=== PATIENT | female | born 1990 | race American Indian/Alaskan Native ===

== ENCOUNTER 2021-09-24 12:05 | Inpatient (IN) | payer SELFPAY ==
--- NOTE | 2021-09-24 14:33 | Emergency Department Report ---
ED Back Pain/Injury HPI - General Chief Complaint: Abdominal Pain Stated Complaint: ABD PAIN,KIDNEY STONE Time Seen by Provider: 09/24/21 14:24 Source: patient Limitations: No Limitations - History of Present Illness Initial Comments: 31-year-old -Beninese female presents to the emergency room reporting she has a kidney stone. Patient complains of allover body aches, headache, chills, lower back pain the worst nausea vomiting x1 day. Patient has not recently checked for Covid last Covid negative test was 3 weeks ago. Patient is not vaccinated. She denies any hematuria. She has a past medical history of hypertension is currently on hydrochlorothiazide 25 mg. She has no known drug allergies. MD Complaint: back pain Onset/Timin -: days(s) Similar Symptoms Previously: Yes (when she has a kidney stone. ) Severity scale (0 -10): 9 Quality: sharp, stabbing Consistency: constant Improves With: none Worsens With: movement Associated Symptoms: headaches, abdominal pain, nausea/vomiting, other (Myalgia) - Related Data Allergies Allergy/AdvReac Type Severity Reaction Status Date / Time No Known Allergies Allergy Verified 09/24/21 12:21 ED Review of Systems ROS: Stated complaint: ABD PAIN,KIDNEY STONE Other details as noted in HPI Comment: All other systems reviewed and negative Gastrointestinal: abdominal pain, nausea, vomiting ED Physical Exam - General Limitations: No Limitations General appearance: alert, in distress - Head Head exam: Present: atraumatic, normocephalic - Eye Eye exam: Present: normal appearance - ENT ENT exam: Present: mucous membranes moist - Neck Neck exam: Present: normal inspection - Respiratory Respiratory exam: Absent: respiratory distress, accessory muscle use - Cardiovascular Cardiovascular Exam: Present: tachycardia - GI/Abdominal GI/Abdominal exam: Present: soft, tenderness (Right lower quadrant), guarding, normal bowel sounds - Extremities Exam Extremities exam: Present: normal inspection, full ROM - Back Exam Back exam: Present: normal inspection - Neurological Exam Neurological exam: Present: alert, oriented X3, normal gait - Psychiatric Psychiatric exam: Present: normal affect, normal mood - Skin Skin exam: Present: warm, dry, intact, normal color. Absent: rash ED Course Vital Signs 09/24/21 12:20 Temperature 98.0 F Pulse Rate 118 H Respiratory 18 Rate Blood Pressure 109/71 O2 Sat by Pulse 99 Oximetry - Consultations Consultation #1: 02/18/22 18:[address] Huddleston regarding patient's condition of having diverticulitis with abscess. She states place patient n.p.o. recheck vitals start her on Zosyn admit her to the hospital consult her in the system. Consultation #2: 09/24/21 18:[address] Howell hospitalist regarding patient needing to be admitted. ED Medical Decision Making - Lab Data Result diagrams: 09/24/21 14:58 09/24/21 14:58 - Radiology Data Radiology results: report reviewed [facility] [address] [place] [address] Cat Scan Report Signed Patient: TYREE DE LA TORRE MR#: [id number] : 1990 Acct:[id number] Age/Sex: 31 / F ADM Date: 09/24/21 Loc: ED Attending Dr: Ordering Physician: RICH MARION Date of Service: 09/24/21 Procedure(s): CT abdomen pelvis w con Accession Number(s): [id number] cc: RICH MARION CT ABDOMEN AND PELVIS WITH CONTRAST INDICATION / CLINICAL INFORMATION: abd pain. TECHNIQUE: Axial CT images were obtained through the abdomen and pelvis after 95 mL Omnipaque [address] scans at this location are performed using CT dose reduc tion for ALARA by means of automated exposure control. COMPARISON: None available. FINDINGS: LOWER CHEST: No significant abnormality. LIVER: Mildly enlarged and hypodense GALLBLADDER: No significant abnormality. BILE DUCTS: No significant abnormality. PANCREAS: No significant abnormality. SPLEEN: No significant abnormality. ADRENALS: Right adrenal mass measuring 3.6 x 3.2 x 2.9 cm and 36 Hounsfield units. Left adrenal appears normal. RIGHT KIDNEY / URETER: 2 mm nonobstructing intrarenal stone. No ureteral stone or hydronephrosis. LEFT KIDNEY / URETER: No significant abnormality. STOMACH / SMALL BOWEL: No significant abnormality. COLON: Colonic diverticulosis. There is moderate thickening and pericolonic inflammation involving the descending colon characteristic of diverticulitis. There is a peridiverticular abscess along the posterior lateral portion of the distal descending colon adjacent to the pelvic sidewall. This collection measures 3.5 x 2.3 x 4.7 cm best seen on axial series 2 image 112 and coronal series 601 image 62. There is moderate strandy inflammation along the left retroperitoneum along the lateroconal fascia. APPENDIX: Not visualized. PERITONEUM: No free fluid. No free air. No fluid collection. LYMPH NODES: No significant adenopathy. AORTA / ARTERIES: No significant abnormality. IVC / VEINS: No significant abnormality. URINARY BLADDER: No significant abnormality. REPRODUCTIVE ORGANS: Enlarged uterus containing several exophytic fibroids. Small physiologic cyst of the left ovary. ADDITIONAL FINDINGS: None. SKELETAL SYSTEM: No significant abnormality. IMPRESSION: 1. Distal descending colon diverticulitis with peridiverticular abscess. No free air. 2. Right adrenal mass which does not meet imaging criteria for adrenal adenoma. Follow-up CT or MRI without and with contrast using adrenal protocol is recommended. 3. Mild hepatic steatosis. 4. Right nephrolithiasis. Signer Name: Yaneli Echavarria MD Signed: 09/24/2021 5:28 PM Workstation Name: [id number] Transcribed By: DT Dictated By: Ryne Echavarria MD Electronically Authenticated By: Ryne Echavarria MD Signed Date/Time: 09/24/211727 DD/ 20 TD/TT: - Medical Decision Making 31-year-old -Ben[place] female presents to the emergency room reporting she has a kidney stone. Patient complains of allover body aches, headache, chills, lower back pain the worst nausea vomiting x1 day. Patient has not recently checked for Covid last Covid negative test was 3 weeks ago. Patient is not vaccinated. She denies any hematuria. She has a past medical history of hypertension is currently on hydrochlorothiazide 25 mg. She has no known drug allergies. CT abdomen with contrast, chest x-ray, CBC CMP urinalysis. Chest x-ray is negative, CT shows diverticulitis with abscess no free air, right nephrolithiasis, right adrenal mass, fibroids multiple. Spoke to Dr. Huddleston she agreeing to place patient on Zosyn n.p.o. repeated vitals which was 98/59 heart rate 108 temp 98.3 respirations 18 and oxygen 99% on room air. My attending Dr. Goodson came to evaluate patient as well. Critical care attestation.: If time is entered above; I have spent that time in minutes in the direct care of this critically ill patient, excluding procedure time. ED Disposition Clinical Impression: Diverticulitis, Right adrenal mass, Right nephrolithiasis, Colonic diverticular abscess Disposition: 02 [facility]ORT TERM HOSPITAL Is pt being admited?: Yes Does the pt Need Aspirin: No Condition: Stable Instructions: Abdominal Pain (ED) Referrals: PRIMARY CARE, [Primary Care Provider] - 3-5 Days Time of Disposition: 18:15
[2021-09-24] MEDS ORDERED: KETOROLAC 30 MG/1 ML INJ IV ONE (14:42)
[2021-09-24] MEDS ORDERED: ONDANSETRON 4 MG/2 ML INJ IV ONE ×2 (14:42→17:09)
[2021-09-24] MEDS ORDERED: SODIUM CHLORIDE 0.9% 1000 ML 1,000 ML IV ONE (14:42)
[2021-09-24 15:07] LABS: Hemoglobin 11.1 gm/dl (10.1-14.3); Mean Corpuscular HGB Conc 33 % (30-34); Mean Corpuscular Volume 86 fl (79-97); Platelet Count 535 K/mm3 (140-440); Red Blood Count 3.97 M/mm3 (3.65-5.03); Red Cell Distribution Width 15.1 % (13.2-15.2)
[2021-09-24 15:11] LABS: HCG Qualitative,Urine Negative (Negative)
[2021-09-24 15:32] LABS: Alanine Aminotransferase 17 units/L (7-56); Albumin 3.3 g/dL (3.9-5); BUN/Creatinine Ratio 14; Blood Urea Nitrogen 10 mg/dL (7-17); Calcium 9.1 mg/dL (8.4-10.2); Hemolysis Index 3
[2021-09-24 15:59] LABS: Bilirubin,Urine NEG (Negative); Blood,Urine NEG (Negative); Color,Urine Yellow (Yellow); Urobilinogen,Urine < 2.0 mg/dL (<2.0)
[2021-09-24] MEDS ORDERED: LACTATED RINGERS 1,000 ML IV ONE (16:29)
--- NOTE | 2021-09-24 16:55 | XRay Report ---
CHEST 2 VIEWS INDICATION / CLINICAL INFORMATION: sob, cough and rales. COMPARISON: None available. FINDINGS: SUPPORT DEVICES: None. HEART / MEDIASTINUM: No significant abnormality. LUNGS / PLEURA: No significant pulmonary or pleural abnormality. No pneumothorax. ADDITIONAL FINDINGS: No significant additional findings. IMPRESSION: 1. No acute findings. Signer Name: Yaneli Echavarria MD Signed: 09/24/2021 4:50 PM Workstation Name: [id number]
[2021-09-24] MEDS ORDERED: MORPHINE 4 MG/1 ML INJ IV ONE (17:09)
--- NOTE | 2021-09-24 17:32 | Cat Scan Report ---
CT ABDOMEN AND PELVIS WITH CONTRAST INDICATION / CLINICAL INFORMATION: abd pain. TECHNIQUE: Axial CT images were obtained through the abdomen and pelvis after 95 mL Omnipaque [address] scans at this location are performed using CT dose reduction for ALARA by means of automated exposure control. COMPARISON: None available. FINDINGS: LOWER CHEST: No significant abnormality. LIVER: Mildly enlarged and hypodense GALLBLADDER: No significant abnormality. BILE DUCTS: No significant abnormality. PANCREAS: No significant abnormality. SPLEEN: No significant abnormality. ADRENALS: Right adrenal mass measuring 3.6 x 3.2 x 2.9 cm and 36 Hounsfield units. Left adrenal appea rs normal. RIGHT KIDNEY / URETER: 2 mm nonobstructing intrarenal stone. No ureteral stone or hydronephrosis. LEFT KIDNEY / URETER: No significant abnormality. STOMACH / SMALL BOWEL: No significant abnormality. COLON: Colonic diverticulosis. There is moderate thickening and pericolonic inflammation involving th e descending colon characteristic of diverticulitis. There is a peridiverticular abscess along the po sterior lateral portion of the distal descending colon adjacent to the pelvic sidewall. This collecti on measures 3.5 x 2.3 x 4.7 cm best seen on axial series 2 image 112 and coronal series 601 image 62. There is moderate strandy inflammation along the left retroperitoneum along the lateroconal fascia. APPENDIX: Not visualized. PERITONEUM: No free fluid. No free air. No fluid collection. LYMPH NODES: No significant adenopathy. AORTA / ARTERIES: No significant abnormality. IVC / VEINS: No significant abnormality. URINARY BLADDER: No significant abnormality. REPRODUCTIVE ORGANS: Enlarged uterus containing several exophytic fibroids. Small physiologic cyst of the left ovary. ADDITIONAL FINDINGS: None. SKELETAL SYSTEM: No significant abnormality. IMPRESSION: 1. Distal descending colon diverticulitis with peridiverticular abscess. No free air. 2. Right adrenal mass which does not meet imaging criteria for adrenal adenoma. Follow-up CT or MRI w ithout and with contrast using adrenal protocol is recommended. 3. Mild hepatic steatosis. 4. Right nephrolithiasis. Signer Name: Yaneli Echavarria MD Signed: 09/24/2021 5:28 PM Workstation Name: [id number]
[2021-09-24 17:42] LABS: Mucus,Urine FEW /HPF
[2021-09-24] MEDS ORDERED: PIPERACILLIN/TAZOBACTAM 3.375 3.375 GM/50 ML BAG IV ONE (18:03)
[2021-09-24] MEDS ORDERED: ACETAMINOPHEN 325 MG TAB PO PRN (18:07)
[2021-09-24] MEDS ORDERED: HYDROmorphone 1 MG/1 ML INJ IV PRN (18:07)
[2021-09-24] MEDS ORDERED: ALBUTEROL 2.5 MG/3 ML NEBU IH PRN (18:07)
[2021-09-24] MEDS ORDERED: oxyCODONE /ACETAMINOPHEN 5-325MG TAB PO PRN (18:07)
[2021-09-24] MEDS ORDERED: SODIUM CHLORIDE 0.9% 1000 ML IV SOLN IV ONE (18:07)
--- NOTE | 2021-09-24 18:12 | History and Physical Report ---
History of Present Illness Chief complaint: I am hurting History of present illness: 31 YO Female with Obesity, Nephrolithiasis presents ED for evaluation. Patient reports "I'm hurting". Patient states that she has experienced abdominal pain, lower back pain, nausea, and multiple episodes of vomiting over the past 1 day. Patient transported to [facility] via private vehicle for further care and evaluation of the aforementioned symptoms. The patient was seen and evaluated in the emergency department. All lab and imaging studies reviewed. Patient underwent CT scan of the abdomen and pelvis and was found to have acute diverticulitis complicated by sepsis. Patient admitted to medical floor and initiated on sepsis protocol. Surgery team consulted in ED. Patient denies fever, chills, chest pain, palpitation, productive cough, skin rash, recent ill contacts, ingestion of food/water from new or different sources, or known exposure to COVID-19. No prior admission for review. No medication listed at time of admission for reconciliation. Advanced care planning conducted in ED. Past History Past Medical History: other (See HPI) Past Surgical History: No surgical history, Other (Reviewed) Social history: single. denies: smoking, alcohol abuse, prescription drug abuse Family history: hypertension Medications and Allergies Allergies Allergy/AdvReac Type Severity Reaction Status Date / Time No Known Allergies Allergy Verified 09/24/21 12:21 Active Meds: Active Medications Acetaminophen (Acetaminophen 325 Mg Tab) 650 mg PO Q4H PRN PRN Reason: Pain MILD(1-3)/Fever >100.5/BERG Acetaminophen (Acetaminophen 325 Mg Tab) 650 mg PO Q6H PRN PRN Reason: Pain, Mild (1-3) Albuterol (Albuterol 2.5 Mg/3 Ml Nebu) 2.5 mg IH Q4HRT PRN PRN Reason: Shortness Of Breath Hydromorphone HCl (Hydromorphone 1 Mg/1 Ml Inj) 0.25 mg IV Q4H PRN PRN Reason: Pain, Moderate (4-6) Hydromorphone HCl (Hydromorphone 1 Mg/1 Ml Inj) 0.5 mg IV Q8H PRN PRN Reason: Pain , Severe (7-10) Piperacillin Sod/Tazobactam Sod (Zosyn/Ns 3.375gm/50ml) 3.375 gm in 50 mls @ 100 mls/hr IV ONCE ONE; Protocol Stop: 09/24/21 18:32 Cefepime HCl (Cefepime/Ns 2 Gm/100 Ml) 2 gm in 100 mls @ 200 mls/hr IV Q8H JAZ; Protocol Metronidazole (Flagyl 500 Mg/100 Ml) 500 mg in 100 mls @ 100 mls/hr IV Q8H JAZ; Protocol Sodium Chloride (Nacl 0.9% 1000 Ml) 3,000 mls @ 135 mls/hr IV DIRECT JAZ Ondansetron HCl (Ondansetron 4 Mg/2 Ml Inj) 4 mg IV Q8H PRN PRN Reason: Nausea And Vomiting Oxycodone/Acetaminophen (Oxycodone /Acetaminophen 5-325mg Tab) 1 tab PO Q6H PRN PRN Reason: Pain, Moderate (4-6) Sodium Chloride (Sodium Chloride 0.9% 10 Ml Flush Syringe) 10 ml IV BID JAZ Sodium Chloride (Sodium Chloride 0.9% 10 Ml Flush Syringe) 10 ml IV PRN PRN PRN Reason: LINE FLUSH Sodium Chloride (Sodium Chloride 0.9% 1000 Ml Iv Soln) 2,720 ml 30 ml/kg (2720 ml) IV ONCE ONE Stop: 09/24/21 18:08 Review of Systems Constitutional: no weight loss, no weight gain, no fever, no chills Ears, nose, mouth and throat: no ear pain, no ear discharge, no decreased hearing, no nose pain, no nasal discharge Breasts: no change in shape, no swelling, no mass Cardiovascular: no chest pain, no orthopnea, no palpitations, no edema Respiratory: no cough, no cough with sputum, no excessive sputum, no hemoptysis Gastrointestinal: abdominal pain, nausea, vomiting, no BRBPR, no hematochezia, no early satiety Genitourinary Female: no pelvic pain, no flank pain, no dysuria, no urinary frequency, no urgency Rectal: no pain, no incontinence, no bleeding Musculoskeletal: low back pain, no neck stiffness, no shooting arm pain, no arm numbness/tingling Integumentary: no rash, no pruritis, no sores Neurological: no head injury, no paralysis, no weakness, no numbness, no seizures, no syncope Psychiatric: no anxiety, no memory loss, no sleep disturbances, no hypersomnia, no change in appetite, no change in libido Endocrine: no cold intolerance, no heat intolerance, no polydipsia, no nocturia Hematologic/Lymphatic: no easy bruising, no easy bleeding Allergic/Immunologic: no wheezing Exam - Constitutional Vitals: Temp Pulse Resp BP Pulse Ox 98.3 F 108 H 18 98/59 99 09/24/21 18:00 09/24/21 18:00 09/24/21 18:00 09/24/21 18:00 09/24/21 18:00 General appearance: Present: mild distress, obese - EENT Eyes: Present: PERRL ENT: hearing intact, clear oral mucosa - Neck Neck: Present: supple, normal ROM - Respiratory Respiratory effort: normal Respiratory: bilateral: CTA - Cardiovascular Rhythm: other (Tachycardia) Heart Sounds: Present: S1 & S2. Absent: rub, click - Extremities Extremities: pulses symmetrical, No edema Peripheral Pulses: abnormal (Capillary refill greater than 3.5 seconds) - Abdominal General gastrointestinal: Present: soft, non-tender, non-distended, normal bowel sounds Female genitourinary: Present: normal - Integumentary Integumentary: Present: clear, warm, dry - Musculoskeletal Musculoskeletal: gait normal, strength equal bilaterally - Psychiatric Psychiatric: appropriate mood/affect, intact judgment & insight - Neurologic Neurologic: CNII-XII intact, moves all extremities Results - Labs CBC & Chem 7: 09/24/21 14:58 09/24/21 14:58 Labs: Abnormal lab results 09/24/21 09/24/21 09/24/21 Range/Units 14:49 14:58 14:58 WBC 32.4 H (4.5-11.0) K/mm3 Plt Count 535 H (140-440) K/mm3 Sodium 134 L (137-145) mmol/L Potassium 3.5 L (3.6-5.0) mmol/L Chloride 97.6 L (98-107) mmol/L Glucose 119 H (65-100) mg/dL Total Protein 6.1 L (6.3-8.2) g/dL Albumin 3.3 L (3.9-5) g/dL U Epithel Cells (Auto) 18.0 H (0-13.0) /HPF Assessment and Plan - Patient Problems (1) Sepsis Current Visit: Yes Status: Acute Plan to address problem: Sepsis protocol: IV fluid resuscitation therapy, IV antibiotic therapy, CT scan abdomen pelvis, serial lactic acid level, blood culture, maintain mean arterial pressure greater than 65, monitor fluid balance. (2) Obesity hypoventilation syndrome Current Visit: Yes Status: Acute Plan to address problem: Balanced diet, increase physical activity discharge, incentive spirometry, pulmonary toilet. (3) Colonic diverticular abscess Current Visit: Yes Status: Acute Plan to address problem: Surgery team consulted, IV antibiotic therapy, further care and evaluation as per surgical team. (4) DVT prophylaxis Current Visit: Yes Status: Acute Plan to address problem: SCDs bilateral lower extremities while in bed (5) Advance care planning Current Visit: Yes Status: Acute Plan to address problem: Disease education conducted, care plan discussed, diagnoses discussed, prognosis discussed, patient is full code. Patient knowledges understanding and agreement with care plan, +30 minutes.
[2021-09-24 18:36] LABS: Band Neutrophils # (Manual) 3.6 K/mm3; Basophils % (Manual) 0 % (0.0-1.8); Eosinophils % (Manual) 0 % (0.0-4.3); Platelet Estimate Consistent w Auto; RBC Morphology Normal; Total Cells Counted 100
[2021-09-24] MEDS: metroNIDAZOLE/NS 500 MG/100 ML 500 MG/100 ML BAG IV SCH (18:39)
[2021-09-24] MEDS: CEFEPIME/NS 2 GM/100 ML 2 GM/100 ML BAG IV SCH (18:39)
[2021-09-24] MEDS: HYDROmorphone 1 MG/1 ML INJ IV PRN (19:54)
[2021-09-24] MEDS: ONDANSETRON 4 MG/2 ML INJ IV PRN (20:14)
[2021-09-25] MEDS: SODIUM CHLORIDE 0.9% 1000 ML 3,000 ML IV SCH (01:14)
[2021-09-25] MEDS ORDERED: METOCLOPRAMIDE 10 MG/2 ML INJ IV ONE (01:38)
[2021-09-25] MEDS: CEFEPIME/NS 2 GM/100 ML 2 GM/100 ML BAG IV SCH ×3 (02:26→20:14)
[2021-09-25] MEDS: metroNIDAZOLE/NS 500 MG/100 ML 500 MG/100 ML BAG IV SCH ×3 (03:01→19:59)
[2021-09-25] MEDS: HYDROmorphone 1 MG/1 ML INJ IV PRN ×5 (03:52→20:17)
[2021-09-25 06:13] LABS: Hematocrit 30.4 % (30.3-42.9); Hemoglobin 10.1 gm/dl (10.1-14.3); Mean Corpuscular HGB Conc 33 % (30-34); Mean Corpuscular Volume 86 fl (79-97); Platelet Count 466 K/mm3 (140-440); Red Blood Count 3.54 M/mm3 (3.65-5.03); Red Cell Distribution Width 15.1 % (13.2-15.2)
[2021-09-25 06:29] LABS: Blood Urea Nitrogen 9 mg/dL (7-17); Calcium 7.8 mg/dL (8.4-10.2); Hemolysis Index 0
[2021-09-25 06:40] LABS: BUN/Creatinine Ratio 13
--- NOTE | 2021-09-25 08:24 | Progress Note ---
Assessment and Plan Assessment and plan: #Sepsis #Diverticulitis with abscess #Peritonitis -CT abd/pelvis showed diverticulitis with abscess -continue cefepime and flagyl -Surgery consulted, assistance appreciated -NPO, IVFs, PRN pain medications -plan for medical management for now with IV abx with plan for surgical vs IR intervention on Monday, if patient acutely worsens, will plan for surgical intervention sooner as discussed with Dr. Huddleston #Volume depletion -likely 2/2 to poor PO intake due to abdominal pain and vomiting -continue IVFs #Hypokalemia -likely 2/2 to vomiting -will monitor and replete #Advance care planning -Disease education conducted, care plan discussed, diagnoses discussed, prognosis discussed, patient is full code. Patient knowledges understanding and agreement with care plan, +30 minutes. History Interval history: No acute vents overnight. Patient continues to have abdominal pain that is relieved with as needed pain meds. Also endorses vomiting earlier this morning. Has no other complaints at this time. Hospitalist Physical - Physical exam Narrative exam: GENERAL: Well-developed well-nourished. In no acute distress. HEENT: Normocephalic. Atraumatic. CHEST/LUNGS: CTAB on room air HEART/CARDIOVASCULAR: RRR. No murmur, rubs or gallops appreciated. ABDOMEN: +BS. ND. Mildly tender to palpation at bilateral lower quadrants. SKIN: No rashes noted. NEURO: No focal motor deficit. Follows all commands. MUSCULOSKELETAL: No joint effusion EXTREMITIES: No cyanosis, clubbing or edema. PSYCH: Cooperative. - Constitutional Vitals: Temp Pulse Resp BP Pulse Ox 97.3 F L 73 13 107/68 97 09/24/21 19:40 09/24/21 19:40 09/24/21 19:40 09/24/21 19:40 09/25/21 01:22 General appearance: Present: mild distress, obese Results - Labs CBC & Chem 7: 09/25/21 05:47 09/25/21 05:47 Labs: Laboratory Last Values WBC 25.4 K/mm3 (4.5-11.0) H 09/25/21 05:47 RBC 3.54 M/mm3 (3.65-5.03) L 09/25/21 05:47 Hgb 10.1 gm/dl (10.1-14.3) 09/25/21 05:47 Hct 30.4 % (30.3-42.9) 09/25/21 05:47 MCV 86 fl (79-97) 09/25/21 05:47 MCH 29 pg (28-32) 09/25/21 05:47 MCHC 33 % (30-34) 09/25/21 05:47 RDW 15.1 % (13.2-15.2) 09/25/21 05:47 Plt Count 466 K/mm3 (140-440) H 09/25/21 05:47 Add Manual Diff Complete 09/24/21 14:58 Total Counted 100 09/24/21 14:58 Seg Neutrophils % [employer] 09/25/21 05:47 Seg Neuts % (Manual) 82.0 % (40.0-70.0) H 09/24/21 14:58 Band Neutrophils % 11.0 % 09/24/21 14:58 Lymphocytes % (Manual) 2.0 % (13.4-35.0) L 09/24/21 14:58 Reactive Lymphs % (Man) 0 % 09/24/21 14:58 Monocytes % (Manual) 5.0 % (0.0-7.3) 09/24/21 14:58 Eosinophils % (Manual) 0 % (0.0-4.3) 09/24/21 14:58 Basophils % (Manual) 0 % (0.0-1.8) 09/24/21 14:58 Metamyelocytes % 0 % 09/24/21 14:58 Myelocytes % 0 % 09/24/21 14:58 Promyelocytes % 0 % 09/24/21 14:58 Blast Cells % 0 % 09/24/21 14:58 Nucleated RBC % Not Reportable 09/24/21 14:58 Seg Neutrophils # Man 26.6 K/mm3 (1.8-7.7) H 09/24/21 14:58 Band Neutrophils # 3.6 K/mm3 09/24/21 14:58 Lymphocytes # (Manual) 0.6 K/mm3 (1.2-5.4) L 09/24/21 14:58 Abs React Lymphs (Man) 0.0 K/mm3 09/24/21 14:58 Monocytes # (Manual) 1.6 K/mm3 (0.0-0.8) H 09/24/21 14:58 Eosinophils # (Manual) 0.0 K/mm3 (0.0-0.4) 09/24/21 14:58 Basophils # (Manual) 0.0 K/mm3 (0.0-0.1) 09/24/21 14:58 Metamyelocytes # 0.0 K/mm3 09/24/21 14:58 Myelocytes # 0.0 K/mm3 09/24/21 14:58 Promyelocytes # 0.0 K/mm3 09/24/21 14:58 Blast Cells # 0.0 K/mm3 09/24/21 14:58 Hypersegmented Neuts Not Reportable 09/24/21 14:58 Hyposegmented Neuts Not Reportable 09/24/21 14:58 Hypogranular Neuts Not Reportable 09/24/21 14:58 Smudge Cells Not Reportable 09/24/21 14:58 Toxic Granulation Not Reportable 09/24/21 14:58 Toxic Vacuolation Not Reportable 09/24/21 14:58 Dohle Bodies Not Reportable 09/24/21 14:58 Pelger-Huet Anomaly Not Reportable 09/24/21 14:58 Marlene Rods Not Reportable 09/24/21 14:58 Platelet Estimate Consistent w auto 09/24/21 14:58 Clumped Platelets Not Reportable 09/24/21 14:58 Plt Clumps, EDTA Not Reportable 09/24/21 14:58 Large Platelets Not Reportable 09/24/21 14:58 Giant Platelets Not Reportable 09/24/21 14:58 Platelet Satelliting Not Reportable 09/24/21 14:58 Plt Morphology Comment Not Reportable 09/24/21 14:58 RBC Morphology Normal 09/24/21 14:58 Dimorphic RBCs Not Reportable 09/24/21 14:58 Polychromasia Not Reportable 09/24/21 14:58 Hypochromasia Not Reportable 09/24/21 14:58 Poikilocytosis Not Reportable 09/24/21 14:58 Anisocytosis Not Reportable 09/24/21 14:58 Microcytosis Not Reportable 09/24/21 14:58 Macrocytosis Not Reportable 09/24/21 14:58 Spherocytes Not Reportable 09/24/21 14:58 Pappenheimer Bodies Not Reportable 09/24/21 14:58 Sickle Cells Not Reportable 09/24/21 14:58 Target Cells Not Reportable 09/24/21 14:58 Tear Drop Cells Not Reportable 09/24/21 14:58 Ovalocytes Not Reportable 09/24/21 14:58 Helmet Cells Not Reportable 09/24/21 14:58 [place] Bodies Not Reportable 09/24/21 14:58 [place] Rings Not Reportable 09/24/21 14:58 [place] Cells Not Reportable 09/24/21 14:58 Bite Cells Not Reportable 09/24/21 14:58 Crenated Cell Not Reportable 09/24/21 14:58 Elliptocytes Not Reportable 09/24/21 14:58 Acanthocytes (Spur) Not Reportable 09/24/21 14:58 Rouleaux Not Reportable 09/24/21 14:58 Hemoglobin C Crystals Not Reportable 09/24/21 14:58 Schistocytes Not Reportable 09/24/21 14:58 Malaria parasites Not Reportable 09/24/21 14:58 Flaco Bodies Not Reportable 09/24/21 14:58 Hem Pathologist Commnt Sent to pathology 09/24/21 14:58 Sodium 136 mmol/L (137-145) L 09/25/21 05:47 Potassium 3.0 mmol/L (3.6-5.0) L 09/25/21 05:47 Chloride 104.9 mmol/L (98-107) 09/25/21 05:47 Carbon Dioxide 21 mmol/L (22-30) L 09/25/21 05:47 Anion Gap 13 mmol/L 09/25/21 05:47 BUN 9 mg/dL (7-17) 09/25/21 05:47 Creatinine 0.7 mg/dL (0.6-1.2) 09/25/21 05:47 Estimated GFR > 60 ml/min 09/25/21 05:47 BUN/Creatinine Ratio 13 % 09/25/21 05:47 Glucose 96 mg/dL (65-100) 09/25/21 05:47 Lactic Acid 1.00 mmol/L (0.7-2.0) 09/24/21 21:54 Calcium 7.8 mg/dL (8.4-10.2) L 09/25/21 05:47 Total Bilirubin 0.60 mg/dL (0.1-1.2) 09/24/21 14:58 AST 16 units/L (5-40) 09/24/21 14:58 ALT 17 units/L (7-56) 09/24/21 14:58 Alkaline Phosphatase 83 units/L (35-129) 09/24/21 14:58 Total Protein 6.1 g/dL (6.3-8.2) L 09/24/21 14:58 Albumin 3.3 g/dL (3.9-5) L 09/24/21 14:58 Albumin/Globulin Ratio 1.2 % 09/24/21 14:58 Urine Color Yellow (Yellow) 09/24/21 14:49 Urine Turbidity Slightly-cloudy (Clear) 09/24/21 14:49 Urine pH 6.0 (5.0-7.0) 09/24/21 14:49 Ur Specific [place] 1.017 (1.003-1.030) 09/24/21 14:49 Urine Protein 30 mg/dl mg/dL (Negative) 09/24/21 14:49 Urine Glucose (UA) Neg mg/dL (Negative) 09/24/21 14:49 Urine Ketones Neg mg/dL (Negative) 09/24/21 14:49 Urine Blood Neg (Negative) 09/24/21 14:49 Urine Nitrite Neg (Negative) 09/24/21 14:49 Ur Reducing Substances Not Reportable 09/24/21 14:49 Urine Bilirubin Neg (Negative) 09/24/21 14:49 Urine Ictotest Not Reportable 09/24/21 14:49 Urine Urobilinogen < 2.0 mg/dL (<2.0) 09/24/21 14:49 Ur Leukocyte Esterase Neg (Negative) 09/24/21 14:49 Urine WBC (Auto) 4.0 /HPF (0.0-6.0) 09/24/21 14:49 Urine RBC (Auto) 2.0 /HPF (0.0-6.0) 09/24/21 14:49 U Epithel Cells (Auto) 18.0 /HPF (0-13.0) H 09/24/21 14:49 Urine Mucus Few /HPF 09/24/21 14:49 Urine HCG, Qual Negative (Negative) 09/24/21 14:49 Microbiology: Microbiology 09/24/21 19:03 Peripheral/Venous Blood Culture - Preliminary Culture in Progress 09/24/21 19:03 Peripheral/Venous Blood Culture - Preliminary Culture in Progress Doss/IV: Voiding Method Toilet Active Medications - Current Medications Current Medications: Generic Name Dose Route Start Last Admin Trade Name Freq PRN Reason Stop Dose Admin Acetaminophen 650 mg 09/24/21 18:07 Acetaminophen 325 Mg Tab PO Q4H PRN Pain MILD(1-3)/Fever >100.5/BERG Acetaminophen 650 mg 09/24/21 18:07 09/25/21 01:14 Acetaminophen 325 Mg Tab PO 650 mg Q6H PRN Administration Pain, Mild (1-3) Albuterol 2.5 mg 09/24/21 18:07 Albuterol 2.5 Mg/3 Ml Nebu IH Q4HRT PRN Shortness Of Breath Hydromorphone HCl 0.25 mg 09/24/21 18:07 Hydromorphone 1 Mg/1 Ml Inj IV Q4H PRN Pain, Moderate (4-6) Hydromorphone HCl 0.5 mg 09/24/21 18:07 09/25/21 03:52 Hydromorphone 1 Mg/1 Ml Inj IV 0.5 mg Q8H PRN Administration Pain , Severe (7-10) Cefepime HCl 2 gm in 100 mls @ 200 mls/hr 09/24/21 19:00 09/25/21 02:26 Cefepime/Ns 2 Gm/100 Ml IV 200 mls/hr Q8H JAZ Administration Protocol Metronidazole 500 mg in 100 mls @ 100 mls/hr 09/24/21 19:00 09/25/21 03:01 Flagyl 500 Mg/100 Ml IV 100 mls/hr Q8H JAZ Administration Protocol Sodium Chloride 3,000 mls @ 135 mls/hr 09/24/21 18:15 09/25/21 01:14 Nacl 0.9% 1000 Ml IV 135 mls/hr DIRECT JAZ Administration Ondansetron HCl 4 mg 09/24/21 18:07 09/24/21 20:14 Ondansetron 4 Mg/2 Ml Inj IV 4 mg Q8H PRN Administration Nausea And Vomiting Sodium Chloride 10 ml 09/24/21 22:00 09/24/21 23:33 Sodium Chloride 0.9% 10 Ml Flush Syringe IV 10 ml BID JAZ Administration Sodium Chloride 10 ml 09/24/21 18:07 Sodium Chloride 0.9% 10 Ml Flush Syringe IV PRN PRN LINE FLUSH
[2021-09-25] MEDS: ONDANSETRON 4 MG/2 ML INJ IV PRN ×4 (08:33→20:18)
[2021-09-25 08:35] LABS: Band Neutrophils # (Manual) 0.8 K/mm3; Basophils % (Manual) 0 % (0.0-1.8); Eosinophils % (Manual) 0 % (0.0-4.3); Monocytes % (Manual) 0 % (0.0-7.3); Total Cells Counted 100
[2021-09-25 08:36] LABS: Dohle Bodies Rare; Platelet Estimate Consistent w Auto; RBC Morphology Normal; Toxic Granulation 1+
--- NOTE | 2021-09-25 11:11 | Consultation ---
History of Present Illness Consult date: 09/25/21 Reason for consult: abdominal pain - History of present illness History of present illness: 31-year-old female presented to the emergency room yesterday with a 1 to 2-day history of severe abdominal pain but she says over the last 2 weeks she has noticed having some abdominal pain left side that she attributed to exercise and possibly kidney stone. She had some nausea and vomiting, she had a CAT scan in the emergency department that showed a pericolonic abscess lateral to the sigmoid colon with diverticular disease suggestive of perforated diverticulitis that is presently contained. There was no free air or fluid. Patient says her pain is 8-9 out of 10 and is about the same as yesterday. Pain is exacerbated by movement, and relieved with rest. Patient says she had a colonoscopy about 3 months ago for the work-up of abdominal bloating, which per what she can remember is there were no abnormalities. Past History Past Medical History: other (See HPI) Past Surgical History: No surgical history, Other (Reviewed) Social history: single. denies: smoking, alcohol abuse, prescription drug abuse Family history: hypertension Medications and Allergies Allergies Allergy/AdvReac Type Severity Reaction Status Date / Time No Known Allergies Allergy Verified 09/24/21 12:21 Active Meds: Active Medications Acetaminophen (Acetaminophen 325 Mg Tab) 650 mg PO Q4H PRN PRN Reason: Pain MILD(1-3)/Fever >100.5/BERG Albuterol (Albuterol 2.5 Mg/3 Ml Nebu) 2.5 mg IH Q4HRT PRN PRN Reason: Shortness Of Breath Hydromorphone HCl (Hydromorphone 1 Mg/1 Ml Inj) 1 mg IV Q6H PRN PRN Reason: Pain , Severe (7-10) Hydromorphone HCl (Hydromorphone 1 Mg/1 Ml Inj) 0.5 mg IV Q4H PRN PRN Reason: Pain, Moderate (4-6) Last Admin: 09/25/21 10:05 Dose: 0.5 mg Cefepime HCl (Cefepime/Ns 2 Gm/100 Ml) 2 gm in 100 mls @ 200 mls/hr IV Q8H JAZ; Protocol Last Admin: 09/25/21 02:26 Dose: 200 mls/hr Metronidazole (Flagyl 500 Mg/100 Ml) 500 mg in 100 mls @ 100 mls/hr IV Q8H JAZ; Protocol Last Admin: 09/25/21 03:01 Dose: 100 mls/hr Sodium Chloride (Nacl 0.9% 1000 Ml) 3,000 mls @ 135 mls/hr IV DIRECT JAZ Last Admin: 09/25/21 01:14 Dose: 135 mls/hr Ondansetron HCl (Ondansetron 4 Mg/2 Ml Inj) 4 mg IV Q8H PRN PRN Reason: Nausea And Vomiting Last Admin: 09/25/21 08:33 Dose: 4 mg Sodium Chloride (Sodium Chloride 0.9% 10 Ml Flush Syringe) 10 ml IV BID JAZ Last Admin: 09/24/21 23:33 Dose: 10 ml Sodium Chloride (Sodium Chloride 0.9% 10 Ml Flush Syringe) 10 ml IV PRN PRN PRN Reason: LINE FLUSH Last Admin: 09/25/21 08:34 Dose: 10 ml Review of Systems All systems: negative - Constitutional no fever, no chills - Cardiovascular no chest pain - Respiratory no shortness of breath - Gastrointestinal abdominal pain, nausea, no vomiting, no melena - Genitourinary Genitourinary: flank pain Exam Vital Signs Temp Pulse Resp BP Pulse Ox 98.0 F 118 H 18 109/71 99 09/24/21 12:20 09/24/21 12:20 09/24/21 12:20 09/24/21 12:20 09/24/21 12:20 - General physical appearance Positive: well developed, no distress, severe pain - Eyes Positive: PERRL, normal occular movement - ENT Positive: no hearing loss - Respiratory Positive: normal expansion, normal respiratory effort - Cardiovascular Heart Sounds: Present: S1 & S2 - Extremities Extremities: no ischemia - Abdomen Abdomen: Present: other (Soft, guarding on her left abdomen, very tender to palpation) Results - Labs 09/25/21 05:47 09/25/21 05:47 Abnormal lab results 09/24/21 09/24/21 09/24/21 Range/Units 14:49 14:58 14:58 WBC 32.4 H (4.5-11.0) K/mm3 RBC (3.65-5.03) M/mm3 Plt Count 535 H (140-440) K/mm3 Seg Neuts % (Manual) 82.0 H (40.0-70.0) % Lymphocytes % (Manual) 2.0 L (13.4-35.0) % Seg Neutrophils # Man 26.6 H (1.8-7.7) K/mm3 Lymphocytes # (Manual) 0.6 L (1.2-5.4) K/mm3 Monocytes # (Manual) 1.6 H (0.0-0.8) K/mm3 Sodium 134 L (137-145) mmol/L Potassium 3.5 L (3.6-5.0) mmol/L Chloride 97.6 L (98-107) mmol/L Carbon Dioxide (22-30) mmol/L Glucose 119 H (65-100) mg/dL Calcium (8.4-10.2) mg/dL Total Protein 6.1 L (6.3-8.2) g/dL Albumin 3.3 L (3.9-5) g/dL U Epithel Cells (Auto) 18.0 H (0-13.0) /HPF 09/25/21 09/25/21 Range/Units 05:47 05:47 WBC 25.4 H (4.5-11.0) K/mm3 RBC 3.54 L (3.65-5.03) M/mm3 Plt Count 466 H (140-440) K/mm3 Seg Neuts % (Manual) 93.0 H (40.0-70.0) % Lymphocytes % (Manual) 4.0 L (13.4-35.0) % Seg Neutrophils # Man 23.6 H (1.8-7.7) K/mm3 Lymphocytes # (Manual) 1.0 L (1.2-5.4) K/mm3 Monocytes # (Manual) (0.0-0.8) K/mm3 Sodium 136 L (137-145) mmol/L Potassium 3.0 L (3.6-5.0) mmol/L Chloride (98-107) mmol/L Carbon Dioxide 21 L (22-30) mmol/L Glucose (65-100) mg/dL Calcium 7.8 L (8.4-10.2) mg/dL Total Protein (6.3-8.2) g/dL Albumin (3.9-5) g/dL U Epithel Cells (Auto) (0-13.0) /HPF Diabetes panel 09/24/21 09/25/21 Range/Units 14:58 05:47 Sodium 134 L 136 L (137-145) mmol/L Potassium 3.5 L 3.0 L (3.6-5.0) mmol/L Chloride 97.6 L 104.9 (98-107) mmol/L Carbon Dioxide 24 21 L (22-30) mmol/L BUN 10 9 (7-17) mg/dL Creatinine 0.7 0.7 (0.6-1.2) mg/dL Glucose 119 H 96 (65-100) mg/dL Calcium 9.1 7.8 L (8.4-10.2) mg/dL AST 16 (5-40) units/L ALT 17 (7-56) units/L Alkaline Phosphatase 83 (35-129) units/L Total Protein 6.1 L (6.3-8.2) g/dL Albumin 3.3 L (3.9-5) g/dL Calcium panel 09/24/21 09/25/21 Range/Units 14:58 05:47 Calcium 9.1 7.8 L (8.4-10.2) mg/dL Albumin 3.3 L (3.9-5) g/dL Pituitary panel 09/24/21 09/25/21 Range/Units 14:58 05:47 Sodium 134 L 136 L (137-145) mmol/L Potassium 3.5 L 3.0 L (3.6-5.0) mmol/L Chloride 97.6 L 104.9 (98-107) mmol/L Carbon Dioxide 24 21 L (22-30) mmol/L BUN 10 9 (7-17) mg/dL Creatinine 0.7 0.7 (0.6-1.2) mg/dL Glucose 119 H 96 (65-100) mg/dL Calcium 9.1 7.8 L (8.4-10.2) mg/dL Adrenal panel 09/24/21 09/25/21 Range/Units 14:58 05:47 Sodium 134 L 136 L (137-145) mmol/L Potassium 3.5 L 3.0 L (3.6-5.0) mmol/L Chloride 97.6 L 104.9 (98-107) mmol/L Carbon Dioxide 24 21 L (22-30) mmol/L BUN 10 9 (7-17) mg/dL Creatinine 0.7 0.7 (0.6-1.2) mg/dL Glucose 119 H 96 (65-100) mg/dL Calcium 9.1 7.8 L (8.4-10.2) mg/dL Total Bilirubin 0.60 (0.1-1.2) mg/dL AST 16 (5-40) units/L ALT 17 (7-56) units/L Alkaline Phosphatase 83 (35-129) units/L Total Protein 6.1 L (6.3-8.2) g/dL Albumin 3.3 L (3.9-5) g/dL - Imaging CT scan - abdomen: report reviewed, image reviewed CT scan - pelvis: report reviewed, image reviewed Assessment and Plan 31-year-old female with pericolonic abscess likely due to contained perforated diverticulitis. Localized peritonitis. Afebrile with low-grade tachycardia but stable. Patient has showed improvement in her white blood cell count and heart rate since initiation of fluids and antibiotics. Discussed pathology treatment options and prognosis with patient, from CT-guided drainage, to surgery which could potentially entail sigmoid resection with colostomy. Patient says that ideally she would like the least invasive therapy and if possible would like to wait until Monday or interventional radiology can be consulted. She expressed understanding of the fact that should she decompensate or do worse over the weekend, or upon evaluation tomorrow may need to schedule for diagnostic laparoscopy with possible partial colectomy. Patient can have ice chips will continue n.p.o., antibiotics and fluids.
[2021-09-25] MEDS: ACETAMINOPHEN 325 MG TAB PO PRN (12:19)
[2021-09-25] MEDS: KETOROLAC 30 MG/1 ML INJ IV SCH ×2 (14:37→23:20)
[2021-09-25] MEDS: POTASSIUM CHLORIDE 10 MEQ 10 MEQ/100 ML BAG IV SCH ×4 (20:00→23:16)
[2021-09-26] MEDS: HYDROmorphone 1 MG/1 ML INJ IV PRN ×5 (00:27→20:21)
[2021-09-26] MEDS: POTASSIUM CHLORIDE 10 MEQ 10 MEQ/100 ML BAG IV SCH (01:15)
[2021-09-26] MEDS: CEFEPIME/NS 2 GM/100 ML 2 GM/100 ML BAG IV SCH ×3 (03:55→18:00)
[2021-09-26] MEDS: metroNIDAZOLE/NS 500 MG/100 ML 500 MG/100 ML BAG IV SCH ×4 (03:55→18:00)
[2021-09-26 05:29] LABS: BUN/Creatinine Ratio 16; Blood Urea Nitrogen 11 mg/dL (7-17); Calcium 8.3 mg/dL (8.4-10.2); Hemolysis Index 0
[2021-09-26 05:42] LABS: Hematocrit 37.1 % (30.3-42.9); Hemoglobin 11.8 gm/dl (10.1-14.3); Mean Corpuscular HGB Conc 32 % (30-34); Mean Corpuscular Volume 87 fl (79-97); Platelet Count 486 K/mm3 (140-440); Red Blood Count 4.26 M/mm3 (3.65-5.03); Red Cell Distribution Width 15.1 % (13.2-15.2)
[2021-09-26] MEDS: ONDANSETRON 4 MG/2 ML INJ IV PRN ×2 (06:04→09:40)
[2021-09-26] MEDS: KETOROLAC 30 MG/1 ML INJ IV SCH ×3 (06:05→18:00)
[2021-09-26 07:14] LABS: Band Neutrophils # (Manual) 1.7 K/mm3; Basophils % (Manual) 0 % (0.0-1.8); Eosinophils % (Manual) 0 % (0.0-4.3); Total Cells Counted 100
[2021-09-26 07:15] LABS: Platelet Estimate Consistent w Auto; RBC Morphology Normal
--- NOTE | 2021-09-26 08:16 | Progress Note ---
Assessment and Plan Assessment and plan: #Sepsis #Diverticulitis with abscess #Peritonitis -CT abd/pelvis showed diverticulitis with abscess -continue cefepime and flagyl -Surgery consulted, assistance appreciated -NPO, IVFs, PRN pain medications -plan to go to the OR today #Volume depletion -likely 2/2 to poor PO intake due to abdominal pain and vomiting -continue IVFs #Hypokalemia -likely 2/2 to vomiting -will monitor and replete #Advance care planning -Disease education conducted, care plan discussed, diagnoses discussed, prognosis discussed, patient is full code. Patient knowledges understanding and agreement with care plan, +30 minutes. Disposition Plan: Continue medical management History Interval history: No acute events overnight. Patient continues to have abdominal pain that is relieved with as needed pain meds but quickly returns. Plan to go to the OR for laparotomy today. Hospitalist Physical - Physical exam Narrative exam: GENERAL: Well-developed well-nourished. In no acute distress. HEENT: Normocephalic. Atraumatic. CHEST/LUNGS: CTAB on room air HEART/CARDIOVASCULAR: Tachycardic. No murmur, rubs or gallops appreciated. ABDOMEN: +BS. ND. Mildly tender to palpation at bilateral lower quadrants. NEURO: No focal motor deficit. Follows all commands. MUSCULOSKELETAL: No joint effusion EXTREMITIES: No cyanosis, clubbing or edema. PSYCH: Cooperative. - Constitutional Vitals: Temp Pulse Resp BP Pulse Ox 98.5 F 114 H 18 124/78 96 09/26/21 05:55 09/26/21 05:55 09/26/21 05:55 09/26/21 05:55 09/26/21 05:55 General appearance: Present: mild distress, obese Results - Labs CBC & Chem 7: 09/26/21 04:20 09/26/21 04:20 Labs: Laboratory Last Values WBC 23.6 K/mm3 (4.5-11.0) H 09/26/21 04:20 RBC 4.26 M/mm3 (3.65-5.03) 09/26/21 04:20 Hgb 11.8 gm/dl (10.1-14.3) 09/26/21 04:20 Hct 37.1 % (30.3-42.9) D 09/26/21 04:20 MCV 87 fl (79-97) 09/26/21 04:20 MCH 28 pg (28-32) 09/26/21 04:20 MCHC 32 % (30-34) 09/26/21 04:20 RDW 15.1 % (13.2-15.2) 09/26/21 04:20 Plt Count 486 K/mm3 (140-440) H 09/26/21 04:20 Add Manual Diff Complete 09/26/21 04:20 Total Counted 100 09/26/21 04:20 Seg Neutrophils % Representative 09/26/21 04:20 Seg Neuts % (Manual) 86.0 % (40.0-70.0) H 09/26/21 04:20 Band Neutrophils % 7.0 % 09/26/21 04:20 Lymphocytes % (Manual) 3.0 % (13.4-35.0) L 09/26/21 04:20 Reactive Lymphs % (Man) 0 % 09/26/21 04:20 Monocytes % (Manual) 4.0 % (0.0-7.3) 09/26/21 04:20 Eosinophils % (Manual) 0 % (0.0-4.3) 09/26/21 04:20 Basophils % (Manual) 0 % (0.0-1.8) 09/26/21 04:20 Metamyelocytes % 0 % 09/26/21 04:20 Myelocytes % 0 % 09/26/21 04:20 Promyelocytes % 0 % 09/26/21 04:20 Blast Cells % 0 % 09/26/21 04:20 Nucleated RBC % Not Reportable 09/26/21 04:20 Seg Neutrophils # Man 20.3 K/mm3 (1.8-7.7) H 09/26/21 04:20 Band Neutrophils # 1.7 K/mm3 09/26/21 04:20 Lymphocytes # (Manual) 0.7 K/mm3 (1.2-5.4) L 09/26/21 04:20 Abs React Lymphs (Man) 0.0 K/mm3 09/26/21 04:20 Monocytes # (Manual) 0.9 K/mm3 (0.0-0.8) H 09/26/21 04:20 Eosinophils # (Manual) 0.0 K/mm3 (0.0-0.4) 09/26/21 04:20 Basophils # (Manual) 0.0 K/mm3 (0.0-0.1) 09/26/21 04:20 Metamyelocytes # 0.0 K/mm3 09/26/21 04:20 Myelocytes # 0.0 K/mm3 09/26/21 04:20 Promyelocytes # 0.0 K/mm3 09/26/21 04:20 Blast Cells # 0.0 K/mm3 09/26/21 04:20 WBC Morphology Not Reportable 09/26/21 04:20 Hypersegmented Neuts Not Reportable 09/26/21 04:20 Hyposegmented Neuts Not Reportable 09/26/21 04:20 Hypogranular Neuts Not Reportable 09/26/21 04:20 Smudge Cells Not Reportable 09/26/21 04:20 Toxic Granulation Not Reportable 09/26/21 04:20 Toxic Vacuolation Not Reportable 09/26/21 04:20 Dohle Bodies Not Reportable 09/26/21 04:20 Pelger-Huet Anomaly Not Reportable 09/26/21 04:20 Marlene Rods Not Reportable 09/26/21 04:20 Platelet Estimate Consistent w auto 09/26/21 04:20 Clumped Platelets Not Reportable 09/26/21 04:20 Plt Clumps, EDTA Not Reportable 09/26/21 04:20 Large Platelets Not Reportable 09/26/21 04:20 Giant Platelets Not Reportable 09/26/21 04:20 Platelet Satelliting Not Reportable 09/26/21 04:20 Plt Morphology Comment Not Reportable 09/26/21 04:20 RBC Morphology Normal 09/26/21 04:20 Dimorphic RBCs Not Reportable 09/26/21 04:20 Polychromasia Not Reportable 09/26/21 04:20 Hypochromasia Not Reportable 09/26/21 04:20 Poikilocytosis Not Reportable 09/26/21 04:20 Anisocytosis Not Reportable 09/26/21 04:20 Microcytosis Not Reportable 09/26/21 04:20 Macrocytosis Not Reportable 09/26/21 04:20 Spherocytes Not Reportable 09/26/21 04:20 Pappenheimer Bodies Not Reportable 09/26/21 04:20 Sickle Cells Not Reportable 09/26/21 04:20 Target Cells Not Reportable 09/26/21 04:20 Tear Drop Cells Not Reportable 09/26/21 04:20 Ovalocytes Not Reportable 09/26/21 04:20 Helmet Cells Not Reportable 09/26/21 04:20 [place] Bodies Not Reportable 09/26/21 04:20 [place] Rings Not Reportable 09/26/21 04:20 [place] Cells Not Reportable 09/26/21 04:20 Bite Cells Not Reportable 09/26/21 04:20 Crenated Cell Not Reportable 09/26/21 04:20 Elliptocytes Not Reportable 09/26/21 04:20 Acanthocytes (Spur) Not Reportable 09/26/21 04:20 Rouleaux Not Reportable 09/26/21 04:20 Hemoglobin C Crystals Not Reportable 09/26/21 04:20 Schistocytes Not Reportable 09/26/21 04:20 Malaria parasites Not Reportable 09/26/21 04:20 Flaco Bodies Not Reportable 09/26/21 04:20 Hem Pathologist Commnt No 09/26/21 04:20 Sodium 138 mmol/L (137-145) 09/26/21 04:20 Potassium 3.2 mmol/L (3.6-5.0) L 09/26/21 04:20 Chloride 102.8 mmol/L (98-107) 09/26/21 04:20 Carbon Dioxide 20 mmol/L (22-30) L 09/26/21 04:20 Anion Gap 18 mmol/L 09/26/21 04:20 BUN 11 mg/dL (7-17) 09/26/21 04:20 Creatinine 0.7 mg/dL (0.6-1.2) 09/26/21 04:20 Estimated GFR > 60 ml/min 09/26/21 04:20 BUN/Creatinine Ratio 16 % 09/26/21 04:20 Glucose 77 mg/dL (65-100) 09/26/21 04:20 Lactic Acid 1.00 mmol/L (0.7-2.0) 09/24/21 21:54 Calcium 8.3 mg/dL (8.4-10.2) L 09/26/21 04:20 Total Bilirubin 0.60 mg/dL (0.1-1.2) 09/24/21 14:58 AST 16 units/L (5-40) 09/24/21 14:58 ALT 17 units/L (7-56) 09/24/21 14:58 Alkaline Phosphatase 83 units/L (35-129) 09/24/21 14:58 Total Protein 6.1 g/dL (6.3-8.2) L 09/24/21 14:58 Albumin 3.3 g/dL (3.9-5) L 09/24/21 14:58 Albumin/Globulin Ratio 1.2 % 09/24/21 14:58 Urine Color Yellow (Yellow) 09/24/21 14:49 Urine Turbidity Slightly-cloudy (Clear) 09/24/21 14:49 Urine pH 6.0 (5.0-7.0) 09/24/21 14:49 Ur Specific [place] 1.017 (1.003-1.030) 09/24/21 14:49 Urine Protein 30 mg/dl mg/dL (Negative) 09/24/21 14:49 Urine Glucose (UA) Neg mg/dL (Negative) 09/24/21 14:49 Urine Ketones Neg mg/dL (Negative) 09/24/21 14:49 Urine Blood Neg (Negative) 09/24/21 14:49 Urine Nitrite Neg (Negative) 09/24/21 14:49 Ur Reducing Substances Not Reportable 09/24/21 14:49 Urine Bilirubin Neg (Negative) 09/24/21 14:49 Urine Ictotest Not Reportable 09/24/21 14:49 Urine Urobilinogen < 2.0 mg/dL (<2.0) 09/24/21 14:49 Ur Leukocyte Esterase Neg (Negative) 09/24/21 14:49 Urine WBC (Auto) 4.0 /HPF (0.0-6.0) 09/24/21 14:49 Urine RBC (Auto) 2.0 /HPF (0.0-6.0) 09/24/21 14:49 U Epithel Cells (Auto) 18.0 /HPF (0-13.0) H 09/24/21 14:49 Urine Mucus Few /HPF 09/24/21 14:49 Urine HCG, Qual Negative (Negative) 09/24/21 14:49 Microbiology: Microbiology 09/24/21 19:03 Peripheral/Venous Blood Culture - Preliminary NO GROWTH AFTER 24 HOURS 09/24/21 19:03 Peripheral/Venous Blood Culture - Preliminary NO GROWTH AFTER 24 HOURS Doss/IV: Voiding Method Toilet Active Medications - Current Medications Current Medications: Generic Name Dose Route Start Last Admin Trade Name Freq PRN Reason Stop Dose Admin Acetaminophen 650 mg 09/24/21 18:07 09/25/21 12:19 Acetaminophen 325 Mg Tab PO 650 mg Q4H PRN Administration Pain MILD(1-3)/Fever >100.5/BERG Albuterol 2.5 mg 09/24/21 18:07 Albuterol 2.5 Mg/3 Ml Nebu IH Q4HRT PRN Shortness Of Breath Hydromorphone HCl 1 mg 09/25/21 10:00 09/26/21 05:56 Hydromorphone 1 Mg/1 Ml Inj IV 1 mg Q6H PRN Administration Pain , Severe (7-10) Hydromorphone HCl 0.5 mg 09/25/21 10:00 09/25/21 20:17 Hydromorphone 1 Mg/1 Ml Inj IV 0.5 mg Q4H PRN Administration Pain, Moderate (4-6) Cefepime HCl 2 gm in 100 mls @ 200 mls/hr 09/24/21 19:00 09/26/21 06:21 Cefepime/Ns 2 Gm/100 Ml IV Infused Q8H JAZ Infusion Protocol Metronidazole 500 mg in 100 mls @ 100 mls/hr 09/24/21 19:00 09/26/21 06:01 Flagyl 500 Mg/100 Ml IV Infused Q8H JAZ Infusion Protocol Sodium Chloride 3,000 mls @ 135 mls/hr 09/24/21 18:15 09/25/21 01:14 Nacl 0.9% 1000 Ml IV 135 mls/hr DIRECT JAZ Administration Ketorolac Tromethamine 30 mg 09/25/21 13:00 09/26/21 06:05 Ketorolac 30 Mg/1 Ml Inj IV 09/30/21 12:59 30 mg Q6HR JAZ Administration Ondansetron HCl 4 mg 09/24/21 18:07 09/26/21 06:04 Ondansetron 4 Mg/2 Ml Inj IV 4 mg Q8H PRN Administration Nausea And Vomiting Sodium Chloride 10 ml 09/24/21 22:00 09/25/21 21:52 Sodium Chloride 0.9% 10 Ml Flush Syringe IV 10 ml BID JAZ Administration Sodium Chloride 10 ml 09/24/21 18:07 09/25/21 08:34 Sodium Chloride 0.9% 10 Ml Flush Syringe IV 10 ml PRN PRN Administration LINE FLUSH Nutrition/Malnutrition Assess - Dietary Evaluation Nutrition/Malnutrition Findings: Nutrition Notes Start: 09/25/21 15:31 Freq: Status: Active Protocol: Document 09/25/21 15:31 BIN (Rec: 09/25/21 15:56 BIN [email or web address]) Nutrition Notes Need for Assessment generated from: assistance specialist Initial or Follow up Assessment Current Diagnosis Sepsis Other Pertinent Diagnosis Diverticulitis/Peritonitis, N/ V, Volume Depletion, Hypokalemia, ... Current Diet NPO (since 09/25 00:01). Labs/Tests 09/25: Na 136, K 3.0, CO2 21, Ca 7.8. Pertinent Medications 09/25: KCl 40 mEq in 400 ml @ 100 ml/hr, others nutritionally unremarkable. Height 5 ft 7 in Weight 90.718 kg [place] Body Weight (kg) 61.36 BMI 31.3 Intake Prior to Admission Good Weight change and time frame Pt states not having loss body weight recently. Weight Status Obese Subjective/Other Information RD consult for skin risk assessment. Pt shows no signs of concern for skin risk at the time, according to Physical Assessment History notes. Pt to remain NPO w/ ice chips. Reassessment on 09/26 by Gastroenterology. Percent of energy/protein needs met: Pt currently on NPO. Burn Absent Trauma Absent GI Symptoms Nausea,Vomiting,Other Food Allergy No Skin Integrity/Comment Assessment WNL. Current % PO Other Minimum of two criteria No #1 Nutrition Diagnosis Altered GI function Comments: Gastroenterology reassessment on Tuesday 09/26. Etiology Diverticulitis/Peritonitis As Evidenced by Signs and Symptoms Pt currently on NPO. Is patient on ventilator? No Is Patient Ambulatory and/or Out of Bed Yes REE-([place]. or-ambulatory/OOB) [ 2144.753 NUTR.[id number]] Kcal/Kg value to use for calculation 19 Approximate Energy Requirements Using 1724 kcal/Kg Calculation Used for Recommendations Kcal/kg Additional Notes Protein: >2 g/Kg IBW; > 122 g/ day. Fluids: 1 ml/Kcal, or as per MD. Nutrition Intervention Nutrition Support: When pertinent start TF or PPN . Goal #1 Provide at least 75% of energy /protein needs through Enteral or Parenteral Feeding during LOS. Goal #2 Maintain body weight within +/ -3% of admission body weight during LOS. Follow-Up By: 09/27/21 Additional Comments When pertinent, monitor TF or PPN tolerance and BM.
[2021-09-26] MEDS ORDERED: LIDOCAINE (1%) 10 MG/1 ML VIAL 20 ML MDV ONE (10:48)
[2021-09-26] MEDS ORDERED: BUPIVACAINE/PF (0.5%) 5 MG/1 ML 30 ML VIAL INFILTRATI ONE ×2 (10:49→12:30)
[2021-09-26] MEDS ORDERED: fentaNYL 100 MCG/2 ML INJ ONE ×2 (10:51→12:07)
[2021-09-26] MEDS ORDERED: LIDOCAINE MPF (2%) 20 MG/1 ML VIAL 5 ML ONE (10:51)
[2021-09-26] MEDS ORDERED: MIDAZOLAM 2 MG/2 ML INJ ONE (10:51)
[2021-09-26] MEDS ORDERED: propofoL 200 MG/20 ML VIAL IV ONE (10:52)
--- NOTE | 2021-09-26 11:08 | Progress Note ---
Assessment and Plan 31-year-old female with pericolonic abscess likely due to contained perforated diverticulitis. Localized peritonitis. Afebrile with low-grade tachycardia but stable. Patient has showed improvement in her white blood cell count and heart rate since initiation of fluids and antibiotics. Due to no significant improvement in patient's condition, and pain that is not improving patient agreeable to diagnose laparoscopy today. Discussed treatment options such as abdominal washout and drain placement to possible sigmoid resection and co lostomy. She expressed understanding of the risk and benefits. Subjective Date of service: 09/26/21 Narrative: No acute events overnight. Patient says that her pain is unchanged compared to yesterday. She says nausea has increased. Objective Vital Signs - 12hr 09/26/21 09/26/21 09/26/21 00:28 02:00 05:55 Temperature 98.5 F Pulse Rate 114 H Respiratory 20 18 Rate Blood Pressure 124/78 O2 Sat by Pulse 98 96 96 Oximetry 09/26/21 08:59 Temperature Pulse Rate Respiratory Rate Blood Pressure O2 Sat by Pulse 100 Oximetry - General physical appearance well developed, moderate distress, severe pain - Eyes PERRL - ENT no hearing loss - Respiratory normal expansion, normal respiratory effort - Abdomen soft, not guarding, other (very tender to palpation more left side than right) - Labs 09/26/21 04:20 09/26/21 04:20 Diabetes panel 09/26/21 Range/Units 04:20 Sodium 138 (137-145) mmol/L Potassium 3.2 L (3.6-5.0) mmol/L Chloride 102.8 (98-107) mmol/L Carbon Dioxide 20 L (22-30) mmol/L BUN 11 (7-17) mg/dL Creatinine 0.7 (0.6-1.2) mg/dL Glucose 77 (65-100) mg/dL Calcium 8.3 L (8.4-10.2) mg/dL Calcium panel 09/26/21 Range/Units 04:20 Calcium 8.3 L (8.4-10.2) mg/dL Pituitary panel 09/26/21 Range/Units 04:20 Sodium 138 (137-145) mmol/L Potassium 3.2 L (3.6-5.0) mmol/L Chloride 102.8 (98-107) mmol/L Carbon Dioxide 20 L (22-30) mmol/L BUN 11 (7-17) mg/dL Creatinine 0.7 (0.6-1.2) mg/dL Glucose 77 (65-100) mg/dL Calcium 8.3 L (8.4-10.2) mg/dL Adrenal panel 09/26/21 Range/Units 04:20 Sodium 138 (137-145) mmol/L Potassium 3.2 L (3.6-5.0) mmol/L Chloride 102.8 (98-107) mmol/L Carbon Dioxide 20 L (22-30) mmol/L BUN 11 (7-17) mg/dL Creatinine 0.7 (0.6-1.2) mg/dL Glucose 77 (65-100) mg/dL Calcium 8.3 L (8.4-10.2) mg/dL
[2021-09-26] MEDS ORDERED: SUGAMMADEX SODIUM 200 MG/2 ML VIAL IV ONE (11:14)
--- NOTE | 2021-09-26 11:23 | Anesthesia Consultation ---
Anesthesia Consult and Med Hx Date of service: 09/26/21 - Airway Anesthetic Teeth Evaluation: Good ROM Head & Neck: Adequate Mental/Hyoid Distance: Adequate Mallampati Class: Class II - Pulmonary Exam CTA: Yes - Cardiac Exam Cardiac Exam: RRR - Pre-Operative Health Status ASA Pre-Surgery Classification: ASA2, Emergency Proposed Anesthetic Plan: General - Cardiovascular System Hx Hypertension: Yes - Additional Comments Anesthesia Medical History Comments: diverticulitis
--- NOTE | 2021-09-26 11:38 | Anesthesia Day of Surgery ---
Anesthesia Day of Surgery - Day of Surgery Patient Examined: Yes Patient H&P Reviewed: Yes Patient is NPO: Yes
[2021-09-26] MEDS ORDERED: SODIUM CHLORIDE 0.9% IRRIG SOLN 2000 ML IR ONE (12:31)
[2021-09-26] MEDS ORDERED: LIDOCAINE (1%) 10 MG/1 ML VIAL 20 ML MDV INFILTRATI ONE (12:31)
[2021-09-26] MEDS ORDERED: SODIUM CHLORIDE 0.9% IRR 1,500 ML BOTTLE IR ONE (12:31)
[2021-09-26] MEDS ORDERED: LACTATED RINGERS 2,000 ML ONE (13:02)
[2021-09-26] MEDS ORDERED: ROCURONIUM 50 MG/5 ML INJ IV ONE (13:04)
[2021-09-26] MEDS ORDERED: dexAMETHasone 20 MG/5 ML VIAL ONE (13:04)
[2021-09-26] MEDS ORDERED: ONDANSETRON 4 MG/2 ML INJ ONE (13:04)
[2021-09-26] MEDS ORDERED: HYDROmorphone 1 MG/1 ML INJ ONE (13:21)
--- NOTE | 2021-09-26 13:48 | Operative Report ---
Operative Report Operative Report: Date September 26, 2021 Surgeon: Gosia Huddleston MD [employer] surgeon: Edith Elmore DO Procedure:1. Diagnostic laparoscopy, 2. Evacuation of pericolonic abscess with drain placement Preop diagnosis: Pericolonic abscess, perforated diverticulitis Postop diagnosis: Same as preop Anesthesia:GETA Indication: Patient a 31-year-old female presents to the emergency room about 36 hours ago with a 2-day history of worsening left-sided abdominal pain. Patient was found to have a pericolonic abscess with largest measurement almost 5 cm. There was no free air or free fluid. After 24 hours of antibiotics and supportive care patient's pain did not improve and she continued to have intermittent tachycardia although her leukocytosis was improving. Patient was consented for diagnostic lap. Details of procedure: Patient brought the OR suite and laid in supine position. Bilateral lower extremity SCDs were placed. General anesthesia was induced via successful endotracheal tube intubation. A Doss catheter was inserted under sterile technique. Patient's arms were tucked at her side gently. Patient's abdomen was prepped and draped in sterile fashion. Patient had received antibiotics on the floor therefore did not require a preoperative dose in the OR. After a timeout was performed stab incision was placed in the left upper quadrant with a Veress needle and the abdomen was insufflated to a pressure of 15 mmHg. After which using Optiview technique a 5 mm trocar was placed just superior and left of the umbilicus. There was noted to be no injury to any intra abdominal structures. 3 working trochars were placed under direct visualization all 5 mm. The included right upper quadrant right lower quadrant and suprapubic area. The patient was placed in Trendelenburg position and rotated to her right side. There was no gross purulence or stool appreciated. A LigaSure device was used to take down the white line of [place] along the sigmoid and descending colon. The colon was medialized. Eventually, there was a pocket of purulent fluid that was entered that was tracking into the abdominal wall. There was no gross stool or hole in the colon appreciated. This cavity was irrigated and aspirated. Hemostasis was achieved with the LigaSure device and 2 small pieces of Surgicel. A 19 [place] round drain was placed into the cavity tracks to the pelvis and exited out of the suprapubic trocar. The drain was secured with a 2-0 nylon at the level of the skin. The abdomen was then desufflated, all trochars were removed. Skin incisions were closed with 4 Monocryl followed by Dermabond. Patient was awoken, extubated and taken to recovery stable condition. All counts were correct. Complications: None immediate EBL: Approximately 20 mL Specimen: None Findings: Pericolonic abscess the lateral sidewall of the descending colon
[2021-09-26] MEDS: SODIUM CHLORIDE 0.9% 1000 ML 3,000 ML IV SCH (20:18)
[2021-09-27] MEDS: KETOROLAC 30 MG/1 ML INJ IV SCH ×5 (02:16→18:41)
[2021-09-27] MEDS: HYDROmorphone 1 MG/1 ML INJ IV PRN ×4 (02:17→22:07)
[2021-09-27] MEDS: CEFEPIME/NS 2 GM/100 ML 2 GM/100 ML BAG IV SCH ×3 (02:25→20:47)
[2021-09-27] MEDS: metroNIDAZOLE/NS 500 MG/100 ML 500 MG/100 ML BAG IV SCH ×3 (02:26→22:10)
--- NOTE | 2021-09-27 08:17 | Progress Note ---
Assessment and Plan Assessment and plan: #Sepsis-improving #Diverticulitis with abscess #Peritonitis -CT abd/pelvis showed diverticulitis with abscess -s/p diagnositic laparatomy and drain placement 09/26 -continue cefepime and flagyl, IVF -CLD today, will advanced as tolerated tomorrow -Surgery consulted, assistance appreciated #Volume depletion -likely 2/2 to poor PO intake due to abdominal pain and vomiting -continue IVFs, can discontinue after patient resumes PO intake #Hypokalemia -likely 2/2 to vomiting -will monitor and replete #Advance care planning -Disease education conducted, care plan discussed, diagnoses discussed, prognosis discussed, patient is full code. Patient knowledges understanding and agreement with care plan, +30 minutes. History Interval history: No acute events overnight. Patient reports improvement in abdominal pain. No longer having nausea. No complaints at this time. Hospitalist Physical - Physical exam Narrative exam: GENERAL: Well-developed well-nourished. In no acute distress. HEENT: Normocephalic. Atraumatic. CHEST/LUNGS: CTAB on room air HEART/CARDIOVASCULAR: RRR. No murmur, rubs or gallops appreciated. ABDOMEN: YURIDIA drain with serosanginous fluid. +BS. ND. Mildly tender to palpation at site of drain NEURO: No focal motor deficit. Follows all commands. MUSCULOSKELETAL: No joint effusion EXTREMITIES: No cyanosis, clubbing or edema. PSYCH: Cooperative. - Constitutional Vitals: Temp Pulse Resp BP Pulse Ox 98.4 F 85 20 147/96 100 09/27/21 06:27 09/27/21 06:27 09/27/21 06:27 09/27/21 06:27 09/27/21 06:27 General appearance: Present: mild distress, obese Results - Labs CBC & Chem 7: 09/27/21 08:28 09/27/21 08:28 Labs: Laboratory Last Values WBC 23.6 K/mm3 (4.5-11.0) H 09/26/21 04:20 RBC 4.26 M/mm3 (3.65-5.03) 09/26/21 04:20 Hgb 11.8 gm/dl (10.1-14.3) 09/26/21 04:20 Hct 37.1 % (30.3-42.9) D 09/26/21 04:20 MCV 87 fl (79-97) 09/26/21 04:20 MCH 28 pg (28-32) 09/26/21 04:20 MCHC 32 % (30-34) 09/26/21 04:20 RDW 15.1 % (13.2-15.2) 09/26/21 04:20 Plt Count 486 K/mm3 (140-440) H 09/26/21 04:20 Add Manual Diff Complete 09/26/21 04:20 Total Counted 100 09/26/21 04:20 Seg Neutrophils % Hardware Engineer 09/26/21 04:20 Seg Neuts % (Manual) 86.0 % (40.0-70.0) H 09/26/21 04:20 Band Neutrophils % 7.0 % 09/26/21 04:20 Lymphocytes % (Manual) 3.0 % (13.4-35.0) L 09/26/21 04:20 Reactive Lymphs % (Man) 0 % 09/26/21 04:20 Monocytes % (Manual) 4.0 % (0.0-7.3) 09/26/21 04:20 Eosinophils % (Manual) 0 % (0.0-4.3) 09/26/21 04:20 Basophils % (Manual) 0 % (0.0-1.8) 09/26/21 04:20 Metamyelocytes % 0 % 09/26/21 04:20 Myelocytes % 0 % 09/26/21 04:20 Promyelocytes % 0 % 09/26/21 04:20 Blast Cells % 0 % 09/26/21 04:20 Nucleated RBC % Not Reportable 09/26/21 04:20 Seg Neutrophils # Man 20.3 K/mm3 (1.8-7.7) H 09/26/21 04:20 Band Neutrophils # 1.7 K/mm3 09/26/21 04:20 Lymphocytes # (Manual) 0.7 K/mm3 (1.2-5.4) L 09/26/21 04:20 Abs React Lymphs (Man) 0.0 K/mm3 09/26/21 04:20 Monocytes # (Manual) 0.9 K/mm3 (0.0-0.8) H 09/26/21 04:20 Eosinophils # (Manual) 0.0 K/mm3 (0.0-0.4) 09/26/21 04:20 Basophils # (Manual) 0.0 K/mm3 (0.0-0.1) 09/26/21 04:20 Metamyelocytes # 0.0 K/mm3 09/26/21 04:20 Myelocytes # 0.0 K/mm3 09/26/21 04:20 Promyelocytes # 0.0 K/mm3 09/26/21 04:20 Blast Cells # 0.0 K/mm3 09/26/21 04:20 WBC Morphology Not Reportable 09/26/21 04:20 Hypersegmented Neuts Not Reportable 09/26/21 04:20 Hyposegmented Neuts Not Reportable 09/26/21 04:20 Hypogranular Neuts Not Reportable 09/26/21 04:20 Smudge Cells Not Reportable 09/26/21 04:20 Toxic Granulation Not Reportable 09/26/21 04:20 Toxic Vacuolation Not Reportable 09/26/21 04:20 Dohle Bodies Not Reportable 09/26/21 04:20 Pelger-Huet Anomaly Not Reportable 09/26/21 04:20 Marlene Rods Not Reportable 09/26/21 04:20 Platelet Estimate Consistent w auto 09/26/21 04:20 Clumped Platelets Not Reportable 09/26/21 04:20 Plt Clumps, EDTA Not Reportable 09/26/21 04:20 Large Platelets Not Reportable 09/26/21 04:20 Giant Platelets Not Reportable 09/26/21 04:20 Platelet Satelliting Not Reportable 09/26/21 04:20 Plt Morphology Comment Not Reportable 09/26/21 04:20 RBC Morphology Normal 09/26/21 04:20 Dimorphic RBCs Not Reportable 09/26/21 04:20 Polychromasia Not Reportable 09/26/21 04:20 Hypochromasia Not Reportable 09/26/21 04:20 Poikilocytosis Not Reportable 09/26/21 04:20 Anisocytosis Not Reportable 09/26/21 04:20 Microcytosis Not Reportable 09/26/21 04:20 Macrocytosis Not Reportable 09/26/21 04:20 Spherocytes Not Reportable 09/26/21 04:20 Pappenheimer Bodies Not Reportable 09/26/21 04:20 Sickle Cells Not Reportable 09/26/21 04:20 Target Cells Not Reportable 09/26/21 04:20 Tear Drop Cells Not Reportable 09/26/21 04:20 Ovalocytes Not Reportable 09/26/21 04:20 Helmet Cells Not Reportable 09/26/21 04:20 [place] Bodies Not Reportable 09/26/21 04:20 [place] Rings Not Reportable 09/26/21 04:20 [place] Cells Not Reportable 09/26/21 04:20 Bite Cells Not Reportable 09/26/21 04:20 Crenated Cell Not Reportable 09/26/21 04:20 Elliptocytes Not Reportable 09/26/21 04:20 Acanthocytes (Spur) Not Reportable 09/26/21 04:20 Rouleaux Not Reportable 09/26/21 04:20 Hemoglobin C Crystals Not Reportable 09/26/21 04:20 Schistocytes Not Reportable 09/26/21 04:20 Malaria parasites Not Reportable 09/26/21 04:20 Flaco Bodies Not Reportable 09/26/21 04:20 Hem Pathologist Commnt No 09/26/21 04:20 Sodium 138 mmol/L (137-145) 09/26/21 04:20 Potassium 3.2 mmol/L (3.6-5.0) L 09/26/21 04:20 Chloride 102.8 mmol/L (98-107) 09/26/21 04:20 Carbon Dioxide 20 mmol/L (22-30) L 09/26/21 04:20 Anion Gap 18 mmol/L 09/26/21 04:20 BUN 11 mg/dL (7-17) 09/26/21 04:20 Creatinine 0.7 mg/dL (0.6-1.2) 09/26/21 04:20 Estimated GFR > 60 ml/min 09/26/21 04:20 BUN/Creatinine Ratio 16 % 09/26/21 04:20 Glucose 77 mg/dL (65-100) 09/26/21 04:20 Lactic Acid 1.00 mmol/L (0.7-2.0) 09/24/21 21:54 Calcium 8.3 mg/dL (8.4-10.2) L 09/26/21 04:20 Total Bilirubin 0.60 mg/dL (0.1-1.2) 09/24/21 14:58 AST 16 units/L (5-40) 09/24/21 14:58 ALT 17 units/L (7-56) 09/24/21 14:58 Alkaline Phosphatase 83 units/L (35-129) 09/24/21 14:58 Total Protein 6.1 g/dL (6.3-8.2) L 09/24/21 14:58 Albumin 3.3 g/dL (3.9-5) L 09/24/21 14:58 Albumin/Globulin Ratio 1.2 % 09/24/21 14:58 Urine Color Yellow (Yellow) 09/24/21 14:49 Urine Turbidity Slightly-cloudy (Clear) 09/24/21 14:49 Urine pH 6.0 (5.0-7.0) 09/24/21 14:49 Ur Specific [place] 1.017 (1.003-1.030) 09/24/21 14:49 Urine Protein 30 mg/dl mg/dL (Negative) 09/24/21 14:49 Urine Glucose (UA) Neg mg/dL (Negative) 09/24/21 14:49 Urine Ketones Neg mg/dL (Negative) 09/24/21 14:49 Urine Blood Neg (Negative) 09/24/21 14:49 Urine Nitrite Neg (Negative) 09/24/21 14:49 Ur Reducing Substances Not Reportable 09/24/21 14:49 Urine Bilirubin Neg (Negative) 09/24/21 14:49 Urine Ictotest Not Reportable 09/24/21 14:49 Urine Urobilinogen < 2.0 mg/dL (<2.0) 09/24/21 14:49 Ur Leukocyte Esterase Neg (Negative) 09/24/21 14:49 Urine WBC (Auto) 4.0 /HPF (0.0-6.0) 09/24/21 14:49 Urine RBC (Auto) 2.0 /HPF (0.0-6.0) 09/24/21 14:49 U Epithel Cells (Auto) 18.0 /HPF (0-13.0) H 09/24/21 14:49 Urine Mucus Few /HPF 09/24/21 14:49 Urine HCG, Qual Negative (Negative) 09/24/21 14:49 Blood Type A POSITIVE 09/26/21 10:06 Antibody Screen Negative 09/26/21 10:06 Microbiology: Microbiology 09/24/21 19:03 Peripheral/Venous Blood Culture - Preliminary NO GROWTH AFTER 48 HOURS 09/24/21 19:03 Peripheral/Venous Blood Culture - Preliminary NO GROWTH AFTER 48 HOURS Doss/IV: Voiding Method Toilet Active Medications - Current Medications Current Medications: Generic Name Dose Route Start Last Admin Trade Name Freq PRN Reason Stop Dose Admin Acetaminophen 650 mg 09/24/21 18:07 09/25/21 12:19 Acetaminophen 325 Mg Tab PO 650 mg Q4H PRN Administration Pain MILD(1-3)/Fever >100.5/BERG Albuterol 2.5 mg 09/24/21 18:07 Albuterol 2.5 Mg/3 Ml Nebu IH Q4HRT PRN Shortness Of Breath Hydromorphone HCl 1 mg 09/25/21 10:00 09/27/21 02:17 Hydromorphone 1 Mg/1 Ml Inj IV 1 mg Q6H PRN Administration Pain , Severe (7-10) Hydromorphone HCl 0.5 mg 09/25/21 10:00 09/26/21 09:40 Hydromorphone 1 Mg/1 Ml Inj IV 0.5 mg Q4H PRN Administration Pain, Moderate (4-6) Cefepime HCl 2 gm in 100 mls @ 200 mls/hr 09/24/21 19:00 09/27/21 07:31 Cefepime/Ns 2 Gm/100 Ml IV Infused Q8H JAZ Infusion Protocol Metronidazole 500 mg in 100 mls @ 100 mls/hr 09/24/21 19:00 09/27/21 06:34 Flagyl 500 Mg/100 Ml IV Infused Q8H JAZ Infusion Protocol Sodium Chloride 3,000 mls @ 135 mls/hr 09/24/21 18:15 09/26/21 20:18 Nacl 0.9% 1000 Ml IV 135 mls/hr DIRECT JAZ Administration Ketorolac Tromethamine 30 mg 09/25/21 13:00 09/27/21 06:33 Ketorolac 30 Mg/1 Ml Inj IV 09/30/21 12:59 30 mg Q6HR JAZ Administration Ondansetron HCl 4 mg 09/24/21 18:07 09/26/21 09:40 Ondansetron 4 Mg/2 Ml Inj IV 4 mg Q8H PRN Administration Nausea And Vomiting Sodium Chloride 10 ml 09/24/21 22:00 09/26/21 22:16 Sodium Chloride 0.9% 10 Ml Flush Syringe IV 10 ml BID JAZ Administration Sodium Chloride 10 ml 09/24/21 18:07 09/25/21 08:34 Sodium Chloride 0.9% 10 Ml Flush Syringe IV 10 ml PRN PRN Administration LINE FLUSH Nutrition/Malnutrition Assess - Dietary Evaluation Nutrition/Malnutrition Findings: Nutrition Notes Start: 09/25/21 15:31 Freq: Status: Active Protocol: Document 09/25/21 15:31 BIN (Rec: 09/25/21 15:56 BIN [id number]) Nutrition Notes 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 Current Diet NPO (since 09/25 00:01). Labs/Tests 09/25: Na 136, K 3.0, CO2 21, Ca 7.8. Pertinent Medications 09/25: KCl 40 mEq in 400 ml @ 100 ml/hr, others nutritionally unremarkable. Height 5 ft 7 in Weight 90.718 kg [place] Body Weight (kg) 61.36 BMI 31.3 Intake Prior to Admission Good Weight change and time frame Pt states not having loss body weight recently. Weight Status Obese Subjective/Other Information RD consult for skin risk assessment. Pt shows no signs of concern for skin risk at the time, according to Physical Assessment History notes. Pt to remain NPO w/ ice chips. Reassessment on 09/26 by Gastroenterology. Percent of energy/protein needs met: Pt currently on NPO. Burn Absent Trauma Absent GI Symptoms Nausea,Vomiting,Other Food Allergy No Skin Integrity/Comment Assessment WNL. Current % PO Other Minimum of two criteria No #1 Nutrition Diagnosis Altered GI function Comments: Gastroenterology reassessment on Tuesday 09/26. Etiology Diverticulitis/Peritonitis As Evidenced by Signs and Symptoms Pt currently on NPO. Is patient on ventilator? No Is Patient Ambulatory and/or Out of Bed Yes REE-(Turner-St. Jeor-ambulatory/OOB) [ 4204.753 NUTR.[id number]] Kcal/Kg value to use for calculation 19 Approximate Energy Requirements Using 1724 kcal/Kg Calculation Used for Recommendations Kcal/kg Additional Notes Protein: >2 g/Kg IBW; > 122 g/ day. Fluids: 1 ml/Kcal, or as per MD. Nutrition Intervention Nutrition Support: When pertinent start TF or PPN . Goal #1 Provide at least 75% of energy /protein needs through Enteral or Parenteral Feeding during LOS. Goal #2 Maintain body weight within +/ -3% of admission body weight during LOS. Follow-Up By: 09/27/21 Additional Comments When pertinent, monitor TF or PPN tolerance and BM.
[2021-09-27 09:10] LABS: Hematocrit 29.5 % (30.3-42.9); Hemoglobin 9.9 gm/dl (10.1-14.3); Mean Corpuscular HGB Conc 34 % (30-34); Mean Corpuscular Volume 86 fl (79-97); Platelet Count 433 K/mm3 (140-440); Red Blood Count 3.42 M/mm3 (3.65-5.03); Red Cell Distribution Width 15.1 % (13.2-15.2)
[2021-09-27 09:29] LABS: Blood Urea Nitrogen 15 mg/dL (7-17); Calcium 8.2 mg/dL (8.4-10.2); Hemolysis Index 3
[2021-09-27 09:30] LABS: BUN/Creatinine Ratio 25
[2021-09-27] MEDS: ONDANSETRON 4 MG/2 ML INJ IV PRN ×2 (09:31→16:29)
[2021-09-27 10:42] LABS: Band Neutrophils # (Manual) 0.4 K/mm3; Basophils % (Manual) 0 % (0.0-1.8); Eosinophils % (Manual) 0 % (0.0-4.3)
[2021-09-27 10:43] LABS: Anisocytosis 1+; Platelet Estimate Consistent w Auto; Total Cells Counted 101
--- NOTE | 2021-09-27 15:27 | Progress Note ---
Assessment and Plan Postoperative day #1 status post l diagnostic laparoscopy with drainage of pericolonic abscess and drain placement. Afebrile with resolution of tachycardia. Leukocytosis has improved but still in the 20s. Will advance to full liquids and continue to monitor. Subjective Date of service: 09/27/21 Narrative: No acute events overnight. Patient says that she feels significantly better compared to prior to surgery. Objective Vital Signs - 12hr 09/27/21 09/27/21 06:27 10:00 Temperature 98.4 F Pulse Rate 85 Respiratory 20 Rate Blood Pressure 147/96 O2 Sat by Pulse 100 99 Oximetry - General physical appearance well nourished, no distress, no pain - Eyes PERRL - Respiratory normal expansion, normal respiratory effort - Abdomen soft, other (Appropriately tender to palpation. Incisions clean dry and intact, YURIDIA drain serosanguineous) - Labs 09/27/21 08:28 09/27/21 08:28 Diabetes panel 09/27/21 Range/Units 08:28 Sodium 139 (137-145) mmol/L Potassium 3.7 (3.6-5.0) mmol/L Chloride 106.2 (98-107) mmol/L Carbon Dioxide 22 (22-30) mmol/L BUN 15 (7-17) mg/dL Creatinine 0.6 (0.6-1.2) mg/dL Glucose 137 H (65-100) mg/dL Calcium 8.2 L (8.4-10.2) mg/dL Calcium panel 09/27/21 Range/Units 08:28 Calcium 8.2 L (8.4-10.2) mg/dL Pituitary panel 09/27/21 Range/Units 08:28 Sodium 139 (137-145) mmol/L Potassium 3.7 (3.6-5.0) mmol/L Chloride 106.2 (98-107) mmol/L Carbon Dioxide 22 (22-30) mmol/L BUN 15 (7-17) mg/dL Creatinine 0.6 (0.6-1.2) mg/dL Glucose 137 H (65-100) mg/dL Calcium 8.2 L (8.4-10.2) mg/dL Adrenal panel 09/27/21 Range/Units 08:28 Sodium 139 (137-145) mmol/L Potassium 3.7 (3.6-5.0) mmol/L Chloride 106.2 (98-107) mmol/L Carbon Dioxide 22 (22-30) mmol/L BUN 15 (7-17) mg/dL Creatinine 0.6 (0.6-1.2) mg/dL Glucose 137 H (65-100) mg/dL Calcium 8.2 L (8.4-10.2) mg/dL
[2021-09-27] MEDS: SODIUM CHLORIDE 0.9% 1000 ML 3,000 ML IV SCH (18:44)
[2021-09-28] MEDS: KETOROLAC 30 MG/1 ML INJ IV SCH ×4 (00:41→18:43)
[2021-09-28] MEDS: HYDROmorphone 1 MG/1 ML INJ IV PRN ×4 (01:45→20:47)
[2021-09-28] MEDS: ONDANSETRON 4 MG/2 ML INJ IV PRN ×2 (01:45→08:25)
[2021-09-28] MEDS: CEFEPIME/NS 2 GM/100 ML 2 GM/100 ML BAG IV SCH ×3 (03:27→19:24)
[2021-09-28] MEDS: metroNIDAZOLE/NS 500 MG/100 ML 500 MG/100 ML BAG IV SCH ×3 (04:10→21:13)
[2021-09-28 06:03] LABS: Hematocrit 28.7 % (30.3-42.9); Hemoglobin 9.3 gm/dl (10.1-14.3); Mean Corpuscular HGB Conc 32 % (30-34); Mean Corpuscular Volume 86 fl (79-97); Platelet Count 444 K/mm3 (140-440); Red Blood Count 3.34 M/mm3 (3.65-5.03); Red Cell Distribution Width 15.1 % (13.2-15.2)
[2021-09-28 06:48] LABS: Anisocytosis 1+; Basophils % (Manual) 0 % (0.0-1.8); Total Cells Counted 100
[2021-09-28 06:49] LABS: Platelet Estimate Consistent w Auto
[2021-09-28 07:20] LABS: Eosinophils # (Auto) 0.1 K/mm3 (0.0-0.4); Eosinophils % (Auto) 0.4 % (0.0-4.3); Monocytes # (Auto) 0.9 K/mm3 (0.0-0.8); Monocytes % (Auto) 5.9 % (0.0-7.3)
[2021-09-28] MEDS: POLYETHYLENE GLYCOL 3350 17 GM POWDER PO SCH ×2 (12:22→21:10)
--- NOTE | 2021-09-28 13:00 | Progress Note ---
Assessment and Plan Assessment and plan: #Sepsis-improving #Diverticulitis with abscess #Peritonitis #Constipation -CT abd/pelvis showed diverticulitis with abscess -s/p diagnositic laparatomy and drain placement 09/26/2021 per general surgery. General surgery consulted; appreciate recs. -Continue cefepime 2 g q. 20 -Advancing diet to full liquid diet -Scheduling MiraLAX twice daily for possible anesthesia versus surgical versus opioid-related constipation. Continue to monitor. #Volume depletion -likely 2/2 to poor PO intake due to abdominal pain and vomiting -continue IVFs, can discontinue after patient resumes PO intake #Hypokalemia -likely 2/2 to vomiting -will monitor and replete #Advance care planning -Disease education conducted, care plan discussed, diagnoses discussed, prognosis discussed, patient is full code. Patient knowledges understanding and agreement with care plan Time: +30 minutes. Disposition Plan: Continue medical management Total Time Spent with Patient (Minutes): 45 minutes History Interval history: No acute events overnight. Hospitalist Physical - Constitutional Vitals: Temp Pulse Resp BP Pulse Ox 98.0 F 105 H 16 137/79 99 09/28/21 04:50 09/28/21 05:58 09/28/21 04:50 09/28/21 05:58 09/28/21 01:39 General appearance: Present: mild distress, obese - EENT Eyes: Present: PERRL, EOM intact ENT: hearing intact, clear oral mucosa, dentition normal - Neck Neck: Present: supple, normal ROM - Respiratory Respiratory effort: normal Respiratory: bilateral: CTA - Cardiovascular Rhythm: regular Heart Sounds: Present: S1 & S2 - Extremities Extremities: no ischemia, pulses intact, pulses symmetrical, normal temperature, normal color, Full ROM Extremity abnormal: edema (Trace edema of bilateral lower extremities to mid thigh) Peripheral Pulses: within normal limits - Abdominal General gastrointestinal: soft, tender (Appropriate tenderness at incision site), non-distended, normal bowel sounds, other (YURIDIA drain with serosanguineous fluid + intra-abdominal debris) - Integumentary Integumentary: Present: clear, warm, dry - Psychiatric Psychiatric: appropriate mood/affect, intact judgment & insight, memory intact, cooperative - Neurologic Neurologic: CNII-XII intact, moves all extremities - Allied Health Allied health notes reviewed: nursing Results - Labs CBC & Chem 7: 09/28/21 04:55 09/27/21 08:28 Labs: Laboratory Last Values WBC 15.1 K/mm3 (4.5-11.0) H 09/28/21 04:55 RBC 3.34 M/mm3 (3.65-5.03) L 09/28/21 04:55 Hgb 9.3 gm/dl (10.1-14.3) L 09/28/21 04:55 Hct 28.7 % (30.3-42.9) L 09/28/21 04:55 MCV 86 fl (79-97) 09/28/21 04:55 MCH 28 pg (28-32) 09/28/21 04:55 MCHC 32 % (30-34) 09/28/21 04:55 RDW 15.1 % (13.2-15.2) 09/28/21 04:55 Plt Count 444 K/mm3 (140-440) H 09/28/21 04:55 Esmeralda % (Auto) 5.9 % (0.0-7.3) 09/28/21 04:55 Eos % (Auto) 0.4 % (0.0-4.3) 09/28/21 04:55 Esmeralda # (Auto) 0.9 K/mm3 (0.0-0.8) H 09/28/21 04:55 Eos # (Auto) 0.1 K/mm3 (0.0-0.4) 09/28/21 04:55 Baso # (Auto) 0.0 K/mm3 (0.0-0.1) 09/28/21 04:55 Add Manual Diff Complete 09/28/21 04:55 Total Counted 100 09/28/21 04:55 Seg Neutrophils % 89.3 % (40.0-70.0) H 09/28/21 04:55 Seg Neuts % (Manual) 88.0 % (40.0-70.0) H 09/28/21 04:55 Band Neutrophils % 0 % 09/28/21 04:55 Lymphocytes % (Manual) 9.0 % (13.4-35.0) L 09/28/21 04:55 Reactive Lymphs % (Man) 0 % 09/28/21 04:55 Monocytes % (Manual) 1.0 % (0.0-7.3) 09/28/21 04:55 Eosinophils % (Manual) 2.0 % (0.0-4.3) 09/28/21 04:55 Basophils % (Manual) 0 % (0.0-1.8) 09/28/21 04:55 Metamyelocytes % 0 % 09/28/21 04:55 Myelocytes % 0 % 09/28/21 04:55 Promyelocytes % 0 % 09/28/21 04:55 Blast Cells % 0 % 09/28/21 04:55 Nucleated RBC % Not Reportable 09/28/21 04:55 Seg Neutrophils # 14.0 K/mm3 (1.8-7.7) H 09/28/21 04:55 Seg Neutrophils # Man 13.3 K/mm3 (1.8-7.7) H 09/28/21 04:55 Band Neutrophils # 0.0 K/mm3 09/28/21 04:55 Lymphocytes # (Manual) 1.4 K/mm3 (1.2-5.4) 09/28/21 04:55 Abs React Lymphs (Man) 0.0 K/mm3 09/28/21 04:55 Monocytes # (Manual) 0.2 K/mm3 (0.0-0.8) 09/28/21 04:55 Eosinophils # (Manual) 0.3 K/mm3 (0.0-0.4) 09/28/21 04:55 Basophils # (Manual) 0.0 K/mm3 (0.0-0.1) 09/28/21 04:55 Metamyelocytes # 0.0 K/mm3 09/28/21 04:55 Myelocytes # 0.0 K/mm3 09/28/21 04:55 Promyelocytes # 0.0 K/mm3 09/28/21 04:55 Blast Cells # 0.0 K/mm3 09/28/21 04:55 Pathologist Review 09/24/21 14:58 WBC Morphology Not Reportable 09/28/21 04:55 Hypersegmented Neuts Not Reportable 09/28/21 04:55 Hyposegmented Neuts Not Reportable 09/28/21 04:55 Hypogranular Neuts Not Reportable 09/28/21 04:55 Smudge Cells Not Reportable 09/28/21 04:55 Toxic Granulation Not Reportable 09/28/21 04:55 Toxic Vacuolation Not Reportable 09/28/21 04:55 Dohle Bodies Not Reportable 09/28/21 04:55 Pelger-Huet Anomaly Not Reportable 09/28/21 04:55 Marlene Rods Not Reportable 09/28/21 04:55 Platelet Estimate Consistent w auto 09/28/21 04:55 Clumped Platelets Not Reportable 09/28/21 04:55 Plt Clumps, EDTA Not Reportable 09/28/21 04:55 Large Platelets Not Reportable 09/28/21 04:55 Giant Platelets Not Reportable 09/28/21 04:55 Platelet Satelliting Not Reportable 09/28/21 04:55 Plt Morphology Comment Not Reportable 09/28/21 04:55 RBC Morphology Not Reportable 09/28/21 04:55 Dimorphic RBCs Not Reportable 09/28/21 04:55 Polychromasia Not Reportable 09/28/21 04:55 Hypochromasia Not Reportable 09/28/21 04:55 Poikilocytosis Not Reportable 09/28/21 04:55 Anisocytosis 1+ 09/28/21 04:55 Microcytosis Not Reportable 09/28/21 04:55 Macrocytosis Not Reportable 09/28/21 04:55 Spherocytes Not Reportable 09/28/21 04:55 Pappenheimer Bodies Not Reportable 09/28/21 04:55 Sickle Cells Not Reportable 09/28/21 04:55 Target Cells Not Reportable 09/28/21 04:55 Tear Drop Cells Not Reportable 09/28/21 04:55 Ovalocytes Not Reportable 09/28/21 04:55 Helmet Cells Not Reportable 09/28/21 04:55 [place] Bodies Not Reportable 09/28/21 04:55 [place] Rings Not Reportable 09/28/21 04:55 [place] Cells Not Reportable 09/28/21 04:55 Bite Cells Not Reportable 09/28/21 04:55 Crenated Cell Not Reportable 09/28/21 04:55 Elliptocytes Not Reportable 09/28/21 04:55 Acanthocytes (Spur) Not Reportable 09/28/21 04:55 Rouleaux Not Reportable 09/28/21 04:55 Hemoglobin C Crystals Not Reportable 09/28/21 04:55 Schistocytes Not Reportable 09/28/21 04:55 Malaria parasites Not Reportable 09/28/21 04:55 Flaco Bodies Not Reportable 09/28/21 04:55 Hem Pathologist Commnt No 09/28/21 04:55 Sodium 139 mmol/L (137-145) 09/27/21 08:28 Potassium 3.7 mmol/L (3.6-5.0) 09/27/21 08:28 Chloride 106.2 mmol/L (98-107) 09/27/21 08:28 Carbon Dioxide 22 mmol/L (22-30) 09/27/21 08:28 Anion Gap 15 mmol/L 09/27/21 08:28 BUN 15 mg/dL (7-17) 09/27/21 08:28 Creatinine 0.6 mg/dL (0.6-1.2) 09/27/21 08:28 Estimated GFR > 60 ml/min 09/27/21 08:28 BUN/Creatinine Ratio 25 % 09/27/21 08:28 Glucose 137 mg/dL (65-100) H 09/27/21 08:28 Lactic Acid 1.00 mmol/L (0.7-2.0) 09/24/21 21:54 Calcium 8.2 mg/dL (8.4-10.2) L 09/27/21 08:28 Total Bilirubin 0.60 mg/dL (0.1-1.2) 09/24/21 14:58 AST 16 units/L (5-40) 09/24/21 14:58 ALT 17 units/L (7-56) 09/24/21 14:58 Alkaline Phosphatase 83 units/L (35-129) 09/24/21 14:58 Total Protein 6.1 g/dL (6.3-8.2) L 09/24/21 14:58 Albumin 3.3 g/dL (3.9-5) L 09/24/21 14:58 Albumin/Globulin Ratio 1.2 % 09/24/21 14:58 Urine Color Yellow (Yellow) 09/24/21 14:49 Urine Turbidity Slightly-cloudy (Clear) 09/24/21 14:49 Urine pH 6.0 (5.0-7.0) 09/24/21 14:49 Ur Specific [place] 1.017 (1.003-1.030) 09/24/21 14:49 Urine Protein 30 mg/dl mg/dL (Negative) 09/24/21 14:49 Urine Glucose (UA) Neg mg/dL (Negative) 09/24/21 14:49 Urine Ketones Neg mg/dL (Negative) 09/24/21 14:49 Urine Blood Neg (Negative) 09/24/21 14:49 Urine Nitrite Neg (Negative) 09/24/21 14:49 Ur Reducing Substances Not Reportable 09/24/21 14:49 Urine Bilirubin Neg (Negative) 09/24/21 14:49 Urine Ictotest Not Reportable 09/24/21 14:49 Urine Urobilinogen < 2.0 mg/dL (<2.0) 09/24/21 14:49 Ur Leukocyte Esterase Neg (Negative) 09/24/21 14:49 Urine WBC (Auto) 4.0 /HPF (0.0-6.0) 09/24/21 14:49 Urine RBC (Auto) 2.0 /HPF (0.0-6.0) 09/24/21 14:49 U Epithel Cells (Auto) 18.0 /HPF (0-13.0) H 09/24/21 14:49 Urine Mucus Few /HPF 09/24/21 14:49 Urine HCG, Qual Negative (Negative) 09/24/21 14:49 Blood Type A POSITIVE 09/26/21 10:06 Antibody Screen Negative 09/26/21 10:06 Microbiology: Microbiology 09/24/21 19:03 Peripheral/Venous Blood Culture - Preliminary NO GROWTH AFTER 72 HOURS 09/24/21 19:03 Peripheral/Venous Blood Culture - Preliminary NO GROWTH AFTER 72 HOURS Doss/IV: Voiding Method Toilet Active Medications - Current Medications Current Medications: Generic Name Dose Route Start Last Admin Trade Name Freq PRN Reason Stop Dose Admin Acetaminophen 650 mg 09/24/21 18:07 09/25/21 12:19 Acetaminophen 325 Mg Tab PO 650 mg Q4H PRN Administration Pain MILD(1-3)/Fever >100.5/BERG Albuterol 2.5 mg 09/24/21 18:07 Albuterol 2.5 Mg/3 Ml Nebu IH Q4HRT PRN Shortness Of Breath Hydromorphone HCl 1 mg 09/25/21 10:00 09/28/21 08:25 Hydromorphone 1 Mg/1 Ml Inj IV 1 mg Q6H PRN Administration Pain , Severe (7-10) Hydromorphone HCl 0.5 mg 09/25/21 10:00 09/27/21 22:07 Hydromorphone 1 Mg/1 Ml Inj IV 0.5 mg Q4H PRN Administration Pain, Moderate (4-6) Cefepime HCl 2 gm in 100 mls @ 200 mls/hr 09/24/21 19:00 09/28/21 11:00 Cefepime/Ns 2 Gm/100 Ml IV 200 mls/hr Q8H JAZ Administration Protocol Metronidazole 500 mg in 100 mls @ 100 mls/hr 09/24/21 19:00 09/28/21 12:21 Flagyl 500 Mg/100 Ml IV 100 mls/hr Q8H JAZ Administration Protocol Ketorolac Tromethamine 30 mg 09/25/21 13:00 09/28/21 12:21 Ketorolac 30 Mg/1 Ml Inj IV 09/30/21 12:59 30 mg Q6HR JAZ Administration Ondansetron HCl 4 mg 09/24/21 18:07 09/28/21 08:25 Ondansetron 4 Mg/2 Ml Inj IV 4 mg Q8H PRN Administration Nausea And Vomiting Polyethylene Glycol 17 gm 09/28/21 12:00 09/28/21 12:22 Polyethylene Glycol 3350 17 Gm Powder PO 17 gm BID JAZ Administration Sodium Chloride 10 ml 09/24/21 22:00 09/27/21 22:54 Sodium Chloride 0.9% 10 Ml Flush Syringe IV 10 ml BID JAZ Administration Sodium Chloride 10 ml 09/24/21 18:07 09/25/21 08:34 Sodium Chloride 0.9% 10 Ml Flush Syringe IV 10 ml PRN PRN Administration LINE FLUSH Nutrition/Malnutrition Assess - Dietary Evaluation Nutrition/Malnutrition Findings: Nutrition Notes Start: 09/25/21 15:31 Freq: Status: Active Protocol: Document 09/27/21 11:51 BRYAN (Rec: 09/27/21 11:59 BRYAN [id number]) Nutrition Notes Initial or Follow up Reassessment Other Pertinent Diagnosis Pericolonic abscess s/p drainage, perforated diverticulitis, peritonitis Current Diet Cl liq Labs/Tests reviewed Pertinent Medications reviewed Height 5 ft 7 in Weight 90.718 kg [place] Body Weight (kg) 61.36 BMI 31.3 Weight Status Obese Subjective/Other Information Diet advanced last pm. Burn Absent Trauma Absent Minimum of two criteria No #1 Nutrition Diagnosis Altered GI function As Evidenced by Signs and Symptoms diet just advanced last pm Diagnosis Progress(for reassessment Continues documentation) Is patient on ventilator? No Is Patient Ambulatory and/or Out of Bed Yes REE-([facility]-ambulatory/OOB) [ 2144.753 NUTR.[id number]] Kcal/Kg value to use for calculation 19 Approximate Energy Requirements Using 1724 kcal/Kg Calculation Used for Recommendations Kcal/kg Additional Notes Pro needs 0.8-1g/kg adjBW: 61- 76g/day Fluid needs 1ml/kcal Nutrition Intervention Change Diet Order: Continue current doet order; advance as tolerated Goal #1 PO tolerance Goal #2 Continued diet advancement to meet nutrient needs Follow-Up By: 09/29/21 Additional Comments F/U: diet advancement, PO tolerance
--- NOTE | 2021-09-28 13:38 | Progress Note ---
Assessment and Plan Postoperative day #2 status post diagnostic laparoscopy with drainage of pericolonic abscess and drain placement. Afebrile with low-grade tachycardia. Leukocytosis is trending down but pain control is being moderately controlled. We will continue to closely follow. Since YURIDIA drain character has changed will resume n.p.o., may decide to repeat CT scan tomorrow. Discussed with patient at length that if clinically she is showing signs that colonic perforation is not controlled may require surgery with partial colonic resection possible colostomy. Subjective Date of service: 09/28/21 Narrative: No acute events overnight. Patient says that she feels like her left side is starting to hurt more like before. She was tolerating liquids well. Objective Vital Signs - 12hr 09/28/21 09/28/21 09/28/21 01:39 04:50 05:58 Temperature 99.0 F 98.0 F Pulse Rate 104 H 105 H Respiratory 18 16 Rate Blood Pressure 132/83 138/86 Blood Pressure 137/79 [Left] O2 Sat by Pulse 99 Oximetry 09/28/21 09/28/21 10:00 11:56 Temperature 97.8 F Pulse Rate Respiratory 18 Rate Blood Pressure 134/77 Blood Pressure [Left] O2 Sat by Pulse 96 Oximetry - General physical appearance no distress, moderate pain - Respiratory normal expansion, normal respiratory effort - Abdomen soft, not guarding, not rigid, other (Incisions clean dry and intact, YURIDIA drain serous with turbid debris and no foul odor. Left side tender to palpation.) - Labs 09/28/21 04:55 09/27/21 08:28
[2021-09-28 16:23] LABS: Blood Urea Nitrogen 11 mg/dL (7-17); Calcium 7.9 mg/dL (8.4-10.2); Hemolysis Index 0
[2021-09-28 16:25] LABS: BUN/Creatinine Ratio 22
[2021-09-28] MEDS: ACETAMINOPHEN 325 MG TAB PO PRN (18:14)
[2021-09-29] MEDS: KETOROLAC 30 MG/1 ML INJ IV SCH ×4 (00:16→14:23)
[2021-09-29] MEDS: ONDANSETRON 4 MG/2 ML INJ IV PRN ×3 (00:18→21:06)
[2021-09-29] MEDS: CEFEPIME/NS 2 GM/100 ML 2 GM/100 ML BAG IV SCH ×3 (02:36→21:23)
[2021-09-29] MEDS: metroNIDAZOLE/NS 500 MG/100 ML 500 MG/100 ML BAG IV SCH ×3 (03:25→21:24)
[2021-09-29] MEDS: HYDROmorphone 1 MG/1 ML INJ IV PRN ×4 (04:38→20:54)
[2021-09-29 08:09] LABS: Hematocrit 27.3 % (30.3-42.9); Hemoglobin 9.1 gm/dl (10.1-14.3); Mean Corpuscular HGB Conc 33 % (30-34); Mean Corpuscular Volume 85 fl (79-97); Platelet Count 469 K/mm3 (140-440); Red Cell Distribution Width 15.3 % (13.2-15.2)
[2021-09-29 09:34] LABS: Band Neutrophils # (Manual) 0.5 K/mm3; Basophils % (Manual) 0 % (0.0-1.8); Myelocytes # (Manual) 0.2 K/mm3; Promyelocytes # (Manual) 0.3 K/mm3; Total Cells Counted 100
[2021-09-29 09:35] LABS: Anisocytosis 1+; Large Platelets Few; Platelet Estimate Consistent w Auto
[2021-09-29] MEDS ORDERED: POTASSIUM CHLORIDE ER 20 MEQ TAB PO SCH (10:00)
--- NOTE | 2021-09-29 11:48 | Cat Scan Report ---
CT ABDOMEN AND PELVIS WITH CONTRAST INDICATION / CLINICAL INFORMATION: aleisha-colonic abscess s/p drainage. persistent wbc 100 ml omni 300 . TECHNIQUE: Axial CT images were obtained through the abdomen and pelvis after 100 cc of Omnipaque 300 IV contras t. Sagittal and coronal reformatted images. All CT scans at this location are performed using CT dose reduction for ALARA by means of automated exposure control. COMPARISON: 09/24/2021 FINDINGS: LOWER CHEST: Small to medium layering bilateral pleural effusions and bibasilar atelectatic changes h ave developed. LIVER: Stable mild hepatic steatosis. GALLBLADDER: No significant abnormality. BILE DUCTS: No significant abnormality. PANCREAS: No significant abnormality. SPLEEN: No significant abnormality. ADRENALS: Stable 3.6 cm right adrenal lesion. The left adrenal gland remains normal. RIGHT KIDNEY and URETER: No significant abnormality. LEFT KIDNEY and URETER: No significant abnormality. STOMACH and SMALL BOWEL: No significant abnormality. COLON: Mild diverticular changes with surrounding inflammation in the left lower quadrant is again se en consistent with acute diverticulitis. Previously described diverticular abscess has significantly decreased in size from 3.2 x 2.1 cm to 1.7 x 1.1 cm. No new pelvic abscess is appreciated. A surgical drain has been placed in the pelvis APPENDIX: Not clearly identified. PERITONEUM: No free fluid. No free air. LYMPH NODES: No significant adenopathy. AORTA and ARTERIES: No significant abnormality. IVC and VEINS: No significant abnormality. URINARY BLADDER: No significant abnormality. REPRODUCTIVE ORGANS: Stable moderate uterine fibroid disease. ADDITIONAL FINDINGS: None. SKELETAL SYSTEM: No significant abnormality. IMPRESSION: Near complete evacuation of the peridiverticular abscess in left lower quadrant as described. No new pelvic abscess is appreciated. There are persistent inflammatory changes consistent with diverticuli tis. Surgical drain has been placed in the pelvis since the previous exam. Small to medium bilateral pleural effusions have developed. Mild hepatic steatosis. Stable right adrenal lesion which may represent a myelolipoma. Uterine fibroid disease. Signer Name: Jon Ferguson Jr, MD Signed: 09/29/2021 11:03 AM Workstation Name: [id number]
--- NOTE | 2021-09-29 13:20 | Progress Note ---
Assessment and Plan Postoperative day #3 status post diagnostic laparoscopy with drainage of pericolonic abscess and drain placement. Low-grade fever with improvement tachycardia. Leukocytosis is stable but pain control is being moderately controlled. We will continue to closely follow. Unclear etiology of purulent drainage. Concerned about persistent perforation of the colon. After discussing with Dr. Ferguson in radiology will order barium enema study tomorrow. Pending clinical progress patient may need to return to surgery for treatment to include abdominal washout with drain reposition to possible sigmoid colectomy with colostomy. Patient expressed understanding of pathology and treatment options. We will continue to follow closely. Subjective Date of service: 09/29/21 Narrative: No acute events overnight. Patient says that she continues to have significant left-sided and left back pain. Patient had a CT scan today that was read with the radiologist that showed decrease in the size of the pericolonic abscess. Drain is present. There were no additional fluid collections, or free air. Objective Vital Signs - 12hr 09/29/21 09/29/21 09/29/21 04:34 08:56 10:00 Temperature 99.8 F H Pulse Rate 88 Respiratory 20 18 Rate Respiratory 18 Rate [Lower Abdomen] Blood Pressure 129/78 [Left] O2 Sat by Pulse 100 97 Oximetry 09/29/21 09/29/21 10:49 12:00 Temperature 99.1 F Pulse Rate 93 H Respiratory 18 18 Rate Respiratory Rate [Lower Abdomen] Blood Pressure 139/85 [Left] O2 Sat by Pulse 100 Oximetry - General physical appearance well developed, no distress, moderate pain - Eyes PERRL - ENT no hearing loss - Respiratory normal expansion, normal respiratory effort - Abdomen soft, other (Very tender palpation left lower quadrant left mid abdomen. YURIDIA drain with purulent drainage. No significant odor.) - Labs 09/29/21 07:02 09/28/21 15:35 Diabetes panel 09/28/21 Range/Units 15:35 Sodium 142 (137-145) mmol/L Potassium 3.3 L (3.6-5.0) mmol/L Chloride 109.4 H (98-107) mmol/L Carbon Dioxide 20 L (22-30) mmol/L BUN 11 (7-17) mg/dL Creatinine 0.5 L (0.6-1.2) mg/dL Glucose 94 (65-100) mg/dL Calcium 7.9 L (8.4-10.2) mg/dL Calcium panel 09/28/21 Range/Units 15:35 Calcium 7.9 L (8.4-10.2) mg/dL Pituitary panel 09/28/21 Range/Units 15:35 Sodium 142 (137-145) mmol/L Potassium 3.3 L (3.6-5.0) mmol/L Chloride 109.4 H (98-107) mmol/L Carbon Dioxide 20 L (22-30) mmol/L BUN 11 (7-17) mg/dL Creatinine 0.5 L (0.6-1.2) mg/dL Glucose 94 (65-100) mg/dL Calcium 7.9 L (8.4-10.2) mg/dL Adrenal panel 09/28/21 Range/Units 15:35 Sodium 142 (137-145) mmol/L Potassium 3.3 L (3.6-5.0) mmol/L Chloride 109.4 H (98-107) mmol/L Carbon Dioxide 20 L (22-30) mmol/L BUN 11 (7-17) mg/dL Creatinine 0.5 L (0.6-1.2) mg/dL Glucose 94 (65-100) mg/dL Calcium 7.9 L (8.4-10.2) mg/dL
[2021-09-29] MEDS: POLYETHYLENE GLYCOL 3350 17 GM POWDER PO SCH ×2 (14:14→23:35)
--- NOTE | 2021-09-29 14:32 | Progress Note ---
Assessment and Plan Assessment and plan: #Sepsis-improving #Diverticulitis with abscess #Peritonitis #Constipation -CT abd/pelvis showed diverticulitis with abscess -s/p diagnositic laparatomy and drain placement 09/26/2021 per general surgery. General surgery consulted; appreciate recs. -Continue cefepime 2 g every 24 hours -Continue n.p.o. per general surgery. Pending CT abdomen/pelvis with contrast for evaluation of residual abscess versus remaining purulence from original procedure -Possible need for revisit 2 OR for washout versus sigmoidectomy and colostomy Continue to monitor #Volume depletion -likely 2/2 to poor PO intake due to abdominal pain and vomiting -continue IVFs, can discontinue after patient resumes PO intake #Hypokalemia -Potassium 3.3 -Repleted. We will monitor with BMP in the morning. #Advance care planning -Disease education conducted, care plan discussed, diagnoses discussed, prognosis discussed, patient is full code. Patient knowledges understanding and agreement with care plan Time: +30 minutes. Disposition Plan: Continue medical management Total Time Spent with Patient (Minutes): 45 minutes History Interval history: No acute events overnight. Hospitalist Physical - Constitutional Vitals: Temp Pulse Resp BP Pulse Ox 99.1 F 93 H 18 139/85 100 09/29/21 12:00 09/29/21 12:00 09/29/21 12:00 09/29/21 12:00 09/29/21 12:00 General appearance: Present: mild distress, obese - EENT Eyes: Present: PERRL, EOM intact ENT: hearing intact, clear oral mucosa, dentition normal - Neck Neck: Present: supple, normal ROM - Respiratory Respiratory effort: normal Respiratory: left: diminished, rales - Cardiovascular Rhythm: regular Heart Sounds: Present: S1 & S2 - Extremities Extremities: no ischemia, pulses intact, pulses symmetrical, normal temperature, normal color, Full ROM Extremity abnormal: edema (Trace edema bilateral lower extremities to lower thighs) Peripheral Pulses: within normal limits - Abdominal General gastrointestinal: soft, tender (Appropriate tenderness at incision site), non-distended, hypoactive bowel sounds, other (YURIDIA drain in place with purulent fluid collection) - Integumentary Integumentary: Present: clear, warm, dry - Psychiatric Psychiatric: appropriate mood/affect, intact judgment & insight, memory intact, cooperative - Neurologic Neurologic: CNII-XII intact, moves all extremities - Allied Health Allied health notes reviewed: nursing Results - Labs CBC & Chem 7: 09/29/21 07:02 09/28/21 15:35 Labs: Laboratory Last Values WBC 16.5 K/mm3 (4.5-11.0) H 09/29/21 07:02 RBC 3.20 M/mm3 (3.65-5.03) L 09/29/21 07:02 Hgb 9.1 gm/dl (10.1-14.3) L 09/29/21 07:02 Hct 27.3 % (30.3-42.9) L 09/29/21 07:02 MCV 85 fl (79-97) 09/29/21 07:02 MCH 28 pg (28-32) 09/29/21 07:02 MCHC 33 % (30-34) 09/29/21 07:02 RDW 15.3 % (13.2-15.2) H 09/29/21 07:02 Plt Count 469 K/mm3 (140-440) H 09/29/21 07:02 Kaufman % (Auto) 5.9 % (0.0-7.3) 09/28/21 04:55 Eos % (Auto) 0.4 % (0.0-4.3) 09/28/21 04:55 Kaufman # (Auto) 0.9 K/mm3 (0.0-0.8) H 09/28/21 04:55 Eos # (Auto) 0.1 K/mm3 (0.0-0.4) 09/28/21 04:55 Baso # (Auto) 0.0 K/mm3 (0.0-0.1) 09/28/21 04:55 Add Manual Diff Complete 09/29/21 07:02 Total Counted 100 09/29/21 07:02 Seg Neutrophils % 89.3 % (40.0-70.0) H 09/28/21 04:55 Seg Neuts % (Manual) 80.0 % (40.0-70.0) H 09/29/21 07:02 Band Neutrophils % 3.0 % 09/29/21 07:02 Lymphocytes % (Manual) 8.0 % (13.4-35.0) L 09/29/21 07:02 Reactive Lymphs % (Man) 0 % 02/23/22 07:02 Monocytes % (Manual) 5.0 % (0.0-7.3) 09/29/21 07:02 Eosinophils % (Manual) 1.0 % (0.0-4.3) 09/29/21 07:02 Basophils % (Manual) 0 % (0.0-1.8) 09/29/21 07:02 Metamyelocytes % 0 % 09/29/21 07:02 Myelocytes % 1.0 % 09/29/21 07:02 Promyelocytes % 2.0 % 09/29/21 07:02 Blast Cells % 0 % 09/29/21 07:02 Nucleated RBC % Not Reportable 09/29/21 07:02 Seg Neutrophils # 14.0 K/mm3 (1.8-7.7) H 09/28/21 04:55 Seg Neutrophils # Man 13.2 K/mm3 (1.8-7.7) H 09/29/21 07:02 Band Neutrophils # 0.5 K/mm3 09/29/21 07:02 Lymphocytes # (Manual) 1.3 K/mm3 (1.2-5.4) 09/29/21 07:02 Abs React Lymphs (Man) 0.0 K/mm3 09/29/21 07:02 Monocytes # (Manual) 0.8 K/mm3 (0.0-0.8) 09/29/21 07:02 Eosinophils # (Manual) 0.2 K/mm3 (0.0-0.4) 09/29/21 07:02 Basophils # (Manual) 0.0 K/mm3 (0.0-0.1) 09/29/21 07:02 Metamyelocytes # 0.0 K/mm3 09/29/21 07:02 Myelocytes # 0.2 K/mm3 09/29/21 07:02 Promyelocytes # 0.3 K/mm3 09/29/21 07:02 Blast Cells # 0.0 K/mm3 09/29/21 07:02 Pathologist Review 09/24/21 14:58 WBC Morphology Not Reportable 09/29/21 07:02 Hypersegmented Neuts Not Reportable 09/29/21 07:02 Hyposegmented Neuts Not Reportable 09/29/21 07:02 Hypogranular Neuts Not Reportable 09/29/21 07:02 Smudge Cells Not Reportable 09/29/21 07:02 Toxic Granulation Not Reportable 09/29/21 07:02 Toxic Vacuolation Not Reportable 09/29/21 07:02 Dohle Bodies Not Reportable 09/29/21 07:02 Pelger-Huet Anomaly Not Reportable 09/29/21 07:02 Marlene Rods Not Reportable 09/29/21 07:02 Platelet Estimate Consistent w auto 09/29/21 07:02 Clumped Platelets Not Reportable 09/29/21 07:02 Plt Clumps, EDTA Not Reportable 09/29/21 07:02 Large Platelets Few 09/29/21 07:02 Giant Platelets Not Reportable 09/29/21 07:02 Platelet Satelliting Not Reportable 09/29/21 07:02 Plt Morphology Comment Not Reportable 09/29/21 07:02 RBC Morphology Not Reportable 09/29/21 07:02 Dimorphic RBCs Not Reportable 09/29/21 07:02 Polychromasia Not Reportable 09/29/21 07:02 Hypochromasia Not Reportable 09/29/21 07:02 Poikilocytosis Not Reportable 09/29/21 07:02 Anisocytosis 1+ 09/29/21 07:02 Microcytosis Not Reportable 09/29/21 07:02 Macrocytosis Not Reportable 09/29/21 07:02 Spherocytes Not Reportable 09/29/21 07:02 Pappenheimer Bodies Not Reportable 09/29/21 07:02 Sickle Cells Not Reportable 09/29/21 07:02 Target Cells Not Reportable 09/29/21 07:02 Tear Drop Cells Not Reportable 09/29/21 07:02 Ovalocytes Not Reportable 09/29/21 07:02 Helmet Cells Not Reportable 09/29/21 07:02 [place] Bodies Not Reportable 09/29/21 07:02 [place] Rings Not Reportable 09/29/21 07:02 [place] Cells Not Reportable 09/29/21 07:02 Bite Cells Not Reportable 09/29/21 07:02 Crenated Cell Not Reportable 09/29/21 07:02 Elliptocytes Not Reportable 09/29/21 07:02 Acanthocytes (Spur) Not Reportable 09/29/21 07:02 Rouleaux Not Reportable 09/29/21 07:02 Hemoglobin C Crystals Not Reportable 09/29/21 07:02 Schistocytes Not Reportable 09/29/21 07:02 Malaria parasites Not Reportable 09/29/21 07:02 Flaco Bodies Not Reportable 09/29/21 07:02 Hem Pathologist Commnt No 09/29/21 07:02 Sodium 142 mmol/L (137-145) 09/28/21 15:35 Potassium 3.3 mmol/L (3.6-5.0) L 09/28/21 15:35 Chloride 109.4 mmol/L (98-107) H 09/28/21 15:35 Carbon Dioxide 20 mmol/L (22-30) L 09/28/21 15:35 Anion Gap 16 mmol/L 09/28/21 15:35 BUN 11 mg/dL (7-17) 09/28/21 15:35 Creatinine 0.5 mg/dL (0.6-1.2) L 09/28/21 15:35 Estimated GFR > 60 ml/min 09/28/21 15:35 BUN/Creatinine Ratio 22 % 09/28/21 15:35 Glucose 94 mg/dL (65-100) 09/28/21 15:35 Lactic Acid 1.00 mmol/L (0.7-2.0) 09/24/21 21:54 Calcium 7.9 mg/dL (8.4-10.2) L 09/28/21 15:35 Total Bilirubin 0.60 mg/dL (0.1-1.2) 09/24/21 14:58 AST 16 units/L (5-40) 09/24/21 14:58 ALT 17 units/L (7-56) 09/24/21 14:58 Alkaline Phosphatase 83 units/L (35-129) 09/24/21 14:58 Total Protein 6.1 g/dL (6.3-8.2) L 09/24/21 14:58 Albumin 3.3 g/dL (3.9-5) L 09/24/21 14:58 Albumin/Globulin Ratio 1.2 % 09/24/21 14:58 Urine Color Yellow (Yellow) 09/24/21 14:49 Urine Turbidity Slightly-cloudy (Clear) 09/24/21 14:49 Urine pH 6.0 (5.0-7.0) 09/24/21 14:49 Ur Specific [place] 1.017 (1.003-1.030) 09/24/21 14:49 Urine Protein 30 mg/dl mg/dL (Negative) 09/24/21 14:49 Urine Glucose (UA) Neg mg/dL (Negative) 09/24/21 14:49 Urine Ketones Neg mg/dL (Negative) 09/24/21 14:49 Urine Blood Neg (Negative) 09/24/21 14:49 Urine Nitrite Neg (Negative) 09/24/21 14:49 Ur Reducing Substances Not Reportable 09/24/21 14:49 Urine Bilirubin Neg (Negative) 09/24/21 14:49 Urine Ictotest Not Reportable 09/24/21 14:49 Urine Urobilinogen < 2.0 mg/dL (<2.0) 09/24/21 14:49 Ur Leukocyte Esterase Neg (Negative) 09/24/21 14:49 Urine WBC (Auto) 4.0 /HPF (0.0-6.0) 09/24/21 14:49 Urine RBC (Auto) 2.0 /HPF (0.0-6.0) 09/24/21 14:49 U Epithel Cells (Auto) 18.0 /HPF (0-13.0) H 09/24/21 14:49 Urine Mucus Few /HPF 09/24/21 14:49 Urine HCG, Qual Negative (Negative) 09/24/21 14:49 Blood Type A POSITIVE 09/26/21 10:06 Antibody Screen Negative 09/26/21 10:06 Microbiology: Microbiology 09/24/21 19:03 Peripheral/Venous Blood Culture - Preliminary NO GROWTH AFTER 4 DAYS 09/24/21 19:03 Peripheral/Venous Blood Culture - Preliminary NO GROWTH AFTER 4 DAYS Doss/IV: Voiding Method Toilet Active Medications - Current Medications Current Medications: Generic Name Dose Route Start Last Admin Trade Name Freq PRN Reason Stop Dose Admin Acetaminophen 650 mg 09/24/21 18:07 09/28/21 18:14 Acetaminophen 325 Mg Tab PO 650 mg Q4H PRN Administration Pain MILD(1-3)/Fever >100.5/BERG Albuterol 2.5 mg 09/24/21 18:07 Albuterol 2.5 Mg/3 Ml Nebu IH Q4HRT PRN Shortness Of Breath Hydromorphone HCl 1 mg 09/25/21 10:00 09/29/21 04:38 Hydromorphone 1 Mg/1 Ml Inj IV 1 mg Q6H PRN Administration Pain , Severe (7-10) Hydromorphone HCl 0.5 mg 09/25/21 10:00 09/29/21 10:49 Hydromorphone 1 Mg/1 Ml Inj IV 0.5 mg Q4H PRN Administration Pain, Moderate (4-6) Cefepime HCl 2 gm in 100 mls @ 200 mls/hr 09/24/21 19:00 09/29/21 10:37 Cefepime/Ns 2 Gm/100 Ml IV 200 mls/hr Q8H JAZ Administration Protocol Metronidazole 500 mg in 100 mls @ 100 mls/hr 09/24/21 19:00 09/29/21 10:38 Flagyl 500 Mg/100 Ml IV 100 mls/hr Q8H JAZ Administration Protocol Ketorolac Tromethamine 30 mg 09/25/21 13:00 09/29/21 08:26 Ketorolac 30 Mg/1 Ml Inj IV 09/30/21 12:59 30 mg Q6HR JAZ Administration Ondansetron HCl 4 mg 09/24/21 18:07 09/29/21 08:34 Ondansetron 4 Mg/2 Ml Inj IV 4 mg Q8H PRN Administration Nausea And Vomiting Polyethylene Glycol 17 gm 09/28/21 12:00 09/29/21 14:14 Polyethylene Glycol 3350 17 Gm Powder PO Not Given BID JAZ Potassium Chloride 40 meq 09/29/21 10:00 09/29/21 10:37 Potassium Chloride Er 20 Meq Tab PO 09/29/21 22:01 40 meq BID JAZ Administration Sodium Chloride 10 ml 09/24/21 22:00 09/29/21 10:38 Sodium Chloride 0.9% 10 Ml Flush Syringe IV 10 ml BID JAZ Administration Sodium Chloride 10 ml 09/24/21 18:07 09/25/21 08:34 Sodium Chloride 0.9% 10 Ml Flush Syringe IV 10 ml PRN PRN Administration LINE FLUSH Nutrition/Malnutrition Assess - Dietary Evaluation Nutrition/Malnutrition Findings: Nutrition Notes Start: 09/25/21 15:31 Freq: Status: Active Protocol: Document 09/27/21 11:51 BRYAN (Rec: 09/27/21 11:59 BRYAN [id number]) Nutrition Notes Initial or Follow up Reassessment Other Pertinent Diagnosis Pericolonic abscess s/p drainage, perforated diverticulitis, peritonitis Current Diet Cl liq Labs/Tests reviewed Pertinent Medications reviewed Height 5 ft 7 in Weight 90.718 kg [place] Body Weight (kg) 61.36 BMI 31.3 Weight Status Obese Subjective/Other Information Diet advanced last pm. Burn Absent Trauma Absent Minimum of two criteria No #1 Nutrition Diagnosis Altered GI function As Evidenced by Signs and Symptoms diet just advanced last pm Diagnosis Progress(for reassessment Continues documentation) Is patient on ventilator? No Is Patient Ambulatory and/or Out of Bed Yes REE-(Clay-St. Jeor-ambulatory/OOB) [ 2144.753 [id number]] Kcal/Kg value to use for calculation 19 Approximate Energy Requirements Using 1724 kcal/Kg Calculation Used for Recommendations Kcal/kg Additional Notes Pro needs 0.8-1g/kg adjBW: 61- 76g/day Fluid needs 1ml/kcal Nutrition Intervention Change Diet Order: Continue current doet order; advance as tolerated Goal #1 PO tolerance Goal #2 Continued diet advancement to meet nutrient needs Follow-Up By: 09/29/21 Additional Comments F/U: diet advancement, PO tolerance
[2021-09-29] MEDS ORDERED: FUROSEMIDE 40 MG/4 ML INJ IV NR (15:00)
[2021-09-29] MEDS: POTASSIUM CHLORIDE 10 MEQ 10 MEQ/100 ML BAG IV SCH ×2 (17:27→21:24)
[2021-09-30] MEDS: KETOROLAC 30 MG/1 ML INJ IV SCH ×4 (02:17→15:06)
[2021-09-30] MEDS: CEFEPIME/NS 2 GM/100 ML 2 GM/100 ML BAG IV SCH ×3 (02:19→21:03)
[2021-09-30] MEDS: metroNIDAZOLE/NS 500 MG/100 ML 500 MG/100 ML BAG IV SCH ×3 (02:19→21:17)
[2021-09-30] MEDS: POTASSIUM CHLORIDE 10 MEQ 10 MEQ/100 ML BAG IV SCH ×2 (02:24→03:43)
[2021-09-30 06:03] LABS: Hematocrit 28.4 % (30.3-42.9); Hemoglobin 9.2 gm/dl (10.1-14.3); Mean Corpuscular HGB Conc 33 % (30-34); Mean Corpuscular Volume 84 fl (79-97); Platelet Count 530 K/mm3 (140-440); Red Blood Count 3.37 M/mm3 (3.65-5.03); Red Cell Distribution Width 15.4 % (13.2-15.2)
[2021-09-30 06:28] LABS: BUN/Creatinine Ratio 22; Blood Urea Nitrogen 11 mg/dL (7-17); Hemolysis Index 9
[2021-09-30 06:49] LABS: Basophils % (Manual) 0 % (0.0-1.8); Eosinophils % (Manual) 0 % (0.0-4.3); Monocytes % (Manual) 0 % (0.0-7.3); Total Cells Counted 100
[2021-09-30 06:51] LABS: Anisocytosis 1+; Large Platelets Few; Platelet Estimate Cons
[2021-09-30] MEDS: POLYETHYLENE GLYCOL 3350 17 GM POWDER PO SCH ×2 (09:43→21:02)
[2021-09-30] MEDS: HYDROmorphone 1 MG/1 ML INJ IV PRN ×3 (11:25→22:56)
--- NOTE | 2021-09-30 12:04 | Cat Scan Report ---
CT ABDOMEN AND PELVIS WITH CONTRAST INDICATION / CLINICAL INFORMATION: abdominal pain, aleisha-colic abscess OMNI 300 100 ML GASTROGRAFFIN 1 20 (4) RECTALLY. TECHNIQUE: Axial CT images were obtained through the abdomen and pelvis after 100 cc of Omnipaque 300 IV contrast. Rectal contrast was administered. All CT scans at this location are performed using CT dose reduction for ALARA by means of automated exposure control. COMPARISON: 09/29/2021 and 09/24/2021 FINDINGS: LOWER CHEST: Bilateral pleural effusions with adjacent compressive atelectasis. AORTA / ARTERIES: No significant abnormality. IVC / VEINS: No significant abnormality. LYMPH NODES: No significant adenopathy. COLON/APPENDIX: There is extraluminal contrast noted extending from the appendix into the left hemiab domen which then branches outs and extends to the sigmoid colon. Multiple foci of gas are noted scatt ered throughout this contrast collection (please see series 2 images 98 through 117). This is concern ing for appendiceal rupture with fistulization to the sigmoid colon. STOMACH / SMALL BOWEL: No significant abnormality. PERITONEUM: A surgical drain is noted within the pelvis. The previously seen fluid collection within the left hemiabdomen is decreased in prominence compared to prior CTs. LIVER: No significant abnormality. GALLBLADDER: No significant abnormality. BILE DUCTS: No significant abnormality. PANCREAS: No significant abnormality. SPLEEN: No significant abnormality. ADRENALS: Redemonstrated right adrenal lesion necessitating further evaluation. RIGHT KIDNEY / URETER: No significant abnormality. LEFT KIDNEY / URETER: No significant abnormality. URINARY BLADDER: No significant abnormality. REPRODUCTIVE ORGANS: No significant abnormality. SKELETAL SYSTEM: No significant abnormality. ADDITIONAL FINDINGS: Scattered subcutaneous emphysema, likely postsurgical. There is subcutaneous lori ma throughout the visualized soft tissues. IMPRESSION: 1. Extraluminal contrast is noted extending from appendix to the sigmoid colon. This is concerning fo r a contained appendiceal rupture with fistulization to the sigmoid colon. This was discussed with Dr El Huddleston at 10:45 AM. 2. Other findings as above. Signer Name: Jose Eduardo Best DO Signed: 09/30/2021 11:58 AM Workstation Name: [id number]
--- NOTE | 2021-09-30 14:40 | Progress Note ---
Assessment and Plan Postoperative day #4 status post diagnostic laparoscopy with drainage of pericolonic abscess and drain placement. Afebrile and stable. Leukocytosis is persistent but pain control is being moderately controlled. CT barium enema done today shows findings being interpreted as possible appendiceal perforation with possible fistula to sigmoid. This is confusing as 5 days ago during diagnostic laparoscopy there were non gross abnormalities seen in the sigmoid colon or cecum although the appendix was not visualized. There were no signs of free fluid, inflammation or exudate c/w gross inflammatory process outside of the well contained lateral wall pericolic abscess. Regardless, due to the persistent leukocytosis and poor pain control with purulent YURIDIA drainage concerned about poor source control. Will take to surgery tomorrow for possible diagnositic laparposcopy, possible appendectomy, possible vincent's ect. Pt expressed understanding of the risks and benefits. Subjective Date of service: 09/30/21 Narrative: No acute clinical events overnight. Patient says that she does not feel any better compared to yesterday. There were no fevers of the last [address] hours. Patient had a [address] barium enema today that was read as showing extravasation of contrast that is contained that may be possibly coming from perforated appendix, possible fistula to sigmoid colon. Objective Vital Signs - 12hr 09/30/21 09/30/21 05:35 11:12 Temperature 99.6 F 98.3 F Pulse Rate 75 73 Respiratory 20 22 Rate Blood Pressure 144/59 143/83 O2 Sat by Pulse 96 100 Oximetry - General physical appearance well developed, no distress, moderate pain - Eyes PERRL - Abdomen soft, not guarding, other (tender to palpation left side, YURIDIA drain with purulent fluid, no foul odor.) - Labs 09/30/21 05:40 09/30/21 05:40 Diabetes panel 09/30/21 Range/Units 05:40 Sodium 140 (137-145) mmol/L Potassium 3.5 L (3.6-5.0) mmol/L Chloride 104.9 (98-107) mmol/L Carbon Dioxide 21 L (22-30) mmol/L BUN 11 (7-17) mg/dL Creatinine 0.5 L (0.6-1.2) mg/dL Glucose 88 (65-100) mg/dL Calcium 8.0 L (8.4-10.2) mg/dL Calcium panel 09/30/21 Range/Units 05:40 Calcium 8.0 L (8.4-10.2) mg/dL Pituitary panel 09/30/21 Range/Units 05:40 Sodium 140 (137-145) mmol/L Potassium 3.5 L (3.6-5.0) mmol/L Chloride 104.9 (98-107) mmol/L Carbon Dioxide 21 L (22-30) mmol/L BUN 11 (7-17) mg/dL Creatinine 0.5 L (0.6-1.2) mg/dL Glucose 88 (65-100) mg/dL Calcium 8.0 L (8.4-10.2) mg/dL Adrenal panel 09/30/21 Range/Units 05:40 Sodium 140 (137-145) mmol/L Potassium 3.5 L (3.6-5.0) mmol/L Chloride 104.9 (98-107) mmol/L Carbon Dioxide 21 L (22-30) mmol/L BUN 11 (7-17) mg/dL Creatinine 0.5 L (0.6-1.2) mg/dL Glucose 88 (65-100) mg/dL Calcium 8.0 L (8.4-10.2) mg/dL
[2021-09-30] MEDS ORDERED: MAGNESIUM CITRATE 300 ML ORAL LIQD PO ONE (15:00)
--- NOTE | 2021-09-30 17:13 | Progress Note ---
Assessment and Plan Assessment and plan: #Sepsis-improving #Diverticulitis with abscess #Peritonitis #Constipation -CT abd/pelvis showed diverticulitis with abscess -s/p diagnositic laparatomy and drain placement 09/26/2021 per general surgery. General surgery consulted; appreciate recs. -Continue cefepime 2 g every 24 hours -Continue n.p.o. per general surgery. CT barium enema (09/30/2021) revealing possible appendiceal perforation with possible fistula to sigmoid. Appendix was not visualized on prior imaging, and there was no sign of appendiceal involvement during the patient's previous operation with general surgery earlier this week. Plans are to have patient return to the OR tomorrow for possible diagnostic laparoscopy, possible appendectomy, possible Powell's, etc. Continue to monitor #Volume depletion -likely 2/2 to poor PO intake due to abdominal pain and vomiting -continue IVFs, can discontinue after patient resumes PO intake #Hypokalemiaimproving -Potassium 3.3 -Repleted. We will monitor with BMP in the morning. #Advance care planning -Disease education conducted, care plan discussed, diagnoses discussed, prognosis discussed, patient is full code. Patient knowledges understanding and agreement with care plan Time: +30 minutes. Disposition Plan: Continue medical management Total Time Spent with Patient (Minutes): 30 minutes History Interval history: No acute events overnight. Hospitalist Physical - Constitutional Vitals: Temp Pulse Resp BP Pulse Ox 98.3 F 73 22 143/83 100 09/30/21 11:12 09/30/21 11:12 09/30/21 11:12 09/30/21 11:12 09/30/21 11:12 General appearance: Present: mild distress, well-nourished, obese - EENT Eyes: Present: PERRL, EOM intact ENT: hearing intact, clear oral mucosa, dentition normal - Neck Neck: Present: supple, normal ROM - Respiratory Respiratory effort: normal Respiratory: bilateral: CTA - Cardiovascular Rhythm: regular Heart Sounds: Present: S1 & S2 - Extremities Extremities: no ischemia, pulses intact, pulses symmetrical, normal temperature, normal color, Full ROM Extremity abnormal: edema (Trace edema bilateral lower extremities to knees) Peripheral Pulses: within normal limits - Abdominal General gastrointestinal: soft, tender (Moderate tenderness of right upper quadrant and diffusely), non-distended, normal bowel sounds, other (YURIDIA drain with purulent output) Localized gastrointestinal: tender: diffuse, RUQ - Integumentary Integumentary: Present: clear, warm, dry - Psychiatric Psychiatric: appropriate mood/affect, intact judgment & insight, memory intact, cooperative - Neurologic Neurologic: CNII-XII intact, moves all extremities - Allied Health Allied health notes reviewed: nursing Results - Labs CBC & Chem 7: 09/30/21 05:40 09/30/21 05:40 Labs: Laboratory Last Values WBC 17.4 K/mm3 (4.5-11.0) H 09/30/21 05:40 RBC 3.37 M/mm3 (3.65-5.03) L 09/30/21 05:40 Hgb 9.2 gm/dl (10.1-14.3) L 09/30/21 05:40 Hct 28.4 % (30.3-42.9) L 09/30/21 05:40 MCV 84 fl (79-97) 09/30/21 05:40 MCH 27 pg (28-32) L 09/30/21 05:40 MCHC 33 % (30-34) 09/30/21 05:40 RDW 15.4 % (13.2-15.2) H 09/30/21 05:40 Plt Count 530 K/mm3 (140-440) H 09/30/21 05:40 Dunn % (Auto) 5.9 % (0.0-7.3) 09/28/21 04:55 Eos % (Auto) 0.4 % (0.0-4.3) 09/28/21 04:55 Dunn # (Auto) 0.9 K/mm3 (0.0-0.8) H 09/28/21 04:55 Eos # (Auto) 0.1 K/mm3 (0.0-0.4) 09/28/21 04:55 Baso # (Auto) 0.0 K/mm3 (0.0-0.1) 09/28/21 04:55 Add Manual Diff Complete 09/30/21 05:40 Total Counted 100 09/30/21 05:40 Seg Neutrophils % 89.3 % (40.0-70.0) H 09/28/21 04:55 Seg Neuts % (Manual) 91.0 % (40.0-70.0) H 09/30/21 05:40 Band Neutrophils % 0 % 09/30/21 05:40 Lymphocytes % (Manual) 9.0 % (13.4-35.0) L 09/30/21 05:40 Reactive Lymphs % (Man) 0 % 09/30/21 05:40 Monocytes % (Manual) 0 % (0.0-7.3) 09/30/21 05:40 Eosinophils % (Manual) 0 % (0.0-4.3) 09/30/21 05:40 Basophils % (Manual) 0 % (0.0-1.8) 09/30/21 05:40 Metamyelocytes % 0 % 09/30/21 05:40 Myelocytes % 0 % 09/30/21 05:40 Promyelocytes % 0 % 09/30/21 05:40 Blast Cells % 0 % 09/30/21 05:40 Nucleated RBC % 1.0 % (0.0-0.9) H 09/30/21 05:40 Seg Neutrophils # 14.0 K/mm3 (1.8-7.7) H 09/28/21 04:55 Seg Neutrophils # Man 15.8 K/mm3 (1.8-7.7) H 09/30/21 05:40 Band Neutrophils # 0.0 K/mm3 09/30/21 05:40 Lymphocytes # (Manual) 1.6 K/mm3 (1.2-5.4) 09/30/21 05:40 Abs React Lymphs (Man) 0.0 K/mm3 09/30/21 05:40 Monocytes # (Manual) 0.0 K/mm3 (0.0-0.8) 09/30/21 05:40 Eosinophils # (Manual) 0.0 K/mm3 (0.0-0.4) 09/30/21 05:40 Basophils # (Manual) 0.0 K/mm3 (0.0-0.1) 09/30/21 05:40 Metamyelocytes # 0.0 K/mm3 09/30/21 05:40 Myelocytes # 0.0 K/mm3 09/30/21 05:40 Promyelocytes # 0.0 K/mm3 09/30/21 05:40 Blast Cells # 0.0 K/mm3 09/30/21 05:40 Pathologist Review 09/24/21 14:58 WBC Morphology Not Reportable 09/30/21 05:40 Hypersegmented Neuts Not Reportable 09/30/21 05:40 Hyposegmented Neuts Not Reportable 09/30/21 05:40 Hypogranular Neuts Not Reportable 09/30/21 05:40 Smudge Cells Not Reportable 09/30/21 05:40 Toxic Granulation Not Reportable 09/30/21 05:40 Toxic Vacuolation Not Reportable 09/30/21 05:40 Dohle Bodies Not Reportable 09/30/21 05:40 Pelger-Huet Anomaly Not Reportable 09/30/21 05:40 Marlene Rods Not Reportable 09/30/21 05:40 Platelet Estimate Cons 09/30/21 05:40 Clumped Platelets Not Reportable 09/30/21 05:40 Plt Clumps, EDTA Not Reportable 09/30/21 05:40 Large Platelets Few 09/30/21 05:40 Giant Platelets Not Reportable 09/30/21 05:40 Platelet Satelliting Not Reportable 09/30/21 05:40 Plt Morphology Comment Not Reportable 09/30/21 05:40 RBC Morphology Not Reportable 09/30/21 05:40 Dimorphic RBCs Not Reportable 09/30/21 05:40 Polychromasia Not Reportable 09/30/21 05:40 Hypochromasia Not Reportable 09/30/21 05:40 Poikilocytosis Not Reportable 09/30/21 05:40 Anisocytosis 1+ 09/30/21 05:40 Microcytosis Not Reportable 09/30/21 05:40 Macrocytosis Not Reportable 09/30/21 05:40 Spherocytes Not Reportable 09/30/21 05:40 Pappenheimer Bodies Not Reportable 09/30/21 05:40 Sickle Cells Not Reportable 09/30/21 05:40 Target Cells Not Reportable 09/30/21 05:40 Tear Drop Cells Not Reportable 09/30/21 05:40 Ovalocytes Not Reportable 09/30/21 05:40 Helmet Cells Not Reportable 09/30/21 05:40 [place] Bodies Not Reportable 09/30/21 05:40 [place] Rings Not Reportable 09/30/21 05:40 [place] Cells Not Reportable 09/30/21 05:40 Bite Cells Not Reportable 09/30/21 05:40 Crenated Cell Not Reportable 09/30/21 05:40 Elliptocytes Not Reportable 09/30/21 05:40 Acanthocytes (Spur) Not Reportable 09/30/21 05:40 Rouleaux Not Reportable 09/30/21 05:40 Hemoglobin C Crystals Not Reportable 09/30/21 05:40 Schistocytes Not Reportable 09/30/21 05:40 Malaria parasites Not Reportable 09/30/21 05:40 Flaco Bodies Not Reportable 09/30/21 05:40 Hem Pathologist Commnt No 09/30/21 05:40 Sodium 140 mmol/L (137-145) 09/30/21 05:40 Potassium 3.5 mmol/L (3.6-5.0) L 09/30/21 05:40 Chloride 104.9 mmol/L (98-107) 09/30/21 05:40 Carbon Dioxide 21 mmol/L (22-30) L 09/30/21 05:40 Anion Gap 18 mmol/L 09/30/21 05:40 BUN 11 mg/dL (7-17) 09/30/21 05:40 Creatinine 0.5 mg/dL (0.6-1.2) L 09/30/21 05:40 Estimated GFR > 60 ml/min 09/30/21 05:40 BUN/Creatinine Ratio 22 % 09/30/21 05:40 Glucose 88 mg/dL (65-100) 09/30/21 05:40 Lactic Acid 1.00 mmol/L (0.7-2.0) 09/24/21 21:54 Calcium 8.0 mg/dL (8.4-10.2) L 09/30/21 05:40 Total Bilirubin 0.60 mg/dL (0.1-1.2) 09/24/21 14:58 AST 16 units/L (5-40) 09/24/21 14:58 ALT 17 units/L (7-56) 09/24/21 14:58 Alkaline Phosphatase 83 units/L (35-129) 09/24/21 14:58 Total Protein 6.1 g/dL (6.3-8.2) L 09/24/21 14:58 Albumin 3.3 g/dL (3.9-5) L 09/24/21 14:58 Albumin/Globulin Ratio 1.2 % 09/24/21 14:58 Urine Color Yellow (Yellow) 09/24/21 14:49 Urine Turbidity Slightly-cloudy (Clear) 09/24/21 14:49 Urine pH 6.0 (5.0-7.0) 09/24/21 14:49 Ur Specific [place] 1.017 (1.003-1.030) 09/24/21 14:49 Urine Protein 30 mg/dl mg/dL (Negative) 09/24/21 14:49 Urine Glucose (UA) Neg mg/dL (Negative) 09/24/21 14:49 Urine Ketones Neg mg/dL (Negative) 09/24/21 14:49 Urine Blood Neg (Negative) 09/24/21 14:49 Urine Nitrite Neg (Negative) 09/24/21 14:49 Ur Reducing Substances Not Reportable 09/24/21 14:49 Urine Bilirubin Neg (Negative) 09/24/21 14:49 Urine Ictotest Not Reportable 09/24/21 14:49 Urine Urobilinogen < 2.0 mg/dL (<2.0) 09/24/21 14:49 Ur Leukocyte Esterase Neg (Negative) 09/24/21 14:49 Urine WBC (Auto) 4.0 /HPF (0.0-6.0) 09/24/21 14:49 Urine RBC (Auto) 2.0 /HPF (0.0-6.0) 09/24/21 14:49 U Epithel Cells (Auto) 18.0 /HPF (0-13.0) H 09/24/21 14:49 Urine Mucus Few /HPF 09/24/21 14:49 Urine HCG, Qual Negative (Negative) 09/24/21 14:49 Blood Type A POSITIVE 09/26/21 10:06 Antibody Screen Negative 09/26/21 10:06 Microbiology: Microbiology 09/24/21 19:03 Peripheral/Venous Blood Culture - Final NO GROWTH AFTER 5 DAYS 09/24/21 19:03 Peripheral/Venous Blood Culture - Final NO GROWTH AFTER 5 DAYS Doss/IV: Voiding Method Toilet Active Medications - Current Medications Current Medications: Generic Name Dose Route Start Last Admin Trade Name Freq PRN Reason Stop Dose Admin Acetaminophen 650 mg 09/24/21 18:07 09/28/21 18:14 Acetaminophen 325 Mg Tab PO 650 mg Q4H PRN Administration Pain MILD(1-3)/Fever >100.5/BERG Albuterol 2.5 mg 09/24/21 18:07 Albuterol 2.5 Mg/3 Ml Nebu IH Q4HRT PRN Shortness Of Breath Hydromorphone HCl 1 mg 09/25/21 10:00 09/30/21 11:25 Hydromorphone 1 Mg/1 Ml Inj IV 1 mg Q6H PRN Administration Pain , Severe (7-10) Hydromorphone HCl 0.5 mg 09/25/21 10:00 09/30/21 15:07 Hydromorphone 1 Mg/1 Ml Inj IV 0.5 mg Q4H PRN Administration Pain, Moderate (4-6) Cefepime HCl 2 gm in 100 mls @ 200 mls/hr 09/24/21 19:00 09/30/21 11:24 Cefepime/Ns 2 Gm/100 Ml IV 200 mls/hr Q8H JAZ Administration Protocol Metronidazole 500 mg in 100 mls @ 100 mls/hr 09/24/21 19:00 09/30/21 11:25 Flagyl 500 Mg/100 Ml IV 100 mls/hr Q8H JAZ Administration Protocol Ketorolac Tromethamine 15 mg 09/29/21 18:00 09/30/21 15:06 Ketorolac 30 Mg/1 Ml Inj IV 09/30/21 17:59 15 mg Q6HR JAZ Administration Ondansetron HCl 4 mg 09/24/21 18:07 09/29/21 21:06 Ondansetron 4 Mg/2 Ml Inj IV 4 mg Q8H PRN Administration Nausea And Vomiting Polyethylene Glycol 17 gm 09/28/21 12:00 09/30/21 09:43 Polyethylene Glycol 3350 17 Gm Powder PO Not Given BID JAZ Sodium Chloride 10 ml 09/24/21 22:00 09/30/21 11:24 Sodium Chloride 0.9% 10 Ml Flush Syringe IV 10 ml BID JAZ Administration Sodium Chloride 10 ml 09/24/21 18:07 09/25/21 08:34 Sodium Chloride 0.9% 10 Ml Flush Syringe IV 10 ml PRN PRN Administration LINE FLUSH Nutrition/Malnutrition Assess - Dietary Evaluation Nutrition/Malnutrition Findings: Nutrition Notes Start: 09/25/21 15:31 Freq: Status: Active Protocol: Document 09/30/21 11:47 BIN (Rec: 09/30/21 12:06 BIN [id number]) Nutrition Notes Current Diagnosis Sepsis Other Pertinent Diagnosis Diverticulitis/Peritonitis, s/ p drain placemen, Vol Depletion, Hypokalemia. Current Diet NPO (since 09/28 11:49). Labs/Tests 09/30: K 3.5, CO2 21, Crea 0.5 , Ca 8.0. Pertinent Medications 09/30: nutritionally unremarkable. Height 5 ft 7 in Weight 90 kg Outlook Body Weight (kg) 61.36 BMI 31.1 Weight change and time frame 0.718 Kg body weight loss in 3 days reported. Weight Status Obese Subjective/Other Information RD consult for routine F/U on dietary assessment and tolerance. Pt is NPO for monitoring of drainage placed on 09/26. Percent of energy/protein needs met: Pt currently on NPO. Burn Absent Trauma Absent GI Symptoms Constipation,Other Food Allergy No Skin Integrity/Comment Assessment WNL. Current % PO Other Minimum of two criteria No #1 Nutrition Diagnosis Altered GI function Comments: Pt is NPO for monitoring of drainage placed on 09/26. Diagnosis Progress(for reassessment Continues documentation) Is patient on ventilator? No Is Patient Ambulatory and/or Out of Bed Yes REE-([facility]-ambulatory/OOB) [ 2135.419 [id number]] Kcal/Kg value to use for calculation 19 Approximate Energy Requirements Using 1710 kcal/Kg Calculation Used for Recommendations Kcal/kg Additional Notes Protein: 0.8-1 g/Kg AdjBW; 61- 76 g/day. Fluids: 1 ml/Kcal, or as per MD. Nutrition Intervention Change Diet Order: Continue NPO as per MD. Goal #1 Continue monitoring readiness for dietary advancement. Follow-Up By: 10/01/21 Additional Comments F/U: diet advancement, PO tolerance
[2021-09-30] MEDS: ONDANSETRON 4 MG/2 ML INJ IV PRN (20:00)
[2021-10-01] MEDS: metroNIDAZOLE/NS 500 MG/100 ML 500 MG/100 ML BAG IV SCH ×2 (03:05→11:10)
[2021-10-01] MEDS: CEFEPIME/NS 2 GM/100 ML 2 GM/100 ML BAG IV SCH (03:05)
[2021-10-01] MEDS: HYDROmorphone 1 MG/1 ML INJ IV PRN ×8 (03:13→22:00)
[2021-10-01] MEDS: ONDANSETRON 4 MG/2 ML INJ IV PRN (03:13)
[2021-10-01] MEDS ORDERED: hydrALAZINE 20 MG/1 ML INJ IV NR (07:40)
[2021-10-01 08:47] LABS: Blood Urea Nitrogen 11 mg/dL (7-17); Calcium 7.6 mg/dL (8.4-10.2); Hemolysis Index 3
[2021-10-01 08:58] LABS: BUN/Creatinine Ratio 22
--- NOTE | 2021-10-01 09:05 | Anesthesia Day of Surgery ---
Anesthesia Day of Surgery - Day of Surgery Patient Examined: Yes Patient H&P Reviewed: Yes (No changes to anesthesia eval on 09/26/21. ASA 2) Patient is NPO: Yes
[2021-10-01 09:10] LABS: Hematocrit 28.3 % (30.3-42.9); Hemoglobin 9.3 gm/dl (10.1-14.3); Mean Corpuscular HGB Conc 33 % (30-34); Mean Corpuscular Volume 85 fl (79-97); Platelet Count 604 K/mm3 (140-440); Red Blood Count 3.32 M/mm3 (3.65-5.03); Red Cell Distribution Width 15.5 % (13.2-15.2)
--- NOTE | 2021-10-01 09:48 | Progress Note ---
Assessment and Plan Postoperative day #5 status post diagnostic laparoscopy with drainage of pericolonic abscess and drain placement. Afebrile and stable. Leukocytosis is persistent but pain control is being moderately controlled. CT barium enema done today shows findings being interpreted as possible appendiceal perforation with possible fistula to sigmoid. This is confusing as 6 days ago during diagnostic laparoscopy there were non gross abnormalities seen in the sigmoid colon or cecum although the appendix was not visualized. There were no signs of free fluid, inflammation or exudate c/w gross inflammatory process outside of the well contained lateral wall pericolic abscess. Regardless, due to the persistent leukocytosis and poor pain control with purulent YURIDIA drainage concerned about poor source control. Pt going to surgery today. Pt is consented. Subjective Date of service: 10/01/21 Narrative: No acute events overnight. Pt says she feels ok but continues to have abdominal pain. Objective Vital Signs - 12hr 09/30/21 10/01/21 10/01/21 22:00 06:56 07:55 Temperature 98.2 F Pulse Rate 79 Respiratory 18 20 20 Rate Blood Pressure 172/83 O2 Sat by Pulse 100 100 Oximetry - General physical appearance no distress, moderate pain - Eyes PERRL - ENT no hearing loss - Respiratory normal expansion, normal respiratory effort - Abdomen soft, tender, other (YURIDIA drain purulent fluid) - Psychiatric oriented to time, oriented to person - Labs 10/01/21 07:49 10/01/21 07:49 Diabetes panel 10/01/21 Range/Units 07:49 Sodium 137 (137-145) mmol/L Potassium 3.6 (3.6-5.0) mmol/L Chloride 102.5 (98-107) mmol/L Carbon Dioxide 20 L (22-30) mmol/L BUN 11 (7-17) mg/dL Creatinine 0.5 L (0.6-1.2) mg/dL Glucose 74 (65-100) mg/dL Calcium 7.6 L (8.4-10.2) mg/dL Calcium panel 10/01/21 Range/Units 07:49 Calcium 7.6 L (8.4-10.2) mg/dL Pituitary panel 10/01/21 Range/Units 07:49 Sodium 137 (137-145) mmol/L Potassium 3.6 (3.6-5.0) mmol/L Chloride 102.5 (98-107) mmol/L Carbon Dioxide 20 L (22-30) mmol/L BUN 11 (7-17) mg/dL Creatinine 0.5 L (0.6-1.2) mg/dL Glucose 74 (65-100) mg/dL Calcium 7.6 L (8.4-10.2) mg/dL Adrenal panel 10/01/21 Range/Units 07:49 Sodium 137 (137-145) mmol/L Potassium 3.6 (3.6-5.0) mmol/L Chloride 102.5 (98-107) mmol/L Carbon Dioxide 20 L (22-30) mmol/L BUN 11 (7-17) mg/dL Creatinine 0.5 L (0.6-1.2) mg/dL Glucose 74 (65-100) mg/dL Calcium 7.6 L (8.4-10.2) mg/dL
[2021-10-01] MEDS ORDERED: METOPROLOL TARTRATE 5 MG/5 ML INJ IV SCH (10:00)
[2021-10-01] MEDS: POLYETHYLENE GLYCOL 3350 17 GM POWDER PO SCH (10:04)
[2021-10-01] MEDS ORDERED: LACTATED RINGERS 1,000 ML ONE ×4 (10:36→19:59)
[2021-10-01] MEDS ORDERED: LACTATED RINGERS 1,000 ML IV SCH (10:45)
[2021-10-01] MEDS ORDERED: fentaNYL 100 MCG/2 ML INJ ONE ×2 (11:19→15:27)
[2021-10-01] MEDS ORDERED: SCOPOLAMINE TRANSDERMAL PATCH 72 HR TD ONE ×2 (11:24→13:00)
[2021-10-01] MEDS ORDERED: LIDOCAINE MPF (2%) 20 MG/1 ML VIAL 5 ML ONE (11:27)
[2021-10-01] MEDS ORDERED: propofoL 200 MG/20 ML VIAL IV ONE (11:27)
[2021-10-01] MEDS ORDERED: ROCURONIUM 50 MG/5 ML INJ IV ONE ×3 (11:27→17:35)
[2021-10-01] MEDS ORDERED: SODIUM CHLORIDE 0.9% IRRIG SOLN 2000 ML IR ONE ×2 (11:30)
[2021-10-01] MEDS ORDERED: LIDOCAINE (1%) 10 MG/1 ML VIAL 20 ML MDV INFILTRATI ONE (11:30)
[2021-10-01] MEDS ORDERED: BUPIVACAINE/PF (0.25%) 2.5 MG/ML 30 ML VIAL INFILTRATI ONE ×2 (11:30→12:18)
[2021-10-01] MEDS ORDERED: WATER FOR IRRIG STERILE 1,500 ML BOTTLE IR ONE (11:30)
[2021-10-01] MEDS ORDERED: SODIUM CHLORIDE 0.9% IRR 1,500 ML BOTTLE IR ONE ×2 (11:30)
[2021-10-01 11:43] LABS: Band Neutrophils # (Manual) 2.5 K/mm3; Basophils % (Manual) 0 % (0.0-1.8); Eosinophils % (Manual) 0 % (0.0-4.3); Myelocytes # (Manual) 0.7 K/mm3; Total Cells Counted 100
[2021-10-01 11:44] LABS: Anisocytosis 1+; Large Platelets Few; Platelet Estimate Consistent w Auto
[2021-10-01] MEDS ORDERED: dexAMETHasone 20 MG/5 ML VIAL ONE ×2 (11:47→16:51)
[2021-10-01] MEDS ORDERED: ONDANSETRON 4 MG/2 ML INJ ONE (11:47)
[2021-10-01] MEDS ORDERED: HYDROmorphone 1 MG/1 ML INJ ONE ×2 (12:15→20:48)
[2021-10-01] MEDS ORDERED: LIDOCAINE (1%) 10 MG/1 ML VIAL 20 ML MDV ONE (12:18)
[2021-10-01] MEDS ORDERED: ONDANSETRON 4 MG/2 ML INJ IV PRN (12:44)
[2021-10-01] MEDS ORDERED: HYDROmorphone 1 MG/1 ML INJ IV PRN (12:44)
--- NOTE | 2021-10-01 15:26 | Progress Note ---
Assessment and Plan Assessment and plan: #Sepsis #Diverticulitis with abscess #Peritonitis #Constipation -CT abd/pelvis showed diverticulitis with abscess -s/p diagnositic laparatomy and drain placement 09/26/2021 per general surgery. General surgery consulted; appreciate recs. -Continue cefepime 2 g every 24 hours -Continue n.p.o. per general surgery. CT barium enema (09/30/2021) revealing possible appendiceal perforation with possible fistula to sigmoid. Appendix was not visualized on prior imaging, and there was no sign of appendiceal involvement during the patient's previous operation with general surgery earlier this week. Plans are to have patient return to the OR today for possible diagnostic laparoscopy, possible appendectomy, possible Powell's, etc. Continue to monitor #Volume depletion -likely 2/2 to poor PO intake due to abdominal pain and vomiting -continue IVFs, can discontinue after patient resumes PO intake #Hypokalemiaresolved -Potassium 3.3-->3.6 -Repleted. We will monitor with BMP in the morning. #Obesity #Weight loss counseling #Exercise counseling - BMI 31.1 - Counseled patient on the importance of weight loss, incorporating exercise, and dietary changes (lean meats, fresh fruits and vegetables, and water intake). Patient expresses understanding. - Time: +15 min #Advance care planning -Disease education conducted, care plan discussed, diagnoses discussed, prognosi s discussed, patient is full code. Patient knowledges understanding and agreement with care plan Time: +30 minutes. Disposition Plan: Continue medical management Total Time Spent with Patient (Minutes): 30 minutes History Interval history: No acute events overnight. Hospitalist Physical - Constitutional Vitals: Temp Pulse Resp BP Pulse Ox 99 F 82 18 147/90 100 10/01/21 10:50 10/01/21 10:50 10/01/21 10:50 10/01/21 10:50 10/01/21 10:50 General appearance: Present: mild distress, well-nourished, obese - EENT Eyes: Present: PERRL, EOM intact ENT: hearing intact, clear oral mucosa, dentition normal - Neck Neck: Present: supple, normal ROM - Respiratory Respiratory effort: normal Respiratory: bilateral: CTA - Cardiovascular Rhythm: regular Heart Sounds: Present: S1 & S2 - Extremities Extremities: no ischemia, pulses intact, pulses symmetrical, No edema, normal temperature, normal color, Full ROM Peripheral Pulses: within normal limits - Abdominal General gastrointestinal: soft, tender, non-distended, normal bowel sounds, other (ALEX drain with purulent fluid) Localized gastrointestinal: tender: diffuse - Integumentary Integumentary: Present: clear, warm, dry - Psychiatric Psychiatric: appropriate mood/affect, intact judgment & insight, memory intact, cooperative - Neurologic Neurologic: CNII-XII intact, moves all extremities - Allied Health Allied health notes reviewed: nursing Results - Labs CBC & Chem 7: 10/01/21 07:49 10/01/21 07:49 Labs: Laboratory Last Values WBC 17.9 K/mm3 (4.5-11.0) H 10/01/21 07:49 RBC 3.32 M/mm3 (3.65-5.03) L 10/01/21 07:49 Hgb 9.3 gm/dl (10.1-14.3) L 10/01/21 07:49 Hct 28.3 % (30.3-42.9) L 10/01/21 07:49 MCV 85 fl (79-97) 10/01/21 07:49 MCH 28 pg (28-32) 10/01/21 07:49 MCHC 33 % (30-34) 10/01/21 07:49 RDW 15.5 % (13.2-15.2) H 10/01/21 07:49 Plt Count 604 K/mm3 (140-440) H 10/01/21 07:49 [place] % (Auto) 5.9 % (0.0-7.3) 09/28/21 04:55 Eos % (Auto) 0.4 % (0.0-4.3) 09/28/21 04:55 [place] # (Auto) 0.9 K/mm3 (0.0-0.8) H 09/28/21 04:55 Eos # (Auto) 0.1 K/mm3 (0.0-0.4) 09/28/21 04:55 Baso # (Auto) 0.0 K/mm3 (0.0-0.1) 09/28/21 04:55 Add Manual Diff Complete 10/01/21 07:49 Total Counted 100 10/01/21 07:49 Seg Neutrophils % 89.3 % (40.0-70.0) H 09/28/21 04:55 Seg Neuts % (Manual) 72.0 % (40.0-70.0) H 10/01/21 07:49 Band Neutrophils % 14.0 % 10/01/21 07:49 Lymphocytes % (Manual) 1.0 % (13.4-35.0) L 10/01/21 07:49 Reactive Lymphs % (Man) 1.0 % 10/01/21 07:49 Monocytes % (Manual) 8.0 % (0.0-7.3) H 10/01/21 07:49 Eosinophils % (Manual) 0 % (0.0-4.3) 10/01/21 07:49 Basophils % (Manual) 0 % (0.0-1.8) 10/01/21 07:49 Metamyelocytes % 0 % 10/01/21 07:49 Myelocytes % 4.0 % 10/01/21 07:49 Promyelocytes % 0 % 10/01/21 07:49 Blast Cells % 0 % 10/01/21 07:49 Nucleated RBC % Not Reportable 10/01/21 07:49 Seg Neutrophils # 14.0 K/mm3 (1.8-7.7) H 09/28/21 04:55 Seg Neutrophils # Man 12.9 K/mm3 (1.8-7.7) H 10/01/21 07:49 Band Neutrophils # 2.5 K/mm3 10/01/21 07:49 Lymphocytes # (Manual) 0.2 K/mm3 (1.2-5.4) L 10/01/21 07:49 Abs React Lymphs (Man) 0.2 K/mm3 10/01/21 07:49 Monocytes # (Manual) 1.4 K/mm3 (0.0-0.8) H 10/01/21 07:49 Eosinophils # (Manual) 0.0 K/mm3 (0.0-0.4) 10/01/21 07:49 Basophils # (Manual) 0.0 K/mm3 (0.0-0.1) 10/01/21 07:49 Metamyelocytes # 0.0 K/mm3 10/01/21 07:49 Myelocytes # 0.7 K/mm3 10/01/21 07:49 Promyelocytes # 0.0 K/mm3 10/01/21 07:49 Blast Cells # 0.0 K/mm3 10/01/21 07:49 Pathologist Review 09/24/21 14:58 WBC Morphology Not Reportable 10/01/21 07:49 Hypersegmented Neuts Not Reportable 10/01/21 07:49 Hyposegmented Neuts Not Reportable 10/01/21 07:49 Hypogranular Neuts Not Reportable 10/01/21 07:49 Smudge Cells Not Reportable 10/01/21 07:49 Toxic Granulation Not Reportable 10/01/21 07:49 Toxic Vacuolation Not Reportable 10/01/21 07:49 Dohle Bodies Not Reportable 10/01/21 07:49 [place] Anomaly Not Reportable 10/01/21 07:49 Marlene Rods Not Reportable 10/01/21 07:49 Platelet Estimate Consistent w auto 10/01/21 07:49 Clumped Platelets Not Reportable 10/01/21 07:49 Plt Clumps, EDTA Not Reportable 10/01/21 07:49 Large Platelets Few 10/01/21 07:49 Giant Platelets Not Reportable 10/01/21 07:49 Platelet Satelliting Not Reportable 10/01/21 07:49 Plt Morphology Comment Not Reportable 10/01/21 07:49 RBC Morphology Not Reportable 10/01/21 07:49 Dimorphic RBCs Not Reportable 10/01/21 07:49 Polychromasia Not Reportable 10/01/21 07:49 Hypochromasia Not Reportable 10/01/21 07:49 Poikilocytosis Not Reportable 10/01/21 07:49 Anisocytosis 1+ 10/01/21 07:49 Microcytosis Not Reportable 10/01/21 07:49 Macrocytosis Not Reportable 10/01/21 07:49 Spherocytes Not Reportable 10/01/21 07:49 Pappenheimer Bodies Not Reportable 10/01/21 07:49 Sickle Cells Not Reportable 10/01/21 07:49 Target Cells Not Reportable 10/01/21 07:49 Tear Drop Cells Not Reportable 10/01/21 07:49 Ovalocytes Not Reportable 10/01/21 07:49 Helmet Cells Not Reportable 10/01/21 07:49 [place] Bodies Not Reportable 10/01/21 07:49 [place] Rings Not Reportable 10/01/21 07:49 [place] Cells Not Reportable 10/01/21 07:49 Bite Cells Not Reportable 10/01/21 07:49 Crenated Cell Not Reportable 10/01/21 07:49 Elliptocytes Not Reportable 10/01/21 07:49 Acanthocytes (Spur) Not Reportable 10/01/21 07:49 Rouleaux Not Reportable 10/01/21 07:49 Hemoglobin C Crystals Not Reportable 10/01/21 07:49 Schistocytes Not Reportable 10/01/21 07:49 Malaria parasites Not Reportable 10/01/21 07:49 Flaco Bodies Not Reportable 10/01/21 07:49 Hem Pathologist Commnt No 10/01/21 07:49 Sodium 137 mmol/L (137-145) 10/01/21 07:49 Potassium 3.6 mmol/L (3.6-5.0) 10/01/21 07:49 Chloride 102.5 mmol/L (98-107) 10/01/21 07:49 Carbon Dioxide 20 mmol/L (22-30) L 10/01/21 07:49 Anion Gap 18 mmol/L 10/01/21 07:49 BUN 11 mg/dL (7-17) 10/01/21 07:49 Creatinine 0.5 mg/dL (0.6-1.2) L 10/01/21 07:49 Estimated GFR > 60 ml/min 10/01/21 07:49 BUN/Creatinine Ratio 22 % 10/01/21 07:49 Glucose 74 mg/dL (65-100) 10/01/21 07:49 Lactic Acid 1.00 mmol/L (0.7-2.0) 09/24/21 21:54 Calcium 7.6 mg/dL (8.4-10.2) L 10/01/21 07:49 Total Bilirubin 0.60 mg/dL (0.1-1.2) 09/24/21 14:58 AST 16 units/L (5-40) 09/24/21 14:58 ALT 17 units/L (7-56) 09/24/21 14:58 Alkaline Phosphatase 83 units/L (35-129) 09/24/21 14:58 Total Protein 6.1 g/dL (6.3-8.2) L 09/24/21 14:58 Albumin 3.3 g/dL (3.9-5) L 09/24/21 14:58 Albumin/Globulin Ratio 1.2 % 09/24/21 14:58 Urine Color Yellow (Yellow) 09/24/21 14:49 Urine Turbidity Slightly-cloudy (Clear) 09/24/21 14:49 Urine pH 6.0 (5.0-7.0) 09/24/21 14:49 Ur Specific [place] 1.017 (1.003-1.030) 09/24/21 14:49 Urine Protein 30 mg/dl mg/dL (Negative) 09/24/21 14:49 Urine Glucose (UA) Neg mg/dL (Negative) 09/24/21 14:49 Urine Ketones Neg mg/dL (Negative) 09/24/21 14:49 Urine Blood Neg (Negative) 09/24/21 14:49 Urine Nitrite Neg (Negative) 09/24/21 14:49 Ur Reducing Substances Not Reportable 09/24/21 14:49 Urine Bilirubin Neg (Negative) 09/24/21 14:49 Urine Ictotest Not Reportable 09/24/21 14:49 Urine Urobilinogen < 2.0 mg/dL (<2.0) 09/24/21 14:49 Ur Leukocyte Esterase Neg (Negative) 09/24/21 14:49 Urine WBC (Auto) 4.0 /HPF (0.0-6.0) 09/24/21 14:49 Urine RBC (Auto) 2.0 /HPF (0.0-6.0) 09/24/21 14:49 U Epithel Cells (Auto) 18.0 /HPF (0-13.0) H 09/24/21 14:49 Urine Mucus Few /HPF 09/24/21 14:49 Urine HCG, Qual Negative (Negative) 09/24/21 14:49 Blood Type A POSITIVE 10/01/21 10:45 Antibody Screen Negative 10/01/21 10:45 Microbiology: Microbiology 09/30/21 Unknown Alex Drain Wound Culture - Preliminary Doss/IV: Voiding Method Toilet Active Medications - Current Medications Current Medications: Generic Name Dose Route Start Last Admin Trade Name Freq PRN Reason Stop Dose Admin Acetaminophen 650 mg 09/24/21 18:07 09/28/21 18:14 Acetaminophen 325 Mg Tab PO 650 mg Q4H PRN Administration Pain MILD(1-3)/Fever >100.5/BERG Albuterol 2.5 mg 09/24/21 18:07 Albuterol 2.5 Mg/3 Ml Nebu IH Q4HRT PRN Shortness Of Breath Hydromorphone HCl 0.25 mg 10/01/21 12:44 Hydromorphone 1 Mg/1 Ml Inj IV Q10MIN PRN Pain, Moderate (4-6) Hydromorphone HCl 0.5 mg 10/01/21 12:44 Hydromorphone 1 Mg/1 Ml Inj IV Q10MIN PRN Pain , Severe (7-10) Cefepime HCl 2 gm in 100 mls @ 200 mls/hr 09/24/21 19:00 10/01/21 03:05 Cefepime/Ns 2 Gm/100 Ml IV 200 mls/hr Q8H JAZ Administration Protocol Metronidazole 500 mg in 100 mls @ 100 mls/hr 09/24/21 19:00 10/01/21 11:10 Flagyl 500 Mg/100 Ml IV 100 mls/hr Q8H JAZ Administration Protocol Lactated Ringer's 1,000 mls @ 125 mls/hr 10/01/21 10:45 10/01/21 10:45 Lactated Ringers IV 125 mls/hr PREOP JAZ Administration Labetalol HCl 10 mg 10/01/21 08:31 10/01/21 10:02 Labetalol 20 Mg/4 Ml Inj IV 10 mg Q6H PRN Administration Hypertension Ondansetron HCl 4 mg 09/24/21 18:07 10/01/21 03:13 Ondansetron 4 Mg/2 Ml Inj IV 4 mg Q8H PRN Administration Nausea And Vomiting Ondansetron HCl 4 mg 10/01/21 12:44 Ondansetron 4 Mg/2 Ml Inj IV ONCE PRN Nausea And Vomiting Polyethylene Glycol 17 gm 09/28/21 12:00 10/01/21 10:04 Polyethylene Glycol 3350 17 Gm Powder PO Not Given BID JAZ Scopolamine 1 each 10/04/21 10:00 Scopolamine Transdermal Patch 72 Hr TD Q3D JAZ Sodium Chloride 10 ml 09/24/21 22:00 10/01/21 10:03 Sodium Chloride 0.9% 10 Ml Flush Syringe IV 10 ml BID JAZ Administration Sodium Chloride 10 ml 09/24/21 18:07 09/25/21 08:34 Sodium Chloride 0.9% 10 Ml Flush Syringe IV 10 ml PRN PRN Administration LINE FLUSH Nutrition/Malnutrition Assess - Dietary Evaluation Nutrition/Malnutrition Findings: Nutrition Notes Start: 09/25/21 15:31 Freq: Status: Active Protocol: Document 09/30/21 11:47 BIN (Rec: 09/30/21 12:06 BIN [id number]) Nutrition Notes Current Diagnosis Sepsis Other Pertinent Diagnosis Diverticulitis/Peritonitis, s/ p drain placemen, Vol Depletion, Hypokalemia. Current Diet NPO (since 09/28 11:49). Labs/Tests 09/30: K 3.5, CO2 21, Crea 0.5 , Ca 8.0. Pertinent Medications 09/30: nutritionally unremarkable. Height 5 ft 7 in Weight 90 kg [place] Body Weight (kg) 61.36 BMI 31.1 Weight change and time frame 0.718 Kg body weight loss in 3 days reported. Weight Status Obese Subjective/Other Information RD consult for routine F/U on dietary assessment and tolerance. Pt is NPO for monitoring of drainage placed on 09/26. Percent of energy/protein needs met: Pt currently on NPO. Burn Absent Trauma Absent GI Symptoms Constipation,Other Food Allergy No Skin Integrity/Comment Assessment WNL. Current % PO Other Minimum of two criteria No #1 Nutrition Diagnosis Altered GI function Comments: Pt is NPO for monitoring of drainage placed on 09/26. Diagnosis Progress(for reassessment Continues documentation) Is patient on ventilator? No Is Patient Ambulatory and/or Out of Bed Yes REE-([facility]-ambulatory/OOB) [ 2135.419 NUTR.[id number]] Kcal/Kg value to use for calculation 19 Approximate Energy Requirements Using 1710 kcal/Kg Calculation Used for Recommendations Kcal/kg Additional Notes Protein: 0.8-1 g/Kg AdjBW; 61- 76 g/day. Fluids: 1 ml/Kcal, or as per MD. Nutrition Intervention Change Diet Order: Continue NPO as per MD. Goal #1 Continue monitoring readiness for dietary advancement. Follow-Up By: 10/01/21 Additional Comments F/U: diet advancement, PO tolerance
[2021-10-01] MEDS ORDERED: METHYLENE BLUE 50 MG/10 ML AMP ONE (15:58)
[2021-10-01] MEDS ORDERED: METHYLENE BLUE 50 MG/10 ML AMP IV ONE (16:15)
[2021-10-01] MEDS ORDERED: MANNITOL 20% 500 ML ONE (16:22)
[2021-10-01] MEDS ORDERED: MANNITOL/SORBITOL SOLUTION 3,000 ML IRRIG.SOLN IR ONE (16:23)
[2021-10-01] MEDS ORDERED: ALBUMIN HUMAN 5% (12.5 GM/250 ML) INJ IV ONE (18:47)
[2021-10-01] MEDS ORDERED: NEOSTIGMINE 10MG/10 ML INJ MDV ONE (20:44)
[2021-10-01] MEDS ORDERED: GLYCOPYRROLATE 0.4 MG/2 ML INJ ONE (20:44)
[2021-10-01] MEDS ORDERED: diphenhydrAMINE 50 MG/ML VIAL ONE (21:30)
[2021-10-01] MEDS ORDERED: MEPERIDINE 25 MG/1 ML INJ IV PRN (21:30)
[2021-10-01] MEDS ORDERED: MEPERIDINE 25 MG/1 ML INJ ONE (21:30)
[2021-10-01] MEDS ORDERED: diphenhydrAMINE 50 MG/ML VIAL IV ONE (21:30)
--- NOTE | 2021-10-01 21:42 | Operative Report ---
Operative Report Operative Report: DATE: 10/01/2021 SURGEON: CICI QUEZADA MD CO-SURGEON: KAYLEIGH LAURA MD PROCEDURE: 1. LAPAROSCOPIC CONVERTED TO OPEN LEFT HEMICOLECTOMY, 2. APPENDECTOMY, 3. PARTIAL OMENTECTOMY PRE-OP DX: PERICOLONIC ABSCESS, APPENDICEAL-SIGMOID COLON FISTULA POST-OP DX: SAME PRE-OP ANESTHESIA: GETA INDICATION: 31 YEAR OLD FEMALE PRESENTED TO THE ER WITH LEFT SIDED ABDOMINAL AND BACK PAIN. CT SCAN SHOWED JOE-COLONIC ABSCESS ON THE LEFT SIDE WITH SIGMOID DIVERTICULITIS. PT HAD DX LAPAROSCOPY 5 DAYS AGO WITH DRAINAGE OF JOE-COLIC ABSCESS. PT'S PAIN AND LEUKOCYTOSIS DID NOT IMPROVE. SHE HAD REPEAT CT SCAN AND BARIUM ENEMA CT THAT SHOWED FINDINGS C/W PERFORATED APPENDIX INTO THE SIGMOID COLON AND SIGMOID FISTULAS TO JOE-COLONIC ABSCESS. PT WAS CONSENTED FOR SURGERY. DETAILS OF PROCEDURE: PT WAS BROUGHT INTO OR SUITE AND LAID IN SUPINE POSITION. BILATERAL SCD WERE PLACED, GENERAL ANESTHESIA WAS INDUCED WITH SUCCESSFUL ENDOTRACHEAL INTUBATION. A DOSS CATHETER WAS INSERTED UNDER STERILE CONDITIONS. Patient was placed in lithotomy position with her arms tucked at her side. Patient's abdomen was prepped and draped in sterile fashion. After timeout a Veress needle was used to a stab incision in left upper quadrant to insufflate the abdomen to a pressure of 15 mmHg. Using a 5 mm Optiview trocar through a previous right-sided incision access was gained to the peritoneal cavity. There was noted to be no gross injury to any intra-abdominal structures. For working trochars were placed under direct visualization, 5 mm in the epigastric area, 12 mm in the right lower quadrant, and a 12 mm in the periumbilical area. There was noted to be purulent fluid in the left abdomen. The cecum was mobilized from the omentum. After dissecting down to the base of the mesentery, the appendix was noted to be perforating and buried into the mesocolon on the medial side of the sigmoid colon. There was extensive inflammation in this area that required over an hour to dissect. After the base of the appendix was dissected circumferentially, and endostapler was used to transect the appendix at the base of the cecum. The mesoappendix was taken with an Enseal device. After this care was taken to further medialize the sigmoid and left colon. The abscess cavity that was already formed created a tract the left peritoneal reflection from the retroperitoneal space. Around this time anesthesia noticed a light red tinge in the Doss catheter. The patient's thickened colon Distorted her anatomy and we could not definitively locate the ureter on the left side. At this time we decided to inject the patient with methylene blue. We cleaned out the area, waited 20 minutes and placed lap pads in the pelvis and left paracolic gutter. The lap pads remain clean with no signs of extravasation of methylene blue. No ureteral injury was appreciated. Of note a urology consult was called intraoperatively, and there was no urologist available. There was also no ability to do ureteral stent at this time at the facility. The attachments of the left colon past the splenic flexure and the gastrocolic ligament was performed. The sigmoid and left colon was noted to be thickened and inflamed from the rectosigmoid junction all the way to just distal to the splenic flexure. The proximal transection of the colon was performed with an endoscopic stapler. There was an attempt to take the mesentery with the Enseal device however there here to be a desmoplastic reaction with hard woody tissue and enlarged lymph nodes. Due to difficulty manipulating tissue and excessive bleeding of decided to convert to an open laparotomy to help facilitate the procedure. With a combination of the Enseal device and suture ligation, the colonic mesentery was transected all the way to the distal margin. The rectosigmoid junction was then transected with a TA 60 stapler. The specimen was then sent off the table. When trying to mobilize the proximal colon down to the rectosigmoid junction there was noted to be tension. The patient had a floppy transverse colon, there was concern for the splenic watershed area to be compromised, and additional 6 to 7 cm of colon were transected. After this happened, the transverse colon easily reached the rectosigmoid junction without tension. Both ends appeared well perfused and viable. A partial omentectomy was performed, as it was redundant and needed to be transected from the colon to allow for appropriate reach down to the pelvis. A circular EEA size 29 was used to make the anastomosis. The anvil was dropped into the proximal and via the staple line, the defect in the colon was then stapled shut. After the stapling was complete, the staple was checked and there were 2 complete donuts indicating an intact anastomosis. An air test in pericolonic saline was performed showing no bubbles, indicating an airtight anastomosis. The abdominal cavity was irrigated out with warm saline. A 19 [place] YURIDIA drain was placed along the left paracolic gutter down to the pelvis and exited out of the right side. The fascia was closed with a looped #1 PDS, followed by Vicryl in the subcutaneous tissue. The midline skin incision was closed with julia. The laparoscopic incisions were closed with 4-0 Monocryl, and Dermabond. Patient was extubated, awoken and taken to recovery in stable condition. All counts were correct. Findings: A chronically inflamed and thickened sigmoid and descending colon, with appendix that had perforated into the mesocolon of the sigmoid. Left-sided pericolic abscess. EBL: Approximately 700 cc Complications: None immediate Specimens: Sigmoid and left colon, partial omentectomy, anastomotic donuts
[2021-10-01] MEDS ORDERED: MORPHINE 4 MG/1 ML INJ IV PRN (23:24)
[2021-10-02] MEDS: KETOROLAC 30 MG/1 ML INJ IV SCH ×5 (01:09→19:21)
[2021-10-02] MEDS: HYDROmorphone 1 MG/1 ML INJ IV PRN ×3 (04:47→23:00)
[2021-10-02] MEDS: CEFEPIME/NS 2 GM/100 ML 2 GM/100 ML BAG IV SCH ×3 (07:32→23:12)
[2021-10-02] MEDS: metroNIDAZOLE/NS 500 MG/100 ML 500 MG/100 ML BAG IV SCH ×2 (07:32→17:12)
[2021-10-02 07:34] LABS: Hematocrit 24.8 % (30.3-42.9); Hemoglobin 7.9 gm/dl (10.1-14.3); Mean Corpuscular HGB Conc 32 % (30-34); Mean Corpuscular Volume 86 fl (79-97); Platelet Count 621 K/mm3 (140-440); Red Cell Distribution Width 15.3 % (13.2-15.2)
[2021-10-02 07:53] LABS: BUN/Creatinine Ratio 16; Blood Urea Nitrogen 14 mg/dL (7-17); Calcium 6.9 mg/dL (8.4-10.2); Hemolysis Index 3
--- NOTE | 2021-10-02 07:56 | Progress Note ---
Assessment and Plan Assessment and plan: #Sepsis #Diverticulitis with abscess #Peritonitis #Constipation -CT abd/pelvis showed diverticulitis with abscess -s/p diagnositic laparatomy and drain placement 09/26/2021 per general surgery. General surgery consulted; appreciate recs. -Continue cefepime 2 g every 24 hours -Continue n.p.o. per general surgery. CT barium enema (09/30/2021) revealing possible appendiceal perforation with possible fistula to sigmoid. Appendix was not visualized on prior imaging, and there was no sign of appendiceal involvement during the patient's previous operation with general surgery earlier this week. Returned to the OR on 09/30/2021 for laparoscopic examination of abdomen in the setting of recent diverticular abscess status post drainage with ALEX drain. During the procedure yesterday, laparoscopic approach was converted to open left hemicolectomy, appendectomy, and partial omentectomy. Patient tolerated the procedure well without any immediate complications Continue to monitor #Volume depletion -likely 2/2 to poor PO intake due to abdominal pain and vomiting -continue IVFs, can discontinue after patient resumes PO intake #Hypokalemiaresolved -Potassium 3.3-->3.6 -Repleted. We will monitor with BMP in the morning. #Obesity #Weight loss counseling #Exercise counseling - BMI 31.1 - Counseled patient on the importance of weight loss, incorporating exercise, and dietary changes (lean meats, fresh fruits and vegetables, and water intake). Patient expresses understanding. - Time: +15 min #Advance care planning -Disease education conducted, care plan discussed, diagnoses discussed, prognosis discussed, patient is full code. Patient knowledges understanding and agreement with care plan Time: +30 minutes. Disposition Plan: Continue medical management Total Time Spent with Patient (Minutes): 45 minutes History Interval history: Patient was returned back to the OR by general surgery where the laparoscopic approach was converted to open left hemicolectomy, appendectomy, and partial omentectomy. Patient tolerated the procedure well without any immediate complications Hospitalist Physical - Constitutional Vitals: Temp Pulse Resp BP Pulse Ox 98.3 F 86 18 101/61 100 10/02/21 04:37 10/02/21 04:37 10/02/21 04:37 10/02/21 04:37 10/02/21 04:37 General appearance: Present: well-nourished, obese, other (Asleep at bedside) - EENT Eyes: Present: PERRL, EOM intact ENT: hearing intact, clear oral mucosa, dentition normal, other (NG tube in place with low intermittent wall suction) - Neck Neck: Present: supple, normal ROM - Respiratory Respiratory effort: normal Respiratory: bilateral: CTA (On 1.5 l nasal cannula) - Cardiovascular Rhythm: regular Heart Sounds: Present: S1 & S2 - Extremities Extremities: no ischemia, pulses intact, pulses symmetrical, No edema, normal temperature, normal color, Full ROM Peripheral Pulses: within normal limits - Abdominal General gastrointestinal: soft, tender, non-distended, normal bowel sounds, other (ALEX drain with serosanguineous fluid) Localized gastrointestinal: tender: diffuse - Integumentary Integumentary: Present: clear, warm, dry - Psychiatric Psychiatric: appropriate mood/affect, intact judgment & insight, memory intact, cooperative - Neurologic Neurologic: CNII-XII intact, moves all extremities - Allied Health Allied health notes reviewed: nursing Results - Labs CBC & Chem 7: 10/02/21 05:41 10/02/21 05:41 Labs: Laboratory Last Values WBC 23.2 K/mm3 (4.5-11.0) H 10/02/21 05:41 RBC 2.90 M/mm3 (3.65-5.03) L 10/02/21 05:41 Hgb 7.9 gm/dl (10.1-14.3) L 10/02/21 05:41 Hct 24.8 % (30.3-42.9) L 10/02/21 05:41 MCV 86 fl (79-97) 10/02/21 05:41 MCH 27 pg (28-32) L 10/02/21 05:41 MCHC 32 % (30-34) 10/02/21 05:41 RDW 15.3 % (13.2-15.2) H 10/02/21 05:41 Plt Count 621 K/mm3 (140-440) H 10/02/21 05:41 [place] % (Auto) 5.9 % (0.0-7.3) 09/28/21 04:55 Eos % (Auto) 0.4 % (0.0-4.3) 09/28/21 04:55 [place] # (Auto) 0.9 K/mm3 (0.0-0.8) H 09/28/21 04:55 Eos # (Auto) 0.1 K/mm3 (0.0-0.4) 09/28/21 04:55 Baso # (Auto) 0.0 K/mm3 (0.0-0.1) 09/28/21 04:55 Add Manual Diff Complete 10/01/21 07:49 Total Counted 100 10/01/21 07:49 Seg Neutrophils % 89.3 % (40.0-70.0) H 09/28/21 04:55 Seg Neuts % (Manual) 72.0 % (40.0-70.0) H 10/01/21 07:49 Band Neutrophils % 14.0 % 10/01/21 07:49 Lymphocytes % (Manual) 1.0 % (13.4-35.0) L 10/01/21 07:49 Reactive Lymphs % (Man) 1.0 % 10/01/21 07:49 Monocytes % (Manual) 8.0 % (0.0-7.3) H 10/01/21 07:49 Eosinophils % (Manual) 0 % (0.0-4.3) 10/01/21 07:49 Basophils % (Manual) 0 % (0.0-1.8) 10/01/21 07:49 Metamyelocytes % 0 % 10/01/21 07:49 Myelocytes % 4.0 % 10/01/21 07:49 Promyelocytes % 0 % 10/01/21 07:49 Blast Cells % 0 % 10/01/21 07:49 Nucleated RBC % Not Reportable 10/01/21 07:49 Seg Neutrophils # 14.0 K/mm3 (1.8-7.7) H 09/28/21 04:55 Seg Neutrophils # Man 12.9 K/mm3 (1.8-7.7) H 10/01/21 07:49 Band Neutrophils # 2.5 K/mm3 10/01/21 07:49 Lymphocytes # (Manual) 0.2 K/mm3 (1.2-5.4) L 10/01/21 07:49 Abs React Lymphs (Man) 0.2 K/mm3 10/01/21 07:49 Monocytes # (Manual) 1.4 K/mm3 (0.0-0.8) H 10/01/21 07:49 Eosinophils # (Manual) 0.0 K/mm3 (0.0-0.4) 10/01/21 07:49 Basophils # (Manual) 0.0 K/mm3 (0.0-0.1) 10/01/21 07:49 Metamyelocytes # 0.0 K/mm3 10/01/21 07:49 Myelocytes # 0.7 K/mm3 10/01/21 07:49 Promyelocytes # 0.0 K/mm3 10/01/21 07:49 Blast Cells # 0.0 K/mm3 10/01/21 07:49 Pathologist Review 09/24/21 14:58 WBC Morphology Not Reportable 10/01/21 07:49 Hypersegmented Neuts Not Reportable 10/01/21 07:49 Hyposegmented Neuts Not Reportable 10/01/21 07:49 Hypogranular Neuts Not Reportable 10/01/21 07:49 Smudge Cells Not Reportable 10/01/21 07:49 Toxic Granulation Not Reportable 10/01/21 07:49 Toxic Vacuolation Not Reportable 10/01/21 07:49 Dohle Bodies Not Reportable 10/01/21 07:49 Pelger-Huet Anomaly Not Reportable 10/01/21 07:49 Marlene Rods Not Reportable 10/01/21 07:49 Platelet Estimate Consistent w auto 10/01/21 07:49 Clumped Platelets Not Reportable 10/01/21 07:49 Plt Clumps, EDTA Not Reportable 10/01/21 07:49 Large Platelets Few 10/01/21 07:49 Giant Platelets Not Reportable 10/01/21 07:49 Platelet Satelliting Not Reportable 10/01/21 07:49 Plt Morphology Comment Not Reportable 10/01/21 07:49 RBC Morphology Not Reportable 10/01/21 07:49 Dimorphic RBCs Not Reportable 10/01/21 07:49 Polychromasia Not Reportable 10/01/21 07:49 Hypochromasia Not Reportable 10/01/21 07:49 Poikilocytosis Not Reportable 10/01/21 07:49 Anisocytosis 1+ 10/01/21 07:49 Microcytosis Not Reportable 10/01/21 07:49 Macrocytosis Not Reportable 10/01/21 07:49 Spherocytes Not Reportable 10/01/21 07:49 Pappenheimer Bodies Not Reportable 10/01/21 07:49 Sickle Cells Not Reportable 10/01/21 07:49 Target Cells Not Reportable 10/01/21 07:49 Tear Drop Cells Not Reportable 10/01/21 07:49 Ovalocytes Not Reportable 10/01/21 07:49 Helmet Cells Not Reportable 10/01/21 07:49 [place] Bodies Not Reportable 10/01/21 07:49 [place] Rings Not Reportable 10/01/21 07:49 [place] Cells Not Reportable 10/01/21 07:49 Bite Cells Not Reportable 10/01/21 07:49 Crenated Cell Not Reportable 10/01/21 07:49 Elliptocytes Not Reportable 10/01/21 07:49 Acanthocytes (Spur) Not Reportable 10/01/21 07:49 Rouleaux Not Reportable 10/01/21 07:49 Hemoglobin C Crystals Not Reportable 10/01/21 07:49 Schistocytes Not Reportable 10/01/21 07:49 Malaria parasites Not Reportable 10/01/21 07:49 Flaco Bodies Not Reportable 10/01/21 07:49 Hem Pathologist Commnt No 10/01/21 07:49 Sodium 138 mmol/L (137-145) 10/02/21 05:41 Potassium 3.6 mmol/L (3.6-5.0) 10/01/21 07:49 Chloride 101.6 mmol/L (98-107) 10/02/21 05:41 Carbon Dioxide 22 mmol/L (22-30) 10/02/21 05:41 Anion Gap 19 mmol/L 10/02/21 05:41 BUN 14 mg/dL (7-17) 10/02/21 05:41 Creatinine 0.5 mg/dL (0.6-1.2) L 10/01/21 07:49 Estimated GFR > 60 ml/min 10/02/21 05:41 BUN/Creatinine Ratio 16 % 10/02/21 05:41 Glucose 130 mg/dL (65-100) H 10/02/21 05:41 POC Glucose 145 mg/dL (70-105) H 10/02/21 07:47 Lactic Acid 1.00 mmol/L (0.7-2.0) 09/24/21 21:54 Calcium 6.9 mg/dL (8.4-10.2) L 10/02/21 05:41 Total Bilirubin 0.60 mg/dL (0.1-1.2) 09/24/21 14:58 AST 16 units/L (5-40) 09/24/21 14:58 ALT 17 units/L (7-56) 09/24/21 14:58 Alkaline Phosphatase 83 units/L (35-129) 09/24/21 14:58 Total Protein 6.1 g/dL (6.3-8.2) L 09/24/21 14:58 Albumin 3.3 g/dL (3.9-5) L 09/24/21 14:58 Albumin/Globulin Ratio 1.2 % 09/24/21 14:58 Urine Color Yellow (Yellow) 09/24/21 14:49 Urine Turbidity Slightly-cloudy (Clear) 09/24/21 14:49 Urine pH 6.0 (5.0-7.0) 09/24/21 14:49 Ur Specific [place] 1.017 (1.003-1.030) 09/24/21 14:49 Urine Protein 30 mg/dl mg/dL (Negative) 09/24/21 14:49 Urine Glucose (UA) Neg mg/dL (Negative) 09/24/21 14:49 Urine Ketones Neg mg/dL (Negative) 09/24/21 14:49 Urine Blood Neg (Negative) 09/24/21 14:49 Urine Nitrite Neg (Negative) 09/24/21 14:49 Ur Reducing Substances Not Reportable 09/24/21 14:49 Urine Bilirubin Neg (Negative) 09/24/21 14:49 Urine Ictotest Not Reportable 09/24/21 14:49 Urine Urobilinogen < 2.0 mg/dL (<2.0) 09/24/21 14:49 Ur Leukocyte Esterase Neg (Negative) 09/24/21 14:49 Urine WBC (Auto) 4.0 /HPF (0.0-6.0) 09/24/21 14:49 Urine RBC (Auto) 2.0 /HPF (0.0-6.0) 09/24/21 14:49 U Epithel Cells (Auto) 18.0 /HPF (0-13.0) H 09/24/21 14:49 Urine Mucus Few /HPF 09/24/21 14:49 Urine HCG, Qual Negative (Negative) 09/24/21 14:49 Blood Type A POSITIVE 10/01/21 10:45 Antibody Screen Negative 10/01/21 10:45 Microbiology: Microbiology 09/30/21 Unknown Alex Drain Wound Culture - Preliminary Doss/IV: Voiding Method Indwelling Catheter Active Medications - Current Medications Current Medications: Generic Name Dose Route Start Last Admin Trade Name Freq PRN Reason Stop Dose Admin Albuterol 2.5 mg 09/24/21 18:07 Albuterol 2.5 Mg/3 Ml Nebu IH Q4HRT PRN Shortness Of Breath Hydromorphone HCl 0.5 mg 10/01/21 23:24 10/02/21 04:47 Hydromorphone 1 Mg/1 Ml Inj IV 0.5 mg Q3H PRN Administration Pain , Severe (7-10) Cefepime HCl 2 gm in 100 mls @ 200 mls/hr 10/02/21 15:30 Cefepime/Ns 2 Gm/100 Ml IV Q8H [facility] Protocol Metronidazole 500 mg in 100 mls @ 100 mls/hr 10/02/21 16:00 Flagyl 500 Mg/100 Ml IV Q8H [facility] Protocol Ketorolac Tromethamine 15 mg 10/02/21 00:00 10/02/21 07:29 Ketorolac 30 Mg/1 Ml Inj IV 10/07/21 00:00 15 mg Q6HR JAZ Administration Labetalol HCl 10 mg 10/01/21 08:31 10/01/21 10:02 Labetalol 20 Mg/4 Ml Inj IV 10 mg Q6H PRN Administration Hypertension Morphine Sulfate 4 mg 10/01/21 23:24 Morphine 4 Mg/1 Ml Inj IV Q4H PRN Pain, Moderate (4-6) Ondansetron HCl 4 mg 09/24/21 18:07 10/01/21 03:13 Ondansetron 4 Mg/2 Ml Inj IV 4 mg Q8H PRN Administration Nausea And Vomiting Scopolamine 1 each 10/04/21 10:00 Scopolamine Transdermal Patch 72 Hr TD Q3D JAZ Sodium Chloride 10 ml 09/24/21 22:00 10/02/21 01:10 Sodium Chloride 0.9% 10 Ml Flush Syringe IV 10 ml BID JAZ Administration Sodium Chloride 10 ml 09/24/21 18:07 09/25/21 08:34 Sodium Chloride 0.9% 10 Ml Flush Syringe IV 10 ml PRN PRN Administration LINE FLUSH Nutrition/Malnutrition Assess - Dietary Evaluation Nutrition/Malnutrition Findings: Nutrition Notes Start: 09/25/21 15:31 Freq: Status: Active Protocol: Document 10/01/21 16:50 BIN (Rec: 10/01/21 16:59 BIN [id number]) Nutrition Notes Initial or Follow up Brief Note Current Diet NPO (since 10/01 00:01). Height 5 ft 7 in Weight 90 kg [place] Body Weight (kg) 61.36 BMI 31.1 Weight change and time frame No body weight changed reported. Weight Status Obese Subjective/Other Information RD consult for routine F/U on dietary advancement. Procedure 09/30: CT barium Enema; revealed possible appendiceal perforation w/ possible fistula to sigmoid. Pt will return to OR on 10/01 for Laparoscopic diagnosis. Percent of energy/protein needs met: Pt currently on NPO. Nutrition Intervention Follow-Up By: 10/04/21 Additional Comments F/U: diet advancement, PO tolerance
[2021-10-02 09:48] LABS: Band Neutrophils # (Manual) 0.5 K/mm3; Basophils % (Manual) 0 % (0.0-1.8); Eosinophils % (Manual) 0 % (0.0-4.3); Total Cells Counted 100
[2021-10-02 09:49] LABS: Giant Platelets Few; Platelet Estimate Consistent w Auto; Target Cells Few
--- NOTE | 2021-10-02 12:12 | Progress Note ---
Assessment and Plan Postop day #1 status post laparoscopic converted to open left hemicolectomy with appendectomy for perforated appendicitis with fistulization to sigmoid colon. Patient is afebrile and stable however blood pressure is a little soft. Expect some degree of postoperative ileus will await for return of bowel function 1. We will bolus with normal saline and resume maintenance fluids, start PPN since she has been in the hospital for about a week with minimal nutritional support. 2. Continue antibiotics 3. We will leave Doss catheter in place to continue to monitor urine output. As urine remains clear and resumes yellow color with normal BUN and creatinine will remove Doss. 4. Encourage patient ambulation Subjective Date of service: 10/02/21 Narrative: No acute events overnight. Patient says she is in a lot of abdominal pain received expected given her complicated 9-hour surgery. She complains of some nausea but does not have a lot of output in her NG tube. Objective Vital Signs - 12hr 10/02/21 04:37 Temperature 98.3 F Pulse Rate 86 Respiratory 18 Rate Blood Pressure 101/61 O2 Sat by Pulse 100 Oximetry - General physical appearance well developed, no distress, moderate pain - Eyes PERRL - Respiratory normal expansion, normal respiratory effort - Abdomen soft, other (Midline bandage clean dry and intact. YURIDIA drain serosanguineous. NG tube with minimal gastric output) - Genitourinary other (Urine in Doss catheter is clear but green consistent with methylene blue injected during surgery) - Labs 10/02/21 05:41 10/02/21 05:41 Diabetes panel 10/02/21 Range/Units 05:41 Sodium 138 (137-145) mmol/L Potassium 4.4 D (3.6-5.0) mmol/L Chloride 101.6 (98-107) mmol/L Carbon Dioxide 22 (22-30) mmol/L BUN 14 (7-17) mg/dL Creatinine 0.9 D (0.6-1.2) mg/dL Glucose 130 H (65-100) mg/dL Calcium 6.9 L (8.4-10.2) mg/dL Calcium panel 10/02/21 Range/Units 05:41 Calcium 6.9 L (8.4-10.2) mg/dL Pituitary panel 10/02/21 Range/Units 05:41 Sodium 138 (137-145) mmol/L Potassium 4.4 D (3.6-5.0) mmol/L Chloride 101.6 (98-107) mmol/L Carbon Dioxide 22 (22-30) mmol/L BUN 14 (7-17) mg/dL Creatinine 0.9 D (0.6-1.2) mg/dL Glucose 130 H (65-100) mg/dL Calcium 6.9 L (8.4-10.2) mg/dL Adrenal panel 10/02/21 Range/Units 05:41 Sodium 138 (137-145) mmol/L Potassium 4.4 D (3.6-5.0) mmol/L Chloride 101.6 (98-107) mmol/L Carbon Dioxide 22 (22-30) mmol/L BUN 14 (7-17) mg/dL Creatinine 0.9 D (0.6-1.2) mg/dL Glucose 130 H (65-100) mg/dL Calcium 6.9 L (8.4-10.2) mg/dL
[2021-10-02] MEDS ORDERED: SODIUM CHLORIDE 0.9% 500 ML IVPB IV ONE (12:30)
[2021-10-02] MEDS: ONDANSETRON 4 MG/2 ML INJ IV PRN ×2 (12:38→23:00)
[2021-10-02] MEDS ORDERED: PHENOL 1.4% 177 ML BOTTLE MM PRN (13:00)
[2021-10-02] MEDS: LACTATED RINGERS 1,000 ML IV SCH ×2 (13:35→23:04)
[2021-10-02] MEDS ORDERED: DEXTROSE 10% IV SCH (20:00)
[2021-10-02] MEDS ORDERED: AMINO ACIDS IV SCH (20:00)
[2021-10-03] MEDS: metroNIDAZOLE/NS 500 MG/100 ML 500 MG/100 ML BAG IV SCH ×3 (02:17→17:30)
[2021-10-03] MEDS: KETOROLAC 30 MG/1 ML INJ IV SCH ×3 (02:18→14:29)
[2021-10-03] MEDS: HYDROmorphone 1 MG/1 ML INJ IV PRN ×4 (04:59→23:29)
--- NOTE | 2021-10-03 06:12 | Progress Note ---
Assessment and Plan Postop day #2 status post laparoscopic converted to open left hemicolectomy with appendectomy for perforated appendicitis with fistulization to sigmoid colon. Patient is afebrile and stable however blood pressure is a little soft. Expect some degree of postoperative ileus will await for return of bowel function 1. Saline decreased to 50cc/hour. Total iv with ppn is 130cc/hour. fu labs later today. 2. Continue antibiotics 3. We will leave Brantley catheter in place to continue to monitor urine output. As urine remains clear and resumes yellow color with normal BUN and creatinine will remove Brantley. 4. Encourage patient ambulation. Up out of bed and ambulation encouraged for today, discussed with nursing. Subjective Date of service: 10/03/21 Patient Reports: Positive: no new complaints Narrative: Covering for Dr. Huddleston. Patient is currently postop day #2 status post sigmoid colectomy, appendectomy and primary anastomosis.pt with co incisonal pain. No flatus no bm. Objective Vital Signs - 12hr 10/02/21 10/03/21 22:00 01:46 Respiratory 17 Rate Respiratory 18 Rate [Lower Abdomen] O2 Sat by Pulse 98 Oximetry - Abdomen tender Hernia: other (Alex with serosang output, brantley with green blue urine 800cc for shift.) - Labs 10/02/21 05:41 10/02/21 05:41 Diabetes panel 10/02/21 Range/Units 05:41 Sodium 138 (137-145) mmol/L Potassium 4.4 D (3.6-5.0) mmol/L Chloride 101.6 (98-107) mmol/L Carbon Dioxide 22 (22-30) mmol/L BUN 14 (7-17) mg/dL Creatinine 0.9 D (0.6-1.2) mg/dL Glucose 130 H (65-100) mg/dL Calcium 6.9 L (8.4-10.2) mg/dL Calcium panel 10/02/21 Range/Units 05:41 Calcium 6.9 L (8.4-10.2) mg/dL Pituitary panel 10/02/21 Range/Units 05:41 Sodium 138 (137-145) mmol/L Potassium 4.4 D (3.6-5.0) mmol/L Chloride 101.6 (98-107) mmol/L Carbon Dioxide 22 (22-30) mmol/L BUN 14 (7-17) mg/dL Creatinine 0.9 D (0.6-1.2) mg/dL Glucose 130 H (65-100) mg/dL Calcium 6.9 L (8.4-10.2) mg/dL Adrenal panel 10/02/21 Range/Units 05:41 Sodium 138 (137-145) mmol/L Potassium 4.4 D (3.6-5.0) mmol/L Chloride 101.6 (98-107) mmol/L Carbon Dioxide 22 (22-30) mmol/L BUN 14 (7-17) mg/dL Creatinine 0.9 D (0.6-1.2) mg/dL Glucose 130 H (65-100) mg/dL Calcium 6.9 L (8.4-10.2) mg/dL
[2021-10-03 06:37] LABS: Hemoglobin 6.3 gm/dl (10.1-14.3); Mean Corpuscular HGB Conc 32 % (30-34); Mean Corpuscular Volume 86 fl (79-97); Platelet Count 598 K/mm3 (140-440); Red Blood Count 2.31 M/mm3 (3.65-5.03); Red Cell Distribution Width 15.9 % (13.2-15.2)
[2021-10-03 06:55] LABS: Alanine Aminotransferase 9 units/L (7-56); Albumin 1.6 g/dL (3.9-5); BUN/Creatinine Ratio 13; Blood Urea Nitrogen 22 mg/dL (7-17); Calcium 6.4 mg/dL (8.4-10.2); Hemolysis Index 0
[2021-10-03 07:12] LABS: Hematocrit 19.8 % (30.3-42.9)
[2021-10-03] MEDS: CEFEPIME/NS 2 GM/100 ML 2 GM/100 ML BAG IV SCH ×3 (07:40→23:41)
[2021-10-03] MEDS ORDERED: SODIUM CHLORIDE 0.9% 500 ML 500 ML IV SCH (08:30)
--- NOTE | 2021-10-03 08:59 | Progress Note ---
Assessment and Plan Assessment and plan: #Sepsisimproving #Diverticulitis with abscessresolved #Peritonitis #Constipation -CT abd/pelvis showed diverticulitis with abscess -s/p diagnositic laparatomy and drain placement 09/26/2021 per general surgery. General surgery consulted; appreciate recs. -Continue cefepime 2 g every 24 hours -Continue TPN/PPN per general surgery CT barium enema (09/30/2021) revealing possible appendiceal perforation with possible fistula to sigmoid. Appendix was not visualized on prior imaging, and there was no sign of appendiceal involvement during the patient's previous operation with general surgery earlier this week. Returned to the OR on 09/30/2021 for laparoscopic examination of abdomen in the setting of recent diverticular abscess status post drainage with ALEX drain. During the procedure yesterday, laparoscopic approach was converted to open left hemicolectomy, appendectomy, and partial omentectomy. Patient tolerated the procedure well without any immediate complications Continue to monitor #BRYANNA secondary to vasomotor nephropathy Creatinine 1.9 (previously 0.9) Continue IV fluid resuscitation. Continue to monitor with daily BMP. #Acute blood loss anemia Hemoglobin 6.3. Likely secondary to recent surgical procedure. Transfusing 1 unit packed RBC Monitor with daily H&H. Transfuse if hemoglobin less than 7 or patient becomes symptomatic. #Moderate protein caloric malnutrition Albumin 1.6 Consulting nutrition; appreciate recs #Volume depletion -likely 2/2 to poor PO intake due to abdominal pain and vomiting -continue IVFs, can discontinue after patient resumes PO intake #Hypokalemiaresolved -Potassium 3.3-->3.6 -Repleted. We will monitor with BMP in the morning. #Obesity #Weight loss counseling #Exercise counseling - BMI 31.1 - Counseled patient on the importance of weight loss, incorporating exercise, and dietary changes (lean meats, fresh fruits and vegetables, and water intake). Patient expresses understanding. - Time: +15 min #Advance care planning -Disease education conducted, care plan discussed, diagnoses discussed, prognosis discussed, patient is full code. Patient knowledges understanding and agreement with care plan Time: +30 minutes. Disposition Plan: Continue medical management Total Time Spent with Patient (Minutes): 30 minutes History Interval history: No acute events overnight. Hospitalist Physical - Constitutional Vitals: Temp Pulse Resp BP Pulse Ox 98.7 F 95 H 18 92/52 98 02/26/22 21:25 10/02/21 21:25 10/03/21 01:46 10/02/21 21:25 10/02/21 22:00 General appearance: Present: severe distress, well-nourished, obese, other (Asleep at bedside) - EENT Eyes: Present: PERRL, EOM intact ENT: hearing intact, clear oral mucosa, dentition normal, other (NGT in place) - Neck Neck: Present: supple, normal ROM - Respiratory Respiratory effort: normal Respiratory: bilateral: CTA - Cardiovascular Rhythm: regular Heart Sounds: Present: S1 & S2 - Extremities Extremities: no ischemia, pulses intact, pulses symmetrical, normal temperature, normal color Extremity abnormal: edema (Diffuse edema) Peripheral Pulses: within normal limits - Abdominal General gastrointestinal: soft, tender (Significant tenderness of abdomen at surgical site; surgical site covered with light bandage; ALEX drain with serosanguineous fluid), non-distended, hypoactive bowel sounds - Integumentary Integumentary: Present: clear, warm, dry - Psychiatric Psychiatric: appropriate mood/affect, memory intact, cooperative - Neurologic Neurologic: CNII-XII intact, moves all extremities - Allied Health Allied health notes reviewed: nursing Results - Labs CBC & Chem 7: 10/03/21 04:55 10/03/21 04:55 Labs: Laboratory Last Values WBC 26.1 K/mm3 (4.5-11.0) H 10/03/21 04:55 RBC 2.31 M/mm3 (3.65-5.03) L 10/03/21 04:55 Hgb 6.3 gm/dl (10.1-14.3) L 10/03/21 04:55 Hct 19.8 % (30.3-42.9) L* 10/03/21 04:55 MCV 86 fl (79-97) 10/03/21 04:55 MCH 28 pg (28-32) 10/03/21 04:55 MCHC 32 % (30-34) 10/03/21 04:55 RDW 15.9 % (13.2-15.2) H 10/03/21 04:55 Plt Count 598 K/mm3 (140-440) H 10/03/21 04:55 [place] % (Auto) 5.9 % (0.0-7.3) 09/28/21 04:55 Eos % (Auto) 0.4 % (0.0-4.3) 09/28/21 04:55 [place] # (Auto) 0.9 K/mm3 (0.0-0.8) H 09/28/21 04:55 Eos # (Auto) 0.1 K/mm3 (0.0-0.4) 09/28/21 04:55 Baso # (Auto) 0.0 K/mm3 (0.0-0.1) 09/28/21 04:55 Add Manual Diff Complete 10/02/21 05:41 Total Counted 100 10/02/21 05:41 Seg Neutrophils % Ceramics Technician 10/03/21 04:55 Seg Neuts % (Manual) 88.0 % (40.0-70.0) H 10/02/21 05:41 Band Neutrophils % 2.0 % 10/02/21 05:41 Lymphocytes % (Manual) 2.0 % (13.4-35.0) L 10/02/21 05:41 Reactive Lymphs % (Man) 1.0 % 10/02/21 05:41 Monocytes % (Manual) 6.0 % (0.0-7.3) 10/02/21 05:41 Eosinophils % (Manual) 0 % (0.0-4.3) 10/02/21 05:41 Basophils % (Manual) 0 % (0.0-1.8) 10/02/21 05:41 Metamyelocytes % 1.0 % 10/02/21 05:41 Myelocytes % 0 % 10/02/21 05:41 Promyelocytes % 0 % 10/02/21 05:41 Blast Cells % 0 % 10/02/21 05:41 Nucleated RBC % Not Reportable 10/02/21 05:41 Seg Neutrophils # 14.0 K/mm3 (1.8-7.7) H 09/28/21 04:55 Seg Neutrophils # Man 20.4 K/mm3 (1.8-7.7) H 10/02/21 05:41 Band Neutrophils # 0.5 K/mm3 10/02/21 05:41 Lymphocytes # (Manual) 0.5 K/mm3 (1.2-5.4) L 10/02/21 05:41 Abs React Lymphs (Man) 0.2 K/mm3 10/02/21 05:41 Monocytes # (Manual) 1.4 K/mm3 (0.0-0.8) H 10/02/21 05:41 Eosinophils # (Manual) 0.0 K/mm3 (0.0-0.4) 10/02/21 05:41 Basophils # (Manual) 0.0 K/mm3 (0.0-0.1) 10/02/21 05:41 Metamyelocytes # 0.2 K/mm3 10/02/21 05:41 Myelocytes # 0.0 K/mm3 10/02/21 05:41 Promyelocytes # 0.0 K/mm3 10/02/21 05:41 Blast Cells # 0.0 K/mm3 10/02/21 05:41 Pathologist Review 09/24/21 14:58 WBC Morphology Not Reportable 10/02/21 05:41 Hypersegmented Neuts Not Reportable 10/02/21 05:41 Hyposegmented Neuts Not Reportable 10/02/21 05:41 Hypogranular Neuts Not Reportable 10/02/21 05:41 Smudge Cells Not Reportable 10/02/21 05:41 Toxic Granulation Not Reportable 10/02/21 05:41 Toxic Vacuolation Not Reportable 10/02/21 05:41 Dohle Bodies Not Reportable 10/02/21 05:41 Pelger-Huet Anomaly Not Reportable 10/02/21 05:41 Marlene Rods Not Reportable 10/02/21 05:41 Platelet Estimate Consistent w auto 10/02/21 05:41 Clumped Platelets Not Reportable 10/02/21 05:41 Plt Clumps, EDTA Not Reportable 10/02/21 05:41 Large Platelets Not Reportable 10/02/21 05:41 Giant Platelets Few 10/02/21 05:41 Platelet Satelliting Not Reportable 10/02/21 05:41 Plt Morphology Comment Not Reportable 10/02/21 05:41 RBC Morphology Not Reportable 10/02/21 05:41 Dimorphic RBCs Not Reportable 10/02/21 05:41 Polychromasia Few 10/02/21 05:41 Hypochromasia Not Reportable 10/02/21 05:41 Poikilocytosis Not Reportable 10/02/21 05:41 Anisocytosis Not Reportable 10/02/21 05:41 Microcytosis Not Reportable 10/02/21 05:41 Macrocytosis Not Reportable 10/02/21 05:41 Spherocytes Not Reportable 10/02/21 05:41 Pappenheimer Bodies Not Reportable 10/02/21 05:41 Sickle Cells Not Reportable 10/02/21 05:41 Target Cells Few 10/02/21 05:41 Tear Drop Cells Not Reportable 10/02/21 05:41 Ovalocytes Not Reportable 10/02/21 05:41 Helmet Cells Not Reportable 10/02/21 05:41 [place] Bodies Not Reportable 10/02/21 05:41 [place] Rings Not Reportable 10/02/21 05:41 [place] Cells Not Reportable 10/02/21 05:41 Bite Cells Not Reportable 10/02/21 05:41 Crenated Cell Not Reportable 10/02/21 05:41 Elliptocytes Not Reportable 10/02/21 05:41 Acanthocytes (Spur) Not Reportable 10/02/21 05:41 Rouleaux Not Reportable 10/02/21 05:41 Hemoglobin C Crystals Not Reportable 10/02/21 05:41 Schistocytes Not Reportable 10/02/21 05:41 Malaria parasites Not Reportable 10/02/21 05:41 Flaco Bodies Not Reportable 10/02/21 05:41 Hem Pathologist Commnt No 10/02/21 05:41 Sodium 138 mmol/L (137-145) 10/03/21 04:55 Potassium 3.9 mmol/L (3.6-5.0) 10/03/21 04:55 Chloride 105.1 mmol/L (98-107) 10/03/21 04:55 Carbon Dioxide 22 mmol/L (22-30) 10/03/21 04:55 Anion Gap 15 mmol/L 10/03/21 04:55 BUN 22 mg/dL (7-17) H 10/03/21 04:55 Creatinine 1.7 mg/dL (0.6-1.2) H D 10/03/21 04:55 Estimated GFR 42 ml/min 10/03/21 04:55 BUN/Creatinine Ratio 13 % 10/03/21 04:55 Glucose 145 mg/dL (65-100) H 10/03/21 04:55 POC Glucose 162 mg/dL (70-105) H 10/03/21 07:15 Lactic Acid 1.00 mmol/L (0.7-2.0) 09/24/21 21:54 Calcium 6.4 mg/dL (8.4-10.2) L 10/03/21 04:55 Phosphorus 2.50 mg/dL (2.5-4.5) 10/03/21 04:55 Magnesium 2.40 mg/dL (1.7-2.3) H 10/03/21 04:55 Total Bilirubin < 0.20 mg/dL (0.1-1.2) 10/03/21 04:55 AST 31 units/L (5-40) 10/03/21 04:55 ALT 9 units/L (7-56) 10/03/21 04:55 Alkaline Phosphatase 44 units/L (35-129) 10/03/21 04:55 Total Protein 4.2 g/dL (6.3-8.2) L 10/03/21 04:55 Albumin 1.6 g/dL (3.9-5) L 10/03/21 04:55 Albumin/Globulin Ratio 0.6 % 10/03/21 04:55 Urine Color Yellow (Yellow) 09/24/21 14:49 Urine Turbidity Slightly-cloudy (Clear) 09/24/21 14:49 Urine pH 6.0 (5.0-7.0) 09/24/21 14:49 Ur Specific [place] 1.017 (1.003-1.030) 09/24/21 14:49 Urine Protein 30 mg/dl mg/dL (Negative) 09/24/21 14:49 Urine Glucose (UA) Neg mg/dL (Negative) 09/24/21 14:49 Urine Ketones Neg mg/dL (Negative) 09/24/21 14:49 Urine Blood Neg (Negative) 09/24/21 14:49 Urine Nitrite Neg (Negative) 09/24/21 14:49 Ur Reducing Substances Not Reportable 09/24/21 14:49 Urine Bilirubin Neg (Negative) 09/24/21 14:49 Urine Ictotest Not Reportable 09/24/21 14:49 Urine Urobilinogen < 2.0 mg/dL (<2.0) 09/24/21 14:49 Ur Leukocyte Esterase Neg (Negative) 09/24/21 14:49 Urine WBC (Auto) 4.0 /HPF (0.0-6.0) 09/24/21 14:49 Urine RBC (Auto) 2.0 /HPF (0.0-6.0) 09/24/21 14:49 U Epithel Cells (Auto) 18.0 /HPF (0-13.0) H 09/24/21 14:49 Urine Mucus Few /HPF 09/24/21 14:49 Urine HCG, Qual Negative (Negative) 09/24/21 14:49 Blood Type A POSITIVE 10/01/21 10:45 Antibody Screen Negative 10/01/21 10:45 Crossmatch See Detail 10/01/21 10:45 Microbiology: Microbiology 09/30/21 Unknown Alex Drain Wound Culture - Preliminary Enterococcus Species Doss/IV: Voiding Method Indwelling Catheter Active Medications - Current Medications Current Medications: Generic Name Dose Route Start Last Admin Trade Name Freq PRN Reason Stop Dose Admin Albuterol 2.5 mg 09/24/21 18:07 Albuterol 2.5 Mg/3 Ml Nebu IH Q4HRT PRN Shortness Of Breath Hydromorphone HCl 0.5 mg 10/01/21 23:24 10/03/21 04:59 Hydromorphone 1 Mg/1 Ml Inj IV 0.5 mg Q3H PRN Administration Pain , Severe (7-10) Cefepime HCl 2 gm in 100 mls @ 200 mls/hr 10/02/21 15:30 10/03/21 07:40 Cefepime/Ns 2 Gm/100 Ml IV 200 mls/hr Q8H JAZ Administration Protocol Metronidazole 500 mg in 100 mls @ 100 mls/hr 10/02/21 16:00 10/03/21 02:17 Flagyl 500 Mg/100 Ml IV 100 mls/hr Q8H JAZ Administration Protocol Lactated Ringer's 1,000 mls @ 125 mls/hr 10/02/21 13:00 10/02/21 23:04 Lactated Ringers IV 125 mls/hr DIRECT JAZ Administration Amino Acids 1,920 mls @ 80 mls/hr 10/02/21 20:00 10/02/21 23:25 Clinimix 4.25%-10% Solution IV 10/03/21 19:59 80 mls/hr ONCE JAZ Administration Sodium Chloride 500 mls @ 0 mls/hr 10/03/21 08:30 Nacl 0.9% 500 Ml IV 10/03/21 19:00 ONCE@0830 JAZ As Directed Ketorolac Tromethamine 15 mg 10/02/21 00:00 10/03/21 07:40 Ketorolac 30 Mg/1 Ml Inj IV 10/07/21 00:00 15 mg Q6HR JAZ Administration Labetalol HCl 10 mg 10/01/21 08:31 10/01/21 10:02 Labetalol 20 Mg/4 Ml Inj IV 10 mg Q6H PRN Administration Hypertension Morphine Sulfate 4 mg 10/01/21 23:24 Morphine 4 Mg/1 Ml Inj IV Q4H PRN Pain, Moderate (4-6) Ondansetron HCl 4 mg 09/24/21 18:07 10/02/21 23:00 Ondansetron 4 Mg/2 Ml Inj IV 4 mg Q8H PRN Administration Nausea And Vomiting Phenol 1 spray 10/02/21 13:00 Phenol 1.4% 177 Ml Bottle MM PRN PRN Sore Throat Scopolamine 1 each 10/04/21 10:00 Scopolamine Transdermal Patch 72 Hr TD Q3D JAZ Sodium Chloride 10 ml 09/24/21 22:00 10/02/21 23:01 Sodium Chloride 0.9% 10 Ml Flush Syringe IV 10 ml BID JAZ Administration Sodium Chloride 10 ml 09/24/21 18:07 09/25/21 08:34 Sodium Chloride 0.9% 10 Ml Flush Syringe IV 10 ml PRN PRN Administration LINE FLUSH Nutrition/Malnutrition Assess - Dietary Evaluation Nutrition/Malnutrition Findings: Nutrition Notes Start: 09/25/21 15:31 Freq: Status: Active Protocol: Document 10/02/21 13:57 RS (Rec: 10/02/21 14:29 RS [email or web address]) Nutrition Notes Need for Assessment generated from: MD Order Initial or Follow up Reassessment Current Diagnosis Sepsis Other Pertinent Diagnosis Diverticulitis w/ abscess, s/p L hemicolectomy, perforated appendicitis Current Diet NPO Labs/Tests GLU: 130 Ca: 6.9 Pertinent Medications reviewed Height 5 ft 7 in Weight 90 kg [place] Body Weight (kg) 61.36 BMI 31.1 Weight change and time frame RICHARD at this time Weight Status Obese Subjective/Other Information MD consult for PPN. Pt has had negliable nutritional intake for 1 week now. No CMP, Mg, and Phos ordered. Will initiate Clinimix today and start PPN tomorrowing pending CMP, Mg, and Phos in AM. Pt reports high levels of abdominal pain and nausea.Last Albumin value was drawn on was below range at (3.3). cCa may be currently trending below range ~7.8mg/dL. Percent of energy/protein needs met: 0%/0% Burn Absent Trauma Absent GI Symptoms Nausea Food Allergy No Skin Integrity/Comment Cecilio Score 20 Current % PO Negligible Minimum of two criteria No physical signs of malnutrition Energy Intake (severe) < or equal to 50% Estimated Energy Requirement > or equal to 5 days #1 Nutrition Diagnosis Altered GI function Diagnosis Progress(for reassessment Continues documentation) Is patient on ventilator? No Is Patient Ambulatory and/or Out of Bed Yes REE-([place]-St. Jeor-ambulatory/OOB) [ 2135.419 [id number]] Kcal/Kg value to use for calculation 20 Approximate Energy Requirements Using 1800 kcal/Kg Calculation Used for Recommendations Kcal/kg Additional Notes Protein: 108-135g/day (Surgery 1.2-1.5g/kg BW/day) Fluid needs: 1mL per kcal or per MD Nutrition Intervention Nutrition Support: Start Clinimix at 80ml/hr with : 4.25% AA 10% Dextrose Osmolarity: 911 Kcal 966 Protein (gm) 80 Carbohydrates (gm) 190 Fat (gm) 0 Fluid (mL) 1,920 Fiber (gm) 0 Goal #1 Advance Clinimix to PPN once CMP, Mg, and Phos labs are available in AM Goal #2 Clinimix will help meet pt's nturitional needs as best as possible Goal #3 Wt loss/ wt maintenance Follow-Up By: 10/03/21 Additional Comments F/U for Mg & Phos in AM.
[2021-10-03 10:58] LABS: Band Neutrophils # (Manual) 1.8 K/mm3; Basophils % (Manual) 0 % (0.0-1.8); Eosinophils % (Manual) 0 % (0.0-4.3); Hypochromasia 1+; Platelet Clumps Rare; Platelet Estimate Consistent w Auto; Total Cells Counted 100
[2021-10-03] MEDS ORDERED: DEXTROSE 50% IN WATER (25GM) 50 ML SYRINGE IV PRN (12:19)
[2021-10-03] MEDS ORDERED: DEXTROSE 10% *Hypoglycemia IV PRN (12:37)
[2021-10-03] MEDS ORDERED: NALOXONE 0.4 MG/1 ML INJ IV PRN (14:00)
[2021-10-03] MEDS: INSULIN REGULAR, HUMAN 100 UNITS/1 ML SUB-Q SCH ×2 (14:14→19:12)
[2021-10-03] MEDS: MORPHINE 4 MG/1 ML INJ IV SCH ×2 (15:03→23:36)
[2021-10-03] MEDS: LACTATED RINGERS 1,000 ML IV SCH (15:13)
[2021-10-03] MEDS ORDERED: TOTAL PARENTERAL NUTRITION 2,400 ML IV SCH (20:00)
[2021-10-03] MEDS: ONDANSETRON 4 MG/2 ML INJ IV PRN (23:28)
[2021-10-04] MEDS: INSULIN REGULAR, HUMAN 100 UNITS/1 ML SUB-Q SCH ×3 (00:15→12:17)
[2021-10-04] MEDS: metroNIDAZOLE/NS 500 MG/100 ML 500 MG/100 ML BAG IV SCH ×2 (00:17→07:13)
[2021-10-04] MEDS: MORPHINE 4 MG/1 ML INJ IV SCH ×4 (02:41→21:09)
[2021-10-04 06:28] LABS: Hemoglobin 6.6 gm/dl (10.1-14.3); Mean Corpuscular HGB Conc 34 % (30-34); Mean Corpuscular Volume 83 fl (79-97); Platelet Count 602 K/mm3 (140-440); Red Blood Count 2.33 M/mm3 (3.65-5.03); Red Cell Distribution Width 16.1 % (13.2-15.2)
[2021-10-04 06:35] LABS: Hematocrit 19.4 % (30.3-42.9)
[2021-10-04 06:38] LABS: Calcium 6.7 mg/dL (8.4-10.2)
[2021-10-04] MEDS: CEFEPIME/NS 2 GM/100 ML 2 GM/100 ML BAG IV SCH (06:41)
[2021-10-04] MEDS ORDERED: SODIUM CHLORIDE 0.9% 500 ML 500 ML IV NR ×2 (07:20→08:09)
[2021-10-04] MEDS ORDERED: CALCIUM GLUCONATE 2,000 MG in SODIUM CHLORIDE 0.9% 100 ML IV ONE (07:22)
[2021-10-04] MEDS: HYDROmorphone 1 MG/1 ML INJ IV PRN ×3 (08:46→15:05)
[2021-10-04 08:48] LABS: Band Neutrophils # (Manual) 1.3 K/mm3; Basophils % (Manual) 0 % (0.0-1.8); Eosinophils % (Manual) 0 % (0.0-4.3); Hypochromasia 1+; Large Platelets Few; Myelocytes # (Manual) 0.5 K/mm3; Platelet Estimate Consistent w Auto; Promyelocytes # (Manual) 0.3 K/mm3; Total Cells Counted 100
[2021-10-04] MEDS ORDERED: POTASSIUM PHOSPHATE 15 MMOL in SODIUM CHLORIDE 0.9% 250ML 250 ML IV ONE (09:00)
--- NOTE | 2021-10-04 10:34 | Consultation ---
History of Present Illness - Reason for Consult Consult date: 10/04/21 - History of Present Illness 31-year-old female past medical history obesity, nephrolithiasis presented to hospital complaining of generalized abdominal pain. This is associated with nausea, vomiting. She was found to have diverticulitis complicated by sepsis, and was admitted. She was taken to the OR 09/26/2021 for washout of pericolonic abscesses, and return to the OR 10/01/2021 for left hemicolectomy with appendecto my, and partial omentectomy. We are consulted for intra-abdominal infection. Afebrile with T-max 100.3 and a white count of 26.4. Decreased renal function with EGFR 35. YURIDIA drain cultures with Enterococcus PCM status vancomycin resistance. Blood cultures no growth so far. Currently on Levaquin and metronidazole. Imaging personally reviewed: CT abdomen pelvis: Appendiceal rupture with fistulization to the sigmoid colon. Review of Systems: Bold if positive, otherwise negative General: fevers, chills, rigors HEENT: visual disturbance, diplopia, eye pain Respiratory: cough, sputum, hemoptysis, shortness of breath Cardiovascular: chest pain, syncope Gastrointestinal: nausea, vomiting, diarrhea, abdominal pain Genitourinary: dysuria, hematuria, flank pain Musculoskeletal: neck pain, back pain, joint pain, edema Neurologic: headaches, seizures Hematologic: easy bruising or bleeding Endocrine: night sweats, acute weight loss Skin: rash, jaundice, redness Psychiatric: suicidal, homicidal ideation Past History Past Medical History: other (See HPI) Past Surgical History: No surgical history, Other (Reviewed) Social history: single. denies: smoking, alcohol abuse, prescription drug abuse Family history: hypertension Medications and Allergies Allergies Allergy/AdvReac Type Severity Reaction Status Date / Time No Known Allergies Allergy Verified 09/24/21 12:21 Home Medications Medication Instructions Recorded Confirmed Last Taken Type No Known Home Medications [No 09/27/21 09/27/21 Unknown History Reported Home Medications] Active Meds: Active Medications Albuterol (Albuterol 2.5 Mg/3 Ml Nebu) 2.5 mg IH Q4HRT PRN PRN Reason: Shortness Of Breath Dextrose (Dextrose 10% *Hypoglycemia) 0 ml IV PRN PRN PRN Reason: Hypoglycemia Hydromorphone HCl (Hydromorphone 1 Mg/1 Ml Inj) 1 mg IV Q3H PRN PRN Reason: Pain , Severe (7-10) Last Admin: 10/04/21 08:46 Dose: 1 mg Metronidazole (Flagyl 500 Mg/100 Ml) 500 mg in 100 mls @ 100 mls/hr IV Q8H [facility]; Protocol Last Admin: 10/04/21 07:13 Dose: 100 mls/hr Lactated Ringer's (Lactated Ringers) 1,000 mls @ 175 mls/hr IV DIRECT JAZ Last Admin: 10/03/21 15:13 Dose: 125 mls/hr Amino Acids/Electrolytes/Dextrose (Tpn Adult) 2,400 mls @ 100 mls/hr IV DAILY@1999 JAZ; Protocol Stop: 10/04/21 19:59 Last Admin: 10/03/21 21:37 Dose: 100 mls/hr Potassium Phosphate 15 mmol/ (Sodium Chloride) 255 mls @ 63 mls/hr IV ONCE ONE Stop: 10/04/21 13:02 Levofloxacin/Dextrose (Levaquin 750mg/150ml) 750 mg in 150 mls @ 100 mls/hr IV Q48HR [facility]; Protocol Sodium Chloride (Nacl 0.9% 500 Ml) 500 mls @ 0 mls/hr IV ONCE NR Stop: 10/05/21 08:08 Insulin Human Regular (Insulin Regular, Human 100 Units/1 Ml) 0 units SUB-Q Q6H [facility]; Protocol Last Admin: 10/04/21 06:43 Dose: 2 units Labetalol HCl (Labetalol 20 Mg/4 Ml Inj) 10 mg IV Q6H PRN PRN Reason: Hypertension Last Admin: 10/01/21 10:02 Dose: 10 mg Morphine Sulfate (Morphine 4 Mg/1 Ml Inj) 3 mg IV Q6H JAZ Last Admin: 10/04/21 07:13 Dose: 3 mg Naloxone HCl (Naloxone 0.4 Mg/1 Ml Inj) 0.1 mg IV Q2MIN PRN PRN Reason: Res Rate </= 8 or 02 SAT < 92% Ondansetron HCl (Ondansetron 4 Mg/2 Ml Inj) 4 mg IV Q8H PRN PRN Reason: Nausea And Vomiting Last Admin: 10/03/21 23:28 Dose: 4 mg Phenol (Phenol 1.4% 177 Ml Bottle) 1 spray MM PRN PRN PRN Reason: Sore Throat Last Admin: 10/03/21 10:23 Dose: 1 spray Scopolamine (Scopolamine Transdermal Patch 72 Hr) 1 each TD Q3D JAZ Sodium Chloride (Sodium Chloride 0.9% 10 Ml Flush Syringe) 10 ml IV BID JAZ Last Admin: 10/03/21 23:35 Dose: 10 ml Sodium Chloride (Sodium Chloride 0.9% 10 Ml Flush Syringe) 10 ml IV PRN PRN PRN Reason: LINE FLUSH Last Admin: 09/25/21 08:34 Dose: 10 ml Physical Examination - Physical Exam Narrative exam: Physical Exam: Constitutional: Alert, cooperative. No acute distress Head, Ears, Nose: Normocephalic, atraumatic. External ears, nose normal Eyes: Conjunctivae/corneas clear. No icterus. No ptosis. Neck: Supple, no meningeal signs Oral: dentition fair, no thrush Cardiovascular: S1, S2 normal. Respiratory: Good air entry, clear to auscultation bilaterally GI: Appropriately tender postoperatively, YURIDIA drain in place Musculoskeletal: No pedal edema, no cyanosis. Skin: No rash or abscess Hem/Lymphatic: No palpable cervical or supraclavicular nodes. No lymphangitis Psych: Mood ok. Affect normal Neurological: Awake, alert, oriented. No gross abnormality - Constitutional Vitals: Vital Signs Temp Pulse Resp BP Pulse Ox 98.5 F 100 H 16 130/75 100 10/04/21 10:13 10/04/21 10:13 10/04/21 10:13 10/04/21 10:13 10/04/21 10:13 Temperature -Last 24 Hours Temperature 98.5 F Temperature 98.5 F Temperature 99.0 F Temperature 99.1 F Temperature 100.3 F Temperature 100.3 F Temperature 99.4 F Temperature 99.4 F Temperature 99.4 F Temperature 99.2 F Temperature 99.2 F Temperature 98.9 F Temperature 98.9 F Temperature 99.0 F Results - Labs CBC & Chem 7: 10/04/21 04:44 10/04/21 04:44 Labs: Abnormal lab results 10/01/21 10/03/21 10/03/21 Range/Units 10:45 04:55 11:49 WBC (4.5-11.0) K/mm3 RBC (3.65-5.03) M/mm3 Hgb (10.1-14.3) gm/dl Hct (30.3-42.9) % RDW (13.2-15.2) % Plt Count (140-440) K/mm3 Seg Neuts % (Manual) 82.0 H (40.0-70.0) % Lymphocytes % (Manual) 1.0 L (13.4-35.0) % Monocytes % (Manual) 10.0 H (0.0-7.3) % Seg Neutrophils # Man 21.4 H (1.8-7.7) K/mm3 Lymphocytes # (Manual) 0.3 L (1.2-5.4) K/mm3 Monocytes # (Manual) 2.6 H (0.0-0.8) K/mm3 Sodium (137-145) mmol/L Potassium (3.6-5.0) mmol/L Carbon Dioxide (22-30) mmol/L BUN (7-17) mg/dL Creatinine (0.6-1.2) mg/dL Glucose (65-100) mg/dL POC Glucose 171 H (70-105) mg/dL Calcium (8.4-10.2) mg/dL Phosphorus (2.5-4.5) mg/dL Magnesium (1.7-2.3) mg/dL Crossmatch See Detail 10/03/21 10/03/21 10/04/21 Range/Units 17:06 23:31 04:44 WBC 26.4 H (4.5-11.0) K/mm3 RBC 2.33 L (3.65-5.03) M/mm3 Hgb 6.6 L (10.1-14.3) gm/dl Hct 19.4 L* (30.3-42.9) % RDW 16.1 H (13.2-15.2) % Plt Count 602 H (140-440) K/mm3 Seg Neuts % (Manual) 80.0 H (40.0-70.0) % Lymphocytes % (Manual) 5.0 L (13.4-35.0) % Monocytes % (Manual) (0.0-7.3) % Seg Neutrophils # Man 21.1 H (1.8-7.7) K/mm3 Lymphocytes # (Manual) (1.2-5.4) K/mm3 Monocytes # (Manual) 1.8 H (0.0-0.8) K/mm3 Sodium (137-145) mmol/L Potassium (3.6-5.0) mmol/L Carbon Dioxide (22-30) mmol/L BUN (7-17) mg/dL Creatinine (0.6-1.2) mg/dL Glucose (65-100) mg/dL POC Glucose 174 H 179 H (70-105) mg/dL Calcium (8.4-10.2) mg/dL Phosphorus (2.5-4.5) mg/dL Magnesium (1.7-2.3) mg/dL Crossmatch 10/04/21 10/04/21 Range/Units 04:44 05:25 WBC (4.5-11.0) K/mm3 RBC (3.65-5.03) M/mm3 Hgb (10.1-14.3) gm/dl Hct (30.3-42.9) % RDW (13.2-15.2) % Plt Count (140-440) K/mm3 Seg Neuts % (Manual) (40.0-70.0) % Lymphocytes % (Manual) (13.4-35.0) % Monocytes % (Manual) (0.0-7.3) % Seg Neutrophils # Man (1.8-7.7) K/mm3 Lymphocytes # (Manual) (1.2-5.4) K/mm3 Monocytes # (Manual) (0.0-0.8) K/mm3 Sodium 135 L (137-145) mmol/L Potassium 3.4 L (3.6-5.0) mmol/L Carbon Dioxide 21 L (22-30) mmol/L BUN 28 H (7-17) mg/dL Creatinine 2.0 H (0.6-1.2) mg/dL Glucose 171 H (65-100) mg/dL POC Glucose 174 H (70-105) mg/dL Calcium 6.7 L (8.4-10.2) mg/dL Phosphorus 1.30 L D (2.5-4.5) mg/dL Magnesium 2.40 H (1.7-2.3) mg/dL Crossmatch Assessment and Plan Cultures: Blood culture no growth so far Wound culture VRE A/P: 31-year-old female past medical history obesity, nephrolithiasis now with: #Acute sepsis: Present with leukocytosis and tachycardia. Secondary to intra- abdominal infection #Pericolonic abscesses with appendiceal rupture and fistulization: Status post washout of abscesses, cultures now with VRE. #BRYANNA: Renally dose medications #Obesity Recs: -Stop Levaquin -Started daptomycin 8mg/kg q24h, higher dosing for VRE -Continue metronidazole. -Monitor white count with change in antibiotics. If no improvement may need further scans to assess for repeat abscess formation Thank you for the consult, we will continue to follow. Josefina Perry MD [facility] ([facility] ([facility] O: [phone] F: [phone]
--- NOTE | 2021-10-04 10:51 | Progress Note ---
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 General surgery consulted; appreciate recs. -Continue cefepime 2 g every 24 hours -Continue TPN/PPN per general surgery CT barium enema (09/30/2021) revealing possible appendiceal perforation with possible fistula to sigmoid. Appendix was not visualized on prior imaging, and there was no sign of appendiceal involvement during the patient's previous operation with general surgery earlier this week. Returned to the OR on 09/30/2021 for laparoscopic examination of abdomen in the setting of recent diverticular abscess status post drainage with ALEX drain. During the procedure yesterday, laparoscopic approach was converted to open left hemicolectomy, appendectomy, and partial omentectomy. Patient tolerated the procedure well without any immediate complications Continue to monitor #Acute hypoxic respiratory failure - etiology: Likely secondary to recent surgical procedures versus volume overload - baseline oxygen requirements: None - supplemental oxygen: 2 L nasal cannula - Continue protocol: continue pulse oximetry, wean oxygen as tolerated, ordered incentive spirometry and educated patient on how to use it and its importance. - continue to monitor #BRYANNA secondary to vasomotor nephropathy Creatinine 1.9 (previously 0.9)-->2.0 Continue IV fluid resuscitation. Continue to monitor with daily BMP. #Acute blood loss anemia Hemoglobin 6.6. Likely secondary to recent surgical procedure. Did not respond appropriately to transfusion of 1 unit packed RBC on 10/03/2021. Transfusing another 2 units today. Monitor with daily H&H. Transfuse if hemoglobin less than 7 or patient becomes symptomatic. #Moderate protein caloric malnutrition Albumin 1.6 Consulting nutrition; appreciate recs #Volume depletion -likely 2/2 to poor PO intake due to abdominal pain and vomiting -continue IVFs, can discontinue after patient resumes PO intake #Hypokalemia -Potassium 3.3-->3.6--> 3.4 -Repleted. We will monitor with BMP in the morning. #Advance care planning -Disease education conducted, care plan discussed, diagnoses discussed, prognosis discussed, patient is full code. Patient knowledges understanding and agreement with care plan Time: +30 minutes. Disposition Plan: Continue medical management Total Time Spent with Patient (Minutes): 45 minutes History Interval history: No acute events overnight. Hospitalist Physical - Constitutional Vitals: Temp Pulse Resp BP Pulse Ox 98.5 F 100 H 16 130/75 100 10/04/21 10:13 10/04/21 10:13 10/04/21 10:13 10/04/21 10:13 10/04/21 10:13 General appearance: Present: severe distress, well-nourished, obese, other (Asleep at bedside) - EENT Eyes: Present: PERRL, EOM intact ENT: hearing intact, clear oral mucosa, dentition normal, other (NG tube in place with dark brownish output) - Neck Neck: Present: supple, normal ROM - Respiratory Respiratory effort: normal Respiratory: bilateral: CTA (On 2 L nasal cannula) - Cardiovascular Rhythm: regular Heart Sounds: Present: S1 & S2 - Extremities Extremities: no ischemia, pulses intact, pulses symmetrical, normal temperature, Full ROM Extremity abnormal: erythema Peripheral Pulses: within normal limits - Abdominal General gastrointestinal: soft, tender, non-distended, hypoactive bowel sounds, other (ALEX drain with serosanguineous fluid) Localized gastrointestinal: tender: diffuse (Diffuse significant tenderness on palpation; appropriate given her recent surgical procedures) - Integumentary Integumentary: Present: clear, warm, dry - Psychiatric Psychiatric: appropriate mood/affect, intact judgment & insight, memory intact, cooperative - Neurologic Neurologic: CNII-XII intact, moves all extremities - Allied Health Allied health notes reviewed: nursing Results - Labs CBC & Chem 7: 10/04/21 04:44 10/04/21 04:44 Labs: Laboratory Last Values WBC 26.4 K/mm3 (4.5-11.0) H 10/04/21 04:44 RBC 2.33 M/mm3 (3.65-5.03) L 10/04/21 04:44 Hgb 6.6 gm/dl (10.1-14.3) L 10/04/21 04:44 Hct 19.4 % (30.3-42.9) L* 10/04/21 04:44 MCV 83 fl (79-97) 10/04/21 04:44 MCH 28 pg (28-32) 10/04/21 04:44 MCHC 34 % (30-34) 10/04/21 04:44 RDW 16.1 % (13.2-15.2) H 10/04/21 04:44 Plt Count 602 K/mm3 (140-440) H 10/04/21 04:44 Delta % (Auto) 5.9 % (0.0-7.3) 09/28/21 04:55 Eos % (Auto) 0.4 % (0.0-4.3) 09/28/21 04:55 Delta # (Auto) 0.9 K/mm3 (0.0-0.8) H 09/28/21 04:55 Eos # (Auto) 0.1 K/mm3 (0.0-0.4) 09/28/21 04:55 Baso # (Auto) 0.0 K/mm3 (0.0-0.1) 09/28/21 04:55 Add Manual Diff Complete 10/04/21 04:44 Total Counted 100 10/04/21 04:44 Seg Neutrophils % [employer]ger [employer] Supervisor 10/03/21 04:55 Seg Neuts % (Manual) 80.0 % (40.0-70.0) H 10/04/21 04:44 Band Neutrophils % 5.0 % 10/04/21 04:44 Lymphocytes % (Manual) 5.0 % (13.4-35.0) L 10/04/21 04:44 Reactive Lymphs % (Man) 0 % 10/04/21 04:44 Monocytes % (Manual) 7.0 % (0.0-7.3) 10/04/21 04:44 Eosinophils % (Manual) 0 % (0.0-4.3) 10/04/21 04:44 Basophils % (Manual) 0 % (0.0-1.8) 10/04/21 04:44 Metamyelocytes % 0 % 10/04/21 04:44 Myelocytes % 2.0 % 10/04/21 04:44 Promyelocytes % 1.0 % 10/04/21 04:44 Blast Cells % 0 % 10/04/21 04:44 Nucleated RBC % Not Reportable 10/04/21 04:44 Seg Neutrophils # 14.0 K/mm3 (1.8-7.7) H 09/28/21 04:55 Seg Neutrophils # Man 21.1 K/mm3 (1.8-7.7) H 10/04/21 04:44 Band Neutrophils # 1.3 K/mm3 10/04/21 04:44 Lymphocytes # (Manual) 1.3 K/mm3 (1.2-5.4) 10/04/21 04:44 Abs React Lymphs (Man) 0.0 K/mm3 10/04/21 04:44 Monocytes # (Manual) 1.8 K/mm3 (0.0-0.8) H 10/04/21 04:44 Eosinophils # (Manual) 0.0 K/mm3 (0.0-0.4) 10/04/21 04:44 Basophils # (Manual) 0.0 K/mm3 (0.0-0.1) 10/04/21 04:44 Metamyelocytes # 0.0 K/mm3 10/04/21 04:44 Myelocytes # 0.5 K/mm3 10/04/21 04:44 Promyelocytes # 0.3 K/mm3 10/04/21 04:44 Blast Cells # 0.0 K/mm3 10/04/21 04:44 Pathologist Review 09/24/21 14:58 WBC Morphology Not Reportable 10/04/21 04:44 Hypersegmented Neuts Not Reportable 10/04/21 04:44 Hyposegmented Neuts Not Reportable 10/04/21 04:44 Hypogranular Neuts Not Reportable 10/04/21 04:44 Smudge Cells Not Reportable 10/04/21 04:44 Toxic Granulation Not Reportable 10/04/21 04:44 Toxic Vacuolation Not Reportable 10/04/21 04:44 Dohle Bodies Not Reportable 10/04/21 04:44 Pelger-Huet Anomaly Not Reportable 10/04/21 04:44 Marlene Rods Not Reportable 10/04/21 04:44 Platelet Estimate Consistent w auto 10/04/21 04:44 Clumped Platelets Not Reportable 10/04/21 04:44 Plt Clumps, EDTA Not Reportable 10/04/21 04:44 Large Platelets Few 10/04/21 04:44 Giant Platelets Not Reportable 10/04/21 04:44 Platelet Satelliting Not Reportable 10/04/21 04:44 Plt Morphology Comment Not Reportable 10/04/21 04:44 RBC Morphology Not Reportable 10/04/21 04:44 Dimorphic RBCs Not Reportable 10/04/21 04:44 Polychromasia Not Reportable 10/04/21 04:44 Hypochromasia 1+ 10/04/21 04:44 Poikilocytosis Not Reportable 10/04/21 04:44 Anisocytosis Not Reportable 10/04/21 04:44 Microcytosis Not Reportable 10/04/21 04:44 Macrocytosis Not Reportable 10/04/21 04:44 Spherocytes Not Reportable 10/04/21 04:44 Pappenheimer Bodies Not Reportable 10/04/21 04:44 Sickle Cells Not Reportable 10/04/21 04:44 Target Cells Not Reportable 10/04/21 04:44 Tear Drop Cells Not Reportable 10/04/21 04:44 Ovalocytes Not Reportable 10/04/21 04:44 Helmet Cells Not Reportable 10/04/21 04:44 Navas-Dunellen Bodies Not Reportable 10/04/21 04:44 Austin Rings Not Reportable 10/04/21 04:44 Herman Cells Not Reportable 10/04/21 04:44 Bite Cells Not Reportable 10/04/21 04:44 Crenated Cell Not Reportable 10/04/21 04:44 Elliptocytes Not Reportable 10/04/21 04:44 Acanthocytes (Spur) Not Reportable 10/04/21 04:44 Rouleaux Not Reportable 10/04/21 04:44 Hemoglobin C Crystals Not Reportable 10/04/21 04:44 Schistocytes Not Reportable 10/04/21 04:44 Malaria parasites Not Reportable 10/04/21 04:44 Flaco Bodies Not Reportable 10/04/21 04:44 Hem Pathologist Commnt No 10/04/21 04:44 Sodium 135 mmol/L (137-145) L 10/04/21 04:44 Potassium 3.4 mmol/L (3.6-5.0) L 10/04/21 04:44 Chloride 103.1 mmol/L (98-107) 10/04/21 04:44 Carbon Dioxide 21 mmol/L (22-30) L 10/04/21 04:44 Anion Gap 14 mmol/L 10/04/21 04:44 BUN 28 mg/dL (7-17) H 10/04/21 04:44 Creatinine 2.0 mg/dL (0.6-1.2) H 10/04/21 04:44 Estimated GFR 35 ml/min 10/04/21 04:44 BUN/Creatinine Ratio 14 % 10/04/21 04:44 Glucose 171 mg/dL (65-100) H 10/04/21 04:44 POC Glucose 174 mg/dL (70-105) H 10/04/21 05:25 Lactic Acid 1.00 mmol/L (0.7-2.0) 09/24/21 21:54 Calcium 6.7 mg/dL (8.4-10.2) L 10/04/21 04:44 Phosphorus 1.30 mg/dL (2.5-4.5) L D 10/04/21 04:44 Magnesium 2.40 mg/dL (1.7-2.3) H 10/04/21 04:44 Total Bilirubin < 0.20 mg/dL (0.1-1.2) 10/03/21 04:55 AST 31 units/L (5-40) 10/03/21 04:55 ALT 9 units/L (7-56) 10/03/21 04:55 Alkaline Phosphatase 44 units/L (35-129) 10/03/21 04:55 Total Protein 4.2 g/dL (6.3-8.2) L 10/03/21 04:55 Albumin 1.6 g/dL (3.9-5) L 10/03/21 04:55 Albumin/Globulin Ratio 0.6 % 10/03/21 04:55 Urine Color Yellow (Yellow) 09/24/21 14:49 Urine Turbidity Slightly-cloudy (Clear) 09/24/21 14:49 Urine pH 6.0 (5.0-7.0) 09/24/21 14:49 Ur Specific Bradford 1.017 (1.003-1.030) 09/24/21 14:49 Urine Protein 30 mg/dl mg/dL (Negative) 09/24/21 14:49 Urine Glucose (UA) Neg mg/dL (Negative) 09/24/21 14:49 Urine Ketones Neg mg/dL (Negative) 09/24/21 14:49 Urine Blood Neg (Negative) 09/24/21 14:49 Urine Nitrite Neg (Negative) 09/24/21 14:49 Ur Reducing Substances Not Reportable 09/24/21 14:49 Urine Bilirubin Neg (Negative) 09/24/21 14:49 Urine Ictotest Not Reportable 09/24/21 14:49 Urine Urobilinogen < 2.0 mg/dL (<2.0) 09/24/21 14:49 Ur Leukocyte Esterase Neg (Negative) 09/24/21 14:49 Urine WBC (Auto) 4.0 /HPF (0.0-6.0) 09/24/21 14:49 Urine RBC (Auto) 2.0 /HPF (0.0-6.0) 09/24/21 14:49 U Epithel Cells (Auto) 18.0 /HPF (0-13.0) H 09/24/21 14:49 Urine Mucus Few /HPF 09/24/21 14:49 Urine HCG, Qual Negative (Negative) 09/24/21 14:49 Blood Type A POSITIVE 10/01/21 10:45 Antibody Screen Negative 10/01/21 10:45 Crossmatch See Detail 10/01/21 10:45 Microbiology: Microbiology 09/30/21 Unknown Alex Drain Wound Culture - Preliminary Enterococcus Faecium Doss/IV: Voiding Method Indwelling Catheter Active Medications - Current Medications Current Medications: Generic Name Dose Route Start Last Admin Trade Name Freq PRN Reason Stop Dose Admin Albuterol 2.5 mg 09/24/21 18:07 Albuterol 2.5 Mg/3 Ml Nebu IH Q4HRT PRN Shortness Of Breath Dextrose 0 ml 10/03/21 12:37 Dextrose 10% *Hypoglycemia IV PRN PRN Hypoglycemia Hydromorphone HCl 1 mg 10/03/21 14:00 10/04/21 08:46 Hydromorphone 1 Mg/1 Ml Inj IV 1 mg Q3H PRN Administration Pain , Severe (7-10) Metronidazole 500 mg in 100 mls @ 100 mls/hr 10/02/21 16:00 10/04/21 07:13 Flagyl 500 Mg/100 Ml IV 100 mls/hr Q8H JAZ Administration Protocol Lactated Ringer's 1,000 mls @ 175 mls/hr 10/02/21 13:00 10/03/21 15:13 Lactated Ringers IV 125 mls/hr DIRECT JAZ Administration Amino Acids/Electrolytes/Dextrose 2,400 mls @ 100 mls/hr 10/03/21 20:00 10/03/21 21:37 Tpn Adult IV 10/04/21 19:59 100 mls/hr DAILY@1999 JAZ Administration Protocol Potassium Phosphate 15 mmol/ 255 mls @ 63 mls/hr 10/04/21 09:00 Sodium Chloride IV 10/04/21 13:02 ONCE ONE Sodium Chloride 500 mls @ 0 mls/hr 10/04/21 08:09 Nacl 0.9% 500 Ml IV 10/05/21 08:08 ONCE NR As Directed Daptomycin 700 mg/ Sodium 100 mls @ 200 mls/hr 10/04/21 12:00 Chloride IV Q24HR [facility] Protocol Insulin Human Regular 0 units 10/03/21 13:00 10/04/21 06:43 Insulin Regular, Human 100 Units/1 Ml SUB-Q 2 units Q6H JAZ Administration Protocol Labetalol HCl 10 mg 10/01/21 08:31 10/01/21 10:02 Labetalol 20 Mg/4 Ml Inj IV 10 mg Q6H PRN Administration Hypertension Morphine Sulfate 3 mg 10/03/21 14:00 10/04/21 07:13 Morphine 4 Mg/1 Ml Inj IV 3 mg Q6H JAZ Administration Naloxone HCl 0.1 mg 10/03/21 14:00 Naloxone 0.4 Mg/1 Ml Inj IV Q2MIN PRN Res Rate </= 8 or 02 SAT < 92% Ondansetron HCl 4 mg 09/24/21 18:07 10/03/21 23:28 Ondansetron 4 Mg/2 Ml Inj IV 4 mg Q8H PRN Administration Nausea And Vomiting Phenol 1 spray 10/02/21 13:00 10/03/21 10:23 Phenol 1.4% 177 Ml Bottle MM 1 spray PRN PRN Administration Sore Throat Scopolamine 1 each 10/04/21 10:00 Scopolamine Transdermal Patch 72 Hr TD Q3D JAZ Sodium Chloride 10 ml 09/24/21 22:00 10/03/21 23:35 Sodium Chloride 0.9% 10 Ml Flush Syringe IV 10 ml BID JAZ Administration Sodium Chloride 10 ml 09/24/21 18:07 09/25/21 08:34 Sodium Chloride 0.9% 10 Ml Flush Syringe IV 10 ml PRN PRN Administration LINE FLUSH Nutrition/Malnutrition Assess - Dietary Evaluation Nutrition/Malnutrition Findings: Nutrition Notes Start: 09/25/21 15:31 Freq: Status: Active Protocol: Document 10/03/21 13:07 RS (Rec: 10/03/21 13:32 RS [id number]) Nutrition Notes Initial or Follow up Reassessment Current Diagnosis Sepsis Other Pertinent Diagnosis Diverticulitis w/ abscess, s/p L hemicolectomy, perforated appendicitis Current Diet Clinimix at 80mL/hr Labs/Tests BUN: 22 Cr: 1.7 GLU: 145 Ca: 6.4 Albumin: 1.6 cCa: 8.3 M.4 Phos: 2.5 H/H: 6.3/19.8 Na/K+/C02/Cl: WNL Pertinent Medications reviewed Height 5 ft 7 in Weight 90 kg Gilbert Body Weight (kg) 61.36 BMI 31.1 Weight change and time frame RICHARD UBW lynda AdBW: 75.7kg Weight Status Obese Subjective/Other Information Day 1 PPN. Pt recieved Clinimix 80mL/hr yesterday. Saline was decreased to 50ml/ hr. Pt tolerated total IV of 130mL/hr. Will increase rate to 100cc/hr for PPN. MD consulted for Malnutrition d/t Albumin of 1.6. Low trending Albumin most likely related to bowel inflammation/perforaion /recent surgery. Pt does not have central line placed, so increasing total protein composition of PN formula innappropriate at this time. Percent of energy/protein needs met: 54%/74% Burn Absent Trauma Absent GI Symptoms Nausea Current % PO Negligible Minimum of two criteria No physical signs of malnutrition Energy Intake (severe) < or equal to 50% Estimated Energy Requirement > or equal to 5 days #1 Nutrition Diagnosis Altered GI function Diagnosis Progress(for reassessment Continues documentation) Is patient on ventilator? No Is Patient Ambulatory and/or Out of Bed Yes [facility] [ [id number] [id number]] Kcal/Kg value to use for calculation 20 Approximate Energy Requirements Using 1800 kcal/Kg Calculation Used for Recommendations Kcal/kg Additional Notes Protein: 91-114g/day (Surgery 1.2-1.5g/kg AdBW/day) Fluid needs: 1mL per kcal or per MD Nutrition Intervention Nutrition Support: Start PPN at 100mL/hr with: 3.3% AA 8% Dextrose Osmolarity: 845 Na: 60 meq K+: 79 meq Ca:0 meq M meq Phos: 19 mmol Cl/Co2: 25%/75% MVI Thiamine Kcal 966 Protein (gm) 100 Carbohydrates (gm) 190 Fat (gm) 0 Fluid (mL) 2,400 Fiber (gm) 0 Goal #1 PPN will help meet pt's nutritional needs as best as possible Goal #2 Wt loss/Wt maintenance Follow-Up By: 10/04/21 Additional Comments F/U for Mg & Phos in AM.
--- NOTE | 2021-10-04 11:29 | Consultation ---
History of Present Illness - Reason for Consult Consult date: 10/04/21 - History of Present Illness new to our service hematuria 31 YO Female with Obesity presented to ED---Patient reports "I'm hurting". Patient states that she has experienced abdominal pain, lower back pain, nausea, and multiple episodes of vomiting over the past 1 day. Patient transported to [facility] via private vehicle for further care and evaluation of the aforementioned symptoms. The patient was seen and evaluated in the emergency department. All lab and imaging studies reviewed. Patient underwent CT scan of the abdomen and pelvis and was found to have acute diverticulitis complicated by sepsis. Patient admitted to medical floor and initiated on sepsis protocol. Surgery team consulted in ED. Patient denies fever, chills, chest pain, palpitation, productive cough, skin rash, recent ill contacts, ingestion of food/water from new or different sources, or known exposure to COVID-19. No prior admission for review. No medication listed at time of admission for reconciliation. status post laparoscopic converted to open left hemicolectomy with appendectomy for perforated appendicitis with fistulization to sigmoid colon this admission (Dr. Huddleston) pt with Hematuria ---concern for ureteral injury per Dr. Huddleston CTAP )09-30-21)--normal gu tract abd - clean dressing urine appears concentrated A/P gross hematuria - improved ivp cystogram Past History Past Medical History: other (See HPI) Past Surgical History: No surgical history, Other (Reviewed) Social history: single. denies: smoking, alcohol abuse, prescription drug abuse Family history: hypertension Medications and Allergies Allergies Allergy/AdvReac Type Severity Reaction Status Date / Time No Known Allergies Allergy Verified 09/24/21 12:21 Home Medications Medication Instructions Recorded Confirmed Last Taken Type No Known Home Medications [No 09/27/21 09/27/21 Unknown History Reported Home Medications] Active Meds: Active Medications Albuterol (Albuterol 2.5 Mg/3 Ml Nebu) 2.5 mg IH Q4HRT PRN PRN Reason: Shortness Of Breath Dextrose (Dextrose 10% *Hypoglycemia) 0 ml IV PRN PRN PRN Reason: Hypoglycemia Hydromorphone HCl (Hydromorphone 1 Mg/1 Ml Inj) 1 mg IV Q3H PRN PRN Reason: Pain , Severe (7-10) Last Admin: 10/04/21 08:46 Dose: 1 mg Metronidazole (Flagyl 500 Mg/100 Ml) 500 mg in 100 mls @ 100 mls/hr IV Q8H JAZ; Protocol Last Admin: 10/04/21 07:13 Dose: 100 mls/hr Lactated Ringer's (Lactated Ringers) 1,000 mls @ 175 mls/hr IV DIRECT JAZ Last Admin: 10/03/21 15:13 Dose: 125 mls/hr Amino Acids/Electrolytes/Dextrose (Tpn Adult) 2,400 mls @ 100 mls/hr IV DAILY@2000 JAZ; Protocol Stop: 10/04/21 19:59 Last Admin: 10/03/21 21:37 Dose: 100 mls/hr Potassium Phosphate 15 mmol/ (Sodium Chloride) 255 mls @ 63 mls/hr IV ONCE ONE Stop: 10/04/21 13:02 Sodium Chloride (Nacl 0.9% 500 Ml) 500 mls @ 0 mls/hr IV ONCE NR Stop: 10/05/21 08:08 Daptomycin 700 mg/ Sodium (Chloride) 100 mls @ 200 mls/hr IV Q24HR [facility]; Protocol Insulin Human Regular (Insulin Regular, Human 100 Units/1 Ml) 0 units SUB-Q Q6H [facility]; Protocol Last Admin: 10/04/21 06:43 Dose: 2 units Labetalol HCl (Labetalol 20 Mg/4 Ml Inj) 10 mg IV Q6H PRN PRN Reason: Hypertension Last Admin: 10/01/21 10:02 Dose: 10 mg Morphine Sulfate (Morphine 4 Mg/1 Ml Inj) 3 mg IV Q6H JAZ Last Admin: 10/04/21 07:13 Dose: 3 mg Naloxone HCl (Naloxone 0.4 Mg/1 Ml Inj) 0.1 mg IV Q2MIN PRN PRN Reason: Res Rate </= 8 or 02 SAT < 92% Ondansetron HCl (Ondansetron 4 Mg/2 Ml Inj) 4 mg IV Q8H PRN PRN Reason: Nausea And Vomiting Last Admin: 10/03/21 23:28 Dose: 4 mg Phenol (Phenol 1.4% 177 Ml Bottle) 1 spray MM PRN PRN PRN Reason: Sore Throat Last Admin: 10/03/21 10:23 Dose: 1 spray Scopolamine (Scopolamine Transdermal Patch 72 Hr) 1 each TD Q3D JAZ Sodium Chloride (Sodium Chloride 0.9% 10 Ml Flush Syringe) 10 ml IV BID JAZ Last Admin: 10/03/21 23:35 Dose: 10 ml Sodium Chloride (Sodium Chloride 0.9% 10 Ml Flush Syringe) 10 ml IV PRN PRN PRN Reason: LINE FLUSH Last Admin: 09/25/21 08:34 Dose: 10 ml Exam - Constitutional Vitals: Temp Pulse Resp BP Pulse Ox 98.5 F 100 H 16 130/75 100 10/04/21 10:13 10/04/21 10:13 10/04/21 10:13 10/04/21 10:13 10/04/21 10:13 Results - Labs CBC & Chem 7: 10/06/21 05:27 10/06/21 05:27 Labs: Abnormal lab results 10/01/21 10/03/21 10/03/21 Range/Units 10:45 11:49 17:06 WBC (4.5-11.0) K/mm3 RBC (3.65-5.03) M/mm3 Hgb (10.1-14.3) gm/dl Hct (30.3-42.9) % RDW (13.2-15.2) % Plt Count (140-440) K/mm3 Seg Neuts % (Manual) (40.0-70.0) % Lymphocytes % (Manual) (13.4-35.0) % Seg Neutrophils # Man (1.8-7.7) K/mm3 Monocytes # (Manual) (0.0-0.8) K/mm3 Sodium (137-145) mmol/L Potassium (3.6-5.0) mmol/L Carbon Dioxide (22-30) mmol/L BUN (7-17) mg/dL Creatinine (0.6-1.2) mg/dL Glucose (65-100) mg/dL POC Glucose 171 H 174 H (70-105) mg/dL Calcium (8.4-10.2) mg/dL Phosphorus (2.5-4.5) mg/dL Magnesium (1.7-2.3) mg/dL Crossmatch See Detail 10/03/21 10/04/21 10/04/21 Range/Units 23:31 04:44 04:44 WBC 26.4 H (4.5-11.0) K/mm3 RBC 2.33 L (3.65-5.03) M/mm3 Hgb 6.6 L (10.1-14.3) gm/dl Hct 19.4 L* (30.3-42.9) % RDW 16.1 H (13.2-15.2) % Plt Count 602 H (140-440) K/mm3 Seg Neuts % (Manual) 80.0 H (40.0-70.0) % Lymphocytes % (Manual) 5.0 L (13.4-35.0) % Seg Neutrophils # Man 21.1 H (1.8-7.7) K/mm3 Monocytes # (Manual) 1.8 H (0.0-0.8) K/mm3 Sodium 135 L (137-145) mmol/L Potassium 3.4 L (3.6-5.0) mmol/L Carbon Dioxide 21 L (22-30) mmol/L BUN 28 H (7-17) mg/dL Creatinine 2.0 H (0.6-1.2) mg/dL Glucose 171 H (65-100) mg/dL POC Glucose 179 H (70-105) mg/dL Calcium 6.7 L (8.4-10.2) mg/dL Phosphorus 1.30 L D (2.5-4.5) mg/dL Magnesium 2.40 H (1.7-2.3) mg/dL Crossmatch 10/04/21 Range/Units 05:25 WBC (4.5-11.0) K/mm3 RBC (3.65-5.03) M/mm3 Hgb (10.1-14.3) gm/dl Hct (30.3-42.9) % RDW (13.2-15.2) % Plt Count (140-440) K/mm3 Seg Neuts % (Manual) (40.0-70.0) % Lymphocytes % (Manual) (13.4-35.0) % Seg Neutrophils # Man (1.8-7.7) K/mm3 Monocytes # (Manual) (0.0-0.8) K/mm3 Sodium (137-145) mmol/L Potassium (3.6-5.0) mmol/L Carbon Dioxide (22-30) mmol/L BUN (7-17) mg/dL Creatinine (0.6-1.2) mg/dL Glucose (65-100) mg/dL POC Glucose 174 H (70-105) mg/dL Calcium (8.4-10.2) mg/dL Phosphorus (2.5-4.5) mg/dL Magnesium (1.7-2.3) mg/dL Crossmatch
[2021-10-04] MEDS: ONDANSETRON 4 MG/2 ML INJ IV PRN (12:17)
[2021-10-04] MEDS: SCOPOLAMINE TRANSDERMAL PATCH 72 HR TD SCH (12:18)
[2021-10-04] MEDS: CALC GLUCONATE 1GM/NS 100 ML 1 GM/100 ML BAG IV SCH (13:19)
--- NOTE | 2021-10-04 14:21 | Cat Scan Report ---
CT ABDOMEN AND PELVIS WITH AND WITHOUT CONTRAST: HISTORY: Elevated creatinine, evaluate ureters for injury/extravasation/obstruction COMPARISON: 09/30/2021 TECHNIQUE: CT images of the abdomen was obtained before and following administration of intravenous c ontrast. Further, excretory phase abdominal and pelvic CT imaging obtained per CT Urogram protocol. All CT scans at this location are performed using CT dose reduction for ALARA by means of automated exposure control CONTRAST: 60 ml of Omnipaque 350 FINDINGS: CT ABDOMEN: Lung Bases: Small bilateral pleural effusions have increased slightly. Liver: No significant abnormality. Biliary: No significant abnormality. Vicarious excretion of contrast agent into the gallbladder is no jarrett. Spleen: No significant abnormality. Unenlarged. Pancreas: No significant abnormality. Adrenals: Stable right adrenal lesion. Normal left adrenal gland. Right kidney: There are 1 or 2 punctate calyceal stones in the mid right kidney. There is otherwise n ormal enhancement and excretion of contrast in the right kidney and collecting system. The right uret er is normal course and caliber on the delayed CT urogram images. Left kidney: There are 2 punctate calyceal stones in the inferior left kidney. Mild left hydronephros is has developed. The left ureter is dilated down to the pelvic brim where it is no longer seen secon moni to recent surgical changes in the left lower quadrant. No convincing left ureteral stone is dete cted. There is no IV contrast within the left collecting system and left ureter on the delayed CT uro gram images. Evaluation of the distal left ureter is limited although no obvious obstructing lesion o r extravasation is demonstrated. Lymphatics: No lymphadenopathy. Vasculature: No significant abnormality. Bowel/Peritoneum: Recent surgical changes are noted in the left lower quadrant. There is no evidence for bowel obstruction. A nasogastric tube and a pelvic drain are in position. There is small pelvic a scites but no encapsulated fluid collection is detected. CT PELVIS: : The bladder is decompressed with a Doss catheter and grossly unremarkable. Stable uterine fibroi d disease. Osseous Structures: No significant abnormality. Additional Findings: None IMPRESSION: Mild left hydronephrosis has developed since the previous examination. No obvious obstructing lesion in the left ureter is appreciated. The delayed CT urogram images demonstrate no IV contrast within th e left collecting system. This limits evaluation of the distal left ureter. The obstruction appears t o be near the level of recent surgical changes in the left lower quadrant. There is no obvious left u reteral injury but the left collecting system is incompletely evaluated on this exam. There are a few scattered tiny bilateral renal stones. The bladder is decompressed and unremarkable. The right renal collecting system is normal. Signer Name: Jon Ferguson Jr, MD Signed: 10/04/2021 2:17 PM Workstation Name: [id number]
[2021-10-04] MEDS: diphenhydrAMINE 50 MG/ML VIAL IV PRN ×2 (15:54→21:16)
--- NOTE | 2021-10-04 16:40 | Consultation ---
History of Present Illness - Reason for Consult Consult date: 10/04/21 acute renal failure Requesting physician: ANYI PARDO - History of Present Illness This is a 31 yo F with past medical history of nephrolithiasis, obesity, who initially presented to ER with abdominal pain, associated with nausea, vomiting. CT A/P with IV contrast showed evidence of acute diverticulitis, course was complicated by sepsis. patient underwent washout of pericolonic abscesses on 09/26 and laparoscopic converted to open left hemicolectomy with appendectomy for perforated appendicitis with fistulization to sigmoid colon. Patient was initially treated with levaquin/metronidazol, after wound culture from 09/30 returned positive for VRE levaquin was switched to daptomycin. patient also developed significant anemia requiring multiple PRBC transfusions and required TPN for nutritional support. Labs showed rising BUN/Cr at 28/2.0mg/dl from admission Cr around 0.5-0.7mg/dl for which renal consult is requested. Pt received CT A/P with IV contrast on 09/24, 09/29 and on 09/30. Past History Past Medical History: other (See HPI) Past Surgical History: No surgical history, Other (Reviewed) Social history: single. denies: smoking, alcohol abuse, prescription drug abuse Family history: hypertension Medications and Allergies Allergies Allergy/AdvReac Type Severity Reaction Status Date / Time No Known Allergies Allergy Verified 09/24/21 12:21 Home Medications Medication Instructions Recorded Confirmed Last Taken Type No Known Home Medications [No 09/27/21 09/27/21 Unknown History Reported Home Medications] Active Meds: Active Medications Albuterol (Albuterol 2.5 Mg/3 Ml Nebu) 2.5 mg IH Q4HRT PRN PRN Reason: Shortness Of Breath Dextrose (Dextrose 10% *Hypoglycemia) 0 ml IV PRN PRN PRN Reason: Hypoglycemia Diphenhydramine HCl (Diphenhydramine 50 Mg/Ml Vial) 25 mg IV Q6H PRN PRN Reason: Itching Last Admin: 10/04/21 15:54 Dose: 25 mg Hydromorphone HCl (Hydromorphone 1 Mg/1 Ml Inj) 1 mg IV Q3H PRN PRN Reason: Pain , Severe (7-10) Last Admin: 10/04/21 15:05 Dose: 1 mg Metronidazole (Flagyl 500 Mg/100 Ml) 500 mg in 100 mls @ 100 mls/hr IV Q8H JAZ; Protocol Last Admin: 10/04/21 07:13 Dose: 100 mls/hr Lactated Ringer's (Lactated Ringers) 1,000 mls @ 175 mls/hr IV DIRECT JAZ Last Admin: 10/03/21 15:13 Dose: 125 mls/hr Amino Acids/Electrolytes/Dextrose (Tpn Adult) 2,400 mls @ 100 mls/hr IV RAFITA Y@1999 [facility]; Protocol Stop: 10/04/21 19:59 Last Admin: 10/03/21 21:37 Dose: 100 mls/hr Sodium Chloride (Nacl 0.9% 500 Ml) 500 mls @ 0 mls/hr IV ONCE NR Stop: 10/05/21 08:08 Daptomycin 700 mg/ Sodium (Chloride) 100 mls @ 200 mls/hr IV Q24HR [facility]; Protocol Last Admin: 10/04/21 14:07 Dose: 200 mls/hr Amino Acids/Electrolytes/Dextrose (Tpn Adult) 2,400 mls @ 100 mls/hr IV DAILY@1999 [facility]; Protocol Stop: 10/05/21 19:59 Insulin Human Regular (Insulin Regular, Human 100 Units/1 Ml) 0 units SUB-Q Q6H [facility]; Protocol Last Admin: 10/04/21 12:17 Dose: 2 units Labetalol HCl (Labetalol 20 Mg/4 Ml Inj) 10 mg IV Q6H PRN PRN Reason: Hypertension Last Admin: 10/01/21 10:02 Dose: 10 mg Morphine Sulfate (Morphine 4 Mg/1 Ml Inj) 3 mg IV Q6H JAZ Last Admin: 10/04/21 07:13 Dose: 3 mg Naloxone HCl (Naloxone 0.4 Mg/1 Ml Inj) 0.1 mg IV Q2MIN PRN PRN Reason: Res Rate </= 8 or 02 SAT < 92% Ondansetron HCl (Ondansetron 4 Mg/2 Ml Inj) 4 mg IV Q8H PRN PRN Reason: Nausea And Vomiting Last Admin: 10/04/21 12:17 Dose: 4 mg Phenol (Phenol 1.4% 177 Ml Bottle) 1 spray MM PRN PRN PRN Reason: Sore Throat Last Admin: 02/27/22 10:23 Dose: 1 spray Scopolamine (Scopolamine Transdermal Patch 72 Hr) 1 each TD Q3D [facility] Last Admin: 10/04/21 12:18 Dose: 1 each Sodium Chloride (Sodium Chloride 0.9% 10 Ml Flush Syringe) 10 ml IV BID [facility] Last Admin: 10/04/21 12:03 Dose: Not Given Sodium Chloride (Sodium Chloride 0.9% 10 Ml Flush Syringe) 10 ml IV PRN PRN PRN Reason: LINE FLUSH Last Admin: 09/25/21 08:34 Dose: 10 ml Review of Systems All systems: negative Constitutional: fatigue, weakness, malaise, lethargy Cardiovascular: edema Exam - Vital Signs Vital signs: Vital Signs Temp Pulse Resp BP Pulse Ox 98.0 F 118 H 18 109/71 99 09/24/21 12:20 09/24/21 12:20 09/24/21 12:20 09/24/21 12:20 09/24/21 12:20 - General Appearance General appearance: well-developed, well-nourished, appears stated age EENT: ATNC, PERRL, mucous membranes moist Neck: Present: neck supple Respiratory: Clear to Ascultation Heart: regular, S1S2 Gastrointestinal: Present: normoactive bowel sounds Integumentary: no rash, other (dependent edema throughout ) Neurologic: no focal deficit, alert and oriented x3, strength 5/5, CN 3-12 intact Psychiatric: mood/affect appropriate, cooperative Results - Lab Results 10/04/21 04:44 10/04/21 04:44 Most recent lab results Calcium 6.7 mg/dL (8.4-10.2) L 10/04/21 04:44 Phosphorus 1.30 mg/dL (2.5-4.5) L D 10/04/21 04:44 Magnesium 2.40 mg/dL (1.7-2.3) H 10/04/21 04:44 Assessment and Plan - Patient Problems (1) Acute renal failure Current Visit: Yes Status: Acute Plan to address problem: Acute kidney injury likely 2/2 pre-renal azotemia with superimposed contrast induced nephropathy/ATN after repeated IV contrast exposure. Suspect intravascular volume depletion/third spacing in the setting of hypoalbuminemia, will obtain UA, urine lytes, urine protein/cr ratio. cont transfusion with 2PRBC, along with TPN/gentle IV fluids. Will add albumin support if hypoalbuminemia persists and renal function continues to decline. patient remains non-oliguric currently, no urgent indication for renal replacement therapy at present. Cont supportive care for BRYANNA/ATN, avoid further IV contrast, nephrotoxins, NSAIDs, maintain MAP > 65mmhg. CT A/P from today reviewed, which showed mild L hydronephrosis without obvious obstructing lesion/injury in the left ureter (2) Sepsis Current Visit: Yes Status: Acute Plan to address problem: wound culture showed VRE, pt was initiated on daptomycin today, also continued on metronidazole. please ensure that the ABXs are dosed for current eGFR ~35mls/min. (3) Appendicitis with perforation Current Visit: Yes Status: Acute Plan to address problem: laparoscopic converted to open left hemicolectomy with appendectomy (4) Hypoalbuminemia due to protein-calorie malnutrition Current Visit: Yes Status: Acute Plan to address problem: cont TPN. If worsening third spacing noted with worsening hypoalbuminemia, will add albumin support (5) Anemia Current Visit: Yes Status: Acute Plan to address problem: Transfuse prn to target Hb > 7 (6) Hypokalemia Current Visit: Yes Status: Acute Plan to address problem: K supplementation ongoing via TPN
--- NOTE | 2021-10-04 18:21 | Progress Note ---
Assessment and Plan Postop day #3 status post laparoscopic converted to open left hemicolectomy with appendectomy for perforated appendicitis with fistulization to sigmoid colon. Patient had one febrile episode and stable with decreasing tachycardia. Expect some degree of postoperative ileus will await for return of bowel function. Concerned for possible ureter injury given complicated anatomy and pathology with increase in creatinine. Urology consulted and ordered additional studies. Post operative anemia will check post transfusion h/h. ID consulted changed abx due to sensitivities of abdominal fluid specimen. Will continue to follow closely. Answered all questions of the patient and her sister who was present at bedside earlier today. Subjective Date of service: 10/04/21 Narrative: Pt continues to complain of generalized pain. She is being transfused 2 units of packed red blood cells. Patient had a CT cystogram which showed nonvisualization of her left urinary collecting system. Patient continues to make urine. Objective Vital Signs - 12hr 10/04/21 10/04/21 10/04/21 07:25 09:46 09:57 Temperature 99.0 F 98.5 F Pulse Rate 101 H 100 H Respiratory 16 16 Rate Blood Pressure 130/69 130/75 Blood Pressure [Left] O2 Sat by Pulse 97 100 100 Oximetry 10/04/21 10/04/21 10/04/21 10:12 10:13 10:42 Temperature 97.5 F L 98.5 F 98.6 F Pulse Rate 96 H 100 H 99 H Respiratory 16 16 16 Rate Blood Pressure 131/74 137/75 Blood Pressure 130/75 [Left] O2 Sat by Pulse 100 100 100 Oximetry 10/04/21 10/04/21 16:44 16:59 Temperature 99.0 F 98.2 F Pulse Rate 97 H 91 H Respiratory 16 16 Rate Blood Pressure 139/78 Blood Pressure [Left] O2 Sat by Pulse 100 100 Oximetry - General physical appearance well developed, moderate distress, moderate pain - ENT no hearing loss - Respiratory normal expansion, normal respiratory effort - Abdomen soft, other (generalized tenderness to palpation. Incision c/d/i. YURIDIA drain serous with purulent debris. NGT with dark gastric drainage.) - Genitourinary other (dark urine in brantley bag) - Labs 10/04/21 04:44 10/04/21 04:44 Diabetes panel 10/04/21 Range/Units 04:44 Sodium 135 L (137-145) mmol/L Potassium 3.4 L (3.6-5.0) mmol/L Chloride 103.1 (98-107) mmol/L Carbon Dioxide 21 L (22-30) mmol/L BUN 28 H (7-17) mg/dL Creatinine 2.0 H (0.6-1.2) mg/dL Glucose 171 H (65-100) mg/dL Calcium 6.7 L (8.4-10.2) mg/dL Calcium panel 10/04/21 Range/Units 04:44 Calcium 6.7 L (8.4-10.2) mg/dL Phosphorus 1.30 L D (2.5-4.5) mg/dL Pituitary panel 10/04/21 Range/Units 04:44 Sodium 135 L (137-145) mmol/L Potassium 3.4 L (3.6-5.0) mmol/L Chloride 103.1 (98-107) mmol/L Carbon Dioxide 21 L (22-30) mmol/L BUN 28 H (7-17) mg/dL Creatinine 2.0 H (0.6-1.2) mg/dL Glucose 171 H (65-100) mg/dL Calcium 6.7 L (8.4-10.2) mg/dL Adrenal panel 10/04/21 Range/Units 04:44 Sodium 135 L (137-145) mmol/L Potassium 3.4 L (3.6-5.0) mmol/L Chloride 103.1 (98-107) mmol/L Carbon Dioxide 21 L (22-30) mmol/L BUN 28 H (7-17) mg/dL Creatinine 2.0 H (0.6-1.2) mg/dL Glucose 171 H (65-100) mg/dL Calcium 6.7 L (8.4-10.2) mg/dL
[2021-10-04] MEDS: PANTOPRAZOLE 40 MG INJ IV SCH (18:35)
[2021-10-04] MEDS ORDERED: TOTAL PARENTERAL NUTRITION 2,400 ML IV SCH (20:00)
[2021-10-04 21:04] LABS: Hematocrit 25.1 % (30.3-42.9); Hemoglobin 8.5 gm/dl (10.1-14.3)
[2021-10-05] MEDS: HYDROmorphone 1 MG/1 ML INJ IV PRN ×5 (01:16→23:31)
[2021-10-05] MEDS: metroNIDAZOLE/NS 500 MG/100 ML 500 MG/100 ML BAG IV SCH ×3 (01:20→16:25)
[2021-10-05] MEDS: INSULIN REGULAR, HUMAN 100 UNITS/1 ML SUB-Q SCH ×5 (01:30→18:18)
[2021-10-05] MEDS: MORPHINE 4 MG/1 ML INJ IV SCH ×4 (04:57→20:39)
[2021-10-05 05:24] LABS: Hematocrit 25.5 % (30.3-42.9); Hemoglobin 8.4 gm/dl (10.1-14.3); Mean Corpuscular HGB Conc 33 % (30-34); Mean Corpuscular Volume 85 fl (79-97); Platelet Count 644 K/mm3 (140-440); Red Blood Count 3.02 M/mm3 (3.65-5.03); Red Cell Distribution Width 16.2 % (13.2-15.2)
[2021-10-05 05:47] LABS: Albumin 1.8 g/dL (3.9-5); Calcium 7.6 mg/dL (8.4-10.2); INR 1.31 (0.87-1.13)
[2021-10-05 06:32] LABS: Total Cells Counted 100
[2021-10-05 06:33] LABS: Basophils % (Manual) 0 % (0.0-1.8); Eosinophils % (Manual) 0 % (0.0-4.3); Large Platelets Few; Platelet Clumps Few
[2021-10-05 06:35] LABS: Anisocytosis 1+; Hypochromasia Few; Platelet Estimate Consistent w Auto
[2021-10-05] MEDS ORDERED: POTASSIUM PHOSPHATE 30 MMOL in SODIUM CHLORIDE 0.9% 500 ML 500 ML IV ONE (09:00)
--- NOTE | 2021-10-05 10:28 | Progress Note ---
Assessment and Plan - Patient Problems (1) Acute renal failure Current Visit: Yes Status: Acute Plan to address problem: Acute kidney injury likely 2/2 pre-renal azotemia with superimposed contrast induced nephropathy/ATN after repeated IV contrast exposure. Suspect intravascular volume depletion/third spacing in the setting of hypoalbuminemia, will obtain UA, urine lytes, urine protein/cr ratio. Patient with significant edema/third spacing, added albumin support 12.5g q8hr x 2 days. Renal parameters reviewed, not significantly changed from yesterday, patient remains non- oliguric currently with UOP > 2-3L/day, likely in recovery phase of ATN. Cont supportive care for BRYANNA/ATN, avoid further IV contrast, nephrotoxins, NSAIDs, maintain MAP > 65mmhg. Discussed with patient and family at bedside regarding renal care plan (2) Sepsis Current Visit: Yes Status: Acute Plan to address problem: wound culture showed VRE, pt was initiated on daptomycin, also continued on metronidazole. please ensure that the ABXs are dosed for current eGFR ~35mls/min. (3) Appendicitis with perforation Current Visit: Yes Status: Acute Plan to address problem: laparoscopic converted to open left hemicolectomy with appendectomy (4) Hypoalbuminemia due to protein-calorie malnutrition Current Visit: Yes Status: Acute Plan to address problem: cont TPN. add albumin support 12.5g q8hrs x 2 days (5) Anemia Current Visit: Yes Status: Acute Plan to address problem: Transfuse with PRBCs prn to target Hb > 7 (6) Hypokalemia Current Visit: Yes Status: Acute Plan to address problem: K supplementation ongoing via TPN (7) Hypophosphatemia Current Visit: Yes Status: Acute Plan to address problem: PO4 supplementation with Kphos ongoing Subjective Date of service: 10/05/21 Principal diagnosis: BRYANNA Interval history: Patient is awake, alert, oriented x 3, denies fever, chills, n/v/d. Received 2 PRBC transfusion with improved Hb, remains on NGT with intermittent suction, currently on TPN. Urine output is excellent >2.5L/day Objective - Vital Signs Vital signs: Vital Signs - 12hr 10/04/21 10/05/21 10/05/21 22:25 05:06 07:10 Temperature 99.4 F 98.9 F Pulse Rate 95 H 91 H Respiratory 18 20 Rate Blood Pressure 131/76 Blood Pressure 135/79 [Left] O2 Sat by Pulse 100 99 94 Oximetry - General Appearance General appearance: well-developed, appears stated age, obese EENT: ATNC, PERRL, mucous membranes moist Neck: no JVD Respiratory: Present: Decreased Breath Sounds Cardiology: regular, S1S2 Gastrointestinal: normoactive bowel sounds Integumentary: no rash, other (++ edema b/l LE ) Neurologic: no focal deficit, alert and oriented x3, strength 5/5, CN 3-12 intact Psychiatric: mood/affect appropriate, cooperative - Lab 10/05/21 04:40 10/05/21 04:40 Most recent lab results Calcium 7.6 mg/dL (8.4-10.2) L 10/05/21 04:40 Phosphorus 1.90 mg/dL (2.5-4.5) L D 10/05/21 04:40 Magnesium 2.20 mg/dL (1.7-2.3) 10/05/21 04:40 Medications & Allergies - Medications Allergies/Adverse Reactions: Allergies No Known Allergies Allergy (Verified 09/24/21 12:21) Home Medications: Home Medications Medication Instructions Recorded Confirmed Last Taken Type No Known Home Medications [No 09/27/21 09/27/21 Unknown History Reported Home Medications] Active Medications: Generic Name Dose Route Start Last Admin Trade Name Freq PRN Reason Stop Dose Admin Albumin Human 12.5 gm 10/05/21 14:00 Albumin Human 25% (12.5 Gm/50 Ml) Inj IV 10/07/21 13:59 Q8HR JAZ Albuterol 2.5 mg 09/24/21 18:07 Albuterol 2.5 Mg/3 Ml Nebu IH Q4HRT PRN Shortness Of Breath Dextrose 0 ml 10/03/21 12:37 Dextrose 10% *Hypoglycemia IV PRN PRN Hypoglycemia Diphenhydramine HCl 25 mg 10/04/21 15:14 10/04/21 21:16 Diphenhydramine 50 Mg/Ml Vial IV 25 mg Q6H PRN Administration Itching Hydromorphone HCl 1 mg 10/03/21 14:00 10/05/21 08:24 Hydromorphone 1 Mg/1 Ml Inj IV 1 mg Q3H PRN Administration Pain , Severe (7-10) Metronidazole 500 mg in 100 mls @ 100 mls/hr 10/02/21 16:00 10/05/21 08:26 Flagyl 500 Mg/100 Ml IV 100 mls/hr Q8H [facility] Administration Protocol Lactated Ringer's 1,000 mls @ 75 mls/hr 10/02/21 13:00 10/03/21 15:13 Lactated Ringers IV 125 mls/hr DIRECT JAZ Administration Daptomycin 700 mg/ Sodium 100 mls @ 200 mls/hr 10/04/21 12:00 10/04/21 14:07 Chloride IV 200 mls/hr Q24HR [facility] Administration Protocol Amino Acids/Electrolytes/Dextrose 2,400 mls @ 100 mls/hr 10/04/21 20:00 10/04/21 21:24 Tpn Adult IV 10/05/21 19:59 100 mls/hr DAILY@2000 [facility] Administration Protocol Potassium Phosphate 30 mmol/ 510 mls @ 85 mls/hr 10/05/21 09:00 10/05/21 09:24 Sodium Chloride IV 10/05/21 14:59 85 mls/hr ONCE ONE Administration Insulin Human Regular 0 units 10/03/21 13:00 10/05/21 09:56 Insulin Regular, Human 100 Units/1 Ml SUB-Q Not Given Q6H [facility] Protocol Labetalol HCl 10 mg 10/01/21 08:31 10/01/21 10:02 Labetalol 20 Mg/4 Ml Inj IV 10 mg Q6H PRN Administration Hypertension Morphine Sulfate 3 mg 10/03/21 14:00 10/05/21 09:54 Morphine 4 Mg/1 Ml Inj IV Not Given Q6H [facility] Naloxone HCl 0.1 mg 10/03/21 14:00 Naloxone 0.4 Mg/1 Ml Inj IV Q2MIN PRN Res Rate </= 8 or 02 SAT < 92% Ondansetron HCl 4 mg 09/24/21 18:07 10/04/21 12:17 Ondansetron 4 Mg/2 Ml Inj IV 4 mg Q8H PRN Administration Nausea And Vomiting Pantoprazole Sodium 40 mg 10/04/21 19:00 10/04/21 18:35 Pantoprazole 40 Mg Inj IV 40 mg QDAY JAZ Administration Phenol 1 spray 10/02/21 13:00 10/03/21 10:23 Phenol 1.4% 177 Ml Bottle MM 1 spray PRN PRN Administration Sore Throat Scopolamine 1 each 10/04/21 10:00 10/04/21 12:18 Scopolamine Transdermal Patch 72 Hr TD 1 each Q3D JAZ Administration Sodium Chloride 10 ml 09/24/21 22:00 10/04/21 21:15 Sodium Chloride 0.9% 10 Ml Flush Syringe IV 10 ml BID JAZ Administration Sodium Chloride 10 ml 09/24/21 18:07 09/25/21 08:34 Sodium Chloride 0.9% 10 Ml Flush Syringe IV 10 ml PRN PRN Administration LINE FLUSH
--- NOTE | 2021-10-05 10:53 | Progress Note ---
Assessment and Plan Cultures: Blood culture no growth so far Wound culture VRE A/P: 31-year-old female past medical history obesity, nephrolithiasis now with: #Acute sepsis: Present with leukocytosis and tachycardia. Secondary to intra- abdominal infection #Pericolonic abscesses with appendiceal rupture and fistulization: Status post washout of abscesses, cultures now with VRE. #BRYANNA: Renally dose medications #Obesity Recs: -Continue daptomycin 8mg/kg q24h, higher dosing for VRE -Continue metronidazole. -Monitor white count with change in antibiotics. If no improvement may need further scans to assess for repeat abscess formation Thank you for the consult, we will continue to follow. Josefina Perry MD [facility] ([facility] O: [phone] F: [phone] Subjective Date of service: 10/05/21 Principal diagnosis: BRYANNA Interval history: Afebrile, white count still elevated but mildly improved today. Imaging personally reviewed: CTAP: left hydronephrosis Objective - Exam Narrative Exam: Physical Exam: Constitutional: Alert, cooperative. No acute distress Head, Ears, Nose: Normocephalic, atraumatic. External ears, nose normal Eyes: Conjunctivae/corneas clear. No icterus. No ptosis. Neck: Supple, no meningeal signs Oral: dentition fair, no thrush Cardiovascular: S1, S2 normal. Respiratory: Good air entry, clear to auscultation bilaterally GI: Appropriately tender postoperatively, YURIDIA drain in place Musculoskeletal: No pedal edema, no cyanosis. Skin: No rash or abscess Hem/Lymphatic: No palpable cervical or supraclavicular nodes. No lymphangitis Psych: Mood ok. Affect normal Neurological: Awake, alert, oriented. No gross abnormality - Constitutional Vitals: Vital Signs Temp Pulse Resp BP Pulse Ox 98.9 F 91 H 20 135/79 94 10/05/21 05:06 10/05/21 05:06 10/05/21 05:06 10/05/21 05:06 10/05/21 07:10 Temperature -Last 24 Hours Temperature 98.9 F Temperature 99.4 F Temperature 98.7 F Temperature 98.5 F Temperature 98.2 F Temperature 99.0 F - Labs CBC & Chem 7: 10/05/21 04:40 10/05/21 04:40 Labs: Abnormal lab results 10/01/21 10/04/21 10/04/21 Range/Units 10:45 12:01 13:30 WBC (4.5-11.0) K/mm3 RBC (3.65-5.03) M/mm3 Hgb (10.1-14.3) gm/dl Hct (30.3-42.9) % RDW (13.2-15.2) % Plt Count (140-440) K/mm3 Seg Neuts % (Manual) (40.0-70.0) % Lymphocytes % (Manual) (13.4-35.0) % Seg Neutrophils # Man (1.8-7.7) K/mm3 PT (12.2-14.9) Sec. INR (0.87-1.13) Sodium (137-145) mmol/L BUN (7-17) mg/dL Creatinine (0.6-1.2) mg/dL Glucose (65-100) mg/dL POC Glucose 172 H (70-105) mg/dL Calcium (8.4-10.2) mg/dL Phosphorus (2.5-4.5) mg/dL Total Protein (6.3-8.2) g/dL Albumin (3.9-5) g/dL Crossmatch See Detail See Detail 10/04/21 10/04/21 10/04/21 Range/Units 16:47 20:28 22:23 WBC (4.5-11.0) K/mm3 RBC (3.65-5.03) M/mm3 Hgb 8.5 L (10.1-14.3) gm/dl Hct 25.1 L (30.3-42.9) % RDW (13.2-15.2) % Plt Count (140-440) K/mm3 Seg Neuts % (Manual) (40.0-70.0) % Lymphocytes % (Manual) (13.4-35.0) % Seg Neutrophils # Man (1.8-7.7) K/mm3 PT (12.2-14.9) Sec. INR (0.87-1.13) Sodium (137-145) mmol/L BUN (7-17) mg/dL Creatinine (0.6-1.2) mg/dL Glucose (65-100) mg/dL POC Glucose 135 H 152 H (70-105) mg/dL Calcium (8.4-10.2) mg/dL Phosphorus (2.5-4.5) mg/dL Total Protein (6.3-8.2) g/dL Albumin (3.9-5) g/dL Crossmatch 10/05/21 10/05/21 10/05/21 Range/Units 04:40 04:40 04:40 WBC 24.7 H (4.5-11.0) K/mm3 RBC 3.02 L (3.65-5.03) M/mm3 Hgb 8.4 L (10.1-14.3) gm/dl Hct 25.5 L (30.3-42.9) % RDW 16.2 H (13.2-15.2) % Plt Count 644 H (140-440) K/mm3 Seg Neuts % (Manual) 91.0 H (40.0-70.0) % Lymphocytes % (Manual) 7.0 L (13.4-35.0) % Seg Neutrophils # Man 22.5 H (1.8-7.7) K/mm3 PT 17.8 H (12.2-14.9) Sec. INR 1.31 H (0.87-1.13) Sodium 135 L (137-145) mmol/L BUN 29 H (7-17) mg/dL Creatinine 2.1 H (0.6-1.2) mg/dL Glucose 156 H (65-100) mg/dL POC Glucose (70-105) mg/dL Calcium 7.6 L (8.4-10.2) mg/dL Phosphorus 1.90 L D (2.5-4.5) mg/dL Total Protein 5.2 L D (6.3-8.2) g/dL Albumin 1.8 L (3.9-5) g/dL Crossmatch 10/05/21 Range/Units 05:08 WBC (4.5-11.0) K/mm3 RBC (3.65-5.03) M/mm3 Hgb (10.1-14.3) gm/dl Hct (30.3-42.9) % RDW (13.2-15.2) % Plt Count (140-440) K/mm3 Seg Neuts % (Manual) (40.0-70.0) % Lymphocytes % (Manual) (13.4-35.0) % Seg Neutrophils # Man (1.8-7.7) K/mm3 PT (12.2-14.9) Sec. INR (0.87-1.13) Sodium (137-145) mmol/L BUN (7-17) mg/dL Creatinine (0.6-1.2) mg/dL Glucose (65-100) mg/dL POC Glucose 156 H (70-105) mg/dL Calcium (8.4-10.2) mg/dL Phosphorus (2.5-4.5) mg/dL Total Protein (6.3-8.2) g/dL Albumin (3.9-5) g/dL Crossmatch
[2021-10-05] MEDS: ONDANSETRON 4 MG/2 ML INJ IV PRN (11:39)
[2021-10-05] MEDS: diphenhydrAMINE 50 MG/ML VIAL IV PRN ×2 (12:39→23:33)
[2021-10-05] MEDS: ALBUMIN HUMAN 25% (12.5 GM/50 ML) INJ IV SCH ×2 (14:04→23:34)
[2021-10-05] MEDS: LACTATED RINGERS 1,000 ML IV SCH (14:48)
--- NOTE | 2021-10-05 15:35 | Progress Note ---
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 General surgery consulted; appreciate recs. -Continue daptomycin and flagyl per ID recommendations -Continue TPN/PPN per general surgery; NGT in place and clamped CT barium enema (09/30/2021) revealing possible appendiceal perforation with possible fistula to sigmoid. Appendix was not visualized on prior imaging, and there was no sign of appendiceal involvement during the patient's previous operation with general surgery earlier this week. Returned to the OR on 09/30/2021 for laparoscopic examination of abdomen in the setting of recent diverticular abscess status post drainage with ALEX drain. During the procedure yesterday, laparoscopic approach was converted to open left hemicolectomy, appendectomy, and partial omentectomy. Continue to monitor - General surgery following, assistance appreciated #Acute hypoxic respiratory failure- resolved - etiology: Likely secondary to recent surgical procedures versus volume overload - baseline oxygen requirements: None - currently on RA - Continue protocol: continue pulse oximetry, wean oxygen as tolerated, ordered incentive spirometry and educated patient on how to use it and its importance. - continue to monitor #Acute Kidney Injury -secondary to vasomotor nephropathy vs contrast induced Creatinine 2.1 -Nephrology consulted, assistance appreciated Continue IV fluid resuscitation. Continue to monitor with daily BMP. #Acute blood loss anemia s/p 3 units of pRBCs since admission, Hgb stable at 8.4 - likely 2/2 to surgical procedures Monitor with daily H&H. Transfuse if hemoglobin less than 7 or patient becomes symptomatic. #Moderate protein caloric malnutrition Albumin 1.6 Consulting nutrition; appreciate recs #Volume depletion -likely 2/2 to poor PO intake due to abdominal pain and vomiting -continue IVFs, can discontinue after patient resumes PO intake #Hypokalemia #Hypophosphatemia -will continue to replete and monitor #Advance care planning -Disease education conducted, care plan discussed, diagnoses discussed, prognosis discussed, patient is full code. Patient and family at bedside knowledges understanding and agreement with care plan Time: +30 minutes. Disposition Plan: continue medical management History Interval history: No acute events overnight. Patient continues to have abdominal pain that is relieved with PRN medications. Has nausea as well. No other complaints at this time. Hospitalist Physical - Physical exam Narrative exam: GENERAL: Well-developed well-nourished. In no acute distress. HEENT: NGT in place. CHEST/LUNGS: CTAB on room air HEART/CARDIOVASCULAR: RRR. No murmur, rubs or gallops appreciated. ABDOMEN: ALEX drain in place. Surgical julia intact, no drainage noted. +BS. ND. NEURO: No focal motor deficit. Follows all commands. MUSCULOSKELETAL: No joint effusion EXTREMITIES: No cyanosis, clubbing or edema. PSYCH: Cooperative. - Constitutional Vitals: Temp Pulse Resp BP Pulse Ox 98.1 F 95 H 16 150/86 100 10/05/21 12:22 10/05/21 12:22 10/05/21 12:22 10/05/21 12:22 10/05/21 12:22 General appearance: Present: severe distress, well-nourished, obese, other (Asleep at bedside) Results - Labs CBC & Chem 7: 10/05/21 04:40 10/05/21 04:40 Labs: Laboratory Last Values WBC 24.7 K/mm3 (4.5-11.0) H 10/05/21 04:40 RBC 3.02 M/mm3 (3.65-5.03) L 10/05/21 04:40 Hgb 8.4 gm/dl (10.1-14.3) L 10/05/21 04:40 Hct 25.5 % (30.3-42.9) L 10/05/21 04:40 MCV 85 fl (79-97) 10/05/21 04:40 MCH 28 pg (28-32) 10/05/21 04:40 MCHC 33 % (30-34) 10/05/21 04:40 RDW 16.2 % (13.2-15.2) H 10/05/21 04:40 Plt Count 644 K/mm3 (140-440) H 10/05/21 04:40 Nelson % (Auto) 5.9 % (0.0-7.3) 09/28/21 04:55 Eos % (Auto) 0.4 % (0.0-4.3) 09/28/21 04:55 Nelson # (Auto) 0.9 K/mm3 (0.0-0.8) H 09/28/21 04:55 Eos # (Auto) 0.1 K/mm3 (0.0-0.4) 09/28/21 04:55 Baso # (Auto) 0.0 K/mm3 (0.0-0.1) 09/28/21 04:55 Add Manual Diff Complete 10/05/21 04:40 Total Counted 100 10/05/21 04:40 Seg Neutrophils % Teletype Or [place] Keyboard Operator 10/03/21 04:55 Seg Neuts % (Manual) 91.0 % (40.0-70.0) H 10/05/21 04:40 Band Neutrophils % 0 % 10/05/21 04:40 Lymphocytes % (Manual) 7.0 % (13.4-35.0) L 10/05/21 04:40 Reactive Lymphs % (Man) 0 % 10/05/21 04:40 Monocytes % (Manual) 2.0 % (0.0-7.3) 10/05/21 04:40 Eosinophils % (Manual) 0 % (0.0-4.3) 10/05/21 04:40 Basophils % (Manual) 0 % (0.0-1.8) 10/05/21 04:40 Metamyelocytes % 0 % 10/05/21 04:40 Myelocytes % 0 % 10/05/21 04:40 Promyelocytes % 0 % 10/05/21 04:40 Blast Cells % 0 % 10/05/21 04:40 Nucleated RBC % Not Reportable 10/05/21 04:40 Seg Neutrophils # 14.0 K/mm3 (1.8-7.7) H 09/28/21 04:55 Seg Neutrophils # Man 22.5 K/mm3 (1.8-7.7) H 10/05/21 04:40 Band Neutrophils # 0.0 K/mm3 10/05/21 04:40 Lymphocytes # (Manual) 1.7 K/mm3 (1.2-5.4) 10/05/21 04:40 Abs React Lymphs (Man) 0.0 K/mm3 10/05/21 04:40 Monocytes # (Manual) 0.5 K/mm3 (0.0-0.8) 10/05/21 04:40 Eosinophils # (Manual) 0.0 K/mm3 (0.0-0.4) 10/05/21 04:40 Basophils # (Manual) 0.0 K/mm3 (0.0-0.1) 10/05/21 04:40 Metamyelocytes # 0.0 K/mm3 10/05/21 04:40 Myelocytes # 0.0 K/mm3 10/05/21 04:40 Promyelocytes # 0.0 K/mm3 10/05/21 04:40 Blast Cells # 0.0 K/mm3 10/05/21 04:40 Pathologist Review 09/24/21 14:58 WBC Morphology Not Reportable 10/05/21 04:40 Hypersegmented Neuts Not Reportable 10/05/21 04:40 Hyposegmented Neuts Not Reportable 10/05/21 04:40 Hypogranular Neuts Not Reportable 10/05/21 04:40 Smudge Cells Not Reportable 10/05/21 04:40 Toxic Granulation Not Reportable 10/05/21 04:40 Toxic Vacuolation Not Reportable 10/05/21 04:40 Dohle Bodies Not Reportable 10/05/21 04:40 Pelger-Huet Anomaly Not Reportable 10/05/21 04:40 Marlene Rods Not Reportable 10/05/21 04:40 Platelet Estimate Consistent w auto 10/05/21 04:40 Clumped Platelets Few 10/05/21 04:40 Plt Clumps, EDTA Not Reportable 10/05/21 04:40 Large Platelets Few 10/05/21 04:40 Giant Platelets Not Reportable 10/05/21 04:40 Platelet Satelliting Not Reportable 10/05/21 04:40 Plt Morphology Comment Not Reportable 10/05/21 04:40 RBC Morphology Not Reportable 10/05/21 04:40 Dimorphic RBCs Not Reportable 10/05/21 04:40 Polychromasia Not Reportable 10/05/21 04:40 Hypochromasia Few 10/05/21 04:40 Poikilocytosis Not Reportable 10/05/21 04:40 Anisocytosis 1+ 10/05/21 04:40 Microcytosis Not Reportable 10/05/21 04:40 Macrocytosis Not Reportable 10/05/21 04:40 Spherocytes Not Reportable 10/05/21 04:40 Pappenheimer Bodies Not Reportable 10/05/21 04:40 Sickle Cells Not Reportable 10/05/21 04:40 Target Cells Not Reportable 10/05/21 04:40 Tear Drop Cells Not Reportable 10/05/21 04:40 Ovalocytes Not Reportable 10/05/21 04:40 Helmet Cells Not Reportable 10/05/21 04:40 Navas-Delway Bodies Not Reportable 10/05/21 04:40 Hamilton Rings Not Reportable 10/05/21 04:40 Anusha Cells Not Reportable 10/05/21 04:40 Bite Cells Not Reportable 10/05/21 04:40 Crenated Cell Not Reportable 10/05/21 04:40 Elliptocytes Not Reportable 10/05/21 04:40 Acanthocytes (Spur) Not Reportable 10/05/21 04:40 Rouleaux Not Reportable 10/05/21 04:40 Hemoglobin C Crystals Not Reportable 10/05/21 04:40 Schistocytes Not Reportable 10/05/21 04:40 Malaria parasites Not Reportable 10/05/21 04:40 Flaco Bodies Not Reportable 10/05/21 04:40 Hem Pathologist Commnt No 10/05/21 04:40 PT 17.8 Sec. (12.2-14.9) H 10/05/21 04:40 INR 1.31 (0.87-1.13) H 10/05/21 04:40 Sodium 135 mmol/L (137-145) L 10/05/21 04:40 Potassium 3.6 mmol/L (3.6-5.0) 10/05/21 04:40 Chloride 102.8 mmol/L (98-107) 10/05/21 04:40 Carbon Dioxide 23 mmol/L (22-30) 10/05/21 04:40 Anion Gap 13 mmol/L 10/05/21 04:40 BUN 29 mg/dL (7-17) H 10/05/21 04:40 Creatinine 2.1 mg/dL (0.6-1.2) H 10/05/21 04:40 Estimated GFR 33 ml/min 10/05/21 04:40 BUN/Creatinine Ratio 14 % 10/05/21 04:40 Glucose 156 mg/dL (65-100) H 10/05/21 04:40 POC Glucose 105 mg/dL (70-105) 10/05/21 12:21 Lactic Acid 1.00 mmol/L (0.7-2.0) 09/24/21 21:54 Calcium 7.6 mg/dL (8.4-10.2) L 10/05/21 04:40 Phosphorus 1.90 mg/dL (2.5-4.5) L D 10/05/21 04:40 Magnesium 2.20 mg/dL (1.7-2.3) 10/05/21 04:40 Total Bilirubin 0.50 mg/dL (0.1-1.2) 10/05/21 04:40 AST 31 units/L (5-40) 10/05/21 04:40 ALT 11 units/L (7-56) 10/05/21 04:40 Alkaline Phosphatase 78 units/L (35-129) 10/05/21 04:40 Total Protein 5.2 g/dL (6.3-8.2) L D 10/05/21 04:40 Albumin 1.8 g/dL (3.9-5) L 10/05/21 04:40 Albumin/Globulin Ratio 0.5 % 10/05/21 04:40 Urine Color Yellow (Yellow) 09/24/21 14:49 Urine Turbidity Slightly-cloudy (Clear) 09/24/21 14:49 Urine pH 6.0 (5.0-7.0) 09/24/21 14:49 Ur Specific [place] 1.017 (1.003-1.030) 09/24/21 14:49 Urine Protein 30 mg/dl mg/dL (Negative) 09/24/21 14:49 Urine Glucose (UA) Neg mg/dL (Negative) 09/24/21 14:49 Urine Ketones Neg mg/dL (Negative) 09/24/21 14:49 Urine Blood Neg (Negative) 09/24/21 14:49 Urine Nitrite Neg (Negative) 09/24/21 14:49 Ur Reducing Substances Not Reportable 09/24/21 14:49 Urine Bilirubin Neg (Negative) 09/24/21 14:49 Urine Ictotest Not Reportable 09/24/21 14:49 Urine Urobilinogen < 2.0 mg/dL (<2.0) 09/24/21 14:49 Ur Leukocyte Esterase Neg (Negative) 09/24/21 14:49 Urine WBC (Auto) 4.0 /HPF (0.0-6.0) 09/24/21 14:49 Urine RBC (Auto) 2.0 /HPF (0.0-6.0) 09/24/21 14:49 U Epithel Cells (Auto) 18.0 /HPF (0-13.0) H 09/24/21 14:49 Urine Mucus Few /HPF 09/24/21 14:49 Urine HCG, Qual Negative (Negative) 09/24/21 14:49 Blood Type A POSITIVE 10/04/21 13:30 Antibody Screen Negative 10/04/21 13:30 Crossmatch See Detail 10/04/21 13:30 Microbiology: Microbiology 09/30/21 Unknown Alex Drain Wound Culture - Preliminary Enterococcus Faecium Doss/IV: Voiding Method Indwelling Catheter Active Medications - Current Medications Current Medications: Generic Name Dose Route Start Last Admin Trade Name Freq PRN Reason Stop Dose Admin Albumin Human 12.5 gm 10/05/21 14:00 10/05/21 14:04 Albumin Human 25% (12.5 Gm/50 Ml) Inj IV 10/07/21 13:59 12.5 gm Q8HR JAZ Administration Albuterol 2.5 mg 09/24/21 18:07 Albuterol 2.5 Mg/3 Ml Nebu IH Q4HRT PRN Shortness Of Breath Dextrose 0 ml 10/03/21 12:37 Dextrose 10% *Hypoglycemia IV PRN PRN Hypoglycemia Diphenhydramine HCl 25 mg 10/04/21 15:14 10/05/21 12:39 Diphenhydramine 50 Mg/Ml Vial IV 25 mg Q6H PRN Administration Itching Hydromorphone HCl 1 mg 10/03/21 14:00 10/05/21 14:47 Hydromorphone 1 Mg/1 Ml Inj IV 1 mg Q3H PRN Administration Pain , Severe (7-10) Metronidazole 500 mg in 100 mls @ 100 mls/hr 10/02/21 16:00 10/05/21 08:26 Flagyl 500 Mg/100 Ml IV 100 mls/hr Q8H JAZ Administration Protocol Lactated Ringer's 1,000 mls @ 75 mls/hr 10/02/21 13:00 10/05/21 14:48 Lactated Ringers IV 125 mls/hr DIRECT JAZ Administration Daptomycin 700 mg/ Sodium 100 mls @ 200 mls/hr 10/04/21 12:00 10/05/21 12:05 Chloride IV 200 mls/hr Q24HR [facility] Administration Protocol Amino Acids/Electrolytes/Dextrose 2,400 mls @ 100 mls/hr 10/04/21 20:00 10/04/21 21:24 Tpn Adult IV 10/05/21 19:59 100 mls/hr DAILY@1999 [facility] Administration Protocol Amino Acids/Electrolytes/Dextrose 2,400 mls @ 100 mls/hr 10/05/21 20:00 Tpn Adult IV 10/06/21 19:59 DAILY@1999 [facility] Protocol Insulin Human Regular 0 units 10/03/21 13:00 10/05/21 14:05 Insulin Regular, Human 100 Units/1 Ml SUB-Q Not Given Q6H [facility] Protocol Labetalol HCl 10 mg 10/01/21 08:31 10/01/21 10:02 Labetalol 20 Mg/4 Ml Inj IV 10 mg Q6H PRN Administration Hypertension Morphine Sulfate 3 mg 10/03/21 14:00 10/05/21 09:54 Morphine 4 Mg/1 Ml Inj IV Not Given Q6H [facility] Naloxone HCl 0.1 mg 10/03/21 14:00 Naloxone 0.4 Mg/1 Ml Inj IV Q2MIN PRN Res Rate </= 8 or 02 SAT < 92% Ondansetron HCl 4 mg 09/24/21 18:07 10/05/21 11:39 Ondansetron 4 Mg/2 Ml Inj IV 4 mg Q8H PRN Administration Nausea And Vomiting Pantoprazole Sodium 40 mg 10/04/21 19:00 10/04/21 18:35 Pantoprazole 40 Mg Inj IV 40 mg QDAY [facility] Administration Phenol 1 spray 10/02/21 13:00 10/03/21 10:23 Phenol 1.4% 177 Ml Bottle MM 1 spray PRN PRN Administration Sore Throat Scopolamine 1 each 10/04/21 10:00 10/04/21 12:18 Scopolamine Transdermal Patch 72 Hr TD 1 each Q3D [facility] Administration Sodium Chloride 10 ml 09/24/21 22:00 10/05/21 13:20 Sodium Chloride 0.9% 10 Ml Flush Syringe IV Not Given BID JAZ Sodium Chloride 10 ml 09/24/21 18:07 09/25/21 08:34 Sodium Chloride 0.9% 10 Ml Flush Syringe IV 10 ml PRN PRN Administration LINE FLUSH Nutrition/Malnutrition Assess - Dietary Evaluation Nutrition/Malnutrition Findings: Nutrition Notes Start: 09/25/21 15:31 Freq: Status: Active Protocol: Document 10/05/21 10:16 BIN (Rec: 10/05/21 10:28 BIN [id number]) Nutrition Notes Initial or Follow up Reassessment Current Diagnosis Acute Kidney Injury,Sepsis, Malnutrition Other Pertinent Diagnosis s/p Diverticulitis, s/p Hemicolectomy/Appendectomy/ Partial Omentectomy. Current Diet PPN @ 100mL/hr Labs/Tests 10/05: Na 135, BUN 29, Crea 2. 1, Glu 156, Ca 7.6. Pertinent Medications 10/05: KPO4 30 mmol, others nutritionally unremarkable. Height 5 ft 7 in Weight 89.8 kg [place] Body Weight (kg) 61.36 BMI 31.0 Weight change and time frame No body weight changed reported. Weight Status Obese Subjective/Other Information RD consult for routine F/U on PPN. PPN continues as prescribed, well tolerated, according to RN notes. Some degfree of post-operative ileus is expected, according to Progress notes. RN notes 10/04: She is NPO but can have Ice chips PRN... IV Nutrition, PPN infusing at 100 cc/hr. Percent of energy/protein needs met: 55% Kcal; 93% AA. Burn Absent Trauma Absent GI Symptoms Nausea Food Allergy No Skin Integrity/Comment Surgical wound. Current % PO Other Minimum of two criteria No #1 Nutrition Diagnosis Altered GI function Diagnosis Progress(for reassessment Continues documentation) Is patient on ventilator? No Is Patient Ambulatory and/or Out of Bed Yes REE-([facility]-ambulatory/OOB) [ 0893.228 [id number]] Kcal/Kg value to use for calculation 20 Approximate Energy Requirements Using 1796 kcal/Kg Calculation Used for Recommendations Kcal/kg Additional Notes Protein: 1.2-1.5 g/Kg 91-114g/ day AdjBW. Fluids: 1 mL/Kcal, or as per MD. Nutrition Intervention Nutrition Support: Continue PPN @ 100mL/hr with: 3.5% AA 7.9% Dextrose Osmolarity: 883 Na: 60 mEq K: 100 mEq Ca:0 mEq M mEq Phos: 60 mmol Cl/Co2: 25%/75% MVI Thiamine Kcal 986 Protein (gm) 85 Carbohydrates (gm) 190 Fat (gm) 0 Fluid (mL) 2,400 Fiber (gm) 0 % RDI: 55% Kcal; 93% AA. Goal #1 Provide at least 75% of energy /protein needs through Parenteral Feeding during LOS. Goal #2 Maintain body weight within +/ -3% of admission body weight during LOS. Follow-Up By: 10/06/21 Additional Comments Continue monitoring PPN tolerance and BM. BMP, Phos, Mg labs ordered.
[2021-10-05] MEDS: PANTOPRAZOLE 40 MG INJ IV SCH (16:21)
--- NOTE | 2021-10-05 16:34 | Progress Note ---
Assessment and Plan Postop day #4 status post laparoscopic converted to open left hemicolectomy with appendectomy for perforated appendicitis with fistulization to sigmoid colon. Patient had one febrile episode and stable with decreasing tachycardia. Expect some degree of postoperative ileus will await for return of bowel function. Concerned for possible ureter injury given complicated anatomy and pathology with increase in creatinine. Urology consulted and ordered additional studies. Awaiting further recommendations. No active bleeding as H&H has been stable with appropriate equilibration after 2 units of blood yesterday. ID consulted changed abx -slight decrease in leukocytosis. Remains afebrile. Patient received midline today, will continue PPN and antibiotics. Will continue to follow closely. Subjective Date of service: 10/05/21 Narrative: No acute events overnight. No fever over the last 24 hours. Patient says that she is feeling somewhat better today compared to yesterday. Her mother stepfather in the room with her. She is not not passed any flatus as yet moore rubina she thinks that she feels some gas moving around. Objective Vital Signs - 12hr 10/05/21 10/05/21 10/05/21 05:06 07:10 12:22 Temperature 98.9 F 98.1 F Pulse Rate 91 H 95 H Respiratory 20 16 Rate Blood Pressure 150/86 Blood Pressure 135/79 [Left] O2 Sat by Pulse 99 94 100 Oximetry - General physical appearance well developed, no distress, moderate pain - Eyes PERRL - ENT no hearing loss - Respiratory normal expansion, normal respiratory effort - Abdomen soft, other (Incision clean dry and intact with no erythema. Appropriately tender to palpation. YURIDIA drain less purulent and more serous compared to yesterday. NG tube with minimal drainage) - Genitourinary other (Doss in place with dark urine) - Labs 10/05/21 04:40 10/05/21 04:40 Diabetes panel 10/05/21 Range/Units 04:40 Sodium 135 L (137-145) mmol/L Potassium 3.6 (3.6-5.0) mmol/L Chloride 102.8 (98-107) mmol/L Carbon Dioxide 23 (22-30) mmol/L BUN 29 H (7-17) mg/dL Creatinine 2.1 H (0.6-1.2) mg/dL Glucose 156 H (65-100) mg/dL Calcium 7.6 L (8.4-10.2) mg/dL AST 31 (5-40) units/L ALT 11 (7-56) units/L Alkaline Phosphatase 78 (35-129) units/L Total Protein 5.2 L D (6.3-8.2) g/dL Albumin 1.8 L (3.9-5) g/dL Calcium panel 10/05/21 Range/Units 04:40 Calcium 7.6 L (8.4-10.2) mg/dL Phosphorus 1.90 L D (2.5-4.5) mg/dL Albumin 1.8 L (3.9-5) g/dL Pituitary panel 10/05/21 Range/Units 04:40 Sodium 135 L (137-145) mmol/L Potassium 3.6 (3.6-5.0) mmol/L Chloride 102.8 (98-107) mmol/L Carbon Dioxide 23 (22-30) mmol/L BUN 29 H (7-17) mg/dL Creatinine 2.1 H (0.6-1.2) mg/dL Glucose 156 H (65-100) mg/dL Calcium 7.6 L (8.4-10.2) mg/dL Adrenal panel 10/05/21 Range/Units 04:40 Sodium 135 L (137-145) mmol/L Potassium 3.6 (3.6-5.0) mmol/L Chloride 102.8 (98-107) mmol/L Carbon Dioxide 23 (22-30) mmol/L BUN 29 H (7-17) mg/dL Creatinine 2.1 H (0.6-1.2) mg/dL Glucose 156 H (65-100) mg/dL Calcium 7.6 L (8.4-10.2) mg/dL Total Bilirubin 0.50 (0.1-1.2) mg/dL AST 31 (5-40) units/L ALT 11 (7-56) units/L Alkaline Phosphatase 78 (35-129) units/L Total Protein 5.2 L D (6.3-8.2) g/dL Albumin 1.8 L (3.9-5) g/dL
[2021-10-05] MEDS ORDERED: TOTAL PARENTERAL NUTRITION 2,400 ML IV SCH (20:00)
[2021-10-06] MEDS: LACTATED RINGERS 1,000 ML IV SCH ×2 (01:38→14:59)
[2021-10-06] MEDS: INSULIN REGULAR, HUMAN 100 UNITS/1 ML SUB-Q SCH ×4 (01:40→20:59)
[2021-10-06] MEDS: metroNIDAZOLE/NS 500 MG/100 ML 500 MG/100 ML BAG IV SCH ×3 (01:44→17:19)
[2021-10-06] MEDS: MORPHINE 4 MG/1 ML INJ IV SCH ×4 (05:09→23:00)
[2021-10-06 05:50] LABS: Hematocrit 23.9 % (30.3-42.9); Hemoglobin 7.8 gm/dl (10.1-14.3); Mean Corpuscular HGB Conc 33 % (30-34); Mean Corpuscular Volume 84 fl (79-97); Platelet Count 712 K/mm3 (140-440); Red Blood Count 2.84 M/mm3 (3.65-5.03); Red Cell Distribution Width 16.2 % (13.2-15.2)
[2021-10-06 06:08] LABS: Calcium 7.8 mg/dL (8.4-10.2)
[2021-10-06] MEDS: HYDROmorphone 1 MG/1 ML INJ IV PRN ×3 (07:47→19:51)
--- NOTE | 2021-10-06 08:06 | Progress Note ---
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 General surgery consulted; appreciate recs. -Continue daptomycin and flagyl per ID recommendations -Continue TPN/PPN per general surgery; NGT in place and clamped CT barium enema (09/30/2021) revealing possible appendiceal perforation with possible fistula to sigmoid. Appendix was not visualized on prior imaging, and there was no sign of appendiceal involvement during the patient's previous operation with general surgery earlier this week. Returned to the OR on 09/30/2021 for laparoscopic examination of abdomen in the setting of recent diverticular abscess status post drainage with YURIDIA drain. During the procedure yesterday, laparoscopic approach was converted to open left hemicolectomy, appendectomy, and partial omentectomy. Continue to monitor - General surgery following, assistance appreciated #Acute hypoxic respiratory failure- resolved - etiology: Likely secondary to recent surgical procedures versus volume overload - baseline oxygen requirements: None - currently on RA - Continue protocol: continue pulse oximetry, wean oxygen as tolerated, ordered incentive spirometry and educated patient on how to use it and its importance. - continue to monitor #Acute Kidney Injury-improving -secondary to vasomotor nephropathy vs contrast induced Creatinine 1.9 -Nephrology consulted, assistance appreciated Continue IV fluid resuscitation. Continue to monitor with daily BMP. #Acute blood loss anemia s/p 3 units of pRBCs since admission, Hgb stable - likely 2/2 to surgical procedures Monitor with daily H&H. Transfuse if hemoglobin less than 7 or patient becomes symptomatic. #Moderate protein caloric malnutrition Albumin 1.6 Consulting nutrition; appreciate recs #Volume depletion -likely 2/2 to poor PO intake due to abdominal pain and vomiting -continue IVFs, can discontinue after patient resumes PO intake #Hypokalemia #Hypophosphatemia -will continue to replete and monitor #Advance care planning -Disease education conducted, care plan discussed, diagnoses discussed, prognosis discussed, patient is full code. Patient and family at bedside knowledges understanding and agreement with care plan Time: +30 minutes. History Interval history: No acute events overnight. Patient continues to have abdominal pain that is relieved with PRN medications. Has nausea as well. No other complaints at this time. Hospitalist Physical - Physical exam Narrative exam: GENERAL: Well-developed well-nourished. In no acute distress. HEENT: NGT in place. CHEST/LUNGS: CTAB on room air HEART/CARDIOVASCULAR: RRR. No murmur, rubs or gallops appreciated. ABDOMEN: YURIDIA drain in place. Surgical julia intact, no drainage noted. +BS. ND. NEURO: No focal motor deficit. Follows all commands. MUSCULOSKELETAL: No joint effusion EXTREMITIES: No cyanosis, clubbing or edema. PSYCH: Cooperative. - Constitutional Vitals: Temp Pulse Resp BP Pulse Ox 99.4 F 97 H 20 154/88 97 10/05/21 16:08 10/05/21 16:08 10/05/21 22:00 10/05/21 16:08 10/06/21 07:42 General appearance: Present: severe distress, well-nourished, obese, other (Asleep at bedside) Results - Labs CBC & Chem 7: 10/06/21 05:27 10/06/21 05:27 Labs: Laboratory Last Values WBC 23.4 K/mm3 (4.5-11.0) H 10/06/21 05:27 RBC 2.84 M/mm3 (3.65-5.03) L 10/06/21 05:27 Hgb 7.8 gm/dl (10.1-14.3) L 10/06/21 05:27 Hct 23.9 % (30.3-42.9) L 10/06/21 05:27 MCV 84 fl (79-97) 10/06/21 05:27 MCH 28 pg (28-32) 10/06/21 05:27 MCHC 33 % (30-34) 10/06/21 05:27 RDW 16.2 % (13.2-15.2) H 10/06/21 05:27 Plt Count 712 K/mm3 (140-440) H 10/06/21 05:27 [place] % (Auto) 5.9 % (0.0-7.3) 09/28/21 04:55 Eos % (Auto) 0.4 % (0.0-4.3) 09/28/21 04:55 [place] # (Auto) 0.9 K/mm3 (0.0-0.8) H 09/28/21 04:55 Eos # (Auto) 0.1 K/mm3 (0.0-0.4) 09/28/21 04:55 Baso # (Auto) 0.0 K/mm3 (0.0-0.1) 09/28/21 04:55 Add Manual Diff Complete 10/05/21 04:40 Total Counted 100 10/05/21 04:40 Seg Neutrophils % Deputy Sheriff K9 Handler 10/03/21 04:55 Seg Neuts % (Manual) 91.0 % (40.0-70.0) H 10/05/21 04:40 Band Neutrophils % 0 % 10/05/21 04:40 Lymphocytes % (Manual) 7.0 % (13.4-35.0) L 10/05/21 04:40 Reactive Lymphs % (Man) 0 % 10/05/21 04:40 Monocytes % (Manual) 2.0 % (0.0-7.3) 10/05/21 04:40 Eosinophils % (Manual) 0 % (0.0-4.3) 10/05/21 04:40 Basophils % (Manual) 0 % (0.0-1.8) 10/05/21 04:40 Metamyelocytes % 0 % 10/05/21 04:40 Myelocytes % 0 % 10/05/21 04:40 Promyelocytes % 0 % 10/05/21 04:40 Blast Cells % 0 % 10/05/21 04:40 Nucleated RBC % Not Reportable 10/05/21 04:40 Seg Neutrophils # 14.0 K/mm3 (1.8-7.7) H 09/28/21 04:55 Seg Neutrophils # Man 22.5 K/mm3 (1.8-7.7) H 10/05/21 04:40 Band Neutrophils # 0.0 K/mm3 10/05/21 04:40 Lymphocytes # (Manual) 1.7 K/mm3 (1.2-5.4) 10/05/21 04:40 Abs React Lymphs (Man) 0.0 K/mm3 10/05/21 04:40 Monocytes # (Manual) 0.5 K/mm3 (0.0-0.8) 10/05/21 04:40 Eosinophils # (Manual) 0.0 K/mm3 (0.0-0.4) 10/05/21 04:40 Basophils # (Manual) 0.0 K/mm3 (0.0-0.1) 10/05/21 04:40 Metamyelocytes # 0.0 K/mm3 10/05/21 04:40 Myelocytes # 0.0 K/mm3 10/05/21 04:40 Promyelocytes # 0.0 K/mm3 10/05/21 04:40 Blast Cells # 0.0 K/mm3 10/05/21 04:40 Pathologist Review 09/24/21 14:58 WBC Morphology Not Reportable 10/05/21 04:40 Hypersegmented Neuts Not Reportable 10/05/21 04:40 Hyposegmented Neuts Not Reportable 10/05/21 04:40 Hypogranular Neuts Not Reportable 10/05/21 04:40 Smudge Cells Not Reportable 10/05/21 04:40 Toxic Granulation Not Reportable 10/05/21 04:40 Toxic Vacuolation Not Reportable 10/05/21 04:40 Dohle Bodies Not Reportable 10/05/21 04:40 Pelger-Huet Anomaly Not Reportable 10/05/21 04:40 Marlene Rods Not Reportable 10/05/21 04:40 Platelet Estimate Consistent w auto 10/05/21 04:40 Clumped Platelets Few 10/05/21 04:40 Plt Clumps, EDTA Not Reportable 10/05/21 04:40 Large Platelets Few 10/05/21 04:40 Giant Platelets Not Reportable 10/05/21 04:40 Platelet Satelliting Not Reportable 10/05/21 04:40 Plt Morphology Comment Not Reportable 10/05/21 04:40 RBC Morphology Not Reportable 10/05/21 04:40 Dimorphic RBCs Not Reportable 10/05/21 04:40 Polychromasia Not Reportable 10/05/21 04:40 Hypochromasia Few 10/05/21 04:40 Poikilocytosis Not Reportable 10/05/21 04:40 Anisocytosis 1+ 10/05/21 04:40 Microcytosis Not Reportable 10/05/21 04:40 Macrocytosis Not Reportable 10/05/21 04:40 Spherocytes Not Reportable 10/05/21 04:40 Pappenheimer Bodies Not Reportable 10/05/21 04:40 Sickle Cells Not Reportable 10/05/21 04:40 Target Cells Not Reportable 10/05/21 04:40 Tear Drop Cells Not Reportable 10/05/21 04:40 Ovalocytes Not Reportable 10/05/21 04:40 Helmet Cells Not Reportable 10/05/21 04:40 Navas-Patterson Bodies Not Reportable 10/05/21 04:40 [place] Rings Not Reportable 10/05/21 04:40 Anusha Cells Not Reportable 10/05/21 04:40 Bite Cells Not Reportable 10/05/21 04:40 Crenated Cell Not Reportable 10/05/21 04:40 Elliptocytes Not Reportable 10/05/21 04:40 Acanthocytes (Spur) Not Reportable 10/05/21 04:40 Rouleaux Not Reportable 10/05/21 04:40 Hemoglobin C Crystals Not Reportable 10/05/21 04:40 Schistocytes Not Reportable 10/05/21 04:40 Malaria parasites Not Reportable 10/05/21 04:40 Flaco Bodies Not Reportable 10/05/21 04:40 Hem Pathologist Commnt No 10/05/21 04:40 PT 17.8 Sec. (12.2-14.9) H 10/05/21 04:40 INR 1.31 (0.87-1.13) H 10/05/21 04:40 Sodium 134 mmol/L (137-145) L 10/06/21 05:27 Potassium 4.2 mmol/L (3.6-5.0) 10/06/21 05:27 Chloride 101.5 mmol/L (98-107) 10/06/21 05:27 Carbon Dioxide 20 mmol/L (22-30) L 10/06/21 05:27 Anion Gap 17 mmol/L 10/06/21 05:27 BUN 28 mg/dL (7-17) H 10/06/21 05:27 Creatinine 1.9 mg/dL (0.6-1.2) H 10/06/21 05:27 Estimated GFR 37 ml/min 10/06/21 05:27 BUN/Creatinine Ratio 15 % 10/06/21 05:27 Glucose 132 mg/dL (65-100) H 10/06/21 05:27 POC Glucose 132 mg/dL (70-105) H 10/06/21 04:27 Lactic Acid 1.00 mmol/L (0.7-2.0) 09/24/21 21:54 Calcium 7.8 mg/dL (8.4-10.2) L 10/06/21 05:27 Phosphorus 2.80 mg/dL (2.5-4.5) D 10/06/21 05:27 Magnesium 2.10 mg/dL (1.7-2.3) 10/06/21 05:27 Total Bilirubin 0.50 mg/dL (0.1-1.2) 10/05/21 04:40 AST 31 units/L (5-40) 10/05/21 04:40 ALT 11 units/L (7-56) 10/05/21 04:40 Alkaline Phosphatase 78 units/L (35-129) 10/05/21 04:40 Total Creatine Kinase 242 units/L (30-135) H 10/06/21 05:27 Total Protein 5.2 g/dL (6.3-8.2) L D 10/05/21 04:40 Albumin 1.8 g/dL (3.9-5) L 10/05/21 04:40 Albumin/Globulin Ratio 0.5 % 10/05/21 04:40 Urine Color Yellow (Yellow) 09/24/21 14:49 Urine Turbidity Slightly-cloudy (Clear) 09/24/21 14:49 Urine pH 6.0 (5.0-7.0) 09/24/21 14:49 Ur Specific [place] 1.017 (1.003-1.030) 09/24/21 14:49 Urine Protein 30 mg/dl mg/dL (Negative) 09/24/21 14:49 Urine Glucose (UA) Neg mg/dL (Negative) 09/24/21 14:49 Urine Ketones Neg mg/dL (Negative) 09/24/21 14:49 Urine Blood Neg (Negative) 09/24/21 14:49 Urine Nitrite Neg (Negative) 09/24/21 14:49 Ur Reducing Substances Not Reportable 09/24/21 14:49 Urine Bilirubin Neg (Negative) 09/24/21 14:49 Urine Ictotest Not Reportable 09/24/21 14:49 Urine Urobilinogen < 2.0 mg/dL (<2.0) 09/24/21 14:49 Ur Leukocyte Esterase Neg (Negative) 09/24/21 14:49 Urine WBC (Auto) 4.0 /HPF (0.0-6.0) 09/24/21 14:49 Urine RBC (Auto) 2.0 /HPF (0.0-6.0) 09/24/21 14:49 U Epithel Cells (Auto) 18.0 /HPF (0-13.0) H 09/24/21 14:49 Urine Mucus Few /HPF 09/24/21 14:49 Urine HCG, Qual Negative (Negative) 09/24/21 14:49 Blood Type A POSITIVE 10/04/21 13:30 Antibody Screen Negative 10/04/21 13:30 Crossmatch See Detail 10/04/21 13:30 Doss/IV: Voiding Method Indwelling Catheter Active Medications - Current Medications Current Medications: Generic Name Dose Route Start Last Admin Trade Name Freq PRN Reason Stop Dose Admin Albumin Human 12.5 gm 10/05/21 14:00 10/05/21 23:34 Albumin Human 25% (12.5 Gm/50 Ml) Inj IV 10/07/21 13:59 12.5 gm Q8HR JAZ Administration Albuterol 2.5 mg 09/24/21 18:07 Albuterol 2.5 Mg/3 Ml Nebu IH Q4HRT PRN Shortness Of Breath Dextrose 0 ml 10/03/21 12:37 Dextrose 10% *Hypoglycemia IV PRN PRN Hypoglycemia Diphenhydramine HCl 25 mg 10/04/21 15:14 10/05/21 23:33 Diphenhydramine 50 Mg/Ml Vial IV 25 mg Q6H PRN Administration Itching Hydromorphone HCl 1 mg 10/03/21 14:00 10/06/21 07:47 Hydromorphone 1 Mg/1 Ml Inj IV 1 mg Q3H PRN Administration Pain , Severe (7-10) Metronidazole 500 mg in 100 mls @ 100 mls/hr 10/02/21 16:00 10/06/21 04:47 Flagyl 500 Mg/100 Ml IV Infused Q8H JAZ Infusion Protocol Lactated Ringer's 1,000 mls @ 75 mls/hr 10/02/21 13:00 10/06/21 01:38 Lactated Ringers IV 125 mls/hr DIRECT JAZ Administration Daptomycin 700 mg/ Sodium 100 mls @ 200 mls/hr 10/04/21 12:00 10/05/21 12:05 Chloride IV 200 mls/hr Q24HR JAZ Administration Protocol Amino Acids/Electrolytes/Dextrose 2,400 mls @ 100 mls/hr 10/05/21 20:00 10/05/21 20:34 Tpn Adult IV 10/06/21 19:59 100 mls/hr DAILY@1999 [facility] Administration Protocol Insulin Human Regular 0 units 10/03/21 13:00 10/06/21 01:40 Insulin Regular, Human 100 Units/1 Ml SUB-Q Not Given Q6H [facility] Protocol Labetalol HCl 10 mg 10/01/21 08:31 10/01/21 10:02 Labetalol 20 Mg/4 Ml Inj IV 10 mg Q6H PRN Administration Hypertension Morphine Sulfate 3 mg 10/03/21 14:00 10/06/21 05:09 Morphine 4 Mg/1 Ml Inj IV 3 mg Q6H JAZ Administration Naloxone HCl 0.1 mg 10/03/21 14:00 Naloxone 0.4 Mg/1 Ml Inj IV Q2MIN PRN Res Rate </= 8 or 02 SAT < 92% Ondansetron HCl 4 mg 09/24/21 18:07 10/05/21 11:39 Ondansetron 4 Mg/2 Ml Inj IV 4 mg Q8H PRN Administration Nausea And Vomiting Pantoprazole Sodium 40 mg 10/04/21 19:00 10/05/21 16:21 Pantoprazole 40 Mg Inj IV Not Given QDAY JAZ Phenol 1 spray 10/02/21 13:00 10/03/21 10:23 Phenol 1.4% 177 Ml Bottle MM 1 spray PRN PRN Administration Sore Throat Scopolamine 1 each 10/04/21 10:00 10/04/21 12:18 Scopolamine Transdermal Patch 72 Hr TD 1 each Q3D JAZ Administration Sodium Chloride 10 ml 09/24/21 22:00 10/06/21 01:40 Sodium Chloride 0.9% 10 Ml Flush Syringe IV 10 ml BID JAZ Administration Sodium Chloride 10 ml 09/24/21 18:07 09/25/21 08:34 Sodium Chloride 0.9% 10 Ml Flush Syringe IV 10 ml PRN PRN Administration LINE FLUSH Nutrition/Malnutrition Assess - Dietary Evaluation Nutrition/Malnutrition Findings: Nutrition Notes Start: 09/25/21 15:31 Freq: Status: Active Protocol: Document 10/05/21 10:16 BIN (Rec: 10/05/21 10:28 BIN [id number]) Nutrition Notes Initial or Follow up Reassessment Current Diagnosis Acute Kidney Injury,Sepsis, Malnutrition Other Pertinent Diagnosis s/p Diverticulitis, s/p Hemicolectomy/Appendectomy/ Partial Omentectomy. Current Diet PPN @ 100mL/hr Labs/Tests 10/05: Na 135, BUN 29, Crea 2. 1, Glu 156, Ca 7.6. Pertinent Medications 10/05: KPO4 30 mmol, others nutritionally unremarkable. Height 5 ft 7 in Weight 89.8 kg [place] Body Weight (kg) 61.36 BMI 31.0 Weight change and time frame No body weight changed reported. Weight Status Obese Subjective/Other Information RD consult for routine F/U on PPN. PPN continues as prescribed, well tolerated, according to RN notes. Some degfree of post-operative ileus is expected, according to Progress notes. RN notes 10/04: She is NPO but can have Ice chips PRN... IV Nutrition, PPN infusing at 100 cc/hr. Percent of energy/protein needs met: 55% Kcal; 93% AA. Burn Absent Trauma Absent GI Symptoms Nausea Food Allergy No Skin Integrity/Comment Surgical wound. Current % PO Other Minimum of two criteria No #1 Nutrition Diagnosis Altered GI function Diagnosis Progress(for reassessment Continues documentation) Is patient on ventilator? No Is Patient Ambulatory and/or Out of Bed Yes REE-([facility]-ambulatory/OOB) [ 2132.819 [id number]] Kcal/Kg value to use for calculation 20 Approximate Energy Requirements Using 1796 kcal/Kg Calculation Used for Recommendations Kcal/kg Additional Notes Protein: 1.2-1.5 g/Kg 91-114g/ day AdjBW. Fluids: 1 mL/Kcal, or as per MD. Nutrition Intervention Nutrition Support: Continue PPN @ 100mL/hr with: 3.5% AA 7.9% Dextrose Osmolarity: 883 Na: 60 mEq K: 100 mEq Ca:0 mEq M mEq Phos: 60 mmol Cl/Co2: 25%/75% MVI Thiamine Kcal 986 Protein (gm) 85 Carbohydrates (gm) 190 Fat (gm) 0 Fluid (mL) 2,400 Fiber (gm) 0 % RDI: 55% Kcal; 93% AA. Goal #1 Provide at least 75% of energy /protein needs through Parenteral Feeding during LOS. Goal #2 Maintain body weight within +/ -3% of admission body weight during LOS. Follow-Up By: 10/06/21 Additional Comments Continue monitoring PPN tolerance and BM. BMP, Phos, Mg labs ordered.
[2021-10-06] MEDS: PANTOPRAZOLE 40 MG INJ IV SCH (09:35)
--- NOTE | 2021-10-06 10:30 | Progress Note ---
Assessment and Plan - Patient Problems (1) Acute renal failure Current Visit: Yes Status: Acute Plan to address problem: Acute kidney injury likely 2/2 pre-renal azotemia with superimposed contrast induced nephropathy/ATN after repeated IV contrast exposure. Suspect intravascular volume depletion/third spacing in the setting of hypoalbuminemia, urine lytes, urine protein/cr ratio pending. Patient with significant edema/third spacing, cont albumin support 12.5g q8hr x 2 days. Renal function remains stable and pt remains non-oliguric currently with UOP > 2L/day, likely in recovery phase of ATN. Cont supportive care for BRYANNA/ATN, avoid further IV c ontrast, nephrotoxins, NSAIDs, maintain MAP > 65mmhg. (2) Sepsis Current Visit: Yes Status: Acute Plan to address problem: wound culture showed VRE, pt was initiated on daptomycin, also continued on metronidazole. please ensure that the ABXs are dosed for current eGFR ~35mls/min. (3) Appendicitis with perforation Current Visit: Yes Status: Acute Plan to address problem: laparoscopic converted to open left hemicolectomy with appendectomy (4) Hypoalbuminemia due to protein-calorie malnutrition Current Visit: Yes Status: Acute Plan to address problem: cont TPN. add albumin support 12.5g q8hrs x 2 days (5) Anemia Current Visit: Yes Status: Acute Plan to address problem: Transfuse with PRBCs prn to target Hb > 7 (6) Hypokalemia Current Visit: Yes Status: Acute Plan to address problem: K supplementation ongoing via PPN (7) Hypophosphatemia Current Visit: Yes Status: Acute Plan to address problem: PO4 improved s/p supplementation with Kphos Subjective Date of service: 10/06/21 Principal diagnosis: BRYANNA Interval history: Patient is awake, alert, oriented x 3, denies fever, chills, SOB, CP, remains on NGT with intermittent suction, currently on PPN. Urine output is excellent >2L/day Objective - Vital Signs Vital signs: Vital Signs - 12hr 10/06/21 10/06/21 04:30 07:42 Temperature 98.2 F Pulse Rate 116 H Respiratory 18 Rate Blood Pressure 156/94 O2 Sat by Pulse 97 97 Oximetry - General Appearance General appearance: well-developed, well-nourished, appears stated age EENT: ATNC, PERRL, mucous membranes moist Neck: no JVD Respiratory: Present: Clear to Ascultation Cardiology: regular, S1S2 Gastrointestinal: normoactive bowel sounds Integumentary: no rash, other (+ b/l LE edema ) Neurologic: no focal deficit, alert and oriented x3, strength 5/5, CN 3-12 intact Psychiatric: mood/affect appropriate, cooperative - Lab 10/06/21 05:27 10/06/21 05:27 Most recent lab results Calcium 7.8 mg/dL (8.4-10.2) L 10/06/21 05:27 Phosphorus 2.80 mg/dL (2.5-4.5) D 10/06/21 05:27 Magnesium 2.10 mg/dL (1.7-2.3) 10/06/21 05:27 Medications & Allergies - Medications Allergies/Adverse Reactions: Allergies No Known Allergies Allergy (Verified 09/24/21 12:21) Home Medications: Home Medications Medication Instructions Recorded Confirmed Last Taken Type No Known Home Medications [No 09/27/21 09/27/21 Unknown History Reported Home Medications] Active Medications: Generic Name Dose Route Start Last Admin Trade Name Freq PRN Reason Stop Dose Admin Albumin Human 12.5 gm 10/05/21 14:00 10/05/21 23:34 Albumin Human 25% (12.5 Gm/50 Ml) Inj IV 10/07/21 13:59 12.5 gm Q8HR JAZ Administration Albuterol 2.5 mg 09/24/21 18:07 Albuterol 2.5 Mg/3 Ml Nebu IH Q4HRT PRN Shortness Of Breath Dextrose 0 ml 10/03/21 12:37 Dextrose 10% *Hypoglycemia IV PRN PRN Hypoglycemia Diphenhydramine HCl 25 mg 10/04/21 15:14 10/05/21 23:33 Diphenhydramine 50 Mg/Ml Vial IV 25 mg Q6H PRN Administration Itching Hydromorphone HCl 1 mg 10/03/21 14:00 10/06/21 07:47 Hydromorphone 1 Mg/1 Ml Inj IV 1 mg Q3H PRN Administration Pain , Severe (7-10) Metronidazole 500 mg in 100 mls @ 100 mls/hr 10/02/21 16:00 10/06/21 08:05 Flagyl 500 Mg/100 Ml IV 100 mls/hr Q8H JAZ Administration Protocol Lactated Ringer's 1,000 mls @ 75 mls/hr 10/02/21 13:00 10/06/21 01:38 Lactated Ringers IV 125 mls/hr DIRECT JAZ Administration Daptomycin 700 mg/ Sodium 100 mls @ 200 mls/hr 10/04/21 12:00 10/06/21 09:36 Chloride IV 200 mls/hr Q24HR JAZ Administration Protocol Amino Acids/Electrolytes/Dextrose 2,400 mls @ 100 mls/hr 10/05/21 20:00 10/05/21 20:34 Tpn Adult IV 10/06/21 19:59 100 mls/hr DAILY@1999 [facility] Administration Protocol Insulin Human Regular 0 units 10/03/21 13:00 10/06/21 01:40 Insulin Regular, Human 100 Units/1 Ml SUB-Q Not Given Q6H [facility] Protocol Labetalol HCl 10 mg 10/01/21 08:31 10/01/21 10:02 Labetalol 20 Mg/4 Ml Inj IV 10 mg Q6H PRN Administration Hypertension Morphine Sulfate 3 mg 10/03/21 14:00 10/06/21 09:38 Morphine 4 Mg/1 Ml Inj IV 3 mg Q6H JAZ Administration Naloxone HCl 0.1 mg 10/03/21 14:00 Naloxone 0.4 Mg/1 Ml Inj IV Q2MIN PRN Res Rate </= 8 or 02 SAT < 92% Ondansetron HCl 4 mg 09/24/21 18:07 10/05/21 11:39 Ondansetron 4 Mg/2 Ml Inj IV 4 mg Q8H PRN Administration Nausea And Vomiting Pantoprazole Sodium 40 mg 10/04/21 19:00 10/06/21 09:35 Pantoprazole 40 Mg Inj IV 40 mg QDAY JAZ Administration Phenol 1 spray 10/02/21 13:00 10/03/21 10:23 Phenol 1.4% 177 Ml Bottle MM 1 spray PRN PRN Administration Sore Throat Scopolamine 1 each 10/04/21 10:00 10/04/21 12:18 Scopolamine Transdermal Patch 72 Hr TD 1 each Q3D JAZ Administration Sodium Chloride 10 ml 09/24/21 22:00 10/06/21 01:40 Sodium Chloride 0.9% 10 Ml Flush Syringe IV 10 ml BID JAZ Administration Sodium Chloride 10 ml 09/24/21 18:07 09/25/21 08:34 Sodium Chloride 0.9% 10 Ml Flush Syringe IV 10 ml PRN PRN Administration LINE FLUSH
--- NOTE | 2021-10-06 13:14 | Progress Note ---
Assessment and Plan Postop day #5 status post laparoscopic converted to open left hemicolectomy with appendectomy for perforated appendicitis with fistulization to sigmoid colon. Patient had one febrile episode and stable with decreasing tachycardia. Expect some degree of postoperative ileus will await for return of bowel function. Concerned for possible ureter injury given complicated anatomy and pathology with increase in creatinine. Communicated with urology, Dr. Kan prefers who in an ideal situation would like to get IVP to further evaluate anatomy but since the contrast may be nephrotoxic would like to avoid. A cysto may be a possibility but he says that he would like continue to monitor since creatinine is improving and she is still making good urine output. Leukocytosis is stable with slight dip in H/H. No overt active bleeding. Cont inue abx per ID. Will continue to follow closely. Subjective Date of service: 10/06/21 Narrative: No acute events over night. Pt says she did not sleep well last night and overall is frustrated and does not feel well. Pt was repositioned in the bed and her mother and sister arrived during this encounter and she said that was help ful. There was no fever over the last 24 hours. Pt says that she feels mucous in her throat and it makes her nauseous. She says she has not passed flatus yet. Objective Vital Signs - 12hr 10/06/21 10/06/21 04:30 07:42 Temperature 98.2 F Pulse Rate 116 H Respiratory 18 Rate Blood Pressure 156/94 O2 Sat by Pulse 97 97 Oximetry - General physical appearance well developed, moderate distress, moderate pain - Eyes PERRL - ENT no hearing loss - Respiratory normal expansion, normal respiratory effort - Abdomen soft, other (incicion c/d/i, YURIDIA serous with less than volume than yesterday. minimal output from NGT.) - Genitourinary other (urine jeannie but clear) - Labs 10/06/21 05:27 10/06/21 05:27 Diabetes panel 10/06/21 Range/Units 05:27 Sodium 134 L (137-145) mmol/L Potassium 4.2 (3.6-5.0) mmol/L Chloride 101.5 (98-107) mmol/L Carbon Dioxide 20 L (22-30) mmol/L BUN 28 H (7-17) mg/dL Creatinine 1.9 H (0.6-1.2) mg/dL Glucose 132 H (65-100) mg/dL Calcium 7.8 L (8.4-10.2) mg/dL Calcium panel 10/06/21 Range/Units 05:27 Calcium 7.8 L (8.4-10.2) mg/dL Phosphorus 2.80 D (2.5-4.5) mg/dL Pituitary panel 10/06/21 Range/Units 05:27 Sodium 134 L (137-145) mmol/L Potassium 4.2 (3.6-5.0) mmol/L Chloride 101.5 (98-107) mmol/L Carbon Dioxide 20 L (22-30) mmol/L BUN 28 H (7-17) mg/dL Creatinine 1.9 H (0.6-1.2) mg/dL Glucose 132 H (65-100) mg/dL Calcium 7.8 L (8.4-10.2) mg/dL Adrenal panel 10/06/21 Range/Units 05:27 Sodium 134 L (137-145) mmol/L Potassium 4.2 (3.6-5.0) mmol/L Chloride 101.5 (98-107) mmol/L Carbon Dioxide 20 L (22-30) mmol/L BUN 28 H (7-17) mg/dL Creatinine 1.9 H (0.6-1.2) mg/dL Glucose 132 H (65-100) mg/dL Calcium 7.8 L (8.4-10.2) mg/dL
[2021-10-06] MEDS: ALBUMIN HUMAN 25% (12.5 GM/50 ML) INJ IV SCH ×2 (13:20→14:08)
--- NOTE | 2021-10-06 13:23 | Progress Note ---
Assessment and Plan Cultures: Blood culture no growth so far Wound culture VRE A/P: 31-year-old female past medical history obesity, nephrolithiasis now with: #Acute sepsis: Present with leukocytosis and tachycardia. Secondary to intra- abdominal infection #Pericolonic abscesses with appendiceal rupture and fistulization: Status post washout of abscesses, cultures now with VRE. #BRYANNA: Renally dose medications #Obesity Recs: -Continue daptomycin 8mg/kg q24h, higher dosing for VRE -Continue metronidazole. -Monitor white count with change in antibiotics. If no improvement may need further scans to assess for repeat abscess formation Thank you for the consult, we will continue to follow. Josefina Perry MD [facility] O: [phone] F: [phone] Subjective Date of service: 10/06/21 Principal diagnosis: BRYANNA Interval history: Aferile, small improvement in white count though still elevated. no new issue today. Objective - Exam Narrative Exam: Physical Exam: Constitutional: Alert, cooperative. No acute distress Head, Ears, Nose: Normocephalic, atraumatic. External ears, nose normal Eyes: Conjunctivae/corneas clear. No icterus. No ptosis. Neck: Supple, no meningeal signs Oral: dentition fair, no thrush Cardiovascular: S1, S2 normal. Respiratory: Good air entry, clear to auscultation bilaterally GI: Appropriately tender postoperatively, YURIDIA drain in place Musculoskeletal: No pedal edema, no cyanosis. Skin: No rash or abscess Hem/Lymphatic: No palpable cervical or supraclavicular nodes. No lymphangitis Psych: Mood ok. Affect normal Neurological: Awake, alert, oriented. No gross abnormality - Constitutional Vitals: Vital Signs Temp Pulse Resp BP Pulse Ox 98.2 F 116 H 18 156/94 97 10/06/21 04:30 10/06/21 04:30 10/06/21 04:30 10/06/21 04:30 10/06/21 07:42 Temperature -Last 24 Hours Temperature 98.2 F Temperature 98.9 F Temperature 99.4 F - Labs CBC & Chem 7: 10/06/21 05:27 10/06/21 05:27 Labs: Abnormal lab results 03/01/22 03/01/22 03/02/22 Range/Units 18:17 23:37 04:27 WBC (4.5-11.0) K/mm3 RBC (3.65-5.03) M/mm3 Hgb (10.1-14.3) gm/dl Hct (30.3-42.9) % RDW (13.2-15.2) % Plt Count (140-440) K/mm3 Sodium (137-145) mmol/L Carbon Dioxide (22-30) mmol/L BUN (7-17) mg/dL Creatinine (0.6-1.2) mg/dL Glucose (65-100) mg/dL POC Glucose 119 H 130 H 132 H (70-105) mg/dL Calcium (8.4-10.2) mg/dL Total Creatine Kinase (30-135) units/L 10/06/21 10/06/21 Range/Units 05:27 05:27 WBC 23.4 H (4.5-11.0) K/mm3 RBC 2.84 L (3.65-5.03) M/mm3 Hgb 7.8 L (10.1-14.3) gm/dl Hct 23.9 L (30.3-42.9) % RDW 16.2 H (13.2-15.2) % Plt Count 712 H (140-440) K/mm3 Sodium 134 L (137-145) mmol/L Carbon Dioxide 20 L (22-30) mmol/L BUN 28 H (7-17) mg/dL Creatinine 1.9 H (0.6-1.2) mg/dL Glucose 132 H (65-100) mg/dL POC Glucose (70-105) mg/dL Calcium 7.8 L (8.4-10.2) mg/dL Total Creatine Kinase 242 H (30-135) units/L
[2021-10-06] MEDS: diphenhydrAMINE 50 MG/ML VIAL IV PRN (16:12)
--- NOTE | 2021-10-06 16:32 | XRay Report ---
CHEST 1 VIEW 10/06/2021 3:36 PM INDICATION / CLINICAL INFORMATION: shortness of breath. COMPARISON: 09/24/2019 FINDINGS: SUPPORT DEVICES: Stable, satisfactory device positioning. HEART / MEDIASTINUM: Cardiomegaly LUNGS / PLEURA: Increased pulmonary vascularity with opacities overlying the lower lungs No pneumotho rax. Signer Name: Elmer Fritz MD Signed: 10/06/2021 4:28 PM Workstation Name: [employer]
--- NOTE | 2021-10-06 17:28 | XRay Report ---
ABDOMEN 1 VIEW INDICATION / CLINICAL INFORMATION: follow up ileus. COMPARISON: None available. FINDINGS: TUBES / LINES: Surgical clips overlie the midabdomen. BOWEL GAS PATTERN: No significant abnormality. FREE AIR / EXTRALUMINAL GAS: None seen. ADDITIONAL FINDINGS: No significant additional findings. IMPRESSION: 1. No significant abnormality. No definite evidence for small bowel ileus. Signer Name: Shahram Ortega MD Signed: 10/06/2021 5:24 PM Workstation Name: [employer]
[2021-10-06] MEDS ORDERED: TOTAL PARENTERAL NUTRITION 2,400 ML IV SCH (20:00)
[2021-10-07] MEDS: ALBUMIN HUMAN 25% (12.5 GM/50 ML) INJ IV SCH ×2 (00:12→05:50)
[2021-10-07] MEDS: metroNIDAZOLE/NS 500 MG/100 ML 500 MG/100 ML BAG IV SCH ×7 (00:33→18:24)
[2021-10-07] MEDS: diphenhydrAMINE 50 MG/ML VIAL IV PRN (00:34)
[2021-10-07] MEDS: INSULIN REGULAR, HUMAN 100 UNITS/1 ML SUB-Q SCH ×4 (01:57→18:15)
[2021-10-07] MEDS: LACTATED RINGERS 1,000 ML IV SCH (05:50)
[2021-10-07] MEDS: MORPHINE 4 MG/1 ML INJ IV SCH ×4 (05:52→21:58)
[2021-10-07] MEDS: HEPARIN 5,000 UNIT/1 ML VIAL SUB-Q SCH ×3 (05:55→22:58)
[2021-10-07 06:25] LABS: Calcium 7.6 mg/dL (8.4-10.2)
--- NOTE | 2021-10-07 08:00 | Progress Note ---
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 #Open left hemicolectomy and partial omentectomy #Peritonitis #Leukocytosis WBC 22.3, due to lack improvement may need a CT of chest and abdomen to evaluat e further -CT abd/pelvis showed diverticulitis with abscess -s/p diagnositic laparatomy and drain placement 09/26/2021 -Continue daptomycin and flagyl per ID recommendations -Continue TPN/PPN per general surgery; NGT in place and clamped Returned to the OR on 09/30/2021 for left hemicolectomy, appendectomy, and partial omentectomy Continue to monitor - General surgery following, assistance appreciated #Acute hypoxic respiratory failure- resolved - etiology: Likely secondary to recent surgical procedures versus volume overload - baseline oxygen requirements: None - currently requiring supplemental O2; continuous pulse oxygenation - CXR showing pulmonary vascular congestion - Continue protocol: wean oxygen as tolerated, patient encouraged to continue incentive spirometry - continue to monitor #Acute Kidney Injury-stable -secondary to vasomotor nephropathy vs contrast induced Creatinine 1.9 -Nephrology consulted, assistance appreciated -continue IVF #Acute blood loss anemia s/p 3 units of pRBCs since admission, Hgb stable - likely 2/2 to surgical procedures - transfuse if hemoglobin less than 7 or patient becomes symptomatic. #Moderate protein caloric malnutrition Albumin 1.6 Consulting nutrition; appreciate recs #Volume depletion -likely 2/2 to poor PO intake due to abdominal pain and vomiting -continue IVFs, can discontinue after patient resumes PO intake #Hypokalemia #Hypophosphatemia -will continue to replete and monitor #Advance care planning -Disease education conducted, care plan discussed, diagnoses discussed, prognosis discussed, patient is full code. Patient and family at bedside knowledges understanding and agreement with care plan Time: +30 minutes. Disposition Plan: Continue medical management History Interval history: No acute events overnight. Patient reports pain all over and pain with breathing. Has nonproductive cough. Hospitalist Physical - Physical exam Narrative exam: GENERAL: Well-developed well-nourished. In no acute distress. HEENT: NGT in place. CHEST/LUNGS: Coarse breath sounds bilaterally on simple facemask HEART/CARDIOVASCULAR: RRR. No murmur, rubs or gallops appreciated. ABDOMEN: ALEX drain in place. Surgical julia intact, no drainage noted. +BS. ND. NEURO: No focal motor deficit. Follows all commands. MUSCULOSKELETAL: No joint effusion EXTREMITIES: No cyanosis, clubbing or edema. PSYCH: Cooperative. - Constitutional Vitals: Temp Pulse Resp BP Pulse Ox 100.2 F H 104 H 18 147/95 90 10/06/21 22:00 10/07/21 05:06 10/06/21 22:00 10/07/21 05:06 10/07/21 05:06 General appearance: Present: severe distress, well-nourished, obese, other (Asleep at bedside) Results - Labs CBC & Chem 7: 10/07/21 09:43 10/07/21 05:13 Labs: Laboratory Last Values WBC 23.4 K/mm3 (4.5-11.0) H 10/06/21 05:27 RBC 2.84 M/mm3 (3.65-5.03) L 10/06/21 05:27 Hgb 7.8 gm/dl (10.1-14.3) L 10/06/21 05:27 Hct 23.9 % (30.3-42.9) L 10/06/21 05:27 MCV 84 fl (79-97) 10/06/21 05:27 MCH 28 pg (28-32) 10/06/21 05:27 MCHC 33 % (30-34) 10/06/21 05:27 RDW 16.2 % (13.2-15.2) H 10/06/21 05:27 Plt Count 712 K/mm3 (140-440) H 10/06/21 05:27 [place] % (Auto) 5.9 % (0.0-7.3) 09/28/21 04:55 Eos % (Auto) 0.4 % (0.0-4.3) 09/28/21 04:55 [place] # (Auto) 0.9 K/mm3 (0.0-0.8) H 09/28/21 04:55 Eos # (Auto) 0.1 K/mm3 (0.0-0.4) 09/28/21 04:55 Baso # (Auto) 0.0 K/mm3 (0.0-0.1) 09/28/21 04:55 Add Manual Diff Complete 10/05/21 04:40 Total Counted 100 10/05/21 04:40 Seg Neutrophils % Roll Cleaner 10/03/21 04:55 Seg Neuts % (Manual) 91.0 % (40.0-70.0) H 10/05/21 04:40 Band Neutrophils % 0 % 10/05/21 04:40 Lymphocytes % (Manual) 7.0 % (13.4-35.0) L 10/05/21 04:40 Reactive Lymphs % (Man) 0 % 10/05/21 04:40 Monocytes % (Manual) 2.0 % (0.0-7.3) 10/05/21 04:40 Eosinophils % (Manual) 0 % (0.0-4.3) 10/05/21 04:40 Basophils % (Manual) 0 % (0.0-1.8) 10/05/21 04:40 Metamyelocytes % 0 % 10/05/21 04:40 Myelocytes % 0 % 10/05/21 04:40 Promyelocytes % 0 % 10/05/21 04:40 Blast Cells % 0 % 10/05/21 04:40 Nucleated RBC % Not Reportable 10/05/21 04:40 Seg Neutrophils # 14.0 K/mm3 (1.8-7.7) H 09/28/21 04:55 Seg Neutrophils # Man 22.5 K/mm3 (1.8-7.7) H 10/05/21 04:40 Band Neutrophils # 0.0 K/mm3 10/05/21 04:40 Lymphocytes # (Manual) 1.7 K/mm3 (1.2-5.4) 10/05/21 04:40 Abs React Lymphs (Man) 0.0 K/mm3 10/05/21 04:40 Monocytes # (Manual) 0.5 K/mm3 (0.0-0.8) 10/05/21 04:40 Eosinophils # (Manual) 0.0 K/mm3 (0.0-0.4) 10/05/21 04:40 Basophils # (Manual) 0.0 K/mm3 (0.0-0.1) 10/05/21 04:40 Metamyelocytes # 0.0 K/mm3 10/05/21 04:40 Myelocytes # 0.0 K/mm3 10/05/21 04:40 Promyelocytes # 0.0 K/mm3 10/05/21 04:40 Blast Cells # 0.0 K/mm3 10/05/21 04:40 Pathologist Review 09/24/21 14:58 WBC Morphology Not Reportable 10/05/21 04:40 Hypersegmented Neuts Not Reportable 10/05/21 04:40 Hyposegmented Neuts Not Reportable 10/05/21 04:40 Hypogranular Neuts Not Reportable 10/05/21 04:40 Smudge Cells Not Reportable 10/05/21 04:40 Toxic Granulation Not Reportable 10/05/21 04:40 Toxic Vacuolation Not Reportable 10/05/21 04:40 Dohle Bodies Not Reportable 10/05/21 04:40 Pelger-Huet Anomaly Not Reportable 10/05/21 04:40 Marlene Rods Not Reportable 10/05/21 04:40 Platelet Estimate Consistent w auto 10/05/21 04:40 Clumped Platelets Few 10/05/21 04:40 Plt Clumps, EDTA Not Reportable 10/05/21 04:40 Large Platelets Few 10/05/21 04:40 Giant Platelets Not Reportable 10/05/21 04:40 Platelet Satelliting Not Reportable 10/05/21 04:40 Plt Morphology Comment Not Reportable 10/05/21 04:40 RBC Morphology Not Reportable 10/05/21 04:40 Dimorphic RBCs Not Reportable 10/05/21 04:40 Polychromasia Not Reportable 10/05/21 04:40 Hypochromasia Few 10/05/21 04:40 Poikilocytosis Not Reportable 10/05/21 04:40 Anisocytosis 1+ 10/05/21 04:40 Microcytosis Not Reportable 10/05/21 04:40 Macrocytosis Not Reportable 10/05/21 04:40 Spherocytes Not Reportable 10/05/21 04:40 Pappenheimer Bodies Not Reportable 10/05/21 04:40 Sickle Cells Not Reportable 10/05/21 04:40 Target Cells Not Reportable 10/05/21 04:40 Tear Drop Cells Not Reportable 10/05/21 04:40 Ovalocytes Not Reportable 10/05/21 04:40 Helmet Cells Not Reportable 10/05/21 04:40 [place] Bodies Not Reportable 10/05/21 04:40 [place] Rings Not Reportable 10/05/21 04:40 Anusha Cells Not Reportable 10/05/21 04:40 Bite Cells Not Reportable 10/05/21 04:40 Crenated Cell Not Reportable 10/05/21 04:40 Elliptocytes Not Reportable 10/05/21 04:40 Acanthocytes (Spur) Not Reportable 10/05/21 04:40 Rouleaux Not Reportable 10/05/21 04:40 Hemoglobin C Crystals Not Reportable 10/05/21 04:40 Schistocytes Not Reportable 10/05/21 04:40 Malaria parasites Not Reportable 10/05/21 04:40 Flaco Bodies Not Reportable 10/05/21 04:40 Hem Pathologist Commnt No 10/05/21 04:40 PT 17.8 Sec. (12.2-14.9) H 10/05/21 04:40 INR 1.31 (0.87-1.13) H 10/05/21 04:40 Sodium 136 mmol/L (137-145) L 10/07/21 05:13 Potassium 4.3 mmol/L (3.6-5.0) 10/07/21 05:13 Chloride 101.3 mmol/L (98-107) 10/07/21 05:13 Carbon Dioxide 20 mmol/L (22-30) L 10/07/21 05:13 Anion Gap 19 mmol/L 10/07/21 05:13 BUN 29 mg/dL (7-17) H 10/07/21 05:13 Creatinine 1.9 mg/dL (0.6-1.2) H 10/07/21 05:13 Estimated GFR 37 ml/min 10/07/21 05:13 BUN/Creatinine Ratio 15 % 10/07/21 05:13 Glucose 140 mg/dL (65-100) H 10/07/21 05:13 POC Glucose 139 mg/dL (70-105) H 10/07/21 05:09 Lactic Acid 1.00 mmol/L (0.7-2.0) 09/24/21 21:54 Calcium 7.6 mg/dL (8.4-10.2) L 10/07/21 05:13 Phosphorus 3.70 mg/dL (2.5-4.5) D 10/07/21 05:13 Magnesium 2.20 mg/dL (1.7-2.3) 10/07/21 05:13 Total Bilirubin 0.50 mg/dL (0.1-1.2) 10/05/21 04:40 AST 31 units/L (5-40) 10/05/21 04:40 ALT 11 units/L (7-56) 10/05/21 04:40 Alkaline Phosphatase 78 units/L (35-129) 10/05/21 04:40 Total Creatine Kinase 242 units/L (30-135) H 10/06/21 05:27 Total Protein 5.2 g/dL (6.3-8.2) L D 10/05/21 04:40 Albumin 1.8 g/dL (3.9-5) L 10/05/21 04:40 Albumin/Globulin Ratio 0.5 % 10/05/21 04:40 Urine Color Yellow (Yellow) 09/24/21 14:49 Urine Turbidity Slightly-cloudy (Clear) 09/24/21 14:49 Urine pH 6.0 (5.0-7.0) 09/24/21 14:49 Ur Specific [place] 1.017 (1.003-1.030) 09/24/21 14:49 Urine Protein 30 mg/dl mg/dL (Negative) 09/24/21 14:49 Urine Glucose (UA) Neg mg/dL (Negative) 09/24/21 14:49 Urine Ketones Neg mg/dL (Negative) 09/24/21 14:49 Urine Blood Neg (Negative) 09/24/21 14:49 Urine Nitrite Neg (Negative) 09/24/21 14:49 Ur Reducing Substances Not Reportable 09/24/21 14:49 Urine Bilirubin Neg (Negative) 09/24/21 14:49 Urine Ictotest Not Reportable 09/24/21 14:49 Urine Urobilinogen < 2.0 mg/dL (<2.0) 09/24/21 14:49 Ur Leukocyte Esterase Neg (Negative) 09/24/21 14:49 Urine WBC (Auto) 4.0 /HPF (0.0-6.0) 09/24/21 14:49 Urine RBC (Auto) 2.0 /HPF (0.0-6.0) 09/24/21 14:49 U Epithel Cells (Auto) 18.0 /HPF (0-13.0) H 09/24/21 14:49 Urine Mucus Few /HPF 09/24/21 14:49 Urine HCG, Qual Negative (Negative) 09/24/21 14:49 Blood Type A POSITIVE 10/04/21 13:30 Antibody Screen Negative 10/04/21 13:30 Crossmatch See Detail 10/04/21 13:30 Microbiology: Microbiology 09/30/21 Unknown Alex Drain Wound Culture - Preliminary Enterococcus Faecium Doss/IV: Voiding Method Indwelling Catheter Active Medications - Current Medications Current Medications: Generic Name Dose Route Start Last Admin Trade Name Freq PRN Reason Stop Dose Admin Albumin Human 12.5 gm 10/05/21 14:00 10/07/21 05:50 Albumin Human 25% (12.5 Gm/50 Ml) Inj IV 10/07/21 13:59 12.5 gm Q8HR JAZ Administration Albuterol 2.5 mg 09/24/21 18:07 Albuterol 2.5 Mg/3 Ml Nebu IH Q4HRT PRN Shortness Of Breath Dextrose 0 ml 10/03/21 12:37 Dextrose 10% *Hypoglycemia IV PRN PRN Hypoglycemia Diphenhydramine HCl 25 mg 10/04/21 15:14 10/07/21 00:34 Diphenhydramine 50 Mg/Ml Vial IV 25 mg Q6H PRN Administration Itching Heparin Sodium (Porcine) 5,000 unit 10/07/21 06:00 10/07/21 05:55 Heparin 5,000 Unit/1 Ml Vial SUB-Q 5,000 unit Q8HR JAZ Administration Hydromorphone HCl 1 mg 10/03/21 14:00 10/06/21 19:51 Hydromorphone 1 Mg/1 Ml Inj IV 1 mg Q3H PRN Administration Pain , Severe (7-10) Metronidazole 500 mg in 100 mls @ 100 mls/hr 10/02/21 16:00 10/07/21 00:33 Flagyl 500 Mg/100 Ml IV 100 mls/hr Q8H JAZ Administration Protocol Lactated Ringer's 1,000 mls @ 75 mls/hr 10/02/21 13:00 10/07/21 05:50 Lactated Ringers IV 125 mls/hr DIRECT JAZ Administration Daptomycin 700 mg/ Sodium 100 mls @ 200 mls/hr 10/04/21 12:00 10/06/21 09:36 Chloride IV 200 mls/hr Q24HR [facility] Administration Protocol Amino Acids/Electrolytes/Dextrose 2,400 mls @ 100 mls/hr 10/06/21 20:00 09/28 20:37 Tpn Adult IV 10/07/21 19:59 100 mls/hr DAILY@2000 [facility] Administration Protocol Insulin Human Regular 0 units 10/03/21 13:00 10/07/21 01:57 Insulin Regular, Human 100 Units/1 Ml SUB-Q Not Given Q6H [facility] Protocol Labetalol HCl 10 mg 10/01/21 08:31 10/01/21 10:02 Labetalol 20 Mg/4 Ml Inj IV 10 mg Q6H PRN Administration Hypertension Morphine Sulfate 3 mg 10/03/21 14:00 10/07/21 05:52 Morphine 4 Mg/1 Ml Inj IV Not Given Q6H [facility] Naloxone HCl 0.1 mg 10/03/21 14:00 Naloxone 0.4 Mg/1 Ml Inj IV Q2MIN PRN Res Rate </= 8 or 02 SAT < 92% Ondansetron HCl 4 mg 09/24/21 18:07 10/05/21 11:39 Ondansetron 4 Mg/2 Ml Inj IV 4 mg Q8H PRN Administration Nausea And Vomiting Pantoprazole Sodium 40 mg 10/04/21 19:00 10/06/21 09:35 Pantoprazole 40 Mg Inj IV 40 mg QDAY JAZ Administration Phenol 1 spray 10/02/21 13:00 10/03/21 10:23 Phenol 1.4% 177 Ml Bottle MM 1 spray PRN PRN Administration Sore Throat Scopolamine 1 each 10/04/21 10:00 10/04/21 12:18 Scopolamine Transdermal Patch 72 Hr TD 1 each Q3D JAZ Administration Sodium Chloride 10 ml 09/24/21 22:00 10/06/21 22:53 Sodium Chloride 0.9% 10 Ml Flush Syringe IV 10 ml BID JAZ Administration Sodium Chloride 10 ml 09/24/21 18:07 09/25/21 08:34 Sodium Chloride 0.9% 10 Ml Flush Syringe IV 10 ml PRN PRN Administration LINE FLUSH Nutrition/Malnutrition Assess - Dietary Evaluation Nutrition/Malnutrition Findings: Nutrition Notes Start: 09/25/21 15:31 Freq: Status: Active Protocol: Document 10/06/21 10:10 BIN (Rec: 10/06/21 10:31 BIN [id number]) Nutrition Notes Initial or Follow up Reassessment Current Diagnosis Acute Kidney Injury,Sepsis, Malnutrition Other Pertinent Diagnosis s/p Diverticulitis, s/p Hemicolectomy/Appendectomy/ Partial Omentectomy. Current Diet PPN @ 100mL/hr Labs/Tests 10/06: Na 134, CO2 20, BUN 28, Crea 1.9, Glu 132, Ca 7.8. Pertinent Medications 10/06: Albumin, others nutritionally unremarkable. Height 5 ft 7 in Weight 89.8 kg [place] Body Weight (kg) 61.36 BMI 31.0 Weight change and time frame No body weight changed reported. Weight Status Obese Subjective/Other Information RD consult for routine F/U on PPN. PPN continues as prescribed, well tolerated, according to RN notes. Pt is NPO but can have Ice chips PRN. Pt still reports nausea. Percent of energy/protein needs met: 55% Kcal; 93% AA. Burn Absent Trauma Absent GI Symptoms Nausea Food Allergy No Skin Integrity/Comment Surgical wound. Current % PO Other Minimum of two criteria No #1 Nutrition Diagnosis Altered GI function Diagnosis Progress(for reassessment Continues documentation) Is patient on ventilator? No Is Patient Ambulatory and/or Out of Bed Yes REE-([facility]-ambulatory/OOB) [ 2132.819 [id number]] Kcal/Kg value to use for calculation 20 Approximate Energy Requirements Using 1796 kcal/Kg Calculation Used for Recommendations Kcal/kg Additional Notes Protein: 1.2-1.5 g/Kg 91-114g/ day AdjBW. Fluids: 1 mL/Kcal, or as per MD. Nutrition Intervention Nutrition Support: Continue PPN @ 100mL/hr with: 3.5% AA 7.9% Dextrose Osmolarity: 883 Na: 60 mEq K: 100 mEq Ca:0 mEq M mEq Phos: 60 mmol Cl/Co2: 25%/75% MVI Kcal 986 Protein (gm) 85 Carbohydrates (gm) 190 Fat (gm) 0 Fluid (mL) 2,400 Fiber (gm) 0 % RDI: 55% Kcal; 93% AA. Goal #1 Provide at least 75% of energy /protein needs through Parenteral Feeding during LOS. Goal #2 Maintain body weight within +/ -3% of admission body weight during LOS. Follow-Up By: 10/07/21 Additional Comments Continue monitoring PPN tolerance and BM. BMP, Phos, Mg labs ordered.
[2021-10-07] MEDS: PANTOPRAZOLE 40 MG INJ IV SCH (09:07)
[2021-10-07 10:16] LABS: Hemoglobin 7.8 gm/dl (10.1-14.3); Mean Corpuscular HGB Conc 33 % (30-34); Mean Corpuscular Volume 85 fl (79-97); Platelet Count 733 K/mm3 (140-440); Red Blood Count 2.81 M/mm3 (3.65-5.03); Red Cell Distribution Width 16.5 % (13.2-15.2)
[2021-10-07 11:17] LABS: Basophils % (Manual) 0 % (0.0-1.8); Total Cells Counted 100
[2021-10-07 11:18] LABS: Anisocytosis 1+; Platelet Estimate Consistent w Auto; Toxic Granulation 2+; Toxic Vacuolation 1+
--- NOTE | 2021-10-07 11:38 | Progress Note ---
Assessment and Plan Cultures: Blood culture no growth so far Wound culture VRE A/P: 31-year-old female past medical history obesity, nephrolithiasis now with: #Acute sepsis: Present with leukocytosis and tachycardia. Secondary to intra- abdominal infection #Pericolonic abscesses with appendiceal rupture and fistulization: Status post washout of abscesses, cultures now with VRE. #BRYANNA: Renally dose medications #Obesity Recs: -Continue daptomycin 8mg/kg q24h, higher dosing for VRE -Continue metronidazole. -Given lack of improvement in white count so far would recommend repeat CT with contrast if ok with nephrology. Thank you for the consult, we will continue to follow. Josefina Perry MD [facility] ([facility] O: [phone] F: [phone] Subjective Date of service: 10/07/21 Principal diagnosis: BRYANNA Interval history: Low-grade temperatures to 100.2, white count 22.3 Imaging personally reviewed: Chest x-ray: Increased pulmonary vascularity with opacities Objective - Exam Narrative Exam: Physical Exam: Constitutional: Alert, cooperative. No acute distress Head, Ears, Nose: Normocephalic, atraumatic. External ears, nose normal Eyes: Conjunctivae/corneas clear. No icterus. No ptosis. Neck: Supple, no meningeal signs Oral: dentition fair, no thrush Cardiovascular: S1, S2 normal. Respiratory: Good air entry, clear to auscultation bilaterally GI: Appropriately tender postoperatively, YURIDIA drain in place Musculoskeletal: No pedal edema, no cyanosis. Skin: No rash or abscess Hem/Lymphatic: No palpable cervical or supraclavicular nodes. No lymphangitis Psych: Mood ok. Affect normal Neurological: Awake, alert, oriented. No gross abnormality - Constitutional Vitals: Vital Signs Temp Pulse Resp BP Pulse Ox 100.2 F H 104 H 18 147/95 100 10/06/21 22:00 10/07/21 05:06 10/06/21 22:00 10/07/21 05:06 10/07/21 10:00 Temperature -Last 24 Hours Temperature 100.2 F Temperature 100.2 F Temperature 98.2 F - Labs CBC & Chem 7: 10/07/21 09:43 10/07/21 05:13 Labs: Abnormal lab results 10/06/21 10/06/21 10/06/21 Range/Units 16:40 20:50 23:39 WBC (4.5-11.0) K/mm3 RBC (3.65-5.03) M/mm3 Hgb (10.1-14.3) gm/dl Hct (30.3-42.9) % RDW (13.2-15.2) % Plt Count (140-440) K/mm3 Seg Neuts % (Manual) (40.0-70.0) % Lymphocytes % (Manual) (13.4-35.0) % Seg Neutrophils # Man (1.8-7.7) K/mm3 Lymphocytes # (Manual) (1.2-5.4) K/mm3 Monocytes # (Manual) (0.0-0.8) K/mm3 Sodium (137-145) mmol/L Carbon Dioxide (22-30) mmol/L BUN (7-17) mg/dL Creatinine (0.6-1.2) mg/dL Glucose (65-100) mg/dL POC Glucose 133 H 116 H 132 H (70-105) mg/dL Calcium (8.4-10.2) mg/dL 10/07/21 10/07/21 10/07/21 Range/Units 05:09 05:13 09:43 WBC 22.3 H (4.5-11.0) K/mm3 RBC 2.81 L (3.65-5.03) M/mm3 Hgb 7.8 L (10.1-14.3) gm/dl Hct 24.0 L (30.3-42.9) % RDW 16.5 H (13.2-15.2) % Plt Count 733 H (140-440) K/mm3 Seg Neuts % (Manual) 85.0 H (40.0-70.0) % Lymphocytes % (Manual) 1.0 L (13.4-35.0) % Seg Neutrophils # Man 19.0 H (1.8-7.7) K/mm3 Lymphocytes # (Manual) 0.2 L (1.2-5.4) K/mm3 Monocytes # (Manual) 1.6 H (0.0-0.8) K/mm3 Sodium 136 L (137-145) mmol/L Carbon Dioxide 20 L (22-30) mmol/L BUN 29 H (7-17) mg/dL Creatinine 1.9 H (0.6-1.2) mg/dL Glucose 140 H (65-100) mg/dL POC Glucose 139 H (70-105) mg/dL Calcium 7.6 L (8.4-10.2) mg/dL
[2021-10-07] MEDS: HYDROmorphone 1 MG/1 ML INJ IV PRN ×2 (12:20→17:43)
--- NOTE | 2021-10-07 13:04 | Progress Note ---
Assessment and Plan Postop day #6 status post laparoscopic converted to open left hemicolectomy with appendectomy for perforated appendicitis with fistulization to sigmoid colon. Patient had one febrile episode and stable with decreasing tachycardia. Expect some degree of postoperative ileus will await for return of bowel function. Concerned for possible ureter injury given complicated anatomy and pathology with increase in creatinine which is elevated but stable at 1.9. Communicated with urology, Dr. Kan prefers who in an ideal situation would like to get IVP to further evaluate anatomy but since the contrast may be nephrotoxic would like to avoid. He ordered a renal ultrasound. Will await results Leukocytosis is stable with slight slight decrease compared to yesterday We will get physical therapy involved to promote mobilization, and start scheduled IV acetaminophen for the next 24 hours to see if that improves her overall pain control and decrease narcotics. Will continue to follow closely. Subjective Date of service: 10/07/21 Narrative: No acute events overnight. T-max once overnight of 100.2 patient says overall she is feeling better compared to the first 2 days after this last surgery, but is still generally feeling uncomfortable and as if she is having difficulty breathing. She denies passing flatus, or nausea and vomiting. She is tolerating sips of water with minimal NG tube output. Patient had chest x-ray and abdominal x-ray yesterday that were unremarkable. Objective Vital Signs - 12hr 10/07/21 10/07/21 10/07/21 03:43 05:06 10:00 Temperature Pulse Rate 104 H Respiratory Rate Blood Pressure 147/95 O2 Sat by Pulse 100 90 100 Oximetry 10/07/21 11:36 Temperature 99.1 F Pulse Rate 103 H Respiratory 24 Rate Blood Pressure 158/94 O2 Sat by Pulse 96 Oximetry - General physical appearance well developed, no distress, moderate pain - ENT no hearing loss - Respiratory normal respiratory effort, other (Decreased respiratory expansion) - Abdomen soft, other (Midline incision intact with mild serous drainage. YURIDIA drain serous small amount. Appropriately tender to palpation) - Genitourinary other (Doss catheter with clear urine that is manager health in color compared to yesterday) - Labs 10/07/21 09:43 10/07/21 05:13 Diabetes panel 10/07/21 Range/Units 05:13 Sodium 136 L (137-145) mmol/L Potassium 4.3 (3.6-5.0) mmol/L Chloride 101.3 (98-107) mmol/L Carbon Dioxide 20 L (22-30) mmol/L BUN 29 H (7-17) mg/dL Creatinine 1.9 H (0.6-1.2) mg/dL Glucose 140 H (65-100) mg/dL Calcium 7.6 L (8.4-10.2) mg/dL Calcium panel 10/07/21 Range/Units 05:13 Calcium 7.6 L (8.4-10.2) mg/dL Phosphorus 3.70 D (2.5-4.5) mg/dL Pituitary panel 10/07/21 Range/Units 05:13 Sodium 136 L (137-145) mmol/L Potassium 4.3 (3.6-5.0) mmol/L Chloride 101.3 (98-107) mmol/L Carbon Dioxide 20 L (22-30) mmol/L BUN 29 H (7-17) mg/dL Creatinine 1.9 H (0.6-1.2) mg/dL Glucose 140 H (65-100) mg/dL Calcium 7.6 L (8.4-10.2) mg/dL Adrenal panel 10/07/21 Range/Units 05:13 Sodium 136 L (137-145) mmol/L Potassium 4.3 (3.6-5.0) mmol/L Chloride 101.3 (98-107) mmol/L Carbon Dioxide 20 L (22-30) mmol/L BUN 29 H (7-17) mg/dL Creatinine 1.9 H (0.6-1.2) mg/dL Glucose 140 H (65-100) mg/dL Calcium 7.6 L (8.4-10.2) mg/dL
--- NOTE | 2021-10-07 13:15 | Progress Note ---
Assessment and Plan - Patient Problems (1) Acute renal failure Current Visit: Yes Status: Acute Plan to address problem: Acute kidney injury likely 2/2 pre-renal azotemia with superimposed contrast induced nephropathy/ATN after repeated IV contrast exposure. urine lytes, urine protein/cr ratio pending. Patient with excellent urine output > 2L/day, however renal function remains unchanged with Cr around 1.9mg/dl, repeat renal US pending to rule out other structural abnormalities/hydro. Cont supportive care for BRYANNA/ATN, avoid further IV contrast if possible, nephrotoxins, NSAIDs, maintain MAP > 65mmhg. (2) Sepsis Current Visit: Yes Status: Acute Plan to address problem: wound culture showed VRE, pt was initiated on daptomycin, also continued on me tronidazole. please ensure that the ABXs are dosed for current eGFR ~35mls/min. (3) Appendicitis with perforation Current Visit: Yes Status: Acute Plan to address problem: laparoscopic converted to open left hemicolectomy with appendectomy (4) Hypoalbuminemia due to protein-calorie malnutrition Current Visit: Yes Status: Acute Plan to address problem: cont PPN. s/p albumin support 12.5g q8hrs x 2 days (5) Anemia Current Visit: Yes Status: Acute Plan to address problem: Transfuse with PRBCs prn to target Hb > 7 (6) Hypokalemia Current Visit: Yes Status: Acute Plan to address problem: K supplementation ongoing via PPN (7) Hypophosphatemia Current Visit: Yes Status: Acute Plan to address problem: PO4 improved s/p supplementation with Kphos Subjective Date of service: 10/07/21 Principal diagnosis: BRYANNA Interval history: Patient is awake, alert, oriented x 3, denies fever, chills, SOB, CP, currently on PPN. Urine output is excellent >2L/day Objective - Vital Signs Vital signs: Vital Signs - 12hr 10/07/21 10/07/21 10/07/21 03:43 05:06 10:00 Temperature Pulse Rate 104 H Respiratory Rate Blood Pressure 147/95 O2 Sat by Pulse 100 90 100 Oximetry 10/07/21 11:36 Temperature 99.1 F Pulse Rate 103 H Respiratory 24 Rate Blood Pressure 158/94 O2 Sat by Pulse 96 Oximetry - General Appearance General appearance: well-developed, appears stated age EENT: ATNC, PERRL, mucous membranes moist Neck: no JVD Respiratory: Present: Clear to Ascultation Cardiology: regular, S1S2 Integumentary: no rash, other (++ b/l LE edema ) Neurologic: no focal deficit, alert and oriented x3, strength 5/5, CN 3-12 in tact Psychiatric: mood/affect appropriate, cooperative - Lab 10/07/21 09:43 10/07/21 05:13 Most recent lab results Calcium 7.6 mg/dL (8.4-10.2) L 10/07/21 05:13 Phosphorus 3.70 mg/dL (2.5-4.5) D 10/07/21 05:13 Magnesium 2.20 mg/dL (1.7-2.3) 10/07/21 05:13 Medications & Allergies - Medications Allergies/Adverse Reactions: Allergies No Known Allergies Allergy (Verified 09/24/21 12:21) Home Medications: Home Medications Medication Instructions Recorded Confirmed Last Taken Type No Known Home Medications [No 09/27/21 09/27/21 Unknown History Reported Home Medications] Active Medications: Generic Name Dose Route Start Last Admin Trade Name Freq PRN Reason Stop Dose Admin Albumin Human 12.5 gm 10/05/21 14:00 10/07/21 05:50 Albumin Human 25% (12.5 Gm/50 Ml) Inj IV 10/07/21 13:59 12.5 gm Q8HR JAZ Administration Albuterol 2.5 mg 09/24/21 18:07 Albuterol 2.5 Mg/3 Ml Nebu IH Q4HRT PRN Shortness Of Breath Dextrose 0 ml 10/03/21 12:37 Dextrose 10% *Hypoglycemia IV PRN PRN Hypoglycemia Diphenhydramine HCl 25 mg 10/04/21 15:14 10/07/21 00:34 Diphenhydramine 50 Mg/Ml Vial IV 25 mg Q6H PRN Administration Itching Heparin Sodium (Porcine) 5,000 unit 10/07/21 06:00 10/07/21 05:55 Heparin 5,000 Unit/1 Ml Vial SUB-Q 5,000 unit Q8HR JAZ Administration Hydromorphone HCl 1 mg 10/03/21 14:00 10/07/21 12:20 Hydromorphone 1 Mg/1 Ml Inj IV 1 mg Q3H PRN Administration Pain , Severe (7-10) Metronidazole 500 mg in 100 mls @ 100 mls/hr 10/02/21 16:00 10/07/21 09:06 Flagyl 500 Mg/100 Ml IV 100 mls/hr Q8H [facility] Administration Protocol Lactated Ringer's 1,000 mls @ 75 mls/hr 10/02/21 13:00 10/07/21 05:50 Lactated Ringers IV 125 mls/hr DIRECT JAZ Administration Daptomycin 700 mg/ Sodium 100 mls @ 200 mls/hr 10/04/21 12:00 10/07/21 09:16 Chloride IV 200 mls/hr Q24HR [facility] Administration Protocol Amino Acids/Electrolytes/Dextrose 2,400 mls @ 100 mls/hr 10/06/21 20:00 10/06/21 20:37 Tpn Adult IV 10/07/21 19:59 100 mls/hr [email or web address] [facility] Administration Protocol Amino Acids/Electrolytes/Dextrose 2,400 mls @ 100 mls/hr 10/07/21 20:00 Tpn Adult IV 10/08/21 19:59 DAILY@[email or web address] [facility] Protocol Acetaminophen 1,000 mg in 100 mls @ 200 mls/hr 10/07/21 13:00 Acetaminophen Iv IV 10/08/21 23:59 Q6H [facility] Insulin Human Regular 0 units 10/03/21 13:00 10/07/21 09:12 Insulin Regular, Human 100 Units/1 Ml SUB-Q Not Given Q6H [facility] Protocol Labetalol HCl 10 mg 10/01/21 08:31 10/01/21 10:02 Labetalol 20 Mg/4 Ml Inj IV 10 mg Q6H PRN Administration Hypertension Morphine Sulfate 3 mg 10/03/21 14:00 10/07/21 08:37 Morphine 4 Mg/1 Ml Inj IV 3 mg Q6H JAZ Administration Naloxone HCl 0.1 mg 10/03/21 14:00 Naloxone 0.4 Mg/1 Ml Inj IV Q2MIN PRN Res Rate </= 8 or 02 SAT < 92% Ondansetron HCl 4 mg 09/24/21 18:07 10/05/21 11:39 Ondansetron 4 Mg/2 Ml Inj IV 4 mg Q8H PRN Administration Nausea And Vomiting Pantoprazole Sodium 40 mg 10/04/21 19:00 10/07/21 09:07 Pantoprazole 40 Mg Inj IV 40 mg QDAY JAZ Administration Phenol 1 spray 10/02/21 13:00 10/03/21 10:23 Phenol 1.4% 177 Ml Bottle MM 1 spray PRN PRN Administration Sore Throat Scopolamine 1 each 10/04/21 10:00 10/04/21 12:18 Scopolamine Transdermal Patch 72 Hr TD 1 each Q3D JAZ Administration Sodium Chloride 10 ml 09/24/21 22:00 10/07/21 12:21 Sodium Chloride 0.9% 10 Ml Flush Syringe IV 10 ml BID JAZ Administration Sodium Chloride 10 ml 09/24/21 18:07 09/25/21 08:34 Sodium Chloride 0.9% 10 Ml Flush Syringe IV 10 ml PRN PRN Administration LINE FLUSH
--- NOTE | 2021-10-07 13:51 | Ultrasound Report ---
ULTRASOUND RENAL INDICATION / CLINICAL INFORMATION: hydronephrosis. COMPARISON: None available. FINDINGS: RIGHT KIDNEY: Length = 11.4 cm. - Echogenicity: Normal. - Cortical Thickness: Normal. - Hydronephrosis: None. - Cyst / Mass: None. - Stones: None seen. LEFT KIDNEY: Length = 12.8 cm. - Echogenicity: Normal. - Cortical Thickness: Normal. - Hydronephrosis: None. - Cyst / Mass: None. - Stones: None seen. URINARY BLADDER: Doss within the urinary bladder FREE FLUID: There is right pleural effusion. ADDITIONAL FINDINGS: None. IMPRESSION: 1. No significant sonographic abnormality of the bilateral kidneys. 2. Incidentally noted right pleural effusion. Signer Name: Jose Eduardo Best DO Signed: 10/07/2021 1:47 PM Workstation Name: [email or web address]!
[2021-10-07] MEDS: ACETAMINOPHEN IV 1,000 MG/100 ML BOTTLE IV SCH ×2 (13:56→20:23)
[2021-10-07] MEDS: SCOPOLAMINE TRANSDERMAL PATCH 72 HR TD SCH (14:14)
[2021-10-07] MEDS ORDERED: TOTAL PARENTERAL NUTRITION 2,400 ML IV SCH (20:00)
[2021-10-08] MEDS: metroNIDAZOLE/NS 500 MG/100 ML 500 MG/100 ML BAG IV SCH ×3 (00:58→16:19)
[2021-10-08] MEDS: INSULIN REGULAR, HUMAN 100 UNITS/1 ML SUB-Q SCH ×4 (01:00→19:40)
[2021-10-08] MEDS: ACETAMINOPHEN IV 1,000 MG/100 ML BOTTLE IV SCH ×3 (01:12→14:29)
[2021-10-08] MEDS: MORPHINE 4 MG/1 ML INJ IV SCH ×2 (02:00→09:09)
[2021-10-08] MEDS: HYDROmorphone 1 MG/1 ML INJ IV PRN ×2 (05:36→17:31)
[2021-10-08 05:49] LABS: Hematocrit 24.1 % (30.3-42.9); Hemoglobin 7.8 gm/dl (10.1-14.3); Mean Corpuscular HGB Conc 32 % (30-34); Mean Corpuscular Volume 85 fl (79-97); Platelet Count 789 K/mm3 (140-440); Red Blood Count 2.84 M/mm3 (3.65-5.03); Red Cell Distribution Width 16.5 % (13.2-15.2)
[2021-10-08 06:00] LABS: Calcium 7.9 mg/dL (8.4-10.2)
[2021-10-08] MEDS: HEPARIN 5,000 UNIT/1 ML VIAL SUB-Q SCH ×2 (06:00→13:23)
--- NOTE | 2021-10-08 08:19 | Progress Note ---
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 #Open left hemicolectomy and partial omentectomy #Peritonitis #Leukocytosis WBC 21.2, due to lack improvement may need a CT of chest and abdomen to evaluat e further -CT abd/pelvis showed diverticulitis with abscess -s/p diagnositic laparatomy and drain placement 09/26/2021 -Continue daptomycin and flagyl per ID recommendations -Continue TPN/PPN per general surgery; NGT in place and clamped Returned to the OR on 09/30/2021 for left hemicolectomy, appendectomy, and partial omentectomy Continue to monitor - General surgery following, assistance appreciated #Acute hypoxic respiratory failure- resolved - etiology: Likely secondary to recent surgical procedures versus volume overload - baseline oxygen requirements: None - currently requiring supplemental O2; continuous pulse oxygenation - CXR showing pulmonary vascular congestion - Continue protocol: wean oxygen as tolerated, patient encouraged to continue incentive spirometry - continue to monitor #Acute Kidney Injury-improving -secondary to vasomotor nephropathy vs contrast induced Creatinine 1.7 -Nephrology consulted, assistance appreciated -continue IVF -cystoscopy recommended by Urology #Acute blood loss anemia s/p 3 units of pRBCs since admission, Hgb stable - likely 2/2 to surgical procedures - transfuse if hemoglobin less than 7 or patient becomes symptomatic. #Moderate protein caloric malnutrition Albumin 1.6 Consulting nutrition; appreciate recs #Volume depletion -likely 2/2 to poor PO intake due to abdominal pain and vomiting -continue IVFs, can discontinue after patient resumes PO intake #Hypokalemia #Hypophosphatemia -will continue to replete and monitor #Advance care planning -Disease education conducted, care plan discussed, diagnoses discussed, prognosis discussed, patient is full code. Patient and family at bedside knowledges understanding and agreement with care plan Time: +30 minutes. History Interval history: No acute events overnight. Reports having sharp pains in her lower abdomen. Continues to have shortness of breath. No other complaints at this time. Hospitalist Physical - Physical exam Narrative exam: GENERAL: Well-developed well-nourished. In no acute distress. HEENT: NGT in place. CHEST/LUNGS: Coarse breath sounds bilaterally on simple facemask HEART/CARDIOVASCULAR: RRR. No murmur, rubs or gallops appreciated. ABDOMEN: YURIDIA drain in place. Surgical julia intact, no drainage noted. +BS. ND. NEURO: No focal motor deficit. Follows all commands. MUSCULOSKELETAL: No joint effusion EXTREMITIES: No cyanosis, clubbing or edema. PSYCH: Cooperative. - Constitutional Vitals: Temp Pulse Resp BP Pulse Ox 97.3 F L 89 16 166/105 100 10/08/21 04:12 10/08/21 04:12 10/08/21 04:12 10/08/21 04:12 10/08/21 04:12 General appearance: Present: severe distress, well-nourished, obese, other (Asleep at bedside) Results - Labs CBC & Chem 7: 10/08/21 05:26 10/08/21 05:26 Labs: Laboratory Last Values WBC 21.8 K/mm3 (4.5-11.0) H 10/08/21 05:26 RBC 2.84 M/mm3 (3.65-5.03) L 10/08/21 05:26 Hgb 7.8 gm/dl (10.1-14.3) L 10/08/21 05:26 Hct 24.1 % (30.3-42.9) L 10/08/21 05:26 MCV 85 fl (79-97) 10/08/21 05:26 MCH 27 pg (28-32) L 10/08/21 05:26 MCHC 32 % (30-34) 10/08/21 05:26 RDW 16.5 % (13.2-15.2) H 10/08/21 05:26 Plt Count 789 K/mm3 (140-440) H 10/08/21 05:26 [place] % (Auto) 5.9 % (0.0-7.3) 09/28/21 04:55 Eos % (Auto) 0.4 % (0.0-4.3) 09/28/21 04:55 [place] # (Auto) 0.9 K/mm3 (0.0-0.8) H 09/28/21 04:55 Eos # (Auto) 0.1 K/mm3 (0.0-0.4) 09/28/21 04:55 Baso # (Auto) 0.0 K/mm3 (0.0-0.1) 09/28/21 04:55 Add Manual Diff Complete 10/07/21 09:43 Total Counted 100 10/07/21 09:43 Seg Neutrophils % Criminal Researcher 10/03/21 04:55 Seg Neuts % (Manual) 85.0 % (40.0-70.0) H 10/07/21 09:43 Band Neutrophils % 0 % 10/07/21 09:43 Lymphocytes % (Manual) 1.0 % (13.4-35.0) L 10/07/21 09:43 Reactive Lymphs % (Man) 0 % 10/07/21 09:43 Monocytes % (Manual) 7.0 % (0.0-7.3) 10/07/21 09:43 Eosinophils % (Manual) 1.0 % (0.0-4.3) 10/07/21 09:43 Basophils % (Manual) 0 % (0.0-1.8) 10/07/21 09:43 Metamyelocytes % 6.0 % 10/07/21 09:43 Myelocytes % 0 % 10/07/21 09:43 Promyelocytes % 0 % 10/07/21 09:43 Blast Cells % 0 % 10/07/21 09:43 Nucleated RBC % Not Reportable 10/07/21 09:43 Seg Neutrophils # 14.0 K/mm3 (1.8-7.7) H 09/28/21 04:55 Seg Neutrophils # Man 19.0 K/mm3 (1.8-7.7) H 10/07/21 09:43 Band Neutrophils # 0.0 K/mm3 10/07/21 09:43 Lymphocytes # (Manual) 0.2 K/mm3 (1.2-5.4) L 10/07/21 09:43 Abs React Lymphs (Man) 0.0 K/mm3 10/07/21 09:43 Monocytes # (Manual) 1.6 K/mm3 (0.0-0.8) H 10/07/21 09:43 Eosinophils # (Manual) 0.2 K/mm3 (0.0-0.4) 10/07/21 09:43 Basophils # (Manual) 0.0 K/mm3 (0.0-0.1) 10/07/21 09:43 Metamyelocytes # 1.3 K/mm3 10/07/21 09:43 Myelocytes # 0.0 K/mm3 10/07/21 09:43 Promyelocytes # 0.0 K/mm3 10/07/21 09:43 Blast Cells # 0.0 K/mm3 10/07/21 09:43 Pathologist Review 09/24/21 14:58 WBC Morphology Not Reportable 10/07/21 09:43 Hypersegmented Neuts Not Reportable 10/07/21 09:43 Hyposegmented Neuts Not Reportable 10/07/21 09:43 Hypogranular Neuts Not Reportable 10/07/21 09:43 Smudge Cells Not Reportable 10/07/21 09:43 Toxic Granulation 2+ 10/07/21 09:43 Toxic Vacuolation 1+ 10/07/21 09:43 Dohle Bodies Not Reportable 10/07/21 09:43 [place]uet Anomaly Not Reportable 10/07/21 09:43 Marlene Rods Not Reportable 10/07/21 09:43 Platelet Estimate Consistent w auto 10/07/21 09:43 Clumped Platelets Not Reportable 10/07/21 09:43 Plt Clumps, EDTA Not Reportable 10/07/21 09:43 Large Platelets Not Reportable 10/07/21 09:43 Giant Platelets Not Reportable 10/07/21 09:43 Platelet Satelliting Not Reportable 10/07/21 09:43 Plt Morphology Comment Not Reportable 10/07/21 09:43 RBC Morphology Not Reportable 10/07/21 09:43 Dimorphic RBCs Not Reportable 10/07/21 09:43 Polychromasia Not Reportable 10/07/21 09:43 Hypochromasia Not Reportable 10/07/21 09:43 Poikilocytosis Not Reportable 10/07/21 09:43 Anisocytosis 1+ 10/07/21 09:43 Microcytosis Not Reportable 10/07/21 09:43 Macrocytosis Not Reportable 10/07/21 09:43 Spherocytes Not Reportable 10/07/21 09:43 Pappenheimer Bodies Not Reportable 10/07/21 09:43 Sickle Cells Not Reportable 10/07/21 09:43 Target Cells Not Reportable 10/07/21 09:43 Tear Drop Cells Not Reportable 10/07/21 09:43 Ovalocytes Not Reportable 10/07/21 09:43 Helmet Cells Not Reportable 10/07/21 09:43 [place] Bodies Not Reportable 10/07/21 09:43 [place] Rings Not Reportable 10/07/21 09:43 [place] Cells Not Reportable 10/07/21 09:43 Bite Cells Not Reportable 10/07/21 09:43 Crenated Cell Not Reportable 10/07/21 09:43 Elliptocytes Not Reportable 10/07/21 09:43 Acanthocytes (Spur) Not Reportable 10/07/21 09:43 Rouleaux Not Reportable 10/07/21 09:43 Hemoglobin C Crystals Not Reportable 10/07/21 09:43 Schistocytes Not Reportable 10/07/21 09:43 Malaria parasites Not Reportable 10/07/21 09:43 Flaco Bodies Not Reportable 10/07/21 09:43 Hem Pathologist Commnt No 10/07/21 09:43 PT 17.8 Sec. (12.2-14.9) H 10/05/21 04:40 INR 1.31 (0.87-1.13) H 10/05/21 04:40 Sodium 136 mmol/L (137-145) L 10/08/21 05:26 Potassium 4.2 mmol/L (3.6-5.0) 10/08/21 05:26 Chloride 102.4 mmol/L (98-107) 10/08/21 05:26 Carbon Dioxide 20 mmol/L (22-30) L 10/08/21 05:26 Anion Gap 18 mmol/L 10/08/21 05:26 BUN 31 mg/dL (7-17) H 10/08/21 05:26 Creatinine 1.7 mg/dL (0.6-1.2) H 10/08/21 05:26 Estimated GFR 42 ml/min 10/08/21 05:26 BUN/Creatinine Ratio 18 % 10/08/21 05:26 Glucose 134 mg/dL (65-100) H 10/08/21 05:26 POC Glucose 123 mg/dL (70-105) H 10/08/21 05:29 Lactic Acid 1.00 mmol/L (0.7-2.0) 09/24/21 21:54 Calcium 7.9 mg/dL (8.4-10.2) L 10/08/21 05:26 Phosphorus 4.60 mg/dL (2.5-4.5) H D 10/08/21 05:26 Magnesium 2.10 mg/dL (1.7-2.3) 10/08/21 05:26 Total Bilirubin 0.50 mg/dL (0.1-1.2) 10/05/21 04:40 AST 31 units/L (5-40) 10/05/21 04:40 ALT 11 units/L (7-56) 10/05/21 04:40 Alkaline Phosphatase 78 units/L (35-129) 10/05/21 04:40 Total Creatine Kinase 242 units/L (30-135) H 10/06/21 05:27 Total Protein 5.2 g/dL (6.3-8.2) L D 10/05/21 04:40 Albumin 1.8 g/dL (3.9-5) L 10/05/21 04:40 Albumin/Globulin Ratio 0.5 % 10/05/21 04:40 Urine Color Yellow (Yellow) 09/24/21 14:49 Urine Turbidity Slightly-cloudy (Clear) 09/24/21 14:49 Urine pH 6.0 (5.0-7.0) 09/24/21 14:49 Ur Specific [place] 1.017 (1.003-1.030) 09/24/21 14:49 Urine Protein 30 mg/dl mg/dL (Negative) 09/24/21 14:49 Urine Glucose (UA) Neg mg/dL (Negative) 09/24/21 14:49 Urine Ketones Neg mg/dL (Negative) 09/24/21 14:49 Urine Blood Neg (Negative) 09/24/21 14:49 Urine Nitrite Neg (Negative) 09/24/21 14:49 Ur Reducing Substances Not Reportable 09/24/21 14:49 Urine Bilirubin Neg (Negative) 09/24/21 14:49 Urine Ictotest Not Reportable 09/24/21 14:49 Urine Urobilinogen < 2.0 mg/dL (<2.0) 09/24/21 14:49 Ur Leukocyte Esterase Neg (Negative) 09/24/21 14:49 Urine WBC (Auto) 4.0 /HPF (0.0-6.0) 09/24/21 14:49 Urine RBC (Auto) 2.0 /HPF (0.0-6.0) 09/24/21 14:49 U Epithel Cells (Auto) 18.0 /HPF (0-13.0) H 09/24/21 14:49 Urine Mucus Few /HPF 09/24/21 14:49 Urine HCG, Qual Negative (Negative) 09/24/21 14:49 Blood Type A POSITIVE 10/04/21 13:30 Antibody Screen Negative 10/04/21 13:30 Crossmatch See Detail 10/04/21 13:30 Doss/IV: Voiding Method Indwelling Catheter Active Medications - Current Medications Current Medications: Generic Name Dose Route Start Last Admin Trade Name Freq PRN Reason Stop Dose Admin Albuterol 2.5 mg 09/24/21 18:07 Albuterol 2.5 Mg/3 Ml Nebu IH Q4HRT PRN Shortness Of Breath Dextrose 0 ml 10/03/21 12:37 Dextrose 10% *Hypoglycemia IV PRN PRN Hypoglycemia Diphenhydramine HCl 25 mg 10/04/21 15:14 10/07/21 00:34 Diphenhydramine 50 Mg/Ml Vial IV 25 mg Q6H PRN Administration Itching Heparin Sodium (Porcine) 5,000 unit 10/07/21 06:00 10/08/21 06:00 Heparin 5,000 Unit/1 Ml Vial SUB-Q 5,000 unit Q8HR JAZ Administration Hydromorphone HCl 1 mg 10/03/21 14:00 10/08/21 05:36 Hydromorphone 1 Mg/1 Ml Inj IV 1 mg Q3H PRN Administration Pain , Severe (7-10) Metronidazole 500 mg in 100 mls @ 100 mls/hr 10/02/21 16:00 10/08/21 08:17 Flagyl 500 Mg/100 Ml IV 100 mls/hr Q8H JAZ Administration Protocol Lactated Ringer's 1,000 mls @ 75 mls/hr 10/02/21 13:00 10/07/21 05:50 Lactated Ringers IV 125 mls/hr DIRECT JAZ Administration Daptomycin 700 mg/ Sodium 100 mls @ 200 mls/hr 10/04/21 12:00 10/07/21 09:16 Chloride IV 200 mls/hr Q24HR JAZ Administration Protocol Amino Acids/Electrolytes/Dextrose 2,400 mls @ 100 mls/hr 10/07/21 20:00 10/07/21 20:00 Tpn Adult IV 10/08/21 19:59 100 mls/hr DAILY@1999 JAZ Administration Protocol Acetaminophen 1,000 mg in 100 mls @ 200 mls/hr 10/07/21 13:00 10/08/21 08:14 Acetaminophen Iv IV 10/08/21 23:59 200 mls/hr Q6H JAZ Administration Insulin Human Regular 0 units 10/03/21 13:00 10/08/21 08:17 Insulin Regular, Human 100 Units/1 Ml SUB-Q Not Given Q6H [facility] Protocol Labetalol HCl 10 mg 10/01/21 08:31 10/01/21 10:02 Labetalol 20 Mg/4 Ml Inj IV 10 mg Q6H PRN Administration Hypertension Morphine Sulfate 3 mg 10/03/21 14:00 10/08/21 02:00 Morphine 4 Mg/1 Ml Inj IV 3 mg Q6H JAZ Administration Naloxone HCl 0.1 mg 10/03/21 14:00 Naloxone 0.4 Mg/1 Ml Inj IV Q2MIN PRN Res Rate </= 8 or 02 SAT < 92% Ondansetron HCl 4 mg 09/24/21 18:07 10/05/21 11:39 Ondansetron 4 Mg/2 Ml Inj IV 4 mg Q8H PRN Administration Nausea And Vomiting Pantoprazole Sodium 40 mg 10/04/21 19:00 10/07/21 09:07 Pantoprazole 40 Mg Inj IV 40 mg QDAY JAZ Administration Phenol 1 spray 10/02/21 13:00 10/03/21 10:23 Phenol 1.4% 177 Ml Bottle MM 1 spray PRN PRN Administration Sore Throat Scopolamine 1 each 10/04/21 10:00 10/07/21 14:14 Scopolamine Transdermal Patch 72 Hr TD 1 each Q3D JAZ Administration Sodium Chloride 10 ml 09/24/21 22:00 10/07/21 22:03 Sodium Chloride 0.9% 10 Ml Flush Syringe IV 10 ml BID JAZ Administration Sodium Chloride 10 ml 09/24/21 18:07 09/25/21 08:34 Sodium Chloride 0.9% 10 Ml Flush Syringe IV 10 ml PRN PRN Administration LINE FLUSH Nutrition/Malnutrition Assess - Dietary Evaluation Nutrition/Malnutrition Findings: Nutrition Notes Start: 09/25/21 15:31 Freq: Status: Active Protocol: Document 10/07/21 10:32 BIN (Rec: 10/07/21 10:39 IBN [id number]) Nutrition Notes Initial or Follow up Reassessment Current Diagnosis Acute Kidney Injury,Sepsis, Malnutrition Other Pertinent Diagnosis s/p Diverticulitis, s/p Hemicolectomy/Appendectomy/ Partial Omentectomy. Current Diet PPN @ 100mL/hr Labs/Tests 10/07:Na 136, CO2 20, BUN 29, Crea 1.9, Glu 140, Ca 7.6. Pertinent Medications 10/07: Albumin, others nutritionally unremarkable. Height 5 ft 7 in Weight 89.8 kg [place] Body Weight (kg) 61.36 BMI 31.0 Weight change and time frame No body weight changed reported. Weight Status Obese Subjective/Other Information RD consult for routine F/U on PPN. PPN continues as prescribed, well tolerated, according to RN notes. Pt still present ileus. Pt is NPO, but can have Ice chips PRN. Pt still reports nausea. Percent of energy/protein needs met: 55% Kcal; 93% AA. Burn Absent Trauma Absent GI Symptoms Nausea Food Allergy No Skin Integrity/Comment Surgical wound. Current % PO Other Minimum of two criteria No #1 Nutrition Diagnosis Altered GI function Diagnosis Progress(for reassessment Continues documentation) Is patient on ventilator? No Is Patient Ambulatory and/or Out of Bed Yes REE-([facility]-ambulatory/OOB) [ 2132.819 [id number]] Kcal/Kg value to use for calculation 20 Approximate Energy Requirements Using 1796 kcal/Kg Calculation Used for Recommendations Kcal/kg Additional Notes Protein: 1.2-1.5 g/Kg 91-114g/ day AdjBW. Fluids: 1 mL/Kcal, or as per MD. Nutrition Intervention Nutrition Support: Continue PPN @ 100mL/hr with: 3.5% AA 7.9% Dextrose Osmolarity: 883 Na: 60 mEq K: 100 mEq Ca:0 mEq M mEq Phos: 60 mmol Cl/Co2: 25%/75% MVI Kcal 986 Protein (gm) 85 Carbohydrates (gm) 190 Fat (gm) 0 Fluid (mL) 2,400 Fiber (gm) 0 % RDI: 55% Kcal; 93% AA. Goal #1 Provide at least 75% of energy /protein needs through Parenteral Feeding during LOS. Goal #2 Maintain body weight within +/ -3% of admission body weight during LOS. Follow-Up By: 10/08/21 Additional Comments Continue monitoring PPN tolerance and BM. BMP, Phos, Mg labs ordered.
--- NOTE | 2021-10-08 08:42 | Progress Note ---
Subjective Date of service: 10/08/21 Principal diagnosis: BRYANNA Interval history: new to our service hematuria 31 YO Female with Obesity presented to ED---Patient reports "I'm hurting". Patient states that she has experienced abdominal pain, lower back pain, nausea, and multiple episodes of vomiting over the past 1 day. Patient transported to [facility] via private vehicle for further care and evaluation of the aforementioned symptoms. The patient was seen and evaluated in the emergency department. All lab and imaging studies reviewed. Patient underwent CT scan of the abdomen and pelvis and was found to have acute diverticulitis complicated by sepsis. Patient admitted to medical floor and initiated on sepsis protocol. Surgery team consulted in ED. Patient denies fever, chills, chest pain, palpitation, productive cough, skin rash, recent ill contacts, ingestion of food/water from new or different sources, or known exposure to COVID-19. No prior admission for review. No medication listed at time of admission for reconciliation. status post laparoscopic converted to open left hemicolectomy with appendectomy for perforated appendicitis with fistulization to sigmoid colon this admission (Dr. Huddleston) CTAP )09-30-21)--normal gu tract RENAL US---NORMAL (10-07-21) abd - clean dressing urine appears concentrated A/P gross hematuria - improved appears more like ureteral contusion --- hold IVP, would still get cystogram Objective - Constitutional Vitals: Vital Signs - 12hr 10/07/21 10/07/21 10/08/21 21:43 22:00 02:35 Temperature 98.0 F Pulse Rate 93 H Respiratory 24 Rate Blood Pressure 145/86 O2 Sat by Pulse 100 99 100 Oximetry 10/08/21 04:12 Temperature 97.3 F L Pulse Rate 89 Respiratory 16 Rate Blood Pressure 166/105 O2 Sat by Pulse 100 Oximetry - Labs CBC & Chem 7: 10/08/21 05:26 10/08/21 05:26 Labs: Abnormal lab results 10/04/21 10/07/21 10/07/21 Range/Units 13:30 09:43 11:38 WBC 22.3 H (4.5-11.0) K/mm3 RBC 2.81 L (3.65-5.03) M/mm3 Hgb 7.8 L (10.1-14.3) gm/dl Hct 24.0 L (30.3-42.9) % MCH (28-32) pg RDW 16.5 H (13.2-15.2) % Plt Count 733 H (140-440) K/mm3 Seg Neuts % (Manual) 85.0 H (40.0-70.0) % Lymphocytes % (Manual) 1.0 L (13.4-35.0) % Seg Neutrophils # Man 19.0 H (1.8-7.7) K/mm3 Lymphocytes # (Manual) 0.2 L (1.2-5.4) K/mm3 Monocytes # (Manual) 1.6 H (0.0-0.8) K/mm3 Sodium (137-145) mmol/L Carbon Dioxide (22-30) mmol/L BUN (7-17) mg/dL Creatinine (0.6-1.2) mg/dL Glucose (65-100) mg/dL POC Glucose 126 H (70-105) mg/dL Calcium (8.4-10.2) mg/dL Phosphorus (2.5-4.5) mg/dL Crossmatch See Detail 10/07/21 10/08/21 10/08/21 Range/Units 17:44 00:20 05:26 WBC 21.8 H (4.5-11.0) K/mm3 RBC 2.84 L (3.65-5.03) M/mm3 Hgb 7.8 L (10.1-14.3) gm/dl Hct 24.1 L (30.3-42.9) % MCH 27 L (28-32) pg RDW 16.5 H (13.2-15.2) % Plt Count 789 H (140-440) K/mm3 Seg Neuts % (Manual) (40.0-70.0) % Lymphocytes % (Manual) (13.4-35.0) % Seg Neutrophils # Man (1.8-7.7) K/mm3 Lymphocytes # (Manual) (1.2-5.4) K/mm3 Monocytes # (Manual) (0.0-0.8) K/mm3 Sodium (137-145) mmol/L Carbon Dioxide (22-30) mmol/L BUN (7-17) mg/dL Creatinine (0.6-1.2) mg/dL Glucose (65-100) mg/dL POC Glucose 113 H 129 H (70-105) mg/dL Calcium (8.4-10.2) mg/dL Phosphorus (2.5-4.5) mg/dL Crossmatch 10/08/21 10/08/21 Range/Units 05:26 05:29 WBC (4.5-11.0) K/mm3 RBC (3.65-5.03) M/mm3 Hgb (10.1-14.3) gm/dl Hct (30.3-42.9) % MCH (28-32) pg RDW (13.2-15.2) % Plt Count (140-440) K/mm3 Seg Neuts % (Manual) (40.0-70.0) % Lymphocytes % (Manual) (13.4-35.0) % Seg Neutrophils # Man (1.8-7.7) K/mm3 Lymphocytes # (Manual) (1.2-5.4) K/mm3 Monocytes # (Manual) (0.0-0.8) K/mm3 Sodium 136 L (137-145) mmol/L Carbon Dioxide 20 L (22-30) mmol/L BUN 31 H (7-17) mg/dL Creatinine 1.7 H (0.6-1.2) mg/dL Glucose 134 H (65-100) mg/dL POC Glucose 123 H (70-105) mg/dL Calcium 7.9 L (8.4-10.2) mg/dL Phosphorus 4.60 H D (2.5-4.5) mg/dL Crossmatch Medications & Allergies - Medications Allergies/Adverse Reactions: Allergies No Known Allergies Allergy (Verified 09/24/21 12:21) Home Medications: Home Medications Medication Instructions Recorded Confirmed Last Taken Type No Known Home Medications [No 09/27/21 09/27/21 Unknown History Reported Home Medications] Active Medications: Generic Name Dose Route Start Last Admin Trade Name Freq PRN Reason Stop Dose Admin Albuterol 2.5 mg 09/24/21 18:07 Albuterol 2.5 Mg/3 Ml Nebu IH Q4HRT PRN Shortness Of Breath Dextrose 0 ml 10/03/21 12:37 Dextrose 10% *Hypoglycemia IV PRN PRN Hypoglycemia Diphenhydramine HCl 25 mg 10/04/21 15:14 10/07/21 00:34 Diphenhydramine 50 Mg/Ml Vial IV 25 mg Q6H PRN Administration Itching Heparin Sodium (Porcine) 5,000 unit 10/07/21 06:00 10/08/21 06:00 Heparin 5,000 Unit/1 Ml Vial SUB-Q 5,000 unit Q8HR JAZ Administration Hydromorphone HCl 1 mg 10/03/21 14:00 10/08/21 05:36 Hydromorphone 1 Mg/1 Ml Inj IV 1 mg Q3H PRN Administration Pain , Severe (7-10) Metronidazole 500 mg in 100 mls @ 100 mls/hr 10/02/21 16:00 10/08/21 08:17 Flagyl 500 Mg/100 Ml IV 100 mls/hr Q8H JAZ Administration Protocol Lactated Ringer's 1,000 mls @ 75 mls/hr 10/02/21 13:00 10/07/21 05:50 Lactated Ringers IV 125 mls/hr DIRECT JAZ Administration Daptomycin 700 mg/ Sodium 100 mls @ 200 mls/hr 10/04/21 12:00 10/07/21 09:16 Chloride IV 200 mls/hr Q24HR JAZ Administration Protocol Amino Acids/Electrolytes/Dextrose 2,400 mls @ 100 mls/hr 10/07/21 20:00 10/07/21 20:00 Tpn Adult IV 10/08/21 19:59 100 mls/hr DAILY@2000 JAZ Administration Protocol Acetaminophen 1,000 mg in 100 mls @ 200 mls/hr 10/07/21 13:00 10/08/21 08:14 Acetaminophen Iv IV 10/08/21 23:59 200 mls/hr Q6H JAZ Administration Insulin Human Regular 0 units 10/03/21 13:00 10/08/21 08:17 Insulin Regular, Human 100 Units/1 Ml SUB-Q Not Given Q6H JAZ Protocol Labetalol HCl 10 mg 10/01/21 08:31 10/01/21 10:02 Labetalol 20 Mg/4 Ml Inj IV 10 mg Q6H PRN Administration Hypertension Morphine Sulfate 3 mg 10/03/21 14:00 10/08/21 02:00 Morphine 4 Mg/1 Ml Inj IV 3 mg Q6H JAZ Administration Naloxone HCl 0.1 mg 10/03/21 14:00 Naloxone 0.4 Mg/1 Ml Inj IV Q2MIN PRN Res Rate </= 8 or 02 SAT < 92% Ondansetron HCl 4 mg 09/24/21 18:07 10/05/21 11:39 Ondansetron 4 Mg/2 Ml Inj IV 4 mg Q8H PRN Administration Nausea And Vomiting Pantoprazole Sodium 40 mg 10/04/21 19:00 10/07/21 09:07 Pantoprazole 40 Mg Inj IV 40 mg QDAY JAZ Administration Phenol 1 spray 10/02/21 13:00 10/03/21 10:23 Phenol 1.4% 177 Ml Bottle MM 1 spray PRN PRN Administration Sore Throat Scopolamine 1 each 10/04/21 10:00 10/07/21 14:14 Scopolamine Transdermal Patch 72 Hr TD 1 each Q3D JAZ Administration Sodium Chloride 10 ml 09/24/21 22:00 10/07/21 22:03 Sodium Chloride 0.9% 10 Ml Flush Syringe IV 10 ml BID JAZ Administration Sodium Chloride 10 ml 09/24/21 18:07 09/25/21 08:34 Sodium Chloride 0.9% 10 Ml Flush Syringe IV 10 ml PRN PRN Administration LINE FLUSH
[2021-10-08] MEDS: PANTOPRAZOLE 40 MG INJ IV SCH (09:08)
[2021-10-08] MEDS ORDERED: fentaNYL 25 MCG/HR PATCH 72HR TD SCH (14:00)
--- NOTE | 2021-10-08 14:05 | Progress Note ---
Assessment and Plan Cultures: Blood culture no growth so far Wound culture VRE A/P: 31-year-old female past medical history obesity, nephrolithiasis now with: #Acute sepsis: Present with leukocytosis and tachycardia. Secondary to intra- abdominal infection #Pericolonic abscesses with appendiceal rupture and fistulization: Status post washout of abscesses, cultures now with VRE. #BRYANNA: Renally dose medications #Obesity Recs: -Changed to linezolid due to poor response/possible pneumonia. -Continue metronidazole. -Given lack of improvement in white count so far would recommend repeat CT with contrast if ok with nephrology. Thank you for the consult, we will continue to follow. Josefina Perry MD [facility] O: [phone] F: [phone] Subjective Date of service: 10/08/21 Principal diagnosis: BRYANNA Interval history: Afebrile, white count remains elevated at 21.8. Objective - Exam Narrative Exam: Physical Exam: Constitutional: Alert, cooperative. No acute distress Head, Ears, Nose: Normocephalic, atraumatic. External ears, nose normal Eyes: Conjunctivae/corneas clear. No icterus. No ptosis. Neck: Supple, no meningeal signs Oral: dentition fair, no thrush Cardiovascular: S1, S2 normal. Respiratory: Good air entry, clear to auscultation bilaterally GI: Appropriately tender postoperatively, YURIDIA drain in place Musculoskeletal: No pedal edema, no cyanosis. Skin: No rash or abscess Hem/Lymphatic: No palpable cervical or supraclavicular nodes. No lymphangitis Psych: Mood ok. Affect normal Neurological: Awake, alert, oriented. No gross abnormality - Constitutional Vitals: Vital Signs Temp Pulse Resp BP Pulse Ox 97.6 F 89 22 157/103 100 10/08/21 13:13 10/08/21 13:22 10/08/21 13:13 10/08/21 13:22 10/08/21 13:13 Temperature -Last 24 Hours Temperature 97.6 F Temperature 97.3 F Temperature 98.0 F Temperature 98.5 F - Labs CBC & Chem 7: 10/08/21 05:26 10/08/21 05:26 Labs: Abnormal lab results 10/04/21 10/07/21 10/08/21 Range/Units 13:30 17:44 00:20 WBC (4.5-11.0) K/mm3 RBC (3.65-5.03) M/mm3 Hgb (10.1-14.3) gm/dl Hct (30.3-42.9) % MCH (28-32) pg RDW (13.2-15.2) % Plt Count (140-440) K/mm3 Sodium (137-145) mmol/L Carbon Dioxide (22-30) mmol/L BUN (7-17) mg/dL Creatinine (0.6-1.2) mg/dL Glucose (65-100) mg/dL POC Glucose 113 H 129 H (70-105) mg/dL Calcium (8.4-10.2) mg/dL Phosphorus (2.5-4.5) mg/dL Crossmatch See Detail 10/08/21 10/08/21 10/08/21 Range/Units 05:26 05:26 05:29 WBC 21.8 H (4.5-11.0) K/mm3 RBC 2.84 L (3.65-5.03) M/mm3 Hgb 7.8 L (10.1-14.3) gm/dl Hct 24.1 L (30.3-42.9) % MCH 27 L (28-32) pg RDW 16.5 H (13.2-15.2) % Plt Count 789 H (140-440) K/mm3 Sodium 136 L (137-145) mmol/L Carbon Dioxide 20 L (22-30) mmol/L BUN 31 H (7-17) mg/dL Creatinine 1.7 H (0.6-1.2) mg/dL Glucose 134 H (65-100) mg/dL POC Glucose 123 H (70-105) mg/dL Calcium 7.9 L (8.4-10.2) mg/dL Phosphorus 4.60 H D (2.5-4.5) mg/dL Crossmatch 10/08/21 Range/Units 11:53 WBC (4.5-11.0) K/mm3 RBC (3.65-5.03) M/mm3 Hgb (10.1-14.3) gm/dl Hct (30.3-42.9) % MCH (28-32) pg RDW (13.2-15.2) % Plt Count (140-440) K/mm3 Sodium (137-145) mmol/L Carbon Dioxide (22-30) mmol/L BUN (7-17) mg/dL Creatinine (0.6-1.2) mg/dL Glucose (65-100) mg/dL POC Glucose 128 H (70-105) mg/dL Calcium (8.4-10.2) mg/dL Phosphorus (2.5-4.5) mg/dL Crossmatch
--- NOTE | 2021-10-08 14:13 | Progress Note ---
Assessment and Plan Postop day #7 status post laparoscopic converted to open left hemicolectomy with appendectomy for perforated appendicitis with fistulization to sigmoid colon. Patient had one febrile episode and stable with decreasing tachycardia. Prolong ed postoperative ileus will await for return of bowel function. When passing flatus will transition to oral. Renal function improving slowly, continues to have good urine out put. Appreciate urology input, may plan for cysto to verify left urinary anatomy. Leukocytosis is stable with slight decrease compared to yesterday. Afebrile with resolution of tachycardia. Physical therapy saw patient. encourage more out of bed to chair. Subjective Date of service: 10/08/21 Narrative: No acute events overnight. Patient not had a fever in the last 24 hours. Patient says that her pain has improved compared to yesterday and this is the best she has felt in days. She denies any nausea vomiting. But also denies passing any flatus. Patient had a renal ultrasound that was unremarkable for any acute pathology. Objective Vital Signs - 12hr 10/08/21 10/08/21 10/08/21 02:35 04:12 10:25 Temperature 97.3 F L Pulse Rate 89 Respiratory 16 Rate Blood Pressure 166/105 O2 Sat by Pulse 100 100 100 Oximetry 10/08/21 10/08/21 13:13 13:22 Temperature 97.6 F Pulse Rate 89 89 Respiratory 22 Rate Blood Pressure 157/103 157/103 O2 Sat by Pulse 100 Oximetry - General physical appearance well developed, no distress, moderate pain - Eyes PERRL - ENT no hearing loss - Respiratory normal expansion, normal respiratory effort, other (getting O2 therapy treatment) - Abdomen soft, distended, not guarding, not rigid, other (midline incision intact with small amount serous drainage, appropriately tender to palpation. YURIDIA drain serous minimal output) - Genitourinary other (urine clear jeannie) - Musculoskeletal other (significant b/l LE anasarca) - Labs 10/08/21 05:26 10/08/21 05:26 Diabetes panel 10/08/21 Range/Units 05:26 Sodium 136 L (137-145) mmol/L Potassium 4.2 (3.6-5.0) mmol/L Chloride 102.4 (98-107) mmol/L Carbon Dioxide 20 L (22-30) mmol/L BUN 31 H (7-17) mg/dL Creatinine 1.7 H (0.6-1.2) mg/dL Glucose 134 H (65-100) mg/dL Calcium 7.9 L (8.4-10.2) mg/dL Calcium panel 10/08/21 Range/Units 05:26 Calcium 7.9 L (8.4-10.2) mg/dL Phosphorus 4.60 H D (2.5-4.5) mg/dL Pituitary panel 10/08/21 Range/Units 05:26 Sodium 136 L (137-145) mmol/L Potassium 4.2 (3.6-5.0) mmol/L Chloride 102.4 (98-107) mmol/L Carbon Dioxide 20 L (22-30) mmol/L BUN 31 H (7-17) mg/dL Creatinine 1.7 H (0.6-1.2) mg/dL Glucose 134 H (65-100) mg/dL Calcium 7.9 L (8.4-10.2) mg/dL Adrenal panel 10/08/21 Range/Units 05:26 Sodium 136 L (137-145) mmol/L Potassium 4.2 (3.6-5.0) mmol/L Chloride 102.4 (98-107) mmol/L Carbon Dioxide 20 L (22-30) mmol/L BUN 31 H (7-17) mg/dL Creatinine 1.7 H (0.6-1.2) mg/dL Glucose 134 H (65-100) mg/dL Calcium 7.9 L (8.4-10.2) mg/dL
--- NOTE | 2021-10-08 15:17 | Progress Note ---
Assessment and Plan - Patient Problems (1) Acute renal failure Current Visit: Yes Status: Acute Plan to address problem: Acute kidney injury likely 2/2 pre-renal azotemia with superimposed contrast induced nephropathy/ATN after repeated IV contrast exposure. urine lytes, urine protein/cr ratio pending. Patient with excellent urine output > 2L/day, renal function improving with Cr at 1.7 mg/dl. Cont supportive care for BRYANNA/ATN, avoid nephrotoxins, NSAIDs, maintain MAP > 65mmhg. As to the repeat CT with contrast, given worsening leukocytosis despite being on broadspectrum ABXs, benefits of CT A/P with IV contrast would outweigh the risks of worsening renal failure, especially in the setting of improving renal parameters/increased UOP. Will telly ar for CT w/ IV contrast with IV NS prior and post IV contrast exposure. D/w Dr Perry. (2) Sepsis Current Visit: Yes Status: Acute Plan to address problem: Daptomycin was changed to linezolid today due to poor response/possible pneumonia. pt continued on metronidazole. please ensure that the ABXs are dosed for current renal function (3) Appendicitis with perforation Current Visit: Yes Status: Acute Plan to address problem: laparoscopic converted to open left hemicolectomy with appendectomy (4) Hypoalbuminemia due to protein-calorie malnutrition Current Visit: Yes Status: Acute Plan to address problem: cont PPN. s/p albumin support 12.5g q8hrs x 2 days (5) Anemia Current Visit: Yes Status: Acute Plan to address problem: Transfuse with PRBCs prn to target Hb > 7 (6) Hypokalemia Current Visit: Yes Status: Acute Plan to address problem: K supplementation ongoing via PPN (7) Hypophosphatemia Current Visit: Yes Status: Acute Plan to address problem: PO4 improved s/p supplementation with Kphos Subjective Date of service: 10/08/21 Principal diagnosis: BRYANNA Interval history: Patient is awake, alert, oriented x 3, denies fever, chills, SOB, CP, currently on PPN. Urine output is excellent >2L/day Objective - Vital Signs Vital signs: Vital Signs - 12hr 10/08/21 10/08/21 10/08/21 04:12 10:00 10:25 Temperature 97.3 F L Pulse Rate 89 Respiratory 16 Rate Blood Pressure 166/105 O2 Sat by Pulse 100 97 100 Oximetry 10/08/21 10/08/21 10/08/21 13:13 13:22 14:58 Temperature 97.6 F Pulse Rate 89 89 Respiratory 22 Rate Blood Pressure 157/103 157/103 O2 Sat by Pulse 100 96 Oximetry - General Appearance General appearance: well-developed, appears stated age EENT: ATNC, PERRL, mucous membranes moist Neck: no JVD Respiratory: Present: Clear to Ascultation Cardiology: regular, S1S2 Gastrointestinal: normoactive bowel sounds Integumentary: no rash, other (+ edema b/l LE ) Neurologic: no focal deficit, alert and oriented x3, strength 5/5, CN 3-12 intact Psychiatric: mood/affect appropriate, cooperative - Lab 10/08/21 05:26 10/08/21 05:26 Most recent lab results Calcium 7.9 mg/dL (8.4-10.2) L 10/08/21 05:26 Phosphorus 4.60 mg/dL (2.5-4.5) H D 10/08/21 05:26 Magnesium 2.10 mg/dL (1.7-2.3) 10/08/21 05:26 Medications & Allergies - Medications Allergies/Adverse Reactions: Allergies No Known Allergies Allergy (Verified 09/24/21 12:21) Home Medications: Home Medications Medication Instructions Recorded Confirmed Last Taken Type No Known Home Medications [No 09/27/21 09/27/21 Unknown History Reported Home Medications] Active Medications: Generic Name Dose Route Start Last Admin Trade Name Freq PRN Reason Stop Dose Admin Albuterol 2.5 mg 09/24/21 18:07 Albuterol 2.5 Mg/3 Ml Nebu IH Q4HRT PRN Shortness Of Breath Dextrose 0 ml 10/03/21 12:37 Dextrose 10% *Hypoglycemia IV PRN PRN Hypoglycemia Diphenhydramine HCl 25 mg 10/04/21 15:14 10/07/21 00:34 Diphenhydramine 50 Mg/Ml Vial IV 25 mg Q6H PRN Administration Itching Fentanyl 1 applic 10/08/21 14:00 10/08/21 14:31 Fentanyl 25 Mcg/Hr Patch 72hr TD 1 applic Q3D JAZ Administration Heparin Sodium (Porcine) 5,000 unit 10/07/21 06:00 10/08/21 13:23 Heparin 5,000 Unit/1 Ml Vial SUB-Q 5,000 unit Q8HR JAZ Administration Hydromorphone HCl 1 mg 10/03/21 14:00 10/08/21 05:36 Hydromorphone 1 Mg/1 Ml Inj IV 1 mg Q3H PRN Administration Pain , Severe (7-10) Metronidazole 500 mg in 100 mls @ 100 mls/hr 10/02/21 16:00 10/08/21 08:17 Flagyl 500 Mg/100 Ml IV 100 mls/hr Q8H JAZ Administration Protocol Lactated Ringer's 1,000 mls @ 75 mls/hr 10/02/21 13:00 10/07/21 05:50 Lactated Ringers IV 125 mls/hr DIRECT JAZ Administration Amino Acids/Electrolytes/Dextrose 2,400 mls @ 100 mls/hr 10/07/21 20:00 10/07/21 20:00 Tpn Adult IV 10/08/21 19:59 100 mls/hr DAILY@1999 [facility] Administration Protocol Acetaminophen 1,000 mg in 100 mls @ 200 mls/hr 10/07/21 13:00 10/08/21 14:29 Acetaminophen Iv IV 10/08/21 23:59 200 mls/hr Q6H JAZ Administration Amino Acids/Electrolytes/Dextrose 2,400 mls @ 100 mls/hr 10/08/21 20:00 Tpn Adult IV 10/09/21 19:59 DAILY@1999 [facility] Protocol Linezolid 600 mg in 300 mls @ 300 mls/hr 10/08/21 15:00 Zyvox 600mg/300ml IV Q12H [facility] Protocol Insulin Human Regular 0 units 10/03/21 13:00 10/08/21 13:23 Insulin Regular, Human 100 Units/1 Ml SUB-Q Not Given Q6H [facility] Protocol Labetalol HCl 10 mg 10/01/21 08:31 10/08/21 13:22 Labetalol 20 Mg/4 Ml Inj IV 10 mg Q6H PRN Administration Hypertension Naloxone HCl 0.1 mg 10/03/21 14:00 Naloxone 0.4 Mg/1 Ml Inj IV Q2MIN PRN Res Rate </= 8 or 02 SAT < 92% Ondansetron HCl 4 mg 09/24/21 18:07 10/05/21 11:39 Ondansetron 4 Mg/2 Ml Inj IV 4 mg Q8H PRN Administration Nausea And Vomiting Pantoprazole Sodium 40 mg 10/04/21 19:00 10/08/21 09:08 Pantoprazole 40 Mg Inj IV 40 mg QDAY JAZ Administration Phenol 1 spray 10/02/21 13:00 10/03/21 10:23 Phenol 1.4% 177 Ml Bottle MM 1 spray PRN PRN Administration Sore Throat Scopolamine 1 each 10/04/21 10:00 10/07/21 14:14 Scopolamine Transdermal Patch 72 Hr TD 1 each Q3D JAZ Administration Sodium Chloride 10 ml 09/24/21 22:00 10/08/21 13:24 Sodium Chloride 0.9% 10 Ml Flush Syringe IV 10 ml BID JAZ Administration Sodium Chloride 10 ml 09/24/21 18:07 09/25/21 08:34 Sodium Chloride 0.9% 10 Ml Flush Syringe IV 10 ml PRN PRN Administration LINE FLUSH
[2021-10-08] MEDS: LINEZOLID 600 MG/300 ML BAG IV SCH (16:19)
--- NOTE | 2021-10-08 16:51 | XRay Report ---
ABDOMEN 1 VIEW(S) INDICATION / CLINICAL INFORMATION: f/u ileus. COMPARISON: 10/06/2021 FINDINGS: TUBES / LINES: NG tube in satisfactory position. BOWEL GAS PATTERN: Scattered gas remains with mildly distended loops of small bowel at the left midab domen. ADDITIONAL FINDINGS: No significant additional findings. Signer Name: Alfred Colin MD Signed: 10/08/2021 4:46 PM Workstation Name: [id number]
[2021-10-08] MEDS ORDERED: TOTAL PARENTERAL NUTRITION 2,400 ML IV SCH (20:00)
[2021-10-08] MEDS ORDERED: ETOMIDATE 20 MG/10 ML INJ IV ONE (20:30)
[2021-10-08] MEDS ORDERED: MIDAZOLAM 5 MG/5 ML INJ MDV IV ONE (20:30)
[2021-10-08] MEDS ORDERED: SUCCINYLCHOLINE CHLORIDE 200 MG/10 ML INJ MDV ONE (20:30)
[2021-10-08] MEDS ORDERED: LORazepam 2 MG/ML VIAL IV ONE (20:40)
[2021-10-08] MEDS ORDERED: NORepinephrine/NS 8 MG-250 ML 8 MG/250 ML INFUS..BTL IV ONE (20:50)
[2021-10-08] MEDS ORDERED: LORazepam 2 MG/ML VIAL ONE (20:57)
[2021-10-08] MEDS ORDERED: MINERAL OIL/PETROLATUM, WHITE OPHTH OINT 3.5 GM OU PRN ×2 (21:00→21:37)
--- NOTE | 2021-10-08 21:16 | Procedure Note ---
Date of procedure: 10/08/21 Pre-op diagnosis: Acute hypoxemic respiratory failure Post-op diagnosis: same Procedure: Right internal jugular vein triple-lumen catheter under ultrasound guidance Right internal jugular vein triple-lumen catheter placement under ultrasound guidance The patient was prepped and draped in the usual sterile fashion. A timeout was taken with the patient's assigned nurse to verify correct patient, correct procedure, and correct operative site. Local anesthesia was obtained with 1% lidocaine. Ultrasound was utilized to localize the right internal jugular vein without difficulty. The Seldinger technique was utilized to access the right internal jugular vein while using ultrasound guidance. A seeker needle was inserted into the right internal jugular vein under ultrasound guidance without difficulty. A guidewire was then advanced through the seeker needle into the right internal jugular vein and the seeker needle subsequently removed over the guidewire. A scalpel was used to incise the skin at the insertion site. A dilator was then passed over the guidewire into the right internal jugular vein and subsequently removed. A preflush triple-lumen catheter was then advanced into the right internal jugular vein without difficulty and the guidewire subsequently removed. A Biopatch was placed at the insertion site. 3-O silk suture was utilized to suture the triple-lumen catheter in place. All 3 ports flush and draw with ease. Postoperative x-ray conducted and reveals right internal jugular vein catheter in the SVC in good position. No pneumothorax. Complications none. Estimated blood loss minimal. Specimens none.
--- NOTE | 2021-10-08 21:16 | Procedure Note ---
Date of procedure: 10/08/21 Pre-op diagnosis: Acute hypoxemic respiratory failure Post-op diagnosis: same Procedure: Endotracheal intubation A timeout was taken with patient and son nurse present to justify correct patient, correct procedure, and correct operative site. Sedation achieved with 4 mg etomidate, 50 mg succinylcholine. And 2 mg of Versed. The glide scope was used and a 7.5 cm endotracheal tube was placed into the patient's airway without difficulty. Surgeon: LYNNETTE GOODRICH Pathology: none Condition: critical Disposition: ICU
--- NOTE | 2021-10-08 21:17 | Event Note ---
Date: 10/08/21 I was notified by nursing staff that the patient was found to be in acute respiratory distress. I presented to the bedside. The patient was found to have evidence of aspiration pneumonia with vomitus in the oropharynx. Patient initiated on sepsis protocol. 95 minutes critical care time dedicated to bedside patient care. All lab and imaging studies reviewed. Medical records reviewed.
--- NOTE | 2021-10-08 21:26 | XRay Report ---
CHEST 1 VIEW 10/08/2021 9:07 PM INDICATION / CLINICAL INFORMATION: ETT placement. COMPARISON: 10/06/2021 FINDINGS: SUPPORT DEVICES: ET tube has been placed with tip about 4 cm above the pablo. Right IJ CVL tip proje cts over the mid SVC. NG tube is seen extending below the diaphragm. HEART / MEDIASTINUM: No significant abnormality. LUNGS / PLEURA: Worsening bilateral perihilar opacities. No pneumothorax. ADDITIONAL FINDINGS: No significant additional findings. IMPRESSION: 1. Endotracheal tube in expected position. 2. Worsening bilateral perihilar opacities. Signer Name: Be Rankin MD Signed: 10/08/2021 9:22 PM Workstation Name: [id number]
[2021-10-08 21:37] LABS: ABG Base Excess -5.3 mmol/L (-2.0-3.0); ABG HCO3 19.5 mmol/L (20.0-26.0); ABG Methemoglobin 0.7 % (0.0-1.5); ABG Oxygen Saturation 70.7 % (95.0-99.0); ABG PCO2 34.6 mm Hg; ABG PH 7.368 pH Units (7.350-7.450); ABG PO2 43.8 mm Hg (80.0-90.0)
[2021-10-08] MEDS ORDERED: LIP THERAPY VASELINE TP PRN (21:37)
[2021-10-08 21:38] LABS: ABG Base Excess -9.6 mmol/L (-2.0-3.0); ABG HCO3 15.7 mmol/L (20.0-26.0); ABG Methemoglobin 0.3 % (0.0-1.5); ABG Oxygen Saturation 68 % (95.0-99.0); ABG PH 7.308 pH Units (7.350-7.450); ABG PO2 40.2 mm Hg (80.0-90.0)
[2021-10-08] MEDS ORDERED: ACETAMINOPHEN 325 MG TAB PO PRN (21:38)
[2021-10-08] MEDS ORDERED: SODIUM CHLORIDE 0.9% 1000 ML IV SOLN IV ONE (21:38)
[2021-10-08] MEDS ORDERED: HYDROmorphone 1 MG/1 ML INJ IV PRN (21:38)
[2021-10-08] MEDS ORDERED: metroNIDAZOLE/NS 500 MG/100 ML 500 MG/100 ML BAG IV SCH (22:00)
[2021-10-08] MEDS ORDERED: FAMOTIDINE 20 MG/2 ML INJ IV SCH (22:00)
[2021-10-08] MEDS ORDERED: SENNOSIDES/DOCUSATE SODIUM 8.6/50 MG TAB FEEDTUBE SCH (22:00)
[2021-10-08] MEDS ORDERED: VANCOMYCIN PHARMACY TO DOSE IV SCH (22:00)
[2021-10-08] MEDS: fentaNYL DRIP Premix 2,000 MCG/100 ML BAG IV SCH (22:26)
[2021-10-08] MEDS: VASOPRESSIN 20 UNIT in SODIUM CHLORIDE 0.9% 100 ML IV SCH (22:43)
[2021-10-08] MEDS: CEFEPIME/NS 2 GM/100 ML 2 GM/100 ML BAG IV SCH (23:15)
[2021-10-08] MEDS ORDERED: VANCOMYCIN 1,750 MG in SODIUM CHLORIDE 0.9% 500 ML 500 ML IV ONE (23:45)
[2021-10-08] MEDS ORDERED: NORepinephrine/NS 8 MG-250 ML 8 MG/250 ML INFUS..BTL IV SCH ×2 (23:45)
[2021-10-09] MEDS: metroNIDAZOLE/NS 500 MG/100 ML 500 MG/100 ML BAG IV SCH ×3 (01:15→18:49)
[2021-10-09] MEDS: INSULIN REGULAR, HUMAN 100 UNITS/1 ML SUB-Q SCH ×4 (01:59→18:37)
[2021-10-09] MEDS: FAMOTIDINE 20 MG/2 ML INJ IV SCH ×3 (02:11→21:18)
[2021-10-09] MEDS: fentaNYL DRIP Premix 2,000 MCG/100 ML BAG IV SCH ×4 (02:43→20:20)
[2021-10-09] MEDS: SENNOSIDES/DOCUSATE SODIUM 8.6/50 MG TAB FEEDTUBE SCH ×3 (03:03→21:18)
[2021-10-09 05:41] LABS: Hematocrit 23.1 % (30.3-42.9); Hemoglobin 7.4 gm/dl (10.1-14.3); Mean Corpuscular HGB Conc 32 % (30-34); Mean Corpuscular Volume 86 fl (79-97); Platelet Count 786 K/mm3 (140-440); Red Cell Distribution Width 16.6 % (13.2-15.2)
[2021-10-09] MEDS: HEPARIN 5,000 UNIT/1 ML VIAL SUB-Q SCH ×4 (05:56→21:18)
[2021-10-09 06:05] LABS: Albumin 2.3 g/dL (3.9-5); Calcium 7.5 mg/dL (8.4-10.2)
[2021-10-09] MEDS: LINEZOLID 600 MG/300 ML BAG IV SCH ×2 (06:30→15:55)
[2021-10-09] MEDS: ACETAMINOPHEN IV 1,000 MG/100 ML BOTTLE IV SCH (06:31)
--- NOTE | 2021-10-09 06:54 | Consultation ---
History of Present Illness Consult date: 10/09/21 Requesting physician: PAULIE HAY Reason for consult: other (Septic shock, acute hypoxemc resp failure) History of present illness: This is a 31-year-old female with past medical history of obesity and nephrolithiasis initially admitted to the floor for acute diverticulititis which was complicated by sepsis and acute kidney injury. 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 On 10/08/21 patient developed acute hypoxic respiratory failure requiring intubation and ventilatory support. Critical care consult was placed fro acute hypoxemic resp failure; Septic shock; acute renal failure Seen and examined. Discussed with respiratory and nursing staff. Per Rn she acutely desaturates when her head is up. No fevers overnight. Vitals, labs, medications, chart and imaging reviewed. Intubated and sedated, RASS -1 to -2. Recent CXR noted with worsen bilateral opacities with persistent leukocytosis, elevated lactic. On Vasopressin Acute hypoxemic resp failure PEEP +16/FIO2 80%, RR 30, Tv 500 On Fentanyl and Propofol TPN and NGT to LIS. Past History Past Medical History: other (See HPI) Past Surgical History: No surgical history, Other (Reviewed) Social history: single. denies: smoking, alcohol abuse, prescription drug abuse Family history: hypertension Medications and Allergies Allergies Allergy/AdvReac Type Severity Reaction Status Date / Time No Known Allergies Allergy Verified 09/24/21 12:21 Home Medications Medication Instructions Recorded Confirmed Last Taken Type No Known Home Medications [No 09/27/21 09/27/21 Unknown History Reported Home Medications] Active Meds: Active Medications Acetaminophen (Acetaminophen 325 Mg Tab) 650 mg PO Q6H PRN PRN Reason: Pain, Mild (1-3) Albuterol (Albuterol 2.5 Mg/3 Ml Nebu) 2.5 mg IH Q4HRT PRN PRN Reason: Shortness Of Breath Dextrose (Dextrose 10% *Hypoglycemia) 0 ml IV PRN PRN PRN Reason: Hypoglycemia Diphenhydramine HCl (Diphenhydramine 50 Mg/Ml Vial) 25 mg IV Q6H PRN PRN Reason: Itching Last Admin: 10/07/21 00:34 Dose: 25 mg Famotidine (Famotidine 20 Mg/2 Ml Inj) 20 mg IV BID [facility] Last Admin: 10/09/21 02:11 Dose: 20 mg Fentanyl (Fentanyl 100 Mcg/2 Ml Inj) 50 mcg IV Q10MIN PRN PRN Reason: ANALGESIA Heparin Sodium (Porcine) (Heparin 5,000 Unit/1 Ml Vial) 5,000 unit SUB-Q Q8HR JAZ Last Admin: 10/09/21 05:56 Dose: 5,000 unit Hydromorphone HCl (Hydromorphone 1 Mg/1 Ml Inj) 1 mg IV Q3H PRN PRN Reason: Pain , Severe (7-10) Last Admin: 10/08/21 17:31 Dose: 1 mg Hydromorphone HCl (Hydromorphone 1 Mg/1 Ml Inj) 0.25 mg IV Q4H PRN PRN Reason: Pain, Moderate (4-6) Hydrophilic Ointment (Lip Therapy Vaseline) 1 applic TP Q2HR PRN PRN Reason: Dry Lips Metronidazole (Flagyl 500 Mg/100 Ml) 500 mg in 100 mls @ 100 mls/hr IV Q8H JAZ; Protocol Last Admin: 10/09/21 01:15 Dose: 100 mls/hr Lactated Ringer's (Lactated Ringers) 1,000 mls @ 75 mls/hr IV DIRECT JAZ Last Admin: 10/07/21 05:50 Dose: 125 mls/hr Amino Acids/Electrolytes/Dextrose (Tpn Adult) 2,400 mls @ 100 mls/hr IV DAILY@2000 JAZ; Protocol Stop: 10/09/21 19:59 Last Admin: 10/08/21 23:48 Dose: 100 mls/hr Linezolid (Zyvox 600mg/300ml) 600 mg in 300 mls @ 300 mls/hr IV Q12H [facility]; Protocol Last Admin: 10/09/21 06:30 Dose: 300 mls/hr Propofol (Diprivan 10 Mg/Ml) 1,000 mg in 100 mls @ 2.694 mls/hr IV TITR [facility]; Protocol Last Admin: 10/09/21 06:08 Dose: 20 mcg/kg/min, 10.776 mls/hr Cefepime HCl (Cefepime/Ns 2 Gm/100 Ml) 2 gm in 100 mls @ 200 mls/hr IV Q12H [facility]; Protocol Last Admin: 10/08/21 23:15 Dose: 200 mls/hr Fentanyl Citrate (Fentanyl Drip Premix) 2,000 mcg in 100 mls @ 4.49 mls/hr IV TITR JAZ; Protocol Last Admin: 10/09/21 02:43 Dose: 1 mcg/kg/hr, 4.49 mls/hr Vasopressin 20 unit/ Sodium (Chloride) 101 mls @ 9.09 mls/hr IV TITR JAZ; Kiera col Last Admin: 10/08/21 22:43 Dose: 0.03 units/min, 9.09 mls/hr NORepinephrine/NS 8 MG-250 ML (Norepinephrine/Ns 8 Mg-250 Ml (Double Conc)) 8 mg in 250 mls @ 3.75 mls/hr IV TITRATE JAZ; Protocol Insulin Human Regular (Insulin Regular, Human 100 Units/1 Ml) 0 units SUB-Q Q6H JAZ; Protocol Last Admin: 10/09/21 01:59 Dose: 2 units Labetalol HCl (Labetalol 20 Mg/4 Ml Inj) 10 mg IV Q6H PRN PRN Reason: Hypertension Last Admin: 10/08/21 13:22 Dose: 10 mg Multi-Ingred Cream/Lotion/Oil/Oint (Mineral Oil/Petrolatum, White Ophth Oint 3.5 Gm) 1 applic OU Q4HR PRN PRN Reason: Dry Eye(s) Naloxone HCl (Naloxone 0.4 Mg/1 Ml Inj) 0.1 mg IV Q2MIN PRN PRN Reason: Res Rate </= 8 or 02 SAT < 92% Ondansetron HCl (Ondansetron 4 Mg/2 Ml Inj) 4 mg IV Q8H PRN PRN Reason: Nausea And Vomiting Last Admin: 10/05/21 11:39 Dose: 4 mg Phenol (Phenol 1.4% 177 Ml Bottle) 1 spray MM PRN PRN PRN Reason: Sore Throat Last Admin: 10/03/21 10:23 Dose: 1 spray Scopolamine (Scopolamine Transdermal Patch 72 Hr) 1 each TD Q3D JAZ Last Admin: 10/07/21 14:14 Dose: 1 each Senna/Docusate Sodium (Sennosides/Docusate Sodium 8.6/50 Mg Tab) 1 tab FEEDTUBE BID [facility] Last Admin: 10/09/21 03:03 Dose: Not Given Sodium Chloride (Sodium Chloride 0.9% 10 Ml Flush Syringe) 10 ml IV BID [facility] Last Admin: 10/09/21 02:12 Dose: 10 ml Sodium Chloride (Sodium Chloride 0.9% 10 Ml Flush Syringe) 10 ml IV PRN PRN PRN Reason: LINE FLUSH Last Admin: 09/25/21 08:34 Dose: 10 ml Review of Systems ROS unobtainable: due to endotracheal tube, due to mental status Physical Examination Vital signs: Vital Signs Temp Pulse Resp BP Pulse Ox 98.0 F 118 H 18 109/71 99 09/24/21 12:20 09/24/21 12:20 09/24/21 12:20 09/24/21 12:20 09/24/21 12:20 General appearance: other (Orally intuabted, ) Eyes: non-icteric ENT: oropharynx dry, other (orally intubated ETT 7.5cm @24 at the lip) Neck: supple, other (RIJCVL) Effort: mildly labored Ascultation: Bilateral: diminished breath sounds, rhonchi Cardiovascular: regular rate and rhythm, other (S1,S2) Gastrointestinal: hypoactive bowel sounds, other (YURIDIA drains, anterior abdominal dressings, Doss catheter) Integumentary: other (tatooed) Extremities: cool, edema other (sedated) other (Unable to assess psych) Results - Laboratory Findings CBC and BMP: 10/09/21 05:31 10/09/21 05:31 ABG ABG pH 7.368 pH Units (7.350-7.450) 10/08/21 21:30 ABG pCO2 34.6 mm Hg 10/08/21 21:30 ABG pO2 43.8 mm Hg (80.0-90.0) L 10/08/21 21:30 ABG O2 Saturation 70.7 % (95.0-99.0) L 10/08/21 21:30 PT/INR, D-dimer PT 17.8 Sec. (12.2-14.9) H 10/05/21 04:40 INR 1.31 (0.87-1.13) H 10/05/21 04:40 Abnormal lab findings: Abnormal Labs 09/24/21 09/24/21 09/24/21 14:49 14:58 14:58 WBC 32.4 H RBC Hgb Hct MCH RDW Plt Count 535 H [place] # (Auto) Seg Neutrophils % Seg Neuts % (Manual) 82.0 H Lymphocytes % (Manual) 2.0 L Monocytes % (Manual) Nucleated RBC % Seg Neutrophils # Seg Neutrophils # Man 26.6 H Lymphocytes # (Manual) 0.6 L Monocytes # (Manual) 1.6 H PT INR ABG pH ABG pO2 ABG HCO3 ABG O2 Saturation ABG Base Excess ABG Hemoglobin Oxyhemoglobin Sodium 134 L Potassium 3.5 L Chloride 97.6 L Carbon Dioxide BUN Creatinine Glucose 119 H POC Glucose Lactic Acid Calcium Phosphorus Magnesium Total Creatine Kinase Total Protein 6.1 L Albumin 3.3 L U Epithel Cells (Auto) 18.0 H Crossmatch 09/25/21 09/25/21 09/26/21 05:47 05:47 04:20 WBC 25.4 H 23.6 H RBC 3.54 L Hgb Hct MCH RDW Plt Count 466 H 486 H [place] # (Auto) Seg Neutrophils % Seg Neuts % (Manual) 93.0 H 86.0 H Lymphocytes % (Manual) 4.0 L 3.0 L Monocytes % (Manual) Nucleated RBC % Seg Neutrophils # Seg Neutrophils # Man 23.6 H 20.3 H Lymphocytes # (Manual) 1.0 L 0.7 L Monocytes # (Manual) 0.9 H PT INR ABG pH ABG pO2 ABG HCO3 ABG O2 Saturation ABG Base Excess ABG Hemoglobin Oxyhemoglobin Sodium 136 L Potassium 3.0 L Chloride Carbon Dioxide 21 L BUN Creatinine Glucose POC Glucose Lactic Acid Calcium 7.8 L Phosphorus Magnesium Total Creatine Kinase Total Protein Albumin U Epithel Cells (Auto) Crossmatch 09/26/21 09/27/21 09/27/21 04:20 08:28 08:28 WBC 20.6 H RBC 3.42 L Hgb 9.9 L Hct 29.5 L D MCH RDW Plt Count [place] # (Auto) Seg Neutrophils % Seg Neuts % (Manual) 94.1 H Lymphocytes % (Manual) 1.0 L Monocytes % (Manual) Nucleated RBC % Seg Neutrophils # Seg Neutrophils # Man 19.4 H Lymphocytes # (Manual) 0.2 L Monocytes # (Manual) PT INR ABG pH ABG pO2 ABG HCO3 ABG O2 Saturation ABG Base Excess ABG Hemoglobin Oxyhemoglobin Sodium Potassium 3.2 L Chloride Carbon Dioxide 20 L BUN Creatinine Glucose 137 H POC Glucose Lactic Acid Calcium 8.3 L 8.2 L Phosphorus Magnesium Total Creatine Kinase Total Protein Albumin U Epithel Cells (Auto) Crossmatch 09/28/21 09/28/21 09/29/21 04:55 15:35 07:02 WBC 15.1 H 16.5 H RBC 3.34 L 3.20 L Hgb 9.3 L 9.1 L Hct 28.7 L 27.3 L MCH RDW 15.3 H Plt Count 444 H 469 H [place] # (Auto) 0.9 H Seg Neutrophils % 89.3 H Seg Neuts % (Manual) 88.0 H 80.0 H Lymphocytes % (Manual) 9.0 L 8.0 L Monocytes % (Manual) Nucleated RBC % Seg Neutrophils # 14.0 H Seg Neutrophils # Man 13.3 H 13.2 H Lymphocytes # (Manual) Monocytes # (Manual) PT INR ABG pH ABG pO2 ABG HCO3 ABG O2 Saturation ABG Base Excess ABG Hemoglobin Oxyhemoglobin Sodium Potassium 3.3 L Chloride 109.4 H Carbon Dioxide 20 L BUN Creatinine 0.5 L Glucose POC Glucose Lactic Acid Calcium 7.9 L Phosphorus Magnesium Total Creatine Kinase Total Protein Albumin U Epithel Cells (Auto) Crossmatch 09/30/21 09/30/21 10/01/21 05:40 05:40 07:49 WBC 17.4 H 17.9 H RBC 3.37 L 3.32 L Hgb 9.2 L 9.3 L Hct 28.4 L 28.3 L MCH 27 L RDW 15.4 H 15.5 H Plt Count 530 H 604 H [place] # (Auto) Seg Neutrophils % Seg Neuts % (Manual) 91.0 H 72.0 H Lymphocytes % (Manual) 9.0 L 1.0 L Monocytes % (Manual) 8.0 H Nucleated RBC % 1.0 H Seg Neutrophils # Seg Neutrophils # Man 15.8 H 12.9 H Lymphocytes # (Manual) 0.2 L Monocytes # (Manual) 1.4 H PT INR ABG pH ABG pO2 ABG HCO3 ABG O2 Saturation ABG Base Excess ABG Hemoglobin Oxyhemoglobin Sodium Potassium 3.5 L Chloride Carbon Dioxide 21 L BUN Creatinine 0.5 L Glucose POC Glucose Lactic Acid Calcium 8.0 L Phosphorus Magnesium Total Creatine Kinase Total Protein Albumin U Epithel Cells (Auto) Crossmatch 10/01/21 10/01/21 10/02/21 07:49 10:45 05:41 WBC 23.2 H RBC 2.90 L Hgb 7.9 L Hct 24.8 L MCH 27 L RDW 15.3 H Plt Count 621 H [place] # (Auto) Seg Neutrophils % Seg Neuts % (Manual) 88.0 H Lymphocytes % (Manual) 2.0 L Monocytes % (Manual) Nucleated RBC % Seg Neutrophils # Seg Neutrophils # Man 20.4 H Lymphocytes # (Manual) 0.5 L Monocytes # (Manual) 1.4 H PT INR ABG pH ABG pO2 ABG HCO3 ABG O2 Saturation ABG Base Excess ABG Hemoglobin Oxyhemoglobin Sodium Potassium Chloride Carbon Dioxide 20 L BUN Creatinine 0.5 L Glucose POC Glucose Lactic Acid Calcium 7.6 L Phosphorus Magnesium Total Creatine Kinase Total Protein Albumin U Epithel Cells (Auto) Crossmatch See Detail 10/02/21 10/02/21 10/02/21 05:41 07:47 11:10 WBC RBC Hgb Hct MCH RDW Plt Count [place] # (Auto) Seg Neutrophils % Seg Neuts % (Manual) Lymphocytes % (Manual) Monocytes % (Manual) Nucleated RBC % Seg Neutrophils # Seg Neutrophils # Man Lymphocytes # (Manual) Monocytes # (Manual) PT INR ABG pH ABG pO2 ABG HCO3 ABG O2 Saturation ABG Base Excess ABG Hemoglobin Oxyhemoglobin Sodium Potassium Chloride Carbon Dioxide BUN Creatinine Glucose 130 H POC Glucose 145 H 120 H Lactic Acid Calcium 6.9 L Phosphorus Magnesium Total Creatine Kinase Total Protein Albumin U Epithel Cells (Auto) Crossmatch 10/02/21 10/03/21 10/03/21 16:14 04:55 04:55 WBC 26.1 H RBC 2.31 L Hgb 6.3 L Hct 19.8 L* MCH RDW 15.9 H Plt Count 598 H [place] # (Auto) Seg Neutrophils % Seg Neuts % (Manual) 82.0 H Lymphocytes % (Manual) 1.0 L Monocytes % (Manual) 10.0 H Nucleated RBC % Seg Neutrophils # Seg Neutrophils # Man 21.4 H Lymphocytes # (Manual) 0.3 L Monocytes # (Manual) 2.6 H PT INR ABG pH ABG pO2 ABG HCO3 ABG O2 Saturation ABG Base Excess ABG Hemoglobin Oxyhemoglobin Sodium Potassium Chloride Carbon Dioxide BUN 22 H Creatinine 1.7 H D Glucose 145 H POC Glucose 109 H Lactic Acid Calcium 6.4 L Phosphorus Magnesium 2.40 H Total Creatine Kinase Total Protein 4.2 L Albumin 1.6 L U Epithel Cells (Auto) Crossmatch 10/03/21 10/03/21 10/03/21 07:15 11:49 17:06 WBC RBC Hgb Hct MCH RDW Plt Count [place] # (Auto) Seg Neutrophils % Seg Neuts % (Manual) Lymphocytes % (Manual) Monocytes % (Manual) Nucleated RBC % Seg Neutrophils # Seg Neutrophils # Man Lymphocytes # (Manual) Monocytes # (Manual) PT INR ABG pH ABG pO2 ABG HCO3 ABG O2 Saturation ABG Base Excess ABG Hemoglobin Oxyhemoglobin Sodium Potassium Chloride Carbon Dioxide BUN Creatinine Glucose POC Glucose 162 H 171 H 174 H Lactic Acid Calcium Phosphorus Magnesium Total Creatine Kinase Total Protein Albumin U Epithel Cells (Auto) Crossmatch 10/03/21 10/04/21 10/04/21 23:31 04:44 04:44 WBC 26.4 H RBC 2.33 L Hgb 6.6 L Hct 19.4 L* MCH RDW 16.1 H Plt Count 602 H [place] # (Auto) Seg Neutrophils % Seg Neuts % (Manual) 80.0 H Lymphocytes % (Manual) 5.0 L Monocytes % (Manual) Nucleated RBC % Seg Neutrophils # Seg Neutrophils # Man 21.1 H Lymphocytes # (Manual) Monocytes # (Manual) 1.8 H PT INR ABG pH ABG pO2 ABG HCO3 ABG O2 Saturation ABG Base Excess ABG Hemoglobin Oxyhemoglobin Sodium 135 L Potassium 3.4 L Chloride Carbon Dioxide 21 L BUN 28 H Creatinine 2.0 H Glucose 171 H POC Glucose 179 H Lactic Acid Calcium 6.7 L Phosphorus 1.30 L D Magnesium 2.40 H Total Creatine Kinase Total Protein Albumin U Epithel Cells (Auto) Crossmatch 10/04/21 10/04/21 10/04/21 05:25 12:01 13:30 WBC RBC Hgb Hct MCH RDW Plt Count [place] # (Auto) Seg Neutrophils % Seg Neuts % (Manual) Lymphocytes % (Manual) Monocytes % (Manual) Nucleated RBC % Seg Neutrophils # Seg Neutrophils # Man Lymphocytes # (Manual) Monocytes # (Manual) PT INR ABG pH ABG pO2 ABG HCO3 ABG O2 Saturation ABG Base Excess ABG Hemoglobin Oxyhemoglobin Sodium Potassium Chloride Carbon Dioxide BUN Creatinine Glucose POC Glucose 174 H 172 H Lactic Acid Calcium Phosphorus Magnesium Total Creatine Kinase Total Protein Albumin U Epithel Cells (Auto) Crossmatch See Detail 10/04/21 10/04/21 10/04/21 16:47 20:28 22:23 WBC RBC Hgb 8.5 L Hct 25.1 L MCH RDW Plt Count [place] # (Auto) Seg Neutrophils % Seg Neuts % (Manual) Lymphocytes % (Manual) Monocytes % (Manual) Nucleated RBC % Seg Neutrophils # Seg Neutrophils # Man Lymphocytes # (Manual) Monocytes # (Manual) PT INR ABG pH ABG pO2 ABG HCO3 ABG O2 Saturation ABG Base Excess ABG Hemoglobin Oxyhemoglobin Sodium Potassium Chloride Carbon Dioxide BUN Creatinine Glucose POC Glucose 135 H 152 H Lactic Acid Calcium Phosphorus Magnesium Total Creatine Kinase Total Protein Albumin U Epithel Cells (Auto) Crossmatch 10/05/21 10/05/21 10/05/21 04:40 04:40 04:40 WBC 24.7 H RBC 3.02 L Hgb 8.4 L Hct 25.5 L MCH RDW 16.2 H Plt Count 644 H [place] # (Auto) Seg Neutrophils % Seg Neuts % (Manual) 91.0 H Lymphocytes % (Manual) 7.0 L Monocytes % (Manual) Nucleated RBC % Seg Neutrophils # Seg Neutrophils # Man 22.5 H Lymphocytes # (Manual) Monocytes # (Manual) PT 17.8 H INR 1.31 H ABG pH ABG pO2 ABG HCO3 ABG O2 Saturation ABG Base Excess ABG Hemoglobin Oxyhemoglobin Sodium 135 L Potassium Chloride Carbon Dioxide BUN 29 H Creatinine 2.1 H Glucose 156 H POC Glucose Lactic Acid Calcium 7.6 L Phosphorus 1.90 L D Magnesium Total Creatine Kinase Total Protein 5.2 L D Albumin 1.8 L U Epithel Cells (Auto) Crossmatch 10/05/21 10/05/21 10/05/21 05:08 18:17 23:37 WBC RBC Hgb Hct MCH RDW Plt Count [place] # (Auto) Seg Neutrophils % Seg Neuts % (Manual) Lymphocytes % (Manual) Monocytes % (Manual) Nucleated RBC % Seg Neutrophils # Seg Neutrophils # Man Lymphocytes # (Manual) Monocytes # (Manual) PT INR ABG pH ABG pO2 ABG HCO3 ABG O2 Saturation ABG Base Excess ABG Hemoglobin Oxyhemoglobin Sodium Potassium Chloride Carbon Dioxide BUN Creatinine Glucose POC Glucose 156 H 119 H 130 H Lactic Acid Calcium Phosphorus Magnesium Total Creatine Kinase Total Protein Albumin U Epithel Cells (Auto) Crossmatch 10/06/21 10/06/21 10/06/21 04:27 05:27 05:27 WBC 23.4 H RBC 2.84 L Hgb 7.8 L Hct 23.9 L MCH RDW 16.2 H Plt Count 712 H [place] # (Auto) Seg Neutrophils % Seg Neuts % (Manual) Lymphocytes % (Manual) Monocytes % (Manual) Nucleated RBC % Seg Neutrophils # Seg Neutrophils # Man Lymphocytes # (Manual) Monocytes # (Manual) PT INR ABG pH ABG pO2 ABG HCO3 ABG O2 Saturation ABG Base Excess ABG Hemoglobin Oxyhemoglobin Sodium 134 L Potassium Chloride Carbon Dioxide 20 L BUN 28 H Creatinine 1.9 H Glucose 132 H POC Glucose 132 H Lactic Acid Calcium 7.8 L Phosphorus Magnesium Total Creatine Kinase 242 H Total Protein Albumin U Epithel Cells (Auto) Crossmatch 10/06/21 10/06/21 10/06/21 16:40 20:50 23:39 WBC RBC Hgb Hct MCH RDW Plt Count [place] # (Auto) Seg Neutrophils % Seg Neuts % (Manual) Lymphocytes % (Manual) Monocytes % (Manual) Nucleated RBC % Seg Neutrophils # Seg Neutrophils # Man Lymphocytes # (Manual) Monocytes # (Manual) PT INR ABG pH ABG pO2 ABG HCO3 ABG O2 Saturation ABG Base Excess ABG Hemoglobin Oxyhemoglobin Sodium Potassium Chloride Carbon Dioxide BUN Creatinine Glucose POC Glucose 133 H 116 H 132 H Lactic Acid Calcium Phosphorus Magnesium Total Creatine Kinase Total Protein Albumin U Epithel Cells (Auto) Crossmatch 10/07/21 10/07/21 10/07/21 05:09 05:13 09:43 WBC 22.3 H RBC 2.81 L Hgb 7.8 L Hct 24.0 L MCH RDW 16.5 H Plt Count 733 H [place] # (Auto) Seg Neutrophils % Seg Neuts % (Manual) 85.0 H Lymphocytes % (Manual) 1.0 L Monocytes % (Manual) Nucleated RBC % Seg Neutrophils # Seg Neutrophils # Man 19.0 H Lymphocytes # (Manual) 0.2 L Monocytes # (Manual) 1.6 H PT INR ABG pH ABG pO2 ABG HCO3 ABG O2 Saturation ABG Base Excess ABG Hemoglobin Oxyhemoglobin Sodium 136 L Potassium Chloride Carbon Dioxide 20 L BUN 29 H Creatinine 1.9 H Glucose 140 H POC Glucose 139 H Lactic Acid Calcium 7.6 L Phosphorus Magnesium Total Creatine Kinase Total Protein Albumin U Epithel Cells (Auto) Crossmatch 10/07/21 10/07/21 10/08/21 11:38 17:44 00:20 WBC RBC Hgb Hct MCH RDW Plt Count [place] # (Auto) Seg Neutrophils % Seg Neuts % (Manual) Lymphocytes % (Manual) Monocytes % (Manual) Nucleated RBC % Seg Neutrophils # Seg Neutrophils # Man Lymphocytes # (Manual) Monocytes # (Manual) PT INR ABG pH ABG pO2 ABG HCO3 ABG O2 Saturation ABG Base Excess ABG Hemoglobin Oxyhemoglobin Sodium Potassium Chloride Carbon Dioxide BUN Creatinine Glucose POC Glucose 126 H 113 H 129 H Lactic Acid Calcium Phosphorus Magnesium Total Creatine Kinase Total Protein Albumin U Epithel Cells (Auto) Crossmatch 10/08/21 10/08/21 10/08/21 05:26 05:26 05:29 WBC 21.8 H RBC 2.84 L Hgb 7.8 L Hct 24.1 L MCH 27 L RDW 16.5 H Plt Count 789 H [place] # (Auto) Seg Neutrophils % Seg Neuts % (Manual) Lymphocytes % (Manual) Monocytes % (Manual) Nucleated RBC % Seg Neutrophils # Seg Neutrophils # Man Lymphocytes # (Manual) Monocytes # (Manual) PT INR ABG pH ABG pO2 ABG HCO3 ABG O2 Saturation ABG Base Excess ABG Hemoglobin Oxyhemoglobin Sodium 136 L Potassium Chloride Carbon Dioxide 20 L BUN 31 H Creatinine 1.7 H Glucose 134 H POC Glucose 123 H Lactic Acid Calcium 7.9 L Phosphorus 4.60 H D Magnesium Total Creatine Kinase Total Protein Albumin U Epithel Cells (Auto) Crossmatch 10/08/21 10/08/21 10/08/21 11:53 17:07 20:08 WBC RBC Hgb Hct MCH RDW Plt Count [place] # (Auto) Seg Neutrophils % Seg Neuts % (Manual) Lymphocytes % (Manual) Monocytes % (Manual) Nucleated RBC % Seg Neutrophils # Seg Neutrophils # Man Lymphocytes # (Manual) Monocytes # (Manual) PT INR ABG pH 7.308 L ABG pO2 40.2 L ABG HCO3 15.7 L ABG O2 Saturation 68 L ABG Base Excess -9.6 L ABG Hemoglobin 9.7 L Oxyhemoglobin 67.8 L Sodium Potassium Chloride Carbon Dioxide BUN Creatinine Glucose POC Glucose 128 H 139 H Lactic Acid Calcium Phosphorus Magnesium Total Creatine Kinase Total Protein Albumin U Epithel Cells (Auto) Crossmatch 10/08/21 10/08/21 10/09/21 21:30 22:55 03:12 WBC RBC Hgb Hct MCH RDW Plt Count [place] # (Auto) Seg Neutrophils % Seg Neuts % (Manual) Lymphocytes % (Manual) Monocytes % (Manual) Nucleated RBC % Seg Neutrophils # Seg Neutrophils # Man Lymphocytes # (Manual) Monocytes # (Manual) PT INR ABG pH ABG pO2 43.8 L ABG HCO3 19.5 L ABG O2 Saturation 70.7 L ABG Base Excess -5.3 L ABG Hemoglobin 8.6 L Oxyhemoglobin 69.4 L Sodium Potassium Chloride Carbon Dioxide BUN Creatinine Glucose POC Glucose 190 H Lactic Acid 2.50 H* Calcium Phosphorus Magnesium Total Creatine Kinase Total Protein Albumin U Epithel Cells (Auto) Crossmatch 10/09/21 10/09/21 05:31 05:31 WBC 20.3 H RBC 2.70 L Hgb 7.4 L Hct 23.1 L MCH 27 L RDW 16.6 H Plt Count 786 H [place] # (Auto) Seg Neutrophils % Seg Neuts % (Manual) Lymphocytes % (Manual) Monocytes % (Manual) Nucleated RBC % Seg Neutrophils # Seg Neutrophils # Man Lymphocytes # (Manual) Monocytes # (Manual) PT INR ABG pH ABG pO2 ABG HCO3 ABG O2 Saturation ABG Base Excess ABG Hemoglobin Oxyhemoglobin Sodium 136 L Potassium Chloride Carbon Dioxide 20 L BUN 32 H Creatinine 1.5 H Glucose 214 H POC Glucose Lactic Acid Calcium 7.5 L Phosphorus Magnesium Total Creatine Kinase Total Protein 5.8 L Albumin 2.3 L U Epithel Cells (Auto) Crossmatch - Diagnostic Findings Chest x-ray: image reviewed (Bilateral alverola infiltrates, pleural effusion( small), ETT and RIJ CVL) 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 Open left hemicolectomy and partial omentectomy Peritonitis Leukocytosis Diverticulitis with absces -CT abd/pelvis showed diverticulitis with abscess -General surgery following, assistance appreciated -s/p diagnositic laparatomy and drain placement 09/26/2021 Returned to the OR on 09/30/2021 for left hemicolectomy, appendectomy, and partial omentectomy -Wound culture +VRE Acute renal failure 2/ ATN/Vasomotor nephropathy Acute blood loss anemia Gross Hematuria-resolved -2 to surgical procedures-- c/f ureteral injury -s/p 3 units of pRBCs since admission - continue to titrate supplemental oxygen to keep SPO2 88-90% - VAP bundle addressed, aspiration precautions, HOB >40 -Monitor airway pressures, wean down PEEP to 14, decrease tidal volume to 6ml/kg -ABG in 2 hours post vent cahnges -CXR in am -Volume resuscitation while on vasopressor -Titrate vasopressor support to MAP>65 -trend temperature curve, trend WCC -Antibiotics per ID. -NPO, TPN for nutritional support - continue bronchodilators with pulmonary hygiene per RT - Accuchecks with glycemic control per SSI (While critically ill target blood glucose of 140-180 mg/dL; avoid hypoglycemia) - sedation prn for target RASS 0 to -1, decrease Propofol -Titrate analgesia to CPOT >3 - continue to avoid benzodiazepines, reduce the possibility of delirium - prn analgesia per CPOT score - Maintenance of sleep-wake cycle, avoid delirium - Stress prophylaxis -VTE prophylaxis- SCDs, the patient has had acute blood loss anemia, required supportive transfusions -Get transthoracic echocardiogram to evaluate EF -Supportive transfusions, to keep HgB >7g/dL -Avoid nephrotoxins and dose all medications for GFR and CrCL - mobility, off loading and frequent turning to prevent pressure ulcer - Monitor hemodynamics closely - continue other care per attending / other consultants CONDITION: CRITICAL PROGNOSIS: GUARDED CODE STATUS: FULL CODE The high probability of a clinically significant, sudden or life-threatening deterioration of the [respiratory, cardiovascular and hematologic] system(s) re quired my full and direct attention, intervention and personal management. The aggregate critical care time was [75] minutes without overlap. Time includes spent on; [x] Data Review and interpretation [x] Patient assessment and monitoring of vital signs [x] Documentation [x] Medication orders and management
[2021-10-09 07:09] LABS: Anisocytosis 1+; Basophils % (Manual) 0 % (0.0-1.8); Platelet Estimate Consistent w Auto; Total Cells Counted 100
[2021-10-09] MEDS ORDERED: SODIUM CHLORIDE 0.9% 500 ML 500 ML IV ONE (08:29)
[2021-10-09] MEDS ORDERED: SODIUM CHLORIDE 0.9% 1000 ML 1,000 ML IV SCH (08:30)
[2021-10-09] MEDS: VASOPRESSIN 20 UNIT in SODIUM CHLORIDE 0.9% 100 ML IV SCH (09:35)
--- NOTE | 2021-10-09 10:26 | Progress Note ---
<CHAD EDEN - Last Filed: 10/09/21 17:23> Assessment and Plan Assessment and plan: This is a 31-year-old female with past medical history of obesity and nephrolithiasis initially admitted to the floor for acute diverticulititis which was complicated by sepsis and acute kidney injury. 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 On 10/08/21 patient developed acute hypoxic respiratory failure requiring intubation and ventilatory support. ICU Course to Date: 10/09: Intubated and sedated, RASS -1 to -2. Recent CXR noted with worsen bilateral opacities with persistent leukocytosis, elevated lactic, and now on 2 pressors. Patient remains afebrile, and already on IV Abx per ID. Will swab patient for COVID. Given recent surgery orders placed for CTA chest, CT Abd/pl gavi. And also BLE dopplers due to elevated D-Dimer. Renal function is improving, additional IVF to flush out kidney post contrast, Nephrology is also following. Continue TPN and NGT to LIS. 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 post appendectomy #VRE infection #Open left hemicolectomy and partial omentectomy #Peritonitis #Leukocytosis #Diverticulitis with abscessresolved -CT abd/pelvis showed diverticulitis with abscess -General surgery following, assistance appreciated -s/p diagnositic laparatomy and drain placement 09/26/2021 Returned to the OR on 09/30/2021 for left hemicolectomy, appendectomy, and partial omentectomy -Wound culture +VRE -Remains afebrile but now on pressors with lactic Acidosis -Repeat Blood culture pending -Continue IV Abx per ID recommendations -Continue IVF rehydration -Continue blood pressure monitor per protocol -Titrate pressors for MAP goal above 65 -Continue TPN/PPN per general surgery -NGT to LIS -Trend CBC and lactic #Acute Kidney Injury-improving #Hypokalemia #Hypophosphatemia -secondary to vasomotor nephropathy vs contrast induced -Nephrology consulted, assistance appreciated -Strict intake and output -Avoid nephrotoxic medications; Renally dose medications -Continue IVF for now -Monitor and replace electrolytes as needed #Acute blood loss anemia #Gross Hematuria-resolved -2/2 to surgical procedures-- c/f ureteral injury -s/p 3 units of pRBCs since admission -Hematuria resolved, H&H stable -Urology consulted, appreciated recommendation -cystoscopy recommended by Urology -Continue to monitor for s/s of any active bleeding, trend CBC -transfuse if hemoglobin less than 7 or patient becomes symptomatic #Moderate protein caloric malnutrition -Albumin 1.6 -Continue TPN/PPN per general surgery -Consulting nutrition; appreciate recs #Elevated D-Dimer -BLE doppler pending -Continue AC- Heparin subQ #Hyperglycemia -most likely due to TPN/PPN -Continue SSI Q6hrs -Avoid hypoglycemia #GI/DVT Prophylaxis -Continue PPI- Pepcid -Continue AC- Heparin subQ The high probability of a clinically significant, sudden or life threatening deterioration of the [multiple] system(s) required my full and direct attention, intervention and personal management. The aggregate critical care time was [60] minutes. This time is in addition to time spent performing reported procedures but includes the following: [x] Data Review and interpretation [x] Patient assessment and monitoring of vital signs [x] Documentation [x] Medication orders and management Disposition Plan: ICU Total Time Spent with Patient (Minutes): 60 History Interval history: Patient seen and examined at the bedside. Intubated and Sedated, RASS -1 to -2. Code met overnight due to respiratory distress s/p intubation, now on pressors. Remains on TPN, NGT to LIS. Per RN, SAT/SBT trials attempted this am but was aborted due to increased anxiety and agitation. Hospitalist Physical - Constitutional Vitals: Temp Pulse Resp BP Pulse Ox 99.8 F H 88 24 102/68 95 03/05/22 04:00 10/09/21 09:00 10/09/21 09:00 10/09/21 09:00 10/09/21 09:00 General appearance: Present: no acute distress, well-nourished, obese, other (Intubated and Sedated) - EENT Eyes: Present: PERRL ENT: hearing intact - Respiratory Respiratory effort: normal Respiratory: bilateral: rhonchi - Cardiovascular Rhythm: regular Heart Sounds: Present: S1 & S2 - Extremities Extremities: no ischemia, pulses intact, pulses symmetrical Extremity abnormal: edema - Peripheral Assessment Generalized Edema Type: Pitting Edema Degree: 2+ Capillary Refill: < 3 seconds Skin Temperature: Warm Peripheral Pulses: within normal limits - Abdominal General gastrointestinal: soft, non-distended, hypoactive bowel sounds - Integumentary Integumentary: Present: clear, warm, dry - Psychiatric Psychiatric: other (Intubated and Sedated) - Neurologic Neurologic: other (Intubated and Sedated) - Allied Health Allied health notes reviewed: nursing Results - Labs CBC & Chem 7: 10/09/21 05:31 10/09/21 05:31 Labs: Laboratory Last Values WBC 20.3 K/mm3 (4.5-11.0) H 10/09/21 05:31 RBC 2.70 M/mm3 (3.65-5.03) L 10/09/21 05:31 Hgb 7.4 gm/dl (10.1-14.3) L 10/09/21 05:31 Hct 23.1 % (30.3-42.9) L 10/09/21 05:31 MCV 86 fl (79-97) 10/09/21 05:31 MCH 27 pg (28-32) L 10/09/21 05:31 MCHC 32 % (30-34) 10/09/21 05:31 RDW 16.6 % (13.2-15.2) H 10/09/21 05:31 Plt Count 786 K/mm3 (140-440) H 10/09/21 05:31 Prowers % (Auto) 5.9 % (0.0-7.3) 09/28/21 04:55 Eos % (Auto) 0.4 % (0.0-4.3) 09/28/21 04:55 [place] # (Auto) 0.9 K/mm3 (0.0-0.8) H 09/28/21 04:55 Eos # (Auto) 0.1 K/mm3 (0.0-0.4) 09/28/21 04:55 Baso # (Auto) 0.0 K/mm3 (0.0-0.1) 09/28/21 04:55 Add Manual Diff Complete 10/09/21 05:31 Total Counted 100 10/09/21 05:31 Seg Neutrophils % Black Studies Professor 10/03/21 04:55 Seg Neuts % (Manual) 88.0 % (40.0-70.0) H 10/09/21 05:31 Band Neutrophils % 0 % 10/09/21 05:31 Lymphocytes % (Manual) 3.0 % (13.4-35.0) L 10/09/21 05:31 Reactive Lymphs % (Man) 1.0 % 10/09/21 05:31 Monocytes % (Manual) 6.0 % (0.0-7.3) 10/09/21 05:31 Eosinophils % (Manual) 2.0 % (0.0-4.3) 10/09/21 05:31 Basophils % (Manual) 0 % (0.0-1.8) 10/09/21 05:31 Metamyelocytes % 0 % 10/09/21 05:31 Myelocytes % 0 % 10/09/21 05:31 Promyelocytes % 0 % 10/09/21 05:31 Blast Cells % 0 % 10/09/21 05:31 Nucleated RBC % Not Reportable 10/09/21 05:31 Seg Neutrophils # 14.0 K/mm3 (1.8-7.7) H 09/28/21 04:55 Seg Neutrophils # Man 17.9 K/mm3 (1.8-7.7) H 10/09/21 05:31 Band Neutrophils # 0.0 K/mm3 10/09/21 05:31 Lymphocytes # (Manual) 0.6 K/mm3 (1.2-5.4) L 10/09/21 05:31 Abs React Lymphs (Man) 0.2 K/mm3 10/09/21 05:31 Monocytes # (Manual) 1.2 K/mm3 (0.0-0.8) H 10/09/21 05:31 Eosinophils # (Manual) 0.4 K/mm3 (0.0-0.4) 10/09/21 05:31 Basophils # (Manual) 0.0 K/mm3 (0.0-0.1) 10/09/21 05:31 Metamyelocytes # 0.0 K/mm3 10/09/21 05:31 Myelocytes # 0.0 K/mm3 10/09/21 05:31 Promyelocytes # 0.0 K/mm3 10/09/21 05:31 Blast Cells # 0.0 K/mm3 10/09/21 05:31 Pathologist Review 09/24/21 14:58 WBC Morphology Not Reportable 10/09/21 05:31 Hypersegmented Neuts Not Reportable 10/09/21 05:31 Hyposegmented Neuts Not Reportable 10/09/21 05:31 Hypogranular Neuts Not Reportable 10/09/21 05:31 Smudge Cells Not Reportable 10/09/21 05:31 Toxic Granulation Not Reportable 10/09/21 05:31 Toxic Vacuolation Not Reportable 10/09/21 05:31 Dohle Bodies Not Reportable 10/09/21 05:31 Pelger-Huet Anomaly Not Reportable 10/09/21 05:31 Marlene Rods Not Reportable 10/09/21 05:31 Platelet Estimate Consistent w auto 10/09/21 05:31 Clumped Platelets Not Reportable 10/09/21 05:31 Plt Clumps, EDTA Not Reportable 10/09/21 05:31 Large Platelets Not Reportable 10/09/21 05:31 Giant Platelets Not Reportable 10/09/21 05:31 Platelet Satelliting Not Reportable 10/09/21 05:31 Plt Morphology Comment Not Reportable 10/09/21 05:31 RBC Morphology Not Reportable 10/09/21 05:31 Dimorphic RBCs Not Reportable 10/09/21 05:31 Polychromasia Not Reportable 10/09/21 05:31 Hypochromasia Not Reportable 10/09/21 05:31 Poikilocytosis Not Reportable 10/09/21 05:31 Anisocytosis 1+ 10/09/21 05:31 Microcytosis Not Reportable 10/09/21 05:31 Macrocytosis Not Reportable 10/09/21 05:31 Spherocytes Not Reportable 10/09/21 05:31 Pappenheimer Bodies Not Reportable 10/09/21 05:31 Sickle Cells Not Reportable 10/09/21 05:31 Target Cells Not Reportable 10/09/21 05:31 Tear Drop Cells Not Reportable 10/09/21 05:31 Ovalocytes Not Reportable 10/09/21 05:31 Helmet Cells Not Reportable 10/09/21 05:31 Navas-Kaser Bodies Not Reportable 10/09/21 05:31 Oscar Rings Not Reportable 10/09/21 05:31 Anusha Cells Not Reportable 10/09/21 05:31 Bite Cells Not Reportable 10/09/21 05:31 Crenated Cell Not Reportable 10/09/21 05:31 Elliptocytes Not Reportable 10/09/21 05:31 Acanthocytes (Spur) Not Reportable 10/09/21 05:31 Rouleaux Not Reportable 10/09/21 05:31 Hemoglobin C Crystals Not Reportable 10/09/21 05:31 Schistocytes Not Reportable 10/09/21 05:31 Malaria parasites Not Reportable 10/09/21 05:31 Flaco Bodies Not Reportable 10/09/21 05:31 Hem Pathologist Commnt No 10/09/21 05:31 PT 17.8 Sec. (12.2-14.9) H 10/05/21 04:40 INR 1.31 (0.87-1.13) H 10/05/21 04:40 ABG pH 7.368 pH Units (7.350-7.450) 10/08/21 21:30 ABG pCO2 34.6 mm Hg 10/08/21 21:30 ABG pO2 43.8 mm Hg (80.0-90.0) L 10/08/21 21:30 ABG HCO3 19.5 mmol/L (20.0-26.0) L 10/08/21 21:30 ABG O2 Saturation 70.7 % (95.0-99.0) L 10/08/21 21:30 ABG O2 Content 8.5 (0.0-44) 10/08/21 21:30 ABG Base Excess -5.3 mmol/L (-2.0-3.0) L 10/08/21 21:30 ABG Hemoglobin 8.6 gm/dl (12.0-16.0) L 10/08/21 21:30 ABG Carboxyhemoglobin 1.2 % (0.0-5.0) 10/08/21 21:30 ABG Methemoglobin 0.7 % (0.0-1.5) 10/08/21 21:30 Oxyhemoglobin 69.4 % (95.0-99.0) L 10/08/21 21:30 FiO2 100 % 10/08/21 21:30 Sodium 136 mmol/L (137-145) L 10/09/21 05:31 Potassium 4.8 mmol/L (3.6-5.0) 10/09/21 05:31 Chloride 102.3 mmol/L (98-107) 10/09/21 05:31 Carbon Dioxide 20 mmol/L (22-30) L 10/09/21 05:31 Anion Gap 19 mmol/L 10/09/21 05:31 BUN 32 mg/dL (7-17) H 10/09/21 05:31 Creatinine 1.5 mg/dL (0.6-1.2) H 10/09/21 05:31 Estimated GFR 49 ml/min 10/09/21 05:31 BUN/Creatinine Ratio 21 % 10/09/21 05:31 Glucose 214 mg/dL (65-100) H 10/09/21 05:31 POC Glucose 190 mg/dL (70-105) H 10/09/21 03:12 Lactic Acid 2.20 mmol/L (0.7-2.0) H* 10/09/21 05:31 Calcium 7.5 mg/dL (8.4-10.2) L 10/09/21 05:31 Phosphorus 4.00 mg/dL (2.5-4.5) 10/09/21 05:31 Magnesium 1.90 mg/dL (1.7-2.3) 10/09/21 05:31 Total Bilirubin 0.30 mg/dL (0.1-1.2) 10/09/21 05:31 AST 26 units/L (5-40) 10/09/21 05:31 ALT 11 units/L (7-56) 10/09/21 05:31 Alkaline Phosphatase 63 units/L (35-129) 10/09/21 05:31 Total Creatine Kinase 242 units/L (30-135) H 10/06/21 05:27 Total Protein 5.8 g/dL (6.3-8.2) L 10/09/21 05:31 Albumin 2.3 g/dL (3.9-5) L 10/09/21 05:31 Albumin/Globulin Ratio 0.7 % 10/09/21 05:31 Urine Color Yellow (Yellow) 09/24/21 14:49 Urine Turbidity Slightly-cloudy (Clear) 09/24/21 14:49 Urine pH 6.0 (5.0-7.0) 09/24/21 14:49 Ur Specific [place] 1.017 (1.003-1.030) 09/24/21 14:49 Urine Protein 30 mg/dl mg/dL (Negative) 09/24/21 14:49 Urine Glucose (UA) Neg mg/dL (Negative) 09/24/21 14:49 Urine Ketones Neg mg/dL (Negative) 09/24/21 14:49 Urine Blood Neg (Negative) 09/24/21 14:49 Urine Nitrite Neg (Negative) 09/24/21 14:49 Ur Reducing Substances Not Reportable 09/24/21 14:49 Urine Bilirubin Neg (Negative) 09/24/21 14:49 Urine Ictotest Not Reportable 09/24/21 14:49 Urine Urobilinogen < 2.0 mg/dL (<2.0) 09/24/21 14:49 Ur Leukocyte Esterase Neg (Negative) 09/24/21 14:49 Urine WBC (Auto) 4.0 /HPF (0.0-6.0) 09/24/21 14:49 Urine RBC (Auto) 2.0 /HPF (0.0-6.0) 09/24/21 14:49 U Epithel Cells (Auto) 18.0 /HPF (0-13.0) H 09/24/21 14:49 Urine Mucus Few /HPF 09/24/21 14:49 Urine HCG, Qual Negative (Negative) 09/24/21 14:49 Blood Type A POSITIVE 10/08/21 22:55 Antibody Screen Negative 10/08/21 22:55 Crossmatch See Detail 10/04/21 13:30 Microbiology: Microbiology 10/08/21 23:30 Peripheral/Venous Blood Culture - Preliminary Culture in Progress 10/08/21 22:55 Peripheral/Venous Blood Culture - Preliminary Culture in Progress Doss/IV: Voiding Method Indwelling Catheter Active Medications - Current Medications Current Medications: Generic Name Dose Route Start Last Admin Trade Name Freq PRN Reason Stop Dose Admin Acetaminophen 650 mg 10/08/21 21:38 Acetaminophen 325 Mg Tab PO Q6H PRN Pain, Mild (1-3) Albuterol 2.5 mg 09/24/21 18:07 Albuterol 2.5 Mg/3 Ml Nebu IH Q4HRT PRN Shortness Of Breath Dextrose 0 ml 10/03/21 12:37 Dextrose 10% *Hypoglycemia IV PRN PRN Hypoglycemia Diphenhydramine HCl 25 mg 10/04/21 15:14 10/07/21 00:34 Diphenhydramine 50 Mg/Ml Vial IV 25 mg Q6H PRN Administration Itching Famotidine 20 mg 10/08/21 22:00 10/09/21 09:22 Famotidine 20 Mg/2 Ml Inj IV 20 mg BID JAZ Administration Fentanyl 50 mcg 10/08/21 22:10 Fentanyl 100 Mcg/2 Ml Inj IV Q10MIN PRN ANALGESIA Heparin Sodium (Porcine) 5,000 unit 10/07/21 06:00 10/09/21 09:21 Heparin 5,000 Unit/1 Ml Vial SUB-Q 5,000 unit Q8HR JAZ Administration Hydromorphone HCl 1 mg 10/03/21 14:00 10/08/21 17:31 Hydromorphone 1 Mg/1 Ml Inj IV 1 mg Q3H PRN Administration Pain , Severe (7-10) Hydromorphone HCl 0.25 mg 10/08/21 21:38 Hydromorphone 1 Mg/1 Ml Inj IV Q4H PRN Pain, Moderate (4-6) Hydrophilic Ointment 1 applic 10/08/21 21:00 Lip Therapy Vaseline TP Q2HR PRN Dry Lips Metronidazole 500 mg in 100 mls @ 100 mls/hr 10/02/21 16:00 10/09/21 01:15 Flagyl 500 Mg/100 Ml IV 100 mls/hr Q8H JAZ Administration Protocol Lactated Ringer's 1,000 mls @ 75 mls/hr 10/02/21 13:00 10/07/21 05:50 Lactated Ringers IV 125 mls/hr DIRECT JAZ Administration Amino Acids/Electrolytes/Dextrose 2,400 mls @ 100 mls/hr 10/08/21 20:00 10/08/21 23:48 Tpn Adult IV 10/09/21 19:59 100 mls/hr DAILY@1999 JAZ Administration Protocol Linezolid 600 mg in 300 mls @ 300 mls/hr 10/08/21 15:00 10/09/21 07:35 Zyvox 600mg/300ml IV Infused Q12H JAZ Infusion Protocol Propofol 1,000 mg in 100 mls @ 2.694 mls/hr 10/08/21 21:00 10/09/21 09:00 Diprivan 10 Mg/Ml IV 46.4 mcg/kg/min TITR JAZ 25 mls/hr Titration Protocol 5 MCG/KG/MIN Cefepime HCl 2 gm in 100 mls @ 200 mls/hr 10/08/21 22:00 10/08/21 23:15 Cefepime/Ns 2 Gm/100 Ml IV 200 mls/hr Q12H JAZ Administration Protocol Fentanyl Citrate 2,000 mcg in 100 mls @ 4.49 mls/hr 10/08/21 23:00 10/09/21 08:45 Fentanyl Drip Premix IV 4 mcg/kg/hr TITR JAZ 17.96 mls/hr Titration Protocol 1 MCG/KG/HR Vasopressin 20 unit/ Sodium 101 mls @ 9.09 mls/hr 10/08/21 23:00 10/09/21 09:35 Chloride IV 0.03 units/min TITR JAZ 9.09 mls/hr Administration Protocol 0.03 UNITS/MIN NORepinephrine/NS 8 MG-250 ML 8 mg in 250 mls @ 3.75 mls/hr 10/08/21 23:45 Norepinephrine/Ns 8 Mg-250 Ml (Double Conc) IV TITRATE JAZ Protocol 2 MCG/MIN Sodium Chloride 1,000 mls @ 75 mls/hr 10/09/21 08:30 Nacl 0.9% 1000 Ml IV DIRECT JAZ Insulin Human Regular 0 units 10/03/21 13:00 10/09/21 09:22 Insulin Regular, Human 100 Units/1 Ml SUB-Q 3 units Q6H [facility] Administration Protocol Labetalol HCl 10 mg 10/01/21 08:31 10/08/21 13:22 Labetalol 20 Mg/4 Ml Inj IV 10 mg Q6H PRN Administration Hypertension Multi-Ingred Cream/Lotion/Oil/Oint 1 applic 10/08/21 21:00 Mineral Oil/Petrolatum, White Ophth Oint 3.5 Gm OU Q4HR PRN Dry Eye(s) Naloxone HCl 0.1 mg 10/03/21 14:00 Naloxone 0.4 Mg/1 Ml Inj IV Q2MIN PRN Res Rate </= 8 or 02 SAT < 92% Ondansetron HCl 4 mg 09/24/21 18:07 10/05/21 11:39 Ondansetron 4 Mg/2 Ml Inj IV 4 mg Q8H PRN Administration Nausea And Vomiting Phenol 1 spray 10/02/21 13:00 10/03/21 10:23 Phenol 1.4% 177 Ml Bottle MM 1 spray PRN PRN Administration Sore Throat Scopolamine 1 each 10/04/21 10:00 10/07/21 14:14 Scopolamine Transdermal Patch 72 Hr TD 1 each Q3D JAZ Administration Senna/Docusate Sodium 1 tab 10/08/21 22:00 10/09/21 09:25 Sennosides/Docusate Sodium 8.6/50 Mg Tab FEEDTUBE Not Given BID JAZ Sodium Chloride 10 ml 09/24/21 22:00 10/09/21 09:24 Sodium Chloride 0.9% 10 Ml Flush Syringe IV 10 ml BID JAZ Administration Sodium Chloride 10 ml 09/24/21 18:07 09/25/21 08:34 Sodium Chloride 0.9% 10 Ml Flush Syringe IV 10 ml PRN PRN Administration LINE FLUSH Nutrition/Malnutrition Assess - Dietary Evaluation Nutrition/Malnutrition Findings: Nutrition Notes Start: 09/25/21 15:31 Freq: Status: Active Protocol: Document 10/08/21 10:14 BIN (Rec: 10/08/21 10:20 BIN [id number]) Nutrition Notes Initial or Follow up Reassessment Current Diagnosis Acute Kidney Injury,Sepsis, Malnutrition Other Pertinent Diagnosis s/p Diverticulitis, s/p Hemicolectomy/Appendectomy/ Partial Omentectomy. Current Diet PPN @ 100mL/hr Labs/Tests 10/08: Na 136, CO2 20, BUN 31, Crea 1.7, Glu 134, Ca 7.9, Phos 4.6. Pertinent Medications 10/08: Nutritionally unremarkable. Height 5 ft 7 in Weight 89.8 kg [place] Body Weight (kg) 61.36 BMI 31.0 Weight change and time frame No body weight changed reported. Weight Status Obese Subjective/Other Information RD consult for routine F/U on PPN. PPN continues as prescribed, well tolerated, according to RN notes. Pt still present ileus. Pt is NPO, but can have Ice chips PRN. Percent of energy/protein needs met: 55% Kcal; 93% AA. Burn Absent Trauma Absent Food Allergy No Skin Integrity/Comment Surgical wound. Current % PO Other Minimum of two criteria No #1 Nutrition Diagnosis Altered GI function Diagnosis Progress(for reassessment Continues documentation) Is patient on ventilator? No Is Patient Ambulatory and/or Out of Bed Yes REE-([facility]-ambulatory/OOB) [ 2132.819 [id number]] Kcal/Kg value to use for calculation 20 Approximate Energy Requirements Using 1796 kcal/Kg Calculation Used for Recommendations Kcal/kg Additional Notes Protein: 1.2-1.5 g/Kg 91-114g/ day AdjBW. Fluids: 1 mL/Kcal, or as per MD. Nutrition Intervention Nutrition Support: Continue PPN @ 100mL/hr with: 3.5% AA 7.9% Dextrose Osmolarity: 883 Na: 60 mEq K: 100 mEq Ca:0 mEq M mEq Phos: 20 mmol Cl/Co2: 10%/90% MVI Kcal 986 Protein (gm) 85 Carbohydrates (gm) 190 Fat (gm) 0 Fluid (mL) 2,400 Fiber (gm) 0 % RDI: 55% Kcal; 93% AA. Goal #1 Provide at least 75% of energy /protein needs through Parenteral Feeding during LOS. Goal #2 Maintain body weight within +/ -3% of admission body weight during LOS. Follow-Up By: 10/09/21 Additional Comments Continue monitoring PPN tolerance and BM. BMP, Phos, Mg labs ordered. <PAULIE HAY - Last Filed: 10/10/21 07:21> Assessment and Plan Assessment and plan: I saw and evaluated the patient. I agree with the findings and the plan of care as documented in the Nurse Practitioner's~note, with the following corrections and additions. Hospitalist Physical - Constitutional Vitals: Temp Pulse Resp BP Pulse Ox 97.9 F 82 26 H 94/54 100 10/10/21 04:00 10/10/21 06:00 10/10/21 06:00 10/10/21 06:00 10/10/21 06:00 Results - Labs CBC & Chem 7: 10/10/21 04:10 10/10/21 04:10 Labs: Laboratory Last Values WBC 20.8 K/mm3 (4.5-11.0) H 10/10/21 04:10 RBC 2.54 M/mm3 (3.65-5.03) L 10/10/21 04:10 Hgb 7.1 gm/dl (10.1-14.3) L 10/10/21 04:10 Hct 21.8 % (30.3-42.9) L 10/10/21 04:10 MCV 86 fl (79-97) 10/10/21 04:10 MCH 28 pg (28-32) 10/10/21 04:10 MCHC 33 % (30-34) 10/10/21 04:10 RDW 16.6 % (13.2-15.2) H 10/10/21 04:10 Plt Count 740 K/mm3 (140-440) H 10/10/21 04:10 [place] % (Auto) 5.9 % (0.0-7.3) 09/28/21 04:55 Eos % (Auto) 0.4 % (0.0-4.3) 09/28/21 04:55 [place] # (Auto) 0.9 K/mm3 (0.0-0.8) H 09/28/21 04:55 Eos # (Auto) 0.1 K/mm3 (0.0-0.4) 09/28/21 04:55 Baso # (Auto) 0.0 K/mm3 (0.0-0.1) 09/28/21 04:55 Add Manual Diff Complete 10/09/21 05:31 Total Counted 100 10/09/21 05:31 Seg Neutrophils % Black Studies Professor 10/03/21 04:55 Seg Neuts % (Manual) 88.0 % (40.0-70.0) H 10/09/21 05:31 Band Neutrophils % 0 % 10/09/21 05:31 Lymphocytes % (Manual) 3.0 % (13.4-35.0) L 10/09/21 05:31 Reactive Lymphs % (Man) 1.0 % 10/09/21 05:31 Monocytes % (Manual) 6.0 % (0.0-7.3) 10/09/21 05:31 Eosinophils % (Manual) 2.0 % (0.0-4.3) 10/09/21 05:31 Basophils % (Manual) 0 % (0.0-1.8) 10/09/21 05:31 Metamyelocytes % 0 % 10/09/21 05:31 Myelocytes % 0 % 10/09/21 05:31 Promyelocytes % 0 % 10/09/21 05:31 Blast Cells % 0 % 10/09/21 05:31 Nucleated RBC % Not Reportable 10/09/21 05:31 Seg Neutrophils # 14.0 K/mm3 (1.8-7.7) H 09/28/21 04:55 Seg Neutrophils # Man 17.9 K/mm3 (1.8-7.7) H 10/09/21 05:31 Band Neutrophils # 0.0 K/mm3 10/09/21 05:31 Lymphocytes # (Manual) 0.6 K/mm3 (1.2-5.4) L 10/09/21 05:31 Abs React Lymphs (Man) 0.2 K/mm3 10/09/21 05:31 Monocytes # (Manual) 1.2 K/mm3 (0.0-0.8) H 10/09/21 05:31 Eosinophils # (Manual) 0.4 K/mm3 (0.0-0.4) 10/09/21 05:31 Basophils # (Manual) 0.0 K/mm3 (0.0-0.1) 10/09/21 05:31 Metamyelocytes # 0.0 K/mm3 10/09/21 05:31 Myelocytes # 0.0 K/mm3 10/09/21 05:31 Promyelocytes # 0.0 K/mm3 10/09/21 05:31 Blast Cells # 0.0 K/mm3 10/09/21 05:31 Pathologist Review 09/24/21 14:58 WBC Morphology Not Reportable 10/09/21 05:31 Hypersegmented Neuts Not Reportable 10/09/21 05:31 Hyposegmented Neuts Not Reportable 10/09/21 05:31 Hypogranular Neuts Not Reportable 10/09/21 05:31 Smudge Cells Not Reportable 10/09/21 05:31 Toxic Granulation Not Reportable 10/09/21 05:31 Toxic Vacuolation Not Reportable 10/09/21 05:31 Dohle Bodies Not Reportable 10/09/21 05:31 Pelger-Huet Anomaly Not Reportable 10/09/21 05:31 Marlene Rods Not Reportable 10/09/21 05:31 Platelet Estimate Consistent w auto 10/09/21 05:31 Clumped Platelets Not Reportable 10/09/21 05:31 Plt Clumps, EDTA Not Reportable 10/09/21 05:31 Large Platelets Not Reportable 10/09/21 05:31 Giant Platelets Not Reportable 10/09/21 05:31 Platelet Satelliting Not Reportable 10/09/21 05:31 Plt Morphology Comment Not Reportable 10/09/21 05:31 RBC Morphology Not Reportable 10/09/21 05:31 Dimorphic RBCs Not Reportable 10/09/21 05:31 Polychromasia Not Reportable 10/09/21 05:31 Hypochromasia Not Reportable 10/09/21 05:31 Poikilocytosis Not Reportable 10/09/21 05:31 Anisocytosis 1+ 10/09/21 05:31 Microcytosis Not Reportable 10/09/21 05:31 Macrocytosis Not Reportable 10/09/21 05:31 Spherocytes Not Reportable 10/09/21 05:31 Pappenheimer Bodies Not Reportable 10/09/21 05:31 Sickle Cells Not Reportable 10/09/21 05:31 Target Cells Not Reportable 10/09/21 05:31 Tear Drop Cells Not Reportable 10/09/21 05:31 Ovalocytes Not Reportable 10/09/21 05:31 Helmet Cells Not Reportable 10/09/21 05:31 Navas-Kaser Bodies Not Reportable 10/09/21 05:31 Oscar Rings Not Reportable 10/09/21 05:31 [place] Cells Not Reportable 10/09/21 05:31 Bite Cells Not Reportable 10/09/21 05:31 Crenated Cell Not Reportable 10/09/21 05:31 Elliptocytes Not Reportable 10/09/21 05:31 Acanthocytes (Spur) Not Reportable 10/09/21 05:31 Rouleaux Not Reportable 10/09/21 05:31 Hemoglobin C Crystals Not Reportable 10/09/21 05:31 Schistocytes Not Reportable 10/09/21 05:31 Malaria parasites Not Reportable 10/09/21 05:31 Flaco Bodies Not Reportable 10/09/21 05:31 Hem Pathologist Commnt No 10/09/21 05:31 PT 17.8 Sec. (12.2-14.9) H 10/05/21 04:40 INR 1.31 (0.87-1.13) H 10/05/21 04:40 D-Dimer > 24047 ng/mlDDU (0-234) H 10/09/21 08:45 ABG pH 7.505 pH Units (7.350-7.450) H 10/10/21 Unknown ABG pCO2 27.6 mm Hg 10/10/21 Unknown ABG pO2 246.1 mm Hg (80.0-90.0) H 10/10/21 Unknown ABG HCO3 21.3 mmol/L (20.0-26.0) 10/10/21 Unknown ABG O2 Saturation 99.4 % (95.0-99.0) H 10/10/21 Unknown ABG O2 Content 8.9 (0.0-44) 10/10/21 Unknown ABG Base Excess -1.7 mmol/L (-2.0-3.0) 10/10/21 Unknown ABG Hemoglobin 6.0 gm/dl (12.0-16.0) L 10/10/21 Unknown ABG Carboxyhemoglobin 1.1 % (0.0-5.0) 10/10/21 Unknown ABG Methemoglobin 0.5 % (0.0-1.5) 10/10/21 Unknown Oxyhemoglobin 97.9 % (95.0-99.0) 10/10/21 Unknown FiO2 60 % 10/10/21 Unknown Sodium 130 mmol/L (137-145) L 10/10/21 04:10 Potassium 4.4 mmol/L (3.6-5.0) 10/10/21 04:10 Chloride 97.9 mmol/L (98-107) L 10/10/21 04:10 Carbon Dioxide 19 mmol/L (22-30) L 10/10/21 04:10 Anion Gap 18 mmol/L 10/10/21 04:10 BUN 37 mg/dL (7-17) H 10/10/21 04:10 Creatinine 1.4 mg/dL (0.6-1.2) H 10/10/21 04:10 Estimated GFR 53 ml/min 10/10/21 04:10 BUN/Creatinine Ratio 26 % 10/10/21 04:10 Glucose 181 mg/dL (65-100) H 10/10/21 04:10 POC Glucose 150 mg/dL (70-105) H 10/10/21 05:41 Lactic Acid 1.80 mmol/L (0.7-2.0) 10/10/21 04:10 Calcium 7.8 mg/dL (8.4-10.2) L 10/10/21 04:10 Phosphorus 2.80 mg/dL (2.5-4.5) D 10/10/21 04:10 Magnesium 1.70 mg/dL (1.7-2.3) 10/10/21 04:10 Ferritin 751.9 ng/mL (10.0-200.0) H 10/09/21 05:31 Total Bilirubin 0.30 mg/dL (0.1-1.2) 10/09/21 05:31 AST 26 units/L (5-40) 10/09/21 05:31 ALT 11 units/L (7-56) 10/09/21 05:31 Alkaline Phosphatase 63 units/L (35-129) 10/09/21 05:31 Lactate Dehydrogenase 472 units/L (91-180) H 10/09/21 05:31 Total Creatine Kinase 242 units/L (30-135) H 10/06/21 05:27 C-Reactive Protein 15.90 mg/dL (0.00-1.30) H 10/09/21 05:31 Total Protein 5.8 g/dL (6.3-8.2) L 10/09/21 05:31 Albumin 2.3 g/dL (3.9-5) L 10/09/21 05:31 Albumin/Globulin Ratio 0.7 % 10/09/21 05:31 Urine Color Yellow (Yellow) 09/24/21 14:49 Urine Turbidity Slightly-cloudy (Clear) 09/24/21 14:49 Urine pH 6.0 (5.0-7.0) 09/24/21 14:49 Ur Specific [place] 1.017 (1.003-1.030) 09/24/21 14:49 Urine Protein 30 mg/dl mg/dL (Negative) 09/24/21 14:49 Urine Glucose (UA) Neg mg/dL (Negative) 09/24/21 14:49 Urine Ketones Neg mg/dL (Negative) 09/24/21 14:49 Urine Blood Neg (Negative) 09/24/21 14:49 Urine Nitrite Neg (Negative) 09/24/21 14:49 Ur Reducing Substances Not Reportable 09/24/21 14:49 Urine Bilirubin Neg (Negative) 09/24/21 14:49 Urine Ictotest Not Reportable 09/24/21 14:49 Urine Urobilinogen < 2.0 mg/dL (<2.0) 09/24/21 14:49 Ur Leukocyte Esterase Neg (Negative) 09/24/21 14:49 Urine WBC (Auto) 4.0 /HPF (0.0-6.0) 09/24/21 14:49 Urine RBC (Auto) 2.0 /HPF (0.0-6.0) 09/24/21 14:49 U Epithel Cells (Auto) 18.0 /HPF (0-13.0) H 09/24/21 14:49 Urine Mucus Few /HPF 09/24/21 14:49 Urine HCG, Qual Negative (Negative) 09/24/21 14:49 Coronavirus (PCR) Negative (Negative) 10/09/21 10:15 Blood Type A POSITIVE 10/08/21 22:55 Antibody Screen Negative 10/08/21 22:55 Crossmatch See Detail 10/04/21 13:30 Microbiology: Microbiology 10/08/21 22:55 Peripheral/Venous Blood Culture - Preliminary NO GROWTH AFTER 24 HOURS 10/08/21 23:30 Peripheral/Venous Blood Culture - Preliminary NO GROWTH AFTER 24 HOURS Doss/IV: Voiding Method Indwelling Catheter Active Medications - Current Medications Current Medications: Generic Name Dose Route Start Last Admin Trade Name Freq PRN Reason Stop Dose Admin Acetaminophen 650 mg 10/08/21 21:38 Acetaminophen 325 Mg Tab PO Q6H PRN Pain, Mild (1-3) Albuterol 2.5 mg 09/24/21 18:07 Albuterol 2.5 Mg/3 Ml Nebu IH Q4HRT PRN Shortness Of Breath Dextrose 0 ml 10/03/21 12:37 Dextrose 10% *Hypoglycemia IV PRN PRN Hypoglycemia Diphenhydramine HCl 25 mg 10/04/21 15:14 10/07/21 00:34 Diphenhydramine 50 Mg/Ml Vial IV 25 mg Q6H PRN Administration Itching Famotidine 20 mg 10/08/21 22:00 10/09/21 21:18 Famotidine 20 Mg/2 Ml Inj IV 20 mg BID JAZ Administration Fentanyl 50 mcg 10/08/21 22:10 Fentanyl 100 Mcg/2 Ml Inj IV Q10MIN PRN ANALGESIA Heparin Sodium (Porcine) 5,000 unit 10/07/21 06:00 10/10/21 05:59 Heparin 5,000 Unit/1 Ml Vial SUB-Q 5,000 unit Q8HR JAZ Administration Hydromorphone HCl 1 mg 10/03/21 14:00 10/08/21 17:31 Hydromorphone 1 Mg/1 Ml Inj IV 1 mg Q3H PRN Administration Pain , Severe (7-10) Hydromorphone HCl 0.25 mg 10/08/21 21:38 Hydromorphone 1 Mg/1 Ml Inj IV Q4H PRN Pain, Moderate (4-6) Hydrophilic Ointment 1 applic 10/08/21 21:00 Lip Therapy Vaseline TP Q2HR PRN Dry Lips Metronidazole 500 mg in 100 mls @ 100 mls/hr 10/02/21 16:00 10/10/21 00:32 Flagyl 500 Mg/100 Ml IV 100 mls/hr Q8H JAZ Administration Protocol Linezolid 600 mg in 300 mls @ 300 mls/hr 10/08/21 15:00 10/10/21 02:53 Zyvox 600mg/300ml IV 300 mls/hr Q12H JAZ Administration Protocol Propofol 1,000 mg in 100 mls @ 2.694 mls/hr 10/08/21 21:00 10/10/21 04:42 Diprivan 10 Mg/Ml IV 20 mcg/kg/min TITR JAZ 10.776 mls/hr Administration Protocol 5 MCG/KG/MIN Cefepime HCl 2 gm in 100 mls @ 200 mls/hr 10/08/21 22:00 10/09/21 21:17 Cefepime/Ns 2 Gm/100 Ml IV 200 mls/hr Q12H [facility] Administration Protocol Fentanyl Citrate 2,000 mcg in 100 mls @ 4.49 mls/hr 10/08/21 23:00 10/10/21 07:10 Fentanyl Drip Premix IV 4 mcg/kg/hr TITR JAZ 17.96 mls/hr Administration Protocol 1 MCG/KG/HR Vasopressin 20 unit/ Sodium 101 mls @ 9.09 mls/hr 10/08/21 23:00 10/09/21 14:30 Chloride IV 0 units/min TITR JAZ 0 mls/hr Titration Protocol 0.03 UNITS/MIN NORepinephrine/NS 8 MG-250 ML 8 mg in 250 mls @ 3.75 mls/hr 10/08/21 23:45 Norepinephrine/Ns 8 Mg-250 Ml (Double Conc) IV TITRATE [facility] Protocol 2 MCG/MIN Amino Acids/Electrolytes/Dextrose 2,000 mls @ 83.3 mls/hr 10/09/21 20:00 10/09/21 21:01 Tpn Adult IV 10/10/21 19:59 83.3 mls/hr DAILY@1999 [facility] Administration Protocol Insulin Human Regular 0 units 10/10/21 00:00 10/10/21 05:46 Insulin Regular, Human 100 Units/1 Ml SUB-Q 2 units Q6HR [facility] Administration Protocol Labetalol HCl 10 mg 10/01/21 08:31 10/08/21 13:22 Labetalol 20 Mg/4 Ml Inj IV 10 mg Q6H PRN Administration Hypertension Multi-Ingred Cream/Lotion/Oil/Oint 1 applic 10/08/21 21:00 Mineral Oil/Petrolatum, White Ophth Oint 3.5 Gm OU Q4HR PRN Dry Eye(s) Naloxone HCl 0.1 mg 10/03/21 14:00 Naloxone 0.4 Mg/1 Ml Inj IV Q2MIN PRN Res Rate </= 8 or 02 SAT < 92% Ondansetron HCl 4 mg 09/24/21 18:07 10/05/21 11:39 Ondansetron 4 Mg/2 Ml Inj IV 4 mg Q8H PRN Administration Nausea And Vomiting Phenol 1 spray 10/02/21 13:00 10/03/21 10:23 Phenol 1.4% 177 Ml Bottle MM 1 spray PRN PRN Administration Sore Throat Scopolamine 1 each 10/04/21 10:00 10/07/21 14:14 Scopolamine Transdermal Patch 72 Hr TD 1 each Q3D JAZ Administration Senna/Docusate Sodium 1 tab 10/08/21 22:00 10/09/21 21:18 Sennosides/Docusate Sodium 8.6/50 Mg Tab FEEDTUBE 1 tab BID JAZ Administration Sodium Chloride 10 ml 09/24/21 22:00 10/09/21 21:18 Sodium Chloride 0.9% 10 Ml Flush Syringe IV 10 ml BID JAZ Administration Sodium Chloride 10 ml 09/24/21 18:07 09/25/21 08:34 Sodium Chloride 0.9% 10 Ml Flush Syringe IV 10 ml PRN PRN Administration LINE FLUSH Nutrition/Malnutrition Assess - Dietary Evaluation Nutrition/Malnutrition Findings: Nutrition Notes Start: 09/25/21 15:31 Freq: Status: Active Protocol: Document 10/09/21 11:19 [facility] (Rec: 10/09/21 11:45 [facility] [id number]) Nutrition Notes Initial or Follow up Reassessment Current Diagnosis Acute Kidney Injury,Sepsis Other Pertinent Diagnosis Perforated appendicitis s/p appendectomy with (R) hemicolectomy Current Diet PPN @ 100mL/hr Labs/Tests Na 136 BG 214 BUN 32 Cr 1.5 CO2 - 20 Ca 7.5 (adjusted 8.86) Pertinent Medications LR at 125ml/hr, NS at 75ml/hr, Levophed gtt, Propofol at 25ml/hr (provides 660 kcal), Scopolamine, Senna, Vasopressin gtt Height 5 ft 7 in Weight 104.4 kg [place] Body Weight (kg) 61.36 BMI 36.0 Weight change and time frame Wt change noted - fluid?? Weight Status Obese Subjective/Other Information Pt transferred to ICU sec to resp distress; pt currently intubated and with central iv access. Percent of energy/protein needs met: 59% energy 69% pro (meeting 99% of energy needs if propofol included) Burn Absent Trauma Absent #1 Nutrition Diagnosis Altered GI function Diagnosis Progress(for reassessment Continues documentation) Is patient on ventilator? Yes Is Patient Ambulatory and/or Out of Bed No REE[facility] 2145.768 Kcal/Kg value to use for calculation 16 Approximate Energy Requirements Using 1670 kcal/Kg Calculation Used for Recommendations Kcal/kg Additional Notes Pro needs 2g/kg IBW: 123g/day Fluid needs 1ml/kcal Nutrition Intervention Nutrition Support: Change PN to CPN and decrease rate to 83.33ml/hr: MVI, 4.8% amino acids, 10% dextrose, 50mEq K, 2mEq Mg. Osmolality: 1062. Kcal 1,026 Protein (gm) 95 Carbohydrates (gm) 190 Fat (gm) 0 Fluid (mL) 2,000 Fiber (gm) 0 Goal #1 PN to meet at least 75% energy and pro needs Follow-Up By: 10/10/21 Additional Comments Labs in am: BMP, Mg, Phos Check pressors, vent status and propofol
--- NOTE | 2021-10-09 10:59 | Cat Scan Report ---
CTA CHEST WITH IV CONTRAST, 10/09/2021 INDICATION: Shortness of breath TECHNIQUE: Axial CT images were obtained through the chest after injection of IV contrast. Coronal oblique 2-D reconstruction images were produced. 3 plane MIP reconstruction images were produced at an [employer] workstation. All CTs at this facility utilize dose reduction techniques including automated expos ure control, iterative reconstruction and weight based dosing when appropriate to reduce patient radi ation dose to as low as reasonable achievable. COMPARISON: Chest radiograph, 10/08/2021. No previous cross-sectional imaging is available for comparis on. FINDINGS: There is suboptimal timing of contrast bolus on today's evaluation. However, no filling defects are v isualized within the central or segmental pulmonary arteries to suggest pulmonary edema. Heart is nor mal in size. The thoracic aorta is normal in caliber. LUNGS: Evaluation of the lung parenchyma demonstrates diffuse patchy bilateral pulmonary opacities an d moderate dependent atelectasis. UPPER ABDOMEN: Limited imaging of the upper abdomen demonstrates no evidence of acute abnormality. BONES AND SOFT TISSUES: Evaluation of bony structures demonstrates a few nonspecific sclerotic foci w ithin the right ribs. No destructive bony lesion is identified. Evaluation of soft tissue structures demonstrates moderate anasarca. IMPRESSION: 1. No evidence of pulmonary embolism. 2. Diffuse bilateral pulmonary opacities and dependent atelectasis. Findings may suggest multifocal p neumonia or pulmonary edema. 3. Anasarca suggesting a volume overloaded state. Signer Name: Tonie Winter MD Signed: 10/09/2021 10:55 AM Workstation Name: [id number]
[2021-10-09] MEDS: CEFEPIME/NS 2 GM/100 ML 2 GM/100 ML BAG IV SCH ×2 (11:23→21:17)
--- NOTE | 2021-10-09 11:24 | Cat Scan Report ---
CT ABDOMEN AND PELVIS WITHOUT CONTRAST, 10/09/2021 INDICATION: Sepsis TECHNICAL: Multiple axial CT images of the abdomen and pelvis were acquired without intravenous contr ast. Sagittal and coronal reformats were obtained. All CTs at this facility utilize dose reduction techniques including automated exposure control, iterative reconstruction and weight based dosing whe n appropriate to reduce patient radiation dose to as low as reasonable achievable. COMPARISON: CT of the abdomen and pelvis, 10/04/2021, 09/30/2021, 09/29/2021 and 09/24/2021 FINDINGS: LUNG BASES: Limited imaging of the bilateral lung bases demonstrates bibasilar pulmonary opacities an d moderate dependent atelectasis. ABDOMEN: Evaluation of the abdomen is somewhat limited due to the lack of intravenous contrast. The l iver, stomach, spleen, gallbladder, pancreas and left adrenal glands show no evidence of acute abnorm ality. The 3.1 cm right adrenal mass is again noted. There is mild stable dilatation of the left uret er. There is moderate inflammatory stranding within the left mid and lower abdomen at the site of previou s bowel repair. There is an oval elongated collection of air within the left mid abdomen measuring 14 cm in greatest craniocaudal dimension. It is difficult to determine if this is intraluminal or extra luminal on today's noncontrast study. PELVIS: Pelvic drain remains in place with distal tip along the left side wall. The previously noted. Colonic abscess remains decreased in size. The urinary bladder is decompressed around a Doss cathet er. BONES AND SOFT TISSUES: Evaluation of bony structures demonstrates no acute bony abnormality. Evaluat ion of soft tissue structures demonstrates generalized anasarca. IMPRESSION: 1. Moderate inflammatory changes within the left mid and lower abdomen slightly increased from the re cent previous study. 2. Collection of air within the left mid abdomen. It is difficult to determine if this is intralumina l or extraluminal without the use of intravenous and oral contrast on today's study. 3. Stable mild left-sided hydronephrosis likely related to postsurgical and inflammatory changes with in the left pelvis. Signer Name: Tonie Winter MD Signed: 10/09/2021 11:20 AM Workstation Name: [id number]
[2021-10-09 12:26] LABS: ABG Base Excess -2.6 mmol/L (-2.0-3.0); ABG HCO3 22.8 mmol/L (20.0-26.0); ABG Methemoglobin 0.4 % (0.0-1.5); ABG Oxygen Saturation 86.6 % (95.0-99.0); ABG PH 7.352 pH Units (7.350-7.450); ABG PO2 54.3 mm Hg (80.0-90.0)
--- NOTE | 2021-10-09 13:44 | Progress Note ---
Assessment and Plan - Patient Problems (1) Acute respiratory failure with hypoxia Current Visit: Yes Status: Acute Plan to address problem: Patient intubated at this time. Ventilator management per ICU team. CT chest reviewed and concerning for worsening bilateral opacities secondary to pneumonia versus fluid overload and pulmonary edema. Given worsening and persistent leukocytosis I am concerned for an infectious process at this time. Will however give one-time dose of Lasix 20 mg IV at this time with careful monitoring of urine output and response. (2) Acute renal failure Current Visit: Yes Status: Acute Plan to address problem: Overall renal function has stabilized over the last couple of days. Will monitor closely. Avoid all nephrotoxins and maintain mean arterial pressures above 65 mmHg. (3) Appendicitis with perforation Current Visit: Yes Status: Acute Plan to address problem: Status post left hemicolectomy with appendectomy (4) Hypoalbuminemia due to protein-calorie malnutrition Current Visit: Yes Status: Acute Plan to address problem: Continuing on TPN at this time. (5) Hypokalemia Current Visit: Yes Status: Acute Plan to address problem: Replete per protocol. Subjective Principal diagnosis: BRYANNA Interval history: Patient seen this morning in the intensive care unit. She was transferred secondary to worsening respiratory distress and respiratory failure with need fo r intubation. Currently on pressor support at this time. Renal functions this morning remained stable with Doss catheter in place. Approximately 200 cc of urine output noted in Doss at this time. CTA did not show evidence of acute pulmonary embolus but did show worsening bilateral opacities concerning for pneumonia versus possible volume overload and pulmonary edema. Patient was tested for COVID-19 which is negative at this time. Objective - Vital Signs Vital signs: Vital Signs - 12hr 10/09/21 10/09/21 10/09/21 01:50 02:00 02:10 Temperature Pulse Rate 84 84 84 Pulse Rate [ From Monitor] Respiratory 30 H 30 H 30 H Rate Blood Pressure 133/81 137/83 134/82 O2 Sat by Pulse 99 99 99 Oximetry 10/09/21 10/09/21 10/09/21 02:20 02:30 02:40 Temperature Pulse Rate 91 H 89 88 Pulse Rate [ From Monitor] Respiratory 30 H 30 H 30 H Rate Blood Pressure 122/89 134/81 132/85 O2 Sat by Pulse 95 97 97 Oximetry 10/09/21 10/09/21 10/09/21 02:50 03:00 03:10 Temperature Pulse Rate 86 87 84 Pulse Rate [ From Monitor] Respiratory 30 H 30 H 30 H Rate Blood Pressure 127/85 125/84 127/83 O2 Sat by Pulse 99 99 100 Oximetry 10/09/21 10/09/21 10/09/21 03:20 03:30 03:40 Temperature Pulse Rate 87 85 85 Pulse Rate [ From Monitor] Respiratory 30 H 30 H 30 H Rate Blood Pressure 127/84 124/80 124/80 O2 Sat by Pulse 98 100 100 Oximetry 10/09/21 10/09/21 10/09/21 03:50 04:00 04:10 Temperature 99.8 F H Pulse Rate 83 94 H 83 Pulse Rate [ From Monitor] Respiratory 30 H 30 H 30 H Rate Blood Pressure 126/80 135/93 124/82 O2 Sat by Pulse 100 99 100 Oximetry 10/09/21 10/09/21 10/09/21 04:15 04:20 04:30 Temperature Pulse Rate 83 82 83 Pulse Rate [ From Monitor] Respiratory 30 H 30 H Rate Blood Pressure 124/83 128/84 126/83 O2 Sat by Pulse 100 100 100 Oximetry 10/09/21 10/09/21 10/09/21 04:40 04:50 05:00 Temperature Pulse Rate 86 83 80 Pulse Rate [ From Monitor] Respiratory 26 H 30 H 30 H Rate Blood Pressure 108/71 123/85 125/83 O2 Sat by Pulse 100 100 100 Oximetry 10/09/21 10/09/21 10/09/21 05:10 05:20 05:30 Temperature Pulse Rate 78 80 78 Pulse Rate [ From Monitor] Respiratory 30 H 30 H 30 H Rate Blood Pressure 125/85 125/84 121/80 O2 Sat by Pulse 100 100 100 Oximetry 10/09/21 10/09/21 10/09/21 05:40 05:50 06:00 Temperature Pulse Rate 77 75 74 Pulse Rate [ From Monitor] Respiratory 30 H 30 H 30 H Rate Blood Pressure 124/84 124/82 127/83 O2 Sat by Pulse 100 100 100 Oximetry 10/09/21 10/09/21 10/09/21 06:10 06:20 06:30 Temperature Pulse Rate 74 75 74 Pulse Rate [ From Monitor] Respiratory 30 H 30 H 30 H Rate Blood Pressure 128/79 127/82 127/81 O2 Sat by Pulse 100 100 100 Oximetry 10/09/21 10/09/21 10/09/21 06:40 06:50 07:00 Temperature Pulse Rate 73 76 72 Pulse Rate [ From Monitor] Respiratory 30 H 30 H 30 H Rate Blood Pressure 131/81 128/83 132/83 O2 Sat by Pulse 100 100 100 Oximetry 10/09/21 10/09/21 10/09/21 07:10 07:15 07:20 Temperature Pulse Rate 81 82 82 Pulse Rate [ From Monitor] Respiratory 24 26 H Rate Blood Pressure 125/80 125/80 124/80 O2 Sat by Pulse 99 99 97 Oximetry 10/09/21 10/09/21 10/09/21 07:30 07:40 07:50 Temperature Pulse Rate 85 88 90 Pulse Rate [ From Monitor] Respiratory 28 H 28 H 28 H Rate Blood Pressure 116/77 114/76 101/65 O2 Sat by Pulse 95 98 98 Oximetry 10/09/21 10/09/21 10/09/21 08:00 08:07 08:10 Temperature 98.1 F Pulse Rate 91 H 91 H 92 H Pulse Rate [ 91 H From Monitor] Respiratory 28 H 28 H Rate Blood Pressure 98/60 97/60 O2 Sat by Pulse 99 99 99 Oximetry 10/09/21 10/09/21 10/09/21 08:20 08:31 08:40 Temperature Pulse Rate 93 H 115 H 91 H Pulse Rate [ From Monitor] Respiratory 28 H 19 20 Rate Blood Pressure 97/56 119/87 103/67 O2 Sat by Pulse 99 100 95 Oximetry 10/09/21 10/09/21 10/09/21 08:50 09:00 09:10 Temperature Pulse Rate 90 88 88 Pulse Rate [ From Monitor] Respiratory 20 24 19 Rate Blood Pressure 104/74 102/68 100/67 O2 Sat by Pulse 91 95 92 Oximetry 10/09/21 10/09/21 10/09/21 09:20 09:30 09:40 Temperature Pulse Rate 86 85 84 Pulse Rate [ From Monitor] Respiratory 15 24 Rate Blood Pressure 102/68 99/65 98/67 O2 Sat by Pulse 92 93 91 Oximetry 10/09/21 10/09/21 10/09/21 09:50 10:00 10:45 Temperature Pulse Rate 78 104 H 140 H Pulse Rate [ From Monitor] Respiratory 21 Rate Blood Pressure 99/64 100/63 102/68 O2 Sat by Pulse 93 92 96 Oximetry 10/09/21 10/09/21 10/09/21 10:46 10:51 11:01 Temperature Pulse Rate 76 95 H Pulse Rate [ From Monitor] Respiratory 18 20 Rate Blood Pressure 100/63 100/63 100/63 O2 Sat by Pulse 90 79 L 95 Oximetry 10/09/21 10/09/21 10/09/21 11:10 11:21 11:30 Temperature Pulse Rate 82 82 79 Pulse Rate [ From Monitor] Respiratory 29 H 12 24 Rate Blood Pressure 115/76 116/82 120/81 O2 Sat by Pulse 79 L 94 98 Oximetry 10/09/21 10/09/21 10/09/21 11:41 11:51 12:00 Temperature 97.6 F Pulse Rate 79 84 81 Pulse Rate [ 81 From Monitor] Respiratory 23 25 H 23 Rate Blood Pressure 120/81 113/77 112/75 O2 Sat by Pulse 96 97 97 Oximetry 10/09/21 10/09/21 10/09/21 12:11 12:21 12:30 Temperature Pulse Rate 84 81 83 Pulse Rate [ From Monitor] Respiratory 24 24 20 Rate Blood Pressure 112/75 110/69 107/71 O2 Sat by Pulse 98 98 98 Oximetry 10/09/21 10/09/21 10/09/21 12:41 12:51 13:00 Temperature Pulse Rate 82 82 82 Pulse Rate [ From Monitor] Respiratory 24 24 24 Rate Blood Pressure 107/71 109/73 110/73 O2 Sat by Pulse 99 99 98 Oximetry 10/09/21 10/09/21 13:11 13:21 Temperature Pulse Rate 80 79 Pulse Rate [ From Monitor] Respiratory 24 24 Rate Blood Pressure 110/73 112/72 O2 Sat by Pulse 99 99 Oximetry - General Appearance General appearance: sedated on ventilator, intubated EENT: ATNC Neck: no JVD Respiratory: Present: Decreased Breath Sounds Cardiology: regular Gastrointestinal: normal Integumentary: no rash Musculoskeletal: deferred - Lab 10/09/21 05:31 10/09/21 05:31 Most recent lab results ABG pH 7.352 pH Units (7.350-7.450) 10/09/21 12:08 ABG pCO2 42.0 mm Hg 10/09/21 12:08 ABG pO2 54.3 mm Hg (80.0-90.0) L 10/09/21 12:08 ABG HCO3 22.8 mmol/L (20.0-26.0) 10/09/21 12:08 ABG O2 Saturation 86.6 % (95.0-99.0) L 10/09/21 12:08 Calcium 7.5 mg/dL (8.4-10.2) L 10/09/21 05:31 Phosphorus 4.00 mg/dL (2.5-4.5) 10/09/21 05:31 Magnesium 1.90 mg/dL (1.7-2.3) 10/09/21 05:31 - Allied health notes Allied health notes reviewed: nursing Medications & Allergies - Medications Allergies/Adverse Reactions: Allergies No Known Allergies Allergy (Verified 09/24/21 12:21) Home Medications: Home Medications Medication Instructions Recorded Confirmed Last Taken Type No Known Home Medications [No 09/27/21 09/27/21 Unknown History Reported Home Medications] Active Medications: Generic Name Dose Route Start Last Admin Trade Name Freq PRN Reason Stop Dose Admin Acetaminophen 650 mg 10/08/21 21:38 Acetaminophen 325 Mg Tab PO Q6H PRN Pain, Mild (1-3) Albuterol 2.5 mg 09/24/21 18:07 Albuterol 2.5 Mg/3 Ml Nebu IH Q4HRT PRN Shortness Of Breath Dextrose 0 ml 10/03/21 12:37 Dextrose 10% *Hypoglycemia IV PRN PRN Hypoglycemia Diphenhydramine HCl 25 mg 10/04/21 15:14 10/07/21 00:34 Diphenhydramine 50 Mg/Ml Vial IV 25 mg Q6H PRN Administration Itching Famotidine 20 mg 10/08/21 22:00 10/09/21 09:22 Famotidine 20 Mg/2 Ml Inj IV 20 mg BID JAZ Administration Fentanyl 50 mcg 10/08/21 22:10 Fentanyl 100 Mcg/2 Ml Inj IV Q10MIN PRN ANALGESIA Heparin Sodium (Porcine) 5,000 unit 10/07/21 06:00 10/09/21 13:02 Heparin 5,000 Unit/1 Ml Vial SUB-Q 5,000 unit Q8HR JAZ Administration Hydromorphone HCl 1 mg 10/03/21 14:00 10/08/21 17:31 Hydromorphone 1 Mg/1 Ml Inj IV 1 mg Q3H PRN Administration Pain , Severe (7-10) Hydromorphone HCl 0.25 mg 10/08/21 21:38 Hydromorphone 1 Mg/1 Ml Inj IV Q4H PRN Pain, Moderate (4-6) Hydrophilic Ointment 1 applic 10/08/21 21:00 Lip Therapy Vaseline TP Q2HR PRN Dry Lips Metronidazole 500 mg in 100 mls @ 100 mls/hr 10/02/21 16:00 10/09/21 12:25 Flagyl 500 Mg/100 Ml IV Infused Q8H [facility] Infusion Protocol Amino Acids/Electrolytes/Dextrose 2,400 mls @ 100 mls/hr 10/08/21 20:00 10/08/21 23:48 Tpn Adult IV 10/09/21 19:59 100 mls/hr DAILY@2000 JAZ Administration Protocol Linezolid 600 mg in 300 mls @ 300 mls/hr 10/08/21 15:00 10/09/21 07:35 Zyvox 600mg/300ml IV Infused Q12H [facility] Infusion Protocol Propofol 1,000 mg in 100 mls @ 2.694 mls/hr 10/08/21 21:00 10/09/21 12:35 Diprivan 10 Mg/Ml IV 37.12 mcg/kg/min TITR JAZ 20 mls/hr Administration Protocol 5 MCG/KG/MIN Cefepime HCl 2 gm in 100 mls @ 200 mls/hr 10/08/21 22:00 10/09/21 11:55 Cefepime/Ns 2 Gm/100 Ml IV Infused Q12H [facility] Infusion Protocol Fentanyl Citrate 2,000 mcg in 100 mls @ 4.49 mls/hr 10/08/21 23:00 10/09/21 10:10 Fentanyl Drip Premix IV 4 mcg/kg/hr TITR JAZ 17.96 mls/hr Administration Protocol 1 MCG/KG/HR Vasopressin 20 unit/ Sodium 101 mls @ 9.09 mls/hr 10/08/21 23:00 10/09/21 09:35 Chloride IV 0.03 units/min TITR JAZ 9.09 mls/hr Administration Protocol 0.03 UNITS/MIN NORepinephrine/NS 8 MG-250 ML 8 mg in 250 mls @ 3.75 mls/hr 10/08/21 23:45 Norepinephrine/Ns 8 Mg-250 Ml (Double Conc) IV TITRATE [facility] Protocol 2 MCG/MIN Sodium Chloride 1,000 mls @ 75 mls/hr 10/09/21 08:30 Nacl 0.9% 1000 Ml IV 10/09/21 20:00 DIRECT JAZ Amino Acids/Electrolytes/Dextrose 2,000 mls @ 83.3 mls/hr 10/09/21 20:00 Tpn Adult IV 10/10/21 19:59 DAILY@1999 [facility] Protocol Insulin Human Regular 0 units 10/03/21 13:00 10/09/21 12:35 Insulin Regular, Human 100 Units/1 Ml SUB-Q 2 units Q6H [facility] Administration Protocol Labetalol HCl 10 mg 10/01/21 08:31 10/08/21 13:22 Labetalol 20 Mg/4 Ml Inj IV 10 mg Q6H PRN Administration Hypertension Multi-Ingred Cream/Lotion/Oil/Oint 1 applic 10/08/21 21:00 Mineral Oil/Petrolatum, White Ophth Oint 3.5 Gm OU Q4HR PRN Dry Eye(s) Naloxone HCl 0.1 mg 10/03/21 14:00 Naloxone 0.4 Mg/1 Ml Inj IV Q2MIN PRN Res Rate </= 8 or 02 SAT < 92% Ondansetron HCl 4 mg 09/24/21 18:07 10/05/21 11:39 Ondansetron 4 Mg/2 Ml Inj IV 4 mg Q8H PRN Administration Nausea And Vomiting Phenol 1 spray 10/02/21 13:00 10/03/21 10:23 Phenol 1.4% 177 Ml Bottle MM 1 spray PRN PRN Administration Sore Throat Scopolamine 1 each 10/04/21 10:00 10/07/21 14:14 Scopolamine Transdermal Patch 72 Hr TD 1 each Q3D JAZ Administration Senna/Docusate Sodium 1 tab 10/08/21 22:00 10/09/21 09:25 Sennosides/Docusate Sodium 8.6/50 Mg Tab FEEDTUBE Not Given BID JAZ Sodium Chloride 10 ml 09/24/21 22:00 10/09/21 09:24 Sodium Chloride 0.9% 10 Ml Flush Syringe IV 10 ml BID JAZ Administration Sodium Chloride 10 ml 09/24/21 18:07 09/25/21 08:34 Sodium Chloride 0.9% 10 Ml Flush Syringe IV 10 ml PRN PRN Administration LINE FLUSH
[2021-10-09] MEDS ORDERED: FUROSEMIDE 40 MG/4 ML INJ IV ONE (13:45)
--- NOTE | 2021-10-09 14:32 | Progress Note ---
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 Afebrile and stable at this time however requiring vent support after acute res piratory failure. I spoke with Sudha Champagne and Massiel (radiology) who believe the free air is extraluminal however likely contained since there is no large free fluid associated with it and it is well circumscribed. Microperforation a possibility. If she remains stable plan to take to IR Monday for image guided drain placement into the air pocket. Will contine to follow closely. Mother was updated on current condition and treatment plan. Appreciate nephrology input with renal function improving slowly, continues to have good urine out put. Appreciate urology input, may plan for cysto to verify left urinary anatomy. Leukocytosis is stable with slight decrease compared to yesterday. Afebrile with resolution of tachycardia. Continue abx per ID. Subjective Date of service: 10/09/21 Narrative: Overnight patient went into respiratory distress and was transferred to ICU where she was intubated and placed on vent. It was documented she had large bowel movement. She had a CT chest, abd pelvis that showed no pulmonary embolism , but contained free air in the abdomen with no free fluid. Parents were at bedside. Objective Vital Signs - 12hr 10/09/21 10/09/21 10/09/21 02:30 02:40 02:50 Temperature Pulse Rate 89 88 86 Pulse Rate [ From Monitor] Respiratory 30 H 30 H 30 H Rate Blood Pressure 134/81 132/85 127/85 O2 Sat by Pulse 97 97 99 Oximetry 10/09/21 10/09/21 10/09/21 03:00 03:10 03:20 Temperature Pulse Rate 87 84 87 Pulse Rate [ From Monitor] Respiratory 30 H 30 H 30 H Rate Blood Pressure 125/84 127/83 127/84 O2 Sat by Pulse 99 100 98 Oximetry 10/09/21 10/09/21 10/09/21 03:30 03:40 03:50 Temperature Pulse Rate 85 85 83 Pulse Rate [ From Monitor] Respiratory 30 H 30 H 30 H Rate Blood Pressure 124/80 124/80 126/80 O2 Sat by Pulse 100 100 100 Oximetry 10/09/21 10/09/21 10/09/21 04:00 04:10 04:15 Temperature 99.8 F H Pulse Rate 94 H 83 83 Pulse Rate [ From Monitor] Respiratory 30 H 30 H Rate Blood Pressure 135/93 124/82 124/83 O2 Sat by Pulse 99 100 100 Oximetry 10/09/21 10/09/21 10/09/21 04:20 04:30 04:40 Temperature Pulse Rate 82 83 86 Pulse Rate [ From Monitor] Respiratory 30 H 30 H 26 H Rate Blood Pressure 128/84 126/83 108/71 O2 Sat by Pulse 100 100 100 Oximetry 10/09/21 10/09/21 10/09/21 04:50 05:00 05:10 Temperature Pulse Rate 83 80 78 Pulse Rate [ From Monitor] Respiratory 30 H 30 H 30 H Rate Blood Pressure 123/85 125/83 125/85 O2 Sat by Pulse 100 100 100 Oximetry 10/09/21 10/09/21 10/09/21 05:20 05:30 05:40 Temperature Pulse Rate 80 78 77 Pulse Rate [ From Monitor] Respiratory 30 H 30 H 30 H Rate Blood Pressure 125/84 121/80 124/84 O2 Sat by Pulse 100 100 100 Oximetry 10/09/21 10/09/21 10/09/21 05:50 06:00 06:10 Temperature Pulse Rate 75 74 74 Pulse Rate [ From Monitor] Respiratory 30 H 30 H 30 H Rate Blood Pressure 124/82 127/83 128/79 O2 Sat by Pulse 100 100 100 Oximetry 10/09/21 10/09/21 10/09/21 06:20 06:30 06:40 Temperature Pulse Rate 75 74 73 Pulse Rate [ From Monitor] Respiratory 30 H 30 H 30 H Rate Blood Pressure 127/82 127/81 131/81 O2 Sat by Pulse 100 100 100 Oximetry 10/09/21 10/09/21 10/09/21 06:50 07:00 07:10 Temperature Pulse Rate 76 72 81 Pulse Rate [ From Monitor] Respiratory 30 H 30 H 24 Rate Blood Pressure 128/83 132/83 125/80 O2 Sat by Pulse 100 100 99 Oximetry 10/09/21 10/09/21 10/09/21 07:15 07:20 07:30 Temperature Pulse Rate 82 82 85 Pulse Rate [ From Monitor] Respiratory 26 H 28 H Rate Blood Pressure 125/80 124/80 116/77 O2 Sat by Pulse 99 97 95 Oximetry 10/09/21 10/09/21 10/09/21 07:40 07:50 08:00 Temperature 98.1 F Pulse Rate 88 90 91 H Pulse Rate [ From Monitor] Respiratory 28 H 28 H 28 H Rate Blood Pressure 114/76 101/65 98/60 O2 Sat by Pulse 98 98 99 Oximetry 10/09/21 10/09/21 10/09/21 08:07 08:10 08:20 Temperature Pulse Rate 91 H 92 H 93 H Pulse Rate [ 91 H From Monitor] Respiratory 28 H 28 H Rate Blood Pressure 97/60 97/56 O2 Sat by Pulse 99 99 99 Oximetry 10/09/21 10/09/21 10/09/21 08:31 08:40 08:50 Temperature Pulse Rate 115 H 91 H 90 Pulse Rate [ From Monitor] Respiratory 19 20 20 Rate Blood Pressure 119/87 103/67 104/74 O2 Sat by Pulse 100 95 91 Oximetry 10/09/21 10/09/21 10/09/21 09:00 09:10 09:20 Temperature Pulse Rate 88 88 86 Pulse Rate [ From Monitor] Respiratory 24 19 15 Rate Blood Pressure 102/68 100/67 102/68 O2 Sat by Pulse 95 92 92 Oximetry 10/09/21 10/09/21 10/09/21 09:30 09:40 09:50 Temperature Pulse Rate 85 84 78 Pulse Rate [ From Monitor] Respiratory 24 Rate Blood Pressure 99/65 98/67 99/64 O2 Sat by Pulse 93 91 93 Oximetry 10/09/21 10/09/21 10/09/21 10:00 10:45 10:46 Temperature Pulse Rate 104 H 140 H Pulse Rate [ From Monitor] Respiratory 21 Rate Blood Pressure 100/63 102/68 100/63 O2 Sat by Pulse 92 96 90 Oximetry 10/09/21 10/09/21 10/09/21 10:51 11:01 11:10 Temperature Pulse Rate 76 95 H 82 Pulse Rate [ From Monitor] Respiratory 18 20 29 H Rate Blood Pressure 100/63 100/63 115/76 O2 Sat by Pulse 79 L 95 79 L Oximetry 10/09/21 10/09/21 10/09/21 11:21 11:30 11:41 Temperature Pulse Rate 82 79 79 Pulse Rate [ From Monitor] Respiratory 12 24 23 Rate Blood Pressure 116/82 120/81 120/81 O2 Sat by Pulse 94 98 96 Oximetry 10/09/21 10/09/21 10/09/21 11:51 12:00 12:11 Temperature 97.6 F Pulse Rate 84 81 84 Pulse Rate [ 81 From Monitor] Respiratory 25 H 23 24 Rate Blood Pressure 113/77 112/75 112/75 O2 Sat by Pulse 97 97 98 Oximetry 10/09/21 10/09/21 10/09/21 12:21 12:30 12:41 Temperature Pulse Rate 81 83 82 Pulse Rate [ From Monitor] Respiratory 24 20 24 Rate Blood Pressure 110/69 107/71 107/71 O2 Sat by Pulse 98 98 99 Oximetry 10/09/21 10/09/21 10/09/21 12:51 13:00 13:11 Temperature Pulse Rate 82 82 80 Pulse Rate [ From Monitor] Respiratory 24 24 24 Rate Blood Pressure 109/73 110/73 110/73 O2 Sat by Pulse 99 98 99 Oximetry 10/09/21 13:21 Temperature Pulse Rate 79 Pulse Rate [ From Monitor] Respiratory 24 Rate Blood Pressure 112/72 O2 Sat by Pulse 99 Oximetry - General physical appearance no distress - Respiratory normal expansion, normal respiratory effort, other (on ventilator) - Abdomen soft, distended, other (midline wound with serous stained gauze, julia intact. YURIDIA drain with scant amount serous drainage.) - Genitourinary other (brantley with clear jeannie urine) - Labs 10/09/21 05:31 10/09/21 05:31 Diabetes panel 10/09/21 Range/Units 05:31 Sodium 136 L (137-145) mmol/L Potassium 4.8 (3.6-5.0) mmol/L Chloride 102.3 (98-107) mmol/L Carbon Dioxide 20 L (22-30) mmol/L BUN 32 H (7-17) mg/dL Creatinine 1.5 H (0.6-1.2) mg/dL Glucose 214 H (65-100) mg/dL Calcium 7.5 L (8.4-10.2) mg/dL AST 26 (5-40) units/L ALT 11 (7-56) units/L Alkaline Phosphatase 63 (35-129) units/L Total Protein 5.8 L (6.3-8.2) g/dL Albumin 2.3 L (3.9-5) g/dL Calcium panel 10/09/21 Range/Units 05:31 Calcium 7.5 L (8.4-10.2) mg/dL Phosphorus 4.00 (2.5-4.5) mg/dL Albumin 2.3 L (3.9-5) g/dL Pituitary panel 10/09/21 Range/Units 05:31 Sodium 136 L (137-145) mmol/L Potassium 4.8 (3.6-5.0) mmol/L Chloride 102.3 (98-107) mmol/L Carbon Dioxide 20 L (22-30) mmol/L BUN 32 H (7-17) mg/dL Creatinine 1.5 H (0.6-1.2) mg/dL Glucose 214 H (65-100) mg/dL Calcium 7.5 L (8.4-10.2) mg/dL Adrenal panel 10/09/21 Range/Units 05:31 Sodium 136 L (137-145) mmol/L Potassium 4.8 (3.6-5.0) mmol/L Chloride 102.3 (98-107) mmol/L Carbon Dioxide 20 L (22-30) mmol/L BUN 32 H (7-17) mg/dL Creatinine 1.5 H (0.6-1.2) mg/dL Glucose 214 H (65-100) mg/dL Calcium 7.5 L (8.4-10.2) mg/dL Total Bilirubin 0.30 (0.1-1.2) mg/dL AST 26 (5-40) units/L ALT 11 (7-56) units/L Alkaline Phosphatase 63 (35-129) units/L Total Protein 5.8 L (6.3-8.2) g/dL Albumin 2.3 L (3.9-5) g/dL
--- NOTE | 2021-10-09 15:20 | Event Note ---
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 CT obtained demonstrating extraluminal gas in a contained collection. Plan for drainage of collection and allow for bowel rest. CT staff unavailable to perform procedures on weekends due to staffing issues. Plan for CT drainage on Monday.
[2021-10-09] MEDS ORDERED: FUROSEMIDE 20 MG/2 ML INJ ONE (15:50)
[2021-10-09] MEDS ORDERED: TOTAL PARENTERAL NUTRITION 2,000 ML IV SCH (20:00)
[2021-10-10] MEDS: metroNIDAZOLE/NS 500 MG/100 ML 500 MG/100 ML BAG IV SCH ×3 (00:32→15:56)
[2021-10-10] MEDS: INSULIN REGULAR, HUMAN 100 UNITS/1 ML SUB-Q SCH ×4 (00:42→18:35)
[2021-10-10] MEDS: fentaNYL DRIP Premix 2,000 MCG/100 ML BAG IV SCH ×4 (01:11→18:34)
[2021-10-10] MEDS: LINEZOLID 600 MG/300 ML BAG IV SCH ×2 (02:53→14:08)
--- NOTE | 2021-10-10 03:43 | XRay Report ---
CHEST 1 VIEW INDICATION / CLINICAL INFORMATION: follow up respiratory failure. COMPARISON: Chest x-ray 10/08/2021 FINDINGS: SUPPORT DEVICES: Stable, satisfactory device positioning. HEART / MEDIASTINUM: Stable borderline to mild cardiomegaly. LUNGS / PLEURA: Interval partial clearing of bilateral airspace opacities. No pneumothorax. ADDITIONAL FINDINGS: No significant additional findings. IMPRESSION: 1. Interval improvement in pulmonary edema. Stable tubes and lines. Signer Name: Lukas Elizabeth II, MD Signed: 10/10/2021 3:38 AM Workstation Name: [id number]
[2021-10-10 05:30] LABS: Hematocrit 21.8 % (30.3-42.9); Hemoglobin 7.1 gm/dl (10.1-14.3); Mean Corpuscular HGB Conc 33 % (30-34); Mean Corpuscular Volume 86 fl (79-97); Platelet Count 740 K/mm3 (140-440); Red Blood Count 2.54 M/mm3 (3.65-5.03); Red Cell Distribution Width 16.6 % (13.2-15.2)
[2021-10-10 05:46] LABS: Calcium 7.8 mg/dL (8.4-10.2)
[2021-10-10] MEDS: HEPARIN 5,000 UNIT/1 ML VIAL SUB-Q SCH ×3 (05:59→21:41)
[2021-10-10 06:24] LABS: ABG Base Excess -1.7 mmol/L (-2.0-3.0); ABG HCO3 21.3 mmol/L (20.0-26.0); ABG Methemoglobin 0.5 % (0.0-1.5); ABG Oxygen Saturation 99.4 % (95.0-99.0); ABG PCO2 27.6 mm Hg; ABG PH 7.505 pH Units (7.350-7.450); ABG PO2 246.1 mm Hg (80.0-90.0)
--- NOTE | 2021-10-10 06:47 | Progress Note ---
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 Open left hemicolectomy and partial omentectomy Peritonitis Leukocytosis Diverticulitis with absces -CT abd/pelvis showed diverticulitis with abscess -General surgery following, assistance appreciated -s/p diagnositic laparatomy and drain placement 09/26/2021 Returned to the OR on 09/30/2021 for left hemicolectomy, appendectomy, and partial omentectomy -Wound culture +VRE Acute renal failure 09/08 ATN/Vasomotor nephropathy Acute blood loss anemia Gross Hematuria-resolved -09/08 to surgical procedures-- c/f ureteral injury -s/p 3 units of pRBCs since admission - continue to titrate supplemental oxygen to keep SPO2 88-90% - VAP bundle addressed, aspiration precautions, HOB >40 -Monitor airway pressures, wean down PEEP to 14, decrease tidal volume to 6ml/kg -CXR , ABG as indicated -Volume resuscitation while on vasopressor -Titrate vasopressor support to MAP>65 -trend temperature curve, trend WCC -Antibiotics per ID. -NPO, TPN for nutritional support - continue bronchodilators with pulmonary hygiene per RT - Accuchecks with glycemic control per SSI (While critically ill target blood glucose of 140-180 mg/dL; avoid hypoglycemia) - sedation prn for target RASS 0 to -1, decrease Propofol -Titrate analgesia to CPOT >3 - continue to avoid benzodiazepines, reduce the possibility of delirium - prn analgesia per CPOT score - Maintenance of sleep-wake cycle, avoid delirium - Stress prophylaxis -VTE prophylaxis- SCDs, the patient has had acute blood loss anemia, required supportive transfusions -Get transthoracic echocardiogram to evaluate EF -Supportive transfusions, to keep HgB >7g/dL -Avoid nephrotoxins and dose all medications for GFR and CrCL - mobility, off loading and frequent turning to prevent pressure ulcer - Monitor hemodynamics closely - continue other care per attending / other consultants CONDITION: CRITICAL PROGNOSIS: GUARDED CODE STATUS: FULL CODE The high probability of a clinically significant, sudden or life-threatening deterioration of the [respiratory, cardiovascular and hematologic] system(s) required my full and direct attention, intervention and personal management. The aggregate critical care time was [35] minutes without overlap. 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 s/p appendectomy; VRE infection; Open left hemicolectomy and partial omentectomy; Peritonitis; Diverticulitis with abscess;BRYANNA; ABLA; Gross Hematuria Seen and examined at bedside; 24hour events reviewed; nursing and respiratory care staff consulted; no adverse overnight events reported to me; resting in bed; remains on MVS; denies acute chest pain; denies N/V/F/C; good pain control per patient Objective Vital Signs - 12hr 10/09/21 10/09/21 10/09/21 18:51 19:00 19:11 Temperature Pulse Rate 100 H 98 H 97 H Pulse Rate [ From Monitor] Respiratory 26 H 26 H 26 H Rate Blood Pressure 135/87 116/81 116/81 O2 Sat by Pulse 100 100 100 Oximetry 10/09/21 10/09/21 10/09/21 19:21 19:30 19:41 Temperature Pulse Rate 93 H 102 H 96 H Pulse Rate [ From Monitor] Respiratory 26 H 16 26 H Rate Blood Pressure 118/76 112/76 112/76 O2 Sat by Pulse 100 100 100 Oximetry 10/09/21 10/09/21 10/09/21 19:51 20:00 20:11 Temperature 97.6 F Pulse Rate 93 H 101 H 92 H Pulse Rate [ 95 H From Monitor] Respiratory 26 H 26 H 26 H Rate Blood Pressure 116/79 117/77 113/74 O2 Sat by Pulse 100 100 100 Oximetry 10/09/21 10/09/21 10/09/21 20:30 21:00 21:30 Temperature Pulse Rate 94 H 95 H 95 H Pulse Rate [ From Monitor] Respiratory 26 H 26 H 22 Rate Blood Pressure 110/72 117/77 113/76 O2 Sat by Pulse 100 100 100 Oximetry 10/09/21 10/09/21 10/09/21 22:00 22:30 22:33 Temperature Pulse Rate 92 H 92 H 89 Pulse Rate [ From Monitor] Respiratory 26 H 26 H 26 H Rate Blood Pressure 116/71 103/70 103/70 O2 Sat by Pulse 100 100 100 Oximetry 10/09/21 10/09/21 10/09/21 23:00 23:12 23:30 Temperature Pulse Rate 91 H 89 91 H Pulse Rate [ From Monitor] Respiratory 18 20 Rate Blood Pressure 107/71 107/71 101/67 O2 Sat by Pulse 100 100 100 Oximetry 10/10/21 10/10/21 10/10/21 00:00 00:30 01:00 Temperature 97.8 F Pulse Rate 89 95 H 87 Pulse Rate [ 95 H From Monitor] Respiratory 26 H 23 26 H Rate Blood Pressure 104/65 114/73 102/67 O2 Sat by Pulse 100 100 100 Oximetry 10/10/21 10/10/21 10/10/21 01:30 02:00 02:30 Temperature Pulse Rate 84 86 82 Pulse Rate [ From Monitor] Respiratory 27 H 26 H 16 Rate Blood Pressure 102/63 102/59 107/66 O2 Sat by Pulse 100 100 100 Oximetry 10/10/21 10/10/21 10/10/21 03:00 03:30 04:00 Temperature 97.9 F Pulse Rate 81 78 77 Pulse Rate [ 95 H From Monitor] Respiratory 25 H 26 H 26 H Rate Blood Pressure 108/59 104/58 107/65 O2 Sat by Pulse 100 100 100 Oximetry 10/10/21 10/10/21 10/10/21 04:30 05:00 05:30 Temperature Pulse Rate 80 84 76 Pulse Rate [ From Monitor] Respiratory 19 16 26 H Rate Blood Pressure 104/62 105/64 105/60 O2 Sat by Pulse 100 100 100 Oximetry 10/10/21 06:00 Temperature Pulse Rate 82 Pulse Rate [ From Monitor] Respiratory 26 H Rate Blood Pressure 94/54 O2 Sat by Pulse 100 Oximetry Constitutional: no acute distress, alert, other (Orally intuabted, ) Eyes: non-icteric ENT: oropharynx dry, other (orally intubated ETT 7.5cm @24 at the lip) Neck: supple, other (RIJCVL) Effort: mildly labored Ascultation: Bilateral: diminished breath sounds, rhonchi Cardiovascular: regular rate and rhythm, other (S1,S2) Gastrointestinal: hypoactive bowel sounds, other (YURIDIA drains, anterior abdominal dressings, Doss catheter) Integumentary: other (tatooed) Extremities: cool, edema Neurologic: normal mental status, non-focal exam, pupils equal and round, motor strength normal and Psychiatric: mood appropriate, affect normal CBC and BMP: 10/18/21 04:28 10/18/21 04:28 ABG, PT/INR, D-dimer: ABG ABG pH 7.505 pH Units (7.350-7.450) H 10/10/21 Unknown ABG pCO2 27.6 mm Hg 10/10/21 Unknown ABG pO2 246.1 mm Hg (80.0-90.0) H 10/10/21 Unknown ABG O2 Saturation 99.4 % (95.0-99.0) H 10/10/21 Unknown PT/INR, D-dimer PT 17.8 Sec. (12.2-14.9) H 10/05/21 04:40 INR 1.31 (0.87-1.13) H 10/05/21 04:40 D-Dimer > 01361 ng/mlDDU (0-234) H 10/09/21 08:45 Abnormal lab findings: Abnormal Labs 09/24/21 09/24/21 09/24/21 14:49 14:58 14:58 WBC 32.4 H RBC Hgb Hct MCH RDW Plt Count 535 H [place] # (Auto) Seg Neutrophils % Seg Neuts % (Manual) 82.0 H Lymphocytes % (Manual) 2.0 L Monocytes % (Manual) Nucleated RBC % Seg Neutrophils # Seg Neutrophils # Man 26.6 H Lymphocytes # (Manual) 0.6 L Monocytes # (Manual) 1.6 H PT INR D-Dimer ABG pH ABG pO2 ABG HCO3 ABG O2 Saturation ABG Base Excess ABG Hemoglobin Oxyhemoglobin Sodium 134 L Potassium 3.5 L Chloride 97.6 L Carbon Dioxide BUN Creatinine Glucose 119 H POC Glucose Lactic Acid Calcium Phosphorus Magnesium Ferritin Lactate Dehydrogenase Total Creatine Kinase C-Reactive Protein Total Protein 6.1 L Albumin 3.3 L U Epithel Cells (Auto) 18.0 H Crossmatch 09/25/21 09/25/21 09/26/21 05:47 05:47 04:20 WBC 25.4 H 23.6 H RBC 3.54 L Hgb Hct MCH RDW Plt Count 466 H 486 H [place] # (Auto) Seg Neutrophils % Seg Neuts % (Manual) 93.0 H 86.0 H Lymphocytes % (Manual) 4.0 L 3.0 L Monocytes % (Manual) Nucleated RBC % Seg Neutrophils # Seg Neutrophils # Man 23.6 H 20.3 H Lymphocytes # (Manual) 1.0 L 0.7 L Monocytes # (Manual) 0.9 H PT INR D-Dimer ABG pH ABG pO2 ABG HCO3 ABG O2 Saturation ABG Base Excess ABG Hemoglobin Oxyhemoglobin Sodium 136 L Potassium 3.0 L Chloride Carbon Dioxide 21 L BUN Creatinine Glucose POC Glucose Lactic Acid Calcium 7.8 L Phosphorus Magnesium Ferritin Lactate Dehydrogenase Total Creatine Kinase C-Reactive Protein Total Protein Albumin U Epithel Cells (Auto) Crossmatch 09/26/21 09/27/21 09/27/21 04:20 08:28 08:28 WBC 20.6 H RBC 3.42 L Hgb 9.9 L Hct 29.5 L D MCH RDW Plt Count [place] # (Auto) Seg Neutrophils % Seg Neuts % (Manual) 94.1 H Lymphocytes % (Manual) 1.0 L Monocytes % (Manual) Nucleated RBC % Seg Neutrophils # Seg Neutrophils # Man 19.4 H Lymphocytes # (Manual) 0.2 L Monocytes # (Manual) PT INR D-Dimer ABG pH ABG pO2 ABG HCO3 ABG O2 Saturation ABG Base Excess ABG Hemoglobin Oxyhemoglobin Sodium Potassium 3.2 L Chloride Carbon Dioxide 20 L BUN Creatinine Glucose 137 H POC Glucose Lactic Acid Calcium 8.3 L 8.2 L Phosphorus Magnesium Ferritin Lactate Dehydrogenase Total Creatine Kinase C-Reactive Protein Total Protein Albumin U Epithel Cells (Auto) Crossmatch 09/28/21 09/28/21 09/29/21 04:55 15:35 07:02 WBC 15.1 H 16.5 H RBC 3.34 L 3.20 L Hgb 9.3 L 9.1 L Hct 28.7 L 27.3 L MCH RDW 15.3 H Plt Count 444 H 469 H [place] # (Auto) 0.9 H Seg Neutrophils % 89.3 H Seg Neuts % (Manual) 88.0 H 80.0 H Lymphocytes % (Manual) 9.0 L 8.0 L Monocytes % (Manual) Nucleated RBC % Seg Neutrophils # 14.0 H Seg Neutrophils # Man 13.3 H 13.2 H Lymphocytes # (Manual) Monocytes # (Manual) PT INR D-Dimer ABG pH ABG pO2 ABG HCO3 ABG O2 Saturation ABG Base Excess ABG Hemoglobin Oxyhemoglobin Sodium Potassium 3.3 L Chloride 109.4 H Carbon Dioxide 20 L BUN Creatinine 0.5 L Glucose POC Glucose Lactic Acid Calcium 7.9 L Phosphorus Magnesium Ferritin Lactate Dehydrogenase Total Creatine Kinase C-Reactive Protein Total Protein Albumin U Epithel Cells (Auto) Crossmatch 09/30/21 09/30/21 10/01/21 05:40 05:40 07:49 WBC 17.4 H 17.9 H RBC 3.37 L 3.32 L Hgb 9.2 L 9.3 L Hct 28.4 L 28.3 L MCH 27 L RDW 15.4 H 15.5 H Plt Count 530 H 604 H [place] # (Auto) Seg Neutrophils % Seg Neuts % (Manual) 91.0 H 72.0 H Lymphocytes % (Manual) 9.0 L 1.0 L Monocytes % (Manual) 8.0 H Nucleated RBC % 1.0 H Seg Neutrophils # Seg Neutrophils # Man 15.8 H 12.9 H Lymphocytes # (Manual) 0.2 L Monocytes # (Manual) 1.4 H PT INR D-Dimer ABG pH ABG pO2 ABG HCO3 ABG O2 Saturation ABG Base Excess ABG Hemoglobin Oxyhemoglobin Sodium Potassium 3.5 L Chloride Carbon Dioxide 21 L BUN Creatinine 0.5 L Glucose POC Glucose Lactic Acid Calcium 8.0 L Phosphorus Magnesium Ferritin Lactate Dehydrogenase Total Creatine Kinase C-Reactive Protein Total Protein Albumin U Epithel Cells (Auto) Crossmatch 10/01/21 10/01/21 10/02/21 07:49 10:45 05:41 WBC 23.2 H RBC 2.90 L Hgb 7.9 L Hct 24.8 L MCH 27 L RDW 15.3 H Plt Count 621 H [place] # (Auto) Seg Neutrophils % Seg Neuts % (Manual) 88.0 H Lymphocytes % (Manual) 2.0 L Monocytes % (Manual) Nucleated RBC % Seg Neutrophils # Seg Neutrophils # Man 20.4 H Lymphocytes # (Manual) 0.5 L Monocytes # (Manual) 1.4 H PT INR D-Dimer ABG pH ABG pO2 ABG HCO3 ABG O2 Saturation ABG Base Excess ABG Hemoglobin Oxyhemoglobin Sodium Potassium Chloride Carbon Dioxide 20 L BUN Creatinine 0.5 L Glucose POC Glucose Lactic Acid Calcium 7.6 L Phosphorus Magnesium Ferritin Lactate Dehydrogenase Total Creatine Kinase C-Reactive Protein Total Protein Albumin U Epithel Cells (Auto) Crossmatch See Detail 10/02/21 10/02/21 10/02/21 05:41 07:47 11:10 WBC RBC Hgb Hct MCH RDW Plt Count [place] # (Auto) Seg Neutrophils % Seg Neuts % (Manual) Lymphocytes % (Manual) Monocytes % (Manual) Nucleated RBC % Seg Neutrophils # Seg Neutrophils # Man Lymphocytes # (Manual) Monocytes # (Manual) PT INR D-Dimer ABG pH ABG pO2 ABG HCO3 ABG O2 Saturation ABG Base Excess ABG Hemoglobin Oxyhemoglobin Sodium Potassium Chloride Carbon Dioxide BUN Creatinine Glucose 130 H POC Glucose 145 H 120 H Lactic Acid Calcium 6.9 L Phosphorus Magnesium Ferritin Lactate Dehydrogenase Total Creatine Kinase C-Reactive Protein Total Protein Albumin U Epithel Cells (Auto) Crossmatch 10/02/21 10/03/21 10/03/21 16:14 04:55 04:55 WBC 26.1 H RBC 2.31 L Hgb 6.3 L Hct 19.8 L* MCH RDW 15.9 H Plt Count 598 H [place] # (Auto) Seg Neutrophils % Seg Neuts % (Manual) 82.0 H Lymphocytes % (Manual) 1.0 L Monocytes % (Manual) 10.0 H Nucleated RBC % Seg Neutrophils # Seg Neutrophils # Man 21.4 H Lymphocytes # (Manual) 0.3 L Monocytes # (Manual) 2.6 H PT INR D-Dimer ABG pH ABG pO2 ABG HCO3 ABG O2 Saturation ABG Base Excess ABG Hemoglobin Oxyhemoglobin Sodium Potassium Chloride Carbon Dioxide BUN 22 H Creatinine 1.7 H D Glucose 145 H POC Glucose 109 H Lactic Acid Calcium 6.4 L Phosphorus Magnesium 2.40 H Ferritin Lactate Dehydrogenase Total Creatine Kinase C-Reactive Protein Total Protein 4.2 L Albumin 1.6 L U Epithel Cells (Auto) Crossmatch 10/03/21 10/03/21 10/03/21 07:15 11:49 17:06 WBC RBC Hgb Hct MCH RDW Plt Count [place] # (Auto) Seg Neutrophils % Seg Neuts % (Manual) Lymphocytes % (Manual) Monocytes % (Manual) Nucleated RBC % Seg Neutrophils # Seg Neutrophils # Man Lymphocytes # (Manual) Monocytes # (Manual) PT INR D-Dimer ABG pH ABG pO2 ABG HCO3 ABG O2 Saturation ABG Base Excess ABG Hemoglobin Oxyhemoglobin Sodium Potassium Chloride Carbon Dioxide BUN Creatinine Glucose POC Glucose 162 H 171 H 174 H Lactic Acid Calcium Phosphorus Magnesium Ferritin Lactate Dehydrogenase Total Creatine Kinase C-Reactive Protein Total Protein Albumin U Epithel Cells (Auto) Crossmatch 10/03/21 10/04/21 10/04/21 23:31 04:44 04:44 WBC 26.4 H RBC 2.33 L Hgb 6.6 L Hct 19.4 L* MCH RDW 16.1 H Plt Count 602 H [place] # (Auto) Seg Neutrophils % Seg Neuts % (Manual) 80.0 H Lymphocytes % (Manual) 5.0 L Monocytes % (Manual) Nucleated RBC % Seg Neutrophils # Seg Neutrophils # Man 21.1 H Lymphocytes # (Manual) Monocytes # (Manual) 1.8 H PT INR D-Dimer ABG pH ABG pO2 ABG HCO3 ABG O2 Saturation ABG Base Excess ABG Hemoglobin Oxyhemoglobin Sodium 135 L Potassium 3.4 L Chloride Carbon Dioxide 21 L BUN 28 H Creatinine 2.0 H Glucose 171 H POC Glucose 179 H Lactic Acid Calcium 6.7 L Phosphorus 1.30 L D Magnesium 2.40 H Ferritin Lactate Dehydrogenase Total Creatine Kinase C-Reactive Protein Total Protein Albumin U Epithel Cells (Auto) Crossmatch 10/04/21 10/04/21 10/04/21 05:25 12:01 13:30 WBC RBC Hgb Hct MCH RDW Plt Count [place] # (Auto) Seg Neutrophils % Seg Neuts % (Manual) Lymphocytes % (Manual) Monocytes % (Manual) Nucleated RBC % Seg Neutrophils # Seg Neutrophils # Man Lymphocytes # (Manual) Monocytes # (Manual) PT INR D-Dimer ABG pH ABG pO2 ABG HCO3 ABG O2 Saturation ABG Base Excess ABG Hemoglobin Oxyhemoglobin Sodium Potassium Chloride Carbon Dioxide BUN Creatinine Glucose POC Glucose 174 H 172 H Lactic Acid Calcium Phosphorus Magnesium Ferritin Lactate Dehydrogenase Total Creatine Kinase C-Reactive Protein Total Protein Albumin U Epithel Cells (Auto) Crossmatch See Detail 10/04/21 10/04/21 10/04/21 16:47 20:28 22:23 WBC RBC Hgb 8.5 L Hct 25.1 L MCH RDW Plt Count [place] # (Auto) Seg Neutrophils % Seg Neuts % (Manual) Lymphocytes % (Manual) Monocytes % (Manual) Nucleated RBC % Seg Neutrophils # Seg Neutrophils # Man Lymphocytes # (Manual) Monocytes # (Manual) PT INR D-Dimer ABG pH ABG pO2 ABG HCO3 ABG O2 Saturation ABG Base Excess ABG Hemoglobin Oxyhemoglobin Sodium Potassium Chloride Carbon Dioxide BUN Creatinine Glucose POC Glucose 135 H 152 H Lactic Acid Calcium Phosphorus Magnesium Ferritin Lactate Dehydrogenase Total Creatine Kinase C-Reactive Protein Total Protein Albumin U Epithel Cells (Auto) Crossmatch 10/05/21 10/05/21 10/05/21 04:40 04:40 04:40 WBC 24.7 H RBC 3.02 L Hgb 8.4 L Hct 25.5 L MCH RDW 16.2 H Plt Count 644 H [place] # (Auto) Seg Neutrophils % Seg Neuts % (Manual) 91.0 H Lymphocytes % (Manual) 7.0 L Monocytes % (Manual) Nucleated RBC % Seg Neutrophils # Seg Neutrophils # Man 22.5 H Lymphocytes # (Manual) Monocytes # (Manual) PT 17.8 H INR 1.31 H D-Dimer ABG pH ABG pO2 ABG HCO3 ABG O2 Saturation ABG Base Excess ABG Hemoglobin Oxyhemoglobin Sodium 135 L Potassium Chloride Carbon Dioxide BUN 29 H Creatinine 2.1 H Glucose 156 H POC Glucose Lactic Acid Calcium 7.6 L Phosphorus 1.90 L D Magnesium Ferritin Lactate Dehydrogenase Total Creatine Kinase C-Reactive Protein Total Protein 5.2 L D Albumin 1.8 L U Epithel Cells (Auto) Crossmatch 10/05/21 10/05/21 10/05/21 05:08 18:17 23:37 WBC RBC Hgb Hct MCH RDW Plt Count [place] # (Auto) Seg Neutrophils % Seg Neuts % (Manual) Lymphocytes % (Manual) Monocytes % (Manual) Nucleated RBC % Seg Neutrophils # Seg Neutrophils # Man Lymphocytes # (Manual) Monocytes # (Manual) PT INR D-Dimer ABG pH ABG pO2 ABG HCO3 ABG O2 Saturation ABG Base Excess ABG Hemoglobin Oxyhemoglobin Sodium Potassium Chloride Carbon Dioxide BUN Creatinine Glucose POC Glucose 156 H 119 H 130 H Lactic Acid Calcium Phosphorus Magnesium Ferritin Lactate Dehydrogenase Total Creatine Kinase C-Reactive Protein Total Protein Albumin U Epithel Cells (Auto) Crossmatch 10/06/21 10/06/21 10/06/21 04:27 05:27 05:27 WBC 23.4 H RBC 2.84 L Hgb 7.8 L Hct 23.9 L MCH RDW 16.2 H Plt Count 712 H [place] # (Auto) Seg Neutrophils % Seg Neuts % (Manual) Lymphocytes % (Manual) Monocytes % (Manual) Nucleated RBC % Seg Neutrophils # Seg Neutrophils # Man Lymphocytes # (Manual) Monocytes # (Manual) PT INR D-Dimer ABG pH ABG pO2 ABG HCO3 ABG O2 Saturation ABG Base Excess ABG Hemoglobin Oxyhemoglobin Sodium 134 L Potassium Chloride Carbon Dioxide 20 L BUN 28 H Creatinine 1.9 H Glucose 132 H POC Glucose 132 H Lactic Acid Calcium 7.8 L Phosphorus Magnesium Ferritin Lactate Dehydrogenase Total Creatine Kinase 242 H C-Reactive Protein Total Protein Albumin U Epithel Cells (Auto) Crossmatch 10/06/21 10/06/21 10/06/21 16:40 20:50 23:39 WBC RBC Hgb Hct MCH RDW Plt Count [place] # (Auto) Seg Neutrophils % Seg Neuts % (Manual) Lymphocytes % (Manual) Monocytes % (Manual) Nucleated RBC % Seg Neutrophils # Seg Neutrophils # Man Lymphocytes # (Manual) Monocytes # (Manual) PT INR D-Dimer ABG pH ABG pO2 ABG HCO3 ABG O2 Saturation ABG Base Excess ABG Hemoglobin Oxyhemoglobin Sodium Potassium Chloride Carbon Dioxide BUN Creatinine Glucose POC Glucose 133 H 116 H 132 H Lactic Acid Calcium Phosphorus Magnesium Ferritin Lactate Dehydrogenase Total Creatine Kinase C-Reactive Protein Total Protein Albumin U Epithel Cells (Auto) Crossmatch 10/07/21 10/07/21 10/07/21 05:09 05:13 09:43 WBC 22.3 H RBC 2.81 L Hgb 7.8 L Hct 24.0 L MCH RDW 16.5 H Plt Count 733 H [place] # (Auto) Seg Neutrophils % Seg Neuts % (Manual) 85.0 H Lymphocytes % (Manual) 1.0 L Monocytes % (Manual) Nucleated RBC % Seg Neutrophils # Seg Neutrophils # Man 19.0 H Lymphocytes # (Manual) 0.2 L Monocytes # (Manual) 1.6 H PT INR D-Dimer ABG pH ABG pO2 ABG HCO3 ABG O2 Saturation ABG Base Excess ABG Hemoglobin Oxyhemoglobin Sodium 136 L Potassium Chloride Carbon Dioxide 20 L BUN 29 H Creatinine 1.9 H Glucose 140 H POC Glucose 139 H Lactic Acid Calcium 7.6 L Phosphorus Magnesium Ferritin Lactate Dehydrogenase Total Creatine Kinase C-Reactive Protein Total Protein Albumin U [place]ithel Cells (Auto) Crossmatch 10/07/21 10/07/21 10/08/21 11:38 17:44 00:20 WBC RBC Hgb Hct MCH RDW Plt Count [place] # (Auto) Seg Neutrophils % Seg Neuts % (Manual) Lymphocytes % (Manual) Monocytes % (Manual) Nucleated RBC % Seg Neutrophils # Seg Neutrophils # Man Lymphocytes # (Manual) Monocytes # (Manual) PT INR D-Dimer ABG pH ABG pO2 ABG HCO3 ABG O2 Saturation ABG Base Excess ABG Hemoglobin Oxyhemoglobin Sodium Potassium Chloride Carbon Dioxide BUN Creatinine Glucose POC Glucose 126 H 113 H 129 H Lactic Acid Calcium Phosphorus Magnesium Ferritin Lactate Dehydrogenase Total Creatine Kinase C-Reactive Protein Total Protein Albumin U [place]it[place] Cells (Auto) Crossmatch 10/08/21 10/08/21 10/08/21 05:26 05:26 05:29 WBC 21.8 H RBC 2.84 L Hgb 7.8 L Hct 24.1 L MCH 27 L RDW 16.5 H Plt Count 789 H [place] # (Auto) Seg Neutrophils % Seg Neuts % (Manual) Lymphocytes % (Manual) Monocytes % (Manual) Nucleated RBC % Seg Neutrophils # Seg Neutrophils # Man Lymphocytes # (Manual) Monocytes # (Manual) PT INR D-Dimer ABG pH ABG pO2 ABG HCO3 ABG O2 Saturation ABG Base Excess ABG Hemoglobin Oxyhemoglobin Sodium 136 L Potassium Chloride Carbon Dioxide 20 L BUN 31 H Creatinine 1.7 H Glucose 134 H POC Glucose 123 H Lactic Acid Calcium 7.9 L Phosphorus 4.60 H D Magnesium Ferritin Lactate Dehydrogenase Total Creatine Kinase C-Reactive Protein Total Protein Albumin U Epithel Cells (Auto) Crossmatch 10/08/21 10/08/21 10/08/21 11:53 17:07 20:08 WBC RBC Hgb Hct MCH RDW Plt Count [place] # (Auto) Seg Neutrophils % Seg Neuts % (Manual) Lymphocytes % (Manual) Monocytes % (Manual) Nucleated RBC % Seg Neutrophils # Seg Neutrophils # Man Lymphocytes # (Manual) Monocytes # (Manual) PT INR D-Dimer ABG pH 7.308 L ABG pO2 40.2 L ABG HCO3 15.7 L ABG O2 Saturation 68 L ABG Base Excess -9.6 L ABG Hemoglobin 9.7 L Oxyhemoglobin 67.8 L Sodium Potassium Chloride Carbon Dioxide BUN Creatinine Glucose POC Glucose 128 H 139 H Lactic Acid Calcium Phosphorus Magnesium Ferritin Lactate Dehydrogenase Total Creatine Kinase C-Reactive Protein Total Protein Albumin U Epithel Cells (Auto) Crossmatch 10/08/21 10/08/21 10/09/21 21:30 22:55 03:12 WBC RBC Hgb Hct MCH RDW Plt Count [place] # (Auto) Seg Neutrophils % Seg Neuts % (Manual) Lymphocytes % (Manual) Monocytes % (Manual) Nucleated RBC % Seg Neutrophils # Seg Neutrophils # Man Lymphocytes # (Manual) Monocytes # (Manual) PT INR D-Dimer ABG pH ABG pO2 43.8 L ABG HCO3 19.5 L ABG O2 Saturation 70.7 L ABG Base Excess -5.3 L ABG Hemoglobin 8.6 L Oxyhemoglobin 69.4 L Sodium Potassium Chloride Carbon Dioxide BUN Creatinine Glucose POC Glucose 190 H Lactic Acid 2.50 H* Calcium Phosphorus Magnesium Ferritin Lactate Dehydrogenase Total Creatine Kinase C-Reactive Protein Total Protein Albumin U [place]ithel Cells (Auto) Crossmatch 10/09/21 10/09/21 10/09/21 05:31 05:31 05:31 WBC 20.3 H RBC 2.70 L Hgb 7.4 L Hct 23.1 L MCH 27 L RDW 16.6 H Plt Count 786 H [place] # (Auto) Seg Neutrophils % Seg Neuts % (Manual) 88.0 H Lymphocytes % (Manual) 3.0 L Monocytes % (Manual) Nucleated RBC % Seg Neutrophils # Seg Neutrophils # Man 17.9 H Lymphocytes # (Manual) 0.6 L Monocytes # (Manual) 1.2 H PT INR D-Dimer ABG pH ABG pO2 ABG HCO3 ABG O2 Saturation ABG Base Excess ABG Hemoglobin Oxyhemoglobin Sodium 136 L Potassium Chloride Carbon Dioxide 20 L BUN 32 H Creatinine 1.5 H Glucose 214 H POC Glucose Lactic Acid 2.20 H* Calcium 7.5 L Phosphorus Magnesium Ferritin Lactate Dehydrogenase Total Creatine Kinase C-Reactive Protein Total Protein 5.8 L Albumin 2.3 L U Epithel Cells (Auto) Crossmatch 10/09/21 10/09/21 10/09/21 05:31 05:31 05:31 WBC RBC Hgb Hct MCH RDW Plt Count [place] # (Auto) Seg Neutrophils % Seg Neuts % (Manual) Lymphocytes % (Manual) Monocytes % (Manual) Nucleated RBC % Seg Neutrophils # Seg Neutrophils # Man Lymphocytes # (Manual) Monocytes # (Manual) PT INR D-Dimer ABG pH ABG pO2 ABG HCO3 ABG O2 Saturation ABG Base Excess ABG Hemoglobin Oxyhemoglobin Sodium Potassium Chloride Carbon Dioxide BUN Creatinine Glucose POC Glucose Lactic Acid Calcium Phosphorus Magnesium Ferritin 751.9 H Lactate Dehydrogenase 472 H Total Creatine Kinase C-Reactive Protein 15.90 H Total Protein Albumin U [place]ithel Cells (Auto) Crossmatch 10/09/21 10/09/21 10/09/21 08:45 12:08 12:19 WBC RBC Hgb Hct MCH RDW Plt Count [place] # (Auto) Seg Neutrophils % Seg Neuts % (Manual) Lymphocytes % (Manual) Monocytes % (Manual) Nucleated RBC % Seg Neutrophils # Seg Neutrophils # Man Lymphocytes # (Manual) Monocytes # (Manual) PT INR D-Dimer > 05169 H ABG pH ABG pO2 54.3 L ABG HCO3 ABG O2 Saturation 86.6 L ABG Base Excess -2.6 L ABG Hemoglobin 7.2 L Oxyhemoglobin 85.3 L Sodium Potassium Chloride Carbon Dioxide BUN Creatinine Glucose POC Glucose 151 H Lactic Acid Calcium Phosphorus Magnesium Ferritin Lactate Dehydrogenase Total Creatine Kinase C-Reactive Protein Total Protein Albumin U [place]ithel Cells (Auto) Crossmatch 10/09/21 10/10/21 10/10/21 17:43 00:30 04:10 WBC 20.8 H RBC 2.54 L Hgb 7.1 L Hct 21.8 L MCH RDW 16.6 H Plt Count 740 H [place] # (Auto) Seg Neutrophils % Seg Neuts % (Manual) Lymphocytes % (Manual) Monocytes % (Manual) Nucleated RBC % Seg Neutrophils # Seg Neutrophils # Man Lymphocytes # (Manual) Monocytes # (Manual) PT INR D-Dimer ABG pH ABG pO2 ABG HCO3 ABG O2 Saturation ABG Base Excess ABG Hemoglobin Oxyhemoglobin Sodium Potassium Chloride Carbon Dioxide BUN Creatinine Glucose POC Glucose 136 H 132 H Lactic Acid Calcium Phosphorus Magnesium Ferritin Lactate Dehydrogenase Total Creatine Kinase C-Reactive Protein Total Protein Albumin U Epithel Cells (Auto) Crossmatch 10/10/21 10/10/21 10/10/21 04:10 05:41 Unknown WBC RBC Hgb Hct MCH RDW Plt Count [place] # (Auto) Seg Neutrophils % Seg Neuts % (Manual) Lymphocytes % (Manual) Monocytes % (Manual) Nucleated RBC % Seg Neutrophils # Seg Neutrophils # Man Lymphocytes # (Manual) Monocytes # (Manual) PT INR D-Dimer ABG pH 7.505 H ABG pO2 246.1 H ABG HCO3 ABG O2 Saturation 99.4 H ABG Base Excess ABG Hemoglobin 6.0 L Oxyhemoglobin Sodium 130 L Potassium Chloride 97.9 L Carbon Dioxide 19 L BUN 37 H Creatinine 1.4 H Glucose 181 H POC Glucose 150 H Lactic Acid Calcium 7.8 L Phosphorus Magnesium Ferritin Lactate Dehydrogenase Total Creatine Kinase C-Reactive Protein Total Protein Albumin U Epithel Cells (Auto) Crossmatch Chest x-ray: image reviewed Allied health notes reviewed: nursing
--- NOTE | 2021-10-10 09:26 | Progress Note ---
Assessment and Plan Postop day #9 status post laparoscopic converted to open left hemicolectomy with appendectomy for perforated appendicitis with fistulization to sigmoid colon. Afebrile and stable at this time however requiring vent support after acute re spiratory failure. Pt awake between sedation for vent and agitation. I spoke with Sudha Champagne and Massiel (radiology) who believe the free air is extraluminal however likely contained since there is no large free fluid associated with it and it is well circumscribed. Microperforation a possibility. Pt remains stable plan to take to IR Monday for image guided drain placement into the air pocket. Will contine to follow closely. Subjective Date of service: 10/10/21 Narrative: Pt ransferred to icu and intubated for respiratory failure. She is sedated. CTA neg for Pe. CT abdo with extraluminal area loculated near anastomosis. Dr. Champagne with note advising that perc drainage will be attempted Monday. Objective Vital Signs - 12hr 10/09/21 10/09/21 10/09/21 21:30 22:00 22:30 Temperature Pulse Rate 95 H 92 H 92 H Pulse Rate [ Anterior Bilateral Throughout] Pulse Rate [ From Monitor] Respiratory 22 26 H 26 H Rate Respiratory Rate [Anterior Bilateral Throughout] Blood Pressure 113/76 116/71 103/70 O2 Sat by Pulse 100 100 100 Oximetry 10/09/21 10/09/21 10/09/21 22:33 23:00 23:12 Temperature Pulse Rate 89 91 H 89 Pulse Rate [ Anterior Bilateral Throughout] Pulse Rate [ From Monitor] Respiratory 26 H 18 Rate Respiratory Rate [Anterior Bilateral Throughout] Blood Pressure 103/70 107/71 107/71 O2 Sat by Pulse 100 100 100 Oximetry 10/09/21 10/10/21 10/10/21 23:30 00:00 00:30 Temperature 97.8 F Pulse Rate 91 H 89 95 H Pulse Rate [ Anterior Bilateral Throughout] Pulse Rate [ 95 H From Monitor] Respiratory 20 26 H 23 Rate Respiratory Rate [Anterior Bilateral Throughout] Blood Pressure 101/67 104/65 114/73 O2 Sat by Pulse 100 100 100 Oximetry 10/10/21 10/10/21 10/10/21 01:00 01:30 02:00 Temperature Pulse Rate 87 84 86 Pulse Rate [ Anterior Bilateral Throughout] Pulse Rate [ From Monitor] Respiratory 26 H 27 H 26 H Rate Respiratory Rate [Anterior Bilateral Throughout] Blood Pressure 102/67 102/63 102/59 O2 Sat by Pulse 100 100 100 Oximetry 10/10/21 10/10/21 10/10/21 02:30 03:00 03:30 Temperature Pulse Rate 82 81 78 Pulse Rate [ Anterior Bilateral Throughout] Pulse Rate [ From Monitor] Respiratory 16 25 H 26 H Rate Respiratory Rate [Anterior Bilateral Throughout] Blood Pressure 107/66 108/59 104/58 O2 Sat by Pulse 100 100 100 Oximetry 10/10/21 10/10/21 10/10/21 04:00 04:30 05:00 Temperature 97.9 F Pulse Rate 77 80 84 Pulse Rate [ Anterior Bilateral Throughout] Pulse Rate [ 95 H From Monitor] Respiratory 26 H 19 16 Rate Respiratory Rate [Anterior Bilateral Throughout] Blood Pressure 107/65 104/62 105/64 O2 Sat by Pulse 100 100 100 Oximetry 10/10/21 10/10/21 10/10/21 05:30 06:00 07:48 Temperature 98.6 F Pulse Rate 76 82 Pulse Rate [ Anterior Bilateral Throughout] Pulse Rate [ From Monitor] Respiratory 26 H 26 H Rate Respiratory Rate [Anterior Bilateral Throughout] Blood Pressure 105/60 94/54 O2 Sat by Pulse 100 100 Oximetry 10/10/21 10/10/21 08:00 08:05 Temperature Pulse Rate 74 Pulse Rate [ 74 Anterior Bilateral Throughout] Pulse Rate [ From Monitor] Respiratory 0 L Rate Respiratory 22 Rate [Anterior Bilateral Throughout] Blood Pressure 98/50 O2 Sat by Pulse 100 Oximetry - Labs 10/10/21 04:10 10/10/21 04:10 Diabetes panel 10/10/21 Range/Units 04:10 Sodium 130 L (137-145) mmol/L Potassium 4.4 (3.6-5.0) mmol/L Chloride 97.9 L (98-107) mmol/L Carbon Dioxide 19 L (22-30) mmol/L BUN 37 H (7-17) mg/dL Creatinine 1.4 H (0.6-1.2) mg/dL Glucose 181 H (65-100) mg/dL Calcium 7.8 L (8.4-10.2) mg/dL Calcium panel 10/10/21 Range/Units 04:10 Calcium 7.8 L (8.4-10.2) mg/dL Phosphorus 2.80 D (2.5-4.5) mg/dL Pituitary panel 10/10/21 Range/Units 04:10 Sodium 130 L (137-145) mmol/L Potassium 4.4 (3.6-5.0) mmol/L Chloride 97.9 L (98-107) mmol/L Carbon Dioxide 19 L (22-30) mmol/L BUN 37 H (7-17) mg/dL Creatinine 1.4 H (0.6-1.2) mg/dL Glucose 181 H (65-100) mg/dL Calcium 7.8 L (8.4-10.2) mg/dL Adrenal panel 10/10/21 Range/Units 04:10 Sodium 130 L (137-145) mmol/L Potassium 4.4 (3.6-5.0) mmol/L Chloride 97.9 L (98-107) mmol/L Carbon Dioxide 19 L (22-30) mmol/L BUN 37 H (7-17) mg/dL Creatinine 1.4 H (0.6-1.2) mg/dL Glucose 181 H (65-100) mg/dL Calcium 7.8 L (8.4-10.2) mg/dL
[2021-10-10] MEDS: SCOPOLAMINE TRANSDERMAL PATCH 72 HR TD SCH (09:53)
[2021-10-10] MEDS: CEFEPIME/NS 2 GM/100 ML 2 GM/100 ML BAG IV SCH ×2 (09:53→21:41)
[2021-10-10] MEDS: SENNOSIDES/DOCUSATE SODIUM 8.6/50 MG TAB FEEDTUBE SCH (09:53)
[2021-10-10] MEDS: FAMOTIDINE 20 MG/2 ML INJ IV SCH ×2 (09:53→21:41)
--- NOTE | 2021-10-10 10:37 | Progress Note ---
<CHAD EDEN - Last Filed: 10/10/21 16:05> Assessment and Plan Assessment and plan: This is a 31-year-old female with past medical history of obesity and nephrolithiasis initially admitted to the floor for acute diverticulititis which was complicated by sepsis and acute kidney injury. 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 On 10/08/21 patient developed acute hypoxic respiratory failure requiring intubation and ventilatory support. ICU Course to Date: 10/09: Intubated and sedated, RASS -1 to -2. Recent CXR noted with worsen bilateral opacities with persistent leukocytosis, elevated lactic, and now on 2 pressors. Patient remains afebrile, and already on IV Abx per ID. Will swab patient for COVID. Given recent surgery orders placed for CTA chest, CT Abd/pl gavi. And also BLE dopplers due to elevated D-Dimer. Renal function is improving, additional IVF to flush out kidney post contrast, Nephrology is also following. Continue TPN and NGT to LIS. 10/10: COVID PCR negative. CTA chest and Abd/plevis noted. No evidence of PE. Patient received X1 dose of 20mg IV lasix per Nephro for pulmonary edema, this am CXR with some improvement, renal function is also improving. Wean vent setting as tolerated per CCM. Plan for possible CT guided drainage placement in IR tomorrow. Continue TPN and NGT to LIS. Assessment and Plan #Acute Hypoxic Respiratory Failure #Bilateral Pneumonia Vs Pulmonary Edema -Code met and intubated on 10/08 -Vent setting:PRVC-60%,10,22,425 -AM ABG noted -COVID PCR negative -10/09 CTA chest with no evidence of PE. 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 post appendectomy #VRE infection #Open left hemicolectomy and partial omentectomy #Peritonitis #Leukocytosis #Diverticulitis with abscessresolved -CT abd/pelvis showed diverticulitis with abscess -General surgery following, assistance appreciated -s/p diagnositic laparatomy and drain placement 09/26/2021 Returned to the OR on 09/30/2021 for left hemicolectomy, appendectomy, and partial omentectomy -Wound culture +VRE -Remains afebrile, off pressors, lactic Acid less than 2 this -Repeat Blood culture with NGTD -Continue IV Abx per ID recommendations -Continue blood pressure monitor per protocol -Pressors on standby, maintain MAP goal above 65 -3/ CTabd/pelvis with new collection of air within the left mid Abdomen -Plan for possible CT guided drainage placement in IR tomorrow -Continue TPN/PPN per general surgery -NGT to LIS -Trend CBC and lactic #Acute Kidney Injury 2/2 Vasomotor Nephropathy vs contrast induced #Hyponatremia #Hypokalemia #Hypophosphatemia -Nephrology consulted, assistance appreciated -Renal function continue to improve -S/p X1 dose of IV lasix per Nephro -Strict intake and output -Avoid nephrotoxic medications; Renally dose medications -Monitor and replace electrolytes as needed #Acute blood loss anemia #Gross Hematuria-resolved -2/2 to surgical procedures-- c/f ureteral injury -s/p 3 units of pRBCs since admission -Hematuria resolved, H&H stable -Urology consulted, appreciated recommendation -cystoscopy recommended by Urology -Continue to monitor for s/s of any active bleeding, trend CBC -transfuse if hemoglobin less than 7 or patient becomes symptomatic #Moderate protein caloric malnutrition -Albumin 1.6 -Continue TPN/PPN per general surgery -Consulting nutrition; appreciate recs #Elevated D-Dimer -BLE doppler pending -Continue AC- Heparin subQ #Hyperglycemia -most likely due to TPN/PPN -Continue SSI Q6hrs -Avoid hypoglycemia #GI/DVT Prophylaxis -Continue PPI- Pepcid -Continue AC- Heparin subQ The high probability of a clinically significant, sudden or life threatening deterioration of the [multiple] system(s) required my full and direct attention, intervention and personal management. The aggregate critical care time was [60] minutes. This time is in addition to time spent performing reported procedures but includes the following: [x] Data Review and interpretation [x] Patient assessment and monitoring of vital signs [x] Documentation [x] Medication orders and management Disposition Plan: ICU Total Time Spent with Patient (Minutes): 60 History Interval history: Patient seen and examined at the bedside. Remains intubated and Sedated, on propofol and fentanyl, RASS -1 and following simple commands. Off pressors this am. CARMEN overnight Hospitalist Physical - Constitutional Vitals: Temp Pulse Resp BP Pulse Ox 98.6 F 80 19 99/54 100 10/10/21 08:00 10/10/21 10:30 10/10/21 10:30 10/10/21 10:30 10/10/21 10:30 General appearance: Present: no acute distress, well-nourished, obese, other (Intubated and Sedated) - EENT Eyes: Present: PERRL, EOM intact ENT: hearing intact - Neck Neck: Present: normal ROM - Respiratory Respiratory effort: normal Respiratory: bilateral: rhonchi - Cardiovascular Rhythm: regular Heart Sounds: Present: S1 & S2 - Extremities Extremities: no ischemia, pulses intact, pulses symmetrical Extremity abnormal: edema - Peripheral Assessment Bilateral Lower Extremity Edema Type: Pitting Edema Degree: 2+ Capillary Refill: < 3 seconds Skin Temperature: Warm Generalized Edema Type: Non-pitting Edema Degree: 2+ Capillary Refill: < 3 seconds Skin Temperature: Warm Peripheral Pulses: within normal limits - Abdominal General gastrointestinal: soft, tender, hypoactive bowel sounds, other (Mid Abdo li insicion- Dressing CDI. X1 YURIDIA drain noted) - Integumentary Integumentary: Present: warm, dry - Psychiatric Psychiatric: cooperative, other (Intubated and Sedated) - Neurologic Neurologic: moves all extremities, other (RASS -1, following commands) - Allied Health Allied health notes reviewed: nursing Results - Labs CBC & Chem 7: 10/10/21 04:10 10/10/21 04:10 Labs: Laboratory Last Values WBC 20.8 K/mm3 (4.5-11.0) H 10/10/21 04:10 RBC 2.54 M/mm3 (3.65-5.03) L 10/10/21 04:10 Hgb 7.1 gm/dl (10.1-14.3) L 10/10/21 04:10 Hct 21.8 % (30.3-42.9) L 10/10/21 04:10 MCV 86 fl (79-97) 10/10/21 04:10 MCH 28 pg (28-32) 10/10/21 04:10 MCHC 33 % (30-34) 10/10/21 04:10 RDW 16.6 % (13.2-15.2) H 10/10/21 04:10 Plt Count 740 K/mm3 (140-440) H 10/10/21 04:10 Kerr % (Auto) 5.9 % (0.0-7.3) 09/28/21 04:55 Eos % (Auto) 0.4 % (0.0-4.3) 09/28/21 04:55 Kerr # (Auto) 0.9 K/mm3 (0.0-0.8) H 09/28/21 04:55 Eos # (Auto) 0.1 K/mm3 (0.0-0.4) 09/28/21 04:55 Baso # (Auto) 0.0 K/mm3 (0.0-0.1) 09/28/21 04:55 Add Manual Diff Complete 10/09/21 05:31 Total Counted 100 10/09/21 05:31 Seg Neutrophils % Biomedical Engineering Technologist 10/03/21 04:55 Seg Neuts % (Manual) 88.0 % (40.0-70.0) H 10/09/21 05:31 Band Neutrophils % 0 % 10/09/21 05:31 Lymphocytes % (Manual) 3.0 % (13.4-35.0) L 10/09/21 05:31 Reactive Lymphs % (Man) 1.0 % 10/09/21 05:31 Monocytes % (Manual) 6.0 % (0.0-7.3) 10/09/21 05:31 Eosinophils % (Manual) 2.0 % (0.0-4.3) 10/09/21 05:31 Basophils % (Manual) 0 % (0.0-1.8) 10/09/21 05:31 Metamyelocytes % 0 % 10/09/21 05:31 Myelocytes % 0 % 10/09/21 05:31 Promyelocytes % 0 % 10/09/21 05:31 Blast Cells % 0 % 10/09/21 05:31 Nucleated RBC % Not Reportable 10/09/21 05:31 Seg Neutrophils # 14.0 K/mm3 (1.8-7.7) H 09/28/21 04:55 Seg Neutrophils # Man 17.9 K/mm3 (1.8-7.7) H 10/09/21 05:31 Band Neutrophils # 0.0 K/mm3 10/09/21 05:31 Lymphocytes # (Manual) 0.6 K/mm3 (1.2-5.4) L 10/09/21 05:31 Abs React Lymphs (Man) 0.2 K/mm3 10/09/21 05:31 Monocytes # (Manual) 1.2 K/mm3 (0.0-0.8) H 10/09/21 05:31 Eosinophils # (Manual) 0.4 K/mm3 (0.0-0.4) 10/09/21 05:31 Basophils # (Manual) 0.0 K/mm3 (0.0-0.1) 10/09/21 05:31 Metamyelocytes # 0.0 K/mm3 10/09/21 05:31 Myelocytes # 0.0 K/mm3 10/09/21 05:31 Promyelocytes # 0.0 K/mm3 10/09/21 05:31 Blast Cells # 0.0 K/mm3 10/09/21 05:31 Pathologist Review 09/24/21 14:58 WBC Morphology Not Reportable 10/09/21 05:31 Hypersegmented Neuts Not Reportable 10/09/21 05:31 Hyposegmented Neuts Not Reportable 10/09/21 05:31 Hypogranular Neuts Not Reportable 10/09/21 05:31 Smudge Cells Not Reportable 10/09/21 05:31 Toxic Granulation Not Reportable 10/09/21 05:31 Toxic Vacuolation Not Reportable 10/09/21 05:31 Dohle Bodies Not Reportable 10/09/21 05:31 Pelger-Huet Anomaly Not Reportable 10/09/21 05:31 Marlene Rods Not Reportable 10/09/21 05:31 Platelet Estimate Consistent w auto 10/09/21 05:31 Clumped Platelets Not Reportable 10/09/21 05:31 Plt Clumps, EDTA Not Reportable 10/09/21 05:31 Large Platelets Not Reportable 10/09/21 05:31 Giant Platelets Not Reportable 10/09/21 05:31 Platelet Satelliting Not Reportable 10/09/21 05:31 Plt Morphology Comment Not Reportable 10/09/21 05:31 RBC Morphology Not Reportable 10/09/21 05:31 Dimorphic RBCs Not Reportable 10/09/21 05:31 Polychromasia Not Reportable 10/09/21 05:31 Hypochromasia Not Reportable 10/09/21 05:31 Poikilocytosis Not Reportable 10/09/21 05:31 Anisocytosis 1+ 10/09/21 05:31 Microcytosis Not Reportable 10/09/21 05:31 Macrocytosis Not Reportable 10/09/21 05:31 Spherocytes Not Reportable 10/09/21 05:31 Pappenheimer Bodies Not Reportable 10/09/21 05:31 Sickle Cells Not Reportable 10/09/21 05:31 Target Cells Not Reportable 10/09/21 05:31 Tear Drop Cells Not Reportable 10/09/21 05:31 Ovalocytes Not Reportable 10/09/21 05:31 Helmet Cells Not Reportable 10/09/21 05:31 Navas-Lovejoy Bodies Not Reportable 10/09/21 05:31 [place] Rings Not Reportable 10/09/21 05:31 Basom Cells Not Reportable 10/09/21 05:31 Bite Cells Not Reportable 10/09/21 05:31 Crenated Cell Not Reportable 10/09/21 05:31 Elliptocytes Not Reportable 10/09/21 05:31 Acanthocytes (Spur) Not Reportable 10/09/21 05:31 Rouleaux Not Reportable 10/09/21 05:31 Hemoglobin C Crystals Not Reportable 10/09/21 05:31 Schistocytes Not Reportable 10/09/21 05:31 Malaria parasites Not Reportable 10/09/21 05:31 Flaco Bodies Not Reportable 10/09/21 05:31 Hem Pathologist Commnt No 10/09/21 05:31 PT 17.8 Sec. (12.2-14.9) H 10/05/21 04:40 INR 1.31 (0.87-1.13) H 10/05/21 04:40 D-Dimer > 75398 ng/mlDDU (0-234) H 10/09/21 08:45 ABG pH 7.505 pH Units (7.350-7.450) H 10/10/21 Unknown ABG pCO2 27.6 mm Hg 10/10/21 Unknown ABG pO2 246.1 mm Hg (80.0-90.0) H 10/10/21 Unknown ABG HCO3 21.3 mmol/L (20.0-26.0) 10/10/21 Unknown ABG O2 Saturation 99.4 % (95.0-99.0) H 10/10/21 Unknown ABG O2 Content 8.9 (0.0-44) 10/10/21 Unknown ABG Base Excess -1.7 mmol/L (-2.0-3.0) 10/10/21 Unknown ABG Hemoglobin 6.0 gm/dl (12.0-16.0) L 10/10/21 Unknown ABG Carboxyhemoglobin 1.1 % (0.0-5.0) 10/10/21 Unknown ABG Methemoglobin 0.5 % (0.0-1.5) 10/10/21 Unknown Oxyhemoglobin 97.9 % (95.0-99.0) 10/10/21 Unknown FiO2 60 % 10/10/21 Unknown Sodium 130 mmol/L (137-145) L 10/10/21 04:10 Potassium 4.4 mmol/L (3.6-5.0) 10/10/21 04:10 Chloride 97.9 mmol/L (98-107) L 10/10/21 04:10 Carbon Dioxide 19 mmol/L (22-30) L 10/10/21 04:10 Anion Gap 18 mmol/L 10/10/21 04:10 BUN 37 mg/dL (7-17) H 10/10/21 04:10 Creatinine 1.4 mg/dL (0.6-1.2) H 10/10/21 04:10 Estimated GFR 53 ml/min 10/10/21 04:10 BUN/Creatinine Ratio 26 % 10/10/21 04:10 Glucose 181 mg/dL (65-100) H 10/10/21 04:10 POC Glucose 150 mg/dL (70-105) H 10/10/21 05:41 Lactic Acid 1.80 mmol/L (0.7-2.0) 10/10/21 04:10 Calcium 7.8 mg/dL (8.4-10.2) L 10/10/21 04:10 Phosphorus 2.80 mg/dL (2.5-4.5) D 10/10/21 04:10 Magnesium 1.70 mg/dL (1.7-2.3) 10/10/21 04:10 Ferritin 751.9 ng/mL (10.0-200.0) H 10/09/21 05:31 Total Bilirubin 0.30 mg/dL (0.1-1.2) 10/09/21 05:31 AST 26 units/L (5-40) 10/09/21 05:31 ALT 11 units/L (7-56) 10/09/21 05:31 Alkaline Phosphatase 63 units/L (35-129) 10/09/21 05:31 Lactate Dehydrogenase 472 units/L (91-180) H 10/09/21 05:31 Total Creatine Kinase 242 units/L (30-135) H 10/06/21 05:27 C-Reactive Protein 15.90 mg/dL (0.00-1.30) H 10/09/21 05:31 Total Protein 5.8 g/dL (6.3-8.2) L 10/09/21 05:31 Albumin 2.3 g/dL (3.9-5) L 10/09/21 05:31 Albumin/Globulin Ratio 0.7 % 10/09/21 05:31 Procalcitonin 12.98 ng/mL (<0.15) 10/09/21 05:31 Urine Color Yellow (Yellow) 09/24/21 14:49 Urine Turbidity Slightly-cloudy (Clear) 09/24/21 14:49 Urine pH 6.0 (5.0-7.0) 09/24/21 14:49 Ur Specific [place] 1.017 (1.003-1.030) 09/24/21 14:49 Urine Protein 30 mg/dl mg/dL (Negative) 09/24/21 14:49 Urine Glucose (UA) Neg mg/dL (Negative) 09/24/21 14:49 Urine Ketones Neg mg/dL (Negative) 09/24/21 14:49 Urine Blood Neg (Negative) 09/24/21 14:49 Urine Nitrite Neg (Negative) 09/24/21 14:49 Ur Reducing Substances Not Reportable 09/24/21 14:49 Urine Bilirubin Neg (Negative) 09/24/21 14:49 Urine Ictotest Not Reportable 09/24/21 14:49 Urine Urobilinogen < 2.0 mg/dL (<2.0) 09/24/21 14:49 Ur Leukocyte Esterase Neg (Negative) 09/24/21 14:49 Urine WBC (Auto) 4.0 /HPF (0.0-6.0) 09/24/21 14:49 Urine RBC (Auto) 2.0 /HPF (0.0-6.0) 09/24/21 14:49 U Epithel Cells (Auto) 18.0 /HPF (0-13.0) H 09/24/21 14:49 Urine Mucus Few /HPF 09/24/21 14:49 Urine HCG, Qual Negative (Negative) 09/24/21 14:49 Coronavirus (PCR) Negative (Negative) 10/09/21 10:15 Blood Type A POSITIVE 10/08/21 22:55 Antibody Screen Negative 10/08/21 22:55 Crossmatch See Detail 10/04/21 13:30 Microbiology: Microbiology 10/08/21 22:55 Peripheral/Venous Blood Culture - Preliminary NO GROWTH AFTER 24 HOURS 10/08/21 23:30 Peripheral/Venous Blood Culture - Preliminary NO GROWTH AFTER 24 HOURS Doss/IV: Voiding Method Indwelling Catheter Active Medications - Current Medications Current Medications: Generic Name Dose Route Start Last Admin Trade Name Freq PRN Reason Stop Dose Admin Acetaminophen 650 mg 10/08/21 21:38 Acetaminophen 325 Mg Tab PO Q6H PRN Pain, Mild (1-3) Albuterol 2.5 mg 09/24/21 18:07 Albuterol 2.5 Mg/3 Ml Nebu IH Q4HRT PRN Shortness Of Breath Dextrose 0 ml 10/03/21 12:37 Dextrose 10% *Hypoglycemia IV PRN PRN Hypoglycemia Diphenhydramine HCl 25 mg 10/04/21 15:14 10/07/21 00:34 Diphenhydramine 50 Mg/Ml Vial IV 25 mg Q6H PRN Administration Itching Famotidine 20 mg 10/08/21 22:00 10/10/21 09:53 Famotidine 20 Mg/2 Ml Inj IV 20 mg BID JAZ Administration Fentanyl 50 mcg 10/08/21 22:10 Fentanyl 100 Mcg/2 Ml Inj IV Q10MIN PRN ANALGESIA Heparin Sodium (Porcine) 5,000 unit 10/07/21 06:00 10/10/21 05:59 Heparin 5,000 Unit/1 Ml Vial SUB-Q 5,000 unit Q8HR JAZ Administration Hydromorphone HCl 1 mg 10/03/21 14:00 10/08/21 17:31 Hydromorphone 1 Mg/1 Ml Inj IV 1 mg Q3H PRN Administration Pain , Severe (7-10) Hydromorphone HCl 0.25 mg 10/08/21 21:38 Hydromorphone 1 Mg/1 Ml Inj IV Q4H PRN Pain, Moderate (4-6) Hydrophilic Ointment 1 applic 10/08/21 21:00 Lip Therapy Vaseline TP Q2HR PRN Dry Lips Metronidazole 500 mg in 100 mls @ 100 mls/hr 10/02/21 16:00 10/10/21 08:18 Flagyl 500 Mg/100 Ml IV 100 mls/hr Q8H [facility] Administration Protocol Linezolid 600 mg in 300 mls @ 300 mls/hr 10/08/21 15:00 10/10/21 02:53 Zyvox 600mg/300ml IV 300 mls/hr Q12H JAZ Administration Protocol Propofol 1,000 mg in 100 mls @ 2.694 mls/hr 10/08/21 21:00 10/10/21 04:42 Diprivan 10 Mg/Ml IV 20 mcg/kg/min TITR JAZ 10.776 mls/hr Administration Protocol 5 MCG/KG/MIN Cefepime HCl 2 gm in 100 mls @ 200 mls/hr 10/08/21 22:00 10/10/21 09:53 Cefepime/Ns 2 Gm/100 Ml IV 200 mls/hr Q12H JAZ Administration Protocol Fentanyl Citrate 2,000 mcg in 100 mls @ 4.49 mls/hr 10/08/21 23:00 10/10/21 07:10 Fentanyl Drip Premix IV 4 mcg/kg/hr TITR JAZ 17.96 mls/hr Administration Protocol 1 MCG/KG/HR Vasopressin 20 unit/ Sodium 101 mls @ 9.09 mls/hr 10/08/21 23:00 10/09/21 14:30 Chloride IV 0 units/min TITR JAZ 0 mls/hr Titration Protocol 0.03 UNITS/MIN NORepinephrine/NS 8 MG-250 ML 8 mg in 250 mls @ 3.75 mls/hr 10/08/21 23:45 Norepinephrine/Ns 8 Mg-250 Ml (Double Conc) IV TITRATE JAZ Protocol 2 MCG/MIN Amino Acids/Electrolytes/Dextrose 2,000 mls @ 83.3 mls/hr 10/09/21 20:00 10/09/21 21:01 Tpn Adult IV 10/10/21 19:59 83.3 mls/hr DAILY@1999 [facility] Administration Protocol Insulin Human Regular 0 units 10/10/21 00:00 10/10/21 05:46 Insulin Regular, Human 100 Units/1 Ml SUB-Q 2 units Q6HR [facility] Administration Protocol Labetalol HCl 10 mg 10/01/21 08:31 10/08/21 13:22 Labetalol 20 Mg/4 Ml Inj IV 10 mg Q6H PRN Administration Hypertension Multi-Ingred Cream/Lotion/Oil/Oint 1 applic 10/08/21 21:00 Mineral Oil/Petrolatum, White Ophth Oint 3.5 Gm OU Q4HR PRN Dry Eye(s) Naloxone HCl 0.1 mg 10/03/21 14:00 Naloxone 0.4 Mg/1 Ml Inj IV Q2MIN PRN Res Rate </= 8 or 02 SAT < 92% Ondansetron HCl 4 mg 09/24/21 18:07 10/05/21 11:39 Ondansetron 4 Mg/2 Ml Inj IV 4 mg Q8H PRN Administration Nausea And Vomiting Phenol 1 spray 10/02/21 13:00 10/03/21 10:23 Phenol 1.4% 177 Ml Bottle MM 1 spray PRN PRN Administration Sore Throat Scopolamine 1 each 10/04/21 10:00 10/10/21 09:53 Scopolamine Transdermal Patch 72 Hr TD 1 each Q3D JAZ Administration Senna/Docusate Sodium 1 tab 10/08/21 22:00 10/10/21 09:53 Sennosides/Docusate Sodium 8.6/50 Mg Tab FEEDTUBE Not Given BID [facility] Sodium Chloride 10 ml 09/24/21 22:00 10/10/21 09:53 Sodium Chloride 0.9% 10 Ml Flush Syringe IV 10 ml BID JAZ Administration Sodium Chloride 10 ml 09/24/21 18:07 09/25/21 08:34 Sodium Chloride 0.9% 10 Ml Flush Syringe IV 10 ml PRN PRN Administration LINE FLUSH Nutrition/Malnutrition Assess - Dietary Evaluation Nutrition/Malnutrition Findings: Nutrition Notes Start: 09/25/21 15:31 Freq: Status: Active Protocol: Document 10/09/21 11:19 BRYAN (Rec: 10/09/21 11:45 [facility] [id number]) Nutrition Notes Initial or Follow up Reassessment Current Diagnosis Acute Kidney Injury,Sepsis Other Pertinent Diagnosis Perforated appendicitis s/p appendectomy with (R) hemicolectomy Current Diet PPN @ 100mL/hr Labs/Tests Na 136 BG 214 BUN 32 Cr 1.5 CO2 - 20 Ca 7.5 (adjusted 8.86) Pertinent Medications LR at 125ml/hr, NS at 75ml/hr, Levophed gtt, Propofol at 25ml/hr (provides 660 kcal), Scopolamine, Senna, Vasopressin gtt Height 5 ft 7 in Weight 104.4 kg [place] Body Weight (kg) 61.36 BMI 36.0 Weight change and time frame Wt change noted - fluid?? Weight Status Obese Subjective/Other Information Pt transferred to ICU sec to resp distress; pt currently intubated and with central iv access. Percent of energy/protein needs met: 59% energy 69% pro (meeting 99% of energy needs if propofol included) Burn Absent Trauma Absent #1 Nutrition Diagnosis Altered GI function Diagnosis Progress(for reassessment Continues documentation) Is patient on ventilator? Yes Is Patient Ambulatory and/or Out of Bed No REE-([facility]-confined to bed) 2145.768 Kcal/Kg value to use for calculation 16 Approximate Energy Requirements Using 1670 kcal/Kg Calculation Used for Recommendations Kcal/kg Additional Notes Pro needs 2g/kg IBW: 123g/day Fluid needs 1ml/kcal Nutrition Intervention Nutrition Support: Change PN to CPN and decrease rate to 83.33ml/hr: MVI, 4.8% amino acids, 10% dextrose, 50mEq K, 2mEq Mg. Osmolality: 1062. Kcal 1,026 Protein (gm) 95 Carbohydrates (gm) 190 Fat (gm) 0 Fluid (mL) 2,000 Fiber (gm) 0 Goal #1 PN to meet at least 75% energy and pro needs Follow-Up By: 10/10/21 Additional Comments Labs in am: BMP, Mg, Phos Check pressors, vent status and propofol <PAULIE HAY - Last Filed: 10/11/21 07:58> Assessment and Plan Assessment and plan: I saw and evaluated the patient. I agree with the findings and the plan of care as documented in the Nurse Practitioner's~note, with the following corrections and additions. Hospitalist Physical - Constitutional Vitals: Temp Pulse Resp BP Pulse Ox 97.8 F 82 22 121/65 100 10/11/21 00:00 10/11/21 07:22 10/11/21 06:00 10/11/21 07:22 10/11/21 07:22 Results - Labs CBC & Chem 7: 10/11/21 03:30 10/11/21 03:30 Labs: Laboratory Last Values WBC 23.2 K/mm3 (4.5-11.0) H 10/11/21 03:30 RBC 2.39 M/mm3 (3.65-5.03) L 10/11/21 03:30 Hgb 6.7 gm/dl (10.1-14.3) L 10/11/21 03:30 Hct 20.3 % (30.3-42.9) L 10/11/21 03:30 MCV 85 fl (79-97) 10/11/21 03:30 MCH 28 pg (28-32) 10/11/21 03:30 MCHC 33 % (30-34) 10/11/21 03:30 RDW 16.7 % (13.2-15.2) H 10/11/21 03:30 Plt Count 701 K/mm3 (140-440) H 10/11/21 03:30 Kerr % (Auto) 5.9 % (0.0-7.3) 09/28/21 04:55 Eos % (Auto) 0.4 % (0.0-4.3) 09/28/21 04:55 Kerr # (Auto) 0.9 K/mm3 (0.0-0.8) H 09/28/21 04:55 Eos # (Auto) 0.1 K/mm3 (0.0-0.4) 09/28/21 04:55 Baso # (Auto) 0.0 K/mm3 (0.0-0.1) 09/28/21 04:55 Add Manual Diff Complete 10/09/21 05:31 Total Counted 100 10/09/21 05:31 Seg Neutrophils % Biomedical Engineering Technologist 10/03/21 04:55 Seg Neuts % (Manual) 88.0 % (40.0-70.0) H 10/09/21 05:31 Band Neutrophils % 0 % 10/09/21 05:31 Lymphocytes % (Manual) 3.0 % (13.4-35.0) L 10/09/21 05:31 Reactive Lymphs % (Man) 1.0 % 10/09/21 05:31 Monocytes % (Manual) 6.0 % (0.0-7.3) 10/09/21 05:31 Eosinophils % (Manual) 2.0 % (0.0-4.3) 10/09/21 05:31 Basophils % (Manual) 0 % (0.0-1.8) 10/09/21 05:31 Metamyelocytes % 0 % 10/09/21 05:31 Myelocytes % 0 % 10/09/21 05:31 Promyelocytes % 0 % 10/09/21 05:31 Blast Cells % 0 % 10/09/21 05:31 Nucleated RBC % Not Reportable 10/09/21 05:31 Seg Neutrophils # 14.0 K/mm3 (1.8-7.7) H 09/28/21 04:55 Seg Neutrophils # Man 17.9 K/mm3 (1.8-7.7) H 10/09/21 05:31 Band Neutrophils # 0.0 K/mm3 10/09/21 05:31 Lymphocytes # (Manual) 0.6 K/mm3 (1.2-5.4) L 10/09/21 05:31 Abs React Lymphs (Man) 0.2 K/mm3 10/09/21 05:31 Monocytes # (Manual) 1.2 K/mm3 (0.0-0.8) H 10/09/21 05:31 Eosinophils # (Manual) 0.4 K/mm3 (0.0-0.4) 10/09/21 05:31 Basophils # (Manual) 0.0 K/mm3 (0.0-0.1) 10/09/21 05:31 Metamyelocytes # 0.0 K/mm3 10/09/21 05:31 Myelocytes # 0.0 K/mm3 10/09/21 05:31 Promyelocytes # 0.0 K/mm3 10/09/21 05:31 Blast Cells # 0.0 K/mm3 10/09/21 05:31 Pathologist Review 09/24/21 14:58 WBC Morphology Not Reportable 10/09/21 05:31 Hypersegmented Neuts Not Reportable 10/09/21 05:31 Hyposegmented Neuts Not Reportable 10/09/21 05:31 Hypogranular Neuts Not Reportable 10/09/21 05:31 Smudge Cells Not Reportable 10/09/21 05:31 Toxic Granulation Not Reportable 10/09/21 05:31 Toxic Vacuolation Not Reportable 10/09/21 05:31 Dohle Bodies Not Reportable 10/09/21 05:31 Pelger-Huet Anomaly Not Reportable 10/09/21 05:31 Marlene Rods Not Reportable 10/09/21 05:31 Platelet Estimate Consistent w auto 10/09/21 05:31 Clumped Platelets Not Reportable 10/09/21 05:31 Plt Clumps, EDTA Not Reportable 10/09/21 05:31 Large Platelets Not Reportable 10/09/21 05:31 Giant Platelets Not Reportable 10/09/21 05:31 Platelet Satelliting Not Reportable 10/09/21 05:31 Plt Morphology Comment Not Reportable 10/09/21 05:31 RBC Morphology Not Reportable 10/09/21 05:31 Dimorphic RBCs Not Reportable 10/09/21 05:31 Polychromasia Not Reportable 10/09/21 05:31 Hypochromasia Not Reportable 10/09/21 05:31 Poikilocytosis Not Reportable 10/09/21 05:31 Anisocytosis 1+ 10/09/21 05:31 Microcytosis Not Reportable 10/09/21 05:31 Macrocytosis Not Reportable 10/09/21 05:31 Spherocytes Not Reportable 10/09/21 05:31 Pappenheimer Bodies Not Reportable 10/09/21 05:31 Sickle Cells Not Reportable 10/09/21 05:31 Target Cells Not Reportable 10/09/21 05:31 Tear Drop Cells Not Reportable 10/09/21 05:31 Ovalocytes Not Reportable 10/09/21 05:31 Helmet Cells Not Reportable 10/09/21 05:31 Navas-Lovejoy Bodies Not Reportable 10/09/21 05:31 [place] Rings Not Reportable 10/09/21 05:31 Anusha Cells Not Reportable 10/09/21 05:31 Bite Cells Not Reportable 10/09/21 05:31 Crenated Cell Not Reportable 10/09/21 05:31 Elliptocytes Not Reportable 10/09/21 05:31 Acanthocytes (Spur) Not Reportable 10/09/21 05:31 Rouleaux Not Reportable 10/09/21 05:31 Hemoglobin C Crystals Not Reportable 10/09/21 05:31 Schistocytes Not Reportable 10/09/21 05:31 Malaria parasites Not Reportable 10/09/21 05:31 Flaco Bodies Not Reportable 10/09/21 05:31 Hem Pathologist Commnt No 10/09/21 05:31 PT 17.8 Sec. (12.2-14.9) H 10/05/21 04:40 INR 1.31 (0.87-1.13) H 10/05/21 04:40 D-Dimer > 33051 ng/mlDDU (0-234) H 10/09/21 08:45 ABG pH 7.505 pH Units (7.350-7.450) H 10/10/21 Unknown ABG pCO2 27.6 mm Hg 10/10/21 Unknown ABG pO2 246.1 mm Hg (80.0-90.0) H 10/10/21 Unknown ABG HCO3 21.3 mmol/L (20.0-26.0) 10/10/21 Unknown ABG O2 Saturation 99.4 % (95.0-99.0) H 10/10/21 Unknown ABG O2 Content 8.9 (0.0-44) 10/10/21 Unknown ABG Base Excess -1.7 mmol/L (-2.0-3.0) 10/10/21 Unknown ABG Hemoglobin 6.0 gm/dl (12.0-16.0) L 10/10/21 Unknown ABG Carboxyhemoglobin 1.1 % (0.0-5.0) 10/10/21 Unknown ABG Methemoglobin 0.5 % (0.0-1.5) 10/10/21 Unknown Oxyhemoglobin 97.9 % (95.0-99.0) 10/10/21 Unknown FiO2 60 % 10/10/21 Unknown Sodium 135 mmol/L (137-145) L 10/11/21 03:30 Potassium 4.3 mmol/L (3.6-5.0) 10/11/21 03:30 Chloride 100.3 mmol/L (98-107) 10/11/21 03:30 Carbon Dioxide 20 mmol/L (22-30) L 10/11/21 03:30 Anion Gap 19 mmol/L 10/11/21 03:30 BUN 38 mg/dL (7-17) H 10/11/21 03:30 Creatinine 1.6 mg/dL (0.6-1.2) H 10/11/21 03:30 Estimated GFR 45 ml/min 10/11/21 03:30 BUN/Creatinine Ratio 24 % 10/11/21 03:30 Glucose 118 mg/dL (65-100) H 10/11/21 03:30 POC Glucose 129 mg/dL (70-105) H 10/10/21 23:50 Lactic Acid 1.80 mmol/L (0.7-2.0) 10/10/21 04:10 Calcium 7.9 mg/dL (8.4-10.2) L 10/11/21 03:30 Phosphorus 3.50 mg/dL (2.5-4.5) D 10/11/21 03:30 Magnesium 1.90 mg/dL (1.7-2.3) 10/11/21 03:30 Ferritin 751.9 ng/mL (10.0-200.0) H 10/09/21 05:31 Total Bilirubin 0.30 mg/dL (0.1-1.2) 10/09/21 05:31 AST 26 units/L (5-40) 10/09/21 05:31 ALT 11 units/L (7-56) 10/09/21 05:31 Alkaline Phosphatase 63 units/L (35-129) 10/09/21 05:31 Lactate Dehydrogenase 472 units/L (91-180) H 10/09/21 05:31 Total Creatine Kinase 242 units/L (30-135) H 10/06/21 05:27 C-Reactive Protein 15.90 mg/dL (0.00-1.30) H 10/09/21 05:31 Total Protein 5.8 g/dL (6.3-8.2) L 10/09/21 05:31 Albumin 2.3 g/dL (3.9-5) L 10/09/21 05:31 Albumin/Globulin Ratio 0.7 % 10/09/21 05:31 Procalcitonin 12.98 ng/mL (<0.15) 10/09/21 05:31 Urine Color Yellow (Yellow) 09/24/21 14:49 Urine Turbidity Slightly-cloudy (Clear) 09/24/21 14:49 Urine pH 6.0 (5.0-7.0) 09/24/21 14:49 Ur Specific [place] 1.017 (1.003-1.030) 09/24/21 14:49 Urine Protein 30 mg/dl mg/dL (Negative) 09/24/21 14:49 Urine Glucose (UA) Neg mg/dL (Negative) 09/24/21 14:49 Urine Ketones Neg mg/dL (Negative) 09/24/21 14:49 Urine Blood Neg (Negative) 09/24/21 14:49 Urine Nitrite Neg (Negative) 09/24/21 14:49 Ur Reducing Substances Not Reportable 09/24/21 14:49 Urine Bilirubin Neg (Negative) 09/24/21 14:49 Urine Ictotest Not Reportable 09/24/21 14:49 Urine Urobilinogen < 2.0 mg/dL (<2.0) 09/24/21 14:49 Ur Leukocyte Esterase Neg (Negative) 09/24/21 14:49 Urine WBC (Auto) 4.0 /HPF (0.0-6.0) 09/24/21 14:49 Urine RBC (Auto) 2.0 /HPF (0.0-6.0) 09/24/21 14:49 U Epithel Cells (Auto) 18.0 /HPF (0-13.0) H 09/24/21 14:49 Urine Mucus Few /HPF 09/24/21 14:49 Urine HCG, Qual Negative (Negative) 09/24/21 14:49 Coronavirus (PCR) Negative (Negative) 10/09/21 10:15 Blood Type A POSITIVE 10/08/21 22:55 Antibody Screen Negative 10/08/21 22:55 Crossmatch See Detail 10/08/21 22:55 Microbiology: Microbiology 10/08/21 22:55 Peripheral/Venous Blood Culture - Preliminary NO GROWTH AFTER 48 HOURS 10/08/21 23:30 Peripheral/Venous Blood Culture - Preliminary NO GROWTH AFTER 48 HOURS Doss/IV: Voiding Method Indwelling Catheter Active Medications - Current Medications Current Medications: Generic Name Dose Route Start Last Admin Trade Name Freq PRN Reason Stop Dose Admin Acetaminophen 650 mg 10/08/21 21:38 Acetaminophen 325 Mg Tab PO Q6H PRN Pain, Mild (1-3) Albuterol 2.5 mg 09/24/21 18:07 Albuterol 2.5 Mg/3 Ml Nebu IH Q4HRT PRN Shortness Of Breath Dextrose 0 ml 10/03/21 12:37 Dextrose 10% *Hypoglycemia IV PRN PRN Hypoglycemia Diphenhydramine HCl 25 mg 10/04/21 15:14 10/07/21 00:34 Diphenhydramine 50 Mg/Ml Vial IV 25 mg Q6H PRN Administration Itching Famotidine 20 mg 10/08/21 22:00 10/10/21 21:41 Famotidine 20 Mg/2 Ml Inj IV 20 mg BID JAZ Administration Fentanyl 50 mcg 10/08/21 22:10 Fentanyl 100 Mcg/2 Ml Inj IV Q10MIN PRN ANALGESIA Furosemide 20 mg 10/10/21 14:00 10/10/21 14:09 Furosemide 20 Mg/2 Ml Inj IV 20 mg QDAY JAZ Administration Heparin Sodium (Porcine) 5,000 unit 10/07/21 06:00 10/11/21 05:28 Heparin 5,000 Unit/1 Ml Vial SUB-Q 5,000 unit Q8HR JAZ Administration Hydromorphone HCl 0.25 mg 10/08/21 21:38 Hydromorphone 1 Mg/1 Ml Inj IV Q4H PRN Pain, Moderate (4-6) Hydrophilic Ointment 1 applic 10/08/21 21:00 Lip Therapy Vaseline TP Q2HR PRN Dry Lips Metronidazole 500 mg in 100 mls @ 100 mls/hr 10/02/21 16:00 10/11/21 01:53 Flagyl 500 Mg/100 Ml IV 100 mls/hr Q8H JAZ Administration Protocol Linezolid 600 mg in 300 mls @ 300 mls/hr 10/08/21 15:00 10/11/21 03:35 Zyvox 600mg/300ml IV 300 mls/hr Q12H JAZ Administration Protocol Propofol 1,000 mg in 100 mls @ 2.694 mls/hr 10/08/21 21:00 10/11/21 01:07 Diprivan 10 Mg/Ml IV 25 mcg/kg/min TITR JAZ 13.47 mls/hr Administration Protocol 5 MCG/KG/MIN Cefepime HCl 2 gm in 100 mls @ 200 mls/hr 10/08/21 22:00 10/10/21 21:41 Cefepime/Ns 2 Gm/100 Ml IV 200 mls/hr Q12H JAZ Administration Protocol Fentanyl Citrate 2,000 mcg in 100 mls @ 4.49 mls/hr 10/08/21 23:00 10/11/21 06:16 Fentanyl Drip Premix IV 4 mcg/kg/hr TITR JAZ 17.96 mls/hr Administration Protocol 1 MCG/KG/HR Vasopressin 20 unit/ Sodium 101 mls @ 9.09 mls/hr 10/08/21 23:00 10/09/21 14:30 Chloride IV 0 units/min TITR JAZ 0 mls/hr Titration Protocol 0.03 UNITS/MIN NORepinephrine/NS 8 MG-250 ML 8 mg in 250 mls @ 3.75 mls/hr 10/08/21 23:45 Norepinephrine/Ns 8 Mg-250 Ml (Double Conc) IV TITRATE JAZ Protocol 2 MCG/MIN Amino Acids/Electrolytes/Dextrose 1,999.92 mls @ 83.3 mls/hr 10/10/21 20:00 10/10/21 20:15 Tpn Adult IV 10/11/21 19:59 83.3 mls/hr DAILY@2000 [facility] Administration Protocol Insulin Human Regular 0 units 10/10/21 00:00 10/11/21 06:13 Insulin Regular, Human 100 Units/1 Ml SUB-Q Not Given Q6HR [facility] Protocol Labetalol HCl 10 mg 10/01/21 08:31 10/08/21 13:22 Labetalol 20 Mg/4 Ml Inj IV 10 mg Q6H PRN Administration Hypertension Multi-Ingred Cream/Lotion/Oil/Oint 1 applic 10/08/21 21:00 Mineral Oil/Petrolatum, White Ophth Oint 3.5 Gm OU Q4HR PRN Dry Eye(s) Naloxone HCl 0.1 mg 10/03/21 14:00 Naloxone 0.4 Mg/1 Ml Inj IV Q2MIN PRN Res Rate </= 8 or 02 SAT < 92% Ondansetron HCl 4 mg 09/24/21 18:07 10/05/21 11:39 Ondansetron 4 Mg/2 Ml Inj IV 4 mg Q8H PRN Administration Nausea And Vomiting Phenol 1 spray 10/02/21 13:00 10/03/21 10:23 Phenol 1.4% 177 Ml Bottle MM 1 spray PRN PRN Administration Sore Throat Scopolamine 1 each 10/04/21 10:00 10/10/21 09:53 Scopolamine Transdermal Patch 72 Hr TD 1 each Q3D JAZ Administration Sodium Chloride 10 ml 09/24/21 22:00 10/10/21 21:41 Sodium Chloride 0.9% 10 Ml Flush Syringe IV 10 ml BID JAZ Administration Sodium Chloride 10 ml 09/24/21 18:07 09/25/21 08:34 Sodium Chloride 0.9% 10 Ml Flush Syringe IV 10 ml PRN PRN Administration LINE FLUSH Nutrition/Malnutrition Assess - Dietary Evaluation Nutrition/Malnutrition Findings: Nutrition Notes Start: 09/25/21 15:31 Freq: Status: Active Protocol: Document 10/10/21 11:16 [facility] (Rec: 10/10/21 11:21 [facility] [id number]) Nutrition Notes Initial or Follow up Reassessment Current Diagnosis Acute Kidney Injury,Sepsis Other Pertinent Diagnosis Perforated appendicitis s/p appendectomy with (R) hemicolectomy Current Diet CPN at 83.33ml/hr Labs/Tests Na 130 BG 181 Cl 97.9 CO2 - 19 BUN 37 Cr 1.4 Pertinent Medications 2 units Humulin R, Levophed gtt, Propofol at 10.776ml/hr ( provides 284 kcal) Height 5 ft 7 in Weight 104.4 kg [place] Body Weight (kg) 61.36 BMI 36.0 Weight Status Obese Subjective/Other Information Day 8 PN. Pt remains on vent support. Scheduled for IR- guided drain placement into air pocket near anastomosis on 10/11. Percent of energy/protein needs met: 61% energy 77% pro (meeting 77% of energy needs if propofol included) Burn Absent Trauma Absent #1 Nutrition Diagnosis Altered GI function Diagnosis Progress(for reassessment Continues documentation) Is patient on ventilator? Yes Is Patient Ambulatory and/or Out of Bed No REE-([place]-confined to bed) 2145.768 Kcal/Kg value to use for calculation 16 Approximate Energy Requirements Using 1670 kcal/Kg Calculation Used for Recommendations Kcal/kg Additional Notes Pro needs 2g/kg IBW: 123g/day Fluid needs 1ml/kcal Nutrition Intervention Nutrition Support: Continue CPN at 83.33ml/hr: MVI, 5% amino acids, 10% dextrose, 5mEq Mg, 150mEq Na, 30mmol Phos, 50%/50% chloride/ acetate. Osmolality: 1205. Kcal 1,080 Protein (gm) 100 Carbohydrates (gm) 200 Fat (gm) 0 Fluid (mL) 2,000 Fiber (gm) 0 Goal #1 CPN to meet at least 75% energy and pro needs Follow-Up By: 10/11/21 Additional Comments Labs in am: BMP, Mg, Phos F/U: vent status, pressor support, propofol
--- NOTE | 2021-10-10 12:08 | Progress Note ---
Assessment and Plan - Patient Problems (1) Acute respiratory failure with hypoxia Current Visit: Yes Status: Acute Plan to address problem: Patient intubated at this time. Ventilator management per ICU team. CT chest reviewed and concerning for worsening bilateral opacities secondary to pneumonia versus fluid overload and pulmonary edema. Responded well to done dose of lasix 20 mg IV x 1. FIO2 down to 60% on vent this am with improvement in chest xray noted. Will give another dose of lasix 20 mg IV today. (2) Acute renal failure Current Visit: Yes Status: Acute Plan to address problem: Overall renal function has stabilized over the last couple of days. Will monitor closely. Avoid all nephrotoxins and maintain mean arterial pressures above 65 mmHg. (3) Appendicitis with perforation Current Visit: Yes Status: Acute Plan to address problem: Status post left hemicolectomy with appendectomy Complicated by CT evidence of extraluminal gas in a contained collection, pending CT guided drainage tomorrow. (4) Hypoalbuminemia due to protein-calorie malnutrition Current Visit: Yes Status: Acute Plan to address problem: Continuing on TPN at this time. (5) Hypokalemia Current Visit: Yes Status: Acute Plan to address problem: Replete per protocol. Subjective Date of service: 10/10/21 Principal diagnosis: BRYANNA Interval history: No acute changes, remains intubated, responded well with lasix 20 mg IV x 1 yesterday. Remains non oliguric and has ~ 400 cc UOP noted in [place] this morning. Labs indicate stable renal function. Chest xray showing improvement in pulmonary edema. Objective - Vital Signs Vital signs: Vital Signs - 12hr 10/10/21 10/10/21 10/10/21 00:30 01:00 01:30 Temperature Pulse Rate 95 H 87 84 Pulse Rate [ Anterior Bilateral Throughout] Pulse Rate [ From Monitor] Respiratory 23 26 H 27 H Rate Respiratory Rate [Anterior Bilateral Throughout] Blood Pressure 114/73 102/67 102/63 O2 Sat by Pulse 100 100 100 Oximetry 10/10/21 10/10/21 10/10/21 02:00 02:30 03:00 Temperature Pulse Rate 86 82 81 Pulse Rate [ Anterior Bilateral Throughout] Pulse Rate [ From Monitor] Respiratory 26 H 16 25 H Rate Respiratory Rate [Anterior Bilateral Throughout] Blood Pressure 102/59 107/66 108/59 O2 Sat by Pulse 100 100 100 Oximetry 03/01/2610/10/21 10/10/21 03:30 04:00 04:30 Temperature 97.9 F Pulse Rate 78 77 80 Pulse Rate [ Anterior Bilateral Throughout] Pulse Rate [ 95 H From Monitor] Respiratory 26 H 26 H 19 Rate Respiratory Rate [Anterior Bilateral Throughout] Blood Pressure 104/58 107/65 104/62 O2 Sat by Pulse 100 100 100 Oximetry 10/10/21 10/10/21 10/10/21 05:00 05:30 06:00 Temperature Pulse Rate 84 76 82 Pulse Rate [ Anterior Bilateral Throughout] Pulse Rate [ From Monitor] Respiratory 16 26 H 26 H Rate Respiratory Rate [Anterior Bilateral Throughout] Blood Pressure 105/64 105/60 94/54 O2 Sat by Pulse 100 100 100 Oximetry 10/10/21 10/10/21 10/10/21 06:30 07:01 07:30 Temperature Pulse Rate 76 85 79 Pulse Rate [ Anterior Bilateral Throughout] Pulse Rate [ From Monitor] Respiratory 26 H 21 26 H Rate Respiratory Rate [Anterior Bilateral Throughout] Blood Pressure 93/52 118/70 98/61 O2 Sat by Pulse 100 100 100 Oximetry 10/10/21 10/10/21 10/10/21 07:48 08:00 08:05 Temperature 98.6 F 98.6 F Pulse Rate 75 Pulse Rate [ 74 Anterior Bilateral Throughout] Pulse Rate [ 75 From Monitor] Respiratory 22 Rate Respiratory 22 Rate [Anterior Bilateral Throughout] Blood Pressure 98/50 O2 Sat by Pulse 100 Oximetry 10/10/21 10/10/21 10/10/21 08:30 09:00 09:30 Temperature Pulse Rate 84 79 74 Pulse Rate [ Anterior Bilateral Throughout] Pulse Rate [ From Monitor] Respiratory 21 22 22 Rate Respiratory Rate [Anterior Bilateral Throughout] Blood Pressure 99/56 95/51 94/47 O2 Sat by Pulse 100 100 100 Oximetry 10/10/21 10/10/21 10/10/21 10:01 10:30 11:54 Temperature 98.4 F Pulse Rate 90 80 Pulse Rate [ Anterior Bilateral Throughout] Pulse Rate [ From Monitor] Respiratory 22 19 Rate Respiratory Rate [Anterior Bilateral Throughout] Blood Pressure 125/70 99/54 O2 Sat by Pulse 100 100 Oximetry - General Appearance General appearance: intubated EENT: ATNC Neck: no JVD Respiratory: Present: Decreased Breath Sounds Cardiology: regular Gastrointestinal: normal Integumentary: no rash Musculoskeletal: deferred - Lab 10/10/21 04:10 10/10/21 04:10 Most recent lab results ABG pH 7.505 pH Units (7.350-7.450) H 10/10/21 Unknown ABG pCO2 27.6 mm Hg 10/10/21 Unknown ABG pO2 246.1 mm Hg (80.0-90.0) H 10/10/21 Unknown ABG HCO3 21.3 mmol/L (20.0-26.0) 10/10/21 Unknown ABG O2 Saturation 99.4 % (95.0-99.0) H 10/10/21 Unknown Calcium 7.8 mg/dL (8.4-10.2) L 10/10/21 04:10 Phosphorus 2.80 mg/dL (2.5-4.5) D 10/10/21 04:10 Magnesium 1.70 mg/dL (1.7-2.3) 10/10/21 04:10 - Imaging Chest x-ray: report reviewed CT scan - abdomen: report reviewed - Allied health notes Allied health notes reviewed: nursing Medications & Allergies - Medications Allergies/Adverse Reactions: Allergies No Known Allergies Allergy (Verified 09/24/21 12:21) Home Medications: Home Medications Medication Instructions Recorded Confirmed Last Taken Type No Known Home Medications [No 09/27/21 09/27/21 Unknown History Reported Home Medications] Active Medications: Generic Name Dose Route Start Last Admin Trade Name Freq PRN Reason Stop Dose Admin Acetaminophen 650 mg 10/08/21 21:38 Acetaminophen 325 Mg Tab PO Q6H PRN Pain, Mild (1-3) Albuterol 2.5 mg 09/24/21 18:07 Albuterol 2.5 Mg/3 Ml Nebu IH Q4HRT PRN Shortness Of Breath Dextrose 0 ml 10/03/21 12:37 Dextrose 10% *Hypoglycemia IV PRN PRN Hypoglycemia Diphenhydramine HCl 25 mg 10/04/21 15:14 10/07/21 00:34 Diphenhydramine 50 Mg/Ml Vial IV 25 mg Q6H PRN Administration Itching Famotidine 20 mg 10/08/21 22:00 10/10/21 09:53 Famotidine 20 Mg/2 Ml Inj IV 20 mg BID JAZ Administration Fentanyl 50 mcg 10/08/21 22:10 Fentanyl 100 Mcg/2 Ml Inj IV Q10MIN PRN ANALGESIA Heparin Sodium (Porcine) 5,000 unit 10/07/21 06:00 10/10/21 05:59 Heparin 5,000 Unit/1 Ml Vial SUB-Q 5,000 unit Q8HR JAZ Administration Hydromorphone HCl 0.25 mg 10/08/21 21:38 Hydromorphone 1 Mg/1 Ml Inj IV Q4H PRN Pain, Moderate (4-6) Hydrophilic Ointment 1 applic 10/08/21 21:00 Lip Therapy Vaseline TP Q2HR PRN Dry Lips Metronidazole 500 mg in 100 mls @ 100 mls/hr 10/02/21 16:00 10/10/21 08:18 Flagyl 500 Mg/100 Ml IV 100 mls/hr Q8H JAZ Administration Protocol Linezolid 600 mg in 300 mls @ 300 mls/hr 10/08/21 15:00 10/10/21 02:53 Zyvox 600mg/300ml IV 300 mls/hr Q12H JAZ Administration Protocol Propofol 1,000 mg in 100 mls @ 2.694 mls/hr 10/08/21 21:00 10/10/21 04:42 Diprivan 10 Mg/Ml IV 20 mcg/kg/min TITR JAZ 10.776 mls/hr Administration Protocol 5 MCG/KG/MIN Cefepime HCl 2 gm in 100 mls @ 200 mls/hr 10/08/21 22:00 10/10/21 09:53 Cefepime/Ns 2 Gm/100 Ml IV 200 mls/hr Q12H JAZ Administration Protocol Fentanyl Citrate 2,000 mcg in 100 mls @ 4.49 mls/hr 10/08/21 23:00 10/10/21 07:10 Fentanyl Drip Premix IV 4 mcg/kg/hr TITR JAZ 17.96 mls/hr Administration Protocol 1 MCG/KG/HR Vasopressin 20 unit/ Sodium 101 mls @ 9.09 mls/hr 10/08/21 23:00 10/09/21 14:30 Chloride IV 0 units/min TITR JAZ 0 mls/hr Titration Protocol 0.03 UNITS/MIN NORepinephrine/NS 8 MG-250 ML 8 mg in 250 mls @ 3.75 mls/hr 10/08/21 23:45 Norepinephrine/Ns 8 Mg-250 Ml (Double Conc) IV TITRATE JAZ Protocol 2 MCG/MIN Amino Acids/Electrolytes/Dextrose 2,000 mls @ 83.3 mls/hr 10/09/21 20:00 10/09/21 21:01 Tpn Adult IV 10/10/21 19:59 83.3 mls/hr DAILY@1999 [facility] Administration Protocol Amino Acids/Electrolytes/Dextrose 1,999.92 mls @ 83.3 mls/hr 10/10/21 20:00 Tpn Adult IV 10/11/21 19:59 DAILY@1999 [facility] Protocol Insulin Human Regular 0 units 10/10/21 00:00 10/10/21 05:46 Insulin Regular, Human 100 Units/1 Ml SUB-Q 2 units Q6HR [facility] Administration Protocol Labetalol HCl 10 mg 10/01/21 08:31 10/08/21 13:22 Labetalol 20 Mg/4 Ml Inj IV 10 mg Q6H PRN Administration Hypertension Multi-Ingred Cream/Lotion/Oil/Oint 1 applic 10/08/21 21:00 Mineral Oil/Petrolatum, White Ophth Oint 3.5 Gm OU Q4HR PRN Dry Eye(s) Naloxone HCl 0.1 mg 10/03/21 14:00 Naloxone 0.4 Mg/1 Ml Inj IV Q2MIN PRN Res Rate </= 8 or 02 SAT < 92% Ondansetron HCl 4 mg 09/24/21 18:07 10/05/21 11:39 Ondansetron 4 Mg/2 Ml Inj IV 4 mg Q8H PRN Administration Nausea And Vomiting Phenol 1 spray 10/02/21 13:00 10/03/21 10:23 Phenol 1.4% 177 Ml Bottle MM 1 spray PRN PRN Administration Sore Throat Scopolamine 1 each 10/04/21 10:00 10/10/21 09:53 Scopolamine Transdermal Patch 72 Hr TD 1 each Q3D JAZ Administration Sodium Chloride 10 ml 09/24/21 22:00 10/10/21 09:53 Sodium Chloride 0.9% 10 Ml Flush Syringe IV 10 ml BID JAZ Administration Sodium Chloride 10 ml 09/24/21 18:07 09/25/21 08:34 Sodium Chloride 0.9% 10 Ml Flush Syringe IV 10 ml PRN PRN Administration LINE FLUSH
[2021-10-10] MEDS: FUROSEMIDE 20 MG/2 ML INJ IV SCH (14:09)
[2021-10-10] MEDS ORDERED: TOTAL PARENTERAL NUTRITION 1,999.92 ML IV SCH (20:00)
[2021-10-11] MEDS: fentaNYL DRIP Premix 2,000 MCG/100 ML BAG IV SCH ×5 (01:07→22:34)
[2021-10-11] MEDS: INSULIN REGULAR, HUMAN 100 UNITS/1 ML SUB-Q SCH ×4 (01:53→18:39)
[2021-10-11] MEDS: metroNIDAZOLE/NS 500 MG/100 ML 500 MG/100 ML BAG IV SCH ×3 (01:53→15:27)
[2021-10-11] MEDS: LINEZOLID 600 MG/300 ML BAG IV SCH ×2 (03:35→15:27)
[2021-10-11] MEDS: HEPARIN 5,000 UNIT/1 ML VIAL SUB-Q SCH ×4 (05:28→21:27)
[2021-10-11 05:39] LABS: Hematocrit 20.3 % (30.3-42.9); Hemoglobin 6.7 gm/dl (10.1-14.3); Mean Corpuscular HGB Conc 33 % (30-34); Mean Corpuscular Volume 85 fl (79-97); Platelet Count 701 K/mm3 (140-440); Red Blood Count 2.39 M/mm3 (3.65-5.03); Red Cell Distribution Width 16.7 % (13.2-15.2)
[2021-10-11 05:56] LABS: Calcium 7.9 mg/dL (8.4-10.2)
[2021-10-11] MEDS ORDERED: SODIUM CHLORIDE 0.9% 500 ML 500 ML IV ONE ×2 (06:48→10:00)
--- NOTE | 2021-10-11 07:17 | XRay Report ---
CHEST 1 VIEW INDICATION / CLINICAL INFORMATION: follow up respiratory failure. COMPARISON: Chest x-ray 10/10/2021 FINDINGS: SUPPORT DEVICES: Stable, satisfactory device positioning. HEART / MEDIASTINUM: Stable mild cardiomegaly. LUNGS / PLEURA: Lungs are now essentially clear. No pneumothorax. ADDITIONAL FINDINGS: No significant additional findings. IMPRESSION: 1. Lungs are essentially clear. 2. Stable cardiomegaly. 3. Satisfactory positioning of tubes and lines. Signer Name: Lukas Elizabeth II, MD Signed: 10/11/2021 7:12 AM Workstation Name: [id number]
--- NOTE | 2021-10-11 08:52 | Progress Note ---
Assessment and Plan - Patient Problems (1) Acute respiratory failure with hypoxia Current Visit: Yes Status: Acute Plan to address problem: Patient intubated at this time. Ventilator management per ICU team. CT chest reviewed and concerning for worsening bilateral opacities secondary to pneumonia versus fluid overload and pulmonary edema. Responded well to done dose of lasix 20 mg IV x 1. FIO2 down to 35% on vent this am with improvement in chest xray noted. Maintained on lasix 20 mg daily. (2) Acute renal failure Current Visit: Yes Status: Acute Plan to address problem: Overall renal function has stabilized over the last couple of days. Will mo nitor closely. Avoid all nephrotoxins and maintain mean arterial pressures above 65 mmHg. (3) Appendicitis with perforation Current Visit: Yes Status: Acute Plan to address problem: Status post left hemicolectomy with appendectomy Complicated by CT evidence of extraluminal gas in a contained collection, pending CT guided drainage today. (4) Hypoalbuminemia due to protein-calorie malnutrition Current Visit: Yes Status: Acute Plan to address problem: Continuing on TPN at this time. (5) Hypokalemia Current Visit: Yes Status: Acute Plan to address problem: Replete per protocol. Subjective Date of service: 10/11/21 Principal diagnosis: BRYANNA Interval history: No acute issues overnight. Fio2 down to 35% this am. Remains non-oliguric and responding well to daily lasix 20 mg IV. Objective - Vital Signs Vital signs: Vital Signs - 12hr 10/10/21 10/10/21 10/10/21 21:00 21:30 22:00 Temperature Pulse Rate 67 73 64 Pulse Rate [ From Monitor] Respiratory 22 19 22 Rate Blood Pressure 126/63 129/80 123/64 O2 Sat by Pulse 100 100 100 Oximetry 10/10/21 10/10/21 10/10/21 22:30 23:00 23:10 Temperature Pulse Rate 66 63 64 Pulse Rate [ From Monitor] Respiratory 22 22 22 Rate Blood Pressure 118/61 114/58 114/58 O2 Sat by Pulse 100 100 100 Oximetry 10/10/21 10/11/21 10/11/21 23:30 00:00 00:30 Temperature 97.8 F Pulse Rate 64 64 64 Pulse Rate [ 70 From Monitor] Respiratory 22 22 22 Rate Blood Pressure 116/65 126/64 120/65 O2 Sat by Pulse 100 100 100 Oximetry 10/11/21 10/11/21 10/11/21 01:00 01:30 02:00 Temperature Pulse Rate 61 74 64 Pulse Rate [ From Monitor] Respiratory 22 22 22 Rate Blood Pressure 121/66 131/74 120/66 O2 Sat by Pulse 100 99 100 Oximetry 10/11/21 10/11/21 10/11/21 02:30 03:00 03:30 Temperature Pulse Rate 63 64 83 Pulse Rate [ From Monitor] Respiratory 22 22 21 Rate Blood Pressure 118/64 122/64 141/87 O2 Sat by Pulse 100 100 100 Oximetry 10/11/21 10/11/21 10/11/21 04:00 04:30 05:00 Temperature Pulse Rate 64 63 67 Pulse Rate [ 70 From Monitor] Respiratory 22 22 18 Rate Blood Pressure 121/62 123/66 126/74 O2 Sat by Pulse 100 100 Oximetry 10/11/21 10/11/21 10/11/21 05:30 06:00 06:30 Temperature Pulse Rate 61 61 105 H Pulse Rate [ From Monitor] Respiratory 22 22 18 Rate Blood Pressure 119/65 119/70 128/77 O2 Sat by Pulse 100 100 100 Oximetry 10/11/21 10/11/21 10/11/21 07:00 07:22 07:30 Temperature Pulse Rate 96 H 82 96 H Pulse Rate [ From Monitor] Respiratory 18 9 L Rate Blood Pressure 148/86 121/65 157/92 O2 Sat by Pulse 100 100 100 Oximetry 10/11/21 10/11/21 08:00 08:30 Temperature 99.1 F Pulse Rate 75 85 Pulse Rate [ 75 From Monitor] Respiratory 22 14 Rate Blood Pressure 133/70 131/78 O2 Sat by Pulse 100 100 Oximetry - General Appearance General appearance: appears stated age, chronically ill, intubated EENT: ATNC Neck: no JVD Respiratory: Present: Clear to Ascultation Cardiology: regular Gastrointestinal: normal Integumentary: no rash Musculoskeletal: deferred - Lab 10/11/21 03:30 10/11/21 03:30 Most recent lab results ABG pH 7.505 pH Units (7.350-7.450) H 10/10/21 Unknown ABG pCO2 27.6 mm Hg 10/10/21 Unknown ABG pO2 246.1 mm Hg (80.0-90.0) H 10/10/21 Unknown ABG HCO3 21.3 mmol/L (20.0-26.0) 10/10/21 Unknown ABG O2 Saturation 99.4 % (95.0-99.0) H 10/10/21 Unknown Calcium 7.9 mg/dL (8.4-10.2) L 10/11/21 03:30 Phosphorus 3.50 mg/dL (2.5-4.5) D 10/11/21 03:30 Magnesium 1.90 mg/dL (1.7-2.3) 10/11/21 03:30 - Imaging Chest x-ray: report reviewed - Allied health notes Allied health notes reviewed: nursing Medications & Allergies - Medications Allergies/Adverse Reactions: Allergies No Known Allergies Allergy (Verified 09/24/21 12:21) Home Medications: Home Medications Medication Instructions Recorded Confirmed Last Taken Type No Known Home Medications [No 09/27/21 09/27/21 Unknown History Reported Home Medications] Active Medications: Generic Name Dose Route Start Last Admin Trade Name Freq PRN Reason Stop Dose Admin Acetaminophen 650 mg 10/08/21 21:38 Acetaminophen 325 Mg Tab PO Q6H PRN Pain, Mild (1-3) Albuterol 2.5 mg 09/24/21 18:07 Albuterol 2.5 Mg/3 Ml Nebu IH Q4HRT PRN Shortness Of Breath Dextrose 0 ml 10/03/21 12:37 Dextrose 10% *Hypoglycemia IV PRN PRN Hypoglycemia Diphenhydramine HCl 25 mg 10/04/21 15:14 10/07/21 00:34 Diphenhydramine 50 Mg/Ml Vial IV 25 mg Q6H PRN Administration Itching Famotidine 20 mg 10/08/21 22:00 10/10/21 21:41 Famotidine 20 Mg/2 Ml Inj IV 20 mg BID JAZ Administration Fentanyl 50 mcg 10/08/21 22:10 Fentanyl 100 Mcg/2 Ml Inj IV Q10MIN PRN ANALGESIA Furosemide 20 mg 10/10/21 14:00 10/10/21 14:09 Furosemide 20 Mg/2 Ml Inj IV 20 mg QDAY JAZ Administration Heparin Sodium (Porcine) 5,000 unit 10/07/21 06:00 10/11/21 05:28 Heparin 5,000 Unit/1 Ml Vial SUB-Q 5,000 unit Q8HR JAZ Administration Hydromorphone HCl 0.25 mg 10/08/21 21:38 Hydromorphone 1 Mg/1 Ml Inj IV Q4H PRN Pain, Moderate (4-6) Hydrophilic Ointment 1 applic 10/08/21 21:00 Lip Therapy Vaseline TP Q2HR PRN Dry Lips Metronidazole 500 mg in 100 mls @ 100 mls/hr 10/02/21 16:00 10/11/21 08:21 Flagyl 500 Mg/100 Ml IV 100 mls/hr Q8H JAZ Administration Protocol Linezolid 600 mg in 300 mls @ 300 mls/hr 10/08/21 15:00 10/11/21 03:35 Zyvox 600mg/300ml IV 300 mls/hr Q12H JAZ Administration Protocol Propofol 1,000 mg in 100 mls @ 2.694 mls/hr 10/08/21 21:00 10/11/21 08:20 Diprivan 10 Mg/Ml IV 25 mcg/kg/min TITR JAZ 13.47 mls/hr Administration Protocol 5 MCG/KG/MIN Cefepime HCl 2 gm in 100 mls @ 200 mls/hr 10/08/21 22:00 10/10/21 21:41 Cefepime/Ns 2 Gm/100 Ml IV 200 mls/hr Q12H JAZ Administration Protocol Fentanyl Citrate 2,000 mcg in 100 mls @ 4.49 mls/hr 10/08/21 23:00 10/11/21 06:16 Fentanyl Drip Premix IV 4 mcg/kg/hr TITR JAZ 17.96 mls/hr Administration Protocol 1 MCG/KG/HR Vasopressin 20 unit/ Sodium 101 mls @ 9.09 mls/hr 10/08/21 23:00 10/09/21 14:30 Chloride IV 0 units/min TITR JAZ 0 mls/hr Titration Protocol 0.03 UNITS/MIN NORepinephrine/NS 8 MG-250 ML 8 mg in 250 mls @ 3.75 mls/hr 10/08/21 23:45 Norepinephrine/Ns 8 Mg-250 Ml (Double Conc) IV TITRATE JAZ Protocol 2 MCG/MIN Amino Acids/Electrolytes/Dextrose 1,999.92 mls @ 83.3 mls/hr 10/10/21 20:00 10/10/21 20:15 Tpn Adult IV 10/11/21 19:59 83.3 mls/hr DAILY@[email or web address] [facility] Administration Protocol Insulin Human Regular 0 units 10/10/21 00:00 10/11/21 06:13 Insulin Regular, Human 100 Units/1 Ml SUB-Q Not Given Q6HR [facility] Protocol Labetalol HCl 10 mg 10/01/21 08:31 10/08/21 13:22 Labetalol 20 Mg/4 Ml Inj IV 10 mg Q6H PRN Administration Hypertension Multi-Ingred Cream/Lotion/Oil/Oint 1 applic 10/08/21 21:00 Mineral Oil/Petrolatum, White Ophth Oint 3.5 Gm OU Q4HR PRN Dry Eye(s) Naloxone HCl 0.1 mg 10/03/21 14:00 Naloxone 0.4 Mg/1 Ml Inj IV Q2MIN PRN Res Rate </= 8 or 02 SAT < 92% Ondansetron HCl 4 mg 09/24/21 18:07 10/05/21 11:39 Ondansetron 4 Mg/2 Ml Inj IV 4 mg Q8H PRN Administration Nausea And Vomiting Phenol 1 spray 10/02/21 13:00 10/03/21 10:23 Phenol 1.4% 177 Ml Bottle MM 1 spray PRN PRN Administration Sore Throat Scopolamine 1 each 10/04/21 10:00 10/10/21 09:53 Scopolamine Transdermal Patch 72 Hr TD 1 each Q3D JAZ Administration Sodium Chloride 10 ml 09/24/21 22:00 10/10/21 21:41 Sodium Chloride 0.9% 10 Ml Flush Syringe IV 10 ml BID JAZ Administration Sodium Chloride 10 ml 09/24/21 18:07 09/25/21 08:34 Sodium Chloride 0.9% 10 Ml Flush Syringe IV 10 ml PRN PRN Administration LINE FLUSH
[2021-10-11] MEDS: CEFEPIME/NS 2 GM/100 ML 2 GM/100 ML BAG IV SCH ×2 (09:05→21:27)
[2021-10-11] MEDS: FAMOTIDINE 20 MG/2 ML INJ IV SCH ×2 (09:05→21:27)
[2021-10-11] MEDS: FUROSEMIDE 20 MG/2 ML INJ IV SCH (09:05)
--- NOTE | 2021-10-11 10:18 | Event Note ---
Date: 10/11/21 I was able to get in touch with the patient's father and consent was obtained. Risk, benefits, and alternatives discussed. Patient's father agreed with procedure.
--- NOTE | 2021-10-11 12:15 | Progress Note ---
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 Open left hemicolectomy and partial omentectomy Peritonitis Leukocytosis Diverticulitis with absces Acute renal failure Acute blood loss anemia Gross Hematuria - s/p YURIDIA drains X 2 today - tentatively back to OR tomorrow - get 2D ECHO re: cardiomegaly and pulmonary edema - 1 unit PRBC transfusion - daily SAT and SBT assessment as tolerated - continue to wean supplemental oxygen for target O2 sat's > 90% acutely - VAP bundle addressed - continue lung protective strategies - continue bronchodilators with pulmonary hygiene per RT - wean per pulmonary driven protocols otherwise - avoid nephrotoxins, renally dose all medications - continue accuchecks with glycemic control per SSI (While critically ill target blood glucose of 140-180 mg/dL; avoid hypoglycemia) - sedation prn for target RASS 0 to -1 - continue to avoid benzodiazepine's, reduce the possibility of delirium - AB's per ID rec's - prn analgesia per CPOT score - Maintenance of sleep-wake cycle, avoid delirium - continue enteral nutritional support at goal rate as tolerated - G.I. & VTE prophylaxis - PT/OT/ROM exercises - continue mobility protocols for pressure ulcer prophylaxis - Monitor hemodynamics closely - continue other care per attending / other consultants - discharge planning ongoing concurrently COVID SPECIFIC INTERVENTIONS - COVID-19 PGR negative .... Re-evaluate in am & prn CONDITION: CRITICAL PROGNOSIS: GUARDED CODE STATUS: FULL CODE The high probability of a clinically significant, sudden or life-threatening deterioration of the [respiratory, cardiovascular & neurologic] system(s) required my full and direct attention, intervention and personal management. The aggregate critical care time was [34] minutes without overlap. 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 s/p appendectomy; VRE infection; Open left hemicolectomy and partial omentectomy; Peritonitis; Diverticulitis with abscess;' BRYANNA; ABLA; Gross Hematuria Seen and examined at bedside; 24hour events reviewed; nursing and respiratory care staff consulted; no adverse overnight events reported to me; resting in bed; remains on MVS; denies acute chest pain; denies N/V/F/C; good pain control per patient Objective Vital Signs - 12hr 10/11/21 10/11/21 10/11/21 00:30 01:00 01:30 Temperature Pulse Rate 64 61 74 Pulse Rate [ From Monitor] Respiratory 22 Rate Blood Pressure 120/65 121/66 131/74 O2 Sat by Pulse 100 100 99 Oximetry 10/11/21 10/11/21 10/11/21 02:00 02:30 03:00 Temperature Pulse Rate 64 63 64 Pulse Rate [ From Monitor] Respiratory 22 Rate Blood Pressure 120/66 118/64 122/64 O2 Sat by Pulse 100 100 100 Oximetry 10/11/21 10/11/21 10/11/21 03:30 04:00 04:30 Temperature Pulse Rate 83 64 63 Pulse Rate [ 70 From Monitor] Respiratory 21 22 22 Rate Blood Pressure 141/87 121/62 123/66 O2 Sat by Pulse 100 100 Oximetry 10/11/21 10/11/21 10/11/21 05:00 05:30 06:00 Temperature Pulse Rate 67 61 61 Pulse Rate [ From Monitor] Respiratory 18 22 22 Rate Blood Pressure 126/74 119/65 119/70 O2 Sat by Pulse 100 100 100 Oximetry 10/11/21 10/11/21 10/11/21 06:30 07:00 07:22 Temperature Pulse Rate 105 H 96 H 82 Pulse Rate [ From Monitor] Respiratory 18 18 Rate Blood Pressure 128/77 148/86 121/65 O2 Sat by Pulse 100 100 100 Oximetry 10/11/21 10/11/21 10/11/21 07:30 08:00 08:30 Temperature 99.1 F Pulse Rate 96 H 75 85 Pulse Rate [ 75 From Monitor] Respiratory 9 L 22 14 Rate Blood Pressure 157/92 133/70 131/78 O2 Sat by Pulse 100 100 100 Oximetry 10/11/21 10/11/21 10/11/21 09:00 09:30 09:38 Temperature 98.8 F Pulse Rate 66 69 100 H Pulse Rate [ From Monitor] Respiratory 22 22 18 Rate Blood Pressure 126/69 128/70 162/102 O2 Sat by Pulse 100 100 100 Oximetry 10/11/21 10/11/21 10/11/21 09:53 10:00 10:23 Temperature 99 F 98.8 F Pulse Rate 77 82 75 Pulse Rate [ From Monitor] Respiratory Rate Blood Pressure 141/93 147/84 147/84 O2 Sat by Pulse 100 100 100 Oximetry 10/11/21 10/11/21 10/11/21 10:30 10:53 11:00 Temperature 97.8 F Pulse Rate 72 67 69 Pulse Rate [ From Monitor] Respiratory Rate Blood Pressure 125/74 131/81 135/76 O2 Sat by Pulse 100 100 100 Oximetry 10/11/21 10/11/21 10/11/21 11:23 11:30 11:37 Temperature 98.7 F Pulse Rate 69 66 74 Pulse Rate [ From Monitor] Respiratory Rate Blood Pressure 130/82 137/80 130/82 O2 Sat by Pulse 100 99 99 Oximetry 10/11/21 10/11/21 10/11/21 11:53 11:58 11:59 Temperature 98.7 F 98.7 F 98.7 F Pulse Rate 70 67 Pulse Rate [ From Monitor] Respiratory Rate Blood Pressure 137/81 137/81 O2 Sat by Pulse 98 98 Oximetry Constitutional: appears uncomfortable, other (young obese female with mildly increased respiratory effort at rest on MVS) Eyes: non-icteric ENT: oropharynx dry, other (orally intubated ETT 7.5cm @24 at the lip) Neck: supple, other (RIJCVL) Effort: mildly labored Ascultation: Bilateral: diminished breath sounds, rhonchi Percussion: Bilateral: not dull Cardiovascular: regular rate and rhythm, other (S1,S2) Gastrointestinal: hypoactive bowel sounds, soft, tender (mild), other (YURIDIA drains, anterior abdominal dressings, Doss catheter) Integumentary: normal, other (post-op changes) Extremities: no cyanosis, pulses normal, no ischemia or petechiae, edema Neurologic: non-focal exam, pupils equal and round, CN II-XII normal, motor strength normal and Psychiatric: mood appropriate, affect normal CBC and BMP: 10/11/21 03:30 10/11/21 03:30 ABG, PT/INR, D-dimer: ABG ABG pH 7.505 pH Units (7.350-7.450) H 10/10/21 Unknown ABG pCO2 27.6 mm Hg 10/10/21 Unknown ABG pO2 246.1 mm Hg (80.0-90.0) H 10/10/21 Unknown ABG O2 Saturation 99.4 % (95.0-99.0) H 10/10/21 Unknown PT/INR, D-dimer PT 17.8 Sec. (12.2-14.9) H 10/05/21 04:40 INR 1.31 (0.87-1.13) H 10/05/21 04:40 D-Dimer > 28805 ng/mlDDU (0-234) H 10/09/21 08:45 Abnormal lab findings: Abnormal Labs 09/24/21 09/24/21 09/24/21 14:49 14:58 14:58 WBC 32.4 H RBC Hgb Hct MCH RDW Plt Count 535 H Ashley # (Auto) Seg Neutrophils % Seg Neuts % (Manual) 82.0 H Lymphocytes % (Manual) 2.0 L Monocytes % (Manual) Nucleated RBC % Seg Neutrophils # Seg Neutrophils # Man 26.6 H Lymphocytes # (Manual) 0.6 L Monocytes # (Manual) 1.6 H PT INR D-Dimer ABG pH ABG pO2 ABG HCO3 ABG O2 Saturation ABG Base Excess ABG Hemoglobin Oxyhemoglobin Sodium 134 L Potassium 3.5 L Chloride 97.6 L Carbon Dioxide BUN Creatinine Glucose 119 H POC Glucose Lactic Acid Calcium Phosphorus Magnesium Ferritin Lactate Dehydrogenase Total Creatine Kinase C-Reactive Protein Total Protein 6.1 L Albumin 3.3 L U Epithel Cells (Auto) 18.0 H Crossmatch 09/25/21 09/25/21 09/26/21 05:47 05:47 04:20 WBC 25.4 H 23.6 H RBC 3.54 L Hgb Hct MCH RDW Plt Count 466 H 486 H Ashley # (Auto) Seg Neutrophils % Seg Neuts % (Manual) 93.0 H 86.0 H Lymphocytes % (Manual) 4.0 L 3.0 L Monocytes % (Manual) Nucleated RBC % Seg Neutrophils # Seg Neutrophils # Man 23.6 H 20.3 H Lymphocytes # (Manual) 1.0 L 0.7 L Monocytes # (Manual) 0.9 H PT INR D-Dimer ABG pH ABG pO2 ABG HCO3 ABG O2 Saturation ABG Base Excess ABG Hemoglobin Oxyhemoglobin Sodium 136 L Potassium 3.0 L Chloride Carbon Dioxide 21 L BUN Creatinine Glucose POC Glucose Lactic Acid Calcium 7.8 L Phosphorus Magnesium Ferritin Lactate Dehydrogenase Total Creatine Kinase C-Reactive Protein Total Protein Albumin U Epithel Cells (Auto) Crossmatch 09/26/21 09/27/21 09/27/21 04:20 08:28 08:28 WBC 20.6 H RBC 3.42 L Hgb 9.9 L Hct 29.5 L D MCH RDW Plt Count Ashley # (Auto) Seg Neutrophils % Seg Neuts % (Manual) 94.1 H Lymphocytes % (Manual) 1.0 L Monocytes % (Manual) Nucleated RBC % Seg Neutrophils # Seg Neutrophils # Man 19.4 H Lymphocytes # (Manual) 0.2 L Monocytes # (Manual) PT INR D-Dimer ABG pH ABG pO2 ABG HCO3 ABG O2 Saturation ABG Base Excess ABG Hemoglobin Oxyhemoglobin Sodium Potassium 3.2 L Chloride Carbon Dioxide 20 L BUN Creatinine Glucose 137 H POC Glucose Lactic Acid Calcium 8.3 L 8.2 L Phosphorus Magnesium Ferritin Lactate Dehydrogenase Total Creatine Kinase C-Reactive Protein Total Protein Albumin U Epithel Cells (Auto) Crossmatch 09/28/21 09/28/21 09/29/21 04:55 15:35 07:02 WBC 15.1 H 16.5 H RBC 3.34 L 3.20 L Hgb 9.3 L 9.1 L Hct 28.7 L 27.3 L MCH RDW 15.3 H Plt Count 444 H 469 H Ashley # (Auto) 0.9 H Seg Neutrophils % 89.3 H Seg Neuts % (Manual) 88.0 H 80.0 H Lymphocytes % (Manual) 9.0 L 8.0 L Monocytes % (Manual) Nucleated RBC % Seg Neutrophils # 14.0 H Seg Neutrophils # Man 13.3 H 13.2 H Lymphocytes # (Manual) Monocytes # (Manual) PT INR D-Dimer ABG pH ABG pO2 ABG HCO3 ABG O2 Saturation ABG Base Excess ABG Hemoglobin Oxyhemoglobin Sodium Potassium 3.3 L Chloride 109.4 H Carbon Dioxide 20 L BUN Creatinine 0.5 L Glucose POC Glucose Lactic Acid Calcium 7.9 L Phosphorus Magnesium Ferritin Lactate Dehydrogenase Total Creatine Kinase C-Reactive Protein Total Protein Albumin U Epithel Cells (Auto) Crossmatch 09/30/21 09/30/21 10/01/21 05:40 05:40 07:49 WBC 17.4 H 17.9 H RBC 3.37 L 3.32 L Hgb 9.2 L 9.3 L Hct 28.4 L 28.3 L MCH 27 L RDW 15.4 H 15.5 H Plt Count 530 H 604 H Ashley # (Auto) Seg Neutrophils % Seg Neuts % (Manual) 91.0 H 72.0 H Lymphocytes % (Manual) 9.0 L 1.0 L Monocytes % (Manual) 8.0 H Nucleated RBC % 1.0 H Seg Neutrophils # Seg Neutrophils # Man 15.8 H 12.9 H Lymphocytes # (Manual) 0.2 L Monocytes # (Manual) 1.4 H PT INR D-Dimer ABG pH ABG pO2 ABG HCO3 ABG O2 Saturation ABG Base Excess ABG Hemoglobin Oxyhemoglobin Sodium Potassium 3.5 L Chloride Carbon Dioxide 21 L BUN Creatinine 0.5 L Glucose POC Glucose Lactic Acid Calcium 8.0 L Phosphorus Magnesium Ferritin Lactate Dehydrogenase Total Creatine Kinase C-Reactive Protein Total Protein Albumin U Epithel Cells (Auto) Crossmatch 10/01/21 10/01/21 10/02/21 07:49 10:45 05:41 WBC 23.2 H RBC 2.90 L Hgb 7.9 L Hct 24.8 L MCH 27 L RDW 15.3 H Plt Count 621 H Ashley # (Auto) Seg Neutrophils % Seg Neuts % (Manual) 88.0 H Lymphocytes % (Manual) 2.0 L Monocytes % (Manual) Nucleated RBC % Seg Neutrophils # Seg Neutrophils # Man 20.4 H Lymphocytes # (Manual) 0.5 L Monocytes # (Manual) 1.4 H PT INR D-Dimer ABG pH ABG pO2 ABG HCO3 ABG O2 Saturation ABG Base Excess ABG Hemoglobin Oxyhemoglobin Sodium Potassium Chloride Carbon Dioxide 20 L BUN Creatinine 0.5 L Glucose POC Glucose Lactic Acid Calcium 7.6 L Phosphorus Magnesium Ferritin Lactate Dehydrogenase Total Creatine Kinase C-Reactive Protein Total Protein Albumin U Epithel Cells (Auto) Crossmatch See Detail 10/02/21 10/02/21 10/02/21 05:41 07:47 11:10 WBC RBC Hgb Hct MCH RDW Plt Count Ashley # (Auto) Seg Neutrophils % Seg Neuts % (Manual) Lymphocytes % (Manual) Monocytes % (Manual) Nucleated RBC % Seg Neutrophils # Seg Neutrophils # Man Lymphocytes # (Manual) Monocytes # (Manual) PT INR D-Dimer ABG pH ABG pO2 ABG HCO3 ABG O2 Saturation ABG Base Excess ABG Hemoglobin Oxyhemoglobin Sodium Potassium Chloride Carbon Dioxide BUN Creatinine Glucose 130 H POC Glucose 145 H 120 H Lactic Acid Calcium 6.9 L Phosphorus Magnesium Ferritin Lactate Dehydrogenase Total Creatine Kinase C-Reactive Protein Total Protein Albumin U Epithel Cells (Auto) Crossmatch 10/02/21 10/03/21 10/03/21 16:14 04:55 04:55 WBC 26.1 H RBC 2.31 L Hgb 6.3 L Hct 19.8 L* MCH RDW 15.9 H Plt Count 598 H Ashley # (Auto) Seg Neutrophils % Seg Neuts % (Manual) 82.0 H Lymphocytes % (Manual) 1.0 L Monocytes % (Manual) 10.0 H Nucleated RBC % Seg Neutrophils # Seg Neutrophils # Man 21.4 H Lymphocytes # (Manual) 0.3 L Monocytes # (Manual) 2.6 H PT INR D-Dimer ABG pH ABG pO2 ABG HCO3 ABG O2 Saturation ABG Base Excess ABG Hemoglobin Oxyhemoglobin Sodium Potassium Chloride Carbon Dioxide BUN 22 H Creatinine 1.7 H D Glucose 145 H POC Glucose 109 H Lactic Acid Calcium 6.4 L Phosphorus Magnesium 2.40 H Ferritin Lactate Dehydrogenase Total Creatine Kinase C-Reactive Protein Total Protein 4.2 L Albumin 1.6 L U Epithel Cells (Auto) Crossmatch 10/03/21 10/03/21 10/03/21 07:15 11:49 17:06 WBC RBC Hgb Hct MCH RDW Plt Count Ashley # (Auto) Seg Neutrophils % Seg Neuts % (Manual) Lymphocytes % (Manual) Monocytes % (Manual) Nucleated RBC % Seg Neutrophils # Seg Neutrophils # Man Lymphocytes # (Manual) Monocytes # (Manual) PT INR D-Dimer ABG pH ABG pO2 ABG HCO3 ABG O2 Saturation ABG Base Excess ABG Hemoglobin Oxyhemoglobin Sodium Potassium Chloride Carbon Dioxide BUN Creatinine Glucose POC Glucose 162 H 171 H 174 H Lactic Acid Calcium Phosphorus Magnesium Ferritin Lactate Dehydrogenase Total Creatine Kinase C-Reactive Protein Total Protein Albumin U Epithel Cells (Auto) Crossmatch 02/27/22 02/28/22 02/28/22 23:31 04:44 04:44 WBC 26.4 H RBC 2.33 L Hgb 6.6 L Hct 19.4 L* MCH RDW 16.1 H Plt Count 602 H Ashley # (Auto) Seg Neutrophils % Seg Neuts % (Manual) 80.0 H Lymphocytes % (Manual) 5.0 L Monocytes % (Manual) Nucleated RBC % Seg Neutrophils # Seg Neutrophils # Man 21.1 H Lymphocytes # (Manual) Monocytes # (Manual) 1.8 H PT INR D-Dimer ABG pH ABG pO2 ABG HCO3 ABG O2 Saturation ABG Base Excess ABG Hemoglobin Oxyhemoglobin Sodium 135 L Potassium 3.4 L Chloride Carbon Dioxide 21 L BUN 28 H Creatinine 2.0 H Glucose 171 H POC Glucose 179 H Lactic Acid Calcium 6.7 L Phosphorus 1.30 L D Magnesium 2.40 H Ferritin Lactate Dehydrogenase Total Creatine Kinase C-Reactive Protein Total Protein Albumin U Epithel Cells (Auto) Crossmatch 10/04/21 10/04/21 10/04/21 05:25 12:01 13:30 WBC RBC Hgb Hct MCH RDW Plt Count Ashley # (Auto) Seg Neutrophils % Seg Neuts % (Manual) Lymphocytes % (Manual) Monocytes % (Manual) Nucleated RBC % Seg Neutrophils # Seg Neutrophils # Man Lymphocytes # (Manual) Monocytes # (Manual) PT INR D-Dimer ABG pH ABG pO2 ABG HCO3 ABG O2 Saturation ABG Base Excess ABG Hemoglobin Oxyhemoglobin Sodium Potassium Chloride Carbon Dioxide BUN Creatinine Glucose POC Glucose 174 H 172 H Lactic Acid Calcium Phosphorus Magnesium Ferritin Lactate Dehydrogenase Total Creatine Kinase C-Reactive Protein Total Protein Albumin U Epithel Cells (Auto) Crossmatch See Detail 10/04/21 10/04/21 10/04/21 16:47 20:28 22:23 WBC RBC Hgb 8.5 L Hct 25.1 L MCH RDW Plt Count Ashley # (Auto) Seg Neutrophils % Seg Neuts % (Manual) Lymphocytes % (Manual) Monocytes % (Manual) Nucleated RBC % Seg Neutrophils # Seg Neutrophils # Man Lymphocytes # (Manual) Monocytes # (Manual) PT INR D-Dimer ABG pH ABG pO2 ABG HCO3 ABG O2 Saturation ABG Base Excess ABG Hemoglobin Oxyhemoglobin Sodium Potassium Chloride Carbon Dioxide BUN Creatinine Glucose POC Glucose 135 H 152 H Lactic Acid Calcium Phosphorus Magnesium Ferritin Lactate Dehydrogenase Total Creatine Kinase C-Reactive Protein Total Protein Albumin U Epithel Cells (Auto) Crossmatch 10/05/21 10/05/21 10/05/21 04:40 04:40 04:40 WBC 24.7 H RBC 3.02 L Hgb 8.4 L Hct 25.5 L MCH RDW 16.2 H Plt Count 644 H Ashley # (Auto) Seg Neutrophils % Seg Neuts % (Manual) 91.0 H Lymphocytes % (Manual) 7.0 L Monocytes % (Manual) Nucleated RBC % Seg Neutrophils # Seg Neutrophils # Man 22.5 H Lymphocytes # (Manual) Monocytes # (Manual) PT 17.8 H INR 1.31 H D-Dimer ABG pH ABG pO2 ABG HCO3 ABG O2 Saturation ABG Base Excess ABG Hemoglobin Oxyhemoglobin Sodium 135 L Potassium Chloride Carbon Dioxide BUN 29 H Creatinine 2.1 H Glucose 156 H POC Glucose Lactic Acid Calcium 7.6 L Phosphorus 1.90 L D Magnesium Ferritin Lactate Dehydrogenase Total Creatine Kinase C-Reactive Protein Total Protein 5.2 L D Albumin 1.8 L U Epithel Cells (Auto) Crossmatch 10/05/21 10/05/21 10/05/21 05:08 18:17 23:37 WBC RBC Hgb Hct MCH RDW Plt Count Ashley # (Auto) Seg Neutrophils % Seg Neuts % (Manual) Lymphocytes % (Manual) Monocytes % (Manual) Nucleated RBC % Seg Neutrophils # Seg Neutrophils # Man Lymphocytes # (Manual) Monocytes # (Manual) PT INR D-Dimer ABG pH ABG pO2 ABG HCO3 ABG O2 Saturation ABG Base Excess ABG Hemoglobin Oxyhemoglobin Sodium Potassium Chloride Carbon Dioxide BUN Creatinine Glucose POC Glucose 156 H 119 H 130 H Lactic Acid Calcium Phosphorus Magnesium Ferritin Lactate Dehydrogenase Total Creatine Kinase C-Reactive Protein Total Protein Albumin U Epithel Cells (Auto) Crossmatch 10/06/21 10/06/21 10/06/21 04:27 05:27 05:27 WBC 23.4 H RBC 2.84 L Hgb 7.8 L Hct 23.9 L MCH RDW 16.2 H Plt Count 712 H Ashley # (Auto) Seg Neutrophils % Seg Neuts % (Manual) Lymphocytes % (Manual) Monocytes % (Manual) Nucleated RBC % Seg Neutrophils # Seg Neutrophils # Man Lymphocytes # (Manual) Monocytes # (Manual) PT INR D-Dimer ABG pH ABG pO2 ABG HCO3 ABG O2 Saturation ABG Base Excess ABG Hemoglobin Oxyhemoglobin Sodium 134 L Potassium Chloride Carbon Dioxide 20 L BUN 28 H Creatinine 1.9 H Glucose 132 H POC Glucose 132 H Lactic Acid Calcium 7.8 L Phosphorus Magnesium Ferritin Lactate Dehydrogenase Total Creatine Kinase 242 H C-Reactive Protein Total Protein Albumin U Epithel Cells (Auto) Crossmatch 10/06/21 10/06/21 10/06/21 16:40 20:50 23:39 WBC RBC Hgb Hct MCH RDW Plt Count Ashley # (Auto) Seg Neutrophils % Seg Neuts % (Manual) Lymphocytes % (Manual) Monocytes % (Manual) Nucleated RBC % Seg Neutrophils # Seg Neutrophils # Man Lymphocytes # (Manual) Monocytes # (Manual) PT INR D-Dimer ABG pH ABG pO2 ABG HCO3 ABG O2 Saturation ABG Base Excess ABG Hemoglobin Oxyhemoglobin Sodium Potassium Chloride Carbon Dioxide BUN Creatinine Glucose POC Glucose 133 H 116 H 132 H Lactic Acid Calcium Phosphorus Magnesium Ferritin Lactate Dehydrogenase Total Creatine Kinase C-Reactive Protein Total Protein Albumin U Epithel Cells (Auto) Crossmatch 10/07/21 10/07/21 10/07/21 05:09 05:13 09:43 WBC 22.3 H RBC 2.81 L Hgb 7.8 L Hct 24.0 L MCH RDW 16.5 H Plt Count 733 H Ashley # (Auto) Seg Neutrophils % Seg Neuts % (Manual) 85.0 H Lymphocytes % (Manual) 1.0 L Monocytes % (Manual) Nucleated RBC % Seg Neutrophils # Seg Neutrophils # Man 19.0 H Lymphocytes # (Manual) 0.2 L Monocytes # (Manual) 1.6 H PT INR D-Dimer ABG pH ABG pO2 ABG HCO3 ABG O2 Saturation ABG Base Excess ABG Hemoglobin Oxyhemoglobin Sodium 136 L Potassium Chloride Carbon Dioxide 20 L BUN 29 H Creatinine 1.9 H Glucose 140 H POC Glucose 139 H Lactic Acid Calcium 7.6 L Phosphorus Magnesium Ferritin Lactate Dehydrogenase Total Creatine Kinase C-Reactive Protein Total Protein Albumin U Epithel Cells (Auto) Crossmatch 10/07/21 10/07/21 10/08/21 11:38 17:44 00:20 WBC RBC Hgb Hct MCH RDW Plt Count Ashley # (Auto) Seg Neutrophils % Seg Neuts % (Manual) Lymphocytes % (Manual) Monocytes % (Manual) Nucleated RBC % Seg Neutrophils # Seg Neutrophils # Man Lymphocytes # (Manual) Monocytes # (Manual) PT INR D-Dimer ABG pH ABG pO2 ABG HCO3 ABG O2 Saturation ABG Base Excess ABG Hemoglobin Oxyhemoglobin Sodium Potassium Chloride Carbon Dioxide BUN Creatinine Glucose POC Glucose 126 H 113 H 129 H Lactic Acid Calcium Phosphorus Magnesium Ferritin Lactate Dehydrogenase Total Creatine Kinase C-Reactive Protein Total Protein Albumin U Epithel Cells (Auto) Crossmatch 10/08/21 10/08/21 10/08/21 05:26 05:26 05:29 WBC 21.8 H RBC 2.84 L Hgb 7.8 L Hct 24.1 L MCH 27 L RDW 16.5 H Plt Count 789 H Ashley # (Auto) Seg Neutrophils % Seg Neuts % (Manual) Lymphocytes % (Manual) Monocytes % (Manual) Nucleated RBC % Seg Neutrophils # Seg Neutrophils # Man Lymphocytes # (Manual) Monocytes # (Manual) PT INR D-Dimer ABG pH ABG pO2 ABG HCO3 ABG O2 Saturation ABG Base Excess ABG Hemoglobin Oxyhemoglobin Sodium 136 L Potassium Chloride Carbon Dioxide 20 L BUN 31 H Creatinine 1.7 H Glucose 134 H POC Glucose 123 H Lactic Acid Calcium 7.9 L Phosphorus 4.60 H D Magnesium Ferritin Lactate Dehydrogenase Total Creatine Kinase C-Reactive Protein Total Protein Albumin U Epithel Cells (Auto) Crossmatch 10/08/21 10/08/21 10/08/21 11:53 17:07 20:08 WBC RBC Hgb Hct MCH RDW Plt Count Ashley # (Auto) Seg Neutrophils % Seg Neuts % (Manual) Lymphocytes % (Manual) Monocytes % (Manual) Nucleated RBC % Seg Neutrophils # Seg Neutrophils # Man Lymphocytes # (Manual) Monocytes # (Manual) PT INR D-Dimer ABG pH 7.308 L ABG pO2 40.2 L ABG HCO3 15.7 L ABG O2 Saturation 68 L ABG Base Excess -9.6 L ABG Hemoglobin 9.7 L Oxyhemoglobin 67.8 L Sodium Potassium Chloride Carbon Dioxide BUN Creatinine Glucose POC Glucose 128 H 139 H Lactic Acid Calcium Phosphorus Magnesium Ferritin Lactate Dehydrogenase Total Creatine Kinase C-Reactive Protein Total Protein Albumin U Epithel Cells (Auto) Crossmatch 10/08/21 10/08/21 10/08/21 21:30 22:55 22:55 WBC RBC Hgb Hct MCH RDW Plt Count Ashley # (Auto) Seg Neutrophils % Seg Neuts % (Manual) Lymphocytes % (Manual) Monocytes % (Manual) Nucleated RBC % Seg Neutrophils # Seg Neutrophils # Man Lymphocytes # (Manual) Monocytes # (Manual) PT INR D-Dimer ABG pH ABG pO2 43.8 L ABG HCO3 19.5 L ABG O2 Saturation 70.7 L ABG Base Excess -5.3 L ABG Hemoglobin 8.6 L Oxyhemoglobin 69.4 L Sodium Potassium Chloride Carbon Dioxide BUN Creatinine Glucose POC Glucose Lactic Acid 2.50 H* Calcium Phosphorus Magnesium Ferritin Lactate Dehydrogenase Total Creatine Kinase C-Reactive Protein Total Protein Albumin U Epithel Cells (Auto) Crossmatch See Detail 10/09/21 10/09/21 10/09/21 03:12 05:31 05:31 WBC 20.3 H RBC 2.70 L Hgb 7.4 L Hct 23.1 L MCH 27 L RDW 16.6 H Plt Count 786 H Ashley # (Auto) Seg Neutrophils % Seg Neuts % (Manual) 88.0 H Lymphocytes % (Manual) 3.0 L Monocytes % (Manual) Nucleated RBC % Seg Neutrophils # Seg Neutrophils # Man 17.9 H Lymphocytes # (Manual) 0.6 L Monocytes # (Manual) 1.2 H PT INR D-Dimer ABG pH ABG pO2 ABG HCO3 ABG O2 Saturation ABG Base Excess ABG Hemoglobin Oxyhemoglobin Sodium 136 L Potassium Chloride Carbon Dioxide 20 L BUN 32 H Creatinine 1.5 H Glucose 214 H POC Glucose 190 H Lactic Acid Calcium 7.5 L Phosphorus Magnesium Ferritin Lactate Dehydrogenase Total Creatine Kinase C-Reactive Protein Total Protein 5.8 L Albumin 2.3 L U Epithel Cells (Auto) Crossmatch 10/09/21 10/09/21 10/09/21 05:31 05:31 05:31 WBC RBC Hgb Hct MCH RDW Plt Count Ashley # (Auto) Seg Neutrophils % Seg Neuts % (Manual) Lymphocytes % (Manual) Monocytes % (Manual) Nucleated RBC % Seg Neutrophils # Seg Neutrophils # Man Lymphocytes # (Manual) Monocytes # (Manual) PT INR D-Dimer ABG pH ABG pO2 ABG HCO3 ABG O2 Saturation ABG Base Excess ABG Hemoglobin Oxyhemoglobin Sodium Potassium Chloride Carbon Dioxide BUN Creatinine Glucose POC Glucose Lactic Acid 2.20 H* Calcium Phosphorus Magnesium Ferritin 751.9 H Lactate Dehydrogenase Total Creatine Kinase C-Reactive Protein 15.90 H Total Protein Albumin U Epithel Cells (Auto) Crossmatch 10/09/21 10/09/21 10/09/21 05:31 08:45 12:08 WBC RBC Hgb Hct MCH RDW Plt Count Ashley # (Auto) Seg Neutrophils % Seg Neuts % (Manual) Lymphocytes % (Manual) Monocytes % (Manual) Nucleated RBC % Seg Neutrophils # Seg Neutrophils # Man Lymphocytes # (Manual) Monocytes # (Manual) PT INR D-Dimer > 18331 H ABG pH ABG pO2 54.3 L ABG HCO3 ABG O2 Saturation 86.6 L ABG Base Excess -2.6 L ABG Hemoglobin 7.2 L Oxyhemoglobin 85.3 L Sodium Potassium Chloride Carbon Dioxide BUN Creatinine Glucose POC Glucose Lactic Acid Calcium Phosphorus Magnesium Ferritin Lactate Dehydrogenase 472 H Total Creatine Kinase C-Reactive Protein Total Protein Albumin U Epithel Cells (Auto) Crossmatch 10/09/21 10/09/21 10/10/21 12:19 17:43 00:30 WBC RBC Hgb Hct MCH RDW Plt Count Ashley # (Auto) Seg Neutrophils % Seg Neuts % (Manual) Lymphocytes % (Manual) Monocytes % (Manual) Nucleated RBC % Seg Neutrophils # Seg Neutrophils # Man Lymphocytes # (Manual) Monocytes # (Manual) PT INR D-Dimer ABG pH ABG pO2 ABG HCO3 ABG O2 Saturation ABG Base Excess ABG Hemoglobin Oxyhemoglobin Sodium Potassium Chloride Carbon Dioxide BUN Creatinine Glucose POC Glucose 151 H 136 H 132 H Lactic Acid Calcium Phosphorus Magnesium Ferritin Lactate Dehydrogenase Total Creatine Kinase C-Reactive Protein Total Protein Albumin U Epithel Cells (Auto) Crossmatch 10/10/21 10/10/21 10/10/21 04:10 04:10 05:41 WBC 20.8 H RBC 2.54 L Hgb 7.1 L Hct 21.8 L MCH RDW 16.6 H Plt Count 740 H Ashley # (Auto) Seg Neutrophils % Seg Neuts % (Manual) Lymphocytes % (Manual) Monocytes % (Manual) Nucleated RBC % Seg Neutrophils # Seg Neutrophils # Man Lymphocytes # (Manual) Monocytes # (Manual) PT INR D-Dimer ABG pH ABG pO2 ABG HCO3 ABG O2 Saturation ABG Base Excess ABG Hemoglobin Oxyhemoglobin Sodium 130 L Potassium Chloride 97.9 L Carbon Dioxide 19 L BUN 37 H Creatinine 1.4 H Glucose 181 H POC Glucose 150 H Lactic Acid Calcium 7.8 L Phosphorus Magnesium Ferritin Lactate Dehydrogenase Total Creatine Kinase C-Reactive Protein Total Protein Albumin U Epithel Cells (Auto) Crossmatch 10/10/21 10/10/21 10/10/21 11:10 16:00 23:50 WBC RBC Hgb Hct MCH RDW Plt Count Ashley # (Auto) Seg Neutrophils % Seg Neuts % (Manual) Lymphocytes % (Manual) Monocytes % (Manual) Nucleated RBC % Seg Neutrophils # Seg Neutrophils # Man Lymphocytes # (Manual) Monocytes # (Manual) PT INR D-Dimer ABG pH ABG pO2 ABG HCO3 ABG O2 Saturation ABG Base Excess ABG Hemoglobin Oxyhemoglobin Sodium Potassium Chloride Carbon Dioxide BUN Creatinine Glucose POC Glucose 136 H 151 H 129 H Lactic Acid Calcium Phosphorus Magnesium Ferritin Lactate Dehydrogenase Total Creatine Kinase C-Reactive Protein Total Protein Albumin U Epithel Cells (Auto) Crossmatch 10/10/21 10/11/21 10/11/21 Unknown 03:30 03:30 WBC 23.2 H RBC 2.39 L Hgb 6.7 L Hct 20.3 L MCH RDW 16.7 H Plt Count 701 H Ashley # (Auto) Seg Neutrophils % Seg Neuts % (Manual) Lymphocytes % (Manual) Monocytes % (Manual) Nucleated RBC % Seg Neutrophils # Seg Neutrophils # Man Lymphocytes # (Manual) Monocytes # (Manual) PT INR D-Dimer ABG pH 7.505 H ABG pO2 246.1 H ABG HCO3 ABG O2 Saturation 99.4 H ABG Base Excess ABG Hemoglobin 6.0 L Oxyhemoglobin Sodium 135 L Potassium Chloride Carbon Dioxide 20 L BUN 38 H Creatinine 1.6 H Glucose 118 H POC Glucose Lactic Acid Calcium 7.9 L Phosphorus Magnesium Ferritin Lactate Dehydrogenase Total Creatine Kinase C-Reactive Protein Total Protein Albumin U Epithel Cells (Auto) Crossmatch 10/11/21 11:41 WBC RBC Hgb Hct MCH RDW Plt Count Ashley # (Auto) Seg Neutrophils % Seg Neuts % (Manual) Lymphocytes % (Manual) Monocytes % (Manual) Nucleated RBC % Seg Neutrophils # Seg Neutrophils # Man Lymphocytes # (Manual) Monocytes # (Manual) PT INR D-Dimer ABG pH ABG pO2 ABG HCO3 ABG O2 Saturation ABG Base Excess ABG Hemoglobin Oxyhemoglobin Sodium Potassium Chloride Carbon Dioxide BUN Creatinine Glucose POC Glucose 128 H Lactic Acid Calcium Phosphorus Magnesium Ferritin Lactate Dehydrogenase Total Creatine Kinase C-Reactive Protein Total Protein Albumin U Epithel Cells (Auto) Crossmatch Chest x-ray: pending (none today) Allied health notes reviewed: nursing
--- NOTE | 2021-10-11 12:44 | Vascular Lab Report ---
DUPLEX DOPPLER LOWER EXTREMITY VEINS, BILATERAL INDICATION / CLINICAL INFORMATION: R/o DVT. TECHNIQUE: Duplex doppler imaging was performed through the veins of both lower extremities using max ous compression and other maneuvers. COMPARISON: None available. FINDINGS: RIGHT COMMON FEMORAL VEIN: Negative. RIGHT FEMORAL VEIN: Negative. RIGHT POPLITEAL VEIN: Negative. RIGHT CALF VEINS: Negative. LEFT COMMON FEMORAL VEIN: Negative. LEFT FEMORAL VEIN: Negative. LEFT POPLITEAL VEIN: Negative. LEFT CALF VEINS: Negative. ADDITIONAL FINDINGS: Bilateral subcutaneous edema in the lower extremities is nonspecific. IMPRESSION: 1. No sonographic evidence for DVT in either lower extremity. 2. Bilateral subcutaneous edema in the lower extremities is nonspecific. Signer Name: Mac Maharaj MD Signed: 10/11/2021 12:40 PM Workstation Name: [email or web address]
[2021-10-11] MEDS ORDERED: SODIUM CHLORIDE 0.9% 500 ML 500 ML ONE (13:06)
--- NOTE | 2021-10-11 13:30 | Progress Note ---
Assessment and Plan Cultures: Blood culture no growth so far Wound culture VRE A/P: 31-year-old female past medical history obesity, nephrolithiasis now with: #Acute sepsis: Present with leukocytosis and tachycardia. Secondary to intra- abdominal infection #Acute hypoxic resp failure: fluid overload more likely, but possible pneumonia. #Pericolonic abscesses with appendiceal rupture and fistulization: Status post washout of abscesses, cultures now with VRE. #BRYANNA: Renally dose medications #Obesity Recs: -Changed to linezolid due to poor response/possible pneumonia. -Continue metronidazole. -Pending CT drainage of air pocket. If any pus seen would send for culture. -Agree with addition of cefepime given hypoxic respiratory failure, though that may be secondary to volume overload. Thank you for the consult, we will continue to follow. Josefina Perry MD [facility] ([facility]) O: [phone] F: [phone] Subjective Date of service: 10/11/21 Principal diagnosis: BRYANNA Interval history: Afebrile, white count remains elevated at 23.2. She is now in the ICU. She is now intubated and sedated. Imaging personally reviewed: Chest CTA: Diffuse pulmonary opacities, anasarca CT of the pelvis inflammatory changes in the left mid and lower abdomen collection of air in the left mid abdomen. Chest x-ray: Lungs clear Objective - Exam Narrative Exam: Physical Exam: Constitutional: Alert, cooperative. No acute distress Head, Ears, Nose: Normocephalic, atraumatic. External ears, nose normal Eyes: Conjunctivae/corneas clear. No icterus. No ptosis. Neck: Supple, no meningeal signs Oral: dentition fair, no thrush Cardiovascular: S1, S2 normal. Respiratory: Good air entry, clear to auscultation bilaterally GI: Appropriately tender postoperatively, YURIDIA drain in place Musculoskeletal: No pedal edema, no cyanosis. Skin: No rash or abscess Hem/Lymphatic: No palpable cervical or supraclavicular nodes. No lymphangitis Psych: Mood ok. Affect normal Neurological: Awake, alert, oriented. No gross abnormality - Constitutional Vitals: Vital Signs Temp Pulse Resp BP Pulse Ox 98.7 F 67 22 137/81 98 10/11/21 11:59 10/11/21 11:58 10/11/21 11:58 10/11/21 11:58 10/11/21 11:58 Temperature -Last 24 Hours Temperature 98.7 F Temperature 98.7 F Temperature 98.7 F Temperature 98.7 F Temperature 97.8 F Temperature 98.8 F Temperature 99 F Temperature 98.8 F Temperature 99.1 F Temperature 97.8 F Temperature 98.5 F Temperature 98.3 F - Labs CBC & Chem 7: 10/11/21 03:30 10/11/21 03:30 Labs: Abnormal lab results 10/08/21 10/10/21 10/10/21 Range/Units 22:55 16:00 23:50 WBC (4.5-11.0) K/mm3 RBC (3.65-5.03) M/mm3 Hgb (10.1-14.3) gm/dl Hct (30.3-42.9) % RDW (13.2-15.2) % Plt Count (140-440) K/mm3 Sodium (137-145) mmol/L Carbon Dioxide (22-30) mmol/L BUN (7-17) mg/dL Creatinine (0.6-1.2) mg/dL Glucose (65-100) mg/dL POC Glucose 151 H 129 H (70-105) mg/dL Calcium (8.4-10.2) mg/dL Crossmatch See Detail 10/11/21 10/11/21 10/11/21 Range/Units 03:30 03:30 11:41 WBC 23.2 H (4.5-11.0) K/mm3 RBC 2.39 L (3.65-5.03) M/mm3 Hgb 6.7 L (10.1-14.3) gm/dl Hct 20.3 L (30.3-42.9) % RDW 16.7 H (13.2-15.2) % Plt Count 701 H (140-440) K/mm3 Sodium 135 L (137-145) mmol/L Carbon Dioxide 20 L (22-30) mmol/L BUN 38 H (7-17) mg/dL Creatinine 1.6 H (0.6-1.2) mg/dL Glucose 118 H (65-100) mg/dL POC Glucose 128 H (70-105) mg/dL Calcium 7.9 L (8.4-10.2) mg/dL Crossmatch
--- NOTE | 2021-10-11 13:41 | Cat Scan Report ---
CT ABDOMEN AND PELVIS WITHOUT CONTRAST HISTORY: reassess air/fluid collection. COMPARISON: 10/09/2021 TECHNIQUE: Helical CT images of the abdomen and pelvis were obtained without administration of intrav enous contrast. Sagittal and coronal reformatted images were reviewed. All CT scans at this location are performed using CT dose reduction for ALARA by means of automated exposure control. FINDINGS: Abdomen/pelvis: Oral contrast is present in the colon. There is a large amount of oral contrast extr avasation into a left lower quadrant collection measuring up to 8.6 x 7.0 cm. Contrast also tracks po steriorly and laterally to the left flank region. There appears to be dehiscence of the suture line i n the sigmoid colon. The remaining bowel loops are grossly unremarkable. Surgical drain terminating i n the left lower quadrant is unchanged. The liver, biliary system, pancreas, kidneys and left adrenal gland are unremarkable. Low density 3.6 cm right adrenal lesion is unchanged. The bladder is decompressed with a Doss catheter. The vascula r structures are unremarkable. Lungs/bones: Bibasilar infiltrates and small pleural effusions have decreased significantly. Heart s ize is normal. The bony structures are intact. IMPRESSION: There is a large amount of contrast extravasation from the colon into the left lower quadrant and lef t flank soft tissues. This appears to be secondary to dehiscence of surgical suture lines in the sigm oid colon region. Improvement in the bibasilar consolidations and pleural effusions. Signer Name: Jon Ferguson Jr, MD Signed: 10/11/2021 1:37 PM Workstation Name: [id number]
[2021-10-11] MEDS ORDERED: MIDAZOLAM 5 MG/5 ML INJ MDV IV ONE (14:00)
[2021-10-11] MEDS ORDERED: fentaNYL 100 MCG/2 ML INJ IV ONE (14:00)
--- NOTE | 2021-10-11 14:27 | Progress Note ---
<FRANCISCO BOURGEOIS - Last Filed: 10/11/21 16:06> Assessment and Plan Assessment and plan: This is a 31-year-old female with obesity and nephrolithiasis admitted with pericolonic abscess secondary to contained perforated diverticulitis, peritonitis complicated by acute blood loss anemia, acute kidney injury and acute hypoxic respiratory failure. Neuro: Sedated -Sedated with propofol and fentanyl -RASS goal 0 to -1 -Avoid delirium -Reorientation as needed -Maintain sleep-wake cycle -Daily SAT as appropriate -Bilateral soft restraints in place for patient safety Cardiac: NAD -Cardiology consulted, appreciate recommendations -Blood pressure monitoring per protocol -s/p pressor support with Levophed and vasopressin -MAP goal greater than 65 -Echocardiogram shows normal right ventricular function, LVEF 55 to 60% Respiratory: Acute hypoxic respiratory failure -[facility] consulted, appreciate recommendations -Intubated s/p code met on 10/08 with 7.50 ETT at 24 the lips -A.m. vent settings: Assist-control rate 22, tidal line 425, PEEP 8, FiO2 35% -See RT notes for titration -A.m. 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, diverticulitis with abscess, moderate protein calorie malnutrition, h/o obesity -Surgery consulted, appreciate recommendations -S/p washout of pericolonic abscess on 09/26/2021 -S/p open left hemicolectomy, appendectomy and partial omentectomy on 10/01 -10/09 CT abdomen/pelvis showed a new collection of air within the left midabdomen -Scheduled for CT guided drain placement with IR -IR findings: Fluid collections abutting the colonic anastamosis and drain passed into the colon originally requiring retraction into the fluid collection, left mild to moderate hydronephrosis, 700 ml brown serous fluid from the mid abdominal drain (drain #1), 200 mL brown thick fluid from the left lateral drain (drain #2) -Per surgery: Patient's drain will be high output, will like to transfuse patient 2 units PRBC and create an ileostomy to divert anastomotic leak as early as tomorrow -24 hours: -708 mL -PPI -TPN -NGT to LIS : Acute kidney injury secondary to vasomotor nephropathy versus contrast induced, hyponatremia, metabolic acidosis -Nephrology consulted, appreciate recommendations -Strict intake and output -Renally dose medications -Avoid nephrotoxic medications -Daily weights -Currently on IV Lasix nephrology -Trend BMP ID: Acute sepsis secondary to pericolonic abscess with appendiceal rupture fistulization, peritonitis, VRE in wound culture -Infectious disease consulted, appreciate recommendations -COVID 19 PCR negative -S/p drain placement and diagnostic laparotomy on 09/26 -Antibiotic therapy with linezolid, Flagyl and cefepime -f/u blood culture -Monitor WBC and temperature curve Endo: NAD -Avoid hypoglycemia -SSI -Accu-Cheks q6 -Long-acting insulin, titrate as needed Heme: Acute blood loss anemia, elevated D-dimer, gross hematuria (resolved), leukocytosis, thrombocytosis -Patient had hematuria after ureteral injury sustained from surgical procedures -Urology consulted, appreciate recommendation -10/09 CTA chest with no evidence of PE. Findings suggesting multifocal pneumonia vs pulmonary edema -Bilateral lower extremity Doppler ultrasound shows no sonographic evidence of DVT however shows subcutaneous edema in lower extremities -Trend CBC -Transfuse hemoglobin less than 7 -S/p 3 units PRBC -H/H 6.7/20.3 today -We will transfuse 1 unit PRBC -Monitor for signs of bleeding -SCDs to BLE while in bed -Heparin subq The high probability of a clinically significant, sudden or life threatening deterioration of the [multi] system(s) required my full and direct attention, intervention and personal management. The aggregate critical care time was [60] minutes. This time is in addition to time spent performing reported procedures but includes the following: [x] Data Review and interpretation [x] Patient assessment and monitoring of vital signs [x] Documentation [x] Medication orders and management Disposition Plan: icu Total Time Spent with Patient (Minutes): 60 History Interval history: This is a 31-year-old female with obesity and nephrolithiasis admitted with complaints of abdominal pain, lower back pain, nausea no with episodes of vomiting over the past dayon 09/24. Patient underwent a CT scan of the abdomen and pelvis and was found to have acute diverticulitis complicated by sepsis and was admitted to the medical floor initiated sepsis protocol. Surgery team was consulted in the emergency department. ICU Course to Date: 10/09: Intubated and sedated, RASS -1 to -2. Recent CXR noted with worsen bilateral opacities with persistent leukocytosis, elevated lactic, and now on 2 pressors. Patient remains afebrile, and already on IV Abx per ID. Will swab patient for COVID. Given recent surgery orders placed for CTA chest, CT Abd/plevis. And also BLE dopplers due to elevated D-Dimer. Renal function is improving, additional IVF to flush out kidney post contrast, Nephrology is also following. Continue TPN and NGT to LIS. 10/10: COVID PCR negative. CTA chest and Abd/plevis noted. No evidence of PE. Patient received X1 dose of 20mg IV lasix per Nephro for pulmonary edema, this am CXR with some improvement, renal function is also improving. Wean vent setting as tolerated per CCM. Plan for possible CT guided drainage placement in IR tomorrow. Continue TPN and NGT to LIS. 10/11: Patient with anemia, 1 unit PRBC, scheduled for CT-guided drain image of air pocket. Will place on CPAP on return. Slightly worsening renal function but nephrology is on the case. Hospitalist Physical - Constitutional Vitals: Temp Pulse Resp BP Pulse Ox 98.7 F 67 22 137/81 98 10/11/21 11:59 10/11/21 11:58 10/11/21 11:58 10/11/21 11:58 10/11/21 11:58 General appearance: Present: no acute distress, well-nourished, obese, other (Intubated and Sedated) - EENT Eyes: Present: PERRL, EOM intact ENT: clear oral mucosa - Neck Neck: Present: normal ROM - Respiratory Respiratory effort: normal Respiratory: bilateral: CTA - Cardiovascular Rhythm: regular Heart Sounds: Present: S1 & S2. Absent: systolic murmur, diastolic murmur - Extremities Extremities: no ischemia, pulses intact, pulses symmetrical, No edema, normal temperature, normal color Peripheral Pulses: within normal limits - Abdominal General gastrointestinal: soft, non-tender, non-distended, normal bowel sounds - Integumentary Integumentary: Present: warm, dry - Psychiatric Psychiatric: cooperative - Neurologic Neurologic: CNII-XII intact, no focal deficits, moves all extremities - Allied Health Allied health notes reviewed: nursing, RT, social work Results - Labs CBC & Chem 7: 10/11/21 03:30 10/11/21 03:30 Labs: Laboratory Last Values WBC 23.2 K/mm3 (4.5-11.0) H 10/11/21 03:30 RBC 2.39 M/mm3 (3.65-5.03) L 10/11/21 03:30 Hgb 6.7 gm/dl (10.1-14.3) L 10/11/21 03:30 Hct 20.3 % (30.3-42.9) L 10/11/21 03:30 MCV 85 fl (79-97) 10/11/21 03:30 MCH 28 pg (28-32) 10/11/21 03:30 MCHC 33 % (30-34) 10/11/21 03:30 RDW 16.7 % (13.2-15.2) H 10/11/21 03:30 Plt Count 701 K/mm3 (140-440) H 10/11/21 03:30 [place] % (Auto) 5.9 % (0.0-7.3) 09/28/21 04:55 Eos % (Auto) 0.4 % (0.0-4.3) 09/28/21 04:55 [place] # (Auto) 0.9 K/mm3 (0.0-0.8) H 09/28/21 04:55 Eos # (Auto) 0.1 K/mm3 (0.0-0.4) 09/28/21 04:55 Baso # (Auto) 0.0 K/mm3 (0.0-0.1) 09/28/21 04:55 Add Manual Diff Complete 10/09/21 05:31 Total Counted 100 10/09/21 05:31 Seg Neutrophils % Appliance Technician 10/03/21 04:55 Seg Neuts % (Manual) 88.0 % (40.0-70.0) H 10/09/21 05:31 Band Neutrophils % 0 % 10/09/21 05:31 Lymphocytes % (Manual) 3.0 % (13.4-35.0) L 10/09/21 05:31 Reactive Lymphs % (Man) 1.0 % 10/09/21 05:31 Monocytes % (Manual) 6.0 % (0.0-7.3) 10/09/21 05:31 Eosinophils % (Manual) 2.0 % (0.0-4.3) 10/09/21 05:31 Basophils % (Manual) 0 % (0.0-1.8) 10/09/21 05:31 Metamyelocytes % 0 % 10/09/21 05:31 Myelocytes % 0 % 10/09/21 05:31 Promyelocytes % 0 % 10/09/21 05:31 Blast Cells % 0 % 10/09/21 05:31 Nucleated RBC % Not Reportable 10/09/21 05:31 Seg Neutrophils # 14.0 K/mm3 (1.8-7.7) H 09/28/21 04:55 Seg Neutrophils # Man 17.9 K/mm3 (1.8-7.7) H 10/09/21 05:31 Band Neutrophils # 0.0 K/mm3 10/09/21 05:31 Lymphocytes # (Manual) 0.6 K/mm3 (1.2-5.4) L 10/09/21 05:31 Abs React Lymphs (Man) 0.2 K/mm3 10/09/21 05:31 Monocytes # (Manual) 1.2 K/mm3 (0.0-0.8) H 10/09/21 05:31 Eosinophils # (Manual) 0.4 K/mm3 (0.0-0.4) 10/09/21 05:31 Basophils # (Manual) 0.0 K/mm3 (0.0-0.1) 10/09/21 05:31 Metamyelocytes # 0.0 K/mm3 10/09/21 05:31 Myelocytes # 0.0 K/mm3 10/09/21 05:31 Promyelocytes # 0.0 K/mm3 10/09/21 05:31 Blast Cells # 0.0 K/mm3 10/09/21 05:31 Pathologist Review 09/24/21 14:58 WBC Morphology Not Reportable 10/09/21 05:31 Hypersegmented Neuts Not Reportable 10/09/21 05:31 Hyposegmented Neuts Not Reportable 10/09/21 05:31 Hypogranular Neuts Not Reportable 10/09/21 05:31 Smudge Cells Not Reportable 10/09/21 05:31 Toxic Granulation Not Reportable 10/09/21 05:31 Toxic Vacuolation Not Reportable 10/09/21 05:31 Dohle Bodies Not Reportable 10/09/21 05:31 Pelger-Huet Anomaly Not Reportable 10/09/21 05:31 Marlene Rods Not Reportable 10/09/21 05:31 Platelet Estimate Consistent w auto 10/09/21 05:31 Clumped Platelets Not Reportable 10/09/21 05:31 Plt Clumps, EDTA Not Reportable 10/09/21 05:31 Large Platelets Not Reportable 10/09/21 05:31 Giant Platelets Not Reportable 10/09/21 05:31 Platelet Satelliting Not Reportable 10/09/21 05:31 Plt Morphology Comment Not Reportable 10/09/21 05:31 RBC Morphology Not Reportable 10/09/21 05:31 Dimorphic RBCs Not Reportable 10/09/21 05:31 Polychromasia Not Reportable 10/09/21 05:31 Hypochromasia Not Reportable 10/09/21 05:31 Poikilocytosis Not Reportable 10/09/21 05:31 Anisocytosis 1+ 10/09/21 05:31 Microcytosis Not Reportable 10/09/21 05:31 Macrocytosis Not Reportable 10/09/21 05:31 Spherocytes Not Reportable 10/09/21 05:31 Pappenheimer Bodies Not Reportable 10/09/21 05:31 Sickle Cells Not Reportable 10/09/21 05:31 Target Cells Not Reportable 10/09/21 05:31 Tear Drop Cells Not Reportable 10/09/21 05:31 Ovalocytes Not Reportable 10/09/21 05:31 Helmet Cells Not Reportable 10/09/21 05:31 [place] Bodies Not Reportable 10/09/21 05:31 [place] Rings Not Reportable 10/09/21 05:31 [place] Cells Not Reportable 10/09/21 05:31 Bite Cells Not Reportable 10/09/21 05:31 Crenated Cell Not Reportable 10/09/21 05:31 Elliptocytes Not Reportable 10/09/21 05:31 Acanthocytes (Spur) Not Reportable 10/09/21 05:31 Rouleaux Not Reportable 10/09/21 05:31 Hemoglobin C Crystals Not Reportable 10/09/21 05:31 Schistocytes Not Reportable 10/09/21 05:31 Malaria parasites Not Reportable 10/09/21 05:31 Flaco Bodies Not Reportable 10/09/21 05:31 Hem Pathologist Commnt No 10/09/21 05:31 PT 17.8 Sec. (12.2-14.9) H 10/05/21 04:40 INR 1.31 (0.87-1.13) H 10/05/21 04:40 D-Dimer > 09804 ng/mlDDU (0-234) H 10/09/21 08:45 ABG pH 7.505 pH Units (7.350-7.450) H 10/10/21 Unknown ABG pCO2 27.6 mm Hg 10/10/21 Unknown ABG pO2 246.1 mm Hg (80.0-90.0) H 10/10/21 Unknown ABG HCO3 21.3 mmol/L (20.0-26.0) 10/10/21 Unknown ABG O2 Saturation 99.4 % (95.0-99.0) H 10/10/21 Unknown ABG O2 Content 8.9 (0.0-44) 10/10/21 Unknown ABG Base Excess -1.7 mmol/L (-2.0-3.0) 10/10/21 Unknown ABG Hemoglobin 6.0 gm/dl (12.0-16.0) L 10/10/21 Unknown ABG Carboxyhemoglobin 1.1 % (0.0-5.0) 10/10/21 Unknown ABG Methemoglobin 0.5 % (0.0-1.5) 10/10/21 Unknown Oxyhemoglobin 97.9 % (95.0-99.0) 10/10/21 Unknown FiO2 60 % 10/10/21 Unknown Sodium 135 mmol/L (137-145) L 10/11/21 03:30 Potassium 4.3 mmol/L (3.6-5.0) 10/11/21 03:30 Chloride 100.3 mmol/L (98-107) 10/11/21 03:30 Carbon Dioxide 20 mmol/L (22-30) L 10/11/21 03:30 Anion Gap 19 mmol/L 10/11/21 03:30 BUN 38 mg/dL (7-17) H 10/11/21 03:30 Creatinine 1.6 mg/dL (0.6-1.2) H 10/11/21 03:30 Estimated GFR 45 ml/min 10/11/21 03:30 BUN/Creatinine Ratio 24 % 10/11/21 03:30 Glucose 118 mg/dL (65-100) H 10/11/21 03:30 POC Glucose 128 mg/dL (70-105) H 10/11/21 11:41 Lactic Acid 1.80 mmol/L (0.7-2.0) 10/10/21 04:10 Calcium 7.9 mg/dL (8.4-10.2) L 10/11/21 03:30 Phosphorus 3.50 mg/dL (2.5-4.5) D 10/11/21 03:30 Magnesium 1.90 mg/dL (1.7-2.3) 10/11/21 03:30 Ferritin 751.9 ng/mL (10.0-200.0) H 10/09/21 05:31 Total Bilirubin 0.30 mg/dL (0.1-1.2) 10/09/21 05:31 AST 26 units/L (5-40) 10/09/21 05:31 ALT 11 units/L (7-56) 10/09/21 05:31 Alkaline Phosphatase 63 units/L (35-129) 10/09/21 05:31 Lactate Dehydrogenase 472 units/L (91-180) H 10/09/21 05:31 Total Creatine Kinase 242 units/L (30-135) H 10/06/21 05:27 C-Reactive Protein 15.90 mg/dL (0.00-1.30) H 10/09/21 05:31 Total Protein 5.8 g/dL (6.3-8.2) L 10/09/21 05:31 Albumin 2.3 g/dL (3.9-5) L 10/09/21 05:31 Albumin/Globulin Ratio 0.7 % 10/09/21 05:31 Triglycerides 124 mg/dL (2-149) 10/11/21 03:30 Procalcitonin 12.98 ng/mL (<0.15) 10/09/21 05:31 Urine Color Yellow (Yellow) 09/24/21 14:49 Urine Turbidity Slightly-cloudy (Clear) 09/24/21 14:49 Urine pH 6.0 (5.0-7.0) 09/24/21 14:49 Ur Specific Gary 1.017 (1.003-1.030) 09/24/21 14:49 Urine Protein 30 mg/dl mg/dL (Negative) 09/24/21 14:49 Urine Glucose (UA) Neg mg/dL (Negative) 09/24/21 14:49 Urine Ketones Neg mg/dL (Negative) 09/24/21 14:49 Urine Blood Neg (Negative) 09/24/21 14:49 Urine Nitrite Neg (Negative) 09/24/21 14:49 Ur Reducing Substances Not Reportable 09/24/21 14:49 Urine Bilirubin Neg (Negative) 09/24/21 14:49 Urine Ictotest Not Reportable 09/24/21 14:49 Urine Urobilinogen < 2.0 mg/dL (<2.0) 09/24/21 14:49 Ur Leukocyte Esterase Neg (Negative) 09/24/21 14:49 Urine WBC (Auto) 4.0 /HPF (0.0-6.0) 09/24/21 14:49 Urine RBC (Auto) 2.0 /HPF (0.0-6.0) 09/24/21 14:49 U Epithel Cells (Auto) 18.0 /HPF (0-13.0) H 09/24/21 14:49 Urine Mucus Few /HPF 09/24/21 14:49 Urine HCG, Qual Negative (Negative) 09/24/21 14:49 Coronavirus (PCR) Negative (Negative) 10/09/21 10:15 Blood Type A POSITIVE 10/08/21 22:55 Antibody Screen Negative 10/08/21 22:55 Crossmatch See Detail 10/08/21 22:55 Microbiology: Microbiology 10/08/21 22:55 Peripheral/Venous Blood Culture - Preliminary NO GROWTH AFTER 48 HOURS 10/08/21 23:30 Peripheral/Venous Blood Culture - Preliminary NO GROWTH AFTER 48 HOURS Doss/IV: Voiding Method Indwelling Catheter Active Medications - Current Medications Current Medications: Generic Name Dose Route Start Last Admin Trade Name Freq PRN Reason Stop Dose Admin Acetaminophen 650 mg 10/08/21 21:38 Acetaminophen 325 Mg Tab PO Q6H PRN Pain, Mild (1-3) Albuterol 2.5 mg 09/24/21 18:07 Albuterol 2.5 Mg/3 Ml Nebu IH Q4HRT PRN Shortness Of Breath Dextrose 0 ml 10/03/21 12:37 Dextrose 10% *Hypoglycemia IV PRN PRN Hypoglycemia Diphenhydramine HCl 25 mg 10/04/21 15:14 10/07/21 00:34 Diphenhydramine 50 Mg/Ml Vial IV 25 mg Q6H PRN Administration Itching Famotidine 20 mg 10/08/21 22:00 10/11/21 09:05 Famotidine 20 Mg/2 Ml Inj IV 20 mg BID JAZ Administration Fentanyl 50 mcg 10/08/21 22:10 Fentanyl 100 Mcg/2 Ml Inj IV Q10MIN PRN ANALGESIA Heparin Sodium (Porcine) 5,000 unit 10/07/21 06:00 10/11/21 05:28 Heparin 5,000 Unit/1 Ml Vial SUB-Q 5,000 unit Q8HR JAZ Administration Hydromorphone HCl 0.25 mg 10/08/21 21:38 Hydromorphone 1 Mg/1 Ml Inj IV Q4H PRN Pain, Moderate (4-6) Hydrophilic Ointment 1 applic 10/08/21 21:00 Lip Therapy Vaseline TP Q2HR PRN Dry Lips Metronidazole 500 mg in 100 mls @ 100 mls/hr 10/02/21 16:00 10/11/21 08:21 Flagyl 500 Mg/100 Ml IV 100 mls/hr Q8H JAZ Administration Protocol Linezolid 600 mg in 300 mls @ 300 mls/hr 10/08/21 15:00 10/11/21 03:35 Zyvox 600mg/300ml IV 300 mls/hr Q12H JAZ Administration Protocol Propofol 1,000 mg in 100 mls @ 2.694 mls/hr 10/08/21 21:00 10/11/21 13:45 Diprivan 10 Mg/Ml IV 40 mcg/kg/min TITR JAZ 21.552 mls/hr Titration Protocol 5 MCG/KG/MIN Cefepime HCl 2 gm in 100 mls @ 200 mls/hr 10/08/21 22:00 10/11/21 09:05 Cefepime/Ns 2 Gm/100 Ml IV 200 mls/hr Q12H JAZ Administration Protocol Fentanyl Citrate 2,000 mcg in 100 mls @ 4.49 mls/hr 10/08/21 23:00 10/11/21 10:53 Fentanyl Drip Premix IV 4 mcg/kg/hr TITR JAZ 17.96 mls/hr Administration Protocol 1 MCG/KG/HR Vasopressin 20 unit/ Sodium 101 mls @ 9.09 mls/hr 10/08/21 23:00 10/09/21 14:30 Chloride IV 0 units/min TITR JAZ 0 mls/hr Titration Protocol 0.03 UNITS/MIN NORepinephrine/NS 8 MG-250 ML 8 mg in 250 mls @ 3.75 mls/hr 10/08/21 23:45 Norepinephrine/Ns 8 Mg-250 Ml (Double Conc) IV TITRATE [facility] Protocol 2 MCG/MIN Amino Acids/Electrolytes/Dextrose 1,999.92 mls @ 83.3 mls/hr 10/10/21 20:00 10/10/21 20:15 Tpn Adult IV 10/11/21 19:59 83.3 mls/hr DAILY@1999 [facility] Administration Protocol Amino Acids/Electrolytes/Dextrose 1,999.92 mls @ 83.3 mls/hr 10/11/21 20:00 Tpn Adult IV 10/12/21 19:59 DAILY@1999 [facility] Protocol Insulin Human Regular 0 units 10/10/21 00:00 10/11/21 11:49 Insulin Regular, Human 100 Units/1 Ml SUB-Q Not Given Q6HR [facility] Protocol Labetalol HCl 10 mg 10/01/21 08:31 10/08/21 13:22 Labetalol 20 Mg/4 Ml Inj IV 10 mg Q6H PRN Administration Hypertension Multi-Ingred Cream/Lotion/Oil/Oint 1 applic 10/08/21 21:00 Mineral Oil/Petrolatum, White Ophth Oint 3.5 Gm OU Q4HR PRN Dry Eye(s) Naloxone HCl 0.1 mg 10/03/21 14:00 Naloxone 0.4 Mg/1 Ml Inj IV Q2MIN PRN Res Rate </= 8 or 02 SAT < 92% Ondansetron HCl 4 mg 09/24/21 18:07 10/05/21 11:39 Ondansetron 4 Mg/2 Ml Inj IV 4 mg Q8H PRN Administration Nausea And Vomiting Phenol 1 spray 10/02/21 13:00 10/03/21 10:23 Phenol 1.4% 177 Ml Bottle MM 1 spray PRN PRN Administration Sore Throat Scopolamine 1 each 10/04/21 10:00 10/10/21 09:53 Scopolamine Transdermal Patch 72 Hr TD 1 each Q3D JAZ Administration Sodium Chloride 10 ml 09/24/21 22:00 10/11/21 09:05 Sodium Chloride 0.9% 10 Ml Flush Syringe IV 10 ml BID JAZ Administration Sodium Chloride 10 ml 09/24/21 18:07 09/25/21 08:34 Sodium Chloride 0.9% 10 Ml Flush Syringe IV 10 ml PRN PRN Administration LINE FLUSH Nutrition/Malnutrition Assess - Dietary Evaluation Nutrition/Malnutrition Findings: Nutrition Notes Start: 09/25/21 15:31 Freq: Status: Active Protocol: Document 10/11/21 10:07 [facility] (Rec: 10/11/21 10:12 [facility] [id number]) Nutrition Notes Pertinent Medications Lasix, Propofol at 13.47ml/hr (provides 356 kcal) Height 5 ft 7 in Weight 89.8 kg [place] Body Weight (kg) 61.36 BMI 31.0 Weight change and time frame Wt change likely sec to Lasix administration Weight Status Obese Is patient on ventilator? Yes Is Patient Ambulatory and/or Out of Bed No REE-([facility]-confined to bed) 1970.748 Kcal/Kg value to use for calculation 17 Approximate Energy Requirements Using 1527 kcal/Kg Calculation Used for Recommendations Kcal/kg <PAULIE HAY - Last Filed: 10/12/21 07:28> Assessment and Plan Assessment and plan: I saw and evaluated the patient. I agree with the findings and the plan of care as documented in the Nurse Practitioner's~note, with the following corrections and additions. Hospitalist Physical - Constitutional Vitals: Temp Pulse Resp BP Pulse Ox 98 F 71 14 136/87 100 10/12/21 04:00 10/12/21 06:00 10/12/21 06:00 10/12/21 06:00 10/12/21 06:00 Results - Labs CBC & Chem 7: 10/12/21 06:02 10/12/21 06:02 Labs: Laboratory Last Values WBC 19.1 K/mm3 (4.5-11.0) H 10/12/21 06:02 RBC 3.56 M/mm3 (3.65-5.03) L 10/12/21 06:02 Hgb 10.0 gm/dl (10.1-14.3) L D 10/12/21 06:02 Hct 31.0 % (30.3-42.9) D 10/12/21 06:02 MCV 87 fl (79-97) 10/12/21 06:02 MCH 28 pg (28-32) 10/12/21 06:02 MCHC 32 % (30-34) 10/12/21 06:02 RDW 17.0 % (13.2-15.2) H 10/12/21 06:02 Plt Count 712 K/mm3 (140-440) H 10/12/21 06:02 [place] % (Auto) 5.9 % (0.0-7.3) 09/28/21 04:55 Eos % (Auto) 0.4 % (0.0-4.3) 09/28/21 04:55 [place] # (Auto) 0.9 K/mm3 (0.0-0.8) H 09/28/21 04:55 Eos # (Auto) 0.1 K/mm3 (0.0-0.4) 09/28/21 04:55 Baso # (Auto) 0.0 K/mm3 (0.0-0.1) 09/28/21 04:55 Add Manual Diff Complete 10/09/21 05:31 Total Counted 100 10/09/21 05:31 Seg Neutrophils % Appliance Technician 10/03/21 04:55 Seg Neuts % (Manual) 88.0 % (40.0-70.0) H 10/09/21 05:31 Band Neutrophils % 0 % 10/09/21 05:31 Lymphocytes % (Manual) 3.0 % (13.4-35.0) L 10/09/21 05:31 Reactive Lymphs % (Man) 1.0 % 10/09/21 05:31 Monocytes % (Manual) 6.0 % (0.0-7.3) 10/09/21 05:31 Eosinophils % (Manual) 2.0 % (0.0-4.3) 10/09/21 05:31 Basophils % (Manual) 0 % (0.0-1.8) 10/09/21 05:31 Metamyelocytes % 0 % 10/09/21 05:31 Myelocytes % 0 % 10/09/21 05:31 Promyelocytes % 0 % 10/09/21 05:31 Blast Cells % 0 % 10/09/21 05:31 Nucleated RBC % Not Reportable 10/09/21 05:31 Seg Neutrophils # 14.0 K/mm3 (1.8-7.7) H 09/28/21 04:55 Seg Neutrophils # Man 17.9 K/mm3 (1.8-7.7) H 10/09/21 05:31 Band Neutrophils # 0.0 K/mm3 10/09/21 05:31 Lymphocytes # (Manual) 0.6 K/mm3 (1.2-5.4) L 10/09/21 05:31 Abs React Lymphs (Man) 0.2 K/mm3 10/09/21 05:31 Monocytes # (Manual) 1.2 K/mm3 (0.0-0.8) H 10/09/21 05:31 Eosinophils # (Manual) 0.4 K/mm3 (0.0-0.4) 10/09/21 05:31 Basophils # (Manual) 0.0 K/mm3 (0.0-0.1) 10/09/21 05:31 Metamyelocytes # 0.0 K/mm3 10/09/21 05:31 Myelocytes # 0.0 K/mm3 10/09/21 05:31 Promyelocytes # 0.0 K/mm3 10/09/21 05:31 Blast Cells # 0.0 K/mm3 10/09/21 05:31 Pathologist Review 09/24/21 14:58 WBC Morphology Not Reportable 10/09/21 05:31 Hypersegmented Neuts Not Reportable 10/09/21 05:31 Hyposegmented Neuts Not Reportable 10/09/21 05:31 Hypogranular Neuts Not Reportable 10/09/21 05:31 Smudge Cells Not Reportable 10/09/21 05:31 Toxic Granulation Not Reportable 10/09/21 05:31 Toxic Vacuolation Not Reportable 10/09/21 05:31 Dohle Bodies Not Reportable 10/09/21 05:31 Pelger-Huet Anomaly Not Reportable 10/09/21 05:31 Marlene Rods Not Reportable 10/09/21 05:31 Platelet Estimate Consistent w auto 10/09/21 05:31 Clumped Platelets Not Reportable 10/09/21 05:31 Plt Clumps, EDTA Not Reportable 10/09/21 05:31 Large Platelets Not Reportable 10/09/21 05:31 Giant Platelets Not Reportable 10/09/21 05:31 Platelet Satelliting Not Reportable 10/09/21 05:31 Plt Morphology Comment Not Reportable 10/09/21 05:31 RBC Morphology Not Reportable 10/09/21 05:31 Dimorphic RBCs Not Reportable 10/09/21 05:31 Polychromasia Not Reportable 10/09/21 05:31 Hypochromasia Not Reportable 10/09/21 05:31 Poikilocytosis Not Reportable 10/09/21 05:31 Anisocytosis 1+ 10/09/21 05:31 Microcytosis Not Reportable 10/09/21 05:31 Macrocytosis Not Reportable 10/09/21 05:31 Spherocytes Not Reportable 10/09/21 05:31 Pappenheimer Bodies Not Reportable 10/09/21 05:31 Sickle Cells Not Reportable 10/09/21 05:31 Target Cells Not Reportable 10/09/21 05:31 Tear Drop Cells Not Reportable 10/09/21 05:31 Ovalocytes Not Reportable 10/09/21 05:31 Helmet Cells Not Reportable 10/09/21 05:31 Navas-[place]al[place] Bodies Not Reportable 10/09/21 05:31 [place] Rings Not Reportable 10/09/21 05:31 [place] Cells Not Reportable 10/09/21 05:31 Bite Cells Not Reportable 10/09/21 05:31 Crenated Cell Not Reportable 10/09/21 05:31 Elliptocytes Not Reportable 10/09/21 05:31 Acanthocytes (Spur) Not Reportable 10/09/21 05:31 Rouleaux Not Reportable 10/09/21 05:31 Hemoglobin C Crystals Not Reportable 10/09/21 05:31 Schistocytes Not Reportable 10/09/21 05:31 Malaria parasites Not Reportable 10/09/21 05:31 Flaco Bodies Not Reportable 10/09/21 05:31 Hem Pathologist Commnt No 10/09/21 05:31 PT 17.1 Sec. (12.2-14.9) H 10/12/21 06:02 INR 1.24 (0.87-1.13) H 10/12/21 06:02 APTT 35.8 Sec. (24.2-36.6) 10/12/21 06:02 D-Dimer > 22746 ng/mlDDU (0-234) H 10/09/21 08:45 ABG pH 7.505 pH Units (7.350-7.450) H 10/10/21 Unknown ABG pCO2 27.6 mm Hg 10/10/21 Unknown ABG pO2 246.1 mm Hg (80.0-90.0) H 10/10/21 Unknown ABG HCO3 21.3 mmol/L (20.0-26.0) 10/10/21 Unknown ABG O2 Saturation 99.4 % (95.0-99.0) H 10/10/21 Unknown ABG O2 Content 8.9 (0.0-44) 10/10/21 Unknown ABG Base Excess -1.7 mmol/L (-2.0-3.0) 10/10/21 Unknown ABG Hemoglobin 6.0 gm/dl (12.0-16.0) L 10/10/21 Unknown ABG Carboxyhemoglobin 1.1 % (0.0-5.0) 10/10/21 Unknown ABG Methemoglobin 0.5 % (0.0-1.5) 10/10/21 Unknown Oxyhemoglobin 97.9 % (95.0-99.0) 10/10/21 Unknown FiO2 60 % 10/10/21 Unknown Sodium 138 mmol/L (137-145) 10/12/21 06:02 Potassium 3.9 mmol/L (3.6-5.0) 10/12/21 06:02 Chloride 104.1 mmol/L (98-107) 10/12/21 06:02 Carbon Dioxide 23 mmol/L (22-30) 10/12/21 06:02 Anion Gap 15 mmol/L 10/12/21 06:02 BUN 37 mg/dL (7-17) H 10/12/21 06:02 Creatinine 1.5 mg/dL (0.6-1.2) H 10/12/21 06:02 Estimated GFR 49 ml/min 10/12/21 06:02 BUN/Creatinine Ratio 25 % 10/12/21 06:02 Glucose 172 mg/dL (65-100) H 10/12/21 06:02 POC Glucose 158 mg/dL (70-105) H 10/12/21 05:39 Lactic Acid 1.80 mmol/L (0.7-2.0) 10/10/21 04:10 Calcium 8.1 mg/dL (8.4-10.2) L 10/12/21 06:02 Phosphorus 4.00 mg/dL (2.5-4.5) 10/12/21 06:02 Magnesium 2.00 mg/dL (1.7-2.3) 10/12/21 06:02 Ferritin 751.9 ng/mL (10.0-200.0) H 10/09/21 05:31 Total Bilirubin 0.30 mg/dL (0.1-1.2) 10/09/21 05:31 AST 26 units/L (5-40) 10/09/21 05:31 ALT 11 units/L (7-56) 10/09/21 05:31 Alkaline Phosphatase 63 units/L (35-129) 10/09/21 05:31 Lactate Dehydrogenase 472 units/L (91-180) H 10/09/21 05:31 Total Creatine Kinase 242 units/L (30-135) H 10/06/21 05:27 C-Reactive Protein 15.90 mg/dL (0.00-1.30) H 10/09/21 05:31 Total Protein 5.8 g/dL (6.3-8.2) L 10/09/21 05:31 Albumin 2.3 g/dL (3.9-5) L 10/09/21 05:31 Albumin/Globulin Ratio 0.7 % 10/09/21 05:31 Triglycerides 124 mg/dL (2-149) 10/11/21 03:30 Procalcitonin 12.98 ng/mL (<0.15) 10/09/21 05:31 Urine Color Yellow (Yellow) 09/24/21 14:49 Urine Turbidity Slightly-cloudy (Clear) 09/24/21 14:49 Urine pH 6.0 (5.0-7.0) 09/24/21 14:49 Ur Specific Gary 1.017 (1.003-1.030) 09/24/21 14:49 Urine Protein 30 mg/dl mg/dL (Negative) 09/24/21 14:49 Urine Glucose (UA) Neg mg/dL (Negative) 09/24/21 14:49 Urine Ketones Neg mg/dL (Negative) 09/24/21 14:49 Urine Blood Neg (Negative) 09/24/21 14:49 Urine Nitrite Neg (Negative) 09/24/21 14:49 Ur Reducing Substances Not Reportable 09/24/21 14:49 Urine Bilirubin Neg (Negative) 09/24/21 14:49 Urine Ictotest Not Reportable 09/24/21 14:49 Urine Urobilinogen < 2.0 mg/dL (<2.0) 09/24/21 14:49 Ur Leukocyte Esterase Neg (Negative) 09/24/21 14:49 Urine WBC (Auto) 4.0 /HPF (0.0-6.0) 09/24/21 14:49 Urine RBC (Auto) 2.0 /HPF (0.0-6.0) 09/24/21 14:49 U Epithel Cells (Auto) 18.0 /HPF (0-13.0) H 09/24/21 14:49 Urine Mucus Few /HPF 09/24/21 14:49 Urine HCG, Qual Negative (Negative) 09/24/21 14:49 Coronavirus (PCR) Negative (Negative) 10/09/21 10:15 Blood Type A POSITIVE 10/08/21 22:55 Antibody Screen Negative 10/08/21 22:55 Crossmatch See Detail 10/08/21 22:55 Microbiology: Microbiology 10/08/21 22:55 Peripheral/Venous Blood Culture - Preliminary NO GROWTH AFTER 72 HOURS 10/08/21 23:30 Peripheral/Venous Blood Culture - Preliminary NO GROWTH AFTER 72 HOURS 10/11/21 14:52 Abdomen Surgical Culture - Preliminary 10/11/21 Unknown Abdomen Surgical Culture - Preliminary Doss/IV: Voiding Method Indwelling Catheter Active Medications - Current Medications Current Medications: Generic Name Dose Route Start Last Admin Trade Name Freq PRN Reason Stop Dose Admin Acetaminophen 650 mg 10/08/21 21:38 Acetaminophen 325 Mg Tab PO Q6H PRN Pain, Mild (1-3) Albuterol 2.5 mg 09/24/21 18:07 Albuterol 2.5 Mg/3 Ml Nebu IH Q4HRT PRN Shortness Of Breath Dextrose 0 ml 10/03/21 12:37 Dextrose 10% *Hypoglycemia IV PRN PRN Hypoglycemia Diphenhydramine HCl 25 mg 10/04/21 15:14 10/07/21 00:34 Diphenhydramine 50 Mg/Ml Vial IV 25 mg Q6H PRN Administration Itching Famotidine 20 mg 10/08/21 22:00 10/11/21 21:27 Famotidine 20 Mg/2 Ml Inj IV 20 mg BID JAZ Administration Fentanyl 50 mcg 10/08/21 22:10 Fentanyl 100 Mcg/2 Ml Inj IV Q10MIN PRN ANALGESIA Heparin Sodium (Porcine) 5,000 unit 10/07/21 06:00 10/12/21 05:51 Heparin 5,000 Unit/1 Ml Vial SUB-Q 5,000 unit Q8HR JAZ Administration Hydromorphone HCl 0.25 mg 10/08/21 21:38 Hydromorphone 1 Mg/1 Ml Inj IV Q4H PRN Pain, Moderate (4-6) Hydrophilic Ointment 1 applic 10/08/21 21:00 Lip Therapy Vaseline TP Q2HR PRN Dry Lips Metronidazole 500 mg in 100 mls @ 100 mls/hr 10/02/21 16:00 10/12/21 00:22 Flagyl 500 Mg/100 Ml IV 100 mls/hr Q8H JAZ Administration Protocol Linezolid 600 mg in 300 mls @ 300 mls/hr 10/08/21 15:00 10/12/21 02:56 Zyvox 600mg/300ml IV 300 mls/hr Q12H JAZ Administration Protocol Propofol 1,000 mg in 100 mls @ 2.694 mls/hr 10/08/21 21:00 10/12/21 05:50 Diprivan 10 Mg/Ml IV 30 mcg/kg/min TITR JAZ 16.164 mls/hr Administration Protocol 5 MCG/KG/MIN Cefepime HCl 2 gm in 100 mls @ 200 mls/hr 10/08/21 22:00 10/11/21 21:27 Cefepime/Ns 2 Gm/100 Ml IV 200 mls/hr Q12H JAZ Administration Protocol Fentanyl Citrate 2,000 mcg in 100 mls @ 4.49 mls/hr 10/08/21 23:00 10/12/21 04:08 Fentanyl Drip Premix IV 4 mcg/kg/hr TITR JAZ 17.96 mls/hr Administration Protocol 1 MCG/KG/HR Vasopressin 20 unit/ Sodium 101 mls @ 9.09 mls/hr 10/08/21 23:00 10/09/21 14:30 Chloride IV 0 units/min TITR JAZ 0 mls/hr Titration Protocol 0.03 UNITS/MIN NORepinephrine/NS 8 MG-250 ML 8 mg in 250 mls @ 3.75 mls/hr 10/08/21 23:45 Norepinephrine/Ns 8 Mg-250 Ml (Double Conc) IV TITRATE JAZ Protocol 2 MCG/MIN Amino Acids/Electrolytes/Dextrose 1,999.92 mls @ 83.3 mls/hr 10/11/21 20:00 10/11/21 20:42 Tpn Adult IV 10/12/21 19:59 83.3 mls/hr DAILY@1999 [facility] Administration Protocol Insulin Human Regular 0 units 10/10/21 00:00 10/12/21 05:51 Insulin Regular, Human 100 Units/1 Ml SUB-Q 2 units Q6HR [facility] Administration Protocol Labetalol HCl 10 mg 10/01/21 08:31 10/08/21 13:22 Labetalol 20 Mg/4 Ml Inj IV 10 mg Q6H PRN Administration Hypertension Multi-Ingred Cream/Lotion/Oil/Oint 1 applic 10/08/21 21:00 Mineral Oil/Petrolatum, White Ophth Oint 3.5 Gm OU Q4HR PRN Dry Eye(s) Naloxone HCl 0.1 mg 10/03/21 14:00 Naloxone 0.4 Mg/1 Ml Inj IV Q2MIN PRN Res Rate </= 8 or 02 SAT < 92% Ondansetron HCl 4 mg 09/24/21 18:07 10/05/21 11:39 Ondansetron 4 Mg/2 Ml Inj IV 4 mg Q8H PRN Administration Nausea And Vomiting Phenol 1 spray 10/02/21 13:00 10/03/21 10:23 Phenol 1.4% 177 Ml Bottle MM 1 spray PRN PRN Administration Sore Throat Scopolamine 1 each 10/04/21 10:00 10/10/21 09:53 Scopolamine Transdermal Patch 72 Hr TD 1 each Q3D JZA Administration Sodium Chloride 10 ml 09/24/21 22:00 10/11/21 21:27 Sodium Chloride 0.9% 10 Ml Flush Syringe IV 10 ml BID JAZ Administration Sodium Chloride 10 ml 09/24/21 18:07 09/25/21 08:34 Sodium Chloride 0.9% 10 Ml Flush Syringe IV 10 ml PRN PRN Administration LINE FLUSH Nutrition/Malnutrition Assess - Dietary Evaluation Nutrition/Malnutrition Findings: Nutrition Notes Start: 09/25/21 15:31 Freq: Status: Active Protocol: Document 10/11/21 10:07 BRYAN (Rec: 10/11/21 10:12 BRYAN [id number]) Nutrition Notes Initial or Follow up Reassessment Current Diagnosis Acute Kidney Injury,Sepsis Other Pertinent Diagnosis Perforated appendicitis s/p appendectomy with (R) hemicolectomy Current Diet CPN at 83.33ml/hr Labs/Tests Na 135 CO2 - 20 BUN 38 Cr 1.6 Pertinent Medications Lasix, Propofol at 13.47ml/hr (provides 356 kcal) Height 5 ft 7 in Weight 105 kg [place] Body Weight (kg) 61.36 BMI 36.2 Weight change and time frame Current wt obtained from bed scale - lasix given yesterday Weight Status Obese Subjective/Other Information Day 9 PN. Pt remains on vent support. Chest Xray revealed worsening bilat opacities sec to pneu vs fluid overload and pulmonary edema. Percent of energy/protein needs met: 65% energy 81% pro (meeting 86% energy needs if propofol included) Burn Absent Trauma Absent #1 Nutrition Diagnosis Altered GI function Diagnosis Progress(for reassessment Continues documentation) Is patient on ventilator? Yes Is Patient Ambulatory and/or Out of Bed No REE-([facility]-confined to bed) 2152.968 Kcal/Kg value to use for calculation 16 Approximate Energy Requirements Using 1680 kcal/Kg Calculation Used for Recommendations Kcal/kg Additional Notes Pro needs 2g/kg IBW: 123g/day Fluid needs 1ml/kcal Nutrition Intervention Nutrition Support: Continue CPN at 83.33ml/hr: MVI, 12.5% dextrose. Osmolality: 1330. Kcal 1,250 Protein (gm) 100 Carbohydrates (gm) 250 Fat (gm) 0 Fluid (mL) 2,000 Fiber (gm) 0 Goal #1 CPN to meet at least 75% energy and pro needs Follow-Up By: 10/12/21 Additional Comments Labs in am: BMP, Mg, Phos F/U: vent status, propofol
--- NOTE | 2021-10-11 14:51 | Post Operative Note ---
Date of procedure: 10/11/21 Pre-op diagnosis: Fluid collections Post-op diagnosis: same Findings: Fluid collections abutting the colonic anastamosis and drain passed into the colon originally requiring retraction into the fluid collection. Left mild to moderate hydronephrosis. 700 ml brown serous fluid from the mid abdominal drain (drain #1) 200 mL brown thick fluid from the left lateral drain (drain #2) Anesthesia: local Surgeon: TOM POTTS Estimated blood loss: minimal Condition: stable Disposition: floor
--- NOTE | 2021-10-11 14:52 | Operative Report ---
Operative Report Operative Report: EXAM: 1) CT guided slightly left of midline abdominal fluid collection 12 Beninese drain placement 2) CT guided left lateral abdominal retroperitoneal fluid collection 8 Fr drain placement CLINICAL INDICATION: 31-year-old female with complicated appendicitis involving the sigmoid colon requiring left colectomy and appendectomy with respiratory distress and recent CT demonstrating extraluminal air. CT immediately prior to procedure demonstrates large fluid collections adjacent to the anastomosis with left hydronephrosis. Risks, benefits, and alternatives discussed. DATE: 10/11/2021 COOK SHORT ORDER: TOM POTTS MD MEDICATIONS: Conscious sedation using Versed and fentanyl was performed under guidance of radiologic nursing. Continuous cardiopulmonary monitoring was utilized. PROCEDURE: Following an explanation of the risks, benefits and alternatives; written informed consent was obtained from the patient's father. The patient was brought to the CT suite and placed in the supine position on the CT table. Grades were applied machine brush maker CT was performed of the abdomen and pelvis. The areas were then marked with plans for a left midline and left lateral drain. After determining the appropriate site for the first drain, the skin was infiltrated with lidocaine and a finder needle was placed. Intermittent CT was performed until the desired position was identified. The 18 gauge trocar needle was inserted into the mid abdomen into the fluid collection that extended into the mid abdomen. J wire was then advanced through the needle and into the collection. The needle was exchanged for multiple dilators that were used to serially dilate over the wire. A 12 Fr APD drain was advanced over the wire and metal stiffener. The metal stiffener and wire were removed. CT scanning was performed. The pigtail was secured. 2, 2-0 Silk sutures were used to suture the drain in place. After determining the appropriate site for the second drain, the skin was infiltrated with lidocaine and a finder needle was placed. Intermittent CT was performed until the desired position was identified. The 18 gauge trocar needle was inserted into the left lateral abdominal retroperitoneal fluid collection that extended along the left flank. J wire was then advanced through the needle and into the collection. The needle was exchanged for multiple dilators that were used to serially dilate over the wire. A 8 Fr APD drain was advanced over the wire and metal stiffener. The metal stiffener and wire were removed. CT scanning was performed. The pigtail was secured. 2, 2-0 Silk sutures were used to suture the drain in place. Sterile bandage was applied. The patient tolerated the procedure well. There were no immediate postprocedural complications. FINDINGS: 1. Initial CT demonstrates multiple fluid collection in the pelvis extending into the left retroperitoneal space and into the peritoneal space. There is hydronephrosis of the left kidney. There is a satisfactory window for CT drainage. This CT was performed for localization purposes only. 2. Wire is coiled in the left mid abdominal fluid collection. 3. CT documents placement of a 12 Fr drain in the left mid abdominal fluid collection. 4. A total of approximately 700 mL of dark brown predominantly serous material was aspirated through the drain and initial needle. 5. Wire is coiled in the left lateral abdominal retroperitoneal fluid collection. 6. CT documents placement of a 8 Fr drain in the left lateral abdominal retroperitoneal fluid collection. 7. A total of approximately 200 mL of dark brown predominantly feculent material was aspirated through the drain and second needle. IMPRESSION: 1. Successful CT guided 12 Beninese drain placement in a left of midline abdominal fluid collection. 2. Successful CT guided 8 Beninese drain placement in a left lateral abdominal retroperitoneal fluid collection.
--- NOTE | 2021-10-11 15:44 | Progress Note ---
Assessment and Plan Postop day #10 status post laparoscopic converted to open left hemicolectomy with appendectomy for perforated appendicitis with fistulization to sigmoid colon. Now with break down of anastamosis with leak s/p IR drainage for temporary control. Afebrile and stable at this time however requiring vent support after acute respiratory failure. Plan to take to OR tomorrow for ex lap and diverting ileostomy. Commuicated with Dr. Kan and will keep him posted about timing of procedure so he can help verify anatomy of left urinary collecting system since there is still question if it is intact. Appreciate nephrology input with renal function improving slowly, continues to have good urine out put. Spoke with patient's mother and step father at length about pathology, treatment plan and prognosis. They expressed understanding. continue abx and supportive care. Subjective Date of service: 10/11/21 Narrative: Past 24 hours patient had two drains placed by IR which drained feculent fluid and ct showed anastamosis staple line dehiscence. Pt has been afebrile and sta ble and receiving several units of prbc for drop in Hb of 6.7. She has tolerated decreased setting on her ventilator and showed improved chest x-ray after diuresis. Objective Vital Signs - 12hr 10/11/21 10/11/21 10/11/21 04:00 04:30 05:00 Temperature Pulse Rate 64 63 67 Pulse Rate [ 70 From Monitor] Pulse Rate [ Intra-Procedure ] Pulse Rate [Pre -Procedure] Respiratory 22 22 18 Rate Respiratory Rate [Intra- Procedure] Respiratory Rate [Pre- Procedure] Blood Pressure 121/62 123/66 126/74 Blood Pressure [Intra- Procedure] Blood Pressure [Pre-Procedure] O2 Sat by Pulse 100 100 Oximetry O2 Sat by Pulse Oximetry [ Intra-Procedure ] O2 Sat by Pulse Oximetry [Pre- Procedure] 10/11/21 10/11/21 10/11/21 05:30 06:00 06:30 Temperature Pulse Rate 61 61 105 H Pulse Rate [ From Monitor] Pulse Rate [ Intra-Procedure ] Pulse Rate [Pre -Procedure] Respiratory 22 22 18 Rate Respiratory Rate [Intra- Procedure] Respiratory Rate [Pre- Procedure] Blood Pressure 119/65 119/70 128/77 Blood Pressure [Intra- Procedure] Blood Pressure [Pre-Procedure] O2 Sat by Pulse 100 100 100 Oximetry O2 Sat by Pulse Oximetry [ Intra-Procedure ] O2 Sat by Pulse Oximetry [Pre- Procedure] 10/11/21 10/11/21 10/11/21 07:00 07:22 07:30 Temperature Pulse Rate 96 H 82 96 H Pulse Rate [ From Monitor] Pulse Rate [ Intra-Procedure ] Pulse Rate [Pre -Procedure] Respiratory 18 9 L Rate Respiratory Rate [Intra- Procedure] Respiratory Rate [Pre- Procedure] Blood Pressure 148/86 121/65 157/92 Blood Pressure [Intra- Procedure] Blood Pressure [Pre-Procedure] O2 Sat by Pulse 100 100 100 Oximetry O2 Sat by Pulse Oximetry [ Intra-Procedure ] O2 Sat by Pulse Oximetry [Pre- Procedure] 10/11/21 10/11/21 10/11/21 08:00 08:30 09:00 Temperature 99.1 F Pulse Rate 75 85 66 Pulse Rate [ 75 From Monitor] Pulse Rate [ Intra-Procedure ] Pulse Rate [Pre -Procedure] Respiratory 22 14 22 Rate Respiratory Rate [Intra- Procedure] Respiratory Rate [Pre- Procedure] Blood Pressure 133/70 131/78 126/69 Blood Pressure [Intra- Procedure] Blood Pressure [Pre-Procedure] O2 Sat by Pulse 100 100 100 Oximetry O2 Sat by Pulse Oximetry [ Intra-Procedure ] O2 Sat by Pulse Oximetry [Pre- Procedure] 10/11/21 10/11/21 10/11/21 09:30 09:38 09:53 Temperature 98.8 F 99 F Pulse Rate 69 100 H 77 Pulse Rate [ From Monitor] Pulse Rate [ Intra-Procedure ] Pulse Rate [Pre -Procedure] Respiratory 22 18 22 Rate Respiratory Rate [Intra- Procedure] Respiratory Rate [Pre- Procedure] Blood Pressure 128/70 162/102 141/93 Blood Pressure [Intra- Procedure] Blood Pressure [Pre-Procedure] O2 Sat by Pulse 100 100 100 Oximetry O2 Sat by Pulse Oximetry [ Intra-Procedure ] O2 Sat by Pulse Oximetry [Pre- Procedure] 10/11/21 10/11/21 10/11/21 10:00 10:23 10:30 Temperature 98.8 F Pulse Rate 82 75 72 Pulse Rate [ From Monitor] Pulse Rate [ Intra-Procedure ] Pulse Rate [Pre -Procedure] Respiratory 19 22 22 Rate Respiratory Rate [Intra- Procedure] Respiratory Rate [Pre- Procedure] Blood Pressure 147/84 147/84 125/74 Blood Pressure [Intra- Procedure] Blood Pressure [Pre-Procedure] O2 Sat by Pulse 100 100 100 Oximetry O2 Sat by Pulse Oximetry [ Intra-Procedure ] O2 Sat by Pulse Oximetry [Pre- Procedure] 10/11/21 10/11/21 10/11/21 10:53 11:00 11:23 Temperature 97.8 F 98.7 F Pulse Rate 67 69 69 Pulse Rate [ From Monitor] Pulse Rate [ Intra-Procedure ] Pulse Rate [Pre -Procedure] Respiratory 22 22 22 Rate Respiratory Rate [Intra- Procedure] Respiratory Rate [Pre- Procedure] Blood Pressure 131/81 135/76 130/82 Blood Pressure [Intra- Procedure] Blood Pressure [Pre-Procedure] O2 Sat by Pulse 100 100 100 Oximetry O2 Sat by Pulse Oximetry [ Intra-Procedure ] O2 Sat by Pulse Oximetry [Pre- Procedure] 10/11/21 10/11/21 10/11/21 11:30 11:37 11:53 Temperature 98.7 F Pulse Rate 66 74 70 Pulse Rate [ From Monitor] Pulse Rate [ Intra-Procedure ] Pulse Rate [Pre -Procedure] Respiratory 22 22 Rate Respiratory Rate [Intra- Procedure] Respiratory Rate [Pre- Procedure] Blood Pressure 137/80 130/82 137/81 Blood Pressure [Intra- Procedure] Blood Pressure [Pre-Procedure] O2 Sat by Pulse 99 99 98 Oximetry O2 Sat by Pulse Oximetry [ Intra-Procedure ] O2 Sat by Pulse Oximetry [Pre- Procedure] 10/11/21 10/11/21 10/11/21 11:58 11:59 12:00 Temperature 98.7 F 98.7 F Pulse Rate 67 67 Pulse Rate [ From Monitor] Pulse Rate [ Intra-Procedure ] Pulse Rate [Pre -Procedure] Respiratory 22 22 Rate Respiratory Rate [Intra- Procedure] Respiratory Rate [Pre- Procedure] Blood Pressure 137/81 139/83 Blood Pressure [Intra- Procedure] Blood Pressure [Pre-Procedure] O2 Sat by Pulse 98 98 Oximetry O2 Sat by Pulse Oximetry [ Intra-Procedure ] O2 Sat by Pulse Oximetry [Pre- Procedure] 10/11/21 10/11/21 10/11/21 12:30 13:27 13:53 Temperature Pulse Rate 67 Pulse Rate [ From Monitor] Pulse Rate [ 85 Intra-Procedure ] Pulse Rate [Pre 86 -Procedure] Respiratory 22 Rate Respiratory 22 Rate [Intra- Procedure] Respiratory 22 Rate [Pre- Procedure] Blood Pressure 142/81 Blood Pressure 138/86 [Intra- Procedure] Blood Pressure 137/83 [Pre-Procedure] O2 Sat by Pulse 98 Oximetry O2 Sat by Pulse 95 Oximetry [ Intra-Procedure ] O2 Sat by Pulse 96 Oximetry [Pre- Procedure] 10/11/21 10/11/21 10/11/21 13:58 14:05 14:15 Temperature Pulse Rate Pulse Rate [ From Monitor] Pulse Rate [ 84 88 90 Intra-Procedure ] Pulse Rate [Pre -Procedure] Respiratory Rate Respiratory 22 22 22 Rate [Intra- Procedure] Respiratory Rate [Pre- Procedure] Blood Pressure Blood Pressure 135/82 147/82 142/73 [Intra- Procedure] Blood Pressure [Pre-Procedure] O2 Sat by Pulse Oximetry O2 Sat by Pulse 95 95 95 Oximetry [ Intra-Procedure ] O2 Sat by Pulse Oximetry [Pre- Procedure] 10/11/21 10/11/21 15:04 15:05 Temperature Pulse Rate 112 H Pulse Rate [ From Monitor] Pulse Rate [ Intra-Procedure ] Pulse Rate [Pre -Procedure] Respiratory 24 Rate Respiratory Rate [Intra- Procedure] Respiratory Rate [Pre- Procedure] Blood Pressure 130/89 153/88 Blood Pressure [Intra- Procedure] Blood Pressure [Pre-Procedure] O2 Sat by Pulse 100 97 Oximetry O2 Sat by Pulse Oximetry [ Intra-Procedure ] O2 Sat by Pulse Oximetry [Pre- Procedure] - General physical appearance no distress, no pain, obese - Respiratory normal expansion, normal respiratory effort, other (stable intubated on vent) - Abdomen soft, other (midline and left side drain with dark drainage, YURIDIA drain with scan drainage as well.) - Genitourinary other (urine clear yellow) - Labs 10/11/21 03:30 10/11/21 03:30 Diabetes panel 10/11/21 10/11/21 Range/Units 03:30 03:30 Sodium 135 L (137-145) mmol/L Potassium 4.3 (3.6-5.0) mmol/L Chloride 100.3 (98-107) mmol/L Carbon Dioxide 20 L (22-30) mmol/L BUN 38 H (7-17) mg/dL Creatinine 1.6 H (0.6-1.2) mg/dL Glucose 118 H (65-100) mg/dL Calcium 7.9 L (8.4-10.2) mg/dL Triglycerides 124 (2-149) mg/dL Calcium panel 10/11/21 Range/Units 03:30 Calcium 7.9 L (8.4-10.2) mg/dL Phosphorus 3.50 D (2.5-4.5) mg/dL Pituitary panel 10/11/21 Range/Units 03:30 Sodium 135 L (137-145) mmol/L Potassium 4.3 (3.6-5.0) mmol/L Chloride 100.3 (98-107) mmol/L Carbon Dioxide 20 L (22-30) mmol/L BUN 38 H (7-17) mg/dL Creatinine 1.6 H (0.6-1.2) mg/dL Glucose 118 H (65-100) mg/dL Calcium 7.9 L (8.4-10.2) mg/dL Adrenal panel 10/11/21 Range/Units 03:30 Sodium 135 L (137-145) mmol/L Potassium 4.3 (3.6-5.0) mmol/L Chloride 100.3 (98-107) mmol/L Carbon Dioxide 20 L (22-30) mmol/L BUN 38 H (7-17) mg/dL Creatinine 1.6 H (0.6-1.2) mg/dL Glucose 118 H (65-100) mg/dL Calcium 7.9 L (8.4-10.2) mg/dL
[2021-10-11] MEDS ORDERED: SODIUM CHLORIDE 0.9% 500 ML 500 ML IV SCH (16:00)
[2021-10-11] MEDS ORDERED: TOTAL PARENTERAL NUTRITION 1,999.92 ML IV SCH (20:00)
[2021-10-12] MEDS: INSULIN REGULAR, HUMAN 100 UNITS/1 ML SUB-Q SCH ×5 (00:22→23:52)
[2021-10-12] MEDS: metroNIDAZOLE/NS 500 MG/100 ML 500 MG/100 ML BAG IV SCH ×3 (00:22→17:00)
[2021-10-12] MEDS: LINEZOLID 600 MG/300 ML BAG IV SCH ×2 (02:56→16:59)
[2021-10-12] MEDS: fentaNYL DRIP Premix 2,000 MCG/100 ML BAG IV SCH ×4 (04:08→23:51)
[2021-10-12] MEDS: HEPARIN 5,000 UNIT/1 ML VIAL SUB-Q SCH ×2 (05:51→21:25)
--- NOTE | 2021-10-12 06:02 | XRay Report ---
CHEST 1 VIEW INDICATION / CLINICAL INFORMATION: follow up respiratory failure. COMPARISON: Chest x-ray 10/11/2021 FINDINGS: SUPPORT DEVICES: Stable, satisfactory device positioning. HEART / MEDIASTINUM: Upper limits of normal in size. LUNGS / PLEURA: No significant pulmonary or pleural abnormality. No pneumothorax. ADDITIONAL FINDINGS: No significant additional findings. IMPRESSION: 1. No active cardiopulmonary disease. 2. Satisfactory positioning of tubes and lines. Signer Name: Lukas Elizabeth II, MD Signed: 10/12/2021 5:57 AM Workstation Name: [id number]
[2021-10-12 06:33] LABS: Mean Corpuscular HGB Conc 32 % (30-34); Mean Corpuscular Volume 87 fl (79-97); Platelet Count 712 K/mm3 (140-440); Red Blood Count 3.56 M/mm3 (3.65-5.03)
[2021-10-12 06:45] LABS: INR 1.24 (0.87-1.13); Partial Thromboplastin Time 35.8 Sec. (24.2-36.6)
[2021-10-12 06:55] LABS: Calcium 8.1 mg/dL (8.4-10.2)
--- NOTE | 2021-10-12 08:51 | Progress Note ---
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 Open left hemicolectomy and partial omentectomy Peritonitis Leukocytosis Diverticulitis with absces Acute renal failure Acute blood loss anemia Gross Hematuria - hold on SBT's till abdominal closure - 2D ECHO shows normal EF but mild to moderate Pulm HTN (outpatient w/up but suspect HANNA / OHS contributory) - continue care as below otherwise; - daily SAT and SBT assessment as tolerated - continue to wean supplemental oxygen for target O2 sat's > 90% acutely - VAP bundle addressed - continue lung protective strategies - continue bronchodilators with pulmonary hygiene per RT - wean per pulmonary driven protocols otherwise - avoid nephrotoxins, renally dose all medications - continue accuchecks with glycemic control per SSI (While critically ill target blood glucose of 140-180 mg/dL; avoid hypoglycemia) - sedation prn for target RASS 0 to -1 - continue to avoid benzodiazepine's, reduce the possibility of delirium - AB's per ID rec's - prn analgesia per CPOT score - Maintenance of sleep-wake cycle, avoid delirium - continue enteral nutritional support at goal rate as tolerated - G.I. & VTE prophylaxis - PT/OT/ROM exercises - continue mobility protocols for pressure ulcer prophylaxis - Monitor hemodynamics closely - continue other care per attending / other consultants - discharge planning ongoing concurrently COVID SPECIFIC INTERVENTIONS - COVID-19 PGR negative .... Re-evaluate in am & prn CONDITION: CRITICAL PROGNOSIS: GUARDED CODE STATUS: FULL CODE The high probability of a clinically significant, sudden or life-threatening deterioration of the [respiratory, cardiovascular & neurologic] system(s) required my full and direct attention, intervention and personal management. The aggregate critical care time was [35] minutes without overlap. 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 s/p appendectomy; VRE infection; Open left hemicolectomy and partial omentectomy; Peritonitis; Diverticulitis with abscess;' BRYANNA; ABLA; Gross Hematuria Seen and examined at bedside; 24hour events reviewed; nursing and respiratory care staff consulted; no adverse overnight events reported to me; resting in bed; remains on MVS; denies uncontrolled pain; to OR today tentatively for Exploratory laparotomy, Lysis of adhesions, takedown of colorectal anastomosis and temporary closure of abdomen with ABThera wound VAC Objective Vital Signs - 12hr 10/11/21 10/11/21 10/11/21 20:51 21:00 21:01 Temperature 98 F 98 F Pulse Rate 76 76 75 Pulse Rate [ From Monitor] Respiratory 17 15 17 Rate Blood Pressure 138/91 138/91 138/91 O2 Sat by Pulse 98 98 98 Oximetry 10/11/21 10/11/21 10/11/21 21:16 21:30 22:00 Temperature 98.1 F Pulse Rate 76 77 75 Pulse Rate [ From Monitor] Respiratory 15 14 14 Rate Blood Pressure 134/87 136/90 137/89 O2 Sat by Pulse 99 99 99 Oximetry 10/11/21 10/11/21 10/11/21 22:17 22:21 22:30 Temperature 98.0 F Pulse Rate 78 72 73 Pulse Rate [ From Monitor] Respiratory 17 14 13 Rate Blood Pressure 134/89 143/94 132/89 O2 Sat by Pulse 99 98 99 Oximetry 10/11/21 10/11/21 10/12/21 23:00 23:30 00:00 Temperature 98.2 F Pulse Rate 71 66 68 Pulse Rate [ 86 From Monitor] Respiratory 13 13 14 Rate Blood Pressure 122/83 119/80 124/79 O2 Sat by Pulse 99 99 99 Oximetry 10/12/21 10/12/21 10/12/21 00:30 01:00 01:30 Temperature Pulse Rate 65 67 66 Pulse Rate [ From Monitor] Respiratory 14 13 13 Rate Blood Pressure 119/78 123/83 129/86 O2 Sat by Pulse 100 99 99 Oximetry 10/12/21 10/12/21 10/12/21 02:00 02:30 03:00 Temperature Pulse Rate 63 65 63 Pulse Rate [ From Monitor] Respiratory 13 12 13 Rate Blood Pressure 120/83 121/83 130/84 O2 Sat by Pulse 100 99 100 Oximetry 10/12/21 10/12/21 10/12/21 03:30 03:48 04:00 Temperature 98 F Pulse Rate 58 L 64 80 Pulse Rate [ 86 From Monitor] Respiratory 12 20 Rate Blood Pressure 124/81 120/80 150/94 O2 Sat by Pulse 100 100 100 Oximetry 10/12/21 10/12/21 10/12/21 04:30 05:00 05:31 Temperature Pulse Rate 59 L 87 96 H Pulse Rate [ From Monitor] Respiratory 13 14 11 L Rate Blood Pressure 135/81 152/105 154/98 O2 Sat by Pulse 99 100 100 Oximetry 10/12/21 10/12/21 10/12/21 06:00 06:30 07:00 Temperature Pulse Rate 71 67 70 Pulse Rate [ From Monitor] Respiratory 14 17 14 Rate Blood Pressure 136/87 129/83 125/83 O2 Sat by Pulse 100 99 99 Oximetry 10/12/21 10/12/21 10/12/21 07:30 07:37 08:00 Temperature Pulse Rate 65 63 61 Pulse Rate [ From Monitor] Respiratory 13 13 Rate Blood Pressure 131/83 131/83 127/84 O2 Sat by Pulse 99 99 99 Oximetry 10/12/21 08:30 Temperature Pulse Rate 60 Pulse Rate [ From Monitor] Respiratory 15 Rate Blood Pressure 124/83 O2 Sat by Pulse 99 Oximetry Constitutional: no acute distress, other (young obese female with mildly increased respiratory effort at rest on MVS) Eyes: non-icteric ENT: oropharynx dry, other (orally intubated ETT 7.5cm @24 at the lip) Neck: supple, other (RIJCVL) Effort: mildly labored Ascultation: Bilateral: diminished breath sounds, rhonchi Percussion: Bilateral: not dull Cardiovascular: regular rate and rhythm, other (S1,S2) Gastrointestinal: hypoactive bowel sounds, soft, tender (mild), other (YURIDIA drains, anterior abdominal dressings, Doss catheter) Integumentary: normal, other (post-op changes) Extremities: no cyanosis, pulses normal, no ischemia or petechiae, edema Neurologic: non-focal exam, pupils equal and round, CN II-XII normal, motor strength normal and Psychiatric: mood appropriate, affect normal CBC and BMP: 10/12/21 Unknown 10/13/21 04:05 ABG, PT/INR, D-dimer: ABG ABG pH 7.505 pH Units (7.350-7.450) H 10/10/21 Unknown ABG pCO2 27.6 mm Hg 10/10/21 Unknown ABG pO2 246.1 mm Hg (80.0-90.0) H 10/10/21 Unknown ABG O2 Saturation 99.4 % (95.0-99.0) H 10/10/21 Unknown PT/INR, D-dimer PT 17.1 Sec. (12.2-14.9) H 10/12/21 06:02 INR 1.24 (0.87-1.13) H 10/12/21 06:02 D-Dimer > 14350 ng/mlDDU (0-234) H 10/09/21 08:45 Abnormal lab findings: Abnormal Labs 09/24/21 09/24/21 09/24/21 14:49 14:58 14:58 WBC 32.4 H RBC Hgb Hct MCH RDW Plt Count 535 H Gaines # (Auto) Seg Neutrophils % Seg Neuts % (Manual) 82.0 H Lymphocytes % (Manual) 2.0 L Monocytes % (Manual) Nucleated RBC % Seg Neutrophils # Seg Neutrophils # Man 26.6 H Lymphocytes # (Manual) 0.6 L Monocytes # (Manual) 1.6 H PT INR D-Dimer ABG pH ABG pO2 ABG HCO3 ABG O2 Saturation ABG Base Excess ABG Hemoglobin Oxyhemoglobin Sodium 134 L Potassium 3.5 L Chloride 97.6 L Carbon Dioxide BUN Creatinine Glucose 119 H POC Glucose Lactic Acid Calcium Phosphorus Magnesium Ferritin Lactate Dehydrogenase Total Creatine Kinase C-Reactive Protein Total Protein 6.1 L Albumin 3.3 L U Epithel Cells (Auto) 18.0 H Crossmatch 09/25/21 09/25/21 09/26/21 05:47 05:47 04:20 WBC 25.4 H 23.6 H RBC 3.54 L Hgb Hct MCH RDW Plt Count 466 H 486 H Gaines # (Auto) Seg Neutrophils % Seg Neuts % (Manual) 93.0 H 86.0 H Lymphocytes % (Manual) 4.0 L 3.0 L Monocytes % (Manual) Nucleated RBC % Seg Neutrophils # Seg Neutrophils # Man 23.6 H 20.3 H Lymphocytes # (Manual) 1.0 L 0.7 L Monocytes # (Manual) 0.9 H PT INR D-Dimer ABG pH ABG pO2 ABG HCO3 ABG O2 Saturation ABG Base Excess ABG Hemoglobin Oxyhemoglobin Sodium 136 L Potassium 3.0 L Chloride Carbon Dioxide 21 L BUN Creatinine Glucose POC Glucose Lactic Acid Calcium 7.8 L Phosphorus Magnesium Ferritin Lactate Dehydrogenase Total Creatine Kinase C-Reactive Protein Total Protein Albumin U Epithel Cells (Auto) Crossmatch 09/26/21 09/27/21 09/27/21 04:20 08:28 08:28 WBC 20.6 H RBC 3.42 L Hgb 9.9 L Hct 29.5 L D MCH RDW Plt Count Gaines # (Auto) Seg Neutrophils % Seg Neuts % (Manual) 94.1 H Lymphocytes % (Manual) 1.0 L Monocytes % (Manual) Nucleated RBC % Seg Neutrophils # Seg Neutrophils # Man 19.4 H Lymphocytes # (Manual) 0.2 L Monocytes # (Manual) PT INR D-Dimer ABG pH ABG pO2 ABG HCO3 ABG O2 Saturation ABG Base Excess ABG Hemoglobin Oxyhemoglobin Sodium Potassium 3.2 L Chloride Carbon Dioxide 20 L BUN Creatinine Glucose 137 H POC Glucose Lactic Acid Calcium 8.3 L 8.2 L Phosphorus Magnesium Ferritin Lactate Dehydrogenase Total Creatine Kinase C-Reactive Protein Total Protein Albumin U Epithel Cells (Auto) Crossmatch 09/28/21 09/28/21 09/29/21 04:55 15:35 07:02 WBC 15.1 H 16.5 H RBC 3.34 L 3.20 L Hgb 9.3 L 9.1 L Hct 28.7 L 27.3 L MCH RDW 15.3 H Plt Count 444 H 469 H Gaines # (Auto) 0.9 H Seg Neutrophils % 89.3 H Seg Neuts % (Manual) 88.0 H 80.0 H Lymphocytes % (Manual) 9.0 L 8.0 L Monocytes % (Manual) Nucleated RBC % Seg Neutrophils # 14.0 H Seg Neutrophils # Man 13.3 H 13.2 H Lymphocytes # (Manual) Monocytes # (Manual) PT INR D-Dimer ABG pH ABG pO2 ABG HCO3 ABG O2 Saturation ABG Base Excess ABG Hemoglobin Oxyhemoglobin Sodium Potassium 3.3 L Chloride 109.4 H Carbon Dioxide 20 L BUN Creatinine 0.5 L Glucose POC Glucose Lactic Acid Calcium 7.9 L Phosphorus Magnesium Ferritin Lactate Dehydrogenase Total Creatine Kinase C-Reactive Protein Total Protein Albumin U Epithel Cells (Auto) Crossmatch 09/30/21 09/30/21 10/01/21 05:40 05:40 07:49 WBC 17.4 H 17.9 H RBC 3.37 L 3.32 L Hgb 9.2 L 9.3 L Hct 28.4 L 28.3 L MCH 27 L RDW 15.4 H 15.5 H Plt Count 530 H 604 H Gaines # (Auto) Seg Neutrophils % Seg Neuts % (Manual) 91.0 H 72.0 H Lymphocytes % (Manual) 9.0 L 1.0 L Monocytes % (Manual) 8.0 H Nucleated RBC % 1.0 H Seg Neutrophils # Seg Neutrophils # Man 15.8 H 12.9 H Lymphocytes # (Manual) 0.2 L Monocytes # (Manual) 1.4 H PT INR D-Dimer ABG pH ABG pO2 ABG HCO3 ABG O2 Saturation ABG Base Excess ABG Hemoglobin Oxyhemoglobin Sodium Potassium 3.5 L Chloride Carbon Dioxide 21 L BUN Creatinine 0.5 L Glucose POC Glucose Lactic Acid Calcium 8.0 L Phosphorus Magnesium Ferritin Lactate Dehydrogenase Total Creatine Kinase C-Reactive Protein Total Protein Albumin U Epithel Cells (Auto) Crossmatch 10/01/21 10/01/21 10/02/21 07:49 10:45 05:41 WBC 23.2 H RBC 2.90 L Hgb 7.9 L Hct 24.8 L MCH 27 L RDW 15.3 H Plt Count 621 H Gaines # (Auto) Seg Neutrophils % Seg Neuts % (Manual) 88.0 H Lymphocytes % (Manual) 2.0 L Monocytes % (Manual) Nucleated RBC % Seg Neutrophils # Seg Neutrophils # Man 20.4 H Lymphocytes # (Manual) 0.5 L Monocytes # (Manual) 1.4 H PT INR D-Dimer ABG pH ABG pO2 ABG HCO3 ABG O2 Saturation ABG Base Excess ABG Hemoglobin Oxyhemoglobin Sodium Potassium Chloride Carbon Dioxide 20 L BUN Creatinine 0.5 L Glucose POC Glucose Lactic Acid Calcium 7.6 L Phosphorus Magnesium Ferritin Lactate Dehydrogenase Total Creatine Kinase C-Reactive Protein Total Protein Albumin U Epithel Cells (Auto) Crossmatch See Detail 10/02/21 10/02/21 10/02/21 05:41 07:47 11:10 WBC RBC Hgb Hct MCH RDW Plt Count Gaines # (Auto) Seg Neutrophils % Seg Neuts % (Manual) Lymphocytes % (Manual) Monocytes % (Manual) Nucleated RBC % Seg Neutrophils # Seg Neutrophils # Man Lymphocytes # (Manual) Monocytes # (Manual) PT INR D-Dimer ABG pH ABG pO2 ABG HCO3 ABG O2 Saturation ABG Base Excess ABG Hemoglobin Oxyhemoglobin Sodium Potassium Chloride Carbon Dioxide BUN Creatinine Glucose 130 H POC Glucose 145 H 120 H Lactic Acid Calcium 6.9 L Phosphorus Magnesium Ferritin Lactate Dehydrogenase Total Creatine Kinase C-Reactive Protein Total Protein Albumin U Epithel Cells (Auto) Crossmatch 10/02/21 10/03/21 10/03/21 16:14 04:55 04:55 WBC 26.1 H RBC 2.31 L Hgb 6.3 L Hct 19.8 L* MCH RDW 15.9 H Plt Count 598 H Gaines # (Auto) Seg Neutrophils % Seg Neuts % (Manual) 82.0 H Lymphocytes % (Manual) 1.0 L Monocytes % (Manual) 10.0 H Nucleated RBC % Seg Neutrophils # Seg Neutrophils # Man 21.4 H Lymphocytes # (Manual) 0.3 L Monocytes # (Manual) 2.6 H PT INR D-Dimer ABG pH ABG pO2 ABG HCO3 ABG O2 Saturation ABG Base Excess ABG Hemoglobin Oxyhemoglobin Sodium Potassium Chloride Carbon Dioxide BUN 22 H Creatinine 1.7 H D Glucose 145 H POC Glucose 109 H Lactic Acid Calcium 6.4 L Phosphorus Magnesium 2.40 H Ferritin Lactate Dehydrogenase Total Creatine Kinase C-Reactive Protein Total Protein 4.2 L Albumin 1.6 L U Epithel Cells (Auto) Crossmatch 10/03/21 10/03/21 10/03/21 07:15 11:49 17:06 WBC RBC Hgb Hct MCH RDW Plt Count Gaines # (Auto) Seg Neutrophils % Seg Neuts % (Manual) Lymphocytes % (Manual) Monocytes % (Manual) Nucleated RBC % Seg Neutrophils # Seg Neutrophils # Man Lymphocytes # (Manual) Monocytes # (Manual) PT INR D-Dimer ABG pH ABG pO2 ABG HCO3 ABG O2 Saturation ABG Base Excess ABG Hemoglobin Oxyhemoglobin Sodium Potassium Chloride Carbon Dioxide BUN Creatinine Glucose POC Glucose 162 H 171 H 174 H Lactic Acid Calcium Phosphorus Magnesium Ferritin Lactate Dehydrogenase Total Creatine Kinase C-Reactive Protein Total Protein Albumin U Epithel Cells (Auto) Crossmatch 10/03/21 10/04/21 10/04/21 23:31 04:44 04:44 WBC 26.4 H RBC 2.33 L Hgb 6.6 L Hct 19.4 L* MCH RDW 16.1 H Plt Count 602 H Gaines # (Auto) Seg Neutrophils % Seg Neuts % (Manual) 80.0 H Lymphocytes % (Manual) 5.0 L Monocytes % (Manual) Nucleated RBC % Seg Neutrophils # Seg Neutrophils # Man 21.1 H Lymphocytes # (Manual) Monocytes # (Manual) 1.8 H PT INR D-Dimer ABG pH ABG pO2 ABG HCO3 ABG O2 Saturation ABG Base Excess ABG Hemoglobin Oxyhemoglobin Sodium 135 L Potassium 3.4 L Chloride Carbon Dioxide 21 L BUN 28 H Creatinine 2.0 H Glucose 171 H POC Glucose 179 H Lactic Acid Calcium 6.7 L Phosphorus 1.30 L D Magnesium 2.40 H Ferritin Lactate Dehydrogenase Total Creatine Kinase C-Reactive Protein Total Protein Albumin U Epithel Cells (Auto) Crossmatch 10/04/21 10/04/21 10/04/21 05:25 12:01 13:30 WBC RBC Hgb Hct MCH RDW Plt Count Gaines # (Auto) Seg Neutrophils % Seg Neuts % (Manual) Lymphocytes % (Manual) Monocytes % (Manual) Nucleated RBC % Seg Neutrophils # Seg Neutrophils # Man Lymphocytes # (Manual) Monocytes # (Manual) PT INR D-Dimer ABG pH ABG pO2 ABG HCO3 ABG O2 Saturation ABG Base Excess ABG Hemoglobin Oxyhemoglobin Sodium Potassium Chloride Carbon Dioxide BUN Creatinine Glucose POC Glucose 174 H 172 H Lactic Acid Calcium Phosphorus Magnesium Ferritin Lactate Dehydrogenase Total Creatine Kinase C-Reactive Protein Total Protein Albumin U Epithel Cells (Auto) Crossmatch See Detail 10/04/21 10/04/21 10/04/21 16:47 20:28 22:23 WBC RBC Hgb 8.5 L Hct 25.1 L MCH RDW Plt Count Gaines # (Auto) Seg Neutrophils % Seg Neuts % (Manual) Lymphocytes % (Manual) Monocytes % (Manual) Nucleated RBC % Seg Neutrophils # Seg Neutrophils # Man Lymphocytes # (Manual) Monocytes # (Manual) PT INR D-Dimer ABG pH ABG pO2 ABG HCO3 ABG O2 Saturation ABG Base Excess ABG Hemoglobin Oxyhemoglobin Sodium Potassium Chloride Carbon Dioxide BUN Creatinine Glucose POC Glucose 135 H 152 H Lactic Acid Calcium Phosphorus Magnesium Ferritin Lactate Dehydrogenase Total Creatine Kinase C-Reactive Protein Total Protein Albumin U Epithel Cells (Auto) Crossmatch 10/05/21 10/05/21 10/05/21 04:40 04:40 04:40 WBC 24.7 H RBC 3.02 L Hgb 8.4 L Hct 25.5 L MCH RDW 16.2 H Plt Count 644 H Gaines # (Auto) Seg Neutrophils % Seg Neuts % (Manual) 91.0 H Lymphocytes % (Manual) 7.0 L Monocytes % (Manual) Nucleated RBC % Seg Neutrophils # Seg Neutrophils # Man 22.5 H Lymphocytes # (Manual) Monocytes # (Manual) PT 17.8 H INR 1.31 H D-Dimer ABG pH ABG pO2 ABG HCO3 ABG O2 Saturation ABG Base Excess ABG Hemoglobin Oxyhemoglobin Sodium 135 L Potassium Chloride Carbon Dioxide BUN 29 H Creatinine 2.1 H Glucose 156 H POC Glucose Lactic Acid Calcium 7.6 L Phosphorus 1.90 L D Magnesium Ferritin Lactate Dehydrogenase Total Creatine Kinase C-Reactive Protein Total Protein 5.2 L D Albumin 1.8 L U Epithel Cells (Auto) Crossmatch 10/05/21 10/05/21 10/05/21 05:08 18:17 23:37 WBC RBC Hgb Hct MCH RDW Plt Count Gaines # (Auto) Seg Neutrophils % Seg Neuts % (Manual) Lymphocytes % (Manual) Monocytes % (Manual) Nucleated RBC % Seg Neutrophils # Seg Neutrophils # Man Lymphocytes # (Manual) Monocytes # (Manual) PT INR D-Dimer ABG pH ABG pO2 ABG HCO3 ABG O2 Saturation ABG Base Excess ABG Hemoglobin Oxyhemoglobin Sodium Potassium Chloride Carbon Dioxide BUN Creatinine Glucose POC Glucose 156 H 119 H 130 H Lactic Acid Calcium Phosphorus Magnesium Ferritin Lactate Dehydrogenase Total Creatine Kinase C-Reactive Protein Total Protein Albumin U Epithel Cells (Auto) Crossmatch 10/06/21 10/06/21 10/06/21 04:27 05:27 05:27 WBC 23.4 H RBC 2.84 L Hgb 7.8 L Hct 23.9 L MCH RDW 16.2 H Plt Count 712 H Gaines # (Auto) Seg Neutrophils % Seg Neuts % (Manual) Lymphocytes % (Manual) Monocytes % (Manual) Nucleated RBC % Seg Neutrophils # Seg Neutrophils # Man Lymphocytes # (Manual) Monocytes # (Manual) PT INR D-Dimer ABG pH ABG pO2 ABG HCO3 ABG O2 Saturation ABG Base Excess ABG Hemoglobin Oxyhemoglobin Sodium 134 L Potassium Chloride Carbon Dioxide 20 L BUN 28 H Creatinine 1.9 H Glucose 132 H POC Glucose 132 H Lactic Acid Calcium 7.8 L Phosphorus Magnesium Ferritin Lactate Dehydrogenase Total Creatine Kinase 242 H C-Reactive Protein Total Protein Albumin U Epithel Cells (Auto) Crossmatch 10/06/21 10/06/21 10/06/21 16:40 20:50 23:39 WBC RBC Hgb Hct MCH RDW Plt Count Gaines # (Auto) Seg Neutrophils % Seg Neuts % (Manual) Lymphocytes % (Manual) Monocytes % (Manual) Nucleated RBC % Seg Neutrophils # Seg Neutrophils # Man Lymphocytes # (Manual) Monocytes # (Manual) PT INR D-Dimer ABG pH ABG pO2 ABG HCO3 ABG O2 Saturation ABG Base Excess ABG Hemoglobin Oxyhemoglobin Sodium Potassium Chloride Carbon Dioxide BUN Creatinine Glucose POC Glucose 133 H 116 H 132 H Lactic Acid Calcium Phosphorus Magnesium Ferritin Lactate Dehydrogenase Total Creatine Kinase C-Reactive Protein Total Protein Albumin U Epithel Cells (Auto) Crossmatch 10/07/21 10/07/21 10/07/21 05:09 05:13 09:43 WBC 22.3 H RBC 2.81 L Hgb 7.8 L Hct 24.0 L MCH RDW 16.5 H Plt Count 733 H Gaines # (Auto) Seg Neutrophils % Seg Neuts % (Manual) 85.0 H Lymphocytes % (Manual) 1.0 L Monocytes % (Manual) Nucleated RBC % Seg Neutrophils # Seg Neutrophils # Man 19.0 H Lymphocytes # (Manual) 0.2 L Monocytes # (Manual) 1.6 H PT INR D-Dimer ABG pH ABG pO2 ABG HCO3 ABG O2 Saturation ABG Base Excess ABG Hemoglobin Oxyhemoglobin Sodium 136 L Potassium Chloride Carbon Dioxide 20 L BUN 29 H Creatinine 1.9 H Glucose 140 H POC Glucose 139 H Lactic Acid Calcium 7.6 L Phosphorus Magnesium Ferritin Lactate Dehydrogenase Total Creatine Kinase C-Reactive Protein Total Protein Albumin U Epithel Cells (Auto) Crossmatch 10/07/21 10/07/21 10/08/21 11:38 17:44 00:20 WBC RBC Hgb Hct MCH RDW Plt Count Gaines # (Auto) Seg Neutrophils % Seg Neuts % (Manual) Lymphocytes % (Manual) Monocytes % (Manual) Nucleated RBC % Seg Neutrophils # Seg Neutrophils # Man Lymphocytes # (Manual) Monocytes # (Manual) PT INR D-Dimer ABG pH ABG pO2 ABG HCO3 ABG O2 Saturation ABG Base Excess ABG Hemoglobin Oxyhemoglobin Sodium Potassium Chloride Carbon Dioxide BUN Creatinine Glucose POC Glucose 126 H 113 H 129 H Lactic Acid Calcium Phosphorus Magnesium Ferritin Lactate Dehydrogenase Total Creatine Kinase C-Reactive Protein Total Protein Albumin U Epithel Cells (Auto) Crossmatch 10/08/21 10/08/21 10/08/21 05:26 05:26 05:29 WBC 21.8 H RBC 2.84 L Hgb 7.8 L Hct 24.1 L MCH 27 L RDW 16.5 H Plt Count 789 H Gaines # (Auto) Seg Neutrophils % Seg Neuts % (Manual) Lymphocytes % (Manual) Monocytes % (Manual) Nucleated RBC % Seg Neutrophils # Seg Neutrophils # Man Lymphocytes # (Manual) Monocytes # (Manual) PT INR D-Dimer ABG pH ABG pO2 ABG HCO3 ABG O2 Saturation ABG Base Excess ABG Hemoglobin Oxyhemoglobin Sodium 136 L Potassium Chloride Carbon Dioxide 20 L BUN 31 H Creatinine 1.7 H Glucose 134 H POC Glucose 123 H Lactic Acid Calcium 7.9 L Phosphorus 4.60 H D Magnesium Ferritin Lactate Dehydrogenase Total Creatine Kinase C-Reactive Protein Total Protein Albumin U Epithel Cells (Auto) Crossmatch 10/08/21 10/08/21 10/08/21 11:53 17:07 20:08 WBC RBC Hgb Hct MCH RDW Plt Count Gaines # (Auto) Seg Neutrophils % Seg Neuts % (Manual) Lymphocytes % (Manual) Monocytes % (Manual) Nucleated RBC % Seg Neutrophils # Seg Neutrophils # Man Lymphocytes # (Manual) Monocytes # (Manual) PT INR D-Dimer ABG pH 7.308 L ABG pO2 40.2 L ABG HCO3 15.7 L ABG O2 Saturation 68 L ABG Base Excess -9.6 L ABG Hemoglobin 9.7 L Oxyhemoglobin 67.8 L Sodium Potassium Chloride Carbon Dioxide BUN Creatinine Glucose POC Glucose 128 H 139 H Lactic Acid Calcium Phosphorus Magnesium Ferritin Lactate Dehydrogenase Total Creatine Kinase C-Reactive Protein Total Protein Albumin U Epithel Cells (Auto) Crossmatch 10/08/21 10/08/21 10/08/21 21:30 22:55 22:55 WBC RBC Hgb Hct MCH RDW Plt Count Gaines # (Auto) Seg Neutrophils % Seg Neuts % (Manual) Lymphocytes % (Manual) Monocytes % (Manual) Nucleated RBC % Seg Neutrophils # Seg Neutrophils # Man Lymphocytes # (Manual) Monocytes # (Manual) PT INR D-Dimer ABG pH ABG pO2 43.8 L ABG HCO3 19.5 L ABG O2 Saturation 70.7 L ABG Base Excess -5.3 L ABG Hemoglobin 8.6 L Oxyhemoglobin 69.4 L Sodium Potassium Chloride Carbon Dioxide BUN Creatinine Glucose POC Glucose Lactic Acid 2.50 H* Calcium Phosphorus Magnesium Ferritin Lactate Dehydrogenase Total Creatine Kinase C-Reactive Protein Total Protein Albumin U Epithel Cells (Auto) Crossmatch See Detail 10/09/21 10/09/21 10/09/21 03:12 05:31 05:31 WBC 20.3 H RBC 2.70 L Hgb 7.4 L Hct 23.1 L MCH 27 L RDW 16.6 H Plt Count 786 H Gaines # (Auto) Seg Neutrophils % Seg Neuts % (Manual) 88.0 H Lymphocytes % (Manual) 3.0 L Monocytes % (Manual) Nucleated RBC % Seg Neutrophils # Seg Neutrophils # Man 17.9 H Lymphocytes # (Manual) 0.6 L Monocytes # (Manual) 1.2 H PT INR D-Dimer ABG pH ABG pO2 ABG HCO3 ABG O2 Saturation ABG Base Excess ABG Hemoglobin Oxyhemoglobin Sodium 136 L Potassium Chloride Carbon Dioxide 20 L BUN 32 H Creatinine 1.5 H Glucose 214 H POC Glucose 190 H Lactic Acid Calcium 7.5 L Phosphorus Magnesium Ferritin Lactate Dehydrogenase Total Creatine Kinase C-Reactive Protein Total Protein 5.8 L Albumin 2.3 L U Epithel Cells (Auto) Crossmatch 10/09/21 10/09/21 10/09/21 05:31 05:31 05:31 WBC RBC Hgb Hct MCH RDW Plt Count Gaines # (Auto) Seg Neutrophils % Seg Neuts % (Manual) Lymphocytes % (Manual) Monocytes % (Manual) Nucleated RBC % Seg Neutrophils # Seg Neutrophils # Man Lymphocytes # (Manual) Monocytes # (Manual) PT INR D-Dimer ABG pH ABG pO2 ABG HCO3 ABG O2 Saturation ABG Base Excess ABG Hemoglobin Oxyhemoglobin Sodium Potassium Chloride Carbon Dioxide BUN Creatinine Glucose POC Glucose Lactic Acid 2.20 H* Calcium Phosphorus Magnesium Ferritin 751.9 H Lactate Dehydrogenase Total Creatine Kinase C-Reactive Protein 15.90 H Total Protein Albumin U Epithel Cells (Auto) Crossmatch 10/09/21 10/09/21 10/09/21 05:31 08:45 12:08 WBC RBC Hgb Hct MCH RDW Plt Count Gaines # (Auto) Seg Neutrophils % Seg Neuts % (Manual) Lymphocytes % (Manual) Monocytes % (Manual) Nucleated RBC % Seg Neutrophils # Seg Neutrophils # Man Lymphocytes # (Manual) Monocytes # (Manual) PT INR D-Dimer > 77175 H ABG pH ABG pO2 54.3 L ABG HCO3 ABG O2 Saturation 86.6 L ABG Base Excess -2.6 L ABG Hemoglobin 7.2 L Oxyhemoglobin 85.3 L Sodium Potassium Chloride Carbon Dioxide BUN Creatinine Glucose POC Glucose Lactic Acid Calcium Phosphorus Magnesium Ferritin Lactate Dehydrogenase 472 H Total Creatine Kinase C-Reactive Protein Total Protein Albumin U Epithel Cells (Auto) Crossmatch 10/09/21 10/09/21 10/10/21 12:19 17:43 00:30 WBC RBC Hgb Hct MCH RDW Plt Count Gaines # (Auto) Seg Neutrophils % Seg Neuts % (Manual) Lymphocytes % (Manual) Monocytes % (Manual) Nucleated RBC % Seg Neutrophils # Seg Neutrophils # Man Lymphocytes # (Manual) Monocytes # (Manual) PT INR D-Dimer ABG pH ABG pO2 ABG HCO3 ABG O2 Saturation ABG Base Excess ABG Hemoglobin Oxyhemoglobin Sodium Potassium Chloride Carbon Dioxide BUN Creatinine Glucose POC Glucose 151 H 136 H 132 H Lactic Acid Calcium Phosphorus Magnesium Ferritin Lactate Dehydrogenase Total Creatine Kinase C-Reactive Protein Total Protein Albumin U Epithel Cells (Auto) Crossmatch 10/10/21 10/10/21 10/10/21 04:10 04:10 05:41 WBC 20.8 H RBC 2.54 L Hgb 7.1 L Hct 21.8 L MCH RDW 16.6 H Plt Count 740 H Gaines # (Auto) Seg Neutrophils % Seg Neuts % (Manual) Lymphocytes % (Manual) Monocytes % (Manual) Nucleated RBC % Seg Neutrophils # Seg Neutrophils # Man Lymphocytes # (Manual) Monocytes # (Manual) PT INR D-Dimer ABG pH ABG pO2 ABG HCO3 ABG O2 Saturation ABG Base Excess ABG Hemoglobin Oxyhemoglobin Sodium 130 L Potassium Chloride 97.9 L Carbon Dioxide 19 L BUN 37 H Creatinine 1.4 H Glucose 181 H POC Glucose 150 H Lactic Acid Calcium 7.8 L Phosphorus Magnesium Ferritin Lactate Dehydrogenase Total Creatine Kinase C-Reactive Protein Total Protein Albumin U Epithel Cells (Auto) Crossmatch 10/10/21 10/10/21 10/10/21 11:10 16:00 23:50 WBC RBC Hgb Hct MCH RDW Plt Count Gaines # (Auto) Seg Neutrophils % Seg Neuts % (Manual) Lymphocytes % (Manual) Monocytes % (Manual) Nucleated RBC % Seg Neutrophils # Seg Neutrophils # Man Lymphocytes # (Manual) Monocytes # (Manual) PT INR D-Dimer ABG pH ABG pO2 ABG HCO3 ABG O2 Saturation ABG Base Excess ABG Hemoglobin Oxyhemoglobin Sodium Potassium Chloride Carbon Dioxide BUN Creatinine Glucose POC Glucose 136 H 151 H 129 H Lactic Acid Calcium Phosphorus Magnesium Ferritin Lactate Dehydrogenase Total Creatine Kinase C-Reactive Protein Total Protein Albumin U Epithel Cells (Auto) Crossmatch 10/10/21 10/11/21 10/11/21 Unknown 03:30 03:30 WBC 23.2 H RBC 2.39 L Hgb 6.7 L Hct 20.3 L MCH RDW 16.7 H Plt Count 701 H Gaines # (Auto) Seg Neutrophils % Seg Neuts % (Manual) Lymphocytes % (Manual) Monocytes % (Manual) Nucleated RBC % Seg Neutrophils # Seg Neutrophils # Man Lymphocytes # (Manual) Monocytes # (Manual) PT INR D-Dimer ABG pH 7.505 H ABG pO2 246.1 H ABG HCO3 ABG O2 Saturation 99.4 H ABG Base Excess ABG Hemoglobin 6.0 L Oxyhemoglobin Sodium 135 L Potassium Chloride Carbon Dioxide 20 L BUN 38 H Creatinine 1.6 H Glucose 118 H POC Glucose Lactic Acid Calcium 7.9 L Phosphorus Magnesium Ferritin Lactate Dehydrogenase Total Creatine Kinase C-Reactive Protein Total Protein Albumin U Epithel Cells (Auto) Crossmatch 10/11/21 10/11/21 10/12/21 11:41 17:51 00:18 WBC RBC Hgb Hct MCH RDW Plt Count Gaines # (Auto) Seg Neutrophils % Seg Neuts % (Manual) Lymphocytes % (Manual) Monocytes % (Manual) Nucleated RBC % Seg Neutrophils # Seg Neutrophils # Man Lymphocytes # (Manual) Monocytes # (Manual) PT INR D-Dimer ABG pH ABG pO2 ABG HCO3 ABG O2 Saturation ABG Base Excess ABG Hemoglobin Oxyhemoglobin Sodium Potassium Chloride Carbon Dioxide BUN Creatinine Glucose POC Glucose 128 H 138 H 174 H Lactic Acid Calcium Phosphorus Magnesium Ferritin Lactate Dehydrogenase Total Creatine Kinase C-Reactive Protein Total Protein Albumin U Epithel Cells (Auto) Crossmatch 10/12/21 10/12/21 10/12/21 05:39 06:02 06:02 WBC 19.1 H RBC 3.56 L Hgb 10.0 L D Hct MCH RDW 17.0 H Plt Count 712 H Gaines # (Auto) Seg Neutrophils % Seg Neuts % (Manual) Lymphocytes % (Manual) Monocytes % (Manual) Nucleated RBC % Seg Neutrophils # Seg Neutrophils # Man Lymphocytes # (Manual) Monocytes # (Manual) PT INR D-Dimer ABG pH ABG pO2 ABG HCO3 ABG O2 Saturation ABG Base Excess ABG Hemoglobin Oxyhemoglobin Sodium Potassium Chloride Carbon Dioxide BUN 37 H Creatinine 1.5 H Glucose 172 H POC Glucose 158 H Lactic Acid Calcium 8.1 L Phosphorus Magnesium Ferritin Lactate Dehydrogenase Total Creatine Kinase C-Reactive Protein Total Protein Albumin U Epithel Cells (Auto) Crossmatch 10/12/21 06:02 WBC RBC Hgb Hct MCH RDW Plt Count Gaines # (Auto) Seg Neutrophils % Seg Neuts % (Manual) Lymphocytes % (Manual) Monocytes % (Manual) Nucleated RBC % Seg Neutrophils # Seg Neutrophils # Man Lymphocytes # (Manual) Monocytes # (Manual) PT 17.1 H INR 1.24 H D-Dimer ABG pH ABG pO2 ABG HCO3 ABG O2 Saturation ABG Base Excess ABG Hemoglobin Oxyhemoglobin Sodium Potassium Chloride Carbon Dioxide BUN Creatinine Glucose POC Glucose Lactic Acid Calcium Phosphorus Magnesium Ferritin Lactate Dehydrogenase Total Creatine Kinase C-Reactive Protein Total Protein Albumin U Epithel Cells (Auto) Crossmatch Chest x-ray: image reviewed (tubes & lines in good posaition otherwise no acute process) Allied health notes reviewed: nursing
--- NOTE | 2021-10-12 09:14 | Progress Note ---
Assessment and Plan - Patient Problems (1) Acute respiratory failure with hypoxia Current Visit: Yes Status: Acute Plan to address problem: Patient intubated at this time. Ventilator management per ICU team. CT chest reviewed and concerning for worsening bilateral opacities secondary to pneumonia versus fluid overload and pulmonary edema. Responded well with lasix therapy and now down to Fio2 30 %. Agree with holding further lasix at this time as she remains non-oliguric with increased urine output. (2) Acute renal failure Current Visit: Yes Status: Acute Plan to address problem: Overall renal function has stabilized over the last couple of days. Will monitor closely. Avoid all nephrotoxins and maintain mean arterial pressures above 65 mmHg. (3) Appendicitis with perforation Current Visit: Yes Status: Acute Plan to address problem: Status post left hemicolectomy with appendectomy Complicated by CT evidence of extraluminal gas in a contained collection,s/p CT guided drainage today. Now with concerns of dehiscence of surgical suture lines in colon, pending ex- lap and diverting ileostomy. (4) Hypoalbuminemia due to protein-calorie malnutrition Current Visit: Yes Status: Acute Plan to address problem: Continuing on TPN at this time. (5) Hypokalemia Current Visit: Yes Status: Acute Plan to address problem: Replete per protocol. Subjective Date of service: 10/12/21 Principal diagnosis: Septic shock; AHRF; PNA; BRYANNA; s/p appendectomy; VRE infection; Peritonitis Interval history: Patient seen in the ICU, remains intubated, FIO2 30%. Excellent urine output. After abdominal drain placement, feculent matter was noted and patient underwent CT abdomen indicating extravasation of contrast from colon into LLQ secondary to dehiscence of surgical sutures and leak. Pending ex-lap today with diverting ileostomy. Objective - Vital Signs Vital signs: Vital Signs - 12hr 10/11/21 10/11/21 10/11/21 21:16 21:30 22:00 Temperature 98.1 F Pulse Rate 76 77 75 Pulse Rate [ From Monitor] Respiratory 15 14 14 Rate Blood Pressure 134/87 136/90 137/89 O2 Sat by Pulse 99 99 99 Oximetry 10/11/21 10/11/21 10/11/21 22:17 22:21 22:30 Temperature 98.0 F Pulse Rate 78 72 73 Pulse Rate [ From Monitor] Respiratory 17 14 13 Rate Blood Pressure 134/89 143/94 132/89 O2 Sat by Pulse 99 98 99 Oximetry 10/11/21 10/11/21 10/12/21 23:00 23:30 00:00 Temperature 98.2 F Pulse Rate 71 66 68 Pulse Rate [ 86 From Monitor] Respiratory 13 13 14 Rate Blood Pressure 122/83 119/80 124/79 O2 Sat by Pulse 99 99 99 Oximetry 10/12/21 10/12/21 10/12/21 00:30 01:00 01:30 Temperature Pulse Rate 65 67 66 Pulse Rate [ From Monitor] Respiratory 14 13 13 Rate Blood Pressure 119/78 123/83 129/86 O2 Sat by Pulse 100 99 99 Oximetry 10/12/21 10/12/21 10/12/21 02:00 02:30 03:00 Temperature Pulse Rate 63 65 63 Pulse Rate [ From Monitor] Respiratory 13 12 13 Rate Blood Pressure 120/83 121/83 130/84 O2 Sat by Pulse 100 99 100 Oximetry 10/12/21 10/12/21 10/12/21 03:30 03:48 04:00 Temperature 98 F Pulse Rate 58 L 64 80 Pulse Rate [ 86 From Monitor] Respiratory 12 20 Rate Blood Pressure 124/81 120/80 150/94 O2 Sat by Pulse 100 100 100 Oximetry 10/12/21 10/12/21 10/12/21 04:30 05:00 05:31 Temperature Pulse Rate 59 L 87 96 H Pulse Rate [ From Monitor] Respiratory 13 14 11 L Rate Blood Pressure 135/81 152/105 154/98 O2 Sat by Pulse 99 100 100 Oximetry 10/12/21 10/12/21 10/12/21 06:00 06:30 07:00 Temperature Pulse Rate 71 67 70 Pulse Rate [ From Monitor] Respiratory 14 17 14 Rate Blood Pressure 136/87 129/83 125/83 O2 Sat by Pulse 100 99 99 Oximetry 10/12/21 10/12/21 10/12/21 07:30 07:37 08:00 Temperature Pulse Rate 65 63 61 Pulse Rate [ From Monitor] Respiratory 13 13 Rate Blood Pressure 131/83 131/83 127/84 O2 Sat by Pulse 99 99 99 Oximetry 10/12/21 08:30 Temperature Pulse Rate 60 Pulse Rate [ From Monitor] Respiratory 15 Rate Blood Pressure 124/83 O2 Sat by Pulse 99 Oximetry - General Appearance General appearance: appears stated age, sedated on ventilator, intubated EENT: ATNC Neck: no JVD Respiratory: Present: Clear to Ascultation Cardiology: regular Gastrointestinal: normal Integumentary: no rash Neurologic: no focal deficit Musculoskeletal: deferred - Lab 10/12/21 06:02 10/12/21 06:02 Most recent lab results ABG pH 7.505 pH Units (7.350-7.450) H 10/10/21 Unknown ABG pCO2 27.6 mm Hg 10/10/21 Unknown ABG pO2 246.1 mm Hg (80.0-90.0) H 10/10/21 Unknown ABG HCO3 21.3 mmol/L (20.0-26.0) 10/10/21 Unknown ABG O2 Saturation 99.4 % (95.0-99.0) H 10/10/21 Unknown Calcium 8.1 mg/dL (8.4-10.2) L 10/12/21 06:02 Phosphorus 4.00 mg/dL (2.5-4.5) 10/12/21 06:02 Magnesium 2.00 mg/dL (1.7-2.3) 10/12/21 06:02 - Allied health notes Allied health notes reviewed: nursing Medications & Allergies - Medications Allergies/Adverse Reactions: Allergies No Known Allergies Allergy (Verified 09/24/21 12:21) Home Medications: Home Medications Medication Instructions Recorded Confirmed Last Taken Type No Known Home Medications [No 09/27/21 09/27/21 Unknown History Reported Home Medications] Active Medications: Generic Name Dose Route Start Last Admin Trade Name Freq PRN Reason Stop Dose Admin Acetaminophen 650 mg 10/08/21 21:38 Acetaminophen 325 Mg Tab PO Q6H PRN Pain, Mild (1-3) Albuterol 2.5 mg 09/24/21 18:07 Albuterol 2.5 Mg/3 Ml Nebu IH Q4HRT PRN Shortness Of Breath Dextrose 0 ml 10/03/21 12:37 Dextrose 10% *Hypoglycemia IV PRN PRN Hypoglycemia Diphenhydramine HCl 25 mg 10/04/21 15:14 10/07/21 00:34 Diphenhydramine 50 Mg/Ml Vial IV 25 mg Q6H PRN Administration Itching Famotidine 20 mg 10/08/21 22:00 10/11/21 21:27 Famotidine 20 Mg/2 Ml Inj IV 20 mg BID JAZ Administration Fentanyl 50 mcg 10/08/21 22:10 Fentanyl 100 Mcg/2 Ml Inj IV Q10MIN PRN ANALGESIA Heparin Sodium (Porcine) 5,000 unit 10/07/21 06:00 10/12/21 05:51 Heparin 5,000 Unit/1 Ml Vial SUB-Q 5,000 unit Q8HR JAZ Administration Hydromorphone HCl 0.25 mg 10/08/21 21:38 Hydromorphone 1 Mg/1 Ml Inj IV Q4H PRN Pain, Moderate (4-6) Hydrophilic Ointment 1 applic 10/08/21 21:00 Lip Therapy Vaseline TP Q2HR PRN Dry Lips Metronidazole 500 mg in 100 mls @ 100 mls/hr 10/02/21 16:00 10/12/21 00:22 Flagyl 500 Mg/100 Ml IV 100 mls/hr Q8H JAZ Administration Protocol Linezolid 600 mg in 300 mls @ 300 mls/hr 10/08/21 15:00 10/12/21 02:56 Zyvox 600mg/300ml IV 300 mls/hr Q12H JAZ Administration Protocol Propofol 1,000 mg in 100 mls @ 2.694 mls/hr 10/08/21 21:00 10/12/21 05:50 Diprivan 10 Mg/Ml IV 30 mcg/kg/min TITR JAZ 16.164 mls/hr Administration Protocol 5 MCG/KG/MIN Cefepime HCl 2 gm in 100 mls @ 200 mls/hr 10/08/21 22:00 10/11/21 21:27 Cefepime/Ns 2 Gm/100 Ml IV 200 mls/hr Q12H JAZ Administration Protocol Fentanyl Citrate 2,000 mcg in 100 mls @ 4.49 mls/hr 10/08/21 23:00 10/12/21 04:08 Fentanyl Drip Premix IV 4 mcg/kg/hr TITR JAZ 17.96 mls/hr Administration Protocol 1 MCG/KG/HR Vasopressin 20 unit/ Sodium 101 mls @ 9.09 mls/hr 10/08/21 23:00 10/09/21 14:30 Chloride IV 0 units/min TITR JAZ 0 mls/hr Titration Protocol 0.03 UNITS/MIN NORepinephrine/NS 8 MG-250 ML 8 mg in 250 mls @ 3.75 mls/hr 10/08/21 23:45 Norepinephrine/Ns 8 Mg-250 Ml (Double Conc) IV TITRATE JZA Protocol 2 MCG/MIN Amino Acids/Electrolytes/Dextrose 1,999.92 mls @ 83.3 mls/hr 10/11/21 20:00 10/11/21 20:42 Tpn Adult IV 10/12/21 19:59 83.3 mls/hr DAILY@2000 JAZ Administration Protocol Insulin Human Regular 0 units 10/10/21 00:00 10/12/21 05:51 Insulin Regular, Human 100 Units/1 Ml SUB-Q 2 units Q6HR JAZ Administration Protocol Labetalol HCl 10 mg 10/01/21 08:31 10/08/21 13:22 Labetalol 20 Mg/4 Ml Inj IV 10 mg Q6H PRN Administration Hypertension Multi-Ingred Cream/Lotion/Oil/Oint 1 applic 10/08/21 21:00 Mineral Oil/Petrolatum, White Ophth Oint 3.5 Gm OU Q4HR PRN Dry Eye(s) Naloxone HCl 0.1 mg 10/03/21 14:00 Naloxone 0.4 Mg/1 Ml Inj IV Q2MIN PRN Res Rate </= 8 or 02 SAT < 92% Ondansetron HCl 4 mg 09/24/21 18:07 10/05/21 11:39 Ondansetron 4 Mg/2 Ml Inj IV 4 mg Q8H PRN Administration Nausea And Vomiting Phenol 1 spray 10/02/21 13:00 10/03/21 10:23 Phenol 1.4% 177 Ml Bottle MM 1 spray PRN PRN Administration Sore Throat Scopolamine 1 each 10/04/21 10:00 10/10/21 09:53 Scopolamine Transdermal Patch 72 Hr TD 1 each Q3D JAZ Administration Sodium Chloride 10 ml 09/24/21 22:00 10/11/21 21:27 Sodium Chloride 0.9% 10 Ml Flush Syringe IV 10 ml BID JAZ Administration Sodium Chloride 10 ml 09/24/21 18:07 09/25/21 08:34 Sodium Chloride 0.9% 10 Ml Flush Syringe IV 10 ml PRN PRN Administration LINE FLUSH
--- NOTE | 2021-10-12 09:27 | Event Note ---
Date: 10/12/21 Plan ex lap and diverting ileostomy (GEN SURG) . Spoke with DRS. Huddleston & Catarina - -will try to do cysto at time of surgery called sister ---Madina Preston---no answer
[2021-10-12] MEDS: FAMOTIDINE 20 MG/2 ML INJ IV SCH ×2 (09:37→21:25)
[2021-10-12] MEDS: CEFEPIME/NS 2 GM/100 ML 2 GM/100 ML BAG IV SCH ×2 (09:37→21:25)
[2021-10-12] MEDS ORDERED: propofoL 200 MG/20 ML VIAL IV ONE (10:22)
[2021-10-12] MEDS ORDERED: LIDOCAINE (1%) 10 MG/1 ML VIAL 20 ML MDV ONE (10:43)
[2021-10-12] MEDS ORDERED: BUPIVACAINE/PF (0.5%) 5 MG/1 ML 30 ML VIAL INFILTRATI ONE (10:44)
--- NOTE | 2021-10-12 11:46 | Progress Note ---
Assessment and Plan Assessment and plan: This is a 31-year-old female with obesity and nephrolithiasis admitted with pericolonic abscess secondary to contained perforated diverticulitis, peritonitis complicated by acute blood loss anemia, acute kidney injury and acute hypoxic respiratory failure. Neuro: Sedated -Sedated with propofol and fentanyl -RASS goal 0 to -1 -Avoid delirium -Reorientation as needed -Maintain sleep-wake cycle -Daily SAT as appropriate -Bilateral soft restraints in place for patient safety Cardiac: NAD -Cardiology consulted, appreciate recommendations -Blood pressure monitoring per protocol -s/p pressor support with Levophed and vasopressin -MAP goal greater than 65 -Echocardiogram shows normal right ventricular function, LVEF 55 to 60% Respiratory: Acute hypoxic respiratory failure -CCM consulted, appreciate recommendations -Intubated s/p code met on 10/08 with 7.50 ETT at 24 the lips -A.m. vent settings: Assist-control rate 22, tidal line 425, PEEP 6, FiO2 30% -See RT notes for titration -A.m. 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, diverticulitis with abscess, moderate protein calorie malnutrition, h/o obesity -Surgery consulted, appreciate recommendations -S/p washout of pericolonic abscess on 09/26/2021 -S/p open left hemicolectomy, appendectomy and partial omentectomy on 10/01 -10/09 CT abdomen/pelvis showed a new collection of air within the left midabdomen -Scheduled for CT guided drain placement with IR -IR findings: Fluid collections abutting the colonic anastamosis and drain passed into the colon originally requiring retraction into the fluid collection, left mild to moderate hydronephrosis, 700 ml brown serous fluid from the mid abdominal drain (drain #1), 200 mL brown thick fluid from the left lateral drain (drain #2) -Per surgery: Patient's drain will be high output, will like to transfuse patient 2 units PRBC and create an ileostomy to divert anastomotic leak as early as tomorrow -24 hours: -2438 ml -Left lateral abdominal drain 130 -Left anterior abdominal drain 700 -PPI -TPN -NGT to LIS : Acute kidney injury secondary to vasomotor nephropathy versus contrast induced -Nephrology consulted, appreciate recommendations -Strict intake and output -Renally dose medications -Avoid nephrotoxic medications -Daily weights -s/p IV Lasix nephrology -Trend BMP ID: Acute sepsis secondary to pericolonic abscess with appendiceal rupture fistulization, peritonitis, VRE and jean marie albicans in wound culture -Infectious disease consulted, appreciate recommendations -COVID 19 PCR negative -S/p drain placement and diagnostic laparotomy on 09/26 -Antibiotic therapy with linezolid, Flagyl and cefepime -added fluconazole -f/u blood culture -Monitor WBC and temperature curve Endo: NAD -Avoid hypoglycemia -SSI -Accu-Cheks q6 -Long-acting insulin, titrate as needed Heme: Acute blood loss anemia, elevated D-dimer, gross hematuria (resolved), leukocytosis, thrombocytosis -Patient had hematuria after ureteral injury sustained from surgical procedures -Urology consulted, appreciate recommendation -10/09 CTA chest with no evidence of PE. Findings suggesting multifocal pneumonia vs pulmonary edema -Bilateral lower extremity Doppler ultrasound shows no sonographic evidence of DVT however shows subcutaneous edema in lower extremities -Trend CBC -Transfuse hemoglobin less than 7 -S/p 6 units PRBC -Monitor for signs of bleeding -SCDs to BLE while in bed -Heparin subq The high probability of a clinically significant, sudden or life threatening deterioration of the [multi] system(s) required my full and direct attention, intervention and personal management. The aggregate critical care time was [60] minutes. This time is in addition to time spent performing reported procedures but includes the following: [x] Data Review and interpretation [x] Patient assessment and monitoring of vital signs [x] Documentation [x] Medication orders and management Disposition Plan: icu Total Time Spent with Patient (Minutes): 60 History Interval history: This is a 31-year-old female with obesity and nephrolithiasis admitted with complaints of abdominal pain, lower back pain, nausea no with episodes of vomiting over the past dayon 09/24. Patient underwent a CT scan of the abdomen and pelvis and was found to have acute diverticulitis complicated by sepsis and was admitted to the medical floor initiated sepsis protocol. Surgery team was consulted in the emergency department. ICU Course to Date: 10/09: Intubated and sedated, RASS -1 to -2. Recent CXR noted with worsen bilateral opacities with persistent leukocytosis, elevated lactic, and now on 2 pressors. Patient remains afebrile, and already on IV Abx per ID. Will swab patient for COVID. Given recent surgery orders placed for CTA chest, CT Abd/plevis. And also BLE dopplers due to elevated D-Dimer. Renal function is improving, additional IVF to flush out kidney post contrast, Nephrology is also following. Continue TPN and NGT to LIS. 10/10: COVID PCR negative. CTA chest and Abd/plevis noted. No evidence of PE. Patient received X1 dose of 20mg IV lasix per Nephro for pulmonary edema, this am CXR with some improvement, renal function is also improving. Wean vent setting as tolerated per CCM. Plan for possible CT guided drainage placement in IR tomorrow. Continue TPN and NGT to LIS. 10/11: Patient with anemia, 1 unit PRBC, scheduled for CT-guided drain image of air pocket. Will place on CPAP on return. Slightly worsening renal function but nephrology is on the case. 10/12: Taken to OR today for diverting ileostomy, given 3 units PRBC yesterday and appropriate response. Surgical culture grew yeast and ID added added fluconazole. Hospitalist Physical - Physical exam Narrative exam: Unable to obtain as patient was off the floor to the OR - Constitutional Vitals: Temp Pulse Resp BP Pulse Ox 98 F 60 15 124/83 99 10/12/21 04:00 10/12/21 08:30 10/12/21 08:30 10/12/21 08:30 10/12/21 08:30 General appearance: Present: no acute distress, well-nourished, obese, other (Intubated and Sedated) Results - Labs CBC & Chem 7: 10/12/21 06:02 10/12/21 06:02 Labs: Laboratory Last Values WBC 19.1 K/mm3 (4.5-11.0) H 10/12/21 06:02 RBC 3.56 M/mm3 (3.65-5.03) L 10/12/21 06:02 Hgb 10.0 gm/dl (10.1-14.3) L D 10/12/21 06:02 Hct 31.0 % (30.3-42.9) D 10/12/21 06:02 MCV 87 fl (79-97) 10/12/21 06:02 MCH 28 pg (28-32) 10/12/21 06:02 MCHC 32 % (30-34) 10/12/21 06:02 RDW 17.0 % (13.2-15.2) H 10/12/21 06:02 Plt Count 712 K/mm3 (140-440) H 10/12/21 06:02 Esmeralda % (Auto) 5.9 % (0.0-7.3) 09/28/21 04:55 Eos % (Auto) 0.4 % (0.0-4.3) 09/28/21 04:55 Esmeralda # (Auto) 0.9 K/mm3 (0.0-0.8) H 09/28/21 04:55 Eos # (Auto) 0.1 K/mm3 (0.0-0.4) 09/28/21 04:55 Baso # (Auto) 0.0 K/mm3 (0.0-0.1) 09/28/21 04:55 Add Manual Diff Complete 10/09/21 05:31 Total Counted 100 10/09/21 05:31 Seg Neutrophils % Equipment Planner 10/03/21 04:55 Seg Neuts % (Manual) 88.0 % (40.0-70.0) H 10/09/21 05:31 Band Neutrophils % 0 % 10/09/21 05:31 Lymphocytes % (Manual) 3.0 % (13.4-35.0) L 10/09/21 05:31 Reactive Lymphs % (Man) 1.0 % 10/09/21 05:31 Monocytes % (Manual) 6.0 % (0.0-7.3) 10/09/21 05:31 Eosinophils % (Manual) 2.0 % (0.0-4.3) 10/09/21 05:31 Basophils % (Manual) 0 % (0.0-1.8) 10/09/21 05:31 Metamyelocytes % 0 % 10/09/21 05:31 Myelocytes % 0 % 10/09/21 05:31 Promyelocytes % 0 % 10/09/21 05:31 Blast Cells % 0 % 10/09/21 05:31 Nucleated RBC % Not Reportable 10/09/21 05:31 Seg Neutrophils # 14.0 K/mm3 (1.8-7.7) H 09/28/21 04:55 Seg Neutrophils # Man 17.9 K/mm3 (1.8-7.7) H 10/09/21 05:31 Band Neutrophils # 0.0 K/mm3 10/09/21 05:31 Lymphocytes # (Manual) 0.6 K/mm3 (1.2-5.4) L 10/09/21 05:31 Abs React Lymphs (Man) 0.2 K/mm3 10/09/21 05:31 Monocytes # (Manual) 1.2 K/mm3 (0.0-0.8) H 10/09/21 05:31 Eosinophils # (Manual) 0.4 K/mm3 (0.0-0.4) 10/09/21 05:31 Basophils # (Manual) 0.0 K/mm3 (0.0-0.1) 10/09/21 05:31 Metamyelocytes # 0.0 K/mm3 10/09/21 05:31 Myelocytes # 0.0 K/mm3 10/09/21 05:31 Promyelocytes # 0.0 K/mm3 10/09/21 05:31 Blast Cells # 0.0 K/mm3 10/09/21 05:31 Pathologist Review 09/24/21 14:58 WBC Morphology Not Reportable 10/09/21 05:31 Hypersegmented Neuts Not Reportable 10/09/21 05:31 Hyposegmented Neuts Not Reportable 10/09/21 05:31 Hypogranular Neuts Not Reportable 10/09/21 05:31 Smudge Cells Not Reportable 10/09/21 05:31 Toxic Granulation Not Reportable 10/09/21 05:31 Toxic Vacuolation Not Reportable 10/09/21 05:31 Dohle Bodies Not Reportable 10/09/21 05:31 Pelger-Huet Anomaly Not Reportable 10/09/21 05:31 Marlene Rods Not Reportable 10/09/21 05:31 Platelet Estimate Consistent w auto 10/09/21 05:31 Clumped Platelets Not Reportable 10/09/21 05:31 Plt Clumps, EDTA Not Reportable 10/09/21 05:31 Large Platelets Not Reportable 10/09/21 05:31 Giant Platelets Not Reportable 10/09/21 05:31 Platelet Satelliting Not Reportable 10/09/21 05:31 Plt Morphology Comment Not Reportable 10/09/21 05:31 RBC Morphology Not Reportable 10/09/21 05:31 Dimorphic RBCs Not Reportable 10/09/21 05:31 Polychromasia Not Reportable 10/09/21 05:31 Hypochromasia Not Reportable 10/09/21 05:31 Poikilocytosis Not Reportable 10/09/21 05:31 Anisocytosis 1+ 10/09/21 05:31 Microcytosis Not Reportable 10/09/21 05:31 Macrocytosis Not Reportable 10/09/21 05:31 Spherocytes Not Reportable 10/09/21 05:31 Pappenheimer Bodies Not Reportable 10/09/21 05:31 Sickle Cells Not Reportable 10/09/21 05:31 Target Cells Not Reportable 10/09/21 05:31 Tear Drop Cells Not Reportable 10/09/21 05:31 Ovalocytes Not Reportable 10/09/21 05:31 Helmet Cells Not Reportable 10/09/21 05:31 Navas-Wiley Bodies Not Reportable 10/09/21 05:31 George Rings Not Reportable 10/09/21 05:31 Anusha Cells Not Reportable 10/09/21 05:31 Bite Cells Not Reportable 10/09/21 05:31 Crenated Cell Not Reportable 10/09/21 05:31 Elliptocytes Not Reportable 10/09/21 05:31 Acanthocytes (Spur) Not Reportable 10/09/21 05:31 Rouleaux Not Reportable 10/09/21 05:31 Hemoglobin C Crystals Not Reportable 10/09/21 05:31 Schistocytes Not Reportable 10/09/21 05:31 Malaria parasites Not Reportable 10/09/21 05:31 Flaco Bodies Not Reportable 10/09/21 05:31 Hem Pathologist Commnt No 10/09/21 05:31 PT 17.1 Sec. (12.2-14.9) H 10/12/21 06:02 INR 1.24 (0.87-1.13) H 10/12/21 06:02 APTT 35.8 Sec. (24.2-36.6) 10/12/21 06:02 D-Dimer > 53808 ng/mlDDU (0-234) H 10/09/21 08:45 ABG pH 7.505 pH Units (7.350-7.450) H 10/10/21 Unknown ABG pCO2 27.6 mm Hg 10/10/21 Unknown ABG pO2 246.1 mm Hg (80.0-90.0) H 10/10/21 Unknown ABG HCO3 21.3 mmol/L (20.0-26.0) 10/10/21 Unknown ABG O2 Saturation 99.4 % (95.0-99.0) H 10/10/21 Unknown ABG O2 Content 8.9 (0.0-44) 10/10/21 Unknown ABG Base Excess -1.7 mmol/L (-2.0-3.0) 10/10/21 Unknown ABG Hemoglobin 6.0 gm/dl (12.0-16.0) L 10/10/21 Unknown ABG Carboxyhemoglobin 1.1 % (0.0-5.0) 10/10/21 Unknown ABG Methemoglobin 0.5 % (0.0-1.5) 10/10/21 Unknown Oxyhemoglobin 97.9 % (95.0-99.0) 10/10/21 Unknown FiO2 60 % 10/10/21 Unknown Sodium 138 mmol/L (137-145) 10/12/21 06:02 Potassium 3.9 mmol/L (3.6-5.0) 10/12/21 06:02 Chloride 104.1 mmol/L (98-107) 10/12/21 06:02 Carbon Dioxide 23 mmol/L (22-30) 10/12/21 06:02 Anion Gap 15 mmol/L 10/12/21 06:02 BUN 37 mg/dL (7-17) H 10/12/21 06:02 Creatinine 1.5 mg/dL (0.6-1.2) H 10/12/21 06:02 Estimated GFR 49 ml/min 10/12/21 06:02 BUN/Creatinine Ratio 25 % 10/12/21 06:02 Glucose 172 mg/dL (65-100) H 10/12/21 06:02 POC Glucose 158 mg/dL (70-105) H 10/12/21 05:39 Lactic Acid 1.80 mmol/L (0.7-2.0) 10/10/21 04:10 Calcium 8.1 mg/dL (8.4-10.2) L 10/12/21 06:02 Phosphorus 4.00 mg/dL (2.5-4.5) 10/12/21 06:02 Magnesium 2.00 mg/dL (1.7-2.3) 10/12/21 06:02 Ferritin 751.9 ng/mL (10.0-200.0) H 10/09/21 05:31 Total Bilirubin 0.30 mg/dL (0.1-1.2) 10/09/21 05:31 AST 26 units/L (5-40) 10/09/21 05:31 ALT 11 units/L (7-56) 10/09/21 05:31 Alkaline Phosphatase 63 units/L (35-129) 10/09/21 05:31 Lactate Dehydrogenase 472 units/L (91-180) H 10/09/21 05:31 Total Creatine Kinase 242 units/L (30-135) H 10/06/21 05:27 C-Reactive Protein 15.90 mg/dL (0.00-1.30) H 10/09/21 05:31 Total Protein 5.8 g/dL (6.3-8.2) L 10/09/21 05:31 Albumin 2.3 g/dL (3.9-5) L 10/09/21 05:31 Albumin/Globulin Ratio 0.7 % 10/09/21 05:31 Triglycerides 124 mg/dL (2-149) 10/11/21 03:30 Procalcitonin 12.98 ng/mL (<0.15) 10/09/21 05:31 Urine Color Yellow (Yellow) 09/24/21 14:49 Urine Turbidity Slightly-cloudy (Clear) 09/24/21 14:49 Urine pH 6.0 (5.0-7.0) 09/24/21 14:49 Ur Specific Rawson 1.017 (1.003-1.030) 09/24/21 14:49 Urine Protein 30 mg/dl mg/dL (Negative) 09/24/21 14:49 Urine Glucose (UA) Neg mg/dL (Negative) 09/24/21 14:49 Urine Ketones Neg mg/dL (Negative) 09/24/21 14:49 Urine Blood Neg (Negative) 09/24/21 14:49 Urine Nitrite Neg (Negative) 09/24/21 14:49 Ur Reducing Substances Not Reportable 09/24/21 14:49 Urine Bilirubin Neg (Negative) 09/24/21 14:49 Urine Ictotest Not Reportable 09/24/21 14:49 Urine Urobilinogen < 2.0 mg/dL (<2.0) 09/24/21 14:49 Ur Leukocyte Esterase Neg (Negative) 09/24/21 14:49 Urine WBC (Auto) 4.0 /HPF (0.0-6.0) 09/24/21 14:49 Urine RBC (Auto) 2.0 /HPF (0.0-6.0) 09/24/21 14:49 U Epithel Cells (Auto) 18.0 /HPF (0-13.0) H 09/24/21 14:49 Urine Mucus Few /HPF 09/24/21 14:49 Urine HCG, Qual Negative (Negative) 09/24/21 14:49 Coronavirus (PCR) Negative (Negative) 10/09/21 10:15 Blood Type A POSITIVE 10/12/21 06:05 Antibody Screen Negative 10/12/21 06:05 Crossmatch See Detail 10/08/21 22:55 Microbiology: Microbiology 10/11/21 Unknown Abdomen Surgical Culture - Preliminary 10/11/21 14:52 Abdomen Surgical Culture - Preliminary 10/08/21 22:55 Peripheral/Venous Blood Culture - Preliminary NO GROWTH AFTER 72 HOURS 10/08/21 23:30 Peripheral/Venous Blood Culture - Preliminary NO GROWTH AFTER 72 HOURS Doss/IV: Voiding Method Indwelling Catheter Active Medications - Current Medications Current Medications: Generic Name Dose Route Start Last Admin Trade Name Freq PRN Reason Stop Dose Admin Acetaminophen 650 mg 10/08/21 21:38 Acetaminophen 325 Mg Tab PO Q6H PRN Pain, Mild (1-3) Albuterol 2.5 mg 09/24/21 18:07 Albuterol 2.5 Mg/3 Ml Nebu IH Q4HRT PRN Shortness Of Breath Dextrose 0 ml 10/03/21 12:37 Dextrose 10% *Hypoglycemia IV PRN PRN Hypoglycemia Diphenhydramine HCl 25 mg 10/04/21 15:14 10/07/21 00:34 Diphenhydramine 50 Mg/Ml Vial IV 25 mg Q6H PRN Administration Itching Famotidine 20 mg 10/08/21 22:00 10/12/21 09:37 Famotidine 20 Mg/2 Ml Inj IV 20 mg BID JAZ Administration Fentanyl 50 mcg 10/08/21 22:10 Fentanyl 100 Mcg/2 Ml Inj IV Q10MIN PRN ANALGESIA Heparin Sodium (Porcine) 5,000 unit 10/07/21 06:00 10/12/21 05:51 Heparin 5,000 Unit/1 Ml Vial SUB-Q 5,000 unit Q8HR JAZ Administration Hydromorphone HCl 0.25 mg 10/08/21 21:38 Hydromorphone 1 Mg/1 Ml Inj IV Q4H PRN Pain, Moderate (4-6) Hydrophilic Ointment 1 applic 10/08/21 21:00 Lip Therapy Vaseline TP Q2HR PRN Dry Lips Metronidazole 500 mg in 100 mls @ 100 mls/hr 10/02/21 16:00 10/12/21 09:00 Flagyl 500 Mg/100 Ml IV 100 mls/hr Q8H JAZ Administration Protocol Linezolid 600 mg in 300 mls @ 300 mls/hr 10/08/21 15:00 10/12/21 02:56 Zyvox 600mg/300ml IV 300 mls/hr Q12H JAZ Administration Protocol Propofol 1,000 mg in 100 mls @ 2.694 mls/hr 10/08/21 21:00 10/12/21 05:50 Diprivan 10 Mg/Ml IV 30 mcg/kg/min TITR JAZ 16.164 mls/hr Administration Protocol 5 MCG/KG/MIN Cefepime HCl 2 gm in 100 mls @ 200 mls/hr 10/08/21 22:00 10/12/21 09:37 Cefepime/Ns 2 Gm/100 Ml IV 200 mls/hr Q12H JAZ Administration Protocol Fentanyl Citrate 2,000 mcg in 100 mls @ 4.49 mls/hr 10/08/21 23:00 10/12/21 09:35 Fentanyl Drip Premix IV 4 mcg/kg/hr TITR JAZ 17.96 mls/hr Administration Protocol 1 MCG/KG/HR Vasopressin 20 unit/ Sodium 101 mls @ 9.09 mls/hr 10/08/21 23:00 10/09/21 14:30 Chloride IV 0 units/min TITR JAZ 0 mls/hr Titration Protocol 0.03 UNITS/MIN NORepinephrine/NS 8 MG-250 ML 8 mg in 250 mls @ 3.75 mls/hr 10/08/21 23:45 Norepinephrine/Ns 8 Mg-250 Ml (Double Conc) IV TITRATE JAZ Protocol 2 MCG/MIN Amino Acids/Electrolytes/Dextrose 1,999.92 mls @ 83.3 mls/hr 10/11/21 20:00 10/11/21 20:42 Tpn Adult IV 10/12/21 19:59 83.3 mls/hr DAILY@2000 [facility] Administration Protocol Insulin Human Regular 0 units 10/10/21 00:00 10/12/21 05:51 Insulin Regular, Human 100 Units/1 Ml SUB-Q 2 units Q6HR JAZ Administration Protocol Labetalol HCl 10 mg 10/01/21 08:31 10/08/21 13:22 Labetalol 20 Mg/4 Ml Inj IV 10 mg Q6H PRN Administration Hypertension Multi-Ingred Cream/Lotion/Oil/Oint 1 applic 10/08/21 21:00 Mineral Oil/Petrolatum, White Ophth Oint 3.5 Gm OU Q4HR PRN Dry Eye(s) Naloxone HCl 0.1 mg 10/03/21 14:00 Naloxone 0.4 Mg/1 Ml Inj IV Q2MIN PRN Res Rate </= 8 or 02 SAT < 92% Ondansetron HCl 4 mg 09/24/21 18:07 10/05/21 11:39 Ondansetron 4 Mg/2 Ml Inj IV 4 mg Q8H PRN Administration Nausea And Vomiting Phenol 1 spray 10/02/21 13:00 10/03/21 10:23 Phenol 1.4% 177 Ml Bottle MM 1 spray PRN PRN Administration Sore Throat Scopolamine 1 each 10/04/21 10:00 10/10/21 09:53 Scopolamine Transdermal Patch 72 Hr TD 1 each Q3D JAZ Administration Sodium Chloride 10 ml 09/24/21 22:00 10/12/21 09:37 Sodium Chloride 0.9% 10 Ml Flush Syringe IV 10 ml BID JAZ Administration Sodium Chloride 10 ml 09/24/21 18:07 09/25/21 08:34 Sodium Chloride 0.9% 10 Ml Flush Syringe IV 10 ml PRN PRN Administration LINE FLUSH Nutrition/Malnutrition Assess - Dietary Evaluation Nutrition/Malnutrition Findings: Nutrition Notes Start: 09/25/21 15:31 Freq: Status: Active Protocol: Document 10/12/21 10:11 BIN (Rec: 10/12/21 10:49 BIN [email or web address]) Nutrition Notes Initial or Follow up Reassessment Current Diagnosis Acute Kidney Injury,Sepsis, Respiratory Failure, Malnutrition Other Pertinent Diagnosis s/p appendectomy w/R- hemicolectomy, PNA Labs/Tests 10/12: BUN 37, Crea 1.5, Glu 172, Ca 8.1. Pertinent Medications 10/12: Propofol @ 16.164 ml/hr (427 Kcal), others nutritionally unremarkable. Height 5 ft 7 in Weight 89.8 kg [place] Body Weight (kg) 61.36 BMI 31.0 Weight change and time frame 15.2 Kg Body Weight loss reported. RN will Wt Pt after procedure. Weight Status Obese Subjective/Other Information Day 10 PN. Pt still on Mechanical Ventilation. Pt underwent procedure on two drains placement which showed anastomosis staple line dehiscence. Pt will go procedure on 10/12: Ex-lap w/diverting ileostomy. Burn Absent Trauma Absent GI Symptoms Other Food Allergy No Skin Integrity/Comment Surgical wound Current % PO Other Minimum of two criteria No #1 Nutrition Diagnosis Altered GI function Diagnosis Progress(for reassessment Continues documentation) Is patient on ventilator? Yes Is Patient Ambulatory and/or Out of Bed No REE-([facility]-confined to bed) 1970.748 Kcal/Kg value to use for calculation 19 Approximate Energy Requirements Using 1706 kcal/Kg Calculation Used for Recommendations Kcal/kg Additional Notes Protein: 2 g/Kg; 123 g/day IBW . Fluids: 1 mL/Kcal, or as per MD. Nutrition Intervention Goal #1 Provide at least 75% of energy /protein needs through Enteral Feeding during LOS. Goal #2 Maintain body weight within +/ -3% of admission body weight during LOS. Follow-Up By: 10/13/21 Additional Comments Continue monitoring PPN tolerance and BM. BMP, Phos, Mg labs ordered.
--- NOTE | 2021-10-12 11:52 | Anesthesia Day of Surgery ---
Anesthesia Day of Surgery - Day of Surgery Patient Examined: Yes Patient H&P Reviewed: Yes Patient is NPO: Yes
--- NOTE | 2021-10-12 12:48 | Progress Note ---
Assessment and Plan Cultures: Blood culture no growth so far Wound culture VRE A/P: 31-year-old female past medical history obesity, nephrolithiasis now with: #Acute sepsis: Present with leukocytosis and tachycardia. Secondary to intra- abdominal infection #Acute hypoxic resp failure: fluid overload more likely, but possible pneumonia. #Pericolonic abscesses with appendiceal rupture and fistulization: Status post washout of abscesses, cultures now with VRE. #BRYANNA: Renally dose medications #Obesity Recs: -Changed to linezolid due to poor response/possible pneumonia. -Continue metronidazole. -Added fluconazole -Agree with addition of cefepime given hypoxic respiratory failure, though that may be secondary to volume overload. Thank you for the consult, we will continue to follow. Josefina Perry MD [facility] ([facility]) O: [phone] F: [phone] Subjective Date of service: 10/12/21 Principal diagnosis: Septic shock; AHRF; PNA; BRYANNA; s/p appendectomy; VRE infection; Peritonitis Interval history: Afebrile, white count slightly improved today now 19.1. Had repeat IR drainage yesterday, cultures now with Jo Ann Objective - Exam Narrative Exam: Physical Exam: Constitutional: Alert, cooperative. No acute distress Head, Ears, Nose: Normocephalic, atraumatic. External ears, nose normal Eyes: Conjunctivae/corneas clear. No icterus. No ptosis. Neck: Supple, no meningeal signs Oral: dentition fair, no thrush Cardiovascular: S1, S2 normal. Respiratory: Good air entry, clear to auscultation bilaterally GI: Appropriately tender postoperatively, YURIDIA drain in place Musculoskeletal: No pedal edema, no cyanosis. Skin: No rash or abscess Hem/Lymphatic: No palpable cervical or supraclavicular nodes. No lymphangitis Psych: Mood ok. Affect normal Neurological: Awake, alert, oriented. No gross abnormality - Constitutional Vitals: Vital Signs Temp Pulse Resp BP Pulse Ox 98 F 60 15 124/83 99 10/12/21 04:00 10/12/21 08:30 10/12/21 08:30 10/12/21 08:30 10/12/21 08:30 Temperature -Last 24 Hours Temperature 98 F Temperature 98.2 F Temperature 98.0 F Temperature 98.1 F Temperature 98 F Temperature 98 F Temperature 98.6 F Temperature 98 F Temperature 98 F Temperature 98.2 F Temperature 98 F - Labs CBC & Chem 7: 10/12/21 06:02 10/12/21 06:02 Labs: Abnormal lab results 10/08/21 10/11/21 10/12/21 Range/Units 22:55 17:51 00:18 WBC (4.5-11.0) K/mm3 RBC (3.65-5.03) M/mm3 Hgb (10.1-14.3) gm/dl RDW (13.2-15.2) % Plt Count (140-440) K/mm3 PT (12.2-14.9) Sec. INR (0.87-1.13) BUN (7-17) mg/dL Creatinine (0.6-1.2) mg/dL Glucose (65-100) mg/dL POC Glucose 138 H 174 H (70-105) mg/dL Calcium (8.4-10.2) mg/dL Crossmatch See Detail 10/12/21 10/12/21 10/12/21 Range/Units 05:39 06:02 06:02 WBC 19.1 H (4.5-11.0) K/mm3 RBC 3.56 L (3.65-5.03) M/mm3 Hgb 10.0 L D (10.1-14.3) gm/dl RDW 17.0 H (13.2-15.2) % Plt Count 712 H (140-440) K/mm3 PT (12.2-14.9) Sec. INR (0.87-1.13) BUN 37 H (7-17) mg/dL Creatinine 1.5 H (0.6-1.2) mg/dL Glucose 172 H (65-100) mg/dL POC Glucose 158 H (70-105) mg/dL Calcium 8.1 L (8.4-10.2) mg/dL Crossmatch 10/12/21 Range/Units 06:02 WBC (4.5-11.0) K/mm3 RBC (3.65-5.03) M/mm3 Hgb (10.1-14.3) gm/dl RDW (13.2-15.2) % Plt Count (140-440) K/mm3 PT 17.1 H (12.2-14.9) Sec. INR 1.24 H (0.87-1.13) BUN (7-17) mg/dL Creatinine (0.6-1.2) mg/dL Glucose (65-100) mg/dL POC Glucose (70-105) mg/dL Calcium (8.4-10.2) mg/dL Crossmatch
[2021-10-12] MEDS ORDERED: fentaNYL 250 MCG/5 ML INJ ONE (12:49)
[2021-10-12] MEDS ORDERED: FLUCONAZOLE 400 MG 200 ML IV SCH (13:00)
[2021-10-12] MEDS ORDERED: ROCURONIUM 50 MG/5 ML INJ IV ONE ×2 (13:07→13:09)
[2021-10-12] MEDS ORDERED: ONDANSETRON 4 MG/2 ML INJ ONE (13:13)
[2021-10-12] MEDS ORDERED: ALBUMIN HUMAN 5% (12.5 GM/250 ML) INJ IV ONE (13:33)
[2021-10-12] MEDS ORDERED: SODIUM CHLORIDE 0.9% IRR 1,500 ML BOTTLE IR ONE (13:56)
[2021-10-12] MEDS ORDERED: SODIUM CHLORIDE 0.9% 1000 ML 1,000 ML ONE ×2 (14:12→14:28)
[2021-10-12] MEDS ORDERED: HYDROmorphone 1 MG/1 ML INJ ONE (14:30)
[2021-10-12 14:44] LABS: Hematocrit 31.5 % (30.3-42.9)
--- NOTE | 2021-10-12 16:21 | Operative Report ---
Operative Report Operative Report: Date: October 12, 2021 Surgeon: Gosia Huddleston MD Co-surgeon: Edith Elmore DO Procedure:1. Exploratory laparotomy, 2. Lysis of adhesions, 3. Takedown of colorectal anastomosis, 4. Temporary closure of abdomen with ABThera wound VAC Anesthesia: General with endotracheal tube intubation Pre-Op diagnosis: Dehiscence of colorectal anastomosis Postop diagnosis: Same as preop Indication: Patient is 31-year-old female who initially presented to the hospital the emergency room little over 2 weeks ago with a pericolonic abscess from microperforation of diverticulitis. Patient had drainage of her contained abscess followed by a secondary procedure of left hemicolectomy with primary anastomosis when she did not clinically improve. After this procedure patient was slowly progressing when suddenly she declined. Abdominal CT showed findings consistent with dehiscence of her anastomosis with 2 intra-abdominal fluid collections that were drained by interventional radiology. Patient was consented via her mother for respiratory laparotomy, takedown of anastomosis today with colostomy. Details of procedure: Patient brought into the OR suite. Patient was already vented from the ICU. She was placed on the OR table and lithotomy position. Patient's abdomen was prepped and draped in sterile fashion. Urologist Dr. Kan performed a cystoscopy and nephrogram under fluoroscopic guidance. Details of his procedure in his note. After the cystogram with stent placement was complete patient's previous midline incision was opened up. There was noted to be extensive interloop adhesions with fibrinous rind and free enteric contents in the pelvis and left lower quadrant. The drain placed by interventional radiology and a previous YURIDIA drain were identified. The free fluid was suctioned. Over an hour was used to carefully lyse these adhesions to be able to mobilize the colon. There are a few serosal tears on the small bowel that were closed with 3-0 silk. Attention was then directed towards the colorectal anastomosis which was at least 50% dehisced. It was fully disconnected and the proximal end was brought up into the field. The cut end was sutured closed with 2-0 silk. A partial omentectomy from the transverse colon was performed as it was not viable. The rectal stump was then closed with a 2-0 silk as well. There was a segment of proximal small bowel with a pretty lengthy serosal tear, however it was difficult to mobilize into the field due to adhesions. The area that appeared thinnest was repaired with a 3-0 silk. It was decided this time to wash out her abdomen, and temporarily closed with an ABThera VAC to bring her back in 48 hours to do a second look. At that time of everything looks good we will bring up a colostomy and close her abdomen. Urology returned and looking the left retroperitoneum and believes that the area of concern for the left ureter is likely due to scar tissue that is compressing the ureter which is why was not visible on the cystogram. An ABThera VAC was then placed in standard fashion. Patient remained intubated was taken to ICU in stable condition. Specimen: Omentum EBL: Approximately 500 mL Findings: On cystogram left ureter was not continuously visible distal to proximal. Colorectal anastomosis was dehisced. Complications: None immediate
--- NOTE | 2021-10-12 16:22 | Post Anesthesia Evaluation ---
- Post Anesthesia Evaluation Patient Participated: No (sedated) Airway Patent: Yes Stable Respiratory Function: Yes Nausea/Vomiting: No (unable assess) Temp > 96.8F: Yes Pain Manageable: Yes (unable to assess; analgesic infusing) Adequeate Hydration: Yes Anesthesia Complications: No Patient on Ventilator: Yes (returned to preprocedure vent settings) Other Comments: Transported to ICU with monitors and O2 via Ambu/oETT. Handoff given to HOOKER OPERATOR at bedside w/ patient in stable condition.
--- NOTE | 2021-10-12 16:24 | Post Operative Note ---
Date of procedure: 10/12/21 Pre-op diagnosis: left hydro, gross hematuria Post-op diagnosis: same Findings: normal rt collecting system left with obstruction at midlevel ----close to drain open evaluation --- 2-3 cm woody inflammatory process with ureter embedded (midlevel) pt has rt external urteral catheter / left external catheter to level of obstruction Procedure: cysto, bilat rpg, bilat external ureteral catheter placement exploration left ureter Anesthesia: GETA Surgeon: JULIO CÉSAR RAMOS Estimated blood loss: none Pathology: none Condition: critical
--- NOTE | 2021-10-12 16:28 | Event Note ---
Date: 10/12/21 post op ---- informed mom (Marilyn Patel) of my findings
--- NOTE | 2021-10-12 17:28 | Operative Report ---
DATE OF SURGERY: 10/12/2021 PREOPERATIVE DIAGNOSES: 1. Gross hematuria. 2. Left hydronephrosis. POSTOPERATIVE DIAGNOSES: 1. Gross hematuria. 2. Left hydronephrosis. PROCEDURE PERFORMED: Cystoscopy, bilateral retrograde pyelograms, bilateral external ureteral catheter placement, open exploration of the left ureter. SURGEON: Sven Kan MD ANESTHESIA: General. Guarded position. INDICATIONS: This patient is a 31-year-old female found to have an abdominal abscess 2 weeks ago. Underwent surgical exploration by Dr. Huddleston. On her original CT with the abscess, she had left hydro. She was also noted to have some gross hematuria, which got Urology involved. We followed her conservatively; however, she developed signs of sepsis and General Surgery took her back and therefore, we presented for endoscopic evaluation. Consent was obtained by mother, Marilyn Patel. DESCRIPTION OF PROCEDURE: The patient was taken to the operative suite, placed in a supine position. After adequate general anesthesia, placed in the modified dorsal lithotomy position. Pancystourethroscopy was performed with a 22-Swazi Storz cystoscope, no urethral abnormalities. Bladder, no injury. Right retrograde pyelogram was obtained with an 8-Swazi Franklin catheter and 8 mL of contrast. No filling defects or obstruction. On the left side, there was a blockage at the mid ureter, multiple attempts to pass a wire on the left side were unsuccessful. A 5-Swazi open-ended catheter was placed all the way up to the kidney on the right. On the left side, it was cut and open-ended catheter was placed to the level of the blockage. A Doss catheter was placed. The catheters were then tied to a silk and connected to the Doss catheter. The rest of the procedure will be dictated by Dr. Huddleston under separate cover. I came back, I wanted to explore the upper ureter. There was an area of 2-3 cm of woody inflammation with the ureter was embedded in. At this point, I did not think it was prudent to try to dissect out such a large area, not be able to bridge the gap tension free. I therefore stopped at that point, we will reevaluate afterwards. The patient was taken to the recovery room. TID: [id number] RECEIPT: [id number] [facility]/JENN
[2021-10-12] MEDS ORDERED: TOTAL PARENTERAL NUTRITION 1,999.92 ML IV SCH (20:00)
[2021-10-13] MEDS: metroNIDAZOLE/NS 500 MG/100 ML 500 MG/100 ML BAG IV SCH ×4 (02:20→23:49)
[2021-10-13] MEDS: LINEZOLID 600 MG/300 ML BAG IV SCH ×2 (03:48→18:05)
--- NOTE | 2021-10-13 04:13 | XRay Report ---
CHEST 1 VIEW INDICATION / CLINICAL INFORMATION: follow up respiratory failure. COMPARISON: Chest x-ray 10/12/2021 FINDINGS: SUPPORT DEVICES: Endotracheal tube terminates immediately above the pablo. Right IJ central venous c atheter terminates superior vena cava, stable. Esophagogastric tube within the proximal to mid fundus . HEART / MEDIASTINUM: No significant interval change. LUNGS / PLEURA: Nonconsolidating opacities left suprahilar lung slightly increased from comparison. L ungs otherwise clear. No pneumothorax. ADDITIONAL FINDINGS: No significant additional findings. IMPRESSION: 1. Tubes and lines as detailed. Retraction of endotracheal tube about 2 cm could be considered for op timal positioning. 2. Minimal increase in left suprahilar opacities. Signer Name: Lukas Elizabeth II, MD Signed: 10/13/2021 4:09 AM Workstation Name: [id number]
[2021-10-13] MEDS: fentaNYL DRIP Premix 2,000 MCG/100 ML BAG IV SCH ×4 (05:13→19:12)
[2021-10-13] MEDS: HEPARIN 5,000 UNIT/1 ML VIAL SUB-Q SCH ×3 (05:35→13:30)
[2021-10-13] MEDS: INSULIN REGULAR, HUMAN 100 UNITS/1 ML SUB-Q SCH ×3 (05:35→18:07)
[2021-10-13 05:41] LABS: BUN/Creatinine Ratio 31; Blood Urea Nitrogen 34 mg/dL (7-17); Calcium 7.5 mg/dL (8.4-10.2); Hemolysis Index 9
--- NOTE | 2021-10-13 06:53 | Fluoroscopy Report ---
INTRAOPERATIVE FLUOROSCOPY: INDICATION / CLINICAL INFORMATION: GROSS HEMATURIA/LT HYDRONEPHROSIS. TECHNIQUE: Intraoperative spot images were obtained during the procedure. FINDINGS: Images acquired intraoperatively were interpreted by the operative physician at the time of acquisiti on. Fluoroscopy Time: 1.1 minutes. Total dose: mGy. Fluoroscopy Images: 9. Signer Name: Lukas Elizabeth II, MD Signed: 10/13/2021 6:49 AM Workstation Name: [id number]
[2021-10-13] MEDS ORDERED: MAGNESIUM SULFATE 4 GM/100 ML BAG IV SCH (08:00)
[2021-10-13] MEDS: FAMOTIDINE 20 MG/2 ML INJ IV SCH ×2 (09:14→21:39)
[2021-10-13] MEDS: CEFEPIME/NS 2 GM/100 ML 2 GM/100 ML BAG IV SCH ×2 (09:19→21:39)
[2021-10-13] MEDS: FLUCONAZOLE 400 MG 200 ML IV SCH (09:19)
[2021-10-13] MEDS: SCOPOLAMINE TRANSDERMAL PATCH 72 HR TD SCH (09:20)
[2021-10-13] MEDS: INSULIN GLARGINE 100 UNITS/ML SUB-Q SCH (09:25)
--- NOTE | 2021-10-13 10:05 | Progress Note ---
Assessment and Plan - Patient Problems (1) Acute respiratory failure with hypoxia Current Visit: Yes Status: Acute Plan to address problem: Patient intubated at this time. Ventilator management per ICU team. CT chest reviewed and concerning for worsening bilateral opacities secondary to pneumonia versus fluid overload and pulmonary edema. Responded well with lasix therapy and now down to Fio2 30 %. Agree with holding further lasix at this time as she remains non-oliguric with increased urine output. (2) Acute renal failure Current Visit: Yes Status: Acute Plan to address problem: Overall renal function has stabilized over the last couple of days. Will monitor closely. Avoid all nephrotoxins and maintain mean arterial pressures above 65 mmHg. She did undergo cystoscopy with bilateral retropyelogram along with bilateral external ureteral stent placement with adequate urine output noted in Doss postoperatively. We will continue to follow closely. (3) Appendicitis with perforation Current Visit: Yes Status: Acute Plan to address problem: Status post left hemicolectomy with appendectomy Complicated by CT evidence of extraluminal gas in a contained collection,s/p CT guided drainage. Now with concerns of dehiscence of surgical suture lines in colon,s/p ex-lap and diverting ileostomy. (4) Hypoalbuminemia due to protein-calorie malnutrition Current Visit: Yes Status: Acute Plan to address problem: Continuing on TPN at this time. (5) Hypokalemia Current Visit: Yes Status: Acute Plan to address problem: Replete per protocol. Subjective Date of service: 10/13/21 Principal diagnosis: Septic shock; AHRF; PNA; BRYANNA; s/p appendectomy; VRE infection; Peritonitis Interval history: Patient underwent exploratory laparotomy with lysis of adhesions and takedown of anastomosis with general surgery yesterday. She also underwent cystogram with retrograde pyelogram and bilateral external ureteral stent placement with urology. Doss catheter noted with blood-tinged urine this morning. Does show signs of clearing up. Renal function overall has been stable with no acute issues documented at this time. She remains nonoliguric at this time. Objective - Vital Signs Vital signs: Vital Signs - 12hr 10/12/21 10/12/21 10/12/21 22:30 23:00 23:05 Temperature Pulse Rate 94 H 95 H 97 H Pulse Rate [ From Monitor] Respiratory 16 16 17 Rate Respiratory Rate [Lower Abdomen] Blood Pressure 120/75 117/72 117/72 O2 Sat by Pulse 100 100 100 Oximetry 10/12/21 10/12/21 10/13/21 23:30 23:34 00:00 Temperature 97.5 F L Pulse Rate 106 H 101 H 100 H Pulse Rate [ 105 H From Monitor] Respiratory 19 15 Rate Respiratory Rate [Lower Abdomen] Blood Pressure 122/82 122/82 117/63 O2 Sat by Pulse 100 97 100 Oximetry 10/13/21 10/13/21 10/13/21 00:24 00:30 01:00 Temperature Pulse Rate 95 H 97 H Pulse Rate [ From Monitor] Respiratory 14 13 15 Rate Respiratory Rate [Lower Abdomen] Blood Pressure 108/68 105/63 O2 Sat by Pulse 100 100 Oximetry 10/13/21 10/13/21 10/13/21 01:30 02:00 02:30 Temperature Pulse Rate 99 H 99 H 101 H Pulse Rate [ From Monitor] Respiratory 14 15 14 Rate Respiratory Rate [Lower Abdomen] Blood Pressure 112/65 99/61 94/58 O2 Sat by Pulse 99 100 99 Oximetry 10/13/21 10/13/21 10/13/21 03:00 03:30 04:00 Temperature 98.6 F Pulse Rate 99 H 102 H 102 H Pulse Rate [ 105 H From Monitor] Respiratory 14 10 L 17 Rate Respiratory 16 Rate [Lower Abdomen] Blood Pressure 92/55 115/83 106/66 O2 Sat by Pulse 100 100 100 Oximetry 10/13/21 10/13/21 10/13/21 04:30 05:00 05:30 Temperature Pulse Rate 98 H 99 H 96 H Pulse Rate [ From Monitor] Respiratory 16 14 13 Rate Respiratory Rate [Lower Abdomen] Blood Pressure 107/61 109/64 116/69 O2 Sat by Pulse 100 100 100 Oximetry 10/13/21 10/13/21 10/13/21 06:00 07:18 08:10 Temperature 99.3 F Pulse Rate 100 H 97 H Pulse Rate [ From Monitor] Respiratory 15 Rate Respiratory Rate [Lower Abdomen] Blood Pressure 109/63 92/50 O2 Sat by Pulse 99 100 Oximetry - General Appearance General appearance: intubated EENT: ATNC Neck: no JVD Respiratory: Present: Clear to Ascultation Cardiology: regular Gastrointestinal: normal Integumentary: warm and dry Neurologic: no focal deficit Musculoskeletal: deferred - Lab 10/12/21 Unknown 10/13/21 04:05 Most recent lab results ABG pH 7.505 pH Units (7.350-7.450) H 10/10/21 Unknown ABG pCO2 27.6 mm Hg 10/10/21 Unknown ABG pO2 246.1 mm Hg (80.0-90.0) H 10/10/21 Unknown ABG HCO3 21.3 mmol/L (20.0-26.0) 10/10/21 Unknown ABG O2 Saturation 99.4 % (95.0-99.0) H 10/10/21 Unknown Calcium 7.5 mg/dL (8.4-10.2) L 10/13/21 04:05 Phosphorus 3.80 mg/dL (2.5-4.5) 10/13/21 04:05 Magnesium 1.60 mg/dL (1.7-2.3) L 10/13/21 04:05 - Imaging Chest x-ray: report reviewed - Allied health notes Allied health notes reviewed: nursing Medications & Allergies - Medications Allergies/Adverse Reactions: Allergies No Known Allergies Allergy (Verified 09/24/21 12:21) Home Medications: Home Medications Medication Instructions Recorded Confirmed Last Taken Type No Known Home Medications [No 09/27/21 09/27/21 Unknown History Reported Home Medications] Active Medications: Generic Name Dose Route Start Last Admin Trade Name Freq PRN Reason Stop Dose Admin Acetaminophen 650 mg 10/08/21 21:38 Acetaminophen 325 Mg Tab PO Q6H PRN Pain, Mild (1-3) Albuterol 2.5 mg 09/24/21 18:07 Albuterol 2.5 Mg/3 Ml Nebu IH Q4HRT PRN Shortness Of Breath Dextrose 0 ml 10/03/21 12:37 Dextrose 10% *Hypoglycemia IV PRN PRN Hypoglycemia Diphenhydramine HCl 25 mg 10/04/21 15:14 10/07/21 00:34 Diphenhydramine 50 Mg/Ml Vial IV 25 mg Q6H PRN Administration Itching Famotidine 20 mg 10/08/21 22:00 10/13/21 09:14 Famotidine 20 Mg/2 Ml Inj IV 20 mg BID JAZ Administration Fentanyl 50 mcg 10/08/21 22:10 Fentanyl 100 Mcg/2 Ml Inj IV Q10MIN PRN ANALGESIA Heparin Sodium (Porcine) 5,000 unit 10/07/21 06:00 10/13/21 05:35 Heparin 5,000 Unit/1 Ml Vial SUB-Q 5,000 unit Q8HR JAZ Administration Hydromorphone HCl 0.25 mg 10/08/21 21:38 Hydromorphone 1 Mg/1 Ml Inj IV Q4H PRN Pain, Moderate (4-6) Hydrophilic Ointment 1 applic 10/08/21 21:00 Lip Therapy Vaseline TP Q2HR PRN Dry Lips Metronidazole 500 mg in 100 mls @ 100 mls/hr 10/02/21 16:00 10/13/21 08:34 Flagyl 500 Mg/100 Ml IV 100 mls/hr Q8H JAZ Administration Protocol Linezolid 600 mg in 300 mls @ 300 mls/hr 10/08/21 15:00 10/13/21 03:48 Zyvox 600mg/300ml IV 300 mls/hr Q12H JAZ Administration Protocol Propofol 1,000 mg in 100 mls @ 2.694 mls/hr 10/08/21 21:00 10/13/21 06:52 Diprivan 10 Mg/Ml IV 25 mcg/kg/min TITR JAZ 13.47 mls/hr Titration Protocol 5 MCG/KG/MIN Cefepime HCl 2 gm in 100 mls @ 200 mls/hr 10/08/21 22:00 10/13/21 09:19 Cefepime/Ns 2 Gm/100 Ml IV 200 mls/hr Q12H JAZ Administration Protocol Fentanyl Citrate 2,000 mcg in 100 mls @ 4.49 mls/hr 10/08/21 23:00 10/13/21 09:55 Fentanyl Drip Premix IV 4 mcg/kg/hr TITR JAZ 17.96 mls/hr Administration Protocol 1 MCG/KG/HR Vasopressin 20 unit/ Sodium 101 mls @ 9.09 mls/hr 10/08/21 23:00 10/09/21 14:30 Chloride IV 0 units/min TITR JAZ 0 mls/hr Titration Protocol 0.03 UNITS/MIN NORepinephrine/NS 8 MG-250 ML 8 mg in 250 mls @ 3.75 mls/hr 10/08/21 23:45 Norepinephrine/Ns 8 Mg-250 Ml (Double Conc) IV TITRATE JAZ Protocol 2 MCG/MIN Amino Acids/Electrolytes/Dextrose 1,999.92 mls @ 83.33 mls/hr 10/12/21 20:00 10/12/21 20:47 Tpn Adult IV 10/13/21 19:59 83.33 mls/hr DAILY@2000 [facility] Administration Protocol Magnesium Sulfate 4 gm in 100 mls @ 25 mls/hr 10/13/21 08:00 10/13/21 08:40 Magnesium Sulfate 4gm/100ml IV 10/13/21 12:00 25 mls/hr ONCE@0800 JAZ Administration Fluconazole 200 mls @ 100 mls/hr 10/13/21 10:00 10/13/21 09:19 Diflucan IV 100 mls/hr Q24HR [facility] Administration Protocol Insulin Glargine 5 units 10/13/21 10:00 10/13/21 09:25 Insulin Glargine 100 Units/Ml SUB-Q 5 units QDAY [facility] Administration Insulin Human Regular 0 units 10/10/21 00:00 10/13/21 05:35 Insulin Regular, Human 100 Units/1 Ml SUB-Q 3 units Q6HR [facility] Administration Protocol Labetalol HCl 10 mg 10/01/21 08:31 10/12/21 16:58 Labetalol 20 Mg/4 Ml Inj IV 10 mg Q6H PRN Administration Hypertension Multi-Ingred Cream/Lotion/Oil/Oint 1 applic 10/08/21 21:00 Mineral Oil/Petrolatum, White Ophth Oint 3.5 Gm OU Q4HR PRN Dry Eye(s) Naloxone HCl 0.1 mg 10/03/21 14:00 Naloxone 0.4 Mg/1 Ml Inj IV Q2MIN PRN Res Rate </= 8 or 02 SAT < 92% Ondansetron HCl 4 mg 09/24/21 18:07 10/05/21 11:39 Ondansetron 4 Mg/2 Ml Inj IV 4 mg Q8H PRN Administration Nausea And Vomiting Phenol 1 spray 10/02/21 13:00 10/03/21 10:23 Phenol 1.4% 177 Ml Bottle MM 1 spray PRN PRN Administration Sore Throat Scopolamine 1 each 10/04/21 10:00 10/13/21 09:20 Scopolamine Transdermal Patch 72 Hr TD 1 each Q3D JAZ Administration Sodium Chloride 10 ml 09/24/21 22:00 10/13/21 09:20 Sodium Chloride 0.9% 10 Ml Flush Syringe IV 10 ml BID JAZ Administration Sodium Chloride 10 ml 09/24/21 18:07 09/25/21 08:34 Sodium Chloride 0.9% 10 Ml Flush Syringe IV 10 ml PRN PRN Administration LINE FLUSH
--- NOTE | 2021-10-13 10:49 | Progress Note ---
Subjective Date of service: 10/13/21 Principal diagnosis: Septic shock; AHRF; PNA; BRYANNA; s/p appendectomy; VRE infection; Peritonitis Interval history: new to our service hematuria ICU 31 YO Female with Obesity presented to ED---Patient reports "I'm hurting". Patient states that she has experienced abdominal pain, lower back pain, nausea, and multiple episodes of vomiting over the past 1 day. Patient transported to [facility] via private vehicle for further care and evaluation of the aforementioned symptoms. The patient was seen and evaluated in the emergency department. All lab and imaging studies reviewed. Patient underwent CT scan of the abdomen and pelvis and was found to have acute diverticulitis complicated by sepsis. Patient admitted to medical floor and initiated on sepsis protocol. Surgery team consulted in ED. Patient denies fever, chills, chest pain, palpitation, productive cough, skin rash, recent ill contacts, ingestion of food/water from new or different sources, or known exposure to COVID-19. No prior admission for review. No medication listed at time of admission for reconciliation. status post laparoscopic converted to open left hemicolectomy with appendectomy for perforated appendicitis with fistulization to sigmoid colon this admission (Dr. Huddleston) 10-12-21 -Exploratory laparotomy, 2. Lysis of adhesions, 3. Takedown of colorectal anastomosis, 4. Temporary closure of abdomen with ABThera wound VAC - Dr. Huddleston - cysto, bilat rpg, bilat external ureteral catheter placement - Dr. Kan father at bedside today (pt has a step father also)-- informed of urologic findings - may need left nephrostomy tube--trend for now CTAP )09-30-21)--normal gu tract RENAL US---NORMAL (10-07-21) abd - clean dressing urine appears concentrated -- removed ureteral catheters- --brantley draining concentrated urine A/P left ureteral obstruction - trend, may need perc Objective - Constitutional Vitals: Vital Signs - 12hr 10/12/21 10/12/21 10/12/21 23:00 23:05 23:30 Temperature Pulse Rate 95 H 97 H 106 H Pulse Rate [ From Monitor] Respiratory 16 17 19 Rate Respiratory Rate [Lower Abdomen] Blood Pressure 117/72 117/72 122/82 O2 Sat by Pulse 100 100 100 Oximetry 10/12/21 10/13/21 10/13/21 23:34 00:00 00:24 Temperature 97.5 F L Pulse Rate 101 H 100 H Pulse Rate [ 105 H From Monitor] Respiratory 15 14 Rate Respiratory Rate [Lower Abdomen] Blood Pressure 122/82 117/63 O2 Sat by Pulse 97 100 Oximetry 10/13/21 10/13/21 10/13/21 00:30 01:00 01:30 Temperature Pulse Rate 95 H 97 H 99 H Pulse Rate [ From Monitor] Respiratory 13 15 14 Rate Respiratory Rate [Lower Abdomen] Blood Pressure 108/68 105/63 112/65 O2 Sat by Pulse 100 100 99 Oximetry 10/13/21 10/13/21 10/13/21 02:00 02:30 03:00 Temperature Pulse Rate 99 H 101 H 99 H Pulse Rate [ From Monitor] Respiratory 15 14 14 Rate Respiratory Rate [Lower Abdomen] Blood Pressure 99/61 94/58 92/55 O2 Sat by Pulse 100 99 100 Oximetry 10/13/21 10/13/21 10/13/21 03:30 04:00 04:30 Temperature 98.6 F Pulse Rate 102 H 102 H 98 H Pulse Rate [ 105 H From Monitor] Respiratory 10 L 17 16 Rate Respiratory 16 Rate [Lower Abdomen] Blood Pressure 115/83 106/66 107/61 O2 Sat by Pulse 100 100 100 Oximetry 10/13/21 10/13/21 10/13/21 05:00 05:30 06:00 Temperature Pulse Rate 99 H 96 H 100 H Pulse Rate [ From Monitor] Respiratory 14 13 15 Rate Respiratory Rate [Lower Abdomen] Blood Pressure 109/64 116/69 109/63 O2 Sat by Pulse 100 100 99 Oximetry 10/13/21 10/13/21 07:18 08:10 Temperature 99.3 F Pulse Rate 97 H Pulse Rate [ From Monitor] Respiratory Rate Respiratory Rate [Lower Abdomen] Blood Pressure 92/50 O2 Sat by Pulse 100 Oximetry - Labs CBC & Chem 7: 10/12/21 Unknown 10/13/21 04:05 Labs: Abnormal lab results 10/12/21 10/12/21 10/12/21 Range/Units 17:43 23:28 Unknown Hgb 10.0 L (10.1-14.3) gm/dl BUN (7-17) mg/dL Glucose (65-100) mg/dL POC Glucose 173 H 178 H (70-105) mg/dL Calcium (8.4-10.2) mg/dL Magnesium (1.7-2.3) mg/dL 10/13/21 10/13/21 Range/Units 04:05 05:09 Hgb (10.1-14.3) gm/dl BUN 34 H (7-17) mg/dL Glucose 200 H (65-100) mg/dL POC Glucose 210 H (70-105) mg/dL Calcium 7.5 L (8.4-10.2) mg/dL Magnesium 1.60 L (1.7-2.3) mg/dL Medications & Allergies - Medications Allergies/Adverse Reactions: Allergies No Known Allergies Allergy (Verified 09/24/21 12:21) Home Medications: Home Medications Medication Instructions Recorded Confirmed Last Taken Type No Known Home Medications [No 09/27/21 09/27/21 Unknown History Reported Home Medications] Active Medications: Generic Name Dose Route Start Last Admin Trade Name Freq PRN Reason Stop Dose Admin Acetaminophen 650 mg 10/08/21 21:38 Acetaminophen 325 Mg Tab PO Q6H PRN Pain, Mild (1-3) Albuterol 2.5 mg 09/24/21 18:07 Albuterol 2.5 Mg/3 Ml Nebu IH Q4HRT PRN Shortness Of Breath Dextrose 0 ml 10/03/21 12:37 Dextrose 10% *Hypoglycemia IV PRN PRN Hypoglycemia Diphenhydramine HCl 25 mg 10/04/21 15:14 10/07/21 00:34 Diphenhydramine 50 Mg/Ml Vial IV 25 mg Q6H PRN Administration Itching Famotidine 20 mg 10/08/21 22:00 10/13/21 09:14 Famotidine 20 Mg/2 Ml Inj IV 20 mg BID JAZ Administration Fentanyl 50 mcg 10/08/21 22:10 Fentanyl 100 Mcg/2 Ml Inj IV Q10MIN PRN ANALGESIA Heparin Sodium (Porcine) 5,000 unit 10/07/21 06:00 10/13/21 05:35 Heparin 5,000 Unit/1 Ml Vial SUB-Q 5,000 unit Q8HR JAZ Administration Hydromorphone HCl 0.25 mg 10/08/21 21:38 Hydromorphone 1 Mg/1 Ml Inj IV Q4H PRN Pain, Moderate (4-6) Hydrophilic Ointment 1 applic 10/08/21 21:00 Lip Therapy Vaseline TP Q2HR PRN Dry Lips Metronidazole 500 mg in 100 mls @ 100 mls/hr 10/02/21 16:00 10/13/21 08:34 Flagyl 500 Mg/100 Ml IV 100 mls/hr Q8H JAZ Administration Protocol Linezolid 600 mg in 300 mls @ 300 mls/hr 10/08/21 15:00 10/13/21 03:48 Zyvox 600mg/300ml IV 300 mls/hr Q12H JAZ Administration Protocol Propofol 1,000 mg in 100 mls @ 2.694 mls/hr 10/08/21 21:00 10/13/21 06:52 Diprivan 10 Mg/Ml IV 25 mcg/kg/min TITR JAZ 13.47 mls/hr Titration Protocol 5 MCG/KG/MIN Cefepime HCl 2 gm in 100 mls @ 200 mls/hr 10/08/21 22:00 10/13/21 09:19 Cefepime/Ns 2 Gm/100 Ml IV 200 mls/hr Q12H JAZ Administration Protocol Fentanyl Citrate 2,000 mcg in 100 mls @ 4.49 mls/hr 10/08/21 23:00 10/13/21 09:55 Fentanyl Drip Premix IV 4 mcg/kg/hr TITR JAZ 17.96 mls/hr Administration Protocol 1 MCG/KG/HR Vasopressin 20 unit/ Sodium 101 mls @ 9.09 mls/hr 10/08/21 23:00 10/09/21 14:30 Chloride IV 0 units/min TITR JAZ 0 mls/hr Titration Protocol 0.03 UNITS/MIN NORepinephrine/NS 8 MG-250 ML 8 mg in 250 mls @ 3.75 mls/hr 10/08/21 23:45 Norepinephrine/Ns 8 Mg-250 Ml (Double Conc) IV TITRATE JAZ Protocol 2 MCG/MIN Amino Acids/Electrolytes/Dextrose 1,999.92 mls @ 83.33 mls/hr 10/12/21 20:00 10/12/21 20:47 Tpn Adult IV 10/13/21 19:59 83.33 mls/hr DAILY@2000 JAZ Administration Protocol Magnesium Sulfate 4 gm in 100 mls @ 25 mls/hr 10/13/21 08:00 10/13/21 08:40 Magnesium Sulfate 4gm/100ml IV 10/13/21 12:00 25 mls/hr ONCE@0800 JAZ Administration Fluconazole 200 mls @ 100 mls/hr 10/13/21 10:00 10/13/21 09:19 Diflucan IV 100 mls/hr Q24HR JAZ Administration Protocol Insulin Glargine 5 units 10/13/21 10:00 10/13/21 09:25 Insulin Glargine 100 Units/Ml SUB-Q 5 units QDAY JAZ Administration Insulin Human Regular 0 units 10/10/21 00:00 10/13/21 05:35 Insulin Regular, Human 100 Units/1 Ml SUB-Q 3 units Q6HR JAZ Administration Protocol Labetalol HCl 10 mg 10/01/21 08:31 10/12/21 16:58 Labetalol 20 Mg/4 Ml Inj IV 10 mg Q6H PRN Administration Hypertension Multi-Ingred Cream/Lotion/Oil/Oint 1 applic 10/08/21 21:00 Mineral Oil/Petrolatum, White Ophth Oint 3.5 Gm OU Q4HR PRN Dry Eye(s) Naloxone HCl 0.1 mg 10/03/21 14:00 Naloxone 0.4 Mg/1 Ml Inj IV Q2MIN PRN Res Rate </= 8 or 02 SAT < 92% Ondansetron HCl 4 mg 09/24/21 18:07 10/05/21 11:39 Ondansetron 4 Mg/2 Ml Inj IV 4 mg Q8H PRN Administration Nausea And Vomiting Phenol 1 spray 10/02/21 13:00 10/03/21 10:23 Phenol 1.4% 177 Ml Bottle MM 1 spray PRN PRN Administration Sore Throat Scopolamine 1 each 10/04/21 10:00 10/13/21 09:20 Scopolamine Transdermal Patch 72 Hr TD 1 each Q3D JAZ Administration Sodium Chloride 10 ml 09/24/21 22:00 10/13/21 09:20 Sodium Chloride 0.9% 10 Ml Flush Syringe IV 10 ml BID JAZ Administration Sodium Chloride 10 ml 09/24/21 18:07 09/25/21 08:34 Sodium Chloride 0.9% 10 Ml Flush Syringe IV 10 ml PRN PRN Administration LINE FLUSH
--- NOTE | 2021-10-13 11:15 | Progress Note ---
Assessment and Plan Assessment and plan: This is a 31-year-old female with obesity and nephrolithiasis admitted with pericolonic abscess secondary to contained perforated diverticulitis, peritonitis complicated by acute blood loss anemia, acute kidney injury and acute hypoxic respiratory failure. Neuro: Sedated -Sedated with propofol and fentanyl -RASS goal 0 to -1 -Avoid delirium -Reorientation as needed -Maintain sleep-wake cycle -Daily SAT as appropriate -Bilateral soft restraints in place for patient safety Cardiac: NAD -Blood pressure monitoring per protocol -s/p vasopressor support with Levophed and vasopressin -MAP goal greater than 65 -Echocardiogram shows normal right ventricular function, LVEF 55 to 60% Respiratory: Acute hypoxic respiratory failure -CCM consulted, appreciate recommendations -Intubated s/p code met on 10/08 with 7.50 ETT at 24 the lips -A.m. vent settings: Assist-control rate 12, tidal volume 425, PEEP 6, FiO2 30% -See RT notes for titration -A.m. 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, diverticulitis with abscess, moderate protein calorie malnutrition, h/o obesity -Surgery consulted, appreciate recommendations -S/p washout of pericolonic abscess on 09/26/2021 -S/p open left hemicolectomy, appendectomy and partial omentectomy on 10/01 -10/09 CT abdomen/pelvis showed a new collection of air within the left midabdomen -Scheduled for CT guided drain placement with IR -IR findings: Fluid collections abutting the colonic anastamosis and drain passed into the colon originally requiring retraction into the fluid collection, left mild to moderate hydronephrosis, 700 ml brown serous fluid from the mid abdominal drain (drain #1), 200 mL brown thick fluid from the left lateral drain (drain #2) -Per surgery: Patient's drain will be high output, will like to transfuse patient 2 units PRBC and create an ileostomy to divert anastomotic leak as early as tomorrow -24 hours: -1172 ml -Left lateral abdominal drain 0 -Left anterior abdominal drain 515 -MLA wound vac -PPI -TPN -NGT to LIS : Acute kidney injury secondary to vasomotor nephropathy versus contrast induced, hypomagnesemia, ? Bladder injury -Nephrology and urology consulted, appreciate recommendations -Strict intake and output -Renally dose medications -Avoid nephrotoxic medications -Daily weights -s/p IV Lasix nephrology -Trend BMP -Repeat magnesium -S/p bilateral ureteral stents -10/12 Intra-Op cystoscopy completed and bilateral ureteral stents placed ID: Acute sepsis secondary to pericolonic abscess with appendiceal rupture fistulization, peritonitis, VRE and jean marie albicans in wound culture -Infectious disease consulted, appreciate recommendations -COVID 19 PCR negative -S/p drain placement and diagnostic laparotomy on 09/26 -Antibiotic therapy with linezolid, Flagyl, cefepime and fluconazole -f/u blood culture -Monitor WBC and temperature curve Endo: NAD -Avoid hypoglycemia -SSI -Accu-Cheks q6 -Long-acting insulin, titrate as needed Heme: Acute blood loss anemia, elevated D-dimer, gross hematuria, leukocytosis, thrombocytosis -Patient had hematuria after ureteral injury sustained from surgical procedures -Urology consulted, appreciate recommendation -10/09 CTA chest with no evidence of PE. Findings suggesting multifocal pneumonia vs pulmonary edema -Bilateral lower extremity Doppler ultrasound shows no sonographic evidence of DVT however shows subcutaneous edema in lower extremities -Trend CBC -Transfuse hemoglobin less than 7 -S/p 6 units PRBC -Monitor for signs of bleeding -SCDs to BLE while in bed -Heparin subq The high probability of a clinically significant, sudden or life threatening deterioration of the [multi] system(s) required my full and direct attention, intervention and personal management. The aggregate critical care time was [90] minutes. This time is in addition to time spent performing reported procedures but includes the following: [x] Data Review and interpretation [x] Patient assessment and monitoring of vital signs [x] Documentation [x] Medication orders and management Disposition Plan: icu Total Time Spent with Patient (Minutes): 90 History Interval history: This is a 31-year-old female with obesity and nephrolithiasis admitted with complaints of abdominal pain, lower back pain, nausea no with episodes of vomiting over the past dayon 09/24. Patient underwent a CT scan of the abdomen and pelvis and was found to have acute diverticulitis complicated by sepsis and was admitted to the medical floor initiated sepsis protocol. Surgery team was c onsulted in the emergency department. ICU Course to Date: 10/09: Intubated and sedated, RASS -1 to -2. Recent CXR noted with worsen bilateral opacities with persistent leukocytosis, elevated lactic, and now on 2 pressors. Patient remains afebrile, and already on IV Abx per ID. Will swab patient for COVID. Given recent surgery orders placed for CTA chest, CT Abd/plevis. And also BLE dopplers due to elevated D-Dimer. Renal function is improving, additional IVF to flush out kidney post contrast, Nephrology is also following. Continue TPN and NGT to LIS. 10/10: COVID PCR negative. CTA chest and Abd/plevis noted. No evidence of PE. Patient received X1 dose of 20mg IV lasix per Nephro for pulmonary edema, this am CXR with some improvement, renal function is also improving. Wean vent setting as tolerated per [facility]. Plan for possible CT guided drainage placement in IR tomorrow. Continue TPN and NGT to LIS. 10/11: Patient with anemia, 1 unit PRBC, scheduled for CT-guided drain image of air pocket. Will place on CPAP on return. Slightly worsening renal function but nephrology is on the case. 10/12: Taken to OR today for diverting ileostomy, given 3 units PRBC yesterday and appropriate response. Surgical culture grew yeast and ID added added fluconazole. 10/13: Hypomagnesemia repleted, renal function improving. Patient remains sedated with fentanyl and propofol. Updated sister and father at bedside. Ureteral stents removed at bedside. Plan to to take patient to the OR tomorrow for second look, abdominal washout, colostomy creation on hold for abdominal closure by surgery. We will hold p.m. dose of heparin. Hospitalist Physical - Constitutional Vitals: Temp Pulse Resp BP Pulse Ox 99.3 F 97 H 15 92/50 100 10/13/21 07:18 10/13/21 08:10 10/13/21 06:00 10/13/21 08:10 10/13/21 08:10 General appearance: Present: no acute distress, well-nourished, obese, other (Intubated and Sedated) - EENT Eyes: Present: PERRL, EOM intact - Neck Neck: Present: normal ROM - Respiratory Respiratory: bilateral: CTA, diminished - Cardiovascular Rhythm: regular Heart Sounds: Present: S1 & S2. Absent: systolic murmur, diastolic murmur - Extremities Extremities: no ischemia, pulses intact, pulses symmetrical, normal temperature, normal color Peripheral Pulses: within normal limits - Abdominal General gastrointestinal: soft, non-tender, non-distended, normal bowel sounds - Integumentary Integumentary: Present: warm (MLA to wound vac, YURIDIA drain), dry - Psychiatric Psychiatric: cooperative - Neurologic Neurologic: CNII-XII intact, no focal deficits, moves all extremities - Allied Health Allied health notes reviewed: nursing, RT, social work Results - Labs CBC & Chem 7: 10/13/21 13:34 10/13/21 04:05 Labs: Laboratory Last Values WBC 19.1 K/mm3 (4.5-11.0) H 10/12/21 06:02 RBC 3.56 M/mm3 (3.65-5.03) L 10/12/21 06:02 Hgb 10.0 gm/dl (10.1-14.3) L 10/12/21 Unknown Hct 31.5 % (30.3-42.9) 10/12/21 Unknown MCV 87 fl (79-97) 10/12/21 06:02 MCH 28 pg (28-32) 10/12/21 06:02 MCHC 32 % (30-34) 10/12/21 06:02 RDW 17.0 % (13.2-15.2) H 10/12/21 06:02 Plt Count 712 K/mm3 (140-440) H 10/12/21 06:02 [place] % (Auto) 5.9 % (0.0-7.3) 09/28/21 04:55 Eos % (Auto) 0.4 % (0.0-4.3) 09/28/21 04:55 [place] # (Auto) 0.9 K/mm3 (0.0-0.8) H 09/28/21 04:55 Eos # (Auto) 0.1 K/mm3 (0.0-0.4) 09/28/21 04:55 Baso # (Auto) 0.0 K/mm3 (0.0-0.1) 09/28/21 04:55 Add Manual Diff Complete 10/09/21 05:31 Total Counted 100 10/09/21 05:31 Seg Neutrophils % Irrigation Laborer 10/03/21 04:55 Seg Neuts % (Manual) 88.0 % (40.0-70.0) H 10/09/21 05:31 Band Neutrophils % 0 % 10/09/21 05:31 Lymphocytes % (Manual) 3.0 % (13.4-35.0) L 10/09/21 05:31 Reactive Lymphs % (Man) 1.0 % 10/09/21 05:31 Monocytes % (Manual) 6.0 % (0.0-7.3) 10/09/21 05:31 Eosinophils % (Manual) 2.0 % (0.0-4.3) 10/09/21 05:31 Basophils % (Manual) 0 % (0.0-1.8) 10/09/21 05:31 Metamyelocytes % 0 % 10/09/21 05:31 Myelocytes % 0 % 10/09/21 05:31 Promyelocytes % 0 % 10/09/21 05:31 Blast Cells % 0 % 10/09/21 05:31 Nucleated RBC % Not Reportable 10/09/21 05:31 Seg Neutrophils # 14.0 K/mm3 (1.8-7.7) H 09/28/21 04:55 Seg Neutrophils # Man 17.9 K/mm3 (1.8-7.7) H 10/09/21 05:31 Band Neutrophils # 0.0 K/mm3 10/09/21 05:31 Lymphocytes # (Manual) 0.6 K/mm3 (1.2-5.4) L 10/09/21 05:31 Abs React Lymphs (Man) 0.2 K/mm3 10/09/21 05:31 Monocytes # (Manual) 1.2 K/mm3 (0.0-0.8) H 10/09/21 05:31 Eosinophils # (Manual) 0.4 K/mm3 (0.0-0.4) 10/09/21 05:31 Basophils # (Manual) 0.0 K/mm3 (0.0-0.1) 10/09/21 05:31 Metamyelocytes # 0.0 K/mm3 10/09/21 05:31 Myelocytes # 0.0 K/mm3 10/09/21 05:31 Promyelocytes # 0.0 K/mm3 10/09/21 05:31 Blast Cells # 0.0 K/mm3 10/09/21 05:31 Pathologist Review 09/24/21 14:58 WBC Morphology Not Reportable 10/09/21 05:31 Hypersegmented Neuts Not Reportable 10/09/21 05:31 Hyposegmented Neuts Not Reportable 10/09/21 05:31 Hypogranular Neuts Not Reportable 10/09/21 05:31 Smudge Cells Not Reportable 10/09/21 05:31 Toxic Granulation Not Reportable 10/09/21 05:31 Toxic Vacuolation Not Reportable 10/09/21 05:31 Dohle Bodies Not Reportable 10/09/21 05:31 Pelger-Huet Anomaly Not Reportable 10/09/21 05:31 Marlene Rods Not Reportable 10/09/21 05:31 Platelet Estimate Consistent w auto 10/09/21 05:31 Clumped Platelets Not Reportable 10/09/21 05:31 Plt Clumps, EDTA Not Reportable 10/09/21 05:31 Large Platelets Not Reportable 10/09/21 05:31 Giant Platelets Not Reportable 10/09/21 05:31 Platelet Satelliting Not Reportable 10/09/21 05:31 Plt Morphology Comment Not Reportable 10/09/21 05:31 RBC Morphology Not Reportable 10/09/21 05:31 Dimorphic RBCs Not Reportable 10/09/21 05:31 Polychromasia Not Reportable 10/09/21 05:31 Hypochromasia Not Reportable 10/09/21 05:31 Poikilocytosis Not Reportable 10/09/21 05:31 Anisocytosis 1+ 10/09/21 05:31 Microcytosis Not Reportable 10/09/21 05:31 Macrocytosis Not Reportable 10/09/21 05:31 Spherocytes Not Reportable 10/09/21 05:31 Pappenheimer Bodies Not Reportable 10/09/21 05:31 Sickle Cells Not Reportable 10/09/21 05:31 Target Cells Not Reportable 10/09/21 05:31 Tear Drop Cells Not Reportable 10/09/21 05:31 Ovalocytes Not Reportable 10/09/21 05:31 Helmet Cells Not Reportable 10/09/21 05:31 Navas-Chama Bodies Not Reportable 10/09/21 05:31 Ohlman Rings Not Reportable 10/09/21 05:31 Bronte Cells Not Reportable 10/09/21 05:31 Bite Cells Not Reportable 10/09/21 05:31 Crenated Cell Not Reportable 10/09/21 05:31 Elliptocytes Not Reportable 10/09/21 05:31 Acanthocytes (Spur) Not Reportable 10/09/21 05:31 Rouleaux Not Reportable 10/09/21 05:31 Hemoglobin C Crystals Not Reportable 10/09/21 05:31 Schistocytes Not Reportable 10/09/21 05:31 Malaria parasites Not Reportable 10/09/21 05:31 Flaco Bodies Not Reportable 10/09/21 05:31 Hem Pathologist Commnt No 10/09/21 05:31 PT 17.1 Sec. (12.2-14.9) H 10/12/21 06:02 INR 1.24 (0.87-1.13) H 10/12/21 06:02 APTT 35.8 Sec. (24.2-36.6) 10/12/21 06:02 D-Dimer > 34268 ng/mlDDU (0-234) H 10/09/21 08:45 ABG pH 7.505 pH Units (7.350-7.450) H 10/10/21 Unknown ABG pCO2 27.6 mm Hg 10/10/21 Unknown ABG pO2 246.1 mm Hg (80.0-90.0) H 10/10/21 Unknown ABG HCO3 21.3 mmol/L (20.0-26.0) 10/10/21 Unknown ABG O2 Saturation 99.4 % (95.0-99.0) H 10/10/21 Unknown ABG O2 Content 8.9 (0.0-44) 10/10/21 Unknown ABG Base Excess -1.7 mmol/L (-2.0-3.0) 10/10/21 Unknown ABG Hemoglobin 6.0 gm/dl (12.0-16.0) L 10/10/21 Unknown ABG Carboxyhemoglobin 1.1 % (0.0-5.0) 10/10/21 Unknown ABG Methemoglobin 0.5 % (0.0-1.5) 10/10/21 Unknown Oxyhemoglobin 97.9 % (95.0-99.0) 10/10/21 Unknown FiO2 60 % 10/10/21 Unknown Sodium 138 mmol/L (137-145) 10/13/21 04:05 Potassium 3.9 mmol/L (3.6-5.0) 10/13/21 04:05 Chloride 106.0 mmol/L (98-107) 10/13/21 04:05 Carbon Dioxide 22 mmol/L (22-30) 10/13/21 04:05 Anion Gap 14 mmol/L 10/13/21 04:05 BUN 34 mg/dL (7-17) H 10/13/21 04:05 Creatinine 1.1 mg/dL (0.6-1.2) 10/13/21 04:05 Estimated GFR > 60 ml/min 10/13/21 04:05 BUN/Creatinine Ratio 31 % 10/13/21 04:05 Glucose 200 mg/dL (65-100) H 10/13/21 04:05 POC Glucose 168 mg/dL (70-105) H 10/13/21 10:55 Lactic Acid 1.80 mmol/L (0.7-2.0) 10/10/21 04:10 Calcium 7.5 mg/dL (8.4-10.2) L 10/13/21 04:05 Phosphorus 3.80 mg/dL (2.5-4.5) 10/13/21 04:05 Magnesium 1.60 mg/dL (1.7-2.3) L 10/13/21 04:05 Ferritin 751.9 ng/mL (10.0-200.0) H 10/09/21 05:31 Total Bilirubin 0.30 mg/dL (0.1-1.2) 10/09/21 05:31 AST 26 units/L (5-40) 10/09/21 05:31 ALT 11 units/L (7-56) 10/09/21 05:31 Alkaline Phosphatase 63 units/L (35-129) 10/09/21 05:31 Lactate Dehydrogenase 472 units/L (91-180) H 10/09/21 05:31 Total Creatine Kinase 45 units/L (30-135) 10/13/21 04:05 C-Reactive Protein 15.90 mg/dL (0.00-1.30) H 10/09/21 05:31 Total Protein 5.8 g/dL (6.3-8.2) L 10/09/21 05:31 Albumin 2.3 g/dL (3.9-5) L 10/09/21 05:31 Albumin/Globulin Ratio 0.7 % 10/09/21 05:31 Triglycerides 124 mg/dL (2-149) 10/11/21 03:30 Procalcitonin 12.98 ng/mL (<0.15) 10/09/21 05:31 Urine Color Yellow (Yellow) 09/24/21 14:49 Urine Turbidity Slightly-cloudy (Clear) 09/24/21 14:49 Urine pH 6.0 (5.0-7.0) 09/24/21 14:49 Ur Specific [place] 1.017 (1.003-1.030) 09/24/21 14:49 Urine Protein 30 mg/dl mg/dL (Negative) 09/24/21 14:49 Urine Glucose (UA) Neg mg/dL (Negative) 09/24/21 14:49 Urine Ketones Neg mg/dL (Negative) 09/24/21 14:49 Urine Blood Neg (Negative) 09/24/21 14:49 Urine Nitrite Neg (Negative) 09/24/21 14:49 Ur Reducing Substances Not Reportable 09/24/21 14:49 Urine Bilirubin Neg (Negative) 09/24/21 14:49 Urine Ictotest Not Reportable 09/24/21 14:49 Urine Urobilinogen < 2.0 mg/dL (<2.0) 09/24/21 14:49 Ur Leukocyte Esterase Neg (Negative) 09/24/21 14:49 Urine WBC (Auto) 4.0 /HPF (0.0-6.0) 09/24/21 14:49 Urine RBC (Auto) 2.0 /HPF (0.0-6.0) 09/24/21 14:49 U Epithel Cells (Auto) 18.0 /HPF (0-13.0) H 09/24/21 14:49 Urine Mucus Few /HPF 09/24/21 14:49 Urine HCG, Qual Negative (Negative) 09/24/21 14:49 Coronavirus (PCR) Negative (Negative) 10/09/21 10:15 Blood Type A POSITIVE 10/12/21 06:05 Antibody Screen Negative 10/12/21 06:05 Crossmatch See Detail 10/08/21 22:55 Microbiology: Microbiology 10/11/21 Unknown Abdomen Surgical Culture - Preliminary Jean Marie Albicans 10/11/21 14:52 Abdomen Surgical Culture - Preliminary Jean Marie Albicans 10/12/21 07:40 Tracheal Aspirate Sputum Culture - Preliminary 10/08/21 23:30 Peripheral/Venous Blood Culture - Preliminary NO GROWTH AFTER 4 DAYS 10/08/21 22:55 Peripheral/Venous Blood Culture - Preliminary NO GROWTH AFTER 4 DAYS Doss/IV: Voiding Method Indwelling Catheter Active Medications - Current Medications Current Medications: Generic Name Dose Route Start Last Admin Trade Name Freq PRN Reason Stop Dose Admin Acetaminophen 650 mg 10/08/21 21:38 Acetaminophen 325 Mg Tab PO Q6H PRN Pain, Mild (1-3) Albuterol 2.5 mg 09/24/21 18:07 Albuterol 2.5 Mg/3 Ml Nebu IH Q4HRT PRN Shortness Of Breath Dextrose 0 ml 10/03/21 12:37 Dextrose 10% *Hypoglycemia IV PRN PRN Hypoglycemia Diphenhydramine HCl 25 mg 10/04/21 15:14 10/07/21 00:34 Diphenhydramine 50 Mg/Ml Vial IV 25 mg Q6H PRN Administration Itching Famotidine 20 mg 10/08/21 22:00 10/13/21 09:14 Famotidine 20 Mg/2 Ml Inj IV 20 mg BID JAZ Administration Fentanyl 50 mcg 10/08/21 22:10 Fentanyl 100 Mcg/2 Ml Inj IV Q10MIN PRN ANALGESIA Heparin Sodium (Porcine) 5,000 unit 10/07/21 06:00 10/13/21 05:35 Heparin 5,000 Unit/1 Ml Vial SUB-Q 5,000 unit Q8HR JAZ Administration Hydromorphone HCl 0.25 mg 10/08/21 21:38 Hydromorphone 1 Mg/1 Ml Inj IV Q4H PRN Pain, Moderate (4-6) Hydrophilic Ointment 1 applic 10/08/21 21:00 Lip Therapy Vaseline TP Q2HR PRN Dry Lips Metronidazole 500 mg in 100 mls @ 100 mls/hr 10/02/21 16:00 10/13/21 08:34 Flagyl 500 Mg/100 Ml IV 100 mls/hr Q8H JAZ Administration Protocol Linezolid 600 mg in 300 mls @ 300 mls/hr 10/08/21 15:00 10/13/21 03:48 Zyvox 600mg/300ml IV 300 mls/hr Q12H JAZ Administration Protocol Propofol 1,000 mg in 100 mls @ 2.694 mls/hr 10/08/21 21:00 10/13/21 06:52 Diprivan 10 Mg/Ml IV 25 mcg/kg/min TITR JAZ 13.47 mls/hr Titration Protocol 5 MCG/KG/MIN Cefepime HCl 2 gm in 100 mls @ 200 mls/hr 10/08/21 22:00 10/13/21 09:19 Cefepime/Ns 2 Gm/100 Ml IV 200 mls/hr Q12H [facility] Administration Protocol Fentanyl Citrate 2,000 mcg in 100 mls @ 4.49 mls/hr 10/08/21 23:00 10/13/21 09:55 Fentanyl Drip Premix IV 4 mcg/kg/hr TITR JAZ 17.96 mls/hr Administration Protocol 1 MCG/KG/HR Vasopressin 20 unit/ Sodium 101 mls @ 9.09 mls/hr 10/08/21 23:00 10/09/21 14:30 Chloride IV 0 units/min TITR JAZ 0 mls/hr Titration Protocol 0.03 UNITS/MIN NORepinephrine/NS 8 MG-250 ML 8 mg in 250 mls @ 3.75 mls/hr 10/08/21 23:45 Norepinephrine/Ns 8 Mg-250 Ml (Double Conc) IV TITRATE JAZ Protocol 2 MCG/MIN Amino Acids/Electrolytes/Dextrose 1,999.92 mls @ 83.33 mls/hr 10/12/21 20:00 10/12/21 20:47 Tpn Adult IV 10/13/21 19:59 83.33 mls/hr DAILY@2000 [facility] Administration Protocol Magnesium Sulfate 4 gm in 100 mls @ 25 mls/hr 10/13/21 08:00 10/13/21 08:40 Magnesium Sulfate 4gm/100ml IV 10/13/21 12:00 25 mls/hr ONCE@0800 [facility] Administration Fluconazole 200 mls @ 100 mls/hr 10/13/21 10:00 10/13/21 09:19 Diflucan IV 100 mls/hr Q24HR [facility] Administration Protocol Insulin Glargine 5 units 10/13/21 10:00 10/13/21 09:25 Insulin Glargine 100 Units/Ml SUB-Q 5 units QDAY JAZ Administration Insulin Human Regular 0 units 10/10/21 00:00 10/13/21 05:35 Insulin Regular, Human 100 Units/1 Ml SUB-Q 3 units Q6HR JAZ Administration Protocol Labetalol HCl 10 mg 10/01/21 08:31 10/12/21 16:58 Labetalol 20 Mg/4 Ml Inj IV 10 mg Q6H PRN Administration Hypertension Multi-Ingred Cream/Lotion/Oil/Oint 1 applic 10/08/21 21:00 Mineral Oil/Petrolatum, White Ophth Oint 3.5 Gm OU Q4HR PRN Dry Eye(s) Naloxone HCl 0.1 mg 10/03/21 14:00 Naloxone 0.4 Mg/1 Ml Inj IV Q2MIN PRN Res Rate </= 8 or 02 SAT < 92% Ondansetron HCl 4 mg 09/24/21 18:07 10/05/21 11:39 Ondansetron 4 Mg/2 Ml Inj IV 4 mg Q8H PRN Administration Nausea And Vomiting Phenol 1 spray 10/02/21 13:00 10/03/21 10:23 Phenol 1.4% 177 Ml Bottle MM 1 spray PRN PRN Administration Sore Throat Scopolamine 1 each 10/04/21 10:00 10/13/21 09:20 Scopolamine Transdermal Patch 72 Hr TD 1 each Q3D JAZ Administration Sodium Chloride 10 ml 09/24/21 22:00 10/13/21 09:20 Sodium Chloride 0.9% 10 Ml Flush Syringe IV 10 ml BID JAZ Administration Sodium Chloride 10 ml 09/24/21 18:07 09/25/21 08:34 Sodium Chloride 0.9% 10 Ml Flush Syringe IV 10 ml PRN PRN Administration LINE FLUSH Nutrition/Malnutrition Assess - Dietary Evaluation Nutrition/Malnutrition Findings: Nutrition Notes Start: 09/25/21 15:31 Freq: Status: Active Protocol: Document 10/12/21 10:11 BIN (Rec: 10/12/21 10:49 BIN [id number]) Nutrition Notes Initial or Follow up Reassessment Current Diagnosis Acute Kidney Injury,Sepsis, Respiratory Failure, Malnutrition Other Pertinent Diagnosis s/p appendectomy w/R- hemicolectomy, PNA Current Diet CPN @ 83.33 ml/hr Labs/Tests 10/12: BUN 37, Crea 1.5, Glu 172, Ca 8.1. Pertinent Medications 10/12: Propofol @ 16.164 ml/hr (427 Kcal), others nutritionally unremarkable. Height 5 ft 7 in Weight 105 kg [place] Body Weight (kg) 61.36 BMI 36.2 Weight change and time frame 15.2 Kg Body Weight loss reported. RN will Wt Pt after procedure. Weight Status Obese Subjective/Other Information Day 10 PN. Pt still on Mechanical Ventilation. Pt underwent procedure on two drains placement which showed anastomosis staple line dehiscence. Pt will go procedure on 10/12: Ex-lap w/diverting ileostomy. Percent of energy/protein needs met: 74% Kcal; 81% AA. (meeting 100% energy needs if propofol included). Burn Absent Trauma Absent GI Symptoms Other Food Allergy No Skin Integrity/Comment Surgical wound Current % PO Other Minimum of two criteria No #1 Nutrition Diagnosis Altered GI function Diagnosis Progress(for reassessment Continues documentation) Is patient on ventilator? Yes Is Patient Ambulatory and/or Out of Bed No REE-([facility]-confined to bed) 2152.968 Kcal/Kg value to use for calculation 16 Approximate Energy Requirements Using 1680 kcal/Kg Calculation Used for Recommendations Kcal/kg Additional Notes Protein: 2 g/Kg; 123 g/day IBW . Fluids: 1 mL/Kcal, or as per MD. Nutrition Intervention Nutrition Support: Continue CPN at 83.33ml/hr: MVI, 5% amino acids, 10% Dextrose, 3 mEq Mg, 150 mEq Na , 25 mmol Phos, 50%/50% chloride/acetate. Osmolality: 1338. Kcal 1,250 Protein (gm) 100 Carbohydrates (gm) 250 Fat (gm) 0 Fluid (mL) 2,000 Fiber (gm) 0 % RDI: 74% Kcal; 81% AA. Goal #1 Provide at least 75% of energy /protein needs through Parenteral Feeding during LOS. Goal #2 Maintain body weight within +/ -3% of admission body weight during LOS. Follow-Up By: 10/13/21 Additional Comments Continue monitoring PPN tolerance and BM. BMP, Phos, Mg labs ordered.
--- NOTE | 2021-10-13 13:00 | Progress Note ---
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 Open left hemicolectomy and partial omentectomy Peritonitis Leukocytosis Diverticulitis with absces Acute renal failure Acute blood loss anemia Gross Hematuria - to OR in am - continue to hold on SBT's till abdominal closure - continue care as below otherwise; - daily SAT and SBT assessment as tolerated - continue to wean supplemental oxygen for target O2 sat's > 90% acutely - VAP bundle addressed - continue lung protective strategies - continue bronchodilators with pulmonary hygiene per RT - wean per pulmonary driven protocols otherwise - avoid nephrotoxins, renally dose all medications - continue accuchecks with glycemic control per SSI (While critically ill target blood glucose of 140-180 mg/dL; avoid hypoglycemia) - sedation prn for target RASS 0 to -1 - continue to avoid benzodiazepine's, reduce the possibility of delirium - AB's per ID rec's - prn analgesia per CPOT score - Maintenance of sleep-wake cycle, avoid delirium - continue enteral nutritional support at goal rate as tolerated - G.I. & VTE prophylaxis - PT/OT/ROM exercises - continue mobility protocols for pressure ulcer prophylaxis - Monitor hemodynamics closely - continue other care per attending / other consultants - discharge planning ongoing concurrently COVID SPECIFIC INTERVENTIONS - COVID-19 PGR negative .... Re-evaluate in am & prn CONDITION: CRITICAL PROGNOSIS: GUARDED CODE STATUS: FULL CODE The high probability of a clinically significant, sudden or life-threatening deterioration of the [respiratory, cardiovascular & neurologic] system(s) required my full and direct attention, intervention and personal management. The aggregate critical care time was [33] minutes without overlap. 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 s/p appendectomy; VRE infection; Open left hemicolectomy and partial omentectomy; Peritonitis; Diverticulitis with abscess;' BRYANNA; ABLA; Gross Hematuria Seen and examined at bedside; 24hour events reviewed; nursing and respiratory care staff consulted; no adverse overnight events reported to me; resting in bed; remains on MVS; s/p Ex-lap, Lysis of adhesions, takedown of colorectal anastomosis and temporary closure of abdomen with ABThera wound VAC; weaning on hold re: wound dehiscence risks Objective Vital Signs - 12hr 10/13/21 10/13/21 10/13/21 01:00 01:30 02:00 Temperature Pulse Rate 97 H 99 H 99 H Pulse Rate [ From Monitor] Respiratory 15 14 15 Rate Respiratory Rate [Lower Abdomen] Blood Pressure 105/63 112/65 99/61 O2 Sat by Pulse 100 99 100 Oximetry 10/13/21 10/13/21 10/13/21 02:30 03:00 03:30 Temperature Pulse Rate 101 H 99 H 102 H Pulse Rate [ From Monitor] Respiratory 14 14 10 L Rate Respiratory Rate [Lower Abdomen] Blood Pressure 94/58 92/55 115/83 O2 Sat by Pulse 99 100 100 Oximetry 10/13/21 10/13/21 10/13/21 04:00 04:30 05:00 Temperature 98.6 F Pulse Rate 102 H 98 H 99 H Pulse Rate [ 105 H From Monitor] Respiratory 17 16 14 Rate Respiratory 16 Rate [Lower Abdomen] Blood Pressure 106/66 107/61 109/64 O2 Sat by Pulse 100 100 100 Oximetry 10/13/21 10/13/21 10/13/21 05:30 06:00 06:30 Temperature Pulse Rate 96 H 100 H 100 H Pulse Rate [ From Monitor] Respiratory 13 15 13 Rate Respiratory Rate [Lower Abdomen] Blood Pressure 116/69 109/63 104/59 O2 Sat by Pulse 100 99 100 Oximetry 10/13/21 10/13/21 10/13/21 07:00 07:18 07:30 Temperature 99.3 F Pulse Rate 98 H 100 H Pulse Rate [ From Monitor] Respiratory 14 15 Rate Respiratory Rate [Lower Abdomen] Blood Pressure 94/52 99/56 O2 Sat by Pulse 100 100 Oximetry 10/13/21 10/13/21 10/13/21 08:00 08:10 08:30 Temperature Pulse Rate 97 H 97 H 98 H Pulse Rate [ From Monitor] Respiratory 15 16 Rate Respiratory Rate [Lower Abdomen] Blood Pressure 90/53 92/50 95/54 O2 Sat by Pulse 100 100 100 Oximetry 10/13/21 10/13/21 10/13/21 09:00 09:30 10:00 Temperature Pulse Rate 97 H 99 H 96 H Pulse Rate [ From Monitor] Respiratory 14 14 14 Rate Respiratory Rate [Lower Abdomen] Blood Pressure 91/52 101/57 93/52 O2 Sat by Pulse 100 100 100 Oximetry 10/13/21 10/13/21 10/13/21 10:30 11:00 11:30 Temperature Pulse Rate 110 H 105 H 94 H Pulse Rate [ From Monitor] Respiratory 17 22 9 L Rate Respiratory Rate [Lower Abdomen] Blood Pressure 115/67 106/59 102/54 O2 Sat by Pulse 100 100 100 Oximetry 10/13/21 10/13/21 12:30 12:56 Temperature 99.5 F Pulse Rate 94 H Pulse Rate [ From Monitor] Respiratory Rate Respiratory Rate [Lower Abdomen] Blood Pressure 106/59 O2 Sat by Pulse 99 Oximetry Constitutional: no acute distress, other (young obese female with mildly increased respiratory effort at rest on MVS) Eyes: non-icteric ENT: oropharynx dry, other (orally intubated ETT 7.5cm @24 at the lip) Neck: supple, other (RIJ CVL) Effort: mildly labored Ascultation: Bilateral: diminished breath sounds, rhonchi Percussion: Bilateral: not dull Cardiovascular: regular rate and rhythm, other (S1,S2) Gastrointestinal: hypoactive bowel sounds, soft, tender (mild), other (YURIDIA drains, anterior abdominal dressings, Doss catheter) Integumentary: normal, other (post-op changes) Extremities: no cyanosis, pulses normal, no ischemia or petechiae, edema Neurologic: non-focal exam, pupils equal and round, CN II-XII normal, motor strength normal and Psychiatric: mood appropriate, affect normal CBC and BMP: 10/14/21 04:05 10/14/21 04:05 ABG, PT/INR, D-dimer: ABG ABG pH 7.505 pH Units (7.350-7.450) H 10/10/21 Unknown ABG pCO2 27.6 mm Hg 10/10/21 Unknown ABG pO2 246.1 mm Hg (80.0-90.0) H 10/10/21 Unknown ABG O2 Saturation 99.4 % (95.0-99.0) H 10/10/21 Unknown PT/INR, D-dimer PT 17.1 Sec. (12.2-14.9) H 10/12/21 06:02 INR 1.24 (0.87-1.13) H 10/12/21 06:02 D-Dimer > 92943 ng/mlDDU (0-234) H 10/09/21 08:45 Abnormal lab findings: Abnormal Labs 09/24/21 09/24/21 09/24/21 14:49 14:58 14:58 WBC 32.4 H RBC Hgb Hct MCH RDW Plt Count 535 H Wirt # (Auto) Seg Neutrophils % Seg Neuts % (Manual) 82.0 H Lymphocytes % (Manual) 2.0 L Monocytes % (Manual) Nucleated RBC % Seg Neutrophils # Seg Neutrophils # Man 26.6 H Lymphocytes # (Manual) 0.6 L Monocytes # (Manual) 1.6 H PT INR D-Dimer ABG pH ABG pO2 ABG HCO3 ABG O2 Saturation ABG Base Excess ABG Hemoglobin Oxyhemoglobin Sodium 134 L Potassium 3.5 L Chloride 97.6 L Carbon Dioxide BUN Creatinine Glucose 119 H POC Glucose Lactic Acid Calcium Phosphorus Magnesium Ferritin Lactate Dehydrogenase Total Creatine Kinase C-Reactive Protein Total Protein 6.1 L Albumin 3.3 L U Epithel Cells (Auto) 18.0 H Crossmatch 09/25/21 09/25/21 09/26/21 05:47 05:47 04:20 WBC 25.4 H 23.6 H RBC 3.54 L Hgb Hct MCH RDW Plt Count 466 H 486 H Wirt # (Auto) Seg Neutrophils % Seg Neuts % (Manual) 93.0 H 86.0 H Lymphocytes % (Manual) 4.0 L 3.0 L Monocytes % (Manual) Nucleated RBC % Seg Neutrophils # Seg Neutrophils # Man 23.6 H 20.3 H Lymphocytes # (Manual) 1.0 L 0.7 L Monocytes # (Manual) 0.9 H PT INR D-Dimer ABG pH ABG pO2 ABG HCO3 ABG O2 Saturation ABG Base Excess ABG Hemoglobin Oxyhemoglobin Sodium 136 L Potassium 3.0 L Chloride Carbon Dioxide 21 L BUN Creatinine Glucose POC Glucose Lactic Acid Calcium 7.8 L Phosphorus Magnesium Ferritin Lactate Dehydrogenase Total Creatine Kinase C-Reactive Protein Total Protein Albumin U Epithel Cells (Auto) Crossmatch 09/26/21 09/27/21 09/27/21 04:20 08:28 08:28 WBC 20.6 H RBC 3.42 L Hgb 9.9 L Hct 29.5 L D MCH RDW Plt Count Wirt # (Auto) Seg Neutrophils % Seg Neuts % (Manual) 94.1 H Lymphocytes % (Manual) 1.0 L Monocytes % (Manual) Nucleated RBC % Seg Neutrophils # Seg Neutrophils # Man 19.4 H Lymphocytes # (Manual) 0.2 L Monocytes # (Manual) PT INR D-Dimer ABG pH ABG pO2 ABG HCO3 ABG O2 Saturation ABG Base Excess ABG Hemoglobin Oxyhemoglobin Sodium Potassium 3.2 L Chloride Carbon Dioxide 20 L BUN Creatinine Glucose 137 H POC Glucose Lactic Acid Calcium 8.3 L 8.2 L Phosphorus Magnesium Ferritin Lactate Dehydrogenase Total Creatine Kinase C-Reactive Protein Total Protein Albumin U Epithel Cells (Auto) Crossmatch 09/28/21 09/28/21 09/29/21 04:55 15:35 07:02 WBC 15.1 H 16.5 H RBC 3.34 L 3.20 L Hgb 9.3 L 9.1 L Hct 28.7 L 27.3 L MCH RDW 15.3 H Plt Count 444 H 469 H Wirt # (Auto) 0.9 H Seg Neutrophils % 89.3 H Seg Neuts % (Manual) 88.0 H 80.0 H Lymphocytes % (Manual) 9.0 L 8.0 L Monocytes % (Manual) Nucleated RBC % Seg Neutrophils # 14.0 H Seg Neutrophils # Man 13.3 H 13.2 H Lymphocytes # (Manual) Monocytes # (Manual) PT INR D-Dimer ABG pH ABG pO2 ABG HCO3 ABG O2 Saturation ABG Base Excess ABG Hemoglobin Oxyhemoglobin Sodium Potassium 3.3 L Chloride 109.4 H Carbon Dioxide 20 L BUN Creatinine 0.5 L Glucose POC Glucose Lactic Acid Calcium 7.9 L Phosphorus Magnesium Ferritin Lactate Dehydrogenase Total Creatine Kinase C-Reactive Protein Total Protein Albumin U Epithel Cells (Auto) Crossmatch 09/30/21 09/30/21 10/01/21 05:40 05:40 07:49 WBC 17.4 H 17.9 H RBC 3.37 L 3.32 L Hgb 9.2 L 9.3 L Hct 28.4 L 28.3 L MCH 27 L RDW 15.4 H 15.5 H Plt Count 530 H 604 H Wirt # (Auto) Seg Neutrophils % Seg Neuts % (Manual) 91.0 H 72.0 H Lymphocytes % (Manual) 9.0 L 1.0 L Monocytes % (Manual) 8.0 H Nucleated RBC % 1.0 H Seg Neutrophils # Seg Neutrophils # Man 15.8 H 12.9 H Lymphocytes # (Manual) 0.2 L Monocytes # (Manual) 1.4 H PT INR D-Dimer ABG pH ABG pO2 ABG HCO3 ABG O2 Saturation ABG Base Excess ABG Hemoglobin Oxyhemoglobin Sodium Potassium 3.5 L Chloride Carbon Dioxide 21 L BUN Creatinine 0.5 L Glucose POC Glucose Lactic Acid Calcium 8.0 L Phosphorus Magnesium Ferritin Lactate Dehydrogenase Total Creatine Kinase C-Reactive Protein Total Protein Albumin U Epithel Cells (Auto) Crossmatch 10/01/21 10/01/21 10/02/21 07:49 10:45 05:41 WBC 23.2 H RBC 2.90 L Hgb 7.9 L Hct 24.8 L MCH 27 L RDW 15.3 H Plt Count 621 H Wirt # (Auto) Seg Neutrophils % Seg Neuts % (Manual) 88.0 H Lymphocytes % (Manual) 2.0 L Monocytes % (Manual) Nucleated RBC % Seg Neutrophils # Seg Neutrophils # Man 20.4 H Lymphocytes # (Manual) 0.5 L Monocytes # (Manual) 1.4 H PT INR D-Dimer ABG pH ABG pO2 ABG HCO3 ABG O2 Saturation ABG Base Excess ABG Hemoglobin Oxyhemoglobin Sodium Potassium Chloride Carbon Dioxide 20 L BUN Creatinine 0.5 L Glucose POC Glucose Lactic Acid Calcium 7.6 L Phosphorus Magnesium Ferritin Lactate Dehydrogenase Total Creatine Kinase C-Reactive Protein Total Protein Albumin U Epithel Cells (Auto) Crossmatch See Detail 10/02/21 10/02/21 10/02/21 05:41 07:47 11:10 WBC RBC Hgb Hct MCH RDW Plt Count Wirt # (Auto) Seg Neutrophils % Seg Neuts % (Manual) Lymphocytes % (Manual) Monocytes % (Manual) Nucleated RBC % Seg Neutrophils # Seg Neutrophils # Man Lymphocytes # (Manual) Monocytes # (Manual) PT INR D-Dimer ABG pH ABG pO2 ABG HCO3 ABG O2 Saturation ABG Base Excess ABG Hemoglobin Oxyhemoglobin Sodium Potassium Chloride Carbon Dioxide BUN Creatinine Glucose 130 H POC Glucose 145 H 120 H Lactic Acid Calcium 6.9 L Phosphorus Magnesium Ferritin Lactate Dehydrogenase Total Creatine Kinase C-Reactive Protein Total Protein Albumin U Epithel Cells (Auto) Crossmatch 10/02/21 10/03/21 10/03/21 16:14 04:55 04:55 WBC 26.1 H RBC 2.31 L Hgb 6.3 L Hct 19.8 L* MCH RDW 15.9 H Plt Count 598 H Wirt # (Auto) Seg Neutrophils % Seg Neuts % (Manual) 82.0 H Lymphocytes % (Manual) 1.0 L Monocytes % (Manual) 10.0 H Nucleated RBC % Seg Neutrophils # Seg Neutrophils # Man 21.4 H Lymphocytes # (Manual) 0.3 L Monocytes # (Manual) 2.6 H PT INR D-Dimer ABG pH ABG pO2 ABG HCO3 ABG O2 Saturation ABG Base Excess ABG Hemoglobin Oxyhemoglobin Sodium Potassium Chloride Carbon Dioxide BUN 22 H Creatinine 1.7 H D Glucose 145 H POC Glucose 109 H Lactic Acid Calcium 6.4 L Phosphorus Magnesium 2.40 H Ferritin Lactate Dehydrogenase Total Creatine Kinase C-Reactive Protein Total Protein 4.2 L Albumin 1.6 L U Epithel Cells (Auto) Crossmatch 10/03/21 10/03/21 10/03/21 07:15 11:49 17:06 WBC RBC Hgb Hct MCH RDW Plt Count Wirt # (Auto) Seg Neutrophils % Seg Neuts % (Manual) Lymphocytes % (Manual) Monocytes % (Manual) Nucleated RBC % Seg Neutrophils # Seg Neutrophils # Man Lymphocytes # (Manual) Monocytes # (Manual) PT INR D-Dimer ABG pH ABG pO2 ABG HCO3 ABG O2 Saturation ABG Base Excess ABG Hemoglobin Oxyhemoglobin Sodium Potassium Chloride Carbon Dioxide BUN Creatinine Glucose POC Glucose 162 H 171 H 174 H Lactic Acid Calcium Phosphorus Magnesium Ferritin Lactate Dehydrogenase Total Creatine Kinase C-Reactive Protein Total Protein Albumin U Epithel Cells (Auto) Crossmatch 10/03/21 10/04/21 10/04/21 23:31 04:44 04:44 WBC 26.4 H RBC 2.33 L Hgb 6.6 L Hct 19.4 L* MCH RDW 16.1 H Plt Count 602 H Wirt # (Auto) Seg Neutrophils % Seg Neuts % (Manual) 80.0 H Lymphocytes % (Manual) 5.0 L Monocytes % (Manual) Nucleated RBC % Seg Neutrophils # Seg Neutrophils # Man 21.1 H Lymphocytes # (Manual) Monocytes # (Manual) 1.8 H PT INR D-Dimer ABG pH ABG pO2 ABG HCO3 ABG O2 Saturation ABG Base Excess ABG Hemoglobin Oxyhemoglobin Sodium 135 L Potassium 3.4 L Chloride Carbon Dioxide 21 L BUN 28 H Creatinine 2.0 H Glucose 171 H POC Glucose 179 H Lactic Acid Calcium 6.7 L Phosphorus 1.30 L D Magnesium 2.40 H Ferritin Lactate Dehydrogenase Total Creatine Kinase C-Reactive Protein Total Protein Albumin U Epithel Cells (Auto) Crossmatch 10/04/21 10/04/21 10/04/21 05:25 12:01 13:30 WBC RBC Hgb Hct MCH RDW Plt Count Wirt # (Auto) Seg Neutrophils % Seg Neuts % (Manual) Lymphocytes % (Manual) Monocytes % (Manual) Nucleated RBC % Seg Neutrophils # Seg Neutrophils # Man Lymphocytes # (Manual) Monocytes # (Manual) PT INR D-Dimer ABG pH ABG pO2 ABG HCO3 ABG O2 Saturation ABG Base Excess ABG Hemoglobin Oxyhemoglobin Sodium Potassium Chloride Carbon Dioxide BUN Creatinine Glucose POC Glucose 174 H 172 H Lactic Acid Calcium Phosphorus Magnesium Ferritin Lactate Dehydrogenase Total Creatine Kinase C-Reactive Protein Total Protein Albumin U Epithel Cells (Auto) Crossmatch See Detail 10/04/21 10/04/21 10/04/21 16:47 20:28 22:23 WBC RBC Hgb 8.5 L Hct 25.1 L MCH RDW Plt Count Wirt # (Auto) Seg Neutrophils % Seg Neuts % (Manual) Lymphocytes % (Manual) Monocytes % (Manual) Nucleated RBC % Seg Neutrophils # Seg Neutrophils # Man Lymphocytes # (Manual) Monocytes # (Manual) PT INR D-Dimer ABG pH ABG pO2 ABG HCO3 ABG O2 Saturation ABG Base Excess ABG Hemoglobin Oxyhemoglobin Sodium Potassium Chloride Carbon Dioxide BUN Creatinine Glucose POC Glucose 135 H 152 H Lactic Acid Calcium Phosphorus Magnesium Ferritin Lactate Dehydrogenase Total Creatine Kinase C-Reactive Protein Total Protein Albumin U Epithel Cells (Auto) Crossmatch 10/05/21 10/05/21 10/05/21 04:40 04:40 04:40 WBC 24.7 H RBC 3.02 L Hgb 8.4 L Hct 25.5 L MCH RDW 16.2 H Plt Count 644 H Wirt # (Auto) Seg Neutrophils % Seg Neuts % (Manual) 91.0 H Lymphocytes % (Manual) 7.0 L Monocytes % (Manual) Nucleated RBC % Seg Neutrophils # Seg Neutrophils # Man 22.5 H Lymphocytes # (Manual) Monocytes # (Manual) PT 17.8 H INR 1.31 H D-Dimer ABG pH ABG pO2 ABG HCO3 ABG O2 Saturation ABG Base Excess ABG Hemoglobin Oxyhemoglobin Sodium 135 L Potassium Chloride Carbon Dioxide BUN 29 H Creatinine 2.1 H Glucose 156 H POC Glucose Lactic Acid Calcium 7.6 L Phosphorus 1.90 L D Magnesium Ferritin Lactate Dehydrogenase Total Creatine Kinase C-Reactive Protein Total Protein 5.2 L D Albumin 1.8 L U Epithel Cells (Auto) Crossmatch 10/05/21 10/05/21 10/05/21 05:08 18:17 23:37 WBC RBC Hgb Hct MCH RDW Plt Count Wirt # (Auto) Seg Neutrophils % Seg Neuts % (Manual) Lymphocytes % (Manual) Monocytes % (Manual) Nucleated RBC % Seg Neutrophils # Seg Neutrophils # Man Lymphocytes # (Manual) Monocytes # (Manual) PT INR D-Dimer ABG pH ABG pO2 ABG HCO3 ABG O2 Saturation ABG Base Excess ABG Hemoglobin Oxyhemoglobin Sodium Potassium Chloride Carbon Dioxide BUN Creatinine Glucose POC Glucose 156 H 119 H 130 H Lactic Acid Calcium Phosphorus Magnesium Ferritin Lactate Dehydrogenase Total Creatine Kinase C-Reactive Protein Total Protein Albumin U Epithel Cells (Auto) Crossmatch 10/06/21 10/06/21 10/06/21 04:27 05:27 05:27 WBC 23.4 H RBC 2.84 L Hgb 7.8 L Hct 23.9 L MCH RDW 16.2 H Plt Count 712 H Wirt # (Auto) Seg Neutrophils % Seg Neuts % (Manual) Lymphocytes % (Manual) Monocytes % (Manual) Nucleated RBC % Seg Neutrophils # Seg Neutrophils # Man Lymphocytes # (Manual) Monocytes # (Manual) PT INR D-Dimer ABG pH ABG pO2 ABG HCO3 ABG O2 Saturation ABG Base Excess ABG Hemoglobin Oxyhemoglobin Sodium 134 L Potassium Chloride Carbon Dioxide 20 L BUN 28 H Creatinine 1.9 H Glucose 132 H POC Glucose 132 H Lactic Acid Calcium 7.8 L Phosphorus Magnesium Ferritin Lactate Dehydrogenase Total Creatine Kinase 242 H C-Reactive Protein Total Protein Albumin U Epithel Cells (Auto) Crossmatch 10/06/21 10/06/21 10/06/21 16:40 20:50 23:39 WBC RBC Hgb Hct MCH RDW Plt Count Wirt # (Auto) Seg Neutrophils % Seg Neuts % (Manual) Lymphocytes % (Manual) Monocytes % (Manual) Nucleated RBC % Seg Neutrophils # Seg Neutrophils # Man Lymphocytes # (Manual) Monocytes # (Manual) PT INR D-Dimer ABG pH ABG pO2 ABG HCO3 ABG O2 Saturation ABG Base Excess ABG Hemoglobin Oxyhemoglobin Sodium Potassium Chloride Carbon Dioxide BUN Creatinine Glucose POC Glucose 133 H 116 H 132 H Lactic Acid Calcium Phosphorus Magnesium Ferritin Lactate Dehydrogenase Total Creatine Kinase C-Reactive Protein Total Protein Albumin U Epithel Cells (Auto) Crossmatch 10/07/21 10/07/21 10/07/21 05:09 05:13 09:43 WBC 22.3 H RBC 2.81 L Hgb 7.8 L Hct 24.0 L MCH RDW 16.5 H Plt Count 733 H Wirt # (Auto) Seg Neutrophils % Seg Neuts % (Manual) 85.0 H Lymphocytes % (Manual) 1.0 L Monocytes % (Manual) Nucleated RBC % Seg Neutrophils # Seg Neutrophils # Man 19.0 H Lymphocytes # (Manual) 0.2 L Monocytes # (Manual) 1.6 H PT INR D-Dimer ABG pH ABG pO2 ABG HCO3 ABG O2 Saturation ABG Base Excess ABG Hemoglobin Oxyhemoglobin Sodium 136 L Potassium Chloride Carbon Dioxide 20 L BUN 29 H Creatinine 1.9 H Glucose 140 H POC Glucose 139 H Lactic Acid Calcium 7.6 L Phosphorus Magnesium Ferritin Lactate Dehydrogenase Total Creatine Kinase C-Reactive Protein Total Protein Albumin U Epithel Cells (Auto) Crossmatch 10/07/21 10/07/21 10/08/21 11:38 17:44 00:20 WBC RBC Hgb Hct MCH RDW Plt Count Wirt # (Auto) Seg Neutrophils % Seg Neuts % (Manual) Lymphocytes % (Manual) Monocytes % (Manual) Nucleated RBC % Seg Neutrophils # Seg Neutrophils # Man Lymphocytes # (Manual) Monocytes # (Manual) PT INR D-Dimer ABG pH ABG pO2 ABG HCO3 ABG O2 Saturation ABG Base Excess ABG Hemoglobin Oxyhemoglobin Sodium Potassium Chloride Carbon Dioxide BUN Creatinine Glucose POC Glucose 126 H 113 H 129 H Lactic Acid Calcium Phosphorus Magnesium Ferritin Lactate Dehydrogenase Total Creatine Kinase C-Reactive Protein Total Protein Albumin U Epithel Cells (Auto) Crossmatch 10/08/21 10/08/21 10/08/21 05:26 05:26 05:29 WBC 21.8 H RBC 2.84 L Hgb 7.8 L Hct 24.1 L MCH 27 L RDW 16.5 H Plt Count 789 H Wirt # (Auto) Seg Neutrophils % Seg Neuts % (Manual) Lymphocytes % (Manual) Monocytes % (Manual) Nucleated RBC % Seg Neutrophils # Seg Neutrophils # Man Lymphocytes # (Manual) Monocytes # (Manual) PT INR D-Dimer ABG pH ABG pO2 ABG HCO3 ABG O2 Saturation ABG Base Excess ABG Hemoglobin Oxyhemoglobin Sodium 136 L Potassium Chloride Carbon Dioxide 20 L BUN 31 H Creatinine 1.7 H Glucose 134 H POC Glucose 123 H Lactic Acid Calcium 7.9 L Phosphorus 4.60 H D Magnesium Ferritin Lactate Dehydrogenase Total Creatine Kinase C-Reactive Protein Total Protein Albumin U Epithel Cells (Auto) Crossmatch 10/08/21 10/08/21 10/08/21 11:53 17:07 20:08 WBC RBC Hgb Hct MCH RDW Plt Count Wirt # (Auto) Seg Neutrophils % Seg Neuts % (Manual) Lymphocytes % (Manual) Monocytes % (Manual) Nucleated RBC % Seg Neutrophils # Seg Neutrophils # Man Lymphocytes # (Manual) Monocytes # (Manual) PT INR D-Dimer ABG pH 7.308 L ABG pO2 40.2 L ABG HCO3 15.7 L ABG O2 Saturation 68 L ABG Base Excess -9.6 L ABG Hemoglobin 9.7 L Oxyhemoglobin 67.8 L Sodium Potassium Chloride Carbon Dioxide BUN Creatinine Glucose POC Glucose 128 H 139 H Lactic Acid Calcium Phosphorus Magnesium Ferritin Lactate Dehydrogenase Total Creatine Kinase C-Reactive Protein Total Protein Albumin U Epithel Cells (Auto) Crossmatch 10/08/21 10/08/21 10/08/21 21:30 22:55 22:55 WBC RBC Hgb Hct MCH RDW Plt Count Wirt # (Auto) Seg Neutrophils % Seg Neuts % (Manual) Lymphocytes % (Manual) Monocytes % (Manual) Nucleated RBC % Seg Neutrophils # Seg Neutrophils # Man Lymphocytes # (Manual) Monocytes # (Manual) PT INR D-Dimer ABG pH ABG pO2 43.8 L ABG HCO3 19.5 L ABG O2 Saturation 70.7 L ABG Base Excess -5.3 L ABG Hemoglobin 8.6 L Oxyhemoglobin 69.4 L Sodium Potassium Chloride Carbon Dioxide BUN Creatinine Glucose POC Glucose Lactic Acid 2.50 H* Calcium Phosphorus Magnesium Ferritin Lactate Dehydrogenase Total Creatine Kinase C-Reactive Protein Total Protein Albumin U Epithel Cells (Auto) Crossmatch See Detail 10/09/21 10/09/21 10/09/21 03:12 05:31 05:31 WBC 20.3 H RBC 2.70 L Hgb 7.4 L Hct 23.1 L MCH 27 L RDW 16.6 H Plt Count 786 H Wirt # (Auto) Seg Neutrophils % Seg Neuts % (Manual) 88.0 H Lymphocytes % (Manual) 3.0 L Monocytes % (Manual) Nucleated RBC % Seg Neutrophils # Seg Neutrophils # Man 17.9 H Lymphocytes # (Manual) 0.6 L Monocytes # (Manual) 1.2 H PT INR D-Dimer ABG pH ABG pO2 ABG HCO3 ABG O2 Saturation ABG Base Excess ABG Hemoglobin Oxyhemoglobin Sodium 136 L Potassium Chloride Carbon Dioxide 20 L BUN 32 H Creatinine 1.5 H Glucose 214 H POC Glucose 190 H Lactic Acid Calcium 7.5 L Phosphorus Magnesium Ferritin Lactate Dehydrogenase Total Creatine Kinase C-Reactive Protein Total Protein 5.8 L Albumin 2.3 L U Epithel Cells (Auto) Crossmatch 10/09/21 10/09/21 10/09/21 05:31 05:31 05:31 WBC RBC Hgb Hct MCH RDW Plt Count Wirt # (Auto) Seg Neutrophils % Seg Neuts % (Manual) Lymphocytes % (Manual) Monocytes % (Manual) Nucleated RBC % Seg Neutrophils # Seg Neutrophils # Man Lymphocytes # (Manual) Monocytes # (Manual) PT INR D-Dimer ABG pH ABG pO2 ABG HCO3 ABG O2 Saturation ABG Base Excess ABG Hemoglobin Oxyhemoglobin Sodium Potassium Chloride Carbon Dioxide BUN Creatinine Glucose POC Glucose Lactic Acid 2.20 H* Calcium Phosphorus Magnesium Ferritin 751.9 H Lactate Dehydrogenase Total Creatine Kinase C-Reactive Protein 15.90 H Total Protein Albumin U Epithel Cells (Auto) Crossmatch 10/09/21 10/09/21 10/09/21 05:31 08:45 12:08 WBC RBC Hgb Hct MCH RDW Plt Count Wirt # (Auto) Seg Neutrophils % Seg Neuts % (Manual) Lymphocytes % (Manual) Monocytes % (Manual) Nucleated RBC % Seg Neutrophils # Seg Neutrophils # Man Lymphocytes # (Manual) Monocytes # (Manual) PT INR D-Dimer > 86128 H ABG pH ABG pO2 54.3 L ABG HCO3 ABG O2 Saturation 86.6 L ABG Base Excess -2.6 L ABG Hemoglobin 7.2 L Oxyhemoglobin 85.3 L Sodium Potassium Chloride Carbon Dioxide BUN Creatinine Glucose POC Glucose Lactic Acid Calcium Phosphorus Magnesium Ferritin Lactate Dehydrogenase 472 H Total Creatine Kinase C-Reactive Protein Total Protein Albumin U Epithel Cells (Auto) Crossmatch 10/09/21 10/09/21 10/10/21 12:19 17:43 00:30 WBC RBC Hgb Hct MCH RDW Plt Count Wirt # (Auto) Seg Neutrophils % Seg Neuts % (Manual) Lymphocytes % (Manual) Monocytes % (Manual) Nucleated RBC % Seg Neutrophils # Seg Neutrophils # Man Lymphocytes # (Manual) Monocytes # (Manual) PT INR D-Dimer ABG pH ABG pO2 ABG HCO3 ABG O2 Saturation ABG Base Excess ABG Hemoglobin Oxyhemoglobin Sodium Potassium Chloride Carbon Dioxide BUN Creatinine Glucose POC Glucose 151 H 136 H 132 H Lactic Acid Calcium Phosphorus Magnesium Ferritin Lactate Dehydrogenase Total Creatine Kinase C-Reactive Protein Total Protein Albumin U Epithel Cells (Auto) Crossmatch 10/10/21 10/10/21 10/10/21 04:10 04:10 05:41 WBC 20.8 H RBC 2.54 L Hgb 7.1 L Hct 21.8 L MCH RDW 16.6 H Plt Count 740 H Wirt # (Auto) Seg Neutrophils % Seg Neuts % (Manual) Lymphocytes % (Manual) Monocytes % (Manual) Nucleated RBC % Seg Neutrophils # Seg Neutrophils # Man Lymphocytes # (Manual) Monocytes # (Manual) PT INR D-Dimer ABG pH ABG pO2 ABG HCO3 ABG O2 Saturation ABG Base Excess ABG Hemoglobin Oxyhemoglobin Sodium 130 L Potassium Chloride 97.9 L Carbon Dioxide 19 L BUN 37 H Creatinine 1.4 H Glucose 181 H POC Glucose 150 H Lactic Acid Calcium 7.8 L Phosphorus Magnesium Ferritin Lactate Dehydrogenase Total Creatine Kinase C-Reactive Protein Total Protein Albumin U Epithel Cells (Auto) Crossmatch 10/10/21 10/10/21 10/10/21 11:10 16:00 23:50 WBC RBC Hgb Hct MCH RDW Plt Count Wirt # (Auto) Seg Neutrophils % Seg Neuts % (Manual) Lymphocytes % (Manual) Monocytes % (Manual) Nucleated RBC % Seg Neutrophils # Seg Neutrophils # Man Lymphocytes # (Manual) Monocytes # (Manual) PT INR D-Dimer ABG pH ABG pO2 ABG HCO3 ABG O2 Saturation ABG Base Excess ABG Hemoglobin Oxyhemoglobin Sodium Potassium Chloride Carbon Dioxide BUN Creatinine Glucose POC Glucose 136 H 151 H 129 H Lactic Acid Calcium Phosphorus Magnesium Ferritin Lactate Dehydrogenase Total Creatine Kinase C-Reactive Protein Total Protein Albumin U Epithel Cells (Auto) Crossmatch 10/10/21 10/11/21 10/11/21 Unknown 03:30 03:30 WBC 23.2 H RBC 2.39 L Hgb 6.7 L Hct 20.3 L MCH RDW 16.7 H Plt Count 701 H Wirt # (Auto) Seg Neutrophils % Seg Neuts % (Manual) Lymphocytes % (Manual) Monocytes % (Manual) Nucleated RBC % Seg Neutrophils # Seg Neutrophils # Man Lymphocytes # (Manual) Monocytes # (Manual) PT INR D-Dimer ABG pH 7.505 H ABG pO2 246.1 H ABG HCO3 ABG O2 Saturation 99.4 H ABG Base Excess ABG Hemoglobin 6.0 L Oxyhemoglobin Sodium 135 L Potassium Chloride Carbon Dioxide 20 L BUN 38 H Creatinine 1.6 H Glucose 118 H POC Glucose Lactic Acid Calcium 7.9 L Phosphorus Magnesium Ferritin Lactate Dehydrogenase Total Creatine Kinase C-Reactive Protein Total Protein Albumin U Epithel Cells (Auto) Crossmatch 10/11/21 10/11/21 10/12/21 11:41 17:51 00:18 WBC RBC Hgb Hct MCH RDW Plt Count Wirt # (Auto) Seg Neutrophils % Seg Neuts % (Manual) Lymphocytes % (Manual) Monocytes % (Manual) Nucleated RBC % Seg Neutrophils # Seg Neutrophils # Man Lymphocytes # (Manual) Monocytes # (Manual) PT INR D-Dimer ABG pH ABG pO2 ABG HCO3 ABG O2 Saturation ABG Base Excess ABG Hemoglobin Oxyhemoglobin Sodium Potassium Chloride Carbon Dioxide BUN Creatinine Glucose POC Glucose 128 H 138 H 174 H Lactic Acid Calcium Phosphorus Magnesium Ferritin Lactate Dehydrogenase Total Creatine Kinase C-Reactive Protein Total Protein Albumin U Epithel Cells (Auto) Crossmatch 10/12/21 10/12/21 10/12/21 05:39 06:02 06:02 WBC 19.1 H RBC 3.56 L Hgb 10.0 L D Hct MCH RDW 17.0 H Plt Count 712 H Wirt # (Auto) Seg Neutrophils % Seg Neuts % (Manual) Lymphocytes % (Manual) Monocytes % (Manual) Nucleated RBC % Seg Neutrophils # Seg Neutrophils # Man Lymphocytes # (Manual) Monocytes # (Manual) PT INR D-Dimer ABG pH ABG pO2 ABG HCO3 ABG O2 Saturation ABG Base Excess ABG Hemoglobin Oxyhemoglobin Sodium Potassium Chloride Carbon Dioxide BUN 37 H Creatinine 1.5 H Glucose 172 H POC Glucose 158 H Lactic Acid Calcium 8.1 L Phosphorus Magnesium Ferritin Lactate Dehydrogenase Total Creatine Kinase C-Reactive Protein Total Protein Albumin U Epithel Cells (Auto) Crossmatch 10/12/21 10/12/21 10/12/21 06:02 17:43 23:28 WBC RBC Hgb Hct MCH RDW Plt Count Wirt # (Auto) Seg Neutrophils % Seg Neuts % (Manual) Lymphocytes % (Manual) Monocytes % (Manual) Nucleated RBC % Seg Neutrophils # Seg Neutrophils # Man Lymphocytes # (Manual) Monocytes # (Manual) PT 17.1 H INR 1.24 H D-Dimer ABG pH ABG pO2 ABG HCO3 ABG O2 Saturation ABG Base Excess ABG Hemoglobin Oxyhemoglobin Sodium Potassium Chloride Carbon Dioxide BUN Creatinine Glucose POC Glucose 173 H 178 H Lactic Acid Calcium Phosphorus Magnesium Ferritin Lactate Dehydrogenase Total Creatine Kinase C-Reactive Protein Total Protein Albumin U Epithel Cells (Auto) Crossmatch 10/12/21 10/13/21 10/13/21 Unknown 04:05 05:09 WBC RBC Hgb 10.0 L Hct MCH RDW Plt Count Wirt # (Auto) Seg Neutrophils % Seg Neuts % (Manual) Lymphocytes % (Manual) Monocytes % (Manual) Nucleated RBC % Seg Neutrophils # Seg Neutrophils # Man Lymphocytes # (Manual) Monocytes # (Manual) PT INR D-Dimer ABG pH ABG pO2 ABG HCO3 ABG O2 Saturation ABG Base Excess ABG Hemoglobin Oxyhemoglobin Sodium Potassium Chloride Carbon Dioxide BUN 34 H Creatinine Glucose 200 H POC Glucose 210 H Lactic Acid Calcium 7.5 L Phosphorus Magnesium 1.60 L Ferritin Lactate Dehydrogenase Total Creatine Kinase C-Reactive Protein Total Protein Albumin U Epithel Cells (Auto) Crossmatch 10/13/21 10:55 WBC RBC Hgb Hct MCH RDW Plt Count Wirt # (Auto) Seg Neutrophils % Seg Neuts % (Manual) Lymphocytes % (Manual) Monocytes % (Manual) Nucleated RBC % Seg Neutrophils # Seg Neutrophils # Man Lymphocytes # (Manual) Monocytes # (Manual) PT INR D-Dimer ABG pH ABG pO2 ABG HCO3 ABG O2 Saturation ABG Base Excess ABG Hemoglobin Oxyhemoglobin Sodium Potassium Chloride Carbon Dioxide BUN Creatinine Glucose POC Glucose 168 H Lactic Acid Calcium Phosphorus Magnesium Ferritin Lactate Dehydrogenase Total Creatine Kinase C-Reactive Protein Total Protein Albumin U Epithel Cells (Auto) Crossmatch Allied health notes reviewed: nursing
[2021-10-13 13:53] LABS: Hematocrit 27.7 % (30.3-42.9); Hemoglobin 9.2 gm/dl (10.1-14.3); Mean Corpuscular HGB Conc 33 % (30-34); Mean Corpuscular Volume 88 fl (79-97); Platelet Count 572 K/mm3 (140-440); Red Blood Count 3.14 M/mm3 (3.65-5.03); Red Cell Distribution Width 17.5 % (13.2-15.2)
--- NOTE | 2021-10-13 14:04 | Post Anesthesia Evaluation ---
- Post Anesthesia Evaluation Patient Participated: No (Patient intubated. Information obtained from RN. ) Airway Patent: Yes Stable Respiratory Function: Yes Nausea/Vomiting: No Temp > 96.8F: Yes Pain Manageable: Yes Adequeate Hydration: Yes Anesthesia Complications: No Block Receding Appropriately: Not Applicable Patient on Ventilator: Yes
--- NOTE | 2021-10-13 14:14 | Progress Note ---
Assessment and Plan Postop day #1 status post colorectal anastomosis takedown, with abdominal washout and ABThera wound VAC. Patient is afebrile and stable requiring minimal ventilator support. Abdominal sepsis is improving now that source is controlled. The plan is to take the patient to the OR tomorrow for a second look, abdominal washout, colostomy creation and hopefully abdominal closure. Creatinine is normalized, lack of full visualization of the left renal collecting system likely due to inflammation. Continue supportive care. Telephone consent received from mother for procedure tomorrow. Postop day #12 status post laparoscopic converted to open left hemicolectomy with appendectomy for perforated appendicitis with fistulization to sigmoid colon. Subjective Date of service: 10/13/21 Narrative: No acute event overnight. Objective Vital Signs - 12hr 10/13/21 10/13/21 10/13/21 02:30 03:00 03:30 Temperature Pulse Rate 101 H 99 H 102 H Pulse Rate [ From Monitor] Respiratory 14 14 10 L Rate Respiratory Rate [Lower Abdomen] Blood Pressure 94/58 92/55 115/83 O2 Sat by Pulse 99 100 100 Oximetry 10/13/21 10/13/21 10/13/21 04:00 04:30 05:00 Temperature 98.6 F Pulse Rate 102 H 98 H 99 H Pulse Rate [ 105 H From Monitor] Respiratory 17 16 14 Rate Respiratory 16 Rate [Lower Abdomen] Blood Pressure 106/66 107/61 109/64 O2 Sat by Pulse 100 100 100 Oximetry 10/13/21 10/13/21 10/13/21 05:30 06:00 06:30 Temperature Pulse Rate 96 H 100 H 100 H Pulse Rate [ From Monitor] Respiratory 13 15 13 Rate Respiratory Rate [Lower Abdomen] Blood Pressure 116/69 109/63 104/59 O2 Sat by Pulse 100 99 100 Oximetry 10/13/21 10/13/21 10/13/21 07:00 07:18 07:30 Temperature 99.3 F Pulse Rate 98 H 100 H Pulse Rate [ From Monitor] Respiratory 14 15 Rate Respiratory Rate [Lower Abdomen] Blood Pressure 94/52 99/56 O2 Sat by Pulse 100 100 Oximetry 10/13/21 10/13/21 10/13/21 08:00 08:10 08:30 Temperature Pulse Rate 97 H 97 H 98 H Pulse Rate [ From Monitor] Respiratory 15 16 Rate Respiratory Rate [Lower Abdomen] Blood Pressure 90/53 92/50 95/54 O2 Sat by Pulse 100 100 100 Oximetry 10/13/21 10/13/21 10/13/21 09:00 09:30 10:00 Temperature Pulse Rate 97 H 99 H 96 H Pulse Rate [ From Monitor] Respiratory 14 14 14 Rate Respiratory Rate [Lower Abdomen] Blood Pressure 91/52 101/57 93/52 O2 Sat by Pulse 100 100 100 Oximetry 10/13/21 10/13/21 10/13/21 10:30 11:00 11:30 Temperature Pulse Rate 110 H 105 H 94 H Pulse Rate [ From Monitor] Respiratory 17 22 9 L Rate Respiratory Rate [Lower Abdomen] Blood Pressure 115/67 106/59 102/54 O2 Sat by Pulse 100 100 100 Oximetry 10/13/21 10/13/21 12:30 12:56 Temperature 99.5 F Pulse Rate 94 H Pulse Rate [ From Monitor] Respiratory Rate Respiratory Rate [Lower Abdomen] Blood Pressure 106/59 O2 Sat by Pulse 99 Oximetry - General physical appearance well developed, well nourished, no distress, no pain - Respiratory normal expansion, normal respiratory effort, other (Patient intubated on ventilator with minimal support) - Abdomen soft, other (Abdominal wound VAC in place with serosanguineous drainage, left flank drain with old purulent drainage minimal output.) - Genitourinary other (Doss in place with mild hematuria) - Labs 10/12/21 Unknown 10/13/21 04:05 Diabetes panel 10/13/21 Range/Units 04:05 Sodium 138 (137-145) mmol/L Potassium 3.9 (3.6-5.0) mmol/L Chloride 106.0 (98-107) mmol/L Carbon Dioxide 22 (22-30) mmol/L BUN 34 H (7-17) mg/dL Creatinine 1.1 (0.6-1.2) mg/dL Glucose 200 H (65-100) mg/dL Calcium 7.5 L (8.4-10.2) mg/dL Calcium panel 10/13/21 Range/Units 04:05 Calcium 7.5 L (8.4-10.2) mg/dL Phosphorus 3.80 (2.5-4.5) mg/dL Pituitary panel 10/13/21 Range/Units 04:05 Sodium 138 (137-145) mmol/L Potassium 3.9 (3.6-5.0) mmol/L Chloride 106.0 (98-107) mmol/L Carbon Dioxide 22 (22-30) mmol/L BUN 34 H (7-17) mg/dL Creatinine 1.1 (0.6-1.2) mg/dL Glucose 200 H (65-100) mg/dL Calcium 7.5 L (8.4-10.2) mg/dL Adrenal panel 10/13/21 Range/Units 04:05 Sodium 138 (137-145) mmol/L Potassium 3.9 (3.6-5.0) mmol/L Chloride 106.0 (98-107) mmol/L Carbon Dioxide 22 (22-30) mmol/L BUN 34 H (7-17) mg/dL Creatinine 1.1 (0.6-1.2) mg/dL Glucose 200 H (65-100) mg/dL Calcium 7.5 L (8.4-10.2) mg/dL
--- NOTE | 2021-10-13 16:22 | Progress Note ---
Assessment and Plan Cultures: Blood culture no growth so far Wound culture VRE A/P: 31-year-old female past medical history obesity, nephrolithiasis now with: #Acute sepsis: Present with leukocytosis and tachycardia. Secondary to intra- abdominal infection #Acute hypoxic resp failure: fluid overload more likely, but possible pneumonia. #Pericolonic abscesses with appendiceal rupture and fistulization: Status post washout of abscesses, cultures now with VRE. #BRYANNA: Renally dose medications #Obesity Recs: -Changed to linezolid due to poor response/possible pneumonia. -Continue metronidazole. -Added fluconazole 400mg qday -Agree with addition of cefepime given hypoxic respiratory failure, though that may be secondary to volume overload. Thank you for the consult, we will continue to follow. Josefina Perry MD [facility] O: [phone] F: [phone] Subjective Date of service: 10/13/21 Principal diagnosis: Septic shock; AHRF; PNA; BRYANNA; s/p appendectomy; VRE infection; Peritonitis Interval history: Afebrile, white count persistently elevated 23.8. Imaging personally reviewed: Chest x-ray: Left suprahilar opacities. Objective - Exam Narrative Exam: Physical Exam: Constitutional: Alert, cooperative. No acute distress Head, Ears, Nose: Normocephalic, atraumatic. External ears, nose normal Eyes: Conjunctivae/corneas clear. No icterus. No ptosis. Neck: Supple, no meningeal signs Oral: dentition fair, no thrush Cardiovascular: S1, S2 normal. Respiratory: Good air entry, clear to auscultation bilaterally GI: Appropriately tender postoperatively, YURIDIA drain in place Musculoskeletal: No pedal edema, no cyanosis. Skin: No rash or abscess Hem/Lymphatic: No palpable cervical or supraclavicular nodes. No lymphangitis Psych: Mood ok. Affect normal Neurological: Awake, alert, oriented. No gross abnormality - Constitutional Vitals: Vital Signs Temp Pulse Resp BP Pulse Ox 99.5 F 94 H 9 L 106/59 99 10/13/21 12:56 10/13/21 12:30 10/13/21 11:30 10/13/21 12:30 10/13/21 12:30 Temperature -Last 24 Hours Temperature 99.5 F Temperature 99.3 F Temperature 98.6 F Temperature 97.5 F Temperature 98.1 F - Labs CBC & Chem 7: 10/13/21 13:34 10/13/21 04:05 Labs: Abnormal lab results 10/12/21 10/12/21 10/13/21 Range/Units 17:43 23:28 04:05 WBC (4.5-11.0) K/mm3 RBC (3.65-5.03) M/mm3 Hgb (10.1-14.3) gm/dl Hct (30.3-42.9) % RDW (13.2-15.2) % Plt Count (140-440) K/mm3 BUN 34 H (7-17) mg/dL Glucose 200 H (65-100) mg/dL POC Glucose 173 H 178 H (70-105) mg/dL Calcium 7.5 L (8.4-10.2) mg/dL Magnesium 1.60 L (1.7-2.3) mg/dL 10/13/21 10/13/21 10/13/21 Range/Units 05:09 10:55 13:34 WBC 23.8 H (4.5-11.0) K/mm3 RBC 3.14 L (3.65-5.03) M/mm3 Hgb 9.2 L (10.1-14.3) gm/dl Hct 27.7 L (30.3-42.9) % RDW 17.5 H (13.2-15.2) % Plt Count 572 H (140-440) K/mm3 BUN (7-17) mg/dL Glucose (65-100) mg/dL POC Glucose 210 H 168 H (70-105) mg/dL Calcium (8.4-10.2) mg/dL Magnesium (1.7-2.3) mg/dL 10/13/21 Range/Units 15:35 WBC (4.5-11.0) K/mm3 RBC (3.65-5.03) M/mm3 Hgb (10.1-14.3) gm/dl Hct (30.3-42.9) % RDW (13.2-15.2) % Plt Count (140-440) K/mm3 BUN (7-17) mg/dL Glucose (65-100) mg/dL POC Glucose 154 H (70-105) mg/dL Calcium (8.4-10.2) mg/dL Magnesium (1.7-2.3) mg/dL
[2021-10-13] MEDS ORDERED: TOTAL PARENTERAL NUTRITION 1,999.92 ML IV SCH (20:00)
[2021-10-14] MEDS: fentaNYL DRIP Premix 2,000 MCG/100 ML BAG IV SCH ×6 (00:15→22:35)
[2021-10-14] MEDS: INSULIN REGULAR, HUMAN 100 UNITS/1 ML SUB-Q SCH ×3 (00:24→18:57)
[2021-10-14] MEDS: LINEZOLID 600 MG/300 ML BAG IV SCH (03:59)
[2021-10-14 04:47] LABS: Hematocrit 26.3 % (30.3-42.9); Hemoglobin 8.4 gm/dl (10.1-14.3); Mean Corpuscular HGB Conc 32 % (30-34); Mean Corpuscular Volume 88 fl (79-97); Platelet Count 561 K/mm3 (140-440); Red Blood Count 2.98 M/mm3 (3.65-5.03); Red Cell Distribution Width 17.1 % (13.2-15.2)
[2021-10-14 04:54] LABS: INR 1.41 (0.87-1.13)
[2021-10-14 04:55] LABS: Partial Thromboplastin Time 33.9 Sec. (24.2-36.6)
[2021-10-14 05:05] LABS: BUN/Creatinine Ratio 33; Blood Urea Nitrogen 33 mg/dL (7-17); Calcium 7.4 mg/dL (8.4-10.2); Hemolysis Index 16
--- NOTE | 2021-10-14 05:40 | XRay Report ---
CHEST 1 VIEW INDICATION / CLINICAL INFORMATION: follow up respiratory failure. COMPARISON: Chest x-ray 10/13/2021 FINDINGS: SUPPORT DEVICES: Stable, satisfactory device positioning. HEART / MEDIASTINUM: No significant interval change. LUNGS / PLEURA: Prominent central vasculature likely accentuated by low lung volumes. Mild venous hyp ertension not excluded. Lungs are clear. No pneumothorax. ADDITIONAL FINDINGS: No significant additional findings. IMPRESSION: 1. Prominent central vasculature could reflect evidence of crowding, pulmonary venous hypertension an d/or mild volume overload are not excluded. Signer Name: Lukas Elizabeth II, MD Signed: 10/14/2021 5:35 AM Workstation Name: [id number]
[2021-10-14] MEDS ORDERED: SODIUM CHLORIDE 0.9% 500 ML 500 ML IV ONE (05:54)
[2021-10-14] MEDS: metroNIDAZOLE/NS 500 MG/100 ML 500 MG/100 ML BAG IV SCH (08:46)
[2021-10-14] MEDS: CEFEPIME/NS 2 GM/100 ML 2 GM/100 ML BAG IV SCH (09:22)
[2021-10-14] MEDS: FLUCONAZOLE 400 MG 200 ML IV SCH (09:23)
[2021-10-14] MEDS: INSULIN GLARGINE 100 UNITS/ML SUB-Q SCH (09:30)
--- NOTE | 2021-10-14 09:40 | Progress Note ---
Assessment and Plan - Patient Problems (1) Acute respiratory failure with hypoxia Current Visit: Yes Status: Acute Plan to address problem: Patient intubated at this time. Ventilator management per ICU team. CT chest reviewed and concerning for worsening bilateral opacities secondary to pneumonia versus fluid overload and pulmonary edema. Responded well with lasix therapy and now down to Fio2 30 %. Agree with holding further lasix at this time as she remains non-oliguric with increased urine output. (2) Acute renal failure Current Visit: Yes Status: Acute Plan to address problem: Overall renal function has stabilized over the last couple of days. Will monitor closely. Avoid all nephrotoxins and maintain mean arterial pressures above 65 mmHg. She did undergo cystoscopy with bilateral retropyelogram along with bilateral external ureteral stent placement with adequate urine output noted in [place] postoperatively. We will continue to follow closely. (3) Appendicitis with perforation Current Visit: Yes Status: Acute Plan to address problem: Status post left hemicolectomy with appendectomy Complicated by CT evidence of extraluminal gas in a contained collection,s/p CT guided drainage. Now with concerns of dehiscence of surgical suture lines in colon,s/p ex-lap and diverting ileostomy. (4) Hypoalbuminemia due to protein-calorie malnutrition Current Visit: Yes Status: Acute Plan to address problem: Continuing on TPN at this time. (5) Hypokalemia Current Visit: Yes Status: Acute Plan to address problem: Replete per protocol. Subjective Date of service: 10/14/21 Principal diagnosis: Septic shock; AHRF; PNA; BRYANNA; s/p appendectomy; VRE infection; Peritonitis Interval history: Patient seen this morning. No acute changes overnight. Remains intubated. Cultures are growing vancomycin-resistant Enterococcus at this time. Antibiotics changed to linezolid per infectious disease recommendations. Renal function remained stable. Remains nonoliguric at this time. Objective - Vital Signs Vital signs: Vital Signs - 12hr 10/13/21 10/13/21 10/13/21 22:00 22:14 22:30 Temperature Pulse Rate 84 87 83 Pulse Rate [ From Monitor] Respiratory 11 L 16 15 Rate Blood Pressure 124/69 124/69 114/62 O2 Sat by Pulse 100 100 100 Oximetry 10/13/21 10/13/21 10/13/21 23:00 23:25 23:30 Temperature Pulse Rate 85 81 81 Pulse Rate [ From Monitor] Respiratory 14 12 Rate Blood Pressure 115/65 113/66 113/66 O2 Sat by Pulse 100 100 100 Oximetry 10/14/21 10/14/21 10/14/21 00:00 00:30 01:00 Temperature 98.2 F Pulse Rate 81 81 79 Pulse Rate [ 81 From Monitor] Respiratory 18 13 16 Rate Blood Pressure 115/60 108/57 110/57 O2 Sat by Pulse 100 100 100 Oximetry 10/14/21 10/14/21 10/14/21 01:30 02:00 02:30 Temperature Pulse Rate 79 79 78 Pulse Rate [ From Monitor] Respiratory 13 13 13 Rate Blood Pressure 116/61 114/61 118/66 O2 Sat by Pulse 100 100 100 Oximetry 10/14/21 10/14/21 10/14/21 03:00 03:30 03:36 Temperature 98.6 F Pulse Rate 76 82 Pulse Rate [ From Monitor] Respiratory 14 12 Rate Blood Pressure 117/65 118/63 O2 Sat by Pulse 99 100 Oximetry 10/14/21 10/14/21 10/14/21 03:55 04:00 04:30 Temperature Pulse Rate 81 92 H 109 H Pulse Rate [ 81 From Monitor] Respiratory 14 19 Rate Blood Pressure 116/64 123/78 114/63 O2 Sat by Pulse 100 99 100 Oximetry 10/14/21 10/14/21 10/14/21 05:00 05:30 06:00 Temperature Pulse Rate 105 H 81 84 Pulse Rate [ From Monitor] Respiratory 12 13 15 Rate Blood Pressure 139/85 117/62 114/61 O2 Sat by Pulse 100 100 100 Oximetry 10/14/21 10/14/21 07:10 08:32 Temperature 98.9 F Pulse Rate 79 Pulse Rate [ From Monitor] Respiratory Rate Blood Pressure 114/65 O2 Sat by Pulse 100 Oximetry - General Appearance General appearance: intubated EENT: ATNC Neck: no JVD Respiratory: Present: Clear to Ascultation Cardiology: regular Gastrointestinal: normal Integumentary: warm and dry Musculoskeletal: deferred - Lab 10/14/21 04:05 10/14/21 04:05 Most recent lab results ABG pH 7.505 pH Units (7.350-7.450) H 10/10/21 Unknown ABG pCO2 27.6 mm Hg 10/10/21 Unknown ABG pO2 246.1 mm Hg (80.0-90.0) H 10/10/21 Unknown ABG HCO3 21.3 mmol/L (20.0-26.0) 10/10/21 Unknown ABG O2 Saturation 99.4 % (95.0-99.0) H 10/10/21 Unknown Calcium 7.4 mg/dL (8.4-10.2) L 10/14/21 04:05 Phosphorus 3.80 mg/dL (2.5-4.5) 10/14/21 04:05 Magnesium 2.10 mg/dL (1.7-2.3) 10/14/21 04:05 - Allied health notes Allied health notes reviewed: nursing Medications & Allergies - Medications Allergies/Adverse Reactions: Allergies No Known Allergies Allergy (Verified 09/24/21 12:21) Home Medications: Home Medications Medication Instructions Recorded Confirmed Last Taken Type No Known Home Medications [No 09/27/21 09/27/21 Unknown History Reported Home Medications] Active Medications: Generic Name Dose Route Start Last Admin Trade Name Freq PRN Reason Stop Dose Admin Acetaminophen 650 mg 10/08/21 21:38 Acetaminophen 325 Mg Tab PO Q6H PRN Pain, Mild (1-3) Albuterol 2.5 mg 09/24/21 18:07 Albuterol 2.5 Mg/3 Ml Nebu IH Q4HRT PRN Shortness Of Breath Dextrose 0 ml 10/03/21 12:37 Dextrose 10% *Hypoglycemia IV PRN PRN Hypoglycemia Diphenhydramine HCl 25 mg 10/04/21 15:14 10/07/21 00:34 Diphenhydramine 50 Mg/Ml Vial IV 25 mg Q6H PRN Administration Itching Famotidine 20 mg 10/08/21 22:00 10/13/21 21:39 Famotidine 20 Mg/2 Ml Inj IV 20 mg BID JAZ Administration Fentanyl 50 mcg 10/08/21 22:10 Fentanyl 100 Mcg/2 Ml Inj IV Q10MIN PRN ANALGESIA Hydromorphone HCl 0.25 mg 10/08/21 21:38 Hydromorphone 1 Mg/1 Ml Inj IV Q4H PRN Pain, Moderate (4-6) Hydrophilic Ointment 1 applic 10/08/21 21:00 Lip Therapy Vaseline TP Q2HR PRN Dry Lips Metronidazole 500 mg in 100 mls @ 100 mls/hr 10/02/21 16:00 10/14/21 08:46 Flagyl 500 Mg/100 Ml IV 100 mls/hr Q8H JAZ Administration Protocol Linezolid 600 mg in 300 mls @ 300 mls/hr 10/08/21 15:00 10/14/21 03:59 Zyvox 600mg/300ml IV 300 mls/hr Q12H JAZ Administration Protocol Propofol 1,000 mg in 100 mls @ 2.694 mls/hr 10/08/21 21:00 10/14/21 07:30 Diprivan 10 Mg/Ml IV 35 mcg/kg/min TITR JAZ 18.858 mls/hr Administration Protocol 5 MCG/KG/MIN Cefepime HCl 2 gm in 100 mls @ 200 mls/hr 10/08/21 22:00 10/14/21 09:22 Cefepime/Ns 2 Gm/100 Ml IV 200 mls/hr Q12H JAZ Administration Protocol Fentanyl Citrate 2,000 mcg in 100 mls @ 4.49 mls/hr 10/08/21 23:00 10/14/21 08:47 Fentanyl Drip Premix IV 4 mcg/kg/hr TITR JAZ 17.96 mls/hr Administration Protocol 1 MCG/KG/HR Vasopressin 20 unit/ Sodium 101 mls @ 9.09 mls/hr 10/08/21 23:00 10/09/21 14:30 Chloride IV 0 units/min TITR JAZ 0 mls/hr Titration Protocol 0.03 UNITS/MIN NORepinephrine/NS 8 MG-250 ML 8 mg in 250 mls @ 3.75 mls/hr 10/08/21 23:45 Norepinephrine/Ns 8 Mg-250 Ml (Double Conc) IV TITRATE JAZ Protocol 2 MCG/MIN Fluconazole 200 mls @ 100 mls/hr 10/13/21 10:00 10/14/21 09:23 Diflucan IV 100 mls/hr Q24HR JAZ Administration Protocol Amino Acids/Electrolytes/Dextrose 1,999.92 mls @ 83.33 mls/hr 10/13/21 20:00 10/13/21 20:35 Tpn Adult IV 10/14/21 19:59 83.33 mls/hr DAILY@2000 JAZ Administration Protocol Insulin Glargine 5 units 10/13/21 10:00 10/14/21 09:30 Insulin Glargine 100 Units/Ml SUB-Q 5 units QDAY JAZ Administration Insulin Human Regular 0 units 10/10/21 00:00 10/14/21 00:24 Insulin Regular, Human 100 Units/1 Ml SUB-Q Not Given Q6HR [facility] Protocol Labetalol HCl 10 mg 10/01/21 08:31 10/12/21 16:58 Labetalol 20 Mg/4 Ml Inj IV 10 mg Q6H PRN Administration Hypertension Multi-Ingred Cream/Lotion/Oil/Oint 1 applic 10/08/21 21:00 Mineral Oil/Petrolatum, White Ophth Oint 3.5 Gm OU Q4HR PRN Dry Eye(s) Naloxone HCl 0.1 mg 10/03/21 14:00 Naloxone 0.4 Mg/1 Ml Inj IV Q2MIN PRN Res Rate </= 8 or 02 SAT < 92% Ondansetron HCl 4 mg 09/24/21 18:07 10/05/21 11:39 Ondansetron 4 Mg/2 Ml Inj IV 4 mg Q8H PRN Administration Nausea And Vomiting Phenol 1 spray 10/02/21 13:00 10/03/21 10:23 Phenol 1.4% 177 Ml Bottle MM 1 spray PRN PRN Administration Sore Throat Scopolamine 1 each 10/04/21 10:00 10/13/21 09:20 Scopolamine Transdermal Patch 72 Hr TD 1 each Q3D JAZ Administration Sodium Chloride 10 ml 09/24/21 22:00 10/14/21 09:24 Sodium Chloride 0.9% 10 Ml Flush Syringe IV 10 ml BID JAZ Administration Sodium Chloride 10 ml 09/24/21 18:07 09/25/21 08:34 Sodium Chloride 0.9% 10 Ml Flush Syringe IV 10 ml PRN PRN Administration LINE FLUSH
--- NOTE | 2021-10-14 09:57 | Progress Note ---
Assessment and Plan Assessment and plan: This is a 31-year-old female with obesity and nephrolithiasis admitted with pericolonic abscess secondary to contained perforated diverticulitis, peritonitis complicated by acute blood loss anemia, acute kidney injury and acute hypoxic respiratory failure. Neuro: Sedated -Sedated with propofol and fentanyl -RASS goal 0 to -1 -keep comfortable until abd closure -Avoid delirium -Reorientation as needed -Maintain sleep-wake cycle -Daily SAT as appropriate -Bilateral soft restraints in place for patient safety Cardiac: NAD -Blood pressure monitoring per protocol -s/p vasopressor support with Levophed and vasopressin -MAP goal greater than 65 -Echocardiogram shows normal right ventricular function, LVEF 55 to 60% Respiratory: Acute hypoxic respiratory failure -[facility] consulted, appreciate recommendations -Intubated s/p code met on 10/08 with 7.50 ETT at 24 the lips -A.m. vent settings: Assist-control rate 12, tidal volume 425, PEEP 6, FiO2 30% -hold off weaning vent till abd closure -A.m. 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, diverticulitis with abscess, moderate protein calorie malnutrition, h/o obesity -Surgery consulted, appreciate recommendations -S/p washout of pericolonic abscess on 09/26/2021 -S/p open left hemicolectomy, appendectomy and partial omentectomy on 10/01 -10/09 CT abdomen/pelvis showed a new collection of air within the left midabdomen -Scheduled for CT guided drain placement with IR -IR findings: Fluid collections abutting the colonic anastamosis and drain passed into the colon originally requiring retraction into the fluid collection, left mild to moderate hydronephrosis, 700 ml brown serous fluid from the mid abdominal drain (drain #1), 200 mL brown thick fluid from the left lateral drain (drain #2) -24 hours: -1596 ml -Left lateral abdominal drain 170 ml-serosanginous -MLA wound vac 1000 ml-serosanginous -PPI -TPN -NGT to LIS -10/13 NGT 100 mL bilious drainage : Acute kidney injury secondary to vasomotor nephropathy versus contrast induced, Possible Bladder injury -Nephrology and urology consulted, appreciate recommendations -Strict intake and output -Renally dose medications -Avoid nephrotoxic medications -Daily weights -s/p IV Lasix nephrology -Trend BMP -Repeat magnesium -S/p bilateral ureteral stents -10/12 Intra-Op cystoscopy completed and bilateral ureteral stents placed (removed 10/13) ID: Acute sepsis secondary to pericolonic abscess with appendiceal rupture fistulization, peritonitis, VRE and jean marie albicans in wound culture -Infectious disease consulted, appreciate recommendations -COVID 19 PCR negative -S/p drain placement and diagnostic laparotomy on 09/26 -Antibiotic therapy with linezolid, Flagyl, and fluconazole -stop cefepime -f/u blood culture -Monitor WBC and temperature curve Endo: NAD -Avoid hypoglycemia -SSI -Accu-Cheks q6 -Long-acting insulin, titrate as needed Heme: Acute blood loss anemia, elevated D-dimer, hematuria, leukocytosis, thrombocytosis -Patient had hematuria after ureteral injury sustained from surgical procedures -Urology consulted, appreciate recommendation -10/09 CTA chest with no evidence of PE. Findings suggesting multifocal pneumonia vs pulmonary edema -Bilateral lower extremity Doppler ultrasound shows no sonographic evidence of DVT however shows subcutaneous edema in lower extremities -Trend CBC -Transfuse hemoglobin less than 7 -S/p 6 units PRBC -Monitor for signs of bleeding -SCDs to BLE while in bed -Heparin subq The high probability of a clinically significant, sudden or life threatening deterioration of the [multi] system(s) required my full and direct attention, intervention and personal management. The aggregate critical care time was [60] minutes. This time is in addition to time spent performing reported procedures but includes the following: [x] Data Review and interpretation [x] Patient assessment and monitoring of vital signs [x] Documentation [x] Medication orders and management Disposition Plan: icu Total Time Spent with Patient (Minutes): 60 History Interval history: This is a 31-year-old female with obesity and nephrolithiasis admitted with complaints of abdominal pain, lower back pain, nausea no with episodes of vomiting over the past dayon 09/24. Patient underwent a CT scan of the abdomen and pelvis and was found to have acute diverticulitis complicated by sepsis and was admitted to the medical floor initiated sepsis protocol. Surgery team was consulted in the emergency department. ICU Course to Date: 10/09: Intubated and sedated, RASS -1 to -2. Recent CXR noted with worsen bilateral opacities with persistent leukocytosis, elevated lactic, and now on 2 pressors. Patient remains afebrile, and already on IV Abx per ID. Will swab patient for COVID. Given recent surgery orders placed for CTA chest, CT Abd/plevis. And also BLE dopplers due to elevated D-Dimer. Renal function is improving, additional IVF to flush out kidney post contrast, Nephrology is also following. Continue TPN and NGT to LIS. 10/10: COVID PCR negative. CTA chest and Abd/plevis noted. No evidence of PE. Patient received X1 dose of 20mg IV lasix per Nephro for pulmonary edema, this am CXR with some improvement, renal function is also improving. Wean vent setting as tolerated per CCM. Plan for possible CT guided drainage placement in IR tomorrow. Continue TPN and NGT to LIS. 10/11: Patient with anemia, 1 unit PRBC, scheduled for CT-guided drain image of air pocket. Will place on CPAP on return. Slightly worsening renal function but nephrology is on the case. 10/12: Taken to OR today for diverting ileostomy, given 3 units PRBC yesterday and appropriate response. Surgical culture grew yeast and ID added added fluconazole. 10/13: Hypomagnesemia repleted, renal function improving. Patient remains sedated with fentanyl and propofol. Updated sister and father at bedside. Ureteral stents removed at bedside. Plan to to take patient to the OR tomorrow for second look, abdominal washout, colostomy creation on hold for abdominal closure by surgery. We will hold p.m. dose of heparin. 10/14: Plan to take patient back to OR today, prophylactic anticougulation on hold. 2 units prbc on hold for surgery. Plan to close abd and colostomy creation. Vent weaning on hold till abd closure Hospitalist Physical - Constitutional Vitals: Temp Pulse Resp BP Pulse Ox 98.9 F 79 15 114/65 100 10/14/21 07:10 10/14/21 08:32 10/14/21 06:00 10/14/21 08:32 10/14/21 08:32 General appearance: Present: no acute distress, well-nourished, other (Intubated and Sedated) - EENT Eyes: Present: PERRL, EOM intact ENT: dentition normal - Neck Neck: Present: normal ROM - Respiratory Respiratory effort: normal Respiratory: bilateral: CTA, diminished - Cardiovascular Rhythm: regular Heart Sounds: Present: S1 & S2. Absent: systolic murmur, diastolic murmur - Extremities Extremities: no ischemia, pulses intact, pulses symmetrical, normal temperature, normal color Extremity abnormal: edema - Peripheral Assessment Bilateral Generalized Edema Type: Pitting Edema Degree: 1+ Capillary Refill: < 3 seconds Skin Temperature: Warm Peripheral Pulses: within normal limits - Abdominal General gastrointestinal: soft, non-tender, hypoactive bowel sounds - Integumentary Integumentary: Present: warm, dry - Psychiatric Psychiatric: other (sedated) - Neurologic Neurologic: other (sedated) - Allied Health Allied health notes reviewed: nursing, RT, social work Results - Labs CBC & Chem 7: 10/14/21 04:05 10/14/21 04:05 Labs: Laboratory Last Values WBC 19.4 K/mm3 (4.5-11.0) H 10/14/21 04:05 RBC 2.98 M/mm3 (3.65-5.03) L 10/14/21 04:05 Hgb 8.4 gm/dl (10.1-14.3) L 10/14/21 04:05 Hct 26.3 % (30.3-42.9) L 10/14/21 04:05 MCV 88 fl (79-97) 10/14/21 04:05 MCH 28 pg (28-32) 10/14/21 04:05 MCHC 32 % (30-34) 10/14/21 04:05 RDW 17.1 % (13.2-15.2) H 10/14/21 04:05 Plt Count 561 K/mm3 (140-440) H 10/14/21 04:05 Graves % (Auto) 5.9 % (0.0-7.3) 09/28/21 04:55 Eos % (Auto) 0.4 % (0.0-4.3) 09/28/21 04:55 Graves # (Auto) 0.9 K/mm3 (0.0-0.8) H 09/28/21 04:55 Eos # (Auto) 0.1 K/mm3 (0.0-0.4) 09/28/21 04:55 Baso # (Auto) 0.0 K/mm3 (0.0-0.1) 09/28/21 04:55 Add Manual Diff Complete 10/09/21 05:31 Total Counted 100 10/09/21 05:31 Seg Neutrophils % [employer] Operator 10/03/21 04:55 Seg Neuts % (Manual) 88.0 % (40.0-70.0) H 10/09/21 05:31 Band Neutrophils % 0 % 10/09/21 05:31 Lymphocytes % (Manual) 3.0 % (13.4-35.0) L 10/09/21 05:31 Reactive Lymphs % (Man) 1.0 % 10/09/21 05:31 Monocytes % (Manual) 6.0 % (0.0-7.3) 10/09/21 05:31 Eosinophils % (Manual) 2.0 % (0.0-4.3) 10/09/21 05:31 Basophils % (Manual) 0 % (0.0-1.8) 10/09/21 05:31 Metamyelocytes % 0 % 10/09/21 05:31 Myelocytes % 0 % 10/09/21 05:31 Promyelocytes % 0 % 10/09/21 05:31 Blast Cells % 0 % 10/09/21 05:31 Nucleated RBC % Not Reportable 10/09/21 05:31 Seg Neutrophils # 14.0 K/mm3 (1.8-7.7) H 09/28/21 04:55 Seg Neutrophils # Man 17.9 K/mm3 (1.8-7.7) H 10/09/21 05:31 Band Neutrophils # 0.0 K/mm3 10/09/21 05:31 Lymphocytes # (Manual) 0.6 K/mm3 (1.2-5.4) L 10/09/21 05:31 Abs React Lymphs (Man) 0.2 K/mm3 10/09/21 05:31 Monocytes # (Manual) 1.2 K/mm3 (0.0-0.8) H 10/09/21 05:31 Eosinophils # (Manual) 0.4 K/mm3 (0.0-0.4) 10/09/21 05:31 Basophils # (Manual) 0.0 K/mm3 (0.0-0.1) 10/09/21 05:31 Metamyelocytes # 0.0 K/mm3 10/09/21 05:31 Myelocytes # 0.0 K/mm3 10/09/21 05:31 Promyelocytes # 0.0 K/mm3 10/09/21 05:31 Blast Cells # 0.0 K/mm3 10/09/21 05:31 Pathologist Review 09/24/21 14:58 WBC Morphology Not Reportable 10/09/21 05:31 Hypersegmented Neuts Not Reportable 10/09/21 05:31 Hyposegmented Neuts Not Reportable 10/09/21 05:31 Hypogranular Neuts Not Reportable 10/09/21 05:31 Smudge Cells Not Reportable 10/09/21 05:31 Toxic Granulation Not Reportable 10/09/21 05:31 Toxic Vacuolation Not Reportable 10/09/21 05:31 Dohle Bodies Not Reportable 10/09/21 05:31 Pelger-Huet Anomaly Not Reportable 10/09/21 05:31 Marlene Rods Not Reportable 10/09/21 05:31 Platelet Estimate Consistent w auto 10/09/21 05:31 Clumped Platelets Not Reportable 10/09/21 05:31 Plt Clumps, EDTA Not Reportable 10/09/21 05:31 Large Platelets Not Reportable 10/09/21 05:31 Giant Platelets Not Reportable 10/09/21 05:31 Platelet Satelliting Not Reportable 10/09/21 05:31 Plt Morphology Comment Not Reportable 10/09/21 05:31 RBC Morphology Not Reportable 10/09/21 05:31 Dimorphic RBCs Not Reportable 10/09/21 05:31 Polychromasia Not Reportable 10/09/21 05:31 Hypochromasia Not Reportable 10/09/21 05:31 Poikilocytosis Not Reportable 10/09/21 05:31 Anisocytosis 1+ 10/09/21 05:31 Microcytosis Not Reportable 10/09/21 05:31 Macrocytosis Not Reportable 10/09/21 05:31 Spherocytes Not Reportable 10/09/21 05:31 Pappenheimer Bodies Not Reportable 10/09/21 05:31 Sickle Cells Not Reportable 10/09/21 05:31 Target Cells Not Reportable 10/09/21 05:31 Tear Drop Cells Not Reportable 10/09/21 05:31 Ovalocytes Not Reportable 10/09/21 05:31 Helmet Cells Not Reportable 10/09/21 05:31 [place] Bodies Not Reportable 10/09/21 05:[address] Rings Not Reportable 10/09/21 05:31 Anusha Cells Not Reportable 10/09/21 05:31 Bite Cells Not Reportable 10/09/21 05:31 Crenated Cell Not Reportable 10/09/21 05:31 Elliptocytes Not Reportable 10/09/21 05:31 Acanthocytes (Spur) Not Reportable 10/09/21 05:31 Rouleaux Not Reportable 10/09/21 05:31 Hemoglobin C Crystals Not Reportable 10/09/21 05:31 Schistocytes Not Reportable 10/09/21 05:31 Malaria parasites Not Reportable 10/09/21 05:31 Flaco Bodies Not Reportable 10/09/21 05:31 Hem Pathologist Commnt No 10/09/21 05:31 PT 19.0 Sec. (12.2-14.9) H 10/14/21 04:05 INR 1.41 (0.87-1.13) H 10/14/21 04:05 APTT 33.9 Sec. (24.2-36.6) 10/14/21 04:05 D-Dimer > 11258 ng/mlDDU (0-234) H 10/09/21 08:45 ABG pH 7.505 pH Units (7.350-7.450) H 10/10/21 Unknown ABG pCO2 27.6 mm Hg 10/10/21 Unknown ABG pO2 246.1 mm Hg (80.0-90.0) H 10/10/21 Unknown ABG HCO3 21.3 mmol/L (20.0-26.0) 10/10/21 Unknown ABG O2 Saturation 99.4 % (95.0-99.0) H 10/10/21 Unknown ABG O2 Content 8.9 (0.0-44) 10/10/21 Unknown ABG Base Excess -1.7 mmol/L (-2.0-3.0) 10/10/21 Unknown ABG Hemoglobin 6.0 gm/dl (12.0-16.0) L 10/10/21 Unknown ABG Carboxyhemoglobin 1.1 % (0.0-5.0) 10/10/21 Unknown ABG Methemoglobin 0.5 % (0.0-1.5) 10/10/21 Unknown Oxyhemoglobin 97.9 % (95.0-99.0) 10/10/21 Unknown FiO2 60 % 10/10/21 Unknown Sodium 139 mmol/L (137-145) 10/14/21 04:05 Potassium 4.7 mmol/L (3.6-5.0) D 10/14/21 04:05 Chloride 106.6 mmol/L (98-107) 10/14/21 04:05 Carbon Dioxide 23 mmol/L (22-30) 10/14/21 04:05 Anion Gap 14 mmol/L 10/14/21 04:05 BUN 33 mg/dL (7-17) H 10/14/21 04:05 Creatinine 1.0 mg/dL (0.6-1.2) 10/14/21 04:05 Estimated GFR > 60 ml/min 10/14/21 04:05 BUN/Creatinine Ratio 33 % 10/14/21 04:05 Glucose 310 mg/dL (65-100) H 10/14/21 04:05 POC Glucose 155 mg/dL (70-105) H 10/14/21 09:29 Lactic Acid 1.80 mmol/L (0.7-2.0) 10/10/21 04:10 Calcium 7.4 mg/dL (8.4-10.2) L 10/14/21 04:05 Phosphorus 3.80 mg/dL (2.5-4.5) 10/14/21 04:05 Magnesium 2.10 mg/dL (1.7-2.3) 10/14/21 04:05 Ferritin 751.9 ng/mL (10.0-200.0) H 10/09/21 05:31 Total Bilirubin 0.30 mg/dL (0.1-1.2) 10/09/21 05:31 AST 26 units/L (5-40) 10/09/21 05:31 ALT 11 units/L (7-56) 10/09/21 05:31 Alkaline Phosphatase 63 units/L (35-129) 10/09/21 05:31 Lactate Dehydrogenase 472 units/L (91-180) H 10/09/21 05:31 Total Creatine Kinase 45 units/L (30-135) 10/13/21 04:05 C-Reactive Protein 15.90 mg/dL (0.00-1.30) H 10/09/21 05:31 Total Protein 5.8 g/dL (6.3-8.2) L 10/09/21 05:31 Albumin 2.3 g/dL (3.9-5) L 10/09/21 05:31 Albumin/Globulin Ratio 0.7 % 10/09/21 05:31 Triglycerides 80 mg/dL (2-149) 10/14/21 04:05 Procalcitonin 12.98 ng/mL (<0.15) 10/09/21 05:31 Urine Color Yellow (Yellow) 09/24/21 14:49 Urine Turbidity Slightly-cloudy (Clear) 09/24/21 14:49 Urine pH 6.0 (5.0-7.0) 09/24/21 14:49 Ur Specific [place] 1.017 (1.003-1.030) 09/24/21 14:49 Urine Protein 30 mg/dl mg/dL (Negative) 09/24/21 14:49 Urine Glucose (UA) Neg mg/dL (Negative) 09/24/21 14:49 Urine Ketones Neg mg/dL (Negative) 09/24/21 14:49 Urine Blood Neg (Negative) 09/24/21 14:49 Urine Nitrite Neg (Negative) 09/24/21 14:49 Ur Reducing Substances Not Reportable 09/24/21 14:49 Urine Bilirubin Neg (Negative) 09/24/21 14:49 Urine Ictotest Not Reportable 09/24/21 14:49 Urine Urobilinogen < 2.0 mg/dL (<2.0) 09/24/21 14:49 Ur Leukocyte Esterase Neg (Negative) 09/24/21 14:49 Urine WBC (Auto) 4.0 /HPF (0.0-6.0) 09/24/21 14:49 Urine RBC (Auto) 2.0 /HPF (0.0-6.0) 09/24/21 14:49 U Epithel Cells (Auto) 18.0 /HPF (0-13.0) H 09/24/21 14:49 Urine Mucus Few /HPF 09/24/21 14:49 Urine HCG, Qual Negative (Negative) 09/24/21 14:49 Coronavirus (PCR) Negative (Negative) 10/09/21 10:15 Blood Type A POSITIVE 10/12/21 06:05 Antibody Screen Negative 10/12/21 06:05 Crossmatch See Detail 10/12/21 06:05 Microbiology: Microbiology 10/12/21 07:40 Tracheal Aspirate Sputum Culture - Final 10/08/21 23:30 Peripheral/Venous Blood Culture - Final NO GROWTH AFTER 5 DAYS 10/08/21 22:55 Peripheral/Venous Blood Culture - Final NO GROWTH AFTER 5 DAYS 10/11/21 Unknown Abdomen Surgical Culture - Preliminary Jean Marie Albicans 10/11/21 14:52 Abdomen Surgical Culture - Preliminary Jean Marie Albicans Doss/IV: Voiding Method Indwelling Catheter Active Medications - Current Medications Current Medications: Generic Name Dose Route Start Last Admin Trade Name Freq PRN Reason Stop Dose Admin Acetaminophen 650 mg 10/08/21 21:38 Acetaminophen 325 Mg Tab PO Q6H PRN Pain, Mild (1-3) Albuterol 2.5 mg 09/24/21 18:07 Albuterol 2.5 Mg/3 Ml Nebu IH Q4HRT PRN Shortness Of Breath Dextrose 0 ml 10/03/21 12:37 Dextrose 10% *Hypoglycemia IV PRN PRN Hypoglycemia Diphenhydramine HCl 25 mg 10/04/21 15:14 10/07/21 00:34 Diphenhydramine 50 Mg/Ml Vial IV 25 mg Q6H PRN Administration Itching Famotidine 20 mg 10/08/21 22:00 10/13/21 21:39 Famotidine 20 Mg/2 Ml Inj IV 20 mg BID JAZ Administration Fentanyl 50 mcg 10/08/21 22:10 Fentanyl 100 Mcg/2 Ml Inj IV Q10MIN PRN ANALGESIA Hydromorphone HCl 0.25 mg 10/08/21 21:38 Hydromorphone 1 Mg/1 Ml Inj IV Q4H PRN Pain, Moderate (4-6) Hydrophilic Ointment 1 applic 10/08/21 21:00 Lip Therapy Vaseline TP Q2HR PRN Dry Lips Metronidazole 500 mg in 100 mls @ 100 mls/hr 10/02/21 16:00 10/14/21 08:46 Flagyl 500 Mg/100 Ml IV 100 mls/hr Q8H JAZ Administration Protocol Linezolid 600 mg in 300 mls @ 300 mls/hr 10/08/21 15:00 10/14/21 03:59 Zyvox 600mg/300ml IV 300 mls/hr Q12H JAZ Administration Protocol Propofol 1,000 mg in 100 mls @ 2.694 mls/hr 10/08/21 21:00 10/14/21 07:30 Diprivan 10 Mg/Ml IV 35 mcg/kg/min TITR JAZ 18.858 mls/hr Administration Protocol 5 MCG/KG/MIN Cefepime HCl 2 gm in 100 mls @ 200 mls/hr 10/08/21 22:00 10/14/21 09:22 Cefepime/Ns 2 Gm/100 Ml IV 200 mls/hr Q12H [facility] Administration Protocol Fentanyl Citrate 2,000 mcg in 100 mls @ 4.49 mls/hr 10/08/21 23:00 10/14/21 08:47 Fentanyl Drip Premix IV 4 mcg/kg/hr TITR JAZ 17.96 mls/hr Administration Protocol 1 MCG/KG/HR Vasopressin 20 unit/ Sodium 101 mls @ 9.09 mls/hr 10/08/21 23:00 10/09/21 14:30 Chloride IV 0 units/min TITR JAZ 0 mls/hr Titration Protocol 0.03 UNITS/MIN NORepinephrine/NS 8 MG-250 ML 8 mg in 250 mls @ 3.75 mls/hr 10/08/21 23:45 Norepinephrine/Ns 8 Mg-250 Ml (Double Conc) IV TITRATE JAZ Protocol 2 MCG/MIN Fluconazole 200 mls @ 100 mls/hr 10/13/21 10:00 10/14/21 09:23 Diflucan IV 100 mls/hr Q24HR [facility] Administration Protocol Amino Acids/Electrolytes/Dextrose 1,999.92 mls @ 83.33 mls/hr 10/13/21 20:00 10/13/21 20:35 Tpn Adult IV 10/14/21 19:59 83.33 mls/hr DAILY@2000 [facility] Administration Protocol Insulin Glargine 5 units 10/13/21 10:00 10/14/21 09:30 Insulin Glargine 100 Units/Ml SUB-Q 5 units QDAY [facility] Administration Insulin Human Regular 0 units 10/10/21 00:00 10/14/21 00:24 Insulin Regular, Human 100 Units/1 Ml SUB-Q Not Given Q6HR [facility] Protocol Labetalol HCl 10 mg 10/01/21 08:31 10/12/21 16:58 Labetalol 20 Mg/4 Ml Inj IV 10 mg Q6H PRN Administration Hypertension Multi-Ingred Cream/Lotion/Oil/Oint 1 applic 10/08/21 21:00 Mineral Oil/Petrolatum, White Ophth Oint 3.5 Gm OU Q4HR PRN Dry Eye(s) Naloxone HCl 0.1 mg 10/03/21 14:00 Naloxone 0.4 Mg/1 Ml Inj IV Q2MIN PRN Res Rate </= 8 or 02 SAT < 92% Ondansetron HCl 4 mg 09/24/21 18:07 10/05/21 11:39 Ondansetron 4 Mg/2 Ml Inj IV 4 mg Q8H PRN Administration Nausea And Vomiting Phenol 1 spray 10/02/21 13:00 10/03/21 10:23 Phenol 1.4% 177 Ml Bottle MM 1 spray PRN PRN Administration Sore Throat Scopolamine 1 each 10/04/21 10:00 10/13/21 09:20 Scopolamine Transdermal Patch 72 Hr TD 1 each Q3D JAZ Administration Sodium Chloride 10 ml 09/24/21 22:00 10/14/21 09:24 Sodium Chloride 0.9% 10 Ml Flush Syringe IV 10 ml BID JAZ Administration Sodium Chloride 10 ml 09/24/21 18:07 09/25/21 08:34 Sodium Chloride 0.9% 10 Ml Flush Syringe IV 10 ml PRN PRN Administration LINE FLUSH Nutrition/Malnutrition Assess - Dietary Evaluation Nutrition/Malnutrition Findings: Nutrition Notes Start: 09/25/21 15:31 Freq: Status: Active Protocol: Document 10/13/21 10:49 BIN (Rec: 10/13/21 11:20 BIN [id number]) Nutrition Notes Initial or Follow up Reassessment Current Diagnosis Acute Kidney Injury,Sepsis, Respiratory Failure, Malnutrition Other Pertinent Diagnosis s/p appendectomy w/R- hemicolectomy, PNA Current Diet CPN @ 83.33 ml/hr Labs/Tests 10/13: BUN 34, Glu 200, Ca 7.5 , Mg 1.6. Pertinent Medications 10/13: Insulin, Propofol @ 13. 47 ml/hr (356 Kcal), others nutritionally unremarkable. Height 5 ft 7 in Weight 105 kg [place] Body Weight (kg) 61.36 BMI 36.2 Weight change and time frame New Body Weight reported (160. 4 Kg), will verify with RN; still using 105 Kg as reference. Weight Status Obese Subjective/Other Information Day 11 PN. Pt still on Mechanical Ventilation. Pt underwent two procedures : Cystoscopy, bilateral retropyelogram, bilateral external catheter placement; and, Exploratory Laparotomy w/ lysis of adhesions and takedown of anastomosis. Percent of energy/protein needs met: 74% Kcal; 81% AA. (meeting 100% energy needs with propofol included). Burn Absent Trauma Absent GI Symptoms Other Food Allergy No Skin Integrity/Comment Surgical wound Current % PO Other Minimum of two criteria No #1 Nutrition Diagnosis Altered GI function Diagnosis Progress(for reassessment Continues documentation) Is patient on ventilator? Yes Is Patient Ambulatory and/or Out of Bed No REE-([place]-confined to bed) 2152.968 Kcal/Kg value to use for calculation 16 Approximate Energy Requirements Using 1680 kcal/Kg Calculation Used for Recommendations Kcal/kg Additional Notes Protein: 2 g/Kg; 123 g/day IBW . Fluids: 1 mL/Kcal, or as per MD. Nutrition Intervention Nutrition Support: Continue CPN at 83.33ml/hr: MVI, 5% amino acids, 10% Dextrose, 5 mEq Mg, 150 mEq Na , 25 mmol Phos, 25%/75% chloride/acetate. Osmolality: 1340. Kcal 1,250 Protein (gm) 100 Carbohydrates (gm) 250 Fat (gm) 0 Fluid (mL) 2,000 Fiber (gm) 0 % RDI: 74% Kcal; 81% AA. Goal #1 Provide at least 75% of energy /protein needs through Parenteral Feeding during LOS. Goal #2 Maintain body weight within +/ -3% of admission body weight during LOS. Follow-Up By: 10/14/21 Additional Comments Continue monitoring PPN tolerance and BM. BMP, Phos, Mg labs ordered.
[2021-10-14] MEDS: FAMOTIDINE 20 MG/2 ML INJ IV SCH ×2 (10:46→21:39)
--- NOTE | 2021-10-14 11:04 | Cat Scan Report ---
PLEASE SEE OPERATIVE REPORT ON 10/11/21 @1449 MTDD
[2021-10-14 11:26] LABS: ABG Base Excess 0.4 mmol/L (-2.0-3.0); ABG HCO3 26.2 mmol/L (20.0-26.0); ABG Methemoglobin 0.5 % (0.0-1.5); ABG Oxygen Saturation 97.2 % (95.0-99.0); ABG PCO2 49.5 mm Hg; ABG PH 7.342 pH Units (7.350-7.450)
--- NOTE | 2021-10-14 12:09 | Progress Note ---
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 Open left hemicolectomy and partial omentectomy Peritonitis Leukocytosis Diverticulitis with absces Acute renal failure Acute blood loss anemia Gross Hematuria - to OR today - continue to hold on SBT's till abdominal closure - continue care as below otherwise; - daily SAT and SBT assessment as tolerated - continue to wean supplemental oxygen for target O2 sat's > 90% acutely - VAP bundle addressed - continue lung protective strategies - continue bronchodilators with pulmonary hygiene per RT - wean per pulmonary driven protocols otherwise - avoid nephrotoxins, renally dose all medications - continue accuchecks with glycemic control per SSI (While critically ill target blood glucose of 140-180 mg/dL; avoid hypoglycemia) - sedation prn for target RASS 0 to -1 - continue to avoid benzodiazepine's, reduce the possibility of delirium - AB's per ID rec's - prn analgesia per CPOT score - Maintenance of sleep-wake cycle, avoid delirium - continue enteral nutritional support at goal rate as tolerated - G.I. & VTE prophylaxis - PT/OT/ROM exercises - continue mobility protocols for pressure ulcer prophylaxis - Monitor hemodynamics closely - continue other care per attending / other consultants - discharge planning ongoing concurrently COVID SPECIFIC INTERVENTIONS - COVID-19 PCR negative .... Re-evaluate in am & prn CONDITION: CRITICAL PROGNOSIS: GUARDED CODE STATUS: FULL CODE The high probability of a clinically significant, sudden or life-threatening deterioration of the [respiratory, cardiovascular & neurologic] system(s) required my full and direct attention, intervention and personal management. The aggregate critical care time was [35] minutes without overlap. 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 s/p appendectomy; VRE infection; Open left hemicolectomy and partial omentectomy; Peritonitis; Diverticulitis with abscess;' BRYANNA; ABLA; Gross Hematuria Seen and examined at bedside; 24hour events reviewed; nursing and respiratory care staff consulted; no adverse overnight events reported to me; resting in bed; remains on MVS and tolerating well; weaning on hold till after OR trip and abdominal closure; no N/V/F/C Objective Vital Signs - 12hr 10/14/21 10/14/21 10/14/21 00:30 01:00 01:30 Temperature Pulse Rate 81 79 79 Pulse Rate [ From Monitor] Respiratory 13 16 13 Rate Blood Pressure 108/57 110/57 116/61 O2 Sat by Pulse 100 100 100 Oximetry 10/14/21 10/14/21 10/14/21 02:00 02:30 03:00 Temperature Pulse Rate 79 78 76 Pulse Rate [ From Monitor] Respiratory 13 13 14 Rate Blood Pressure 114/61 118/66 117/65 O2 Sat by Pulse 100 100 99 Oximetry 10/14/21 10/14/21 10/14/21 03:30 03:36 03:55 Temperature 98.6 F Pulse Rate 82 81 Pulse Rate [ From Monitor] Respiratory 12 Rate Blood Pressure 118/63 116/64 O2 Sat by Pulse 100 100 Oximetry 10/14/21 10/14/21 10/14/21 04:00 04:30 05:00 Temperature Pulse Rate 92 H 109 H 105 H Pulse Rate [ 81 From Monitor] Respiratory 14 19 12 Rate Blood Pressure 123/78 114/63 139/85 O2 Sat by Pulse 99 100 100 Oximetry 10/14/21 10/14/21 10/14/21 05:30 06:00 06:30 Temperature Pulse Rate 81 84 76 Pulse Rate [ From Monitor] Respiratory 13 15 13 Rate Blood Pressure 117/62 114/61 114/56 O2 Sat by Pulse 100 100 99 Oximetry 10/14/21 10/14/21 10/14/21 07:00 07:10 07:30 Temperature 98.9 F Pulse Rate 77 89 Pulse Rate [ From Monitor] Respiratory 12 16 Rate Blood Pressure 113/63 128/81 O2 Sat by Pulse 100 100 Oximetry 10/14/21 10/14/21 10/14/21 08:00 08:30 08:32 Temperature Pulse Rate 82 78 79 Pulse Rate [ 81 From Monitor] Respiratory 11 L 11 L Rate Blood Pressure 116/67 114/65 114/65 O2 Sat by Pulse 100 100 100 Oximetry 10/14/21 10/14/21 10/14/21 09:00 09:30 10:00 Temperature Pulse Rate 75 77 78 Pulse Rate [ From Monitor] Respiratory 13 12 13 Rate Blood Pressure 111/59 112/60 113/62 O2 Sat by Pulse 100 100 100 Oximetry 10/14/21 12:00 Temperature 98.6 F Pulse Rate Pulse Rate [ From Monitor] Respiratory Rate Blood Pressure O2 Sat by Pulse Oximetry Constitutional: no acute distress, other (young obese female with mildly increased respiratory effort at rest on MVS) Eyes: non-icteric ENT: oropharynx dry, other (orally intubated ETT 7.5cm @24 at the lip) Neck: supple, other (RIJ CVL) Effort: mildly labored Ascultation: Bilateral: diminished breath sounds, rhonchi Percussion: Bilateral: not dull Cardiovascular: regular rate and rhythm, other (S1,S2) Gastrointestinal: hypoactive bowel sounds, soft, tender (mild), other (YURIDIA drains, anterior abdominal dressings, Doss catheter) Integumentary: normal, other (post-op changes) Extremities: no cyanosis, pulses normal, no ischemia or petechiae, edema Neurologic: non-focal exam, pupils equal and round, CN II-XII normal, motor strength normal and Psychiatric: mood appropriate, affect normal CBC and BMP: 10/15/21 05:40 10/15/21 05:40 ABG, PT/INR, D-dimer: ABG ABG pH 7.342 pH Units (7.350-7.450) L 10/14/21 10:45 ABG pCO2 49.5 mm Hg 10/14/21 10:45 ABG pO2 96.0 mm Hg (80.0-90.0) H 10/14/21 10:45 ABG O2 Saturation 97.2 % (95.0-99.0) 10/14/21 10:45 PT/INR, D-dimer PT 19.0 Sec. (12.2-14.9) H 10/14/21 04:05 INR 1.41 (0.87-1.13) H 10/14/21 04:05 D-Dimer > 87942 ng/mlDDU (0-234) H 10/09/21 08:45 Abnormal lab findings: Abnormal Labs 09/24/21 09/24/21 09/24/21 14:49 14:58 14:58 WBC 32.4 H RBC Hgb Hct MCH RDW Plt Count 535 H [place] # (Auto) Seg Neutrophils % Seg Neuts % (Manual) 82.0 H Lymphocytes % (Manual) 2.0 L Monocytes % (Manual) Nucleated RBC % Seg Neutrophils # Seg Neutrophils # Man 26.6 H Lymphocytes # (Manual) 0.6 L Monocytes # (Manual) 1.6 H PT INR D-Dimer ABG pH ABG pO2 ABG HCO3 ABG O2 Saturation ABG Base Excess ABG Hemoglobin Oxyhemoglobin Sodium 134 L Potassium 3.5 L Chloride 97.6 L Carbon Dioxide BUN Creatinine Glucose 119 H POC Glucose Lactic Acid Calcium Phosphorus Magnesium Ferritin Lactate Dehydrogenase Total Creatine Kinase C-Reactive Protein Total Protein 6.1 L Albumin 3.3 L U Epithel Cells (Auto) 18.0 H Crossmatch 09/25/21 09/25/21 09/26/21 05:47 05:47 04:20 WBC 25.4 H 23.6 H RBC 3.54 L Hgb Hct MCH RDW Plt Count 466 H 486 H [place] # (Auto) Seg Neutrophils % Seg Neuts % (Manual) 93.0 H 86.0 H Lymphocytes % (Manual) 4.0 L 3.0 L Monocytes % (Manual) Nucleated RBC % Seg Neutrophils # Seg Neutrophils # Man 23.6 H 20.3 H Lymphocytes # (Manual) 1.0 L 0.7 L Monocytes # (Manual) 0.9 H PT INR D-Dimer ABG pH ABG pO2 ABG HCO3 ABG O2 Saturation ABG Base Excess ABG Hemoglobin Oxyhemoglobin Sodium 136 L Potassium 3.0 L Chloride Carbon Dioxide 21 L BUN Creatinine Glucose POC Glucose Lactic Acid Calcium 7.8 L Phosphorus Magnesium Ferritin Lactate Dehydrogenase Total Creatine Kinase C-Reactive Protein Total Protein Albumin U Epithel Cells (Auto) Crossmatch 09/26/21 09/27/21 09/27/21 04:20 08:28 08:28 WBC 20.6 H RBC 3.42 L Hgb 9.9 L Hct 29.5 L D MCH RDW Plt Count [place] # (Auto) Seg Neutrophils % Seg Neuts % (Manual) 94.1 H Lymphocytes % (Manual) 1.0 L Monocytes % (Manual) Nucleated RBC % Seg Neutrophils # Seg Neutrophils # Man 19.4 H Lymphocytes # (Manual) 0.2 L Monocytes # (Manual) PT INR D-Dimer ABG pH ABG pO2 ABG HCO3 ABG O2 Saturation ABG Base Excess ABG Hemoglobin Oxyhemoglobin Sodium Potassium 3.2 L Chloride Carbon Dioxide 20 L BUN Creatinine Glucose 137 H POC Glucose Lactic Acid Calcium 8.3 L 8.2 L Phosphorus Magnesium Ferritin Lactate Dehydrogenase Total Creatine Kinase C-Reactive Protein Total Protein Albumin U Epithel Cells (Auto) Crossmatch 09/28/21 09/28/21 09/29/21 04:55 15:35 07:02 WBC 15.1 H 16.5 H RBC 3.34 L 3.20 L Hgb 9.3 L 9.1 L Hct 28.7 L 27.3 L MCH RDW 15.3 H Plt Count 444 H 469 H [place] # (Auto) 0.9 H Seg Neutrophils % 89.3 H Seg Neuts % (Manual) 88.0 H 80.0 H Lymphocytes % (Manual) 9.0 L 8.0 L Monocytes % (Manual) Nucleated RBC % Seg Neutrophils # 14.0 H Seg Neutrophils # Man 13.3 H 13.2 H Lymphocytes # (Manual) Monocytes # (Manual) PT INR D-Dimer ABG pH ABG pO2 ABG HCO3 ABG O2 Saturation ABG Base Excess ABG Hemoglobin Oxyhemoglobin Sodium Potassium 3.3 L Chloride 109.4 H Carbon Dioxide 20 L BUN Creatinine 0.5 L Glucose POC Glucose Lactic Acid Calcium 7.9 L Phosphorus Magnesium Ferritin Lactate Dehydrogenase Total Creatine Kinase C-Reactive Protein Total Protein Albumin U Epithel Cells (Auto) Crossmatch 09/30/21 09/30/21 10/01/21 05:40 05:40 07:49 WBC 17.4 H 17.9 H RBC 3.37 L 3.32 L Hgb 9.2 L 9.3 L Hct 28.4 L 28.3 L MCH 27 L RDW 15.4 H 15.5 H Plt Count 530 H 604 H [place] # (Auto) Seg Neutrophils % Seg Neuts % (Manual) 91.0 H 72.0 H Lymphocytes % (Manual) 9.0 L 1.0 L Monocytes % (Manual) 8.0 H Nucleated RBC % 1.0 H Seg Neutrophils # Seg Neutrophils # Man 15.8 H 12.9 H Lymphocytes # (Manual) 0.2 L Monocytes # (Manual) 1.4 H PT INR D-Dimer ABG pH ABG pO2 ABG HCO3 ABG O2 Saturation ABG Base Excess ABG Hemoglobin Oxyhemoglobin Sodium Potassium 3.5 L Chloride Carbon Dioxide 21 L BUN Creatinine 0.5 L Glucose POC Glucose Lactic Acid Calcium 8.0 L Phosphorus Magnesium Ferritin Lactate Dehydrogenase Total Creatine Kinase C-Reactive Protein Total Protein Albumin U Epithel Cells (Auto) Crossmatch 10/01/21 10/01/21 10/02/21 07:49 10:45 05:41 WBC 23.2 H RBC 2.90 L Hgb 7.9 L Hct 24.8 L MCH 27 L RDW 15.3 H Plt Count 621 H [place] # (Auto) Seg Neutrophils % Seg Neuts % (Manual) 88.0 H Lymphocytes % (Manual) 2.0 L Monocytes % (Manual) Nucleated RBC % Seg Neutrophils # Seg Neutrophils # Man 20.4 H Lymphocytes # (Manual) 0.5 L Monocytes # (Manual) 1.4 H PT INR D-Dimer ABG pH ABG pO2 ABG HCO3 ABG O2 Saturation ABG Base Excess ABG Hemoglobin Oxyhemoglobin Sodium Potassium Chloride Carbon Dioxide 20 L BUN Creatinine 0.5 L Glucose POC Glucose Lactic Acid Calcium 7.6 L Phosphorus Magnesium Ferritin Lactate Dehydrogenase Total Creatine Kinase C-Reactive Protein Total Protein Albumin U Epithel Cells (Auto) Crossmatch See Detail 10/02/21 10/02/21 10/02/21 05:41 07:47 11:10 WBC RBC Hgb Hct MCH RDW Plt Count [place] # (Auto) Seg Neutrophils % Seg Neuts % (Manual) Lymphocytes % (Manual) Monocytes % (Manual) Nucleated RBC % Seg Neutrophils # Seg Neutrophils # Man Lymphocytes # (Manual) Monocytes # (Manual) PT INR D-Dimer ABG pH ABG pO2 ABG HCO3 ABG O2 Saturation ABG Base Excess ABG Hemoglobin Oxyhemoglobin Sodium Potassium Chloride Carbon Dioxide BUN Creatinine Glucose 130 H POC Glucose 145 H 120 H Lactic Acid Calcium 6.9 L Phosphorus Magnesium Ferritin Lactate Dehydrogenase Total Creatine Kinase C-Reactive Protein Total Protein Albumin U Epithel Cells (Auto) Crossmatch 10/02/21 10/03/21 10/03/21 16:14 04:55 04:55 WBC 26.1 H RBC 2.31 L Hgb 6.3 L Hct 19.8 L* MCH RDW 15.9 H Plt Count 598 H [place] # (Auto) Seg Neutrophils % Seg Neuts % (Manual) 82.0 H Lymphocytes % (Manual) 1.0 L Monocytes % (Manual) 10.0 H Nucleated RBC % Seg Neutrophils # Seg Neutrophils # Man 21.4 H Lymphocytes # (Manual) 0.3 L Monocytes # (Manual) 2.6 H PT INR D-Dimer ABG pH ABG pO2 ABG HCO3 ABG O2 Saturation ABG Base Excess ABG Hemoglobin Oxyhemoglobin Sodium Potassium Chloride Carbon Dioxide BUN 22 H Creatinine 1.7 H D Glucose 145 H POC Glucose 109 H Lactic Acid Calcium 6.4 L Phosphorus Magnesium 2.40 H Ferritin Lactate Dehydrogenase Total Creatine Kinase C-Reactive Protein Total Protein 4.2 L Albumin 1.6 L U Epithel Cells (Auto) Crossmatch 10/03/21 10/03/21 10/03/21 07:15 11:49 17:06 WBC RBC Hgb Hct MCH RDW Plt Count [place] # (Auto) Seg Neutrophils % Seg Neuts % (Manual) Lymphocytes % (Manual) Monocytes % (Manual) Nucleated RBC % Seg Neutrophils # Seg Neutrophils # Man Lymphocytes # (Manual) Monocytes # (Manual) PT INR D-Dimer ABG pH ABG pO2 ABG HCO3 ABG O2 Saturation ABG Base Excess ABG Hemoglobin Oxyhemoglobin Sodium Potassium Chloride Carbon Dioxide BUN Creatinine Glucose POC Glucose 162 H 171 H 174 H Lactic Acid Calcium Phosphorus Magnesium Ferritin Lactate Dehydrogenase Total Creatine Kinase C-Reactive Protein Total Protein Albumin U Epithel Cells (Auto) Crossmatch 10/03/21 10/04/21 10/04/21 23:31 04:44 04:44 WBC 26.4 H RBC 2.33 L Hgb 6.6 L Hct 19.4 L* MCH RDW 16.1 H Plt Count 602 H [place] # (Auto) Seg Neutrophils % Seg Neuts % (Manual) 80.0 H Lymphocytes % (Manual) 5.0 L Monocytes % (Manual) Nucleated RBC % Seg Neutrophils # Seg Neutrophils # Man 21.1 H Lymphocytes # (Manual) Monocytes # (Manual) 1.8 H PT INR D-Dimer ABG pH ABG pO2 ABG HCO3 ABG O2 Saturation ABG Base Excess ABG Hemoglobin Oxyhemoglobin Sodium 135 L Potassium 3.4 L Chloride Carbon Dioxide 21 L BUN 28 H Creatinine 2.0 H Glucose 171 H POC Glucose 179 H Lactic Acid Calcium 6.7 L Phosphorus 1.30 L D Magnesium 2.40 H Ferritin Lactate Dehydrogenase Total Creatine Kinase C-Reactive Protein Total Protein Albumin U Epithel Cells (Auto) Crossmatch 10/04/21 10/04/21 10/04/21 05:25 12:01 13:30 WBC RBC Hgb Hct MCH RDW Plt Count [place] # (Auto) Seg Neutrophils % Seg Neuts % (Manual) Lymphocytes % (Manual) Monocytes % (Manual) Nucleated RBC % Seg Neutrophils # Seg Neutrophils # Man Lymphocytes # (Manual) Monocytes # (Manual) PT INR D-Dimer ABG pH ABG pO2 ABG HCO3 ABG O2 Saturation ABG Base Excess ABG Hemoglobin Oxyhemoglobin Sodium Potassium Chloride Carbon Dioxide BUN Creatinine Glucose POC Glucose 174 H 172 H Lactic Acid Calcium Phosphorus Magnesium Ferritin Lactate Dehydrogenase Total Creatine Kinase C-Reactive Protein Total Protein Albumin U Epithel Cells (Auto) Crossmatch See Detail 10/04/21 10/04/21 10/04/21 16:47 20:28 22:23 WBC RBC Hgb 8.5 L Hct 25.1 L MCH RDW Plt Count [place] # (Auto) Seg Neutrophils % Seg Neuts % (Manual) Lymphocytes % (Manual) Monocytes % (Manual) Nucleated RBC % Seg Neutrophils # Seg Neutrophils # Man Lymphocytes # (Manual) Monocytes # (Manual) PT INR D-Dimer ABG pH ABG pO2 ABG HCO3 ABG O2 Saturation ABG Base Excess ABG Hemoglobin Oxyhemoglobin Sodium Potassium Chloride Carbon Dioxide BUN Creatinine Glucose POC Glucose 135 H 152 H Lactic Acid Calcium Phosphorus Magnesium Ferritin Lactate Dehydrogenase Total Creatine Kinase C-Reactive Protein Total Protein Albumin U Epithel Cells (Auto) Crossmatch 10/05/21 10/05/21 10/05/21 04:40 04:40 04:40 WBC 24.7 H RBC 3.02 L Hgb 8.4 L Hct 25.5 L MCH RDW 16.2 H Plt Count 644 H [place] # (Auto) Seg Neutrophils % Seg Neuts % (Manual) 91.0 H Lymphocytes % (Manual) 7.0 L Monocytes % (Manual) Nucleated RBC % Seg Neutrophils # Seg Neutrophils # Man 22.5 H Lymphocytes # (Manual) Monocytes # (Manual) PT 17.8 H INR 1.31 H D-Dimer ABG pH ABG pO2 ABG HCO3 ABG O2 Saturation ABG Base Excess ABG Hemoglobin Oxyhemoglobin Sodium 135 L Potassium Chloride Carbon Dioxide BUN 29 H Creatinine 2.1 H Glucose 156 H POC Glucose Lactic Acid Calcium 7.6 L Phosphorus 1.90 L D Magnesium Ferritin Lactate Dehydrogenase Total Creatine Kinase C-Reactive Protein Total Protein 5.2 L D Albumin 1.8 L U Epithel Cells (Auto) Crossmatch 10/05/21 10/05/21 10/05/21 05:08 18:17 23:37 WBC RBC Hgb Hct MCH RDW Plt Count [place] # (Auto) Seg Neutrophils % Seg Neuts % (Manual) Lymphocytes % (Manual) Monocytes % (Manual) Nucleated RBC % Seg Neutrophils # Seg Neutrophils # Man Lymphocytes # (Manual) Monocytes # (Manual) PT INR D-Dimer ABG pH ABG pO2 ABG HCO3 ABG O2 Saturation ABG Base Excess ABG Hemoglobin Oxyhemoglobin Sodium Potassium Chloride Carbon Dioxide BUN Creatinine Glucose POC Glucose 156 H 119 H 130 H Lactic Acid Calcium Phosphorus Magnesium Ferritin Lactate Dehydrogenase Total Creatine Kinase C-Reactive Protein Total Protein Albumin U Epithel Cells (Auto) Crossmatch 10/06/21 10/06/21 10/06/21 04:27 05:27 05:27 WBC 23.4 H RBC 2.84 L Hgb 7.8 L Hct 23.9 L MCH RDW 16.2 H Plt Count 712 H [place] # (Auto) Seg Neutrophils % Seg Neuts % (Manual) Lymphocytes % (Manual) Monocytes % (Manual) Nucleated RBC % Seg Neutrophils # Seg Neutrophils # Man Lymphocytes # (Manual) Monocytes # (Manual) PT INR D-Dimer ABG pH ABG pO2 ABG HCO3 ABG O2 Saturation ABG Base Excess ABG Hemoglobin Oxyhemoglobin Sodium 134 L Potassium Chloride Carbon Dioxide 20 L BUN 28 H Creatinine 1.9 H Glucose 132 H POC Glucose 132 H Lactic Acid Calcium 7.8 L Phosphorus Magnesium Ferritin Lactate Dehydrogenase Total Creatine Kinase 242 H C-Reactive Protein Total Protein Albumin U Epithel Cells (Auto) Crossmatch 10/06/21 10/06/21 10/06/21 16:40 20:50 23:39 WBC RBC Hgb Hct MCH RDW Plt Count [place] # (Auto) Seg Neutrophils % Seg Neuts % (Manual) Lymphocytes % (Manual) Monocytes % (Manual) Nucleated RBC % Seg Neutrophils # Seg Neutrophils # Man Lymphocytes # (Manual) Monocytes # (Manual) PT INR D-Dimer ABG pH ABG pO2 ABG HCO3 ABG O2 Saturation ABG Base Excess ABG Hemoglobin Oxyhemoglobin Sodium Potassium Chloride Carbon Dioxide BUN Creatinine Glucose POC Glucose 133 H 116 H 132 H Lactic Acid Calcium Phosphorus Magnesium Ferritin Lactate Dehydrogenase Total Creatine Kinase C-Reactive Protein Total Protein Albumin U Epithel Cells (Auto) Crossmatch 10/07/21 10/07/21 10/07/21 05:09 05:13 09:43 WBC 22.3 H RBC 2.81 L Hgb 7.8 L Hct 24.0 L MCH RDW 16.5 H Plt Count 733 H [place] # (Auto) Seg Neutrophils % Seg Neuts % (Manual) 85.0 H Lymphocytes % (Manual) 1.0 L Monocytes % (Manual) Nucleated RBC % Seg Neutrophils # Seg Neutrophils # Man 19.0 H Lymphocytes # (Manual) 0.2 L Monocytes # (Manual) 1.6 H PT INR D-Dimer ABG pH ABG pO2 ABG HCO3 ABG O2 Saturation ABG Base Excess ABG Hemoglobin Oxyhemoglobin Sodium 136 L Potassium Chloride Carbon Dioxide 20 L BUN 29 H Creatinine 1.9 H Glucose 140 H POC Glucose 139 H Lactic Acid Calcium 7.6 L Phosphorus Magnesium Ferritin Lactate Dehydrogenase Total Creatine Kinase C-Reactive Protein Total Protein Albumin U Epithel Cells (Auto) Crossmatch 10/07/21 10/07/21 10/08/21 11:38 17:44 00:20 WBC RBC Hgb Hct MCH RDW Plt Count [place] # (Auto) Seg Neutrophils % Seg Neuts % (Manual) Lymphocytes % (Manual) Monocytes % (Manual) Nucleated RBC % Seg Neutrophils # Seg Neutrophils # Man Lymphocytes # (Manual) Monocytes # (Manual) PT INR D-Dimer ABG pH ABG pO2 ABG HCO3 ABG O2 Saturation ABG Base Excess ABG Hemoglobin Oxyhemoglobin Sodium Potassium Chloride Carbon Dioxide BUN Creatinine Glucose POC Glucose 126 H 113 H 129 H Lactic Acid Calcium Phosphorus Magnesium Ferritin Lactate Dehydrogenase Total Creatine Kinase C-Reactive Protein Total Protein Albumin U Epithel Cells (Auto) Crossmatch 10/08/21 10/08/21 10/08/21 05:26 05:26 05:29 WBC 21.8 H RBC 2.84 L Hgb 7.8 L Hct 24.1 L MCH 27 L RDW 16.5 H Plt Count 789 H [place] # (Auto) Seg Neutrophils % Seg Neuts % (Manual) Lymphocytes % (Manual) Monocytes % (Manual) Nucleated RBC % Seg Neutrophils # Seg Neutrophils # Man Lymphocytes # (Manual) Monocytes # (Manual) PT INR D-Dimer ABG pH ABG pO2 ABG HCO3 ABG O2 Saturation ABG Base Excess ABG Hemoglobin Oxyhemoglobin Sodium 136 L Potassium Chloride Carbon Dioxide 20 L BUN 31 H Creatinine 1.7 H Glucose 134 H POC Glucose 123 H Lactic Acid Calcium 7.9 L Phosphorus 4.60 H D Magnesium Ferritin Lactate Dehydrogenase Total Creatine Kinase C-Reactive Protein Total Protein Albumin U Epithel Cells (Auto) Crossmatch 10/08/21 10/08/21 10/08/21 11:53 17:07 20:08 WBC RBC Hgb Hct MCH RDW Plt Count [place] # (Auto) Seg Neutrophils % Seg Neuts % (Manual) Lymphocytes % (Manual) Monocytes % (Manual) Nucleated RBC % Seg Neutrophils # Seg Neutrophils # Man Lymphocytes # (Manual) Monocytes # (Manual) PT INR D-Dimer ABG pH 7.308 L ABG pO2 40.2 L ABG HCO3 15.7 L ABG O2 Saturation 68 L ABG Base Excess -9.6 L ABG Hemoglobin 9.7 L Oxyhemoglobin 67.8 L Sodium Potassium Chloride Carbon Dioxide BUN Creatinine Glucose POC Glucose 128 H 139 H Lactic Acid Calcium Phosphorus Magnesium Ferritin Lactate Dehydrogenase Total Creatine Kinase C-Reactive Protein Total Protein Albumin U Epithel Cells (Auto) Crossmatch 10/08/21 10/08/21 10/08/21 21:30 22:55 22:55 WBC RBC Hgb Hct MCH RDW Plt Count [place] # (Auto) Seg Neutrophils % Seg Neuts % (Manual) Lymphocytes % (Manual) Monocytes % (Manual) Nucleated RBC % Seg Neutrophils # Seg Neutrophils # Man Lymphocytes # (Manual) Monocytes # (Manual) PT INR D-Dimer ABG pH ABG pO2 43.8 L ABG HCO3 19.5 L ABG O2 Saturation 70.7 L ABG Base Excess -5.3 L ABG Hemoglobin 8.6 L Oxyhemoglobin 69.4 L Sodium Potassium Chloride Carbon Dioxide BUN Creatinine Glucose POC Glucose Lactic Acid 2.50 H* Calcium Phosphorus Magnesium Ferritin Lactate Dehydrogenase Total Creatine Kinase C-Reactive Protein Total Protein Albumin U Epithel Cells (Auto) Crossmatch See Detail 10/09/21 10/09/21 10/09/21 03:12 05:31 05:31 WBC 20.3 H RBC 2.70 L Hgb 7.4 L Hct 23.1 L MCH 27 L RDW 16.6 H Plt Count 786 H [place] # (Auto) Seg Neutrophils % Seg Neuts % (Manual) 88.0 H Lymphocytes % (Manual) 3.0 L Monocytes % (Manual) Nucleated RBC % Seg Neutrophils # Seg Neutrophils # Man 17.9 H Lymphocytes # (Manual) 0.6 L Monocytes # (Manual) 1.2 H PT INR D-Dimer ABG pH ABG pO2 ABG HCO3 ABG O2 Saturation ABG Base Excess ABG Hemoglobin Oxyhemoglobin Sodium 136 L Potassium Chloride Carbon Dioxide 20 L BUN 32 H Creatinine 1.5 H Glucose 214 H POC Glucose 190 H Lactic Acid Calcium 7.5 L Phosphorus Magnesium Ferritin Lactate Dehydrogenase Total Creatine Kinase C-Reactive Protein Total Protein 5.8 L Albumin 2.3 L U Epithel Cells (Auto) Crossmatch 10/09/21 10/09/21 10/09/21 05:31 05:31 05:31 WBC RBC Hgb Hct MCH RDW Plt Count [place] # (Auto) Seg Neutrophils % Seg Neuts % (Manual) Lymphocytes % (Manual) Monocytes % (Manual) Nucleated RBC % Seg Neutrophils # Seg Neutrophils # Man Lymphocytes # (Manual) Monocytes # (Manual) PT INR D-Dimer ABG pH ABG pO2 ABG HCO3 ABG O2 Saturation ABG Base Excess ABG Hemoglobin Oxyhemoglobin Sodium Potassium Chloride Carbon Dioxide BUN Creatinine Glucose POC Glucose Lactic Acid 2.20 H* Calcium Phosphorus Magnesium Ferritin 751.9 H Lactate Dehydrogenase Total Creatine Kinase C-Reactive Protein 15.90 H Total Protein Albumin U Epithel Cells (Auto) Crossmatch 10/09/21 10/09/21 10/09/21 05:31 08:45 12:08 WBC RBC Hgb Hct MCH RDW Plt Count [place] # (Auto) Seg Neutrophils % Seg Neuts % (Manual) Lymphocytes % (Manual) Monocytes % (Manual) Nucleated RBC % Seg Neutrophils # Seg Neutrophils # Man Lymphocytes # (Manual) Monocytes # (Manual) PT INR D-Dimer > 49779 H ABG pH ABG pO2 54.3 L ABG HCO3 ABG O2 Saturation 86.6 L ABG Base Excess -2.6 L ABG Hemoglobin 7.2 L Oxyhemoglobin 85.3 L Sodium Potassium Chloride Carbon Dioxide BUN Creatinine Glucose POC Glucose Lactic Acid Calcium Phosphorus Magnesium Ferritin Lactate Dehydrogenase 472 H Total Creatine Kinase C-Reactive Protein Total Protein Albumin U Epithel Cells (Auto) Crossmatch 10/09/21 10/09/21 10/10/21 12:19 17:43 00:30 WBC RBC Hgb Hct MCH RDW Plt Count [place] # (Auto) Seg Neutrophils % Seg Neuts % (Manual) Lymphocytes % (Manual) Monocytes % (Manual) Nucleated RBC % Seg Neutrophils # Seg Neutrophils # Man Lymphocytes # (Manual) Monocytes # (Manual) PT INR D-Dimer ABG pH ABG pO2 ABG HCO3 ABG O2 Saturation ABG Base Excess ABG Hemoglobin Oxyhemoglobin Sodium Potassium Chloride Carbon Dioxide BUN Creatinine Glucose POC Glucose 151 H 136 H 132 H Lactic Acid Calcium Phosphorus Magnesium Ferritin Lactate Dehydrogenase Total Creatine Kinase C-Reactive Protein Total Protein Albumin U Epithel Cells (Auto) Crossmatch 10/10/21 10/10/21 10/10/21 04:10 04:10 05:41 WBC 20.8 H RBC 2.54 L Hgb 7.1 L Hct 21.8 L MCH RDW 16.6 H Plt Count 740 H [place] # (Auto) Seg Neutrophils % Seg Neuts % (Manual) Lymphocytes % (Manual) Monocytes % (Manual) Nucleated RBC % Seg Neutrophils # Seg Neutrophils # Man Lymphocytes # (Manual) Monocytes # (Manual) PT INR D-Dimer ABG pH ABG pO2 ABG HCO3 ABG O2 Saturation ABG Base Excess ABG Hemoglobin Oxyhemoglobin Sodium 130 L Potassium Chloride 97.9 L Carbon Dioxide 19 L BUN 37 H Creatinine 1.4 H Glucose 181 H POC Glucose 150 H Lactic Acid Calcium 7.8 L Phosphorus Magnesium Ferritin Lactate Dehydrogenase Total Creatine Kinase C-Reactive Protein Total Protein Albumin U Epithel Cells (Auto) Crossmatch 10/10/21 10/10/21 10/10/21 11:10 16:00 23:50 WBC RBC Hgb Hct MCH RDW Plt Count [place] # (Auto) Seg Neutrophils % Seg Neuts % (Manual) Lymphocytes % (Manual) Monocytes % (Manual) Nucleated RBC % Seg Neutrophils # Seg Neutrophils # Man Lymphocytes # (Manual) Monocytes # (Manual) PT INR D-Dimer ABG pH ABG pO2 ABG HCO3 ABG O2 Saturation ABG Base Excess ABG Hemoglobin Oxyhemoglobin Sodium Potassium Chloride Carbon Dioxide BUN Creatinine Glucose POC Glucose 136 H 151 H 129 H Lactic Acid Calcium Phosphorus Magnesium Ferritin Lactate Dehydrogenase Total Creatine Kinase C-Reactive Protein Total Protein Albumin U Epithel Cells (Auto) Crossmatch 10/10/21 10/11/21 10/11/21 Unknown 03:30 03:30 WBC 23.2 H RBC 2.39 L Hgb 6.7 L Hct 20.3 L MCH RDW 16.7 H Plt Count 701 H [place] # (Auto) Seg Neutrophils % Seg Neuts % (Manual) Lymphocytes % (Manual) Monocytes % (Manual) Nucleated RBC % Seg Neutrophils # Seg Neutrophils # Man Lymphocytes # (Manual) Monocytes # (Manual) PT INR D-Dimer ABG pH 7.505 H ABG pO2 246.1 H ABG HCO3 ABG O2 Saturation 99.4 H ABG Base Excess ABG Hemoglobin 6.0 L Oxyhemoglobin Sodium 135 L Potassium Chloride Carbon Dioxide 20 L BUN 38 H Creatinine 1.6 H Glucose 118 H POC Glucose Lactic Acid Calcium 7.9 L Phosphorus Magnesium Ferritin Lactate Dehydrogenase Total Creatine Kinase C-Reactive Protein Total Protein Albumin U Epithel Cells (Auto) Crossmatch 10/11/21 10/11/21 10/12/21 11:41 17:51 00:18 WBC RBC Hgb Hct MCH RDW Plt Count [place] # (Auto) Seg Neutrophils % Seg Neuts % (Manual) Lymphocytes % (Manual) Monocytes % (Manual) Nucleated RBC % Seg Neutrophils # Seg Neutrophils # Man Lymphocytes # (Manual) Monocytes # (Manual) PT INR D-Dimer ABG pH ABG pO2 ABG HCO3 ABG O2 Saturation ABG Base Excess ABG Hemoglobin Oxyhemoglobin Sodium Potassium Chloride Carbon Dioxide BUN Creatinine Glucose POC Glucose 128 H 138 H 174 H Lactic Acid Calcium Phosphorus Magnesium Ferritin Lactate Dehydrogenase Total Creatine Kinase C-Reactive Protein Total Protein Albumin U Epithel Cells (Auto) Crossmatch 10/12/21 10/12/21 10/12/21 05:39 06:02 06:02 WBC 19.1 H RBC 3.56 L Hgb 10.0 L D Hct MCH RDW 17.0 H Plt Count 712 H [place] # (Auto) Seg Neutrophils % Seg Neuts % (Manual) Lymphocytes % (Manual) Monocytes % (Manual) Nucleated RBC % Seg Neutrophils # Seg Neutrophils # Man Lymphocytes # (Manual) Monocytes # (Manual) PT INR D-Dimer ABG pH ABG pO2 ABG HCO3 ABG O2 Saturation ABG Base Excess ABG Hemoglobin Oxyhemoglobin Sodium Potassium Chloride Carbon Dioxide BUN 37 H Creatinine 1.5 H Glucose 172 H POC Glucose 158 H Lactic Acid Calcium 8.1 L Phosphorus Magnesium Ferritin Lactate Dehydrogenase Total Creatine Kinase C-Reactive Protein Total Protein Albumin U Epithel Cells (Auto) Crossmatch 10/12/21 10/12/21 10/12/21 06:02 06:05 17:43 WBC RBC Hgb Hct MCH RDW Plt Count [place] # (Auto) Seg Neutrophils % Seg Neuts % (Manual) Lymphocytes % (Manual) Monocytes % (Manual) Nucleated RBC % Seg Neutrophils # Seg Neutrophils # Man Lymphocytes # (Manual) Monocytes # (Manual) PT 17.1 H INR 1.24 H D-Dimer ABG pH ABG pO2 ABG HCO3 ABG O2 Saturation ABG Base Excess ABG Hemoglobin Oxyhemoglobin Sodium Potassium Chloride Carbon Dioxide BUN Creatinine Glucose POC Glucose 173 H Lactic Acid Calcium Phosphorus Magnesium Ferritin Lactate Dehydrogenase Total Creatine Kinase C-Reactive Protein Total Protein Albumin U Epithel Cells (Auto) Crossmatch See Detail 10/12/21 10/12/21 10/13/21 23:28 Unknown 04:05 WBC RBC Hgb 10.0 L Hct MCH RDW Plt Count [place] # (Auto) Seg Neutrophils % Seg Neuts % (Manual) Lymphocytes % (Manual) Monocytes % (Manual) Nucleated RBC % Seg Neutrophils # Seg Neutrophils # Man Lymphocytes # (Manual) Monocytes # (Manual) PT INR D-Dimer ABG pH ABG pO2 ABG HCO3 ABG O2 Saturation ABG Base Excess ABG Hemoglobin Oxyhemoglobin Sodium Potassium Chloride Carbon Dioxide BUN 34 H Creatinine Glucose 200 H POC Glucose 178 H Lactic Acid Calcium 7.5 L Phosphorus Magnesium 1.60 L Ferritin Lactate Dehydrogenase Total Creatine Kinase C-Reactive Protein Total Protein Albumin U Epithel Cells (Auto) Crossmatch 10/13/21 10/13/21 10/13/21 05:09 10:55 13:34 WBC 23.8 H RBC 3.14 L Hgb 9.2 L Hct 27.7 L MCH RDW 17.5 H Plt Count 572 H [place] # (Auto) Seg Neutrophils % Seg Neuts % (Manual) Lymphocytes % (Manual) Monocytes % (Manual) Nucleated RBC % Seg Neutrophils # Seg Neutrophils # Man Lymphocytes # (Manual) Monocytes # (Manual) PT INR D-Dimer ABG pH ABG pO2 ABG HCO3 ABG O2 Saturation ABG Base Excess ABG Hemoglobin Oxyhemoglobin Sodium Potassium Chloride Carbon Dioxide BUN Creatinine Glucose POC Glucose 210 H 168 H Lactic Acid Calcium Phosphorus Magnesium Ferritin Lactate Dehydrogenase Total Creatine Kinase C-Reactive Protein Total Protein Albumin U Epithel Cells (Auto) Crossmatch 10/13/21 10/13/21 10/14/21 15:35 23:10 04:05 WBC 19.4 H RBC 2.98 L Hgb 8.4 L Hct 26.3 L MCH RDW 17.1 H Plt Count 561 H [place] # (Auto) Seg Neutrophils % Seg Neuts % (Manual) Lymphocytes % (Manual) Monocytes % (Manual) Nucleated RBC % Seg Neutrophils # Seg Neutrophils # Man Lymphocytes # (Manual) Monocytes # (Manual) PT INR D-Dimer ABG pH ABG pO2 ABG HCO3 ABG O2 Saturation ABG Base Excess ABG Hemoglobin Oxyhemoglobin Sodium Potassium Chloride Carbon Dioxide BUN Creatinine Glucose POC Glucose 154 H 135 H Lactic Acid Calcium Phosphorus Magnesium Ferritin Lactate Dehydrogenase Total Creatine Kinase C-Reactive Protein Total Protein Albumin U Epithel Cells (Auto) Crossmatch 10/14/21 10/14/21 10/14/21 04:05 04:05 05:08 WBC RBC Hgb Hct MCH RDW Plt Count [place] # (Auto) Seg Neutrophils % Seg Neuts % (Manual) Lymphocytes % (Manual) Monocytes % (Manual) Nucleated RBC % Seg Neutrophils # Seg Neutrophils # Man Lymphocytes # (Manual) Monocytes # (Manual) PT 19.0 H INR 1.41 H D-Dimer ABG pH ABG pO2 ABG HCO3 ABG O2 Saturation ABG Base Excess ABG Hemoglobin Oxyhemoglobin Sodium Potassium Chloride Carbon Dioxide BUN 33 H Creatinine Glucose 310 H POC Glucose 178 H Lactic Acid Calcium 7.4 L Phosphorus Magnesium Ferritin Lactate Dehydrogenase Total Creatine Kinase C-Reactive Protein Total Protein Albumin U Epithel Cells (Auto) Crossmatch 10/14/21 10/14/21 10/14/21 09:29 10:45 11:40 WBC RBC Hgb Hct MCH RDW Plt Count [place] # (Auto) Seg Neutrophils % Seg Neuts % (Manual) Lymphocytes % (Manual) Monocytes % (Manual) Nucleated RBC % Seg Neutrophils # Seg Neutrophils # Man Lymphocytes # (Manual) Monocytes # (Manual) PT INR D-Dimer ABG pH 7.342 L ABG pO2 96.0 H ABG HCO3 26.2 H ABG O2 Saturation ABG Base Excess ABG Hemoglobin 6.1 L Oxyhemoglobin 94.9 L Sodium Potassium Chloride Carbon Dioxide BUN Creatinine Glucose POC Glucose 155 H 137 H Lactic Acid Calcium Phosphorus Magnesium Ferritin Lactate Dehydrogenase Total Creatine Kinase C-Reactive Protein Total Protein Albumin U Epithel Cells (Auto) Crossmatch Chest x-ray: image reviewed (no new infiltrate) Allied health notes reviewed: nursing
--- NOTE | 2021-10-14 12:32 | Progress Note ---
Assessment and Plan Cultures: Blood culture no growth so far Wound culture VRE A/P: 31-year-old female past medical history obesity, nephrolithiasis now with: #Acute sepsis: Present with leukocytosis and tachycardia. Secondary to intra- abdominal infection #Acute hypoxic resp failure: fluid overload more likely, but possible pneumonia. #Pericolonic abscesses with appendiceal rupture and fistulization: Status post washout of abscesses, cultures now with VRE. #BRYANNA: Renally dose medications #Obesity Recs: -Changed to linezolid due to poor response/possible pneumonia. -Continue metronidazole. -Continuefluconazole 400mg qday -Stop cefepime today, no evidence of GNR on cultures thus far. Thank you for the consult, we will continue to follow. Josefina Perry MD [facility] ([facility] O: [phone] F: [phone] Subjective Date of service: 10/14/21 Principal diagnosis: Septic shock; AHRF; PNA; BRYANNA; s/p appendectomy; VRE infection; Peritonitis Interval history: Afebrile, white count slightly improved today Imaging personally reviewed: CXR: possible fluid overload. Objective - Exam Narrative Exam: Physical Exam: Constitutional: Alert, cooperative. No acute distress Head, Ears, Nose: Normocephalic, atraumatic. External ears, nose normal Eyes: Conjunctivae/corneas clear. No icterus. No ptosis. Neck: Supple, no meningeal signs Oral: dentition fair, no thrush Cardiovascular: S1, S2 normal. Respiratory: Good air entry, clear to auscultation bilaterally GI: Appropriately tender postoperatively, YURIDIA drain in place Musculoskeletal: No pedal edema, no cyanosis. Skin: No rash or abscess Hem/Lymphatic: No palpable cervical or supraclavicular nodes. No lymphangitis Psych: Mood ok. Affect normal Neurological: Awake, alert, oriented. No gross abnormality - Constitutional Vitals: Vital Signs Temp Pulse Resp BP Pulse Ox 98.6 F 94 H 13 152/102 100 10/14/21 12:00 10/14/21 12:25 10/14/21 10:00 10/14/21 12:25 10/14/21 12:25 Temperature -Last 24 Hours Temperature 98.6 F Temperature 98.9 F Temperature 98.6 F Temperature 98.2 F Temperature 98.0 F Temperature 98.3 F Temperature 99.5 F - Labs CBC & Chem 7: 10/14/21 04:05 10/14/21 04:05 Labs: Abnormal lab results 10/12/21 10/13/21 10/13/21 Range/Units 06:05 13:34 15:35 WBC 23.8 H (4.5-11.0) K/mm3 RBC 3.14 L (3.65-5.03) M/mm3 Hgb 9.2 L (10.1-14.3) gm/dl Hct 27.7 L (30.3-42.9) % RDW 17.5 H (13.2-15.2) % Plt Count 572 H (140-440) K/mm3 PT (12.2-14.9) Sec. INR (0.87-1.13) ABG pH (7.350-7.450) pH Units ABG pO2 (80.0-90.0) mm Hg ABG HCO3 (20.0-26.0) mmol/L ABG Hemoglobin (12.0-16.0) gm/dl Oxyhemoglobin (95.0-99.0) % BUN (7-17) mg/dL Glucose (65-100) mg/dL POC Glucose 154 H (70-105) mg/dL Calcium (8.4-10.2) mg/dL Crossmatch See Detail 10/13/21 10/14/21 10/14/21 Range/Units 23:10 04:05 04:05 WBC 19.4 H (4.5-11.0) K/mm3 RBC 2.98 L (3.65-5.03) M/mm3 Hgb 8.4 L (10.1-14.3) gm/dl Hct 26.3 L (30.3-42.9) % RDW 17.1 H (13.2-15.2) % Plt Count 561 H (140-440) K/mm3 PT (12.2-14.9) Sec. INR (0.87-1.13) ABG pH (7.350-7.450) pH Units ABG pO2 (80.0-90.0) mm Hg ABG HCO3 (20.0-26.0) mmol/L ABG Hemoglobin (12.0-16.0) gm/dl Oxyhemoglobin (95.0-99.0) % BUN 33 H (7-17) mg/dL Glucose 310 H (65-100) mg/dL POC Glucose 135 H (70-105) mg/dL Calcium 7.4 L (8.4-10.2) mg/dL Crossmatch 10/14/21 10/14/21 10/14/21 Range/Units 04:05 05:08 09:29 WBC (4.5-11.0) K/mm3 RBC (3.65-5.03) M/mm3 Hgb (10.1-14.3) gm/dl Hct (30.3-42.9) % RDW (13.2-15.2) % Plt Count (140-440) K/mm3 PT 19.0 H (12.2-14.9) Sec. INR 1.41 H (0.87-1.13) ABG pH (7.350-7.450) pH Units ABG pO2 (80.0-90.0) mm Hg ABG HCO3 (20.0-26.0) mmol/L ABG Hemoglobin (12.0-16.0) gm/dl Oxyhemoglobin (95.0-99.0) % BUN (7-17) mg/dL Glucose (65-100) mg/dL POC Glucose 178 H 155 H (70-105) mg/dL Calcium (8.4-10.2) mg/dL Crossmatch 10/14/21 10/14/21 Range/Units 10:45 11:40 WBC (4.5-11.0) K/mm3 RBC (3.65-5.03) M/mm3 Hgb (10.1-14.3) gm/dl Hct (30.3-42.9) % RDW (13.2-15.2) % Plt Count (140-440) K/mm3 PT (12.2-14.9) Sec. INR (0.87-1.13) ABG pH 7.342 L (7.350-7.450) pH Units ABG pO2 96.0 H (80.0-90.0) mm Hg ABG HCO3 26.2 H (20.0-26.0) mmol/L ABG Hemoglobin 6.1 L (12.0-16.0) gm/dl Oxyhemoglobin 94.9 L (95.0-99.0) % BUN (7-17) mg/dL Glucose (65-100) mg/dL POC Glucose 137 H (70-105) mg/dL Calcium (8.4-10.2) mg/dL Crossmatch
--- NOTE | 2021-10-14 15:41 | Anesthesia Day of Surgery ---
Anesthesia Day of Surgery - Day of Surgery Patient Examined: Yes Patient H&P Reviewed: Yes Patient is NPO: Yes
[2021-10-14] MEDS ORDERED: SODIUM CHLORIDE 0.9% IRR 1,500 ML BOTTLE IR ONE (18:37)
[2021-10-14] MEDS ORDERED: LACTATED RINGERS 1,000 ML ONE ×2 (18:40→20:35)
[2021-10-14] MEDS ORDERED: ONDANSETRON 4 MG/2 ML INJ ONE (18:40)
[2021-10-14] MEDS ORDERED: ROCURONIUM 50 MG/5 ML INJ IV ONE (18:40)
[2021-10-14] MEDS ORDERED: dexAMETHasone 20 MG/5 ML VIAL ONE (18:40)
[2021-10-14] MEDS ORDERED: HYDROmorphone 1 MG/1 ML INJ ONE (18:42)
[2021-10-14] MEDS ORDERED: KETAMINE/STERILE WATER 50 MG/ML SYRINGE ONE (18:59)
[2021-10-14] MEDS ORDERED: TOTAL PARENTERAL NUTRITION 1,999.92 ML IV SCH (20:00)
--- NOTE | 2021-10-14 21:24 | Post Anesthesia Evaluation ---
- Post Anesthesia Evaluation Patient Participated: No (sedated) Airway Patent: Yes Stable Respiratory Function: Yes Nausea/Vomiting: No (unable to assess. Antiemetic given intraop.) Temp > 96.8F: Yes Pain Manageable: Yes (unable to assess. Analgesic given and fentanyl gtt ongoing.) Adequeate Hydration: Yes Anesthesia Complications: No Patient on Ventilator: Yes (returned to preop vent settings per RT) Other Comments: Transported to ICU w/ monitors and O2 via AMBU with sedation infusing, VSS throughout. Handoff given to CUSTOMER PROFESSIONAL at bedside. Left in stable condition.
--- NOTE | 2021-10-14 21:35 | Operative Report ---
Operative Report Operative Report: date: 10/14/2021 surgeon: Gosia Huddleston MD co-surgeon: Edith Elmore DO procedure: 1. exploratory laparotomy, 2.. colostomy creation pre-op dx: open abdomen post-op dx: same as pre-op anesthesia: GETA EBL: 50ml Complication: none immediate specimen: end of colostomy and aleisha-colic fat indication: 31-year-old female presents to the operating room today for closure of her abdomen colostomy after 48 hours prior having exploratory laparotomy and colorectal anastomosis takedown for dehiscence of anastomosis. Details of procedure: Patient brought to the OR suite laid in supine position. Bilateral lower extremity SCDs were in place and turned on. Patient's arms were tucked at her side. Patient's abdomen was prepped and draped in sterile fashion. After timeout was performed patient is ABThera back was removed and discarded. Patient's abdominal contents were examined, looking for abscess pockets and enterotomies. The loops of bowel were , there were no enterotomies appreciated needing repair. Her abdominal cavity was irrigated with warm saline. A drain was placed exiting out the right lower quadrant and ending in the pelvis. A piece of Seprafilm was placed over the rectal stump as well as a 2-0 Prolene stitch to help with later identifying the stump when surgery is performed to reverse her colostomy. The end colostomy was noted to be viable but edematous. It was brought up through a left upper quadrant abdominal wall defect that was made after coring out a 4 cm diameter jackson of skin down through the subcutaneous tissue to the fascia. The fascia and muscle were split. To close the abdomen we had to undermine the fascia more so on the right than the left to help bring her abdominal wall to midline and decrease tension. Her fascia was then closed with a 0 double-stranded running PDS including interrupted 0 Vicryl sutures to act as internal retention sutures. The colostomy was then matured and secured to the skin using 2-0 Vicryl. A vertical skin incision had been previously closed prior to maturing the ostomy with skin julia. A sterile dressing was placed over the vertical midline incision and an ostomy appliance was placed over the ostomy bag. The colostomy mucosa appeared to be pink and viable, and with digital inspection of the stoma it did not feel too tight. The drain was secured with a 2-0 nylon. The patient was stable throughout the entire case and return to intensive care unit on the vent. All counts were correct.
[2021-10-15] MEDS: INSULIN REGULAR, HUMAN 100 UNITS/1 ML SUB-Q SCH ×4 (00:01→19:36)
[2021-10-15] MEDS: metroNIDAZOLE/NS 500 MG/100 ML 500 MG/100 ML BAG IV SCH ×3 (00:03→16:20)
--- NOTE | 2021-10-15 01:22 | XRay Report ---
CHEST 1 VIEW INDICATION / CLINICAL INFORMATION: follow up respiratory failure. COMPARISON: Chest x-ray 10/14/2021 FINDINGS: SUPPORT DEVICES: Stable, satisfactory device positioning. HEART / MEDIASTINUM: Stable borderline to mild cardiomegaly. LUNGS / PLEURA: Low lung volumes with no focal consolidation. No pneumothorax. ADDITIONAL FINDINGS: No significant additional findings. IMPRESSION: 1. No adverse interval change with exception of low lung volumes. Signer Name: Lukas Elizabeth II, MD Signed: 10/15/2021 1:17 AM Workstation Name: [id number]
[2021-10-15 05:58] LABS: Hematocrit 25.8 % (30.3-42.9); Hemoglobin 8.7 gm/dl (10.1-14.3); Mean Corpuscular HGB Conc 34 % (30-34); Mean Corpuscular Volume 88 fl (79-97); Platelet Count 620 K/mm3 (140-440); Red Blood Count 2.94 M/mm3 (3.65-5.03); Red Cell Distribution Width 17.2 % (13.2-15.2)
[2021-10-15 06:25] LABS: BUN/Creatinine Ratio 30; Blood Urea Nitrogen 30 mg/dL (7-17); Calcium 7.4 mg/dL (8.4-10.2); Hemolysis Index 11
--- NOTE | 2021-10-15 08:50 | Progress Note ---
Assessment and Plan - Patient Problems (1) Acute respiratory failure with hypoxia Current Visit: Yes Status: Acute Plan to address problem: Patient intubated at this time. Ventilator management per ICU team. CT chest reviewed and concerning for worsening bilateral opacities secondary to pneumonia versus fluid overload and pulmonary edema. Responded well with lasix therapy and now down to Fio2 30 %. Agree with holding further lasix at this time as she remains non-oliguric with increased urine output. (2) Acute renal failure Current Visit: Yes Status: Acute Plan to address problem: Overall renal function has stabilized over the last couple of days. Will monitor closely. Avoid all nephrotoxins and maintain mean arterial pressures above 65 mmHg. She did undergo cystoscopy with bilateral retropyelogram along with bilateral external ureteral stent placement with adequate urine output noted in [place] postoperatively. We will continue to follow closely. (3) Appendicitis with perforation Current Visit: Yes Status: Acute Plan to address problem: Status post left hemicolectomy with appendectomy Complicated by CT evidence of extraluminal gas in a contained collection,s/p CT guided drainage. Now with concerns of dehiscence of surgical suture lines in colon,s/p ex-lap and diverting ileostomy. (4) Hypoalbuminemia due to protein-calorie malnutrition Current Visit: Yes Status: Acute Plan to address problem: Continuing on TPN at this time. (5) Hypokalemia Current Visit: Yes Status: Acute Subjective Date of service: 10/15/21 Principal diagnosis: Septic shock; AHRF; PNA; BRYANNA; s/p appendectomy; VRE infection; Peritonitis Interval history: Patient underwent exploratory laparotomy with colostomy creation yesterday. Renal function remained stable. Remains nonoliguric at this time. Objective - Vital Signs Vital signs: Vital Signs - 12hr 10/14/21 10/14/21 10/14/21 21:00 21:10 21:20 Temperature 98.4 F Pulse Rate 87 91 H Pulse Rate [ From Monitor] Respiratory Rate Blood Pressure 107/70 107/70 O2 Sat by Pulse 98 96 Oximetry 10/14/21 10/14/21 10/14/21 21:30 21:31 22:00 Temperature Pulse Rate 102 H 104 H Pulse Rate [ 102 H From Monitor] Respiratory 13 12 13 Rate Blood Pressure 154/91 165/99 O2 Sat by Pulse 99 98 99 Oximetry 10/14/21 10/14/21 10/14/21 22:07 22:30 22:32 Temperature Pulse Rate 104 H 98 H 95 H Pulse Rate [ From Monitor] Respiratory 17 Rate Blood Pressure 196/97 196/97 O2 Sat by Pulse 98 Oximetry 10/14/21 10/14/21 10/14/21 23:00 23:08 23:30 Temperature Pulse Rate 91 H 91 H 90 Pulse Rate [ From Monitor] Respiratory 10 L 13 12 Rate Blood Pressure 147/90 147/84 O2 Sat by Pulse 100 100 100 Oximetry 10/14/21 10/14/21 10/15/21 23:37 23:48 00:00 Temperature 99.2 F 99.7 F H Pulse Rate 92 H 90 Pulse Rate [ 89 From Monitor] Respiratory 12 11 L Rate Blood Pressure 147/84 141/81 O2 Sat by Pulse 100 100 Oximetry 10/15/21 10/15/21 10/15/21 00:21 00:30 01:00 Temperature Pulse Rate 90 90 91 H Pulse Rate [ From Monitor] Respiratory 10 L 15 Rate Blood Pressure 141/81 132/79 152/90 O2 Sat by Pulse 100 100 100 Oximetry 10/15/21 10/15/21 10/15/21 01:30 02:00 02:30 Temperature Pulse Rate 100 H 94 H 94 H Pulse Rate [ From Monitor] Respiratory 13 15 17 Rate Blood Pressure 162/101 150/91 152/89 O2 Sat by Pulse 100 100 100 Oximetry 10/15/21 10/15/21 10/15/21 03:08 03:30 04:00 Temperature Pulse Rate 93 H 94 H 96 H Pulse Rate [ 96 H From Monitor] Respiratory 13 12 14 Rate Blood Pressure 141/81 128/82 136/85 O2 Sat by Pulse 100 100 100 Oximetry 10/15/21 10/15/21 10/15/21 04:30 04:53 05:00 Temperature Pulse Rate 105 H 101 H 99 H Pulse Rate [ From Monitor] Respiratory 14 11 L Rate Blood Pressure 154/91 154/91 140/82 O2 Sat by Pulse 100 100 100 Oximetry 10/15/21 10/15/21 10/15/21 05:30 06:00 08:00 Temperature 98.7 F Pulse Rate 99 H 94 H Pulse Rate [ From Monitor] Respiratory 9 L 11 L Rate Blood Pressure 124/71 125/70 O2 Sat by Pulse 100 100 Oximetry - General Appearance General appearance: intubated EENT: ATNC Neck: no JVD Respiratory: Present: Clear to Ascultation Cardiology: regular Gastrointestinal: normal Integumentary: warm and dry Musculoskeletal: deferred - Lab 10/15/21 05:40 10/15/21 05:40 Most recent lab results ABG pH 7.342 pH Units (7.350-7.450) L 10/14/21 10:45 ABG pCO2 49.5 mm Hg 10/14/21 10:45 ABG pO2 96.0 mm Hg (80.0-90.0) H 10/14/21 10:45 ABG HCO3 26.2 mmol/L (20.0-26.0) H 10/14/21 10:45 ABG O2 Saturation 97.2 % (95.0-99.0) 10/14/21 10:45 Calcium 7.4 mg/dL (8.4-10.2) L 10/15/21 05:40 Phosphorus 3.50 mg/dL (2.5-4.5) 10/15/21 05:40 Magnesium 1.90 mg/dL (1.7-2.3) 10/15/21 05:40 - Allied health notes Allied health notes reviewed: nursing Medications & Allergies - Medications Allergies/Adverse Reactions: Allergies No Known Allergies Allergy (Verified 09/24/21 12:21) Home Medications: Home Medications Medication Instructions Recorded Confirmed Last Taken Type No Known Home Medications [No 09/27/21 09/27/21 Unknown History Reported Home Medications] Active Medications: Generic Name Dose Route Start Last Admin Trade Name Freq PRN Reason Stop Dose Admin Acetaminophen 650 mg 10/08/21 21:38 Acetaminophen 325 Mg Tab PO Q6H PRN Pain, Mild (1-3) Albuterol 2.5 mg 09/24/21 18:07 Albuterol 2.5 Mg/3 Ml Nebu IH Q4HRT PRN Shortness Of Breath Dextrose 0 ml 10/03/21 12:37 Dextrose 10% *Hypoglycemia IV PRN PRN Hypoglycemia Diphenhydramine HCl 25 mg 10/04/21 15:14 10/07/21 00:34 Diphenhydramine 50 Mg/Ml Vial IV 25 mg Q6H PRN Administration Itching Famotidine 20 mg 10/08/21 22:00 10/14/21 21:39 Famotidine 20 Mg/2 Ml Inj IV 20 mg BID JAZ Administration Fentanyl 50 mcg 10/08/21 22:10 Fentanyl 100 Mcg/2 Ml Inj IV Q10MIN PRN ANALGESIA Hydromorphone HCl 0.25 mg 10/08/21 21:38 Hydromorphone 1 Mg/1 Ml Inj IV Q4H PRN Pain, Moderate (4-6) Hydrophilic Ointment 1 applic 10/08/21 21:00 Lip Therapy Vaseline TP Q2HR PRN Dry Lips Metronidazole 500 mg in 100 mls @ 100 mls/hr 10/02/21 16:00 10/15/21 08:30 Flagyl 500 Mg/100 Ml IV 100 mls/hr Q8H JAZ Administration Protocol Propofol 1,000 mg in 100 mls @ 2.694 mls/hr 10/08/21 21:00 10/15/21 08:29 Diprivan 10 Mg/Ml IV 25 mcg/kg/min TITR JAZ 13.47 mls/hr Administration Protocol 5 MCG/KG/MIN Fentanyl Citrate 2,000 mcg in 100 mls @ 4.49 mls/hr 10/08/21 23:00 10/15/21 05:50 Fentanyl Drip Premix IV Infused TITR JAZ Titration Protocol 1 MCG/KG/HR Vasopressin 20 unit/ Sodium 101 mls @ 9.09 mls/hr 10/08/21 23:00 10/09/21 14:30 Chloride IV 0 units/min TITR JAZ 0 mls/hr Titration Protocol 0.03 UNITS/MIN NORepinephrine/NS 8 MG-250 ML 8 mg in 250 mls @ 3.75 mls/hr 10/08/21 23:45 Norepinephrine/Ns 8 Mg-250 Ml (Double Conc) IV TITRATE JAZ Protocol 2 MCG/MIN Fluconazole 200 mls @ 100 mls/hr 10/13/21 10:00 10/14/21 09:23 Diflucan IV 100 mls/hr Q24HR [facility] Administration Protocol Amino Acids/Electrolytes/Dextrose 1,999.92 mls @ 83.33 mls/hr 10/14/21 20:00 10/14/21 21:38 Tpn Adult IV 10/15/21 19:59 83.33 mls/hr DAILY@2000 [facility] Administration Protocol Insulin Glargine 5 units 10/13/21 10:00 10/14/21 09:30 Insulin Glargine 100 Units/Ml SUB-Q 5 units QDAY JAZ Administration Insulin Human Regular 0 units 10/10/21 00:00 10/15/21 05:46 Insulin Regular, Human 100 Units/1 Ml SUB-Q 3 units Q6HR JAZ Administration Protocol Labetalol HCl 10 mg 10/01/21 08:31 10/14/21 22:32 Labetalol 20 Mg/4 Ml Inj IV 10 mg Q6H PRN Administration Hypertension Multi-Ingred Cream/Lotion/Oil/Oint 1 applic 10/08/21 21:00 Mineral Oil/Petrolatum, White Ophth Oint 3.5 Gm OU Q4HR PRN Dry Eye(s) Naloxone HCl 0.1 mg 10/03/21 14:00 Naloxone 0.4 Mg/1 Ml Inj IV Q2MIN PRN Res Rate </= 8 or 02 SAT < 92% Ondansetron HCl 4 mg 09/24/21 18:07 10/05/21 11:39 Ondansetron 4 Mg/2 Ml Inj IV 4 mg Q8H PRN Administration Nausea And Vomiting Phenol 1 spray 10/02/21 13:00 10/03/21 10:23 Phenol 1.4% 177 Ml Bottle MM 1 spray PRN PRN Administration Sore Throat Scopolamine 1 each 10/04/21 10:00 10/13/21 09:20 Scopolamine Transdermal Patch 72 Hr TD 1 each Q3D JAZ Administration Sodium Chloride 10 ml 09/24/21 22:00 10/14/21 21:39 Sodium Chloride 0.9% 10 Ml Flush Syringe IV 10 ml BID JAZ Administration Sodium Chloride 10 ml 09/24/21 18:07 09/25/21 08:34 Sodium Chloride 0.9% 10 Ml Flush Syringe IV 10 ml PRN PRN Administration LINE FLUSH
--- NOTE | 2021-10-15 09:02 | Post Anesthesia Evaluation ---
- Post Anesthesia Evaluation Patient Participated: No Airway Patent: Yes Stable Respiratory Function: Yes Nausea/Vomiting: No Temp > 96.8F: No Pain Manageable: Yes (on fentanyl gtt) Adequeate Hydration: Yes Anesthesia Complications: No Block Receding Appropriately: Not Applicable Patient on Ventilator: Yes Other Comments: VSS. OETT. HR 110, BP 140/81, o2 100%, R 14
[2021-10-15] MEDS: FLUCONAZOLE 400 MG 200 ML IV SCH (09:32)
[2021-10-15] MEDS: INSULIN GLARGINE 100 UNITS/ML SUB-Q SCH (09:32)
[2021-10-15] MEDS: FAMOTIDINE 20 MG/2 ML INJ IV SCH ×2 (09:32→22:04)
[2021-10-15] MEDS: fentaNYL 100 MCG/2 ML INJ IV PRN (09:34)
--- NOTE | 2021-10-15 10:21 | Progress Note ---
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 Open left hemicolectomy and partial omentectomy Peritonitis Leukocytosis Diverticulitis with absces Acute renal failure Acute blood loss anemia Gross Hematuria - will keep sedated RASS -2 to -3 over weekend re: abdominal wound dehiscence issues - keep on fentanyl drip also for good analgesia - wound care per RN / WCN under surgeons direction - continue care as below otherwise; - daily SAT and SBT assessment as tolerated - continue to wean supplemental oxygen for target O2 sat's > 90% acutely - VAP bundle addressed - continue lung protective strategies - continue bronchodilators with pulmonary hygiene per RT - wean per pulmonary driven protocols otherwise - avoid nephrotoxins, renally dose all medications - continue accuchecks with glycemic control per SSI (While critically ill target blood glucose of 140-180 mg/dL; avoid hypoglycemia) - sedation prn for target RASS -2 to -3 - continue to avoid benzodiazepine's, reduce the possibility of delirium - AB's per ID rec's (Diflucan & Flagyl now) - Maintenance of sleep-wake cycle, avoid delirium - continue enteral nutritional support at goal rate as tolerated - G.I. & VTE prophylaxis - PT/OT/ROM exercises - continue mobility protocols for pressure ulcer prophylaxis - Monitor hemodynamics closely - continue other care per attending / other consultants - discharge planning ongoing concurrently COVID SPECIFIC INTERVENTIONS - COVID-19 PCR negative .... Re-evaluate in am & prn CONDITION: CRITICAL PROGNOSIS: GUARDED CODE STATUS: FULL CODE The high probability of a clinically significant, sudden or life-threatening deterioration of the [respiratory, cardiovascular & neurologic] system(s) required my full and direct attention, intervention and personal management. The aggregate critical care time was [32] minutes without overlap. 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 s/p appendectomy; VRE infection; Open left hemicolectomy and partial omentectomy; Peritonitis; Diverticulitis with abscess;' BRYANNA; ABLA; Gross Hematuria Seen and examined at bedside; 24hour events reviewed; nursing and respiratory care staff consulted; no adverse overnight events reported to me; resting in bed; remains on MVS and tolerating well; s/p ex-lap, colostomy creation and abd wound closure; no gross bladder damage; no emesis or overt aspiration Objective Vital Signs - 12hr 10/14/21 10/14/21 10/14/21 22:30 22:32 23:00 Temperature Pulse Rate 98 H 95 H 91 H Pulse Rate [ From Monitor] Respiratory 17 10 L Rate Blood Pressure 196/97 196/97 147/90 O2 Sat by Pulse 98 100 Oximetry 10/14/21 10/14/21 10/14/21 23:08 23:30 23:37 Temperature Pulse Rate 91 H 90 92 H Pulse Rate [ From Monitor] Respiratory 13 12 12 Rate Blood Pressure 147/84 147/84 O2 Sat by Pulse 100 100 100 Oximetry 10/14/21 10/15/21 10/15/21 23:48 00:00 00:21 Temperature 99.2 F 99.7 F H Pulse Rate 90 90 Pulse Rate [ 89 From Monitor] Respiratory 11 L Rate Blood Pressure 141/81 141/81 O2 Sat by Pulse 100 100 Oximetry 10/15/21 10/15/21 10/15/21 00:30 01:00 01:30 Temperature Pulse Rate 90 91 H 100 H Pulse Rate [ From Monitor] Respiratory 10 L 15 13 Rate Blood Pressure 132/79 152/90 162/101 O2 Sat by Pulse 100 100 100 Oximetry 10/15/21 10/15/21 10/15/21 02:00 02:30 03:08 Temperature Pulse Rate 94 H 94 H 93 H Pulse Rate [ From Monitor] Respiratory 15 17 13 Rate Blood Pressure 150/91 152/89 141/81 O2 Sat by Pulse 100 100 100 Oximetry 10/15/21 10/15/21 10/15/21 03:30 04:00 04:30 Temperature Pulse Rate 94 H 96 H 105 H Pulse Rate [ 96 H From Monitor] Respiratory 12 14 14 Rate Blood Pressure 128/82 136/85 154/91 O2 Sat by Pulse 100 100 100 Oximetry 10/15/21 10/15/21 10/15/21 04:53 05:00 05:30 Temperature Pulse Rate 101 H 99 H 99 H Pulse Rate [ From Monitor] Respiratory 11 L 9 L Rate Blood Pressure 154/91 140/82 124/71 O2 Sat by Pulse 100 100 100 Oximetry 10/15/21 10/15/21 10/15/21 06:00 06:30 07:00 Temperature Pulse Rate 94 H 96 H 109 H Pulse Rate [ From Monitor] Respiratory 11 L 9 L 13 Rate Blood Pressure 125/70 130/75 142/89 O2 Sat by Pulse 100 100 100 Oximetry 10/15/21 10/15/21 10/15/21 07:30 08:00 08:25 Temperature 98.7 F Pulse Rate 109 H 113 H 109 H Pulse Rate [ From Monitor] Respiratory 13 13 Rate Blood Pressure 140/85 151/87 140/81 O2 Sat by Pulse 100 100 100 Oximetry 10/15/21 10/15/21 10/15/21 08:30 09:00 09:30 Temperature Pulse Rate 111 H 111 H 120 H Pulse Rate [ From Monitor] Respiratory 13 11 L 13 Rate Blood Pressure 140/81 131/83 121/77 O2 Sat by Pulse 100 100 100 Oximetry 10/15/21 10:00 Temperature Pulse Rate 103 H Pulse Rate [ From Monitor] Respiratory 15 Rate Blood Pressure 126/70 O2 Sat by Pulse 100 Oximetry Constitutional: no acute distress, other (young obese female without increased respiratory effort at rest on MVS) Eyes: non-icteric ENT: oropharynx moist, other (orally intubated ETT 7.5cm @24 at the lip) Neck: supple, other (RIJ CVL) Effort: mildly labored Ascultation: Bilateral: diminished breath sounds, rhonchi Percussion: Bilateral: not dull Cardiovascular: regular rate and rhythm, other (S1,S2) Gastrointestinal: hypoactive bowel sounds, soft, tender (mild), other (YURIDIA drains, anterior abdominal dressings, colostomy) Integumentary: normal, other (post-op changes) Extremities: no cyanosis, pulses normal, no ischemia or petechiae, edema Neurologic: non-focal exam, pupils equal and round, CN II-XII normal, motor strength normal and Psychiatric: other (sedated) CBC and BMP: 10/16/21 04:00 10/16/21 04:00 ABG, PT/INR, D-dimer: ABG ABG pH 7.342 pH Units (7.350-7.450) L 10/14/21 10:45 ABG pCO2 49.5 mm Hg 10/14/21 10:45 ABG pO2 96.0 mm Hg (80.0-90.0) H 10/14/21 10:45 ABG O2 Saturation 97.2 % (95.0-99.0) 10/14/21 10:45 PT/INR, D-dimer PT 19.0 Sec. (12.2-14.9) H 10/14/21 04:05 INR 1.41 (0.87-1.13) H 10/14/21 04:05 D-Dimer > 12048 ng/mlDDU (0-234) H 10/09/21 08:45 Abnormal lab findings: Abnormal Labs 09/24/21 09/24/21 09/24/21 14:49 14:58 14:58 WBC 32.4 H RBC Hgb Hct MCH RDW Plt Count 535 H [place] # (Auto) Seg Neutrophils % Seg Neuts % (Manual) 82.0 H Lymphocytes % (Manual) 2.0 L Monocytes % (Manual) Nucleated RBC % Seg Neutrophils # Seg Neutrophils # Man 26.6 H Lymphocytes # (Manual) 0.6 L Monocytes # (Manual) 1.6 H PT INR D-Dimer ABG pH ABG pO2 ABG HCO3 ABG O2 Saturation ABG Base Excess ABG Hemoglobin Oxyhemoglobin Sodium 134 L Potassium 3.5 L Chloride 97.6 L Carbon Dioxide BUN Creatinine Glucose 119 H POC Glucose Lactic Acid Calcium Phosphorus Magnesium Ferritin Lactate Dehydrogenase Total Creatine Kinase C-Reactive Protein Total Protein 6.1 L Albumin 3.3 L U Epithel Cells (Auto) 18.0 H Crossmatch 09/25/21 09/25/21 09/26/21 05:47 05:47 04:20 WBC 25.4 H 23.6 H RBC 3.54 L Hgb Hct MCH RDW Plt Count 466 H 486 H [place] # (Auto) Seg Neutrophils % Seg Neuts % (Manual) 93.0 H 86.0 H Lymphocytes % (Manual) 4.0 L 3.0 L Monocytes % (Manual) Nucleated RBC % Seg Neutrophils # Seg Neutrophils # Man 23.6 H 20.3 H Lymphocytes # (Manual) 1.0 L 0.7 L Monocytes # (Manual) 0.9 H PT INR D-Dimer ABG pH ABG pO2 ABG HCO3 ABG O2 Saturation ABG Base Excess ABG Hemoglobin Oxyhemoglobin Sodium 136 L Potassium 3.0 L Chloride Carbon Dioxide 21 L BUN Creatinine Glucose POC Glucose Lactic Acid Calcium 7.8 L Phosphorus Magnesium Ferritin Lactate Dehydrogenase Total Creatine Kinase C-Reactive Protein Total Protein Albumin U Epithel Cells (Auto) Crossmatch 09/26/21 09/27/21 09/27/21 04:20 08:28 08:28 WBC 20.6 H RBC 3.42 L Hgb 9.9 L Hct 29.5 L D MCH RDW Plt Count [place] # (Auto) Seg Neutrophils % Seg Neuts % (Manual) 94.1 H Lymphocytes % (Manual) 1.0 L Monocytes % (Manual) Nucleated RBC % Seg Neutrophils # Seg Neutrophils # Man 19.4 H Lymphocytes # (Manual) 0.2 L Monocytes # (Manual) PT INR D-Dimer ABG pH ABG pO2 ABG HCO3 ABG O2 Saturation ABG Base Excess ABG Hemoglobin Oxyhemoglobin Sodium Potassium 3.2 L Chloride Carbon Dioxide 20 L BUN Creatinine Glucose 137 H POC Glucose Lactic Acid Calcium 8.3 L 8.2 L Phosphorus Magnesium Ferritin Lactate Dehydrogenase Total Creatine Kinase C-Reactive Protein Total Protein Albumin U Epithel Cells (Auto) Crossmatch 09/28/21 09/28/21 09/29/21 04:55 15:35 07:02 WBC 15.1 H 16.5 H RBC 3.34 L 3.20 L Hgb 9.3 L 9.1 L Hct 28.7 L 27.3 L MCH RDW 15.3 H Plt Count 444 H 469 H [place] # (Auto) 0.9 H Seg Neutrophils % 89.3 H Seg Neuts % (Manual) 88.0 H 80.0 H Lymphocytes % (Manual) 9.0 L 8.0 L Monocytes % (Manual) Nucleated RBC % Seg Neutrophils # 14.0 H Seg Neutrophils # Man 13.3 H 13.2 H Lymphocytes # (Manual) Monocytes # (Manual) PT INR D-Dimer ABG pH ABG pO2 ABG HCO3 ABG O2 Saturation ABG Base Excess ABG Hemoglobin Oxyhemoglobin Sodium Potassium 3.3 L Chloride 109.4 H Carbon Dioxide 20 L BUN Creatinine 0.5 L Glucose POC Glucose Lactic Acid Calcium 7.9 L Phosphorus Magnesium Ferritin Lactate Dehydrogenase Total Creatine Kinase C-Reactive Protein Total Protein Albumin U Epithel Cells (Auto) Crossmatch 09/30/21 09/30/21 10/01/21 05:40 05:40 07:49 WBC 17.4 H 17.9 H RBC 3.37 L 3.32 L Hgb 9.2 L 9.3 L Hct 28.4 L 28.3 L MCH 27 L RDW 15.4 H 15.5 H Plt Count 530 H 604 H [place] # (Auto) Seg Neutrophils % Seg Neuts % (Manual) 91.0 H 72.0 H Lymphocytes % (Manual) 9.0 L 1.0 L Monocytes % (Manual) 8.0 H Nucleated RBC % 1.0 H Seg Neutrophils # Seg Neutrophils # Man 15.8 H 12.9 H Lymphocytes # (Manual) 0.2 L Monocytes # (Manual) 1.4 H PT INR D-Dimer ABG pH ABG pO2 ABG HCO3 ABG O2 Saturation ABG Base Excess ABG Hemoglobin Oxyhemoglobin Sodium Potassium 3.5 L Chloride Carbon Dioxide 21 L BUN Creatinine 0.5 L Glucose POC Glucose Lactic Acid Calcium 8.0 L Phosphorus Magnesium Ferritin Lactate Dehydrogenase Total Creatine Kinase C-Reactive Protein Total Protein Albumin U Epithel Cells (Auto) Crossmatch 10/01/21 10/01/21 10/02/21 07:49 10:45 05:41 WBC 23.2 H RBC 2.90 L Hgb 7.9 L Hct 24.8 L MCH 27 L RDW 15.3 H Plt Count 621 H [place] # (Auto) Seg Neutrophils % Seg Neuts % (Manual) 88.0 H Lymphocytes % (Manual) 2.0 L Monocytes % (Manual) Nucleated RBC % Seg Neutrophils # Seg Neutrophils # Man 20.4 H Lymphocytes # (Manual) 0.5 L Monocytes # (Manual) 1.4 H PT INR D-Dimer ABG pH ABG pO2 ABG HCO3 ABG O2 Saturation ABG Base Excess ABG Hemoglobin Oxyhemoglobin Sodium Potassium Chloride Carbon Dioxide 20 L BUN Creatinine 0.5 L Glucose POC Glucose Lactic Acid Calcium 7.6 L Phosphorus Magnesium Ferritin Lactate Dehydrogenase Total Creatine Kinase C-Reactive Protein Total Protein Albumin U Epithel Cells (Auto) Crossmatch See Detail 10/02/21 10/02/21 10/02/21 05:41 07:47 11:10 WBC RBC Hgb Hct MCH RDW Plt Count [place] # (Auto) Seg Neutrophils % Seg Neuts % (Manual) Lymphocytes % (Manual) Monocytes % (Manual) Nucleated RBC % Seg Neutrophils # Seg Neutrophils # Man Lymphocytes # (Manual) Monocytes # (Manual) PT INR D-Dimer ABG pH ABG pO2 ABG HCO3 ABG O2 Saturation ABG Base Excess ABG Hemoglobin Oxyhemoglobin Sodium Potassium Chloride Carbon Dioxide BUN Creatinine Glucose 130 H POC Glucose 145 H 120 H Lactic Acid Calcium 6.9 L Phosphorus Magnesium Ferritin Lactate Dehydrogenase Total Creatine Kinase C-Reactive Protein Total Protein Albumin U Epithel Cells (Auto) Crossmatch 10/02/21 10/03/21 10/03/21 16:14 04:55 04:55 WBC 26.1 H RBC 2.31 L Hgb 6.3 L Hct 19.8 L* MCH RDW 15.9 H Plt Count 598 H [place] # (Auto) Seg Neutrophils % Seg Neuts % (Manual) 82.0 H Lymphocytes % (Manual) 1.0 L Monocytes % (Manual) 10.0 H Nucleated RBC % Seg Neutrophils # Seg Neutrophils # Man 21.4 H Lymphocytes # (Manual) 0.3 L Monocytes # (Manual) 2.6 H PT INR D-Dimer ABG pH ABG pO2 ABG HCO3 ABG O2 Saturation ABG Base Excess ABG Hemoglobin Oxyhemoglobin Sodium Potassium Chloride Carbon Dioxide BUN 22 H Creatinine 1.7 H D Glucose 145 H POC Glucose 109 H Lactic Acid Calcium 6.4 L Phosphorus Magnesium 2.40 H Ferritin Lactate Dehydrogenase Total Creatine Kinase C-Reactive Protein Total Protein 4.2 L Albumin 1.6 L U Epithel Cells (Auto) Crossmatch 10/03/21 10/03/21 10/03/21 07:15 11:49 17:06 WBC RBC Hgb Hct MCH RDW Plt Count [place] # (Auto) Seg Neutrophils % Seg Neuts % (Manual) Lymphocytes % (Manual) Monocytes % (Manual) Nucleated RBC % Seg Neutrophils # Seg Neutrophils # Man Lymphocytes # (Manual) Monocytes # (Manual) PT INR D-Dimer ABG pH ABG pO2 ABG HCO3 ABG O2 Saturation ABG Base Excess ABG Hemoglobin Oxyhemoglobin Sodium Potassium Chloride Carbon Dioxide BUN Creatinine Glucose POC Glucose 162 H 171 H 174 H Lactic Acid Calcium Phosphorus Magnesium Ferritin Lactate Dehydrogenase Total Creatine Kinase C-Reactive Protein Total Protein Albumin U Epithel Cells (Auto) Crossmatch 10/03/21 10/04/21 10/04/21 23:31 04:44 04:44 WBC 26.4 H RBC 2.33 L Hgb 6.6 L Hct 19.4 L* MCH RDW 16.1 H Plt Count 602 H [place] # (Auto) Seg Neutrophils % Seg Neuts % (Manual) 80.0 H Lymphocytes % (Manual) 5.0 L Monocytes % (Manual) Nucleated RBC % Seg Neutrophils # Seg Neutrophils # Man 21.1 H Lymphocytes # (Manual) Monocytes # (Manual) 1.8 H PT INR D-Dimer ABG pH ABG pO2 ABG HCO3 ABG O2 Saturation ABG Base Excess ABG Hemoglobin Oxyhemoglobin Sodium 135 L Potassium 3.4 L Chloride Carbon Dioxide 21 L BUN 28 H Creatinine 2.0 H Glucose 171 H POC Glucose 179 H Lactic Acid Calcium 6.7 L Phosphorus 1.30 L D Magnesium 2.40 H Ferritin Lactate Dehydrogenase Total Creatine Kinase C-Reactive Protein Total Protein Albumin U Epithel Cells (Auto) Crossmatch 10/04/21 10/04/21 10/04/21 05:25 12:01 13:30 WBC RBC Hgb Hct MCH RDW Plt Count [place] # (Auto) Seg Neutrophils % Seg Neuts % (Manual) Lymphocytes % (Manual) Monocytes % (Manual) Nucleated RBC % Seg Neutrophils # Seg Neutrophils # Man Lymphocytes # (Manual) Monocytes # (Manual) PT INR D-Dimer ABG pH ABG pO2 ABG HCO3 ABG O2 Saturation ABG Base Excess ABG Hemoglobin Oxyhemoglobin Sodium Potassium Chloride Carbon Dioxide BUN Creatinine Glucose POC Glucose 174 H 172 H Lactic Acid Calcium Phosphorus Magnesium Ferritin Lactate Dehydrogenase Total Creatine Kinase C-Reactive Protein Total Protein Albumin U Epithel Cells (Auto) Crossmatch See Detail 10/04/21 10/04/21 10/04/21 16:47 20:28 22:23 WBC RBC Hgb 8.5 L Hct 25.1 L MCH RDW Plt Count [place] # (Auto) Seg Neutrophils % Seg Neuts % (Manual) Lymphocytes % (Manual) Monocytes % (Manual) Nucleated RBC % Seg Neutrophils # Seg Neutrophils # Man Lymphocytes # (Manual) Monocytes # (Manual) PT INR D-Dimer ABG pH ABG pO2 ABG HCO3 ABG O2 Saturation ABG Base Excess ABG Hemoglobin Oxyhemoglobin Sodium Potassium Chloride Carbon Dioxide BUN Creatinine Glucose POC Glucose 135 H 152 H Lactic Acid Calcium Phosphorus Magnesium Ferritin Lactate Dehydrogenase Total Creatine Kinase C-Reactive Protein Total Protein Albumin U Epithel Cells (Auto) Crossmatch 10/05/21 10/05/21 10/05/21 04:40 04:40 04:40 WBC 24.7 H RBC 3.02 L Hgb 8.4 L Hct 25.5 L MCH RDW 16.2 H Plt Count 644 H [place] # (Auto) Seg Neutrophils % Seg Neuts % (Manual) 91.0 H Lymphocytes % (Manual) 7.0 L Monocytes % (Manual) Nucleated RBC % Seg Neutrophils # Seg Neutrophils # Man 22.5 H Lymphocytes # (Manual) Monocytes # (Manual) PT 17.8 H INR 1.31 H D-Dimer ABG pH ABG pO2 ABG HCO3 ABG O2 Saturation ABG Base Excess ABG Hemoglobin Oxyhemoglobin Sodium 135 L Potassium Chloride Carbon Dioxide BUN 29 H Creatinine 2.1 H Glucose 156 H POC Glucose Lactic Acid Calcium 7.6 L Phosphorus 1.90 L D Magnesium Ferritin Lactate Dehydrogenase Total Creatine Kinase C-Reactive Protein Total Protein 5.2 L D Albumin 1.8 L U Epithel Cells (Auto) Crossmatch 10/05/21 10/05/21 10/05/21 05:08 18:17 23:37 WBC RBC Hgb Hct MCH RDW Plt Count [place] # (Auto) Seg Neutrophils % Seg Neuts % (Manual) Lymphocytes % (Manual) Monocytes % (Manual) Nucleated RBC % Seg Neutrophils # Seg Neutrophils # Man Lymphocytes # (Manual) Monocytes # (Manual) PT INR D-Dimer ABG pH ABG pO2 ABG HCO3 ABG O2 Saturation ABG Base Excess ABG Hemoglobin Oxyhemoglobin Sodium Potassium Chloride Carbon Dioxide BUN Creatinine Glucose POC Glucose 156 H 119 H 130 H Lactic Acid Calcium Phosphorus Magnesium Ferritin Lactate Dehydrogenase Total Creatine Kinase C-Reactive Protein Total Protein Albumin U Epithel Cells (Auto) Crossmatch 10/06/21 10/06/21 10/06/21 04:27 05:27 05:27 WBC 23.4 H RBC 2.84 L Hgb 7.8 L Hct 23.9 L MCH RDW 16.2 H Plt Count 712 H [place] # (Auto) Seg Neutrophils % Seg Neuts % (Manual) Lymphocytes % (Manual) Monocytes % (Manual) Nucleated RBC % Seg Neutrophils # Seg Neutrophils # Man Lymphocytes # (Manual) Monocytes # (Manual) PT INR D-Dimer ABG pH ABG pO2 ABG HCO3 ABG O2 Saturation ABG Base Excess ABG Hemoglobin Oxyhemoglobin Sodium 134 L Potassium Chloride Carbon Dioxide 20 L BUN 28 H Creatinine 1.9 H Glucose 132 H POC Glucose 132 H Lactic Acid Calcium 7.8 L Phosphorus Magnesium Ferritin Lactate Dehydrogenase Total Creatine Kinase 242 H C-Reactive Protein Total Protein Albumin U Epithel Cells (Auto) Crossmatch 10/06/21 10/06/21 10/06/21 16:40 20:50 23:39 WBC RBC Hgb Hct MCH RDW Plt Count [place] # (Auto) Seg Neutrophils % Seg Neuts % (Manual) Lymphocytes % (Manual) Monocytes % (Manual) Nucleated RBC % Seg Neutrophils # Seg Neutrophils # Man Lymphocytes # (Manual) Monocytes # (Manual) PT INR D-Dimer ABG pH ABG pO2 ABG HCO3 ABG O2 Saturation ABG Base Excess ABG Hemoglobin Oxyhemoglobin Sodium Potassium Chloride Carbon Dioxide BUN Creatinine Glucose POC Glucose 133 H 116 H 132 H Lactic Acid Calcium Phosphorus Magnesium Ferritin Lactate Dehydrogenase Total Creatine Kinase C-Reactive Protein Total Protein Albumin U Epithel Cells (Auto) Crossmatch 10/07/21 10/07/21 10/07/21 05:09 05:13 09:43 WBC 22.3 H RBC 2.81 L Hgb 7.8 L Hct 24.0 L MCH RDW 16.5 H Plt Count 733 H [place] # (Auto) Seg Neutrophils % Seg Neuts % (Manual) 85.0 H Lymphocytes % (Manual) 1.0 L Monocytes % (Manual) Nucleated RBC % Seg Neutrophils # Seg Neutrophils # Man 19.0 H Lymphocytes # (Manual) 0.2 L Monocytes # (Manual) 1.6 H PT INR D-Dimer ABG pH ABG pO2 ABG HCO3 ABG O2 Saturation ABG Base Excess ABG Hemoglobin Oxyhemoglobin Sodium 136 L Potassium Chloride Carbon Dioxide 20 L BUN 29 H Creatinine 1.9 H Glucose 140 H POC Glucose 139 H Lactic Acid Calcium 7.6 L Phosphorus Magnesium Ferritin Lactate Dehydrogenase Total Creatine Kinase C-Reactive Protein Total Protein Albumin U Epithel Cells (Auto) Crossmatch 10/07/21 10/07/21 10/08/21 11:38 17:44 00:20 WBC RBC Hgb Hct MCH RDW Plt Count [place] # (Auto) Seg Neutrophils % Seg Neuts % (Manual) Lymphocytes % (Manual) Monocytes % (Manual) Nucleated RBC % Seg Neutrophils # Seg Neutrophils # Man Lymphocytes # (Manual) Monocytes # (Manual) PT INR D-Dimer ABG pH ABG pO2 ABG HCO3 ABG O2 Saturation ABG Base Excess ABG Hemoglobin Oxyhemoglobin Sodium Potassium Chloride Carbon Dioxide BUN Creatinine Glucose POC Glucose 126 H 113 H 129 H Lactic Acid Calcium Phosphorus Magnesium Ferritin Lactate Dehydrogenase Total Creatine Kinase C-Reactive Protein Total Protein Albumin U Epithel Cells (Auto) Crossmatch 10/08/21 10/08/21 10/08/21 05:26 05:26 05:29 WBC 21.8 H RBC 2.84 L Hgb 7.8 L Hct 24.1 L MCH 27 L RDW 16.5 H Plt Count 789 H [place] # (Auto) Seg Neutrophils % Seg Neuts % (Manual) Lymphocytes % (Manual) Monocytes % (Manual) Nucleated RBC % Seg Neutrophils # Seg Neutrophils # Man Lymphocytes # (Manual) Monocytes # (Manual) PT INR D-Dimer ABG pH ABG pO2 ABG HCO3 ABG O2 Saturation ABG Base Excess ABG Hemoglobin Oxyhemoglobin Sodium 136 L Potassium Chloride Carbon Dioxide 20 L BUN 31 H Creatinine 1.7 H Glucose 134 H POC Glucose 123 H Lactic Acid Calcium 7.9 L Phosphorus 4.60 H D Magnesium Ferritin Lactate Dehydrogenase Total Creatine Kinase C-Reactive Protein Total Protein Albumin U Epithel Cells (Auto) Crossmatch 10/08/21 10/08/21 10/08/21 11:53 17:07 20:08 WBC RBC Hgb Hct MCH RDW Plt Count [place] # (Auto) Seg Neutrophils % Seg Neuts % (Manual) Lymphocytes % (Manual) Monocytes % (Manual) Nucleated RBC % Seg Neutrophils # Seg Neutrophils # Man Lymphocytes # (Manual) Monocytes # (Manual) PT INR D-Dimer ABG pH 7.308 L ABG pO2 40.2 L ABG HCO3 15.7 L ABG O2 Saturation 68 L ABG Base Excess -9.6 L ABG Hemoglobin 9.7 L Oxyhemoglobin 67.8 L Sodium Potassium Chloride Carbon Dioxide BUN Creatinine Glucose POC Glucose 128 H 139 H Lactic Acid Calcium Phosphorus Magnesium Ferritin Lactate Dehydrogenase Total Creatine Kinase C-Reactive Protein Total Protein Albumin U Epithel Cells (Auto) Crossmatch 10/08/21 10/08/21 10/08/21 21:30 22:55 22:55 WBC RBC Hgb Hct MCH RDW Plt Count [place] # (Auto) Seg Neutrophils % Seg Neuts % (Manual) Lymphocytes % (Manual) Monocytes % (Manual) Nucleated RBC % Seg Neutrophils # Seg Neutrophils # Man Lymphocytes # (Manual) Monocytes # (Manual) PT INR D-Dimer ABG pH ABG pO2 43.8 L ABG HCO3 19.5 L ABG O2 Saturation 70.7 L ABG Base Excess -5.3 L ABG Hemoglobin 8.6 L Oxyhemoglobin 69.4 L Sodium Potassium Chloride Carbon Dioxide BUN Creatinine Glucose POC Glucose Lactic Acid 2.50 H* Calcium Phosphorus Magnesium Ferritin Lactate Dehydrogenase Total Creatine Kinase C-Reactive Protein Total Protein Albumin U Epithel Cells (Auto) Crossmatch See Detail 10/09/21 10/09/21 10/09/21 03:12 05:31 05:31 WBC 20.3 H RBC 2.70 L Hgb 7.4 L Hct 23.1 L MCH 27 L RDW 16.6 H Plt Count 786 H [place] # (Auto) Seg Neutrophils % Seg Neuts % (Manual) 88.0 H Lymphocytes % (Manual) 3.0 L Monocytes % (Manual) Nucleated RBC % Seg Neutrophils # Seg Neutrophils # Man 17.9 H Lymphocytes # (Manual) 0.6 L Monocytes # (Manual) 1.2 H PT INR D-Dimer ABG pH ABG pO2 ABG HCO3 ABG O2 Saturation ABG Base Excess ABG Hemoglobin Oxyhemoglobin Sodium 136 L Potassium Chloride Carbon Dioxide 20 L BUN 32 H Creatinine 1.5 H Glucose 214 H POC Glucose 190 H Lactic Acid Calcium 7.5 L Phosphorus Magnesium Ferritin Lactate Dehydrogenase Total Creatine Kinase C-Reactive Protein Total Protein 5.8 L Albumin 2.3 L U Epithel Cells (Auto) Crossmatch 10/09/21 10/09/21 10/09/21 05:31 05:31 05:31 WBC RBC Hgb Hct MCH RDW Plt Count [place] # (Auto) Seg Neutrophils % Seg Neuts % (Manual) Lymphocytes % (Manual) Monocytes % (Manual) Nucleated RBC % Seg Neutrophils # Seg Neutrophils # Man Lymphocytes # (Manual) Monocytes # (Manual) PT INR D-Dimer ABG pH ABG pO2 ABG HCO3 ABG O2 Saturation ABG Base Excess ABG Hemoglobin Oxyhemoglobin Sodium Potassium Chloride Carbon Dioxide BUN Creatinine Glucose POC Glucose Lactic Acid 2.20 H* Calcium Phosphorus Magnesium Ferritin 751.9 H Lactate Dehydrogenase Total Creatine Kinase C-Reactive Protein 15.90 H Total Protein Albumin U Epithel Cells (Auto) Crossmatch 10/09/21 10/09/21 10/09/21 05:31 08:45 12:08 WBC RBC Hgb Hct MCH RDW Plt Count [place] # (Auto) Seg Neutrophils % Seg Neuts % (Manual) Lymphocytes % (Manual) Monocytes % (Manual) Nucleated RBC % Seg Neutrophils # Seg Neutrophils # Man Lymphocytes # (Manual) Monocytes # (Manual) PT INR D-Dimer > 64869 H ABG pH ABG pO2 54.3 L ABG HCO3 ABG O2 Saturation 86.6 L ABG Base Excess -2.6 L ABG Hemoglobin 7.2 L Oxyhemoglobin 85.3 L Sodium Potassium Chloride Carbon Dioxide BUN Creatinine Glucose POC Glucose Lactic Acid Calcium Phosphorus Magnesium Ferritin Lactate Dehydrogenase 472 H Total Creatine Kinase C-Reactive Protein Total Protein Albumin U Epithel Cells (Auto) Crossmatch 10/09/21 10/09/21 10/10/21 12:19 17:43 00:30 WBC RBC Hgb Hct MCH RDW Plt Count [place] # (Auto) Seg Neutrophils % Seg Neuts % (Manual) Lymphocytes % (Manual) Monocytes % (Manual) Nucleated RBC % Seg Neutrophils # Seg Neutrophils # Man Lymphocytes # (Manual) Monocytes # (Manual) PT INR D-Dimer ABG pH ABG pO2 ABG HCO3 ABG O2 Saturation ABG Base Excess ABG Hemoglobin Oxyhemoglobin Sodium Potassium Chloride Carbon Dioxide BUN Creatinine Glucose POC Glucose 151 H 136 H 132 H Lactic Acid Calcium Phosphorus Magnesium Ferritin Lactate Dehydrogenase Total Creatine Kinase C-Reactive Protein Total Protein Albumin U Epithel Cells (Auto) Crossmatch 10/10/21 10/10/21 10/10/21 04:10 04:10 05:41 WBC 20.8 H RBC 2.54 L Hgb 7.1 L Hct 21.8 L MCH RDW 16.6 H Plt Count 740 H [place] # (Auto) Seg Neutrophils % Seg Neuts % (Manual) Lymphocytes % (Manual) Monocytes % (Manual) Nucleated RBC % Seg Neutrophils # Seg Neutrophils # Man Lymphocytes # (Manual) Monocytes # (Manual) PT INR D-Dimer ABG pH ABG pO2 ABG HCO3 ABG O2 Saturation ABG Base Excess ABG Hemoglobin Oxyhemoglobin Sodium 130 L Potassium Chloride 97.9 L Carbon Dioxide 19 L BUN 37 H Creatinine 1.4 H Glucose 181 H POC Glucose 150 H Lactic Acid Calcium 7.8 L Phosphorus Magnesium Ferritin Lactate Dehydrogenase Total Creatine Kinase C-Reactive Protein Total Protein Albumin U Epithel Cells (Auto) Crossmatch 10/10/21 10/10/21 10/10/21 11:10 16:00 23:50 WBC RBC Hgb Hct MCH RDW Plt Count [place] # (Auto) Seg Neutrophils % Seg Neuts % (Manual) Lymphocytes % (Manual) Monocytes % (Manual) Nucleated RBC % Seg Neutrophils # Seg Neutrophils # Man Lymphocytes # (Manual) Monocytes # (Manual) PT INR D-Dimer ABG pH ABG pO2 ABG HCO3 ABG O2 Saturation ABG Base Excess ABG Hemoglobin Oxyhemoglobin Sodium Potassium Chloride Carbon Dioxide BUN Creatinine Glucose POC Glucose 136 H 151 H 129 H Lactic Acid Calcium Phosphorus Magnesium Ferritin Lactate Dehydrogenase Total Creatine Kinase C-Reactive Protein Total Protein Albumin U Epithel Cells (Auto) Crossmatch 10/10/21 10/11/21 10/11/21 Unknown 03:30 03:30 WBC 23.2 H RBC 2.39 L Hgb 6.7 L Hct 20.3 L MCH RDW 16.7 H Plt Count 701 H [place] # (Auto) Seg Neutrophils % Seg Neuts % (Manual) Lymphocytes % (Manual) Monocytes % (Manual) Nucleated RBC % Seg Neutrophils # Seg Neutrophils # Man Lymphocytes # (Manual) Monocytes # (Manual) PT INR D-Dimer ABG pH 7.505 H ABG pO2 246.1 H ABG HCO3 ABG O2 Saturation 99.4 H ABG Base Excess ABG Hemoglobin 6.0 L Oxyhemoglobin Sodium 135 L Potassium Chloride Carbon Dioxide 20 L BUN 38 H Creatinine 1.6 H Glucose 118 H POC Glucose Lactic Acid Calcium 7.9 L Phosphorus Magnesium Ferritin Lactate Dehydrogenase Total Creatine Kinase C-Reactive Protein Total Protein Albumin U Epithel Cells (Auto) Crossmatch 10/11/21 10/11/21 10/12/21 11:41 17:51 00:18 WBC RBC Hgb Hct MCH RDW Plt Count [place] # (Auto) Seg Neutrophils % Seg Neuts % (Manual) Lymphocytes % (Manual) Monocytes % (Manual) Nucleated RBC % Seg Neutrophils # Seg Neutrophils # Man Lymphocytes # (Manual) Monocytes # (Manual) PT INR D-Dimer ABG pH ABG pO2 ABG HCO3 ABG O2 Saturation ABG Base Excess ABG Hemoglobin Oxyhemoglobin Sodium Potassium Chloride Carbon Dioxide BUN Creatinine Glucose POC Glucose 128 H 138 H 174 H Lactic Acid Calcium Phosphorus Magnesium Ferritin Lactate Dehydrogenase Total Creatine Kinase C-Reactive Protein Total Protein Albumin U Epithel Cells (Auto) Crossmatch 10/12/21 10/12/21 10/12/21 05:39 06:02 06:02 WBC 19.1 H RBC 3.56 L Hgb 10.0 L D Hct MCH RDW 17.0 H Plt Count 712 H [place] # (Auto) Seg Neutrophils % Seg Neuts % (Manual) Lymphocytes % (Manual) Monocytes % (Manual) Nucleated RBC % Seg Neutrophils # Seg Neutrophils # Man Lymphocytes # (Manual) Monocytes # (Manual) PT INR D-Dimer ABG pH ABG pO2 ABG HCO3 ABG O2 Saturation ABG Base Excess ABG Hemoglobin Oxyhemoglobin Sodium Potassium Chloride Carbon Dioxide BUN 37 H Creatinine 1.5 H Glucose 172 H POC Glucose 158 H Lactic Acid Calcium 8.1 L Phosphorus Magnesium Ferritin Lactate Dehydrogenase Total Creatine Kinase C-Reactive Protein Total Protein Albumin U Epithel Cells (Auto) Crossmatch 10/12/21 10/12/21 10/12/21 06:02 06:05 17:43 WBC RBC Hgb Hct MCH RDW Plt Count [place] # (Auto) Seg Neutrophils % Seg Neuts % (Manual) Lymphocytes % (Manual) Monocytes % (Manual) Nucleated RBC % Seg Neutrophils # Seg Neutrophils # Man Lymphocytes # (Manual) Monocytes # (Manual) PT 17.1 H INR 1.24 H D-Dimer ABG pH ABG pO2 ABG HCO3 ABG O2 Saturation ABG Base Excess ABG Hemoglobin Oxyhemoglobin Sodium Potassium Chloride Carbon Dioxide BUN Creatinine Glucose POC Glucose 173 H Lactic Acid Calcium Phosphorus Magnesium Ferritin Lactate Dehydrogenase Total Creatine Kinase C-Reactive Protein Total Protein Albumin U Epithel Cells (Auto) Crossmatch See Detail 10/12/21 10/12/21 10/13/21 23:28 Unknown 04:05 WBC RBC Hgb 10.0 L Hct MCH RDW Plt Count [place] # (Auto) Seg Neutrophils % Seg Neuts % (Manual) Lymphocytes % (Manual) Monocytes % (Manual) Nucleated RBC % Seg Neutrophils # Seg Neutrophils # Man Lymphocytes # (Manual) Monocytes # (Manual) PT INR D-Dimer ABG pH ABG pO2 ABG HCO3 ABG O2 Saturation ABG Base Excess ABG Hemoglobin Oxyhemoglobin Sodium Potassium Chloride Carbon Dioxide BUN 34 H Creatinine Glucose 200 H POC Glucose 178 H Lactic Acid Calcium 7.5 L Phosphorus Magnesium 1.60 L Ferritin Lactate Dehydrogenase Total Creatine Kinase C-Reactive Protein Total Protein Albumin U Epithel Cells (Auto) Crossmatch 10/13/21 10/13/21 10/13/21 05:09 10:55 13:34 WBC 23.8 H RBC 3.14 L Hgb 9.2 L Hct 27.7 L MCH RDW 17.5 H Plt Count 572 H [place] # (Auto) Seg Neutrophils % Seg Neuts % (Manual) Lymphocytes % (Manual) Monocytes % (Manual) Nucleated RBC % Seg Neutrophils # Seg Neutrophils # Man Lymphocytes # (Manual) Monocytes # (Manual) PT INR D-Dimer ABG pH ABG pO2 ABG HCO3 ABG O2 Saturation ABG Base Excess ABG Hemoglobin Oxyhemoglobin Sodium Potassium Chloride Carbon Dioxide BUN Creatinine Glucose POC Glucose 210 H 168 H Lactic Acid Calcium Phosphorus Magnesium Ferritin Lactate Dehydrogenase Total Creatine Kinase C-Reactive Protein Total Protein Albumin U Epithel Cells (Auto) Crossmatch 10/13/21 10/13/21 10/14/21 15:35 23:10 04:05 WBC 19.4 H RBC 2.98 L Hgb 8.4 L Hct 26.3 L MCH RDW 17.1 H Plt Count 561 H [place] # (Auto) Seg Neutrophils % Seg Neuts % (Manual) Lymphocytes % (Manual) Monocytes % (Manual) Nucleated RBC % Seg Neutrophils # Seg Neutrophils # Man Lymphocytes # (Manual) Monocytes # (Manual) PT INR D-Dimer ABG pH ABG pO2 ABG HCO3 ABG O2 Saturation ABG Base Excess ABG Hemoglobin Oxyhemoglobin Sodium Potassium Chloride Carbon Dioxide BUN Creatinine Glucose POC Glucose 154 H 135 H Lactic Acid Calcium Phosphorus Magnesium Ferritin Lactate Dehydrogenase Total Creatine Kinase C-Reactive Protein Total Protein Albumin U Epithel Cells (Auto) Crossmatch 10/14/21 10/14/21 10/14/21 04:05 04:05 05:08 WBC RBC Hgb Hct MCH RDW Plt Count [place] # (Auto) Seg Neutrophils % Seg Neuts % (Manual) Lymphocytes % (Manual) Monocytes % (Manual) Nucleated RBC % Seg Neutrophils # Seg Neutrophils # Man Lymphocytes # (Manual) Monocytes # (Manual) PT 19.0 H INR 1.41 H D-Dimer ABG pH ABG pO2 ABG HCO3 ABG O2 Saturation ABG Base Excess ABG Hemoglobin Oxyhemoglobin Sodium Potassium Chloride Carbon Dioxide BUN 33 H Creatinine Glucose 310 H POC Glucose 178 H Lactic Acid Calcium 7.4 L Phosphorus Magnesium Ferritin Lactate Dehydrogenase Total Creatine Kinase C-Reactive Protein Total Protein Albumin U Epithel Cells (Auto) Crossmatch 10/14/21 10/14/21 10/14/21 09:29 10:45 11:40 WBC RBC Hgb Hct MCH RDW Plt Count [place] # (Auto) Seg Neutrophils % Seg Neuts % (Manual) Lymphocytes % (Manual) Monocytes % (Manual) Nucleated RBC % Seg Neutrophils # Seg Neutrophils # Man Lymphocytes # (Manual) Monocytes # (Manual) PT INR D-Dimer ABG pH 7.342 L ABG pO2 96.0 H ABG HCO3 26.2 H ABG O2 Saturation ABG Base Excess ABG Hemoglobin 6.1 L Oxyhemoglobin 94.9 L Sodium Potassium Chloride Carbon Dioxide BUN Creatinine Glucose POC Glucose 155 H 137 H Lactic Acid Calcium Phosphorus Magnesium Ferritin Lactate Dehydrogenase Total Creatine Kinase C-Reactive Protein Total Protein Albumin U Epithel Cells (Auto) Crossmatch 10/14/21 10/14/21 10/14/21 15:40 21:21 23:46 WBC RBC Hgb Hct MCH RDW Plt Count [place] # (Auto) Seg Neutrophils % Seg Neuts % (Manual) Lymphocytes % (Manual) Monocytes % (Manual) Nucleated RBC % Seg Neutrophils # Seg Neutrophils # Man Lymphocytes # (Manual) Monocytes # (Manual) PT INR D-Dimer ABG pH ABG pO2 ABG HCO3 ABG O2 Saturation ABG Base Excess ABG Hemoglobin Oxyhemoglobin Sodium Potassium Chloride Carbon Dioxide BUN Creatinine Glucose POC Glucose 140 H 111 H 164 H Lactic Acid Calcium Phosphorus Magnesium Ferritin Lactate Dehydrogenase Total Creatine Kinase C-Reactive Protein Total Protein Albumin U Epithel Cells (Auto) Crossmatch 10/15/21 10/15/21 10/15/21 05:06 05:40 05:40 WBC 22.7 H RBC 2.94 L Hgb 8.7 L Hct 25.8 L MCH RDW 17.2 H Plt Count 620 H [place] # (Auto) Seg Neutrophils % Seg Neuts % (Manual) Lymphocytes % (Manual) Monocytes % (Manual) Nucleated RBC % Seg Neutrophils # Seg Neutrophils # Man Lymphocytes # (Manual) Monocytes # (Manual) PT INR D-Dimer ABG pH ABG pO2 ABG HCO3 ABG O2 Saturation ABG Base Excess ABG Hemoglobin Oxyhemoglobin Sodium Potassium Chloride Carbon Dioxide BUN 30 H Creatinine Glucose 175 H POC Glucose 155 H Lactic Acid Calcium 7.4 L Phosphorus Magnesium Ferritin Lactate Dehydrogenase Total Creatine Kinase C-Reactive Protein Total Protein Albumin U Epithel Cells (Auto) Crossmatch Chest x-ray: image reviewed (no acute process; tubes & lines in good position) Allied health notes reviewed: nursing
[2021-10-15] MEDS: fentaNYL DRIP Premix 2,000 MCG/100 ML BAG IV SCH ×2 (11:59→22:05)
--- NOTE | 2021-10-15 13:02 | Progress Note ---
Assessment and Plan Postop day #1 status post colostomy creation with closure of abdomen. Patient is afebrile and stable with low-grade tachycardia likely due to pain. Will continue antibiotics and supportive care. Will be slow to wean off of ventilator due to anticipation of significant abdominal pain from a tight abdominal closure. We will keep NG tube to low intermittent suction as I anticipate an extensive ileus. Creatinine has normalized she is making good urine output. Postop day #3 status post colorectal anastomosis takedown, with abdominal w ashout and ABThera wound VAC. Postop day #4 status post laparoscopic converted to open left hemicolectomy with appendectomy for perforated appendicitis with fistulization to sigmoid colon. Subjective Date of service: 10/15/21 Narrative: No acute events overnight in surgery. Objective Vital Signs - 12hr 10/15/21 10/15/21 10/15/21 01:00 01:30 02:00 Temperature Pulse Rate 91 H 100 H 94 H Pulse Rate [ From Monitor] Respiratory 15 13 15 Rate Blood Pressure 152/90 162/101 150/91 O2 Sat by Pulse 100 100 100 Oximetry 10/15/21 10/15/21 10/15/21 02:30 03:08 03:30 Temperature Pulse Rate 94 H 93 H 94 H Pulse Rate [ From Monitor] Respiratory 17 13 12 Rate Blood Pressure 152/89 141/81 128/82 O2 Sat by Pulse 100 100 100 Oximetry 10/15/21 10/15/21 10/15/21 04:00 04:30 04:53 Temperature Pulse Rate 96 H 105 H 101 H Pulse Rate [ 96 H From Monitor] Respiratory 14 14 Rate Blood Pressure 136/85 154/91 154/91 O2 Sat by Pulse 100 100 100 Oximetry 10/15/21 10/15/21 10/15/21 05:00 05:30 06:00 Temperature Pulse Rate 99 H 99 H 94 H Pulse Rate [ From Monitor] Respiratory 11 L 9 L 11 L Rate Blood Pressure 140/82 124/71 125/70 O2 Sat by Pulse 100 100 100 Oximetry 10/15/21 10/15/21 10/15/21 06:30 07:00 07:30 Temperature Pulse Rate 96 H 109 H 109 H Pulse Rate [ From Monitor] Respiratory 9 L 13 13 Rate Blood Pressure 130/75 142/89 140/85 O2 Sat by Pulse 100 100 100 Oximetry 10/15/21 10/15/21 10/15/21 08:00 08:25 08:30 Temperature 98.7 F Pulse Rate 113 H 109 H 111 H Pulse Rate [ From Monitor] Respiratory 13 13 Rate Blood Pressure 151/87 140/81 140/81 O2 Sat by Pulse 100 100 100 Oximetry 10/15/21 10/15/21 10/15/21 09:00 09:30 10:00 Temperature Pulse Rate 111 H 120 H 103 H Pulse Rate [ From Monitor] Respiratory 11 L 13 15 Rate Blood Pressure 131/83 121/77 126/70 O2 Sat by Pulse 100 100 100 Oximetry 10/15/21 10/15/21 10/15/21 10:30 11:00 11:30 Temperature Pulse Rate 111 H 106 H 102 H Pulse Rate [ From Monitor] Respiratory 13 12 13 Rate Blood Pressure 137/78 130/70 124/74 O2 Sat by Pulse 100 100 100 Oximetry 10/15/21 12:00 Temperature 98.5 F Pulse Rate 108 H Pulse Rate [ From Monitor] Respiratory 14 Rate Blood Pressure 128/76 O2 Sat by Pulse 100 Oximetry - General physical appearance well developed, no distress, moderate pain - Eyes PERRL - ENT no hearing loss - Respiratory normal expansion, clear to auscultation, other (Intubated on ventilator with minimal support settings) - Abdomen soft, other (Midline dressing clean dry and intact, colostomy mucosa is pink no air in bag yet. YURIDIA drain serous. Left flank drain murky. NG tube gastric contents bilious.) - Psychiatric other (Patient responds appropriately to stimulus and questions with head gestures) - Labs 10/15/21 05:40 10/15/21 05:40 Diabetes panel 10/15/21 Range/Units 05:40 Sodium 139 (137-145) mmol/L Potassium 4.8 (3.6-5.0) mmol/L Chloride 106.4 (98-107) mmol/L Carbon Dioxide 24 (22-30) mmol/L BUN 30 H (7-17) mg/dL Creatinine 1.0 (0.6-1.2) mg/dL Glucose 175 H (65-100) mg/dL Calcium 7.4 L (8.4-10.2) mg/dL Calcium panel 10/15/21 Range/Units 05:40 Calcium 7.4 L (8.4-10.2) mg/dL Phosphorus 3.50 (2.5-4.5) mg/dL Pituitary panel 10/15/21 Range/Units 05:40 Sodium 139 (137-145) mmol/L Potassium 4.8 (3.6-5.0) mmol/L Chloride 106.4 (98-107) mmol/L Carbon Dioxide 24 (22-30) mmol/L BUN 30 H (7-17) mg/dL Creatinine 1.0 (0.6-1.2) mg/dL Glucose 175 H (65-100) mg/dL Calcium 7.4 L (8.4-10.2) mg/dL Adrenal panel 10/15/21 Range/Units 05:40 Sodium 139 (137-145) mmol/L Potassium 4.8 (3.6-5.0) mmol/L Chloride 106.4 (98-107) mmol/L Carbon Dioxide 24 (22-30) mmol/L BUN 30 H (7-17) mg/dL Creatinine 1.0 (0.6-1.2) mg/dL Glucose 175 H (65-100) mg/dL Calcium 7.4 L (8.4-10.2) mg/dL
--- NOTE | 2021-10-15 13:04 | Progress Note ---
Subjective Date of service: 10/15/21 Principal diagnosis: Septic shock; AHRF; PNA; BRYANNA; s/p appendectomy; VRE infection; Peritonitis Interval history: new to our service hematuria ICU 31 YO Female with Obesity presented to ED---Patient reports "I'm hurting". Patient states that she has experienced abdominal pain, lower back pain, nausea, and multiple episodes of vomiting over the past 1 day. Patient transported to [facility] via private vehicle for further care and evaluation of the aforementioned symptoms. The patient was seen and evaluated in the emergency department. All lab and imaging studies reviewed. Patient underwent CT scan of the abdomen and pelvis and was found to have acute diverticulitis complicated by sepsis. Patient admitted to medical floor and initiated on sepsis protocol. Surgery team consulted in ED. Patient denies fever, chills, chest pain, palpitation, productive cough, skin rash, recent ill contacts, ingestion of food/water from new or different sources, or known exposure to COVID-19. No prior admission for review. No medication listed at time of admission for reconciliation. status post laparoscopic converted to open left hemicolectomy with appendectomy for perforated appendicitis with fistulization to sigmoid colon this admission (Dr. Huddleston) 10-12-21 -Exploratory laparotomy, 2. Lysis of adhesions, 3. Takedown of colorectal anastomosis, 4. Temporary closure of abdomen with ABThera wound VAC - Dr. Huddleston - cysto, bilat rpg, bilat external ureteral catheter placement - Dr. Kan nurse at bedside [facility]AP )09-30-21)--normal gu tract RENAL US---NORMAL (10-07-21) abd - clean dressing --brantley draining concentrated urine A/P left ureteral obstruction - trend, may need perc creatinine normal repeat renal us Objective - Constitutional Vitals: Vital Signs - 12hr 10/15/21 10/15/21 10/15/21 01:30 02:00 02:30 Temperature Pulse Rate 100 H 94 H 94 H Pulse Rate [ From Monitor] Respiratory 13 15 17 Rate Blood Pressure 162/101 150/91 152/89 O2 Sat by Pulse 100 100 100 Oximetry 10/15/21 10/15/21 10/15/21 03:08 03:30 04:00 Temperature Pulse Rate 93 H 94 H 96 H Pulse Rate [ 96 H From Monitor] Respiratory 13 12 14 Rate Blood Pressure 141/81 128/82 136/85 O2 Sat by Pulse 100 100 100 Oximetry 10/15/21 10/15/21 10/15/21 04:30 04:53 05:00 Temperature Pulse Rate 105 H 101 H 99 H Pulse Rate [ From Monitor] Respiratory 14 11 L Rate Blood Pressure 154/91 154/91 140/82 O2 Sat by Pulse 100 100 100 Oximetry 10/15/21 10/15/21 10/15/21 05:30 06:00 06:30 Temperature Pulse Rate 99 H 94 H 96 H Pulse Rate [ From Monitor] Respiratory 9 L 11 L 9 L Rate Blood Pressure 124/71 125/70 130/75 O2 Sat by Pulse 100 100 100 Oximetry 10/15/21 10/15/21 10/15/21 07:00 07:30 08:00 Temperature 98.7 F Pulse Rate 109 H 109 H 113 H Pulse Rate [ From Monitor] Respiratory 13 13 13 Rate Blood Pressure 142/89 140/85 151/87 O2 Sat by Pulse 100 100 100 Oximetry 10/15/21 10/15/21 10/15/21 08:25 08:30 09:00 Temperature Pulse Rate 109 H 111 H 111 H Pulse Rate [ From Monitor] Respiratory 13 11 L Rate Blood Pressure 140/81 140/81 131/83 O2 Sat by Pulse 100 100 100 Oximetry 10/15/21 10/15/21 10/15/21 09:30 10:00 10:30 Temperature Pulse Rate 120 H 103 H 111 H Pulse Rate [ From Monitor] Respiratory 13 15 13 Rate Blood Pressure 121/77 126/70 137/78 O2 Sat by Pulse 100 100 100 Oximetry 10/15/21 10/15/21 10/15/21 11:00 11:30 12:00 Temperature 98.5 F Pulse Rate 106 H 102 H 108 H Pulse Rate [ From Monitor] Respiratory 12 13 14 Rate Blood Pressure 130/70 124/74 128/76 O2 Sat by Pulse 100 100 100 Oximetry - Labs CBC & Chem 7: 10/15/21 05:40 10/15/21 05:40 Labs: Abnormal lab results 10/12/21 10/14/21 10/14/21 Range/Units 06:05 15:40 21:21 WBC (4.5-11.0) K/mm3 RBC (3.65-5.03) M/mm3 Hgb (10.1-14.3) gm/dl Hct (30.3-42.9) % RDW (13.2-15.2) % Plt Count (140-440) K/mm3 BUN (7-17) mg/dL Glucose (65-100) mg/dL POC Glucose 140 H 111 H (70-105) mg/dL Calcium (8.4-10.2) mg/dL Crossmatch See Detail 10/14/21 10/15/21 10/15/21 Range/Units 23:46 05:06 05:40 WBC (4.5-11.0) K/mm3 RBC (3.65-5.03) M/mm3 Hgb (10.1-14.3) gm/dl Hct (30.3-42.9) % RDW (13.2-15.2) % Plt Count (140-440) K/mm3 BUN 30 H (7-17) mg/dL Glucose 175 H (65-100) mg/dL POC Glucose 164 H 155 H (70-105) mg/dL Calcium 7.4 L (8.4-10.2) mg/dL Crossmatch 10/15/21 10/15/21 Range/Units 05:40 11:32 WBC 22.7 H (4.5-11.0) K/mm3 RBC 2.94 L (3.65-5.03) M/mm3 Hgb 8.7 L (10.1-14.3) gm/dl Hct 25.8 L (30.3-42.9) % RDW 17.2 H (13.2-15.2) % Plt Count 620 H (140-440) K/mm3 BUN (7-17) mg/dL Glucose (65-100) mg/dL POC Glucose 157 H (70-105) mg/dL Calcium (8.4-10.2) mg/dL Crossmatch Medications & Allergies - Medications Allergies/Adverse Reactions: Allergies No Known Allergies Allergy (Verified 09/24/21 12:21) Home Medications: Home Medications Medication Instructions Recorded Confirmed Last Taken Type No Known Home Medications [No 09/27/21 09/27/21 Unknown History Reported Home Medications] Active Medications: Generic Name Dose Route Start Last Admin Trade Name Freq PRN Reason Stop Dose Admin Acetaminophen 650 mg 10/08/21 21:38 Acetaminophen 325 Mg Tab PO Q6H PRN Pain, Mild (1-3) Albuterol 2.5 mg 09/24/21 18:07 Albuterol 2.5 Mg/3 Ml Nebu IH Q4HRT PRN Shortness Of Breath Dextrose 0 ml 10/03/21 12:37 Dextrose 10% *Hypoglycemia IV PRN PRN Hypoglycemia Diphenhydramine HCl 25 mg 10/04/21 15:14 10/07/21 00:34 Diphenhydramine 50 Mg/Ml Vial IV 25 mg Q6H PRN Administration Itching Famotidine 20 mg 10/08/21 22:00 10/15/21 09:32 Famotidine 20 Mg/2 Ml Inj IV 20 mg BID JAZ Administration Fentanyl 50 mcg 10/08/21 22:10 10/15/21 09:34 Fentanyl 100 Mcg/2 Ml Inj IV 50 mcg Q10MIN PRN Administration ANALGESIA Hydromorphone HCl 0.25 mg 10/08/21 21:38 Hydromorphone 1 Mg/1 Ml Inj IV Q4H PRN Pain, Moderate (4-6) Hydrophilic Ointment 1 applic 10/08/21 21:00 Lip Therapy Vaseline TP Q2HR PRN Dry Lips Metronidazole 500 mg in 100 mls @ 100 mls/hr 10/02/21 16:00 10/15/21 08:30 Flagyl 500 Mg/100 Ml IV 100 mls/hr Q8H JAZ Administration Protocol Propofol 1,000 mg in 100 mls @ 2.694 mls/hr 10/08/21 21:00 10/15/21 09:11 Diprivan 10 Mg/Ml IV 30 mcg/kg/min TITR JAZ 16.164 mls/hr Titration Protocol 5 MCG/KG/MIN Fentanyl Citrate 2,000 mcg in 100 mls @ 4.49 mls/hr 10/08/21 23:00 10/15/21 11:59 Fentanyl Drip Premix IV 3 mcg/kg/hr TITR JAZ 13.47 mls/hr Administration Protocol 1 MCG/KG/HR Vasopressin 20 unit/ Sodium 101 mls @ 9.09 mls/hr 10/08/21 23:00 10/09/21 14:30 Chloride IV 0 units/min TITR JAZ 0 mls/hr Titration Protocol 0.03 UNITS/MIN NORepinephrine/NS 8 MG-250 ML 8 mg in 250 mls @ 3.75 mls/hr 10/08/21 23:45 Norepinephrine/Ns 8 Mg-250 Ml (Double Conc) IV TITRATE [facility] Protocol 2 MCG/MIN Fluconazole 200 mls @ 100 mls/hr 10/13/21 10:00 10/15/21 09:32 Diflucan IV 100 mls/hr Q24HR [facility] Administration Protocol Amino Acids/Electrolytes/Dextrose 1,999.92 mls @ 83.33 mls/hr 10/14/21 20:00 10/14/21 21:38 Tpn Adult IV 10/15/21 19:59 83.33 mls/hr DAILY@[email or web address] [facility] Administration Protocol Amino Acids/Electrolytes/Dextrose 1,999.92 mls @ 83.33 mls/hr 10/15/21 20:00 Tpn Adult IV 10/16/21 19:59 DAILY@1999 [facility] Protocol Insulin Glargine 5 units 10/13/21 10:00 10/15/21 09:32 Insulin Glargine 100 Units/Ml SUB-Q 5 units QDAY [facility] Administration Insulin Human Regular 0 units 10/10/21 00:00 10/15/21 11:59 Insulin Regular, Human 100 Units/1 Ml SUB-Q 3 units Q6HR [facility] Administration Protocol Labetalol HCl 10 mg 10/01/21 08:31 10/14/21 22:32 Labetalol 20 Mg/4 Ml Inj IV 10 mg Q6H PRN Administration Hypertension Multi-Ingred Cream/Lotion/Oil/Oint 1 applic 10/08/21 21:00 Mineral Oil/Petrolatum, White Ophth Oint 3.5 Gm OU Q4HR PRN Dry Eye(s) Naloxone HCl 0.1 mg 10/03/21 14:00 Naloxone 0.4 Mg/1 Ml Inj IV Q2MIN PRN Res Rate </= 8 or 02 SAT < 92% Ondansetron HCl 4 mg 09/24/21 18:07 10/05/21 11:39 Ondansetron 4 Mg/2 Ml Inj IV 4 mg Q8H PRN Administration Nausea And Vomiting Phenol 1 spray 10/02/21 13:00 10/03/21 10:23 Phenol 1.4% 177 Ml Bottle MM 1 spray PRN PRN Administration Sore Throat Scopolamine 1 each 10/04/21 10:00 10/13/21 09:20 Scopolamine Transdermal Patch 72 Hr TD 1 each Q3D JAZ Administration Sodium Chloride 10 ml 09/24/21 22:00 10/15/21 09:32 Sodium Chloride 0.9% 10 Ml Flush Syringe IV 10 ml BID JAZ Administration Sodium Chloride 10 ml 09/24/21 18:07 09/25/21 08:34 Sodium Chloride 0.9% 10 Ml Flush Syringe IV 10 ml PRN PRN Administration LINE FLUSH
--- NOTE | 2021-10-15 14:17 | Progress Note ---
Assessment and Plan Cultures: Blood culture no growth so far Wound culture VRE A/P: 31-year-old female past medical history obesity, nephrolithiasis now with: #Acute sepsis: Present with leukocytosis and tachycardia. Secondary to intra- abdominal infection #Acute hypoxic resp failure: fluid overload more likely, but possible pneumonia. #Pericolonic abscesses with appendiceal rupture and fistulization: Status post washout of abscesses, cultures now with VRE. Status post hemicolectomy and colostomy formation yesterday. #BRYANNA: Renally dose medications #Obesity Recs: -Continue linezolid due to poor response/possible pneumonia. Maximum 14 days -Continue metronidazole. -Continuefluconazole 400mg qday -White count today maybe secondary to surgery yesterday. Thank you for the consult, we will continue to follow. Josefina Perry MD [facility] ([facility]) O: [phone] F: [phone] Subjective Date of service: 10/15/21 Principal diagnosis: Septic shock; AHRF; PNA; BRYANNA; s/p appendectomy; VRE infection; Peritonitis Interval history: Afebrile, white count 22.7. Remains on the vent. Yesterday underwent exploratory laparotomy and colostomy creation Imaging personally reviewed: Chest x-ray: No acute change. Objective - Exam Narrative Exam: Physical Exam: Constitutional: Alert, cooperative. No acute distress Head, Ears, Nose: Normocephalic, atraumatic. External ears, nose normal Eyes: Conjunctivae/corneas clear. No icterus. No ptosis. Neck: Supple, no meningeal signs Oral: dentition fair, no thrush Cardiovascular: S1, S2 normal. Respiratory: Good air entry, clear to auscultation bilaterally GI: Appropriately tender postoperatively, YURIDIA drain in place Musculoskeletal: No pedal edema, no cyanosis. Skin: No rash or abscess Hem/Lymphatic: No palpable cervical or supraclavicular nodes. No lymphangitis Psych: Mood ok. Affect normal Neurological: Awake, alert, oriented. No gross abnormality - Constitutional Vitals: Vital Signs Temp Pulse Resp BP Pulse Ox 98.5 F 96 H 14 122/69 100 10/15/21 12:00 10/15/21 13:00 10/15/21 13:00 10/15/21 13:00 10/15/21 13:00 Temperature -Last 24 Hours Temperature 98.5 F Temperature 98.7 F Temperature 99.7 F Temperature 99.2 F Temperature 98.4 F Temperature 98.0 F - Labs CBC & Chem 7: 10/15/21 05:40 10/15/21 05:40 Labs: Abnormal lab results 10/12/21 10/14/21 10/14/21 Range/Units 06:05 15:40 21:21 WBC (4.5-11.0) K/mm3 RBC (3.65-5.03) M/mm3 Hgb (10.1-14.3) gm/dl Hct (30.3-42.9) % RDW (13.2-15.2) % Plt Count (140-440) K/mm3 BUN (7-17) mg/dL Glucose (65-100) mg/dL POC Glucose 140 H 111 H (70-105) mg/dL Calcium (8.4-10.2) mg/dL Crossmatch See Detail 10/14/21 10/15/21 10/15/21 Range/Units 23:46 05:06 05:40 WBC (4.5-11.0) K/mm3 RBC (3.65-5.03) M/mm3 Hgb (10.1-14.3) gm/dl Hct (30.3-42.9) % RDW (13.2-15.2) % Plt Count (140-440) K/mm3 BUN 30 H (7-17) mg/dL Glucose 175 H (65-100) mg/dL POC Glucose 164 H 155 H (70-105) mg/dL Calcium 7.4 L (8.4-10.2) mg/dL Crossmatch 10/15/21 10/15/21 Range/Units 05:40 11:32 WBC 22.7 H (4.5-11.0) K/mm3 RBC 2.94 L (3.65-5.03) M/mm3 Hgb 8.7 L (10.1-14.3) gm/dl Hct 25.8 L (30.3-42.9) % RDW 17.2 H (13.2-15.2) % Plt Count 620 H (140-440) K/mm3 BUN (7-17) mg/dL Glucose (65-100) mg/dL POC Glucose 157 H (70-105) mg/dL Calcium (8.4-10.2) mg/dL Crossmatch
--- NOTE | 2021-10-15 17:05 | Progress Note ---
Assessment and Plan Assessment and plan: This is a 31-year-old female with obesity and nephrolithiasis admitted with pericolonic abscess secondary to contained perforated diverticulitis, peritonitis complicated by acute blood loss anemia, acute kidney injury and acute hypoxic respiratory failure. Neuro: Sedated -Sedated with propofol and fentanyl -RASS goal 0 to -1 -Avoid delirium -Reorientation as needed -Maintain sleep-wake cycle -Daily SAT as appropriate -Bilateral soft restraints in place for patient safety Cardiac: NAD -Blood pressure monitoring per protocol -s/p vasopressor support with Levophed and vasopressin -MAP goal greater than 65 -Echocardiogram shows normal right ventricular function, LVEF 55 to 60% Respiratory: Acute hypoxic respiratory failure -[facility] consulted, appreciate recommendations -Intubated s/p code met on 10/08 with 7.50 ETT at 24 the lips -A.m. vent settings: Assist-control rate 12, tidal volume 425, PEEP 6, FiO2 30% -hold off weaning vent till abd closure -A.m. 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, diverticulitis with abscess, moderate protein calorie malnutrition, h/o obesity -Surgery consulted, appreciate recommendations -S/p washout of pericolonic abscess on 09/26/2021 -S/p open left hemicolectomy, appendectomy and partial omentectomy on 10/01 -10/09 CT abdomen/pelvis showed a new collection of air within the left midabdomen -Scheduled for CT guided drain placement with IR -IR findings: Fluid collections abutting the colonic anastamosis and drain passed into the colon originally requiring retraction into the fluid collection, left mild to moderate hydronephrosis, 700 ml brown serous fluid from the mid abdominal drain (drain #1), 200 mL brown thick fluid from the left lateral drain (drain #2) -24 hours: -1596 ml -Left lateral abdominal drain minimal drainage -MLA wound vac 1300 mL-serosanguineous -Right abdominal YURIDIA drain with serosanguineous drainage -PPI -TPN -NGT to LIS : Acute kidney injury secondary to vasomotor nephropathy versus contrast induced, Possible Bladder injury -Nephrology and urology consulted, appreciate recommendations -Strict intake and output -Renally dose medications -Avoid nephrotoxic medications -Daily weights -s/p IV Lasix nephrology -Trend BMP -Repeat magnesium -S/p bilateral ureteral stents -10/12 Intra-Op cystoscopy completed and bilateral ureteral stents placed (removed 10/13) -Per urology repeat renal ultrasound ID: Acute sepsis secondary to pericolonic abscess with appendiceal rupture fistulization, peritonitis, VRE and jean marie albicans in wound culture -Infectious disease consulted, appreciate recommendations -COVID 19 PCR negative -S/p drain placement and diagnostic laparotomy on 09/26 -Antibiotic therapy with linezolid, Flagyl, and fluconazole -f/u blood culture -Monitor WBC and temperature curve Endo: NAD -Avoid hypoglycemia -SSI -Accu-Cheks q6 -Long-acting insulin, titrate as needed Heme: Acute blood loss anemia, elevated D-dimer, hematuria, leukocytosis, thrombocytosis -Patient had hematuria after ureteral injury sustained from surgical procedures -Urology consulted, appreciate recommendation -10/09 CTA chest with no evidence of PE. Findings suggesting multifocal pneumonia vs pulmonary edema -Bilateral lower extremity Doppler ultrasound shows no sonographic evidence of DVT however shows subcutaneous edema in lower extremities -Trend CBC -Transfuse hemoglobin less than 7 -S/p 6 units PRBC -Monitor for signs of bleeding -SCDs to BLE while in bed -Heparin subq The high probability of a clinically significant, sudden or life threatening deterioration of the [multi] system(s) required my full and direct attention, intervention and personal management. The aggregate critical care time was [60] minutes. This time is in addition to time spent performing reported procedures but includes the following: [x] Data Review and interpretation [x] Patient assessment and monitoring of vital signs [x] Documentation [x] Medication orders and management Disposition Plan: ICU Total Time Spent with Patient (Minutes): 60 History Interval history: This is a 31-year-old female with obesity and nephrolithiasis admitted with complaints of abdominal pain, lower back pain, nausea no with episodes of vomiting over the past dayon 09/24. Patient underwent a CT scan of the abdomen and pelvis and was found to have acute diverticulitis complicated by sepsis and was admitted to the medical floor initiated sepsis protocol. Surgery team was consulted in the emergency department. ICU Course to Date: 10/09: Intubated and sedated, RASS -1 to -2. Recent CXR noted with worsen bilateral opacities with persistent leukocytosis, elevated lactic, and now on 2 pressors. Patient remains afebrile, and already on IV Abx per ID. Will swab patient for COVID. Given recent surgery orders placed for CTA chest, CT Abd/plevis. And also BLE dopplers due to elevated D-Dimer. Renal function is improving, additional IVF to flush out kidney post contrast, Nephrology is also following. Continue TPN and NGT to LIS. 10/10: COVID PCR negative. CTA chest and Abd/plevis noted. No evidence of PE. Patient received X1 dose of 20mg IV lasix per Nephro for pulmonary edema, this am CXR with some improvement, renal function is also improving. Wean vent setting as tolerated per CCM. Plan for possible CT guided drainage placement in IR tomorrow. Continue TPN and NGT to LIS. 10/11: Patient with anemia, 1 unit PRBC, scheduled for CT-guided drain image of air pocket. Will place on CPAP on return. Slightly worsening renal function but nephrology is on the case. 10/12: Taken to OR today for diverting ileostomy, given 3 units PRBC yesterday and appropriate response. Surgical culture grew yeast and ID added added fluconazole. 10/13: Hypomagnesemia repleted, renal function improving. Patient remains sedated with fentanyl and propofol. Updated sister and father at bedside. Ureteral stents removed at bedside. Plan to to take patient to the OR tomorrow for second look, abdominal washout, colostomy creation on hold for abdominal closure by surgery. We will hold p.m. dose of heparin. 10/14: Plan to take patient back to OR today, prophylactic anticougulation on hold. 2 units prbc on hold for surgery. Plan to close abd and colostomy creation. Vent weaning on hold till abd closure 10/15: Renal function remains stable, leukocytosis increased, remains sedated on propofol and fentanyl and on mechanical ventilation. Plan is to hold SBT until the weekend. Repeat renal ultrasound pending per urology. Hospitalist Physical - Constitutional Vitals: Temp Pulse Resp BP Pulse Ox 98.5 F 92 H 11 L 127/70 100 10/15/21 12:00 10/15/21 16:00 10/15/21 15:00 10/15/21 16:00 10/15/21 16:00 General appearance: Present: no acute distress, well-nourished, other (Intubated and Sedated) - EENT Eyes: Present: PERRL, EOM intact ENT: hearing intact, clear oral mucosa, dentition normal - Neck Neck: Present: normal ROM - Respiratory Respiratory effort: normal Respiratory: bilateral: CTA - Cardiovascular Rhythm: regular Heart Sounds: Present: S1 & S2. Absent: systolic murmur, diastolic murmur - Extremities Extremities: no ischemia, pulses intact, pulses symmetrical, normal temperature, normal color Extremity abnormal: edema Peripheral Pulses: within normal limits - Abdominal General gastrointestinal: soft, tender, absent bowel sounds, other (MLA with wound VAC with serosanguineous drainage, bilateral abdominal drains with serosanguineous drainage, NGT to LIS) - Integumentary Integumentary: Present: warm, dry - Psychiatric Psychiatric: cooperative - Neurologic Neurologic: CNII-XII intact, moves all extremities - Allied Health Allied health notes reviewed: nursing, RT, social work Results - Labs CBC & Chem 7: 10/15/21 05:40 10/15/21 05:40 Labs: Laboratory Last Values WBC 22.7 K/mm3 (4.5-11.0) H 10/15/21 05:40 RBC 2.94 M/mm3 (3.65-5.03) L 10/15/21 05:40 Hgb 8.7 gm/dl (10.1-14.3) L 10/15/21 05:40 Hct 25.8 % (30.3-42.9) L 10/15/21 05:40 MCV 88 fl (79-97) 10/15/21 05:40 MCH 29 pg (28-32) 10/15/21 05:40 MCHC 34 % (30-34) 10/15/21 05:40 RDW 17.2 % (13.2-15.2) H 10/15/21 05:40 Plt Count 620 K/mm3 (140-440) H 10/15/21 05:40 [place] % (Auto) 5.9 % (0.0-7.3) 09/28/21 04:55 Eos % (Auto) 0.4 % (0.0-4.3) 09/28/21 04:55 [place] # (Auto) 0.9 K/mm3 (0.0-0.8) H 09/28/21 04:55 Eos # (Auto) 0.1 K/mm3 (0.0-0.4) 09/28/21 04:55 Baso # (Auto) 0.0 K/mm3 (0.0-0.1) 09/28/21 04:55 Add Manual Diff Complete 10/09/21 05:31 Total Counted 100 10/09/21 05:31 Seg Neutrophils % Storage And Backup Administrator 10/03/21 04:55 Seg Neuts % (Manual) 88.0 % (40.0-70.0) H 10/09/21 05:31 Band Neutrophils % 0 % 10/09/21 05:31 Lymphocytes % (Manual) 3.0 % (13.4-35.0) L 10/09/21 05:31 Reactive Lymphs % (Man) 1.0 % 10/09/21 05:31 Monocytes % (Manual) 6.0 % (0.0-7.3) 10/09/21 05:31 Eosinophils % (Manual) 2.0 % (0.0-4.3) 10/09/21 05:31 Basophils % (Manual) 0 % (0.0-1.8) 10/09/21 05:31 Metamyelocytes % 0 % 10/09/21 05:31 Myelocytes % 0 % 10/09/21 05:31 Promyelocytes % 0 % 10/09/21 05:31 Blast Cells % 0 % 10/09/21 05:31 Nucleated RBC % Not Reportable 10/09/21 05:31 Seg Neutrophils # 14.0 K/mm3 (1.8-7.7) H 09/28/21 04:55 Seg Neutrophils # Man 17.9 K/mm3 (1.8-7.7) H 10/09/21 05:31 Band Neutrophils # 0.0 K/mm3 10/09/21 05:31 Lymphocytes # (Manual) 0.6 K/mm3 (1.2-5.4) L 10/09/21 05:31 Abs React Lymphs (Man) 0.2 K/mm3 10/09/21 05:31 Monocytes # (Manual) 1.2 K/mm3 (0.0-0.8) H 10/09/21 05:31 Eosinophils # (Manual) 0.4 K/mm3 (0.0-0.4) 10/09/21 05:31 Basophils # (Manual) 0.0 K/mm3 (0.0-0.1) 10/09/21 05:31 Metamyelocytes # 0.0 K/mm3 10/09/21 05:31 Myelocytes # 0.0 K/mm3 10/09/21 05:31 Promyelocytes # 0.0 K/mm3 10/09/21 05:31 Blast Cells # 0.0 K/mm3 10/09/21 05:31 Pathologist Review 09/24/21 14:58 WBC Morphology Not Reportable 10/09/21 05:31 Hypersegmented Neuts Not Reportable 10/09/21 05:31 Hyposegmented Neuts Not Reportable 10/09/21 05:31 Hypogranular Neuts Not Reportable 10/09/21 05:31 Smudge Cells Not Reportable 10/09/21 05:31 Toxic Granulation Not Reportable 10/09/21 05:31 Toxic Vacuolation Not Reportable 10/09/21 05:31 Dohle Bodies Not Reportable 10/09/21 05:31 Pelger-Huet Anomaly Not Reportable 10/09/21 05:31 Marlene Rods Not Reportable 10/09/21 05:31 Platelet Estimate Consistent w auto 10/09/21 05:31 Clumped Platelets Not Reportable 10/09/21 05:31 Plt Clumps, EDTA Not Reportable 10/09/21 05:31 Large Platelets Not Reportable 10/09/21 05:31 Giant Platelets Not Reportable 10/09/21 05:31 Platelet Satelliting Not Reportable 10/09/21 05:31 Plt Morphology Comment Not Reportable 10/09/21 05:31 RBC Morphology Not Reportable 10/09/21 05:31 Dimorphic RBCs Not Reportable 10/09/21 05:31 Polychromasia Not Reportable 10/09/21 05:31 Hypochromasia Not Reportable 10/09/21 05:31 Poikilocytosis Not Reportable 10/09/21 05:31 Anisocytosis 1+ 10/09/21 05:31 Microcytosis Not Reportable 10/09/21 05:31 Macrocytosis Not Reportable 10/09/21 05:31 Spherocytes Not Reportable 10/09/21 05:31 Pappenheimer Bodies Not Reportable 10/09/21 05:31 Sickle Cells Not Reportable 10/09/21 05:31 Target Cells Not Reportable 10/09/21 05:31 Tear Drop Cells Not Reportable 10/09/21 05:31 Ovalocytes Not Reportable 10/09/21 05:31 Helmet Cells Not Reportable 10/09/21 05:31 [place] Bodies Not Reportable 10/09/21 05:31 [place] Rings Not Reportable 10/09/21 05:31 [place] Cells Not Reportable 10/09/21 05:31 Bite Cells Not Reportable 10/09/21 05:31 Crenated Cell Not Reportable 10/09/21 05:31 Elliptocytes Not Reportable 10/09/21 05:31 Acanthocytes (Spur) Not Reportable 10/09/21 05:31 Rouleaux Not Reportable 10/09/21 05:31 Hemoglobin C Crystals Not Reportable 10/09/21 05:31 Schistocytes Not Reportable 10/09/21 05:31 Malaria parasites Not Reportable 10/09/21 05:31 Flaco Bodies Not Reportable 10/09/21 05:31 Hem Pathologist Commnt No 10/09/21 05:31 PT 19.0 Sec. (12.2-14.9) H 10/14/21 04:05 INR 1.41 (0.87-1.13) H 10/14/21 04:05 APTT 33.9 Sec. (24.2-36.6) 10/14/21 04:05 D-Dimer > 54655 ng/mlDDU (0-234) H 10/09/21 08:45 ABG pH 7.342 pH Units (7.350-7.450) L 10/14/21 10:45 ABG pCO2 49.5 mm Hg 10/14/21 10:45 ABG pO2 96.0 mm Hg (80.0-90.0) H 10/14/21 10:45 ABG HCO3 26.2 mmol/L (20.0-26.0) H 10/14/21 10:45 ABG O2 Saturation 97.2 % (95.0-99.0) 10/14/21 10:45 ABG O2 Content 8.4 (0.0-44) 10/14/21 10:45 ABG Base Excess 0.4 mmol/L (-2.0-3.0) 10/14/21 10:45 ABG Hemoglobin 6.1 gm/dl (12.0-16.0) L 10/14/21 10:45 ABG Carboxyhemoglobin 1.8 % (0.0-5.0) 10/14/21 10:45 ABG Methemoglobin 0.5 % (0.0-1.5) 10/14/21 10:45 Oxyhemoglobin 94.9 % (95.0-99.0) L 10/14/21 10:45 FiO2 30 % 10/14/21 10:45 Sodium 139 mmol/L (137-145) 10/15/21 05:40 Potassium 4.8 mmol/L (3.6-5.0) 10/15/21 05:40 Chloride 106.4 mmol/L (98-107) 10/15/21 05:40 Carbon Dioxide 24 mmol/L (22-30) 10/15/21 05:40 Anion Gap 13 mmol/L 10/15/21 05:40 BUN 30 mg/dL (7-17) H 10/15/21 05:40 Creatinine 1.0 mg/dL (0.6-1.2) 10/15/21 05:40 Estimated GFR > 60 ml/min 10/15/21 05:40 BUN/Creatinine Ratio 30 % 10/15/21 05:40 Glucose 175 mg/dL (65-100) H 10/15/21 05:40 POC Glucose 157 mg/dL (70-105) H 10/15/21 11:32 Lactic Acid 1.80 mmol/L (0.7-2.0) 10/10/21 04:10 Calcium 7.4 mg/dL (8.4-10.2) L 10/15/21 05:40 Phosphorus 3.50 mg/dL (2.5-4.5) 10/15/21 05:40 Magnesium 1.90 mg/dL (1.7-2.3) 10/15/21 05:40 Ferritin 751.9 ng/mL (10.0-200.0) H 10/09/21 05:31 Total Bilirubin 0.30 mg/dL (0.1-1.2) 10/09/21 05:31 AST 26 units/L (5-40) 10/09/21 05:31 ALT 11 units/L (7-56) 10/09/21 05:31 Alkaline Phosphatase 63 units/L (35-129) 10/09/21 05:31 Lactate Dehydrogenase 472 units/L (91-180) H 10/09/21 05:31 Total Creatine Kinase 45 units/L (30-135) 10/13/21 04:05 C-Reactive Protein 15.90 mg/dL (0.00-1.30) H 10/09/21 05:31 Total Protein 5.8 g/dL (6.3-8.2) L 10/09/21 05:31 Albumin 2.3 g/dL (3.9-5) L 10/09/21 05:31 Albumin/Globulin Ratio 0.7 % 10/09/21 05:31 Triglycerides 80 mg/dL (2-149) 10/14/21 04:05 Procalcitonin 12.98 ng/mL (<0.15) 10/09/21 05:31 Urine Color Yellow (Yellow) 09/24/21 14:49 Urine Turbidity Slightly-cloudy (Clear) 09/24/21 14:49 Urine pH 6.0 (5.0-7.0) 09/24/21 14:49 Ur Specific [place] 1.017 (1.003-1.030) 09/24/21 14:49 Urine Protein 30 mg/dl mg/dL (Negative) 09/24/21 14:49 Urine Glucose (UA) Neg mg/dL (Negative) 09/24/21 14:49 Urine Ketones Neg mg/dL (Negative) 09/24/21 14:49 Urine Blood Neg (Negative) 09/24/21 14:49 Urine Nitrite Neg (Negative) 09/24/21 14:49 Ur Reducing Substances Not Reportable 09/24/21 14:49 Urine Bilirubin Neg (Negative) 09/24/21 14:49 Urine Ictotest Not Reportable 09/24/21 14:49 Urine Urobilinogen < 2.0 mg/dL (<2.0) 09/24/21 14:49 Ur Leukocyte Esterase Neg (Negative) 09/24/21 14:49 Urine WBC (Auto) 4.0 /HPF (0.0-6.0) 09/24/21 14:49 Urine RBC (Auto) 2.0 /HPF (0.0-6.0) 09/24/21 14:49 U Epithel Cells (Auto) 18.0 /HPF (0-13.0) H 09/24/21 14:49 Urine Mucus Few /HPF 09/24/21 14:49 Urine HCG, Qual Negative (Negative) 09/24/21 14:49 Coronavirus (PCR) Negative (Negative) 10/09/21 10:15 Blood Type A POSITIVE 10/12/21 06:05 Antibody Screen Negative 10/12/21 06:05 Crossmatch See Detail 10/12/21 06:05 Microbiology: Microbiology 10/11/21 14:52 Abdomen Surgical Culture - Preliminary Jean Marie Albicans Staphylococcus Aureus Doss/IV: Voiding Method Indwelling Catheter Active Medications - Current Medications Current Medications: Generic Name Dose Route Start Last Admin Trade Name Freq PRN Reason Stop Dose Admin Acetaminophen 650 mg 10/08/21 21:38 Acetaminophen 325 Mg Tab PO Q6H PRN Pain, Mild (1-3) Albuterol 2.5 mg 09/24/21 18:07 Albuterol 2.5 Mg/3 Ml Nebu IH Q4HRT PRN Shortness Of Breath Dextrose 0 ml 10/03/21 12:37 Dextrose 10% *Hypoglycemia IV PRN PRN Hypoglycemia Diphenhydramine HCl 25 mg 10/04/21 15:14 10/07/21 00:34 Diphenhydramine 50 Mg/Ml Vial IV 25 mg Q6H PRN Administration Itching Famotidine 20 mg 10/08/21 22:00 10/15/21 09:32 Famotidine 20 Mg/2 Ml Inj IV 20 mg BID JAZ Administration Fentanyl 50 mcg 10/08/21 22:10 10/15/21 09:34 Fentanyl 100 Mcg/2 Ml Inj IV 50 mcg Q10MIN PRN Administration ANALGESIA Hydromorphone HCl 0.25 mg 10/08/21 21:38 Hydromorphone 1 Mg/1 Ml Inj IV Q4H PRN Pain, Moderate (4-6) Hydrophilic Ointment 1 applic 10/08/21 21:00 Lip Therapy Vaseline TP Q2HR PRN Dry Lips Metronidazole 500 mg in 100 mls @ 100 mls/hr 10/02/21 16:00 10/15/21 16:20 Flagyl 500 Mg/100 Ml IV 100 mls/hr Q8H JAZ Administration Protocol Propofol 1,000 mg in 100 mls @ 2.694 mls/hr 10/08/21 21:00 10/15/21 14:40 Diprivan 10 Mg/Ml IV 30 mcg/kg/min TITR JAZ 16.164 mls/hr Administration Protocol 5 MCG/KG/MIN Fentanyl Citrate 2,000 mcg in 100 mls @ 4.49 mls/hr 10/08/21 23:00 10/15/21 11:59 Fentanyl Drip Premix IV 3 mcg/kg/hr TITR JAZ 13.47 mls/hr Administration Protocol 1 MCG/KG/HR Vasopressin 20 unit/ Sodium 101 mls @ 9.09 mls/hr 10/08/21 23:00 10/09/21 14:30 Chloride IV 0 units/min TITR JAZ 0 mls/hr Titration Protocol 0.03 UNITS/MIN NORepinephrine/NS 8 MG-250 ML 8 mg in 250 mls @ 3.75 mls/hr 10/08/21 23:45 Norepinephrine/Ns 8 Mg-250 Ml (Double Conc) IV TITRATE JAZ Protocol 2 MCG/MIN Fluconazole 200 mls @ 100 mls/hr 10/13/21 10:00 10/15/21 09:32 Diflucan IV 100 mls/hr Q24HR [facility] Administration Protocol Amino Acids/Electrolytes/Dextrose 1,999.92 mls @ 83.33 mls/hr 10/14/21 20:00 10/14/21 21:38 Tpn Adult IV 10/15/21 19:59 83.33 mls/hr [email or web address] [facility] Administration Protocol Amino Acids/Electrolytes/Dextrose 1,999.92 mls @ 83.33 mls/hr 10/15/21 20:00 Tpn Adult IV 10/16/21 19:59 [email or web address]@[email or web address] [facility] Protocol Insulin Glargine 5 units 10/13/21 10:00 10/15/21 09:32 Insulin Glargine 100 Units/Ml SUB-Q 5 units QDAY JAZ Administration Insulin Human Regular 0 units 10/10/21 00:00 10/15/21 11:59 Insulin Regular, Human 100 Units/1 Ml SUB-Q 3 units Q6HR [facility] Administration Protocol Labetalol HCl 10 mg 10/01/21 08:31 10/14/21 22:32 Labetalol 20 Mg/4 Ml Inj IV 10 mg Q6H PRN Administration Hypertension Multi-Ingred Cream/Lotion/Oil/Oint 1 applic 10/08/21 21:00 Mineral Oil/Petrolatum, White Ophth Oint 3.5 Gm OU Q4HR PRN Dry Eye(s) Naloxone HCl 0.1 mg 10/03/21 14:00 Naloxone 0.4 Mg/1 Ml Inj IV Q2MIN PRN Res Rate </= 8 or 02 SAT < 92% Ondansetron HCl 4 mg 09/24/21 18:07 10/05/21 11:39 Ondansetron 4 Mg/2 Ml Inj IV 4 mg Q8H PRN Administration Nausea And Vomiting Phenol 1 spray 10/02/21 13:00 10/03/21 10:23 Phenol 1.4% 177 Ml Bottle MM 1 spray PRN PRN Administration Sore Throat Scopolamine 1 each 10/04/21 10:00 10/13/21 09:20 Scopolamine Transdermal Patch 72 Hr TD 1 each Q3D JAZ Administration Sodium Chloride 10 ml 09/24/21 22:00 10/15/21 09:32 Sodium Chloride 0.9% 10 Ml Flush Syringe IV 10 ml BID JAZ Administration Sodium Chloride 10 ml 09/24/21 18:07 09/25/21 08:34 Sodium Chloride 0.9% 10 Ml Flush Syringe IV 10 ml PRN PRN Administration LINE FLUSH Nutrition/Malnutrition Assess - Dietary Evaluation Nutrition/Malnutrition Findings: Nutrition Notes Start: 09/25/21 15:31 Freq: Status: Active Protocol: Document 10/15/21 10:11 BRYAN (Rec: 10/15/21 10:19 [facility] [id number]) Nutrition Notes Initial or Follow up Reassessment Current Diagnosis Sepsis,Respiratory Failure Other Pertinent Diagnosis s/p appendectomy, s/p exp lap with colostomy, anemia Current Diet CPN at 83.33 ml/hr Labs/Tests BUN 30 BG 175 Pertinent Medications Propofol at 16.164ml/hr ( provides 427 kcal) Height 5 ft 7 in Weight 107.2 kg [place] Body Weight (kg) 61.36 BMI 37.0 Weight Status Obese Subjective/Other Information Day 13 CPN. Pt remains on vent support. Percent of energy/protein needs met: 75% energy 81% pro (meeting 100% energy needs if propofol included) Burn Absent Trauma Absent #1 Nutrition Diagnosis Altered GI function Diagnosis Progress(for reassessment Continues documentation) Is patient on ventilator? Yes Is Patient Ambulatory and/or Out of Bed No REE-([place]-confined to bed) 2179.332 Kcal/Kg value to use for calculation 16 Approximate Energy Requirements Using 1715 kcal/Kg Calculation Used for Recommendations Kcal/kg Additional Notes Pro needs 2g/kg IBW: 123g/day Fluid needs 1ml/kcal Nutrition Intervention Nutrition Support: Continue CPN at 83.33ml/hr: MVI, 5.5% amino acids, 40mEq K . Osmolality: 1370. Kcal 1,290 Protein (gm) 110 Carbohydrates (gm) 250 Fat (gm) 0 Fluid (mL) 2,000 Fiber (gm) 0 Goal #1 Provide at least 75% of energy /protein needs through Parenteral Feeding during LOS. Follow-Up By: 10/16/21 Additional Comments Labs in am: CMP, Mg, Phos F/U: vent status, propofol
[2021-10-15] MEDS ORDERED: TOTAL PARENTERAL NUTRITION 1,999.92 ML IV SCH (20:00)
[2021-10-16] MEDS: metroNIDAZOLE/NS 500 MG/100 ML 500 MG/100 ML BAG IV SCH ×3 (00:20→15:39)
[2021-10-16] MEDS: INSULIN REGULAR, HUMAN 100 UNITS/1 ML SUB-Q SCH ×4 (00:22→18:23)
[2021-10-16] MEDS: fentaNYL DRIP Premix 2,000 MCG/100 ML BAG IV SCH ×5 (02:13→19:59)
[2021-10-16 05:57] LABS: Hematocrit 24.7 % (30.3-42.9); Mean Corpuscular HGB Conc 32 % (30-34); Mean Corpuscular Volume 88 fl (79-97); Platelet Count 543 K/mm3 (140-440); Red Cell Distribution Width 17.4 % (13.2-15.2)
[2021-10-16 07:29] LABS: Alanine Aminotransferase 8 units/L (7-56); Albumin 1.9 g/dL (3.9-5); BUN/Creatinine Ratio 31; Blood Urea Nitrogen 31 mg/dL (7-17); Hemolysis Index 4
--- NOTE | 2021-10-16 09:33 | Progress Note ---
Assessment and Plan - Patient Problems (1) Acute renal failure Current Visit: Yes Status: Acute Plan to address problem: Overall renal function has stabilized over the last couple of days. Will monitor closely. Avoid all nephrotoxins and maintain mean arterial pressures above 65 mmHg. She did undergo cystoscopy with bilateral retropyelogram along w ith bilateral external ureteral stent placement with adequate urine output noted in [place] postoperatively. We will continue to follow closely. (2) Acute respiratory failure with hypoxia Current Visit: Yes Status: Acute Plan to address problem: Patient intubated at this time. Ventilator management per ICU team. CT chest reviewed and concerning for worsening bilateral opacities secondary to pneumonia versus fluid overload and pulmonary edema. patient with excellent urien output currently on Fio2 30 %. no need for further lasix at this time. (3) Sepsis Current Visit: Yes Status: Acute (4) Appendicitis with perforation Current Visit: Yes Status: Acute Plan to address problem: Status post left hemicolectomy with appendectomy Complicated by CT evidence of extraluminal gas in a contained collection,s/p CT guided drainage. Now with concerns of dehiscence of surgical suture lines in colon,s/p ex-lap and diverting ileostomy. (5) Hypokalemia Current Visit: Yes Status: Acute Plan to address problem: resolved (6) Anemia Current Visit: Yes Status: Acute (7) Hypoalbuminemia due to protein-calorie malnutrition Current Visit: Yes Status: Acute Plan to address problem: on TPN for now Subjective Date of service: 10/16/21 Principal diagnosis: Septic shock; AHRF; PNA; BRYANNA; s/p appendectomy; VRE infection; Peritonitis Interval history: patient remains intubated, sedated Objective - Vital Signs Vital signs: Vital Signs - 12hr 10/15/21 10/15/21 10/15/21 22:00 22:30 23:00 Temperature Pulse Rate 93 H 94 H 91 H Pulse Rate [ From Monitor] Respiratory 13 14 13 Rate Blood Pressure 120/60 126/65 125/64 O2 Sat by Pulse 100 100 100 Oximetry 10/15/21 10/15/21 10/15/21 23:18 23:30 23:47 Temperature 98.9 F Pulse Rate 93 H 115 H Pulse Rate [ From Monitor] Respiratory 14 10 L Rate Blood Pressure 125/64 160/83 O2 Sat by Pulse 100 100 Oximetry 10/16/21 10/16/21 10/16/21 00:00 00:30 01:00 Temperature Pulse Rate 88 86 88 Pulse Rate [ 96 H From Monitor] Respiratory 14 15 14 Rate Blood Pressure 122/69 124/69 122/69 O2 Sat by Pulse 100 96 99 Oximetry 10/16/21 10/16/21 10/16/21 01:30 02:00 02:30 Temperature Pulse Rate 92 H 85 80 Pulse Rate [ From Monitor] Respiratory 16 15 12 Rate Blood Pressure 131/72 127/70 128/69 O2 Sat by Pulse 100 100 100 Oximetry 10/16/21 10/16/21 10/16/21 03:00 03:30 03:41 Temperature 98.6 F Pulse Rate 89 87 Pulse Rate [ From Monitor] Respiratory 15 14 Rate Blood Pressure 142/82 131/79 O2 Sat by Pulse 100 99 Oximetry 10/16/21 10/16/21 10/16/21 04:00 04:24 04:30 Temperature 98.6 F Pulse Rate 90 96 H 90 Pulse Rate [ 96 H From Monitor] Respiratory 13 13 Rate Blood Pressure 130/81 130/81 138/81 O2 Sat by Pulse 98 100 100 Oximetry 10/16/21 10/16/21 10/16/21 05:00 05:30 06:00 Temperature Pulse Rate 86 107 H 96 H Pulse Rate [ From Monitor] Respiratory 15 16 12 Rate Blood Pressure 135/81 143/88 161/91 O2 Sat by Pulse 100 100 100 Oximetry 10/16/21 10/16/21 10/16/21 06:30 07:00 07:20 Temperature Pulse Rate 97 H 86 88 Pulse Rate [ From Monitor] Respiratory 12 13 Rate Blood Pressure 145/88 130/71 124/71 O2 Sat by Pulse 100 100 100 Oximetry 10/16/21 10/16/21 10/16/21 07:30 08:00 08:30 Temperature 97.4 F L Pulse Rate 88 90 86 Pulse Rate [ From Monitor] Respiratory 13 15 15 Rate Blood Pressure 122/70 124/71 121/70 O2 Sat by Pulse 100 100 100 Oximetry - General Appearance General appearance: sedated on ventilator, intubated EENT: ATNC, PERRL, mucous membranes moist Neck: no JVD Respiratory: Present: Clear to Ascultation Cardiology: regular, S1S2 Gastrointestinal: normoactive bowel sounds Integumentary: no rash, other (+ edema b/l LE ) Neurologic: no focal deficit, alert and oriented x3, strength 5/5, CN 3-12 intact - Lab 10/16/21 04:00 10/16/21 04:00 Most recent lab results ABG pH 7.342 pH Units (7.350-7.450) L 10/14/21 10:45 ABG pCO2 49.5 mm Hg 10/14/21 10:45 ABG pO2 96.0 mm Hg (80.0-90.0) H 10/14/21 10:45 ABG HCO3 26.2 mmol/L (20.0-26.0) H 10/14/21 10:45 ABG O2 Saturation 97.2 % (95.0-99.0) 10/14/21 10:45 Calcium 8.0 mg/dL (8.4-10.2) L 10/16/21 04:00 Phosphorus 2.80 mg/dL (2.5-4.5) 10/16/21 04:00 Magnesium 1.90 mg/dL (1.7-2.3) 10/16/21 04:00 Medications & Allergies - Medications Allergies/Adverse Reactions: Allergies No Known Allergies Allergy (Verified 09/24/21 12:21) Home Medications: Home Medications Medication Instructions Recorded Confirmed Last Taken Type No Known Home Medications [No 09/27/21 09/27/21 Unknown History Reported Home Medications] Active Medications: Generic Name Dose Route Start Last Admin Trade Name Freq PRN Reason Stop Dose Admin Acetaminophen 650 mg 10/08/21 21:38 Acetaminophen 325 Mg Tab PO Q6H PRN Pain, Mild (1-3) Albuterol 2.5 mg 09/24/21 18:07 Albuterol 2.5 Mg/3 Ml Nebu Q4HRT PRN Shortness Of Breath Dextrose 0 ml 10/03/21 12:37 Dextrose 10% *Hypoglycemia IV PRN PRN Hypoglycemia Diphenhydramine HCl 25 mg 10/04/21 15:14 10/07/21 00:34 Diphenhydramine 50 Mg/Ml Vial IV 25 mg Q6H PRN Administration Itching Famotidine 20 mg 10/08/21 22:00 10/15/21 22:04 Famotidine 20 Mg/2 Ml Inj IV 20 mg BID JAZ Administration Fentanyl 50 mcg 10/08/21 22:10 10/15/21 09:34 Fentanyl 100 Mcg/2 Ml Inj IV 50 mcg Q10MIN PRN Administration ANALGESIA Heparin Sodium (Porcine) 5,000 unit 10/16/21 10:00 Heparin 5,000 Unit/1 Ml Vial SUB-Q Q12HR JAZ Hydromorphone HCl 0.25 mg 10/08/21 21:38 Hydromorphone 1 Mg/1 Ml Inj IV Q4H PRN Pain, Moderate (4-6) Hydrophilic Ointment 1 applic 10/08/21 21:00 Lip Therapy Vaseline TP Q2HR PRN Dry Lips Metronidazole 500 mg in 100 mls @ 100 mls/hr 10/02/21 16:00 10/16/21 00:20 Flagyl 500 Mg/100 Ml IV 100 mls/hr Q8H JAZ Administration Protocol Propofol 1,000 mg in 100 mls @ 2.694 mls/hr 10/08/21 21:00 10/16/21 06:31 Diprivan 10 Mg/Ml IV 40 mcg/kg/min TITR JAZ 21.552 mls/hr Administration Protocol 5 MCG/KG/MIN Fentanyl Citrate 2,000 mcg in 100 mls @ 4.49 mls/hr 10/08/21 23:00 10/16/21 06:30 Fentanyl Drip Premix IV 4 mcg/kg/hr TITR JAZ 17.96 mls/hr Administration Protocol 1 MCG/KG/HR Vasopressin 20 unit/ Sodium 101 mls @ 9.09 mls/hr 10/08/21 23:00 10/09/21 14:30 Chloride IV 0 units/min TITR JAZ 0 mls/hr Titration Protocol 0.03 UNITS/MIN NORepinephrine/NS 8 MG-250 ML 8 mg in 250 mls @ 3.75 mls/hr 10/08/21 23:45 Norepinephrine/Ns 8 Mg-250 Ml (Double Conc) IV TITRATE JAZ Protocol 2 MCG/MIN Fluconazole 200 mls @ 100 mls/hr 10/13/21 10:00 10/15/21 09:32 Diflucan IV 100 mls/hr Q24HR JAZ Administration Protocol Amino Acids/Electrolytes/Dextrose 1,999.92 mls @ 83.33 mls/hr 10/15/21 20:00 10/15/21 20:01 Tpn Adult IV 10/16/21 19:59 83.33 mls/hr DAILY@1999 [facility] Administration Protocol Insulin Glargine 5 units 10/13/21 10:00 10/15/21 09:32 Insulin Glargine 100 Units/Ml SUB-Q 5 units QDAY JAZ Administration Insulin Human Regular 0 units 10/10/21 00:00 10/16/21 05:24 Insulin Regular, Human 100 Units/1 Ml SUB-Q Not Given Q6HR [facility] Protocol Labetalol HCl 10 mg 10/01/21 08:31 10/14/21 22:32 Labetalol 20 Mg/4 Ml Inj IV 10 mg Q6H PRN Administration Hypertension Multi-Ingred Cream/Lotion/Oil/Oint 1 applic 10/08/21 21:00 Mineral Oil/Petrolatum, White Ophth Oint 3.5 Gm OU Q4HR PRN Dry Eye(s) Naloxone HCl 0.1 mg 10/03/21 14:00 Naloxone 0.4 Mg/1 Ml Inj IV Q2MIN PRN Res Rate </= 8 or 02 SAT < 92% Ondansetron HCl 4 mg 09/24/21 18:07 10/05/21 11:39 Ondansetron 4 Mg/2 Ml Inj IV 4 mg Q8H PRN Administration Nausea And Vomiting Phenol 1 spray 10/02/21 13:00 10/03/21 10:23 Phenol 1.4% 177 Ml Bottle MM 1 spray PRN PRN Administration Sore Throat Scopolamine 1 each 10/04/21 10:00 10/13/21 09:20 Scopolamine Transdermal Patch 72 Hr TD 1 each Q3D JAZ Administration Sodium Chloride 10 ml 09/24/21 22:00 10/15/21 22:04 Sodium Chloride 0.9% 10 Ml Flush Syringe IV 10 ml BID JAZ Administration Sodium Chloride 10 ml 09/24/21 18:07 09/25/21 08:34 Sodium Chloride 0.9% 10 Ml Flush Syringe IV 10 ml PRN PRN Administration LINE FLUSH
[2021-10-16] MEDS: FLUCONAZOLE 400 MG 200 ML IV SCH (10:14)
[2021-10-16] MEDS: FAMOTIDINE 20 MG/2 ML INJ IV SCH ×2 (10:14→21:14)
[2021-10-16] MEDS: HEPARIN 5,000 UNIT/1 ML VIAL SUB-Q SCH ×2 (10:14→21:14)
[2021-10-16] MEDS: SCOPOLAMINE TRANSDERMAL PATCH 72 HR TD SCH (10:14)
[2021-10-16] MEDS: INSULIN GLARGINE 100 UNITS/ML SUB-Q SCH (10:15)
--- NOTE | 2021-10-16 10:30 | Progress Note ---
Assessment and Plan - Patient Problems (1) Acute renal failure Current Visit: Yes Status: Resolved Plan to address problem: Creatnine is stable and normal. Renal ultrasound pending--not urgent. Subjective Date of service: 10/16/21 Principal diagnosis: Septic shock; AHRF; PNA; BRYANNA; s/p appendectomy; VRE infection; Peritonitis Interval history: No acute urologic changes. Doss catheter in place draining clear urine. Objective - Constitutional Vitals: Vital Signs - 12hr 10/15/21 10/15/21 10/15/21 22:30 23:00 23:18 Temperature Pulse Rate 94 H 91 H 93 H Pulse Rate [ From Monitor] Respiratory 14 13 14 Rate Blood Pressure 126/65 125/64 125/64 O2 Sat by Pulse 100 100 100 Oximetry 10/15/21 10/15/21 10/16/21 23:30 23:47 00:00 Temperature 98.9 F Pulse Rate 115 H 88 Pulse Rate [ 96 H From Monitor] Respiratory 10 L 14 Rate Blood Pressure 160/83 122/69 O2 Sat by Pulse 100 100 Oximetry 10/16/21 10/16/21 10/16/21 00:30 01:00 01:30 Temperature Pulse Rate 86 88 92 H Pulse Rate [ From Monitor] Respiratory 15 14 16 Rate Blood Pressure 124/69 122/69 131/72 O2 Sat by Pulse 96 99 100 Oximetry 10/16/21 10/16/21 10/16/21 02:00 02:30 03:00 Temperature Pulse Rate 85 80 89 Pulse Rate [ From Monitor] Respiratory 15 12 15 Rate Blood Pressure 127/70 128/69 142/82 O2 Sat by Pulse 100 100 100 Oximetry 10/16/21 10/16/21 10/16/21 03:30 03:41 04:00 Temperature 98.6 F 98.6 F Pulse Rate 87 90 Pulse Rate [ 96 H From Monitor] Respiratory 14 13 Rate Blood Pressure 131/79 130/81 O2 Sat by Pulse 99 98 Oximetry 10/16/21 10/16/21 10/16/21 04:24 04:30 05:00 Temperature Pulse Rate 96 H 90 86 Pulse Rate [ From Monitor] Respiratory 13 15 Rate Blood Pressure 130/81 138/81 135/81 O2 Sat by Pulse 100 100 100 Oximetry 10/16/21 10/16/21 10/16/21 05:30 06:00 06:30 Temperature Pulse Rate 107 H 96 H 97 H Pulse Rate [ From Monitor] Respiratory 16 12 12 Rate Blood Pressure 143/88 161/91 145/88 O2 Sat by Pulse 100 100 100 Oximetry 10/16/21 10/16/21 10/16/21 07:00 07:20 07:30 Temperature Pulse Rate 86 88 88 Pulse Rate [ From Monitor] Respiratory 13 13 Rate Blood Pressure 130/71 124/71 122/70 O2 Sat by Pulse 100 100 100 Oximetry 10/16/21 10/16/21 08:00 08:30 Temperature 97.4 F L Pulse Rate 90 86 Pulse Rate [ From Monitor] Respiratory 15 15 Rate Blood Pressure 124/71 121/70 O2 Sat by Pulse 100 100 Oximetry General appearance: Present: other (intubated sedated) - Neck Neck: normal ROM - Respiratory Respiratory effort: other (intubated) Extremities: no ischemia - Labs CBC & Chem 7: 10/16/21 04:00 10/16/21 04:00 Labs: Abnormal lab results 10/15/21 10/15/21 10/15/21 Range/Units 11:32 17:23 23:35 WBC (4.5-11.0) K/mm3 RBC (3.65-5.03) M/mm3 Hgb (10.1-14.3) gm/dl Hct (30.3-42.9) % RDW (13.2-15.2) % Plt Count (140-440) K/mm3 BUN (7-17) mg/dL Glucose (65-100) mg/dL POC Glucose 157 H 136 H 143 H (70-105) mg/dL Calcium (8.4-10.2) mg/dL Total Protein (6.3-8.2) g/dL Albumin (3.9-5) g/dL 10/16/21 10/16/21 10/16/21 Range/Units 04:00 04:00 05:08 WBC 18.0 H (4.5-11.0) K/mm3 RBC 2.80 L (3.65-5.03) M/mm3 Hgb 8.0 L (10.1-14.3) gm/dl Hct 24.7 L (30.3-42.9) % RDW 17.4 H (13.2-15.2) % Plt Count 543 H (140-440) K/mm3 BUN 31 H (7-17) mg/dL Glucose 153 H (65-100) mg/dL POC Glucose 149 H (70-105) mg/dL Calcium 8.0 L (8.4-10.2) mg/dL Total Protein 5.5 L (6.3-8.2) g/dL Albumin 1.9 L (3.9-5) g/dL Medications & Allergies - Medications Allergies/Adverse Reactions: Allergies No Known Allergies Allergy (Verified 09/24/21 12:21) Home Medications: Home Medications Medication Instructions Recorded Confirmed Last Taken Type No Known Home Medications [No 09/27/21 09/27/21 Unknown History Reported Home Medications] Active Medications: Generic Name Dose Route Start Last Admin Trade Name Freq PRN Reason Stop Dose Admin Acetaminophen 650 mg 10/08/21 21:38 Acetaminophen 325 Mg Tab PO Q6H PRN Pain, Mild (1-3) Albuterol 2.5 mg 09/24/21 18:07 Albuterol 2.5 Mg/3 Ml Nebu IH Q4HRT PRN Shortness Of Breath Dextrose 0 ml 10/03/21 12:37 Dextrose 10% *Hypoglycemia IV PRN PRN Hypoglycemia Diphenhydramine HCl 25 mg 10/04/21 15:14 10/07/21 00:34 Diphenhydramine 50 Mg/Ml Vial IV 25 mg Q6H PRN Administration Itching Famotidine 20 mg 10/08/21 22:00 10/15/21 22:04 Famotidine 20 Mg/2 Ml Inj IV 20 mg BID JAZ Administration Fentanyl 50 mcg 10/08/21 22:10 10/15/21 09:34 Fentanyl 100 Mcg/2 Ml Inj IV 50 mcg Q10MIN PRN Administration ANALGESIA Heparin Sodium (Porcine) 5,000 unit 10/16/21 10:00 10/16/21 10:14 Heparin 5,000 Unit/1 Ml Vial SUB-Q 5,000 unit Q12HR JAZ Administration Hydromorphone HCl 0.25 mg 10/08/21 21:38 Hydromorphone 1 Mg/1 Ml Inj IV Q4H PRN Pain, Moderate (4-6) Hydrophilic Ointment 1 applic 10/08/21 21:00 Lip Therapy Vaseline TP Q2HR PRN Dry Lips Metronidazole 500 mg in 100 mls @ 100 mls/hr 10/02/21 16:00 10/16/21 10:13 Flagyl 500 Mg/100 Ml IV 100 mls/hr Q8H [facility] Administration Protocol Propofol 1,000 mg in 100 mls @ 2.694 mls/hr 10/08/21 21:00 10/16/21 06:31 Diprivan 10 Mg/Ml IV 40 mcg/kg/min TITR JAZ 21.552 mls/hr Administration Protocol 5 MCG/KG/MIN Fentanyl Citrate 2,000 mcg in 100 mls @ 4.49 mls/hr 10/08/21 23:00 10/16/21 06:30 Fentanyl Drip Premix IV 4 mcg/kg/hr TITR JAZ 17.96 mls/hr Administration Protocol 1 MCG/KG/HR Vasopressin 20 unit/ Sodium 101 mls @ 9.09 mls/hr 10/08/21 23:00 10/09/21 14:30 Chloride IV 0 units/min TITR JAZ 0 mls/hr Titration Protocol 0.03 UNITS/MIN NORepinephrine/NS 8 MG-250 ML 8 mg in 250 mls @ 3.75 mls/hr 10/08/21 23:45 Norepinephrine/Ns 8 Mg-250 Ml (Double Conc) IV TITRATE JAZ Protocol 2 MCG/MIN Fluconazole 200 mls @ 100 mls/hr 10/13/21 10:00 10/16/21 10:14 Diflucan IV 100 mls/hr Q24HR [facility] Administration Protocol Amino Acids/Electrolytes/Dextrose 1,999.92 mls @ 83.33 mls/hr 10/15/21 20:00 10/15/21 20:01 Tpn Adult IV 10/16/21 19:59 83.33 mls/hr DAILY@1999 [facility] Administration Protocol Insulin Glargine 5 units 10/13/21 10:00 10/16/21 10:15 Insulin Glargine 100 Units/Ml SUB-Q 5 units QDAY JAZ Administration Insulin Human Regular 0 units 10/10/21 00:00 10/16/21 05:24 Insulin Regular, Human 100 Units/1 Ml SUB-Q Not Given Q6HR [facility] Protocol Labetalol HCl 10 mg 10/01/21 08:31 10/14/21 22:32 Labetalol 20 Mg/4 Ml Inj IV 10 mg Q6H PRN Administration Hypertension Multi-Ingred Cream/Lotion/Oil/Oint 1 applic 10/08/21 21:00 Mineral Oil/Petrolatum, White Ophth Oint 3.5 Gm OU Q4HR PRN Dry Eye(s) Naloxone HCl 0.1 mg 10/03/21 14:00 Naloxone 0.4 Mg/1 Ml Inj IV Q2MIN PRN Res Rate </= 8 or 02 SAT < 92% Ondansetron HCl 4 mg 09/24/21 18:07 10/05/21 11:39 Ondansetron 4 Mg/2 Ml Inj IV 4 mg Q8H PRN Administration Nausea And Vomiting Phenol 1 spray 10/02/21 13:00 10/03/21 10:23 Phenol 1.4% 177 Ml Bottle MM 1 spray PRN PRN Administration Sore Throat Scopolamine 1 each 10/04/21 10:00 10/16/21 10:14 Scopolamine Transdermal Patch 72 Hr TD 1 each Q3D JAZ Administration Sodium Chloride 10 ml 09/24/21 22:00 10/16/21 10:14 Sodium Chloride 0.9% 10 Ml Flush Syringe IV 10 ml BID JAZ Administration Sodium Chloride 10 ml 09/24/21 18:07 09/25/21 08:34 Sodium Chloride 0.9% 10 Ml Flush Syringe IV 10 ml PRN PRN Administration LINE FLUSH
--- NOTE | 2021-10-16 11:37 | Progress Note ---
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 Open left hemicolectomy and partial omentectomy Peritonitis Leukocytosis Diverticulitis with absces Acute renal failure Acute blood loss anemia Gross Hematuria - continue TPN - keep sedated RASS -2 to -3 over weekend re: abdominal wound dehiscence issues - wound care per RN / WCN under surgeons direction - continue care as below otherwise; - daily SAT and SBT assessment as tolerated - continue to wean supplemental oxygen for target O2 sat's > 90% acutely - VAP bundle addressed - continue lung protective strategies - continue bronchodilators with pulmonary hygiene per RT - wean per pulmonary driven protocols otherwise - avoid nephrotoxins, renally dose all medications - continue accuchecks with glycemic control per SSI (While critically ill target blood glucose of 140-180 mg/dL; avoid hypoglycemia) - sedation prn for target RASS -2 to -3 - continue to avoid benzodiazepine's, reduce the possibility of delirium - AB's per ID rec's (Diflucan & Flagyl now) - Maintenance of sleep-wake cycle, avoid delirium - continue enteral nutritional support at goal rate as tolerated - G.I. & VTE prophylaxis - PT/OT/ROM exercises - continue mobility protocols for pressure ulcer prophylaxis - Monitor hemodynamics closely - continue other care per attending / other consultants - discharge planning ongoing concurrently COVID SPECIFIC INTERVENTIONS - COVID-19 PCR negative .... Re-evaluate in am & prn CONDITION: CRITICAL PROGNOSIS: GUARDED CODE STATUS: FULL CODE The high probability of a clinically significant, sudden or life-threatening deterioration of the [respiratory, cardiovascular & neurologic] system(s) required my full and direct attention, intervention and personal management. The aggregate critical care time was [35] minutes without overlap. 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 s/p appendectomy; VRE infection; Open left hemicolectomy and partial omentectomy; Peritonitis; Diverticulitis with abscess;' BRYANNA; ABLA; Gross Hematuria Seen and examined at bedside; 24hour events reviewed; nursing and respiratory care staff consulted; no adverse overnight events reported to me; resting in bed; remains on MVS and tolerating well; well sedated; no emesis or overt aspiration; afebrile Objective Vital Signs - 12hr 10/15/21 10/16/21 10/16/21 23:47 00:00 00:30 Temperature 98.9 F Pulse Rate 88 86 Pulse Rate [ 96 H From Monitor] Respiratory 14 15 Rate Blood Pressure 122/69 124/69 O2 Sat by Pulse 100 96 Oximetry 10/16/21 10/16/21 10/16/21 01:00 01:30 02:00 Temperature Pulse Rate 88 92 H 85 Pulse Rate [ From Monitor] Respiratory 14 16 15 Rate Blood Pressure 122/69 131/72 127/70 O2 Sat by Pulse 99 100 100 Oximetry 10/16/21 10/16/21 10/16/21 02:30 03:00 03:30 Temperature Pulse Rate 80 89 87 Pulse Rate [ From Monitor] Respiratory 12 15 14 Rate Blood Pressure 128/69 142/82 131/79 O2 Sat by Pulse 100 100 99 Oximetry 10/16/21 10/16/21 10/16/21 03:41 04:00 04:24 Temperature 98.6 F 98.6 F Pulse Rate 90 96 H Pulse Rate [ 96 H From Monitor] Respiratory 13 Rate Blood Pressure 130/81 130/81 O2 Sat by Pulse 98 100 Oximetry 10/16/21 10/16/21 10/16/21 04:30 05:00 05:30 Temperature Pulse Rate 90 86 107 H Pulse Rate [ From Monitor] Respiratory 13 15 16 Rate Blood Pressure 138/81 135/81 143/88 O2 Sat by Pulse 100 100 100 Oximetry 10/16/21 10/16/21 10/16/21 06:00 06:30 07:00 Temperature Pulse Rate 96 H 97 H 86 Pulse Rate [ From Monitor] Respiratory 12 12 13 Rate Blood Pressure 161/91 145/88 130/71 O2 Sat by Pulse 100 100 100 Oximetry 10/16/21 10/16/21 10/16/21 07:20 07:30 08:00 Temperature 97.4 F L Pulse Rate 88 88 90 Pulse Rate [ From Monitor] Respiratory 13 15 Rate Blood Pressure 124/71 122/70 124/71 O2 Sat by Pulse 100 100 100 Oximetry 10/16/21 10/16/21 10/16/21 08:30 09:00 09:30 Temperature Pulse Rate 86 85 84 Pulse Rate [ From Monitor] Respiratory 15 12 12 Rate Blood Pressure 121/70 115/65 116/63 O2 Sat by Pulse 100 100 100 Oximetry 10/16/21 10/16/21 10:00 10:30 Temperature Pulse Rate 89 97 H Pulse Rate [ From Monitor] Respiratory 12 11 L Rate Blood Pressure 119/72 111/81 O2 Sat by Pulse 100 100 Oximetry Constitutional: no acute distress, other (young obese female without increased respiratory effort at rest on MVS) Eyes: non-icteric ENT: oropharynx moist, other (orally intubated ETT 7.5cm @24 at the lip) Neck: supple, other (RIJ CVL) Effort: mildly labored Ascultation: Bilateral: diminished breath sounds, rhonchi Percussion: Bilateral: not dull Cardiovascular: regular rate and rhythm, other (S1,S2) Gastrointestinal: hypoactive bowel sounds, soft, tender (mild), other (YURIDIA drains, anterior abdominal dressings, colostomy) Integumentary: normal, other (post-op changes) Extremities: no cyanosis, pulses normal, no ischemia or petechiae, edema Neurologic: non-focal exam, pupils equal and round, CN II-XII normal, motor strength normal and Psychiatric: other (sedated) CBC and BMP: 10/17/21 04:00 10/17/21 04:00 ABG, PT/INR, D-dimer: ABG ABG pH 7.342 pH Units (7.350-7.450) L 10/14/21 10:45 ABG pCO2 49.5 mm Hg 10/14/21 10:45 ABG pO2 96.0 mm Hg (80.0-90.0) H 10/14/21 10:45 ABG O2 Saturation 97.2 % (95.0-99.0) 10/14/21 10:45 PT/INR, D-dimer PT 19.0 Sec. (12.2-14.9) H 10/14/21 04:05 INR 1.41 (0.87-1.13) H 10/14/21 04:05 D-Dimer > 10234 ng/mlDDU (0-234) H 10/09/21 08:45 Abnormal lab findings: Abnormal Labs 09/24/21 09/24/21 09/24/21 14:49 14:58 14:58 WBC 32.4 H RBC Hgb Hct MCH RDW Plt Count 535 H [place] # (Auto) Seg Neutrophils % Seg Neuts % (Manual) 82.0 H Lymphocytes % (Manual) 2.0 L Monocytes % (Manual) Nucleated RBC % Seg Neutrophils # Seg Neutrophils # Man 26.6 H Lymphocytes # (Manual) 0.6 L Monocytes # (Manual) 1.6 H PT INR D-Dimer ABG pH ABG pO2 ABG HCO3 ABG O2 Saturation ABG Base Excess ABG Hemoglobin Oxyhemoglobin Sodium 134 L Potassium 3.5 L Chloride 97.6 L Carbon Dioxide BUN Creatinine Glucose 119 H POC Glucose Lactic Acid Calcium Phosphorus Magnesium Ferritin Lactate Dehydrogenase Total Creatine Kinase C-Reactive Protein Total Protein 6.1 L Albumin 3.3 L U Epithel Cells (Auto) 18.0 H Crossmatch 09/25/21 09/25/21 09/26/21 05:47 05:47 04:20 WBC 25.4 H 23.6 H RBC 3.54 L Hgb Hct MCH RDW Plt Count 466 H 486 H [place] # (Auto) Seg Neutrophils % Seg Neuts % (Manual) 93.0 H 86.0 H Lymphocytes % (Manual) 4.0 L 3.0 L Monocytes % (Manual) Nucleated RBC % Seg Neutrophils # Seg Neutrophils # Man 23.6 H 20.3 H Lymphocytes # (Manual) 1.0 L 0.7 L Monocytes # (Manual) 0.9 H PT INR D-Dimer ABG pH ABG pO2 ABG HCO3 ABG O2 Saturation ABG Base Excess ABG Hemoglobin Oxyhemoglobin Sodium 136 L Potassium 3.0 L Chloride Carbon Dioxide 21 L BUN Creatinine Glucose POC Glucose Lactic Acid Calcium 7.8 L Phosphorus Magnesium Ferritin Lactate Dehydrogenase Total Creatine Kinase C-Reactive Protein Total Protein Albumin U Epithel Cells (Auto) Crossmatch 09/26/21 09/27/21 09/27/21 04:20 08:28 08:28 WBC 20.6 H RBC 3.42 L Hgb 9.9 L Hct 29.5 L D MCH RDW Plt Count [place] # (Auto) Seg Neutrophils % Seg Neuts % (Manual) 94.1 H Lymphocytes % (Manual) 1.0 L Monocytes % (Manual) Nucleated RBC % Seg Neutrophils # Seg Neutrophils # Man 19.4 H Lymphocytes # (Manual) 0.2 L Monocytes # (Manual) PT INR D-Dimer ABG pH ABG pO2 ABG HCO3 ABG O2 Saturation ABG Base Excess ABG Hemoglobin Oxyhemoglobin Sodium Potassium 3.2 L Chloride Carbon Dioxide 20 L BUN Creatinine Glucose 137 H POC Glucose Lactic Acid Calcium 8.3 L 8.2 L Phosphorus Magnesium Ferritin Lactate Dehydrogenase Total Creatine Kinase C-Reactive Protein Total Protein Albumin U Epithel Cells (Auto) Crossmatch 09/28/21 09/28/21 09/29/21 04:55 15:35 07:02 WBC 15.1 H 16.5 H RBC 3.34 L 3.20 L Hgb 9.3 L 9.1 L Hct 28.7 L 27.3 L MCH RDW 15.3 H Plt Count 444 H 469 H [place] # (Auto) 0.9 H Seg Neutrophils % 89.3 H Seg Neuts % (Manual) 88.0 H 80.0 H Lymphocytes % (Manual) 9.0 L 8.0 L Monocytes % (Manual) Nucleated RBC % Seg Neutrophils # 14.0 H Seg Neutrophils # Man 13.3 H 13.2 H Lymphocytes # (Manual) Monocytes # (Manual) PT INR D-Dimer ABG pH ABG pO2 ABG HCO3 ABG O2 Saturation ABG Base Excess ABG Hemoglobin Oxyhemoglobin Sodium Potassium 3.3 L Chloride 109.4 H Carbon Dioxide 20 L BUN Creatinine 0.5 L Glucose POC Glucose Lactic Acid Calcium 7.9 L Phosphorus Magnesium Ferritin Lactate Dehydrogenase Total Creatine Kinase C-Reactive Protein Total Protein Albumin U Epithel Cells (Auto) Crossmatch 09/30/21 09/30/21 10/01/21 05:40 05:40 07:49 WBC 17.4 H 17.9 H RBC 3.37 L 3.32 L Hgb 9.2 L 9.3 L Hct 28.4 L 28.3 L MCH 27 L RDW 15.4 H 15.5 H Plt Count 530 H 604 H [place] # (Auto) Seg Neutrophils % Seg Neuts % (Manual) 91.0 H 72.0 H Lymphocytes % (Manual) 9.0 L 1.0 L Monocytes % (Manual) 8.0 H Nucleated RBC % 1.0 H Seg Neutrophils # Seg Neutrophils # Man 15.8 H 12.9 H Lymphocytes # (Manual) 0.2 L Monocytes # (Manual) 1.4 H PT INR D-Dimer ABG pH ABG pO2 ABG HCO3 ABG O2 Saturation ABG Base Excess ABG Hemoglobin Oxyhemoglobin Sodium Potassium 3.5 L Chloride Carbon Dioxide 21 L BUN Creatinine 0.5 L Glucose POC Glucose Lactic Acid Calcium 8.0 L Phosphorus Magnesium Ferritin Lactate Dehydrogenase Total Creatine Kinase C-Reactive Protein Total Protein Albumin U Epithel Cells (Auto) Crossmatch 10/01/21 10/01/21 10/02/21 07:49 10:45 05:41 WBC 23.2 H RBC 2.90 L Hgb 7.9 L Hct 24.8 L MCH 27 L RDW 15.3 H Plt Count 621 H [place] # (Auto) Seg Neutrophils % Seg Neuts % (Manual) 88.0 H Lymphocytes % (Manual) 2.0 L Monocytes % (Manual) Nucleated RBC % Seg Neutrophils # Seg Neutrophils # Man 20.4 H Lymphocytes # (Manual) 0.5 L Monocytes # (Manual) 1.4 H PT INR D-Dimer ABG pH ABG pO2 ABG HCO3 ABG O2 Saturation ABG Base Excess ABG Hemoglobin Oxyhemoglobin Sodium Potassium Chloride Carbon Dioxide 20 L BUN Creatinine 0.5 L Glucose POC Glucose Lactic Acid Calcium 7.6 L Phosphorus Magnesium Ferritin Lactate Dehydrogenase Total Creatine Kinase C-Reactive Protein Total Protein Albumin U Epithel Cells (Auto) Crossmatch See Detail 10/02/21 10/02/21 10/02/21 05:41 07:47 11:10 WBC RBC Hgb Hct MCH RDW Plt Count [place] # (Auto) Seg Neutrophils % Seg Neuts % (Manual) Lymphocytes % (Manual) Monocytes % (Manual) Nucleated RBC % Seg Neutrophils # Seg Neutrophils # Man Lymphocytes # (Manual) Monocytes # (Manual) PT INR D-Dimer ABG pH ABG pO2 ABG HCO3 ABG O2 Saturation ABG Base Excess ABG Hemoglobin Oxyhemoglobin Sodium Potassium Chloride Carbon Dioxide BUN Creatinine Glucose 130 H POC Glucose 145 H 120 H Lactic Acid Calcium 6.9 L Phosphorus Magnesium Ferritin Lactate Dehydrogenase Total Creatine Kinase C-Reactive Protein Total Protein Albumin U Epithel Cells (Auto) Crossmatch 10/02/21 10/03/21 10/03/21 16:14 04:55 04:55 WBC 26.1 H RBC 2.31 L Hgb 6.3 L Hct 19.8 L* MCH RDW 15.9 H Plt Count 598 H [place] # (Auto) Seg Neutrophils % Seg Neuts % (Manual) 82.0 H Lymphocytes % (Manual) 1.0 L Monocytes % (Manual) 10.0 H Nucleated RBC % Seg Neutrophils # Seg Neutrophils # Man 21.4 H Lymphocytes # (Manual) 0.3 L Monocytes # (Manual) 2.6 H PT INR D-Dimer ABG pH ABG pO2 ABG HCO3 ABG O2 Saturation ABG Base Excess ABG Hemoglobin Oxyhemoglobin Sodium Potassium Chloride Carbon Dioxide BUN 22 H Creatinine 1.7 H D Glucose 145 H POC Glucose 109 H Lactic Acid Calcium 6.4 L Phosphorus Magnesium 2.40 H Ferritin Lactate Dehydrogenase Total Creatine Kinase C-Reactive Protein Total Protein 4.2 L Albumin 1.6 L U Epithel Cells (Auto) Crossmatch 10/03/21 10/03/21 10/03/21 07:15 11:49 17:06 WBC RBC Hgb Hct MCH RDW Plt Count [place] # (Auto) Seg Neutrophils % Seg Neuts % (Manual) Lymphocytes % (Manual) Monocytes % (Manual) Nucleated RBC % Seg Neutrophils # Seg Neutrophils # Man Lymphocytes # (Manual) Monocytes # (Manual) PT INR D-Dimer ABG pH ABG pO2 ABG HCO3 ABG O2 Saturation ABG Base Excess ABG Hemoglobin Oxyhemoglobin Sodium Potassium Chloride Carbon Dioxide BUN Creatinine Glucose POC Glucose 162 H 171 H 174 H Lactic Acid Calcium Phosphorus Magnesium Ferritin Lactate Dehydrogenase Total Creatine Kinase C-Reactive Protein Total Protein Albumin U Epithel Cells (Auto) Crossmatch 10/03/21 10/04/21 10/04/21 23:31 04:44 04:44 WBC 26.4 H RBC 2.33 L Hgb 6.6 L Hct 19.4 L* MCH RDW 16.1 H Plt Count 602 H [place] # (Auto) Seg Neutrophils % Seg Neuts % (Manual) 80.0 H Lymphocytes % (Manual) 5.0 L Monocytes % (Manual) Nucleated RBC % Seg Neutrophils # Seg Neutrophils # Man 21.1 H Lymphocytes # (Manual) Monocytes # (Manual) 1.8 H PT INR D-Dimer ABG pH ABG pO2 ABG HCO3 ABG O2 Saturation ABG Base Excess ABG Hemoglobin Oxyhemoglobin Sodium 135 L Potassium 3.4 L Chloride Carbon Dioxide 21 L BUN 28 H Creatinine 2.0 H Glucose 171 H POC Glucose 179 H Lactic Acid Calcium 6.7 L Phosphorus 1.30 L D Magnesium 2.40 H Ferritin Lactate Dehydrogenase Total Creatine Kinase C-Reactive Protein Total Protein Albumin U Epithel Cells (Auto) Crossmatch 10/04/21 10/04/21 10/04/21 05:25 12:01 13:30 WBC RBC Hgb Hct MCH RDW Plt Count [place] # (Auto) Seg Neutrophils % Seg Neuts % (Manual) Lymphocytes % (Manual) Monocytes % (Manual) Nucleated RBC % Seg Neutrophils # Seg Neutrophils # Man Lymphocytes # (Manual) Monocytes # (Manual) PT INR D-Dimer ABG pH ABG pO2 ABG HCO3 ABG O2 Saturation ABG Base Excess ABG Hemoglobin Oxyhemoglobin Sodium Potassium Chloride Carbon Dioxide BUN Creatinine Glucose POC Glucose 174 H 172 H Lactic Acid Calcium Phosphorus Magnesium Ferritin Lactate Dehydrogenase Total Creatine Kinase C-Reactive Protein Total Protein Albumin U Epithel Cells (Auto) Crossmatch See Detail 10/04/21 10/04/21 10/04/21 16:47 20:28 22:23 WBC RBC Hgb 8.5 L Hct 25.1 L MCH RDW Plt Count [place] # (Auto) Seg Neutrophils % Seg Neuts % (Manual) Lymphocytes % (Manual) Monocytes % (Manual) Nucleated RBC % Seg Neutrophils # Seg Neutrophils # Man Lymphocytes # (Manual) Monocytes # (Manual) PT INR D-Dimer ABG pH ABG pO2 ABG HCO3 ABG O2 Saturation ABG Base Excess ABG Hemoglobin Oxyhemoglobin Sodium Potassium Chloride Carbon Dioxide BUN Creatinine Glucose POC Glucose 135 H 152 H Lactic Acid Calcium Phosphorus Magnesium Ferritin Lactate Dehydrogenase Total Creatine Kinase C-Reactive Protein Total Protein Albumin U Epithel Cells (Auto) Crossmatch 10/05/21 10/05/21 10/05/21 04:40 04:40 04:40 WBC 24.7 H RBC 3.02 L Hgb 8.4 L Hct 25.5 L MCH RDW 16.2 H Plt Count 644 H [place] # (Auto) Seg Neutrophils % Seg Neuts % (Manual) 91.0 H Lymphocytes % (Manual) 7.0 L Monocytes % (Manual) Nucleated RBC % Seg Neutrophils # Seg Neutrophils # Man 22.5 H Lymphocytes # (Manual) Monocytes # (Manual) PT 17.8 H INR 1.31 H D-Dimer ABG pH ABG pO2 ABG HCO3 ABG O2 Saturation ABG Base Excess ABG Hemoglobin Oxyhemoglobin Sodium 135 L Potassium Chloride Carbon Dioxide BUN 29 H Creatinine 2.1 H Glucose 156 H POC Glucose Lactic Acid Calcium 7.6 L Phosphorus 1.90 L D Magnesium Ferritin Lactate Dehydrogenase Total Creatine Kinase C-Reactive Protein Total Protein 5.2 L D Albumin 1.8 L U Epithel Cells (Auto) Crossmatch 10/05/21 10/05/21 10/05/21 05:08 18:17 23:37 WBC RBC Hgb Hct MCH RDW Plt Count [place] # (Auto) Seg Neutrophils % Seg Neuts % (Manual) Lymphocytes % (Manual) Monocytes % (Manual) Nucleated RBC % Seg Neutrophils # Seg Neutrophils # Man Lymphocytes # (Manual) Monocytes # (Manual) PT INR D-Dimer ABG pH ABG pO2 ABG HCO3 ABG O2 Saturation ABG Base Excess ABG Hemoglobin Oxyhemoglobin Sodium Potassium Chloride Carbon Dioxide BUN Creatinine Glucose POC Glucose 156 H 119 H 130 H Lactic Acid Calcium Phosphorus Magnesium Ferritin Lactate Dehydrogenase Total Creatine Kinase C-Reactive Protein Total Protein Albumin U Epithel Cells (Auto) Crossmatch 10/06/21 10/06/21 10/06/21 04:27 05:27 05:27 WBC 23.4 H RBC 2.84 L Hgb 7.8 L Hct 23.9 L MCH RDW 16.2 H Plt Count 712 H [place] # (Auto) Seg Neutrophils % Seg Neuts % (Manual) Lymphocytes % (Manual) Monocytes % (Manual) Nucleated RBC % Seg Neutrophils # Seg Neutrophils # Man Lymphocytes # (Manual) Monocytes # (Manual) PT INR D-Dimer ABG pH ABG pO2 ABG HCO3 ABG O2 Saturation ABG Base Excess ABG Hemoglobin Oxyhemoglobin Sodium 134 L Potassium Chloride Carbon Dioxide 20 L BUN 28 H Creatinine 1.9 H Glucose 132 H POC Glucose 132 H Lactic Acid Calcium 7.8 L Phosphorus Magnesium Ferritin Lactate Dehydrogenase Total Creatine Kinase 242 H C-Reactive Protein Total Protein Albumin U Epithel Cells (Auto) Crossmatch 10/06/21 10/06/21 10/06/21 16:40 20:50 23:39 WBC RBC Hgb Hct MCH RDW Plt Count [place] # (Auto) Seg Neutrophils % Seg Neuts % (Manual) Lymphocytes % (Manual) Monocytes % (Manual) Nucleated RBC % Seg Neutrophils # Seg Neutrophils # Man Lymphocytes # (Manual) Monocytes # (Manual) PT INR D-Dimer ABG pH ABG pO2 ABG HCO3 ABG O2 Saturation ABG Base Excess ABG Hemoglobin Oxyhemoglobin Sodium Potassium Chloride Carbon Dioxide BUN Creatinine Glucose POC Glucose 133 H 116 H 132 H Lactic Acid Calcium Phosphorus Magnesium Ferritin Lactate Dehydrogenase Total Creatine Kinase C-Reactive Protein Total Protein Albumin U Epithel Cells (Auto) Crossmatch 10/07/21 10/07/21 10/07/21 05:09 05:13 09:43 WBC 22.3 H RBC 2.81 L Hgb 7.8 L Hct 24.0 L MCH RDW 16.5 H Plt Count 733 H [place] # (Auto) Seg Neutrophils % Seg Neuts % (Manual) 85.0 H Lymphocytes % (Manual) 1.0 L Monocytes % (Manual) Nucleated RBC % Seg Neutrophils # Seg Neutrophils # Man 19.0 H Lymphocytes # (Manual) 0.2 L Monocytes # (Manual) 1.6 H PT INR D-Dimer ABG pH ABG pO2 ABG HCO3 ABG O2 Saturation ABG Base Excess ABG Hemoglobin Oxyhemoglobin Sodium 136 L Potassium Chloride Carbon Dioxide 20 L BUN 29 H Creatinine 1.9 H Glucose 140 H POC Glucose 139 H Lactic Acid Calcium 7.6 L Phosphorus Magnesium Ferritin Lactate Dehydrogenase Total Creatine Kinase C-Reactive Protein Total Protein Albumin U Epithel Cells (Auto) Crossmatch 10/07/21 10/07/21 10/08/21 11:38 17:44 00:20 WBC RBC Hgb Hct MCH RDW Plt Count [place] # (Auto) Seg Neutrophils % Seg Neuts % (Manual) Lymphocytes % (Manual) Monocytes % (Manual) Nucleated RBC % Seg Neutrophils # Seg Neutrophils # Man Lymphocytes # (Manual) Monocytes # (Manual) PT INR D-Dimer ABG pH ABG pO2 ABG HCO3 ABG O2 Saturation ABG Base Excess ABG Hemoglobin Oxyhemoglobin Sodium Potassium Chloride Carbon Dioxide BUN Creatinine Glucose POC Glucose 126 H 113 H 129 H Lactic Acid Calcium Phosphorus Magnesium Ferritin Lactate Dehydrogenase Total Creatine Kinase C-Reactive Protein Total Protein Albumin U Epithel Cells (Auto) Crossmatch 10/08/21 10/08/21 10/08/21 05:26 05:26 05:29 WBC 21.8 H RBC 2.84 L Hgb 7.8 L Hct 24.1 L MCH 27 L RDW 16.5 H Plt Count 789 H [place] # (Auto) Seg Neutrophils % Seg Neuts % (Manual) Lymphocytes % (Manual) Monocytes % (Manual) Nucleated RBC % Seg Neutrophils # Seg Neutrophils # Man Lymphocytes # (Manual) Monocytes # (Manual) PT INR D-Dimer ABG pH ABG pO2 ABG HCO3 ABG O2 Saturation ABG Base Excess ABG Hemoglobin Oxyhemoglobin Sodium 136 L Potassium Chloride Carbon Dioxide 20 L BUN 31 H Creatinine 1.7 H Glucose 134 H POC Glucose 123 H Lactic Acid Calcium 7.9 L Phosphorus 4.60 H D Magnesium Ferritin Lactate Dehydrogenase Total Creatine Kinase C-Reactive Protein Total Protein Albumin U Epithel Cells (Auto) Crossmatch 10/08/21 10/08/21 10/08/21 11:53 17:07 20:08 WBC RBC Hgb Hct MCH RDW Plt Count [place] # (Auto) Seg Neutrophils % Seg Neuts % (Manual) Lymphocytes % (Manual) Monocytes % (Manual) Nucleated RBC % Seg Neutrophils # Seg Neutrophils # Man Lymphocytes # (Manual) Monocytes # (Manual) PT INR D-Dimer ABG pH 7.308 L ABG pO2 40.2 L ABG HCO3 15.7 L ABG O2 Saturation 68 L ABG Base Excess -9.6 L ABG Hemoglobin 9.7 L Oxyhemoglobin 67.8 L Sodium Potassium Chloride Carbon Dioxide BUN Creatinine Glucose POC Glucose 128 H 139 H Lactic Acid Calcium Phosphorus Magnesium Ferritin Lactate Dehydrogenase Total Creatine Kinase C-Reactive Protein Total Protein Albumin U Epithel Cells (Auto) Crossmatch 10/08/21 10/08/21 10/08/21 21:30 22:55 22:55 WBC RBC Hgb Hct MCH RDW Plt Count [place] # (Auto) Seg Neutrophils % Seg Neuts % (Manual) Lymphocytes % (Manual) Monocytes % (Manual) Nucleated RBC % Seg Neutrophils # Seg Neutrophils # Man Lymphocytes # (Manual) Monocytes # (Manual) PT INR D-Dimer ABG pH ABG pO2 43.8 L ABG HCO3 19.5 L ABG O2 Saturation 70.7 L ABG Base Excess -5.3 L ABG Hemoglobin 8.6 L Oxyhemoglobin 69.4 L Sodium Potassium Chloride Carbon Dioxide BUN Creatinine Glucose POC Glucose Lactic Acid 2.50 H* Calcium Phosphorus Magnesium Ferritin Lactate Dehydrogenase Total Creatine Kinase C-Reactive Protein Total Protein Albumin U Epithel Cells (Auto) Crossmatch See Detail 10/09/21 10/09/21 10/09/21 03:12 05:31 05:31 WBC 20.3 H RBC 2.70 L Hgb 7.4 L Hct 23.1 L MCH 27 L RDW 16.6 H Plt Count 786 H [place] # (Auto) Seg Neutrophils % Seg Neuts % (Manual) 88.0 H Lymphocytes % (Manual) 3.0 L Monocytes % (Manual) Nucleated RBC % Seg Neutrophils # Seg Neutrophils # Man 17.9 H Lymphocytes # (Manual) 0.6 L Monocytes # (Manual) 1.2 H PT INR D-Dimer ABG pH ABG pO2 ABG HCO3 ABG O2 Saturation ABG Base Excess ABG Hemoglobin Oxyhemoglobin Sodium 136 L Potassium Chloride Carbon Dioxide 20 L BUN 32 H Creatinine 1.5 H Glucose 214 H POC Glucose 190 H Lactic Acid Calcium 7.5 L Phosphorus Magnesium Ferritin Lactate Dehydrogenase Total Creatine Kinase C-Reactive Protein Total Protein 5.8 L Albumin 2.3 L U Epithel Cells (Auto) Crossmatch 10/09/21 10/09/21 10/09/21 05:31 05:31 05:31 WBC RBC Hgb Hct MCH RDW Plt Count [place] # (Auto) Seg Neutrophils % Seg Neuts % (Manual) Lymphocytes % (Manual) Monocytes % (Manual) Nucleated RBC % Seg Neutrophils # Seg Neutrophils # Man Lymphocytes # (Manual) Monocytes # (Manual) PT INR D-Dimer ABG pH ABG pO2 ABG HCO3 ABG O2 Saturation ABG Base Excess ABG Hemoglobin Oxyhemoglobin Sodium Potassium Chloride Carbon Dioxide BUN Creatinine Glucose POC Glucose Lactic Acid 2.20 H* Calcium Phosphorus Magnesium Ferritin 751.9 H Lactate Dehydrogenase Total Creatine Kinase C-Reactive Protein 15.90 H Total Protein Albumin U Epithel Cells (Auto) Crossmatch 10/09/21 10/09/21 10/09/21 05:31 08:45 12:08 WBC RBC Hgb Hct MCH RDW Plt Count [place] # (Auto) Seg Neutrophils % Seg Neuts % (Manual) Lymphocytes % (Manual) Monocytes % (Manual) Nucleated RBC % Seg Neutrophils # Seg Neutrophils # Man Lymphocytes # (Manual) Monocytes # (Manual) PT INR D-Dimer > 45126 H ABG pH ABG pO2 54.3 L ABG HCO3 ABG O2 Saturation 86.6 L ABG Base Excess -2.6 L ABG Hemoglobin 7.2 L Oxyhemoglobin 85.3 L Sodium Potassium Chloride Carbon Dioxide BUN Creatinine Glucose POC Glucose Lactic Acid Calcium Phosphorus Magnesium Ferritin Lactate Dehydrogenase 472 H Total Creatine Kinase C-Reactive Protein Total Protein Albumin U Epithel Cells (Auto) Crossmatch 10/09/21 10/09/21 10/10/21 12:19 17:43 00:30 WBC RBC Hgb Hct MCH RDW Plt Count [place] # (Auto) Seg Neutrophils % Seg Neuts % (Manual) Lymphocytes % (Manual) Monocytes % (Manual) Nucleated RBC % Seg Neutrophils # Seg Neutrophils # Man Lymphocytes # (Manual) Monocytes # (Manual) PT INR D-Dimer ABG pH ABG pO2 ABG HCO3 ABG O2 Saturation ABG Base Excess ABG Hemoglobin Oxyhemoglobin Sodium Potassium Chloride Carbon Dioxide BUN Creatinine Glucose POC Glucose 151 H 136 H 132 H Lactic Acid Calcium Phosphorus Magnesium Ferritin Lactate Dehydrogenase Total Creatine Kinase C-Reactive Protein Total Protein Albumin U Epithel Cells (Auto) Crossmatch 10/10/21 10/10/21 10/10/21 04:10 04:10 05:41 WBC 20.8 H RBC 2.54 L Hgb 7.1 L Hct 21.8 L MCH RDW 16.6 H Plt Count 740 H [place] # (Auto) Seg Neutrophils % Seg Neuts % (Manual) Lymphocytes % (Manual) Monocytes % (Manual) Nucleated RBC % Seg Neutrophils # Seg Neutrophils # Man Lymphocytes # (Manual) Monocytes # (Manual) PT INR D-Dimer ABG pH ABG pO2 ABG HCO3 ABG O2 Saturation ABG Base Excess ABG Hemoglobin Oxyhemoglobin Sodium 130 L Potassium Chloride 97.9 L Carbon Dioxide 19 L BUN 37 H Creatinine 1.4 H Glucose 181 H POC Glucose 150 H Lactic Acid Calcium 7.8 L Phosphorus Magnesium Ferritin Lactate Dehydrogenase Total Creatine Kinase C-Reactive Protein Total Protein Albumin U Epithel Cells (Auto) Crossmatch 10/10/21 10/10/21 10/10/21 11:10 16:00 23:50 WBC RBC Hgb Hct MCH RDW Plt Count [place] # (Auto) Seg Neutrophils % Seg Neuts % (Manual) Lymphocytes % (Manual) Monocytes % (Manual) Nucleated RBC % Seg Neutrophils # Seg Neutrophils # Man Lymphocytes # (Manual) Monocytes # (Manual) PT INR D-Dimer ABG pH ABG pO2 ABG HCO3 ABG O2 Saturation ABG Base Excess ABG Hemoglobin Oxyhemoglobin Sodium Potassium Chloride Carbon Dioxide BUN Creatinine Glucose POC Glucose 136 H 151 H 129 H Lactic Acid Calcium Phosphorus Magnesium Ferritin Lactate Dehydrogenase Total Creatine Kinase C-Reactive Protein Total Protein Albumin U Epithel Cells (Auto) Crossmatch 10/10/21 10/11/21 10/11/21 Unknown 03:30 03:30 WBC 23.2 H RBC 2.39 L Hgb 6.7 L Hct 20.3 L MCH RDW 16.7 H Plt Count 701 H [place] # (Auto) Seg Neutrophils % Seg Neuts % (Manual) Lymphocytes % (Manual) Monocytes % (Manual) Nucleated RBC % Seg Neutrophils # Seg Neutrophils # Man Lymphocytes # (Manual) Monocytes # (Manual) PT INR D-Dimer ABG pH 7.505 H ABG pO2 246.1 H ABG HCO3 ABG O2 Saturation 99.4 H ABG Base Excess ABG Hemoglobin 6.0 L Oxyhemoglobin Sodium 135 L Potassium Chloride Carbon Dioxide 20 L BUN 38 H Creatinine 1.6 H Glucose 118 H POC Glucose Lactic Acid Calcium 7.9 L Phosphorus Magnesium Ferritin Lactate Dehydrogenase Total Creatine Kinase C-Reactive Protein Total Protein Albumin U Epithel Cells (Auto) Crossmatch 10/11/21 10/11/21 10/12/21 11:41 17:51 00:18 WBC RBC Hgb Hct MCH RDW Plt Count [place] # (Auto) Seg Neutrophils % Seg Neuts % (Manual) Lymphocytes % (Manual) Monocytes % (Manual) Nucleated RBC % Seg Neutrophils # Seg Neutrophils # Man Lymphocytes # (Manual) Monocytes # (Manual) PT INR D-Dimer ABG pH ABG pO2 ABG HCO3 ABG O2 Saturation ABG Base Excess ABG Hemoglobin Oxyhemoglobin Sodium Potassium Chloride Carbon Dioxide BUN Creatinine Glucose POC Glucose 128 H 138 H 174 H Lactic Acid Calcium Phosphorus Magnesium Ferritin Lactate Dehydrogenase Total Creatine Kinase C-Reactive Protein Total Protein Albumin U Epithel Cells (Auto) Crossmatch 10/12/21 10/12/21 10/12/21 05:39 06:02 06:02 WBC 19.1 H RBC 3.56 L Hgb 10.0 L D Hct MCH RDW 17.0 H Plt Count 712 H [place] # (Auto) Seg Neutrophils % Seg Neuts % (Manual) Lymphocytes % (Manual) Monocytes % (Manual) Nucleated RBC % Seg Neutrophils # Seg Neutrophils # Man Lymphocytes # (Manual) Monocytes # (Manual) PT INR D-Dimer ABG pH ABG pO2 ABG HCO3 ABG O2 Saturation ABG Base Excess ABG Hemoglobin Oxyhemoglobin Sodium Potassium Chloride Carbon Dioxide BUN 37 H Creatinine 1.5 H Glucose 172 H POC Glucose 158 H Lactic Acid Calcium 8.1 L Phosphorus Magnesium Ferritin Lactate Dehydrogenase Total Creatine Kinase C-Reactive Protein Total Protein Albumin U Epithel Cells (Auto) Crossmatch 10/12/21 10/12/21 10/12/21 06:02 06:05 17:43 WBC RBC Hgb Hct MCH RDW Plt Count [place] # (Auto) Seg Neutrophils % Seg Neuts % (Manual) Lymphocytes % (Manual) Monocytes % (Manual) Nucleated RBC % Seg Neutrophils # Seg Neutrophils # Man Lymphocytes # (Manual) Monocytes # (Manual) PT 17.1 H INR 1.24 H D-Dimer ABG pH ABG pO2 ABG HCO3 ABG O2 Saturation ABG Base Excess ABG Hemoglobin Oxyhemoglobin Sodium Potassium Chloride Carbon Dioxide BUN Creatinine Glucose POC Glucose 173 H Lactic Acid Calcium Phosphorus Magnesium Ferritin Lactate Dehydrogenase Total Creatine Kinase C-Reactive Protein Total Protein Albumin U Epithel Cells (Auto) Crossmatch See Detail 10/12/21 10/12/21 10/13/21 23:28 Unknown 04:05 WBC RBC Hgb 10.0 L Hct MCH RDW Plt Count [place] # (Auto) Seg Neutrophils % Seg Neuts % (Manual) Lymphocytes % (Manual) Monocytes % (Manual) Nucleated RBC % Seg Neutrophils # Seg Neutrophils # Man Lymphocytes # (Manual) Monocytes # (Manual) PT INR D-Dimer ABG pH ABG pO2 ABG HCO3 ABG O2 Saturation ABG Base Excess ABG Hemoglobin Oxyhemoglobin Sodium Potassium Chloride Carbon Dioxide BUN 34 H Creatinine Glucose 200 H POC Glucose 178 H Lactic Acid Calcium 7.5 L Phosphorus Magnesium 1.60 L Ferritin Lactate Dehydrogenase Total Creatine Kinase C-Reactive Protein Total Protein Albumin U Epithel Cells (Auto) Crossmatch 10/13/21 10/13/21 10/13/21 05:09 10:55 13:34 WBC 23.8 H RBC 3.14 L Hgb 9.2 L Hct 27.7 L MCH RDW 17.5 H Plt Count 572 H [place] # (Auto) Seg Neutrophils % Seg Neuts % (Manual) Lymphocytes % (Manual) Monocytes % (Manual) Nucleated RBC % Seg Neutrophils # Seg Neutrophils # Man Lymphocytes # (Manual) Monocytes # (Manual) PT INR D-Dimer ABG pH ABG pO2 ABG HCO3 ABG O2 Saturation ABG Base Excess ABG Hemoglobin Oxyhemoglobin Sodium Potassium Chloride Carbon Dioxide BUN Creatinine Glucose POC Glucose 210 H 168 H Lactic Acid Calcium Phosphorus Magnesium Ferritin Lactate Dehydrogenase Total Creatine Kinase C-Reactive Protein Total Protein Albumin U Epithel Cells (Auto) Crossmatch 10/13/21 10/13/21 10/14/21 15:35 23:10 04:05 WBC 19.4 H RBC 2.98 L Hgb 8.4 L Hct 26.3 L MCH RDW 17.1 H Plt Count 561 H [place] # (Auto) Seg Neutrophils % Seg Neuts % (Manual) Lymphocytes % (Manual) Monocytes % (Manual) Nucleated RBC % Seg Neutrophils # Seg Neutrophils # Man Lymphocytes # (Manual) Monocytes # (Manual) PT INR D-Dimer ABG pH ABG pO2 ABG HCO3 ABG O2 Saturation ABG Base Excess ABG Hemoglobin Oxyhemoglobin Sodium Potassium Chloride Carbon Dioxide BUN Creatinine Glucose POC Glucose 154 H 135 H Lactic Acid Calcium Phosphorus Magnesium Ferritin Lactate Dehydrogenase Total Creatine Kinase C-Reactive Protein Total Protein Albumin U Epithel Cells (Auto) Crossmatch 10/14/21 10/14/21 10/14/21 04:05 04:05 05:08 WBC RBC Hgb Hct MCH RDW Plt Count [place] # (Auto) Seg Neutrophils % Seg Neuts % (Manual) Lymphocytes % (Manual) Monocytes % (Manual) Nucleated RBC % Seg Neutrophils # Seg Neutrophils # Man Lymphocytes # (Manual) Monocytes # (Manual) PT 19.0 H INR 1.41 H D-Dimer ABG pH ABG pO2 ABG HCO3 ABG O2 Saturation ABG Base Excess ABG Hemoglobin Oxyhemoglobin Sodium Potassium Chloride Carbon Dioxide BUN 33 H Creatinine Glucose 310 H POC Glucose 178 H Lactic Acid Calcium 7.4 L Phosphorus Magnesium Ferritin Lactate Dehydrogenase Total Creatine Kinase C-Reactive Protein Total Protein Albumin U Epithel Cells (Auto) Crossmatch 10/14/21 10/14/21 10/14/21 09:29 10:45 11:40 WBC RBC Hgb Hct MCH RDW Plt Count [place] # (Auto) Seg Neutrophils % Seg Neuts % (Manual) Lymphocytes % (Manual) Monocytes % (Manual) Nucleated RBC % Seg Neutrophils # Seg Neutrophils # Man Lymphocytes # (Manual) Monocytes # (Manual) PT INR D-Dimer ABG pH 7.342 L ABG pO2 96.0 H ABG HCO3 26.2 H ABG O2 Saturation ABG Base Excess ABG Hemoglobin 6.1 L Oxyhemoglobin 94.9 L Sodium Potassium Chloride Carbon Dioxide BUN Creatinine Glucose POC Glucose 155 H 137 H Lactic Acid Calcium Phosphorus Magnesium Ferritin Lactate Dehydrogenase Total Creatine Kinase C-Reactive Protein Total Protein Albumin U [place]ithel Cells (Auto) Crossmatch 10/14/21 10/14/21 10/14/21 15:40 21:21 23:46 WBC RBC Hgb Hct MCH RDW Plt Count [place] # (Auto) Seg Neutrophils % Seg Neuts % (Manual) Lymphocytes % (Manual) Monocytes % (Manual) Nucleated RBC % Seg Neutrophils # Seg Neutrophils # Man Lymphocytes # (Manual) Monocytes # (Manual) PT INR D-Dimer ABG pH ABG pO2 ABG HCO3 ABG O2 Saturation ABG Base Excess ABG Hemoglobin Oxyhemoglobin Sodium Potassium Chloride Carbon Dioxide BUN Creatinine Glucose POC Glucose 140 H 111 H 164 H Lactic Acid Calcium Phosphorus Magnesium Ferritin Lactate Dehydrogenase Total Creatine Kinase C-Reactive Protein Total Protein Albumin U [place] Cells (Auto) Crossmatch 10/15/21 10/15/21 10/15/21 05:06 05:40 05:40 WBC 22.7 H RBC 2.94 L Hgb 8.7 L Hct 25.8 L MCH RDW 17.2 H Plt Count 620 H [place] # (Auto) Seg Neutrophils % Seg Neuts % (Manual) Lymphocytes % (Manual) Monocytes % (Manual) Nucleated RBC % Seg Neutrophils # Seg Neutrophils # Man Lymphocytes # (Manual) Monocytes # (Manual) PT INR D-Dimer ABG pH ABG pO2 ABG HCO3 ABG O2 Saturation ABG Base Excess ABG Hemoglobin Oxyhemoglobin Sodium Potassium Chloride Carbon Dioxide BUN 30 H Creatinine Glucose 175 H POC Glucose 155 H Lactic Acid Calcium 7.4 L Phosphorus Magnesium Ferritin Lactate Dehydrogenase Total Creatine Kinase C-Reactive Protein Total Protein Albumin U Epithel Cells (Auto) Crossmatch 10/15/21 10/15/21 10/15/21 11:32 17:23 23:35 WBC RBC Hgb Hct MCH RDW Plt Count [place] # (Auto) Seg Neutrophils % Seg Neuts % (Manual) Lymphocytes % (Manual) Monocytes % (Manual) Nucleated RBC % Seg Neutrophils # Seg Neutrophils # Man Lymphocytes # (Manual) Monocytes # (Manual) PT INR D-Dimer ABG pH ABG pO2 ABG HCO3 ABG O2 Saturation ABG Base Excess ABG Hemoglobin Oxyhemoglobin Sodium Potassium Chloride Carbon Dioxide BUN Creatinine Glucose POC Glucose 157 H 136 H 143 H Lactic Acid Calcium Phosphorus Magnesium Ferritin Lactate Dehydrogenase Total Creatine Kinase C-Reactive Protein Total Protein Albumin U Epithel Cells (Auto) Crossmatch 10/16/21 10/16/21 10/16/21 04:00 04:00 05:08 WBC 18.0 H RBC 2.80 L Hgb 8.0 L Hct 24.7 L MCH RDW 17.4 H Plt Count 543 H [place] # (Auto) Seg Neutrophils % Seg Neuts % (Manual) Lymphocytes % (Manual) Monocytes % (Manual) Nucleated RBC % Seg Neutrophils # Seg Neutrophils # Man Lymphocytes # (Manual) Monocytes # (Manual) PT INR D-Dimer ABG pH ABG pO2 ABG HCO3 ABG O2 Saturation ABG Base Excess ABG Hemoglobin Oxyhemoglobin Sodium Potassium Chloride Carbon Dioxide BUN 31 H Creatinine Glucose 153 H POC Glucose 149 H Lactic Acid Calcium 8.0 L Phosphorus Magnesium Ferritin Lactate Dehydrogenase Total Creatine Kinase C-Reactive Protein Total Protein 5.5 L Albumin 1.9 L U [place] Cells (Auto) Crossmatch Chest x-ray: pending Allied health notes reviewed: nursing
--- NOTE | 2021-10-16 12:06 | Progress Note ---
Assessment and Plan Assessment and plan: This is a 31-year-old female with obesity and nephrolithiasis admitted with pericolonic abscess secondary to contained perforated diverticulitis, peritonitis complicated by acute blood loss anemia, acute kidney injury and acute hypoxic respiratory failure. Neuro: Sedated -Sedated with propofol and fentanyl -RASS goal -1 to -2 -Avoid delirium -Reorientation as needed -Maintain sleep-wake cycle -Daily SAT as appropriate -Bilateral soft restraints in place for patient safety Cardiac: NAD -Blood pressure monitoring per protocol -s/p vasopressor support with Levophed and vasopressin -MAP goal greater than 65 -Echocardiogram shows normal right ventricular function, LVEF 55 to 60% Respiratory: Acute hypoxic respiratory failure -[facility] consulted, appreciate recommendations -Intubated s/p code met on 10/08 with 7.50 ETT at 24 the lips -A.m. vent settings: Assist-control rate 12, tidal volume 425, PEEP 6, FiO2 30% -hold off weaning vent till abd closure -A.m. 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, diverticulitis with abscess, moderate protein calorie malnutrition, h/o obesity -Surgery consulted, appreciate recommendations -S/p washout of pericolonic abscess on 09/26/2021 -S/p open left hemicolectomy, appendectomy and partial omentectomy on 10/01 -10/09 CT abdomen/pelvis showed a new collection of air within the left midabdomen -Scheduled for CT guided drain placement with IR -IR findings: Fluid collections abutting the colonic anastamosis and drain passed into the colon originally requiring retraction into the fluid collection, left mild to moderate hydronephrosis, 700 ml brown serous fluid from the mid a bdominal drain (drain #1), 200 mL brown thick fluid from the left lateral drain (drain #2) -24 hours: -2019 ml -Left lateral abdominal 190 ml -MLA wound vac 1260 mL-serosanguineous -Right abdominal YURIDIA drain 200 ml serosanguineous drainage -PPI -TPN -NGT to LIS- 190 ml : Acute kidney injury secondary to vasomotor nephropathy versus contrast induced, Possible Bladder injury -Nephrology and urology consulted, appreciate recommendations -Strict intake and output -Renally dose medications -Avoid nephrotoxic medications -Daily weights -s/p IV Lasix nephrology -Trend BMP -Repeat magnesium -S/p bilateral ureteral stents -10/12 Intra-Op cystoscopy completed and bilateral ureteral stents placed (removed 10/13) -Per urology repeat renal ultrasound ID: Acute sepsis secondary to pericolonic abscess with appendiceal rupture fistulization, peritonitis, VRE and jean marie albicans in wound culture -Infectious disease consulted, appreciate recommendations -COVID 19 PCR negative -S/p drain placement and diagnostic laparotomy on 09/26 -Antibiotic therapy with linezolid, Flagyl, and fluconazole -f/u blood culture -Monitor WBC and temperature curve Endo: NAD -Avoid hypoglycemia -SSI -Accu-Cheks q6 -Long-acting insulin, titrate as needed Heme: Acute blood loss anemia, elevated D-dimer, hematuria, leukocytosis, thrombocytosis -Patient had hematuria after ureteral injury sustained from surgical procedures -Urology consulted, appreciate recommendation -10/09 CTA chest with no evidence of PE. Findings suggesting multifocal pneumonia vs pulmonary edema -Bilateral lower extremity Doppler ultrasound shows no sonographic evidence of DVT however shows subcutaneous edema in lower extremities -Trend CBC -Transfuse hemoglobin less than 7 -S/p 6 units PRBC -Monitor for signs of bleeding -SCDs to BLE while in bed -Heparin subq The high probability of a clinically significant, sudden or life threatening deterioration of the [multi] system(s) required my full and direct attention, intervention and personal management. The aggregate critical care time was [60] minutes. This time is in addition to time spent performing reported procedures but includes the following: [x] Data Review and interpretation [x] Patient assessment and monitoring of vital signs [x] Documentation [x] Medication orders and management Disposition Plan: icu Total Time Spent with Patient (Minutes): 60 History Interval history: This is a 31-year-old female with obesity and nephrolithiasis admitted with complaints of abdominal pain, lower back pain, nausea no with episodes of vomiting over the past dayon 09/24. Patient underwent a CT scan of the abdomen and pelvis and was found to have acute diverticulitis complicated by sepsis and was admitted to the medical floor initiated sepsis protocol. Surgery team was consulted in the emergency department. ICU Course to Date: 10/09: Intubated and sedated, RASS -1 to -2. Recent CXR noted with worsen bilateral opacities with persistent leukocytosis, elevated lactic, and now on 2 pressors. Patient remains afebrile, and already on IV Abx per ID. Will swab patient for COVID. Given recent surgery orders placed for CTA chest, CT Abd/plevis. And also BLE dopplers due to elevated D-Dimer. Renal function is improving, additional IVF to flush out kidney post contrast, Nephrology is also following. Continue TPN and NGT to LIS. 10/10: COVID PCR negative. CTA chest and Abd/plevis noted. No evidence of PE. Patient received X1 dose of 20mg IV lasix per Nephro for pulmonary edema, this am CXR with some improvement, renal function is also improving. Wean vent setting as tolerated per CCM. Plan for possible CT guided drainage placement in IR tomorrow. Continue TPN and NGT to LIS. 10/11: Patient with anemia, 1 unit PRBC, scheduled for CT-guided drain image of air pocket. Will place on CPAP on return. Slightly worsening renal function but nephrology is on the case. 10/12: Taken to OR today for diverting ileostomy, given 3 units PRBC yesterday and appropriate response. Surgical culture grew yeast and ID added added fluconazole. 10/13: Hypomagnesemia repleted, renal function improving. Patient remains sedated with fentanyl and propofol. Updated sister and father at bedside. Ureteral stents removed at bedside. Plan to to take patient to the OR tomorrow for second look, abdominal washout, colostomy creation on hold for abdominal closure by surgery. We will hold p.m. dose of heparin. 10/14: Plan to take patient back to OR today, prophylactic anticougulation on ho ld. 2 units prbc on hold for surgery. Plan to close abd and colostomy creation. Vent weaning on hold till abd closure 10/15: Renal function remains stable, leukocytosis increased, remains sedated on propofol and fentanyl and on mechanical ventilation. Plan is to hold SBT until the weekend. Repeat renal ultrasound pending per urology. 10/16: no acute events overnight. remains on fent and propofol. plan to sbt on monday. Hospitalist Physical - Constitutional Vitals: Temp Pulse Resp BP Pulse Ox 97.4 F L 92 H 12 125/80 100 10/16/21 08:00 10/16/21 11:30 10/16/21 11:30 10/16/21 11:30 10/16/21 11:30 General appearance: Present: no acute distress, other (intubated sedated) - EENT Eyes: Present: PERRL, EOM intact - Neck Neck: Present: normal ROM - Respiratory Respiratory effort: normal Respiratory: bilateral: diminished - Cardiovascular Rhythm: regular Heart Sounds: Present: S1 & S2. Absent: systolic murmur, diastolic murmur - Extremities Extremities: pulses intact, pulses symmetrical, normal temperature, normal color Peripheral Pulses: within normal limits - Abdominal General gastrointestinal: soft, non-tender, hypoactive bowel sounds - Integumentary Integumentary: Present: warm, dry - Psychiatric Psychiatric: cooperative - Neurologic Neurologic: CNII-XII intact, no focal deficits, moves all extremities - Allied Health Allied health notes reviewed: nursing, RT, social work Results - Labs CBC & Chem 7: 10/16/21 04:00 10/16/21 04:00 Labs: Laboratory Last Values WBC 18.0 K/mm3 (4.5-11.0) H 10/16/21 04:00 RBC 2.80 M/mm3 (3.65-5.03) L 10/16/21 04:00 Hgb 8.0 gm/dl (10.1-14.3) L 10/16/21 04:00 Hct 24.7 % (30.3-42.9) L 10/16/21 04:00 MCV 88 fl (79-97) 10/16/21 04:00 MCH 28 pg (28-32) 10/16/21 04:00 MCHC 32 % (30-34) 10/16/21 04:00 RDW 17.4 % (13.2-15.2) H 10/16/21 04:00 Plt Count 543 K/mm3 (140-440) H 10/16/21 04:00 [place] % (Auto) 5.9 % (0.0-7.3) 09/28/21 04:55 Eos % (Auto) 0.4 % (0.0-4.3) 09/28/21 04:55 [place] # (Auto) 0.9 K/mm3 (0.0-0.8) H 09/28/21 04:55 Eos # (Auto) 0.1 K/mm3 (0.0-0.4) 09/28/21 04:55 Baso # (Auto) 0.0 K/mm3 (0.0-0.1) 09/28/21 04:55 Add Manual Diff Complete 10/09/21 05:31 Total Counted 100 10/09/21 05:31 Seg Neutrophils % Certified Public [employer]ant 10/03/21 04:55 Seg Neuts % (Manual) 88.0 % (40.0-70.0) H 10/09/21 05:31 Band Neutrophils % 0 % 10/09/21 05:31 Lymphocytes % (Manual) 3.0 % (13.4-35.0) L 10/09/21 05:31 Reactive Lymphs % (Man) 1.0 % 10/09/21 05:31 Monocytes % (Manual) 6.0 % (0.0-7.3) 10/09/21 05:31 Eosinophils % (Manual) 2.0 % (0.0-4.3) 10/09/21 05:31 Basophils % (Manual) 0 % (0.0-1.8) 10/09/21 05:31 Metamyelocytes % 0 % 10/09/21 05:31 Myelocytes % 0 % 10/09/21 05:31 Promyelocytes % 0 % 10/09/21 05:31 Blast Cells % 0 % 10/09/21 05:31 Nucleated RBC % Not Reportable 10/09/21 05:31 Seg Neutrophils # 14.0 K/mm3 (1.8-7.7) H 09/28/21 04:55 Seg Neutrophils # Man 17.9 K/mm3 (1.8-7.7) H 10/09/21 05:31 Band Neutrophils # 0.0 K/mm3 10/09/21 05:31 Lymphocytes # (Manual) 0.6 K/mm3 (1.2-5.4) L 10/09/21 05:31 Abs React Lymphs (Man) 0.2 K/mm3 10/09/21 05:31 Monocytes # (Manual) 1.2 K/mm3 (0.0-0.8) H 10/09/21 05:31 Eosinophils # (Manual) 0.4 K/mm3 (0.0-0.4) 10/09/21 05:31 Basophils # (Manual) 0.0 K/mm3 (0.0-0.1) 10/09/21 05:31 Metamyelocytes # 0.0 K/mm3 10/09/21 05:31 Myelocytes # 0.0 K/mm3 10/09/21 05:31 Promyelocytes # 0.0 K/mm3 10/09/21 05:31 Blast Cells # 0.0 K/mm3 10/09/21 05:31 Pathologist Review 09/24/21 14:58 WBC Morphology Not Reportable 10/09/21 05:31 Hypersegmented Neuts Not Reportable 10/09/21 05:31 Hyposegmented Neuts Not Reportable 10/09/21 05:31 Hypogranular Neuts Not Reportable 10/09/21 05:31 Smudge Cells Not Reportable 10/09/21 05:31 Toxic Granulation Not Reportable 10/09/21 05:31 Toxic Vacuolation Not Reportable 10/09/21 05:31 Dohle Bodies Not Reportable 10/09/21 05:31 Pelger-Huet Anomaly Not Reportable 10/09/21 05:31 Marlene Rods Not Reportable 10/09/21 05:31 Platelet Estimate Consistent w auto 10/09/21 05:31 Clumped Platelets Not Reportable 10/09/21 05:31 Plt Clumps, EDTA Not Reportable 10/09/21 05:31 Large Platelets Not Reportable 10/09/21 05:31 Giant Platelets Not Reportable 10/09/21 05:31 Platelet Satelliting Not Reportable 10/09/21 05:31 Plt Morphology Comment Not Reportable 10/09/21 05:31 RBC Morphology Not Reportable 10/09/21 05:31 Dimorphic RBCs Not Reportable 10/09/21 05:31 Polychromasia Not Reportable 10/09/21 05:31 Hypochromasia Not Reportable 10/09/21 05:31 Poikilocytosis Not Reportable 10/09/21 05:31 Anisocytosis 1+ 10/09/21 05:31 Microcytosis Not Reportable 10/09/21 05:31 Macrocytosis Not Reportable 10/09/21 05:31 Spherocytes Not Reportable 10/09/21 05:31 Pappenheimer Bodies Not Reportable 10/09/21 05:31 Sickle Cells Not Reportable 10/09/21 05:31 Target Cells Not Reportable 10/09/21 05:31 Tear Drop Cells Not Reportable 10/09/21 05:31 Ovalocytes Not Reportable 10/09/21 05:31 Helmet Cells Not Reportable 10/09/21 05:31 [place] Bodies Not Reportable 10/09/21 05:31 [place] Rings Not Reportable 10/09/21 05:31 Anusha Cells Not Reportable 10/09/21 05:31 Bite Cells Not Reportable 10/09/21 05:31 Crenated Cell Not Reportable 10/09/21 05:31 Elliptocytes Not Reportable 10/09/21 05:31 Acanthocytes (Spur) Not Reportable 10/09/21 05:31 Rouleaux Not Reportable 10/09/21 05:31 Hemoglobin C Crystals Not Reportable 10/09/21 05:31 Schistocytes Not Reportable 10/09/21 05:31 Malaria parasites Not Reportable 10/09/21 05:31 Flaco Bodies Not Reportable 10/09/21 05:31 Hem Pathologist Commnt No 10/09/21 05:31 PT 19.0 Sec. (12.2-14.9) H 10/14/21 04:05 INR 1.41 (0.87-1.13) H 10/14/21 04:05 APTT 33.9 Sec. (24.2-36.6) 10/14/21 04:05 D-Dimer > 77584 ng/mlDDU (0-234) H 10/09/21 08:45 ABG pH 7.342 pH Units (7.350-7.450) L 10/14/21 10:45 ABG pCO2 49.5 mm Hg 10/14/21 10:45 ABG pO2 96.0 mm Hg (80.0-90.0) H 10/14/21 10:45 ABG HCO3 26.2 mmol/L (20.0-26.0) H 10/14/21 10:45 ABG O2 Saturation 97.2 % (95.0-99.0) 10/14/21 10:45 ABG O2 Content 8.4 (0.0-44) 10/14/21 10:45 ABG Base Excess 0.4 mmol/L (-2.0-3.0) 10/14/21 10:45 ABG Hemoglobin 6.1 gm/dl (12.0-16.0) L 10/14/21 10:45 ABG Carboxyhemoglobin 1.8 % (0.0-5.0) 10/14/21 10:45 ABG Methemoglobin 0.5 % (0.0-1.5) 10/14/21 10:45 Oxyhemoglobin 94.9 % (95.0-99.0) L 10/14/21 10:45 FiO2 30 % 10/14/21 10:45 Sodium 139 mmol/L (137-145) 10/16/21 04:00 Potassium 4.5 mmol/L (3.6-5.0) 10/16/21 04:00 Chloride 102.9 mmol/L (98-107) 10/16/21 04:00 Carbon Dioxide 27 mmol/L (22-30) 10/16/21 04:00 Anion Gap 14 mmol/L 10/16/21 04:00 BUN 31 mg/dL (7-17) H 10/16/21 04:00 Creatinine 1.0 mg/dL (0.6-1.2) 10/16/21 04:00 Estimated GFR > 60 ml/min 10/16/21 04:00 BUN/Creatinine Ratio 31 % 10/16/21 04:00 Glucose 153 mg/dL (65-100) H 10/16/21 04:00 POC Glucose 144 mg/dL (70-105) H 10/16/21 11:45 Lactic Acid 1.80 mmol/L (0.7-2.0) 10/10/21 04:10 Calcium 8.0 mg/dL (8.4-10.2) L 10/16/21 04:00 Phosphorus 2.80 mg/dL (2.5-4.5) 10/16/21 04:00 Magnesium 1.90 mg/dL (1.7-2.3) 10/16/21 04:00 Ferritin 751.9 ng/mL (10.0-200.0) H 10/09/21 05:31 Total Bilirubin 0.20 mg/dL (0.1-1.2) 10/16/21 04:00 AST 18 units/L (5-40) 10/16/21 04:00 ALT 8 units/L (7-56) 10/16/21 04:00 Alkaline Phosphatase 48 units/L (35-129) 10/16/21 04:00 Lactate Dehydrogenase 472 units/L (91-180) H 10/09/21 05:31 Total Creatine Kinase 45 units/L (30-135) 10/13/21 04:05 C-Reactive Protein 15.90 mg/dL (0.00-1.30) H 10/09/21 05:31 Total Protein 5.5 g/dL (6.3-8.2) L 10/16/21 04:00 Albumin 1.9 g/dL (3.9-5) L 10/16/21 04:00 Albumin/Globulin Ratio 0.5 % 10/16/21 04:00 Triglycerides 80 mg/dL (2-149) 10/14/21 04:05 Procalcitonin 12.98 ng/mL (<0.15) 10/09/21 05:31 Urine Color Yellow (Yellow) 09/24/21 14:49 Urine Turbidity Slightly-cloudy (Clear) 09/24/21 14:49 Urine pH 6.0 (5.0-7.0) 09/24/21 14:49 Ur Specific [place] 1.017 (1.003-1.030) 09/24/21 14:49 Urine Protein 30 mg/dl mg/dL (Negative) 09/24/21 14:49 Urine Glucose (UA) Neg mg/dL (Negative) 09/24/21 14:49 Urine Ketones Neg mg/dL (Negative) 09/24/21 14:49 Urine Blood Neg (Negative) 09/24/21 14:49 Urine Nitrite Neg (Negative) 09/24/21 14:49 Ur Reducing Substances Not Reportable 09/24/21 14:49 Urine Bilirubin Neg (Negative) 09/24/21 14:49 Urine Ictotest Not Reportable 09/24/21 14:49 Urine Urobilinogen < 2.0 mg/dL (<2.0) 09/24/21 14:49 Ur Leukocyte Esterase Neg (Negative) 09/24/21 14:49 Urine WBC (Auto) 4.0 /HPF (0.0-6.0) 09/24/21 14:49 Urine RBC (Auto) 2.0 /HPF (0.0-6.0) 09/24/21 14:49 U Epithel Cells (Auto) 18.0 /HPF (0-13.0) H 09/24/21 14:49 Urine Mucus Few /HPF 09/24/21 14:49 Urine HCG, Qual Negative (Negative) 09/24/21 14:49 Coronavirus (PCR) Negative (Negative) 10/09/21 10:15 Blood Type A POSITIVE 10/12/21 06:05 Antibody Screen Negative 10/12/21 06:05 Crossmatch See Detail 10/12/21 06:05 Microbiology: Microbiology 10/11/21 14:52 Abdomen Surgical Culture - Preliminary Jean Marie Albicans Staphylococcus Aureus Doss/IV: Voiding Method Indwelling Catheter Active Medications - Current Medications Current Medications: Generic Name Dose Route Start Last Admin Trade Name Freq PRN Reason Stop Dose Admin Acetaminophen 650 mg 10/08/21 21:38 Acetaminophen 325 Mg Tab PO Q6H PRN Pain, Mild (1-3) Albuterol 2.5 mg 09/24/21 18:07 Albuterol 2.5 Mg/3 Ml Nebu IH Q4HRT PRN Shortness Of Breath Dextrose 0 ml 10/03/21 12:37 Dextrose 10% *Hypoglycemia IV PRN PRN Hypoglycemia Diphenhydramine HCl 25 mg 10/04/21 15:14 10/07/21 00:34 Diphenhydramine 50 Mg/Ml Vial IV 25 mg Q6H PRN Administration Itching Famotidine 20 mg 10/08/21 22:00 10/15/21 22:04 Famotidine 20 Mg/2 Ml Inj IV 20 mg BID JAZ Administration Fentanyl 50 mcg 10/08/21 22:10 10/15/21 09:34 Fentanyl 100 Mcg/2 Ml Inj IV 50 mcg Q10MIN PRN Administration ANALGESIA Heparin Sodium (Porcine) 5,000 unit 10/16/21 10:00 10/16/21 10:14 Heparin 5,000 Unit/1 Ml Vial SUB-Q 5,000 unit Q12HR JAZ Administration Hydromorphone HCl 0.25 mg 10/08/21 21:38 Hydromorphone 1 Mg/1 Ml Inj IV Q4H PRN Pain, Moderate (4-6) Hydrophilic Ointment 1 applic 10/08/21 21:00 Lip Therapy Vaseline TP Q2HR PRN Dry Lips Metronidazole 500 mg in 100 mls @ 100 mls/hr 10/02/21 16:00 10/16/21 10:13 Flagyl 500 Mg/100 Ml IV 100 mls/hr Q8H [facility] Administration Protocol Propofol 1,000 mg in 100 mls @ 2.694 mls/hr 10/08/21 21:00 10/16/21 11:34 Diprivan 10 Mg/Ml IV 40 mcg/kg/min TITR JAZ 21.552 mls/hr Administration Protocol 5 MCG/KG/MIN Fentanyl Citrate 2,000 mcg in 100 mls @ 4.49 mls/hr 10/08/21 23:00 10/16/21 11:35 Fentanyl Drip Premix IV 4 mcg/kg/hr TITR JAZ 17.96 mls/hr Administration Protocol 1 MCG/KG/HR Vasopressin 20 unit/ Sodium 101 mls @ 9.09 mls/hr 10/08/21 23:00 10/09/21 14:30 Chloride IV 0 units/min TITR JAZ 0 mls/hr Titration Protocol 0.03 UNITS/MIN NORepinephrine/NS 8 MG-250 ML 8 mg in 250 mls @ 3.75 mls/hr 10/08/21 23:45 Norepinephrine/Ns 8 Mg-250 Ml (Double Conc) IV TITRATE [facility] Protocol 2 MCG/MIN Fluconazole 200 mls @ 100 mls/hr 10/13/21 10:00 10/16/21 10:14 Diflucan IV 100 mls/hr Q24HR [facility] Administration Protocol Amino Acids/Electrolytes/Dextrose 1,999.92 mls @ 83.33 mls/hr 10/15/21 20:00 10/15/21 20:01 Tpn Adult IV 10/16/21 19:59 83.33 mls/hr DAILY@1999 [facility] Administration Protocol Amino Acids/Electrolytes/Dextrose 1,999.92 mls @ 83.33 mls/hr 10/16/21 20:00 Tpn Adult IV DAILY@1999 [facility] Protocol Insulin Glargine 5 units 10/13/21 10:00 10/16/21 10:15 Insulin Glargine 100 Units/Ml SUB-Q 5 units QDAY [facility] Administration Insulin Human Regular 0 units 10/10/21 00:00 10/16/21 05:24 Insulin Regular, Human 100 Units/1 Ml SUB-Q Not Given Q6HR [facility] Protocol Labetalol HCl 10 mg 10/01/21 08:31 10/14/21 22:32 Labetalol 20 Mg/4 Ml Inj IV 10 mg Q6H PRN Administration Hypertension Multi-Ingred Cream/Lotion/Oil/Oint 1 applic 10/08/21 21:00 Mineral Oil/Petrolatum, White Ophth Oint 3.5 Gm OU Q4HR PRN Dry Eye(s) Naloxone HCl 0.1 mg 10/03/21 14:00 Naloxone 0.4 Mg/1 Ml Inj IV Q2MIN PRN Res Rate </= 8 or 02 SAT < 92% Ondansetron HCl 4 mg 09/24/21 18:07 10/05/21 11:39 Ondansetron 4 Mg/2 Ml Inj IV 4 mg Q8H PRN Administration Nausea And Vomiting Phenol 1 spray 10/02/21 13:00 10/03/21 10:23 Phenol 1.4% 177 Ml Bottle MM 1 spray PRN PRN Administration Sore Throat Scopolamine 1 each 10/04/21 10:00 10/16/21 10:14 Scopolamine Transdermal Patch 72 Hr TD 1 each Q3D JAZ Administration Sodium Chloride 10 ml 09/24/21 22:00 10/16/21 10:14 Sodium Chloride 0.9% 10 Ml Flush Syringe IV 10 ml BID JAZ Administration Sodium Chloride 10 ml 09/24/21 18:07 09/25/21 08:34 Sodium Chloride 0.9% 10 Ml Flush Syringe IV 10 ml PRN PRN Administration LINE FLUSH Nutrition/Malnutrition Assess - Dietary Evaluation Nutrition/Malnutrition Findings: Nutrition Notes Start: 09/25/21 15:31 Freq: Status: Active Protocol: Document 10/15/21 10:11 BRYAN (Rec: 10/15/21 10:19 [facility] [id number]) Nutrition Notes Initial or Follow up Reassessment Current Diagnosis Sepsis,Respiratory Failure Other Pertinent Diagnosis s/p appendectomy, s/p exp lap with colostomy, anemia Current Diet CPN at 83.33 ml/hr Labs/Tests BUN 30 BG 175 Pertinent Medications Propofol at 16.164ml/hr ( provides 427 kcal) Height 5 ft 7 in Weight 107.2 kg [place] Body Weight (kg) 61.36 BMI 37.0 Weight Status Obese Subjective/Other Information Day 13 CPN. Pt remains on vent support. Percent of energy/protein needs met: 75% energy 81% pro (meeting 100% energy needs if propofol included) Burn Absent Trauma Absent #1 Nutrition Diagnosis Altered GI function Diagnosis Progress(for reassessment Continues documentation) Is patient on ventilator? Yes Is Patient Ambulatory and/or Out of Bed No REE-([facility]-confined to bed) 2179.332 Kcal/Kg value to use for calculation 16 Approximate Energy Requirements Using 1715 kcal/Kg Calculation Used for Recommendations Kcal/kg Additional Notes Pro needs 2g/kg IBW: 123g/day Fluid needs 1ml/kcal Nutrition Intervention Nutrition Support: Continue CPN at 83.33ml/hr: MVI, 5.5% amino acids, 40mEq K . Osmolality: 1370. Kcal 1,290 Protein (gm) 110 Carbohydrates (gm) 250 Fat (gm) 0 Fluid (mL) 2,000 Fiber (gm) 0 Goal #1 Provide at least 75% of energy /protein needs through Parenteral Feeding during LOS. Follow-Up By: 10/16/21 Additional Comments Labs in am: CMP, Mg, Phos F/U: vent status, propofol
--- NOTE | 2021-10-16 13:28 | Progress Note ---
Assessment and Plan 31 yo F s/p -Postop day #2 status post colostomy creation with closure of abdomen. Patient is afebrile and stable with resolving tachycardia. -Postop day #4 status post colorectal anastomosis takedown, with abdominal washout and ABThera wound VAC. -Postop day #5 status post laparoscopic converted to open left hemicolectomy with appendectomy for perforated appendicitis with fistulization to sigmoid colon. Plan: 1. Will continue antibiotics and supportive care. 2. Will be slow to wean off of ventilator due to anticipation of significant abdominal pain from a tight abdominal closure - vent management per ICU team. 3. We will keep NG tube to low intermittent suction as I anticipate an extensive ileus. Continue TPN 4. DVT ppx 5. Pain control 6. Gi ppx 7. Creatinine has normalized she is making good urine output. Nephro and Uro on board 8. IV abx - ID on board 9. Monitor drains and output 10. Await ostomy function Thank you, please call with questions. Subjective Date of service: 10/16/21 Narrative: Pt seen and examined. No acute changes in her condition. Afebrile. Objective Vital Signs - 12hr 10/16/21 10/16/21 10/16/21 01:30 02:00 02:30 Temperature Pulse Rate 92 H 85 80 Pulse Rate [ From Monitor] Respiratory 16 15 12 Rate Blood Pressure 131/72 127/70 128/69 O2 Sat by Pulse 100 100 100 Oximetry 10/16/21 10/16/21 10/16/21 03:00 03:30 03:41 Temperature 98.6 F Pulse Rate 89 87 Pulse Rate [ From Monitor] Respiratory 15 14 Rate Blood Pressure 142/82 131/79 O2 Sat by Pulse 100 99 Oximetry 10/16/21 10/16/21 10/16/21 04:00 04:24 04:30 Temperature 98.6 F Pulse Rate 90 96 H 90 Pulse Rate [ 96 H From Monitor] Respiratory 13 13 Rate Blood Pressure 130/81 130/81 138/81 O2 Sat by Pulse 98 100 100 Oximetry 10/16/21 10/16/21 10/16/21 05:00 05:30 06:00 Temperature Pulse Rate 86 107 H 96 H Pulse Rate [ From Monitor] Respiratory 15 16 12 Rate Blood Pressure 135/81 143/88 161/91 O2 Sat by Pulse 100 100 100 Oximetry 10/16/21 10/16/21 10/16/21 06:30 07:00 07:20 Temperature Pulse Rate 97 H 86 88 Pulse Rate [ From Monitor] Respiratory 12 13 Rate Blood Pressure 145/88 130/71 124/71 O2 Sat by Pulse 100 100 100 Oximetry 10/16/21 10/16/21 10/16/21 07:30 08:00 08:30 Temperature 97.4 F L Pulse Rate 88 90 86 Pulse Rate [ From Monitor] Respiratory 13 15 15 Rate Blood Pressure 122/70 124/71 121/70 O2 Sat by Pulse 100 100 100 Oximetry 10/16/21 10/16/21 10/16/21 09:00 09:30 10:00 Temperature Pulse Rate 85 84 89 Pulse Rate [ From Monitor] Respiratory 12 12 12 Rate Blood Pressure 115/65 116/63 119/72 O2 Sat by Pulse 100 100 100 Oximetry 10/16/21 10/16/21 10/16/21 10:30 11:00 11:20 Temperature Pulse Rate 97 H 93 H 97 H Pulse Rate [ From Monitor] Respiratory 11 L 10 L Rate Blood Pressure 111/81 125/83 125/83 O2 Sat by Pulse 100 100 100 Oximetry 10/16/21 10/16/21 10/16/21 11:30 12:00 12:01 Temperature 98.1 F Pulse Rate 92 H 89 99 H Pulse Rate [ From Monitor] Respiratory 12 11 L Rate Blood Pressure 125/80 135/84 O2 Sat by Pulse 100 100 Oximetry - General physical appearance Narrative Exam: Gen.: Intubated and sedated. No apparent distress ENT: Trachea midline. No lymphadenopathy. No scleral icterus or conjunctival pallor. NG tube bilious. CV: S1, S2 present Respiratory: No audible wheezes Abdomen: Soft, mildly distended, nontender. Dressing saturated with serous drainage. Entirety of dressing removed. Incision cleansed and new clean dressing applied to midline incision and YURIDIA drain. YURIDIA drain serosanguineous. Colostomy dressing reinforced. Colostomy is pink with moderate edema. No air or stool in bag. No rebound, rigidity, guarding Extremities: b/l LE edema I/Os: L flank IR drain: 190cc/24h Medial abdominal drain: 1260cc/24 serosang NGT - 1650cc/24h light bilious Uo: 1275cc/24h - Labs 10/16/21 04:00 10/16/21 04:00 Diabetes panel 10/16/21 Range/Units 04:00 Sodium 139 (137-145) mmol/L Potassium 4.5 (3.6-5.0) mmol/L Chloride 102.9 (98-107) mmol/L Carbon Dioxide 27 (22-30) mmol/L BUN 31 H (7-17) mg/dL Creatinine 1.0 (0.6-1.2) mg/dL Glucose 153 H (65-100) mg/dL Calcium 8.0 L (8.4-10.2) mg/dL AST 18 (5-40) units/L ALT 8 (7-56) units/L Alkaline Phosphatase 48 (35-129) units/L Total Protein 5.5 L (6.3-8.2) g/dL Albumin 1.9 L (3.9-5) g/dL Calcium panel 10/16/21 Range/Units 04:00 Calcium 8.0 L (8.4-10.2) mg/dL Phosphorus 2.80 (2.5-4.5) mg/dL Albumin 1.9 L (3.9-5) g/dL Pituitary panel 10/16/21 Range/Units 04:00 Sodium 139 (137-145) mmol/L Potassium 4.5 (3.6-5.0) mmol/L Chloride 102.9 (98-107) mmol/L Carbon Dioxide 27 (22-30) mmol/L BUN 31 H (7-17) mg/dL Creatinine 1.0 (0.6-1.2) mg/dL Glucose 153 H (65-100) mg/dL Calcium 8.0 L (8.4-10.2) mg/dL Adrenal panel 10/16/21 Range/Units 04:00 Sodium 139 (137-145) mmol/L Potassium 4.5 (3.6-5.0) mmol/L Chloride 102.9 (98-107) mmol/L Carbon Dioxide 27 (22-30) mmol/L BUN 31 H (7-17) mg/dL Creatinine 1.0 (0.6-1.2) mg/dL Glucose 153 H (65-100) mg/dL Calcium 8.0 L (8.4-10.2) mg/dL Total Bilirubin 0.20 (0.1-1.2) mg/dL AST 18 (5-40) units/L ALT 8 (7-56) units/L Alkaline Phosphatase 48 (35-129) units/L Total Protein 5.5 L (6.3-8.2) g/dL Albumin 1.9 L (3.9-5) g/dL
--- NOTE | 2021-10-16 16:32 | Ultrasound Report ---
ULTRASOUND RENAL INDICATION / CLINICAL INFORMATION: LEFT HYDRONEPHROSIS. COMPARISON: CT abdomen/pelvis from 10/11/2021 FINDINGS: RIGHT KIDNEY: Length = 11.5 cm. - Echogenicity: Normal. - Parenchymal Thickness: Normal. - Hydronephrosis: None. - Cyst / Mass: None. - Stones: None seen. LEFT KIDNEY: Length = 10.2 cm. - Echogenicity: Normal. - Parenchymal Thickness: Normal. - Hydronephrosis: None. - Cyst / Mass: None. - Stones: None seen. URINARY BLADDER: No significant abnormality. FREE FLUID: None. ADDITIONAL FINDINGS: None. IMPRESSION: 1. No acute abnormality identified on this exam. Punctate nonobstructive nephrolithiasis bilaterally and tiny cysts on the left were not demonstrated on this exam. Signer Name: Efrain Cohen MD Signed: 10/16/2021 4:27 PM Workstation Name: [id number]
[2021-10-16] MEDS ORDERED: TOTAL PARENTERAL NUTRITION 1,999.92 ML IV SCH (20:00)
[2021-10-17] MEDS: metroNIDAZOLE/NS 500 MG/100 ML 500 MG/100 ML BAG IV SCH ×4 (00:09→16:22)
[2021-10-17] MEDS: INSULIN REGULAR, HUMAN 100 UNITS/1 ML SUB-Q SCH ×4 (00:10→17:34)
[2021-10-17] MEDS: fentaNYL DRIP Premix 2,000 MCG/100 ML BAG IV SCH ×5 (01:07→20:52)
[2021-10-17 05:53] LABS: Hematocrit 21.7 % (30.3-42.9); Hemoglobin 7.2 gm/dl (10.1-14.3); Mean Corpuscular HGB Conc 33 % (30-34); Mean Corpuscular Volume 88 fl (79-97); Platelet Count 526 K/mm3 (140-440); Red Blood Count 2.46 M/mm3 (3.65-5.03); Red Cell Distribution Width 17.4 % (13.2-15.2)
[2021-10-17 05:56] LABS: BUN/Creatinine Ratio 36; Blood Urea Nitrogen 29 mg/dL (7-17); Calcium 7.5 mg/dL (8.4-10.2); Hemolysis Index 1
--- NOTE | 2021-10-17 09:01 | Progress Note ---
Assessment and Plan - Patient Problems (1) Acute renal failure Current Visit: Yes Status: Resolved Plan to address problem: Overall renal function has stabilized over the last couple of days. Will monitor closely. Avoid all nephrotoxins and maintain mean arterial pressures above 65 mmHg. She did undergo cystoscopy with bilateral retropyelogram along with bilateral external ureteral stent placement with adequate urine output noted in Doss postoperatively. We will continue to follow closely. (2) Acute respiratory failure with hypoxia Current Visit: Yes Status: Acute Plan to address problem: Patient intubated at this time. Ventilator management per ICU team. CT chest reviewed and concerning for worsening bilateral opacities secondary to pneumonia versus fluid overload and pulmonary edema. patient with excellent urien output currently on Fio2 30 %. no need for further lasix at this time. (3) Sepsis Current Visit: Yes Status: Acute Plan to address problem: Daptomycin was changed to linezolid today due to poor response/possible pneumonia. pt continued on metronidazole. please ensure that the ABXs are dosed for current renal function (4) Appendicitis with perforation Current Visit: Yes Status: Acute Plan to address problem: Status post left hemicolectomy with appendectomy Complicated by CT evidence of extraluminal gas in a contained collection,s/p CT guided drainage. Now with concerns of dehiscence of surgical suture lines in colon,s/p ex-lap and diverting ileostomy. (5) Hypokalemia Current Visit: Yes Status: Acute Plan to address problem: resolved (6) Anemia Current Visit: Yes Status: Acute Plan to address problem: Transfuse with PRBCs prn to target Hb > 7 (7) Hypoalbuminemia due to protein-calorie malnutrition Current Visit: Yes Status: Acute Plan to address problem: on TPN for now Subjective Date of service: 10/17/21 Principal diagnosis: Septic shock; AHRF; PNA; BRYANNA; s/p appendectomy; VRE infection; Peritonitis Interval history: patient remains intubated, off sedation this AM, follow commands, on minimal vent settings. Objective - Vital Signs Vital signs: Vital Signs - 12hr 10/16/21 10/16/21 10/16/21 20:00 20:30 21:00 Temperature Pulse Rate 103 H 88 84 Pulse Rate [ 84 From Monitor] Respiratory 14 12 13 Rate Blood Pressure 128/76 123/75 128/76 O2 Sat by Pulse 100 100 100 Oximetry 0310/16/21 10/16/21 21:31 21:46 22:00 Temperature Pulse Rate 109 H 88 87 Pulse Rate [ From Monitor] Respiratory 12 13 13 Rate Blood Pressure 161/94 161/94 O2 Sat by Pulse 100 98 99 Oximetry 10/16/21 10/16/21 10/16/21 22:30 23:00 23:29 Temperature Pulse Rate 88 84 90 Pulse Rate [ From Monitor] Respiratory 12 12 13 Rate Blood Pressure 127/76 122/73 127/76 O2 Sat by Pulse 100 99 100 Oximetry 10/16/21 10/17/21 10/17/21 23:30 00:00 00:30 Temperature 99.2 F Pulse Rate 88 85 79 Pulse Rate [ 85 From Monitor] Respiratory 13 13 12 Rate Blood Pressure 127/76 127/76 127/67 O2 Sat by Pulse 100 100 100 Oximetry 10/17/21 10/17/21 10/17/21 00:46 01:00 01:30 Temperature Pulse Rate 80 75 81 Pulse Rate [ From Monitor] Respiratory 12 13 Rate Blood Pressure 127/67 118/63 119/66 O2 Sat by Pulse 100 100 100 Oximetry 10/17/21 10/17/21 10/17/21 03:00 03:05 04:00 Temperature 99.0 F Pulse Rate 79 80 75 Pulse Rate [ 81 From Monitor] Respiratory 14 13 13 Rate Blood Pressure 122/67 119/66 121/68 O2 Sat by Pulse 100 100 100 Oximetry 10/17/21 10/17/21 10/17/21 04:30 05:00 05:30 Temperature Pulse Rate 76 74 79 Pulse Rate [ From Monitor] Respiratory 12 12 12 Rate Blood Pressure 125/71 121/68 122/70 O2 Sat by Pulse 100 100 100 Oximetry 10/17/21 10/17/21 10/17/21 06:00 06:31 07:00 Temperature Pulse Rate 74 102 H 92 H Pulse Rate [ From Monitor] Respiratory 12 9 L 11 L Rate Blood Pressure 121/64 146/85 156/86 O2 Sat by Pulse 99 100 100 Oximetry 10/17/21 10/17/21 10/17/21 07:17 07:30 07:44 Temperature 99.5 F Pulse Rate 98 H 92 H Pulse Rate [ From Monitor] Respiratory 12 Rate Blood Pressure 155/92 155/92 O2 Sat by Pulse 100 100 Oximetry 10/17/21 10/17/21 08:00 08:30 Temperature Pulse Rate 100 H 95 H Pulse Rate [ 95 H From Monitor] Respiratory 12 12 Rate Blood Pressure 158/91 140/85 O2 Sat by Pulse 100 100 Oximetry - General Appearance General appearance: well-developed, appears stated age, intubated EENT: ATNC, PERRL, mucous membranes moist Neck: no JVD Respiratory: Present: Clear to Ascultation Cardiology: regular, S1S2 Gastrointestinal: normoactive bowel sounds Integumentary: no rash Neurologic: no focal deficit, CN 3-12 intact Psychiatric: mood/affect appropriate, cooperative - Lab 10/17/21 04:00 10/17/21 04:00 Most recent lab results ABG pH 7.342 pH Units (7.350-7.450) L 10/14/21 10:45 ABG pCO2 49.5 mm Hg 10/14/21 10:45 ABG pO2 96.0 mm Hg (80.0-90.0) H 10/14/21 10:45 ABG HCO3 26.2 mmol/L (20.0-26.0) H 10/14/21 10:45 ABG O2 Saturation 97.2 % (95.0-99.0) 10/14/21 10:45 Calcium 7.5 mg/dL (8.4-10.2) L 10/17/21 04:00 Phosphorus 2.60 mg/dL (2.5-4.5) 10/17/21 04:00 Magnesium 1.90 mg/dL (1.7-2.3) 10/17/21 04:00 Medications & Allergies - Medications Allergies/Adverse Reactions: Allergies No Known Allergies Allergy (Verified 09/24/21 12:21) Home Medications: Home Medications Medication Instructions Recorded Confirmed Last Taken Type No Known Home Medications [No 09/27/21 09/27/21 Unknown History Reported Home Medications] Active Medications: Generic Name Dose Route Start Last Admin Trade Name Freq PRN Reason Stop Dose Admin Acetaminophen 650 mg 10/08/21 21:38 Acetaminophen 325 Mg Tab PO Q6H PRN Pain, Mild (1-3) Albuterol 2.5 mg 09/24/21 18:07 Albuterol 2.5 Mg/3 Ml Nebu IH Q4HRT PRN Shortness Of Breath Dextrose 0 ml 10/03/21 12:37 Dextrose 10% *Hypoglycemia IV PRN PRN Hypoglycemia Diphenhydramine HCl 25 mg 10/04/21 15:14 10/07/21 00:34 Diphenhydramine 50 Mg/Ml Vial IV 25 mg Q6H PRN Administration Itching Famotidine 20 mg 10/08/21 22:00 10/16/21 21:14 Famotidine 20 Mg/2 Ml Inj IV 20 mg BID JAZ Administration Fentanyl 50 mcg 10/08/21 22:10 10/15/21 09:34 Fentanyl 100 Mcg/2 Ml Inj IV 50 mcg Q10MIN PRN Administration ANALGESIA Heparin Sodium (Porcine) 5,000 unit 10/16/21 10:00 10/16/21 21:14 Heparin 5,000 Unit/1 Ml Vial SUB-Q 5,000 unit Q12HR JAZ Administration Hydromorphone HCl 0.25 mg 10/08/21 21:38 Hydromorphone 1 Mg/1 Ml Inj IV Q4H PRN Pain, Moderate (4-6) Hydrophilic Ointment 1 applic 10/08/21 21:00 Lip Therapy Vaseline TP Q2HR PRN Dry Lips Metronidazole 500 mg in 100 mls @ 100 mls/hr 10/02/21 16:00 10/17/21 00:09 Flagyl 500 Mg/100 Ml IV 100 mls/hr Q8H JAZ Administration Protocol Propofol 1,000 mg in 100 mls @ 2.694 mls/hr 10/08/21 21:00 10/17/21 08:52 Diprivan 10 Mg/Ml IV 45 mcg/kg/min TITR JAZ 24.246 mls/hr Titration Protocol 5 MCG/KG/MIN Fentanyl Citrate 2,000 mcg in 100 mls @ 5.36 mls/hr 10/08/21 23:00 10/17/21 06:30 Fentanyl Drip Premix IV 4 mcg/kg/hr TITR JAZ 21.44 mls/hr Administration Protocol 1 MCG/KG/HR Vasopressin 20 unit/ Sodium 101 mls @ 9.09 mls/hr 10/08/21 23:00 10/09/21 14:30 Chloride IV 0 units/min TITR JAZ 0 mls/hr Titration Protocol 0.03 UNITS/MIN NORepinephrine/NS 8 MG-250 ML 8 mg in 250 mls @ 3.75 mls/hr 10/08/21 23:45 Norepinephrine/Ns 8 Mg-250 Ml (Double Conc) IV TITRATE [facility] Protocol 2 MCG/MIN Fluconazole 200 mls @ 100 mls/hr 10/13/21 10:00 10/16/21 10:14 Diflucan IV 100 mls/hr Q24HR [facility] Administration Protocol Amino Acids/Electrolytes/Dextrose 1,999.92 mls @ 83.33 mls/hr 10/16/21 20:00 10/16/21 20:26 Tpn Adult IV 10/17/21 19:59 83.33 mls/hr DAILY@2000 [facility] Administration Protocol Insulin Glargine 5 units 10/13/21 10:00 10/16/21 10:15 Insulin Glargine 100 Units/Ml SUB-Q 5 units QDAY [facility] Administration Insulin Human Regular 0 units 10/10/21 00:00 10/17/21 05:43 Insulin Regular, Human 100 Units/1 Ml SUB-Q Not Given Q6HR [facility] Protocol Labetalol HCl 10 mg 10/01/21 08:31 10/14/21 22:32 Labetalol 20 Mg/4 Ml Inj IV 10 mg Q6H PRN Administration Hypertension Multi-Ingred Cream/Lotion/Oil/Oint 1 applic 10/08/21 21:00 Mineral Oil/Petrolatum, White Ophth Oint 3.5 Gm OU Q4HR PRN Dry Eye(s) Naloxone HCl 0.1 mg 10/03/21 14:00 Naloxone 0.4 Mg/1 Ml Inj IV Q2MIN PRN Res Rate </= 8 or 02 SAT < 92% Ondansetron HCl 4 mg 09/24/21 18:07 10/05/21 11:39 Ondansetron 4 Mg/2 Ml Inj IV 4 mg Q8H PRN Administration Nausea And Vomiting Phenol 1 spray 10/02/21 13:00 10/03/21 10:23 Phenol 1.4% 177 Ml Bottle MM 1 spray PRN PRN Administration Sore Throat Scopolamine 1 each 10/04/21 10:00 10/16/21 10:14 Scopolamine Transdermal Patch 72 Hr TD 1 each Q3D JAZ Administration Sodium Chloride 10 ml 09/24/21 22:00 10/16/21 21:15 Sodium Chloride 0.9% 10 Ml Flush Syringe IV 10 ml BID JAZ Administration Sodium Chloride 10 ml 09/24/21 18:07 09/25/21 08:34 Sodium Chloride 0.9% 10 Ml Flush Syringe IV 10 ml PRN PRN Administration LINE FLUSH
[2021-10-17] MEDS: FLUCONAZOLE 400 MG 200 ML IV SCH (09:03)
[2021-10-17] MEDS: HEPARIN 5,000 UNIT/1 ML VIAL SUB-Q SCH ×2 (09:04→21:02)
[2021-10-17] MEDS: INSULIN GLARGINE 100 UNITS/ML SUB-Q SCH (09:04)
[2021-10-17] MEDS: fentaNYL 100 MCG/2 ML INJ IV PRN ×2 (09:04→17:42)
[2021-10-17] MEDS: FAMOTIDINE 20 MG/2 ML INJ IV SCH ×2 (09:05→21:03)
--- NOTE | 2021-10-17 10:57 | XRay Report ---
CHEST - 1 VIEW INDICATION: sob COMPARISON: 2 days prior FINDINGS: SUPPORT DEVICES: Endotracheal tube is below the level the clavicles near the pablo and should be re tracted 4 cm. Otherwise stable support device positioning. HEART: Stable cardiomediastinal silhouette. LUNGS/PLEURA: Mild patchy airspace disease in the right lung base. Otherwise clear lungs. ADDITIONAL FINDINGS: None. IMPRESSION: 1. Retract the endotracheal tube 4 cm. 2. Lung findings as above. Signer Name: Efrain Cohen MD Signed: 10/17/2021 10:53 AM Workstation Name: [id number]
--- NOTE | 2021-10-17 10:57 | Progress Note ---
Assessment and Plan - Patient Problems (1) Acute renal failure Current Visit: Yes Status: Resolved Qualifiers: Acute renal failure type: unspecified Qualified Code(s): N17.9 - Acute kidney failure, unspecified Plan to address problem: From a urologic perspective, patient is doing well. Good urine output and normal renal ultrasound. Ok to remove Doss per primary team. Call with questions. Subjective Date of service: 10/17/21 Principal diagnosis: Septic shock; AHRF; PNA; BRYANNA; s/p appendectomy; VRE infection; Peritonitis Interval history: No acute change. Still intubated and sedated. Urine clear. Renal ultrasound does not show any hydronephrosis. Objective - Constitutional Vitals: Vital Signs - 12hr 10/16/21 10/16/21 10/16/21 22:00 22:30 23:00 Temperature Pulse Rate 87 88 84 Pulse Rate [ From Monitor] Respiratory 13 12 12 Rate Blood Pressure 161/94 127/76 122/73 O2 Sat by Pulse 99 100 99 Oximetry 10/16/21 10/16/21 10/17/21 23:29 23:30 00:00 Temperature 99.2 F Pulse Rate 90 88 85 Pulse Rate [ 85 From Monitor] Respiratory 13 13 13 Rate Blood Pressure 127/76 127/76 127/76 O2 Sat by Pulse 100 100 100 Oximetry 10/17/21 10/17/21 10/17/21 00:30 00:46 01:00 Temperature Pulse Rate 79 80 75 Pulse Rate [ From Monitor] Respiratory 12 12 Rate Blood Pressure 127/67 127/67 118/63 O2 Sat by Pulse 100 100 100 Oximetry 10/17/21 10/17/21 10/17/21 01:30 03:00 03:05 Temperature Pulse Rate 81 79 80 Pulse Rate [ From Monitor] Respiratory 13 14 13 Rate Blood Pressure 119/66 122/67 119/66 O2 Sat by Pulse 100 100 100 Oximetry 10/17/21 10/17/21 10/17/21 04:00 04:30 05:00 Temperature 99.0 F Pulse Rate 75 76 74 Pulse Rate [ 81 From Monitor] Respiratory 13 12 12 Rate Blood Pressure 121/68 125/71 121/68 O2 Sat by Pulse 100 100 100 Oximetry 10/17/21 10/17/21 10/17/21 05:30 06:00 06:31 Temperature Pulse Rate 79 74 102 H Pulse Rate [ From Monitor] Respiratory 12 12 9 L Rate Blood Pressure 122/70 121/64 146/85 O2 Sat by Pulse 100 99 100 Oximetry 10/17/21 10/17/21 10/17/21 07:00 07:17 07:30 Temperature 99.5 F Pulse Rate 92 H 98 H Pulse Rate [ From Monitor] Respiratory 11 L 12 Rate Blood Pressure 156/86 155/92 O2 Sat by Pulse 100 100 Oximetry 10/17/21 10/17/21 10/17/21 07:44 08:00 08:30 Temperature Pulse Rate 92 H 100 H 95 H Pulse Rate [ 95 H From Monitor] Respiratory 12 12 Rate Blood Pressure 155/92 158/91 140/85 O2 Sat by Pulse 100 100 100 Oximetry 10/17/21 10/17/21 10/17/21 09:00 09:30 10:00 Temperature Pulse Rate 111 H 88 85 Pulse Rate [ From Monitor] Respiratory 12 17 17 Rate Blood Pressure 163/93 122/67 120/64 O2 Sat by Pulse 99 97 94 Oximetry 10/17/21 10:30 Temperature Pulse Rate 83 Pulse Rate [ From Monitor] Respiratory 12 Rate Blood Pressure 118/68 O2 Sat by Pulse 99 Oximetry General appearance: Present: other (Intubated and sedated) - EENT Eyes: PERRL, EOM intact - Neck Neck: supple, normal ROM Extremities: no ischemia - Gastrointestinal General gastrointestinal: Present: deferred - Genitourinary Female genitourinary: other (Doss catheter in placed, draining clear urine) - Integumentary Integumentary: clear, warm, dry - Labs CBC & Chem 7: 10/17/21 04:00 10/17/21 04:00 Labs: Abnormal lab results 10/16/21 10/16/21 10/16/21 Range/Units 11:45 17:37 23:48 WBC (4.5-11.0) K/mm3 RBC (3.65-5.03) M/mm3 Hgb (10.1-14.3) gm/dl Hct (30.3-42.9) % RDW (13.2-15.2) % Plt Count (140-440) K/mm3 BUN (7-17) mg/dL Glucose (65-100) mg/dL POC Glucose 144 H 130 H 134 H (70-105) mg/dL Calcium (8.4-10.2) mg/dL 10/17/21 10/17/21 10/17/21 Range/Units 04:00 04:00 05:37 WBC 14.0 H (4.5-11.0) K/mm3 RBC 2.46 L (3.65-5.03) M/mm3 Hgb 7.2 L (10.1-14.3) gm/dl Hct 21.7 L (30.3-42.9) % RDW 17.4 H (13.2-15.2) % Plt Count 526 H (140-440) K/mm3 BUN 29 H (7-17) mg/dL Glucose 138 H (65-100) mg/dL POC Glucose 137 H (70-105) mg/dL Calcium 7.5 L (8.4-10.2) mg/dL Medications & Allergies - Medications Allergies/Adverse Reactions: Allergies No Known Allergies Allergy (Verified 09/24/21 12:21) Home Medications: Home Medications Medication Instructions Recorded Confirmed Last Taken Type No Known Home Medications [No 09/27/21 09/27/21 Unknown History Reported Home Medications] Active Medications: Generic Name Dose Route Start Last Admin Trade Name Freq PRN Reason Stop Dose Admin Acetaminophen 650 mg 10/08/21 21:38 Acetaminophen 325 Mg Tab PO Q6H PRN Pain, Mild (1-3) Albuterol 2.5 mg 09/24/21 18:07 Albuterol 2.5 Mg/3 Ml Nebu IH Q4HRT PRN Shortness Of Breath Dextrose 0 ml 10/03/21 12:37 Dextrose 10% *Hypoglycemia IV PRN PRN Hypoglycemia Diphenhydramine HCl 25 mg 10/04/21 15:14 10/07/21 00:34 Diphenhydramine 50 Mg/Ml Vial IV 25 mg Q6H PRN Administration Itching Famotidine 20 mg 10/08/21 22:00 10/17/21 09:05 Famotidine 20 Mg/2 Ml Inj IV 20 mg BID JAZ Administration Fentanyl 50 mcg 10/08/21 22:10 10/17/21 09:04 Fentanyl 100 Mcg/2 Ml Inj IV 50 mcg Q10MIN PRN Administration ANALGESIA Heparin Sodium (Porcine) 5,000 unit 10/16/21 10:00 10/17/21 09:04 Heparin 5,000 Unit/1 Ml Vial SUB-Q 5,000 unit Q12HR JAZ Administration Hydromorphone HCl 0.25 mg 10/08/21 21:38 Hydromorphone 1 Mg/1 Ml Inj IV Q4H PRN Pain, Moderate (4-6) Hydrophilic Ointment 1 applic 10/08/21 21:00 Lip Therapy Vaseline TP Q2HR PRN Dry Lips Metronidazole 500 mg in 100 mls @ 100 mls/hr 10/02/21 16:00 10/17/21 09:08 Flagyl 500 Mg/100 Ml IV 100 mls/hr Q8H JAZ Administration Protocol Propofol 1,000 mg in 100 mls @ 2.694 mls/hr 10/08/21 21:00 10/17/21 08:52 Diprivan 10 Mg/Ml IV 45 mcg/kg/min TITR JAZ 24.246 mls/hr Titration Protocol 5 MCG/KG/MIN Fentanyl Citrate 2,000 mcg in 100 mls @ 5.36 mls/hr 10/08/21 23:00 10/17/21 06:30 Fentanyl Drip Premix IV 4 mcg/kg/hr TITR JAZ 21.44 mls/hr Administration Protocol 1 MCG/KG/HR Vasopressin 20 unit/ Sodium 101 mls @ 9.09 mls/hr 10/08/21 23:00 10/09/21 14:30 Chloride IV 0 units/min TITR JAZ 0 mls/hr Titration Protocol 0.03 UNITS/MIN NORepinephrine/NS 8 MG-250 ML 8 mg in 250 mls @ 3.75 mls/hr 10/08/21 23:45 Norepinephrine/Ns 8 Mg-250 Ml (Double Conc) IV TITRATE JAZ Protocol 2 MCG/MIN Fluconazole 200 mls @ 100 mls/hr 10/13/21 10:00 10/17/21 09:03 Diflucan IV 100 mls/hr Q24HR [facility] Administration Protocol Amino Acids/Electrolytes/Dextrose 1,999.92 mls @ 83.33 mls/hr 10/16/21 20:00 10/16/21 20:26 Tpn Adult IV 10/17/21 19:59 83.33 mls/hr DAILY@2000 [facility] Administration Protocol Insulin Glargine 5 units 10/13/21 10:00 10/17/21 09:04 Insulin Glargine 100 Units/Ml SUB-Q 5 units QDAY JAZ Administration Insulin Human Regular 0 units 10/10/21 00:00 10/17/21 05:43 Insulin Regular, Human 100 Units/1 Ml SUB-Q Not Given Q6HR [facility] Protocol Labetalol HCl 10 mg 10/01/21 08:31 10/14/21 22:32 Labetalol 20 Mg/4 Ml Inj IV 10 mg Q6H PRN Administration Hypertension Multi-Ingred Cream/Lotion/Oil/Oint 1 applic 10/08/21 21:00 Mineral Oil/Petrolatum, White Ophth Oint 3.5 Gm OU Q4HR PRN Dry Eye(s) Naloxone HCl 0.1 mg 10/03/21 14:00 Naloxone 0.4 Mg/1 Ml Inj IV Q2MIN PRN Res Rate </= 8 or 02 SAT < 92% Ondansetron HCl 4 mg 09/24/21 18:07 10/05/21 11:39 Ondansetron 4 Mg/2 Ml Inj IV 4 mg Q8H PRN Administration Nausea And Vomiting Phenol 1 spray 10/02/21 13:00 10/03/21 10:23 Phenol 1.4% 177 Ml Bottle MM 1 spray PRN PRN Administration Sore Throat Scopolamine 1 each 10/04/21 10:00 10/16/21 10:14 Scopolamine Transdermal Patch 72 Hr TD 1 each Q3D JAZ Administration Sodium Chloride 10 ml 09/24/21 22:00 10/17/21 09:05 Sodium Chloride 0.9% 10 Ml Flush Syringe IV 10 ml BID JAZ Administration Sodium Chloride 10 ml 09/24/21 18:07 09/25/21 08:34 Sodium Chloride 0.9% 10 Ml Flush Syringe IV 10 ml PRN PRN Administration LINE FLUSH
[2021-10-17] MEDS ORDERED: SODIUM CHLORIDE 0.9% 500 ML 500 ML IV NR (11:00)
--- NOTE | 2021-10-17 11:19 | Progress Note ---
Assessment and Plan Assessment and plan: This is a 31-year-old female with obesity and nephrolithiasis admitted with pericolonic abscess secondary to contained perforated diverticulitis, peritonitis complicated by acute blood loss anemia, acute kidney injury and acute hypoxic respiratory failure. Neuro: Sedated -Sedated with propofol and fentanyl -RASS goal -1 to -2 -Avoid delirium -Reorientation as needed -Maintain sleep-wake cycle -Daily SAT as appropriate -Bilateral soft restraints in place for patient safety Cardiac: NAD -Blood pressure monitoring per protocol -s/p vasopressor support with Levophed and vasopressin -MAP goal greater than 65 -Echocardiogram shows normal right ventricular function, LVEF 55 to 60% Respiratory: Acute hypoxic respiratory failure -[facility] consulted, appreciate recommendations -Intubated s/p code met on 10/08 with 7.50 ETT at 24 the lips -A.m. vent settings: Assist-control rate 12, tidal volume 425, PEEP 6, FiO2 30% -hold off weaning vent till abd closure -A.m. 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, diverticulitis with abscess, moderate protein calorie malnutrition, h/o obesity -Surgery consulted, appreciate recommendations -S/p washout of pericolonic abscess on 09/26/2021 -S/p open left hemicolectomy, appendectomy and partial omentectomy on 10/01 -10/09 CT abdomen/pelvis showed a new collection of air within the left midabdomen -Scheduled for CT guided drain placement with IR -IR findings: Fluid collections abutting the colonic anastamosis and drain passed into the colon originally requiring retraction into the fluid collection, left mild to moderate hydronephrosis, 700 ml brown serous fluid from the mid a bdominal drain (drain #1), 200 mL brown thick fluid from the left lateral drain (drain #2) -24 hours: -1907 mL -Left lateral abdomen 150 mL -Medial abdomen 1030 mL -PPI -TPN -NGT to LIS 50 ml : Acute kidney injury secondary to vasomotor nephropathy versus contrast induced, Possible Bladder injury -Nephrology and urology consulted, appreciate recommendations -Strict intake and output -Renally dose medications -Avoid nephrotoxic medications -Daily weights -s/p IV Lasix nephrology -Trend BMP -Repeat magnesium -S/p bilateral ureteral stents -10/12 Intra-Op cystoscopy completed and bilateral ureteral stents placed (removed 10/13) -Per urology repeat renal ultrasound ID: Acute sepsis secondary to pericolonic abscess with appendiceal rupture fistulization, peritonitis, VRE and jean marie albicans in wound culture -Infectious disease consulted, appreciate recommendations -COVID 19 PCR negative -S/p drain placement and diagnostic laparotomy on 09/26 -Antibiotic therapy with Flagyl and fluconazole -f/u blood culture -Monitor WBC and temperature curve Endo: NAD -Avoid hypoglycemia -SSI -Accu-Cheks q6 -Long-acting insulin, titrate as needed Heme: Acute blood loss anemia, elevated D-dimer, hematuria, leukocytosis, thrombocytosis -Patient had hematuria after ureteral injury sustained from surgical procedures -Urology consulted, appreciate recommendation -10/09 CTA chest with no evidence of PE. Findings suggesting multifocal pneumonia vs pulmonary edema -Bilateral lower extremity Doppler ultrasound shows no sonographic evidence of DVT however shows subcutaneous edema in lower extremities -Trend CBC -Transfuse hemoglobin less than 7 -S/p 6 units PRBC -Monitor for signs of bleeding -SCDs to BLE while in bed -Heparin subq The high probability of a clinically significant, sudden or life threatening deterioration of the [multi] system(s) required my full and direct attention, intervention and personal management. The aggregate critical care time was [60] minutes. This time is in addition to time spent performing reported procedures but includes the following: [x] Data Review and interpretation [x] Patient assessment and monitoring of vital signs [x] Documentation [x] Medication orders and management Disposition Plan: icu Total Time Spent with Patient (Minutes): 60 History Interval history: This is a 31-year-old female with obesity and nephrolithiasis admitted with complaints of abdominal pain, lower back pain, nausea no with episodes of vomiting over the past dayon 09/24. Patient underwent a CT scan of the abdomen and pelvis and was found to have acute diverticulitis complicated by sepsis and was admitted to the medical floor initiated sepsis protocol. Surgery team was consulted in the emergency department. ICU Course to Date: 10/09: Intubated and sedated, RASS -1 to -2. Recent CXR noted with worsen bilateral opacities with persistent leukocytosis, elevated lactic, and now on 2 pressors. Patient remains afebrile, and already on IV Abx per ID. Will swab patient for COVID. Given recent surgery orders placed for CTA chest, CT Abd/plevis. And also BLE dopplers due to elevated D-Dimer. Renal function is improving, additional IVF to flush out kidney post contrast, Nephrology is also following. Continue TPN and NGT to LIS. 10/10: COVID PCR negative. CTA chest and Abd/plevis noted. No evidence of PE. Patient received X1 dose of 20mg IV lasix per Nephro for pulmonary edema, this am CXR with some improvement, renal function is also improving. Wean vent settin g as tolerated per CCM. Plan for possible CT guided drainage placement in IR tomorrow. Continue TPN and NGT to LIS. 10/11: Patient with anemia, 1 unit PRBC, scheduled for CT-guided drain image of air pocket. Will place on CPAP on return. Slightly worsening renal function but nephrology is on the case. 10/12: Taken to OR today for diverting ileostomy, given 3 units PRBC yesterday and appropriate response. Surgical culture grew yeast and ID added added fluconazole. 10/13: Hypomagnesemia repleted, renal function improving. Patient remains sedated with fentanyl and propofol. Updated sister and father at bedside. Ureteral stents removed at bedside. Plan to to take patient to the OR tomorrow for second look, abdominal washout, colostomy creation on hold for abdominal closure by surgery. We will hold p.m. dose of heparin. 10/14: Plan to take patient back to OR today, prophylactic anticougulation on hold. 2 units prbc on hold for surgery. Plan to close abd and colostomy creation. Vent weaning on hold till abd closure 10/15: Renal function remains stable, leukocytosis increased, remains sedated on propofol and fentanyl and on mechanical ventilation. Plan is to hold SBT until the weekend. Repeat renal ultrasound pending per urology. 10/16: no acute events overnight. remains on fent and propofol. plan to sbt on monday. 10/17: noted drop in hgb from 8 to 7.2 and will given one unit prbc. remains on fent/propofol. CARMEN overnight. Will retract OETT per rad reading. Hospitalist Physical - Constitutional Vitals: Temp Pulse Resp BP Pulse Ox 99.5 F 83 12 118/68 99 10/17/21 07:17 10/17/21 10:30 10/17/21 10:30 10/17/21 10:30 10/17/21 10:30 General appearance: Present: other (intubated and sedated) - EENT Eyes: Present: PERRL, EOM intact ENT: hearing intact, clear oral mucosa, dentition normal - Neck Neck: Present: normal ROM - Respiratory Respiratory effort: normal Respiratory: bilateral: CTA, diminished - Cardiovascular Rhythm: regular Heart Sounds: Present: S1 & S2. Absent: systolic murmur, diastolic murmur - Extremities Extremities: no ischemia, pulses intact, pulses symmetrical, No edema, normal temperature, normal color Peripheral Pulses: within normal limits - Abdominal General gastrointestinal: soft, non-tender, hypoactive bowel sounds - Integumentary Integumentary: Present: warm, dry - Psychiatric Psychiatric: appropriate mood/affect, cooperative - Neurologic Neurologic: CNII-XII intact, no focal deficits, moves all extremities - Allied Health Allied health notes reviewed: nursing, RT Results - Labs CBC & Chem 7: 10/17/21 04:00 10/17/21 04:00 Labs: Laboratory Last Values WBC 14.0 K/mm3 (4.5-11.0) H 10/17/21 04:00 RBC 2.46 M/mm3 (3.65-5.03) L 10/17/21 04:00 Hgb 7.2 gm/dl (10.1-14.3) L 10/17/21 04:00 Hct 21.7 % (30.3-42.9) L 10/17/21 04:00 MCV 88 fl (79-97) 10/17/21 04:00 MCH 29 pg (28-32) 10/17/21 04:00 MCHC 33 % (30-34) 10/17/21 04:00 RDW 17.4 % (13.2-15.2) H 10/17/21 04:00 Plt Count 526 K/mm3 (140-440) H 10/17/21 04:00 [place] % (Auto) 5.9 % (0.0-7.3) 09/28/21 04:55 Eos % (Auto) 0.4 % (0.0-4.3) 09/28/21 04:55 [place] # (Auto) 0.9 K/mm3 (0.0-0.8) H 09/28/21 04:55 Eos # (Auto) 0.1 K/mm3 (0.0-0.4) 09/28/21 04:55 Baso # (Auto) 0.0 K/mm3 (0.0-0.1) 09/28/21 04:55 Add Manual Diff Complete 10/09/21 05:31 Total Counted 100 10/09/21 05:31 Seg Neutrophils % Business Unit Manager 10/03/21 04:55 Seg Neuts % (Manual) 88.0 % (40.0-70.0) H 10/09/21 05:31 Band Neutrophils % 0 % 10/09/21 05:31 Lymphocytes % (Manual) 3.0 % (13.4-35.0) L 10/09/21 05:31 Reactive Lymphs % (Man) 1.0 % 10/09/21 05:31 Monocytes % (Manual) 6.0 % (0.0-7.3) 10/09/21 05:31 Eosinophils % (Manual) 2.0 % (0.0-4.3) 10/09/21 05:31 Basophils % (Manual) 0 % (0.0-1.8) 10/09/21 05:31 Metamyelocytes % 0 % 10/09/21 05:31 Myelocytes % 0 % 10/09/21 05:31 Promyelocytes % 0 % 10/09/21 05:31 Blast Cells % 0 % 10/09/21 05:31 Nucleated RBC % Not Reportable 10/09/21 05:31 Seg Neutrophils # 14.0 K/mm3 (1.8-7.7) H 09/28/21 04:55 Seg Neutrophils # Man 17.9 K/mm3 (1.8-7.7) H 10/09/21 05:31 Band Neutrophils # 0.0 K/mm3 10/09/21 05:31 Lymphocytes # (Manual) 0.6 K/mm3 (1.2-5.4) L 10/09/21 05:31 Abs React Lymphs (Man) 0.2 K/mm3 10/09/21 05:31 Monocytes # (Manual) 1.2 K/mm3 (0.0-0.8) H 10/09/21 05:31 Eosinophils # (Manual) 0.4 K/mm3 (0.0-0.4) 10/09/21 05:31 Basophils # (Manual) 0.0 K/mm3 (0.0-0.1) 10/09/21 05:31 Metamyelocytes # 0.0 K/mm3 10/09/21 05:31 Myelocytes # 0.0 K/mm3 10/09/21 05:31 Promyelocytes # 0.0 K/mm3 10/09/21 05:31 Blast Cells # 0.0 K/mm3 10/09/21 05:31 Pathologist Review 09/24/21 14:58 WBC Morphology Not Reportable 10/09/21 05:31 Hypersegmented Neuts Not Reportable 10/09/21 05:31 Hyposegmented Neuts Not Reportable 10/09/21 05:31 Hypogranular Neuts Not Reportable 10/09/21 05:31 Smudge Cells Not Reportable 10/09/21 05:31 Toxic Granulation Not Reportable 10/09/21 05:31 Toxic Vacuolation Not Reportable 10/09/21 05:31 Dohle Bodies Not Reportable 10/09/21 05:31 Pelger-Huet Anomaly Not Reportable 10/09/21 05:31 Marlene Rods Not Reportable 10/09/21 05:31 Platelet Estimate Consistent w auto 10/09/21 05:31 Clumped Platelets Not Reportable 10/09/21 05:31 Plt Clumps, EDTA Not Reportable 10/09/21 05:31 Large Platelets Not Reportable 10/09/21 05:31 Giant Platelets Not Reportable 10/09/21 05:31 Platelet Satelliting Not Reportable 10/09/21 05:31 Plt Morphology Comment Not Reportable 10/09/21 05:31 RBC Morphology Not Reportable 10/09/21 05:31 Dimorphic RBCs Not Reportable 10/09/21 05:31 Polychromasia Not Reportable 10/09/21 05:31 Hypochromasia Not Reportable 10/09/21 05:31 Poikilocytosis Not Reportable 10/09/21 05:31 Anisocytosis 1+ 10/09/21 05:31 Microcytosis Not Reportable 10/09/21 05:31 Macrocytosis Not Reportable 10/09/21 05:31 Spherocytes Not Reportable 10/09/21 05:31 Pappenheimer Bodies Not Reportable 10/09/21 05:31 Sickle Cells Not Reportable 10/09/21 05:31 Target Cells Not Reportable 10/09/21 05:31 Tear Drop Cells Not Reportable 10/09/21 05:31 Ovalocytes Not Reportable 10/09/21 05:31 Helmet Cells Not Reportable 10/09/21 05:31 [place] Bodies Not Reportable 10/09/21 05:31 [place] Rings Not Reportable 10/09/21 05:31 Anusha Cells Not Reportable 10/09/21 05:31 Bite Cells Not Reportable 10/09/21 05:31 Crenated Cell Not Reportable 10/09/21 05:31 Elliptocytes Not Reportable 10/09/21 05:31 Acanthocytes (Spur) Not Reportable 10/09/21 05:31 Rouleaux Not Reportable 10/09/21 05:31 Hemoglobin C Crystals Not Reportable 10/09/21 05:31 Schistocytes Not Reportable 10/09/21 05:31 Malaria parasites Not Reportable 10/09/21 05:31 Flaco Bodies Not Reportable 10/09/21 05:31 Hem Pathologist Commnt No 10/09/21 05:31 PT 19.0 Sec. (12.2-14.9) H 10/14/21 04:05 INR 1.41 (0.87-1.13) H 10/14/21 04:05 APTT 33.9 Sec. (24.2-36.6) 10/14/21 04:05 D-Dimer > 18705 ng/mlDDU (0-234) H 10/09/21 08:45 ABG pH 7.342 pH Units (7.350-7.450) L 10/14/21 10:45 ABG pCO2 49.5 mm Hg 10/14/21 10:45 ABG pO2 96.0 mm Hg (80.0-90.0) H 10/14/21 10:45 ABG HCO3 26.2 mmol/L (20.0-26.0) H 10/14/21 10:45 ABG O2 Saturation 97.2 % (95.0-99.0) 10/14/21 10:45 ABG O2 Content 8.4 (0.0-44) 10/14/21 10:45 ABG Base Excess 0.4 mmol/L (-2.0-3.0) 10/14/21 10:45 ABG Hemoglobin 6.1 gm/dl (12.0-16.0) L 10/14/21 10:45 ABG Carboxyhemoglobin 1.8 % (0.0-5.0) 10/14/21 10:45 ABG Methemoglobin 0.5 % (0.0-1.5) 10/14/21 10:45 Oxyhemoglobin 94.9 % (95.0-99.0) L 10/14/21 10:45 FiO2 30 % 10/14/21 10:45 Sodium 138 mmol/L (137-145) 10/17/21 04:00 Potassium 4.1 mmol/L (3.6-5.0) 10/17/21 04:00 Chloride 101.3 mmol/L (98-107) 10/17/21 04:00 Carbon Dioxide 30 mmol/L (22-30) 10/17/21 04:00 Anion Gap 11 mmol/L 10/17/21 04:00 BUN 29 mg/dL (7-17) H 10/17/21 04:00 Creatinine 0.8 mg/dL (0.6-1.2) 10/17/21 04:00 Estimated GFR > 60 ml/min 10/17/21 04:00 BUN/Creatinine Ratio 36 % 10/17/21 04:00 Glucose 138 mg/dL (65-100) H 10/17/21 04:00 POC Glucose 137 mg/dL (70-105) H 10/17/21 05:37 Lactic Acid 1.80 mmol/L (0.7-2.0) 10/10/21 04:10 Calcium 7.5 mg/dL (8.4-10.2) L 10/17/21 04:00 Phosphorus 2.60 mg/dL (2.5-4.5) 10/17/21 04:00 Magnesium 1.90 mg/dL (1.7-2.3) 10/17/21 04:00 Ferritin 751.9 ng/mL (10.0-200.0) H 10/09/21 05:31 Total Bilirubin 0.20 mg/dL (0.1-1.2) 10/16/21 04:00 AST 18 units/L (5-40) 10/16/21 04:00 ALT 8 units/L (7-56) 10/16/21 04:00 Alkaline Phosphatase 48 units/L (35-129) 10/16/21 04:00 Lactate Dehydrogenase 472 units/L (91-180) H 10/09/21 05:31 Total Creatine Kinase 45 units/L (30-135) 10/13/21 04:05 C-Reactive Protein 15.90 mg/dL (0.00-1.30) H 10/09/21 05:31 Total Protein 5.5 g/dL (6.3-8.2) L 10/16/21 04:00 Albumin 1.9 g/dL (3.9-5) L 10/16/21 04:00 Albumin/Globulin Ratio 0.5 % 10/16/21 04:00 Triglycerides 80 mg/dL (2-149) 10/14/21 04:05 Procalcitonin 12.98 ng/mL (<0.15) 10/09/21 05:31 Urine Color Yellow (Yellow) 09/24/21 14:49 Urine Turbidity Slightly-cloudy (Clear) 09/24/21 14:49 Urine pH 6.0 (5.0-7.0) 09/24/21 14:49 Ur Specific [place] 1.017 (1.003-1.030) 09/24/21 14:49 Urine Protein 30 mg/dl mg/dL (Negative) 09/24/21 14:49 Urine Glucose (UA) Neg mg/dL (Negative) 09/24/21 14:49 Urine Ketones Neg mg/dL (Negative) 09/24/21 14:49 Urine Blood Neg (Negative) 09/24/21 14:49 Urine Nitrite Neg (Negative) 09/24/21 14:49 Ur Reducing Substances Not Reportable 09/24/21 14:49 Urine Bilirubin Neg (Negative) 09/24/21 14:49 Urine Ictotest Not Reportable 09/24/21 14:49 Urine Urobilinogen < 2.0 mg/dL (<2.0) 09/24/21 14:49 Ur Leukocyte Esterase Neg (Negative) 09/24/21 14:49 Urine WBC (Auto) 4.0 /HPF (0.0-6.0) 09/24/21 14:49 Urine RBC (Auto) 2.0 /HPF (0.0-6.0) 09/24/21 14:49 U Epithel Cells (Auto) 18.0 /HPF (0-13.0) H 09/24/21 14:49 Urine Mucus Few /HPF 09/24/21 14:49 Urine HCG, Qual Negative (Negative) 09/24/21 14:49 Coronavirus (PCR) Negative (Negative) 10/09/21 10:15 Blood Type A POSITIVE 10/12/21 06:05 Antibody Screen Negative 10/12/21 06:05 Crossmatch See Detail 10/12/21 06:05 Microbiology: Microbiology 10/11/21 Unknown Abdomen Surgical Culture - Final Jean Marie Albicans Stenotrophomonas Maltophilia 10/11/21 14:52 Abdomen Surgical Culture - Preliminary Jean Marie Albicans Staphylococcus Aureus Doss/IV: Voiding Method Indwelling Catheter Active Medications - Current Medications Current Medications: Generic Name Dose Route Start Last Admin Trade Name Freq PRN Reason Stop Dose Admin Acetaminophen 650 mg 10/08/21 21:38 Acetaminophen 325 Mg Tab PO Q6H PRN Pain, Mild (1-3) Albuterol 2.5 mg 09/24/21 18:07 Albuterol 2.5 Mg/3 Ml Nebu IH Q4HRT PRN Shortness Of Breath Dextrose 0 ml 10/03/21 12:37 Dextrose 10% *Hypoglycemia IV PRN PRN Hypoglycemia Diphenhydramine HCl 25 mg 10/04/21 15:14 10/07/21 00:34 Diphenhydramine 50 Mg/Ml Vial IV 25 mg Q6H PRN Administration Itching Famotidine 20 mg 10/08/21 22:00 10/17/21 09:05 Famotidine 20 Mg/2 Ml Inj IV 20 mg BID JAZ Administration Fentanyl 50 mcg 10/08/21 22:10 10/17/21 09:04 Fentanyl 100 Mcg/2 Ml Inj IV 50 mcg Q10MIN PRN Administration ANALGESIA Heparin Sodium (Porcine) 5,000 unit 10/16/21 10:00 10/17/21 09:04 Heparin 5,000 Unit/1 Ml Vial SUB-Q 5,000 unit Q12HR JAZ Administration Hydromorphone HCl 0.25 mg 10/08/21 21:38 Hydromorphone 1 Mg/1 Ml Inj IV Q4H PRN Pain, Moderate (4-6) Hydrophilic Ointment 1 applic 10/08/21 21:00 Lip Therapy Vaseline TP Q2HR PRN Dry Lips Metronidazole 500 mg in 100 mls @ 100 mls/hr 10/02/21 16:00 10/17/21 09:08 Flagyl 500 Mg/100 Ml IV 100 mls/hr Q8H JAZ Administration Protocol Propofol 1,000 mg in 100 mls @ 2.694 mls/hr 10/08/21 21:00 10/17/21 10:56 Diprivan 10 Mg/Ml IV 45 mcg/kg/min TITR JAZ 24.246 mls/hr Administration Protocol 5 MCG/KG/MIN Fentanyl Citrate 2,000 mcg in 100 mls @ 5.36 mls/hr 10/08/21 23:00 10/17/21 06:30 Fentanyl Drip Premix IV 4 mcg/kg/hr TITR JAZ 21.44 mls/hr Administration Protocol 1 MCG/KG/HR Vasopressin 20 unit/ Sodium 101 mls @ 9.09 mls/hr 10/08/21 23:00 10/09/21 14:30 Chloride IV 0 units/min TITR JAZ 0 mls/hr Titration Protocol 0.03 UNITS/MIN NORepinephrine/NS 8 MG-250 ML 8 mg in 250 mls @ 3.75 mls/hr 10/08/21 23:45 Norepinephrine/Ns 8 Mg-250 Ml (Double Conc) IV TITRATE JAZ Protocol 2 MCG/MIN Fluconazole 200 mls @ 100 mls/hr 10/13/21 10:00 10/17/21 09:03 Diflucan IV 100 mls/hr Q24HR JAZ Administration Protocol Amino Acids/Electrolytes/Dextrose 1,999.92 mls @ 83.33 mls/hr 10/16/21 20:00 10/16/21 20:26 Tpn Adult IV 10/17/21 19:59 83.33 mls/hr DAILY@2000 [facility] Administration Protocol Sodium Chloride 500 mls @ 0 mls/hr 10/17/21 11:00 Nacl 0.9% 500 Ml IV 10/17/21 16:00 ONCE NR As Directed Insulin Glargine 5 units 10/13/21 10:00 10/17/21 09:04 Insulin Glargine 100 Units/Ml SUB-Q 5 units QDAY JAZ Administration Insulin Human Regular 0 units 10/10/21 00:00 10/17/21 05:43 Insulin Regular, Human 100 Units/1 Ml SUB-Q Not Given Q6HR [facility] Protocol Labetalol HCl 10 mg 10/01/21 08:31 10/14/21 22:32 Labetalol 20 Mg/4 Ml Inj IV 10 mg Q6H PRN Administration Hypertension Multi-Ingred Cream/Lotion/Oil/Oint 1 applic 10/08/21 21:00 Mineral Oil/Petrolatum, White Ophth Oint 3.5 Gm OU Q4HR PRN Dry Eye(s) Naloxone HCl 0.1 mg 10/03/21 14:00 Naloxone 0.4 Mg/1 Ml Inj IV Q2MIN PRN Res Rate </= 8 or 02 SAT < 92% Ondansetron HCl 4 mg 09/24/21 18:07 10/05/21 11:39 Ondansetron 4 Mg/2 Ml Inj IV 4 mg Q8H PRN Administration Nausea And Vomiting Phenol 1 spray 10/02/21 13:00 10/03/21 10:23 Phenol 1.4% 177 Ml Bottle MM 1 spray PRN PRN Administration Sore Throat Scopolamine 1 each 10/04/21 10:00 10/16/21 10:14 Scopolamine Transdermal Patch 72 Hr TD 1 each Q3D JAZ Administration Sodium Chloride 10 ml 09/24/21 22:00 10/17/21 09:05 Sodium Chloride 0.9% 10 Ml Flush Syringe IV 10 ml BID JAZ Administration Sodium Chloride 10 ml 09/24/21 18:07 09/25/21 08:34 Sodium Chloride 0.9% 10 Ml Flush Syringe IV 10 ml PRN PRN Administration LINE FLUSH Nutrition/Malnutrition Assess - Dietary Evaluation Nutrition/Malnutrition Findings: Nutrition Notes Start: 09/25/21 15 :31 Freq: Status: Active Protocol: Document 10/16/21 12:43 RS (Rec: 10/16/21 12:48 RS [email or web address]) Nutrition Notes Initial or Follow up Reassessment Current Diagnosis Sepsis,Respiratory Failure Other Pertinent Diagnosis s/p appendectomy, s/p exp lap with colostomy, anemia Current Diet CPN at 83.33 ml/hr Labs/Tests BUN: 31 B Pertinent Medications Propofol at 21.552mL/hr ( provides 569 kcal/day) Height 5 ft 7 in Weight 107.2 kg Noel Body Weight (kg) 61.36 BMI 37.0 Weight Status Obese Subjective/Other Information Day 14 CPN. Pt remains on vent support. Percent of energy/protein needs met: 75% energy 81% pro (meeting 100% energy needs if propofol included) Burn Absent Trauma Absent #1 Nutrition Diagnosis Altered GI function Diagnosis Progress(for reassessment Continues documentation) Is patient on ventilator? Yes Is Patient Ambulatory and/or Out of Bed No REE-([facility]-confined to bed) 2179.332 Kcal/Kg value to use for calculation 16 Approximate Energy Requirements Using 1715 kcal/Kg Calculation Used for Recommendations Kcal/kg Additional Notes Pro needs 2g/kg IBW: 123g/day Fluid needs 1ml/kcal Nutrition Intervention Nutrition Support: Continue CPN at 83.33ml/hr: MVI, 5.5% amino acids, 40mEq K . Osmolality: 1370. Chloride/ Acetate ratio changed to 50/50 . Kcal 1,290 Protein (gm) 110 Carbohydrates (gm) 250 Fat (gm) 0 Fluid (mL) 2,000 % RDI: 74% Kcal; 81% AA. Goal #1 Provide at least 75% of energy /protein needs through PN during LOS. Follow-Up By: 10/17/21 Additional Comments Labs in am: CMP, Mg, Phos F/U: vent status, propofol
--- NOTE | 2021-10-17 14:40 | Progress Note ---
Assessment and Plan 31 yo F s/p -Postop day #3 status post colostomy creation with closure of abdomen. Patient is afebrile and stable with resolving tachycardia. -Postop day #4 status post colorectal anastomosis takedown, with abdominal washout and ABThera wound VAC. -Postop day #6 status post laparoscopic converted to open left hemicolectomy with appendectomy for perforated appendicitis with fistulization to sigmoid colon. Plan: 1. Will continue antibiotics and supportive care. 2. vent management per ICU team. - ok to start weaning vent in am from surgery standpoint 3. We will keep NG tube to low intermittent suction as I anticipate an extensive ileus. Continue TPN 4. DVT ppx 5. Pain control 6. Gi ppx 7. Creatinine has normalized she is making good urine output. Nephro and Uro on board 8. IV abx - ID on board 9. Monitor drains and output 10. Await ostomy function Thank you, please call with questions. Subjective Date of service: 10/17/21 Narrative: Pt seen and examined. Arousable on vent. Afebrile. No acute events. Objective Vital Signs - 12hr 10/17/21 10/17/21 10/17/21 03:00 03:05 04:00 Temperature 99.0 F Pulse Rate 79 80 75 Pulse Rate [ 81 From Monitor] Respiratory 14 13 13 Rate Blood Pressure 122/67 119/66 121/68 O2 Sat by Pulse 100 100 100 Oximetry 10/17/21 10/17/21 10/17/21 04:30 05:00 05:30 Temperature Pulse Rate 76 74 79 Pulse Rate [ From Monitor] Respiratory 12 12 12 Rate Blood Pressure 125/71 121/68 122/70 O2 Sat by Pulse 100 100 100 Oximetry 10/17/21 10/17/21 10/17/21 06:00 06:31 07:00 Temperature Pulse Rate 74 102 H 92 H Pulse Rate [ From Monitor] Respiratory 12 9 L 11 L Rate Blood Pressure 121/64 146/85 156/86 O2 Sat by Pulse 99 100 100 Oximetry 10/17/21 10/17/21 10/17/21 07:17 07:30 07:44 Temperature 99.5 F Pulse Rate 98 H 92 H Pulse Rate [ From Monitor] Respiratory 12 Rate Blood Pressure 155/92 155/92 O2 Sat by Pulse 100 100 Oximetry 10/17/21 10/17/2110/17/22 08:00 08:30 09:00 Temperature Pulse Rate 100 H 95 H 111 H Pulse Rate [ 95 H From Monitor] Respiratory 12 12 12 Rate Blood Pressure 158/91 140/85 163/93 O2 Sat by Pulse 100 100 99 Oximetry 10/17/21 10/17/21 10/17/21 09:30 10:00 10:30 Temperature Pulse Rate 88 85 83 Pulse Rate [ From Monitor] Respiratory 17 17 12 Rate Blood Pressure 122/67 120/64 118/68 O2 Sat by Pulse 97 94 99 Oximetry 10/17/21 10/17/21 10/17/21 11:00 11:30 11:58 Temperature Pulse Rate 123 H 86 86 Pulse Rate [ From Monitor] Respiratory 16 14 Rate Blood Pressure 178/102 126/73 O2 Sat by Pulse 100 99 Oximetry 10/17/21 10/17/21 10/17/21 11:59 12:00 12:26 Temperature 99.8 F H Pulse Rate 86 Pulse Rate [ 86 From Monitor] Respiratory 12 14 Rate Blood Pressure 122/70 O2 Sat by Pulse 99 99 Oximetry 10/17/21 10/17/21 10/17/21 12:30 12:36 13:00 Temperature Pulse Rate 92 H 95 H 87 Pulse Rate [ From Monitor] Respiratory 11 L 14 Rate Blood Pressure 143/85 122/70 129/73 O2 Sat by Pulse 98 97 99 Oximetry 10/17/21 10/17/21 10/17/21 13:11 13:21 13:30 Temperature Pulse Rate 91 H 88 85 Pulse Rate [ From Monitor] Respiratory 15 19 14 Rate Blood Pressure 129/73 129/73 121/73 O2 Sat by Pulse 99 97 100 Oximetry 10/17/21 10/17/21 10/17/21 13:41 13:51 14:00 Temperature Pulse Rate 84 91 H 88 Pulse Rate [ From Monitor] Respiratory 15 15 13 Rate Blood Pressure 121/73 121/73 124/71 O2 Sat by Pulse 96 97 99 Oximetry 10/17/21 10/17/21 10/17/21 14:11 14:21 14:30 Temperature Pulse Rate 85 87 84 Pulse Rate [ From Monitor] Respiratory 13 14 15 Rate Blood Pressure 124/71 124/71 117/68 O2 Sat by Pulse 99 99 99 Oximetry 10/17/21 14:34 Temperature 100.1 F H Pulse Rate Pulse Rate [ From Monitor] Respiratory Rate Blood Pressure O2 Sat by Pulse Oximetry - General physical appearance Narrative Exam: Gen.: Intubated and sedated. No apparent distress ENT: Trachea midline. No lymphadenopathy. No scleral icterus or conjunctival pallor. NG tube bilious. CV: S1, S2 present Respiratory: No audible wheezes Abdomen: Soft, mildly distended, nontender. Dressing with minimal serous drainage. Entirety of dressing removed. Incision cleansed and new clean dressing applied to midline incision and YURIDIA drain. YURIDIA drain serosanguineous. Colostomy dressing changed. Colostomy is pink with moderate edema. No air or stool in bag. No rebound, rigidity, guarding Extremities: b/l LE edema I/Os: L flank IR drain: 210cc/24h serous Medial abdominal drain: 2L/24 serosang NGT - 50cc/24h light bilious Uo: >2L/24h - Labs 10/17/21 04:00 10/17/21 04:00 Diabetes panel 10/17/21 Range/Units 04:00 Sodium 138 (137-145) mmol/L Potassium 4.1 (3.6-5.0) mmol/L Chloride 101.3 (98-107) mmol/L Carbon Dioxide 30 (22-30) mmol/L BUN 29 H (7-17) mg/dL Creatinine 0.8 (0.6-1.2) mg/dL Glucose 138 H (65-100) mg/dL Calcium 7.5 L (8.4-10.2) mg/dL Calcium panel 10/17/21 Range/Units 04:00 Calcium 7.5 L (8.4-10.2) mg/dL Phosphorus 2.60 (2.5-4.5) mg/dL Pituitary panel 10/17/21 Range/Units 04:00 Sodium 138 (137-145) mmol/L Potassium 4.1 (3.6-5.0) mmol/L Chloride 101.3 (98-107) mmol/L Carbon Dioxide 30 (22-30) mmol/L BUN 29 H (7-17) mg/dL Creatinine 0.8 (0.6-1.2) mg/dL Glucose 138 H (65-100) mg/dL Calcium 7.5 L (8.4-10.2) mg/dL Adrenal panel 10/17/21 Range/Units 04:00 Sodium 138 (137-145) mmol/L Potassium 4.1 (3.6-5.0) mmol/L Chloride 101.3 (98-107) mmol/L Carbon Dioxide 30 (22-30) mmol/L BUN 29 H (7-17) mg/dL Creatinine 0.8 (0.6-1.2) mg/dL Glucose 138 H (65-100) mg/dL Calcium 7.5 L (8.4-10.2) mg/dL
--- NOTE | 2021-10-17 16:46 | Progress Note ---
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 Open left hemicolectomy and partial omentectomy Peritonitis Leukocytosis Diverticulitis with absces Acute renal failure Acute blood loss anemia Gross Hematuria - continue TPN - keep sedated RASS -2 to -3 over weekend re: abdominal wound dehiscence issues -tentatively resume SBT's in am - wound care per RN / WCN under surgeons direction - continue care as below otherwise; - daily SAT and SBT assessment as tolerated - continue to wean supplemental oxygen for target O2 sat's > 90% acutely - VAP bundle addressed - continue lung protective strategies - continue bronchodilators with pulmonary hygiene per RT - wean per pulmonary driven protocols otherwise - avoid nephrotoxins, renally dose all medications - continue accuchecks with glycemic control per SSI (While critically ill target blood glucose of 140-180 mg/dL; avoid hypoglycemia) - sedation prn for target RASS -2 to -3 - continue to avoid benzodiazepine's, reduce the possibility of delirium - AB's per ID rec's (Diflucan & Flagyl now) - Maintenance of sleep-wake cycle, avoid delirium - continue enteral nutritional support at goal rate as tolerated - G.I. & VTE prophylaxis - PT/OT/ROM exercises - continue mobility protocols for pressure ulcer prophylaxis - Monitor hemodynamics closely - continue other care per attending / other consultants - discharge planning ongoing concurrently COVID SPECIFIC INTERVENTIONS - COVID-19 PCR negative .... Re-evaluate in am & prn CONDITION: CRITICAL PROGNOSIS: GUARDED CODE STATUS: FULL CODE The high probability of a clinically significant, sudden or life-threatening deterioration of the [respiratory, cardiovascular & neurologic] system(s) required my full and direct attention, intervention and personal management. The aggregate critical care time was [32] minutes without overlap. 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 s/p appendectomy; VRE infection; Open left hemicolectomy and partial omentectomy; Peritonitis; Diverticulitis with abscess;' BRYANNA; ABLA; Gross Hematuria Seen and examined at bedside; 24hour events reviewed; nursing and respiratory care staff consulted; no adverse overnight events reported to me; resting in bed; remains on MVS and tolerating well; no new issues respoiratory garcia and ap propriate during SAT's Objective Vital Signs - 12hr 10/17/21 10/17/21 10/17/21 05:00 05:30 06:00 Temperature Pulse Rate 74 79 74 Pulse Rate [ From Monitor] Respiratory 12 12 12 Rate Blood Pressure 121/68 122/70 121/64 O2 Sat by Pulse 100 100 99 Oximetry 10/17/21 10/17/21 10/17/21 06:31 07:00 07:17 Temperature 99.5 F Pulse Rate 102 H 92 H Pulse Rate [ From Monitor] Respiratory 9 L 11 L Rate Blood Pressure 146/85 156/86 O2 Sat by Pulse 100 100 Oximetry 10/17/21 10/17/21 10/17/21 07:30 07:44 08:00 Temperature Pulse Rate 98 H 92 H 100 H Pulse Rate [ 95 H From Monitor] Respiratory 12 12 Rate Blood Pressure 155/92 155/92 158/91 O2 Sat by Pulse 100 100 100 Oximetry 10/17/21 10/17/21 10/17/21 08:30 09:00 09:30 Temperature Pulse Rate 95 H 111 H 88 Pulse Rate [ From Monitor] Respiratory 12 12 17 Rate Blood Pressure 140/85 163/93 122/67 O2 Sat by Pulse 100 99 97 Oximetry 10/17/21 10/17/21 10/17/21 10:00 10:30 11:00 Temperature Pulse Rate 85 83 123 H Pulse Rate [ From Monitor] Respiratory 17 12 16 Rate Blood Pressure 120/64 118/68 178/102 O2 Sat by Pulse 94 99 100 Oximetry 10/17/21 10/17/21 10/17/21 11:30 11:58 11:59 Temperature Pulse Rate 86 86 Pulse Rate [ 86 From Monitor] Respiratory 14 12 Rate Blood Pressure 126/73 O2 Sat by Pulse 99 99 Oximetry 10/17/21 10/17/21 10/17/21 12:00 12:26 12:30 Temperature 99.8 F H Pulse Rate 86 92 H Pulse Rate [ From Monitor] Respiratory 14 11 L Rate Blood Pressure 122/70 143/85 O2 Sat by Pulse 99 98 Oximetry 10/17/21 10/17/21 10/17/21 12:36 13:00 13:11 Temperature Pulse Rate 95 H 87 91 H Pulse Rate [ From Monitor] Respiratory 14 15 Rate Blood Pressure 122/70 129/73 129/73 O2 Sat by Pulse 97 99 99 Oximetry 10/17/21 10/17/21 10/17/21 13:21 13:30 13:41 Temperature Pulse Rate 88 85 84 Pulse Rate [ From Monitor] Respiratory 19 14 15 Rate Blood Pressure 129/73 121/73 121/73 O2 Sat by Pulse 97 100 96 Oximetry 10/17/21 10/17/21 10/17/21 13:51 14:00 14:11 Temperature Pulse Rate 91 H 88 85 Pulse Rate [ From Monitor] Respiratory 15 13 13 Rate Blood Pressure 121/73 124/71 124/71 O2 Sat by Pulse 97 99 99 Oximetry 10/17/21 10/17/21 10/17/21 14:21 14:30 14:34 Temperature 100.1 F H Pulse Rate 87 84 Pulse Rate [ From Monitor] Respiratory 14 15 Rate Blood Pressure 124/71 117/68 O2 Sat by Pulse 99 99 Oximetry 10/17/21 10/17/21 10/17/21 14:49 15:00 15:30 Temperature 100.1 F H Pulse Rate 80 82 79 Pulse Rate [ From Monitor] Respiratory 14 14 14 Rate Blood Pressure 117/68 117/66 118/69 O2 Sat by Pulse 99 99 99 Oximetry 10/17/21 10/17/21 10/17/21 15:53 16:00 16:11 Temperature 99.9 F H Pulse Rate 74 85 98 H Pulse Rate [ 74 From Monitor] Respiratory 14 11 L Rate Blood Pressure 131/80 131/80 O2 Sat by Pulse 99 100 Oximetry 10/17/21 16:14 Temperature Pulse Rate 106 H Pulse Rate [ From Monitor] Respiratory Rate Blood Pressure 131/80 O2 Sat by Pulse 100 Oximetry Constitutional: no acute distress, other (young obese female without increased respiratory effort at rest on MVS) Eyes: non-icteric ENT: oropharynx moist, other (orally intubated ETT 7.5cm @24 at the lip) Neck: supple, other (RIJ CVL) Effort: mildly labored Ascultation: Bilateral: diminished breath sounds, rhonchi Percussion: Bilateral: not dull Cardiovascular: regular rate and rhythm, other (S1,S2) Gastrointestinal: hypoactive bowel sounds, soft, tender (mild), other (YURIDIA drains, anterior abdominal dressings, colostomy) Integumentary: normal, other (post-op changes) Extremities: no cyanosis, pulses normal, no ischemia or petechiae, edema Neurologic: non-focal exam, pupils equal and round, CN II-XII normal, motor strength normal and Psychiatric: other (sedated) CBC and BMP: 10/25/21 05:03 10/25/21 05:03 ABG, PT/INR, D-dimer: ABG ABG pH 7.342 pH Units (7.350-7.450) L 10/14/21 10:45 ABG pCO2 49.5 mm Hg 10/14/21 10:45 ABG pO2 96.0 mm Hg (80.0-90.0) H 10/14/21 10:45 ABG O2 Saturation 97.2 % (95.0-99.0) 10/14/21 10:45 PT/INR, D-dimer PT 19.0 Sec. (12.2-14.9) H 10/14/21 04:05 INR 1.41 (0.87-1.13) H 10/14/21 04:05 D-Dimer > 82307 ng/mlDDU (0-234) H 10/09/21 08:45 Abnormal lab findings: Abnormal Labs 09/24/21 09/24/21 09/24/21 14:49 14:58 14:58 WBC 32.4 H RBC Hgb Hct MCH RDW Plt Count 535 H [place] # (Auto) Seg Neutrophils % Seg Neuts % (Manual) 82.0 H Lymphocytes % (Manual) 2.0 L Monocytes % (Manual) Nucleated RBC % Seg Neutrophils # Seg Neutrophils # Man 26.6 H Lymphocytes # (Manual) 0.6 L Monocytes # (Manual) 1.6 H PT INR D-Dimer ABG pH ABG pO2 ABG HCO3 ABG O2 Saturation ABG Base Excess ABG Hemoglobin Oxyhemoglobin Sodium 134 L Potassium 3.5 L Chloride 97.6 L Carbon Dioxide BUN Creatinine Glucose 119 H POC Glucose Lactic Acid Calcium Phosphorus Magnesium Ferritin Lactate Dehydrogenase Total Creatine Kinase C-Reactive Protein Total Protein 6.1 L Albumin 3.3 L U Epithel Cells (Auto) 18.0 H Crossmatch 09/25/21 09/25/21 09/26/21 05:47 05:47 04:20 WBC 25.4 H 23.6 H RBC 3.54 L Hgb Hct MCH RDW Plt Count 466 H 486 H [place] # (Auto) Seg Neutrophils % Seg Neuts % (Manual) 93.0 H 86.0 H Lymphocytes % (Manual) 4.0 L 3.0 L Monocytes % (Manual) Nucleated RBC % Seg Neutrophils # Seg Neutrophils # Man 23.6 H 20.3 H Lymphocytes # (Manual) 1.0 L 0.7 L Monocytes # (Manual) 0.9 H PT INR D-Dimer ABG pH ABG pO2 ABG HCO3 ABG O2 Saturation ABG Base Excess ABG Hemoglobin Oxyhemoglobin Sodium 136 L Potassium 3.0 L Chloride Carbon Dioxide 21 L BUN Creatinine Glucose POC Glucose Lactic Acid Calcium 7.8 L Phosphorus Magnesium Ferritin Lactate Dehydrogenase Total Creatine Kinase C-Reactive Protein Total Protein Albumin U Epithel Cells (Auto) Crossmatch 09/26/21 09/27/21 09/27/21 04:20 08:28 08:28 WBC 20.6 H RBC 3.42 L Hgb 9.9 L Hct 29.5 L D MCH RDW Plt Count [place] # (Auto) Seg Neutrophils % Seg Neuts % (Manual) 94.1 H Lymphocytes % (Manual) 1.0 L Monocytes % (Manual) Nucleated RBC % Seg Neutrophils # Seg Neutrophils # Man 19.4 H Lymphocytes # (Manual) 0.2 L Monocytes # (Manual) PT INR D-Dimer ABG pH ABG pO2 ABG HCO3 ABG O2 Saturation ABG Base Excess ABG Hemoglobin Oxyhemoglobin Sodium Potassium 3.2 L Chloride Carbon Dioxide 20 L BUN Creatinine Glucose 137 H POC Glucose Lactic Acid Calcium 8.3 L 8.2 L Phosphorus Magnesium Ferritin Lactate Dehydrogenase Total Creatine Kinase C-Reactive Protein Total Protein Albumin U Epithel Cells (Auto) Crossmatch 09/28/21 09/28/21 09/29/21 04:55 15:35 07:02 WBC 15.1 H 16.5 H RBC 3.34 L 3.20 L Hgb 9.3 L 9.1 L Hct 28.7 L 27.3 L MCH RDW 15.3 H Plt Count 444 H 469 H [place] # (Auto) 0.9 H Seg Neutrophils % 89.3 H Seg Neuts % (Manual) 88.0 H 80.0 H Lymphocytes % (Manual) 9.0 L 8.0 L Monocytes % (Manual) Nucleated RBC % Seg Neutrophils # 14.0 H Seg Neutrophils # Man 13.3 H 13.2 H Lymphocytes # (Manual) Monocytes # (Manual) PT INR D-Dimer ABG pH ABG pO2 ABG HCO3 ABG O2 Saturation ABG Base Excess ABG Hemoglobin Oxyhemoglobin Sodium Potassium 3.3 L Chloride 109.4 H Carbon Dioxide 20 L BUN Creatinine 0.5 L Glucose POC Glucose Lactic Acid Calcium 7.9 L Phosphorus Magnesium Ferritin Lactate Dehydrogenase Total Creatine Kinase C-Reactive Protein Total Protein Albumin U Epithel Cells (Auto) Crossmatch 09/30/21 09/30/21 10/01/21 05:40 05:40 07:49 WBC 17.4 H 17.9 H RBC 3.37 L 3.32 L Hgb 9.2 L 9.3 L Hct 28.4 L 28.3 L MCH 27 L RDW 15.4 H 15.5 H Plt Count 530 H 604 H [place] # (Auto) Seg Neutrophils % Seg Neuts % (Manual) 91.0 H 72.0 H Lymphocytes % (Manual) 9.0 L 1.0 L Monocytes % (Manual) 8.0 H Nucleated RBC % 1.0 H Seg Neutrophils # Seg Neutrophils # Man 15.8 H 12.9 H Lymphocytes # (Manual) 0.2 L Monocytes # (Manual) 1.4 H PT INR D-Dimer ABG pH ABG pO2 ABG HCO3 ABG O2 Saturation ABG Base Excess ABG Hemoglobin Oxyhemoglobin Sodium Potassium 3.5 L Chloride Carbon Dioxide 21 L BUN Creatinine 0.5 L Glucose POC Glucose Lactic Acid Calcium 8.0 L Phosphorus Magnesium Ferritin Lactate Dehydrogenase Total Creatine Kinase C-Reactive Protein Total Protein Albumin U Epithel Cells (Auto) Crossmatch 10/01/21 10/01/21 10/02/21 07:49 10:45 05:41 WBC 23.2 H RBC 2.90 L Hgb 7.9 L Hct 24.8 L MCH 27 L RDW 15.3 H Plt Count 621 H [place] # (Auto) Seg Neutrophils % Seg Neuts % (Manual) 88.0 H Lymphocytes % (Manual) 2.0 L Monocytes % (Manual) Nucleated RBC % Seg Neutrophils # Seg Neutrophils # Man 20.4 H Lymphocytes # (Manual) 0.5 L Monocytes # (Manual) 1.4 H PT INR D-Dimer ABG pH ABG pO2 ABG HCO3 ABG O2 Saturation ABG Base Excess ABG Hemoglobin Oxyhemoglobin Sodium Potassium Chloride Carbon Dioxide 20 L BUN Creatinine 0.5 L Glucose POC Glucose Lactic Acid Calcium 7.6 L Phosphorus Magnesium Ferritin Lactate Dehydrogenase Total Creatine Kinase C-Reactive Protein Total Protein Albumin U Epithel Cells (Auto) Crossmatch See Detail 10/02/21 10/02/21 10/02/21 05:41 07:47 11:10 WBC RBC Hgb Hct MCH RDW Plt Count [place] # (Auto) Seg Neutrophils % Seg Neuts % (Manual) Lymphocytes % (Manual) Monocytes % (Manual) Nucleated RBC % Seg Neutrophils # Seg Neutrophils # Man Lymphocytes # (Manual) Monocytes # (Manual) PT INR D-Dimer ABG pH ABG pO2 ABG HCO3 ABG O2 Saturation ABG Base Excess ABG Hemoglobin Oxyhemoglobin Sodium Potassium Chloride Carbon Dioxide BUN Creatinine Glucose 130 H POC Glucose 145 H 120 H Lactic Acid Calcium 6.9 L Phosphorus Magnesium Ferritin Lactate Dehydrogenase Total Creatine Kinase C-Reactive Protein Total Protein Albumin U Epithel Cells (Auto) Crossmatch 10/02/21 10/03/21 10/03/21 16:14 04:55 04:55 WBC 26.1 H RBC 2.31 L Hgb 6.3 L Hct 19.8 L* MCH RDW 15.9 H Plt Count 598 H [place] # (Auto) Seg Neutrophils % Seg Neuts % (Manual) 82.0 H Lymphocytes % (Manual) 1.0 L Monocytes % (Manual) 10.0 H Nucleated RBC % Seg Neutrophils # Seg Neutrophils # Man 21.4 H Lymphocytes # (Manual) 0.3 L Monocytes # (Manual) 2.6 H PT INR D-Dimer ABG pH ABG pO2 ABG HCO3 ABG O2 Saturation ABG Base Excess ABG Hemoglobin Oxyhemoglobin Sodium Potassium Chloride Carbon Dioxide BUN 22 H Creatinine 1.7 H D Glucose 145 H POC Glucose 109 H Lactic Acid Calcium 6.4 L Phosphorus Magnesium 2.40 H Ferritin Lactate Dehydrogenase Total Creatine Kinase C-Reactive Protein Total Protein 4.2 L Albumin 1.6 L U Epithel Cells (Auto) Crossmatch 10/03/21 10/03/21 10/03/21 07:15 11:49 17:06 WBC RBC Hgb Hct MCH RDW Plt Count [place] # (Auto) Seg Neutrophils % Seg Neuts % (Manual) Lymphocytes % (Manual) Monocytes % (Manual) Nucleated RBC % Seg Neutrophils # Seg Neutrophils # Man Lymphocytes # (Manual) Monocytes # (Manual) PT INR D-Dimer ABG pH ABG pO2 ABG HCO3 ABG O2 Saturation ABG Base Excess ABG Hemoglobin Oxyhemoglobin Sodium Potassium Chloride Carbon Dioxide BUN Creatinine Glucose POC Glucose 162 H 171 H 174 H Lactic Acid Calcium Phosphorus Magnesium Ferritin Lactate Dehydrogenase Total Creatine Kinase C-Reactive Protein Total Protein Albumin U Epithel Cells (Auto) Crossmatch 10/03/21 10/04/21 10/04/21 23:31 04:44 04:44 WBC 26.4 H RBC 2.33 L Hgb 6.6 L Hct 19.4 L* MCH RDW 16.1 H Plt Count 602 H [place] # (Auto) Seg Neutrophils % Seg Neuts % (Manual) 80.0 H Lymphocytes % (Manual) 5.0 L Monocytes % (Manual) Nucleated RBC % Seg Neutrophils # Seg Neutrophils # Man 21.1 H Lymphocytes # (Manual) Monocytes # (Manual) 1.8 H PT INR D-Dimer ABG pH ABG pO2 ABG HCO3 ABG O2 Saturation ABG Base Excess ABG Hemoglobin Oxyhemoglobin Sodium 135 L Potassium 3.4 L Chloride Carbon Dioxide 21 L BUN 28 H Creatinine 2.0 H Glucose 171 H POC Glucose 179 H Lactic Acid Calcium 6.7 L Phosphorus 1.30 L D Magnesium 2.40 H Ferritin Lactate Dehydrogenase Total Creatine Kinase C-Reactive Protein Total Protein Albumin U Epithel Cells (Auto) Crossmatch 10/04/21 10/04/21 10/04/21 05:25 12:01 13:30 WBC RBC Hgb Hct MCH RDW Plt Count [place] # (Auto) Seg Neutrophils % Seg Neuts % (Manual) Lymphocytes % (Manual) Monocytes % (Manual) Nucleated RBC % Seg Neutrophils # Seg Neutrophils # Man Lymphocytes # (Manual) Monocytes # (Manual) PT INR D-Dimer ABG pH ABG pO2 ABG HCO3 ABG O2 Saturation ABG Base Excess ABG Hemoglobin Oxyhemoglobin Sodium Potassium Chloride Carbon Dioxide BUN Creatinine Glucose POC Glucose 174 H 172 H Lactic Acid Calcium Phosphorus Magnesium Ferritin Lactate Dehydrogenase Total Creatine Kinase C-Reactive Protein Total Protein Albumin U Epithel Cells (Auto) Crossmatch See Detail 10/04/21 10/04/21 10/04/21 16:47 20:28 22:23 WBC RBC Hgb 8.5 L Hct 25.1 L MCH RDW Plt Count [place] # (Auto) Seg Neutrophils % Seg Neuts % (Manual) Lymphocytes % (Manual) Monocytes % (Manual) Nucleated RBC % Seg Neutrophils # Seg Neutrophils # Man Lymphocytes # (Manual) Monocytes # (Manual) PT INR D-Dimer ABG pH ABG pO2 ABG HCO3 ABG O2 Saturation ABG Base Excess ABG Hemoglobin Oxyhemoglobin Sodium Potassium Chloride Carbon Dioxide BUN Creatinine Glucose POC Glucose 135 H 152 H Lactic Acid Calcium Phosphorus Magnesium Ferritin Lactate Dehydrogenase Total Creatine Kinase C-Reactive Protein Total Protein Albumin U Epithel Cells (Auto) Crossmatch 10/05/21 10/05/21 10/05/21 04:40 04:40 04:40 WBC 24.7 H RBC 3.02 L Hgb 8.4 L Hct 25.5 L MCH RDW 16.2 H Plt Count 644 H [place] # (Auto) Seg Neutrophils % Seg Neuts % (Manual) 91.0 H Lymphocytes % (Manual) 7.0 L Monocytes % (Manual) Nucleated RBC % Seg Neutrophils # Seg Neutrophils # Man 22.5 H Lymphocytes # (Manual) Monocytes # (Manual) PT 17.8 H INR 1.31 H D-Dimer ABG pH ABG pO2 ABG HCO3 ABG O2 Saturation ABG Base Excess ABG Hemoglobin Oxyhemoglobin Sodium 135 L Potassium Chloride Carbon Dioxide BUN 29 H Creatinine 2.1 H Glucose 156 H POC Glucose Lactic Acid Calcium 7.6 L Phosphorus 1.90 L D Magnesium Ferritin Lactate Dehydrogenase Total Creatine Kinase C-Reactive Protein Total Protein 5.2 L D Albumin 1.8 L U Epithel Cells (Auto) Crossmatch 10/05/21 10/05/21 10/05/21 05:08 18:17 23:37 WBC RBC Hgb Hct MCH RDW Plt Count [place] # (Auto) Seg Neutrophils % Seg Neuts % (Manual) Lymphocytes % (Manual) Monocytes % (Manual) Nucleated RBC % Seg Neutrophils # Seg Neutrophils # Man Lymphocytes # (Manual) Monocytes # (Manual) PT INR D-Dimer ABG pH ABG pO2 ABG HCO3 ABG O2 Saturation ABG Base Excess ABG Hemoglobin Oxyhemoglobin Sodium Potassium Chloride Carbon Dioxide BUN Creatinine Glucose POC Glucose 156 H 119 H 130 H Lactic Acid Calcium Phosphorus Magnesium Ferritin Lactate Dehydrogenase Total Creatine Kinase C-Reactive Protein Total Protein Albumin U Epithel Cells (Auto) Crossmatch 10/06/21 10/06/21 10/06/21 04:27 05:27 05:27 WBC 23.4 H RBC 2.84 L Hgb 7.8 L Hct 23.9 L MCH RDW 16.2 H Plt Count 712 H [place] # (Auto) Seg Neutrophils % Seg Neuts % (Manual) Lymphocytes % (Manual) Monocytes % (Manual) Nucleated RBC % Seg Neutrophils # Seg Neutrophils # Man Lymphocytes # (Manual) Monocytes # (Manual) PT INR D-Dimer ABG pH ABG pO2 ABG HCO3 ABG O2 Saturation ABG Base Excess ABG Hemoglobin Oxyhemoglobin Sodium 134 L Potassium Chloride Carbon Dioxide 20 L BUN 28 H Creatinine 1.9 H Glucose 132 H POC Glucose 132 H Lactic Acid Calcium 7.8 L Phosphorus Magnesium Ferritin Lactate Dehydrogenase Total Creatine Kinase 242 H C-Reactive Protein Total Protein Albumin U Epithel Cells (Auto) Crossmatch 10/06/21 10/06/21 10/06/21 16:40 20:50 23:39 WBC RBC Hgb Hct MCH RDW Plt Count [place] # (Auto) Seg Neutrophils % Seg Neuts % (Manual) Lymphocytes % (Manual) Monocytes % (Manual) Nucleated RBC % Seg Neutrophils # Seg Neutrophils # Man Lymphocytes # (Manual) Monocytes # (Manual) PT INR D-Dimer ABG pH ABG pO2 ABG HCO3 ABG O2 Saturation ABG Base Excess ABG Hemoglobin Oxyhemoglobin Sodium Potassium Chloride Carbon Dioxide BUN Creatinine Glucose POC Glucose 133 H 116 H 132 H Lactic Acid Calcium Phosphorus Magnesium Ferritin Lactate Dehydrogenase Total Creatine Kinase C-Reactive Protein Total Protein Albumin U Epithel Cells (Auto) Crossmatch 10/07/21 10/07/21 10/07/21 05:09 05:13 09:43 WBC 22.3 H RBC 2.81 L Hgb 7.8 L Hct 24.0 L MCH RDW 16.5 H Plt Count 733 H [place] # (Auto) Seg Neutrophils % Seg Neuts % (Manual) 85.0 H Lymphocytes % (Manual) 1.0 L Monocytes % (Manual) Nucleated RBC % Seg Neutrophils # Seg Neutrophils # Man 19.0 H Lymphocytes # (Manual) 0.2 L Monocytes # (Manual) 1.6 H PT INR D-Dimer ABG pH ABG pO2 ABG HCO3 ABG O2 Saturation ABG Base Excess ABG Hemoglobin Oxyhemoglobin Sodium 136 L Potassium Chloride Carbon Dioxide 20 L BUN 29 H Creatinine 1.9 H Glucose 140 H POC Glucose 139 H Lactic Acid Calcium 7.6 L Phosphorus Magnesium Ferritin Lactate Dehydrogenase Total Creatine Kinase C-Reactive Protein Total Protein Albumin U Epithel Cells (Auto) Crossmatch 10/07/21 10/07/21 10/08/21 11:38 17:44 00:20 WBC RBC Hgb Hct MCH RDW Plt Count [place] # (Auto) Seg Neutrophils % Seg Neuts % (Manual) Lymphocytes % (Manual) Monocytes % (Manual) Nucleated RBC % Seg Neutrophils # Seg Neutrophils # Man Lymphocytes # (Manual) Monocytes # (Manual) PT INR D-Dimer ABG pH ABG pO2 ABG HCO3 ABG O2 Saturation ABG Base Excess ABG Hemoglobin Oxyhemoglobin Sodium Potassium Chloride Carbon Dioxide BUN Creatinine Glucose POC Glucose 126 H 113 H 129 H Lactic Acid Calcium Phosphorus Magnesium Ferritin Lactate Dehydrogenase Total Creatine Kinase C-Reactive Protein Total Protein Albumin U Epithel Cells (Auto) Crossmatch 10/08/21 10/08/21 10/08/21 05:26 05:26 05:29 WBC 21.8 H RBC 2.84 L Hgb 7.8 L Hct 24.1 L MCH 27 L RDW 16.5 H Plt Count 789 H [place] # (Auto) Seg Neutrophils % Seg Neuts % (Manual) Lymphocytes % (Manual) Monocytes % (Manual) Nucleated RBC % Seg Neutrophils # Seg Neutrophils # Man Lymphocytes # (Manual) Monocytes # (Manual) PT INR D-Dimer ABG pH ABG pO2 ABG HCO3 ABG O2 Saturation ABG Base Excess ABG Hemoglobin Oxyhemoglobin Sodium 136 L Potassium Chloride Carbon Dioxide 20 L BUN 31 H Creatinine 1.7 H Glucose 134 H POC Glucose 123 H Lactic Acid Calcium 7.9 L Phosphorus 4.60 H D Magnesium Ferritin Lactate Dehydrogenase Total Creatine Kinase C-Reactive Protein Total Protein Albumin U Epithel Cells (Auto) Crossmatch 10/08/21 10/08/21 10/08/21 11:53 17:07 20:08 WBC RBC Hgb Hct MCH RDW Plt Count [place] # (Auto) Seg Neutrophils % Seg Neuts % (Manual) Lymphocytes % (Manual) Monocytes % (Manual) Nucleated RBC % Seg Neutrophils # Seg Neutrophils # Man Lymphocytes # (Manual) Monocytes # (Manual) PT INR D-Dimer ABG pH 7.308 L ABG pO2 40.2 L ABG HCO3 15.7 L ABG O2 Saturation 68 L ABG Base Excess -9.6 L ABG Hemoglobin 9.7 L Oxyhemoglobin 67.8 L Sodium Potassium Chloride Carbon Dioxide BUN Creatinine Glucose POC Glucose 128 H 139 H Lactic Acid Calcium Phosphorus Magnesium Ferritin Lactate Dehydrogenase Total Creatine Kinase C-Reactive Protein Total Protein Albumin U Epithel Cells (Auto) Crossmatch 10/08/21 10/08/21 10/08/21 21:30 22:55 22:55 WBC RBC Hgb Hct MCH RDW Plt Count [place] # (Auto) Seg Neutrophils % Seg Neuts % (Manual) Lymphocytes % (Manual) Monocytes % (Manual) Nucleated RBC % Seg Neutrophils # Seg Neutrophils # Man Lymphocytes # (Manual) Monocytes # (Manual) PT INR D-Dimer ABG pH ABG pO2 43.8 L ABG HCO3 19.5 L ABG O2 Saturation 70.7 L ABG Base Excess -5.3 L ABG Hemoglobin 8.6 L Oxyhemoglobin 69.4 L Sodium Potassium Chloride Carbon Dioxide BUN Creatinine Glucose POC Glucose Lactic Acid 2.50 H* Calcium Phosphorus Magnesium Ferritin Lactate Dehydrogenase Total Creatine Kinase C-Reactive Protein Total Protein Albumin U Epithel Cells (Auto) Crossmatch See Detail 10/09/21 10/09/21 10/09/21 03:12 05:31 05:31 WBC 20.3 H RBC 2.70 L Hgb 7.4 L Hct 23.1 L MCH 27 L RDW 16.6 H Plt Count 786 H [place] # (Auto) Seg Neutrophils % Seg Neuts % (Manual) 88.0 H Lymphocytes % (Manual) 3.0 L Monocytes % (Manual) Nucleated RBC % Seg Neutrophils # Seg Neutrophils # Man 17.9 H Lymphocytes # (Manual) 0.6 L Monocytes # (Manual) 1.2 H PT INR D-Dimer ABG pH ABG pO2 ABG HCO3 ABG O2 Saturation ABG Base Excess ABG Hemoglobin Oxyhemoglobin Sodium 136 L Potassium Chloride Carbon Dioxide 20 L BUN 32 H Creatinine 1.5 H Glucose 214 H POC Glucose 190 H Lactic Acid Calcium 7.5 L Phosphorus Magnesium Ferritin Lactate Dehydrogenase Total Creatine Kinase C-Reactive Protein Total Protein 5.8 L Albumin 2.3 L U Epithel Cells (Auto) Crossmatch 10/09/21 10/09/21 10/09/21 05:31 05:31 05:31 WBC RBC Hgb Hct MCH RDW Plt Count [place] # (Auto) Seg Neutrophils % Seg Neuts % (Manual) Lymphocytes % (Manual) Monocytes % (Manual) Nucleated RBC % Seg Neutrophils # Seg Neutrophils # Man Lymphocytes # (Manual) Monocytes # (Manual) PT INR D-Dimer ABG pH ABG pO2 ABG HCO3 ABG O2 Saturation ABG Base Excess ABG Hemoglobin Oxyhemoglobin Sodium Potassium Chloride Carbon Dioxide BUN Creatinine Glucose POC Glucose Lactic Acid 2.20 H* Calcium Phosphorus Magnesium Ferritin 751.9 H Lactate Dehydrogenase Total Creatine Kinase C-Reactive Protein 15.90 H Total Protein Albumin U Epithel Cells (Auto) Crossmatch 10/09/21 10/09/21 10/09/21 05:31 08:45 12:08 WBC RBC Hgb Hct MCH RDW Plt Count [place] # (Auto) Seg Neutrophils % Seg Neuts % (Manual) Lymphocytes % (Manual) Monocytes % (Manual) Nucleated RBC % Seg Neutrophils # Seg Neutrophils # Man Lymphocytes # (Manual) Monocytes # (Manual) PT INR D-Dimer > 75600 H ABG pH ABG pO2 54.3 L ABG HCO3 ABG O2 Saturation 86.6 L ABG Base Excess -2.6 L ABG Hemoglobin 7.2 L Oxyhemoglobin 85.3 L Sodium Potassium Chloride Carbon Dioxide BUN Creatinine Glucose POC Glucose Lactic Acid Calcium Phosphorus Magnesium Ferritin Lactate Dehydrogenase 472 H Total Creatine Kinase C-Reactive Protein Total Protein Albumin U Epithel Cells (Auto) Crossmatch 10/09/21 10/09/21 10/10/21 12:19 17:43 00:30 WBC RBC Hgb Hct MCH RDW Plt Count [place] # (Auto) Seg Neutrophils % Seg Neuts % (Manual) Lymphocytes % (Manual) Monocytes % (Manual) Nucleated RBC % Seg Neutrophils # Seg Neutrophils # Man Lymphocytes # (Manual) Monocytes # (Manual) PT INR D-Dimer ABG pH ABG pO2 ABG HCO3 ABG O2 Saturation ABG Base Excess ABG Hemoglobin Oxyhemoglobin Sodium Potassium Chloride Carbon Dioxide BUN Creatinine Glucose POC Glucose 151 H 136 H 132 H Lactic Acid Calcium Phosphorus Magnesium Ferritin Lactate Dehydrogenase Total Creatine Kinase C-Reactive Protein Total Protein Albumin U Epithel Cells (Auto) Crossmatch 10/10/21 10/10/21 10/10/21 04:10 04:10 05:41 WBC 20.8 H RBC 2.54 L Hgb 7.1 L Hct 21.8 L MCH RDW 16.6 H Plt Count 740 H [place] # (Auto) Seg Neutrophils % Seg Neuts % (Manual) Lymphocytes % (Manual) Monocytes % (Manual) Nucleated RBC % Seg Neutrophils # Seg Neutrophils # Man Lymphocytes # (Manual) Monocytes # (Manual) PT INR D-Dimer ABG pH ABG pO2 ABG HCO3 ABG O2 Saturation ABG Base Excess ABG Hemoglobin Oxyhemoglobin Sodium 130 L Potassium Chloride 97.9 L Carbon Dioxide 19 L BUN 37 H Creatinine 1.4 H Glucose 181 H POC Glucose 150 H Lactic Acid Calcium 7.8 L Phosphorus Magnesium Ferritin Lactate Dehydrogenase Total Creatine Kinase C-Reactive Protein Total Protein Albumin U Epithel Cells (Auto) Crossmatch 10/10/21 10/10/21 10/10/21 11:10 16:00 23:50 WBC RBC Hgb Hct MCH RDW Plt Count [place] # (Auto) Seg Neutrophils % Seg Neuts % (Manual) Lymphocytes % (Manual) Monocytes % (Manual) Nucleated RBC % Seg Neutrophils # Seg Neutrophils # Man Lymphocytes # (Manual) Monocytes # (Manual) PT INR D-Dimer ABG pH ABG pO2 ABG HCO3 ABG O2 Saturation ABG Base Excess ABG Hemoglobin Oxyhemoglobin Sodium Potassium Chloride Carbon Dioxide BUN Creatinine Glucose POC Glucose 136 H 151 H 129 H Lactic Acid Calcium Phosphorus Magnesium Ferritin Lactate Dehydrogenase Total Creatine Kinase C-Reactive Protein Total Protein Albumin U Epithel Cells (Auto) Crossmatch 10/10/21 10/11/21 10/11/21 Unknown 03:30 03:30 WBC 23.2 H RBC 2.39 L Hgb 6.7 L Hct 20.3 L MCH RDW 16.7 H Plt Count 701 H [place] # (Auto) Seg Neutrophils % Seg Neuts % (Manual) Lymphocytes % (Manual) Monocytes % (Manual) Nucleated RBC % Seg Neutrophils # Seg Neutrophils # Man Lymphocytes # (Manual) Monocytes # (Manual) PT INR D-Dimer ABG pH 7.505 H ABG pO2 246.1 H ABG HCO3 ABG O2 Saturation 99.4 H ABG Base Excess ABG Hemoglobin 6.0 L Oxyhemoglobin Sodium 135 L Potassium Chloride Carbon Dioxide 20 L BUN 38 H Creatinine 1.6 H Glucose 118 H POC Glucose Lactic Acid Calcium 7.9 L Phosphorus Magnesium Ferritin Lactate Dehydrogenase Total Creatine Kinase C-Reactive Protein Total Protein Albumin U Epithel Cells (Auto) Crossmatch 10/11/21 10/11/21 10/12/21 11:41 17:51 00:18 WBC RBC Hgb Hct MCH RDW Plt Count [place] # (Auto) Seg Neutrophils % Seg Neuts % (Manual) Lymphocytes % (Manual) Monocytes % (Manual) Nucleated RBC % Seg Neutrophils # Seg Neutrophils # Man Lymphocytes # (Manual) Monocytes # (Manual) PT INR D-Dimer ABG pH ABG pO2 ABG HCO3 ABG O2 Saturation ABG Base Excess ABG Hemoglobin Oxyhemoglobin Sodium Potassium Chloride Carbon Dioxide BUN Creatinine Glucose POC Glucose 128 H 138 H 174 H Lactic Acid Calcium Phosphorus Magnesium Ferritin Lactate Dehydrogenase Total Creatine Kinase C-Reactive Protein Total Protein Albumin U Epithel Cells (Auto) Crossmatch 10/12/21 10/12/21 10/12/21 05:39 06:02 06:02 WBC 19.1 H RBC 3.56 L Hgb 10.0 L D Hct MCH RDW 17.0 H Plt Count 712 H [place] # (Auto) Seg Neutrophils % Seg Neuts % (Manual) Lymphocytes % (Manual) Monocytes % (Manual) Nucleated RBC % Seg Neutrophils # Seg Neutrophils # Man Lymphocytes # (Manual) Monocytes # (Manual) PT INR D-Dimer ABG pH ABG pO2 ABG HCO3 ABG O2 Saturation ABG Base Excess ABG Hemoglobin Oxyhemoglobin Sodium Potassium Chloride Carbon Dioxide BUN 37 H Creatinine 1.5 H Glucose 172 H POC Glucose 158 H Lactic Acid Calcium 8.1 L Phosphorus Magnesium Ferritin Lactate Dehydrogenase Total Creatine Kinase C-Reactive Protein Total Protein Albumin U Epithel Cells (Auto) Crossmatch 10/12/21 10/12/21 10/12/21 06:02 06:05 17:43 WBC RBC Hgb Hct MCH RDW Plt Count [place] # (Auto) Seg Neutrophils % Seg Neuts % (Manual) Lymphocytes % (Manual) Monocytes % (Manual) Nucleated RBC % Seg Neutrophils # Seg Neutrophils # Man Lymphocytes # (Manual) Monocytes # (Manual) PT 17.1 H INR 1.24 H D-Dimer ABG pH ABG pO2 ABG HCO3 ABG O2 Saturation ABG Base Excess ABG Hemoglobin Oxyhemoglobin Sodium Potassium Chloride Carbon Dioxide BUN Creatinine Glucose POC Glucose 173 H Lactic Acid Calcium Phosphorus Magnesium Ferritin Lactate Dehydrogenase Total Creatine Kinase C-Reactive Protein Total Protein Albumin U Epithel Cells (Auto) Crossmatch See Detail 10/12/21 10/12/21 10/13/21 23:28 Unknown 04:05 WBC RBC Hgb 10.0 L Hct MCH RDW Plt Count [place] # (Auto) Seg Neutrophils % Seg Neuts % (Manual) Lymphocytes % (Manual) Monocytes % (Manual) Nucleated RBC % Seg Neutrophils # Seg Neutrophils # Man Lymphocytes # (Manual) Monocytes # (Manual) PT INR D-Dimer ABG pH ABG pO2 ABG HCO3 ABG O2 Saturation ABG Base Excess ABG Hemoglobin Oxyhemoglobin Sodium Potassium Chloride Carbon Dioxide BUN 34 H Creatinine Glucose 200 H POC Glucose 178 H Lactic Acid Calcium 7.5 L Phosphorus Magnesium 1.60 L Ferritin Lactate Dehydrogenase Total Creatine Kinase C-Reactive Protein Total Protein Albumin U Epithel Cells (Auto) Crossmatch 10/13/21 10/13/21 10/13/21 05:09 10:55 13:34 WBC 23.8 H RBC 3.14 L Hgb 9.2 L Hct 27.7 L MCH RDW 17.5 H Plt Count 572 H [place] # (Auto) Seg Neutrophils % Seg Neuts % (Manual) Lymphocytes % (Manual) Monocytes % (Manual) Nucleated RBC % Seg Neutrophils # Seg Neutrophils # Man Lymphocytes # (Manual) Monocytes # (Manual) PT INR D-Dimer ABG pH ABG pO2 ABG HCO3 ABG O2 Saturation ABG Base Excess ABG Hemoglobin Oxyhemoglobin Sodium Potassium Chloride Carbon Dioxide BUN Creatinine Glucose POC Glucose 210 H 168 H Lactic Acid Calcium Phosphorus Magnesium Ferritin Lactate Dehydrogenase Total Creatine Kinase C-Reactive Protein Total Protein Albumin U Epithel Cells (Auto) Crossmatch 10/13/21 10/13/21 10/14/21 15:35 23:10 04:05 WBC 19.4 H RBC 2.98 L Hgb 8.4 L Hct 26.3 L MCH RDW 17.1 H Plt Count 561 H [place] # (Auto) Seg Neutrophils % Seg Neuts % (Manual) Lymphocytes % (Manual) Monocytes % (Manual) Nucleated RBC % Seg Neutrophils # Seg Neutrophils # Man Lymphocytes # (Manual) Monocytes # (Manual) PT INR D-Dimer ABG pH ABG pO2 ABG HCO3 ABG O2 Saturation ABG Base Excess ABG Hemoglobin Oxyhemoglobin Sodium Potassium Chloride Carbon Dioxide BUN Creatinine Glucose POC Glucose 154 H 135 H Lactic Acid Calcium Phosphorus Magnesium Ferritin Lactate Dehydrogenase Total Creatine Kinase C-Reactive Protein Total Protein Albumin U Epithel Cells (Auto) Crossmatch 0310/14/21 10/14/21 04:05 04:05 05:08 WBC RBC Hgb Hct MCH RDW Plt Count [place] # (Auto) Seg Neutrophils % Seg Neuts % (Manual) Lymphocytes % (Manual) Monocytes % (Manual) Nucleated RBC % Seg Neutrophils # Seg Neutrophils # Man Lymphocytes # (Manual) Monocytes # (Manual) PT 19.0 H INR 1.41 H D-Dimer ABG pH ABG pO2 ABG HCO3 ABG O2 Saturation ABG Base Excess ABG Hemoglobin Oxyhemoglobin Sodium Potassium Chloride Carbon Dioxide BUN 33 H Creatinine Glucose 310 H POC Glucose 178 H Lactic Acid Calcium 7.4 L Phosphorus Magnesium Ferritin Lactate Dehydrogenase Total Creatine Kinase C-Reactive Protein Total Protein Albumin U Epithel Cells (Auto) Crossmatch 10/14/21 10/14/21 10/14/21 09:29 10:45 11:40 WBC RBC Hgb Hct MCH RDW Plt Count [place] # (Auto) Seg Neutrophils % Seg Neuts % (Manual) Lymphocytes % (Manual) Monocytes % (Manual) Nucleated RBC % Seg Neutrophils # Seg Neutrophils # Man Lymphocytes # (Manual) Monocytes # (Manual) PT INR D-Dimer ABG pH 7.342 L ABG pO2 96.0 H ABG HCO3 26.2 H ABG O2 Saturation ABG Base Excess ABG Hemoglobin 6.1 L Oxyhemoglobin 94.9 L Sodium Potassium Chloride Carbon Dioxide BUN Creatinine Glucose POC Glucose 155 H 137 H Lactic Acid Calcium Phosphorus Magnesium Ferritin Lactate Dehydrogenase Total Creatine Kinase C-Reactive Protein Total Protein Albumin U Epithel Cells (Auto) Crossmatch 10/14/21 10/14/21 10/14/21 15:40 21:21 23:46 WBC RBC Hgb Hct MCH RDW Plt Count [place] # (Auto) Seg Neutrophils % Seg Neuts % (Manual) Lymphocytes % (Manual) Monocytes % (Manual) Nucleated RBC % Seg Neutrophils # Seg Neutrophils # Man Lymphocytes # (Manual) Monocytes # (Manual) PT INR D-Dimer ABG pH ABG pO2 ABG HCO3 ABG O2 Saturation ABG Base Excess ABG Hemoglobin Oxyhemoglobin Sodium Potassium Chloride Carbon Dioxide BUN Creatinine Glucose POC Glucose 140 H 111 H 164 H Lactic Acid Calcium Phosphorus Magnesium Ferritin Lactate Dehydrogenase Total Creatine Kinase C-Reactive Protein Total Protein Albumin U Epithel Cells (Auto) Crossmatch 10/15/21 10/15/21 10/15/21 05:06 05:40 05:40 WBC 22.7 H RBC 2.94 L Hgb 8.7 L Hct 25.8 L MCH RDW 17.2 H Plt Count 620 H [place] # (Auto) Seg Neutrophils % Seg Neuts % (Manual) Lymphocytes % (Manual) Monocytes % (Manual) Nucleated RBC % Seg Neutrophils # Seg Neutrophils # Man Lymphocytes # (Manual) Monocytes # (Manual) PT INR D-Dimer ABG pH ABG pO2 ABG HCO3 ABG O2 Saturation ABG Base Excess ABG Hemoglobin Oxyhemoglobin Sodium Potassium Chloride Carbon Dioxide BUN 30 H Creatinine Glucose 175 H POC Glucose 155 H Lactic Acid Calcium 7.4 L Phosphorus Magnesium Ferritin Lactate Dehydrogenase Total Creatine Kinase C-Reactive Protein Total Protein Albumin U Epithel Cells (Auto) Crossmatch 10/15/21 10/15/21 10/15/21 11:32 17:23 23:35 WBC RBC Hgb Hct MCH RDW Plt Count [place] # (Auto) Seg Neutrophils % Seg Neuts % (Manual) Lymphocytes % (Manual) Monocytes % (Manual) Nucleated RBC % Seg Neutrophils # Seg Neutrophils # Man Lymphocytes # (Manual) Monocytes # (Manual) PT INR D-Dimer ABG pH ABG pO2 ABG HCO3 ABG O2 Saturation ABG Base Excess ABG Hemoglobin Oxyhemoglobin Sodium Potassium Chloride Carbon Dioxide BUN Creatinine Glucose POC Glucose 157 H 136 H 143 H Lactic Acid Calcium Phosphorus Magnesium Ferritin Lactate Dehydrogenase Total Creatine Kinase C-Reactive Protein Total Protein Albumin U Epithel Cells (Auto) Crossmatch 10/16/21 10/16/21 10/16/21 04:00 04:00 05:08 WBC 18.0 H RBC 2.80 L Hgb 8.0 L Hct 24.7 L MCH RDW 17.4 H Plt Count 543 H [place] # (Auto) Seg Neutrophils % Seg Neuts % (Manual) Lymphocytes % (Manual) Monocytes % (Manual) Nucleated RBC % Seg Neutrophils # Seg Neutrophils # Man Lymphocytes # (Manual) Monocytes # (Manual) PT INR D-Dimer ABG pH ABG pO2 ABG HCO3 ABG O2 Saturation ABG Base Excess ABG Hemoglobin Oxyhemoglobin Sodium Potassium Chloride Carbon Dioxide BUN 31 H Creatinine Glucose 153 H POC Glucose 149 H Lactic Acid Calcium 8.0 L Phosphorus Magnesium Ferritin Lactate Dehydrogenase Total Creatine Kinase C-Reactive Protein Total Protein 5.5 L Albumin 1.9 L U Epithel Cells (Auto) Crossmatch 10/16/21 10/16/21 10/16/21 11:45 17:37 23:48 WBC RBC Hgb Hct MCH RDW Plt Count [place] # (Auto) Seg Neutrophils % Seg Neuts % (Manual) Lymphocytes % (Manual) Monocytes % (Manual) Nucleated RBC % Seg Neutrophils # Seg Neutrophils # Man Lymphocytes # (Manual) Monocytes # (Manual) PT INR D-Dimer ABG pH ABG pO2 ABG HCO3 ABG O2 Saturation ABG Base Excess ABG Hemoglobin Oxyhemoglobin Sodium Potassium Chloride Carbon Dioxide BUN Creatinine Glucose POC Glucose 144 H 130 H 134 H Lactic Acid Calcium Phosphorus Magnesium Ferritin Lactate Dehydrogenase Total Creatine Kinase C-Reactive Protein Total Protein Albumin U Epithel Cells (Auto) Crossmatch 10/17/21 10/17/21 10/17/21 04:00 04:00 05:37 WBC 14.0 H RBC 2.46 L Hgb 7.2 L Hct 21.7 L MCH RDW 17.4 H Plt Count 526 H [place] # (Auto) Seg Neutrophils % Seg Neuts % (Manual) Lymphocytes % (Manual) Monocytes % (Manual) Nucleated RBC % Seg Neutrophils # Seg Neutrophils # Man Lymphocytes # (Manual) Monocytes # (Manual) PT INR D-Dimer ABG pH ABG pO2 ABG HCO3 ABG O2 Saturation ABG Base Excess ABG Hemoglobin Oxyhemoglobin Sodium Potassium Chloride Carbon Dioxide BUN 29 H Creatinine Glucose 138 H POC Glucose 137 H Lactic Acid Calcium 7.5 L Phosphorus Magnesium Ferritin Lactate Dehydrogenase Total Creatine Kinase C-Reactive Protein Total Protein Albumin U Epithel Cells (Auto) Crossmatch 10/17/21 10/17/21 10/17/21 11:45 12:50 16:13 WBC RBC Hgb Hct MCH RDW Plt Count [place] # (Auto) Seg Neutrophils % Seg Neuts % (Manual) Lymphocytes % (Manual) Monocytes % (Manual) Nucleated RBC % Seg Neutrophils # Seg Neutrophils # Man Lymphocytes # (Manual) Monocytes # (Manual) PT INR D-Dimer ABG pH ABG pO2 ABG HCO3 ABG O2 Saturation ABG Base Excess ABG Hemoglobin Oxyhemoglobin Sodium Potassium Chloride Carbon Dioxide BUN Creatinine Glucose POC Glucose 145 H 128 H Lactic Acid Calcium Phosphorus Magnesium Ferritin Lactate Dehydrogenase Total Creatine Kinase C-Reactive Protein Total Protein Albumin U Epithel Cells (Auto) Crossmatch See Detail Allied health notes reviewed: nursing
[2021-10-17] MEDS ORDERED: TOTAL PARENTERAL NUTRITION 1,999.92 ML IV SCH ×2 (20:00)
[2021-10-18] MEDS: metroNIDAZOLE/NS 500 MG/100 ML 500 MG/100 ML BAG IV SCH ×2 (00:18→09:29)
[2021-10-18] MEDS: fentaNYL DRIP Premix 2,000 MCG/100 ML BAG IV SCH (01:25)
[2021-10-18] MEDS: fentaNYL 100 MCG/2 ML INJ IV PRN (03:25)
[2021-10-18 05:06] LABS: Hematocrit 24.4 % (30.3-42.9); Hemoglobin 8.4 gm/dl (10.1-14.3); Mean Corpuscular HGB Conc 34 % (30-34); Mean Corpuscular Volume 87 fl (79-97); Platelet Count 516 K/mm3 (140-440); Red Blood Count 2.81 M/mm3 (3.65-5.03); Red Cell Distribution Width 16.8 % (13.2-15.2)
[2021-10-18 05:25] LABS: Alanine Aminotransferase 6 units/L (7-56); Blood Urea Nitrogen 26 mg/dL (7-17); Calcium 7.5 mg/dL (8.4-10.2); Hemolysis Index 7
[2021-10-18 05:26] LABS: BUN/Creatinine Ratio 37
[2021-10-18] MEDS: INSULIN REGULAR, HUMAN 100 UNITS/1 ML SUB-Q SCH ×4 (06:27→17:02)
[2021-10-18] MEDS ORDERED: LINEZOLID 600 MG/300 ML BAG IV SCH (09:00)
[2021-10-18] MEDS: FLUCONAZOLE 400 MG 200 ML IV SCH (09:30)
[2021-10-18] MEDS: HEPARIN 5,000 UNIT/1 ML VIAL SUB-Q SCH ×2 (09:37→21:41)
[2021-10-18] MEDS: FAMOTIDINE 20 MG/2 ML INJ IV SCH ×2 (09:37→21:41)
[2021-10-18] MEDS: INSULIN GLARGINE 100 UNITS/ML SUB-Q SCH (09:43)
--- NOTE | 2021-10-18 10:16 | Progress Note ---
Assessment and Plan - Patient Problems (1) Sepsis Current Visit: Yes Status: Acute Plan to address problem: Follow-up cultures. Continue antibiotics appropriately adjusted to the degree of renal function. (2) Acute renal failure Current Visit: Yes Status: Resolved Qualifiers: Acute renal failure type: unspecified Qualified Code(s): N17.9 - Acute kidney failure, unspecified Plan to address problem: Acute tubular necrosis secondary to hypotension/contrast-induced nephropathy. Kidney function has improved. Electrolytes stable. Follow-up electrolytes and renal function. (3) Acute respiratory failure with hypoxia Current Visit: Yes Status: Acute Plan to address problem: Continue weaning by home hospice aide/clin application specialist (4) Appendicitis with perforation Current Visit: Yes Status: Acute Plan to address problem: Status post surgery. Continue management by surgeon (5) Hypoalbuminemia due to protein-calorie malnutrition Current Visit: Yes Status: Acute Plan to address problem: Continue parenteral nutritional support. 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 She is on the ventilator. She is awake and communicating nonverbally. Objective - Exam Narrative Exam: Young -[place] female lying in bed in no acute distress HEENT: NCAT, endotracheal tube intact on the ventilator Neck: Supple, no venous distention CVS: S1S2 RRR with no murmur, rub or gallop Chest: Clear to auscultation Abdomen: Protuberant, soft, nontender, no organomegaly, bowel sounds are diminished Extremities: Mild edema Neuro: Awake, alert no focal deficits - Vital Signs Vital signs: Vital Signs - 12hr 10/17/21 10/17/21 10/17/21 22:30 23:00 23:30 Temperature Pulse Rate 95 H 94 H 87 Pulse Rate [ From Monitor] Respiratory 13 13 12 Rate Blood Pressure 140/81 135/78 131/73 O2 Sat by Pulse 100 100 100 Oximetry 10/17/21 10/17/21 10/18/21 23:49 23:56 00:00 Temperature 100.7 F H Pulse Rate 87 87 Pulse Rate [ 74 From Monitor] Respiratory 13 Rate Blood Pressure 131/73 124/69 O2 Sat by Pulse 100 100 Oximetry 10/18/21 10/18/21 10/18/21 00:30 01:00 01:30 Temperature Pulse Rate 86 92 H 91 H Pulse Rate [ From Monitor] Respiratory 13 12 14 Rate Blood Pressure 125/69 129/75 134/75 O2 Sat by Pulse 99 99 99 Oximetry 10/18/21 10/18/21 10/18/21 02:00 02:30 03:00 Temperature Pulse Rate 88 83 92 H Pulse Rate [ From Monitor] Respiratory 13 12 13 Rate Blood Pressure 128/71 124/71 131/78 O2 Sat by Pulse 99 99 98 Oximetry 10/18/21 10/18/21 10/18/21 03:30 03:40 04:00 Temperature 101.2 F H Pulse Rate 111 H 110 H Pulse Rate [ 74 From Monitor] Respiratory 11 L 12 Rate Blood Pressure 174/100 174/100 O2 Sat by Pulse 100 99 Oximetry 10/18/21 10/18/21 10/18/21 04:30 05:00 05:30 Temperature Pulse Rate 116 H 104 H 107 H Pulse Rate [ From Monitor] Respiratory 8 L 16 14 Rate Blood Pressure 164/102 141/95 157/98 O2 Sat by Pulse 100 99 99 Oximetry 10/18/21 10/18/21 10/18/21 05:45 06:00 06:30 Temperature 100.3 F H Pulse Rate 103 H 103 H Pulse Rate [ From Monitor] Respiratory 12 11 L Rate Blood Pressure 151/90 149/91 O2 Sat by Pulse 100 100 Oximetry 10/18/21 10/18/21 10/18/21 07:00 07:24 07:30 Temperature 100.0 F H Pulse Rate 106 H 99 H Pulse Rate [ From Monitor] Respiratory 12 10 L Rate Blood Pressure 162/96 159/94 O2 Sat by Pulse 100 100 Oximetry 10/18/21 08:00 Temperature 100 F H Pulse Rate 111 H Pulse Rate [ From Monitor] Respiratory 10 L Rate Blood Pressure 152/93 O2 Sat by Pulse 100 Oximetry - Lab 10/18/21 04:28 10/18/21 04:28 Most recent lab results ABG pH 7.342 pH Units (7.350-7.450) L 10/14/21 10:45 ABG pCO2 49.5 mm Hg 10/14/21 10:45 ABG pO2 96.0 mm Hg (80.0-90.0) H 10/14/21 10:45 ABG HCO3 26.2 mmol/L (20.0-26.0) H 10/14/21 10:45 ABG O2 Saturation 97.2 % (95.0-99.0) 10/14/21 10:45 Calcium 7.5 mg/dL (8.4-10.2) L 10/18/21 04:28 Phosphorus 2.50 mg/dL (2.5-4.5) 10/18/21 04:28 Magnesium 1.80 mg/dL (1.7-2.3) 10/18/21 04:28 Medications & Allergies - Medications Allergies/Adverse Reactions: Allergies No Known Allergies Allergy (Verified 09/24/21 12:21) Home Medications: Home Medications Medication Instructions Recorded Confirmed Last Taken Type No Known Home Medications [No 09/27/21 09/27/21 Unknown History Reported Home Medications] Active Medications: Generic Name Dose Route Start Last Admin Trade Name Freq PRN Reason Stop Dose Admin Acetaminophen 650 mg 10/08/21 21:38 Acetaminophen 325 Mg Tab PO Q6H PRN Pain, Mild (1-3) Albuterol 2.5 mg 09/24/21 18:07 Albuterol 2.5 Mg/3 Ml Nebu IH Q4HRT PRN Shortness Of Breath Dextrose 0 ml 10/03/21 12:37 Dextrose 10% *Hypoglycemia IV PRN PRN Hypoglycemia Diphenhydramine HCl 25 mg 10/04/21 15:14 10/07/21 00:34 Diphenhydramine 50 Mg/Ml Vial IV 25 mg Q6H PRN Administration Itching Famotidine 20 mg 10/08/21 22:00 10/18/21 09:37 Famotidine 20 Mg/2 Ml Inj IV 20 mg BID JAZ Administration Fentanyl 50 mcg 10/08/21 22:10 10/18/21 03:25 Fentanyl 100 Mcg/2 Ml Inj IV 50 mcg Q10MIN PRN Administration ANALGESIA Heparin Sodium (Porcine) 5,000 unit 10/16/21 10:00 10/18/21 09:37 Heparin 5,000 Unit/1 Ml Vial SUB-Q 5,000 unit Q12HR JAZ Administration Hydromorphone HCl 0.25 mg 10/08/21 21:38 Hydromorphone 1 Mg/1 Ml Inj IV Q4H PRN Pain, Moderate (4-6) Hydrophilic Ointment 1 applic 10/08/21 21:00 Lip Therapy Vaseline TP Q2HR PRN Dry Lips Metronidazole 500 mg in 100 mls @ 100 mls/hr 10/02/21 16:00 10/18/21 09:29 Flagyl 500 Mg/100 Ml IV 100 mls/hr Q8H JAZ Administration Protocol Propofol 1,000 mg in 100 mls @ 2.694 mls/hr 10/08/21 21:00 10/18/21 07:30 Diprivan 10 Mg/Ml IV 0 mcg/kg/min TITR JAZ 0 mls/hr Titration Protocol 5 MCG/KG/MIN Fentanyl Citrate 2,000 mcg in 100 mls @ 5.36 mls/hr 10/08/21 23:00 10/18/21 09:48 Fentanyl Drip Premix IV 1 mcg/kg/hr TITR JAZ 5.36 mls/hr Titration Protocol 1 MCG/KG/HR Vasopressin 20 unit/ Sodium 101 mls @ 9.09 mls/hr 10/08/21 23:00 10/09/21 14:30 Chloride IV 0 units/min TITR JAZ 0 mls/hr Titration Protocol 0.03 UNITS/MIN NORepinephrine/NS 8 MG-250 ML 8 mg in 250 mls @ 3.75 mls/hr 10/08/21 23:45 Norepinephrine/Ns 8 Mg-250 Ml (Double Conc) IV TITRATE JAZ Protocol 2 MCG/MIN Fluconazole 200 mls @ 100 mls/hr 10/13/21 10:00 10/18/21 09:30 Diflucan IV 100 mls/hr Q24HR AJZ Administration Protocol Amino Acids/Electrolytes/Dextrose 1,999.92 mls @ 83.33 mls/hr 10/17/21 20:00 10/17/21 20:52 Tpn Adult IV 10/18/21 19:59 83.33 mls/hr DAILY@2000 JAZ Administration Protocol Linezolid 600 mg in 300 mls @ 300 mls/hr 10/18/21 09:00 10/18/21 09:38 Zyvox 600mg/300ml IV 300 mls/hr Q12H JAZ Administration Protocol Insulin Glargine 5 units 10/13/21 10:00 10/18/21 09:43 Insulin Glargine 100 Units/Ml SUB-Q 5 units QDAY JAZ Administration Insulin Human Regular 0 units 10/10/21 00:00 10/18/21 06:27 Insulin Regular, Human 100 Units/1 Ml SUB-Q Not Given Q6HR [facility] Protocol Labetalol HCl 10 mg 10/01/21 08:31 10/14/21 22:32 Labetalol 20 Mg/4 Ml Inj IV 10 mg Q6H PRN Administration Hypertension Multi-Ingred Cream/Lotion/Oil/Oint 1 applic 10/08/21 21:00 Mineral Oil/Petrolatum, White Ophth Oint 3.5 Gm OU Q4HR PRN Dry Eye(s) Naloxone HCl 0.1 mg 10/03/21 14:00 Naloxone 0.4 Mg/1 Ml Inj IV Q2MIN PRN Res Rate </= 8 or 02 SAT < 92% Ondansetron HCl 4 mg 09/24/21 18:07 10/05/21 11:39 Ondansetron 4 Mg/2 Ml Inj IV 4 mg Q8H PRN Administration Nausea And Vomiting Phenol 1 spray 10/02/21 13:00 10/03/21 10:23 Phenol 1.4% 177 Ml Bottle MM 1 spray PRN PRN Administration Sore Throat Scopolamine 1 each 10/04/21 10:00 10/16/21 10:14 Scopolamine Transdermal Patch 72 Hr TD 1 each Q3D JAZ Administration Sodium Chloride 10 ml 09/24/21 22:00 10/18/21 09:39 Sodium Chloride 0.9% 10 Ml Flush Syringe IV 10 ml BID JAZ Administration Sodium Chloride 10 ml 09/24/21 18:07 09/25/21 08:34 Sodium Chloride 0.9% 10 Ml Flush Syringe IV 10 ml PRN PRN Administration LINE FLUSH
--- NOTE | 2021-10-18 10:44 | Progress Note ---
Assessment and Plan Cultures: 09/24/2021 blood culture: No growth 09/30/2021 YURIDIA drain wound culture: VRE, Enterococcus faecium 10/08/2021 blood culture: No growth 10/11/2021 intra-abdominal surgical culture: Jo Ann albicans, MSSA, stenotrophom onas 10/12/2021 tracheal culture: No growth 10/18/2021 blood culture: In process A/P: 31-year-old female past medical history obesity, nephrolithiasis admitted with: #Sepsis: Secondary to intra-abdominal infection. 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 #Obesity Recs: -Fevers, several etiologies possible, has indwelling central lines, Doss catheter, multiple abdominal surgeries and exposure to broad-spectrum antibiotics -consider Doss removal if possible -Existing cultures reviewed, start empiric meropenem, fluconazole, Bactrim. D/W pharmacy -linezolid, Flagyl discontinued -f/u final culture results Mónica Swan MD, FACP, [facility] ([facility] O: [phone] F: [phone] C: [phone] Subjective Date of service: 10/18/21 Principal diagnosis: Septic shock; AHRF; PNA; BRYANNA; s/p appendectomy; VRE infection; Peritonitis Interval history: Patient has been having fevers with a T-max of 101.2 F last night. Remains on the vent, awake. Discussed with RN. Has central line, midline, indwelling Doss catheter. She is on TPN. NG tube to intermittent suction. Objective - Exam Narrative Exam: Physical Exam: Constitutional: Awake, intubated, on the vent Head, Ears, Nose: Normocephalic, atraumatic. External ears, nose normal Eyes: Conjunctivae/corneas clear. No icterus. No ptosis. Neck: intubated Oral: intubated Cardiovascular: S1, S2 + Respiratory: AE fair bilaterally and equal GI: Soft, dressing, drain present, colostomy present Musculoskeletal: Obese, edema present Skin: No rash or abscess Hem/Lymphatic: No palpable cervical or supraclavicular nodes. No lymphangitis Psych: no agitation Neurological: Awake, intubated, on the vent, responsive - Constitutional Vitals: Vital Signs Temp Pulse Resp BP Pulse Ox 100 F H 111 H 10 L 152/93 100 10/18/21 08:00 10/18/21 08:00 10/18/21 08:00 10/18/21 08:00 10/18/21 08:00 Temperature -Last 24 Hours Temperature 100 F Temperature 100.0 F Temperature 100.3 F Temperature 101.2 F Temperature 100.7 F Temperature 100.5 F Temperature 99.8 F Temperature 99.9 F Temperature 100.1 F Temperature 100.1 F Temperature 99.8 F - Labs CBC & Chem 7: 10/18/21 04:28 10/18/21 04:28 Labs: Abnormal lab results 10/17/21 10/17/21 10/17/21 Range/Units 11:45 12:50 16:13 WBC (4.5-11.0) K/mm3 RBC (3.65-5.03) M/mm3 Hgb (10.1-14.3) gm/dl Hct (30.3-42.9) % RDW (13.2-15.2) % Plt Count (140-440) K/mm3 BUN (7-17) mg/dL Glucose (65-100) mg/dL POC Glucose 145 H 128 H (70-105) mg/dL Calcium (8.4-10.2) mg/dL ALT (7-56) units/L Total Protein (6.3-8.2) g/dL Albumin (3.9-5) g/dL Crossmatch See Detail 10/17/21 10/18/21 10/18/21 Range/Units 23:46 04:28 04:28 WBC 16.6 H (4.5-11.0) K/mm3 RBC 2.81 L (3.65-5.03) M/mm3 Hgb 8.4 L (10.1-14.3) gm/dl Hct 24.4 L (30.3-42.9) % RDW 16.8 H (13.2-15.2) % Plt Count 516 H (140-440) K/mm3 BUN 26 H (7-17) mg/dL Glucose 144 H (65-100) mg/dL POC Glucose 124 H (70-105) mg/dL Calcium 7.5 L (8.4-10.2) mg/dL ALT 6 L (7-56) units/L Total Protein 6.1 L (6.3-8.2) g/dL Albumin 2.0 L (3.9-5) g/dL Crossmatch 10/18/21 Range/Units 05:19 WBC (4.5-11.0) K/mm3 RBC (3.65-5.03) M/mm3 Hgb (10.1-14.3) gm/dl Hct (30.3-42.9) % RDW (13.2-15.2) % Plt Count (140-440) K/mm3 BUN (7-17) mg/dL Glucose (65-100) mg/dL POC Glucose 128 H (70-105) mg/dL Calcium (8.4-10.2) mg/dL ALT (7-56) units/L Total Protein (6.3-8.2) g/dL Albumin (3.9-5) g/dL Crossmatch
[2021-10-18] MEDS: ONDANSETRON 4 MG/2 ML INJ IV PRN ×2 (11:31→19:21)
[2021-10-18 11:45] LABS: ABG Base Excess 4.9 mmol/L (-2.0-3.0); ABG Methemoglobin 0.6 % (0.0-1.5); ABG Oxygen Saturation 97.3 % (95.0-99.0); ABG PCO2 41.1 mm Hg; ABG PH 7.466 pH Units (7.350-7.450); ABG PO2 90.6 mm Hg (80.0-90.0)
[2021-10-18] MEDS: WATER IV SCH ×2 (12:14→18:33)
[2021-10-18] MEDS: SMX IV SCH ×2 (12:14→18:33)
[2021-10-18] MEDS: DEXTROSE 5% IV SCH ×2 (12:14→18:33)
[2021-10-18] MEDS: TMP IV SCH ×2 (12:14→18:33)
[2021-10-18] MEDS: MEROPENEM/NS 1 GRAM/100 ML 1 GRAM/100 ML BAG IV SCH ×3 (12:23→23:27)
--- NOTE | 2021-10-18 12:36 | Progress Note ---
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 Open left hemicolectomy and partial omentectomy Peritonitis Leukocytosis Diverticulitis with absces -CT abd/pelvis showed diverticulitis with abscess -General surgery following, assistance appreciated -s/p diagnositic laparatomy and drain placement 09/26/2021 Returned to the OR on 09/30/2021 for left hemicolectomy, appendectomy, and partial omentectomy -Wound culture +VRE Acute renal failure 09/08 ATN/Vasomotor nephropathy Acute blood loss anemia Gross Hematuria-resolved -09/08 to surgical procedures-- c/f ureteral injury -s/p 3 units of pRBCs since admission SBT today, get weaning parameters- if acceptable, plan is to liberate from MVS - continue to titrate supplemental oxygen to keep SPO2 88-90% - VAP bundle addressed, aspiration precautions, HOB >40 -CXR , ABG as indicated -trend temperature curve, trend WCC -Antibiotics per ID. -NPO, TPN for nutritional support - continue bronchodilators with pulmonary hygiene per RT - Accuchecks with glycemic control per SSI (While critically ill target blood glucose of 140-180 mg/dL; avoid hypoglycemia) - sedation prn for target RASS 0 to -1, decrease Propofol -Titrate analgesia to CPOT >3 - continue to avoid benzodiazepines, reduce the possibility of delirium - prn analgesia per CPOT score - Maintenance of sleep-wake cycle, avoid delirium - Stress prophylaxis -VTE prophylaxis- SCDs, the patient has had acute blood loss anemia, required supportive transfusions -Supportive transfusions, to keep HgB >7g/dL -Avoid nephrotoxins and dose all medications for GFR and CrCL - mobility, off loading and frequent turning to prevent pressure ulcer - Monitor hemodynamics closely - continue other care per attending / other consultants CONDITION: CRITICAL PROGNOSIS: GUARDED CODE STATUS: FULL CODE The high probability of a clinically significant, sudden or life-threatening deterioration of the [respiratory, cardiovascular and hematologic] system(s) required my full and direct attention, intervention and personal management. The aggregate critical care time was [32] minutes without overlap. 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 s/p appendectomy; VRE infection; Open left hemicolectomy and partial omentectomy; Peritonitis; Diverticulitis with abscess;BRYANNA; ABLA; Gross Hematuria Seen and examined at bedside; 24hour events reviewed; nursing and respiratory care staff consulted; no adverse overnight events reported to me; resting in bed; remains on MVS; denies acute chest pain; denies N/V/F/C; good pain control per patient Objective Vital Signs - 12hr 10/18/21 10/18/21 10/18/21 01:00 01:30 02:00 Temperature Pulse Rate 92 H 91 H 88 Pulse Rate [ From Monitor] Respiratory 12 14 13 Rate Blood Pressure 129/75 134/75 128/71 O2 Sat by Pulse 99 99 99 Oximetry 10/18/21 10/18/21 10/18/21 02:30 03:00 03:30 Temperature Pulse Rate 83 92 H 111 H Pulse Rate [ From Monitor] Respiratory 12 13 11 L Rate Blood Pressure 124/71 131/78 174/100 O2 Sat by Pulse 99 98 100 Oximetry 10/18/21 10/18/21 10/18/21 03:40 04:00 04:30 Temperature 101.2 F H Pulse Rate 110 H 116 H Pulse Rate [ 74 From Monitor] Respiratory 12 8 L Rate Blood Pressure 174/100 164/102 O2 Sat by Pulse 99 100 Oximetry 10/18/21 10/18/21 10/18/21 05:00 05:30 05:45 Temperature 100.3 F H Pulse Rate 104 H 107 H Pulse Rate [ From Monitor] Respiratory 16 14 Rate Blood Pressure 141/95 157/98 O2 Sat by Pulse 99 99 Oximetry 10/18/21 10/18/21 10/18/21 06:00 06:30 07:00 Temperature Pulse Rate 103 H 103 H 106 H Pulse Rate [ From Monitor] Respiratory 12 11 L 12 Rate Blood Pressure 151/90 149/91 162/96 O2 Sat by Pulse 100 100 100 Oximetry 10/18/21 10/18/21 10/18/21 07:24 07:30 08:00 Temperature 100.0 F H 100 F H Pulse Rate 99 H 111 H Pulse Rate [ 74 From Monitor] Respiratory 10 L 14 Rate Blood Pressure 159/94 152/93 O2 Sat by Pulse 100 99 Oximetry 10/18/21 11:30 Temperature Pulse Rate 116 H Pulse Rate [ From Monitor] Respiratory 12 Rate Blood Pressure 160/86 O2 Sat by Pulse 100 Oximetry Constitutional: no acute distress, alert, other (Orally intuabted, ) Eyes: non-icteric ENT: oropharynx dry, other (orally intubated ETT 7.5cm @24 at the lip) Neck: supple, other (RIJCVL) Effort: normal Ascultation: Bilateral: diminished breath sounds, rhonchi Percussion: Bilateral: not dull Cardiovascular: regular rate and rhythm, other (S1,S2) Gastrointestinal: hypoactive bowel sounds, other (YURIDIA drains, anterior abdominal dressings, Doss catheter) Integumentary: other (tatooed) Extremities: cool, edema Neurologic: normal mental status, non-focal exam, pupils equal and round, motor strength normal and Psychiatric: mood appropriate, affect normal CBC and BMP: 10/19/21 04:23 10/19/21 04:23 ABG, PT/INR, D-dimer: ABG ABG pH 7.466 pH Units (7.350-7.450) H 10/18/21 11:34 ABG pCO2 41.1 mm Hg 10/18/21 11:34 ABG pO2 90.6 mm Hg (80.0-90.0) H 10/18/21 11:34 ABG O2 Saturation 97.3 % (95.0-99.0) 10/18/21 11:34 PT/INR, D-dimer PT 19.0 Sec. (12.2-14.9) H 10/14/21 04:05 INR 1.41 (0.87-1.13) H 10/14/21 04:05 D-Dimer > 14397 ng/mlDDU (0-234) H 10/09/21 08:45 Abnormal lab findings: Abnormal Labs 09/24/21 09/24/21 09/24/21 14:49 14:58 14:58 WBC 32.4 H RBC Hgb Hct MCH RDW Plt Count 535 H [place] # (Auto) Seg Neutrophils % Seg Neuts % (Manual) 82.0 H Lymphocytes % (Manual) 2.0 L Monocytes % (Manual) Nucleated RBC % Seg Neutrophils # Seg Neutrophils # Man 26.6 H Lymphocytes # (Manual) 0.6 L Monocytes # (Manual) 1.6 H PT INR D-Dimer ABG pH ABG pO2 ABG HCO3 ABG O2 Saturation ABG Base Excess ABG Hemoglobin Oxyhemoglobin Sodium 134 L Potassium 3.5 L Chloride 97.6 L Carbon Dioxide BUN Creatinine Glucose 119 H POC Glucose Lactic Acid Calcium Phosphorus Magnesium Ferritin ALT Lactate Dehydrogenase Total Creatine Kinase C-Reactive Protein Total Protein 6.1 L Albumin 3.3 L U Epithel Cells (Auto) 18.0 H Crossmatch 09/25/21 09/25/21 09/26/21 05:47 05:47 04:20 WBC 25.4 H 23.6 H RBC 3.54 L Hgb Hct MCH RDW Plt Count 466 H 486 H [place] # (Auto) Seg Neutrophils % Seg Neuts % (Manual) 93.0 H 86.0 H Lymphocytes % (Manual) 4.0 L 3.0 L Monocytes % (Manual) Nucleated RBC % Seg Neutrophils # Seg Neutrophils # Man 23.6 H 20.3 H Lymphocytes # (Manual) 1.0 L 0.7 L Monocytes # (Manual) 0.9 H PT INR D-Dimer ABG pH ABG pO2 ABG HCO3 ABG O2 Saturation ABG Base Excess ABG Hemoglobin Oxyhemoglobin Sodium 136 L Potassium 3.0 L Chloride Carbon Dioxide 21 L BUN Creatinine Glucose POC Glucose Lactic Acid Calcium 7.8 L Phosphorus Magnesium Ferritin ALT Lactate Dehydrogenase Total Creatine Kinase C-Reactive Protein Total Protein Albumin U Epithel Cells (Auto) Crossmatch 09/26/21 09/27/21 09/27/21 04:20 08:28 08:28 WBC 20.6 H RBC 3.42 L Hgb 9.9 L Hct 29.5 L D MCH RDW Plt Count [place] # (Auto) Seg Neutrophils % Seg Neuts % (Manual) 94.1 H Lymphocytes % (Manual) 1.0 L Monocytes % (Manual) Nucleated RBC % Seg Neutrophils # Seg Neutrophils # Man 19.4 H Lymphocytes # (Manual) 0.2 L Monocytes # (Manual) PT INR D-Dimer ABG pH ABG pO2 ABG HCO3 ABG O2 Saturation ABG Base Excess ABG Hemoglobin Oxyhemoglobin Sodium Potassium 3.2 L Chloride Carbon Dioxide 20 L BUN Creatinine Glucose 137 H POC Glucose Lactic Acid Calcium 8.3 L 8.2 L Phosphorus Magnesium Ferritin ALT Lactate Dehydrogenase Total Creatine Kinase C-Reactive Protein Total Protein Albumin U Epithel Cells (Auto) Crossmatch 09/28/21 09/28/21 09/29/21 04:55 15:35 07:02 WBC 15.1 H 16.5 H RBC 3.34 L 3.20 L Hgb 9.3 L 9.1 L Hct 28.7 L 27.3 L MCH RDW 15.3 H Plt Count 444 H 469 H [place] # (Auto) 0.9 H Seg Neutrophils % 89.3 H Seg Neuts % (Manual) 88.0 H 80.0 H Lymphocytes % (Manual) 9.0 L 8.0 L Monocytes % (Manual) Nucleated RBC % Seg Neutrophils # 14.0 H Seg Neutrophils # Man 13.3 H 13.2 H Lymphocytes # (Manual) Monocytes # (Manual) PT INR D-Dimer ABG pH ABG pO2 ABG HCO3 ABG O2 Saturation ABG Base Excess ABG Hemoglobin Oxyhemoglobin Sodium Potassium 3.3 L Chloride 109.4 H Carbon Dioxide 20 L BUN Creatinine 0.5 L Glucose POC Glucose Lactic Acid Calcium 7.9 L Phosphorus Magnesium Ferritin ALT Lactate Dehydrogenase Total Creatine Kinase C-Reactive Protein Total Protein Albumin U Epithel Cells (Auto) Crossmatch 09/30/21 09/30/21 10/01/21 05:40 05:40 07:49 WBC 17.4 H 17.9 H RBC 3.37 L 3.32 L Hgb 9.2 L 9.3 L Hct 28.4 L 28.3 L MCH 27 L RDW 15.4 H 15.5 H Plt Count 530 H 604 H [place] # (Auto) Seg Neutrophils % Seg Neuts % (Manual) 91.0 H 72.0 H Lymphocytes % (Manual) 9.0 L 1.0 L Monocytes % (Manual) 8.0 H Nucleated RBC % 1.0 H Seg Neutrophils # Seg Neutrophils # Man 15.8 H 12.9 H Lymphocytes # (Manual) 0.2 L Monocytes # (Manual) 1.4 H PT INR D-Dimer ABG pH ABG pO2 ABG HCO3 ABG O2 Saturation ABG Base Excess ABG Hemoglobin Oxyhemoglobin Sodium Potassium 3.5 L Chloride Carbon Dioxide 21 L BUN Creatinine 0.5 L Glucose POC Glucose Lactic Acid Calcium 8.0 L Phosphorus Magnesium Ferritin ALT Lactate Dehydrogenase Total Creatine Kinase C-Reactive Protein Total Protein Albumin U Epithel Cells (Auto) Crossmatch 10/01/21 10/01/21 10/02/21 07:49 10:45 05:41 WBC 23.2 H RBC 2.90 L Hgb 7.9 L Hct 24.8 L MCH 27 L RDW 15.3 H Plt Count 621 H [place] # (Auto) Seg Neutrophils % Seg Neuts % (Manual) 88.0 H Lymphocytes % (Manual) 2.0 L Monocytes % (Manual) Nucleated RBC % Seg Neutrophils # Seg Neutrophils # Man 20.4 H Lymphocytes # (Manual) 0.5 L Monocytes # (Manual) 1.4 H PT INR D-Dimer ABG pH ABG pO2 ABG HCO3 ABG O2 Saturation ABG Base Excess ABG Hemoglobin Oxyhemoglobin Sodium Potassium Chloride Carbon Dioxide 20 L BUN Creatinine 0.5 L Glucose POC Glucose Lactic Acid Calcium 7.6 L Phosphorus Magnesium Ferritin ALT Lactate Dehydrogenase Total Creatine Kinase C-Reactive Protein Total Protein Albumin U Epithel Cells (Auto) Crossmatch See Detail 10/02/21 10/02/21 10/02/21 05:41 07:47 11:10 WBC RBC Hgb Hct MCH RDW Plt Count [place] # (Auto) Seg Neutrophils % Seg Neuts % (Manual) Lymphocytes % (Manual) Monocytes % (Manual) Nucleated RBC % Seg Neutrophils # Seg Neutrophils # Man Lymphocytes # (Manual) Monocytes # (Manual) PT INR D-Dimer ABG pH ABG pO2 ABG HCO3 ABG O2 Saturation ABG Base Excess ABG Hemoglobin Oxyhemoglobin Sodium Potassium Chloride Carbon Dioxide BUN Creatinine Glucose 130 H POC Glucose 145 H 120 H Lactic Acid Calcium 6.9 L Phosphorus Magnesium Ferritin ALT Lactate Dehydrogenase Total Creatine Kinase C-Reactive Protein Total Protein Albumin U Epithel Cells (Auto) Crossmatch 10/02/21 10/03/21 10/03/21 16:14 04:55 04:55 WBC 26.1 H RBC 2.31 L Hgb 6.3 L Hct 19.8 L* MCH RDW 15.9 H Plt Count 598 H [place] # (Auto) Seg Neutrophils % Seg Neuts % (Manual) 82.0 H Lymphocytes % (Manual) 1.0 L Monocytes % (Manual) 10.0 H Nucleated RBC % Seg Neutrophils # Seg Neutrophils # Man 21.4 H Lymphocytes # (Manual) 0.3 L Monocytes # (Manual) 2.6 H PT INR D-Dimer ABG pH ABG pO2 ABG HCO3 ABG O2 Saturation ABG Base Excess ABG Hemoglobin Oxyhemoglobin Sodium Potassium Chloride Carbon Dioxide BUN 22 H Creatinine 1.7 H D Glucose 145 H POC Glucose 109 H Lactic Acid Calcium 6.4 L Phosphorus Magnesium 2.40 H Ferritin ALT Lactate Dehydrogenase Total Creatine Kinase C-Reactive Protein Total Protein 4.2 L Albumin 1.6 L U Epithel Cells (Auto) Crossmatch 10/03/21 10/03/21 10/03/21 07:15 11:49 17:06 WBC RBC Hgb Hct MCH RDW Plt Count [place] # (Auto) Seg Neutrophils % Seg Neuts % (Manual) Lymphocytes % (Manual) Monocytes % (Manual) Nucleated RBC % Seg Neutrophils # Seg Neutrophils # Man Lymphocytes # (Manual) Monocytes # (Manual) PT INR D-Dimer ABG pH ABG pO2 ABG HCO3 ABG O2 Saturation ABG Base Excess ABG Hemoglobin Oxyhemoglobin Sodium Potassium Chloride Carbon Dioxide BUN Creatinine Glucose POC Glucose 162 H 171 H 174 H Lactic Acid Calcium Phosphorus Magnesium Ferritin ALT Lactate Dehydrogenase Total Creatine Kinase C-Reactive Protein Total Protein Albumin U Epithel Cells (Auto) Crossmatch 10/03/21 10/04/21 10/04/21 23:31 04:44 04:44 WBC 26.4 H RBC 2.33 L Hgb 6.6 L Hct 19.4 L* MCH RDW 16.1 H Plt Count 602 H [place] # (Auto) Seg Neutrophils % Seg Neuts % (Manual) 80.0 H Lymphocytes % (Manual) 5.0 L Monocytes % (Manual) Nucleated RBC % Seg Neutrophils # Seg Neutrophils # Man 21.1 H Lymphocytes # (Manual) Monocytes # (Manual) 1.8 H PT INR D-Dimer ABG pH ABG pO2 ABG HCO3 ABG O2 Saturation ABG Base Excess ABG Hemoglobin Oxyhemoglobin Sodium 135 L Potassium 3.4 L Chloride Carbon Dioxide 21 L BUN 28 H Creatinine 2.0 H Glucose 171 H POC Glucose 179 H Lactic Acid Calcium 6.7 L Phosphorus 1.30 L D Magnesium 2.40 H Ferritin ALT Lactate Dehydrogenase Total Creatine Kinase C-Reactive Protein Total Protein Albumin U Epithel Cells (Auto) Crossmatch 10/04/21 10/04/21 10/04/21 05:25 12:01 13:30 WBC RBC Hgb Hct MCH RDW Plt Count [place] # (Auto) Seg Neutrophils % Seg Neuts % (Manual) Lymphocytes % (Manual) Monocytes % (Manual) Nucleated RBC % Seg Neutrophils # Seg Neutrophils # Man Lymphocytes # (Manual) Monocytes # (Manual) PT INR D-Dimer ABG pH ABG pO2 ABG HCO3 ABG O2 Saturation ABG Base Excess ABG Hemoglobin Oxyhemoglobin Sodium Potassium Chloride Carbon Dioxide BUN Creatinine Glucose POC Glucose 174 H 172 H Lactic Acid Calcium Phosphorus Magnesium Ferritin ALT Lactate Dehydrogenase Total Creatine Kinase C-Reactive Protein Total Protein Albumin U Epithel Cells (Auto) Crossmatch See Detail 10/04/21 10/04/21 10/04/21 16:47 20:28 22:23 WBC RBC Hgb 8.5 L Hct 25.1 L MCH RDW Plt Count [place] # (Auto) Seg Neutrophils % Seg Neuts % (Manual) Lymphocytes % (Manual) Monocytes % (Manual) Nucleated RBC % Seg Neutrophils # Seg Neutrophils # Man Lymphocytes # (Manual) Monocytes # (Manual) PT INR D-Dimer ABG pH ABG pO2 ABG HCO3 ABG O2 Saturation ABG Base Excess ABG Hemoglobin Oxyhemoglobin Sodium Potassium Chloride Carbon Dioxide BUN Creatinine Glucose POC Glucose 135 H 152 H Lactic Acid Calcium Phosphorus Magnesium Ferritin ALT Lactate Dehydrogenase Total Creatine Kinase C-Reactive Protein Total Protein Albumin U Epithel Cells (Auto) Crossmatch 10/05/21 10/05/21 10/05/21 04:40 04:40 04:40 WBC 24.7 H RBC 3.02 L Hgb 8.4 L Hct 25.5 L MCH RDW 16.2 H Plt Count 644 H [place] # (Auto) Seg Neutrophils % Seg Neuts % (Manual) 91.0 H Lymphocytes % (Manual) 7.0 L Monocytes % (Manual) Nucleated RBC % Seg Neutrophils # Seg Neutrophils # Man 22.5 H Lymphocytes # (Manual) Monocytes # (Manual) PT 17.8 H INR 1.31 H D-Dimer ABG pH ABG pO2 ABG HCO3 ABG O2 Saturation ABG Base Excess ABG Hemoglobin Oxyhemoglobin Sodium 135 L Potassium Chloride Carbon Dioxide BUN 29 H Creatinine 2.1 H Glucose 156 H POC Glucose Lactic Acid Calcium 7.6 L Phosphorus 1.90 L D Magnesium Ferritin ALT Lactate Dehydrogenase Total Creatine Kinase C-Reactive Protein Total Protein 5.2 L D Albumin 1.8 L U Epithel Cells (Auto) Crossmatch 10/05/21 10/05/2122 05:08 18:17 23:37 WBC RBC Hgb Hct MCH RDW Plt Count [place] # (Auto) Seg Neutrophils % Seg Neuts % (Manual) Lymphocytes % (Manual) Monocytes % (Manual) Nucleated RBC % Seg Neutrophils # Seg Neutrophils # Man Lymphocytes # (Manual) Monocytes # (Manual) PT INR D-Dimer ABG pH ABG pO2 ABG HCO3 ABG O2 Saturation ABG Base Excess ABG Hemoglobin Oxyhemoglobin Sodium Potassium Chloride Carbon Dioxide BUN Creatinine Glucose POC Glucose 156 H 119 H 130 H Lactic Acid Calcium Phosphorus Magnesium Ferritin ALT Lactate Dehydrogenase Total Creatine Kinase C-Reactive Protein Total Protein Albumin U Epithel Cells (Auto) Crossmatch 10/06/21 10/06/21 10/06/21 04:27 05:27 05:27 WBC 23.4 H RBC 2.84 L Hgb 7.8 L Hct 23.9 L MCH RDW 16.2 H Plt Count 712 H [place] # (Auto) Seg Neutrophils % Seg Neuts % (Manual) Lymphocytes % (Manual) Monocytes % (Manual) Nucleated RBC % Seg Neutrophils # Seg Neutrophils # Man Lymphocytes # (Manual) Monocytes # (Manual) PT INR D-Dimer ABG pH ABG pO2 ABG HCO3 ABG O2 Saturation ABG Base Excess ABG Hemoglobin Oxyhemoglobin Sodium 134 L Potassium Chloride Carbon Dioxide 20 L BUN 28 H Creatinine 1.9 H Glucose 132 H POC Glucose 132 H Lactic Acid Calcium 7.8 L Phosphorus Magnesium Ferritin ALT Lactate Dehydrogenase Total Creatine Kinase 242 H C-Reactive Protein Total Protein Albumin U Epithel Cells (Auto) Crossmatch 10/06/21 10/06/21 10/06/21 16:40 20:50 23:39 WBC RBC Hgb Hct MCH RDW Plt Count [place] # (Auto) Seg Neutrophils % Seg Neuts % (Manual) Lymphocytes % (Manual) Monocytes % (Manual) Nucleated RBC % Seg Neutrophils # Seg Neutrophils # Man Lymphocytes # (Manual) Monocytes # (Manual) PT INR D-Dimer ABG pH ABG pO2 ABG HCO3 ABG O2 Saturation ABG Base Excess ABG Hemoglobin Oxyhemoglobin Sodium Potassium Chloride Carbon Dioxide BUN Creatinine Glucose POC Glucose 133 H 116 H 132 H Lactic Acid Calcium Phosphorus Magnesium Ferritin ALT Lactate Dehydrogenase Total Creatine Kinase C-Reactive Protein Total Protein Albumin U Epithel Cells (Auto) Crossmatch 10/07/21 10/07/21 10/07/21 05:09 05:13 09:43 WBC 22.3 H RBC 2.81 L Hgb 7.8 L Hct 24.0 L MCH RDW 16.5 H Plt Count 733 H [place] # (Auto) Seg Neutrophils % Seg Neuts % (Manual) 85.0 H Lymphocytes % (Manual) 1.0 L Monocytes % (Manual) Nucleated RBC % Seg Neutrophils # Seg Neutrophils # Man 19.0 H Lymphocytes # (Manual) 0.2 L Monocytes # (Manual) 1.6 H PT INR D-Dimer ABG pH ABG pO2 ABG HCO3 ABG O2 Saturation ABG Base Excess ABG Hemoglobin Oxyhemoglobin Sodium 136 L Potassium Chloride Carbon Dioxide 20 L BUN 29 H Creatinine 1.9 H Glucose 140 H POC Glucose 139 H Lactic Acid Calcium 7.6 L Phosphorus Magnesium Ferritin ALT Lactate Dehydrogenase Total Creatine Kinase C-Reactive Protein Total Protein Albumin U Epithel Cells (Auto) Crossmatch 10/07/21 10/07/21 10/08/21 11:38 17:44 00:20 WBC RBC Hgb Hct MCH RDW Plt Count [place] # (Auto) Seg Neutrophils % Seg Neuts % (Manual) Lymphocytes % (Manual) Monocytes % (Manual) Nucleated RBC % Seg Neutrophils # Seg Neutrophils # Man Lymphocytes # (Manual) Monocytes # (Manual) PT INR D-Dimer ABG pH ABG pO2 ABG HCO3 ABG O2 Saturation ABG Base Excess ABG Hemoglobin Oxyhemoglobin Sodium Potassium Chloride Carbon Dioxide BUN Creatinine Glucose POC Glucose 126 H 113 H 129 H Lactic Acid Calcium Phosphorus Magnesium Ferritin ALT Lactate Dehydrogenase Total Creatine Kinase C-Reactive Protein Total Protein Albumin U Epithel Cells (Auto) Crossmatch 10/08/21 10/08/21 10/08/21 05:26 05:26 05:29 WBC 21.8 H RBC 2.84 L Hgb 7.8 L Hct 24.1 L MCH 27 L RDW 16.5 H Plt Count 789 H [place] # (Auto) Seg Neutrophils % Seg Neuts % (Manual) Lymphocytes % (Manual) Monocytes % (Manual) Nucleated RBC % Seg Neutrophils # Seg Neutrophils # Man Lymphocytes # (Manual) Monocytes # (Manual) PT INR D-Dimer ABG pH ABG pO2 ABG HCO3 ABG O2 Saturation ABG Base Excess ABG Hemoglobin Oxyhemoglobin Sodium 136 L Potassium Chloride Carbon Dioxide 20 L BUN 31 H Creatinine 1.7 H Glucose 134 H POC Glucose 123 H Lactic Acid Calcium 7.9 L Phosphorus 4.60 H D Magnesium Ferritin ALT Lactate Dehydrogenase Total Creatine Kinase C-Reactive Protein Total Protein Albumin U Epithel Cells (Auto) Crossmatch 10/08/21 10/08/21 10/08/21 11:53 17:07 20:08 WBC RBC Hgb Hct MCH RDW Plt Count [place] # (Auto) Seg Neutrophils % Seg Neuts % (Manual) Lymphocytes % (Manual) Monocytes % (Manual) Nucleated RBC % Seg Neutrophils # Seg Neutrophils # Man Lymphocytes # (Manual) Monocytes # (Manual) PT INR D-Dimer ABG pH 7.308 L ABG pO2 40.2 L ABG HCO3 15.7 L ABG O2 Saturation 68 L ABG Base Excess -9.6 L ABG Hemoglobin 9.7 L Oxyhemoglobin 67.8 L Sodium Potassium Chloride Carbon Dioxide BUN Creatinine Glucose POC Glucose 128 H 139 H Lactic Acid Calcium Phosphorus Magnesium Ferritin ALT Lactate Dehydrogenase Total Creatine Kinase C-Reactive Protein Total Protein Albumin U Epithel Cells (Auto) Crossmatch 10/08/21 10/08/21 10/08/21 21:30 22:55 22:55 WBC RBC Hgb Hct MCH RDW Plt Count [place] # (Auto) Seg Neutrophils % Seg Neuts % (Manual) Lymphocytes % (Manual) Monocytes % (Manual) Nucleated RBC % Seg Neutrophils # Seg Neutrophils # Man Lymphocytes # (Manual) Monocytes # (Manual) PT INR D-Dimer ABG pH ABG pO2 43.8 L ABG HCO3 19.5 L ABG O2 Saturation 70.7 L ABG Base Excess -5.3 L ABG Hemoglobin 8.6 L Oxyhemoglobin 69.4 L Sodium Potassium Chloride Carbon Dioxide BUN Creatinine Glucose POC Glucose Lactic Acid 2.50 H* Calcium Phosphorus Magnesium Ferritin ALT Lactate Dehydrogenase Total Creatine Kinase C-Reactive Protein Total Protein Albumin U Epithel Cells (Auto) Crossmatch See Detail 10/09/21 10/09/21 10/09/21 03:12 05:31 05:31 WBC 20.3 H RBC 2.70 L Hgb 7.4 L Hct 23.1 L MCH 27 L RDW 16.6 H Plt Count 786 H [place] # (Auto) Seg Neutrophils % Seg Neuts % (Manual) 88.0 H Lymphocytes % (Manual) 3.0 L Monocytes % (Manual) Nucleated RBC % Seg Neutrophils # Seg Neutrophils # Man 17.9 H Lymphocytes # (Manual) 0.6 L Monocytes # (Manual) 1.2 H PT INR D-Dimer ABG pH ABG pO2 ABG HCO3 ABG O2 Saturation ABG Base Excess ABG Hemoglobin Oxyhemoglobin Sodium 136 L Potassium Chloride Carbon Dioxide 20 L BUN 32 H Creatinine 1.5 H Glucose 214 H POC Glucose 190 H Lactic Acid Calcium 7.5 L Phosphorus Magnesium Ferritin ALT Lactate Dehydrogenase Total Creatine Kinase C-Reactive Protein Total Protein 5.8 L Albumin 2.3 L U Epithel Cells (Auto) Crossmatch 10/09/21 10/09/21 10/09/21 05:31 05:31 05:31 WBC RBC Hgb Hct MCH RDW Plt Count [place] # (Auto) Seg Neutrophils % Seg Neuts % (Manual) Lymphocytes % (Manual) Monocytes % (Manual) Nucleated RBC % Seg Neutrophils # Seg Neutrophils # Man Lymphocytes # (Manual) Monocytes # (Manual) PT INR D-Dimer ABG pH ABG pO2 ABG HCO3 ABG O2 Saturation ABG Base Excess ABG Hemoglobin Oxyhemoglobin Sodium Potassium Chloride Carbon Dioxide BUN Creatinine Glucose POC Glucose Lactic Acid 2.20 H* Calcium Phosphorus Magnesium Ferritin 751.9 H ALT Lactate Dehydrogenase Total Creatine Kinase C-Reactive Protein 15.90 H Total Protein Albumin U Epithel Cells (Auto) Crossmatch 10/09/21 10/09/21 10/09/21 05:31 08:45 12:08 WBC RBC Hgb Hct MCH RDW Plt Count [place] # (Auto) Seg Neutrophils % Seg Neuts % (Manual) Lymphocytes % (Manual) Monocytes % (Manual) Nucleated RBC % Seg Neutrophils # Seg Neutrophils # Man Lymphocytes # (Manual) Monocytes # (Manual) PT INR D-Dimer > 83464 H ABG pH ABG pO2 54.3 L ABG HCO3 ABG O2 Saturation 86.6 L ABG Base Excess -2.6 L ABG Hemoglobin 7.2 L Oxyhemoglobin 85.3 L Sodium Potassium Chloride Carbon Dioxide BUN Creatinine Glucose POC Glucose Lactic Acid Calcium Phosphorus Magnesium Ferritin ALT Lactate Dehydrogenase 472 H Total Creatine Kinase C-Reactive Protein Total Protein Albumin U Epithel Cells (Auto) Crossmatch 10/09/21 10/09/21 10/10/21 12:19 17:43 00:30 WBC RBC Hgb Hct MCH RDW Plt Count [place] # (Auto) Seg Neutrophils % Seg Neuts % (Manual) Lymphocytes % (Manual) Monocytes % (Manual) Nucleated RBC % Seg Neutrophils # Seg Neutrophils # Man Lymphocytes # (Manual) Monocytes # (Manual) PT INR D-Dimer ABG pH ABG pO2 ABG HCO3 ABG O2 Saturation ABG Base Excess ABG Hemoglobin Oxyhemoglobin Sodium Potassium Chloride Carbon Dioxide BUN Creatinine Glucose POC Glucose 151 H 136 H 132 H Lactic Acid Calcium Phosphorus Magnesium Ferritin ALT Lactate Dehydrogenase Total Creatine Kinase C-Reactive Protein Total Protein Albumin U Epithel Cells (Auto) Crossmatch 10/10/21 10/10/21 10/10/21 04:10 04:10 05:41 WBC 20.8 H RBC 2.54 L Hgb 7.1 L Hct 21.8 L MCH RDW 16.6 H Plt Count 740 H [place] # (Auto) Seg Neutrophils % Seg Neuts % (Manual) Lymphocytes % (Manual) Monocytes % (Manual) Nucleated RBC % Seg Neutrophils # Seg Neutrophils # Man Lymphocytes # (Manual) Monocytes # (Manual) PT INR D-Dimer ABG pH ABG pO2 ABG HCO3 ABG O2 Saturation ABG Base Excess ABG Hemoglobin Oxyhemoglobin Sodium 130 L Potassium Chloride 97.9 L Carbon Dioxide 19 L BUN 37 H Creatinine 1.4 H Glucose 181 H POC Glucose 150 H Lactic Acid Calcium 7.8 L Phosphorus Magnesium Ferritin ALT Lactate Dehydrogenase Total Creatine Kinase C-Reactive Protein Total Protein Albumin U Epithel Cells (Auto) Crossmatch 10/10/21 10/10/21 10/10/21 11:10 16:00 23:50 WBC RBC Hgb Hct MCH RDW Plt Count [place] # (Auto) Seg Neutrophils % Seg Neuts % (Manual) Lymphocytes % (Manual) Monocytes % (Manual) Nucleated RBC % Seg Neutrophils # Seg Neutrophils # Man Lymphocytes # (Manual) Monocytes # (Manual) PT INR D-Dimer ABG pH ABG pO2 ABG HCO3 ABG O2 Saturation ABG Base Excess ABG Hemoglobin Oxyhemoglobin Sodium Potassium Chloride Carbon Dioxide BUN Creatinine Glucose POC Glucose 136 H 151 H 129 H Lactic Acid Calcium Phosphorus Magnesium Ferritin ALT Lactate Dehydrogenase Total Creatine Kinase C-Reactive Protein Total Protein Albumin U Epithel Cells (Auto) Crossmatch 10/10/21 10/11/21 10/11/21 Unknown 03:30 03:30 WBC 23.2 H RBC 2.39 L Hgb 6.7 L Hct 20.3 L MCH RDW 16.7 H Plt Count 701 H [place] # (Auto) Seg Neutrophils % Seg Neuts % (Manual) Lymphocytes % (Manual) Monocytes % (Manual) Nucleated RBC % Seg Neutrophils # Seg Neutrophils # Man Lymphocytes # (Manual) Monocytes # (Manual) PT INR D-Dimer ABG pH 7.505 H ABG pO2 246.1 H ABG HCO3 ABG O2 Saturation 99.4 H ABG Base Excess ABG Hemoglobin 6.0 L Oxyhemoglobin Sodium 135 L Potassium Chloride Carbon Dioxide 20 L BUN 38 H Creatinine 1.6 H Glucose 118 H POC Glucose Lactic Acid Calcium 7.9 L Phosphorus Magnesium Ferritin ALT Lactate Dehydrogenase Total Creatine Kinase C-Reactive Protein Total Protein Albumin U Epithel Cells (Auto) Crossmatch 10/11/21 10/11/21 10/12/21 11:41 17:51 00:18 WBC RBC Hgb Hct MCH RDW Plt Count [place] # (Auto) Seg Neutrophils % Seg Neuts % (Manual) Lymphocytes % (Manual) Monocytes % (Manual) Nucleated RBC % Seg Neutrophils # Seg Neutrophils # Man Lymphocytes # (Manual) Monocytes # (Manual) PT INR D-Dimer ABG pH ABG pO2 ABG HCO3 ABG O2 Saturation ABG Base Excess ABG Hemoglobin Oxyhemoglobin Sodium Potassium Chloride Carbon Dioxide BUN Creatinine Glucose POC Glucose 128 H 138 H 174 H Lactic Acid Calcium Phosphorus Magnesium Ferritin ALT Lactate Dehydrogenase Total Creatine Kinase C-Reactive Protein Total Protein Albumin U Epithel Cells (Auto) Crossmatch 10/12/21 10/12/21 10/12/21 05:39 06:02 06:02 WBC 19.1 H RBC 3.56 L Hgb 10.0 L D Hct MCH RDW 17.0 H Plt Count 712 H [place] # (Auto) Seg Neutrophils % Seg Neuts % (Manual) Lymphocytes % (Manual) Monocytes % (Manual) Nucleated RBC % Seg Neutrophils # Seg Neutrophils # Man Lymphocytes # (Manual) Monocytes # (Manual) PT INR D-Dimer ABG pH ABG pO2 ABG HCO3 ABG O2 Saturation ABG Base Excess ABG Hemoglobin Oxyhemoglobin Sodium Potassium Chloride Carbon Dioxide BUN 37 H Creatinine 1.5 H Glucose 172 H POC Glucose 158 H Lactic Acid Calcium 8.1 L Phosphorus Magnesium Ferritin ALT Lactate Dehydrogenase Total Creatine Kinase C-Reactive Protein Total Protein Albumin U Epithel Cells (Auto) Crossmatch 10/12/21 10/12/21 10/12/21 06:02 06:05 17:43 WBC RBC Hgb Hct MCH RDW Plt Count [place] # (Auto) Seg Neutrophils % Seg Neuts % (Manual) Lymphocytes % (Manual) Monocytes % (Manual) Nucleated RBC % Seg Neutrophils # Seg Neutrophils # Man Lymphocytes # (Manual) Monocytes # (Manual) PT 17.1 H INR 1.24 H D-Dimer ABG pH ABG pO2 ABG HCO3 ABG O2 Saturation ABG Base Excess ABG Hemoglobin Oxyhemoglobin Sodium Potassium Chloride Carbon Dioxide BUN Creatinine Glucose POC Glucose 173 H Lactic Acid Calcium Phosphorus Magnesium Ferritin ALT Lactate Dehydrogenase Total Creatine Kinase C-Reactive Protein Total Protein Albumin U Epithel Cells (Auto) Crossmatch See Detail 10/12/21 10/12/21 10/13/21 23:28 Unknown 04:05 WBC RBC Hgb 10.0 L Hct MCH RDW Plt Count [place] # (Auto) Seg Neutrophils % Seg Neuts % (Manual) Lymphocytes % (Manual) Monocytes % (Manual) Nucleated RBC % Seg Neutrophils # Seg Neutrophils # Man Lymphocytes # (Manual) Monocytes # (Manual) PT INR D-Dimer ABG pH ABG pO2 ABG HCO3 ABG O2 Saturation ABG Base Excess ABG Hemoglobin Oxyhemoglobin Sodium Potassium Chloride Carbon Dioxide BUN 34 H Creatinine Glucose 200 H POC Glucose 178 H Lactic Acid Calcium 7.5 L Phosphorus Magnesium 1.60 L Ferritin ALT Lactate Dehydrogenase Total Creatine Kinase C-Reactive Protein Total Protein Albumin U Epithel Cells (Auto) Crossmatch 10/13/21 10/13/21 10/13/21 05:09 10:55 13:34 WBC 23.8 H RBC 3.14 L Hgb 9.2 L Hct 27.7 L MCH RDW 17.5 H Plt Count 572 H [place] # (Auto) Seg Neutrophils % Seg Neuts % (Manual) Lymphocytes % (Manual) Monocytes % (Manual) Nucleated RBC % Seg Neutrophils # Seg Neutrophils # Man Lymphocytes # (Manual) Monocytes # (Manual) PT INR D-Dimer ABG pH ABG pO2 ABG HCO3 ABG O2 Saturation ABG Base Excess ABG Hemoglobin Oxyhemoglobin Sodium Potassium Chloride Carbon Dioxide BUN Creatinine Glucose POC Glucose 210 H 168 H Lactic Acid Calcium Phosphorus Magnesium Ferritin ALT Lactate Dehydrogenase Total Creatine Kinase C-Reactive Protein Total Protein Albumin U Epithel Cells (Auto) Crossmatch 10/13/21 10/13/21 10/14/21 15:35 23:10 04:05 WBC 19.4 H RBC 2.98 L Hgb 8.4 L Hct 26.3 L MCH RDW 17.1 H Plt Count 561 H [place] # (Auto) Seg Neutrophils % Seg Neuts % (Manual) Lymphocytes % (Manual) Monocytes % (Manual) Nucleated RBC % Seg Neutrophils # Seg Neutrophils # Man Lymphocytes # (Manual) Monocytes # (Manual) PT INR D-Dimer ABG pH ABG pO2 ABG HCO3 ABG O2 Saturation ABG Base Excess ABG Hemoglobin Oxyhemoglobin Sodium Potassium Chloride Carbon Dioxide BUN Creatinine Glucose POC Glucose 154 H 135 H Lactic Acid Calcium Phosphorus Magnesium Ferritin ALT Lactate Dehydrogenase Total Creatine Kinase C-Reactive Protein Total Protein Albumin U Epithel Cells (Auto) Crossmatch 10/14/21 10/14/21 10/14/21 04:05 04:05 05:08 WBC RBC Hgb Hct MCH RDW Plt Count [place] # (Auto) Seg Neutrophils % Seg Neuts % (Manual) Lymphocytes % (Manual) Monocytes % (Manual) Nucleated RBC % Seg Neutrophils # Seg Neutrophils # Man Lymphocytes # (Manual) Monocytes # (Manual) PT 19.0 H INR 1.41 H D-Dimer ABG pH ABG pO2 ABG HCO3 ABG O2 Saturation ABG Base Excess ABG Hemoglobin Oxyhemoglobin Sodium Potassium Chloride Carbon Dioxide BUN 33 H Creatinine Glucose 310 H POC Glucose 178 H Lactic Acid Calcium 7.4 L Phosphorus Magnesium Ferritin ALT Lactate Dehydrogenase Total Creatine Kinase C-Reactive Protein Total Protein Albumin U Epithel Cells (Auto) Crossmatch 10/14/21 10/14/21 10/14/21 09:29 10:45 11:40 WBC RBC Hgb Hct MCH RDW Plt Count [place] # (Auto) Seg Neutrophils % Seg Neuts % (Manual) Lymphocytes % (Manual) Monocytes % (Manual) Nucleated RBC % Seg Neutrophils # Seg Neutrophils # Man Lymphocytes # (Manual) Monocytes # (Manual) PT INR D-Dimer ABG pH 7.342 L ABG pO2 96.0 H ABG HCO3 26.2 H ABG O2 Saturation ABG Base Excess ABG Hemoglobin 6.1 L Oxyhemoglobin 94.9 L Sodium Potassium Chloride Carbon Dioxide BUN Creatinine Glucose POC Glucose 155 H 137 H Lactic Acid Calcium Phosphorus Magnesium Ferritin ALT Lactate Dehydrogenase Total Creatine Kinase C-Reactive Protein Total Protein Albumin U Epithel Cells (Auto) Crossmatch 10/14/21 10/14/21 10/14/21 15:40 21:21 23:46 WBC RBC Hgb Hct MCH RDW Plt Count [place] # (Auto) Seg Neutrophils % Seg Neuts % (Manual) Lymphocytes % (Manual) Monocytes % (Manual) Nucleated RBC % Seg Neutrophils # Seg Neutrophils # Man Lymphocytes # (Manual) Monocytes # (Manual) PT INR D-Dimer ABG pH ABG pO2 ABG HCO3 ABG O2 Saturation ABG Base Excess ABG Hemoglobin Oxyhemoglobin Sodium Potassium Chloride Carbon Dioxide BUN Creatinine Glucose POC Glucose 140 H 111 H 164 H Lactic Acid Calcium Phosphorus Magnesium Ferritin ALT Lactate Dehydrogenase Total Creatine Kinase C-Reactive Protein Total Protein Albumin U Epithel Cells (Auto) Crossmatch 10/15/21 10/15/21 10/15/21 05:06 05:40 05:40 WBC 22.7 H RBC 2.94 L Hgb 8.7 L Hct 25.8 L MCH RDW 17.2 H Plt Count 620 H [place] # (Auto) Seg Neutrophils % Seg Neuts % (Manual) Lymphocytes % (Manual) Monocytes % (Manual) Nucleated RBC % Seg Neutrophils # Seg Neutrophils # Man Lymphocytes # (Manual) Monocytes # (Manual) PT INR D-Dimer ABG pH ABG pO2 ABG HCO3 ABG O2 Saturation ABG Base Excess ABG Hemoglobin Oxyhemoglobin Sodium Potassium Chloride Carbon Dioxide BUN 30 H Creatinine Glucose 175 H POC Glucose 155 H Lactic Acid Calcium 7.4 L Phosphorus Magnesium Ferritin ALT Lactate Dehydrogenase Total Creatine Kinase C-Reactive Protein Total Protein Albumin U [place]hel Cells (Auto) Crossmatch 10/15/21 10/15/21 10/15/21 11:32 17:23 23:35 WBC RBC Hgb Hct MCH RDW Plt Count [place] # (Auto) Seg Neutrophils % Seg Neuts % (Manual) Lymphocytes % (Manual) Monocytes % (Manual) Nucleated RBC % Seg Neutrophils # Seg Neutrophils # Man Lymphocytes # (Manual) Monocytes # (Manual) PT INR D-Dimer ABG pH ABG pO2 ABG HCO3 ABG O2 Saturation ABG Base Excess ABG Hemoglobin Oxyhemoglobin Sodium Potassium Chloride Carbon Dioxide BUN Creatinine Glucose POC Glucose 157 H 136 H 143 H Lactic Acid Calcium Phosphorus Magnesium Ferritin ALT Lactate Dehydrogenase Total Creatine Kinase C-Reactive Protein Total Protein Albumin U [place] Cells (Auto) Crossmatch 10/16/21 10/16/21 10/16/21 04:00 04:00 05:08 WBC 18.0 H RBC 2.80 L Hgb 8.0 L Hct 24.7 L MCH RDW 17.4 H Plt Count 543 H [place] # (Auto) Seg Neutrophils % Seg Neuts % (Manual) Lymphocytes % (Manual) Monocytes % (Manual) Nucleated RBC % Seg Neutrophils # Seg Neutrophils # Man Lymphocytes # (Manual) Monocytes # (Manual) PT INR D-Dimer ABG pH ABG pO2 ABG HCO3 ABG O2 Saturation ABG Base Excess ABG Hemoglobin Oxyhemoglobin Sodium Potassium Chloride Carbon Dioxide BUN 31 H Creatinine Glucose 153 H POC Glucose 149 H Lactic Acid Calcium 8.0 L Phosphorus Magnesium Ferritin ALT Lactate Dehydrogenase Total Creatine Kinase C-Reactive Protein Total Protein 5.5 L Albumin 1.9 L U [place] Cells (Auto) Crossmatch 10/16/21 10/16/21 10/16/21 11:45 17:37 23:48 WBC RBC Hgb Hct MCH RDW Plt Count [place] # (Auto) Seg Neutrophils % Seg Neuts % (Manual) Lymphocytes % (Manual) Monocytes % (Manual) Nucleated RBC % Seg Neutrophils # Seg Neutrophils # Man Lymphocytes # (Manual) Monocytes # (Manual) PT INR D-Dimer ABG pH ABG pO2 ABG HCO3 ABG O2 Saturation ABG Base Excess ABG Hemoglobin Oxyhemoglobin Sodium Potassium Chloride Carbon Dioxide BUN Creatinine Glucose POC Glucose 144 H 130 H 134 H Lactic Acid Calcium Phosphorus Magnesium Ferritin ALT Lactate Dehydrogenase Total Creatine Kinase C-Reactive Protein Total Protein Albumin U Epithel Cells (Auto) Crossmatch 10/17/21 10/17/21 10/17/21 04:00 04:00 05:37 WBC 14.0 H RBC 2.46 L Hgb 7.2 L Hct 21.7 L MCH RDW 17.4 H Plt Count 526 H [place] # (Auto) Seg Neutrophils % Seg Neuts % (Manual) Lymphocytes % (Manual) Monocytes % (Manual) Nucleated RBC % Seg Neutrophils # Seg Neutrophils # Man Lymphocytes # (Manual) Monocytes # (Manual) PT INR D-Dimer ABG pH ABG pO2 ABG HCO3 ABG O2 Saturation ABG Base Excess ABG Hemoglobin Oxyhemoglobin Sodium Potassium Chloride Carbon Dioxide BUN 29 H Creatinine Glucose 138 H POC Glucose 137 H Lactic Acid Calcium 7.5 L Phosphorus Magnesium Ferritin ALT Lactate Dehydrogenase Total Creatine Kinase C-Reactive Protein Total Protein Albumin U [place]hel Cells (Auto) Crossmatch 10/17/21 10/17/21 10/17/21 11:45 12:50 16:13 WBC RBC Hgb Hct MCH RDW Plt Count [place] # (Auto) Seg Neutrophils % Seg Neuts % (Manual) Lymphocytes % (Manual) Monocytes % (Manual) Nucleated RBC % Seg Neutrophils # Seg Neutrophils # Man Lymphocytes # (Manual) Monocytes # (Manual) PT INR D-Dimer ABG pH ABG pO2 ABG HCO3 ABG O2 Saturation ABG Base Excess ABG Hemoglobin Oxyhemoglobin Sodium Potassium Chloride Carbon Dioxide BUN Creatinine Glucose POC Glucose 145 H 128 H Lactic Acid Calcium Phosphorus Magnesium Ferritin ALT Lactate Dehydrogenase Total Creatine Kinase C-Reactive Protein Total Protein Albumin U [place] Cells (Auto) Crossmatch See Detail 10/17/21 10/18/21 10/18/21 23:46 04:28 04:28 WBC 16.6 H RBC 2.81 L Hgb 8.4 L Hct 24.4 L MCH RDW 16.8 H Plt Count 516 H [place] # (Auto) Seg Neutrophils % Seg Neuts % (Manual) Lymphocytes % (Manual) Monocytes % (Manual) Nucleated RBC % Seg Neutrophils # Seg Neutrophils # Man Lymphocytes # (Manual) Monocytes # (Manual) PT INR D-Dimer ABG pH ABG pO2 ABG HCO3 ABG O2 Saturation ABG Base Excess ABG Hemoglobin Oxyhemoglobin Sodium Potassium Chloride Carbon Dioxide BUN 26 H Creatinine Glucose 144 H POC Glucose 124 H Lactic Acid Calcium 7.5 L Phosphorus Magnesium Ferritin ALT 6 L Lactate Dehydrogenase Total Creatine Kinase C-Reactive Protein Total Protein 6.1 L Albumin 2.0 L U [place] Cells (Auto) Crossmatch 10/18/21 10/18/21 10/18/21 05:19 11:34 12:20 WBC RBC Hgb Hct MCH RDW Plt Count [place] # (Auto) Seg Neutrophils % Seg Neuts % (Manual) Lymphocytes % (Manual) Monocytes % (Manual) Nucleated RBC % Seg Neutrophils # Seg Neutrophils # Man Lymphocytes # (Manual) Monocytes # (Manual) PT INR D-Dimer ABG pH 7.466 H ABG pO2 90.6 H ABG HCO3 29.0 H ABG O2 Saturation ABG Base Excess 4.9 H ABG Hemoglobin 8.6 L Oxyhemoglobin Sodium Potassium Chloride Carbon Dioxide BUN Creatinine Glucose POC Glucose 128 H 151 H Lactic Acid Calcium Phosphorus Magnesium Ferritin ALT Lactate Dehydrogenase Total Creatine Kinase C-Reactive Protein Total Protein Albumin U [place] Cells (Auto) Crossmatch Chest x-ray: image reviewed Allied health notes reviewed: RT
[2021-10-18 12:58] LABS: Color,Urine Yellow (Yellow)
[2021-10-18 13:00] LABS: Bilirubin,Urine Negative (Negative)
[2021-10-18 13:02] LABS: Blood,Urine Moderate (Negative)
[2021-10-18 13:03] LABS: RBC,Urine > 182.0 /HPF (0.0-6.0)
[2021-10-18 13:04] LABS: Bacteria,Urine 2+ /HPF (Negative)
[2021-10-18 13:05] LABS: Granular Casts,Urine FEW /LPF; Hyaline Casts,Urine FEW /LPF; Mucus,Urine 3+ /HPF
--- NOTE | 2021-10-18 13:13 | Progress Note ---
Assessment and Plan Assessment and plan: This is a 31-year-old female with past medical history of obesity and nephrolithiasis initially admitted to the floor for acute diverticulititis which was complicated by sepsis and acute kidney injury. 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 On 10/08/21 patient developed acute hypoxic respiratory failure requiring intubation and ventilatory support and was transferred to ICU for further management. ICU Course to Date: 10/09: Intubated and sedated, RASS -1 to -2. Recent CXR noted with worsen bilateral opacities with persistent leukocytosis, elevated lactic, and now on 2 pressors. Patient remains afebrile, and already on IV Abx per ID. Will swab patient for COVID. Given recent surgery orders placed for CTA chest, CT Abd/plevis. And also BLE dopplers due to elevated D-Dimer. Renal function is improving, additional IVF to flush out kidney post contrast, Nephrology is also following. Continue TPN and NGT to LIS. 10/10: COVID PCR negative. CTA chest and Abd/plevis noted. No evidence of PE. Patient received X1 dose of 20mg IV lasix per Nephro for pulmonary edema, this am CXR with some improvement, renal function is also improving. Wean vent setting as tolerated per CCM. Plan for possible CT guided drainage placement in IR tomorrow. Continue TPN and NGT to LIS. 10/11: Patient with anemia, 1 unit PRBC, scheduled for CT-guided drain image of air pocket. Will place on CPAP on return. Slightly worsening renal function but nephrology is on the case. 10/12: Taken to OR today for diverting ileostomy, given 3 units PRBC yesterday and appropriate response. Surgical culture grew yeast and ID added added fluconazole. 10/13: Hypomagnesemia repleted, renal function improving. Patient remains sedated with fentanyl and propofol. Updated sister and father at bedside. Ureteral stents removed at bedside. Plan to to take patient to the OR tomorrow for second look, abdominal washout, colostomy creation on hold for abdominal closure by surgery. We will hold p.m. dose of heparin. 10/14: Plan to take patient back to OR today, prophylactic anticougulation on hold. 2 units prbc on hold for surgery. Plan to close abd and colostomy creation. Vent weaning on hold till abd closure 10/15: Renal function remains stable, leukocytosis increased, remains sedated on propofol and fentanyl and on mechanical ventilation. Plan is to hold SBT until the weekend. Repeat renal ultrasound pending per urology. 10/16: no acute events overnight. remains on fent and propofol. plan to sbt on monday. 10/17: noted drop in hgb from 8 to 7.2 and will given one unit prbc. remains on fent/propofol. CARMEN overnight. Will retract OETT per rad reading. 10/18: Febrile this am with worsen leukocytosis. Continue IV Abx per ID, orders placed for cultures. Patient tolerating PST, d/w [facility] plan for possible extubation today. Adominal insicion and colostomy noted, no signs of any complications noted. Continue TPN and NGT to LIS per General surgery. Assessment and Plan #Acute Hypoxic Respiratory Failure #Bilateral Pneumonia Vs Pulmonary Edema -Code met and intubated on 10/08 -Vent setting:CPAP-30%,6 PS-10 -AM ABG noted -COVID PCR negative -10/09 CTA chest with no evidence of PE. 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 post appendectomy #VRE infection #Open left hemicolectomy and partial omentectomy #Peritonitis #Diverticulitis with abscess #Possible Bilateral Pneumonia #Septic Shock-resolved -CT abd/pelvis showed diverticulitis with abscess -General surgery following, assistance appreciated -s/p diagnositic laparatomy and drain placement 09/26/2021 -Returned to the OR on 09/30/2021 for left hemicolectomy, appendectomy, and partial omentectomy -10/09 CT abdomen/pelvis showed a new collection of air within the left midabdomen -10/11 CT guided drain placement in IR- Colonic Anastamosis noted -10/12 status post colorectal anastomosis takedown, with abdominal washout and ABThera wound VAC placement -10/13 status post colostomy creation with closure of abdomen -Wound culture +VRE -10/08 Repeat Blood culture negative -Febrile this am with worsen leukocytosis -will panculture -Continue IV Abx per ID recommendations -Continue TPN/PPN per general surgery -NGT to LIS -Trend CBC #Acute Kidney Injury 2/2 Vasomotor Nephropathy vs contrast induced-improved -Nephrology consulted, assistance appreciated -Renal function continue to improved -Strict intake and output -Avoid nephrotoxic medications; Renally dose medications -Monitor and replace electrolytes as needed #Acute blood loss anemia-Resolved #Gross Hematuria-resolved -09/08 to surgical procedures-- c/f ureteral injury -s/p 7 units of pRBCs since admission -Hematuria resolved, H&H stable -Urology consulted, appreciated recommendation -10/12 Intra-Op cystoscopy completed and bilateral ureteral stents placed- removed on 10/13 By Urology -Repeat renal US noted -Continue to monitor for s/s of any active bleeding, trend CBC -transfuse if hemoglobin less than 7 or patient becomes symptomatic #Moderate protein caloric malnutrition -Albumin 1.6 -Continue TPN/PPN per general surgery -Consulting nutrition; appreciate recs #Elevated D-Dimer -BLE doppler with no evidence of any DVT -Continue AC- Heparin subQ #Hyperglycemia -most likely due to TPN/PPN -Continue SSI Q6hrs -Avoid hypoglycemia #GI/DVT Prophylaxis -Continue PPI- Pepcid -Continue AC- Heparin subQ -SCDs to bilateral lower extremities while in bed The high probability of a clinically significant, sudden or life threatening deterioration of the [multiple] system(s) required my full and direct attention, intervention and personal management. The aggregate critical care time was [60] minutes. This time is in addition to time spent performing reported procedures but includes the following: [x] Data Review and interpretation [x] Patient assessment and monitoring of vital signs [x] Documentation [x] Medication orders and management Disposition Plan: ICU Total Time Spent with Patient (Minutes): 60 History Interval history: Patient was seen and examined at the bedside. Remains on the vent, AAO, following commands. Remains on TPN, NGT to LIS. Tolerating PST this am. CARMEN overnight Hospitalist Physical - Constitutional Vitals: Temp Pulse Resp BP Pulse Ox 100.2 F H 116 H 12 160/86 100 03/14/22 12:59 10/18/21 11:30 10/18/21 11:30 10/18/21 11:30 10/18/21 11:30 General appearance: Present: no acute distress, obese - EENT Eyes: Present: PERRL ENT: hearing intact - Neck Neck: Present: normal ROM - Respiratory Respiratory effort: normal Respiratory: bilateral: rhonchi - Cardiovascular Rhythm: regular Heart Sounds: Present: S1 & S2 - Extremities Extremities: no ischemia, pulses intact, pulses symmetrical Extremity abnormal: edema - Peripheral Assessment Generalized Edema Type: Non-pitting Edema Degree: 2+ Capillary Refill: < 3 seconds Skin Temperature: Warm Peripheral Pulses: within normal limits - Abdominal General gastrointestinal: soft, tender, hypoactive bowel sounds, other (LUQ Colostomy noted) - Integumentary Integumentary: Present: warm, dry - Psychiatric Psychiatric: appropriate mood/affect, cooperative - Neurologic Neurologic: moves all extremities - Allied Health Allied health notes reviewed: nursing, case management Results - Labs CBC & Chem 7: 10/18/21 04:28 10/18/21 04:28 Labs: Laboratory Last Values WBC 16.6 K/mm3 (4.5-11.0) H 10/18/21 04:28 RBC 2.81 M/mm3 (3.65-5.03) L 10/18/21 04:28 Hgb 8.4 gm/dl (10.1-14.3) L 10/18/21 04:28 Hct 24.4 % (30.3-42.9) L 10/18/21 04:28 MCV 87 fl (79-97) 10/18/21 04:28 MCH 30 pg (28-32) 10/18/21 04:28 MCHC 34 % (30-34) 10/18/21 04:28 RDW 16.8 % (13.2-15.2) H 10/18/21 04:28 Plt Count 516 K/mm3 (140-440) H 10/18/21 04:28 [place] % (Auto) 5.9 % (0.0-7.3) 09/28/21 04:55 Eos % (Auto) 0.4 % (0.0-4.3) 09/28/21 04:55 [place] # (Auto) 0.9 K/mm3 (0.0-0.8) H 09/28/21 04:55 Eos # (Auto) 0.1 K/mm3 (0.0-0.4) 09/28/21 04:55 Baso # (Auto) 0.0 K/mm3 (0.0-0.1) 09/28/21 04:55 Add Manual Diff Complete 10/09/21 05:31 Total Counted 100 10/09/21 05:31 Seg Neutrophils % Popcorn Attendant 10/03/21 04:55 Seg Neuts % (Manual) 88.0 % (40.0-70.0) H 10/09/21 05:31 Band Neutrophils % 0 % 10/09/21 05:31 Lymphocytes % (Manual) 3.0 % (13.4-35.0) L 10/09/21 05:31 Reactive Lymphs % (Man) 1.0 % 10/09/21 05:31 Monocytes % (Manual) 6.0 % (0.0-7.3) 10/09/21 05:31 Eosinophils % (Manual) 2.0 % (0.0-4.3) 10/09/21 05:31 Basophils % (Manual) 0 % (0.0-1.8) 10/09/21 05:31 Metamyelocytes % 0 % 10/09/21 05:31 Myelocytes % 0 % 10/09/21 05:31 Promyelocytes % 0 % 10/09/21 05:31 Blast Cells % 0 % 10/09/21 05:31 Nucleated RBC % Not Reportable 10/09/21 05:31 Seg Neutrophils # 14.0 K/mm3 (1.8-7.7) H 09/28/21 04:55 Seg Neutrophils # Man 17.9 K/mm3 (1.8-7.7) H 10/09/21 05:31 Band Neutrophils # 0.0 K/mm3 10/09/21 05:31 Lymphocytes # (Manual) 0.6 K/mm3 (1.2-5.4) L 10/09/21 05:31 Abs React Lymphs (Man) 0.2 K/mm3 10/09/21 05:31 Monocytes # (Manual) 1.2 K/mm3 (0.0-0.8) H 10/09/21 05:31 Eosinophils # (Manual) 0.4 K/mm3 (0.0-0.4) 10/09/21 05:31 Basophils # (Manual) 0.0 K/mm3 (0.0-0.1) 10/09/21 05:31 Metamyelocytes # 0.0 K/mm3 10/09/21 05:31 Myelocytes # 0.0 K/mm3 10/09/21 05:31 Promyelocytes # 0.0 K/mm3 10/09/21 05:31 Blast Cells # 0.0 K/mm3 10/09/21 05:31 Pathologist Review 09/24/21 14:58 WBC Morphology Not Reportable 10/09/21 05:31 Hypersegmented Neuts Not Reportable 10/09/21 05:31 Hyposegmented Neuts Not Reportable 10/09/21 05:31 Hypogranular Neuts Not Reportable 10/09/21 05:31 Smudge Cells Not Reportable 10/09/21 05:31 Toxic Granulation Not Reportable 10/09/21 05:31 Toxic Vacuolation Not Reportable 10/09/21 05:31 Dohle Bodies Not Reportable 10/09/21 05:31 Pelger-Huet Anomaly Not Reportable 10/09/21 05:31 Marlene Rods Not Reportable 10/09/21 05:31 Platelet Estimate Consistent w auto 10/09/21 05:31 Clumped Platelets Not Reportable 10/09/21 05:31 Plt Clumps, EDTA Not Reportable 10/09/21 05:31 Large Platelets Not Reportable 10/09/21 05:31 Giant Platelets Not Reportable 10/09/21 05:31 Platelet Satelliting Not Reportable 10/09/21 05:31 Plt Morphology Comment Not Reportable 10/09/21 05:31 RBC Morphology Not Reportable 10/09/21 05:31 Dimorphic RBCs Not Reportable 10/09/21 05:31 Polychromasia Not Reportable 10/09/21 05:31 Hypochromasia Not Reportable 10/09/21 05:31 Poikilocytosis Not Reportable 10/09/21 05:31 Anisocytosis 1+ 10/09/21 05:31 Microcytosis Not Reportable 10/09/21 05:31 Macrocytosis Not Reportable 10/09/21 05:31 Spherocytes Not Reportable 10/09/21 05:31 Pappenheimer Bodies Not Reportable 10/09/21 05:31 Sickle Cells Not Reportable 10/09/21 05:31 Target Cells Not Reportable 10/09/21 05:31 Tear Drop Cells Not Reportable 10/09/21 05:31 Ovalocytes Not Reportable 10/09/21 05:31 Helmet Cells Not Reportable 10/09/21 05:31 [place] Bodies Not Reportable 10/09/21 05:31 [place] Rings Not Reportable 10/09/21 05:31 Anusha Cells Not Reportable 10/09/21 05:31 Bite Cells Not Reportable 10/09/21 05:31 Crenated Cell Not Reportable 10/09/21 05:31 Elliptocytes Not Reportable 10/09/21 05:31 Acanthocytes (Spur) Not Reportable 10/09/21 05:31 Rouleaux Not Reportable 10/09/21 05:31 Hemoglobin C Crystals Not Reportable 10/09/21 05:31 Schistocytes Not Reportable 10/09/21 05:31 Malaria parasites Not Reportable 10/09/21 05:31 Flaco Bodies Not Reportable 10/09/21 05:31 Hem Pathologist Commnt No 10/09/21 05:31 PT 19.0 Sec. (12.2-14.9) H 10/14/21 04:05 INR 1.41 (0.87-1.13) H 10/14/21 04:05 APTT 33.9 Sec. (24.2-36.6) 10/14/21 04:05 D-Dimer > 73234 ng/mlDDU (0-234) H 10/09/21 08:45 ABG pH 7.466 pH Units (7.350-7.450) H 10/18/21 11:34 ABG pCO2 41.1 mm Hg 10/18/21 11:34 ABG pO2 90.6 mm Hg (80.0-90.0) H 10/18/21 11:34 ABG HCO3 29.0 mmol/L (20.0-26.0) H 10/18/21 11:34 ABG O2 Saturation 97.3 % (95.0-99.0) 10/18/21 11:34 ABG O2 Content 11.6 (0.0-44) 10/18/21 11:34 ABG Base Excess 4.9 mmol/L (-2.0-3.0) H 10/18/21 11:34 ABG Hemoglobin 8.6 gm/dl (12.0-16.0) L 10/18/21 11:34 ABG Carboxyhemoglobin 1.4 % (0.0-5.0) 10/18/21 11:34 ABG Methemoglobin 0.6 % (0.0-1.5) 10/18/21 11:34 Oxyhemoglobin 95.4 % (95.0-99.0) 10/18/21 11:34 FiO2 30 % 10/18/21 11:34 Sodium 139 mmol/L (137-145) 10/18/21 04:28 Potassium 4.1 mmol/L (3.6-5.0) 10/18/21 04:28 Chloride 102.0 mmol/L (98-107) 10/18/21 04:28 Carbon Dioxide 30 mmol/L (22-30) 10/18/21 04:28 Anion Gap 11 mmol/L 10/18/21 04:28 BUN 26 mg/dL (7-17) H 10/18/21 04:28 Creatinine 0.7 mg/dL (0.6-1.2) 10/18/21 04:28 Estimated GFR > 60 ml/min 10/18/21 04:28 BUN/Creatinine Ratio 37 % 10/18/21 04:28 Glucose 144 mg/dL (65-100) H 10/18/21 04:28 POC Glucose 151 mg/dL (70-105) H 10/18/21 12:20 Lactic Acid 1.80 mmol/L (0.7-2.0) 10/10/21 04:10 Calcium 7.5 mg/dL (8.4-10.2) L 10/18/21 04:28 Phosphorus 2.50 mg/dL (2.5-4.5) 10/18/21 04:28 Magnesium 1.80 mg/dL (1.7-2.3) 10/18/21 04:28 Ferritin 751.9 ng/mL (10.0-200.0) H 10/09/21 05:31 Total Bilirubin 0.20 mg/dL (0.1-1.2) 10/18/21 04:28 AST 19 units/L (5-40) 10/18/21 04:28 ALT 6 units/L (7-56) L 10/18/21 04:28 Alkaline Phosphatase 53 units/L (35-129) 10/18/21 04:28 Lactate Dehydrogenase 472 units/L (91-180) H 10/09/21 05:31 Total Creatine Kinase 45 units/L (30-135) 10/13/21 04:05 C-Reactive Protein 15.90 mg/dL (0.00-1.30) H 10/09/21 05:31 Total Protein 6.1 g/dL (6.3-8.2) L 10/18/21 04:28 Albumin 2.0 g/dL (3.9-5) L 10/18/21 04:28 Albumin/Globulin Ratio 0.5 % 10/18/21 04:28 Triglycerides 80 mg/dL (2-149) 10/14/21 04:05 Procalcitonin 12.98 ng/mL (<0.15) 10/09/21 05:31 Urine Color Yellow (Yellow) 10/18/21 11:40 Urine Turbidity Clear (Clear) 10/18/21 11:40 Urine pH 6.0 (5.0-7.0) 10/18/21 11:40 Ur Specific [place] 1.015 (1.003-1.030) 10/18/21 11:40 Urine Protein 30 mg/dl mg/dL (Negative) 10/18/21 11:40 Urine Glucose (UA) Trace mg/dL (Negative) 10/18/21 11:40 Urine Ketones Negative mg/dL (Negative) 10/18/21 11:40 Urine Blood Moderate (Negative) A 10/18/21 11:40 Urine Nitrite Negative (Negative) 10/18/21 11:40 Ur Reducing Substances Not Reportable 09/24/21 14:49 Urine Bilirubin Negative (Negative) 10/18/21 11:40 Urine Ictotest Not Reportable 09/24/21 14:49 Urine Urobilinogen 0.0 mg/dL (<2.0) 10/18/21 11:40 Ur Leukocyte Esterase Negative (Negative) 10/18/21 11:40 Urine WBC (Auto) 50.0 /HPF (0.0-6.0) H 10/18/21 11:40 Urine RBC (Auto) > 182.0 /HPF (0.0-6.0) 10/18/21 11:40 U Epithel Cells (Auto) 2.0 /HPF (0-13.0) 10/18/21 11:40 Urine Bacteria (Auto) 2+ /HPF (Negative) 10/18/21 11:40 Urine WBC Clumps 1+ /HPF 10/18/21 11:40 Hyaline Casts Few /LPF 10/18/21 11:40 Granular Casts Few /LPF 10/18/21 11:40 Urine Mucus 3+ /HPF 10/18/21 11:40 Urine HCG, Qual Negative (Negative) 09/24/21 14:49 Coronavirus (PCR) Negative (Negative) 10/09/21 10:15 Blood Type A POSITIVE 10/17/21 12:50 Antibody Screen Negative 10/17/21 12:50 Crossmatch See Detail 10/17/21 12:50 Microbiology: Microbiology 10/18/21 08:17 Peripheral/Venous Blood Culture - Preliminary Culture in Progress 10/18/21 08:17 Peripheral/Venous Blood Culture - Preliminary Culture in Progress 10/11/21 14:52 Abdomen Surgical Culture - Final Jo Ann Albicans Staphylococcus Aureus Stenotrophomonas Maltophilia Doss/IV: Voiding Method Indwelling Catheter Active Medications - Current Medications Current Medications: Generic Name Dose Route Start Last Admin Trade Name Freq PRN Reason Stop Dose Admin Acetaminophen 650 mg 10/08/21 21:38 Acetaminophen 325 Mg Tab PO Q6H PRN Pain, Mild (1-3) Albuterol 2.5 mg 09/24/21 18:07 Albuterol 2.5 Mg/3 Ml Nebu IH Q4HRT PRN Shortness Of Breath Dextrose 0 ml 10/03/21 12:37 Dextrose 10% *Hypoglycemia IV PRN PRN Hypoglycemia Diphenhydramine HCl 25 mg 10/04/21 15:14 10/07/21 00:34 Diphenhydramine 50 Mg/Ml Vial IV 25 mg Q6H PRN Administration Itching Famotidine 20 mg 10/08/21 22:00 10/18/21 09:37 Famotidine 20 Mg/2 Ml Inj IV 20 mg BID JAZ Administration Fentanyl 50 mcg 10/08/21 22:10 10/18/21 03:25 Fentanyl 100 Mcg/2 Ml Inj IV 50 mcg Q10MIN PRN Administration ANALGESIA Heparin Sodium (Porcine) 5,000 unit 10/16/21 10:00 10/18/21 09:37 Heparin 5,000 Unit/1 Ml Vial SUB-Q 5,000 unit Q12HR JAZ Administration Hydromorphone HCl 0.25 mg 10/08/21 21:38 Hydromorphone 1 Mg/1 Ml Inj IV Q4H PRN Pain, Moderate (4-6) Hydrophilic Ointment 1 applic 10/08/21 21:00 Lip Therapy Vaseline TP Q2HR PRN Dry Lips Propofol 1,000 mg in 100 mls @ 2.694 mls/hr 10/08/21 21:00 10/18/21 12:13 Diprivan 10 Mg/Ml IV 0 mcg/kg/min TITR JAZ 0 mls/hr Titration Protocol 5 MCG/KG/MIN Fentanyl Citrate 2,000 mcg in 100 mls @ 5.36 mls/hr 10/08/21 23:00 10/18/21 12:05 Fentanyl Drip Premix IV Infused TITR JAZ Titration Protocol 1 MCG/KG/HR Vasopressin 20 unit/ Sodium 101 mls @ 9.09 mls/hr 10/08/21 23:00 10/09/21 14:30 Chloride IV 0 units/min TITR JAZ 0 mls/hr Titration Protocol 0.03 UNITS/MIN NORepinephrine/NS 8 MG-250 ML 8 mg in 250 mls @ 3.75 mls/hr 10/08/21 23:45 Norepinephrine/Ns 8 Mg-250 Ml (Double Conc) IV TITRATE JAZ Protocol 2 MCG/MIN Fluconazole 200 mls @ 100 mls/hr 10/13/21 10:00 10/18/21 09:30 Diflucan IV 100 mls/hr Q24HR JAZ Administration Protocol Amino Acids/Electrolytes/Dextrose 1,999.92 mls @ 83.33 mls/hr 10/17/21 20:00 10/17/21 20:52 Tpn Adult IV 10/18/21 19:59 83.33 mls/hr DAILY@2000 JAZ Administration Protocol Meropenem/Sodium Chloride 1 gram in 100 mls @ 100 mls/hr 10/18/21 11:00 10/18/21 12:23 Merrem/Ns 1 Gram/100 Ml IV 100 mls/hr Q6H JAZ Administration Protocol Trimethoprim/Sulfamethoxazole 525 mls @ 167 mls/hr 10/18/21 12:00 10/18/21 12:14 400 mg/ Dextrose IV 167 mls/hr Q6HR [facility] Administration Protocol Amino Acids/Electrolytes/Dextrose 1,999.92 mls @ 83.33 mls/hr 10/18/21 20:00 Tpn Adult IV 10/19/21 19:59 DAILY@1999 [facility] Protocol Insulin Glargine 5 units 10/13/21 10:00 10/18/21 09:43 Insulin Glargine 100 Units/Ml SUB-Q 5 units QDAY [facility] Administration Insulin Human Regular 0 units 10/10/21 00:00 10/18/21 12:24 Insulin Regular, Human 100 Units/1 Ml SUB-Q 3 units Q6HR [facility] Administration Protocol Labetalol HCl 10 mg 10/01/21 08:31 10/14/21 22:32 Labetalol 20 Mg/4 Ml Inj IV 10 mg Q6H PRN Administration Hypertension Multi-Ingred Cream/Lotion/Oil/Oint 1 applic 10/08/21 21:00 Mineral Oil/Petrolatum, White Ophth Oint 3.5 Gm OU Q4HR PRN Dry Eye(s) Naloxone HCl 0.1 mg 10/03/21 14:00 Naloxone 0.4 Mg/1 Ml Inj IV Q2MIN PRN Res Rate </= 8 or 02 SAT < 92% Ondansetron HCl 4 mg 09/24/21 18:07 10/18/21 11:31 Ondansetron 4 Mg/2 Ml Inj IV 4 mg Q8H PRN Administration Nausea And Vomiting Phenol 1 spray 10/02/21 13:00 10/03/21 10:23 Phenol 1.4% 177 Ml Bottle MM 1 spray PRN PRN Administration Sore Throat Scopolamine 1 each 10/04/21 10:00 10/16/21 10:14 Scopolamine Transdermal Patch 72 Hr TD 1 each Q3D JAZ Administration Sodium Chloride 10 ml 09/24/21 22:00 10/18/21 09:39 Sodium Chloride 0.9% 10 Ml Flush Syringe IV 10 ml BID JAZ Administration Sodium Chloride 10 ml 09/24/21 18:07 09/25/21 08:34 Sodium Chloride 0.9% 10 Ml Flush Syringe IV 10 ml PRN PRN Administration LINE FLUSH Nutrition/Malnutrition Assess - Dietary Evaluation Nutrition/Malnutrition Findings: Nutrition Notes Start: 09/25/21 15:31 Freq: Status: Active Protocol: Document 10/18/21 09:56 BIN (Rec: 10/18/21 10:26 BIN [id number]) Nutrition Notes Initial or Follow up Reassessment Current Diagnosis Sepsis,Respiratory Failure Other Pertinent Diagnosis s/p appendectomy, s/p exp lap with colostomy, anemia Current Diet CPN at 83.33 ml/hr Labs/Tests 10/18: BUN 26, Glu 144, Ca 7.5 . Pertinent Medications 10/18: Insulin, Propofol not given, others nutritionally unremarkable. Height 5 ft 7 in Weight 110 kg [place] Body Weight (kg) 61.36 BMI 38.0 Weight change and time frame New Body Weight reported (110 Kg) 2.8 Kg body weight increase since 10/14 data. Weight Status Obese Subjective/Other Information Day 16 CPN. Pt still on Mechanical Ventilation. Procedure 10/14: Colostomy creation with closure of abdomen. Well tolerated, according to Progress notes. Propofol not given at this time. From surgery standpoint, "it's OK to start weaning Mechanical Ventilation in the mornings," according to Progress notes. Percent of energy/protein needs met: 76% Kcal; 98% AA. Burn Absent Trauma Absent GI Symptoms Other Food Allergy No Skin Integrity/Comment Surgical wound Current % PO Other Minimum of two criteria No #1 Nutrition Diagnosis Altered GI function Diagnosis Progress(for reassessment Continues documentation) Is patient on ventilator? Yes Is Patient Ambulatory and/or Out of Bed No REE-([facility]-confined to bed) 2212.908 Kcal/Kg value to use for calculation 16 Approximate Energy Requirements Using 1760 kcal/Kg Calculation Used for Recommendations Kcal/kg Additional Notes Protein: 2 g/Kg; 123 g/day IBW . Fluids: 1 mL/Kcal, or as per MD. Nutrition Intervention Nutrition Support: Continue CPN at 83.33 ml/hr: MVI, 6.0% amino acids, 12.5% Dextrose. Osmolality: 1420. Kcal 1,330 Protein (gm) 120 Carbohydrates (gm) 250 Fat (gm) 0 Fluid (mL) 2,000 Fiber (gm) 0 % RDI: 76% Kcal; 98% AA. Goal #1 Provide at least 75% of energy /protein needs through Parenteral Feeding during LOS. Goal #2 Maintain body weight within +/ -3% of admission body weight during LOS. Follow-Up By: 10/19/21 Additional Comments Continue monitoring CPN tolerance and BM. BMP, Phos, Mg labs ordered.
[2021-10-18] MEDS: NYSTATIN POWDER 15 GM TP SCH ×2 (14:09→21:41)
--- NOTE | 2021-10-18 17:27 | Progress Note ---
Assessment and Plan Postop day #4 status post colostomy creation with closure of abdomen. Patient is febrile but stable. slight increase in wbc. multiple etiologies possible. UA is positive. Will continue antibiotics and supportive care. Await return of bowel function. Creatinine has normalized she is making good urine output. Postop day #7 status post colorectal anastomosis takedown, with abdominal washout and ABThera wound VAC. Postop day #15 status post laparoscopic converted to open left hemicolectomy with appendectomy for perforated appendicitis with fistulization to sigmoid colon. Subjective Date of service: 10/18/21 Narrative: Pt was extubated today. Says she is not having much pain but feels itchy. She says she feels better than after the last surgery she remembers. Denies any nausea or vomiting. Objective Vital Signs - 12hr 10/18/21 10/18/21 10/18/21 05:30 05:45 06:00 Temperature 100.3 F H Pulse Rate 107 H 103 H Pulse Rate [ From Monitor] Respiratory 14 12 Rate Blood Pressure 157/98 151/90 O2 Sat by Pulse 99 100 Oximetry 10/18/21 10/18/21 10/18/21 06:30 07:00 07:24 Temperature 100.0 F H Pulse Rate 103 H 106 H Pulse Rate [ From Monitor] Respiratory 11 L 12 Rate Blood Pressure 149/91 162/96 O2 Sat by Pulse 100 100 Oximetry 10/18/21 10/18/21 10/18/21 07:30 08:00 08:30 Temperature 100 F H Pulse Rate 99 H 111 H 106 H Pulse Rate [ 74 From Monitor] Respiratory 10 L 14 8 L Rate Blood Pressure 159/94 152/93 168/96 O2 Sat by Pulse 100 99 100 Oximetry 10/18/21 10/18/21 10/18/21 09:00 09:30 10:00 Temperature Pulse Rate 105 H 101 H 105 H Pulse Rate [ From Monitor] Respiratory 11 L 11 L 9 L Rate Blood Pressure 167/98 170/94 170/98 O2 Sat by Pulse 100 100 100 Oximetry 10/18/21 10/18/21 10/18/21 10:30 11:00 11:30 Temperature Pulse Rate 104 H 102 H 109 H Pulse Rate [ From Monitor] Respiratory 9 L 14 10 L Rate Blood Pressure 171/96 162/89 160/86 O2 Sat by Pulse 100 100 99 Oximetry 10/18/21 10/18/21 10/18/21 12:00 12:30 12:59 Temperature 100.2 F H Pulse Rate 103 H 100 H Pulse Rate [ 74 From Monitor] Respiratory 10 L 9 L Rate Blood Pressure 159/87 142/84 O2 Sat by Pulse 100 100 Oximetry 10/18/21 10/18/21 10/18/21 13:00 13:30 14:00 Temperature Pulse Rate 113 H 112 H 99 H Pulse Rate [ From Monitor] Respiratory 17 20 17 Rate Blood Pressure 166/98 175/100 157/92 O2 Sat by Pulse 98 97 99 Oximetry 10/18/21 10/18/21 10/18/21 14:30 15:00 15:30 Temperature Pulse Rate 96 H 104 H 94 H Pulse Rate [ From Monitor] Respiratory 20 16 16 Rate Blood Pressure 160/89 169/104 170/98 O2 Sat by Pulse 98 100 99 Oximetry 10/18/21 10/18/21 10/18/21 16:00 16:30 16:37 Temperature 98.0 F Pulse Rate Pulse Rate [ 74 From Monitor] Respiratory 14 Rate Blood Pressure 160/96 152/82 O2 Sat by Pulse 99 99 Oximetry 10/18/21 17:00 Temperature Pulse Rate 85 Pulse Rate [ From Monitor] Respiratory 12 Rate Blood Pressure 170/94 O2 Sat by Pulse 98 Oximetry - General physical appearance well developed, no distress, moderate pain - Respiratory normal expansion, normal respiratory effort - Abdomen soft, not guarding, not rigid, other (appropriately tender to palpation, YURIDIA drain serous, left sided drain murky sanguinous, ostomy pink with no air in bag but small amount serous fluid) - Neurologic other (peripheral edema improving) - Labs 10/18/21 04:28 10/18/21 04:28 Diabetes panel 10/18/21 Range/Units 04:28 Sodium 139 (137-145) mmol/L Potassium 4.1 (3.6-5.0) mmol/L Chloride 102.0 (98-107) mmol/L Carbon Dioxide 30 (22-30) mmol/L BUN 26 H (7-17) mg/dL Creatinine 0.7 (0.6-1.2) mg/dL Glucose 144 H (65-100) mg/dL Calcium 7.5 L (8.4-10.2) mg/dL AST 19 (5-40) units/L ALT 6 L (7-56) units/L Alkaline Phosphatase 53 (35-129) units/L Total Protein 6.1 L (6.3-8.2) g/dL Albumin 2.0 L (3.9-5) g/dL Calcium panel 10/18/21 Range/Units 04:28 Calcium 7.5 L (8.4-10.2) mg/dL Phosphorus 2.50 (2.5-4.5) mg/dL Albumin 2.0 L (3.9-5) g/dL Pituitary panel 10/18/21 Range/Units 04:28 Sodium 139 (137-145) mmol/L Potassium 4.1 (3.6-5.0) mmol/L Chloride 102.0 (98-107) mmol/L Carbon Dioxide 30 (22-30) mmol/L BUN 26 H (7-17) mg/dL Creatinine 0.7 (0.6-1.2) mg/dL Glucose 144 H (65-100) mg/dL Calcium 7.5 L (8.4-10.2) mg/dL Adrenal panel 10/18/21 Range/Units 04:28 Sodium 139 (137-145) mmol/L Potassium 4.1 (3.6-5.0) mmol/L Chloride 102.0 (98-107) mmol/L Carbon Dioxide 30 (22-30) mmol/L BUN 26 H (7-17) mg/dL Creatinine 0.7 (0.6-1.2) mg/dL Glucose 144 H (65-100) mg/dL Calcium 7.5 L (8.4-10.2) mg/dL Total Bilirubin 0.20 (0.1-1.2) mg/dL AST 19 (5-40) units/L ALT 6 L (7-56) units/L Alkaline Phosphatase 53 (35-129) units/L Total Protein 6.1 L (6.3-8.2) g/dL Albumin 2.0 L (3.9-5) g/dL
[2021-10-18] MEDS ORDERED: TOTAL PARENTERAL NUTRITION 1,999.92 ML IV SCH (20:00)
[2021-10-18] MEDS: diphenhydrAMINE 50 MG/ML VIAL IV PRN (21:41)
[2021-10-19] MEDS: SMX IV SCH ×5 (01:20→23:00)
[2021-10-19] MEDS: TMP IV SCH ×5 (01:20→23:00)
[2021-10-19] MEDS: WATER IV SCH ×5 (01:20→23:00)
[2021-10-19] MEDS: DEXTROSE 5% IV SCH ×5 (01:20→23:00)
[2021-10-19] MEDS: HYDROmorphone 1 MG/1 ML INJ IV PRN ×4 (01:28→19:43)
[2021-10-19] MEDS: INSULIN REGULAR, HUMAN 100 UNITS/1 ML SUB-Q SCH ×4 (01:29→18:07)
[2021-10-19 04:37] LABS: Hematocrit 26.3 % (30.3-42.9); Hemoglobin 8.7 gm/dl (10.1-14.3); Mean Corpuscular HGB Conc 33 % (30-34); Mean Corpuscular Volume 87 fl (79-97); Platelet Count 500 K/mm3 (140-440); Red Blood Count 3.04 M/mm3 (3.65-5.03); Red Cell Distribution Width 16.9 % (13.2-15.2)
[2021-10-19] MEDS: MEROPENEM/NS 1 GRAM/100 ML 1 GRAM/100 ML BAG IV SCH ×4 (04:45→22:00)
[2021-10-19 04:47] LABS: BUN/Creatinine Ratio 25; Blood Urea Nitrogen 20 mg/dL (7-17); Calcium 7.8 mg/dL (8.4-10.2); Hemolysis Index 3
[2021-10-19] MEDS ORDERED: MAGNESIUM SULFATE 1 GM in SODIUM CHLORIDE 0.9% 50 ML IV ONE (05:51)
[2021-10-19] MEDS ORDERED: SODIUM PHOSPHATE 15 MMOL in SODIUM CHLORIDE 0.9% 250ML 250 ML IV ONE (05:52)
[2021-10-19] MEDS ORDERED: SODIUM CHLORIDE 0.9% 500 ML 500 ML ONE (06:15)
[2021-10-19] MEDS ORDERED: MAGNESIUM SULFATE 3 GM in SODIUM CHLORIDE 0.9% 100 ML IV SCH (08:00)
[2021-10-19] MEDS: INSULIN GLARGINE 100 UNITS/ML SUB-Q SCH (09:23)
[2021-10-19] MEDS: FLUCONAZOLE 400 MG 200 ML IV SCH (09:23)
[2021-10-19] MEDS: ONDANSETRON 4 MG/2 ML INJ IV PRN (09:29)
[2021-10-19] MEDS: FAMOTIDINE 20 MG/2 ML INJ IV SCH ×2 (09:30→22:00)
[2021-10-19] MEDS: HEPARIN 5,000 UNIT/1 ML VIAL SUB-Q SCH ×2 (09:30→22:01)
[2021-10-19] MEDS: NYSTATIN POWDER 15 GM TP SCH ×2 (09:30→22:01)
[2021-10-19] MEDS: SCOPOLAMINE TRANSDERMAL PATCH 72 HR TD SCH (09:31)
--- NOTE | 2021-10-19 09:32 | Progress Note ---
Assessment and Plan Postop day #5 status post colostomy creation with closure of abdomen. Patient is febrile but stable. slight increase in wbc. multiple etiologies possible. Will follow up on gillis culture. Awaiting return of bowel function. Creatinine has normalized she is making good urine output. continue supportive care and abx per ID. ICU team says they will confer with urology prior to removing the brantley. Postop day #8 status post colorectal anastomosis takedown, with abdominal washout and ABThera wound VAC. Postop day #16 status post laparoscopic converted to open left hemicolectomy with appendectomy for perforated appendicitis with fistulization to sigmoid colon. Subjective Date of service: 10/19/21 Narrative: No acute events overnight. Pt says she had a long night and it was difficult for her to sleep. No new complaints. Pain is controlled. She feels like she wants to pass gas, but still no air in colostomy bag yet. The nurse said she had one small episode of bilious vomiting yesterday, but when they check her NGT it is patent, and there are no residuals with minimal output in canister. Objective Vital Signs - 12hr 10/18/10/18/21 10/18/21 21:30 22:00 22:30 Temperature Pulse Rate 96 H 92 H 99 H Pulse Rate [ From Monitor] Respiratory 23 30 H 32 H Rate Blood Pressure 162/93 147/82 156/80 O2 Sat by Pulse 98 97 96 Oximetry 10/18/21 10/18/21 10/18/21 23:00 23:24 23:30 Temperature Pulse Rate 95 H 96 H 99 H Pulse Rate [ From Monitor] Respiratory 32 H 27 H 26 H Rate Blood Pressure 144/74 144/74 157/84 O2 Sat by Pulse 96 97 97 Oximetry 10/19/21 10/19/21 10/19/21 00:00 00:30 01:00 Temperature 99.8 F H Pulse Rate 100 H 97 H 97 H Pulse Rate [ 99 H From Monitor] Respiratory 32 H 28 H 37 H Rate Blood Pressure 139/76 139/70 140/66 O2 Sat by Pulse 95 97 95 Oximetry 10/19/21 10/19/21 10/19/21 01:30 02:00 02:30 Temperature Pulse Rate 96 H 100 H 94 H Pulse Rate [ From Monitor] Respiratory 33 H 35 H 34 H Rate Blood Pressure 143/73 139/75 143/73 O2 Sat by Pulse 97 96 97 Oximetry 10/19/21 10/19/21 10/19/21 03:00 04:00 04:08 Temperature 100.2 F H Pulse Rate 97 H 94 H Pulse Rate [ 102 H From Monitor] Respiratory 35 H 30 H Rate Blood Pressure 145/81 145/81 O2 Sat by Pulse 95 95 Oximetry 10/19/21 10/19/21 10/19/21 04:30 05:00 05:30 Temperature Pulse Rate 95 H 95 H 97 H Pulse Rate [ From Monitor] Respiratory 29 H 30 H 30 H Rate Blood Pressure 146/97 156/93 159/94 O2 Sat by Pulse 97 96 97 Oximetry 10/19/21 10/19/21 10/19/21 06:00 06:30 07:00 Temperature Pulse Rate 95 H 96 H 93 H Pulse Rate [ From Monitor] Respiratory 32 H 35 H 31 H Rate Blood Pressure 154/89 158/94 155/87 O2 Sat by Pulse 97 98 97 Oximetry 10/19/21 08:00 Temperature 99.8 F H Pulse Rate Pulse Rate [ From Monitor] Respiratory Rate Blood Pressure O2 Sat by Pulse Oximetry - General physical appearance well developed, no distress, no pain - ENT no hearing loss - Respiratory normal expansion, normal respiratory effort - Abdomen soft, other (appropriately tender to palpation, midline incision c/d/i, YURIDIA drain serous, left side drain with minimal output. ostomy pink, edemetous with serous drainage. no gas or stool in bag) - Labs 10/19/21 04:23 10/19/21 04:23 Diabetes panel 10/19/21 Range/Units 04:23 Sodium 139 (137-145) mmol/L Potassium 3.8 (3.6-5.0) mmol/L Chloride 101.1 (98-107) mmol/L Carbon Dioxide 28 (22-30) mmol/L BUN 20 H (7-17) mg/dL Creatinine 0.8 (0.6-1.2) mg/dL Glucose 138 H (65-100) mg/dL Calcium 7.8 L (8.4-10.2) mg/dL Calcium panel 10/19/21 10/19/21 Range/Units 04:23 04:23 Calcium 7.8 L (8.4-10.2) mg/dL Phosphorus 1.80 L D (2.5-4.5) mg/dL Pituitary panel 10/19/21 Range/Units 04:23 Sodium 139 (137-145) mmol/L Potassium 3.8 (3.6-5.0) mmol/L Chloride 101.1 (98-107) mmol/L Carbon Dioxide 28 (22-30) mmol/L BUN 20 H (7-17) mg/dL Creatinine 0.8 (0.6-1.2) mg/dL Glucose 138 H (65-100) mg/dL Calcium 7.8 L (8.4-10.2) mg/dL Adrenal panel 10/19/21 Range/Units 04:23 Sodium 139 (137-145) mmol/L Potassium 3.8 (3.6-5.0) mmol/L Chloride 101.1 (98-107) mmol/L Carbon Dioxide 28 (22-30) mmol/L BUN 20 H (7-17) mg/dL Creatinine 0.8 (0.6-1.2) mg/dL Glucose 138 H (65-100) mg/dL Calcium 7.8 L (8.4-10.2) mg/dL
--- NOTE | 2021-10-19 10:20 | Progress Note ---
Assessment and Plan - Patient Problems (1) Sepsis Current Visit: Yes Status: Acute Plan to address problem: Follow-up cultures. Continue antibiotics appropriately adjusted to the degree of renal function. (2) Acute renal failure Current Visit: Yes Status: Resolved Qualifiers: Acute renal failure type: unspecified Qualified Code(s): N17.9 - Acute kidney failure, unspecified Plan to address problem: Acute tubular necrosis secondary to hypotension/contrast-induced nephropathy. Kidney function has improved. Follow-up electrolytes and renal function. 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 1) status post laparoscopic converted to open left hemicolectomy with appendectomy for perforated appendicitis with fistulization to sigmoid colon on 09/26/2021 2) status post colorectal anastomosis takedown, with abdominal washout and ABThera wound VAC on 10/12/2021 3) status post colostomy creation with closure of abdomen on 10/14/2021 Continue management by surgeon (5) Hypoalbuminemia due to protein-calorie malnutrition Current Visit: Yes Status: Acute Plan to address problem: Continue parenteral nutritional support. (6) Hypomagnesemia Current Visit: Yes Status: Acute Plan to address problem: Supplement magnesium parenterally and follow-up level (7) Hypophosphatemia Current Visit: Yes Status: Acute Plan to address problem: Supplement phosphorus parenterally and follow-up level. Subjective Date of service: 10/19/21 Principal diagnosis: BRYANNA Interval history: Patient seen lying in bed. She is off the ventilator. She was undergoing physical therapy when I came in. She is awake and communicating verbally. She denies any specific complaints except for pain. Just received the pain medication. Still receiving total parenteral nutrition Objective - Exam Narrative Exam: Young -[place] female lying in bed in no acute distress HEENT: NCAT, mild pallor, anicteric Neck: Supple, no venous distention CVS: S1S2 RRR with no murmur, rub or gallop Chest: Clear to auscultation Abdomen: Protuberant, soft, nontender, no organomegaly, bowel sounds are diminished Extremities: Mild edema Neuro: Awake, alert no focal deficits - Vital Signs Vital signs: Vital Signs - 12hr 10/18/21 10/18/21 10/18/21 22:30 23:00 23:24 Temperature Pulse Rate 99 H 95 H 96 H Pulse Rate [ From Monitor] Respiratory 32 H 32 H 27 H Rate Blood Pressure 156/80 144/74 144/74 O2 Sat by Pulse 96 96 97 Oximetry 10/18/21 10/19/21 10/19/21 23:30 00:00 00:30 Temperature 99.8 F H Pulse Rate 99 H 100 H 97 H Pulse Rate [ 99 H From Monitor] Respiratory 26 H 32 H 28 H Rate Blood Pressure 157/84 139/76 139/70 O2 Sat by Pulse 97 95 97 Oximetry 10/19/21 10/19/21 10/19/21 01:00 01:30 02:00 Temperature Pulse Rate 97 H 96 H 100 H Pulse Rate [ From Monitor] Respiratory 37 H 33 H 35 H Rate Blood Pressure 140/66 143/73 139/75 O2 Sat by Pulse 95 97 96 Oximetry 10/19/21 10/19/21 10/19/21 02:30 03:00 04:00 Temperature 100.2 F H Pulse Rate 94 H 97 H 94 H Pulse Rate [ 102 H From Monitor] Respiratory 34 H 35 H 30 H Rate Blood Pressure 143/73 145/81 O2 Sat by Pulse 97 95 95 Oximetry 10/19/21 10/19/21 10/19/21 04:08 04:30 05:00 Temperature Pulse Rate 95 H 95 H Pulse Rate [ From Monitor] Respiratory 29 H 30 H Rate Blood Pressure 145/81 146/97 156/93 O2 Sat by Pulse 97 96 Oximetry 10/19/21 10/19/21 10/19/21 05:30 06:00 06:30 Temperature Pulse Rate 97 H 95 H 96 H Pulse Rate [ From Monitor] Respiratory 30 H 32 H 35 H Rate Blood Pressure 159/94 154/89 158/94 O2 Sat by Pulse 97 97 98 Oximetry 10/19/21 10/19/21 07:00 08:00 Temperature 99.8 F H Pulse Rate 93 H Pulse Rate [ From Monitor] Respiratory 31 H Rate Blood Pressure 155/87 O2 Sat by Pulse 97 Oximetry - Lab 10/19/21 04:23 10/19/21 04:23 Most recent lab results ABG pH 7.466 pH Units (7.350-7.450) H 10/18/21 11:34 ABG pCO2 41.1 mm Hg 10/18/21 11:34 ABG pO2 90.6 mm Hg (80.0-90.0) H 10/18/21 11:34 ABG HCO3 29.0 mmol/L (20.0-26.0) H 10/18/21 11:34 ABG O2 Saturation 97.3 % (95.0-99.0) 10/18/21 11:34 Calcium 7.8 mg/dL (8.4-10.2) L 10/19/21 04:23 Phosphorus 1.80 mg/dL (2.5-4.5) L D 10/19/21 04:23 Magnesium 1.60 mg/dL (1.7-2.3) L 10/19/21 04:23 Medications & Allergies - Medications Allergies/Adverse Reactions: Allergies No Known Allergies Allergy (Verified 09/24/21 12:21) Home Medications: Home Medications Medication Instructions Recorded Confirmed Last Taken Type No Known Home Medications [No 09/27/21 09/27/21 Unknown History Reported Home Medications] Active Medications: Generic Name Dose Route Start Last Admin Trade Name Freq PRN Reason Stop Dose Admin Acetaminophen 650 mg 10/08/21 21:38 Acetaminophen 325 Mg Tab PO Q6H PRN Pain, Mild (1-3) Albuterol 2.5 mg 09/24/21 18:07 Albuterol 2.5 Mg/3 Ml Nebu IH Q4HRT PRN Shortness Of Breath Dextrose 0 ml 10/03/21 12:37 Dextrose 10% *Hypoglycemia IV PRN PRN Hypoglycemia Diphenhydramine HCl 25 mg 10/04/21 15:14 10/18/21 21:41 Diphenhydramine 50 Mg/Ml Vial IV 25 mg Q6H PRN Administration Itching Famotidine 20 mg 10/08/21 22:00 10/19/21 09:30 Famotidine 20 Mg/2 Ml Inj IV 20 mg BID JAZ Administration Heparin Sodium (Porcine) 5,000 unit 10/16/21 10:00 10/19/21 09:30 Heparin 5,000 Unit/1 Ml Vial SUB-Q 5,000 unit Q12HR JAZ Administration Hydromorphone HCl 0.5 mg 10/18/21 15:39 10/19/21 09:51 Hydromorphone 1 Mg/1 Ml Inj IV 0.5 mg Q3H PRN Administration Pain, Moderate (4-6) Hydrophilic Ointment 1 applic 10/08/21 21:00 Lip Therapy Vaseline TP Q2HR PRN Dry Lips Fluconazole 200 mls @ 100 mls/hr 10/13/21 10:00 10/19/21 09:23 Diflucan IV 100 mls/hr Q24HR JAZ Administration Protocol Meropenem/Sodium Chloride 1 gram in 100 mls @ 100 mls/hr 10/18/21 11:00 10/19/21 04:45 Merrem/Ns 1 Gram/100 Ml IV 100 mls/hr Q6H JAZ Administration Protocol Trimethoprim/Sulfamethoxazole 525 mls @ 167 mls/hr 10/18/21 12:00 10/19/21 06:28 400 mg/ Dextrose IV 167 mls/hr Q6HR JAZ Administration Protocol Amino Acids/Electrolytes/Dextrose 1,999.92 mls @ 83.33 mls/hr 10/18/21 20:00 10/18/21 21:41 Tpn Adult IV 10/19/21 19:59 83.33 mls/hr DAILY@2000 [facility] Administration Protocol Magnesium Sulfate 3 gm/ Sodium 106 mls @ 35.333 mls/hr 10/19/21 08:00 10/19/21 09:22 Chloride IV 10/19/21 12:00 35.333 mls/hr ONCE@0800 JAZ Administration Insulin Glargine 5 units 10/13/21 10:00 10/19/21 09:23 Insulin Glargine 100 Units/Ml SUB-Q 5 units QDAY JAZ Administration Insulin Human Regular 0 units 10/10/21 00:00 10/19/21 06:26 Insulin Regular, Human 100 Units/1 Ml SUB-Q Not Given Q6HR [facility] Protocol Labetalol HCl 10 mg 10/01/21 08:31 10/18/21 15:05 Labetalol 20 Mg/4 Ml Inj IV 10 mg Q6H PRN Administration Hypertension Multi-Ingred Cream/Lotion/Oil/Oint 1 applic 10/08/21 21:00 Mineral Oil/Petrolatum, White Ophth Oint 3.5 Gm OU Q4HR PRN Dry Eye(s) Naloxone HCl 0.1 mg 10/03/21 14:00 Naloxone 0.4 Mg/1 Ml Inj IV Q2MIN PRN Res Rate </= 8 or 02 SAT < 92% Nystatin 1 applic 10/18/21 14:00 10/19/21 09:30 Nystatin Powder 15 Gm TP 10/24/21 22:01 1 applic BID JAZ Administration Ondansetron HCl 4 mg 09/24/21 18:07 10/19/21 09:29 Ondansetron 4 Mg/2 Ml Inj IV 4 mg Q8H PRN Administration Nausea And Vomiting Phenol 1 spray 10/02/21 13:00 10/03/21 10:23 Phenol 1.4% 177 Ml Bottle MM 1 spray PRN PRN Administration Sore Throat Scopolamine 1 each 10/04/21 10:00 10/19/21 09:31 Scopolamine Transdermal Patch 72 Hr TD 1 each Q3D JAZ Administration Sodium Chloride 10 ml 09/24/21 22:00 10/19/21 09:23 Sodium Chloride 0.9% 10 Ml Flush Syringe IV 10 ml BID JAZ Administration Sodium Chloride 10 ml 09/24/21 18:07 09/25/21 08:34 Sodium Chloride 0.9% 10 Ml Flush Syringe IV 10 ml PRN PRN Administration LINE FLUSH
--- NOTE | 2021-10-19 11:19 | Progress Note ---
<CHAD EDEN - Last Filed: 10/19/21 18:37> Assessment and Plan Assessment and plan: This is a 31-year-old female with past medical history of obesity and nephrolithiasis initially admitted to the floor for acute diverticulititis which was complicated by sepsis and acute kidney injury. 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 On 10/08/21 patient developed acute hypoxic respiratory failure requiring ventilatory support, s/p extubation now stable on 2L NC. ICU Course to Date: 10/09: Intubated and sedated, RASS -1 to -2. Recent CXR noted with worsen bilateral opacities with persistent leukocytosis, elevated lactic, and now on 2 pressors. Patient remains afebrile, and already on IV Abx per ID. Will swab patient for COVID. Given recent surgery orders placed for CTA chest, CT Abd/plevis. And also BLE dopplers due to elevated D-Dimer. Renal function is improving, additional IVF to flush out kidney post contrast, Nephrology is also following. Continue TPN and NGT to LIS. 10/10: COVID PCR negative. CTA chest and Abd/plevis noted. No evidence of PE. Patient received X1 dose of 20mg IV lasix per Nephro for pulmonary edema, this am CXR with some improvement, renal function is also improving. Wean vent setting as tolerated per CCM. Plan for possible CT guided drainage placement in IR tomorrow. Continue TPN and NGT to LIS. 10/11: Patient with anemia, 1 unit PRBC, scheduled for CT-guided drain image of air pocket. Will place on CPAP on return. Slightly worsening renal function but nephrology is on the case. 10/12: Taken to OR today for diverting ileostomy, given 3 units PRBC yesterday and appropriate response. Surgical culture grew yeast and ID added added fluconazole. 10/13: Hypomagnesemia repleted, renal function improving. Patient remains sedated with fentanyl and propofol. Updated sister and father at bedside. Ureteral stents removed at bedside. Plan to to take patient to the OR tomorrow for second look, abdominal washout, colostomy creation on hold for abdominal closure by surgery. We will hold p.m. dose of heparin. 10/14: Plan to take patient back to OR today, prophylactic anticougulation on hold. 2 units prbc on hold for surgery. Plan to close abd and colostomy creation. Vent weaning on hold till abd closure 10/15: Renal function remains stable, leukocytosis increased, remains sedated on propofol and fentanyl and on mechanical ventilation. Plan is to hold SBT until the weekend. Repeat renal ultrasound pending per urology. 10/16: no acute events overnight. remains on fent and propofol. plan to sbt on monday. 10/17: noted drop in hgb from 8 to 7.2 and will given one unit prbc. remains on fent/propofol. CARMEN overnight. Will retract OETT per rad reading. 10/18: Febrile this am with worsen leukocytosis. Continue IV Abx per ID, orders placed for cultures. Patient tolerating PST, d/w CCM plan for possible extubation today. Abdominal insicion and colostomy noted, no signs of any complications noted. Continue TPN and NGT to LIS per General surgery. 10/19: S/p extubation, now stable on 2L NC. Fevers improved, cultures pending continue IV Abx per ID. Patient is still with absent bowel sounds, continue TPN and NGT to LIS per General surg. Okay to remove brantley per Urology. Electrolytes repleted, repeat labs in the am. Patient is stable for transfer to [facility]. 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 post appendectomy #VRE infection #Open left hemicolectomy and partial omentectomy #Peritonitis #Diverticulitis with abscess #Possible Bilateral Pneumonia #Septic Shock-resolved -CT abd/pelvis showed diverticulitis with abscess -General surgery following, assistance appreciated -s/p diagnositic laparatomy and drain placement 09/26/2021 -Returned to the OR on 09/30/2021 for left hemicolectomy, appendectomy, and partial omentectomy -10/09 CT abdomen/pelvis showed a new collection of air within the left midabdomen -10/11 CT guided drain placement in IR- Colonic Anastamosis noted -10/12 status post colorectal anastomosis takedown, with abdominal washout and ABThera wound VAC placement -10/13 status post colostomy creation with closure of abdomen -Wound culture +VRE -10/08 Repeat Blood culture negative -10/18 repeat cultures pending -Continue IV Abx per ID recommendations -Continue TPN/PPN per general surgery -NGT to LIS -Trend CBC #Acute Kidney Injury 2/2 Vasomotor Nephropathy vs contrast induced-improved -Nephrology consulted, assistance appreciated -Renal function normalized -Strict intake and output -Avoid nephrotoxic medications; Renally dose medications -Monitor and replace electrolytes as needed #Acute blood loss anemia-Resolved #Gross Hematuria-resolved -09/08 to surgical procedures-- c/f ureteral injury -s/p 7 units of pRBCs since admission -Hematuria resolved, H&H stable -Urology consulted, appreciated recommendation -10/12 Intra-Op cystoscopy completed and bilateral ureteral stents placed- removed on 10/13 By Urology -Repeat renal US noted -Okay to remove Brantley per Urology -Continue to monitor for s/s of any active bleeding, trend CBC -transfuse if hemoglobin less than 7 or patient becomes symptomatic #Moderate protein caloric malnutrition -Albumin 1.6 -Continue TPN/PPN per general surgery -Consulting nutrition; appreciate recs #Elevated D-Dimer -BLE doppler with no evidence of any DVT -Continue AC- Heparin subQ #Hyperglycemia -most likely due to TPN/PPN -Continue SSI Q6hrs -Avoid hypoglycemia #GI/DVT Prophylaxis -Continue PPI- Pepcid -Continue AC- Heparin subQ -SCDs to bilateral lower extremities while in bed The high probability of a clinically significant, sudden or life threatening deterioration of the [multiple] system(s) required my full and direct attention, intervention and personal management. The aggregate critical care time was [60] minutes. This time is in addition to time spent performing reported procedures but includes the following: [x] Data Review and interpretation [x] Patient assessment and monitoring of vital signs [x] Documentation [x] Medication orders and management Disposition Plan: ICU Total Time Spent with Patient (Minutes): 60 History Interval history: Patient was seen and examined at the bedside. S/p extubation, now stable of 2L NC, Fully AAO. Patient voiced that pain is tolerable with current pain management regimen. CARMEN overnight Hospitalist Physical - Constitutional Vitals: Temp Pulse Resp BP Pulse Ox 99.8 F H 94 H 37 H 153/84 98 10/19/21 08:00 10/19/21 10:30 10/19/21 10:30 10/19/21 10:30 10/19/21 10:30 General appearance: Present: no acute distress, obese - EENT Eyes: Present: PERRL, EOM intact ENT: hearing intact - Neck Neck: Present: normal ROM - Respiratory Respiratory effort: normal Respiratory: bilateral: diminished - Cardiovascular Rhythm: regular Heart Sounds: Present: S1 & S2 - Extremities Extremities: no ischemia, pulses intact, pulses symmetrical Extremity abnormal: edema - Peripheral Assessment Generalized Edema Type: Non-pitting Edema Degree: 3+ Capillary Refill: < 3 seconds Skin Temperature: Warm Peripheral Pulses: within normal limits - Abdominal General gastrointestinal: soft, non-distended, absent bowel sounds, other (LUQ Colostomy, Mid Abdominal insicion) - Integumentary Integumentary: Present: warm, dry - Psychiatric Psychiatric: appropriate mood/affect, cooperative - Neurologic Neurologic: CNII-XII intact, moves all extremities - Allied Health Allied health notes reviewed: nursing, case management Results - Labs CBC & Chem 7: 10/19/21 04:23 10/19/21 04:23 Labs: Laboratory Last Values WBC 16.0 K/mm3 (4.5-11.0) H 10/19/21 04:23 RBC 3.04 M/mm3 (3.65-5.03) L 10/19/21 04:23 Hgb 8.7 gm/dl (10.1-14.3) L 10/19/21 04:23 Hct 26.3 % (30.3-42.9) L 10/19/21 04:23 MCV 87 fl (79-97) 10/19/21 04:23 MCH 29 pg (28-32) 10/19/21 04:23 MCHC 33 % (30-34) 10/19/21 04:23 RDW 16.9 % (13.2-15.2) H 10/19/21 04:23 Plt Count 500 K/mm3 (140-440) H 10/19/21 04:23 Mer[place] % (Auto) 5.9 % (0.0-7.3) 09/28/21 04:55 Eos % (Auto) 0.4 % (0.0-4.3) 09/28/21 04:55 [place]ether # (Auto) 0.9 K/mm3 (0.0-0.8) H 09/28/21 04:55 Eos # (Auto) 0.1 K/mm3 (0.0-0.4) 09/28/21 04:55 Baso # (Auto) 0.0 K/mm3 (0.0-0.1) 09/28/21 04:55 Add Manual Diff Complete 10/09/21 05:31 Total Counted 100 10/09/21 05:31 Seg Neutrophils % [employer] 10/03/21 04:55 Seg Neuts % (Manual) 88.0 % (40.0-70.0) H 10/09/21 05:31 Band Neutrophils % 0 % 10/09/21 05:31 Lymphocytes % (Manual) 3.0 % (13.4-35.0) L 10/09/21 05:31 Reactive Lymphs % (Man) 1.0 % 10/09/21 05:31 Monocytes % (Manual) 6.0 % (0.0-7.3) 10/09/21 05:31 Eosinophils % (Manual) 2.0 % (0.0-4.3) 10/09/21 05:31 Basophils % (Manual) 0 % (0.0-1.8) 10/09/21 05:31 Metamyelocytes % 0 % 10/09/21 05:31 Myelocytes % 0 % 10/09/21 05:31 Promyelocytes % 0 % 10/09/21 05:31 Blast Cells % 0 % 10/09/21 05:31 Nucleated RBC % Not Reportable 10/09/21 05:31 Seg Neutrophils # 14.0 K/mm3 (1.8-7.7) H 09/28/21 04:55 Seg Neutrophils # Man 17.9 K/mm3 (1.8-7.7) H 10/09/21 05:31 Band Neutrophils # 0.0 K/mm3 10/09/21 05:31 Lymphocytes # (Manual) 0.6 K/mm3 (1.2-5.4) L 10/09/21 05:31 Abs React Lymphs (Man) 0.2 K/mm3 10/09/21 05:31 Monocytes # (Manual) 1.2 K/mm3 (0.0-0.8) H 10/09/21 05:31 Eosinophils # (Manual) 0.4 K/mm3 (0.0-0.4) 10/09/21 05:31 Basophils # (Manual) 0.0 K/mm3 (0.0-0.1) 10/09/21 05:31 Metamyelocytes # 0.0 K/mm3 10/09/21 05:31 Myelocytes # 0.0 K/mm3 10/09/21 05:31 Promyelocytes # 0.0 K/mm3 10/09/21 05:31 Blast Cells # 0.0 K/mm3 10/09/21 05:31 Pathologist Review 09/24/21 14:58 WBC Morphology Not Reportable 10/09/21 05:31 Hypersegmented Neuts Not Reportable 10/09/21 05:31 Hyposegmented Neuts Not Reportable 10/09/21 05:31 Hypogranular Neuts Not Reportable 10/09/21 05:31 Smudge Cells Not Reportable 10/09/21 05:31 Toxic Granulation Not Reportable 10/09/21 05:31 Toxic Vacuolation Not Reportable 10/09/21 05:31 Dohle Bodies Not Reportable 10/09/21 05:31 Pelger-Huet Anomaly Not Reportable 10/09/21 05:31 Marlene Rods Not Reportable 10/09/21 05:31 Platelet Estimate Consistent w auto 10/09/21 05:31 Clumped Platelets Not Reportable 10/09/21 05:31 Plt Clumps, EDTA Not Reportable 10/09/21 05:31 Large Platelets Not Reportable 10/09/21 05:31 Giant Platelets Not Reportable 10/09/21 05:31 Platelet Satelliting Not Reportable 10/09/21 05:31 Plt Morphology Comment Not Reportable 10/09/21 05:31 RBC Morphology Not Reportable 10/09/21 05:31 Dimorphic RBCs Not Reportable 10/09/21 05:31 Polychromasia Not Reportable 10/09/21 05:31 Hypochromasia Not Reportable 10/09/21 05:31 Poikilocytosis Not Reportable 10/09/21 05:31 Anisocytosis 1+ 10/09/21 05:31 Microcytosis Not Reportable 10/09/21 05:31 Macrocytosis Not Reportable 10/09/21 05:31 Spherocytes Not Reportable 10/09/21 05:31 Pappenheimer Bodies Not Reportable 10/09/21 05:31 Sickle Cells Not Reportable 10/09/21 05:31 Target Cells Not Reportable 10/09/21 05:31 Tear Drop Cells Not Reportable 10/09/21 05:31 Ovalocytes Not Reportable 10/09/21 05:31 Helmet Cells Not Reportable 10/09/21 05:31 Navas-Coin Bodies Not Reportable 10/09/21 05:31 [place] Rings Not Reportable 10/09/21 05:31 [place] Cells Not Reportable 10/09/21 05:31 Bite Cells Not Reportable 10/09/21 05:31 Crenated Cell Not Reportable 10/09/21 05:31 Elliptocytes Not Reportable 10/09/21 05:31 Acanthocytes (Spur) Not Reportable 10/09/21 05:31 Rouleaux Not Reportable 10/09/21 05:31 Hemoglobin C Crystals Not Reportable 10/09/21 05:31 Schistocytes Not Reportable 10/09/21 05:31 Malaria parasites Not Reportable 10/09/21 05:31 Flaco Bodies Not Reportable 10/09/21 05:31 Hem Pathologist Commnt No 10/09/21 05:31 PT 19.0 Sec. (12.2-14.9) H 10/14/21 04:05 INR 1.41 (0.87-1.13) H 10/14/21 04:05 APTT 33.9 Sec. (24.2-36.6) 10/14/21 04:05 D-Dimer > 49207 ng/mlDDU (0-234) H 10/09/21 08:45 ABG pH 7.466 pH Units (7.350-7.450) H 10/18/21 11:34 ABG pCO2 41.1 mm Hg 10/18/21 11:34 ABG pO2 90.6 mm Hg (80.0-90.0) H 10/18/21 11:34 ABG HCO3 29.0 mmol/L (20.0-26.0) H 10/18/21 11:34 ABG O2 Saturation 97.3 % (95.0-99.0) 10/18/21 11:34 ABG O2 Content 11.6 (0.0-44) 10/18/21 11:34 ABG Base Excess 4.9 mmol/L (-2.0-3.0) H 10/18/21 11:34 ABG Hemoglobin 8.6 gm/dl (12.0-16.0) L 10/18/21 11:34 ABG Carboxyhemoglobin 1.4 % (0.0-5.0) 10/18/21 11:34 ABG Methemoglobin 0.6 % (0.0-1.5) 10/18/21 11:34 Oxyhemoglobin 95.4 % (95.0-99.0) 10/18/21 11:34 FiO2 30 % 10/18/21 11:34 Sodium 139 mmol/L (137-145) 10/19/21 04:23 Potassium 3.8 mmol/L (3.6-5.0) 10/19/21 04:23 Chloride 101.1 mmol/L (98-107) 10/19/21 04:23 Carbon Dioxide 28 mmol/L (22-30) 10/19/21 04:23 Anion Gap 14 mmol/L 10/19/21 04:23 BUN 20 mg/dL (7-17) H 10/19/21 04:23 Creatinine 0.8 mg/dL (0.6-1.2) 10/19/21 04:23 Estimated GFR > 60 ml/min 10/19/21 04:23 BUN/Creatinine Ratio 25 % 10/19/21 04:23 Glucose 138 mg/dL (65-100) H 10/19/21 04:23 POC Glucose 126 mg/dL (70-105) H 10/19/21 01:28 Lactic Acid 1.80 mmol/L (0.7-2.0) 10/10/21 04:10 Calcium 7.8 mg/dL (8.4-10.2) L 10/19/21 04:23 Phosphorus 1.80 mg/dL (2.5-4.5) L D 10/19/21 04:23 Magnesium 1.60 mg/dL (1.7-2.3) L 10/19/21 04:23 Ferritin 751.9 ng/mL (10.0-200.0) H 10/09/21 05:31 Total Bilirubin 0.20 mg/dL (0.1-1.2) 10/18/21 04:28 AST 19 units/L (5-40) 10/18/21 04:28 ALT 6 units/L (7-56) L 10/18/21 04:28 Alkaline Phosphatase 53 units/L (35-129) 10/18/21 04:28 Lactate Dehydrogenase 472 units/L (91-180) H 10/09/21 05:31 Total Creatine Kinase 45 units/L (30-135) 10/13/21 04:05 C-Reactive Protein 15.90 mg/dL (0.00-1.30) H 10/09/21 05:31 Total Protein 6.1 g/dL (6.3-8.2) L 10/18/21 04:28 Albumin 2.0 g/dL (3.9-5) L 10/18/21 04:28 Albumin/Globulin Ratio 0.5 % 10/18/21 04:28 Triglycerides 80 mg/dL (2-149) 10/14/21 04:05 Procalcitonin 12.98 ng/mL (<0.15) 10/09/21 05:31 Urine Color Yellow (Yellow) 10/18/21 11:40 Urine Turbidity Clear (Clear) 10/18/21 11:40 Urine pH 6.0 (5.0-7.0) 10/18/21 11:40 Ur Specific Stanley 1.015 (1.003-1.030) 10/18/21 11:40 Urine Protein 30 mg/dl mg/dL (Negative) 10/18/21 11:40 Urine Glucose (UA) Trace mg/dL (Negative) 10/18/21 11:40 Urine Ketones Negative mg/dL (Negative) 10/18/21 11:40 Urine Blood Moderate (Negative) A 10/18/21 11:40 Urine Nitrite Negative (Negative) 10/18/21 11:40 Ur Reducing Substances Not Reportable 09/24/21 14:49 Urine Bilirubin Negative (Negative) 10/18/21 11:40 Urine Ictotest Not Reportable 09/24/21 14:49 Urine Urobilinogen 0.0 mg/dL (<2.0) 10/18/21 11:40 Ur Leukocyte Esterase Negative (Negative) 10/18/21 11:40 Urine WBC (Auto) 50.0 /HPF (0.0-6.0) H 10/18/21 11:40 Urine RBC (Auto) > 182.0 /HPF (0.0-6.0) 10/18/21 11:40 U Epithel Cells (Auto) 2.0 /HPF (0-13.0) 10/18/21 11:40 Urine Bacteria (Auto) 2+ /HPF (Negative) 10/18/21 11:40 Urine WBC Clumps 1+ /HPF 10/18/21 11:40 Hyaline Casts Few /LPF 10/18/21 11:40 Granular Casts Few /LPF 10/18/21 11:40 Urine Mucus 3+ /HPF 10/18/21 11:40 Urine HCG, Qual Negative (Negative) 09/24/21 14:49 Coronavirus (PCR) Negative (Negative) 10/09/21 10:15 Blood Type A POSITIVE 10/17/21 12:50 Antibody Screen Negative 10/17/21 12:50 Crossmatch See Detail 10/17/21 12:50 Microbiology: Microbiology 10/18/21 08:10 Tracheal Aspirate Sputum Culture - Preliminary Gram Negative Dany 10/18/21 08:17 Peripheral/Venous Blood Culture - Preliminary NO GROWTH AFTER 24 HOURS 10/18/21 08:17 Peripheral/Venous Blood Culture - Preliminary NO GROWTH AFTER 24 HOURS 10/18/21 13:02 Urine,Catheterized - Indwelling Catheter Urine Culture - P reliminary NO GROWTH AFTER 24 HOURS Brantley/IV: Voiding Method Indwelling Catheter Active Medications - Current Medications Current Medications: Generic Name Dose Route Start Last Admin Trade Name Freq PRN Reason Stop Dose Admin Acetaminophen 650 mg 10/08/21 21:38 Acetaminophen 325 Mg Tab PO Q6H PRN Pain, Mild (1-3) Albuterol 2.5 mg 09/24/21 18:07 Albuterol 2.5 Mg/3 Ml Nebu IH Q4HRT PRN Shortness Of Breath Dextrose 0 ml 10/03/21 12:37 Dextrose 10% *Hypoglycemia IV PRN PRN Hypoglycemia Diphenhydramine HCl 25 mg 10/04/21 15:14 10/18/21 21:41 Diphenhydramine 50 Mg/Ml Vial IV 25 mg Q6H PRN Administration Itching Famotidine 20 mg 10/08/21 22:00 10/19/21 09:30 Famotidine 20 Mg/2 Ml Inj IV 20 mg BID JAZ Administration Heparin Sodium (Porcine) 5,000 unit 10/16/21 10:00 10/19/21 09:30 Heparin 5,000 Unit/1 Ml Vial SUB-Q 5,000 unit Q12HR JAZ Administration Hydromorphone HCl 0.5 mg 10/18/21 15:39 10/19/21 09:51 Hydromorphone 1 Mg/1 Ml Inj IV 0.5 mg Q3H PRN Administration Pain, Moderate (4-6) Hydrophilic Ointment 1 applic 10/08/21 21:00 Lip Therapy Vaseline TP Q2HR PRN Dry Lips Fluconazole 200 mls @ 100 mls/hr 10/13/21 10:00 10/19/21 09:23 Diflucan IV 100 mls/hr Q24HR JAZ Administration Protocol Meropenem/Sodium Chloride 1 gram in 100 mls @ 100 mls/hr 10/18/21 11:00 10/19/21 04:45 Merrem/Ns 1 Gram/100 Ml IV 100 mls/hr Q6H JAZ Administration Protocol Trimethoprim/Sulfamethoxazole 525 mls @ 167 mls/hr 10/18/21 12:00 10/19/21 06:28 400 mg/ Dextrose IV 167 mls/hr Q6HR JAZ Administration Protocol Amino Acids/Electrolytes/Dextrose 1,999.92 mls @ 83.33 mls/hr 10/18/21 20:00 10/18/21 21:41 Tpn Adult IV 10/19/21 19:59 83.33 mls/hr DAILY@2000 [facility] Administration Protocol Magnesium Sulfate 3 gm/ Sodium 106 mls @ 35.333 mls/hr 10/19/21 08:00 10/19/21 09:22 Chloride IV 10/19/21 12:00 35.333 mls/hr ONCE@0800 JAZ Administration Insulin Glargine 5 units 10/13/21 10:00 10/19/21 09:23 Insulin Glargine 100 Units/Ml SUB-Q 5 units QDAY JAZ Administration Insulin Human Regular 0 units 10/10/21 00:00 10/19/21 06:26 Insulin Regular, Human 100 Units/1 Ml SUB-Q Not Given Q6HR [facility] Protocol Labetalol HCl 10 mg 10/01/21 08:31 10/18/21 15:05 Labetalol 20 Mg/4 Ml Inj IV 10 mg Q6H PRN Administration Hypertension Multi-Ingred Cream/Lotion/Oil/Oint 1 applic 10/08/21 21:00 Mineral Oil/Petrolatum, White Ophth Oint 3.5 Gm OU Q4HR PRN Dry Eye(s) Naloxone HCl 0.1 mg 10/03/21 14:00 Naloxone 0.4 Mg/1 Ml Inj IV Q2MIN PRN Res Rate </= 8 or 02 SAT < 92% Nystatin 1 applic 10/18/21 14:00 10/19/21 09:30 Nystatin Powder 15 Gm TP 10/24/21 22:01 1 applic BID JAZ Administration Ondansetron HCl 4 mg 09/24/21 18:07 10/19/21 09:29 Ondansetron 4 Mg/2 Ml Inj IV 4 mg Q8H PRN Administration Nausea And Vomiting Phenol 1 spray 10/02/21 13:00 10/03/21 10:23 Phenol 1.4% 177 Ml Bottle MM 1 spray PRN PRN Administration Sore Throat Scopolamine 1 each 10/04/21 10:00 10/19/21 09:31 Scopolamine Transdermal Patch 72 Hr TD 1 each Q3D JAZ Administration Sodium Chloride 10 ml 09/24/21 22:00 10/19/21 09:23 Sodium Chloride 0.9% 10 Ml Flush Syringe IV 10 ml BID JAZ Administration Sodium Chloride 10 ml 09/24/21 18:07 09/25/21 08:34 Sodium Chloride 0.9% 10 Ml Flush Syringe IV 10 ml PRN PRN Administration LINE FLUSH Nutrition/Malnutrition Assess - Dietary Evaluation Nutrition/Malnutrition Findings: Nutrition Notes Start: 09/25/21 15:31 Freq: Status: Active Protocol: Document 10/19/21 09:56 BIN (Rec: 10/19/21 10:08 BIN [email or web address]) Nutrition Notes Initial or Follow up Reassessment Current Diagnosis Acute Kidney Injury, Malnutrition Other Pertinent Diagnosis s/p appendectomy, s/p exp lap with colostomy, anemia Current Diet CPN at 83.33 ml/hr Labs/Tests 10/19: BUN 20, Glu 138, Ca 7.8 , Phos 1.8, Mg 1.6. Pertinent Medications 10/19: Insulin, others nutritionally unremarkable. Height 5 ft 7 in Weight 110 kg [place] Body Weight (kg) 61.36 BMI 38.0 Weight change and time frame No body weight change reported in 1 day. Weight Status Obese Subjective/Other Information Day 17 CPN. Pt off Mechanical Ventilation on 10/18, well tolerated, Pt alert and awake, according to Progress notes. Ileus continues, Good urine output, Bilateral Pneumonia improving, BRYANNA improving, according to Progress notes. Percent of energy/protein needs met: 76% Kcal; 98% AA. Burn Absent Trauma Absent GI Symptoms Other Food Allergy No Skin Integrity/Comment Surgical wound Current % PO Other Minimum of two criteria No #1 Nutrition Diagnosis Altered GI function Diagnosis Progress(for reassessment Continues documentation) Is patient on ventilator? Yes Is Patient Ambulatory and/or Out of Bed No REE-([facility]-confined to bed) 2212.908 Kcal/Kg value to use for calculation 16 Approximate Energy Requirements Using 1760 kcal/Kg Calculation Used for Recommendations Kcal/kg Additional Notes Protein: 2 g/Kg; 123 g/day IBW . Fluids: 1 mL/Kcal, or as per MD. Nutrition Intervention Nutrition Support: Continue CPN at 83.33 ml/hr: MVI, 6.0% amino acids, 12.5% Dextrose. K 60 mEq, Mg 10 mEq,Phos 40 mmol. Osmolality: 1445. Kcal 1,330 Protein (gm) 120 Carbohydrates (gm) 250 Fat (gm) 0 Fluid (mL) 2,000 Fiber (gm) 0 % RDI: 76% Kcal; 98% AA. Goal #1 Provide at least 75% of energy /protein needs through Parenteral Feeding during LOS. Goal #2 Maintain body weight within +/ -3% of admission body weight during LOS. Follow-Up By: 10/20/21 Additional Comments Continue monitoring CPN tolerance and BM. BMP, Phos, Mg labs ordered. <PAULIE HAY - Last Filed: 10/20/21 07:24> Assessment and Plan Assessment and plan: I saw and evaluated the patient. I agree with the findings and the plan of care as documented in the Nurse Practitioner's~note, with the following corrections and additions. Hospitalist Physical - Constitutional Vitals: Temp Pulse Resp BP Pulse Ox 99.0 F 111 H 42 H 157/109 95 10/20/21 04:00 10/20/21 04:10 10/20/21 06:04 10/20/21 04:00 10/20/21 04:00 Results - Labs CBC & Chem 7: 10/19/21 04:23 10/19/21 04:23 Labs: Laboratory Last Values WBC 16.0 K/mm3 (4.5-11.0) H 10/19/21 04:23 RBC 3.04 M/mm3 (3.65-5.03) L 10/19/21 04:23 Hgb 8.7 gm/dl (10.1-14.3) L 10/19/21 04:23 Hct 26.3 % (30.3-42.9) L 10/19/21 04:23 MCV 87 fl (79-97) 10/19/21 04:23 MCH 29 pg (28-32) 10/19/21 04:23 MCHC 33 % (30-34) 10/19/21 04:23 RDW 16.9 % (13.2-15.2) H 10/19/21 04:23 Plt Count 500 K/mm3 (140-440) H 10/19/21 04:23 [place] % (Auto) 5.9 % (0.0-7.3) 09/28/21 04:55 Eos % (Auto) 0.4 % (0.0-4.3) 09/28/21 04:55 [place] # (Auto) 0.9 K/mm3 (0.0-0.8) H 09/28/21 04:55 Eos # (Auto) 0.1 K/mm3 (0.0-0.4) 09/28/21 04:55 Baso # (Auto) 0.0 K/mm3 (0.0-0.1) 09/28/21 04:55 Add Manual Diff Complete 10/09/21 05:31 Total Counted 100 10/09/21 05:31 Seg Neutrophils % [employer] 10/03/21 04:55 Seg Neuts % (Manual) 88.0 % (40.0-70.0) H 10/09/21 05:31 Band Neutrophils % 0 % 10/09/21 05:31 Lymphocytes % (Manual) 3.0 % (13.4-35.0) L 10/09/21 05:31 Reactive Lymphs % (Man) 1.0 % 10/09/21 05:31 Monocytes % (Manual) 6.0 % (0.0-7.3) 10/09/21 05:31 Eosinophils % (Manual) 2.0 % (0.0-4.3) 10/09/21 05:31 Basophils % (Manual) 0 % (0.0-1.8) 10/09/21 05:31 Metamyelocytes % 0 % 10/09/21 05:31 Myelocytes % 0 % 10/09/21 05:31 Promyelocytes % 0 % 10/09/21 05:31 Blast Cells % 0 % 10/09/21 05:31 Nucleated RBC % Not Reportable 10/09/21 05:31 Seg Neutrophils # 14.0 K/mm3 (1.8-7.7) H 09/28/21 04:55 Seg Neutrophils # Man 17.9 K/mm3 (1.8-7.7) H 10/09/21 05:31 Band Neutrophils # 0.0 K/mm3 10/09/21 05:31 Lymphocytes # (Manual) 0.6 K/mm3 (1.2-5.4) L 10/09/21 05:31 Abs React Lymphs (Man) 0.2 K/mm3 10/09/21 05:31 Monocytes # (Manual) 1.2 K/mm3 (0.0-0.8) H 10/09/21 05:31 Eosinophils # (Manual) 0.4 K/mm3 (0.0-0.4) 10/09/21 05:31 Basophils # (Manual) 0.0 K/mm3 (0.0-0.1) 10/09/21 05:31 Metamyelocytes # 0.0 K/mm3 10/09/21 05:31 Myelocytes # 0.0 K/mm3 10/09/21 05:31 Promyelocytes # 0.0 K/mm3 10/09/21 05:31 Blast Cells # 0.0 K/mm3 10/09/21 05:31 Pathologist Review 09/24/21 14:58 WBC Morphology Not Reportable 10/09/21 05:31 Hypersegmented Neuts Not Reportable 10/09/21 05:31 Hyposegmented Neuts Not Reportable 10/09/21 05:31 Hypogranular Neuts Not Reportable 10/09/21 05:31 Smudge Cells Not Reportable 10/09/21 05:31 Toxic Granulation Not Reportable 10/09/21 05:31 Toxic Vacuolation Not Reportable 10/09/21 05:31 Dohle Bodies Not Reportable 10/09/21 05:31 Pelger-Huet Anomaly Not Reportable 10/09/21 05:31 Marlene Rods Not Reportable 10/09/21 05:31 Platelet Estimate Consistent w auto 10/09/21 05:31 Clumped Platelets Not Reportable 10/09/21 05:31 Plt Clumps, EDTA Not Reportable 10/09/21 05:31 Large Platelets Not Reportable 10/09/21 05:31 Giant Platelets Not Reportable 10/09/21 05:31 Platelet Satelliting Not Reportable 10/09/21 05:31 Plt Morphology Comment Not Reportable 10/09/21 05:31 RBC Morphology Not Reportable 10/09/21 05:31 Dimorphic RBCs Not Reportable 10/09/21 05:31 Polychromasia Not Reportable 10/09/21 05:31 Hypochromasia Not Reportable 10/09/21 05:31 Poikilocytosis Not Reportable 10/09/21 05:31 Anisocytosis 1+ 10/09/21 05:31 Microcytosis Not Reportable 10/09/21 05:31 Macrocytosis Not Reportable 10/09/21 05:31 Spherocytes Not Reportable 10/09/21 05:31 Pappenheimer Bodies Not Reportable 10/09/21 05:31 Sickle Cells Not Reportable 10/09/21 05:31 Target Cells Not Reportable 10/09/21 05:31 Tear Drop Cells Not Reportable 10/09/21 05:31 Ovalocytes Not Reportable 10/09/21 05:31 Helmet Cells Not Reportable 10/09/21 05:31 Navas-Coin Bodies Not Reportable 10/09/21 05:31 [place] Rings Not Reportable 10/09/21 05:31 [place] Cells Not Reportable 10/09/21 05:31 Bite Cells Not Reportable 10/09/21 05:31 Crenated Cell Not Reportable 10/09/21 05:31 Elliptocytes Not Reportable 10/09/21 05:31 Acanthocytes (Spur) Not Reportable 10/09/21 05:31 Rouleaux Not Reportable 10/09/21 05:31 Hemoglobin C Crystals Not Reportable 10/09/21 05:31 Schistocytes Not Reportable 10/09/21 05:31 Malaria parasites Not Reportable 10/09/21 05:31 Flaco Bodies Not Reportable 10/09/21 05:31 Hem Pathologist Commnt No 10/09/21 05:31 PT 19.0 Sec. (12.2-14.9) H 10/14/21 04:05 INR 1.41 (0.87-1.13) H 10/14/21 04:05 APTT 33.9 Sec. (24.2-36.6) 10/14/21 04:05 D-Dimer > 30936 ng/mlDDU (0-234) H 10/09/21 08:45 ABG pH 7.466 pH Units (7.350-7.450) H 10/18/21 11:34 ABG pCO2 41.1 mm Hg 10/18/21 11:34 ABG pO2 90.6 mm Hg (80.0-90.0) H 10/18/21 11:34 ABG HCO3 29.0 mmol/L (20.0-26.0) H 10/18/21 11:34 ABG O2 Saturation 97.3 % (95.0-99.0) 10/18/21 11:34 ABG O2 Content 11.6 (0.0-44) 10/18/21 11:34 ABG Base Excess 4.9 mmol/L (-2.0-3.0) H 10/18/21 11:34 ABG Hemoglobin 8.6 gm/dl (12.0-16.0) L 10/18/21 11:34 ABG Carboxyhemoglobin 1.4 % (0.0-5.0) 10/18/21 11:34 ABG Methemoglobin 0.6 % (0.0-1.5) 10/18/21 11:34 Oxyhemoglobin 95.4 % (95.0-99.0) 10/18/21 11:34 FiO2 30 % 10/18/21 11:34 Sodium 139 mmol/L (137-145) 10/19/21 04:23 Potassium 3.8 mmol/L (3.6-5.0) 10/19/21 04:23 Chloride 101.1 mmol/L (98-107) 10/19/21 04:23 Carbon Dioxide 28 mmol/L (22-30) 10/19/21 04:23 Anion Gap 14 mmol/L 10/19/21 04:23 BUN 20 mg/dL (7-17) H 10/19/21 04:23 Creatinine 0.8 mg/dL (0.6-1.2) 10/19/21 04:23 Estimated GFR > 60 ml/min 10/19/21 04:23 BUN/Creatinine Ratio 25 % 10/19/21 04:23 Glucose 138 mg/dL (65-100) H 10/19/21 04:23 POC Glucose 117 mg/dL (70-105) H 10/20/21 05:39 Lactic Acid 1.80 mmol/L (0.7-2.0) 10/10/21 04:10 Calcium 7.8 mg/dL (8.4-10.2) L 10/19/21 04:23 Phosphorus 1.80 mg/dL (2.5-4.5) L D 10/19/21 04:23 Magnesium 1.60 mg/dL (1.7-2.3) L 10/19/21 04:23 Ferritin 751.9 ng/mL (10.0-200.0) H 10/09/21 05:31 Total Bilirubin 0.20 mg/dL (0.1-1.2) 10/18/21 04:28 AST 19 units/L (5-40) 10/18/21 04:28 ALT 6 units/L (7-56) L 10/18/21 04:28 Alkaline Phosphatase 53 units/L (35-129) 10/18/21 04:28 Lactate Dehydrogenase 472 units/L (91-180) H 10/09/21 05:31 Total Creatine Kinase 45 units/L (30-135) 10/13/21 04:05 C-Reactive Protein 15.90 mg/dL (0.00-1.30) H 10/09/21 05:31 Total Protein 6.1 g/dL (6.3-8.2) L 10/18/21 04:28 Albumin 2.0 g/dL (3.9-5) L 10/18/21 04:28 Albumin/Globulin Ratio 0.5 % 10/18/21 04:28 Triglycerides 80 mg/dL (2-149) 10/14/21 04:05 Procalcitonin 12.98 ng/mL (<0.15) 10/09/21 05:31 Urine Color Yellow (Yellow) 10/18/21 11:40 Urine Turbidity Clear (Clear) 10/18/21 11:40 Urine pH 6.0 (5.0-7.0) 10/18/21 11:40 Ur Specific [place] 1.015 (1.003-1.030) 10/18/21 11:40 Urine Protein 30 mg/dl mg/dL (Negative) 10/18/21 11:40 Urine Glucose (UA) Trace mg/dL (Negative) 10/18/21 11:40 Urine Ketones Negative mg/dL (Negative) 10/18/21 11:40 Urine Blood Moderate (Negative) A 10/18/21 11:40 Urine Nitrite Negative (Negative) 10/18/21 11:40 Ur Reducing Substances Not Reportable 09/24/21 14:49 Urine Bilirubin Negative (Negative) 10/18/21 11:40 Urine Ictotest Not Reportable 09/24/21 14:49 Urine Urobilinogen 0.0 mg/dL (<2.0) 10/18/21 11:40 Ur Leukocyte Esterase Negative (Negative) 10/18/21 11:40 Urine WBC (Auto) 50.0 /HPF (0.0-6.0) H 10/18/21 11:40 Urine RBC (Auto) > 182.0 /HPF (0.0-6.0) 10/18/21 11:40 U Epithel Cells (Auto) 2.0 /HPF (0-13.0) 10/18/21 11:40 Urine Bacteria (Auto) 2+ /HPF (Negative) 10/18/21 11:40 Urine WBC Clumps 1+ /HPF 10/18/21 11:40 Hyaline Casts Few /LPF 10/18/21 11:40 Granular Casts Few /LPF 10/18/21 11:40 Urine Mucus 3+ /HPF 10/18/21 11:40 Urine HCG, Qual Negative (Negative) 09/24/21 14:49 Coronavirus (PCR) Negative (Negative) 10/09/21 10:15 Blood Type A POSITIVE 10/17/21 12:50 Antibody Screen Negative 10/17/21 12:50 Crossmatch See Detail 10/17/21 12:50 Microbiology: Microbiology 10/18/21 08:10 Tracheal Aspirate Sputum Culture - Preliminary Gram Negative Dany 10/18/21 08:17 Peripheral/Venous Blood Culture - Preliminary NO GROWTH AFTER 24 HOURS 10/18/21 08:17 Peripheral/Venous Blood Culture - Preliminary NO GROWTH AFTER 24 HOURS 10/18/21 13:02 Urine,Catheterized - Indwelling Catheter Urine Culture - Preliminary NO GROWTH AFTER 24 HOURS Brantley/IV: Voiding Method External Female Catheter Active Medications - Current Medications Current Medications: Generic Name Dose Route Start Last Admin Trade Name Freq PRN Reason Stop Dose Admin Acetaminophen 650 mg 10/08/21 21:38 Acetaminophen 325 Mg Tab PO Q6H PRN Pain, Mild (1-3) Albuterol 2.5 mg 09/24/21 18:07 Albuterol 2.5 Mg/3 Ml Nebu IH Q4HRT PRN Shortness Of Breath Dextrose 0 ml 10/03/21 12:37 Dextrose 10% *Hypoglycemia IV PRN PRN Hypoglycemia Diphenhydramine HCl 25 mg 10/04/21 15:14 10/20/21 03:11 Diphenhydramine 50 Mg/Ml Vial IV 25 mg Q6H PRN Administration Itching Famotidine 20 mg 10/08/21 22:00 10/19/21 22:00 Famotidine 20 Mg/2 Ml Inj IV 20 mg BID JAZ Administration Heparin Sodium (Porcine) 5,000 unit 10/16/21 10:00 10/19/21 22:01 Heparin 5,000 Unit/1 Ml Vial SUB-Q 5,000 unit Q12HR JAZ Administration Hydromorphone HCl 0.5 mg 10/18/21 15:39 10/20/21 06:04 Hydromorphone 1 Mg/1 Ml Inj IV 0.5 mg Q3H PRN Administration Pain, Moderate (4-6) Hydrophilic Ointment 1 applic 10/08/21 21:00 10/19/21 21:59 Lip Therapy Vaseline TP 1 applic Q2HR PRN Administration Dry Lips Fluconazole 200 mls @ 100 mls/hr 10/13/21 10:00 10/19/21 09:23 Diflucan IV 100 mls/hr Q24HR JAZ Administration Protocol Meropenem/Sodium Chloride 1 gram in 100 mls @ 100 mls/hr 10/18/21 11:00 10/20/21 04:14 Merrem/Ns 1 Gram/100 Ml IV 100 mls/hr Q6H JAZ Administration Protocol Trimethoprim/Sulfamethoxazole 525 mls @ 167 mls/hr 10/18/21 12:00 10/20/21 06:01 400 mg/ Dextrose IV 167 mls/hr Q6HR JAZ Administration Protocol Amino Acids/Electrolytes/Dextrose 1,999.92 mls @ 83.33 mls/hr 10/19/21 20:00 10/19/21 20:16 Tpn Adult IV 10/20/21 19:59 83.33 mls/hr DAILY@2000 JAZ Administration Protocol Insulin Glargine 5 units 10/13/21 10:00 10/19/21 09:23 Insulin Glargine 100 Units/Ml SUB-Q 5 units QDAY JAZ Administration Insulin Human Regular 0 units 10/10/21 00:00 10/19/21 18:07 Insulin Regular, Human 100 Units/1 Ml SUB-Q 3 units Q6HR JAZ Administration Protocol Labetalol HCl 10 mg 10/01/21 08:31 10/18/21 15:05 Labetalol 20 Mg/4 Ml Inj IV 10 mg Q6H PRN Administration Hypertension Multi-Ingred Cream/Lotion/Oil/Oint 1 applic 10/08/21 21:00 Mineral Oil/Petrolatum, White Ophth Oint 3.5 Gm OU Q4HR PRN Dry Eye(s) Naloxone HCl 0.1 mg 10/03/21 14:00 Naloxone 0.4 Mg/1 Ml Inj IV Q2MIN PRN Res Rate </= 8 or 02 SAT < 92% Nystatin 1 applic 10/18/21 14:00 10/19/21 22:01 Nystatin Powder 15 Gm TP 10/24/21 22:01 1 applic BID JAZ Administration Ondansetron HCl 4 mg 09/24/21 18:07 10/20/21 06:04 Ondansetron 4 Mg/2 Ml Inj IV 4 mg Q8H PRN Administration Nausea And Vomiting Phenol 1 spray 10/02/21 13:00 10/03/21 10:23 Phenol 1.4% 177 Ml Bottle MM 1 spray PRN PRN Administration Sore Throat Scopolamine 1 each 10/04/21 10:00 10/19/21 09:31 Scopolamine Transdermal Patch 72 Hr TD 1 each Q3D JAZ Administration Sodium Chloride 10 ml 09/24/21 22:00 10/19/21 22:00 Sodium Chloride 0.9% 10 Ml Flush Syringe IV 10 ml BID JAZ Administration Sodium Chloride 10 ml 09/24/21 18:07 09/25/21 08:34 Sodium Chloride 0.9% 10 Ml Flush Syringe IV 10 ml PRN PRN Administration LINE FLUSH Nutrition/Malnutrition Assess - Dietary Evaluation Nutrition/Malnutrition Findings: Nutrition Notes Start: 09/25/21 15:31 Freq: Status: Active Protocol: Document 10/19/21 09:56 BIN (Rec: 10/19/21 10:08 BIN [id number]) Nutrition Notes Initial or Follow up Reassessment Current Diagnosis Acute Kidney Injury, Malnutrition Other Pertinent Diagnosis s/p appendectomy, s/p exp lap with colostomy, anemia Current Diet CPN at 83.33 ml/hr Labs/Tests 10/19: BUN 20, Glu 138, Ca 7.8 , Phos 1.8, Mg 1.6. Pertinent Medications 10/19: Insulin, others nutritionally unremarkable. Height 5 ft 7 in Weight 110 kg [place] Body Weight (kg) 61.36 BMI 38.0 Weight change and time frame No body weight change reported in 1 day. Weight Status Obese Subjective/Other Information Day 17 CPN. Pt off Mechanical Ventilation on 10/18, well tolerated, Pt alert and awake, according to Progress notes. Ileus continues, Good urine output, Bilateral Pneumonia improving, BRYANNA improving, according to Progress notes. Percent of energy/protein needs met: 76% Kcal; 98% AA. Burn Absent Trauma Absent GI Symptoms Other Food Allergy No Skin Integrity/Comment Surgical wound Current % PO Other Minimum of two criteria No #1 Nutrition Diagnosis Altered GI function Diagnosis Progress(for reassessment Continues documentation) Is patient on ventilator? Yes Is Patient Ambulatory and/or Out of Bed No REE-([facility]-confined to bed) 2212.908 Kcal/Kg value to use for calculation 16 Approximate Energy Requirements Using 1760 kcal/Kg Calculation Used for Recommendations Kcal/kg Additional Notes Protein: 2 g/Kg; 123 g/day IBW . Fluids: 1 mL/Kcal, or as per MD. Nutrition Intervention Nutrition Support: Continue CPN at 83.33 ml/hr: MVI, 6.0% amino acids, 12.5% Dextrose. K 60 mEq, Mg 10 mEq,Phos 40 mmol. Osmolality: 1445. Kcal 1,330 Protein (gm) 120 Carbohydrates (gm) 250 Fat (gm) 0 Fluid (mL) 2,000 Fiber (gm) 0 % RDI: 76% Kcal; 98% AA. Goal #1 Provide at least 75% of energy /protein needs through Parenteral Feeding during LOS. Goal #2 Maintain body weight within +/ -3% of admission body weight during LOS. Follow-Up By: 10/20/21 Additional Comments Continue monitoring CPN tolerance and BM. BMP, Phos, Mg labs ordered.
--- NOTE | 2021-10-19 12:37 | Progress Note ---
Assessment and Plan Cultures: 09/24/2021 blood culture: No growth 09/30/2021 YURIDIA drain wound culture: VRE, Enterococcus faecium 10/08/2021 blood culture: No growth 10/11/2021 intra-abdominal surgical culture: Jo Ann albicans, MSSA, stenotrophom onas 10/12/2021 tracheal culture: No growth 10/18/2021 blood culture: no growth 10/18/2021 urine culture: no growth 10/18/2021 sputum culture: GNR A/P: 31-year-old female past medical history obesity, nephrolithiasis admitted with: #Sepsis: Secondary to intra-abdominal infection. 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 Extubated 08/20/2021. #Leukocytosis, reactive thrombocytosis #BRYANNA: resolved. #Obesity Recs: -continue empiric meropenem, fluconazole, Bactrim -f/u final culture results Mónica Swan MD, FACPCH[facility] O: [phone] F: [phone] C: [phone] Subjective Date of service: 10/19/21 Principal diagnosis: BRYANNA Interval history: Low grade temps, no fever. Now extubated. Discussed with RN. She is on TPN. NG tube to intermittent suction. Objective - Exam Narrative Exam: Physical Exam: Constitutional: Awake, alert, no distress Head, Ears, Nose: Normocephalic, atraumatic. External ears, nose normal Eyes: Conjunctivae/corneas clear. No icterus. No ptosis. Neck: supple Cardiovascular: S1, S2 + Respiratory: AE fair bilaterally and equal GI: Soft, dressing, drain present, colostomy present Musculoskeletal: Obese, edema present Skin: No rash or abscess Hem/Lymphatic: No palpable cervical or supraclavicular nodes. No lymphangitis Psych: calm Neurological: Awake, alert, answering questions - Constitutional Vitals: Vital Signs Temp Pulse Resp BP Pulse Ox 99.8 F H 96 H 39 H 158/90 97 10/19/21 08:00 10/19/21 11:00 10/19/21 11:00 10/19/21 11:00 10/19/21 11:00 Temperature -Last 24 Hours Temperature 99.8 F Temperature 100.2 F Temperature 99.8 F Temperature 99.5 F Temperature 98.0 F Temperature 100.2 F - Labs CBC & Chem 7: 10/19/21 04:23 10/19/21 04:23 Labs: Abnormal lab results 10/18/21 10/18/21 10/19/21 Range/Units 11:40 16:18 01:28 WBC (4.5-11.0) K/mm3 RBC (3.65-5.03) M/mm3 Hgb (10.1-14.3) gm/dl Hct (30.3-42.9) % RDW (13.2-15.2) % Plt Count (140-440) K/mm3 BUN (7-17) mg/dL Glucose (65-100) mg/dL POC Glucose 139 H 126 H (70-105) mg/dL Calcium (8.4-10.2) mg/dL Phosphorus (2.5-4.5) mg/dL Magnesium (1.7-2.3) mg/dL Urine Blood Moderate A (Negative) Urine WBC (Auto) 50.0 H (0.0-6.0) /HPF 10/19/21 10/19/21 10/19/21 Range/Units 04:23 04:23 04:23 WBC 16.0 H (4.5-11.0) K/mm3 RBC 3.04 L (3.65-5.03) M/mm3 Hgb 8.7 L (10.1-14.3) gm/dl Hct 26.3 L (30.3-42.9) % RDW 16.9 H (13.2-15.2) % Plt Count 500 H (140-440) K/mm3 BUN 20 H (7-17) mg/dL Glucose 138 H (65-100) mg/dL POC Glucose (70-105) mg/dL Calcium 7.8 L (8.4-10.2) mg/dL Phosphorus 1.80 L D (2.5-4.5) mg/dL Magnesium 1.60 L (1.7-2.3) mg/dL Urine Blood (Negative) Urine WBC (Auto) (0.0-6.0) /HPF
--- NOTE | 2021-10-19 14:56 | Progress Note ---
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 Open left hemicolectomy and partial omentectomy Peritonitis Leukocytosis Diverticulitis with absces -CT abd/pelvis showed diverticulitis with abscess -General surgery following, assistance appreciated -s/p diagnositic laparatomy and drain placement 09/26/2021 Returned to the OR on 09/30/2021 for left hemicolectomy, appendectomy, and partial omentectomy -Wound culture +VRE Acute renal failure 09/08 ATN/Vasomotor nephropathy Acute blood loss anemia Gross Hematuria-resolved -09/08 to surgical procedures-- c/f ureteral injury -s/p 3 units of pRBCs since admission Discontinue Doss Continue with wound care Discussed with General surgery and primary service - continue to titrate supplemental oxygen to keep SPO2 88-90% -CXR , ABG as indicated -trend temperature curve, trend WCC -Antibiotics per ID. -NPO, TPN for nutritional support - continue bronchodilators with pulmonary hygiene per RT -Incentive spirometry; PT/OT, increase activity as tolerated - Accuchecks with glycemic control per SSI (While critically ill target blood glucose of 140-180 mg/dL; avoid hypoglycemia) - continue to avoid benzodiazepines, reduce the possibility of delirium - Maintenance of sleep-wake cycle, avoid delirium - Stress prophylaxis -VTE prophylaxis -Supportive transfusions, to keep HgB >7g/dL -Avoid nephrotoxins and dose all medications for GFR and CrCL - mobility, off loading and frequent turning to prevent pressure ulcer - Monitor hemodynamics closely - continue other care per attending / other consultants CONDITION: FAIR PROGNOSIS: GUARDED CODE STATUS: FULL CODE Subjective Date of service: 10/19/21 Principal diagnosis: BRYANNA Interval history: Patient is seen today for: Septic shock; AHRF; Anemia; Pneumonia (Aspiration); 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 s/p appendectomy; VRE infection; Open left hemicolectomy and partial omentectomy; Peritonitis; Diverticulitis with abscess;BRYANNA; ABLA; Gross Hematuria Seen and examined at bedside; 24hour events reviewed; nursing and respiratory care staff consulted; no adverse overnight events reported to me; resting in bed; extubated yesterday, currently on 2L MC; denies acute chest pain; denies N/V/F/C; good pain control per patient Objective Vital Signs - 12hr 10/19/21 10/19/21 10/19/21 03:00 04:00 04:08 Temperature 100.2 F H Pulse Rate 97 H 94 H Pulse Rate [ 102 H From Monitor] Respiratory 35 H 30 H Rate Blood Pressure 145/81 145/81 O2 Sat by Pulse 95 95 Oximetry 10/19/21 10/19/21 10/19/21 04:30 05:00 05:30 Temperature Pulse Rate 95 H 95 H 97 H Pulse Rate [ From Monitor] Respiratory 29 H 30 H 30 H Rate Blood Pressure 146/97 156/93 159/94 O2 Sat by Pulse 97 96 97 Oximetry 10/19/21 10/19/21 10/19/21 06:00 06:30 07:00 Temperature Pulse Rate 95 H 96 H 93 H Pulse Rate [ From Monitor] Respiratory 32 H 35 H 31 H Rate Blood Pressure 154/89 158/94 155/87 O2 Sat by Pulse 97 98 97 Oximetry 10/19/21 10/19/21 10/19/21 07:30 08:00 08:30 Temperature 99.8 F H Pulse Rate 102 H 103 H 100 H Pulse Rate [ 102 H From Monitor] Respiratory 29 H 30 H 34 H Rate Blood Pressure 159/96 155/90 156/84 O2 Sat by Pulse 94 95 97 Oximetry 10/19/21 10/19/21 10/19/21 09:00 09:30 10:00 Temperature Pulse Rate 97 H 97 H 101 H Pulse Rate [ From Monitor] Respiratory 33 H 35 H 35 H Rate Blood Pressure 152/87 146/83 159/101 O2 Sat by Pulse 97 98 98 Oximetry 10/19/21 10/19/21 10/19/21 10:30 11:00 11:30 Temperature Pulse Rate 94 H 96 H 101 H Pulse Rate [ From Monitor] Respiratory 37 H 39 H 28 H Rate Blood Pressure 153/84 158/90 161/94 O2 Sat by Pulse 98 97 98 Oximetry 10/19/21 10/19/21 10/19/21 12:00 12:30 13:00 Temperature 98.5 F Pulse Rate 93 H 101 H 97 H Pulse Rate [ 102 H From Monitor] Respiratory 32 H 28 H 21 Rate Blood Pressure 167/94 177/87 152/92 O2 Sat by Pulse 95 96 98 Oximetry 10/19/21 10/19/21 13:30 14:00 Temperature Pulse Rate 96 H 94 H Pulse Rate [ From Monitor] Respiratory 28 H 33 H Rate Blood Pressure 145/79 153/86 O2 Sat by Pulse 98 97 Oximetry Constitutional: no acute distress, alert, other Eyes: non-icteric ENT: oropharynx moist Neck: supple, other (RIJCVL) Effort: normal Ascultation: Bilateral: diminished breath sounds, rhonchi Percussion: Bilateral: not dull Cardiovascular: regular rate and rhythm, other (S1,S2) Gastrointestinal: hypoactive bowel sounds, other (YURIDIA drains, anterior abdominal dressings, Doss catheter) Integumentary: other (tatooed) Extremities: cool, edema Neurologic: normal mental status, non-focal exam, pupils equal and round, motor strength normal and Psychiatric: mood appropriate, affect normal CBC and BMP: 10/19/21 04:23 10/19/21 04:23 ABG, PT/INR, D-dimer: ABG ABG pH 7.466 pH Units (7.350-7.450) H 10/18/21 11:34 ABG pCO2 41.1 mm Hg 10/18/21 11:34 ABG pO2 90.6 mm Hg (80.0-90.0) H 10/18/21 11:34 ABG O2 Saturation 97.3 % (95.0-99.0) 10/18/21 11:34 PT/INR, D-dimer PT 19.0 Sec. (12.2-14.9) H 10/14/21 04:05 INR 1.41 (0.87-1.13) H 10/14/21 04:05 D-Dimer > 42174 ng/mlDDU (0-234) H 10/09/21 08:45 Abnormal lab findings: Abnormal Labs 09/24/21 09/24/21 09/24/21 14:49 14:58 14:58 WBC 32.4 H RBC Hgb Hct MCH RDW Plt Count 535 H [place] # (Auto) Seg Neutrophils % Seg Neuts % (Manual) 82.0 H Lymphocytes % (Manual) 2.0 L Monocytes % (Manual) Nucleated RBC % Seg Neutrophils # Seg Neutrophils # Man 26.6 H Lymphocytes # (Manual) 0.6 L Monocytes # (Manual) 1.6 H PT INR D-Dimer ABG pH ABG pO2 ABG HCO3 ABG O2 Saturation ABG Base Excess ABG Hemoglobin Oxyhemoglobin Sodium 134 L Potassium 3.5 L Chloride 97.6 L Carbon Dioxide BUN Creatinine Glucose 119 H POC Glucose Lactic Acid Calcium Phosphorus Magnesium Ferritin ALT Lactate Dehydrogenase Total Creatine Kinase C-Reactive Protein Total Protein 6.1 L Albumin 3.3 L Urine Blood Urine WBC (Auto) U Epithel Cells (Auto) 18.0 H Crossmatch 09/25/21 09/25/21 09/26/21 05:47 05:47 04:20 WBC 25.4 H 23.6 H RBC 3.54 L Hgb Hct MCH RDW Plt Count 466 H 486 H [place] # (Auto) Seg Neutrophils % Seg Neuts % (Manual) 93.0 H 86.0 H Lymphocytes % (Manual) 4.0 L 3.0 L Monocytes % (Manual) Nucleated RBC % Seg Neutrophils # Seg Neutrophils # Man 23.6 H 20.3 H Lymphocytes # (Manual) 1.0 L 0.7 L Monocytes # (Manual) 0.9 H PT INR D-Dimer ABG pH ABG pO2 ABG HCO3 ABG O2 Saturation ABG Base Excess ABG Hemoglobin Oxyhemoglobin Sodium 136 L Potassium 3.0 L Chloride Carbon Dioxide 21 L BUN Creatinine Glucose POC Glucose Lactic Acid Calcium 7.8 L Phosphorus Magnesium Ferritin ALT Lactate Dehydrogenase Total Creatine Kinase C-Reactive Protein Total Protein Albumin Urine Blood Urine WBC (Auto) U Epithel Cells (Auto) Crossmatch 09/26/21 09/27/21 09/27/21 04:20 08:28 08:28 WBC 20.6 H RBC 3.42 L Hgb 9.9 L Hct 29.5 L D MCH RDW Plt Count [place] # (Auto) Seg Neutrophils % Seg Neuts % (Manual) 94.1 H Lymphocytes % (Manual) 1.0 L Monocytes % (Manual) Nucleated RBC % Seg Neutrophils # Seg Neutrophils # Man 19.4 H Lymphocytes # (Manual) 0.2 L Monocytes # (Manual) PT INR D-Dimer ABG pH ABG pO2 ABG HCO3 ABG O2 Saturation ABG Base Excess ABG Hemoglobin Oxyhemoglobin Sodium Potassium 3.2 L Chloride Carbon Dioxide 20 L BUN Creatinine Glucose 137 H POC Glucose Lactic Acid Calcium 8.3 L 8.2 L Phosphorus Magnesium Ferritin ALT Lactate Dehydrogenase Total Creatine Kinase C-Reactive Protein Total Protein Albumin Urine Blood Urine WBC (Auto) U Epithel Cells (Auto) Crossmatch 09/28/21 09/28/21 09/29/21 04:55 15:35 07:02 WBC 15.1 H 16.5 H RBC 3.34 L 3.20 L Hgb 9.3 L 9.1 L Hct 28.7 L 27.3 L MCH RDW 15.3 H Plt Count 444 H 469 H [place] # (Auto) 0.9 H Seg Neutrophils % 89.3 H Seg Neuts % (Manual) 88.0 H 80.0 H Lymphocytes % (Manual) 9.0 L 8.0 L Monocytes % (Manual) Nucleated RBC % Seg Neutrophils # 14.0 H Seg Neutrophils # Man 13.3 H 13.2 H Lymphocytes # (Manual) Monocytes # (Manual) PT INR D-Dimer ABG pH ABG pO2 ABG HCO3 ABG O2 Saturation ABG Base Excess ABG Hemoglobin Oxyhemoglobin Sodium Potassium 3.3 L Chloride 109.4 H Carbon Dioxide 20 L BUN Creatinine 0.5 L Glucose POC Glucose Lactic Acid Calcium 7.9 L Phosphorus Magnesium Ferritin ALT Lactate Dehydrogenase Total Creatine Kinase C-Reactive Protein Total Protein Albumin Urine Blood Urine WBC (Auto) U Epithel Cells (Auto) Crossmatch 09/30/21 09/30/21 10/01/21 05:40 05:40 07:49 WBC 17.4 H 17.9 H RBC 3.37 L 3.32 L Hgb 9.2 L 9.3 L Hct 28.4 L 28.3 L MCH 27 L RDW 15.4 H 15.5 H Plt Count 530 H 604 H [place] # (Auto) Seg Neutrophils % Seg Neuts % (Manual) 91.0 H 72.0 H Lymphocytes % (Manual) 9.0 L 1.0 L Monocytes % (Manual) 8.0 H Nucleated RBC % 1.0 H Seg Neutrophils # Seg Neutrophils # Man 15.8 H 12.9 H Lymphocytes # (Manual) 0.2 L Monocytes # (Manual) 1.4 H PT INR D-Dimer ABG pH ABG pO2 ABG HCO3 ABG O2 Saturation ABG Base Excess ABG Hemoglobin Oxyhemoglobin Sodium Potassium 3.5 L Chloride Carbon Dioxide 21 L BUN Creatinine 0.5 L Glucose POC Glucose Lactic Acid Calcium 8.0 L Phosphorus Magnesium Ferritin ALT Lactate Dehydrogenase Total Creatine Kinase C-Reactive Protein Total Protein Albumin Urine Blood Urine WBC (Auto) U Epithel Cells (Auto) Crossmatch 10/01/21 10/01/21 10/02/21 07:49 10:45 05:41 WBC 23.2 H RBC 2.90 L Hgb 7.9 L Hct 24.8 L MCH 27 L RDW 15.3 H Plt Count 621 H [place] # (Auto) Seg Neutrophils % Seg Neuts % (Manual) 88.0 H Lymphocytes % (Manual) 2.0 L Monocytes % (Manual) Nucleated RBC % Seg Neutrophils # Seg Neutrophils # Man 20.4 H Lymphocytes # (Manual) 0.5 L Monocytes # (Manual) 1.4 H PT INR D-Dimer ABG pH ABG pO2 ABG HCO3 ABG O2 Saturation ABG Base Excess ABG Hemoglobin Oxyhemoglobin Sodium Potassium Chloride Carbon Dioxide 20 L BUN Creatinine 0.5 L Glucose POC Glucose Lactic Acid Calcium 7.6 L Phosphorus Magnesium Ferritin ALT Lactate Dehydrogenase Total Creatine Kinase C-Reactive Protein Total Protein Albumin Urine Blood Urine WBC (Auto) U Epithel Cells (Auto) Crossmatch See Detail 10/02/21 10/02/21 10/02/21 05:41 07:47 11:10 WBC RBC Hgb Hct MCH RDW Plt Count [place] # (Auto) Seg Neutrophils % Seg Neuts % (Manual) Lymphocytes % (Manual) Monocytes % (Manual) Nucleated RBC % Seg Neutrophils # Seg Neutrophils # Man Lymphocytes # (Manual) Monocytes # (Manual) PT INR D-Dimer ABG pH ABG pO2 ABG HCO3 ABG O2 Saturation ABG Base Excess ABG Hemoglobin Oxyhemoglobin Sodium Potassium Chloride Carbon Dioxide BUN Creatinine Glucose 130 H POC Glucose 145 H 120 H Lactic Acid Calcium 6.9 L Phosphorus Magnesium Ferritin ALT Lactate Dehydrogenase Total Creatine Kinase C-Reactive Protein Total Protein Albumin Urine Blood Urine WBC (Auto) U Epithel Cells (Auto) Crossmatch 10/02/21 10/03/21 10/03/21 16:14 04:55 04:55 WBC 26.1 H RBC 2.31 L Hgb 6.3 L Hct 19.8 L* MCH RDW 15.9 H Plt Count 598 H [place] # (Auto) Seg Neutrophils % Seg Neuts % (Manual) 82.0 H Lymphocytes % (Manual) 1.0 L Monocytes % (Manual) 10.0 H Nucleated RBC % Seg Neutrophils # Seg Neutrophils # Man 21.4 H Lymphocytes # (Manual) 0.3 L Monocytes # (Manual) 2.6 H PT INR D-Dimer ABG pH ABG pO2 ABG HCO3 ABG O2 Saturation ABG Base Excess ABG Hemoglobin Oxyhemoglobin Sodium Potassium Chloride Carbon Dioxide BUN 22 H Creatinine 1.7 H D Glucose 145 H POC Glucose 109 H Lactic Acid Calcium 6.4 L Phosphorus Magnesium 2.40 H Ferritin ALT Lactate Dehydrogenase Total Creatine Kinase C-Reactive Protein Total Protein 4.2 L Albumin 1.6 L Urine Blood Urine WBC (Auto) U Epithel Cells (Auto) Crossmatch 10/03/21 10/03/21 10/03/21 07:15 11:49 17:06 WBC RBC Hgb Hct MCH RDW Plt Count [place] # (Auto) Seg Neutrophils % Seg Neuts % (Manual) Lymphocytes % (Manual) Monocytes % (Manual) Nucleated RBC % Seg Neutrophils # Seg Neutrophils # Man Lymphocytes # (Manual) Monocytes # (Manual) PT INR D-Dimer ABG pH ABG pO2 ABG HCO3 ABG O2 Saturation ABG Base Excess ABG Hemoglobin Oxyhemoglobin Sodium Potassium Chloride Carbon Dioxide BUN Creatinine Glucose POC Glucose 162 H 171 H 174 H Lactic Acid Calcium Phosphorus Magnesium Ferritin ALT Lactate Dehydrogenase Total Creatine Kinase C-Reactive Protein Total Protein Albumin Urine Blood Urine WBC (Auto) U Epithel Cells (Auto) Crossmatch 10/03/21 10/04/21 10/04/21 23:31 04:44 04:44 WBC 26.4 H RBC 2.33 L Hgb 6.6 L Hct 19.4 L* MCH RDW 16.1 H Plt Count 602 H [place] # (Auto) Seg Neutrophils % Seg Neuts % (Manual) 80.0 H Lymphocytes % (Manual) 5.0 L Monocytes % (Manual) Nucleated RBC % Seg Neutrophils # Seg Neutrophils # Man 21.1 H Lymphocytes # (Manual) Monocytes # (Manual) 1.8 H PT INR D-Dimer ABG pH ABG pO2 ABG HCO3 ABG O2 Saturation ABG Base Excess ABG Hemoglobin Oxyhemoglobin Sodium 135 L Potassium 3.4 L Chloride Carbon Dioxide 21 L BUN 28 H Creatinine 2.0 H Glucose 171 H POC Glucose 179 H Lactic Acid Calcium 6.7 L Phosphorus 1.30 L D Magnesium 2.40 H Ferritin ALT Lactate Dehydrogenase Total Creatine Kinase C-Reactive Protein Total Protein Albumin Urine Blood Urine WBC (Auto) U Epithel Cells (Auto) Crossmatch 02/10/04/21 10/04/21 05:25 12:01 13:30 WBC RBC Hgb Hct MCH RDW Plt Count [place] # (Auto) Seg Neutrophils % Seg Neuts % (Manual) Lymphocytes % (Manual) Monocytes % (Manual) Nucleated RBC % Seg Neutrophils # Seg Neutrophils # Man Lymphocytes # (Manual) Monocytes # (Manual) PT INR D-Dimer ABG pH ABG pO2 ABG HCO3 ABG O2 Saturation ABG Base Excess ABG Hemoglobin Oxyhemoglobin Sodium Potassium Chloride Carbon Dioxide BUN Creatinine Glucose POC Glucose 174 H 172 H Lactic Acid Calcium Phosphorus Magnesium Ferritin ALT Lactate Dehydrogenase Total Creatine Kinase C-Reactive Protein Total Protein Albumin Urine Blood Urine WBC (Auto) U Epithel Cells (Auto) Crossmatch See Detail 10/04/21 10/04/21 10/04/21 16:47 20:28 22:23 WBC RBC Hgb 8.5 L Hct 25.1 L MCH RDW Plt Count [place] # (Auto) Seg Neutrophils % Seg Neuts % (Manual) Lymphocytes % (Manual) Monocytes % (Manual) Nucleated RBC % Seg Neutrophils # Seg Neutrophils # Man Lymphocytes # (Manual) Monocytes # (Manual) PT INR D-Dimer ABG pH ABG pO2 ABG HCO3 ABG O2 Saturation ABG Base Excess ABG Hemoglobin Oxyhemoglobin Sodium Potassium Chloride Carbon Dioxide BUN Creatinine Glucose POC Glucose 135 H 152 H Lactic Acid Calcium Phosphorus Magnesium Ferritin ALT Lactate Dehydrogenase Total Creatine Kinase C-Reactive Protein Total Protein Albumin Urine Blood Urine WBC (Auto) U Epithel Cells (Auto) Crossmatch 10/05/21 10/05/21 10/05/21 04:40 04:40 04:40 WBC 24.7 H RBC 3.02 L Hgb 8.4 L Hct 25.5 L MCH RDW 16.2 H Plt Count 644 H [place] # (Auto) Seg Neutrophils % Seg Neuts % (Manual) 91.0 H Lymphocytes % (Manual) 7.0 L Monocytes % (Manual) Nucleated RBC % Seg Neutrophils # Seg Neutrophils # Man 22.5 H Lymphocytes # (Manual) Monocytes # (Manual) PT 17.8 H INR 1.31 H D-Dimer ABG pH ABG pO2 ABG HCO3 ABG O2 Saturation ABG Base Excess ABG Hemoglobin Oxyhemoglobin Sodium 135 L Potassium Chloride Carbon Dioxide BUN 29 H Creatinine 2.1 H Glucose 156 H POC Glucose Lactic Acid Calcium 7.6 L Phosphorus 1.90 L D Magnesium Ferritin ALT Lactate Dehydrogenase Total Creatine Kinase C-Reactive Protein Total Protein 5.2 L D Albumin 1.8 L Urine Blood Urine WBC (Auto) U Epithel Cells (Auto) Crossmatch 10/05/21 10/05/21 10/05/21 05:08 18:17 23:37 WBC RBC Hgb Hct MCH RDW Plt Count [place] # (Auto) Seg Neutrophils % Seg Neuts % (Manual) Lymphocytes % (Manual) Monocytes % (Manual) Nucleated RBC % Seg Neutrophils # Seg Neutrophils # Man Lymphocytes # (Manual) Monocytes # (Manual) PT INR D-Dimer ABG pH ABG pO2 ABG HCO3 ABG O2 Saturation ABG Base Excess ABG Hemoglobin Oxyhemoglobin Sodium Potassium Chloride Carbon Dioxide BUN Creatinine Glucose POC Glucose 156 H 119 H 130 H Lactic Acid Calcium Phosphorus Magnesium Ferritin ALT Lactate Dehydrogenase Total Creatine Kinase C-Reactive Protein Total Protein Albumin Urine Blood Urine WBC (Auto) U Epithel Cells (Auto) Crossmatch 10/06/21 10/06/21 10/06/21 04:27 05:27 05:27 WBC 23.4 H RBC 2.84 L Hgb 7.8 L Hct 23.9 L MCH RDW 16.2 H Plt Count 712 H [place] # (Auto) Seg Neutrophils % Seg Neuts % (Manual) Lymphocytes % (Manual) Monocytes % (Manual) Nucleated RBC % Seg Neutrophils # Seg Neutrophils # Man Lymphocytes # (Manual) Monocytes # (Manual) PT INR D-Dimer ABG pH ABG pO2 ABG HCO3 ABG O2 Saturation ABG Base Excess ABG Hemoglobin Oxyhemoglobin Sodium 134 L Potassium Chloride Carbon Dioxide 20 L BUN 28 H Creatinine 1.9 H Glucose 132 H POC Glucose 132 H Lactic Acid Calcium 7.8 L Phosphorus Magnesium Ferritin ALT Lactate Dehydrogenase Total Creatine Kinase 242 H C-Reactive Protein Total Protein Albumin Urine Blood Urine WBC (Auto) U Epithel Cells (Auto) Crossmatch 10/06/21 10/06/21 10/06/21 16:40 20:50 23:39 WBC RBC Hgb Hct MCH RDW Plt Count [place] # (Auto) Seg Neutrophils % Seg Neuts % (Manual) Lymphocytes % (Manual) Monocytes % (Manual) Nucleated RBC % Seg Neutrophils # Seg Neutrophils # Man Lymphocytes # (Manual) Monocytes # (Manual) PT INR D-Dimer ABG pH ABG pO2 ABG HCO3 ABG O2 Saturation ABG Base Excess ABG Hemoglobin Oxyhemoglobin Sodium Potassium Chloride Carbon Dioxide BUN Creatinine Glucose POC Glucose 133 H 116 H 132 H Lactic Acid Calcium Phosphorus Magnesium Ferritin ALT Lactate Dehydrogenase Total Creatine Kinase C-Reactive Protein Total Protein Albumin Urine Blood Urine WBC (Auto) U Epithel Cells (Auto) Crossmatch 10/07/21 10/07/21 10/07/21 05:09 05:13 09:43 WBC 22.3 H RBC 2.81 L Hgb 7.8 L Hct 24.0 L MCH RDW 16.5 H Plt Count 733 H [place] # (Auto) Seg Neutrophils % Seg Neuts % (Manual) 85.0 H Lymphocytes % (Manual) 1.0 L Monocytes % (Manual) Nucleated RBC % Seg Neutrophils # Seg Neutrophils # Man 19.0 H Lymphocytes # (Manual) 0.2 L Monocytes # (Manual) 1.6 H PT INR D-Dimer ABG pH ABG pO2 ABG HCO3 ABG O2 Saturation ABG Base Excess ABG Hemoglobin Oxyhemoglobin Sodium 136 L Potassium Chloride Carbon Dioxide 20 L BUN 29 H Creatinine 1.9 H Glucose 140 H POC Glucose 139 H Lactic Acid Calcium 7.6 L Phosphorus Magnesium Ferritin ALT Lactate Dehydrogenase Total Creatine Kinase C-Reactive Protein Total Protein Albumin Urine Blood Urine WBC (Auto) U Epithel Cells (Auto) Crossmatch 10/07/21 10/07/21 10/08/21 11:38 17:44 00:20 WBC RBC Hgb Hct MCH RDW Plt Count [place] # (Auto) Seg Neutrophils % Seg Neuts % (Manual) Lymphocytes % (Manual) Monocytes % (Manual) Nucleated RBC % Seg Neutrophils # Seg Neutrophils # Man Lymphocytes # (Manual) Monocytes # (Manual) PT INR D-Dimer ABG pH ABG pO2 ABG HCO3 ABG O2 Saturation ABG Base Excess ABG Hemoglobin Oxyhemoglobin Sodium Potassium Chloride Carbon Dioxide BUN Creatinine Glucose POC Glucose 126 H 113 H 129 H Lactic Acid Calcium Phosphorus Magnesium Ferritin ALT Lactate Dehydrogenase Total Creatine Kinase C-Reactive Protein Total Protein Albumin Urine Blood Urine WBC (Auto) U Epithel Cells (Auto) Crossmatch 10/08/21 10/08/21 10/08/21 05:26 05:26 05:29 WBC 21.8 H RBC 2.84 L Hgb 7.8 L Hct 24.1 L MCH 27 L RDW 16.5 H Plt Count 789 H [place] # (Auto) Seg Neutrophils % Seg Neuts % (Manual) Lymphocytes % (Manual) Monocytes % (Manual) Nucleated RBC % Seg Neutrophils # Seg Neutrophils # Man Lymphocytes # (Manual) Monocytes # (Manual) PT INR D-Dimer ABG pH ABG pO2 ABG HCO3 ABG O2 Saturation ABG Base Excess ABG Hemoglobin Oxyhemoglobin Sodium 136 L Potassium Chloride Carbon Dioxide 20 L BUN 31 H Creatinine 1.7 H Glucose 134 H POC Glucose 123 H Lactic Acid Calcium 7.9 L Phosphorus 4.60 H D Magnesium Ferritin ALT Lactate Dehydrogenase Total Creatine Kinase C-Reactive Protein Total Protein Albumin Urine Blood Urine WBC (Auto) U Epithel Cells (Auto) Crossmatch 10/08/21 10/08/21 10/08/21 11:53 17:07 20:08 WBC RBC Hgb Hct MCH RDW Plt Count [place] # (Auto) Seg Neutrophils % Seg Neuts % (Manual) Lymphocytes % (Manual) Monocytes % (Manual) Nucleated RBC % Seg Neutrophils # Seg Neutrophils # Man Lymphocytes # (Manual) Monocytes # (Manual) PT INR D-Dimer ABG pH 7.308 L ABG pO2 40.2 L ABG HCO3 15.7 L ABG O2 Saturation 68 L ABG Base Excess -9.6 L ABG Hemoglobin 9.7 L Oxyhemoglobin 67.8 L Sodium Potassium Chloride Carbon Dioxide BUN Creatinine Glucose POC Glucose 128 H 139 H Lactic Acid Calcium Phosphorus Magnesium Ferritin ALT Lactate Dehydrogenase Total Creatine Kinase C-Reactive Protein Total Protein Albumin Urine Blood Urine WBC (Auto) U Epithel Cells (Auto) Crossmatch 10/08/21 10/08/21 10/08/21 21:30 22:55 22:55 WBC RBC Hgb Hct MCH RDW Plt Count [place] # (Auto) Seg Neutrophils % Seg Neuts % (Manual) Lymphocytes % (Manual) Monocytes % (Manual) Nucleated RBC % Seg Neutrophils # Seg Neutrophils # Man Lymphocytes # (Manual) Monocytes # (Manual) PT INR D-Dimer ABG pH ABG pO2 43.8 L ABG HCO3 19.5 L ABG O2 Saturation 70.7 L ABG Base Excess -5.3 L ABG Hemoglobin 8.6 L Oxyhemoglobin 69.4 L Sodium Potassium Chloride Carbon Dioxide BUN Creatinine Glucose POC Glucose Lactic Acid 2.50 H* Calcium Phosphorus Magnesium Ferritin ALT Lactate Dehydrogenase Total Creatine Kinase C-Reactive Protein Total Protein Albumin Urine Blood Urine WBC (Auto) U Epithel Cells (Auto) Crossmatch See Detail 10/09/21 10/09/21 10/09/21 03:12 05:31 05:31 WBC 20.3 H RBC 2.70 L Hgb 7.4 L Hct 23.1 L MCH 27 L RDW 16.6 H Plt Count 786 H [place] # (Auto) Seg Neutrophils % Seg Neuts % (Manual) 88.0 H Lymphocytes % (Manual) 3.0 L Monocytes % (Manual) Nucleated RBC % Seg Neutrophils # Seg Neutrophils # Man 17.9 H Lymphocytes # (Manual) 0.6 L Monocytes # (Manual) 1.2 H PT INR D-Dimer ABG pH ABG pO2 ABG HCO3 ABG O2 Saturation ABG Base Excess ABG Hemoglobin Oxyhemoglobin Sodium 136 L Potassium Chloride Carbon Dioxide 20 L BUN 32 H Creatinine 1.5 H Glucose 214 H POC Glucose 190 H Lactic Acid Calcium 7.5 L Phosphorus Magnesium Ferritin ALT Lactate Dehydrogenase Total Creatine Kinase C-Reactive Protein Total Protein 5.8 L Albumin 2.3 L Urine Blood Urine WBC (Auto) U Epithel Cells (Auto) Crossmatch 10/09/21 10/09/21 10/09/21 05:31 05:31 05:31 WBC RBC Hgb Hct MCH RDW Plt Count [place] # (Auto) Seg Neutrophils % Seg Neuts % (Manual) Lymphocytes % (Manual) Monocytes % (Manual) Nucleated RBC % Seg Neutrophils # Seg Neutrophils # Man Lymphocytes # (Manual) Monocytes # (Manual) PT INR D-Dimer ABG pH ABG pO2 ABG HCO3 ABG O2 Saturation ABG Base Excess ABG Hemoglobin Oxyhemoglobin Sodium Potassium Chloride Carbon Dioxide BUN Creatinine Glucose POC Glucose Lactic Acid 2.20 H* Calcium Phosphorus Magnesium Ferritin 751.9 H ALT Lactate Dehydrogenase Total Creatine Kinase C-Reactive Protein 15.90 H Total Protein Albumin Urine Blood Urine WBC (Auto) U Epithel Cells (Auto) Crossmatch 10/09/21 10/09/21 10/09/21 05:31 08:45 12:08 WBC RBC Hgb Hct MCH RDW Plt Count [place] # (Auto) Seg Neutrophils % Seg Neuts % (Manual) Lymphocytes % (Manual) Monocytes % (Manual) Nucleated RBC % Seg Neutrophils # Seg Neutrophils # Man Lymphocytes # (Manual) Monocytes # (Manual) PT INR D-Dimer > 00825 H ABG pH ABG pO2 54.3 L ABG HCO3 ABG O2 Saturation 86.6 L ABG Base Excess -2.6 L ABG Hemoglobin 7.2 L Oxyhemoglobin 85.3 L Sodium Potassium Chloride Carbon Dioxide BUN Creatinine Glucose POC Glucose Lactic Acid Calcium Phosphorus Magnesium Ferritin ALT Lactate Dehydrogenase 472 H Total Creatine Kinase C-Reactive Protein Total Protein Albumin Urine Blood Urine WBC (Auto) U Epithel Cells (Auto) Crossmatch 10/09/21 10/09/21 10/10/21 12:19 17:43 00:30 WBC RBC Hgb Hct MCH RDW Plt Count [place] # (Auto) Seg Neutrophils % Seg Neuts % (Manual) Lymphocytes % (Manual) Monocytes % (Manual) Nucleated RBC % Seg Neutrophils # Seg Neutrophils # Man Lymphocytes # (Manual) Monocytes # (Manual) PT INR D-Dimer ABG pH ABG pO2 ABG HCO3 ABG O2 Saturation ABG Base Excess ABG Hemoglobin Oxyhemoglobin Sodium Potassium Chloride Carbon Dioxide BUN Creatinine Glucose POC Glucose 151 H 136 H 132 H Lactic Acid Calcium Phosphorus Magnesium Ferritin ALT Lactate Dehydrogenase Total Creatine Kinase C-Reactive Protein Total Protein Albumin Urine Blood Urine WBC (Auto) U Epithel Cells (Auto) Crossmatch 10/10/21 10/10/21 10/10/21 04:10 04:10 05:41 WBC 20.8 H RBC 2.54 L Hgb 7.1 L Hct 21.8 L MCH RDW 16.6 H Plt Count 740 H [place] # (Auto) Seg Neutrophils % Seg Neuts % (Manual) Lymphocytes % (Manual) Monocytes % (Manual) Nucleated RBC % Seg Neutrophils # Seg Neutrophils # Man Lymphocytes # (Manual) Monocytes # (Manual) PT INR D-Dimer ABG pH ABG pO2 ABG HCO3 ABG O2 Saturation ABG Base Excess ABG Hemoglobin Oxyhemoglobin Sodium 130 L Potassium Chloride 97.9 L Carbon Dioxide 19 L BUN 37 H Creatinine 1.4 H Glucose 181 H POC Glucose 150 H Lactic Acid Calcium 7.8 L Phosphorus Magnesium Ferritin ALT Lactate Dehydrogenase Total Creatine Kinase C-Reactive Protein Total Protein Albumin Urine Blood Urine WBC (Auto) U Epithel Cells (Auto) Crossmatch 10/10/21 10/10/21 10/10/21 11:10 16:00 23:50 WBC RBC Hgb Hct MCH RDW Plt Count [place] # (Auto) Seg Neutrophils % Seg Neuts % (Manual) Lymphocytes % (Manual) Monocytes % (Manual) Nucleated RBC % Seg Neutrophils # Seg Neutrophils # Man Lymphocytes # (Manual) Monocytes # (Manual) PT INR D-Dimer ABG pH ABG pO2 ABG HCO3 ABG O2 Saturation ABG Base Excess ABG Hemoglobin Oxyhemoglobin Sodium Potassium Chloride Carbon Dioxide BUN Creatinine Glucose POC Glucose 136 H 151 H 129 H Lactic Acid Calcium Phosphorus Magnesium Ferritin ALT Lactate Dehydrogenase Total Creatine Kinase C-Reactive Protein Total Protein Albumin Urine Blood Urine WBC (Auto) U Epithel Cells (Auto) Crossmatch 10/10/21 10/11/21 10/11/21 Unknown 03:30 03:30 WBC 23.2 H RBC 2.39 L Hgb 6.7 L Hct 20.3 L MCH RDW 16.7 H Plt Count 701 H [place] # (Auto) Seg Neutrophils % Seg Neuts % (Manual) Lymphocytes % (Manual) Monocytes % (Manual) Nucleated RBC % Seg Neutrophils # Seg Neutrophils # Man Lymphocytes # (Manual) Monocytes # (Manual) PT INR D-Dimer ABG pH 7.505 H ABG pO2 246.1 H ABG HCO3 ABG O2 Saturation 99.4 H ABG Base Excess ABG Hemoglobin 6.0 L Oxyhemoglobin Sodium 135 L Potassium Chloride Carbon Dioxide 20 L BUN 38 H Creatinine 1.6 H Glucose 118 H POC Glucose Lactic Acid Calcium 7.9 L Phosphorus Magnesium Ferritin ALT Lactate Dehydrogenase Total Creatine Kinase C-Reactive Protein Total Protein Albumin Urine Blood Urine WBC (Auto) U Epithel Cells (Auto) Crossmatch 10/11/21 10/11/21 10/12/21 11:41 17:51 00:18 WBC RBC Hgb Hct MCH RDW Plt Count [place] # (Auto) Seg Neutrophils % Seg Neuts % (Manual) Lymphocytes % (Manual) Monocytes % (Manual) Nucleated RBC % Seg Neutrophils # Seg Neutrophils # Man Lymphocytes # (Manual) Monocytes # (Manual) PT INR D-Dimer ABG pH ABG pO2 ABG HCO3 ABG O2 Saturation ABG Base Excess ABG Hemoglobin Oxyhemoglobin Sodium Potassium Chloride Carbon Dioxide BUN Creatinine Glucose POC Glucose 128 H 138 H 174 H Lactic Acid Calcium Phosphorus Magnesium Ferritin ALT Lactate Dehydrogenase Total Creatine Kinase C-Reactive Protein Total Protein Albumin Urine Blood Urine WBC (Auto) U Epithel Cells (Auto) Crossmatch 10/12/21 10/12/21 10/12/21 05:39 06:02 06:02 WBC 19.1 H RBC 3.56 L Hgb 10.0 L D Hct MCH RDW 17.0 H Plt Count 712 H [place] # (Auto) Seg Neutrophils % Seg Neuts % (Manual) Lymphocytes % (Manual) Monocytes % (Manual) Nucleated RBC % Seg Neutrophils # Seg Neutrophils # Man Lymphocytes # (Manual) Monocytes # (Manual) PT INR D-Dimer ABG pH ABG pO2 ABG HCO3 ABG O2 Saturation ABG Base Excess ABG Hemoglobin Oxyhemoglobin Sodium Potassium Chloride Carbon Dioxide BUN 37 H Creatinine 1.5 H Glucose 172 H POC Glucose 158 H Lactic Acid Calcium 8.1 L Phosphorus Magnesium Ferritin ALT Lactate Dehydrogenase Total Creatine Kinase C-Reactive Protein Total Protein Albumin Urine Blood Urine WBC (Auto) U Epithel Cells (Auto) Crossmatch 10/12/21 10/12/21 10/12/21 06:02 06:05 17:43 WBC RBC Hgb Hct MCH RDW Plt Count [place] # (Auto) Seg Neutrophils % Seg Neuts % (Manual) Lymphocytes % (Manual) Monocytes % (Manual) Nucleated RBC % Seg Neutrophils # Seg Neutrophils # Man Lymphocytes # (Manual) Monocytes # (Manual) PT 17.1 H INR 1.24 H D-Dimer ABG pH ABG pO2 ABG HCO3 ABG O2 Saturation ABG Base Excess ABG Hemoglobin Oxyhemoglobin Sodium Potassium Chloride Carbon Dioxide BUN Creatinine Glucose POC Glucose 173 H Lactic Acid Calcium Phosphorus Magnesium Ferritin ALT Lactate Dehydrogenase Total Creatine Kinase C-Reactive Protein Total Protein Albumin Urine Blood Urine WBC (Auto) U Epithel Cells (Auto) Crossmatch See Detail 10/12/21 10/12/21 10/13/21 23:28 Unknown 04:05 WBC RBC Hgb 10.0 L Hct MCH RDW Plt Count [place] # (Auto) Seg Neutrophils % Seg Neuts % (Manual) Lymphocytes % (Manual) Monocytes % (Manual) Nucleated RBC % Seg Neutrophils # Seg Neutrophils # Man Lymphocytes # (Manual) Monocytes # (Manual) PT INR D-Dimer ABG pH ABG pO2 ABG HCO3 ABG O2 Saturation ABG Base Excess ABG Hemoglobin Oxyhemoglobin Sodium Potassium Chloride Carbon Dioxide BUN 34 H Creatinine Glucose 200 H POC Glucose 178 H Lactic Acid Calcium 7.5 L Phosphorus Magnesium 1.60 L Ferritin ALT Lactate Dehydrogenase Total Creatine Kinase C-Reactive Protein Total Protein Albumin Urine Blood Urine WBC (Auto) U Epithel Cells (Auto) Crossmatch 10/13/21 10/13/21 10/13/21 05:09 10:55 13:34 WBC 23.8 H RBC 3.14 L Hgb 9.2 L Hct 27.7 L MCH RDW 17.5 H Plt Count 572 H [place] # (Auto) Seg Neutrophils % Seg Neuts % (Manual) Lymphocytes % (Manual) Monocytes % (Manual) Nucleated RBC % Seg Neutrophils # Seg Neutrophils # Man Lymphocytes # (Manual) Monocytes # (Manual) PT INR D-Dimer ABG pH ABG pO2 ABG HCO3 ABG O2 Saturation ABG Base Excess ABG Hemoglobin Oxyhemoglobin Sodium Potassium Chloride Carbon Dioxide BUN Creatinine Glucose POC Glucose 210 H 168 H Lactic Acid Calcium Phosphorus Magnesium Ferritin ALT Lactate Dehydrogenase Total Creatine Kinase C-Reactive Protein Total Protein Albumin Urine Blood Urine WBC (Auto) U Epithel Cells (Auto) Crossmatch 10/13/21 10/13/21 10/14/21 15:35 23:10 04:05 WBC 19.4 H RBC 2.98 L Hgb 8.4 L Hct 26.3 L MCH RDW 17.1 H Plt Count 561 H [place] # (Auto) Seg Neutrophils % Seg Neuts % (Manual) Lymphocytes % (Manual) Monocytes % (Manual) Nucleated RBC % Seg Neutrophils # Seg Neutrophils # Man Lymphocytes # (Manual) Monocytes # (Manual) PT INR D-Dimer ABG pH ABG pO2 ABG HCO3 ABG O2 Saturation ABG Base Excess ABG Hemoglobin Oxyhemoglobin Sodium Potassium Chloride Carbon Dioxide BUN Creatinine Glucose POC Glucose 154 H 135 H Lactic Acid Calcium Phosphorus Magnesium Ferritin ALT Lactate Dehydrogenase Total Creatine Kinase C-Reactive Protein Total Protein Albumin Urine Blood Urine WBC (Auto) U Epithel Cells (Auto) Crossmatch 10/14/21 10/14/21 10/14/21 04:05 04:05 05:08 WBC RBC Hgb Hct MCH RDW Plt Count [place] # (Auto) Seg Neutrophils % Seg Neuts % (Manual) Lymphocytes % (Manual) Monocytes % (Manual) Nucleated RBC % Seg Neutrophils # Seg Neutrophils # Man Lymphocytes # (Manual) Monocytes # (Manual) PT 19.0 H INR 1.41 H D-Dimer ABG pH ABG pO2 ABG HCO3 ABG O2 Saturation ABG Base Excess ABG Hemoglobin Oxyhemoglobin Sodium Potassium Chloride Carbon Dioxide BUN 33 H Creatinine Glucose 310 H POC Glucose 178 H Lactic Acid Calcium 7.4 L Phosphorus Magnesium Ferritin ALT Lactate Dehydrogenase Total Creatine Kinase C-Reactive Protein Total Protein Albumin Urine Blood Urine WBC (Auto) U Epithel Cells (Auto) Crossmatch 10/14/21 10/14/21 10/14/21 09:29 10:45 11:40 WBC RBC Hgb Hct MCH RDW Plt Count [place] # (Auto) Seg Neutrophils % Seg Neuts % (Manual) Lymphocytes % (Manual) Monocytes % (Manual) Nucleated RBC % Seg Neutrophils # Seg Neutrophils # Man Lymphocytes # (Manual) Monocytes # (Manual) PT INR D-Dimer ABG pH 7.342 L ABG pO2 96.0 H ABG HCO3 26.2 H ABG O2 Saturation ABG Base Excess ABG Hemoglobin 6.1 L Oxyhemoglobin 94.9 L Sodium Potassium Chloride Carbon Dioxide BUN Creatinine Glucose POC Glucose 155 H 137 H Lactic Acid Calcium Phosphorus Magnesium Ferritin ALT Lactate Dehydrogenase Total Creatine Kinase C-Reactive Protein Total Protein Albumin Urine Blood Urine WBC (Auto) U Epithel Cells (Auto) Crossmatch 10/14/21 10/14/21 10/14/21 15:40 21:21 23:46 WBC RBC Hgb Hct MCH RDW Plt Count [place] # (Auto) Seg Neutrophils % Seg Neuts % (Manual) Lymphocytes % (Manual) Monocytes % (Manual) Nucleated RBC % Seg Neutrophils # Seg Neutrophils # Man Lymphocytes # (Manual) Monocytes # (Manual) PT INR D-Dimer ABG pH ABG pO2 ABG HCO3 ABG O2 Saturation ABG Base Excess ABG Hemoglobin Oxyhemoglobin Sodium Potassium Chloride Carbon Dioxide BUN Creatinine Glucose POC Glucose 140 H 111 H 164 H Lactic Acid Calcium Phosphorus Magnesium Ferritin ALT Lactate Dehydrogenase Total Creatine Kinase C-Reactive Protein Total Protein Albumin Urine Blood Urine WBC (Auto) U Epithel Cells (Auto) Crossmatch 10/15/21 10/15/21 10/15/21 05:06 05:40 05:40 WBC 22.7 H RBC 2.94 L Hgb 8.7 L Hct 25.8 L MCH RDW 17.2 H Plt Count 620 H [place] # (Auto) Seg Neutrophils % Seg Neuts % (Manual) Lymphocytes % (Manual) Monocytes % (Manual) Nucleated RBC % Seg Neutrophils # Seg Neutrophils # Man Lymphocytes # (Manual) Monocytes # (Manual) PT INR D-Dimer ABG pH ABG pO2 ABG HCO3 ABG O2 Saturation ABG Base Excess ABG Hemoglobin Oxyhemoglobin Sodium Potassium Chloride Carbon Dioxide BUN 30 H Creatinine Glucose 175 H POC Glucose 155 H Lactic Acid Calcium 7.4 L Phosphorus Magnesium Ferritin ALT Lactate Dehydrogenase Total Creatine Kinase C-Reactive Protein Total Protein Albumin Urine Blood Urine WBC (Auto) U Epithel Cells (Auto) Crossmatch 10/15/21 10/15/21 10/15/21 11:32 17:23 23:35 WBC RBC Hgb Hct MCH RDW Plt Count [place] # (Auto) Seg Neutrophils % Seg Neuts % (Manual) Lymphocytes % (Manual) Monocytes % (Manual) Nucleated RBC % Seg Neutrophils # Seg Neutrophils # Man Lymphocytes # (Manual) Monocytes # (Manual) PT INR D-Dimer ABG pH ABG pO2 ABG HCO3 ABG O2 Saturation ABG Base Excess ABG Hemoglobin Oxyhemoglobin Sodium Potassium Chloride Carbon Dioxide BUN Creatinine Glucose POC Glucose 157 H 136 H 143 H Lactic Acid Calcium Phosphorus Magnesium Ferritin ALT Lactate Dehydrogenase Total Creatine Kinase C-Reactive Protein Total Protein Albumin Urine Blood Urine WBC (Auto) U Epithel Cells (Auto) Crossmatch 10/16/21 10/16/21 10/16/21 04:00 04:00 05:08 WBC 18.0 H RBC 2.80 L Hgb 8.0 L Hct 24.7 L MCH RDW 17.4 H Plt Count 543 H [place] # (Auto) Seg Neutrophils % Seg Neuts % (Manual) Lymphocytes % (Manual) Monocytes % (Manual) Nucleated RBC % Seg Neutrophils # Seg Neutrophils # Man Lymphocytes # (Manual) Monocytes # (Manual) PT INR D-Dimer ABG pH ABG pO2 ABG HCO3 ABG O2 Saturation ABG Base Excess ABG Hemoglobin Oxyhemoglobin Sodium Potassium Chloride Carbon Dioxide BUN 31 H Creatinine Glucose 153 H POC Glucose 149 H Lactic Acid Calcium 8.0 L Phosphorus Magnesium Ferritin ALT Lactate Dehydrogenase Total Creatine Kinase C-Reactive Protein Total Protein 5.5 L Albumin 1.9 L Urine Blood Urine WBC (Auto) U Epithel Cells (Auto) Crossmatch 10/16/21 10/16/21 10/16/21 11:45 17:37 23:48 WBC RBC Hgb Hct MCH RDW Plt Count [place] # (Auto) Seg Neutrophils % Seg Neuts % (Manual) Lymphocytes % (Manual) Monocytes % (Manual) Nucleated RBC % Seg Neutrophils # Seg Neutrophils # Man Lymphocytes # (Manual) Monocytes # (Manual) PT INR D-Dimer ABG pH ABG pO2 ABG HCO3 ABG O2 Saturation ABG Base Excess ABG Hemoglobin Oxyhemoglobin Sodium Potassium Chloride Carbon Dioxide BUN Creatinine Glucose POC Glucose 144 H 130 H 134 H Lactic Acid Calcium Phosphorus Magnesium Ferritin ALT Lactate Dehydrogenase Total Creatine Kinase C-Reactive Protein Total Protein Albumin Urine Blood Urine WBC (Auto) U Epithel Cells (Auto) Crossmatch 10/17/21 10/17/21 10/17/21 04:00 04:00 05:37 WBC 14.0 H RBC 2.46 L Hgb 7.2 L Hct 21.7 L MCH RDW 17.4 H Plt Count 526 H [place] # (Auto) Seg Neutrophils % Seg Neuts % (Manual) Lymphocytes % (Manual) Monocytes % (Manual) Nucleated RBC % Seg Neutrophils # Seg Neutrophils # Man Lymphocytes # (Manual) Monocytes # (Manual) PT INR D-Dimer ABG pH ABG pO2 ABG HCO3 ABG O2 Saturation ABG Base Excess ABG Hemoglobin Oxyhemoglobin Sodium Potassium Chloride Carbon Dioxide BUN 29 H Creatinine Glucose 138 H POC Glucose 137 H Lactic Acid Calcium 7.5 L Phosphorus Magnesium Ferritin ALT Lactate Dehydrogenase Total Creatine Kinase C-Reactive Protein Total Protein Albumin Urine Blood Urine WBC (Auto) U Epithel Cells (Auto) Crossmatch 10/17/21 10/17/21 10/17/21 11:45 12:50 16:13 WBC RBC Hgb Hct MCH RDW Plt Count [place] # (Auto) Seg Neutrophils % Seg Neuts % (Manual) Lymphocytes % (Manual) Monocytes % (Manual) Nucleated RBC % Seg Neutrophils # Seg Neutrophils # Man Lymphocytes # (Manual) Monocytes # (Manual) PT INR D-Dimer ABG pH ABG pO2 ABG HCO3 ABG O2 Saturation ABG Base Excess ABG Hemoglobin Oxyhemoglobin Sodium Potassium Chloride Carbon Dioxide BUN Creatinine Glucose POC Glucose 145 H 128 H Lactic Acid Calcium Phosphorus Magnesium Ferritin ALT Lactate Dehydrogenase Total Creatine Kinase C-Reactive Protein Total Protein Albumin Urine Blood Urine WBC (Auto) U Epithel Cells (Auto) Crossmatch See Detail 10/17/21 10/18/21 10/18/21 23:46 04:28 04:28 WBC 16.6 H RBC 2.81 L Hgb 8.4 L Hct 24.4 L MCH RDW 16.8 H Plt Count 516 H [place] # (Auto) Seg Neutrophils % Seg Neuts % (Manual) Lymphocytes % (Manual) Monocytes % (Manual) Nucleated RBC % Seg Neutrophils # Seg Neutrophils # Man Lymphocytes # (Manual) Monocytes # (Manual) PT INR D-Dimer ABG pH ABG pO2 ABG HCO3 ABG O2 Saturation ABG Base Excess ABG Hemoglobin Oxyhemoglobin Sodium Potassium Chloride Carbon Dioxide BUN 26 H Creatinine Glucose 144 H POC Glucose 124 H Lactic Acid Calcium 7.5 L Phosphorus Magnesium Ferritin ALT 6 L Lactate Dehydrogenase Total Creatine Kinase C-Reactive Protein Total Protein 6.1 L Albumin 2.0 L Urine Blood Urine WBC (Auto) U Epithel Cells (Auto) Crossmatch 10/18/21 10/18/21 10/18/21 05:19 11:34 11:40 WBC RBC Hgb Hct MCH RDW Plt Count [place] # (Auto) Seg Neutrophils % Seg Neuts % (Manual) Lymphocytes % (Manual) Monocytes % (Manual) Nucleated RBC % Seg Neutrophils # Seg Neutrophils # Man Lymphocytes # (Manual) Monocytes # (Manual) PT INR D-Dimer ABG pH 7.466 H ABG pO2 90.6 H ABG HCO3 29.0 H ABG O2 Saturation ABG Base Excess 4.9 H ABG Hemoglobin 8.6 L Oxyhemoglobin Sodium Potassium Chloride Carbon Dioxide BUN Creatinine Glucose POC Glucose 128 H Lactic Acid Calcium Phosphorus Magnesium Ferritin ALT Lactate Dehydrogenase Total Creatine Kinase C-Reactive Protein Total Protein Albumin Urine Blood Moderate A Urine WBC (Auto) 50.0 H U Epithel Cells (Auto) Crossmatch 10/18/21 10/18/21 10/19/21 12:20 16:18 01:28 WBC RBC Hgb Hct MCH RDW Plt Count [place] # (Auto) Seg Neutrophils % Seg Neuts % (Manual) Lymphocytes % (Manual) Monocytes % (Manual) Nucleated RBC % Seg Neutrophils # Seg Neutrophils # Man Lymphocytes # (Manual) Monocytes # (Manual) PT INR D-Dimer ABG pH ABG pO2 ABG HCO3 ABG O2 Saturation ABG Base Excess ABG Hemoglobin Oxyhemoglobin Sodium Potassium Chloride Carbon Dioxide BUN Creatinine Glucose POC Glucose 151 H 139 H 126 H Lactic Acid Calcium Phosphorus Magnesium Ferritin ALT Lactate Dehydrogenase Total Creatine Kinase C-Reactive Protein Total Protein Albumin Urine Blood Urine WBC (Auto) U Epithel Cells (Auto) Crossmatch 10/19/21 10/19/21 10/19/21 04:23 04:23 04:23 WBC 16.0 H RBC 3.04 L Hgb 8.7 L Hct 26.3 L MCH RDW 16.9 H Plt Count 500 H [place] # (Auto) Seg Neutrophils % Seg Neuts % (Manual) Lymphocytes % (Manual) Monocytes % (Manual) Nucleated RBC % Seg Neutrophils # Seg Neutrophils # Man Lymphocytes # (Manual) Monocytes # (Manual) PT INR D-Dimer ABG pH ABG pO2 ABG HCO3 ABG O2 Saturation ABG Base Excess ABG Hemoglobin Oxyhemoglobin Sodium Potassium Chloride Carbon Dioxide BUN 20 H Creatinine Glucose 138 H POC Glucose Lactic Acid Calcium 7.8 L Phosphorus 1.80 L D Magnesium 1.60 L Ferritin ALT Lactate Dehydrogenase Total Creatine Kinase C-Reactive Protein Total Protein Albumin Urine Blood Urine WBC (Auto) U Epithel Cells (Auto) Crossmatch Allied health notes reviewed: nursing
[2021-10-19] MEDS: diphenhydrAMINE 50 MG/ML VIAL IV PRN (18:07)
[2021-10-19] MEDS ORDERED: TOTAL PARENTERAL NUTRITION 1,999.92 ML IV SCH (20:00)
[2021-10-19] MEDS: LIP THERAPY VASELINE TP PRN (21:59)
[2021-10-20] MEDS: diphenhydrAMINE 50 MG/ML VIAL IV PRN (03:11)
[2021-10-20] MEDS: MEROPENEM/NS 1 GRAM/100 ML 1 GRAM/100 ML BAG IV SCH ×4 (04:14→23:10)
[2021-10-20] MEDS: TMP IV SCH ×3 (06:01→17:13)
[2021-10-20] MEDS: WATER IV SCH ×3 (06:01→17:13)
[2021-10-20] MEDS: DEXTROSE 5% IV SCH ×3 (06:01→17:13)
[2021-10-20] MEDS: SMX IV SCH ×3 (06:01→17:13)
[2021-10-20] MEDS: ONDANSETRON 4 MG/2 ML INJ IV PRN (06:04)
[2021-10-20] MEDS: HYDROmorphone 1 MG/1 ML INJ IV PRN ×3 (06:04→23:10)
[2021-10-20] MEDS: INSULIN REGULAR, HUMAN 100 UNITS/1 ML SUB-Q SCH ×3 (07:47→12:57)
--- NOTE | 2021-10-20 08:26 | Progress Note ---
Assessment and Plan - Patient Problems (1) Sepsis Current Visit: Yes Status: Acute Plan to address problem: Follow-up cultures. Continue antibiotics (Bactrim and meropenem )appropriately adjusted to the degree of renal function. (2) Acute renal failure Current Visit: Yes Status: Resolved Qualifiers: Acute renal failure type: unspecified Qualified Code(s): N17.9 - Acute kidney failure, unspecified Plan to address problem: Acute tubular necrosis secondary to hypotension/contrast-induced nephropathy. Kidney function had improved. Follow-up labs this morning. Follow-up electrolytes and renal function. (3) Acute respiratory failure with hypoxia Current Visit: Yes Status: Acute Plan to address problem: Continue weaning by community arts officer/currency exchange specialist (4) Appendicitis with perforation Current Visit: Yes Status: Acute Plan to address problem: Status post multiple surgeries. 1) status post laparoscopic converted to open left hemicolectomy with appendectomy for perforated appendicitis with fistulization to sigmoid colon on 09/26/2021 2) status post colorectal anastomosis takedown, with abdominal washout and ABThera wound VAC on 10/12/2021 3) status post colostomy creation with closure of abdomen on 10/14/2021 Continue management by surgeon (5) Hypoalbuminemia due to protein-calorie malnutrition Current Visit: Yes Status: Acute Plan to address problem: Continue parenteral nutritional support. (6) Hypomagnesemia Current Visit: Yes Status: Acute Plan to address problem: Labs pending this morning. Follow-up magnesium level. Supplement magnesium parenterally if indicated and follow-up level (7) Hypophosphatemia Current Visit: Yes Status: Acute Plan to address problem: Labs pending this morning. Follow-up results. Supplement phosphorus parenterally if indicated and follow-up level. Subjective Date of service: 10/20/21 Principal diagnosis: BRYANNA Interval history: Patient seen lying in bed. She still complains of pain. Also having nausea but no vomiting. Admits that she is still a bit short of breath. Still receiving total parenteral nutrition Objective - Exam Narrative Exam: Young -[place] female lying in bed in no acute distress HEENT: NCAT, mild pallor, anicteric Neck: Supple, no venous distention CVS: S1S2 RRR with no murmur, rub or gallop Chest: Bilateral rhonchi Abdomen: Protuberant, soft, nontender, no organomegaly, bowel sounds are diminished Extremities: Mild edema Neuro: Awake, alert no focal deficits - Vital Signs Vital signs: Vital Signs - 12hr 10/19/21 10/19/21 10/19/21 20:31 21:00 21:31 Temperature Pulse Rate 110 H 105 H 108 H Pulse Rate [ 105 H From Monitor] Respiratory 33 H 22 22 Rate Respiratory Rate [Right Medial Abdomen] Blood Pressure 179/96 155/95 155/95 O2 Sat by Pulse 97 100 98 Oximetry 10/19/21 10/19/21 10/19/21 22:00 22:09 22:31 Temperature Pulse Rate 107 H 106 H 100 H Pulse Rate [ From Monitor] Respiratory 24 20 25 H Rate Respiratory Rate [Right Medial Abdomen] Blood Pressure 157/91 157/91 157/91 O2 Sat by Pulse 99 99 100 Oximetry 10/19/21 10/19/21 10/19/21 22:48 23:00 23:31 Temperature Pulse Rate 106 H 102 H Pulse Rate [ From Monitor] Respiratory 27 H 20 Rate Respiratory 29 H Rate [Right Medial Abdomen] Blood Pressure 164/101 164/101 O2 Sat by Pulse 99 99 Oximetry 10/20/21 10/20/21 10/20/21 00:00 00:31 00:45 Temperature 99.5 F Pulse Rate 102 H 101 H 106 H Pulse Rate [ 106 H From Monitor] Respiratory 41 H 43 H Rate Respiratory Rate [Right Medial Abdomen] Blood Pressure 150/93 150/93 O2 Sat by Pulse 97 97 Oximetry 10/20/21 10/20/21 10/20/21 01:00 01:31 02:00 Temperature Pulse Rate 101 H 108 H 103 H Pulse Rate [ From Monitor] Respiratory 37 H 30 H 27 H Rate Respiratory Rate [Right Medial Abdomen] Blood Pressure 152/94 152/94 157/94 O2 Sat by Pulse 98 99 97 Oximetry 10/20/21 10/20/21 10/20/21 02:31 03:00 03:31 Temperature Pulse Rate 107 H 97 H 101 H Pulse Rate [ From Monitor] Respiratory 34 H 33 H 29 H Rate Respiratory Rate [Right Medial Abdomen] Blood Pressure 157/94 154/98 154/98 O2 Sat by Pulse 95 97 96 Oximetry 10/20/21 10/20/21 10/20/21 04:00 04:10 04:31 Temperature 99.0 F Pulse Rate 102 H 111 H 117 H Pulse Rate [ From Monitor] Respiratory 47 H 34 H Rate Respiratory Rate [Right Medial Abdomen] Blood Pressure 157/109 157/109 O2 Sat by Pulse 95 97 Oximetry 10/20/21 10/20/21 10/20/21 05:00 05:31 06:00 Temperature Pulse Rate 102 H 122 H 104 H Pulse Rate [ 106 H From Monitor] Respiratory 41 H 50 H 32 H Rate Respiratory Rate [Right Medial Abdomen] Blood Pressure 155/88 155/88 173/107 O2 Sat by Pulse 96 96 98 Oximetry 10/20/21 10/20/21 10/20/21 06:04 06:31 07:00 Temperature Pulse Rate 105 H 110 H Pulse Rate [ From Monitor] Respiratory 42 H 43 H 15 Rate Respiratory Rate [Right Medial Abdomen] Blood Pressure 173/107 160/102 O2 Sat by Pulse 97 97 Oximetry - Lab 10/19/21 04:23 10/19/21 04:23 Most recent lab results ABG pH 7.466 pH Units (7.350-7.450) H 10/18/21 11:34 ABG pCO2 41.1 mm Hg 10/18/21 11:34 ABG pO2 90.6 mm Hg (80.0-90.0) H 10/18/21 11:34 ABG HCO3 29.0 mmol/L (20.0-26.0) H 10/18/21 11:34 ABG O2 Saturation 97.3 % (95.0-99.0) 10/18/21 11:34 Calcium 7.8 mg/dL (8.4-10.2) L 10/19/21 04:23 Phosphorus 1.80 mg/dL (2.5-4.5) L D 10/19/21 04:23 Magnesium 1.60 mg/dL (1.7-2.3) L 10/19/21 04:23 Medications & Allergies - Medications Allergies/Adverse Reactions: Allergies No Known Allergies Allergy (Verified 09/24/21 12:21) Home Medications: Home Medications Medication Instructions Recorded Confirmed Last Taken Type No Known Home Medications [No 09/27/21 09/27/21 Unknown History Reported Home Medications] Active Medications: Generic Name Dose Route Start Last Admin Trade Name Freq PRN Reason Stop Dose Admin Acetaminophen 650 mg 10/08/21 21:38 Acetaminophen 325 Mg Tab PO Q6H PRN Pain, Mild (1-3) Albuterol 2.5 mg 09/24/21 18:07 Albuterol 2.5 Mg/3 Ml Nebu IH Q4HRT PRN Shortness Of Breath Dextrose 0 ml 10/03/21 12:37 Dextrose 10% *Hypoglycemia IV PRN PRN Hypoglycemia Diphenhydramine HCl 25 mg 10/04/21 15:14 10/20/21 03:11 Diphenhydramine 50 Mg/Ml Vial IV 25 mg Q6H PRN Administration Itching Famotidine 20 mg 10/08/21 22:00 10/19/21 22:00 Famotidine 20 Mg/2 Ml Inj IV 20 mg BID JAZ Administration Heparin Sodium (Porcine) 5,000 unit 10/16/21 10:00 10/19/21 22:01 Heparin 5,000 Unit/1 Ml Vial SUB-Q 5,000 unit Q12HR JAZ Administration Hydromorphone HCl 0.5 mg 10/18/21 15:39 10/20/21 06:04 Hydromorphone 1 Mg/1 Ml Inj IV 0.5 mg Q3H PRN Administration Pain, Moderate (4-6) Hydrophilic Ointment 1 applic 10/08/21 21:00 10/19/21 21:59 Lip Therapy Vaseline TP 1 applic Q2HR PRN Administration Dry Lips Fluconazole 200 mls @ 100 mls/hr 10/13/21 10:00 10/19/21 09:23 Diflucan IV 100 mls/hr Q24HR JAZ Administration Protocol Meropenem/Sodium Chloride 1 gram in 100 mls @ 100 mls/hr 10/18/21 11:00 10/20/21 04:14 Merrem/Ns 1 Gram/100 Ml IV 100 mls/hr Q6H JAZ Administration Protocol Trimethoprim/Sulfamethoxazole 525 mls @ 167 mls/hr 10/18/21 12:00 10/20/21 06:01 400 mg/ Dextrose IV 167 mls/hr Q6HR JAZ Administration Protocol Amino Acids/Electrolytes/Dextrose 1,999.92 mls @ 83.33 mls/hr 10/19/21 20:00 10/19/21 20:16 Tpn Adult IV 10/20/21 19:59 83.33 mls/hr DAILY@2000 [facility] Administration Protocol Insulin Glargine 5 units 10/13/21 10:00 10/19/21 09:23 Insulin Glargine 100 Units/Ml SUB-Q 5 units QDAY JAZ Administration Insulin Human Regular 0 units 10/10/21 00:00 10/20/21 07:47 Insulin Regular, Human 100 Units/1 Ml SUB-Q Not Given Q6HR [facility] Protocol Labetalol HCl 10 mg 10/01/21 08:31 10/18/21 15:05 Labetalol 20 Mg/4 Ml Inj IV 10 mg Q6H PRN Administration Hypertension Multi-Ingred Cream/Lotion/Oil/Oint 1 applic 10/08/21 21:00 Mineral Oil/Petrolatum, White Ophth Oint 3.5 Gm OU Q4HR PRN Dry Eye(s) Naloxone HCl 0.1 mg 10/03/21 14:00 Naloxone 0.4 Mg/1 Ml Inj IV Q2MIN PRN Res Rate </= 8 or 02 SAT < 92% Nystatin 1 applic 10/18/21 14:00 10/19/21 22:01 Nystatin Powder 15 Gm TP 10/24/21 22:01 1 applic BID JAZ Administration Ondansetron HCl 4 mg 09/24/21 18:07 10/20/21 06:04 Ondansetron 4 Mg/2 Ml Inj IV 4 mg Q8H PRN Administration Nausea And Vomiting Phenol 1 spray 10/02/21 13:00 10/03/21 10:23 Phenol 1.4% 177 Ml Bottle MM 1 spray PRN PRN Administration Sore Throat Scopolamine 1 each 10/04/21 10:00 10/19/21 09:31 Scopolamine Transdermal Patch 72 Hr TD 1 each Q3D JAZ Administration Sodium Chloride 10 ml 09/24/21 22:00 10/19/21 22:00 Sodium Chloride 0.9% 10 Ml Flush Syringe IV 10 ml BID JAZ Administration Sodium Chloride 10 ml 09/24/21 18:07 09/25/21 08:34 Sodium Chloride 0.9% 10 Ml Flush Syringe IV 10 ml PRN PRN Administration LINE FLUSH
--- NOTE | 2021-10-20 08:44 | Progress Note ---
Assessment and Plan Cultures: 09/24/2021 blood culture: No growth 09/30/2021 YURIDIA drain wound culture: VRE, Enterococcus faecium 10/08/2021 blood culture: No growth 10/11/2021 intra-abdominal surgical culture: Jo Ann albicans, MSSA, stenotrophomonas 10/12/2021 tracheal culture: No growth 10/18/2021 blood culture: no growth 10/18/2021 urine culture: no growth 10/18/2021 sputum culture: GNR A/P: 31-year-old female past medical history obesity, nephrolithiasis admitted with: #Sepsis: Secondary to intra-abdominal infection. 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 Extubated 08/20/2021. #Leukocytosis, reactive thrombocytosis #BRYANNA: resolved. #Obesity Recs: -continue empiric meropenem, fluconazole, Bactrim -f/u final culture results -monitor renal function daily while on IV Bactrim Mónica Swan MD, FACP, [facility] ([facility] O: [phone] F: [phone] C: [phone] Subjective Date of service: 10/20/21 Principal diagnosis: BRYANNA Interval history: No fever. Transferred to [facility]. Remains on TPN, NG suction. Denies any pain. Objective - Exam Narrative Exam: Physical Exam: Constitutional: Awake, alert, no distress Head, Ears, Nose: Normocephalic, atraumatic. External ears, nose normal Eyes: Conjunctivae/corneas clear. No icterus. No ptosis. Neck: supple Cardiovascular: S1, S2 + Respiratory: AE fair bilaterally and equal GI: Soft, dressing, drain present, colostomy present Musculoskeletal: Obese, edema present Skin: No rash or abscess Hem/Lymphatic: No palpable cervical or supraclavicular nodes. No lymphangitis Psych: calm Neurological: Awake, alert, answering questions - Constitutional Vitals: Vital Signs Temp Pulse Resp BP Pulse Ox 98.4 F 110 H 15 160/102 97 10/20/21 08:00 10/20/21 07:00 10/20/21 07:00 10/20/21 07:00 10/20/21 07:00 Temperature -Last 24 Hours Temperature 98.4 F Temperature 99.0 F Temperature 99.5 F Temperature 99.5 F Temperature 98.7 F Temperature 98.5 F - Labs CBC & Chem 7: 10/19/21 04:23 10/19/21 04:23 Labs: Abnormal lab results 10/19/21 10/19/21 10/19/21 Range/Units 14:11 18:05 21:42 POC Glucose 161 H 162 H 112 H (70-105) mg/dL 10/20/21 10/20/21 Range/Units 00:01 05:39 POC Glucose 152 H 117 H (70-105) mg/dL
[2021-10-20] MEDS: FAMOTIDINE 20 MG/2 ML INJ IV SCH (09:55)
[2021-10-20] MEDS: HEPARIN 5,000 UNIT/1 ML VIAL SUB-Q SCH ×2 (09:55→22:07)
[2021-10-20] MEDS: INSULIN GLARGINE 100 UNITS/ML SUB-Q SCH (09:56)
[2021-10-20] MEDS: FLUCONAZOLE 400 MG 200 ML IV SCH (09:58)
[2021-10-20] MEDS: NYSTATIN POWDER 15 GM TP SCH ×2 (10:00→22:46)
--- NOTE | 2021-10-20 10:45 | Progress Note ---
Assessment and Plan Assessment and plan: This is a 31-year-old female with past medical history of obesity and nephrolithiasis initially admitted to the floor for acute diverticulititis which was complicated by sepsis and acute kidney injury. 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 On 10/08/21 patient developed acute hypoxic respiratory failure requiring ventilatory support, s/p extubation now stable on 2L NC. ICU Course to Date: 10/09: Intubated and sedated, RASS -1 to -2. Recent CXR noted with worsen bilateral opacities with persistent leukocytosis, elevated lactic, and now on 2 pressors. Patient remains afebrile, and already on IV Abx per ID. Will swab patient for COVID. Given recent surgery orders placed for CTA chest, CT Abd/plevis. And also BLE dopplers due to elevated D-Dimer. Renal function is improving, additional IVF to flush out kidney post contrast, Nephrology is also following. Continue TPN and NGT to LIS. 10/10: COVID PCR negative. CTA chest and Abd/plevis noted. No evidence of PE. Patient received X1 dose of 20mg IV lasix per Nephro for pulmonary edema, this a m CXR with some improvement, renal function is also improving. Wean vent setting as tolerated per CCM. Plan for possible CT guided drainage placement in IR tomorrow. Continue TPN and NGT to LIS. 10/11: Patient with anemia, 1 unit PRBC, scheduled for CT-guided drain image of air pocket. Will place on CPAP on return. Slightly worsening renal function but nephrology is on the case. 10/12: Taken to OR today for diverting ileostomy, given 3 units PRBC yesterday and appropriate response. Surgical culture grew yeast and ID added added fluconazole. 10/13: Hypomagnesemia repleted, renal function improving. Patient remains sedated with fentanyl and propofol. Updated sister and father at bedside. Ureteral stents removed at bedside. Plan to to take patient to the OR tomorrow for second look, abdominal washout, colostomy creation on hold for abdominal closure by surgery. We will hold p.m. dose of heparin. 10/14: Plan to take patient back to OR today, prophylactic anticougulation on h old. 2 units prbc on hold for surgery. Plan to close abd and colostomy creation. Vent weaning on hold till abd closure 10/15: Renal function remains stable, leukocytosis increased, remains sedated on propofol and fentanyl and on mechanical ventilation. Plan is to hold SBT until the weekend. Repeat renal ultrasound pending per urology. 10/16: no acute events overnight. remains on fent and propofol. plan to sbt on monday. 10/17: noted drop in hgb from 8 to 7.2 and will given one unit prbc. remains on fent/propofol. CARMEN overnight. Will retract OETT per rad reading. 10/18: Febrile this am with worsen leukocytosis. Continue IV Abx per ID, orders placed for cultures. Patient tolerating PST, d/w CCM plan for possible extubation today. Abdominal insicion and colostomy noted, no signs of any complications noted. Continue TPN and NGT to LIS per General surgery. 10/19: S/p extubation, now stable on 2L NC. Fevers improved, cultures pending continue IV Abx per ID. Patient is still with absent bowel sounds, continue TPN and NGT to LIS per General surg. Okay to remove brantley per Urology. Electrolytes repleted, repeat labs in the am. Patient is stable for transfer to [facility]. 10/20: Continue current management. Patient remained stable on 2 L of oxygen but appears anxious with increased tachypnea. We will add incentive spirometer. Will check and monitor intermittent x-rays. Continue antibiotics per infectious disease. Renal function has normalized. We will good urine output. We will check blood work in a.m. 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 post appendectomy #VRE infection #Open left hemicolectomy and partial omentectomy #Peritonitis #Diverticulitis with abscess #Possible Bilateral Pneumonia #Septic Shock-resolved -CT abd/pelvis showed diverticulitis with abscess -General surgery following, assistance appreciated -s/p diagnositic laparatomy and drain placement 09/26/2021 -Returned to the OR on 09/30/2021 for left hemicolectomy, appendectomy, and partial omentectomy -10/09 CT abdomen/pelvis showed a new collection of air within the left midabdomen -10/11 CT guided drain placement in IR- Colonic Anastamosis noted -10/12 status post colorectal anastomosis takedown, with abdominal washout and ABThera wound VAC placement -10/13 status post colostomy creation with closure of abdomen -Wound culture +VRE -10/08 Repeat Blood culture negative -10/18 repeat cultures pending -Continue IV Abx per ID recommendations -Continue TPN/PPN per general surgery -NGT to LIS -Trend CBC #Acute Kidney Injury 2/ Vasomotor Nephropathy vs contrast induced-improved -Nephrology consulted, assistance appreciated -Renal function normalized -Strict intake and output -Avoid nephrotoxic medications; Renally dose medications -Monitor and replace electrolytes as needed #Acute blood loss anemia-Resolved #Gross Hematuria-resolved -09/08 to surgical procedures-- c/f ureteral injury -s/p 7 units of pRBCs since admission -Hematuria resolved, H&H stable -Urology consulted, appreciated recommendation -10/12 Intra-Op cystoscopy completed and bilateral ureteral stents placed- removed on 10/13 By Urology -Repeat renal US noted -Okay to remove Brantley per Urology -Continue to monitor for s/s of any active bleeding, trend CBC -transfuse if hemoglobin less than 7 or patient becomes symptomatic #Moderate protein caloric malnutrition -Albumin 1.6 -Continue TPN/PPN per general surgery -Consulting nutrition; appreciate recs #Elevated D-Dimer -BLE doppler with no evidence of any DVT -Continue AC- Heparin subQ #Hyperglycemia -most likely due to TPN/PPN -Continue SSI Q6hrs -Avoid hypoglycemia #Anxiety #GI/DVT Prophylaxis -Continue PPI- Pepcid -Continue AC- Heparin subQ -SCDs to bilateral lower extremities while in bed The high probability of a clinically significant, sudden or life threatening deterioration of the [multiple] system(s) required my full and direct attention, intervention and personal management. The aggregate critical care time was [60] minutes. This time is in addition to time spent performing reported procedures but includes the following: [x] Data Review and interpretation [x] Patient assessment and monitoring of vital signs [x] Documentation [x] Medication orders and management Disposition Plan: ICU Total Time Spent with Patient (Minutes): 60 History Interval history: Patient seen and examined this morning remains with mild distress likely secondary to intermittent anxiety. No other adverse event reported by nursing staff. Hospitalist Physical - Physical exam Narrative exam: General appearance: Present: Anxious obese - EENT Eyes: Present: PERRL, EOM intact ENT: hearing intact - Neck Neck: Present: normal ROM - Respiratory Respiratory effort: normal Respiratory: bilateral: diminished, shallow tachypneic - Cardiovascular Rhythm: regular Heart Sounds: Present: S1 & S2 tachycardic - Extremities Extremities: no ischemia, pulses intact, pulses symmetrical Extremity abnormal: edema - Peripheral Assessment Generalized Edema Type: Non-pitting Edema Degree: 3+ Capillary Refill: < 3 seconds Skin Temperature: Warm Peripheral Pulses: within normal limits - Abdominal General gastrointestinal: soft, non-distended, absent bowel sounds, other (LUQ Colostomy, Mid Abdominal insicion) YURIDIA drain in place - Integumentary Integumentary: Present: warm, dry - Psychiatric Psychiatric: appropriate mood/affect, cooperative - Neurologic Neurologic: CNII-XII intact, moves all extremities - Allied Health Allied health notes reviewed: nursing, case management - Constitutional Vitals: Temp Pulse Resp BP Pulse Ox 98.4 F 108 H 52 H 157/99 96 10/20/21 08:00 10/20/21 10:00 10/20/21 10:00 10/20/21 10:00 10/20/21 10:00 General appearance: Present: no acute distress, obese Results - Labs CBC & Chem 7: 10/20/21 11:41 10/19/21 04:23 Labs: Laboratory Last Values WBC 16.0 K/mm3 (4.5-11.0) H 10/19/21 04:23 RBC 3.04 M/mm3 (3.65-5.03) L 10/19/21 04:23 Hgb 8.7 gm/dl (10.1-14.3) L 10/19/21 04:23 Hct 26.3 % (30.3-42.9) L 10/19/21 04:23 MCV 87 fl (79-97) 10/19/21 04:23 MCH 29 pg (28-32) 10/19/21 04:23 MCHC 33 % (30-34) 10/19/21 04:23 RDW 16.9 % (13.2-15.2) H 10/19/21 04:23 Plt Count 500 K/mm3 (140-440) H 10/19/21 04:23 [place] % (Auto) 5.9 % (0.0-7.3) 09/28/21 04:55 Eos % (Auto) 0.4 % (0.0-4.3) 09/28/21 04:55 [place] # (Auto) 0.9 K/mm3 (0.0-0.8) H 09/28/21 04:55 Eos # (Auto) 0.1 K/mm3 (0.0-0.4) 09/28/21 04:55 Baso # (Auto) 0.0 K/mm3 (0.0-0.1) 09/28/21 04:55 Add Manual Diff Complete 10/09/21 05:31 Total Counted 100 10/09/21 05:31 Seg Neutrophils % Clinical Research Nurse 10/03/21 04:55 Seg Neuts % (Manual) 88.0 % (40.0-70.0) H 10/09/21 05:31 Band Neutrophils % 0 % 10/09/21 05:31 Lymphocytes % (Manual) 3.0 % (13.4-35.0) L 10/09/21 05:31 Reactive Lymphs % (Man) 1.0 % 10/09/21 05:31 Monocytes % (Manual) 6.0 % (0.0-7.3) 10/09/21 05:31 Eosinophils % (Manual) 2.0 % (0.0-4.3) 10/09/21 05:31 Basophils % (Manual) 0 % (0.0-1.8) 10/09/21 05:31 Metamyelocytes % 0 % 10/09/21 05:31 Myelocytes % 0 % 10/09/21 05:31 Promyelocytes % 0 % 10/09/21 05:31 Blast Cells % 0 % 10/09/21 05:31 Nucleated RBC % Not Reportable 10/09/21 05:31 Seg Neutrophils # 14.0 K/mm3 (1.8-7.7) H 09/28/21 04:55 Seg Neutrophils # Man 17.9 K/mm3 (1.8-7.7) H 10/09/21 05:31 Band Neutrophils # 0.0 K/mm3 10/09/21 05:31 Lymphocytes # (Manual) 0.6 K/mm3 (1.2-5.4) L 10/09/21 05:31 Abs React Lymphs (Man) 0.2 K/mm3 10/09/21 05:31 Monocytes # (Manual) 1.2 K/mm3 (0.0-0.8) H 10/09/21 05:31 Eosinophils # (Manual) 0.4 K/mm3 (0.0-0.4) 10/09/21 05:31 Basophils # (Manual) 0.0 K/mm3 (0.0-0.1) 10/09/21 05:31 Metamyelocytes # 0.0 K/mm3 10/09/21 05:31 Myelocytes # 0.0 K/mm3 10/09/21 05:31 Promyelocytes # 0.0 K/mm3 10/09/21 05:31 Blast Cells # 0.0 K/mm3 10/09/21 05:31 Pathologist Review 09/24/21 14:58 WBC Morphology Not Reportable 10/09/21 05:31 Hypersegmented Neuts Not Reportable 10/09/21 05:31 Hyposegmented Neuts Not Reportable 10/09/21 05:31 Hypogranular Neuts Not Reportable 10/09/21 05:31 Smudge Cells Not Reportable 10/09/21 05:31 Toxic Granulation Not Reportable 10/09/21 05:31 Toxic Vacuolation Not Reportable 10/09/21 05:31 Dohle Bodies Not Reportable 10/09/21 05:31 Pelger-Huet Anomaly Not Reportable 10/09/21 05:31 Marlene Rods Not Reportable 10/09/21 05:31 Platelet Estimate Consistent w auto 10/09/21 05:31 Clumped Platelets Not Reportable 10/09/21 05:31 Plt Clumps, EDTA Not Reportable 10/09/21 05:31 Large Platelets Not Reportable 10/09/21 05:31 Giant Platelets Not Reportable 10/09/21 05:31 Platelet Satelliting Not Reportable 10/09/21 05:31 Plt Morphology Comment Not Reportable 10/09/21 05:31 RBC Morphology Not Reportable 10/09/21 05:31 Dimorphic RBCs Not Reportable 10/09/21 05:31 Polychromasia Not Reportable 10/09/21 05:31 Hypochromasia Not Reportable 10/09/21 05:31 Poikilocytosis Not Reportable 10/09/21 05:31 Anisocytosis 1+ 10/09/21 05:31 Microcytosis Not Reportable 10/09/21 05:31 Macrocytosis Not Reportable 10/09/21 05:31 Spherocytes Not Reportable 10/09/21 05:31 Pappenheimer Bodies Not Reportable 10/09/21 05:31 Sickle Cells Not Reportable 10/09/21 05:31 Target Cells Not Reportable 10/09/21 05:31 Tear Drop Cells Not Reportable 10/09/21 05:31 Ovalocytes Not Reportable 10/09/21 05:31 Helmet Cells Not Reportable 10/09/21 05:31 [place] Bodies Not Reportable 10/09/21 05:31 [place] Rings Not Reportable 10/09/21 05:31 An[place]a Cells Not Reportable 10/09/21 05:31 Bite Cells Not Reportable 10/09/21 05:31 Crenated Cell Not Reportable 10/09/21 05:31 Elliptocytes Not Reportable 10/09/21 05:31 Acanthocytes (Spur) Not Reportable 10/09/21 05:31 Rouleaux Not Reportable 10/09/21 05:31 Hemoglobin C Crystals Not Reportable 10/09/21 05:31 Schistocytes Not Reportable 10/09/21 05:31 Malaria parasites Not Reportable 10/09/21 05:31 Flaco Bodies Not Reportable 10/09/21 05:31 Hem Pathologist Commnt No 10/09/21 05:31 PT 19.0 Sec. (12.2-14.9) H 10/14/21 04:05 INR 1.41 (0.87-1.13) H 10/14/21 04:05 APTT 33.9 Sec. (24.2-36.6) 10/14/21 04:05 D-Dimer > 13892 ng/mlDDU (0-234) H 10/09/21 08:45 ABG pH 7.466 pH Units (7.350-7.450) H 10/18/21 11:34 ABG pCO2 41.1 mm Hg 10/18/21 11:34 ABG pO2 90.6 mm Hg (80.0-90.0) H 10/18/21 11:34 ABG HCO3 29.0 mmol/L (20.0-26.0) H 10/18/21 11:34 ABG O2 Saturation 97.3 % (95.0-99.0) 10/18/21 11:34 ABG O2 Content 11.6 (0.0-44) 10/18/21 11:34 ABG Base Excess 4.9 mmol/L (-2.0-3.0) H 10/18/21 11:34 ABG Hemoglobin 8.6 gm/dl (12.0-16.0) L 10/18/21 11:34 ABG Carboxyhemoglobin 1.4 % (0.0-5.0) 10/18/21 11:34 ABG Methemoglobin 0.6 % (0.0-1.5) 10/18/21 11:34 Oxyhemoglobin 95.4 % (95.0-99.0) 10/18/21 11:34 FiO2 30 % 10/18/21 11:34 Sodium 139 mmol/L (137-145) 10/19/21 04:23 Potassium 3.8 mmol/L (3.6-5.0) 10/19/21 04:23 Chloride 101.1 mmol/L (98-107) 10/19/21 04:23 Carbon Dioxide 28 mmol/L (22-30) 10/19/21 04:23 Anion Gap 14 mmol/L 10/19/21 04:23 BUN 20 mg/dL (7-17) H 10/19/21 04:23 Creatinine 0.8 mg/dL (0.6-1.2) 10/19/21 04:23 Estimated GFR > 60 ml/min 10/19/21 04:23 BUN/Creatinine Ratio 25 % 10/19/21 04:23 Glucose 138 mg/dL (65-100) H 10/19/21 04:23 POC Glucose 117 mg/dL (70-105) H 10/20/21 05:39 Lactic Acid 1.80 mmol/L (0.7-2.0) 10/10/21 04:10 Calcium 7.8 mg/dL (8.4-10.2) L 10/19/21 04:23 Phosphorus 1.80 mg/dL (2.5-4.5) L D 10/19/21 04:23 Magnesium 1.60 mg/dL (1.7-2.3) L 10/19/21 04:23 Ferritin 751.9 ng/mL (10.0-200.0) H 10/09/21 05:31 Total Bilirubin 0.20 mg/dL (0.1-1.2) 10/18/21 04:28 AST 19 units/L (5-40) 10/18/21 04:28 ALT 6 units/L (7-56) L 10/18/21 04:28 Alkaline Phosphatase 53 units/L (35-129) 10/18/21 04:28 Lactate Dehydrogenase 472 units/L (91-180) H 10/09/21 05:31 Total Creatine Kinase 45 units/L (30-135) 10/13/21 04:05 C-Reactive Protein 15.90 mg/dL (0.00-1.30) H 10/09/21 05:31 Total Protein 6.1 g/dL (6.3-8.2) L 10/18/21 04:28 Albumin 2.0 g/dL (3.9-5) L 10/18/21 04:28 Albumin/Globulin Ratio 0.5 % 10/18/21 04:28 Triglycerides 80 mg/dL (2-149) 10/14/21 04:05 Procalcitonin 12.98 ng/mL (<0.15) 10/09/21 05:31 Urine Color Yellow (Yellow) 10/18/21 11:40 Urine Turbidity Clear (Clear) 10/18/21 11:40 Urine pH 6.0 (5.0-7.0) 10/18/21 11:40 Ur Specific [place] 1.015 (1.003-1.030) 10/18/21 11:40 Urine Protein 30 mg/dl mg/dL (Negative) 10/18/21 11:40 Urine Glucose (UA) Trace mg/dL (Negative) 10/18/21 11:40 Urine Ketones Negative mg/dL (Negative) 10/18/21 11:40 Urine Blood Moderate (Negative) A 10/18/21 11:40 Urine Nitrite Negative (Negative) 10/18/21 11:40 Ur Reducing Substances Not Reportable 09/24/21 14:49 Urine Bilirubin Negative (Negative) 10/18/21 11:40 Urine Ictotest Not Reportable 09/24/21 14:49 Urine Urobilinogen 0.0 mg/dL (<2.0) 10/18/21 11:40 Ur Leukocyte Esterase Negative (Negative) 10/18/21 11:40 Urine WBC (Auto) 50.0 /HPF (0.0-6.0) H 10/18/21 11:40 Urine RBC (Auto) > 182.0 /HPF (0.0-6.0) 10/18/21 11:40 U Epithel Cells (Auto) 2.0 /HPF (0-13.0) 10/18/21 11:40 Urine Bacteria (Auto) 2+ /HPF (Negative) 10/18/21 11:40 Urine WBC Clumps 1+ /HPF 10/18/21 11:40 Hyaline Casts Few /LPF 10/18/21 11:40 Granular Casts Few /LPF 10/18/21 11:40 Urine Mucus 3+ /HPF 10/18/21 11:40 Urine HCG, Qual Negative (Negative) 09/24/21 14:49 Coronavirus (PCR) Negative (Negative) 10/09/21 10:15 Blood Type A POSITIVE 10/17/21 12:50 Antibody Screen Negative 10/17/21 12:50 Crossmatch See Detail 10/17/21 12:50 Microbiology: Microbiology 10/18/21 08:10 Tracheal Aspirate Sputum Culture - Preliminary Stenotrophomonas Maltophilia 10/18/21 08:17 Peripheral/Venous Blood Culture - Preliminary NO GROWTH AFTER 48 HOURS 10/18/21 08:17 Peripheral/Venous Blood Culture - Preliminary NO GROWTH AFTER 48 HOURS 10/18/21 13:02 Urine,Catheterized - Indwelling Catheter Urine Culture - Preliminary NO GROWTH AFTER 24 HOURS Brantley/IV: Voiding Method External Female Catheter Active Medications - Current Medications Current Medications: Generic Name Dose Route Start Last Admin Trade Name Freq PRN Reason Stop Dose Admin Acetaminophen 650 mg 10/08/21 21:38 Acetaminophen 325 Mg Tab PO Q6H PRN Pain, Mild (1-3) Albuterol 2.5 mg 09/24/21 18:07 Albuterol 2.5 Mg/3 Ml Nebu IH Q4HRT PRN Shortness Of Breath Dextrose 0 ml 10/03/21 12:37 Dextrose 10% *Hypoglycemia IV PRN PRN Hypoglycemia Diphenhydramine HCl 25 mg 10/04/21 15:14 10/20/21 03:11 Diphenhydramine 50 Mg/Ml Vial IV 25 mg Q6H PRN Administration Itching Famotidine 20 mg 10/08/21 22:00 10/20/21 09:55 Famotidine 20 Mg/2 Ml Inj IV 20 mg BID JAZ Administration Heparin Sodium (Porcine) 5,000 unit 10/16/21 10:00 10/20/21 09:55 Heparin 5,000 Unit/1 Ml Vial SUB-Q 5,000 unit Q12HR JAZ Administration Hydromorphone HCl 0.5 mg 10/18/21 15:39 10/20/21 09:58 Hydromorphone 1 Mg/1 Ml Inj IV 0.5 mg Q3H PRN Administration Pain, Moderate (4-6) Hydrophilic Ointment 1 applic 10/08/21 21:00 10/19/21 21:59 Lip Therapy Vaseline TP 1 applic Q2HR PRN Administration Dry Lips Fluconazole 200 mls @ 100 mls/hr 10/13/21 10:00 10/20/21 09:58 Diflucan IV 100 mls/hr Q24HR JAZ Administration Protocol Meropenem/Sodium Chloride 1 gram in 100 mls @ 100 mls/hr 10/18/21 11:00 10/20/21 10:00 Merrem/Ns 1 Gram/100 Ml IV 100 mls/hr Q6H JAZ Administration Protocol Trimethoprim/Sulfamethoxazole 525 mls @ 167 mls/hr 10/18/21 12:00 10/20/21 06:01 400 mg/ Dextrose IV 167 mls/hr Q6HR JAZ Administration Protocol Amino Acids/Electrolytes/Dextrose 1,999.92 mls @ 83.33 mls/hr 10/19/21 20:00 10/19/21 20:16 Tpn Adult IV 10/20/21 19:59 83.33 mls/hr DAILY@2000 JAZ Administration Protocol Insulin Glargine 5 units 10/13/21 10:00 10/20/21 09:56 Insulin Glargine 100 Units/Ml SUB-Q 5 units QDAY JAZ Administration Insulin Human Regular 0 units 10/10/21 00:00 10/20/21 07:47 Insulin Regular, Human 100 Units/1 Ml SUB-Q Not Given Q6HR [facility] Protocol Labetalol HCl 10 mg 10/01/21 08:31 10/20/21 09:56 Labetalol 20 Mg/4 Ml Inj IV 10 mg Q6H PRN Administration Hypertension Multi-Ingred Cream/Lotion/Oil/Oint 1 applic 10/08/21 21:00 Mineral Oil/Petrolatum, White Ophth Oint 3.5 Gm OU Q4HR PRN Dry Eye(s) Naloxone HCl 0.1 mg 10/03/21 14:00 Naloxone 0.4 Mg/1 Ml Inj IV Q2MIN PRN Res Rate </= 8 or 02 SAT < 92% Nystatin 1 applic 10/18/21 14:00 10/20/21 10:00 Nystatin Powder 15 Gm TP 10/24/21 22:01 1 applic BID JAZ Administration Ondansetron HCl 4 mg 09/24/21 18:07 10/20/21 06:04 Ondansetron 4 Mg/2 Ml Inj IV 4 mg Q8H PRN Administration Nausea And Vomiting Phenol 1 spray 10/02/21 13:00 10/03/21 10:23 Phenol 1.4% 177 Ml Bottle MM 1 spray PRN PRN Administration Sore Throat Scopolamine 1 each 10/04/21 10:00 10/19/21 09:31 Scopolamine Transdermal Patch 72 Hr TD 1 each Q3D JAZ Administration Sodium Chloride 10 ml 09/24/21 22:00 10/19/21 22:00 Sodium Chloride 0.9% 10 Ml Flush Syringe IV 10 ml BID JAZ Administration Sodium Chloride 10 ml 09/24/21 18:07 09/25/21 08:34 Sodium Chloride 0.9% 10 Ml Flush Syringe IV 10 ml PRN PRN Administration LINE FLUSH Nutrition/Malnutrition Assess - Dietary Evaluation Nutrition/Malnutrition Findings: Nutrition Notes Start: 09/25/21 15:31 Freq: Status: Active Protocol: Document 10/19/21 09:56 BIN (Rec: 10/19/21 10:08 BIN [id number]) Nutrition Notes Initial or Follow up Reassessment Current Diagnosis Acute Kidney Injury, Malnutrition Other Pertinent Diagnosis s/p appendectomy, s/p exp lap with colostomy, anemia Current Diet CPN at 83.33 ml/hr Labs/Tests 10/19: BUN 20, Glu 138, Ca 7.8 , Phos 1.8, Mg 1.6. Pertinent Medications 10/19: Insulin, others nutritionally unremarkable. Height 5 ft 7 in Weight 110 kg [place] Body Weight (kg) 61.36 BMI 38.0 Weight change and time frame No body weight change reported in 1 day. Weight Status Obese Subjective/Other Information Day 17 CPN. Pt off Mechanical Ventilation on 10/18, well tolerated, Pt alert and awake, according to Progress notes. Ileus continues, Good urine output, Bilateral Pneumonia improving, BRYANNA improving, according to Progress notes. Percent of energy/protein needs met: 76% Kcal; 98% AA. Burn Absent Trauma Absent GI Symptoms Other Food Allergy No Skin Integrity/Comment Surgical wound Current % PO Other Minimum of two criteria No #1 Nutrition Diagnosis Altered GI function Diagnosis Progress(for reassessment Continues documentation) Is patient on ventilator? Yes Is Patient Ambulatory and/or Out of Bed No REE-([facility]-confined to bed) 2212.908 Kcal/Kg value to use for calculation 16 Approximate Energy Requirements Using 1760 kcal/Kg Calculation Used for Recommendations Kcal/kg Additional Notes Protein: 2 g/Kg; 123 g/day IBW . Fluids: 1 mL/Kcal, or as per MD. Nutrition Intervention Nutrition Support: Continue CPN at 83.33 ml/hr: MVI, 6.0% amino acids, 12.5% Dextrose. K 60 mEq, Mg 10 mEq,Phos 40 mmol. Osmolality: 1445. Kcal 1,330 Protein (gm) 120 Carbohydrates (gm) 250 Fat (gm) 0 Fluid (mL) 2,000 Fiber (gm) 0 % RDI: 76% Kcal; 98% AA. Goal #1 Provide at least 75% of energy /protein needs through Parenteral Feeding during LOS. Goal #2 Maintain body weight within +/ -3% of admission body weight during LOS. Follow-Up By: 10/20/21 Additional Comments Continue monitoring CPN tolerance and BM. BMP, Phos, Mg labs ordered.
[2021-10-20 12:04] LABS: Hematocrit 24.3 % (30.3-42.9); Hemoglobin 8.5 gm/dl (10.1-14.3); Mean Corpuscular HGB Conc 35 % (30-34); Mean Corpuscular Volume 86 fl (79-97); Platelet Count 481 K/mm3 (140-440); Red Blood Count 2.81 M/mm3 (3.65-5.03); Red Cell Distribution Width 16.8 % (13.2-15.2)
--- NOTE | 2021-10-20 12:09 | Progress Note ---
Assessment and Plan Postop day #6 status post colostomy creation with closure of abdomen. Patient is afebrile with low-grade intermittent tachycardia. Awaiting full return of bowel function. Encourage patient to work with PT to sit on side of the bed. Sputum culture positive for gram-negative rods. Patient is on appropriate antibiotics for sensitivity. Continue per ID. Creatinine has normalized she is making good urine output. Continue supportive care, and incentive spirometry. We will try low-dose Ativan prn to help with anxiety. I Postop day #9 status post colorectal anastomosis takedown, with abdominal washout and ABThera wound VAC. Postop day #17 status post laparoscopic converted to open left hemicolectomy with appendectomy for perforated appendicitis with fistulization to sigmoid colon. Subjective Date of service: 10/20/21 Narrative: No acute events overnight. During this interview patient says that she feels anxious, pain is controlled with pain medication and mostly in the midline under her incision. Patient did start to have enteric output out of her colostomy but no flatus as yet. Doss removed yesterday and replaced with pure wick catheter. Objective Vital Signs - 12hr 10/20/21 10/20/21 10/20/21 00:31 00:45 01:00 Temperature Pulse Rate 101 H 106 H 101 H Pulse Rate [ From Monitor] Respiratory 43 H 37 H Rate Blood Pressure 150/93 152/94 O2 Sat by Pulse 97 98 Oximetry 10/20/21 10/20/21 10/20/21 01:31 02:00 02:31 Temperature Pulse Rate 108 H 103 H 107 H Pulse Rate [ From Monitor] Respiratory 30 H 27 H 34 H Rate Blood Pressure 152/94 157/94 157/94 O2 Sat by Pulse 99 97 95 Oximetry 10/20/21 10/20/21 10/20/21 03:00 03:31 04:00 Temperature 99.0 F Pulse Rate 97 H 101 H 102 H Pulse Rate [ From Monitor] Respiratory 33 H 29 H 47 H Rate Blood Pressure 154/98 154/98 157/109 O2 Sat by Pulse 97 96 95 Oximetry 10/20/21 10/20/21 10/20/21 04:10 04:31 05:00 Temperature Pulse Rate 111 H 117 H 102 H Pulse Rate [ From Monitor] Respiratory 34 H 41 H Rate Blood Pressure 157/109 155/88 O2 Sat by Pulse 97 96 Oximetry 10/20/21 10/20/21 10/20/21 05:31 06:00 06:04 Temperature Pulse Rate 122 H 104 H Pulse Rate [ 106 H From Monitor] Respiratory 50 H 32 H 42 H Rate Blood Pressure 155/88 173/107 O2 Sat by Pulse 96 98 Oximetry 10/20/21 10/20/21 10/20/21 06:31 07:00 07:31 Temperature Pulse Rate 105 H 110 H 96 H Pulse Rate [ From Monitor] Respiratory 43 H 15 40 H Rate Blood Pressure 173/107 160/102 160/102 O2 Sat by Pulse 97 97 97 Oximetry 10/20/21 10/20/21 10/20/21 08:00 08:31 09:00 Temperature 98.4 F Pulse Rate 101 H 101 H 101 H Pulse Rate [ 107 H From Monitor] Respiratory 43 H 41 H 43 H Rate Blood Pressure 162/101 167/103 166/100 O2 Sat by Pulse 97 97 98 Oximetry 10/20/21 10/20/21 10/20/21 09:31 09:56 10:00 Temperature Pulse Rate 107 H 98 H 108 H Pulse Rate [ From Monitor] Respiratory 24 52 H Rate Blood Pressure 166/100 166/100 157/99 O2 Sat by Pulse 97 96 Oximetry - General physical appearance well developed, no distress, no pain - Respiratory other (Tachypneic with shallow breaths. Able to do incentive spirometry up to 1000.) - Abdomen soft, other (Midline incision clean dry and intact, colostomy pink with small amount of bilious drainage, appropriate tender to palpation, YURIDIA drain serous, left leg drain unchanged, NG tube 250 bilious) - Labs 10/19/21 04:23 10/19/21 04:23
[2021-10-20 12:21] LABS: BUN/Creatinine Ratio 25; Blood Urea Nitrogen 20 mg/dL (7-17); Calcium 7.7 mg/dL (8.4-10.2); Hemolysis Index 27
[2021-10-20] MEDS: LORazepam 2 MG/ML VIAL IV PRN ×2 (13:33→22:07)
--- NOTE | 2021-10-20 14:06 | Progress Note ---
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. she has a right and middle lobe infiltrate. ( possible aspiration) Keep patient strict NPO She is currently on Bactrim for positive tracheal aspirate with Stenotrophomonas. A dose of Furosemide was given. I will monitor her response to diuretic therapy, get an ABG May need NIPPV for work of breathing - continue to titrate supplemental oxygen to keep SPO2 88-90% -CXR , ABG as indicated -trend temperature curve, trend WCC -Antibiotics per ID. -NPO, TPN for nutritional support - continue bronchodilators with pulmonary hygiene per RT -Incentive spirometry; PT/OT, increase activity as tolerated - Accuchecks with glycemic control per SSI (While critically ill target blood glucose of 140-180 mg/dL; avoid hypoglycemia) - continue to avoid benzodiazepines, reduce the possibility of delirium - Maintenance of sleep-wake cycle, avoid delirium - Stress prophylaxis -VTE prophylaxis -Supportive transfusions, to keep HgB >7g/dL -Avoid nephrotoxins and dose all medications for GFR and CrCL - mobility, off loading and frequent turning to prevent pressure ulcer - Monitor hemodynamics closely - continue other care per attending / other consultants CONDITION: FAIR PROGNOSIS: GUARDED CODE STATUS: FULL CODE Subjective Date of service: 10/20/21 Principal diagnosis: BRYANNA Interval history: Patient is seen today for: Septic shock; AHRF; Anemia; Pneumonia (Aspiration); 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 Her sister is visiting a the bedside. Objective Vital Signs - 12hr 10/20/21 10/20/21 10/20/21 02:31 03:00 03:31 Temperature Pulse Rate 107 H 97 H 101 H Pulse Rate [ From Monitor] Respiratory 34 H 33 H 29 H Rate Blood Pressure 157/94 154/98 154/98 O2 Sat by Pulse 95 97 96 Oximetry 10/20/21 10/20/21 10/20/21 04:00 04:10 04:31 Temperature 99.0 F Pulse Rate 102 H 111 H 117 H Pulse Rate [ From Monitor] Respiratory 47 H 34 H Rate Blood Pressure 157/109 157/109 O2 Sat by Pulse 95 97 Oximetry 10/20/21 10/20/21 10/20/21 05:00 05:31 06:00 Temperature Pulse Rate 102 H 122 H 104 H Pulse Rate [ 106 H From Monitor] Respiratory 41 H 50 H 32 H Rate Blood Pressure 155/88 155/88 173/107 O2 Sat by Pulse 96 96 98 Oximetry 10/20/21 10/20/21 10/20/21 06:04 06:31 07:00 Temperature Pulse Rate 105 H 110 H Pulse Rate [ From Monitor] Respiratory 42 H 43 H 15 Rate Blood Pressure 173/107 160/102 O2 Sat by Pulse 97 97 Oximetry 10/20/21 10/20/21 10/20/21 07:31 08:00 08:31 Temperature 98.4 F Pulse Rate 96 H 101 H 101 H Pulse Rate [ 107 H From Monitor] Respiratory 40 H 43 H 41 H Rate Blood Pressure 160/102 162/101 167/103 O2 Sat by Pulse 97 97 97 Oximetry 10/20/21 10/20/21 10/20/21 09:00 09:31 09:56 Temperature Pulse Rate 101 H 107 H 98 H Pulse Rate [ From Monitor] Respiratory 43 H 24 Rate Blood Pressure 166/100 166/100 166/100 O2 Sat by Pulse 98 97 Oximetry 10/20/21 10/20/21 10/20/21 10:00 10:31 11:00 Temperature Pulse Rate 108 H 108 H 104 H Pulse Rate [ From Monitor] Respiratory 52 H 47 H 35 H Rate Blood Pressure 157/99 157/99 168/113 O2 Sat by Pulse 96 98 97 Oximetry 10/20/21 10/20/21 10/20/21 11:31 12:00 12:31 Temperature 99.3 F Pulse Rate 102 H 99 H 115 H Pulse Rate [ 110 H From Monitor] Respiratory 38 H 42 H 25 H Rate Blood Pressure 168/113 153/101 153/101 O2 Sat by Pulse 94 94 93 Oximetry 10/20/21 13:00 Temperature Pulse Rate 101 H Pulse Rate [ From Monitor] Respiratory 45 H Rate Blood Pressure 155/100 O2 Sat by Pulse 96 Oximetry Constitutional: no acute distress, alert, other Eyes: non-icteric ENT: oropharynx moist Neck: supple, other (RIJCVL) Effort: normal Ascultation: Bilateral: diminished breath sounds, rhonchi Percussion: Bilateral: not dull Cardiovascular: regular rate and rhythm, other (S1,S2) Gastrointestinal: hypoactive bowel sounds, other (YURIDIA drains, anterior abdominal dressings, Doss catheter) Integumentary: other (tatooed) Extremities: cool, edema Neurologic: normal mental status, non-focal exam, pupils equal and round, motor strength normal and Psychiatric: mood appropriate, affect normal CBC and BMP: 10/21/21 04:30 10/21/21 04:30 ABG, PT/INR, D-dimer: ABG ABG pH 7.466 pH Units (7.350-7.450) H 10/18/21 11:34 ABG pCO2 41.1 mm Hg 10/18/21 11:34 ABG pO2 90.6 mm Hg (80.0-90.0) H 10/18/21 11:34 ABG O2 Saturation 97.3 % (95.0-99.0) 10/18/21 11:34 PT/INR, D-dimer PT 19.0 Sec. (12.2-14.9) H 10/14/21 04:05 INR 1.41 (0.87-1.13) H 10/14/21 04:05 D-Dimer > 19985 ng/mlDDU (0-234) H 10/09/21 08:45 Abnormal lab findings: Abnormal Labs 09/24/21 09/24/21 09/24/21 14:49 14:58 14:58 WBC 32.4 H RBC Hgb Hct MCH MCHC RDW Plt Count 535 H Story # (Auto) Seg Neutrophils % Seg Neuts % (Manual) 82.0 H Lymphocytes % (Manual) 2.0 L Monocytes % (Manual) Nucleated RBC % Seg Neutrophils # Seg Neutrophils # Man 26.6 H Lymphocytes # (Manual) 0.6 L Monocytes # (Manual) 1.6 H PT INR D-Dimer ABG pH ABG pO2 ABG HCO3 ABG O2 Saturation ABG Base Excess ABG Hemoglobin Oxyhemoglobin Sodium 134 L Potassium 3.5 L Chloride 97.6 L Carbon Dioxide BUN Creatinine Glucose 119 H POC Glucose Lactic Acid Calcium Phosphorus Magnesium Ferritin ALT Lactate Dehydrogenase Total Creatine Kinase C-Reactive Protein Total Protein 6.1 L Albumin 3.3 L Urine Blood Urine WBC (Auto) U Epithel Cells (Auto) 18.0 H Crossmatch 09/25/21 09/25/21 09/26/21 05:47 05:47 04:20 WBC 25.4 H 23.6 H RBC 3.54 L Hgb Hct MCH MCHC RDW Plt Count 466 H 486 H Story # (Auto) Seg Neutrophils % Seg Neuts % (Manual) 93.0 H 86.0 H Lymphocytes % (Manual) 4.0 L 3.0 L Monocytes % (Manual) Nucleated RBC % Seg Neutrophils # Seg Neutrophils # Man 23.6 H 20.3 H Lymphocytes # (Manual) 1.0 L 0.7 L Monocytes # (Manual) 0.9 H PT INR D-Dimer ABG pH ABG pO2 ABG HCO3 ABG O2 Saturation ABG Base Excess ABG Hemoglobin Oxyhemoglobin Sodium 136 L Potassium 3.0 L Chloride Carbon Dioxide 21 L BUN Creatinine Glucose POC Glucose Lactic Acid Calcium 7.8 L Phosphorus Magnesium Ferritin ALT Lactate Dehydrogenase Total Creatine Kinase C-Reactive Protein Total Protein Albumin Urine Blood Urine WBC (Auto) U Epithel Cells (Auto) Crossmatch 09/26/21 09/27/21 09/27/21 04:20 08:28 08:28 WBC 20.6 H RBC 3.42 L Hgb 9.9 L Hct 29.5 L D MCH MCHC RDW Plt Count Story # (Auto) Seg Neutrophils % Seg Neuts % (Manual) 94.1 H Lymphocytes % (Manual) 1.0 L Monocytes % (Manual) Nucleated RBC % Seg Neutrophils # Seg Neutrophils # Man 19.4 H Lymphocytes # (Manual) 0.2 L Monocytes # (Manual) PT INR D-Dimer ABG pH ABG pO2 ABG HCO3 ABG O2 Saturation ABG Base Excess ABG Hemoglobin Oxyhemoglobin Sodium Potassium 3.2 L Chloride Carbon Dioxide 20 L BUN Creatinine Glucose 137 H POC Glucose Lactic Acid Calcium 8.3 L 8.2 L Phosphorus Magnesium Ferritin ALT Lactate Dehydrogenase Total Creatine Kinase C-Reactive Protein Total Protein Albumin Urine Blood Urine WBC (Auto) U Epithel Cells (Auto) Crossmatch 09/28/21 09/28/21 09/29/21 04:55 15:35 07:02 WBC 15.1 H 16.5 H RBC 3.34 L 3.20 L Hgb 9.3 L 9.1 L Hct 28.7 L 27.3 L MCH MCHC RDW 15.3 H Plt Count 444 H 469 H Story # (Auto) 0.9 H Seg Neutrophils % 89.3 H Seg Neuts % (Manual) 88.0 H 80.0 H Lymphocytes % (Manual) 9.0 L 8.0 L Monocytes % (Manual) Nucleated RBC % Seg Neutrophils # 14.0 H Seg Neutrophils # Man 13.3 H 13.2 H Lymphocytes # (Manual) Monocytes # (Manual) PT INR D-Dimer ABG pH ABG pO2 ABG HCO3 ABG O2 Saturation ABG Base Excess ABG Hemoglobin Oxyhemoglobin Sodium Potassium 3.3 L Chloride 109.4 H Carbon Dioxide 20 L BUN Creatinine 0.5 L Glucose POC Glucose Lactic Acid Calcium 7.9 L Phosphorus Magnesium Ferritin ALT Lactate Dehydrogenase Total Creatine Kinase C-Reactive Protein Total Protein Albumin Urine Blood Urine WBC (Auto) U Epithel Cells (Auto) Crossmatch 09/30/21 09/30/21 10/01/21 05:40 05:40 07:49 WBC 17.4 H 17.9 H RBC 3.37 L 3.32 L Hgb 9.2 L 9.3 L Hct 28.4 L 28.3 L MCH 27 L MCHC RDW 15.4 H 15.5 H Plt Count 530 H 604 H Story # (Auto) Seg Neutrophils % Seg Neuts % (Manual) 91.0 H 72.0 H Lymphocytes % (Manual) 9.0 L 1.0 L Monocytes % (Manual) 8.0 H Nucleated RBC % 1.0 H Seg Neutrophils # Seg Neutrophils # Man 15.8 H 12.9 H Lymphocytes # (Manual) 0.2 L Monocytes # (Manual) 1.4 H PT INR D-Dimer ABG pH ABG pO2 ABG HCO3 ABG O2 Saturation ABG Base Excess ABG Hemoglobin Oxyhemoglobin Sodium Potassium 3.5 L Chloride Carbon Dioxide 21 L BUN Creatinine 0.5 L Glucose POC Glucose Lactic Acid Calcium 8.0 L Phosphorus Magnesium Ferritin ALT Lactate Dehydrogenase Total Creatine Kinase C-Reactive Protein Total Protein Albumin Urine Blood Urine WBC (Auto) U Epithel Cells (Auto) Crossmatch 10/01/21 10/01/21 10/02/21 07:49 10:45 05:41 WBC 23.2 H RBC 2.90 L Hgb 7.9 L Hct 24.8 L MCH 27 L MCHC RDW 15.3 H Plt Count 621 H Story # (Auto) Seg Neutrophils % Seg Neuts % (Manual) 88.0 H Lymphocytes % (Manual) 2.0 L Monocytes % (Manual) Nucleated RBC % Seg Neutrophils # Seg Neutrophils # Man 20.4 H Lymphocytes # (Manual) 0.5 L Monocytes # (Manual) 1.4 H PT INR D-Dimer ABG pH ABG pO2 ABG HCO3 ABG O2 Saturation ABG Base Excess ABG Hemoglobin Oxyhemoglobin Sodium Potassium Chloride Carbon Dioxide 20 L BUN Creatinine 0.5 L Glucose POC Glucose Lactic Acid Calcium 7.6 L Phosphorus Magnesium Ferritin ALT Lactate Dehydrogenase Total Creatine Kinase C-Reactive Protein Total Protein Albumin Urine Blood Urine WBC (Auto) U Epithel Cells (Auto) Crossmatch See Detail 10/02/21 10/02/21 10/02/21 05:41 07:47 11:10 WBC RBC Hgb Hct MCH MCHC RDW Plt Count Story # (Auto) Seg Neutrophils % Seg Neuts % (Manual) Lymphocytes % (Manual) Monocytes % (Manual) Nucleated RBC % Seg Neutrophils # Seg Neutrophils # Man Lymphocytes # (Manual) Monocytes # (Manual) PT INR D-Dimer ABG pH ABG pO2 ABG HCO3 ABG O2 Saturation ABG Base Excess ABG Hemoglobin Oxyhemoglobin Sodium Potassium Chloride Carbon Dioxide BUN Creatinine Glucose 130 H POC Glucose 145 H 120 H Lactic Acid Calcium 6.9 L Phosphorus Magnesium Ferritin ALT Lactate Dehydrogenase Total Creatine Kinase C-Reactive Protein Total Protein Albumin Urine Blood Urine WBC (Auto) U Epithel Cells (Auto) Crossmatch 10/02/21 10/03/21 10/03/21 16:14 04:55 04:55 WBC 26.1 H RBC 2.31 L Hgb 6.3 L Hct 19.8 L* MCH MCHC RDW 15.9 H Plt Count 598 H Story # (Auto) Seg Neutrophils % Seg Neuts % (Manual) 82.0 H Lymphocytes % (Manual) 1.0 L Monocytes % (Manual) 10.0 H Nucleated RBC % Seg Neutrophils # Seg Neutrophils # Man 21.4 H Lymphocytes # (Manual) 0.3 L Monocytes # (Manual) 2.6 H PT INR D-Dimer ABG pH ABG pO2 ABG HCO3 ABG O2 Saturation ABG Base Excess ABG Hemoglobin Oxyhemoglobin Sodium Potassium Chloride Carbon Dioxide BUN 22 H Creatinine 1.7 H D Glucose 145 H POC Glucose 109 H Lactic Acid Calcium 6.4 L Phosphorus Magnesium 2.40 H Ferritin ALT Lactate Dehydrogenase Total Creatine Kinase C-Reactive Protein Total Protein 4.2 L Albumin 1.6 L Urine Blood Urine WBC (Auto) U Epithel Cells (Auto) Crossmatch 10/03/21 10/03/21 10/03/21 07:15 11:49 17:06 WBC RBC Hgb Hct MCH MCHC RDW Plt Count Story # (Auto) Seg Neutrophils % Seg Neuts % (Manual) Lymphocytes % (Manual) Monocytes % (Manual) Nucleated RBC % Seg Neutrophils # Seg Neutrophils # Man Lymphocytes # (Manual) Monocytes # (Manual) PT INR D-Dimer ABG pH ABG pO2 ABG HCO3 ABG O2 Saturation ABG Base Excess ABG Hemoglobin Oxyhemoglobin Sodium Potassium Chloride Carbon Dioxide BUN Creatinine Glucose POC Glucose 162 H 171 H 174 H Lactic Acid Calcium Phosphorus Magnesium Ferritin ALT Lactate Dehydrogenase Total Creatine Kinase C-Reactive Protein Total Protein Albumin Urine Blood Urine WBC (Auto) U Epithel Cells (Auto) Crossmatch 10/03/21 10/04/21 10/04/21 23:31 04:44 04:44 WBC 26.4 H RBC 2.33 L Hgb 6.6 L Hct 19.4 L* MCH MCHC RDW 16.1 H Plt Count 602 H Story # (Auto) Seg Neutrophils % Seg Neuts % (Manual) 80.0 H Lymphocytes % (Manual) 5.0 L Monocytes % (Manual) Nucleated RBC % Seg Neutrophils # Seg Neutrophils # Man 21.1 H Lymphocytes # (Manual) Monocytes # (Manual) 1.8 H PT INR D-Dimer ABG pH ABG pO2 ABG HCO3 ABG O2 Saturation ABG Base Excess ABG Hemoglobin Oxyhemoglobin Sodium 135 L Potassium 3.4 L Chloride Carbon Dioxide 21 L BUN 28 H Creatinine 2.0 H Glucose 171 H POC Glucose 179 H Lactic Acid Calcium 6.7 L Phosphorus 1.30 L D Magnesium 2.40 H Ferritin ALT Lactate Dehydrogenase Total Creatine Kinase C-Reactive Protein Total Protein Albumin Urine Blood Urine WBC (Auto) U Epithel Cells (Auto) Crossmatch 10/04/21 10/04/21 10/04/21 05:25 12:01 13:30 WBC RBC Hgb Hct MCH MCHC RDW Plt Count Story # (Auto) Seg Neutrophils % Seg Neuts % (Manual) Lymphocytes % (Manual) Monocytes % (Manual) Nucleated RBC % Seg Neutrophils # Seg Neutrophils # Man Lymphocytes # (Manual) Monocytes # (Manual) PT INR D-Dimer ABG pH ABG pO2 ABG HCO3 ABG O2 Saturation ABG Base Excess ABG Hemoglobin Oxyhemoglobin Sodium Potassium Chloride Carbon Dioxide BUN Creatinine Glucose POC Glucose 174 H 172 H Lactic Acid Calcium Phosphorus Magnesium Ferritin ALT Lactate Dehydrogenase Total Creatine Kinase C-Reactive Protein Total Protein Albumin Urine Blood Urine WBC (Auto) U Epithel Cells (Auto) Crossmatch See Detail 10/04/21 10/04/21 10/04/21 16:47 20:28 22:23 WBC RBC Hgb 8.5 L Hct 25.1 L MCH MCHC RDW Plt Count Story # (Auto) Seg Neutrophils % Seg Neuts % (Manual) Lymphocytes % (Manual) Monocytes % (Manual) Nucleated RBC % Seg Neutrophils # Seg Neutrophils # Man Lymphocytes # (Manual) Monocytes # (Manual) PT INR D-Dimer ABG pH ABG pO2 ABG HCO3 ABG O2 Saturation ABG Base Excess ABG Hemoglobin Oxyhemoglobin Sodium Potassium Chloride Carbon Dioxide BUN Creatinine Glucose POC Glucose 135 H 152 H Lactic Acid Calcium Phosphorus Magnesium Ferritin ALT Lactate Dehydrogenase Total Creatine Kinase C-Reactive Protein Total Protein Albumin Urine Blood Urine WBC (Auto) U Epithel Cells (Auto) Crossmatch 10/05/21 10/05/21 10/05/21 04:40 04:40 04:40 WBC 24.7 H RBC 3.02 L Hgb 8.4 L Hct 25.5 L MCH MCHC RDW 16.2 H Plt Count 644 H Story # (Auto) Seg Neutrophils % Seg Neuts % (Manual) 91.0 H Lymphocytes % (Manual) 7.0 L Monocytes % (Manual) Nucleated RBC % Seg Neutrophils # Seg Neutrophils # Man 22.5 H Lymphocytes # (Manual) Monocytes # (Manual) PT 17.8 H INR 1.31 H D-Dimer ABG pH ABG pO2 ABG HCO3 ABG O2 Saturation ABG Base Excess ABG Hemoglobin Oxyhemoglobin Sodium 135 L Potassium Chloride Carbon Dioxide BUN 29 H Creatinine 2.1 H Glucose 156 H POC Glucose Lactic Acid Calcium 7.6 L Phosphorus 1.90 L D Magnesium Ferritin ALT Lactate Dehydrogenase Total Creatine Kinase C-Reactive Protein Total Protein 5.2 L D Albumin 1.8 L Urine Blood Urine WBC (Auto) U Epithel Cells (Auto) Crossmatch 10/05/21 10/05/21 10/05/21 05:08 18:17 23:37 WBC RBC Hgb Hct MCH MCHC RDW Plt Count Story # (Auto) Seg Neutrophils % Seg Neuts % (Manual) Lymphocytes % (Manual) Monocytes % (Manual) Nucleated RBC % Seg Neutrophils # Seg Neutrophils # Man Lymphocytes # (Manual) Monocytes # (Manual) PT INR D-Dimer ABG pH ABG pO2 ABG HCO3 ABG O2 Saturation ABG Base Excess ABG Hemoglobin Oxyhemoglobin Sodium Potassium Chloride Carbon Dioxide BUN Creatinine Glucose POC Glucose 156 H 119 H 130 H Lactic Acid Calcium Phosphorus Magnesium Ferritin ALT Lactate Dehydrogenase Total Creatine Kinase C-Reactive Protein Total Protein Albumin Urine Blood Urine WBC (Auto) U Epithel Cells (Auto) Crossmatch 10/06/21 10/06/21 10/06/21 04:27 05:27 05:27 WBC 23.4 H RBC 2.84 L Hgb 7.8 L Hct 23.9 L MCH MCHC RDW 16.2 H Plt Count 712 H Story # (Auto) Seg Neutrophils % Seg Neuts % (Manual) Lymphocytes % (Manual) Monocytes % (Manual) Nucleated RBC % Seg Neutrophils # Seg Neutrophils # Man Lymphocytes # (Manual) Monocytes # (Manual) PT INR D-Dimer ABG pH ABG pO2 ABG HCO3 ABG O2 Saturation ABG Base Excess ABG Hemoglobin Oxyhemoglobin Sodium 134 L Potassium Chloride Carbon Dioxide 20 L BUN 28 H Creatinine 1.9 H Glucose 132 H POC Glucose 132 H Lactic Acid Calcium 7.8 L Phosphorus Magnesium Ferritin ALT Lactate Dehydrogenase Total Creatine Kinase 242 H C-Reactive Protein Total Protein Albumin Urine Blood Urine WBC (Auto) U Epithel Cells (Auto) Crossmatch 10/06/21 10/06/21 10/06/21 16:40 20:50 23:39 WBC RBC Hgb Hct MCH MCHC RDW Plt Count Story # (Auto) Seg Neutrophils % Seg Neuts % (Manual) Lymphocytes % (Manual) Monocytes % (Manual) Nucleated RBC % Seg Neutrophils # Seg Neutrophils # Man Lymphocytes # (Manual) Monocytes # (Manual) PT INR D-Dimer ABG pH ABG pO2 ABG HCO3 ABG O2 Saturation ABG Base Excess ABG Hemoglobin Oxyhemoglobin Sodium Potassium Chloride Carbon Dioxide BUN Creatinine Glucose POC Glucose 133 H 116 H 132 H Lactic Acid Calcium Phosphorus Magnesium Ferritin ALT Lactate Dehydrogenase Total Creatine Kinase C-Reactive Protein Total Protein Albumin Urine Blood Urine WBC (Auto) U Epithel Cells (Auto) Crossmatch 10/07/21 10/07/21 10/07/21 05:09 05:13 09:43 WBC 22.3 H RBC 2.81 L Hgb 7.8 L Hct 24.0 L MCH MCHC RDW 16.5 H Plt Count 733 H Story # (Auto) Seg Neutrophils % Seg Neuts % (Manual) 85.0 H Lymphocytes % (Manual) 1.0 L Monocytes % (Manual) Nucleated RBC % Seg Neutrophils # Seg Neutrophils # Man 19.0 H Lymphocytes # (Manual) 0.2 L Monocytes # (Manual) 1.6 H PT INR D-Dimer ABG pH ABG pO2 ABG HCO3 ABG O2 Saturation ABG Base Excess ABG Hemoglobin Oxyhemoglobin Sodium 136 L Potassium Chloride Carbon Dioxide 20 L BUN 29 H Creatinine 1.9 H Glucose 140 H POC Glucose 139 H Lactic Acid Calcium 7.6 L Phosphorus Magnesium Ferritin ALT Lactate Dehydrogenase Total Creatine Kinase C-Reactive Protein Total Protein Albumin Urine Blood Urine WBC (Auto) U Epithel Cells (Auto) Crossmatch 10/07/21 10/07/21 10/08/21 11:38 17:44 00:20 WBC RBC Hgb Hct MCH MCHC RDW Plt Count Story # (Auto) Seg Neutrophils % Seg Neuts % (Manual) Lymphocytes % (Manual) Monocytes % (Manual) Nucleated RBC % Seg Neutrophils # Seg Neutrophils # Man Lymphocytes # (Manual) Monocytes # (Manual) PT INR D-Dimer ABG pH ABG pO2 ABG HCO3 ABG O2 Saturation ABG Base Excess ABG Hemoglobin Oxyhemoglobin Sodium Potassium Chloride Carbon Dioxide BUN Creatinine Glucose POC Glucose 126 H 113 H 129 H Lactic Acid Calcium Phosphorus Magnesium Ferritin ALT Lactate Dehydrogenase Total Creatine Kinase C-Reactive Protein Total Protein Albumin Urine Blood Urine WBC (Auto) U Epithel Cells (Auto) Crossmatch 10/08/21 10/08/21 10/08/21 05:26 05:26 05:29 WBC 21.8 H RBC 2.84 L Hgb 7.8 L Hct 24.1 L MCH 27 L MCHC RDW 16.5 H Plt Count 789 H Story # (Auto) Seg Neutrophils % Seg Neuts % (Manual) Lymphocytes % (Manual) Monocytes % (Manual) Nucleated RBC % Seg Neutrophils # Seg Neutrophils # Man Lymphocytes # (Manual) Monocytes # (Manual) PT INR D-Dimer ABG pH ABG pO2 ABG HCO3 ABG O2 Saturation ABG Base Excess ABG Hemoglobin Oxyhemoglobin Sodium 136 L Potassium Chloride Carbon Dioxide 20 L BUN 31 H Creatinine 1.7 H Glucose 134 H POC Glucose 123 H Lactic Acid Calcium 7.9 L Phosphorus 4.60 H D Magnesium Ferritin ALT Lactate Dehydrogenase Total Creatine Kinase C-Reactive Protein Total Protein Albumin Urine Blood Urine WBC (Auto) U Epithel Cells (Auto) Crossmatch 10/08/21 10/08/21 10/08/21 11:53 17:07 20:08 WBC RBC Hgb Hct MCH MCHC RDW Plt Count Story # (Auto) Seg Neutrophils % Seg Neuts % (Manual) Lymphocytes % (Manual) Monocytes % (Manual) Nucleated RBC % Seg Neutrophils # Seg Neutrophils # Man Lymphocytes # (Manual) Monocytes # (Manual) PT INR D-Dimer ABG pH 7.308 L ABG pO2 40.2 L ABG HCO3 15.7 L ABG O2 Saturation 68 L ABG Base Excess -9.6 L ABG Hemoglobin 9.7 L Oxyhemoglobin 67.8 L Sodium Potassium Chloride Carbon Dioxide BUN Creatinine Glucose POC Glucose 128 H 139 H Lactic Acid Calcium Phosphorus Magnesium Ferritin ALT Lactate Dehydrogenase Total Creatine Kinase C-Reactive Protein Total Protein Albumin Urine Blood Urine WBC (Auto) U Epithel Cells (Auto) Crossmatch 10/08/21 10/08/21 10/08/21 21:30 22:55 22:55 WBC RBC Hgb Hct MCH MCHC RDW Plt Count Story # (Auto) Seg Neutrophils % Seg Neuts % (Manual) Lymphocytes % (Manual) Monocytes % (Manual) Nucleated RBC % Seg Neutrophils # Seg Neutrophils # Man Lymphocytes # (Manual) Monocytes # (Manual) PT INR D-Dimer ABG pH ABG pO2 43.8 L ABG HCO3 19.5 L ABG O2 Saturation 70.7 L ABG Base Excess -5.3 L ABG Hemoglobin 8.6 L Oxyhemoglobin 69.4 L Sodium Potassium Chloride Carbon Dioxide BUN Creatinine Glucose POC Glucose Lactic Acid 2.50 H* Calcium Phosphorus Magnesium Ferritin ALT Lactate Dehydrogenase Total Creatine Kinase C-Reactive Protein Total Protein Albumin Urine Blood Urine WBC (Auto) U Epithel Cells (Auto) Crossmatch See Detail 10/09/21 10/09/21 10/09/21 03:12 05:31 05:31 WBC 20.3 H RBC 2.70 L Hgb 7.4 L Hct 23.1 L MCH 27 L MCHC RDW 16.6 H Plt Count 786 H Story # (Auto) Seg Neutrophils % Seg Neuts % (Manual) 88.0 H Lymphocytes % (Manual) 3.0 L Monocytes % (Manual) Nucleated RBC % Seg Neutrophils # Seg Neutrophils # Man 17.9 H Lymphocytes # (Manual) 0.6 L Monocytes # (Manual) 1.2 H PT INR D-Dimer ABG pH ABG pO2 ABG HCO3 ABG O2 Saturation ABG Base Excess ABG Hemoglobin Oxyhemoglobin Sodium 136 L Potassium Chloride Carbon Dioxide 20 L BUN 32 H Creatinine 1.5 H Glucose 214 H POC Glucose 190 H Lactic Acid Calcium 7.5 L Phosphorus Magnesium Ferritin ALT Lactate Dehydrogenase Total Creatine Kinase C-Reactive Protein Total Protein 5.8 L Albumin 2.3 L Urine Blood Urine WBC (Auto) U Epithel Cells (Auto) Crossmatch 10/09/21 10/09/21 10/09/21 05:31 05:31 05:31 WBC RBC Hgb Hct MCH MCHC RDW Plt Count Story # (Auto) Seg Neutrophils % Seg Neuts % (Manual) Lymphocytes % (Manual) Monocytes % (Manual) Nucleated RBC % Seg Neutrophils # Seg Neutrophils # Man Lymphocytes # (Manual) Monocytes # (Manual) PT INR D-Dimer ABG pH ABG pO2 ABG HCO3 ABG O2 Saturation ABG Base Excess ABG Hemoglobin Oxyhemoglobin Sodium Potassium Chloride Carbon Dioxide BUN Creatinine Glucose POC Glucose Lactic Acid 2.20 H* Calcium Phosphorus Magnesium Ferritin 751.9 H ALT Lactate Dehydrogenase Total Creatine Kinase C-Reactive Protein 15.90 H Total Protein Albumin Urine Blood Urine WBC (Auto) U Epithel Cells (Auto) Crossmatch 10/09/21 10/09/21 10/09/21 05:31 08:45 12:08 WBC RBC Hgb Hct MCH MCHC RDW Plt Count Story # (Auto) Seg Neutrophils % Seg Neuts % (Manual) Lymphocytes % (Manual) Monocytes % (Manual) Nucleated RBC % Seg Neutrophils # Seg Neutrophils # Man Lymphocytes # (Manual) Monocytes # (Manual) PT INR D-Dimer > 01820 H ABG pH ABG pO2 54.3 L ABG HCO3 ABG O2 Saturation 86.6 L ABG Base Excess -2.6 L ABG Hemoglobin 7.2 L Oxyhemoglobin 85.3 L Sodium Potassium Chloride Carbon Dioxide BUN Creatinine Glucose POC Glucose Lactic Acid Calcium Phosphorus Magnesium Ferritin ALT Lactate Dehydrogenase 472 H Total Creatine Kinase C-Reactive Protein Total Protein Albumin Urine Blood Urine WBC (Auto) U Epithel Cells (Auto) Crossmatch 10/09/21 10/09/21 10/10/21 12:19 17:43 00:30 WBC RBC Hgb Hct MCH MCHC RDW Plt Count Story # (Auto) Seg Neutrophils % Seg Neuts % (Manual) Lymphocytes % (Manual) Monocytes % (Manual) Nucleated RBC % Seg Neutrophils # Seg Neutrophils # Man Lymphocytes # (Manual) Monocytes # (Manual) PT INR D-Dimer ABG pH ABG pO2 ABG HCO3 ABG O2 Saturation ABG Base Excess ABG Hemoglobin Oxyhemoglobin Sodium Potassium Chloride Carbon Dioxide BUN Creatinine Glucose POC Glucose 151 H 136 H 132 H Lactic Acid Calcium Phosphorus Magnesium Ferritin ALT Lactate Dehydrogenase Total Creatine Kinase C-Reactive Protein Total Protein Albumin Urine Blood Urine WBC (Auto) U Epithel Cells (Auto) Crossmatch 10/10/21 10/10/21 10/10/21 04:10 04:10 05:41 WBC 20.8 H RBC 2.54 L Hgb 7.1 L Hct 21.8 L MCH MCHC RDW 16.6 H Plt Count 740 H Story # (Auto) Seg Neutrophils % Seg Neuts % (Manual) Lymphocytes % (Manual) Monocytes % (Manual) Nucleated RBC % Seg Neutrophils # Seg Neutrophils # Man Lymphocytes # (Manual) Monocytes # (Manual) PT INR D-Dimer ABG pH ABG pO2 ABG HCO3 ABG O2 Saturation ABG Base Excess ABG Hemoglobin Oxyhemoglobin Sodium 130 L Potassium Chloride 97.9 L Carbon Dioxide 19 L BUN 37 H Creatinine 1.4 H Glucose 181 H POC Glucose 150 H Lactic Acid Calcium 7.8 L Phosphorus Magnesium Ferritin ALT Lactate Dehydrogenase Total Creatine Kinase C-Reactive Protein Total Protein Albumin Urine Blood Urine WBC (Auto) U Epithel Cells (Auto) Crossmatch 10/10/21 10/10/21 10/10/21 11:10 16:00 23:50 WBC RBC Hgb Hct MCH MCHC RDW Plt Count Story # (Auto) Seg Neutrophils % Seg Neuts % (Manual) Lymphocytes % (Manual) Monocytes % (Manual) Nucleated RBC % Seg Neutrophils # Seg Neutrophils # Man Lymphocytes # (Manual) Monocytes # (Manual) PT INR D-Dimer ABG pH ABG pO2 ABG HCO3 ABG O2 Saturation ABG Base Excess ABG Hemoglobin Oxyhemoglobin Sodium Potassium Chloride Carbon Dioxide BUN Creatinine Glucose POC Glucose 136 H 151 H 129 H Lactic Acid Calcium Phosphorus Magnesium Ferritin ALT Lactate Dehydrogenase Total Creatine Kinase C-Reactive Protein Total Protein Albumin Urine Blood Urine WBC (Auto) U Epithel Cells (Auto) Crossmatch 10/10/21 10/11/21 10/11/21 Unknown 03:30 03:30 WBC 23.2 H RBC 2.39 L Hgb 6.7 L Hct 20.3 L MCH MCHC RDW 16.7 H Plt Count 701 H Story # (Auto) Seg Neutrophils % Seg Neuts % (Manual) Lymphocytes % (Manual) Monocytes % (Manual) Nucleated RBC % Seg Neutrophils # Seg Neutrophils # Man Lymphocytes # (Manual) Monocytes # (Manual) PT INR D-Dimer ABG pH 7.505 H ABG pO2 246.1 H ABG HCO3 ABG O2 Saturation 99.4 H ABG Base Excess ABG Hemoglobin 6.0 L Oxyhemoglobin Sodium 135 L Potassium Chloride Carbon Dioxide 20 L BUN 38 H Creatinine 1.6 H Glucose 118 H POC Glucose Lactic Acid Calcium 7.9 L Phosphorus Magnesium Ferritin ALT Lactate Dehydrogenase Total Creatine Kinase C-Reactive Protein Total Protein Albumin Urine Blood Urine WBC (Auto) U Epithel Cells (Auto) Crossmatch 10/11/21 10/11/21 10/12/21 11:41 17:51 00:18 WBC RBC Hgb Hct MCH MCHC RDW Plt Count Story # (Auto) Seg Neutrophils % Seg Neuts % (Manual) Lymphocytes % (Manual) Monocytes % (Manual) Nucleated RBC % Seg Neutrophils # Seg Neutrophils # Man Lymphocytes # (Manual) Monocytes # (Manual) PT INR D-Dimer ABG pH ABG pO2 ABG HCO3 ABG O2 Saturation ABG Base Excess ABG Hemoglobin Oxyhemoglobin Sodium Potassium Chloride Carbon Dioxide BUN Creatinine Glucose POC Glucose 128 H 138 H 174 H Lactic Acid Calcium Phosphorus Magnesium Ferritin ALT Lactate Dehydrogenase Total Creatine Kinase C-Reactive Protein Total Protein Albumin Urine Blood Urine WBC (Auto) U Epithel Cells (Auto) Crossmatch 10/12/21 10/12/21 10/12/21 05:39 06:02 06:02 WBC 19.1 H RBC 3.56 L Hgb 10.0 L D Hct MCH MCHC RDW 17.0 H Plt Count 712 H Story # (Auto) Seg Neutrophils % Seg Neuts % (Manual) Lymphocytes % (Manual) Monocytes % (Manual) Nucleated RBC % Seg Neutrophils # Seg Neutrophils # Man Lymphocytes # (Manual) Monocytes # (Manual) PT INR D-Dimer ABG pH ABG pO2 ABG HCO3 ABG O2 Saturation ABG Base Excess ABG Hemoglobin Oxyhemoglobin Sodium Potassium Chloride Carbon Dioxide BUN 37 H Creatinine 1.5 H Glucose 172 H POC Glucose 158 H Lactic Acid Calcium 8.1 L Phosphorus Magnesium Ferritin ALT Lactate Dehydrogenase Total Creatine Kinase C-Reactive Protein Total Protein Albumin Urine Blood Urine WBC (Auto) U Epithel Cells (Auto) Crossmatch 10/12/21 10/12/21 10/12/21 06:02 06:05 17:43 WBC RBC Hgb Hct MCH MCHC RDW Plt Count Story # (Auto) Seg Neutrophils % Seg Neuts % (Manual) Lymphocytes % (Manual) Monocytes % (Manual) Nucleated RBC % Seg Neutrophils # Seg Neutrophils # Man Lymphocytes # (Manual) Monocytes # (Manual) PT 17.1 H INR 1.24 H D-Dimer ABG pH ABG pO2 ABG HCO3 ABG O2 Saturation ABG Base Excess ABG Hemoglobin Oxyhemoglobin Sodium Potassium Chloride Carbon Dioxide BUN Creatinine Glucose POC Glucose 173 H Lactic Acid Calcium Phosphorus Magnesium Ferritin ALT Lactate Dehydrogenase Total Creatine Kinase C-Reactive Protein Total Protein Albumin Urine Blood Urine WBC (Auto) U Epithel Cells (Auto) Crossmatch See Detail 10/12/21 10/12/21 10/13/21 23:28 Unknown 04:05 WBC RBC Hgb 10.0 L Hct MCH MCHC RDW Plt Count Story # (Auto) Seg Neutrophils % Seg Neuts % (Manual) Lymphocytes % (Manual) Monocytes % (Manual) Nucleated RBC % Seg Neutrophils # Seg Neutrophils # Man Lymphocytes # (Manual) Monocytes # (Manual) PT INR D-Dimer ABG pH ABG pO2 ABG HCO3 ABG O2 Saturation ABG Base Excess ABG Hemoglobin Oxyhemoglobin Sodium Potassium Chloride Carbon Dioxide BUN 34 H Creatinine Glucose 200 H POC Glucose 178 H Lactic Acid Calcium 7.5 L Phosphorus Magnesium 1.60 L Ferritin ALT Lactate Dehydrogenase Total Creatine Kinase C-Reactive Protein Total Protein Albumin Urine Blood Urine WBC (Auto) U Epithel Cells (Auto) Crossmatch 10/13/21 10/13/21 10/13/21 05:09 10:55 13:34 WBC 23.8 H RBC 3.14 L Hgb 9.2 L Hct 27.7 L MCH MCHC RDW 17.5 H Plt Count 572 H Story # (Auto) Seg Neutrophils % Seg Neuts % (Manual) Lymphocytes % (Manual) Monocytes % (Manual) Nucleated RBC % Seg Neutrophils # Seg Neutrophils # Man Lymphocytes # (Manual) Monocytes # (Manual) PT INR D-Dimer ABG pH ABG pO2 ABG HCO3 ABG O2 Saturation ABG Base Excess ABG Hemoglobin Oxyhemoglobin Sodium Potassium Chloride Carbon Dioxide BUN Creatinine Glucose POC Glucose 210 H 168 H Lactic Acid Calcium Phosphorus Magnesium Ferritin ALT Lactate Dehydrogenase Total Creatine Kinase C-Reactive Protein Total Protein Albumin Urine Blood Urine WBC (Auto) U Epithel Cells (Auto) Crossmatch 10/13/21 10/13/21 10/14/21 15:35 23:10 04:05 WBC 19.4 H RBC 2.98 L Hgb 8.4 L Hct 26.3 L MCH MCHC RDW 17.1 H Plt Count 561 H Story # (Auto) Seg Neutrophils % Seg Neuts % (Manual) Lymphocytes % (Manual) Monocytes % (Manual) Nucleated RBC % Seg Neutrophils # Seg Neutrophils # Man Lymphocytes # (Manual) Monocytes # (Manual) PT INR D-Dimer ABG pH ABG pO2 ABG HCO3 ABG O2 Saturation ABG Base Excess ABG Hemoglobin Oxyhemoglobin Sodium Potassium Chloride Carbon Dioxide BUN Creatinine Glucose POC Glucose 154 H 135 H Lactic Acid Calcium Phosphorus Magnesium Ferritin ALT Lactate Dehydrogenase Total Creatine Kinase C-Reactive Protein Total Protein Albumin Urine Blood Urine WBC (Auto) U Epithel Cells (Auto) Crossmatch 10/14/21 10/14/21 10/14/21 04:05 04:05 05:08 WBC RBC Hgb Hct MCH MCHC RDW Plt Count Story # (Auto) Seg Neutrophils % Seg Neuts % (Manual) Lymphocytes % (Manual) Monocytes % (Manual) Nucleated RBC % Seg Neutrophils # Seg Neutrophils # Man Lymphocytes # (Manual) Monocytes # (Manual) PT 19.0 H INR 1.41 H D-Dimer ABG pH ABG pO2 ABG HCO3 ABG O2 Saturation ABG Base Excess ABG Hemoglobin Oxyhemoglobin Sodium Potassium Chloride Carbon Dioxide BUN 33 H Creatinine Glucose 310 H POC Glucose 178 H Lactic Acid Calcium 7.4 L Phosphorus Magnesium Ferritin ALT Lactate Dehydrogenase Total Creatine Kinase C-Reactive Protein Total Protein Albumin Urine Blood Urine WBC (Auto) U Epithel Cells (Auto) Crossmatch 10/14/21 10/14/21 10/14/21 09:29 10:45 11:40 WBC RBC Hgb Hct MCH MCHC RDW Plt Count Story # (Auto) Seg Neutrophils % Seg Neuts % (Manual) Lymphocytes % (Manual) Monocytes % (Manual) Nucleated RBC % Seg Neutrophils # Seg Neutrophils # Man Lymphocytes # (Manual) Monocytes # (Manual) PT INR D-Dimer ABG pH 7.342 L ABG pO2 96.0 H ABG HCO3 26.2 H ABG O2 Saturation ABG Base Excess ABG Hemoglobin 6.1 L Oxyhemoglobin 94.9 L Sodium Potassium Chloride Carbon Dioxide BUN Creatinine Glucose POC Glucose 155 H 137 H Lactic Acid Calcium Phosphorus Magnesium Ferritin ALT Lactate Dehydrogenase Total Creatine Kinase C-Reactive Protein Total Protein Albumin Urine Blood Urine WBC (Auto) U Epithel Cells (Auto) Crossmatch 10/14/21 10/14/21 10/14/21 15:40 21:21 23:46 WBC RBC Hgb Hct MCH MCHC RDW Plt Count Story # (Auto) Seg Neutrophils % Seg Neuts % (Manual) Lymphocytes % (Manual) Monocytes % (Manual) Nucleated RBC % Seg Neutrophils # Seg Neutrophils # Man Lymphocytes # (Manual) Monocytes # (Manual) PT INR D-Dimer ABG pH ABG pO2 ABG HCO3 ABG O2 Saturation ABG Base Excess ABG Hemoglobin Oxyhemoglobin Sodium Potassium Chloride Carbon Dioxide BUN Creatinine Glucose POC Glucose 140 H 111 H 164 H Lactic Acid Calcium Phosphorus Magnesium Ferritin ALT Lactate Dehydrogenase Total Creatine Kinase C-Reactive Protein Total Protein Albumin Urine Blood Urine WBC (Auto) U Epithel Cells (Auto) Crossmatch 10/15/21 10/15/21 10/15/21 05:06 05:40 05:40 WBC 22.7 H RBC 2.94 L Hgb 8.7 L Hct 25.8 L MCH MCHC RDW 17.2 H Plt Count 620 H Story # (Auto) Seg Neutrophils % Seg Neuts % (Manual) Lymphocytes % (Manual) Monocytes % (Manual) Nucleated RBC % Seg Neutrophils # Seg Neutrophils # Man Lymphocytes # (Manual) Monocytes # (Manual) PT INR D-Dimer ABG pH ABG pO2 ABG HCO3 ABG O2 Saturation ABG Base Excess ABG Hemoglobin Oxyhemoglobin Sodium Potassium Chloride Carbon Dioxide BUN 30 H Creatinine Glucose 175 H POC Glucose 155 H Lactic Acid Calcium 7.4 L Phosphorus Magnesium Ferritin ALT Lactate Dehydrogenase Total Creatine Kinase C-Reactive Protein Total Protein Albumin Urine Blood Urine WBC (Auto) U Epithel Cells (Auto) Crossmatch 10/15/21 10/15/21 10/15/21 11:32 17:23 23:35 WBC RBC Hgb Hct MCH MCHC RDW Plt Count Story # (Auto) Seg Neutrophils % Seg Neuts % (Manual) Lymphocytes % (Manual) Monocytes % (Manual) Nucleated RBC % Seg Neutrophils # Seg Neutrophils # Man Lymphocytes # (Manual) Monocytes # (Manual) PT INR D-Dimer ABG pH ABG pO2 ABG HCO3 ABG O2 Saturation ABG Base Excess ABG Hemoglobin Oxyhemoglobin Sodium Potassium Chloride Carbon Dioxide BUN Creatinine Glucose POC Glucose 157 H 136 H 143 H Lactic Acid Calcium Phosphorus Magnesium Ferritin ALT Lactate Dehydrogenase Total Creatine Kinase C-Reactive Protein Total Protein Albumin Urine Blood Urine WBC (Auto) U Epithel Cells (Auto) Crossmatch 10/16/21 10/16/21 10/16/21 04:00 04:00 05:08 WBC 18.0 H RBC 2.80 L Hgb 8.0 L Hct 24.7 L MCH MCHC RDW 17.4 H Plt Count 543 H Story # (Auto) Seg Neutrophils % Seg Neuts % (Manual) Lymphocytes % (Manual) Monocytes % (Manual) Nucleated RBC % Seg Neutrophils # Seg Neutrophils # Man Lymphocytes # (Manual) Monocytes # (Manual) PT INR D-Dimer ABG pH ABG pO2 ABG HCO3 ABG O2 Saturation ABG Base Excess ABG Hemoglobin Oxyhemoglobin Sodium Potassium Chloride Carbon Dioxide BUN 31 H Creatinine Glucose 153 H POC Glucose 149 H Lactic Acid Calcium 8.0 L Phosphorus Magnesium Ferritin ALT Lactate Dehydrogenase Total Creatine Kinase C-Reactive Protein Total Protein 5.5 L Albumin 1.9 L Urine Blood Urine WBC (Auto) U Epithel Cells (Auto) Crossmatch 10/16/21 10/16/21 10/16/21 11:45 17:37 23:48 WBC RBC Hgb Hct MCH MCHC RDW Plt Count Story # (Auto) Seg Neutrophils % Seg Neuts % (Manual) Lymphocytes % (Manual) Monocytes % (Manual) Nucleated RBC % Seg Neutrophils # Seg Neutrophils # Man Lymphocytes # (Manual) Monocytes # (Manual) PT INR D-Dimer ABG pH ABG pO2 ABG HCO3 ABG O2 Saturation ABG Base Excess ABG Hemoglobin Oxyhemoglobin Sodium Potassium Chloride Carbon Dioxide BUN Creatinine Glucose POC Glucose 144 H 130 H 134 H Lactic Acid Calcium Phosphorus Magnesium Ferritin ALT Lactate Dehydrogenase Total Creatine Kinase C-Reactive Protein Total Protein Albumin Urine Blood Urine WBC (Auto) U Epithel Cells (Auto) Crossmatch 10/17/21 10/17/21 10/17/21 04:00 04:00 05:37 WBC 14.0 H RBC 2.46 L Hgb 7.2 L Hct 21.7 L MCH MCHC RDW 17.4 H Plt Count 526 H Story # (Auto) Seg Neutrophils % Seg Neuts % (Manual) Lymphocytes % (Manual) Monocytes % (Manual) Nucleated RBC % Seg Neutrophils # Seg Neutrophils # Man Lymphocytes # (Manual) Monocytes # (Manual) PT INR D-Dimer ABG pH ABG pO2 ABG HCO3 ABG O2 Saturation ABG Base Excess ABG Hemoglobin Oxyhemoglobin Sodium Potassium Chloride Carbon Dioxide BUN 29 H Creatinine Glucose 138 H POC Glucose 137 H Lactic Acid Calcium 7.5 L Phosphorus Magnesium Ferritin ALT Lactate Dehydrogenase Total Creatine Kinase C-Reactive Protein Total Protein Albumin Urine Blood Urine WBC (Auto) U Epithel Cells (Auto) Crossmatch 10/17/21 10/17/21 10/17/21 11:45 12:50 16:13 WBC RBC Hgb Hct MCH MCHC RDW Plt Count Story # (Auto) Seg Neutrophils % Seg Neuts % (Manual) Lymphocytes % (Manual) Monocytes % (Manual) Nucleated RBC % Seg Neutrophils # Seg Neutrophils # Man Lymphocytes # (Manual) Monocytes # (Manual) PT INR D-Dimer ABG pH ABG pO2 ABG HCO3 ABG O2 Saturation ABG Base Excess ABG Hemoglobin Oxyhemoglobin Sodium Potassium Chloride Carbon Dioxide BUN Creatinine Glucose POC Glucose 145 H 128 H Lactic Acid Calcium Phosphorus Magnesium Ferritin ALT Lactate Dehydrogenase Total Creatine Kinase C-Reactive Protein Total Protein Albumin Urine Blood Urine WBC (Auto) U Epithel Cells (Auto) Crossmatch See Detail 10/17/21 10/18/21 10/18/21 23:46 04:28 04:28 WBC 16.6 H RBC 2.81 L Hgb 8.4 L Hct 24.4 L MCH MCHC RDW 16.8 H Plt Count 516 H Story # (Auto) Seg Neutrophils % Seg Neuts % (Manual) Lymphocytes % (Manual) Monocytes % (Manual) Nucleated RBC % Seg Neutrophils # Seg Neutrophils # Man Lymphocytes # (Manual) Monocytes # (Manual) PT INR D-Dimer ABG pH ABG pO2 ABG HCO3 ABG O2 Saturation ABG Base Excess ABG Hemoglobin Oxyhemoglobin Sodium Potassium Chloride Carbon Dioxide BUN 26 H Creatinine Glucose 144 H POC Glucose 124 H Lactic Acid Calcium 7.5 L Phosphorus Magnesium Ferritin ALT 6 L Lactate Dehydrogenase Total Creatine Kinase C-Reactive Protein Total Protein 6.1 L Albumin 2.0 L Urine Blood Urine WBC (Auto) U Epithel Cells (Auto) Crossmatch 10/18/21 10/18/21 10/18/21 05:19 11:34 11:40 WBC RBC Hgb Hct MCH MCHC RDW Plt Count Story # (Auto) Seg Neutrophils % Seg Neuts % (Manual) Lymphocytes % (Manual) Monocytes % (Manual) Nucleated RBC % Seg Neutrophils # Seg Neutrophils # Man Lymphocytes # (Manual) Monocytes # (Manual) PT INR D-Dimer ABG pH 7.466 H ABG pO2 90.6 H ABG HCO3 29.0 H ABG O2 Saturation ABG Base Excess 4.9 H ABG Hemoglobin 8.6 L Oxyhemoglobin Sodium Potassium Chloride Carbon Dioxide BUN Creatinine Glucose POC Glucose 128 H Lactic Acid Calcium Phosphorus Magnesium Ferritin ALT Lactate Dehydrogenase Total Creatine Kinase C-Reactive Protein Total Protein Albumin Urine Blood Moderate A Urine WBC (Auto) 50.0 H U Epithel Cells (Auto) Crossmatch 10/18/21 10/18/21 10/19/21 12:20 16:18 01:28 WBC RBC Hgb Hct MCH MCHC RDW Plt Count Story # (Auto) Seg Neutrophils % Seg Neuts % (Manual) Lymphocytes % (Manual) Monocytes % (Manual) Nucleated RBC % Seg Neutrophils # Seg Neutrophils # Man Lymphocytes # (Manual) Monocytes # (Manual) PT INR D-Dimer ABG pH ABG pO2 ABG HCO3 ABG O2 Saturation ABG Base Excess ABG Hemoglobin Oxyhemoglobin Sodium Potassium Chloride Carbon Dioxide BUN Creatinine Glucose POC Glucose 151 H 139 H 126 H Lactic Acid Calcium Phosphorus Magnesium Ferritin ALT Lactate Dehydrogenase Total Creatine Kinase C-Reactive Protein Total Protein Albumin Urine Blood Urine WBC (Auto) U Epithel Cells (Auto) Crossmatch 10/19/21 10/19/21 10/19/21 04:23 04:23 04:23 WBC 16.0 H RBC 3.04 L Hgb 8.7 L Hct 26.3 L MCH MCHC RDW 16.9 H Plt Count 500 H Story # (Auto) Seg Neutrophils % Seg Neuts % (Manual) Lymphocytes % (Manual) Monocytes % (Manual) Nucleated RBC % Seg Neutrophils # Seg Neutrophils # Man Lymphocytes # (Manual) Monocytes # (Manual) PT INR D-Dimer ABG pH ABG pO2 ABG HCO3 ABG O2 Saturation ABG Base Excess ABG Hemoglobin Oxyhemoglobin Sodium Potassium Chloride Carbon Dioxide BUN 20 H Creatinine Glucose 138 H POC Glucose Lactic Acid Calcium 7.8 L Phosphorus 1.80 L D Magnesium 1.60 L Ferritin ALT Lactate Dehydrogenase Total Creatine Kinase C-Reactive Protein Total Protein Albumin Urine Blood Urine WBC (Auto) U Epithel Cells (Auto) Crossmatch 10/19/21 10/19/21 10/19/21 14:11 18:05 21:42 WBC RBC Hgb Hct MCH MCHC RDW Plt Count Story # (Auto) Seg Neutrophils % Seg Neuts % (Manual) Lymphocytes % (Manual) Monocytes % (Manual) Nucleated RBC % Seg Neutrophils # Seg Neutrophils # Man Lymphocytes # (Manual) Monocytes # (Manual) PT INR D-Dimer ABG pH ABG pO2 ABG HCO3 ABG O2 Saturation ABG Base Excess ABG Hemoglobin Oxyhemoglobin Sodium Potassium Chloride Carbon Dioxide BUN Creatinine Glucose POC Glucose 161 H 162 H 112 H Lactic Acid Calcium Phosphorus Magnesium Ferritin ALT Lactate Dehydrogenase Total Creatine Kinase C-Reactive Protein Total Protein Albumin Urine Blood Urine WBC (Auto) U Epithel Cells (Auto) Crossmatch 10/20/21 10/20/21 10/20/21 00:01 05:39 11:41 WBC 20.2 H RBC 2.81 L Hgb 8.5 L Hct 24.3 L MCH MCHC 35 H RDW 16.8 H Plt Count 481 H Story # (Auto) Seg Neutrophils % Seg Neuts % (Manual) Lymphocytes % (Manual) Monocytes % (Manual) Nucleated RBC % Seg Neutrophils # Seg Neutrophils # Man Lymphocytes # (Manual) Monocytes # (Manual) PT INR D-Dimer ABG pH ABG pO2 ABG HCO3 ABG O2 Saturation ABG Base Excess ABG Hemoglobin Oxyhemoglobin Sodium Potassium Chloride Carbon Dioxide BUN Creatinine Glucose POC Glucose 152 H 117 H Lactic Acid Calcium Phosphorus Magnesium Ferritin ALT Lactate Dehydrogenase Total Creatine Kinase C-Reactive Protein Total Protein Albumin Urine Blood Urine WBC (Auto) U Epithel Cells (Auto) Crossmatch 10/20/21 10/20/21 11:41 11:50 WBC RBC Hgb Hct MCH MCHC RDW Plt Count Story # (Auto) Seg Neutrophils % Seg Neuts % (Manual) Lymphocytes % (Manual) Monocytes % (Manual) Nucleated RBC % Seg Neutrophils # Seg Neutrophils # Man Lymphocytes # (Manual) Monocytes # (Manual) PT INR D-Dimer ABG pH ABG pO2 ABG HCO3 ABG O2 Saturation ABG Base Excess ABG Hemoglobin Oxyhemoglobin Sodium Potassium Chloride Carbon Dioxide BUN 20 H Creatinine Glucose 123 H POC Glucose 120 H Lactic Acid Calcium 7.7 L Phosphorus 2.00 L Magnesium Ferritin ALT Lactate Dehydrogenase Total Creatine Kinase C-Reactive Protein Total Protein Albumin Urine Blood Urine WBC (Auto) U Epithel Cells (Auto) Crossmatch Allied health notes reviewed: nursing
[2021-10-20] MEDS: PANTOPRAZOLE 40 MG INJ IV SCH (16:34)
[2021-10-20] MEDS ORDERED: METOPROLOL TARTRATE 5 MG/5 ML INJ IV ONE (17:00)
--- NOTE | 2021-10-20 17:09 | XRay Report ---
. CHEST 1 VIEW INDICATION / CLINICAL INFORMATION: resp failure. COMPARISON: 10/17/2021 FINDINGS: SUPPORT DEVICES: Interval removal of endotracheal tube, otherwise unchanged. HEART / MEDIASTINUM: Stable. LUNGS / PLEURA: Interval increase in right mid and lower lung zone opacities, which may be partially attributable to overlying soft tissue. Left lung is unchanged with persistent left basilar airspace d isease. No pneumothorax. ADDITIONAL FINDINGS: No significant additional findings. IMPRESSION: Interval removal of endotracheal tube with questionable interval worsening in airspace disease in the right mid and lower lung zone. This could also be related to photon attenuation from overlying soft tissues of the right chest. Signer Name: Shahram Ortega MD Signed: 10/20/2021 5:05 PM Workstation Name: [id number]
[2021-10-20] MEDS ORDERED: FUROSEMIDE 40 MG/4 ML INJ IV ONE (18:00)
[2021-10-20] MEDS ORDERED: CEFEPIME/NS 2 GM/100 ML 2 GM/100 ML BAG IV SCH (18:00)
[2021-10-20] MEDS ORDERED: TOTAL PARENTERAL NUTRITION 1,999.92 ML IV SCH (20:00)
[2021-10-21] MEDS: TMP IV SCH ×4 (00:10→19:14)
[2021-10-21] MEDS: DEXTROSE 5% IV SCH ×4 (00:10→19:14)
[2021-10-21] MEDS: SMX IV SCH ×4 (00:10→19:14)
[2021-10-21] MEDS: WATER IV SCH ×4 (00:10→19:14)
[2021-10-21] MEDS: INSULIN REGULAR, HUMAN 100 UNITS/1 ML SUB-Q SCH ×4 (00:41→18:33)
[2021-10-21 04:58] LABS: Hematocrit 23.2 % (30.3-42.9); Hemoglobin 7.9 gm/dl (10.1-14.3); Mean Corpuscular HGB Conc 34 % (30-34); Mean Corpuscular Volume 86 fl (79-97); Platelet Count 439 K/mm3 (140-440); Red Cell Distribution Width 17.2 % (13.2-15.2)
[2021-10-21 05:15] LABS: BUN/Creatinine Ratio 24; Blood Urea Nitrogen 22 mg/dL (7-17); Calcium 7.7 mg/dL (8.4-10.2); Hemolysis Index 3
[2021-10-21] MEDS: MEROPENEM/NS 1 GRAM/100 ML 1 GRAM/100 ML BAG IV SCH ×4 (05:16→23:54)
--- NOTE | 2021-10-21 08:06 | Progress Note ---
Assessment and Plan - Patient Problems (1) Acute renal failure Current Visit: Yes Status: Resolved Qualifiers: Acute renal failure type: unspecified Qualified Code(s): N17.9 - Acute kidney failure, unspecified Plan to address problem: Acute tubular necrosis secondary to hypotension/contrast-induced nephropathy. Kidney function has improved. Follow-up electrolytes and renal function period ically. We will sign off. Please reconsult if indicated (2) Sepsis Current Visit: Yes Status: Acute Plan to address problem: Follow-up cultures. Continue antibiotics (Bactrim and meropenem )appropriately adjusted to the degree of renal function. (3) Acute respiratory failure with hypoxia Current Visit: Yes Status: Acute Plan to address problem: Stable off of the ventilator. Continue management by parachute packer/information management specialist (4) Appendicitis with perforation Current Visit: Yes Status: Acute Plan to address problem: Status post multiple surgeries. 1) status post laparoscopic converted to open left hemicolectomy with appendectomy for perforated appendicitis with fistulization to sigmoid colon on 09/26/2021 2) status post colorectal anastomosis takedown, with abdominal washout and ABThe ra wound VAC on 10/12/2021 3) status post colostomy creation with closure of abdomen on 10/14/2021 Continue management by surgeon (5) Hypoalbuminemia due to protein-calorie malnutrition Current Visit: Yes Status: Acute Plan to address problem: Continue parenteral nutritional support. (6) Hypomagnesemia Current Visit: Yes Status: Acute Plan to address problem: Magnesium is back to normal. Follow-up magnesium periodically and supplement magnesium parenterally if indicated (7) Hypophosphatemia Current Visit: Yes Status: Acute Plan to address problem: Follow-up phosphorus periodically and supplement phosphorus parenterally if indicated Subjective Date of service: 10/21/21 Principal diagnosis: BRYANNA Interval history: Patient seen lying in bed. Pain is controlled this morning. Still having nausea but no vomiting. Admits that she is still a bit short of breath. Still receiving total parenteral nutrition Objective - Exam Narrative Exam: Young -[place]osoth[place] female lying in bed in no acute distress HEENT: NCAT, mild pallor, anicteric Neck: Supple, no venous distention CVS: S1S2 RRR with no murmur, rub or gallop Chest: Bilateral rhonchi Abdomen: Protuberant, soft, nontender, no organomegaly, bowel sounds are diminished Extremities: Mild edema Neuro: Awake, alert no focal deficits - Vital Signs Vital signs: Vital Signs - 12hr 10/20/21 10/20/21 10/20/21 20:30 21:00 21:30 Temperature Pulse Rate 118 H 118 H 120 H Pulse Rate [ From Monitor] Pulse Rate [ Left] Respiratory 45 H 46 H 42 H Rate Blood Pressure 153/96 129/85 129/85 O2 Sat by Pulse 98 Oximetry 10/20/21 10/20/21 10/20/21 22:00 23:00 23:24 Temperature Pulse Rate 123 H 123 H 123 H Pulse Rate [ From Monitor] Pulse Rate [ Left] Respiratory 46 H 54 H 47 H Rate Blood Pressure 120/82 120/82 150/99 O2 Sat by Pulse 96 99 Oximetry 10/21/21 10/21/21 10/21/21 00:00 01:00 02:00 Temperature 98.2 F Pulse Rate 126 H 129 H 122 H Pulse Rate [ 123 H From Monitor] Pulse Rate [ Left] Respiratory 52 H 38 H 37 H Rate Blood Pressure 150/99 77/51 142/101 O2 Sat by Pulse 94 95 Oximetry 10/21/21 10/21/21 10/21/21 03:00 03:15 03:30 Temperature Pulse Rate 119 H 125 H Pulse Rate [ From Monitor] Pulse Rate [ 121 H Left] Respiratory 49 H 32 H 44 H Rate Blood Pressure 142/101 136/91 136/91 O2 Sat by Pulse Oximetry 10/21/21 10/21/21 10/21/21 04:00 04:30 05:00 Temperature 98.6 F Pulse Rate 128 H 120 H 121 H Pulse Rate [ 119 H From Monitor] Pulse Rate [ Left] Respiratory 43 H 44 H 42 H Rate Blood Pressure 136/91 136/91 145/105 O2 Sat by Pulse 95 Oximetry 10/21/21 10/21/21 10/21/21 05:30 06:00 06:30 Temperature Pulse Rate 122 H 116 H 119 H Pulse Rate [ From Monitor] Pulse Rate [ Left] Respiratory 42 H 15 35 H Rate Blood Pressure 139/97 139/93 139/93 O2 Sat by Pulse 93 93 97 Oximetry - Lab 10/21/21 04:30 10/21/21 04:30 Most recent lab results ABG pH 7.466 pH Units (7.350-7.450) H 10/18/21 11:34 ABG pCO2 41.1 mm Hg 10/18/21 11:34 ABG pO2 90.6 mm Hg (80.0-90.0) H 10/18/21 11:34 ABG HCO3 29.0 mmol/L (20.0-26.0) H 10/18/21 11:34 ABG O2 Saturation 97.3 % (95.0-99.0) 10/18/21 11:34 Calcium 7.7 mg/dL (8.4-10.2) L 10/21/21 04:30 Phosphorus 2.50 mg/dL (2.5-4.5) D 10/21/21 04:30 Magnesium 1.80 mg/dL (1.7-2.3) 10/21/21 04:30 Medications & Allergies - Medications Allergies/Adverse Reactions: Allergies No Known Allergies Allergy (Verified 09/24/21 12:21) Home Medications: Home Medications Medication Instructions Recorded Confirmed Last Taken Type No Known Home Medications [No 09/27/21 09/27/21 Unknown History Reported Home Medications] Active Medications: Generic Name Dose Route Start Last Admin Trade Name Freq PRN Reason Stop Dose Admin Acetaminophen 650 mg 10/08/21 21:38 Acetaminophen 325 Mg Tab PO Q6H PRN Pain, Mild (1-3) Albuterol 2.5 mg 09/24/21 18:07 Albuterol 2.5 Mg/3 Ml Nebu IH Q4HRT PRN Shortness Of Breath Dextrose 0 ml 10/03/21 12:37 Dextrose 10% *Hypoglycemia IV PRN PRN Hypoglycemia Diphenhydramine HCl 25 mg 10/04/21 15:14 10/20/21 03:11 Diphenhydramine 50 Mg/Ml Vial IV 25 mg Q6H PRN Administration Itching Heparin Sodium (Porcine) 5,000 unit 10/16/21 10:00 10/20/21 22:07 Heparin 5,000 Unit/1 Ml Vial SUB-Q 5,000 unit Q12HR JAZ Administration Hydromorphone HCl 0.5 mg 10/18/21 15:39 10/20/21 23:10 Hydromorphone 1 Mg/1 Ml Inj IV 0.5 mg Q3H PRN Administration Pain, Moderate (4-6) Hydrophilic Ointment 1 applic 10/08/21 21:00 10/19/21 21:59 Lip Therapy Vaseline TP 1 applic Q2HR PRN Administration Dry Lips Fluconazole 200 mls @ 100 mls/hr 10/13/21 10:00 10/20/21 09:58 Diflucan IV 100 mls/hr Q24HR JAZ Administration Protocol Meropenem/Sodium Chloride 1 gram in 100 mls @ 100 mls/hr 10/18/21 11:00 10/21/21 05:16 Merrem/Ns 1 Gram/100 Ml IV 100 mls/hr Q6H JAZ Administration Protocol Trimethoprim/Sulfamethoxazole 525 mls @ 167 mls/hr 10/18/21 12:00 10/21/21 06:10 400 mg/ Dextrose IV 167 mls/hr Q6HR [facility] Administration Protocol Amino Acids/Electrolytes/Dextrose 1,999.92 mls @ 83.33 mls/hr 10/20/21 20:00 10/20/21 20:36 Tpn Adult IV 10/21/21 19:59 83.33 mls/hr DAILY@2000 [facility] Administration Protocol Insulin Glargine 5 units 10/13/21 10:00 10/20/21 09:56 Insulin Glargine 100 Units/Ml SUB-Q 5 units QDAY [facility] Administration Insulin Human Regular 0 units 10/10/21 00:00 10/21/21 00:41 Insulin Regular, Human 100 Units/1 Ml SUB-Q Not Given Q6HR [facility] Protocol Labetalol HCl 10 mg 10/01/21 08:31 10/20/21 09:56 Labetalol 20 Mg/4 Ml Inj IV 10 mg Q6H PRN Administration Hypertension Lorazepam 1 mg 10/20/21 13:00 10/20/21 22:07 Lorazepam 2 Mg/Ml Vial IV 1 mg Q6H PRN Administration Anxiety Multi-Ingred Cream/Lotion/Oil/Oint 1 applic 10/08/21 21:00 Mineral Oil/Petrolatum, White Ophth Oint 3.5 Gm OU Q4HR PRN Dry Eye(s) Naloxone HCl 0.1 mg 10/03/21 14:00 Naloxone 0.4 Mg/1 Ml Inj IV Q2MIN PRN Res Rate </= 8 or 02 SAT < 92% Nystatin 1 applic 10/18/21 14:00 10/20/21 22:46 Nystatin Powder 15 Gm TP 10/24/21 22:01 1 applic BID JAZ Administration Ondansetron HCl 4 mg 09/24/21 18:07 10/20/21 06:04 Ondansetron 4 Mg/2 Ml Inj IV 4 mg Q8H PRN Administration Nausea And Vomiting Pantoprazole Sodium 40 mg 10/20/21 17:00 10/20/21 16:34 Pantoprazole 40 Mg Inj IV 40 mg QDAY JAZ Administration Phenol 1 spray 10/02/21 13:00 10/03/21 10:23 Phenol 1.4% 177 Ml Bottle MM 1 spray PRN PRN Administration Sore Throat Scopolamine 1 each 10/04/21 10:00 10/19/21 09:31 Scopolamine Transdermal Patch 72 Hr TD 1 each Q3D JAZ Administration Sodium Chloride 10 ml 09/24/21 22:00 10/20/21 22:26 Sodium Chloride 0.9% 10 Ml Flush Syringe IV 10 ml BID JAZ Administration Sodium Chloride 10 ml 09/24/21 18:07 09/25/21 08:34 Sodium Chloride 0.9% 10 Ml Flush Syringe IV 10 ml PRN PRN Administration LINE FLUSH
--- NOTE | 2021-10-21 08:54 | Progress Note ---
Assessment and Plan Assessment and plan: This is a 31-year-old female with past medical history of obesity and nephrolithiasis initially admitted to the floor for acute diverticulititis which was complicated by sepsis and acute kidney injury. 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 On 10/08/21 patient developed acute hypoxic respiratory failure requiring ventilatory support, s/p extubation now stable on 2L NC. ICU Course to Date: 10/09: Intubated and sedated, RASS -1 to -2. Recent CXR noted with worsen bilateral opacities with persistent leukocytosis, elevated lactic, and now on 2 pressors. Patient remains afebrile, and already on IV Abx per ID. Will swab patient for COVID. Given recent surgery orders placed for CTA chest, CT Abd/plevis. And also BLE dopplers due to elevated D-Dimer. Renal function is improving, additional IVF to flush out kidney post contrast, Nephrology is also following. Continue TPN and NGT to LIS. 10/10: COVID PCR negative. CTA chest and Abd/plevis noted. No evidence of PE. Patient received X1 dose of 20mg IV lasix per Nephro for pulmonary edema, this a m CXR with some improvement, renal function is also improving. Wean vent setting as tolerated per CCM. Plan for possible CT guided drainage placement in IR tomorrow. Continue TPN and NGT to LIS. 10/11: Patient with anemia, 1 unit PRBC, scheduled for CT-guided drain image of air pocket. Will place on CPAP on return. Slightly worsening renal function but nephrology is on the case. 10/12: Taken to OR today for diverting ileostomy, given 3 units PRBC yesterday and appropriate response. Surgical culture grew yeast and ID added added fluconazole. 10/13: Hypomagnesemia repleted, renal function improving. Patient remains sedated with fentanyl and propofol. Updated sister and father at bedside. Ureteral stents removed at bedside. Plan to to take patient to the OR tomorrow for second look, abdominal washout, colostomy creation on hold for abdominal closure by surgery. We will hold p.m. dose of heparin. 10/14: Plan to take patient back to OR today, prophylactic anticougulation on h old. 2 units prbc on hold for surgery. Plan to close abd and colostomy creation. Vent weaning on hold till abd closure 10/15: Renal function remains stable, leukocytosis increased, remains sedated on propofol and fentanyl and on mechanical ventilation. Plan is to hold SBT until the weekend. Repeat renal ultrasound pending per urology. 10/16: no acute events overnight. remains on fent and propofol. plan to sbt on monday. 10/17: noted drop in hgb from 8 to 7.2 and will given one unit prbc. remains on fent/propofol. CARMEN overnight. Will retract OETT per rad reading. 10/18: Febrile this am with worsen leukocytosis. Continue IV Abx per ID, orders placed for cultures. Patient tolerating PST, d/w CCM plan for possible extubation today. Abdominal insicion and colostomy noted, no signs of any complications noted. Continue TPN and NGT to LIS per General surgery. 10/19: S/p extubation, now stable on 2L NC. Fevers improved, cultures pending continue IV Abx per ID. Patient is still with absent bowel sounds, continue TPN and NGT to LIS per General surg. Okay to remove barntley per Urology. Electrolytes repleted, repeat labs in the am. Patient is stable for transfer to [facility]. 10/20: Continue current management. Patient remained stable on 2 L of oxygen but appears anxious with increased tachypnea. We will add incentive spirometer. Will check and monitor intermittent x-rays. Continue antibiotics per infectious disease. Renal function has normalized. We will good urine output. We will check blood work in a.m. Awaiting return of bowel function 10/21: Patient on BiPAP this am, xray from yesterday concerning for Aspiration pneumonia vs atalalectsis, patient still with increased WOB although improved compared to yesterday. Leukocytosis a bit worse, will continue to monitor and discuss with ID if more broad spectrum therapy should be considered. She is currently on Bactrim for positive tracheal aspirate with Stenotrophomonas. Continue aspiration precautions. may need repeat xray but will discuss with pulmonary. Continue Strict NPO and Aspiration precautions. Continues on TPN. Prognosis guarded. 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 post appendectomy #VRE infection #Open left hemicolectomy and partial omentectomy #Peritonitis #Diverticulitis with abscess #Possible Bilateral Pneumonia #Septic Shock-resolved -CT abd/pelvis showed diverticulitis with abscess -General surgery following, assistance appreciated -s/p diagnositic laparatomy and drain placement 09/26/2021 -Returned to the OR on 09/30/2021 for left hemicolectomy, appendectomy, and p artial omentectomy -10/09 CT abdomen/pelvis showed a new collection of air within the left midabdomen -10/11 CT guided drain placement in IR- Colonic Anastamosis noted -10/12 status post colorectal anastomosis takedown, with abdominal washout and ABThera wound VAC placement -10/13 status post colostomy creation with closure of abdomen -Wound culture +VRE -10/08 Repeat Blood culture negative -10/18 repeat cultures pending -Continue IV Abx per ID recommendations -Continue TPN/PPN per general surgery -NGT to LIS -Trend CBC #Acute Kidney Injury 2/2 Vasomotor Nephropathy vs contrast induced-improved -Nephrology consulted, assistance appreciated -Renal function normalized -Strict intake and output -Avoid nephrotoxic medications; Renally dose medications -Monitor and replace electrolytes as needed #Acute blood loss anemia-Resolved #Gross Hematuria-resolved -2 to surgical procedures-- c/f ureteral injury -s/p 7 units of pRBCs since admission -Hematuria resolved, H&H stable -Urology consulted, appreciated recommendation -10/12 Intra-Op cystoscopy completed and bilateral ureteral stents placed- removed on 10/13 By Urology -Repeat renal US noted -Okay to remove Brantley per Urology -Continue to monitor for s/s of any active bleeding, trend CBC -transfuse if hemoglobin less than 7 or patient becomes symptomatic #Moderate protein caloric malnutrition -Albumin 1.6 -Continue TPN/PPN per general surgery -Consulting nutrition; appreciate recs #Elevated D-Dimer -BLE doppler with no evidence of any DVT -Continue AC- Heparin subQ #Hyperglycemia -most likely due to TPN/PPN -Continue SSI Q6hrs -Avoid hypoglycemia #Anxiety #GI/DVT Prophylaxis -Continue PPI- Pepcid -Continue AC- Heparin subQ -SCDs to bilateral lower extremities while in bed The high probability of a clinically significant, sudden or life threatening deterioration of the [multiple] system(s) required my full and direct attention, intervention and personal management. The aggregate critical care time was [35] minutes. This time is in addition to time spent performing reported procedures but includes the following: [x] Data Review and interpretation [x] Patient assessment and monitoring of vital signs [x] Documentation [x] Medication orders and management Disposition Plan: ICU Total Time Spent with Patient (Minutes): 35 History Interval history: Patient seen and examined this morning remains with mild distress, reports improvement in anxiety, she is on BIPAP this morning and also received lasix last night. Awaiting repeat xray today Hospitalist Physical - Physical exam Narrative exam: General appearance: Present: Anxious obese, ON BiPAP - EENT Eyes: Present: PERRL, EOM intact ENT: hearing intact - Neck Neck: Present: normal ROM - Respiratory Respiratory effort: normal Respiratory: bilateral: diminished, shallow tachypneic - Cardiovascular Rhythm: regular Heart Sounds: Present: S1 & S2 tachycardic - Extremities Extremities: no ischemia, pulses intact, pulses symmetrical Extremity abnormal: edema - Peripheral Assessment Generalized Edema Type: Non-pitting Edema Degree: 3+ Capillary Refill: < 3 seconds Skin Temperature: Warm Peripheral Pulses: within normal limits - Abdominal General gastrointestinal: soft, non-distended, hypoactive sounds, other (LUQ Colostomy, Mid Abdominal insicion) YURIDIA drain in place - Integumentary Integumentary: Present: warm, dry - Psychiatric Psychiatric: appropriate mood/affect, cooperative - Neurologic Neurologic: CNII-XII intact, moves all extremities - Allied Health Allied health notes reviewed: nursing, case management - Constitutional Vitals: Temp Pulse Resp BP Pulse Ox 99.1 F 119 H 48 H 139/94 98 10/21/21 08:00 10/21/21 08:00 10/21/21 08:00 10/21/21 08:00 10/21/21 08:00 General appearance: Present: no acute distress, obese Results - Labs CBC & Chem 7: 10/21/21 04:30 10/21/21 04:30 Labs: Laboratory Last Values WBC 23.2 K/mm3 (4.5-11.0) H 10/21/21 04:30 RBC 2.70 M/mm3 (3.65-5.03) L 10/21/21 04:30 Hgb 7.9 gm/dl (10.1-14.3) L 10/21/21 04:30 Hct 23.2 % (30.3-42.9) L 10/21/21 04:30 MCV 86 fl (79-97) 10/21/21 04:30 MCH 29 pg (28-32) 10/21/21 04:30 MCHC 34 % (30-34) 10/21/21 04:30 RDW 17.2 % (13.2-15.2) H 10/21/21 04:30 Plt Count 439 K/mm3 (140-440) 10/21/21 04:30 [place] % (Auto) 5.9 % (0.0-7.3) 09/28/21 04:55 Eos % (Auto) 0.4 % (0.0-4.3) 09/28/21 04:55 [place] # (Auto) 0.9 K/mm3 (0.0-0.8) H 09/28/21 04:55 Eos # (Auto) 0.1 K/mm3 (0.0-0.4) 09/28/21 04:55 Baso # (Auto) 0.0 K/mm3 (0.0-0.1) 09/28/21 04:55 Add Manual Diff Complete 10/09/21 05:31 Total Counted 100 10/09/21 05:31 Seg Neutrophils % 3D Technologist 10/03/21 04:55 Seg Neuts % (Manual) 88.0 % (40.0-70.0) H 10/09/21 05:31 Band Neutrophils % 0 % 10/09/21 05:31 Lymphocytes % (Manual) 3.0 % (13.4-35.0) L 10/09/21 05:31 Reactive Lymphs % (Man) 1.0 % 10/09/21 05:31 Monocytes % (Manual) 6.0 % (0.0-7.3) 10/09/21 05:31 Eosinophils % (Manual) 2.0 % (0.0-4.3) 10/09/21 05:31 Basophils % (Manual) 0 % (0.0-1.8) 10/09/21 05:31 Metamyelocytes % 0 % 10/09/21 05:31 Myelocytes % 0 % 10/09/21 05:31 Promyelocytes % 0 % 10/09/21 05:31 Blast Cells % 0 % 10/09/21 05:31 Nucleated RBC % Not Reportable 10/09/21 05:31 Seg Neutrophils # 14.0 K/mm3 (1.8-7.7) H 09/28/21 04:55 Seg Neutrophils # Man 17.9 K/mm3 (1.8-7.7) H 10/09/21 05:31 Band Neutrophils # 0.0 K/mm3 10/09/21 05:31 Lymphocytes # (Manual) 0.6 K/mm3 (1.2-5.4) L 10/09/21 05:31 Abs React Lymphs (Man) 0.2 K/mm3 10/09/21 05:31 Monocytes # (Manual) 1.2 K/mm3 (0.0-0.8) H 10/09/21 05:31 Eosinophils # (Manual) 0.4 K/mm3 (0.0-0.4) 10/09/21 05:31 Basophils # (Manual) 0.0 K/mm3 (0.0-0.1) 10/09/21 05:31 Metamyelocytes # 0.0 K/mm3 10/09/21 05:31 Myelocytes # 0.0 K/mm3 10/09/21 05:31 Promyelocytes # 0.0 K/mm3 10/09/21 05:31 Blast Cells # 0.0 K/mm3 10/09/21 05:31 Pathologist Review 09/24/21 14:58 WBC Morphology Not Reportable 10/09/21 05:31 Hypersegmented Neuts Not Reportable 10/09/21 05:31 Hyposegmented Neuts Not Reportable 10/09/21 05:31 Hypogranular Neuts Not Reportable 10/09/21 05:31 Smudge Cells Not Reportable 10/09/21 05:31 Toxic Granulation Not Reportable 10/09/21 05:31 Toxic Vacuolation Not Reportable 10/09/21 05:31 Dohle Bodies Not Reportable 10/09/21 05:31 Pelger-Huet Anomaly Not Reportable 10/09/21 05:31 Marlene Rods Not Reportable 10/09/21 05:31 Platelet Estimate Consistent w auto 10/09/21 05:31 Clumped Platelets Not Reportable 10/09/21 05:31 Plt Clumps, EDTA Not Reportable 10/09/21 05:31 Large Platelets Not Reportable 10/09/21 05:31 Giant Platelets Not Reportable 10/09/21 05:31 Platelet Satelliting Not Reportable 10/09/21 05:31 Plt Morphology Comment Not Reportable 10/09/21 05:31 RBC Morphology Not Reportable 10/09/21 05:31 Dimorphic RBCs Not Reportable 10/09/21 05:31 Polychromasia Not Reportable 10/09/21 05:31 Hypochromasia Not Reportable 10/09/21 05:31 Poikilocytosis Not Reportable 10/09/21 05:31 Anisocytosis 1+ 10/09/21 05:31 Microcytosis Not Reportable 10/09/21 05:31 Macrocytosis Not Reportable 10/09/21 05:31 Spherocytes Not Reportable 10/09/21 05:31 Pappenheimer Bodies Not Reportable 10/09/21 05:31 Sickle Cells Not Reportable 10/09/21 05:31 Target Cells Not Reportable 10/09/21 05:31 Tear Drop Cells Not Reportable 10/09/21 05:31 Ovalocytes Not Reportable 10/09/21 05:31 Helmet Cells Not Reportable 10/09/21 05:31 [place] Bodies Not Reportable 10/09/21 05:31 [place] Rings Not Reportable 10/09/21 05:31 [place] Cells Not Reportable 10/09/21 05:31 Bite Cells Not Reportable 10/09/21 05:31 Crenated Cell Not Reportable 10/09/21 05:31 Elliptocytes Not Reportable 10/09/21 05:31 Acanthocytes (Spur) Not Reportable 10/09/21 05:31 Rouleaux Not Reportable 10/09/21 05:31 Hemoglobin C Crystals Not Reportable 10/09/21 05:31 Schistocytes Not Reportable 10/09/21 05:31 Malaria parasites Not Reportable 10/09/21 05:31 Flaco Bodies Not Reportable 10/09/21 05:31 Hem Pathologist Commnt No 10/09/21 05:31 PT 19.0 Sec. (12.2-14.9) H 10/14/21 04:05 INR 1.41 (0.87-1.13) H 10/14/21 04:05 APTT 33.9 Sec. (24.2-36.6) 10/14/21 04:05 D-Dimer > 74696 ng/mlDDU (0-234) H 10/09/21 08:45 ABG pH 7.466 pH Units (7.350-7.450) H 10/18/21 11:34 ABG pCO2 41.1 mm Hg 10/18/21 11:34 ABG pO2 90.6 mm Hg (80.0-90.0) H 10/18/21 11:34 ABG HCO3 29.0 mmol/L (20.0-26.0) H 10/18/21 11:34 ABG O2 Saturation 97.3 % (95.0-99.0) 10/18/21 11:34 ABG O2 Content 11.6 (0.0-44) 10/18/21 11:34 ABG Base Excess 4.9 mmol/L (-2.0-3.0) H 10/18/21 11:34 ABG Hemoglobin 8.6 gm/dl (12.0-16.0) L 10/18/21 11:34 ABG Carboxyhemoglobin 1.4 % (0.0-5.0) 10/18/21 11:34 ABG Methemoglobin 0.6 % (0.0-1.5) 10/18/21 11:34 Oxyhemoglobin 95.4 % (95.0-99.0) 10/18/21 11:34 FiO2 30 % 10/18/21 11:34 Sodium 137 mmol/L (137-145) 10/21/21 04:30 Potassium 3.9 mmol/L (3.6-5.0) 10/21/21 04:30 Chloride 100.3 mmol/L (98-107) 10/21/21 04:30 Carbon Dioxide 26 mmol/L (22-30) 10/21/21 04:30 Anion Gap 15 mmol/L 10/21/21 04:30 BUN 22 mg/dL (7-17) H 10/21/21 04:30 Creatinine 0.9 mg/dL (0.6-1.2) 10/21/21 04:30 Estimated GFR > 60 ml/min 10/21/21 04:30 BUN/Creatinine Ratio 24 % 10/21/21 04:30 Glucose 117 mg/dL (65-100) H 10/21/21 04:30 POC Glucose 111 mg/dL (70-105) H 10/21/21 05:26 Lactic Acid 1.80 mmol/L (0.7-2.0) 10/10/21 04:10 Calcium 7.7 mg/dL (8.4-10.2) L 10/21/21 04:30 Phosphorus 2.50 mg/dL (2.5-4.5) D 10/21/21 04:30 Magnesium 1.80 mg/dL (1.7-2.3) 10/21/21 04:30 Ferritin 751.9 ng/mL (10.0-200.0) H 10/09/21 05:31 Total Bilirubin 0.20 mg/dL (0.1-1.2) 10/18/21 04:28 AST 19 units/L (5-40) 10/18/21 04:28 ALT 6 units/L (7-56) L 10/18/21 04:28 Alkaline Phosphatase 53 units/L (35-129) 10/18/21 04:28 Lactate Dehydrogenase 472 units/L (91-180) H 10/09/21 05:31 Total Creatine Kinase 45 units/L (30-135) 10/13/21 04:05 C-Reactive Protein 15.90 mg/dL (0.00-1.30) H 10/09/21 05:31 Total Protein 6.1 g/dL (6.3-8.2) L 10/18/21 04:28 Albumin 2.0 g/dL (3.9-5) L 10/18/21 04:28 Albumin/Globulin Ratio 0.5 % 10/18/21 04:28 Triglycerides 80 mg/dL (2-149) 10/14/21 04:05 Procalcitonin 12.98 ng/mL (<0.15) 10/09/21 05:31 Urine Color Yellow (Yellow) 10/18/21 11:40 Urine Turbidity Clear (Clear) 10/18/21 11:40 Urine pH 6.0 (5.0-7.0) 10/18/21 11:40 Ur Specific [place] 1.015 (1.003-1.030) 10/18/21 11:40 Urine Protein 30 mg/dl mg/dL (Negative) 10/18/21 11:40 Urine Glucose (UA) Trace mg/dL (Negative) 10/18/21 11:40 Urine Ketones Negative mg/dL (Negative) 10/18/21 11:40 Urine Blood Moderate (Negative) A 10/18/21 11:40 Urine Nitrite Negative (Negative) 10/18/21 11:40 Ur Reducing Substances Not Reportable 09/24/21 14:49 Urine Bilirubin Negative (Negative) 10/18/21 11:40 Urine Ictotest Not Reportable 09/24/21 14:49 Urine Urobilinogen 0.0 mg/dL (<2.0) 10/18/21 11:40 Ur Leukocyte Esterase Negative (Negative) 10/18/21 11:40 Urine WBC (Auto) 50.0 /HPF (0.0-6.0) H 10/18/21 11:40 Urine RBC (Auto) > 182.0 /HPF (0.0-6.0) 10/18/21 11:40 U Epithel Cells (Auto) 2.0 /HPF (0-13.0) 10/18/21 11:40 Urine Bacteria (Auto) 2+ /HPF (Negative) 10/18/21 11:40 Urine WBC Clumps 1+ /HPF 10/18/21 11:40 Hyaline Casts Few /LPF 10/18/21 11:40 Granular Casts Few /LPF 10/18/21 11:40 Urine Mucus 3+ /HPF 10/18/21 11:40 Urine HCG, Qual Negative (Negative) 09/24/21 14:49 Coronavirus (PCR) Negative (Negative) 10/09/21 10:15 Blood Type A POSITIVE 10/17/21 12:50 Antibody Screen Negative 10/17/21 12:50 Crossmatch See Detail 10/17/21 12:50 Microbiology: Microbiology 10/18/21 08:17 Peripheral/Venous Blood Culture - Preliminary NO GROWTH AFTER 72 HOURS 10/18/21 08:17 Peripheral/Venous Blood Culture - Preliminary NO GROWTH AFTER 72 HOURS 10/18/21 08:10 Tracheal Aspirate Sputum Culture - Final Stenotrophomonas Maltophilia 10/18/21 13:02 Urine,Catheterized - Indwelling Catheter Urine Culture - Final NO GROWTH AFTER 48 HOURS Brantley/IV: Voiding Method External Female Catheter Active Medications - Current Medications Current Medications: Generic Name Dose Route Start Last Admin Trade Name Freq PRN Reason Stop Dose Admin Acetaminophen 650 mg 10/08/21 21:38 Acetaminophen 325 Mg Tab PO Q6H PRN Pain, Mild (1-3) Albuterol 2.5 mg 09/24/21 18:07 Albuterol 2.5 Mg/3 Ml Nebu IH Q4HRT PRN Shortness Of Breath Dextrose 0 ml 10/03/21 12:37 Dextrose 10% *Hypoglycemia IV PRN PRN Hypoglycemia Diphenhydramine HCl 25 mg 10/04/21 15:14 10/20/21 03:11 Diphenhydramine 50 Mg/Ml Vial IV 25 mg Q6H PRN Administration Itching Heparin Sodium (Porcine) 5,000 unit 10/16/21 10:00 10/20/21 22:07 Heparin 5,000 Unit/1 Ml Vial SUB-Q 5,000 unit Q12HR JAZ Administration Hydromorphone HCl 0.5 mg 10/18/21 15:39 10/20/21 23:10 Hydromorphone 1 Mg/1 Ml Inj IV 0.5 mg Q3H PRN Administration Pain, Moderate (4-6) Hydrophilic Ointment 1 applic 10/08/21 21:00 10/19/21 21:59 Lip Therapy Vaseline TP 1 applic Q2HR PRN Administration Dry Lips Fluconazole 200 mls @ 100 mls/hr 10/13/21 10:00 10/20/21 09:58 Diflucan IV 100 mls/hr Q24HR JAZ Administration Protocol Meropenem/Sodium Chloride 1 gram in 100 mls @ 100 mls/hr 10/18/21 11:00 10/21/21 05:16 Merrem/Ns 1 Gram/100 Ml IV 100 mls/hr Q6H JAZ Administration Protocol Trimethoprim/Sulfamethoxazole 525 mls @ 167 mls/hr 10/18/21 12:00 10/21/21 06:10 400 mg/ Dextrose IV 167 mls/hr Q6HR JAZ Administration Protocol Amino Acids/Electrolytes/Dextrose 1,999.92 mls @ 83.33 mls/hr 10/20/21 20:00 10/20/21 20:36 Tpn Adult IV 10/21/21 19:59 83.33 mls/hr DAILY@2000 JAZ Administration Protocol Insulin Glargine 5 units 10/13/21 10:00 10/20/21 09:56 Insulin Glargine 100 Units/Ml SUB-Q 5 units QDAY JAZ Administration Insulin Human Regular 0 units 10/10/21 00:00 10/21/21 08:36 Insulin Regular, Human 100 Units/1 Ml SUB-Q Not Given Q6HR [facility] Protocol Labetalol HCl 10 mg 10/01/21 08:31 10/20/21 09:56 Labetalol 20 Mg/4 Ml Inj IV 10 mg Q6H PRN Administration Hypertension Lorazepam 1 mg 10/20/21 13:00 10/20/21 22:07 Lorazepam 2 Mg/Ml Vial IV 1 mg Q6H PRN Administration Anxiety Multi-Ingred Cream/Lotion/Oil/Oint 1 applic 10/08/21 21:00 Mineral Oil/Petrolatum, White Ophth Oint 3.5 Gm OU Q4HR PRN Dry Eye(s) Naloxone HCl 0.1 mg 10/03/21 14:00 Naloxone 0.4 Mg/1 Ml Inj IV Q2MIN PRN Res Rate </= 8 or 02 SAT < 92% Nystatin 1 applic 10/18/21 14:00 10/20/21 22:46 Nystatin Powder 15 Gm TP 10/24/21 22:01 1 applic BID JAZ Administration Ondansetron HCl 4 mg 09/24/21 18:07 10/20/21 06:04 Ondansetron 4 Mg/2 Ml Inj IV 4 mg Q8H PRN Administration Nausea And Vomiting Pantoprazole Sodium 40 mg 10/20/21 17:00 10/20/21 16:34 Pantoprazole 40 Mg Inj IV 40 mg QDAY JAZ Administration Phenol 1 spray 10/02/21 13:00 10/03/21 10:23 Phenol 1.4% 177 Ml Bottle MM 1 spray PRN PRN Administration Sore Throat Scopolamine 1 each 10/04/21 10:00 10/19/21 09:31 Scopolamine Transdermal Patch 72 Hr TD 1 each Q3D JAZ Administration Sodium Chloride 10 ml 09/24/21 22:00 10/20/21 22:26 Sodium Chloride 0.9% 10 Ml Flush Syringe IV 10 ml BID JAZ Administration Sodium Chloride 10 ml 09/24/21 18:07 09/25/21 08:34 Sodium Chloride 0.9% 10 Ml Flush Syringe IV 10 ml PRN PRN Administration LINE FLUSH Nutrition/Malnutrition Assess - Dietary Evaluation Nutrition/Malnutrition Findings: Nutrition Notes Start: 09/25/21 1 5:31 Freq: Status: Active Protocol: Document 10/20/21 12:37 BIN (Rec: 10/20/21 13:01 BIN [email or web address]) Nutrition Notes Initial or Follow up Reassessment Current Diagnosis Acute Kidney Injury, Malnutrition Other Pertinent Diagnosis s/p appendectomy, s/p exp lap with colostomy, anemia Current Diet CPN at 83.33 ml/hr Labs/Tests 10/20: BUN 20, Glu 123, Ca 7.7 , Phos 2.0. Pertinent Medications 10/20: Insulin, others nutritionally unremarkable. Height 5 ft 7 in Weight 109.4 kg [place] Body Weight (kg) 61.36 BMI 37.8 Weight change and time frame 0.6 Kg body weight loss since 10/18 reported. Weight Status Obese Subjective/Other Information Day 18 CPN. Pt transferred to IMCU. BRYANNA improved/resolved, monitoring closelly, according to Progress notes. Pt awake, alert and oriented, according to Progress notes. Pt produced 100 ml stool and does no feel the urgency to eliminate gas, according to RN notes. Percent of energy/protein needs met: 76% Kcal; 98% AA. Burn Absent Trauma Absent GI Symptoms Other Food Allergy No Skin Integrity/Comment Surgical wound Current % PO Other Minimum of two criteria No #1 Nutrition Diagnosis Altered GI function Diagnosis Progress(for reassessment Continues documentation) Is patient on ventilator? No Is Patient Ambulatory and/or Out of Bed No REE-([place] [facility]-confined to bed) 2205.708 Kcal/Kg value to use for calculation 16 Approximate Energy Requirements Using 1750 kcal/Kg Calculation Used for Recommendations Kcal/kg Additional Notes Protein: 2 g/Kg; 123 g/day IBW . Fluids: 1 mL/Kcal, or as per MD. Nutrition Intervention Nutrition Support: Continue CPN at 83.33 ml/hr: MVI, 6.0% amino acids, 12.5% Dextrose. Phos 60 mmol. Osmolality: 1445. Kcal 330 Protein (gm) 120 Carbohydrates (gm) 250 Fat (gm) 0 Fluid (mL) 2,000 Fiber (gm) 0 % RDI: 76% Kcal; 98% AA. Goal #1 Provide at least 75% of energy /protein needs through Parenteral Feeding during LOS. Goal #2 Maintain body weight within +/ -3% of admission body weight during LOS. Follow-Up By: 10/21/21 Additional Comments Continue monitoring CPN tolerance and BM. BMP, Phos, Mg labs ordered.
[2021-10-21] MEDS: HEPARIN 5,000 UNIT/1 ML VIAL SUB-Q SCH ×2 (09:36→21:28)
[2021-10-21 09:37] LABS: ABG HCO3 26.2 mmol/L (20.0-26.0); ABG Methemoglobin 0.4 % (0.0-1.5); ABG Oxygen Saturation 97.5 % (95.0-99.0); ABG PCO2 33.7 mm Hg; ABG PH 7.509 pH Units (7.350-7.450); ABG PO2 60.3 mm Hg (80.0-90.0)
[2021-10-21] MEDS: FLUCONAZOLE 400 MG 200 ML IV SCH (09:37)
[2021-10-21] MEDS: PANTOPRAZOLE 40 MG INJ IV SCH (09:37)
[2021-10-21] MEDS: INSULIN GLARGINE 100 UNITS/ML SUB-Q SCH (09:37)
[2021-10-21] MEDS: NYSTATIN POWDER 15 GM TP SCH ×2 (09:46→21:29)
[2021-10-21] MEDS: LORazepam 2 MG/ML VIAL IV PRN ×2 (10:01→15:11)
--- NOTE | 2021-10-21 12:03 | Progress Note ---
Assessment and Plan Cultures: 09/24/2021 blood culture: No growth 09/30/2021 YURIDIA drain wound culture: VRE, Enterococcus faecium 10/08/2021 blood culture: No growth 10/11/2021 intra-abdominal surgical culture: Jo Ann albicans, MSSA, Stenotrophomonas 10/12/2021 tracheal culture: No growth 10/18/2021 blood culture: no growth 10/18/2021 urine culture: no growth 10/18/2021 sputum culture: Stenotrophomonas A/P: 31-year-old female past medical history obesity, nephrolithiasis admitted with: #Sepsis: Secondary to intra-abdominal infection. 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 Extubated 08/20/2021. Cultures growing Stenotrophomonas. #Leukocytosis, reactive thrombocytosis #BRYANNA: resolved. #Obesity Recs: -continue empiric meropenem, fluconazole, Bactrim -monitor renal function daily while on IV Bactrim -Stenotrophomonas in the sputum is generally more reflective of colonization rather than true disease. It is not a very virulent organism and is commonly seen in patients who have been on the ventilator and have received beta-lactam antibiotics. Patient is already on appropriate coverage for it with Bactrim. Consider diuretics to help treat fluid overload. -monitor WBC, if persistently elevated/worse, consider CT chest, abdomen and pelvis with IV contrast Mónica Swan MD, FACP, [facility] ([facility] O: [phone] F: [phone] C: [phone] Subjective Date of service: 10/21/21 Principal diagnosis: BRYANNA Interval history: No fever. Patient on BiPAP this morning. Remains on TPN, NG suction. Denies any pain. Objective - Exam Narrative Exam: Physical Exam: Constitutional: Awake, alert, mild distress Head, Ears, Nose: Normocephalic, atraumatic. External ears, nose normal Eyes: Conjunctivae/corneas clear. No icterus. No ptosis. Oral; BiPAP Neck: supple Cardiovascular: S1, S2 + Respiratory: AE fair bilaterally and equal GI: Soft, dressing, drain present, colostomy present Musculoskeletal: Obese, edema present Skin: No rash or abscess Hem/Lymphatic: No palpable cervical or supraclavicular nodes. No lymphangitis Psych: calm Neurological: Awake, alert, answering questions - Constitutional Vitals: Vital Signs Temp Pulse Resp BP Pulse Ox 99.1 F 106 H 35 H 143/102 100 10/21/21 08:00 10/21/21 10:30 10/21/21 10:30 10/21/21 10:30 10/21/21 10:30 Temperature -Last 24 Hours Temperature 99.1 F Temperature 98.6 F Temperature 98.2 F Temperature 99.2 F Temperature 98.7 F Temperature 99.3 F - Labs CBC & Chem 7: 10/21/21 04:30 10/21/21 04:30 Labs: Abnormal lab results 10/20/21 10/20/21 10/20/21 Range/Units 11:41 11:41 11:50 WBC 20.2 H (4.5-11.0) K/mm3 RBC 2.81 L (3.65-5.03) M/mm3 Hgb 8.5 L (10.1-14.3) gm/dl Hct 24.3 L (30.3-42.9) % MCHC 35 H (30-34) % RDW 16.8 H (13.2-15.2) % Plt Count 481 H (140-440) K/mm3 ABG pH (7.350-7.450) pH Units ABG pO2 (80.0-90.0) mm Hg ABG HCO3 (20.0-26.0) mmol/L ABG Hemoglobin (12.0-16.0) gm/dl BUN 20 H (7-17) mg/dL Glucose 123 H (65-100) mg/dL POC Glucose 120 H (70-105) mg/dL Calcium 7.7 L (8.4-10.2) mg/dL Phosphorus 2.00 L (2.5-4.5) mg/dL 10/20/21 10/20/21 10/21/21 Range/Units 17:31 23:25 04:30 WBC 23.2 H (4.5-11.0) K/mm3 RBC 2.70 L (3.65-5.03) M/mm3 Hgb 7.9 L (10.1-14.3) gm/dl Hct 23.2 L (30.3-42.9) % MCHC (30-34) % RDW 17.2 H (13.2-15.2) % Plt Count (140-440) K/mm3 ABG pH (7.350-7.450) pH Units ABG pO2 (80.0-90.0) mm Hg ABG HCO3 (20.0-26.0) mmol/L ABG Hemoglobin (12.0-16.0) gm/dl BUN (7-17) mg/dL Glucose (65-100) mg/dL POC Glucose 125 H 119 H (70-105) mg/dL Calcium (8.4-10.2) mg/dL Phosphorus (2.5-4.5) mg/dL 10/21/21 10/21/21 10/21/21 Range/Units 04:30 05:26 09:05 WBC (4.5-11.0) K/mm3 RBC (3.65-5.03) M/mm3 Hgb (10.1-14.3) gm/dl Hct (30.3-42.9) % MCHC (30-34) % RDW (13.2-15.2) % Plt Count (140-440) K/mm3 ABG pH 7.509 H (7.350-7.450) pH Units ABG pO2 60.3 L (80.0-90.0) mm Hg ABG HCO3 26.2 H (20.0-26.0) mmol/L ABG Hemoglobin 6.7 L (12.0-16.0) gm/dl BUN 22 H (7-17) mg/dL Glucose 117 H (65-100) mg/dL POC Glucose 111 H (70-105) mg/dL Calcium 7.7 L (8.4-10.2) mg/dL Phosphorus (2.5-4.5) mg/dL 10/21/21 Range/Units 11:27 WBC (4.5-11.0) K/mm3 RBC (3.65-5.03) M/mm3 Hgb (10.1-14.3) gm/dl Hct (30.3-42.9) % MCHC (30-34) % RDW (13.2-15.2) % Plt Count (140-440) K/mm3 ABG pH (7.350-7.450) pH Units ABG pO2 (80.0-90.0) mm Hg ABG HCO3 (20.0-26.0) mmol/L ABG Hemoglobin (12.0-16.0) gm/dl BUN (7-17) mg/dL Glucose (65-100) mg/dL POC Glucose 114 H (70-105) mg/dL Calcium (8.4-10.2) mg/dL Phosphorus (2.5-4.5) mg/dL
--- NOTE | 2021-10-21 12:44 | Progress Note ---
Subjective - Reason for Consult Consult date: 10/21/21 Reason for consult: agitation - Chief Complaint Chief complaint: HPI: 31-year-old -[place] female presents to the emergency room reporting she has a kidney stone. Patient complains of allover body aches, headache, chills, lower back pain the worst nausea vomiting x1 day. Patient has not recently checked for Covid last Covid negative test was 3 weeks ago. Patient is not vaccinated. She denies any hematuria. She has a past medical history of hypertension is currently on hydrochlorothiazide 25 mg. She has no known drug allergies. The patient was seen today. She is on Bipap. She arouses when I call her name, but she's unable to be engaged. The nurse taking care of the patient says she's been anxious, restless, and not sleeping. REVIEW OF SYSTEMS Bipap MENTAL STATUS EXAMINATION Unable to assess Assessment and Plan Delirium Treatment Plan Change Lorazepam 1mg IV q4h prn anxiety Medical: per primary Sitter: per primary Disposition: Do not recommend acute psychiatric inpatient treatment Will follow. Thanks Case staffed with Dr. Lopez Mental Status Exam - Vital signs Last Vital Signs Temp 99.1 F 10/21/21 08:00 Pulse 120 H 10/21/21 12:24 Resp 40 H 10/21/21 12:24 BP 140/105 10/21/21 12:24 Pulse Ox 98 10/21/21 12:24
[2021-10-21] MEDS ORDERED: ENOXAPARIN 100 MG/1 ML INJ SUB-Q ONE (13:00)
--- NOTE | 2021-10-21 14:27 | Progress Note ---
Assessment and Plan Postop day #7 status post colostomy creation with closure of abdomen. Patient is afebrile and stable with tachycardia. increased leukocytosis. Awaiting full return of bowel function. Sputum culture positive for gram-negative rods. Patient is on appropriate antibiotics for sensitivity. Continue per ID. Respiratory insufficiency - continue BIPAP per pulmonary, may benefit from diuresis. Spoke with Dr. Bansal, if patient does not show significant improvement may send for CT scan of the chest at the same time scan abdomen and pelvis. Creatinine has normalized she is making good urine output. Continue supportive care. Postop day #10 status post colorectal anastomosis takedown, with abdominal washout and ABThera wound VAC. Postop day #18 status post laparoscopic converted to open left hemicolectomy with appendectomy for perforated appendicitis with fistulization to sigmoid colon. Subjective Date of service: 10/21/21 Narrative: Past 24 hours pt placed on BIPAP for worsening tachypnea. CXR shows worsening right sided infiltrates. Pt denies any abdominal pain and has not received pain medication today. Pt is arousable but this talkative than usual. Objective Vital Signs - 12hr 10/21/21 10/21/21 10/21/21 03:00 03:15 03:30 Temperature Pulse Rate 119 H 125 H Pulse Rate [ From Monitor] Pulse Rate [ 121 H Left] Respiratory 49 H 32 H 44 H Rate Blood Pressure 142/101 136/91 136/91 O2 Sat by Pulse Oximetry 10/21/21 10/21/21 10/21/21 04:00 04:30 05:00 Temperature 98.6 F Pulse Rate 128 H 120 H 121 H Pulse Rate [ 119 H From Monitor] Pulse Rate [ Left] Respiratory 43 H 44 H 42 H Rate Blood Pressure 136/91 136/91 145/105 O2 Sat by Pulse 95 Oximetry 10/21/21 10/21/21 10/21/21 05:30 06:00 06:30 Temperature Pulse Rate 122 H 116 H 119 H Pulse Rate [ From Monitor] Pulse Rate [ Left] Respiratory 42 H 15 35 H Rate Blood Pressure 139/97 139/93 139/93 O2 Sat by Pulse 93 93 97 Oximetry 10/21/21 10/21/21 10/21/21 07:00 07:30 08:00 Temperature 99.1 F Pulse Rate 111 H 119 H 119 H Pulse Rate [ 119 H From Monitor] Pulse Rate [ Left] Respiratory 48 H 21 48 H Rate Blood Pressure 144/98 144/98 139/94 O2 Sat by Pulse 98 98 Oximetry 10/21/21 10/21/21 10/21/21 08:30 09:00 09:05 Temperature Pulse Rate 116 H 114 H Pulse Rate [ From Monitor] Pulse Rate [ Left] Respiratory 38 H 42 H Rate Blood Pressure 139/94 139/94 O2 Sat by Pulse 99 100 100 Oximetry 10/21/21 10/21/21 10/21/21 09:10 09:30 10:00 Temperature Pulse Rate 110 H 108 H 118 H Pulse Rate [ From Monitor] Pulse Rate [ Left] Respiratory 28 H 35 H 40 H Rate Blood Pressure 142/99 143/102 O2 Sat by Pulse 100 100 99 Oximetry 10/21/21 10/21/21 10/21/21 10:30 11:00 11:30 Temperature Pulse Rate 106 H 115 H 127 H Pulse Rate [ From Monitor] Pulse Rate [ Left] Respiratory 35 H 36 H 46 H Rate Blood Pressure 143/102 150/104 150/104 O2 Sat by Pulse 100 100 98 Oximetry 10/21/21 10/21/21 10/21/21 12:00 12:05 12:24 Temperature 98.3 F Pulse Rate 127 H 120 H Pulse Rate [ 120 H From Monitor] Pulse Rate [ Left] Respiratory 58 H 40 H Rate Blood Pressure 150/104 140/105 O2 Sat by Pulse 99 99 98 Oximetry 10/21/21 10/21/21 12:30 13:00 Temperature Pulse Rate 109 H 118 H Pulse Rate [ From Monitor] Pulse Rate [ Left] Respiratory 39 H 45 H Rate Blood Pressure 140/105 142/94 O2 Sat by Pulse 100 97 Oximetry - General physical appearance well developed, no distress, no pain - ENT no hearing loss - Respiratory other (tachypnic) - Abdomen soft, not tender, other (midline incision intact, mild serous drainage. YURIDIA drain clear serous, ostomy pink with green drainage. no air in bag. left drain unchanged) - Labs 10/21/21 04:30 10/21/21 04:30 Diabetes panel 10/21/21 Range/Units 04:30 Sodium 137 (137-145) mmol/L Potassium 3.9 (3.6-5.0) mmol/L Chloride 100.3 (98-107) mmol/L Carbon Dioxide 26 (22-30) mmol/L BUN 22 H (7-17) mg/dL Creatinine 0.9 (0.6-1.2) mg/dL Glucose 117 H (65-100) mg/dL Calcium 7.7 L (8.4-10.2) mg/dL Calcium panel 10/21/21 10/21/21 Range/Units 04:30 04:30 Calcium 7.7 L (8.4-10.2) mg/dL Phosphorus 2.50 D (2.5-4.5) mg/dL Pituitary panel 10/21/21 Range/Units 04:30 Sodium 137 (137-145) mmol/L Potassium 3.9 (3.6-5.0) mmol/L Chloride 100.3 (98-107) mmol/L Carbon Dioxide 26 (22-30) mmol/L BUN 22 H (7-17) mg/dL Creatinine 0.9 (0.6-1.2) mg/dL Glucose 117 H (65-100) mg/dL Calcium 7.7 L (8.4-10.2) mg/dL Adrenal panel 10/21/21 Range/Units 04:30 Sodium 137 (137-145) mmol/L Potassium 3.9 (3.6-5.0) mmol/L Chloride 100.3 (98-107) mmol/L Carbon Dioxide 26 (22-30) mmol/L BUN 22 H (7-17) mg/dL Creatinine 0.9 (0.6-1.2) mg/dL Glucose 117 H (65-100) mg/dL Calcium 7.7 L (8.4-10.2) mg/dL
--- NOTE | 2021-10-21 16:31 | Progress Note ---
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 Open left hemicolectomy and partial omentectomy Peritonitis Leukocytosis Diverticulitis with absces -CT abd/pelvis showed diverticulitis with abscess -General surgery following, assistance appreciated -s/p diagnositic laparatomy and drain placement 09/26/2021 Returned to the OR on 09/30/2021 for left hemicolectomy, appendectomy, and partial omentectomy -Wound culture +VRE Acute renal failure 2/ ATN/Vasomotor nephropathy Acute blood loss anemia Gross Hematuria-resolved -09/08 to surgical procedures-- c/f ureteral injury -s/p 3 units of pRBCs since admission NIPPV initiated One dose of therapeutic Enoxaparin given, she is unable to lay flat for CTA. Lower extremity dopplers ordered. Start Precedex fro agitation and anxiety management Transfer back to the ICU ffor closer monitoring Plan for CTA r/o PE and CT abdomen and pelvis once her respiratory status is more stable. Anticipate the imaging studies can be done tomorrow - continue to titrate supplemental oxygen to keep SPO2 88-90% -CXR , ABG as indicated -trend temperature curve, trend WCC -Antibiotics per ID. -NPO, TPN for nutritional support - continue bronchodilators with pulmonary hygiene per RT -Incentive spirometry; PT/OT, increase activity as tolerated - Accuchecks with glycemic control per SSI (While critically ill target blood glucose of 140-180 mg/dL; avoid hypoglycemia) - continue to avoid benzodiazepines, reduce the possibility of delirium - Maintenance of sleep-wake cycle, avoid delirium -Supportive transfusions, to keep HgB >7g/dL -Avoid nephrotoxins and dose all medications for GFR and CrCL - mobility, off loading and frequent turning to prevent pressure ulcer - Monitor hemodynamics closely - continue other care per attending / other consultants CONDITION: FAIR PROGNOSIS: GUARDED CODE STATUS: FULL CODE Critical care time 33 minutes Subjective Date of service: 10/21/21 Principal diagnosis: BRYANNA Interval history: Patient is seen today for: Septic shock; AHRF; Anemia; Pneumonia (Aspiration); 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 Tachypnic, ABG shows resp alkalosis with relative hypoxemia. Objective Vital Signs - 12hr 10/21/21 10/21/21 10/21/21 05:00 05:30 06:00 Temperature Pulse Rate 121 H 122 H 116 H Pulse Rate [ From Monitor] Respiratory 42 H 42 H 15 Rate Blood Pressure 145/105 139/97 139/93 O2 Sat by Pulse 93 93 Oximetry 10/21/21 10/21/21 10/21/21 06:30 07:00 07:30 Temperature Pulse Rate 119 H 111 H 119 H Pulse Rate [ From Monitor] Respiratory 35 H 48 H 21 Rate Blood Pressure 139/93 144/98 144/98 O2 Sat by Pulse 97 98 Oximetry 10/21/21 10/21/21 10/21/21 08:00 08:30 09:00 Temperature 99.1 F Pulse Rate 119 H 116 H 114 H Pulse Rate [ 119 H From Monitor] Respiratory 48 H 38 H 42 H Rate Blood Pressure 139/94 139/94 139/94 O2 Sat by Pulse 98 99 100 Oximetry 10/21/21 10/21/21 10/21/21 09:05 09:10 09:30 Temperature Pulse Rate 110 H 108 H Pulse Rate [ From Monitor] Respiratory 28 H 35 H Rate Blood Pressure 142/99 O2 Sat by Pulse 100 100 100 Oximetry 10/21/21 10/21/21 10/21/21 10:00 10:30 11:00 Temperature Pulse Rate 118 H 106 H 115 H Pulse Rate [ From Monitor] Respiratory 40 H 35 H 36 H Rate Blood Pressure 143/102 143/102 150/104 O2 Sat by Pulse 99 100 100 Oximetry 10/21/21 10/21/21 10/21/21 11:30 12:00 12:05 Temperature 98.3 F Pulse Rate 127 H 127 H Pulse Rate [ 120 H From Monitor] Respiratory 46 H 58 H Rate Blood Pressure 150/104 150/104 O2 Sat by Pulse 98 99 99 Oximetry 10/21/21 10/21/21 10/21/21 12:24 12:30 13:00 Temperature Pulse Rate 120 H 109 H 118 H Pulse Rate [ From Monitor] Respiratory 40 H 39 H 45 H Rate Blood Pressure 140/105 140/105 142/94 O2 Sat by Pulse 98 100 97 Oximetry 10/21/21 10/21/21 10/21/21 13:30 14:00 14:30 Temperature Pulse Rate 106 H 113 H 118 H Pulse Rate [ From Monitor] Respiratory 34 H 37 H 32 H Rate Blood Pressure 142/94 145/102 145/102 O2 Sat by Pulse 98 99 100 Oximetry 10/21/21 10/21/21 10/21/21 15:00 15:30 16:00 Temperature Pulse Rate 120 H 124 H 107 H Pulse Rate [ From Monitor] Respiratory 36 H 37 H 24 Rate Blood Pressure 139/94 139/94 128/87 O2 Sat by Pulse 100 100 100 Oximetry Constitutional: alert, agitated, appears uncomfortable, other (in moderate resp distress) Eyes: non-icteric ENT: oropharynx moist Neck: supple, other (RIJCVL) Effort: very labored Ascultation: Bilateral: diminished breath sounds, rhonchi Percussion: Bilateral: not dull Cardiovascular: regular rate and rhythm, other (S1,S2) Gastrointestinal: hypoactive bowel sounds, other (YURIDIA drains, anterior abdominal dressings, Doss catheter) Integumentary: other (tatooed) Extremities: cool, edema Neurologic: normal mental status, non-focal exam, pupils equal and round, motor strength normal and Psychiatric: anxious CBC and BMP: 10/22/21 09:02 10/22/21 Unknown ABG, PT/INR, D-dimer: ABG ABG pH 7.509 pH Units (7.350-7.450) H 10/21/21 09:05 ABG pCO2 33.7 mm Hg 10/21/21 09:05 ABG pO2 60.3 mm Hg (80.0-90.0) L 10/21/21 09:05 ABG O2 Saturation 97.5 % (95.0-99.0) 10/21/21 09:05 PT/INR, D-dimer PT 19.0 Sec. (12.2-14.9) H 10/14/21 04:05 INR 1.41 (0.87-1.13) H 10/14/21 04:05 D-Dimer > 26612 ng/mlDDU (0-234) H 10/09/21 08:45 Abnormal lab findings: Abnormal Labs 09/24/21 09/24/21 09/24/21 14:49 14:58 14:58 WBC 32.4 H RBC Hgb Hct MCH MCHC RDW Plt Count 535 H [place] # (Auto) Seg Neutrophils % Seg Neuts % (Manual) 82.0 H Lymphocytes % (Manual) 2.0 L Monocytes % (Manual) Nucleated RBC % Seg Neutrophils # Seg Neutrophils # Man 26.6 H Lymphocytes # (Manual) 0.6 L Monocytes # (Manual) 1.6 H PT INR D-Dimer ABG pH ABG pO2 ABG HCO3 ABG O2 Saturation ABG Base Excess ABG Hemoglobin Oxyhemoglobin Sodium 134 L Potassium 3.5 L Chloride 97.6 L Carbon Dioxide BUN Creatinine Glucose 119 H POC Glucose Lactic Acid Calcium Phosphorus Magnesium Ferritin ALT Lactate Dehydrogenase Total Creatine Kinase C-Reactive Protein Total Protein 6.1 L Albumin 3.3 L Urine Blood Urine WBC (Auto) U Epithel Cells (Auto) 18.0 H Crossmatch 09/25/21 09/25/21 09/26/21 05:47 05:47 04:20 WBC 25.4 H 23.6 H RBC 3.54 L Hgb Hct MCH MCHC RDW Plt Count 466 H 486 H [place] # (Auto) Seg Neutrophils % Seg Neuts % (Manual) 93.0 H 86.0 H Lymphocytes % (Manual) 4.0 L 3.0 L Monocytes % (Manual) Nucleated RBC % Seg Neutrophils # Seg Neutrophils # Man 23.6 H 20.3 H Lymphocytes # (Manual) 1.0 L 0.7 L Monocytes # (Manual) 0.9 H PT INR D-Dimer ABG pH ABG pO2 ABG HCO3 ABG O2 Saturation ABG Base Excess ABG Hemoglobin Oxyhemoglobin Sodium 136 L Potassium 3.0 L Chloride Carbon Dioxide 21 L BUN Creatinine Glucose POC Glucose Lactic Acid Calcium 7.8 L Phosphorus Magnesium Ferritin ALT Lactate Dehydrogenase Total Creatine Kinase C-Reactive Protein Total Protein Albumin Urine Blood Urine WBC (Auto) U Epithel Cells (Auto) Crossmatch 09/26/21 09/27/21 09/27/21 04:20 08:28 08:28 WBC 20.6 H RBC 3.42 L Hgb 9.9 L Hct 29.5 L D MCH MCHC RDW Plt Count [place] # (Auto) Seg Neutrophils % Seg Neuts % (Manual) 94.1 H Lymphocytes % (Manual) 1.0 L Monocytes % (Manual) Nucleated RBC % Seg Neutrophils # Seg Neutrophils # Man 19.4 H Lymphocytes # (Manual) 0.2 L Monocytes # (Manual) PT INR D-Dimer ABG pH ABG pO2 ABG HCO3 ABG O2 Saturation ABG Base Excess ABG Hemoglobin Oxyhemoglobin Sodium Potassium 3.2 L Chloride Carbon Dioxide 20 L BUN Creatinine Glucose 137 H POC Glucose Lactic Acid Calcium 8.3 L 8.2 L Phosphorus Magnesium Ferritin ALT Lactate Dehydrogenase Total Creatine Kinase C-Reactive Protein Total Protein Albumin Urine Blood Urine WBC (Auto) U Epithel Cells (Auto) Crossmatch 09/28/21 09/28/21 09/29/21 04:55 15:35 07:02 WBC 15.1 H 16.5 H RBC 3.34 L 3.20 L Hgb 9.3 L 9.1 L Hct 28.7 L 27.3 L MCH MCHC RDW 15.3 H Plt Count 444 H 469 H [place] # (Auto) 0.9 H Seg Neutrophils % 89.3 H Seg Neuts % (Manual) 88.0 H 80.0 H Lymphocytes % (Manual) 9.0 L 8.0 L Monocytes % (Manual) Nucleated RBC % Seg Neutrophils # 14.0 H Seg Neutrophils # Man 13.3 H 13.2 H Lymphocytes # (Manual) Monocytes # (Manual) PT INR D-Dimer ABG pH ABG pO2 ABG HCO3 ABG O2 Saturation ABG Base Excess ABG Hemoglobin Oxyhemoglobin Sodium Potassium 3.3 L Chloride 109.4 H Carbon Dioxide 20 L BUN Creatinine 0.5 L Glucose POC Glucose Lactic Acid Calcium 7.9 L Phosphorus Magnesium Ferritin ALT Lactate Dehydrogenase Total Creatine Kinase C-Reactive Protein Total Protein Albumin Urine Blood Urine WBC (Auto) U Epithel Cells (Auto) Crossmatch 09/30/21 09/30/21 10/01/21 05:40 05:40 07:49 WBC 17.4 H 17.9 H RBC 3.37 L 3.32 L Hgb 9.2 L 9.3 L Hct 28.4 L 28.3 L MCH 27 L MCHC RDW 15.4 H 15.5 H Plt Count 530 H 604 H [place] # (Auto) Seg Neutrophils % Seg Neuts % (Manual) 91.0 H 72.0 H Lymphocytes % (Manual) 9.0 L 1.0 L Monocytes % (Manual) 8.0 H Nucleated RBC % 1.0 H Seg Neutrophils # Seg Neutrophils # Man 15.8 H 12.9 H Lymphocytes # (Manual) 0.2 L Monocytes # (Manual) 1.4 H PT INR D-Dimer ABG pH ABG pO2 ABG HCO3 ABG O2 Saturation ABG Base Excess ABG Hemoglobin Oxyhemoglobin Sodium Potassium 3.5 L Chloride Carbon Dioxide 21 L BUN Creatinine 0.5 L Glucose POC Glucose Lactic Acid Calcium 8.0 L Phosphorus Magnesium Ferritin ALT Lactate Dehydrogenase Total Creatine Kinase C-Reactive Protein Total Protein Albumin Urine Blood Urine WBC (Auto) U Epithel Cells (Auto) Crossmatch 10/01/21 10/01/21 10/02/21 07:49 10:45 05:41 WBC 23.2 H RBC 2.90 L Hgb 7.9 L Hct 24.8 L MCH 27 L MCHC RDW 15.3 H Plt Count 621 H [place] # (Auto) Seg Neutrophils % Seg Neuts % (Manual) 88.0 H Lymphocytes % (Manual) 2.0 L Monocytes % (Manual) Nucleated RBC % Seg Neutrophils # Seg Neutrophils # Man 20.4 H Lymphocytes # (Manual) 0.5 L Monocytes # (Manual) 1.4 H PT INR D-Dimer ABG pH ABG pO2 ABG HCO3 ABG O2 Saturation ABG Base Excess ABG Hemoglobin Oxyhemoglobin Sodium Potassium Chloride Carbon Dioxide 20 L BUN Creatinine 0.5 L Glucose POC Glucose Lactic Acid Calcium 7.6 L Phosphorus Magnesium Ferritin ALT Lactate Dehydrogenase Total Creatine Kinase C-Reactive Protein Total Protein Albumin Urine Blood Urine WBC (Auto) U Epithel Cells (Auto) Crossmatch See Detail 10/02/21 10/02/21 10/02/21 05:41 07:47 11:10 WBC RBC Hgb Hct MCH MCHC RDW Plt Count [place] # (Auto) Seg Neutrophils % Seg Neuts % (Manual) Lymphocytes % (Manual) Monocytes % (Manual) Nucleated RBC % Seg Neutrophils # Seg Neutrophils # Man Lymphocytes # (Manual) Monocytes # (Manual) PT INR D-Dimer ABG pH ABG pO2 ABG HCO3 ABG O2 Saturation ABG Base Excess ABG Hemoglobin Oxyhemoglobin Sodium Potassium Chloride Carbon Dioxide BUN Creatinine Glucose 130 H POC Glucose 145 H 120 H Lactic Acid Calcium 6.9 L Phosphorus Magnesium Ferritin ALT Lactate Dehydrogenase Total Creatine Kinase C-Reactive Protein Total Protein Albumin Urine Blood Urine WBC (Auto) U Epithel Cells (Auto) Crossmatch 10/02/21 10/03/21 10/03/21 16:14 04:55 04:55 WBC 26.1 H RBC 2.31 L Hgb 6.3 L Hct 19.8 L* MCH MCHC RDW 15.9 H Plt Count 598 H [place] # (Auto) Seg Neutrophils % Seg Neuts % (Manual) 82.0 H Lymphocytes % (Manual) 1.0 L Monocytes % (Manual) 10.0 H Nucleated RBC % Seg Neutrophils # Seg Neutrophils # Man 21.4 H Lymphocytes # (Manual) 0.3 L Monocytes # (Manual) 2.6 H PT INR D-Dimer ABG pH ABG pO2 ABG HCO3 ABG O2 Saturation ABG Base Excess ABG Hemoglobin Oxyhemoglobin Sodium Potassium Chloride Carbon Dioxide BUN 22 H Creatinine 1.7 H D Glucose 145 H POC Glucose 109 H Lactic Acid Calcium 6.4 L Phosphorus Magnesium 2.40 H Ferritin ALT Lactate Dehydrogenase Total Creatine Kinase C-Reactive Protein Total Protein 4.2 L Albumin 1.6 L Urine Blood Urine WBC (Auto) U Epithel Cells (Auto) Crossmatch 10/03/21 10/03/21 10/03/21 07:15 11:49 17:06 WBC RBC Hgb Hct MCH MCHC RDW Plt Count [place] # (Auto) Seg Neutrophils % Seg Neuts % (Manual) Lymphocytes % (Manual) Monocytes % (Manual) Nucleated RBC % Seg Neutrophils # Seg Neutrophils # Man Lymphocytes # (Manual) Monocytes # (Manual) PT INR D-Dimer ABG pH ABG pO2 ABG HCO3 ABG O2 Saturation ABG Base Excess ABG Hemoglobin Oxyhemoglobin Sodium Potassium Chloride Carbon Dioxide BUN Creatinine Glucose POC Glucose 162 H 171 H 174 H Lactic Acid Calcium Phosphorus Magnesium Ferritin ALT Lactate Dehydrogenase Total Creatine Kinase C-Reactive Protein Total Protein Albumin Urine Blood Urine WBC (Auto) U Epithel Cells (Auto) Crossmatch 10/03/21 10/04/21 10/04/21 23:31 04:44 04:44 WBC 26.4 H RBC 2.33 L Hgb 6.6 L Hct 19.4 L* MCH MCHC RDW 16.1 H Plt Count 602 H [place] # (Auto) Seg Neutrophils % Seg Neuts % (Manual) 80.0 H Lymphocytes % (Manual) 5.0 L Monocytes % (Manual) Nucleated RBC % Seg Neutrophils # Seg Neutrophils # Man 21.1 H Lymphocytes # (Manual) Monocytes # (Manual) 1.8 H PT INR D-Dimer ABG pH ABG pO2 ABG HCO3 ABG O2 Saturation ABG Base Excess ABG Hemoglobin Oxyhemoglobin Sodium 135 L Potassium 3.4 L Chloride Carbon Dioxide 21 L BUN 28 H Creatinine 2.0 H Glucose 171 H POC Glucose 179 H Lactic Acid Calcium 6.7 L Phosphorus 1.30 L D Magnesium 2.40 H Ferritin ALT Lactate Dehydrogenase Total Creatine Kinase C-Reactive Protein Total Protein Albumin Urine Blood Urine WBC (Auto) U Epithel Cells (Auto) Crossmatch 10/04/21 10/04/21 10/04/21 05:25 12:01 13:30 WBC RBC Hgb Hct MCH MCHC RDW Plt Count [place] # (Auto) Seg Neutrophils % Seg Neuts % (Manual) Lymphocytes % (Manual) Monocytes % (Manual) Nucleated RBC % Seg Neutrophils # Seg Neutrophils # Man Lymphocytes # (Manual) Monocytes # (Manual) PT INR D-Dimer ABG pH ABG pO2 ABG HCO3 ABG O2 Saturation ABG Base Excess ABG Hemoglobin Oxyhemoglobin Sodium Potassium Chloride Carbon Dioxide BUN Creatinine Glucose POC Glucose 174 H 172 H Lactic Acid Calcium Phosphorus Magnesium Ferritin ALT Lactate Dehydrogenase Total Creatine Kinase C-Reactive Protein Total Protein Albumin Urine Blood Urine WBC (Auto) U Epithel Cells (Auto) Crossmatch See Detail 10/04/21 10/04/21 10/04/21 16:47 20:28 22:23 WBC RBC Hgb 8.5 L Hct 25.1 L MCH MCHC RDW Plt Count [place] # (Auto) Seg Neutrophils % Seg Neuts % (Manual) Lymphocytes % (Manual) Monocytes % (Manual) Nucleated RBC % Seg Neutrophils # Seg Neutrophils # Man Lymphocytes # (Manual) Monocytes # (Manual) PT INR D-Dimer ABG pH ABG pO2 ABG HCO3 ABG O2 Saturation ABG Base Excess ABG Hemoglobin Oxyhemoglobin Sodium Potassium Chloride Carbon Dioxide BUN Creatinine Glucose POC Glucose 135 H 152 H Lactic Acid Calcium Phosphorus Magnesium Ferritin ALT Lactate Dehydrogenase Total Creatine Kinase C-Reactive Protein Total Protein Albumin Urine Blood Urine WBC (Auto) U Epithel Cells (Auto) Crossmatch 10/05/21 10/05/21 10/05/21 04:40 04:40 04:40 WBC 24.7 H RBC 3.02 L Hgb 8.4 L Hct 25.5 L MCH MCHC RDW 16.2 H Plt Count 644 H [place] # (Auto) Seg Neutrophils % Seg Neuts % (Manual) 91.0 H Lymphocytes % (Manual) 7.0 L Monocytes % (Manual) Nucleated RBC % Seg Neutrophils # Seg Neutrophils # Man 22.5 H Lymphocytes # (Manual) Monocytes # (Manual) PT 17.8 H INR 1.31 H D-Dimer ABG pH ABG pO2 ABG HCO3 ABG O2 Saturation ABG Base Excess ABG Hemoglobin Oxyhemoglobin Sodium 135 L Potassium Chloride Carbon Dioxide BUN 29 H Creatinine 2.1 H Glucose 156 H POC Glucose Lactic Acid Calcium 7.6 L Phosphorus 1.90 L D Magnesium Ferritin ALT Lactate Dehydrogenase Total Creatine Kinase C-Reactive Protein Total Protein 5.2 L D Albumin 1.8 L Urine Blood Urine WBC (Auto) U Epithel Cells (Auto) Crossmatch 10/05/21 10/05/21 10/05/21 05:08 18:17 23:37 WBC RBC Hgb Hct MCH MCHC RDW Plt Count [place] # (Auto) Seg Neutrophils % Seg Neuts % (Manual) Lymphocytes % (Manual) Monocytes % (Manual) Nucleated RBC % Seg Neutrophils # Seg Neutrophils # Man Lymphocytes # (Manual) Monocytes # (Manual) PT INR D-Dimer ABG pH ABG pO2 ABG HCO3 ABG O2 Saturation ABG Base Excess ABG Hemoglobin Oxyhemoglobin Sodium Potassium Chloride Carbon Dioxide BUN Creatinine Glucose POC Glucose 156 H 119 H 130 H Lactic Acid Calcium Phosphorus Magnesium Ferritin ALT Lactate Dehydrogenase Total Creatine Kinase C-Reactive Protein Total Protein Albumin Urine Blood Urine WBC (Auto) U Epithel Cells (Auto) Crossmatch 10/06/21 10/06/21 10/06/21 04:27 05:27 05:27 WBC 23.4 H RBC 2.84 L Hgb 7.8 L Hct 23.9 L MCH MCHC RDW 16.2 H Plt Count 712 H [place] # (Auto) Seg Neutrophils % Seg Neuts % (Manual) Lymphocytes % (Manual) Monocytes % (Manual) Nucleated RBC % Seg Neutrophils # Seg Neutrophils # Man Lymphocytes # (Manual) Monocytes # (Manual) PT INR D-Dimer ABG pH ABG pO2 ABG HCO3 ABG O2 Saturation ABG Base Excess ABG Hemoglobin Oxyhemoglobin Sodium 134 L Potassium Chloride Carbon Dioxide 20 L BUN 28 H Creatinine 1.9 H Glucose 132 H POC Glucose 132 H Lactic Acid Calcium 7.8 L Phosphorus Magnesium Ferritin ALT Lactate Dehydrogenase Total Creatine Kinase 242 H C-Reactive Protein Total Protein Albumin Urine Blood Urine WBC (Auto) U Epithel Cells (Auto) Crossmatch 10/06/21 10/06/21 10/06/21 16:40 20:50 23:39 WBC RBC Hgb Hct MCH MCHC RDW Plt Count [place] # (Auto) Seg Neutrophils % Seg Neuts % (Manual) Lymphocytes % (Manual) Monocytes % (Manual) Nucleated RBC % Seg Neutrophils # Seg Neutrophils # Man Lymphocytes # (Manual) Monocytes # (Manual) PT INR D-Dimer ABG pH ABG pO2 ABG HCO3 ABG O2 Saturation ABG Base Excess ABG Hemoglobin Oxyhemoglobin Sodium Potassium Chloride Carbon Dioxide BUN Creatinine Glucose POC Glucose 133 H 116 H 132 H Lactic Acid Calcium Phosphorus Magnesium Ferritin ALT Lactate Dehydrogenase Total Creatine Kinase C-Reactive Protein Total Protein Albumin Urine Blood Urine WBC (Auto) U Epithel Cells (Auto) Crossmatch 10/07/21 10/07/21 10/07/21 05:09 05:13 09:43 WBC 22.3 H RBC 2.81 L Hgb 7.8 L Hct 24.0 L MCH MCHC RDW 16.5 H Plt Count 733 H [place] # (Auto) Seg Neutrophils % Seg Neuts % (Manual) 85.0 H Lymphocytes % (Manual) 1.0 L Monocytes % (Manual) Nucleated RBC % Seg Neutrophils # Seg Neutrophils # Man 19.0 H Lymphocytes # (Manual) 0.2 L Monocytes # (Manual) 1.6 H PT INR D-Dimer ABG pH ABG pO2 ABG HCO3 ABG O2 Saturation ABG Base Excess ABG Hemoglobin Oxyhemoglobin Sodium 136 L Potassium Chloride Carbon Dioxide 20 L BUN 29 H Creatinine 1.9 H Glucose 140 H POC Glucose 139 H Lactic Acid Calcium 7.6 L Phosphorus Magnesium Ferritin ALT Lactate Dehydrogenase Total Creatine Kinase C-Reactive Protein Total Protein Albumin Urine Blood Urine WBC (Auto) U Epithel Cells (Auto) Crossmatch 10/07/21 10/07/21 10/08/21 11:38 17:44 00:20 WBC RBC Hgb Hct MCH MCHC RDW Plt Count [place] # (Auto) Seg Neutrophils % Seg Neuts % (Manual) Lymphocytes % (Manual) Monocytes % (Manual) Nucleated RBC % Seg Neutrophils # Seg Neutrophils # Man Lymphocytes # (Manual) Monocytes # (Manual) PT INR D-Dimer ABG pH ABG pO2 ABG HCO3 ABG O2 Saturation ABG Base Excess ABG Hemoglobin Oxyhemoglobin Sodium Potassium Chloride Carbon Dioxide BUN Creatinine Glucose POC Glucose 126 H 113 H 129 H Lactic Acid Calcium Phosphorus Magnesium Ferritin ALT Lactate Dehydrogenase Total Creatine Kinase C-Reactive Protein Total Protein Albumin Urine Blood Urine WBC (Auto) U Epithel Cells (Auto) Crossmatch 10/08/21 10/08/21 10/08/21 05:26 05:26 05:29 WBC 21.8 H RBC 2.84 L Hgb 7.8 L Hct 24.1 L MCH 27 L MCHC RDW 16.5 H Plt Count 789 H [place] # (Auto) Seg Neutrophils % Seg Neuts % (Manual) Lymphocytes % (Manual) Monocytes % (Manual) Nucleated RBC % Seg Neutrophils # Seg Neutrophils # Man Lymphocytes # (Manual) Monocytes # (Manual) PT INR D-Dimer ABG pH ABG pO2 ABG HCO3 ABG O2 Saturation ABG Base Excess ABG Hemoglobin Oxyhemoglobin Sodium 136 L Potassium Chloride Carbon Dioxide 20 L BUN 31 H Creatinine 1.7 H Glucose 134 H POC Glucose 123 H Lactic Acid Calcium 7.9 L Phosphorus 4.60 H D Magnesium Ferritin ALT Lactate Dehydrogenase Total Creatine Kinase C-Reactive Protein Total Protein Albumin Urine Blood Urine WBC (Auto) U Epithel Cells (Auto) Crossmatch 10/08/21 10/08/21 10/08/21 11:53 17:07 20:08 WBC RBC Hgb Hct MCH MCHC RDW Plt Count [place] # (Auto) Seg Neutrophils % Seg Neuts % (Manual) Lymphocytes % (Manual) Monocytes % (Manual) Nucleated RBC % Seg Neutrophils # Seg Neutrophils # Man Lymphocytes # (Manual) Monocytes # (Manual) PT INR D-Dimer ABG pH 7.308 L ABG pO2 40.2 L ABG HCO3 15.7 L ABG O2 Saturation 68 L ABG Base Excess -9.6 L ABG Hemoglobin 9.7 L Oxyhemoglobin 67.8 L Sodium Potassium Chloride Carbon Dioxide BUN Creatinine Glucose POC Glucose 128 H 139 H Lactic Acid Calcium Phosphorus Magnesium Ferritin ALT Lactate Dehydrogenase Total Creatine Kinase C-Reactive Protein Total Protein Albumin Urine Blood Urine WBC (Auto) U Epithel Cells (Auto) Crossmatch 03/04/22 03/04/22 03/04/22 21:30 22:55 22:55 WBC RBC Hgb Hct MCH MCHC RDW Plt Count [place] # (Auto) Seg Neutrophils % Seg Neuts % (Manual) Lymphocytes % (Manual) Monocytes % (Manual) Nucleated RBC % Seg Neutrophils # Seg Neutrophils # Man Lymphocytes # (Manual) Monocytes # (Manual) PT INR D-Dimer ABG pH ABG pO2 43.8 L ABG HCO3 19.5 L ABG O2 Saturation 70.7 L ABG Base Excess -5.3 L ABG Hemoglobin 8.6 L Oxyhemoglobin 69.4 L Sodium Potassium Chloride Carbon Dioxide BUN Creatinine Glucose POC Glucose Lactic Acid 2.50 H* Calcium Phosphorus Magnesium Ferritin ALT Lactate Dehydrogenase Total Creatine Kinase C-Reactive Protein Total Protein Albumin Urine Blood Urine WBC (Auto) U Epithel Cells (Auto) Crossmatch See Detail 10/09/21 10/09/21 10/09/21 03:12 05:31 05:31 WBC 20.3 H RBC 2.70 L Hgb 7.4 L Hct 23.1 L MCH 27 L MCHC RDW 16.6 H Plt Count 786 H [place] # (Auto) Seg Neutrophils % Seg Neuts % (Manual) 88.0 H Lymphocytes % (Manual) 3.0 L Monocytes % (Manual) Nucleated RBC % Seg Neutrophils # Seg Neutrophils # Man 17.9 H Lymphocytes # (Manual) 0.6 L Monocytes # (Manual) 1.2 H PT INR D-Dimer ABG pH ABG pO2 ABG HCO3 ABG O2 Saturation ABG Base Excess ABG Hemoglobin Oxyhemoglobin Sodium 136 L Potassium Chloride Carbon Dioxide 20 L BUN 32 H Creatinine 1.5 H Glucose 214 H POC Glucose 190 H Lactic Acid Calcium 7.5 L Phosphorus Magnesium Ferritin ALT Lactate Dehydrogenase Total Creatine Kinase C-Reactive Protein Total Protein 5.8 L Albumin 2.3 L Urine Blood Urine WBC (Auto) U Epithel Cells (Auto) Crossmatch 10/09/21 10/09/21 10/09/21 05:31 05:31 05:31 WBC RBC Hgb Hct MCH MCHC RDW Plt Count [place] # (Auto) Seg Neutrophils % Seg Neuts % (Manual) Lymphocytes % (Manual) Monocytes % (Manual) Nucleated RBC % Seg Neutrophils # Seg Neutrophils # Man Lymphocytes # (Manual) Monocytes # (Manual) PT INR D-Dimer ABG pH ABG pO2 ABG HCO3 ABG O2 Saturation ABG Base Excess ABG Hemoglobin Oxyhemoglobin Sodium Potassium Chloride Carbon Dioxide BUN Creatinine Glucose POC Glucose Lactic Acid 2.20 H* Calcium Phosphorus Magnesium Ferritin 751.9 H ALT Lactate Dehydrogenase Total Creatine Kinase C-Reactive Protein 15.90 H Total Protein Albumin Urine Blood Urine WBC (Auto) U Epithel Cells (Auto) Crossmatch 10/09/21 10/09/21 10/09/21 05:31 08:45 12:08 WBC RBC Hgb Hct MCH MCHC RDW Plt Count [place] # (Auto) Seg Neutrophils % Seg Neuts % (Manual) Lymphocytes % (Manual) Monocytes % (Manual) Nucleated RBC % Seg Neutrophils # Seg Neutrophils # Man Lymphocytes # (Manual) Monocytes # (Manual) PT INR D-Dimer > 25689 H ABG pH ABG pO2 54.3 L ABG HCO3 ABG O2 Saturation 86.6 L ABG Base Excess -2.6 L ABG Hemoglobin 7.2 L Oxyhemoglobin 85.3 L Sodium Potassium Chloride Carbon Dioxide BUN Creatinine Glucose POC Glucose Lactic Acid Calcium Phosphorus Magnesium Ferritin ALT Lactate Dehydrogenase 472 H Total Creatine Kinase C-Reactive Protein Total Protein Albumin Urine Blood Urine WBC (Auto) U Epithel Cells (Auto) Crossmatch 10/09/21 10/09/21 10/10/21 12:19 17:43 00:30 WBC RBC Hgb Hct MCH MCHC RDW Plt Count [place] # (Auto) Seg Neutrophils % Seg Neuts % (Manual) Lymphocytes % (Manual) Monocytes % (Manual) Nucleated RBC % Seg Neutrophils # Seg Neutrophils # Man Lymphocytes # (Manual) Monocytes # (Manual) PT INR D-Dimer ABG pH ABG pO2 ABG HCO3 ABG O2 Saturation ABG Base Excess ABG Hemoglobin Oxyhemoglobin Sodium Potassium Chloride Carbon Dioxide BUN Creatinine Glucose POC Glucose 151 H 136 H 132 H Lactic Acid Calcium Phosphorus Magnesium Ferritin ALT Lactate Dehydrogenase Total Creatine Kinase C-Reactive Protein Total Protein Albumin Urine Blood Urine WBC (Auto) U Epithel Cells (Auto) Crossmatch 10/10/21 10/10/21 10/10/21 04:10 04:10 05:41 WBC 20.8 H RBC 2.54 L Hgb 7.1 L Hct 21.8 L MCH MCHC RDW 16.6 H Plt Count 740 H [place] # (Auto) Seg Neutrophils % Seg Neuts % (Manual) Lymphocytes % (Manual) Monocytes % (Manual) Nucleated RBC % Seg Neutrophils # Seg Neutrophils # Man Lymphocytes # (Manual) Monocytes # (Manual) PT INR D-Dimer ABG pH ABG pO2 ABG HCO3 ABG O2 Saturation ABG Base Excess ABG Hemoglobin Oxyhemoglobin Sodium 130 L Potassium Chloride 97.9 L Carbon Dioxide 19 L BUN 37 H Creatinine 1.4 H Glucose 181 H POC Glucose 150 H Lactic Acid Calcium 7.8 L Phosphorus Magnesium Ferritin ALT Lactate Dehydrogenase Total Creatine Kinase C-Reactive Protein Total Protein Albumin Urine Blood Urine WBC (Auto) U Epithel Cells (Auto) Crossmatch 10/10/21 10/10/21 10/10/21 11:10 16:00 23:50 WBC RBC Hgb Hct MCH MCHC RDW Plt Count [place] # (Auto) Seg Neutrophils % Seg Neuts % (Manual) Lymphocytes % (Manual) Monocytes % (Manual) Nucleated RBC % Seg Neutrophils # Seg Neutrophils # Man Lymphocytes # (Manual) Monocytes # (Manual) PT INR D-Dimer ABG pH ABG pO2 ABG HCO3 ABG O2 Saturation ABG Base Excess ABG Hemoglobin Oxyhemoglobin Sodium Potassium Chloride Carbon Dioxide BUN Creatinine Glucose POC Glucose 136 H 151 H 129 H Lactic Acid Calcium Phosphorus Magnesium Ferritin ALT Lactate Dehydrogenase Total Creatine Kinase C-Reactive Protein Total Protein Albumin Urine Blood Urine WBC (Auto) U Epithel Cells (Auto) Crossmatch 10/10/21 10/11/21 10/11/21 Unknown 03:30 03:30 WBC 23.2 H RBC 2.39 L Hgb 6.7 L Hct 20.3 L MCH MCHC RDW 16.7 H Plt Count 701 H [place] # (Auto) Seg Neutrophils % Seg Neuts % (Manual) Lymphocytes % (Manual) Monocytes % (Manual) Nucleated RBC % Seg Neutrophils # Seg Neutrophils # Man Lymphocytes # (Manual) Monocytes # (Manual) PT INR D-Dimer ABG pH 7.505 H ABG pO2 246.1 H ABG HCO3 ABG O2 Saturation 99.4 H ABG Base Excess ABG Hemoglobin 6.0 L Oxyhemoglobin Sodium 135 L Potassium Chloride Carbon Dioxide 20 L BUN 38 H Creatinine 1.6 H Glucose 118 H POC Glucose Lactic Acid Calcium 7.9 L Phosphorus Magnesium Ferritin ALT Lactate Dehydrogenase Total Creatine Kinase C-Reactive Protein Total Protein Albumin Urine Blood Urine WBC (Auto) U Epithel Cells (Auto) Crossmatch 10/11/21 10/11/21 10/12/21 11:41 17:51 00:18 WBC RBC Hgb Hct MCH MCHC RDW Plt Count [place] # (Auto) Seg Neutrophils % Seg Neuts % (Manual) Lymphocytes % (Manual) Monocytes % (Manual) Nucleated RBC % Seg Neutrophils # Seg Neutrophils # Man Lymphocytes # (Manual) Monocytes # (Manual) PT INR D-Dimer ABG pH ABG pO2 ABG HCO3 ABG O2 Saturation ABG Base Excess ABG Hemoglobin Oxyhemoglobin Sodium Potassium Chloride Carbon Dioxide BUN Creatinine Glucose POC Glucose 128 H 138 H 174 H Lactic Acid Calcium Phosphorus Magnesium Ferritin ALT Lactate Dehydrogenase Total Creatine Kinase C-Reactive Protein Total Protein Albumin Urine Blood Urine WBC (Auto) U Epithel Cells (Auto) Crossmatch 10/12/21 10/12/21 10/12/21 05:39 06:02 06:02 WBC 19.1 H RBC 3.56 L Hgb 10.0 L D Hct MCH MCHC RDW 17.0 H Plt Count 712 H [place] # (Auto) Seg Neutrophils % Seg Neuts % (Manual) Lymphocytes % (Manual) Monocytes % (Manual) Nucleated RBC % Seg Neutrophils # Seg Neutrophils # Man Lymphocytes # (Manual) Monocytes # (Manual) PT INR D-Dimer ABG pH ABG pO2 ABG HCO3 ABG O2 Saturation ABG Base Excess ABG Hemoglobin Oxyhemoglobin Sodium Potassium Chloride Carbon Dioxide BUN 37 H Creatinine 1.5 H Glucose 172 H POC Glucose 158 H Lactic Acid Calcium 8.1 L Phosphorus Magnesium Ferritin ALT Lactate Dehydrogenase Total Creatine Kinase C-Reactive Protein Total Protein Albumin Urine Blood Urine WBC (Auto) U Epithel Cells (Auto) Crossmatch 10/12/21 10/12/21 10/12/21 06:02 06:05 17:43 WBC RBC Hgb Hct MCH MCHC RDW Plt Count [place] # (Auto) Seg Neutrophils % Seg Neuts % (Manual) Lymphocytes % (Manual) Monocytes % (Manual) Nucleated RBC % Seg Neutrophils # Seg Neutrophils # Man Lymphocytes # (Manual) Monocytes # (Manual) PT 17.1 H INR 1.24 H D-Dimer ABG pH ABG pO2 ABG HCO3 ABG O2 Saturation ABG Base Excess ABG Hemoglobin Oxyhemoglobin Sodium Potassium Chloride Carbon Dioxide BUN Creatinine Glucose POC Glucose 173 H Lactic Acid Calcium Phosphorus Magnesium Ferritin ALT Lactate Dehydrogenase Total Creatine Kinase C-Reactive Protein Total Protein Albumin Urine Blood Urine WBC (Auto) U Epithel Cells (Auto) Crossmatch See Detail 10/12/21 10/12/21 10/13/21 23:28 Unknown 04:05 WBC RBC Hgb 10.0 L Hct MCH MCHC RDW Plt Count [place] # (Auto) Seg Neutrophils % Seg Neuts % (Manual) Lymphocytes % (Manual) Monocytes % (Manual) Nucleated RBC % Seg Neutrophils # Seg Neutrophils # Man Lymphocytes # (Manual) Monocytes # (Manual) PT INR D-Dimer ABG pH ABG pO2 ABG HCO3 ABG O2 Saturation ABG Base Excess ABG Hemoglobin Oxyhemoglobin Sodium Potassium Chloride Carbon Dioxide BUN 34 H Creatinine Glucose 200 H POC Glucose 178 H Lactic Acid Calcium 7.5 L Phosphorus Magnesium 1.60 L Ferritin ALT Lactate Dehydrogenase Total Creatine Kinase C-Reactive Protein Total Protein Albumin Urine Blood Urine WBC (Auto) U Epithel Cells (Auto) Crossmatch 10/13/21 10/13/21 10/13/21 05:09 10:55 13:34 WBC 23.8 H RBC 3.14 L Hgb 9.2 L Hct 27.7 L MCH MCHC RDW 17.5 H Plt Count 572 H [place] # (Auto) Seg Neutrophils % Seg Neuts % (Manual) Lymphocytes % (Manual) Monocytes % (Manual) Nucleated RBC % Seg Neutrophils # Seg Neutrophils # Man Lymphocytes # (Manual) Monocytes # (Manual) PT INR D-Dimer ABG pH ABG pO2 ABG HCO3 ABG O2 Saturation ABG Base Excess ABG Hemoglobin Oxyhemoglobin Sodium Potassium Chloride Carbon Dioxide BUN Creatinine Glucose POC Glucose 210 H 168 H Lactic Acid Calcium Phosphorus Magnesium Ferritin ALT Lactate Dehydrogenase Total Creatine Kinase C-Reactive Protein Total Protein Albumin Urine Blood Urine WBC (Auto) U Epithel Cells (Auto) Crossmatch 10/13/21 10/13/21 10/14/21 15:35 23:10 04:05 WBC 19.4 H RBC 2.98 L Hgb 8.4 L Hct 26.3 L MCH MCHC RDW 17.1 H Plt Count 561 H [place] # (Auto) Seg Neutrophils % Seg Neuts % (Manual) Lymphocytes % (Manual) Monocytes % (Manual) Nucleated RBC % Seg Neutrophils # Seg Neutrophils # Man Lymphocytes # (Manual) Monocytes # (Manual) PT INR D-Dimer ABG pH ABG pO2 ABG HCO3 ABG O2 Saturation ABG Base Excess ABG Hemoglobin Oxyhemoglobin Sodium Potassium Chloride Carbon Dioxide BUN Creatinine Glucose POC Glucose 154 H 135 H Lactic Acid Calcium Phosphorus Magnesium Ferritin ALT Lactate Dehydrogenase Total Creatine Kinase C-Reactive Protein Total Protein Albumin Urine Blood Urine WBC (Auto) U Epithel Cells (Auto) Crossmatch 10/14/21 10/14/21 10/14/21 04:05 04:05 05:08 WBC RBC Hgb Hct MCH MCHC RDW Plt Count [place] # (Auto) Seg Neutrophils % Seg Neuts % (Manual) Lymphocytes % (Manual) Monocytes % (Manual) Nucleated RBC % Seg Neutrophils # Seg Neutrophils # Man Lymphocytes # (Manual) Monocytes # (Manual) PT 19.0 H INR 1.41 H D-Dimer ABG pH ABG pO2 ABG HCO3 ABG O2 Saturation ABG Base Excess ABG Hemoglobin Oxyhemoglobin Sodium Potassium Chloride Carbon Dioxide BUN 33 H Creatinine Glucose 310 H POC Glucose 178 H Lactic Acid Calcium 7.4 L Phosphorus Magnesium Ferritin ALT Lactate Dehydrogenase Total Creatine Kinase C-Reactive Protein Total Protein Albumin Urine Blood Urine WBC (Auto) U Epithel Cells (Auto) Crossmatch 10/14/21 10/14/21 10/14/21 09:29 10:45 11:40 WBC RBC Hgb Hct MCH MCHC RDW Plt Count [place] # (Auto) Seg Neutrophils % Seg Neuts % (Manual) Lymphocytes % (Manual) Monocytes % (Manual) Nucleated RBC % Seg Neutrophils # Seg Neutrophils # Man Lymphocytes # (Manual) Monocytes # (Manual) PT INR D-Dimer ABG pH 7.342 L ABG pO2 96.0 H ABG HCO3 26.2 H ABG O2 Saturation ABG Base Excess ABG Hemoglobin 6.1 L Oxyhemoglobin 94.9 L Sodium Potassium Chloride Carbon Dioxide BUN Creatinine Glucose POC Glucose 155 H 137 H Lactic Acid Calcium Phosphorus Magnesium Ferritin ALT Lactate Dehydrogenase Total Creatine Kinase C-Reactive Protein Total Protein Albumin Urine Blood Urine WBC (Auto) U Epithel Cells (Auto) Crossmatch 10/14/21 10/14/21 10/14/21 15:40 21:21 23:46 WBC RBC Hgb Hct MCH MCHC RDW Plt Count [place] # (Auto) Seg Neutrophils % Seg Neuts % (Manual) Lymphocytes % (Manual) Monocytes % (Manual) Nucleated RBC % Seg Neutrophils # Seg Neutrophils # Man Lymphocytes # (Manual) Monocytes # (Manual) PT INR D-Dimer ABG pH ABG pO2 ABG HCO3 ABG O2 Saturation ABG Base Excess ABG Hemoglobin Oxyhemoglobin Sodium Potassium Chloride Carbon Dioxide BUN Creatinine Glucose POC Glucose 140 H 111 H 164 H Lactic Acid Calcium Phosphorus Magnesium Ferritin ALT Lactate Dehydrogenase Total Creatine Kinase C-Reactive Protein Total Protein Albumin Urine Blood Urine WBC (Auto) U Epithel Cells (Auto) Crossmatch 10/15/21 10/15/21 10/15/21 05:06 05:40 05:40 WBC 22.7 H RBC 2.94 L Hgb 8.7 L Hct 25.8 L MCH MCHC RDW 17.2 H Plt Count 620 H [place] # (Auto) Seg Neutrophils % Seg Neuts % (Manual) Lymphocytes % (Manual) Monocytes % (Manual) Nucleated RBC % Seg Neutrophils # Seg Neutrophils # Man Lymphocytes # (Manual) Monocytes # (Manual) PT INR D-Dimer ABG pH ABG pO2 ABG HCO3 ABG O2 Saturation ABG Base Excess ABG Hemoglobin Oxyhemoglobin Sodium Potassium Chloride Carbon Dioxide BUN 30 H Creatinine Glucose 175 H POC Glucose 155 H Lactic Acid Calcium 7.4 L Phosphorus Magnesium Ferritin ALT Lactate Dehydrogenase Total Creatine Kinase C-Reactive Protein Total Protein Albumin Urine Blood Urine WBC (Auto) U Epithel Cells (Auto) Crossmatch 10/15/21 10/15/21 10/15/21 11:32 17:23 23:35 WBC RBC Hgb Hct MCH MCHC RDW Plt Count [place] # (Auto) Seg Neutrophils % Seg Neuts % (Manual) Lymphocytes % (Manual) Monocytes % (Manual) Nucleated RBC % Seg Neutrophils # Seg Neutrophils # Man Lymphocytes # (Manual) Monocytes # (Manual) PT INR D-Dimer ABG pH ABG pO2 ABG HCO3 ABG O2 Saturation ABG Base Excess ABG Hemoglobin Oxyhemoglobin Sodium Potassium Chloride Carbon Dioxide BUN Creatinine Glucose POC Glucose 157 H 136 H 143 H Lactic Acid Calcium Phosphorus Magnesium Ferritin ALT Lactate Dehydrogenase Total Creatine Kinase C-Reactive Protein Total Protein Albumin Urine Blood Urine WBC (Auto) U Epithel Cells (Auto) Crossmatch 10/16/21 10/16/21 10/16/21 04:00 04:00 05:08 WBC 18.0 H RBC 2.80 L Hgb 8.0 L Hct 24.7 L MCH MCHC RDW 17.4 H Plt Count 543 H [place] # (Auto) Seg Neutrophils % Seg Neuts % (Manual) Lymphocytes % (Manual) Monocytes % (Manual) Nucleated RBC % Seg Neutrophils # Seg Neutrophils # Man Lymphocytes # (Manual) Monocytes # (Manual) PT INR D-Dimer ABG pH ABG pO2 ABG HCO3 ABG O2 Saturation ABG Base Excess ABG Hemoglobin Oxyhemoglobin Sodium Potassium Chloride Carbon Dioxide BUN 31 H Creatinine Glucose 153 H POC Glucose 149 H Lactic Acid Calcium 8.0 L Phosphorus Magnesium Ferritin ALT Lactate Dehydrogenase Total Creatine Kinase C-Reactive Protein Total Protein 5.5 L Albumin 1.9 L Urine Blood Urine WBC (Auto) U Epithel Cells (Auto) Crossmatch 10/16/21 10/16/21 10/16/21 11:45 17:37 23:48 WBC RBC Hgb Hct MCH MCHC RDW Plt Count [place] # (Auto) Seg Neutrophils % Seg Neuts % (Manual) Lymphocytes % (Manual) Monocytes % (Manual) Nucleated RBC % Seg Neutrophils # Seg Neutrophils # Man Lymphocytes # (Manual) Monocytes # (Manual) PT INR D-Dimer ABG pH ABG pO2 ABG HCO3 ABG O2 Saturation ABG Base Excess ABG Hemoglobin Oxyhemoglobin Sodium Potassium Chloride Carbon Dioxide BUN Creatinine Glucose POC Glucose 144 H 130 H 134 H Lactic Acid Calcium Phosphorus Magnesium Ferritin ALT Lactate Dehydrogenase Total Creatine Kinase C-Reactive Protein Total Protein Albumin Urine Blood Urine WBC (Auto) U Epithel Cells (Auto) Crossmatch 10/17/21 10/17/21 10/17/21 04:00 04:00 05:37 WBC 14.0 H RBC 2.46 L Hgb 7.2 L Hct 21.7 L MCH MCHC RDW 17.4 H Plt Count 526 H [place] # (Auto) Seg Neutrophils % Seg Neuts % (Manual) Lymphocytes % (Manual) Monocytes % (Manual) Nucleated RBC % Seg Neutrophils # Seg Neutrophils # Man Lymphocytes # (Manual) Monocytes # (Manual) PT INR D-Dimer ABG pH ABG pO2 ABG HCO3 ABG O2 Saturation ABG Base Excess ABG Hemoglobin Oxyhemoglobin Sodium Potassium Chloride Carbon Dioxide BUN 29 H Creatinine Glucose 138 H POC Glucose 137 H Lactic Acid Calcium 7.5 L Phosphorus Magnesium Ferritin ALT Lactate Dehydrogenase Total Creatine Kinase C-Reactive Protein Total Protein Albumin Urine Blood Urine WBC (Auto) U Epithel Cells (Auto) Crossmatch 10/17/21 10/17/21 10/17/21 11:45 12:50 16:13 WBC RBC Hgb Hct MCH MCHC RDW Plt Count [place] # (Auto) Seg Neutrophils % Seg Neuts % (Manual) Lymphocytes % (Manual) Monocytes % (Manual) Nucleated RBC % Seg Neutrophils # Seg Neutrophils # Man Lymphocytes # (Manual) Monocytes # (Manual) PT INR D-Dimer ABG pH ABG pO2 ABG HCO3 ABG O2 Saturation ABG Base Excess ABG Hemoglobin Oxyhemoglobin Sodium Potassium Chloride Carbon Dioxide BUN Creatinine Glucose POC Glucose 145 H 128 H Lactic Acid Calcium Phosphorus Magnesium Ferritin ALT Lactate Dehydrogenase Total Creatine Kinase C-Reactive Protein Total Protein Albumin Urine Blood Urine WBC (Auto) U Epithel Cells (Auto) Crossmatch See Detail 10/17/21 10/18/21 10/18/21 23:46 04:28 04:28 WBC 16.6 H RBC 2.81 L Hgb 8.4 L Hct 24.4 L MCH MCHC RDW 16.8 H Plt Count 516 H [place] # (Auto) Seg Neutrophils % Seg Neuts % (Manual) Lymphocytes % (Manual) Monocytes % (Manual) Nucleated RBC % Seg Neutrophils # Seg Neutrophils # Man Lymphocytes # (Manual) Monocytes # (Manual) PT INR D-Dimer ABG pH ABG pO2 ABG HCO3 ABG O2 Saturation ABG Base Excess ABG Hemoglobin Oxyhemoglobin Sodium Potassium Chloride Carbon Dioxide BUN 26 H Creatinine Glucose 144 H POC Glucose 124 H Lactic Acid Calcium 7.5 L Phosphorus Magnesium Ferritin ALT 6 L Lactate Dehydrogenase Total Creatine Kinase C-Reactive Protein Total Protein 6.1 L Albumin 2.0 L Urine Blood Urine WBC (Auto) U Epithel Cells (Auto) Crossmatch 10/18/21 10/18/21 10/18/21 05:19 11:34 11:40 WBC RBC Hgb Hct MCH MCHC RDW Plt Count [place] # (Auto) Seg Neutrophils % Seg Neuts % (Manual) Lymphocytes % (Manual) Monocytes % (Manual) Nucleated RBC % Seg Neutrophils # Seg Neutrophils # Man Lymphocytes # (Manual) Monocytes # (Manual) PT INR D-Dimer ABG pH 7.466 H ABG pO2 90.6 H ABG HCO3 29.0 H ABG O2 Saturation ABG Base Excess 4.9 H ABG Hemoglobin 8.6 L Oxyhemoglobin Sodium Potassium Chloride Carbon Dioxide BUN Creatinine Glucose POC Glucose 128 H Lactic Acid Calcium Phosphorus Magnesium Ferritin ALT Lactate Dehydrogenase Total Creatine Kinase C-Reactive Protein Total Protein Albumin Urine Blood Moderate A Urine WBC (Auto) 50.0 H U Epithel Cells (Auto) Crossmatch 10/18/21 10/18/21 10/19/21 12:20 16:18 01:28 WBC RBC Hgb Hct MCH MCHC RDW Plt Count [place] # (Auto) Seg Neutrophils % Seg Neuts % (Manual) Lymphocytes % (Manual) Monocytes % (Manual) Nucleated RBC % Seg Neutrophils # Seg Neutrophils # Man Lymphocytes # (Manual) Monocytes # (Manual) PT INR D-Dimer ABG pH ABG pO2 ABG HCO3 ABG O2 Saturation ABG Base Excess ABG Hemoglobin Oxyhemoglobin Sodium Potassium Chloride Carbon Dioxide BUN Creatinine Glucose POC Glucose 151 H 139 H 126 H Lactic Acid Calcium Phosphorus Magnesium Ferritin ALT Lactate Dehydrogenase Total Creatine Kinase C-Reactive Protein Total Protein Albumin Urine Blood Urine WBC (Auto) U Epithel Cells (Auto) Crossmatch 10/19/21 10/19/21 10/19/21 04:23 04:23 04:23 WBC 16.0 H RBC 3.04 L Hgb 8.7 L Hct 26.3 L MCH MCHC RDW 16.9 H Plt Count 500 H [place] # (Auto) Seg Neutrophils % Seg Neuts % (Manual) Lymphocytes % (Manual) Monocytes % (Manual) Nucleated RBC % Seg Neutrophils # Seg Neutrophils # Man Lymphocytes # (Manual) Monocytes # (Manual) PT INR D-Dimer ABG pH ABG pO2 ABG HCO3 ABG O2 Saturation ABG Base Excess ABG Hemoglobin Oxyhemoglobin Sodium Potassium Chloride Carbon Dioxide BUN 20 H Creatinine Glucose 138 H POC Glucose Lactic Acid Calcium 7.8 L Phosphorus 1.80 L D Magnesium 1.60 L Ferritin ALT Lactate Dehydrogenase Total Creatine Kinase C-Reactive Protein Total Protein Albumin Urine Blood Urine WBC (Auto) U Epithel Cells (Auto) Crossmatch 10/19/21 10/19/21 10/19/21 14:11 18:05 21:42 WBC RBC Hgb Hct MCH MCHC RDW Plt Count [place] # (Auto) Seg Neutrophils % Seg Neuts % (Manual) Lymphocytes % (Manual) Monocytes % (Manual) Nucleated RBC % Seg Neutrophils # Seg Neutrophils # Man Lymphocytes # (Manual) Monocytes # (Manual) PT INR D-Dimer ABG pH ABG pO2 ABG HCO3 ABG O2 Saturation ABG Base Excess ABG Hemoglobin Oxyhemoglobin Sodium Potassium Chloride Carbon Dioxide BUN Creatinine Glucose POC Glucose 161 H 162 H 112 H Lactic Acid Calcium Phosphorus Magnesium Ferritin ALT Lactate Dehydrogenase Total Creatine Kinase C-Reactive Protein Total Protein Albumin Urine Blood Urine WBC (Auto) U Epithel Cells (Auto) Crossmatch 10/20/21 10/20/21 10/20/21 00:01 05:39 11:41 WBC 20.2 H RBC 2.81 L Hgb 8.5 L Hct 24.3 L MCH MCHC 35 H RDW 16.8 H Plt Count 481 H [place] # (Auto) Seg Neutrophils % Seg Neuts % (Manual) Lymphocytes % (Manual) Monocytes % (Manual) Nucleated RBC % Seg Neutrophils # Seg Neutrophils # Man Lymphocytes # (Manual) Monocytes # (Manual) PT INR D-Dimer ABG pH ABG pO2 ABG HCO3 ABG O2 Saturation ABG Base Excess ABG Hemoglobin Oxyhemoglobin Sodium Potassium Chloride Carbon Dioxide BUN Creatinine Glucose POC Glucose 152 H 117 H Lactic Acid Calcium Phosphorus Magnesium Ferritin ALT Lactate Dehydrogenase Total Creatine Kinase C-Reactive Protein Total Protein Albumin Urine Blood Urine WBC (Auto) U Epithel Cells (Auto) Crossmatch 10/20/21 10/20/21 10/20/21 11:41 11:50 17:31 WBC RBC Hgb Hct MCH MCHC RDW Plt Count [place] # (Auto) Seg Neutrophils % Seg Neuts % (Manual) Lymphocytes % (Manual) Monocytes % (Manual) Nucleated RBC % Seg Neutrophils # Seg Neutrophils # Man Lymphocytes # (Manual) Monocytes # (Manual) PT INR D-Dimer ABG pH ABG pO2 ABG HCO3 ABG O2 Saturation ABG Base Excess ABG Hemoglobin Oxyhemoglobin Sodium Potassium Chloride Carbon Dioxide BUN 20 H Creatinine Glucose 123 H POC Glucose 120 H 125 H Lactic Acid Calcium 7.7 L Phosphorus 2.00 L Magnesium Ferritin ALT Lactate Dehydrogenase Total Creatine Kinase C-Reactive Protein Total Protein Albumin Urine Blood Urine WBC (Auto) U Epithel Cells (Auto) Crossmatch 10/20/21 10/21/21 10/21/21 23:25 04:30 04:30 WBC 23.2 H RBC 2.70 L Hgb 7.9 L Hct 23.2 L MCH MCHC RDW 17.2 H Plt Count [place] # (Auto) Seg Neutrophils % Seg Neuts % (Manual) Lymphocytes % (Manual) Monocytes % (Manual) Nucleated RBC % Seg Neutrophils # Seg Neutrophils # Man Lymphocytes # (Manual) Monocytes # (Manual) PT INR D-Dimer ABG pH ABG pO2 ABG HCO3 ABG O2 Saturation ABG Base Excess ABG Hemoglobin Oxyhemoglobin Sodium Potassium Chloride Carbon Dioxide BUN 22 H Creatinine Glucose 117 H POC Glucose 119 H Lactic Acid Calcium 7.7 L Phosphorus Magnesium Ferritin ALT Lactate Dehydrogenase Total Creatine Kinase C-Reactive Protein Total Protein Albumin Urine Blood Urine WBC (Auto) U Epithel Cells (Auto) Crossmatch 10/21/21 10/21/21 10/21/21 05:26 09:05 11:27 WBC RBC Hgb Hct MCH MCHC RDW Plt Count [place] # (Auto) Seg Neutrophils % Seg Neuts % (Manual) Lymphocytes % (Manual) Monocytes % (Manual) Nucleated RBC % Seg Neutrophils # Seg Neutrophils # Man Lymphocytes # (Manual) Monocytes # (Manual) PT INR D-Dimer ABG pH 7.509 H ABG pO2 60.3 L ABG HCO3 26.2 H ABG O2 Saturation ABG Base Excess ABG Hemoglobin 6.7 L Oxyhemoglobin Sodium Potassium Chloride Carbon Dioxide BUN Creatinine Glucose POC Glucose 111 H 114 H Lactic Acid Calcium Phosphorus Magnesium Ferritin ALT Lactate Dehydrogenase Total Creatine Kinase C-Reactive Protein Total Protein Albumin Urine Blood Urine WBC (Auto) U Epithel Cells (Auto) Crossmatch Chest x-ray: image reviewed Allied health notes reviewed: RT
[2021-10-21 17:16] LABS: Hematocrit 22.3 % (30.3-42.9); Hemoglobin 7.5 gm/dl (10.1-14.3); Mean Corpuscular HGB Conc 34 % (30-34); Mean Corpuscular Volume 88 fl (79-97); Platelet Count 390 K/mm3 (140-440); Red Blood Count 2.55 M/mm3 (3.65-5.03); Red Cell Distribution Width 16.8 % (13.2-15.2)
--- NOTE | 2021-10-21 17:17 | Vascular Lab Report ---
DUPLEX DOPPLER LOWER EXTREMITY VEINS, BILATERAL INDICATION / CLINICAL INFORMATION: Morbid obesity and sepsis. TECHNIQUE: Duplex doppler imaging was performed through the veins of both lower extremities using max ous compression and other maneuvers. COMPARISON: 10/11/21. FINDINGS: RIGHT COMMON FEMORAL VEIN: Negative. RIGHT FEMORAL VEIN: Negative. RIGHT POPLITEAL VEIN: Negative. RIGHT CALF VEINS: Negative. LEFT COMMON FEMORAL VEIN: Negative. LEFT FEMORAL VEIN: Negative. LEFT POPLITEAL VEIN: Negative. LEFT CALF VEINS: Negative. ADDITIONAL FINDINGS: No abnormal mass or fluid collection is seen. IMPRESSION: No sonographic evidence for DVT in either lower extremity. Signer Name: German Valles MD Signed: 10/21/2021 5:13 PM Workstation Name: [id number]
[2021-10-21 18:02] LABS: Basophils % (Manual) 0 % (0.0-1.8); Eosinophils % (Manual) 0 % (0.0-4.3); Hypersegmented Neutrophils Rare; Platelet Estimate Consistent w Auto; RBC Morphology Normal; Total Cells Counted 100; Toxic Granulation 2+
[2021-10-21] MEDS: TOTAL PARENTERAL NUTRITION 1,999.92 ML IV SCH (20:30)
[2021-10-22] MEDS: DEXTROSE 5% IV SCH ×5 (00:59→23:53)
[2021-10-22] MEDS: SMX IV SCH ×5 (00:59→23:53)
[2021-10-22] MEDS: TMP IV SCH ×5 (00:59→23:53)
[2021-10-22] MEDS: WATER IV SCH ×5 (00:59→23:53)
[2021-10-22] MEDS: INSULIN REGULAR, HUMAN 100 UNITS/1 ML SUB-Q SCH ×4 (01:00→17:27)
[2021-10-22] MEDS: MEROPENEM/NS 1 GRAM/100 ML 1 GRAM/100 ML BAG IV SCH ×2 (04:36→11:14)
[2021-10-22 05:08] LABS: BUN/Creatinine Ratio 29; Blood Urea Nitrogen 23 mg/dL (7-17); Calcium 8.2 mg/dL (8.4-10.2); Hemolysis Index 3
[2021-10-22] MEDS: FLUCONAZOLE 400 MG 200 ML IV SCH (09:08)
[2021-10-22] MEDS: INSULIN GLARGINE 100 UNITS/ML SUB-Q SCH (09:08)
[2021-10-22] MEDS: HEPARIN 5,000 UNIT/1 ML VIAL SUB-Q SCH (09:10)
[2021-10-22] MEDS: PANTOPRAZOLE 40 MG INJ IV SCH (09:10)
[2021-10-22] MEDS: NYSTATIN POWDER 15 GM TP SCH (09:10)
[2021-10-22] MEDS: SCOPOLAMINE TRANSDERMAL PATCH 72 HR TD SCH (09:10)
[2021-10-22 09:47] LABS: Basophils % (Auto) 0.2 % (0.0-1.8); Eosinophils # (Auto) 0.1 K/mm3 (0.0-0.4); Eosinophils % (Auto) 0.4 % (0.0-4.3); Hematocrit 21.9 % (30.3-42.9); Hemoglobin 7.1 gm/dl (10.1-14.3); Lymphocytes # (Auto) 0.8 K/mm3 (1.2-5.4); Lymphocytes % (Auto) 4.7 % (13.4-35.0); Mean Corpuscular HGB Conc 32 % (30-34); Mean Corpuscular Volume 87 fl (79-97); Monocytes # (Auto) 1.8 K/mm3 (0.0-0.8); Monocytes % (Auto) 10.2 % (0.0-7.3); Platelet Count 385 K/mm3 (140-440); Red Blood Count 2.51 M/mm3 (3.65-5.03); Red Cell Distribution Width 17.2 % (13.2-15.2)
[2021-10-22 09:56] LABS: BUN/Creatinine Ratio 29; Blood Urea Nitrogen 23 mg/dL (7-17); Calcium 8.1 mg/dL (8.4-10.2); Hemolysis Index 2
--- NOTE | 2021-10-22 10:28 | XRay Report ---
CHEST 1 VIEW 10/22/2021 8:46 AM INDICATION / CLINICAL INFORMATION: shortness of breath. COMPARISON: 10/20/2021 FINDINGS: SUPPORT DEVICES: Stable, satisfactory device positioning. HEART / MEDIASTINUM: Cardiomegaly LUNGS / PLEURA: Mild increased pulmonary vascularity No pneumothorax. ADDITIONAL FINDINGS: No significant additional findings. IMPRESSION: 1. No significant change Signer Name: Elmer Fritz MD Signed: 10/22/2021 10:22 AM Workstation Name: [id number]
--- NOTE | 2021-10-22 10:29 | Progress Note ---
Assessment and Plan Postop day #8 status post colostomy creation with closure of abdomen. Patient is afebrile and resolved tachycardia. Leukocytosis improving. Awaiting full return of bowel function. Sputum culture positive for gram-negative rods. Patient is on appropriate antibiotics for sensitivity. Continue per ID. Respiratory insufficiency - continue BIPAP per pulmonary. Spoke with Dr. Bansal, if patient does not show significant improvement may send for CT scan of the chest at the same time scan abdomen and pelvis. Once patient is better from a respiratory standpoint would like to resume physical therapy out of bed to chair. Once making better output from colostomy we will do NG tube clamping trials. Creatinine has normalized she is making good urine output. Continue supportive care. Postop day #11 status post colorectal anastomosis takedown, with abdominal washout and ABThera wound VAC. Postop day #19 status post laparoscopic converted to open left hemicolectomy with appendectomy for perforated appendicitis with fistulization to sigmoid colon. Subjective Date of service: 10/22/21 Narrative: No acute events overnight. Patient was tolerating BiPAP better after Precedex was started. Patient's tachycardia resolved and she is less agitated this morning. Patient says that she is frustrated and wants to leave the hospital. She denies any pain and says that she feels better compared to yesterday. Lower extremity ultrasound was negative for DVT. Objective Vital Signs - 12hr 10/21/21 10/21/21 10/21/21 22:30 23:00 23:30 Temperature Pulse Rate 96 H 94 H 92 H Pulse Rate [ From Monitor] Respiratory 28 H 28 H 29 H Rate Blood Pressure 106/67 106/66 115/80 O2 Sat by Pulse 100 100 100 Oximetry 10/22/21 10/22/21 10/22/21 00:00 00:30 01:00 Temperature 99.2 F Pulse Rate 92 H 90 86 Pulse Rate [ 103 H From Monitor] Respiratory 30 H 26 H 28 H Rate Blood Pressure 109/67 109/71 114/72 O2 Sat by Pulse 100 100 100 Oximetry 10/22/21 10/22/21 10/22/21 01:30 02:00 02:30 Temperature Pulse Rate 86 86 99 H Pulse Rate [ From Monitor] Respiratory 29 H 33 H 23 Rate Blood Pressure 114/76 107/71 127/86 O2 Sat by Pulse 100 100 99 Oximetry 10/22/21 10/22/21 10/22/21 03:00 03:30 04:00 Temperature Pulse Rate 87 87 97 H Pulse Rate [ 103 H From Monitor] Respiratory 30 H 26 H 30 H Rate Blood Pressure 108/69 116/79 129/93 O2 Sat by Pulse 100 100 100 Oximetry 10/22/21 10/22/21 10/22/21 04:30 05:00 05:30 Temperature Pulse Rate 99 H 87 78 Pulse Rate [ From Monitor] Respiratory 26 H 24 26 H Rate Blood Pressure 124/91 129/97 125/85 O2 Sat by Pulse 100 100 100 Oximetry 10/22/21 10/22/21 10/22/21 06:00 06:30 07:00 Temperature Pulse Rate 85 79 81 Pulse Rate [ From Monitor] Respiratory 28 H 24 30 H Rate Blood Pressure 117/80 124/88 123/81 O2 Sat by Pulse 100 100 100 Oximetry 10/22/21 10/22/21 10/22/21 07:15 07:30 08:00 Temperature 99.7 F H Pulse Rate 78 86 Pulse Rate [ 81 From Monitor] Respiratory 28 H 17 Rate Blood Pressure 134/88 128/95 O2 Sat by Pulse 100 100 Oximetry 10/22/21 10/22/21 10/22/21 08:30 09:00 09:43 Temperature Pulse Rate 97 H 85 Pulse Rate [ From Monitor] Respiratory 31 H 32 H Rate Blood Pressure 128/92 115/76 O2 Sat by Pulse 99 100 100 Oximetry - General physical appearance well nourished, no distress, no pain - ENT no hearing loss - Respiratory normal expansion, other (Comfortable on BiPAP) - Abdomen soft, other (Midline incision intact, mild serous drainage from midline. Approp riately tender to palpation. YURIDIA drain serous and clear. Left-sided drain unchanged. Ostomy is pink with small amount of green stool. No significant air in bag.) - Labs 10/22/21 09:02 10/22/21 Unknown Diabetes panel 10/22/21 10/22/21 Range/Units 09:02 Unknown Sodium 134 L 135 L (137-145) mmol/L Potassium 4.2 4.2 (3.6-5.0) mmol/L Chloride 100.1 101.6 (98-107) mmol/L Carbon Dioxide 24 25 (22-30) mmol/L BUN 23 H 23 H (7-17) mg/dL Creatinine 0.8 0.8 (0.6-1.2) mg/dL Glucose 117 H 112 H (65-100) mg/dL Calcium 8.1 L 8.2 L (8.4-10.2) mg/dL Calcium panel 10/22/21 10/22/21 10/22/21 Range/Units 09:02 Unknown Unknown Calcium 8.1 L 8.2 L (8.4-10.2) mg/dL Phosphorus 3.30 D (2.5-4.5) mg/dL Pituitary panel 10/22/21 10/22/21 Range/Units 09:02 Unknown Sodium 134 L 135 L (137-145) mmol/L Potassium 4.2 4.2 (3.6-5.0) mmol/L Chloride 100.1 101.6 (98-107) mmol/L Carbon Dioxide 24 25 (22-30) mmol/L BUN 23 H 23 H (7-17) mg/dL Creatinine 0.8 0.8 (0.6-1.2) mg/dL Glucose 117 H 112 H (65-100) mg/dL Calcium 8.1 L 8.2 L (8.4-10.2) mg/dL Adrenal panel 10/22/21 10/22/21 Range/Units 09:02 Unknown Sodium 134 L 135 L (137-145) mmol/L Potassium 4.2 4.2 (3.6-5.0) mmol/L Chloride 100.1 101.6 (98-107) mmol/L Carbon Dioxide 24 25 (22-30) mmol/L BUN 23 H 23 H (7-17) mg/dL Creatinine 0.8 0.8 (0.6-1.2) mg/dL Glucose 117 H 112 H (65-100) mg/dL Calcium 8.1 L 8.2 L (8.4-10.2) mg/dL
--- NOTE | 2021-10-22 12:28 | Progress Note ---
Assessment and Plan Cultures: 09/24/2021 blood culture: No growth 09/30/2021 YURIDIA drain wound culture: VRE - Enterococcus faecium 10/08/2021 blood culture: No growth 10/11/2021 intra-abdominal surgical culture: Jo Ann albicans, MSSA, Stenotrophomonas 10/12/2021 tracheal culture: No growth 10/18/2021 blood culture: no growth 10/18/2021 urine culture: no growth 10/18/2021 sputum culture: Stenotrophomonas A/P: 31-year-old female past medical history obesity, nephrolithiasis admitted with: #Sepsis: Secondary to intra-abdominal infection. 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 pna, fluid overload more likely. Extubated 08/20/2021. Cultures growing Stenotrophomonas. #Leukocytosis, reactive thrombocytosis #BRYANNA: resolved. #Obesity Recs: -meropenem discontinued -continue with fluconazole, Bactrim, plan to stop on Monday -monitor renal function daily while on IV Bactrim Mónica Swan MD, FACP, [facility] ([facility] O: [phone] F: [phone] C: [phone] Subjective Date of service: 10/22/21 Principal diagnosis: BRYANNA Interval history: Feeling better. Off BiPAP today. Low-grade temperature with T-max of 100.1 F. Objective - Exam Narrative Exam: Physical Exam: Constitutional: Awake, alert, mild distress Head, Ears, Nose: Normocephalic, atraumatic. External ears, nose normal Eyes: Conjunctivae/corneas clear. No icterus. No ptosis. Neck: supple Cardiovascular: S1, S2 + Respiratory: AE fair bilaterally and equal GI: Soft, dressing, drain present, colostomy present Musculoskeletal: Obese, edema present Skin: No rash or abscess Hem/Lymphatic: No palpable cervical or supraclavicular nodes. No lymphangitis Psych: calm Neurological: Awake, alert, answering questions - Constitutional Vitals: Vital Signs Temp Pulse Resp BP Pulse Ox 99.7 F H 84 32 H 119/81 96 10/22/21 11:25 10/22/21 11:41 10/22/21 11:41 10/22/21 11:00 10/22/21 11:41 Temperature -Last 24 Hours Temperature 99.7 F Temperature 99.7 F Temperature 99.2 F Temperature 100.1 F Temperature 99.1 F - Labs CBC & Chem 7: 10/22/21 09:02 10/22/21 Unknown Labs: Abnormal lab results 10/21/21 10/21/21 10/22/21 Range/Units 16:45 23:13 05:25 WBC 21.7 H (4.5-11.0) K/mm3 RBC 2.55 L (3.65-5.03) M/mm3 Hgb 7.5 L (10.1-14.3) gm/dl Hct 22.3 L (30.3-42.9) % RDW 16.8 H (13.2-15.2) % Lymph % (Auto) (13.4-35.0) % [place] % (Auto) (0.0-7.3) % Lymph # (Auto) (1.2-5.4) K/mm3 [place] # (Auto) (0.0-0.8) K/mm3 Seg Neutrophils % (40.0-70.0) % Seg Neuts % (Manual) 86.0 H (40.0-70.0) % Lymphocytes % (Manual) 7.0 L (13.4-35.0) % Seg Neutrophils # (1.8-7.7) K/mm3 Seg Neutrophils # Man 18.7 H (1.8-7.7) K/mm3 Monocytes # (Manual) 1.5 H (0.0-0.8) K/mm3 Sodium (137-145) mmol/L BUN (7-17) mg/dL Glucose (65-100) mg/dL POC Glucose 117 H 125 H (70-105) mg/dL Calcium (8.4-10.2) mg/dL 10/22/21 10/22/21 10/22/21 Range/Units 09:02 09:02 Unknown WBC 17.2 H (4.5-11.0) K/mm3 RBC 2.51 L (3.65-5.03) M/mm3 Hgb 7.1 L (10.1-14.3) gm/dl Hct 21.9 L (30.3-42.9) % RDW 17.2 H (13.2-15.2) % Lymph % (Auto) 4.7 L (13.4-35.0) % [place] % (Auto) 10.2 H (0.0-7.3) % Lymph # (Auto) 0.8 L (1.2-5.4) K/mm3 [place] # (Auto) 1.8 H (0.0-0.8) K/mm3 Seg Neutrophils % 84.5 H (40.0-70.0) % Seg Neuts % (Manual) (40.0-70.0) % Lymphocytes % (Manual) (13.4-35.0) % Seg Neutrophils # 14.5 H (1.8-7.7) K/mm3 Seg Neutrophils # Man (1.8-7.7) K/mm3 Monocytes # (Manual) (0.0-0.8) K/mm3 Sodium 134 L 135 L (137-145) mmol/L BUN 23 H 23 H (7-17) mg/dL Glucose 117 H 112 H (65-100) mg/dL POC Glucose (70-105) mg/dL Calcium 8.1 L 8.2 L (8.4-10.2) mg/dL - Imaging and cardiology Chest x-ray: report reviewed, image reviewed (pulmonary vascular congestion)
--- NOTE | 2021-10-22 13:09 | Progress Note ---
<CHAD EDEN - Last Filed: 10/22/21 19:10> Assessment and Plan Assessment and plan: This is a 31-year-old female with past medical history of obesity and nephrolithiasis initially admitted to the floor for acute diverticulititis which was complicated by sepsis and acute kidney injury. 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 On 10/08/21 patient developed acute hypoxic respiratory failure requiring ventilatory support, s/p extubation now stable on 2L NC. ICU Course to Date: 10/09: Intubated and sedated, RASS -1 to -2. Recent CXR noted with worsen bilateral opacities with persistent leukocytosis, elevated lactic, and now on 2 pressors. Patient remains afebrile, and already on IV Abx per ID. Will swab patient for COVID. Given recent surgery orders placed for CTA chest, CT Abd/plevis. And also BLE dopplers due to elevated D-Dimer. Renal function is improving, additional IVF to flush out kidney post contrast, Nephrology is also following. Continue TPN and NGT to LIS. 10/10: COVID PCR negative. CTA chest and Abd/plevis noted. No evidence of PE. Patient received X1 dose of 20mg IV lasix per Nephro for pulmonary edema, this am CXR with some improvement, renal function is also improving. Wean vent setting as tolerated per CCM. Plan for possible CT guided drainage placement in IR tomorrow. Continue TPN and NGT to LIS. 10/11: Patient with anemia, 1 unit PRBC, scheduled for CT-guided drain image of air pocket. Will place on CPAP on return. Slightly worsening renal function but nephrology is on the case. 10/12: Taken to OR today for diverting ileostomy, given 3 units PRBC yesterday and appropriate response. Surgical culture grew yeast and ID added added fluconazole. 10/13: Hypomagnesemia repleted, renal function improving. Patient remains sedated with fentanyl and propofol. Updated sister and father at bedside. Ureteral stents removed at bedside. Plan to to take patient to the OR tomorrow for second look, abdominal washout, colostomy creation on hold for abdominal closure by surgery. We will hold p.m. dose of heparin. 10/14: Plan to take patient back to OR today, prophylactic anticougulation on hold. 2 units prbc on hold for surgery. Plan to close abd and colostomy creation. Vent weaning on hold till abd closure 10/15: Renal function remains stable, leukocytosis increased, remains sedated on propofol and fentanyl and on mechanical ventilation. Plan is to hold SBT until the weekend. Repeat renal ultrasound pending per urology. 10/16: no acute events overnight. remains on fent and propofol. plan to sbt on monday. 10/17: noted drop in hgb from 8 to 7.2 and will given one unit prbc. remains on fent/propofol. CARMEN overnight. Will retract OETT per rad reading. 10/18: Febrile this am with worsen leukocytosis. Continue IV Abx per ID, orders placed for cultures. Patient tolerating PST, d/w CCM plan for possible extubation today. Abdominal insicion and colostomy noted, no signs of any complications noted. Continue TPN and NGT to LIS per General surgery. 10/19: S/p extubation, now stable on 2L NC. Fevers improved, cultures pending continue IV Abx per ID. Patient is still with absent bowel sounds, continue TPN and NGT to LIS per General surg. Okay to remove brantley per Urology. Electrolytes repleted, repeat labs in the am. Patient is stable for transfer to [facility]. 10/20: Continue current management. Patient remained stable on 2 L of oxygen but appears anxious with increased tachypnea. We will add incentive spirometer. Will check and monitor intermittent x-rays. Continue antibiotics per infectious disease. Renal function has normalized. We will good urine output. We will check blood work in a.m. Awaiting return of bowel function 10/21: Patient on BiPAP this am, xray from yesterday concerning for Aspiration pneumonia vs atalalectsis, patient still with increased WOB although improved compared to yesterday. Leukocytosis a bit worse, will continue to monitor and discuss with ID if more broad spectrum therapy should be considered. She is currently on Bactrim for positive tracheal aspirate with Stenotrophomonas. Continue aspiration precautions. may need repeat xray but will discuss with pulmonary. Continue Strict NPO and Aspiration precautions. Continues on TPN. Prognosis guarded. ?Third spacing 10/22: Back in the ICU due to hypoxia, increased WOB, and tachycardia requiring continuous Bipap. Patient is now on precedex gtt for increased anxiety. Repeat BLE doppler with no evidence of DVT . D/W CCM paln for CTA chest and CT abd/Pelvis today. Mild improvement in leukocytosis today, patient is afebrile, continue IV Abx per ID. Remains on TPN and NGT to LIS. 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 post appendectomy #VRE infection #Open left hemicolectomy and partial omentectomy #Peritonitis #Diverticulitis with abscess #Possible Bilateral Pneumonia #Septic Shock-resolved -CT abd/pelvis showed diverticulitis with abscess -General surgery following, assistance appreciated -s/p diagnositic laparatomy and drain placement 09/26/2021 -Returned to the OR on 09/30/2021 for left hemicolectomy, appendectomy, and partial omentectomy -10/09 CT abdomen/pelvis showed a new collection of air within the left midabdomen -10/11 CT guided drain placement in IR- Colonic Anastamosis noted -10/12 status post colorectal anastomosis takedown, with abdominal washout and ABThera wound VAC placement -10/13 status post colostomy creation with closure of abdomen -Wound culture +VRE -10/08 Repeat Blood culture negative -10/18 repeat cultures pending -Continue IV Abx per ID recommendations -Continue TPN/PPN per general surgery -NGT to LIS -Trend CBC #Acute Kidney Injury 2/2 Vasomotor Nephropathy vs contrast induced-improved -Nephrology consulted, assistance appreciated -Renal function normalized -Strict intake and output -Avoid nephrotoxic medications; Renally dose medications -Monitor and replace electrolytes as needed #Acute blood loss anemia-Resolved #Gross Hematuria-resolved -2/2 to surgical procedures-- c/f ureteral injury -s/p 7 units of pRBCs since admission -Hematuria resolved, H&H stable -Urology consulted, appreciated recommendation -10/12 Intra-Op cystoscopy completed and bilateral ureteral stents placed- removed on 10/13 By Urology -Repeat renal US noted -Okay to remove Brantley per Urology -Continue to monitor for s/s of any active bleeding, trend CBC -transfuse if hemoglobin less than 7 or patient becomes symptomatic #Moderate protein caloric malnutrition -Albumin 1.6 -Continue TPN/PPN per general surgery -Consulting nutrition; appreciate recs #Elevated D-Dimer -BLE doppler with no evidence of any DVT -Continue AC- Heparin subQ #Hyperglycemia -most likely due to TPN/PPN -Continue SSI Q6hrs -Avoid hypoglycemia #Anxiety -On Precedex gtt -Titrate for RASS goal 0 to -1 -Maintenance of sleep-wake cycle #GI/DVT Prophylaxis -Continue PPI- Pepcid -Continue AC- Heparin subQ -SCDs to bilateral lower extremities while in bed The high probability of a clinically significant, sudden or life threatening deterioration of the [multiple] system(s) required my full and direct attention, intervention and personal management. The aggregate critical care time was [60] minutes. This time is in addition to time spent performing reported procedures but includes the following: [x] Data Review and interpretation [x] Patient assessment and monitoring of vital signs [x] Documentation [x] Medication orders and management Disposition Plan: ICU Total Time Spent with Patient (Minutes): 60 History Interval history: Patient was seen and examined at the bedside. Awake and stable on BIPAP this am. Patient was transferred back to the ICU yesterday due to hypoxia, increased RR and tachycardia, requiring continuous Bipap. Patient is now on a Precedex gtt. Patient reported that she is a lot better now that she is on some anxiety medications. Patient remains on TPN and NGT to [facility] Hospitalist Physical - Constitutional Vitals: Temp Pulse Resp BP Pulse Ox 99.7 F H 83 26 H 120/81 96 10/22/21 11:25 10/22/21 12:30 10/22/21 12:30 10/22/21 12:30 10/22/21 12:30 General appearance: Present: no acute distress, obese Results - Labs CBC & Chem 7: 10/22/21 09:02 10/22/21 Unknown Labs: Laboratory Last Values WBC 17.2 K/mm3 (4.5-11.0) H 10/22/21 09:02 RBC 2.51 M/mm3 (3.65-5.03) L 10/22/21 09:02 Hgb 7.1 gm/dl (10.1-14.3) L 10/22/21 09:02 Hct 21.9 % (30.3-42.9) L 10/22/21 09:02 MCV 87 fl (79-97) 10/22/21 09:02 MCH 28 pg (28-32) 10/22/21 09:02 MCHC 32 % (30-34) 10/22/21 09:02 RDW 17.2 % (13.2-15.2) H 10/22/21 09:02 Plt Count 385 K/mm3 (140-440) 10/22/21 09:02 Lymph % (Auto) 4.7 % (13.4-35.0) L 10/22/21 09:02 [place] % (Auto) 10.2 % (0.0-7.3) H 10/22/21 09:02 Eos % (Auto) 0.4 % (0.0-4.3) 10/22/21 09:02 Baso % (Auto) 0.2 % (0.0-1.8) 10/22/21 09:02 Lymph # (Auto) 0.8 K/mm3 (1.2-5.4) L 10/22/21 09:02 [place] # (Auto) 1.8 K/mm3 (0.0-0.8) H 10/22/21 09:02 Eos # (Auto) 0.1 K/mm3 (0.0-0.4) 10/22/21 09:02 Baso # (Auto) 0.0 K/mm3 (0.0-0.1) 10/22/21 09:02 Add Manual Diff Complete 10/21/21 16:45 Total Counted 100 10/21/21 16:45 Seg Neutrophils % 84.5 % (40.0-70.0) H 10/22/21 09:02 Seg Neuts % (Manual) 86.0 % (40.0-70.0) H 10/21/21 16:45 Band Neutrophils % 0 % 10/21/21 16:45 Lymphocytes % (Manual) 7.0 % (13.4-35.0) L 10/21/21 16:45 Reactive Lymphs % (Man) 0 % 10/21/21 16:45 Monocytes % (Manual) 7.0 % (0.0-7.3) 10/21/21 16:45 Eosinophils % (Manual) 0 % (0.0-4.3) 10/21/21 16:45 Basophils % (Manual) 0 % (0.0-1.8) 10/21/21 16:45 Metamyelocytes % 0 % 10/21/21 16:45 Myelocytes % 0 % 10/21/21 16:45 Promyelocytes % 0 % 10/21/21 16:45 Blast Cells % 0 % 10/21/21 16:45 Nucleated RBC % Not Reportable 10/21/21 16:45 Seg Neutrophils # 14.5 K/mm3 (1.8-7.7) H 10/22/21 09:02 Seg Neutrophils # Man 18.7 K/mm3 (1.8-7.7) H 10/21/21 16:45 Band Neutrophils # 0.0 K/mm3 10/21/21 16:45 Lymphocytes # (Manual) 1.5 K/mm3 (1.2-5.4) 10/21/21 16:45 Abs React Lymphs (Man) 0.0 K/mm3 10/21/21 16:45 Monocytes # (Manual) 1.5 K/mm3 (0.0-0.8) H 10/21/21 16:45 Eosinophils # (Manual) 0.0 K/mm3 (0.0-0.4) 10/21/21 16:45 Basophils # (Manual) 0.0 K/mm3 (0.0-0.1) 10/21/21 16:45 Metamyelocytes # 0.0 K/mm3 10/21/21 16:45 Myelocytes # 0.0 K/mm3 10/21/21 16:45 Promyelocytes # 0.0 K/mm3 10/21/21 16:45 Blast Cells # 0.0 K/mm3 10/21/21 16:45 Pathologist Review 09/24/21 14:58 WBC Morphology Not Reportable 10/21/21 16:45 Hypersegmented Neuts Rare 10/21/21 16:45 Hyposegmented Neuts Not Reportable 10/21/21 16:45 Hypogranular Neuts Not Reportable 10/21/21 16:45 Smudge Cells Not Reportable 10/21/21 16:45 Toxic Granulation 2+ 10/21/21 16:45 Toxic Vacuolation Not Reportable 10/21/21 16:45 Dohle Bodies Not Reportable 10/21/21 16:45 Pelger-Huet Anomaly Not Reportable 10/21/21 16:45 Marlene Rods Not Reportable 10/21/21 16:45 Platelet Estimate Consistent w auto 10/21/21 16:45 Clumped Platelets Not Reportable 10/21/21 16:45 Plt Clumps, EDTA Not Reportable 10/21/21 16:45 Large Platelets Not Reportable 10/21/21 16:45 Giant Platelets Not Reportable 10/21/21 16:45 Platelet Satelliting Not Reportable 10/21/21 16:45 Plt Morphology Comment Not Reportable 10/21/21 16:45 RBC Morphology Normal 10/21/21 16:45 Dimorphic RBCs Not Reportable 10/21/21 16:45 Polychromasia Not Reportable 10/21/21 16:45 Hypochromasia Not Reportable 10/21/21 16:45 Poikilocytosis Not Reportable 10/21/21 16:45 Anisocytosis Not Reportable 10/21/21 16:45 Microcytosis Not Reportable 10/21/21 16:45 Macrocytosis Not Reportable 10/21/21 16:45 Spherocytes Not Reportable 10/21/21 16:45 Pappenheimer Bodies Not Reportable 10/21/21 16:45 Sickle Cells Not Reportable 10/21/21 16:45 Target Cells Not Reportable 10/21/21 16:45 Tear Drop Cells Not Reportable 10/21/21 16:45 Ovalocytes Not Reportable 10/21/21 16:45 Helmet Cells Not Reportable 10/21/21 16:45 [place] Bodies Not Reportable 10/21/21 16:45 [place] Rings Not Reportable 10/21/21 16:45 [place] Cells Not Reportable 10/21/21 16:45 Bite Cells Not Reportable 10/21/21 16:45 Crenated Cell Not Reportable 10/21/21 16:45 Elliptocytes Not Reportable 10/21/21 16:45 Acanthocytes (Spur) Not Reportable 10/21/21 16:45 Rouleaux Not Reportable 10/21/21 16:45 Hemoglobin C Crystals Not Reportable 10/21/21 16:45 Schistocytes Not Reportable 10/21/21 16:45 Malaria parasites Not Reportable 10/21/21 16:45 Flaco Bodies Not Reportable 10/21/21 16:45 Hem Pathologist Commnt No 10/21/21 16:45 PT 19.0 Sec. (12.2-14.9) H 10/14/21 04:05 INR 1.41 (0.87-1.13) H 10/14/21 04:05 APTT 33.9 Sec. (24.2-36.6) 10/14/21 04:05 D-Dimer > 75987 ng/mlDDU (0-234) H 10/09/21 08:45 ABG pH 7.509 pH Units (7.350-7.450) H 10/21/21 09:05 ABG pCO2 33.7 mm Hg 10/21/21 09:05 ABG pO2 60.3 mm Hg (80.0-90.0) L 10/21/21 09:05 ABG HCO3 26.2 mmol/L (20.0-26.0) H 10/21/21 09:05 ABG O2 Saturation 97.5 % (95.0-99.0) 10/21/21 09:05 ABG O2 Content 9.0 (0.0-44) 10/21/21 09:05 ABG Base Excess 3.0 mmol/L (-2.0-3.0) 10/21/21 09:05 ABG Hemoglobin 6.7 gm/dl (12.0-16.0) L 10/21/21 09:05 ABG Carboxyhemoglobin 1.8 % (0.0-5.0) 10/21/21 09:05 ABG Methemoglobin 0.4 % (0.0-1.5) 10/21/21 09:05 Oxyhemoglobin 95.3 % (95.0-99.0) 10/21/21 09:05 FiO2 28 % 10/21/21 09:05 Sodium 135 mmol/L (137-145) L 10/22/21 Unknown Potassium 4.2 mmol/L (3.6-5.0) 10/22/21 Unknown Chloride 101.6 mmol/L (98-107) 10/22/21 Unknown Carbon Dioxide 25 mmol/L (22-30) 10/22/21 Unknown Anion Gap 13 mmol/L 10/22/21 Unknown BUN 23 mg/dL (7-17) H 10/22/21 Unknown Creatinine 0.8 mg/dL (0.6-1.2) 10/22/21 Unknown Estimated GFR > 60 ml/min 10/22/21 Unknown BUN/Creatinine Ratio 29 % 10/22/21 Unknown Glucose 112 mg/dL (65-100) H 10/22/21 Unknown POC Glucose 125 mg/dL (70-105) H 10/22/21 05:25 Lactic Acid 1.80 mmol/L (0.7-2.0) 10/10/21 04:10 Calcium 8.2 mg/dL (8.4-10.2) L 10/22/21 Unknown Phosphorus 3.30 mg/dL (2.5-4.5) D 10/22/21 Unknown Magnesium 1.90 mg/dL (1.7-2.3) 10/22/21 Unknown Ferritin 751.9 ng/mL (10.0-200.0) H 10/09/21 05:31 Total Bilirubin 0.20 mg/dL (0.1-1.2) 10/18/21 04:28 AST 19 units/L (5-40) 10/18/21 04:28 ALT 6 units/L (7-56) L 10/18/21 04:28 Alkaline Phosphatase 53 units/L (35-129) 10/18/21 04:28 Lactate Dehydrogenase 472 units/L (91-180) H 10/09/21 05:31 Total Creatine Kinase 45 units/L (30-135) 10/13/21 04:05 C-Reactive Protein 15.90 mg/dL (0.00-1.30) H 10/09/21 05:31 Total Protein 6.1 g/dL (6.3-8.2) L 10/18/21 04:28 Albumin 2.0 g/dL (3.9-5) L 10/18/21 04:28 Albumin/Globulin Ratio 0.5 % 10/18/21 04:28 Triglycerides 80 mg/dL (2-149) 10/14/21 04:05 Procalcitonin 12.98 ng/mL (<0.15) 10/09/21 05:31 Urine Color Yellow (Yellow) 10/18/21 11:40 Urine Turbidity Clear (Clear) 10/18/21 11:40 Urine pH 6.0 (5.0-7.0) 10/18/21 11:40 Ur Specific [place] 1.015 (1.003-1.030) 10/18/21 11:40 Urine Protein 30 mg/dl mg/dL (Negative) 10/18/21 11:40 Urine Glucose (UA) Trace mg/dL (Negative) 10/18/21 11:40 Urine Ketones Negative mg/dL (Negative) 10/18/21 11:40 Urine Blood Moderate (Negative) A 10/18/21 11:40 Urine Nitrite Negative (Negative) 10/18/21 11:40 Ur Reducing Substances Not Reportable 09/24/21 14:49 Urine Bilirubin Negative (Negative) 10/18/21 11:40 Urine Ictotest Not Reportable 09/24/21 14:49 Urine Urobilinogen 0.0 mg/dL (<2.0) 10/18/21 11:40 Ur Leukocyte Esterase Negative (Negative) 10/18/21 11:40 Urine WBC (Auto) 50.0 /HPF (0.0-6.0) H 10/18/21 11:40 Urine RBC (Auto) > 182.0 /HPF (0.0-6.0) 10/18/21 11:40 U Epithel Cells (Auto) 2.0 /HPF (0-13.0) 10/18/21 11:40 Urine Bacteria (Auto) 2+ /HPF (Negative) 10/18/21 11:40 Urine WBC Clumps 1+ /HPF 10/18/21 11:40 Hyaline Casts Few /LPF 10/18/21 11:40 Granular Casts Few /LPF 10/18/21 11:40 Urine Mucus 3+ /HPF 10/18/21 11:40 Urine HCG, Qual Negative (Negative) 09/24/21 14:49 Coronavirus (PCR) Negative (Negative) 10/09/21 10:15 Blood Type A POSITIVE 10/17/21 12:50 Antibody Screen Negative 10/17/21 12:50 Crossmatch See Detail 10/17/21 12:50 Microbiology: Microbiology 10/18/21 08:17 Peripheral/Venous Blood Culture - Preliminary NO GROWTH AFTER 4 DAYS 10/18/21 08:17 Peripheral/Venous Blood Culture - Preliminary NO GROWTH AFTER 4 DAYS Brantley/IV: Voiding Method External Female Catheter Active Medications - Current Medications Current Medications: Generic Name Dose Route Start Last Admin Trade Name Freq PRN Reason Stop Dose Admin Acetaminophen 650 mg 10/08/21 21:38 Acetaminophen 325 Mg Tab PO Q6H PRN Pain, Mild (1-3) Albuterol 2.5 mg 09/24/21 18:07 Albuterol 2.5 Mg/3 Ml Nebu IH Q4HRT PRN Shortness Of Breath Dextrose 0 ml 10/03/21 12:37 Dextrose 10% *Hypoglycemia IV PRN PRN Hypoglycemia Diphenhydramine HCl 25 mg 10/04/21 15:14 10/20/21 03:11 Diphenhydramine 50 Mg/Ml Vial IV 25 mg Q6H PRN Administration Itching Heparin Sodium (Porcine) 5,000 unit 10/16/21 10:00 10/22/21 09:10 Heparin 5,000 Unit/1 Ml Vial SUB-Q 5,000 unit Q12HR JAZ Administration Hydromorphone HCl 0.5 mg 10/18/21 15:39 10/20/21 23:10 Hydromorphone 1 Mg/1 Ml Inj IV 0.5 mg Q3H PRN Administration Pain, Moderate (4-6) Hydrophilic Ointment 1 applic 10/08/21 21:00 10/19/21 21:59 Lip Therapy Vaseline TP 1 applic Q2HR PRN Administration Dry Lips Fluconazole 200 mls @ 100 mls/hr 10/13/21 10:00 10/22/21 11:08 Diflucan IV Infused Q24HR JAZ Infusion Protocol Trimethoprim/Sulfamethoxazole 525 mls @ 167 mls/hr 10/18/21 12:00 10/22/21 12:37 400 mg/ Dextrose IV 167 mls/hr Q6HR JAZ Administration Protocol Amino Acids/Electrolytes/Dextrose 1,999.92 mls @ 83.33 mls/hr 10/21/21 20:00 10/21/21 20:30 Tpn Adult IV 83.33 mls/hr DAILY@1999 [facility] Administration Protocol Dexmedetomidine HCl 400 mcg/ 104 mls @ 5.689 mls/hr 10/21/21 17:00 10/22/21 07:00 Sodium Chloride IV 0.3 mcg/kg/hr TITRATE JAZ 8.533 mls/hr Titration Protocol 0.2 MCG/KG/HR Insulin Glargine 5 units 10/13/21 10:00 10/22/21 09:08 Insulin Glargine 100 Units/Ml SUB-Q 5 units QDAY [facility] Administration Insulin Human Regular 0 units 10/10/21 00:00 10/22/21 11:14 Insulin Regular, Human 100 Units/1 Ml SUB-Q Not Given Q6HR [facility] Protocol Labetalol HCl 10 mg 10/01/21 08:31 10/20/21 09:56 Labetalol 20 Mg/4 Ml Inj IV 10 mg Q6H PRN Administration Hypertension Lorazepam 1 mg 10/21/21 12:48 10/21/21 15:11 Lorazepam 2 Mg/Ml Vial IV 1 mg Q4H PRN Administration Anxiety Multi-Ingred Cream/Lotion/Oil/Oint 1 applic 10/08/21 21:00 Mineral Oil/Petrolatum, White Ophth Oint 3.5 Gm OU Q4HR PRN Dry Eye(s) Naloxone HCl 0.1 mg 10/03/21 14:00 Naloxone 0.4 Mg/1 Ml Inj IV Q2MIN PRN Res Rate </= 8 or 02 SAT < 92% Nystatin 1 applic 10/18/21 14:00 10/22/21 09:10 Nystatin Powder 15 Gm TP 10/24/21 22:01 1 applic BID JAZ Administration Ondansetron HCl 4 mg 09/24/21 18:07 10/20/21 06:04 Ondansetron 4 Mg/2 Ml Inj IV 4 mg Q8H PRN Administration Nausea And Vomiting Pantoprazole Sodium 40 mg 10/20/21 17:00 10/22/21 09:10 Pantoprazole 40 Mg Inj IV 40 mg QDAY [facility] Administration Phenol 1 spray 10/02/21 13:00 10/03/21 10:23 Phenol 1.4% 177 Ml Bottle MM 1 spray PRN PRN Administration Sore Throat Scopolamine 1 each 10/04/21 10:00 10/22/21 09:10 Scopolamine Transdermal Patch 72 Hr TD 1 each Q3D JAZ Administration Sodium Chloride 10 ml 09/24/21 22:00 10/22/21 09:11 Sodium Chloride 0.9% 10 Ml Flush Syringe IV 10 ml BID JAZ Administration Sodium Chloride 10 ml 09/24/21 18:07 09/25/21 08:34 Sodium Chloride 0.9% 10 Ml Flush Syringe IV 10 ml PRN PRN Administration LINE FLUSH Nutrition/Malnutrition Assess - Dietary Evaluation Nutrition/Malnutrition Findings: Nutrition Notes Start: 09/25/21 15:31 Freq: Status: Active Protocol: Document 10/22/21 10:04 [facility] (Rec: 10/22/21 10:06 [facility] [id number]) Nutrition Notes Current Diagnosis Sepsis,Respiratory Failure Other Pertinent Diagnosis s/p appendectomy, s/p exp lap with colostomy, anemia Current Diet CPN at 83.33 ml/hr Labs/Tests Na 135 BUN 23 Pertinent Medications Reviewed Height 5 ft 7 in Weight 109.4 kg Story Body Weight (kg) 61.36 BMI 37.8 Weight change and time frame Unable to weigh pt; bed scale not zeroed properly Weight Status Obese Subjective/Other Information Day 20 CPN. Pt on continuous BiPap therapy. Pt with episodes of anxiety which causes her to pull at BiPap mask. Precedex started to alleviate anxiety. Percent of energy/protein needs met: 86% energy 98% pro Burn Absent Trauma Absent #1 Nutrition Diagnosis Altered GI function Diagnosis Progress(for reassessment Continues documentation) Is patient on ventilator? No Is Patient Ambulatory and/or Out of Bed No REE-([facility]-confined to bed) 2205.708 Kcal/Kg value to use for calculation 16 Approximate Energy Requirements Using 1750 kcal/Kg Calculation Used for Recommendations Kcal/kg Additional Notes Pro needs 2g/kg IBW: 123g/day Fluid needs 1ml/kcal Nutrition Intervention Nutrition Support: Continue CPN at 83.33ml/hr: MVI. Osmolality: 1570. Kcal 1,500 Protein (gm) 120 Carbohydrates (gm) 300 Fat (gm) 0 Fluid (mL) 2,000 Fiber (gm) 0 Goal #1 CPN to meet at least 75% energy and pro needs Follow-Up By: 10/23/21 Additional Comments Labs in am: BMP, Mg, Phos <PAULIE HAY E - Last Filed: 10/23/21 07:08> Assessment and Plan Assessment and plan: I saw and evaluated the patient. I agree with the findings and the plan of care as documented in the Nurse Practitioner's~note, with the following corrections and additions. Repeat Chest xray Hospitalist Physical - Constitutional Vitals: Temp Pulse Resp BP Pulse Ox 98.3 F 81 41 H 112/73 96 10/23/21 03:19 10/23/21 04:30 10/23/21 04:30 10/23/21 04:30 10/23/21 04:30 Results - Labs CBC & Chem 7: 10/23/21 04:56 10/23/21 04:56 Labs: Laboratory Last Values WBC 16.5 K/mm3 (4.5-11.0) H 10/23/21 04:56 RBC 2.46 M/mm3 (3.65-5.03) L 10/23/21 04:56 Hgb 7.1 gm/dl (10.1-14.3) L 10/23/21 04:56 Hct 21.4 % (30.3-42.9) L 10/23/21 04:56 MCV 87 fl (79-97) 10/23/21 04:56 MCH 29 pg (28-32) 10/23/21 04:56 MCHC 33 % (30-34) 10/23/21 04:56 RDW 16.9 % (13.2-15.2) H 10/23/21 04:56 Plt Count 428 K/mm3 (140-440) 10/23/21 04:56 Lymph % (Auto) 4.7 % (13.4-35.0) L 10/22/21 09:02 [place] % (Auto) 10.2 % (0.0-7.3) H 10/22/21 09:02 Eos % (Auto) 0.4 % (0.0-4.3) 10/22/21 09:02 Baso % (Auto) 0.2 % (0.0-1.8) 10/22/21 09:02 Lymph # (Auto) 0.8 K/mm3 (1.2-5.4) L 10/22/21 09:02 [place] # (Auto) 1.8 K/mm3 (0.0-0.8) H 10/22/21 09:02 Eos # (Auto) 0.1 K/mm3 (0.0-0.4) 10/22/21 09:02 Baso # (Auto) 0.0 K/mm3 (0.0-0.1) 10/22/21 09:02 Add Manual Diff Complete 10/21/21 16:45 Total Counted 100 10/21/21 16:45 Seg Neutrophils % 84.5 % (40.0-70.0) H 10/22/21 09:02 Seg Neuts % (Manual) 86.0 % (40.0-70.0) H 10/21/21 16:45 Band Neutrophils % 0 % 10/21/21 16:45 Lymphocytes % (Manual) 7.0 % (13.4-35.0) L 10/21/21 16:45 Reactive Lymphs % (Man) 0 % 10/21/21 16:45 Monocytes % (Manual) 7.0 % (0.0-7.3) 10/21/21 16:45 Eosinophils % (Manual) 0 % (0.0-4.3) 10/21/21 16:45 Basophils % (Manual) 0 % (0.0-1.8) 10/21/21 16:45 Metamyelocytes % 0 % 10/21/21 16:45 Myelocytes % 0 % 10/21/21 16:45 Promyelocytes % 0 % 10/21/21 16:45 Blast Cells % 0 % 10/21/21 16:45 Nucleated RBC % Not Reportable 10/21/21 16:45 Seg Neutrophils # 14.5 K/mm3 (1.8-7.7) H 10/22/21 09:02 Seg Neutrophils # Man 18.7 K/mm3 (1.8-7.7) H 10/21/21 16:45 Band Neutrophils # 0.0 K/mm3 10/21/21 16:45 Lymphocytes # (Manual) 1.5 K/mm3 (1.2-5.4) 10/21/21 16:45 Abs React Lymphs (Man) 0.0 K/mm3 10/21/21 16:45 Monocytes # (Manual) 1.5 K/mm3 (0.0-0.8) H 10/21/21 16:45 Eosinophils # (Manual) 0.0 K/mm3 (0.0-0.4) 10/21/21 16:45 Basophils # (Manual) 0.0 K/mm3 (0.0-0.1) 10/21/21 16:45 Metamyelocytes # 0.0 K/mm3 10/21/21 16:45 Myelocytes # 0.0 K/mm3 10/21/21 16:45 Promyelocytes # 0.0 K/mm3 10/21/21 16:45 Blast Cells # 0.0 K/mm3 10/21/21 16:45 Pathologist Review 09/24/21 14:58 WBC Morphology Not Reportable 10/21/21 16:45 Hypersegmented Neuts Rare 10/21/21 16:45 Hyposegmented Neuts Not Reportable 10/21/21 16:45 Hypogranular Neuts Not Reportable 10/21/21 16:45 Smudge Cells Not Reportable 10/21/21 16:45 Toxic Granulation 2+ 10/21/21 16:45 Toxic Vacuolation Not Reportable 10/21/21 16:45 Dohle Bodies Not Reportable 10/21/21 16:45 Pelger-Huet Anomaly Not Reportable 10/21/21 16:45 Marlene Rods Not Reportable 10/21/21 16:45 Platelet Estimate Consistent w auto 10/21/21 16:45 Clumped Platelets Not Reportable 10/21/21 16:45 Plt Clumps, EDTA Not Reportable 10/21/21 16:45 Large Platelets Not Reportable 10/21/21 16:45 Giant Platelets Not Reportable 10/21/21 16:45 Platelet Satelliting Not Reportable 10/21/21 16:45 Plt Morphology Comment Not Reportable 10/21/21 16:45 RBC Morphology Normal 10/21/21 16:45 Dimorphic RBCs Not Reportable 10/21/21 16:45 Polychromasia Not Reportable 10/21/21 16:45 Hypochromasia Not Reportable 10/21/21 16:45 Poikilocytosis Not Reportable 10/21/21 16:45 Anisocytosis Not Reportable 10/21/21 16:45 Microcytosis Not Reportable 10/21/21 16:45 Macrocytosis Not Reportable 10/21/21 16:45 Spherocytes Not Reportable 10/21/21 16:45 Pappenheimer Bodies Not Reportable 10/21/21 16:45 Sickle Cells Not Reportable 10/21/21 16:45 Target Cells Not Reportable 10/21/21 16:45 Tear Drop Cells Not Reportable 10/21/21 16:45 Ovalocytes Not Reportable 10/21/21 16:45 Helmet Cells Not Reportable 10/21/21 16:45 [place] Bodies Not Reportable 10/21/21 16:45 [place] Rings Not Reportable 10/21/21 16:45 [place] Cells Not Reportable 10/21/21 16:45 Bite Cells Not Reportable 10/21/21 16:45 Crenated Cell Not Reportable 10/21/21 16:45 Elliptocytes Not Reportable 10/21/21 16:45 Acanthocytes (Spur) Not Reportable 10/21/21 16:45 Rouleaux Not Reportable 10/21/21 16:45 Hemoglobin C Crystals Not Reportable 10/21/21 16:45 Schistocytes Not Reportable 10/21/21 16:45 Malaria parasites Not Reportable 10/21/21 16:45 Flaco Bodies Not Reportable 10/21/21 16:45 Hem Pathologist Commnt No 10/21/21 16:45 PT 19.0 Sec. (12.2-14.9) H 10/14/21 04:05 INR 1.41 (0.87-1.13) H 10/14/21 04:05 APTT 33.9 Sec. (24.2-36.6) 10/14/21 04:05 D-Dimer > 86754 ng/mlDDU (0-234) H 10/09/21 08:45 ABG pH 7.509 pH Units (7.350-7.450) H 10/21/21 09:05 ABG pCO2 33.7 mm Hg 10/21/21 09:05 ABG pO2 60.3 mm Hg (80.0-90.0) L 10/21/21 09:05 ABG HCO3 26.2 mmol/L (20.0-26.0) H 10/21/21 09:05 ABG O2 Saturation 97.5 % (95.0-99.0) 10/21/21 09:05 ABG O2 Content 9.0 (0.0-44) 10/21/21 09:05 ABG Base Excess 3.0 mmol/L (-2.0-3.0) 10/21/21 09:05 ABG Hemoglobin 6.7 gm/dl (12.0-16.0) L 10/21/21 09:05 ABG Carboxyhemoglobin 1.8 % (0.0-5.0) 10/21/21 09:05 ABG Methemoglobin 0.4 % (0.0-1.5) 10/21/21 09:05 Oxyhemoglobin 95.3 % (95.0-99.0) 10/21/21 09:05 FiO2 28 % 10/21/21 09:05 Sodium 139 mmol/L (137-145) 10/23/21 04:56 Potassium 4.2 mmol/L (3.6-5.0) 10/23/21 04:56 Chloride 106.2 mmol/L (98-107) 10/23/21 04:56 Carbon Dioxide 21 mmol/L (22-30) L 10/23/21 04:56 Anion Gap 16 mmol/L 10/23/21 04:56 BUN 25 mg/dL (7-17) H 10/23/21 04:56 Creatinine 0.9 mg/dL (0.6-1.2) 10/23/21 04:56 Estimated GFR > 60 ml/min 10/23/21 04:56 BUN/Creatinine Ratio 28 % 10/23/21 04:56 Glucose 123 mg/dL (65-100) H 10/23/21 04:56 POC Glucose 130 mg/dL (70-105) H 10/23/21 05:28 Lactic Acid 1.80 mmol/L (0.7-2.0) 10/10/21 04:10 Calcium 8.3 mg/dL (8.4-10.2) L 10/23/21 04:56 Phosphorus 3.60 mg/dL (2.5-4.5) 10/23/21 04:56 Magnesium 2.00 mg/dL (1.7-2.3) 10/23/21 04:56 Ferritin 751.9 ng/mL (10.0-200.0) H 10/09/21 05:31 Total Bilirubin 0.20 mg/dL (0.1-1.2) 10/18/21 04:28 AST 19 units/L (5-40) 10/18/21 04:28 ALT 6 units/L (7-56) L 10/18/21 04:28 Alkaline Phosphatase 53 units/L (35-129) 10/18/21 04:28 Lactate Dehydrogenase 472 units/L (91-180) H 10/09/21 05:31 Total Creatine Kinase 45 units/L (30-135) 10/13/21 04:05 C-Reactive Protein 15.90 mg/dL (0.00-1.30) H 10/09/21 05:31 Total Protein 6.1 g/dL (6.3-8.2) L 10/18/21 04:28 Albumin 2.0 g/dL (3.9-5) L 10/18/21 04:28 Albumin/Globulin Ratio 0.5 % 10/18/21 04:28 Triglycerides 80 mg/dL (2-149) 10/14/21 04:05 Procalcitonin 12.98 ng/mL (<0.15) 10/09/21 05:31 Urine Color Yellow (Yellow) 10/18/21 11:40 Urine Turbidity Clear (Clear) 10/18/21 11:40 Urine pH 6.0 (5.0-7.0) 10/18/21 11:40 Ur Specific Lorenzo 1.015 (1.003-1.030) 10/18/21 11:40 Urine Protein 30 mg/dl mg/dL (Negative) 10/18/21 11:40 Urine Glucose (UA) Trace mg/dL (Negative) 10/18/21 11:40 Urine Ketones Negative mg/dL (Negative) 10/18/21 11:40 Urine Blood Moderate (Negative) A 10/18/21 11:40 Urine Nitrite Negative (Negative) 10/18/21 11:40 Ur Reducing Substances Not Reportable 09/24/21 14:49 Urine Bilirubin Negative (Negative) 10/18/21 11:40 Urine Ictotest Not Reportable 09/24/21 14:49 Urine Urobilinogen 0.0 mg/dL (<2.0) 10/18/21 11:40 Ur Leukocyte Esterase Negative (Negative) 10/18/21 11:40 Urine WBC (Auto) 50.0 /HPF (0.0-6.0) H 10/18/21 11:40 Urine RBC (Auto) > 182.0 /HPF (0.0-6.0) 10/18/21 11:40 U Epithel Cells (Auto) 2.0 /HPF (0-13.0) 10/18/21 11:40 Urine Bacteria (Auto) 2+ /HPF (Negative) 10/18/21 11:40 Urine WBC Clumps 1+ /HPF 10/18/21 11:40 Hyaline Casts Few /LPF 10/18/21 11:40 Granular Casts Few /LPF 10/18/21 11:40 Urine Mucus 3+ /HPF 10/18/21 11:40 Urine HCG, Qual Negative (Negative) 09/24/21 14:49 Coronavirus (PCR) Negative (Negative) 10/09/21 10:15 Blood Type A POSITIVE 10/17/21 12:50 Antibody Screen Negative 10/17/21 12:50 Crossmatch See Detail 10/17/21 12:50 Microbiology: Microbiology 10/18/21 08:17 Peripheral/Venous Blood Culture - Preliminary NO GROWTH AFTER 4 DAYS 10/18/21 08:17 Peripheral/Venous Blood Culture - Preliminary NO GROWTH AFTER 4 DAYS [place]/IV: Voiding Method External Female Catheter Active Medications - Current Medications Current Medications: Generic Name Dose Route Start Last Admin Trade Name Freq PRN Reason Stop Dose Admin Acetaminophen 650 mg 10/08/21 21:38 Acetaminophen 325 Mg Tab PO Q6H PRN Pain, Mild (1-3) Albuterol 2.5 mg 09/24/21 18:07 Albuterol 2.5 Mg/3 Ml Nebu IH Q4HRT PRN Shortness Of Breath Dextrose 0 ml 10/03/21 12:37 Dextrose 10% *Hypoglycemia IV PRN PRN Hypoglycemia Diphenhydramine HCl 25 mg 10/04/21 15:14 10/22/21 23:56 Diphenhydramine 50 Mg/Ml Vial IV 25 mg Q6H PRN Administration Itching Heparin Sodium (Porcine) 5,000 unit 10/16/21 10:00 10/23/21 00:05 Heparin 5,000 Unit/1 Ml Vial SUB-Q 5,000 unit Q12HR JAZ Administration Hydromorphone HCl 0.5 mg 10/18/21 15:39 10/20/21 23:10 Hydromorphone 1 Mg/1 Ml Inj IV 0.5 mg Q3H PRN Administration Pain, Moderate (4-6) Hydrophilic Ointment 1 applic 10/08/21 21:00 10/19/21 21:59 Lip Therapy Vaseline TP 1 applic Q2HR PRN Administration Dry Lips Fluconazole 200 mls @ 100 mls/hr 10/13/21 10:00 10/22/21 11:08 Diflucan IV Infused Q24HR [facility] Infusion Protocol Trimethoprim/Sulfamethoxazole 525 mls @ 167 mls/hr 10/18/21 12:00 10/23/21 06:27 400 mg/ Dextrose IV 167 mls/hr Q6HR [facility] Administration Protocol Amino Acids/Electrolytes/Dextrose 1,999.92 mls @ 83.33 mls/hr 10/21/21 20:00 10/22/21 20:10 Tpn Adult IV 83.33 mls/hr DAILY@1999 [facility] Administration Protocol Dexmedetomidine HCl 400 mcg/ 104 mls @ 5.689 mls/hr 10/21/21 17:00 10/23/21 04:27 Sodium Chloride IV 0.6 mcg/kg/hr TITRATE JAZ 17.066 mls/hr Administration Protocol 0.2 MCG/KG/HR Insulin Glargine 5 units 10/13/21 10:00 10/22/21 09:08 Insulin Glargine 100 Units/Ml SUB-Q 5 units QDAY [facility] Administration Insulin Human Regular 0 units 10/10/21 00:00 10/23/21 06:30 Insulin Regular, Human 100 Units/1 Ml SUB-Q Not Given Q6HR [facility] Protocol Labetalol HCl 10 mg 10/01/21 08:31 10/20/21 09:56 Labetalol 20 Mg/4 Ml Inj IV 10 mg Q6H PRN Administration Hypertension Lorazepam 1 mg 10/21/21 12:48 10/22/21 20:06 Lorazepam 2 Mg/Ml Vial IV 1 mg Q4H PRN Administration Anxiety Multi-Ingred Cream/Lotion/Oil/Oint 1 applic 10/08/21 21:00 Mineral Oil/Petrolatum, White Ophth Oint 3.5 Gm OU Q4HR PRN Dry Eye(s) Naloxone HCl 0.1 mg 10/03/21 14:00 Naloxone 0.4 Mg/1 Ml Inj IV Q2MIN PRN Res Rate </= 8 or 02 SAT < 92% Nystatin 1 applic 10/18/21 14:00 10/23/21 06:29 Nystatin Powder 15 Gm TP 10/24/21 22:01 1 applic BID JAZ Administration Ondansetron HCl 4 mg 09/24/21 18:07 10/20/21 06:04 Ondansetron 4 Mg/2 Ml Inj IV 4 mg Q8H PRN Administration Nausea And Vomiting Pantoprazole Sodium 40 mg 10/20/21 17:00 10/22/21 09:10 Pantoprazole 40 Mg Inj IV 40 mg QDAY JAZ Administration Phenol 1 spray 10/02/21 13:00 10/03/21 10:23 Phenol 1.4% 177 Ml Bottle MM 1 spray PRN PRN Administration Sore Throat Scopolamine 1 each 10/04/21 10:00 10/22/21 09:10 Scopolamine Transdermal Patch 72 Hr TD 1 each Q3D JAZ Administration Sodium Chloride 10 ml 09/24/21 22:00 10/23/21 06:30 Sodium Chloride 0.9% 10 Ml Flush Syringe IV 10 ml BID JAZ Administration Sodium Chloride 10 ml 09/24/21 18:07 09/25/21 08:34 Sodium Chloride 0.9% 10 Ml Flush Syringe IV 10 ml PRN PRN Administration LINE FLUSH Nutrition/Malnutrition Assess - Dietary Evaluation Nutrition/Malnutrition Findings: Nutrition Notes Start: 09/25/21 15:31 Freq: Status: Active Protocol: Document 10/22/21 10:04 BRYAN (Rec: 10/22/21 10:06 BRYAN [id number]) Nutrition Notes Current Diagnosis Sepsis,Respiratory Failure Other Pertinent Diagnosis s/p appendectomy, s/p exp lap with colostomy, anemia Current Diet CPN at 83.33 ml/hr Labs/Tests Na 135 BUN 23 Pertinent Medications Reviewed Height 5 ft 7 in Weight 109.4 kg Story Body Weight (kg) 61.36 BMI 37.8 Weight change and time frame Unable to weigh pt; bed scale not zeroed properly Weight Status Obese Subjective/Other Information Day 20 CPN. Pt on continuous BiPap therapy. Pt with episodes of anxiety which causes her to pull at BiPap mask. Precedex started to alleviate anxiety. Percent of energy/protein needs met: 86% energy 98% pro Burn Absent Trauma Absent #1 Nutrition Diagnosis Altered GI function Diagnosis Progress(for reassessment Continues documentation) Is patient on ventilator? No Is Patient Ambulatory and/or Out of Bed No REE-([facility]-confined to bed) 2205.708 Kcal/Kg value to use for calculation 16 Approximate Energy Requirements Using 1750 kcal/Kg Calculation Used for Recommendations Kcal/kg Additional Notes Pro needs 2g/kg IBW: 123g/day Fluid needs 1ml/kcal Nutrition Intervention Nutrition Support: Continue CPN at 83.33ml/hr: MVI. Osmolality: 1570. Kcal 1,500 Protein (gm) 120 Carbohydrates (gm) 300 Fat (gm) 0 Fluid (mL) 2,000 Fiber (gm) 0 Goal #1 CPN to meet at least 75% energy and pro needs Follow-Up By: 10/23/21 Additional Comments Labs in am: BMP, Mg, Phos
--- NOTE | 2021-10-22 14:38 | Progress Note ---
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 Open left hemicolectomy and partial omentectomy Peritonitis Leukocytosis Diverticulitis with absces -CT abd/pelvis showed diverticulitis with abscess -General surgery following, assistance appreciated -s/p diagnositic laparatomy and drain placement 09/26/2021 Returned to the OR on 09/30/2021 for left hemicolectomy, appendectomy, and partial omentectomy -Wound culture +VRE Acute renal failure 2/ ATN/Vasomotor nephropathy Acute blood loss anemia Gross Hematuria-resolved -09/08 to surgical procedures-- c/f ureteral injury -s/p 3 units of pRBCs since admission Lower extremity dopplers are negative Remains strict NPO , remains on TPN Remains on Precedex WCC is slowly improving CTA and CT abdomen and pelvis pending -continue to titrate supplemental oxygen to keep SPO2 88-90% -CXR , ABG as indicated -trend temperature curve, trend WCC -Antibiotics per ID. -NPO, TPN for nutritional support - continue bronchodilators with pulmonary hygiene per RT -Incentive spirometry; PT/OT, increase activity as tolerated - Accuchecks with glycemic control per SSI (While critically ill target blood glucose of 140-180 mg/dL; avoid hypoglycemia) - continue to avoid benzodiazepines, reduce the possibility of delirium - Maintenance of sleep-wake cycle, avoid delirium -Supportive transfusions, to keep HgB >7g/dL -Avoid nephrotoxins and dose all medications for GFR and CrCL - mobility, off loading and frequent turning to prevent pressure ulcer - Monitor hemodynamics closely - continue other care per attending / other consultants CONDITION: FAIR PROGNOSIS: GUARDED CODE STATUS: FULL CODE Subjective Date of service: 10/22/21 Principal diagnosis: BRYANNA Interval history: Patient is seen today for: Septic shock; AHRF; Anemia; Pneumonia (Aspiration); 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 CT PE protocol, CT abdomen and pelvis pending Objective Vital Signs - 12hr 10/22/21 10/22/21 10/22/21 03:00 03:30 04:00 Temperature Pulse Rate 87 87 97 H Pulse Rate [ 103 H From Monitor] Respiratory 30 H 26 H 30 H Rate Blood Pressure 108/69 116/79 129/93 O2 Sat by Pulse 100 100 100 Oximetry 10/22/21 10/22/21 10/22/21 04:30 05:00 05:30 Temperature Pulse Rate 99 H 87 78 Pulse Rate [ From Monitor] Respiratory 26 H 24 26 H Rate Blood Pressure 124/91 129/97 125/85 O2 Sat by Pulse 100 100 100 Oximetry 10/22/21 10/22/21 10/22/21 06:00 06:30 07:00 Temperature Pulse Rate 85 79 81 Pulse Rate [ From Monitor] Respiratory 28 H 24 30 H Rate Blood Pressure 117/80 124/88 123/81 O2 Sat by Pulse 100 100 100 Oximetry 10/22/21 10/22/21 10/22/21 07:15 07:30 08:00 Temperature 99.7 F H Pulse Rate 78 86 Pulse Rate [ 81 From Monitor] Respiratory 28 H 17 Rate Blood Pressure 134/88 128/95 O2 Sat by Pulse 100 100 Oximetry 10/22/21 10/22/21 10/22/21 08:30 09:00 09:30 Temperature Pulse Rate 97 H 85 78 Pulse Rate [ From Monitor] Respiratory 31 H 32 H 27 H Rate Blood Pressure 128/92 115/76 115/76 O2 Sat by Pulse 99 100 100 Oximetry 10/22/21 10/22/21 10/22/21 09:43 10:00 10:30 Temperature Pulse Rate 88 84 Pulse Rate [ From Monitor] Respiratory 27 H 22 Rate Blood Pressure 113/69 117/77 O2 Sat by Pulse 100 100 100 Oximetry 10/22/21 10/22/21 10/22/21 11:00 11:25 11:30 Temperature 99.7 F H Pulse Rate 83 82 Pulse Rate [ From Monitor] Respiratory 31 H 34 H Rate Blood Pressure 119/81 117/81 O2 Sat by Pulse 97 99 Oximetry 10/22/21 10/22/21 10/22/21 11:41 12:00 12:30 Temperature Pulse Rate 84 83 83 Pulse Rate [ 84 From Monitor] Respiratory 32 H 26 H 26 H Rate Blood Pressure 117/82 120/81 O2 Sat by Pulse 96 97 96 Oximetry 10/22/21 10/22/21 10/22/21 13:00 13:47 14:01 Temperature Pulse Rate 82 88 84 Pulse Rate [ From Monitor] Respiratory 29 H 29 H 37 H Rate Blood Pressure 121/84 115/82 115/82 O2 Sat by Pulse 98 98 44 L Oximetry Constitutional: alert, agitated, appears uncomfortable, other (in moderate resp distress) Eyes: non-icteric ENT: oropharynx moist, other (RIJ CVL) Neck: supple, other (RIJCVL) Effort: mildly labored Ascultation: Bilateral: diminished breath sounds, rhonchi Percussion: Bilateral: not dull Cardiovascular: regular rate and rhythm, other (S1,S2) Gastrointestinal: hypoactive bowel sounds, other (YURIDIA drains, anterior abdominal dressings, Doss catheter) Integumentary: other (tatooed) Extremities: cool, edema Neurologic: normal mental status, non-focal exam, pupils equal and round, motor strength normal and Psychiatric: mood appropriate, affect normal CBC and BMP: 10/23/21 04:56 10/23/21 04:56 ABG, PT/INR, D-dimer: ABG ABG pH 7.509 pH Units (7.350-7.450) H 10/21/21 09:05 ABG pCO2 33.7 mm Hg 10/21/21 09:05 ABG pO2 60.3 mm Hg (80.0-90.0) L 10/21/21 09:05 ABG O2 Saturation 97.5 % (95.0-99.0) 10/21/21 09:05 PT/INR, D-dimer PT 19.0 Sec. (12.2-14.9) H 10/14/21 04:05 INR 1.41 (0.87-1.13) H 10/14/21 04:05 D-Dimer > 08403 ng/mlDDU (0-234) H 10/09/21 08:45 Abnormal lab findings: Abnormal Labs 09/24/21 09/24/21 09/24/21 14:49 14:58 14:58 WBC 32.4 H RBC Hgb Hct MCH MCHC RDW Plt Count 535 H Lymph % (Auto) [place] % (Auto) Lymph # (Auto) [place] # (Auto) Seg Neutrophils % Seg Neuts % (Manual) 82.0 H Lymphocytes % (Manual) 2.0 L Monocytes % (Manual) Nucleated RBC % Seg Neutrophils # Seg Neutrophils # Man 26.6 H Lymphocytes # (Manual) 0.6 L Monocytes # (Manual) 1.6 H PT INR D-Dimer ABG pH ABG pO2 ABG HCO3 ABG O2 Saturation ABG Base Excess ABG Hemoglobin Oxyhemoglobin Sodium 134 L Potassium 3.5 L Chloride 97.6 L Carbon Dioxide BUN Creatinine Glucose 119 H POC Glucose Lactic Acid Calcium Phosphorus Magnesium Ferritin ALT Lactate Dehydrogenase Total Creatine Kinase C-Reactive Protein Total Protein 6.1 L Albumin 3.3 L Urine Blood Urine WBC (Auto) U Epithel Cells (Auto) 18.0 H Crossmatch 09/25/21 09/25/21 09/26/21 05:47 05:47 04:20 WBC 25.4 H 23.6 H RBC 3.54 L Hgb Hct MCH MCHC RDW Plt Count 466 H 486 H Lymph % (Auto) [place] % (Auto) Lymph # (Auto) [place] # (Auto) Seg Neutrophils % Seg Neuts % (Manual) 93.0 H 86.0 H Lymphocytes % (Manual) 4.0 L 3.0 L Monocytes % (Manual) Nucleated RBC % Seg Neutrophils # Seg Neutrophils # Man 23.6 H 20.3 H Lymphocytes # (Manual) 1.0 L 0.7 L Monocytes # (Manual) 0.9 H PT INR D-Dimer ABG pH ABG pO2 ABG HCO3 ABG O2 Saturation ABG Base Excess ABG Hemoglobin Oxyhemoglobin Sodium 136 L Potassium 3.0 L Chloride Carbon Dioxide 21 L BUN Creatinine Glucose POC Glucose Lactic Acid Calcium 7.8 L Phosphorus Magnesium Ferritin ALT Lactate Dehydrogenase Total Creatine Kinase C-Reactive Protein Total Protein Albumin Urine Blood Urine WBC (Auto) U Epithel Cells (Auto) Crossmatch 09/26/21 09/27/21 09/27/21 04:20 08:28 08:28 WBC 20.6 H RBC 3.42 L Hgb 9.9 L Hct 29.5 L D MCH MCHC RDW Plt Count Lymph % (Auto) [place] % (Auto) Lymph # (Auto) [place] # (Auto) Seg Neutrophils % Seg Neuts % (Manual) 94.1 H Lymphocytes % (Manual) 1.0 L Monocytes % (Manual) Nucleated RBC % Seg Neutrophils # Seg Neutrophils # Man 19.4 H Lymphocytes # (Manual) 0.2 L Monocytes # (Manual) PT INR D-Dimer ABG pH ABG pO2 ABG HCO3 ABG O2 Saturation ABG Base Excess ABG Hemoglobin Oxyhemoglobin Sodium Potassium 3.2 L Chloride Carbon Dioxide 20 L BUN Creatinine Glucose 137 H POC Glucose Lactic Acid Calcium 8.3 L 8.2 L Phosphorus Magnesium Ferritin ALT Lactate Dehydrogenase Total Creatine Kinase C-Reactive Protein Total Protein Albumin Urine Blood Urine WBC (Auto) U Epithel Cells (Auto) Crossmatch 09/28/21 09/28/21 09/29/21 04:55 15:35 07:02 WBC 15.1 H 16.5 H RBC 3.34 L 3.20 L Hgb 9.3 L 9.1 L Hct 28.7 L 27.3 L MCH MCHC RDW 15.3 H Plt Count 444 H 469 H Lymph % (Auto) [place] % (Auto) Lymph # (Auto) [place] # (Auto) 0.9 H Seg Neutrophils % 89.3 H Seg Neuts % (Manual) 88.0 H 80.0 H Lymphocytes % (Manual) 9.0 L 8.0 L Monocytes % (Manual) Nucleated RBC % Seg Neutrophils # 14.0 H Seg Neutrophils # Man 13.3 H 13.2 H Lymphocytes # (Manual) Monocytes # (Manual) PT INR D-Dimer ABG pH ABG pO2 ABG HCO3 ABG O2 Saturation ABG Base Excess ABG Hemoglobin Oxyhemoglobin Sodium Potassium 3.3 L Chloride 109.4 H Carbon Dioxide 20 L BUN Creatinine 0.5 L Glucose POC Glucose Lactic Acid Calcium 7.9 L Phosphorus Magnesium Ferritin ALT Lactate Dehydrogenase Total Creatine Kinase C-Reactive Protein Total Protein Albumin Urine Blood Urine WBC (Auto) U Epithel Cells (Auto) Crossmatch 09/30/21 09/30/21 10/01/21 05:40 05:40 07:49 WBC 17.4 H 17.9 H RBC 3.37 L 3.32 L Hgb 9.2 L 9.3 L Hct 28.4 L 28.3 L MCH 27 L MCHC RDW 15.4 H 15.5 H Plt Count 530 H 604 H Lymph % (Auto) [place] % (Auto) Lymph # (Auto) [place] # (Auto) Seg Neutrophils % Seg Neuts % (Manual) 91.0 H 72.0 H Lymphocytes % (Manual) 9.0 L 1.0 L Monocytes % (Manual) 8.0 H Nucleated RBC % 1.0 H Seg Neutrophils # Seg Neutrophils # Man 15.8 H 12.9 H Lymphocytes # (Manual) 0.2 L Monocytes # (Manual) 1.4 H PT INR D-Dimer ABG pH ABG pO2 ABG HCO3 ABG O2 Saturation ABG Base Excess ABG Hemoglobin Oxyhemoglobin Sodium Potassium 3.5 L Chloride Carbon Dioxide 21 L BUN Creatinine 0.5 L Glucose POC Glucose Lactic Acid Calcium 8.0 L Phosphorus Magnesium Ferritin ALT Lactate Dehydrogenase Total Creatine Kinase C-Reactive Protein Total Protein Albumin Urine Blood Urine WBC (Auto) U Epithel Cells (Auto) Crossmatch 10/01/21 10/01/21 10/02/21 07:49 10:45 05:41 WBC 23.2 H RBC 2.90 L Hgb 7.9 L Hct 24.8 L MCH 27 L MCHC RDW 15.3 H Plt Count 621 H Lymph % (Auto) [place] % (Auto) Lymph # (Auto) [place] # (Auto) Seg Neutrophils % Seg Neuts % (Manual) 88.0 H Lymphocytes % (Manual) 2.0 L Monocytes % (Manual) Nucleated RBC % Seg Neutrophils # Seg Neutrophils # Man 20.4 H Lymphocytes # (Manual) 0.5 L Monocytes # (Manual) 1.4 H PT INR D-Dimer ABG pH ABG pO2 ABG HCO3 ABG O2 Saturation ABG Base Excess ABG Hemoglobin Oxyhemoglobin Sodium Potassium Chloride Carbon Dioxide 20 L BUN Creatinine 0.5 L Glucose POC Glucose Lactic Acid Calcium 7.6 L Phosphorus Magnesium Ferritin ALT Lactate Dehydrogenase Total Creatine Kinase C-Reactive Protein Total Protein Albumin Urine Blood Urine WBC (Auto) U Epithel Cells (Auto) Crossmatch See Detail 10/02/21 10/02/21 10/02/21 05:41 07:47 11:10 WBC RBC Hgb Hct MCH MCHC RDW Plt Count Lymph % (Auto) [place] % (Auto) Lymph # (Auto) [place] # (Auto) Seg Neutrophils % Seg Neuts % (Manual) Lymphocytes % (Manual) Monocytes % (Manual) Nucleated RBC % Seg Neutrophils # Seg Neutrophils # Man Lymphocytes # (Manual) Monocytes # (Manual) PT INR D-Dimer ABG pH ABG pO2 ABG HCO3 ABG O2 Saturation ABG Base Excess ABG Hemoglobin Oxyhemoglobin Sodium Potassium Chloride Carbon Dioxide BUN Creatinine Glucose 130 H POC Glucose 145 H 120 H Lactic Acid Calcium 6.9 L Phosphorus Magnesium Ferritin ALT Lactate Dehydrogenase Total Creatine Kinase C-Reactive Protein Total Protein Albumin Urine Blood Urine WBC (Auto) U Epithel Cells (Auto) Crossmatch 10/02/21 10/03/21 10/03/21 16:14 04:55 04:55 WBC 26.1 H RBC 2.31 L Hgb 6.3 L Hct 19.8 L* MCH MCHC RDW 15.9 H Plt Count 598 H Lymph % (Auto) [place] % (Auto) Lymph # (Auto) [place] # (Auto) Seg Neutrophils % Seg Neuts % (Manual) 82.0 H Lymphocytes % (Manual) 1.0 L Monocytes % (Manual) 10.0 H Nucleated RBC % Seg Neutrophils # Seg Neutrophils # Man 21.4 H Lymphocytes # (Manual) 0.3 L Monocytes # (Manual) 2.6 H PT INR D-Dimer ABG pH ABG pO2 ABG HCO3 ABG O2 Saturation ABG Base Excess ABG Hemoglobin Oxyhemoglobin Sodium Potassium Chloride Carbon Dioxide BUN 22 H Creatinine 1.7 H D Glucose 145 H POC Glucose 109 H Lactic Acid Calcium 6.4 L Phosphorus Magnesium 2.40 H Ferritin ALT Lactate Dehydrogenase Total Creatine Kinase C-Reactive Protein Total Protein 4.2 L Albumin 1.6 L Urine Blood Urine WBC (Auto) U Epithel Cells (Auto) Crossmatch 10/03/21 10/03/21 10/03/21 07:15 11:49 17:06 WBC RBC Hgb Hct MCH MCHC RDW Plt Count Lymph % (Auto) [place] % (Auto) Lymph # (Auto) [place] # (Auto) Seg Neutrophils % Seg Neuts % (Manual) Lymphocytes % (Manual) Monocytes % (Manual) Nucleated RBC % Seg Neutrophils # Seg Neutrophils # Man Lymphocytes # (Manual) Monocytes # (Manual) PT INR D-Dimer ABG pH ABG pO2 ABG HCO3 ABG O2 Saturation ABG Base Excess ABG Hemoglobin Oxyhemoglobin Sodium Potassium Chloride Carbon Dioxide BUN Creatinine Glucose POC Glucose 162 H 171 H 174 H Lactic Acid Calcium Phosphorus Magnesium Ferritin ALT Lactate Dehydrogenase Total Creatine Kinase C-Reactive Protein Total Protein Albumin Urine Blood Urine WBC (Auto) U Epithel Cells (Auto) Crossmatch 10/03/21 10/04/2110/04/22 23:31 04:44 04:44 WBC 26.4 H RBC 2.33 L Hgb 6.6 L Hct 19.4 L* MCH MCHC RDW 16.1 H Plt Count 602 H Lymph % (Auto) [place] % (Auto) Lymph # (Auto) [place] # (Auto) Seg Neutrophils % Seg Neuts % (Manual) 80.0 H Lymphocytes % (Manual) 5.0 L Monocytes % (Manual) Nucleated RBC % Seg Neutrophils # Seg Neutrophils # Man 21.1 H Lymphocytes # (Manual) Monocytes # (Manual) 1.8 H PT INR D-Dimer ABG pH ABG pO2 ABG HCO3 ABG O2 Saturation ABG Base Excess ABG Hemoglobin Oxyhemoglobin Sodium 135 L Potassium 3.4 L Chloride Carbon Dioxide 21 L BUN 28 H Creatinine 2.0 H Glucose 171 H POC Glucose 179 H Lactic Acid Calcium 6.7 L Phosphorus 1.30 L D Magnesium 2.40 H Ferritin ALT Lactate Dehydrogenase Total Creatine Kinase C-Reactive Protein Total Protein Albumin Urine Blood Urine WBC (Auto) U Epithel Cells (Auto) Crossmatch 10/04/21 10/04/21 10/04/21 05:25 12:01 13:30 WBC RBC Hgb Hct MCH MCHC RDW Plt Count Lymph % (Auto) [place] % (Auto) Lymph # (Auto) [place] # (Auto) Seg Neutrophils % Seg Neuts % (Manual) Lymphocytes % (Manual) Monocytes % (Manual) Nucleated RBC % Seg Neutrophils # Seg Neutrophils # Man Lymphocytes # (Manual) Monocytes # (Manual) PT INR D-Dimer ABG pH ABG pO2 ABG HCO3 ABG O2 Saturation ABG Base Excess ABG Hemoglobin Oxyhemoglobin Sodium Potassium Chloride Carbon Dioxide BUN Creatinine Glucose POC Glucose 174 H 172 H Lactic Acid Calcium Phosphorus Magnesium Ferritin ALT Lactate Dehydrogenase Total Creatine Kinase C-Reactive Protein Total Protein Albumin Urine Blood Urine WBC (Auto) U Epithel Cells (Auto) Crossmatch See Detail 10/04/21 10/04/21 10/04/21 16:47 20:28 22:23 WBC RBC Hgb 8.5 L Hct 25.1 L MCH MCHC RDW Plt Count Lymph % (Auto) [place] % (Auto) Lymph # (Auto) [place] # (Auto) Seg Neutrophils % Seg Neuts % (Manual) Lymphocytes % (Manual) Monocytes % (Manual) Nucleated RBC % Seg Neutrophils # Seg Neutrophils # Man Lymphocytes # (Manual) Monocytes # (Manual) PT INR D-Dimer ABG pH ABG pO2 ABG HCO3 ABG O2 Saturation ABG Base Excess ABG Hemoglobin Oxyhemoglobin Sodium Potassium Chloride Carbon Dioxide BUN Creatinine Glucose POC Glucose 135 H 152 H Lactic Acid Calcium Phosphorus Magnesium Ferritin ALT Lactate Dehydrogenase Total Creatine Kinase C-Reactive Protein Total Protein Albumin Urine Blood Urine WBC (Auto) U Epithel Cells (Auto) Crossmatch 10/05/21 10/05/21 10/05/21 04:40 04:40 04:40 WBC 24.7 H RBC 3.02 L Hgb 8.4 L Hct 25.5 L MCH MCHC RDW 16.2 H Plt Count 644 H Lymph % (Auto) [place] % (Auto) Lymph # (Auto) [place] # (Auto) Seg Neutrophils % Seg Neuts % (Manual) 91.0 H Lymphocytes % (Manual) 7.0 L Monocytes % (Manual) Nucleated RBC % Seg Neutrophils # Seg Neutrophils # Man 22.5 H Lymphocytes # (Manual) Monocytes # (Manual) PT 17.8 H INR 1.31 H D-Dimer ABG pH ABG pO2 ABG HCO3 ABG O2 Saturation ABG Base Excess ABG Hemoglobin Oxyhemoglobin Sodium 135 L Potassium Chloride Carbon Dioxide BUN 29 H Creatinine 2.1 H Glucose 156 H POC Glucose Lactic Acid Calcium 7.6 L Phosphorus 1.90 L D Magnesium Ferritin ALT Lactate Dehydrogenase Total Creatine Kinase C-Reactive Protein Total Protein 5.2 L D Albumin 1.8 L Urine Blood Urine WBC (Auto) U Epithel Cells (Auto) Crossmatch 10/05/21 10/05/21 10/05/21 05:08 18:17 23:37 WBC RBC Hgb Hct MCH MCHC RDW Plt Count Lymph % (Auto) [place] % (Auto) Lymph # (Auto) [place] # (Auto) Seg Neutrophils % Seg Neuts % (Manual) Lymphocytes % (Manual) Monocytes % (Manual) Nucleated RBC % Seg Neutrophils # Seg Neutrophils # Man Lymphocytes # (Manual) Monocytes # (Manual) PT INR D-Dimer ABG pH ABG pO2 ABG HCO3 ABG O2 Saturation ABG Base Excess ABG Hemoglobin Oxyhemoglobin Sodium Potassium Chloride Carbon Dioxide BUN Creatinine Glucose POC Glucose 156 H 119 H 130 H Lactic Acid Calcium Phosphorus Magnesium Ferritin ALT Lactate Dehydrogenase Total Creatine Kinase C-Reactive Protein Total Protein Albumin Urine Blood Urine WBC (Auto) U Epithel Cells (Auto) Crossmatch 10/06/21 10/06/21 10/06/21 04:27 05:27 05:27 WBC 23.4 H RBC 2.84 L Hgb 7.8 L Hct 23.9 L MCH MCHC RDW 16.2 H Plt Count 712 H Lymph % (Auto) [place] % (Auto) Lymph # (Auto) [place] # (Auto) Seg Neutrophils % Seg Neuts % (Manual) Lymphocytes % (Manual) Monocytes % (Manual) Nucleated RBC % Seg Neutrophils # Seg Neutrophils # Man Lymphocytes # (Manual) Monocytes # (Manual) PT INR D-Dimer ABG pH ABG pO2 ABG HCO3 ABG O2 Saturation ABG Base Excess ABG Hemoglobin Oxyhemoglobin Sodium 134 L Potassium Chloride Carbon Dioxide 20 L BUN 28 H Creatinine 1.9 H Glucose 132 H POC Glucose 132 H Lactic Acid Calcium 7.8 L Phosphorus Magnesium Ferritin ALT Lactate Dehydrogenase Total Creatine Kinase 242 H C-Reactive Protein Total Protein Albumin Urine Blood Urine WBC (Auto) U Epithel Cells (Auto) Crossmatch 10/06/21 10/06/21 10/06/21 16:40 20:50 23:39 WBC RBC Hgb Hct MCH MCHC RDW Plt Count Lymph % (Auto) [place] % (Auto) Lymph # (Auto) [place] # (Auto) Seg Neutrophils % Seg Neuts % (Manual) Lymphocytes % (Manual) Monocytes % (Manual) Nucleated RBC % Seg Neutrophils # Seg Neutrophils # Man Lymphocytes # (Manual) Monocytes # (Manual) PT INR D-Dimer ABG pH ABG pO2 ABG HCO3 ABG O2 Saturation ABG Base Excess ABG Hemoglobin Oxyhemoglobin Sodium Potassium Chloride Carbon Dioxide BUN Creatinine Glucose POC Glucose 133 H 116 H 132 H Lactic Acid Calcium Phosphorus Magnesium Ferritin ALT Lactate Dehydrogenase Total Creatine Kinase C-Reactive Protein Total Protein Albumin Urine Blood Urine WBC (Auto) U Epithel Cells (Auto) Crossmatch 10/07/21 10/07/21 10/07/21 05:09 05:13 09:43 WBC 22.3 H RBC 2.81 L Hgb 7.8 L Hct 24.0 L MCH MCHC RDW 16.5 H Plt Count 733 H Lymph % (Auto) [place] % (Auto) Lymph # (Auto) [place] # (Auto) Seg Neutrophils % Seg Neuts % (Manual) 85.0 H Lymphocytes % (Manual) 1.0 L Monocytes % (Manual) Nucleated RBC % Seg Neutrophils # Seg Neutrophils # Man 19.0 H Lymphocytes # (Manual) 0.2 L Monocytes # (Manual) 1.6 H PT INR D-Dimer ABG pH ABG pO2 ABG HCO3 ABG O2 Saturation ABG Base Excess ABG Hemoglobin Oxyhemoglobin Sodium 136 L Potassium Chloride Carbon Dioxide 20 L BUN 29 H Creatinine 1.9 H Glucose 140 H POC Glucose 139 H Lactic Acid Calcium 7.6 L Phosphorus Magnesium Ferritin ALT Lactate Dehydrogenase Total Creatine Kinase C-Reactive Protein Total Protein Albumin Urine Blood Urine WBC (Auto) U Epithel Cells (Auto) Crossmatch 10/07/21 10/07/21 10/08/21 11:38 17:44 00:20 WBC RBC Hgb Hct MCH MCHC RDW Plt Count Lymph % (Auto) [place] % (Auto) Lymph # (Auto) [place] # (Auto) Seg Neutrophils % Seg Neuts % (Manual) Lymphocytes % (Manual) Monocytes % (Manual) Nucleated RBC % Seg Neutrophils # Seg Neutrophils # Man Lymphocytes # (Manual) Monocytes # (Manual) PT INR D-Dimer ABG pH ABG pO2 ABG HCO3 ABG O2 Saturation ABG Base Excess ABG Hemoglobin Oxyhemoglobin Sodium Potassium Chloride Carbon Dioxide BUN Creatinine Glucose POC Glucose 126 H 113 H 129 H Lactic Acid Calcium Phosphorus Magnesium Ferritin ALT Lactate Dehydrogenase Total Creatine Kinase C-Reactive Protein Total Protein Albumin Urine Blood Urine WBC (Auto) U Epithel Cells (Auto) Crossmatch 10/08/21 10/08/21 10/08/21 05:26 05:26 05:29 WBC 21.8 H RBC 2.84 L Hgb 7.8 L Hct 24.1 L MCH 27 L MCHC RDW 16.5 H Plt Count 789 H Lymph % (Auto) [place] % (Auto) Lymph # (Auto) [place] # (Auto) Seg Neutrophils % Seg Neuts % (Manual) Lymphocytes % (Manual) Monocytes % (Manual) Nucleated RBC % Seg Neutrophils # Seg Neutrophils # Man Lymphocytes # (Manual) Monocytes # (Manual) PT INR D-Dimer ABG pH ABG pO2 ABG HCO3 ABG O2 Saturation ABG Base Excess ABG Hemoglobin Oxyhemoglobin Sodium 136 L Potassium Chloride Carbon Dioxide 20 L BUN 31 H Creatinine 1.7 H Glucose 134 H POC Glucose 123 H Lactic Acid Calcium 7.9 L Phosphorus 4.60 H D Magnesium Ferritin ALT Lactate Dehydrogenase Total Creatine Kinase C-Reactive Protein Total Protein Albumin Urine Blood Urine WBC (Auto) U Epithel Cells (Auto) Crossmatch 10/08/21 10/08/21 10/08/21 11:53 17:07 20:08 WBC RBC Hgb Hct MCH MCHC RDW Plt Count Lymph % (Auto) [place] % (Auto) Lymph # (Auto) [place] # (Auto) Seg Neutrophils % Seg Neuts % (Manual) Lymphocytes % (Manual) Monocytes % (Manual) Nucleated RBC % Seg Neutrophils # Seg Neutrophils # Man Lymphocytes # (Manual) Monocytes # (Manual) PT INR D-Dimer ABG pH 7.308 L ABG pO2 40.2 L ABG HCO3 15.7 L ABG O2 Saturation 68 L ABG Base Excess -9.6 L ABG Hemoglobin 9.7 L Oxyhemoglobin 67.8 L Sodium Potassium Chloride Carbon Dioxide BUN Creatinine Glucose POC Glucose 128 H 139 H Lactic Acid Calcium Phosphorus Magnesium Ferritin ALT Lactate Dehydrogenase Total Creatine Kinase C-Reactive Protein Total Protein Albumin Urine Blood Urine WBC (Auto) U Epithel Cells (Auto) Crossmatch 10/08/21 10/08/21 10/08/21 21:30 22:55 22:55 WBC RBC Hgb Hct MCH MCHC RDW Plt Count Lymph % (Auto) [place] % (Auto) Lymph # (Auto) [place] # (Auto) Seg Neutrophils % Seg Neuts % (Manual) Lymphocytes % (Manual) Monocytes % (Manual) Nucleated RBC % Seg Neutrophils # Seg Neutrophils # Man Lymphocytes # (Manual) Monocytes # (Manual) PT INR D-Dimer ABG pH ABG pO2 43.8 L ABG HCO3 19.5 L ABG O2 Saturation 70.7 L ABG Base Excess -5.3 L ABG Hemoglobin 8.6 L Oxyhemoglobin 69.4 L Sodium Potassium Chloride Carbon Dioxide BUN Creatinine Glucose POC Glucose Lactic Acid 2.50 H* Calcium Phosphorus Magnesium Ferritin ALT Lactate Dehydrogenase Total Creatine Kinase C-Reactive Protein Total Protein Albumin Urine Blood Urine WBC (Auto) U Epithel Cells (Auto) Crossmatch See Detail 10/09/21 10/09/21 10/09/21 03:12 05:31 05:31 WBC 20.3 H RBC 2.70 L Hgb 7.4 L Hct 23.1 L MCH 27 L MCHC RDW 16.6 H Plt Count 786 H Lymph % (Auto) [place] % (Auto) Lymph # (Auto) [place] # (Auto) Seg Neutrophils % Seg Neuts % (Manual) 88.0 H Lymphocytes % (Manual) 3.0 L Monocytes % (Manual) Nucleated RBC % Seg Neutrophils # Seg Neutrophils # Man 17.9 H Lymphocytes # (Manual) 0.6 L Monocytes # (Manual) 1.2 H PT INR D-Dimer ABG pH ABG pO2 ABG HCO3 ABG O2 Saturation ABG Base Excess ABG Hemoglobin Oxyhemoglobin Sodium 136 L Potassium Chloride Carbon Dioxide 20 L BUN 32 H Creatinine 1.5 H Glucose 214 H POC Glucose 190 H Lactic Acid Calcium 7.5 L Phosphorus Magnesium Ferritin ALT Lactate Dehydrogenase Total Creatine Kinase C-Reactive Protein Total Protein 5.8 L Albumin 2.3 L Urine Blood Urine WBC (Auto) U Epithel Cells (Auto) Crossmatch 10/09/21 10/09/21 10/09/21 05:31 05:31 05:31 WBC RBC Hgb Hct MCH MCHC RDW Plt Count Lymph % (Auto) [place] % (Auto) Lymph # (Auto) [place] # (Auto) Seg Neutrophils % Seg Neuts % (Manual) Lymphocytes % (Manual) Monocytes % (Manual) Nucleated RBC % Seg Neutrophils # Seg Neutrophils # Man Lymphocytes # (Manual) Monocytes # (Manual) PT INR D-Dimer ABG pH ABG pO2 ABG HCO3 ABG O2 Saturation ABG Base Excess ABG Hemoglobin Oxyhemoglobin Sodium Potassium Chloride Carbon Dioxide BUN Creatinine Glucose POC Glucose Lactic Acid 2.20 H* Calcium Phosphorus Magnesium Ferritin 751.9 H ALT Lactate Dehydrogenase Total Creatine Kinase C-Reactive Protein 15.90 H Total Protein Albumin Urine Blood Urine WBC (Auto) U Epithel Cells (Auto) Crossmatch 10/09/21 10/09/21 10/09/21 05:31 08:45 12:08 WBC RBC Hgb Hct MCH MCHC RDW Plt Count Lymph % (Auto) [place] % (Auto) Lymph # (Auto) [place] # (Auto) Seg Neutrophils % Seg Neuts % (Manual) Lymphocytes % (Manual) Monocytes % (Manual) Nucleated RBC % Seg Neutrophils # Seg Neutrophils # Man Lymphocytes # (Manual) Monocytes # (Manual) PT INR D-Dimer > [address] H ABG pH ABG pO2 54.3 L ABG HCO3 ABG O2 Saturation 86.6 L ABG Base Excess -2.6 L ABG Hemoglobin 7.2 L Oxyhemoglobin 85.3 L Sodium Potassium Chloride Carbon Dioxide BUN Creatinine Glucose POC Glucose Lactic Acid Calcium Phosphorus Magnesium Ferritin ALT Lactate Dehydrogenase 472 H Total Creatine Kinase C-Reactive Protein Total Protein Albumin Urine Blood Urine WBC (Auto) U Epithel Cells (Auto) Crossmatch 10/09/21 10/09/21 10/10/21 12:19 17:43 00:30 WBC RBC Hgb Hct MCH MCHC RDW Plt Count Lymph % (Auto) [place] % (Auto) Lymph # (Auto) [place] # (Auto) Seg Neutrophils % Seg Neuts % (Manual) Lymphocytes % (Manual) Monocytes % (Manual) Nucleated RBC % Seg Neutrophils # Seg Neutrophils # Man Lymphocytes # (Manual) Monocytes # (Manual) PT INR D-Dimer ABG pH ABG pO2 ABG HCO3 ABG O2 Saturation ABG Base Excess ABG Hemoglobin Oxyhemoglobin Sodium Potassium Chloride Carbon Dioxide BUN Creatinine Glucose POC Glucose 151 H 136 H 132 H Lactic Acid Calcium Phosphorus Magnesium Ferritin ALT Lactate Dehydrogenase Total Creatine Kinase C-Reactive Protein Total Protein Albumin Urine Blood Urine WBC (Auto) U Epithel Cells (Auto) Crossmatch 10/10/21 10/10/21 10/10/21 04:10 04:10 05:41 WBC 20.8 H RBC 2.54 L Hgb 7.1 L Hct 21.8 L MCH MCHC RDW 16.6 H Plt Count 740 H Lymph % (Auto) [place] % (Auto) Lymph # (Auto) [place] # (Auto) Seg Neutrophils % Seg Neuts % (Manual) Lymphocytes % (Manual) Monocytes % (Manual) Nucleated RBC % Seg Neutrophils # Seg Neutrophils # Man Lymphocytes # (Manual) Monocytes # (Manual) PT INR D-Dimer ABG pH ABG pO2 ABG HCO3 ABG O2 Saturation ABG Base Excess ABG Hemoglobin Oxyhemoglobin Sodium 130 L Potassium Chloride 97.9 L Carbon Dioxide 19 L BUN 37 H Creatinine 1.4 H Glucose 181 H POC Glucose 150 H Lactic Acid Calcium 7.8 L Phosphorus Magnesium Ferritin ALT Lactate Dehydrogenase Total Creatine Kinase C-Reactive Protein Total Protein Albumin Urine Blood Urine WBC (Auto) U Epithel Cells (Auto) Crossmatch 10/10/21 10/10/21 10/10/21 11:10 16:00 23:50 WBC RBC Hgb Hct MCH MCHC RDW Plt Count Lymph % (Auto) [place] % (Auto) Lymph # (Auto) [place] # (Auto) Seg Neutrophils % Seg Neuts % (Manual) Lymphocytes % (Manual) Monocytes % (Manual) Nucleated RBC % Seg Neutrophils # Seg Neutrophils # Man Lymphocytes # (Manual) Monocytes # (Manual) PT INR D-Dimer ABG pH ABG pO2 ABG HCO3 ABG O2 Saturation ABG Base Excess ABG Hemoglobin Oxyhemoglobin Sodium Potassium Chloride Carbon Dioxide BUN Creatinine Glucose POC Glucose 136 H 151 H 129 H Lactic Acid Calcium Phosphorus Magnesium Ferritin ALT Lactate Dehydrogenase Total Creatine Kinase C-Reactive Protein Total Protein Albumin Urine Blood Urine WBC (Auto) U Epithel Cells (Auto) Crossmatch 10/10/21 10/11/21 10/11/21 Unknown 03:30 03:30 WBC 23.2 H RBC 2.39 L Hgb 6.7 L Hct 20.3 L MCH MCHC RDW 16.7 H Plt Count 701 H Lymph % (Auto) [place] % (Auto) Lymph # (Auto) [place] # (Auto) Seg Neutrophils % Seg Neuts % (Manual) Lymphocytes % (Manual) Monocytes % (Manual) Nucleated RBC % Seg Neutrophils # Seg Neutrophils # Man Lymphocytes # (Manual) Monocytes # (Manual) PT INR D-Dimer ABG pH 7.505 H ABG pO2 246.1 H ABG HCO3 ABG O2 Saturation 99.4 H ABG Base Excess ABG Hemoglobin 6.0 L Oxyhemoglobin Sodium 135 L Potassium Chloride Carbon Dioxide 20 L BUN 38 H Creatinine 1.6 H Glucose 118 H POC Glucose Lactic Acid Calcium 7.9 L Phosphorus Magnesium Ferritin ALT Lactate Dehydrogenase Total Creatine Kinase C-Reactive Protein Total Protein Albumin Urine Blood Urine WBC (Auto) U Epithel Cells (Auto) Crossmatch 10/11/21 10/11/21 10/12/21 11:41 17:51 00:18 WBC RBC Hgb Hct MCH MCHC RDW Plt Count Lymph % (Auto) [place] % (Auto) Lymph # (Auto) [place] # (Auto) Seg Neutrophils % Seg Neuts % (Manual) Lymphocytes % (Manual) Monocytes % (Manual) Nucleated RBC % Seg Neutrophils # Seg Neutrophils # Man Lymphocytes # (Manual) Monocytes # (Manual) PT INR D-Dimer ABG pH ABG pO2 ABG HCO3 ABG O2 Saturation ABG Base Excess ABG Hemoglobin Oxyhemoglobin Sodium Potassium Chloride Carbon Dioxide BUN Creatinine Glucose POC Glucose 128 H 138 H 174 H Lactic Acid Calcium Phosphorus Magnesium Ferritin ALT Lactate Dehydrogenase Total Creatine Kinase C-Reactive Protein Total Protein Albumin Urine Blood Urine WBC (Auto) U Epithel Cells (Auto) Crossmatch 10/12/21 10/12/21 10/12/21 05:39 06:02 06:02 WBC 19.1 H RBC 3.56 L Hgb 10.0 L D Hct MCH MCHC RDW 17.0 H Plt Count 712 H Lymph % (Auto) [place] % (Auto) Lymph # (Auto) [place] # (Auto) Seg Neutrophils % Seg Neuts % (Manual) Lymphocytes % (Manual) Monocytes % (Manual) Nucleated RBC % Seg Neutrophils # Seg Neutrophils # Man Lymphocytes # (Manual) Monocytes # (Manual) PT INR D-Dimer ABG pH ABG pO2 ABG HCO3 ABG O2 Saturation ABG Base Excess ABG Hemoglobin Oxyhemoglobin Sodium Potassium Chloride Carbon Dioxide BUN 37 H Creatinine 1.5 H Glucose 172 H POC Glucose 158 H Lactic Acid Calcium 8.1 L Phosphorus Magnesium Ferritin ALT Lactate Dehydrogenase Total Creatine Kinase C-Reactive Protein Total Protein Albumin Urine Blood Urine WBC (Auto) U Epithel Cells (Auto) Crossmatch 10/12/21 10/12/21 10/12/21 06:02 06:05 17:43 WBC RBC Hgb Hct MCH MCHC RDW Plt Count Lymph % (Auto) [place] % (Auto) Lymph # (Auto) [place] # (Auto) Seg Neutrophils % Seg Neuts % (Manual) Lymphocytes % (Manual) Monocytes % (Manual) Nucleated RBC % Seg Neutrophils # Seg Neutrophils # Man Lymphocytes # (Manual) Monocytes # (Manual) PT 17.1 H INR 1.24 H D-Dimer ABG pH ABG pO2 ABG HCO3 ABG O2 Saturation ABG Base Excess ABG Hemoglobin Oxyhemoglobin Sodium Potassium Chloride Carbon Dioxide BUN Creatinine Glucose POC Glucose 173 H Lactic Acid Calcium Phosphorus Magnesium Ferritin ALT Lactate Dehydrogenase Total Creatine Kinase C-Reactive Protein Total Protein Albumin Urine Blood Urine WBC (Auto) U Epithel Cells (Auto) Crossmatch See Detail 10/12/21 10/12/21 10/13/21 23:28 Unknown 04:05 WBC RBC Hgb 10.0 L Hct MCH MCHC RDW Plt Count Lymph % (Auto) [place] % (Auto) Lymph # (Auto) [place] # (Auto) Seg Neutrophils % Seg Neuts % (Manual) Lymphocytes % (Manual) Monocytes % (Manual) Nucleated RBC % Seg Neutrophils # Seg Neutrophils # Man Lymphocytes # (Manual) Monocytes # (Manual) PT INR D-Dimer ABG pH ABG pO2 ABG HCO3 ABG O2 Saturation ABG Base Excess ABG Hemoglobin Oxyhemoglobin Sodium Potassium Chloride Carbon Dioxide BUN 34 H Creatinine Glucose 200 H POC Glucose 178 H Lactic Acid Calcium 7.5 L Phosphorus Magnesium 1.60 L Ferritin ALT Lactate Dehydrogenase Total Creatine Kinase C-Reactive Protein Total Protein Albumin Urine Blood Urine WBC (Auto) U Epithel Cells (Auto) Crossmatch 10/13/21 10/13/21 10/13/21 05:09 10:55 13:34 WBC 23.8 H RBC 3.14 L Hgb 9.2 L Hct 27.7 L MCH MCHC RDW 17.5 H Plt Count 572 H Lymph % (Auto) [place] % (Auto) Lymph # (Auto) [place] # (Auto) Seg Neutrophils % Seg Neuts % (Manual) Lymphocytes % (Manual) Monocytes % (Manual) Nucleated RBC % Seg Neutrophils # Seg Neutrophils # Man Lymphocytes # (Manual) Monocytes # (Manual) PT INR D-Dimer ABG pH ABG pO2 ABG HCO3 ABG O2 Saturation ABG Base Excess ABG Hemoglobin Oxyhemoglobin Sodium Potassium Chloride Carbon Dioxide BUN Creatinine Glucose POC Glucose 210 H 168 H Lactic Acid Calcium Phosphorus Magnesium Ferritin ALT Lactate Dehydrogenase Total Creatine Kinase C-Reactive Protein Total Protein Albumin Urine Blood Urine WBC (Auto) U Epithel Cells (Auto) Crossmatch 10/13/21 10/13/21 10/14/21 15:35 23:10 04:05 WBC 19.4 H RBC 2.98 L Hgb 8.4 L Hct 26.3 L MCH MCHC RDW 17.1 H Plt Count 561 H Lymph % (Auto) [place] % (Auto) Lymph # (Auto) [place] # (Auto) Seg Neutrophils % Seg Neuts % (Manual) Lymphocytes % (Manual) Monocytes % (Manual) Nucleated RBC % Seg Neutrophils # Seg Neutrophils # Man Lymphocytes # (Manual) Monocytes # (Manual) PT INR D-Dimer ABG pH ABG pO2 ABG HCO3 ABG O2 Saturation ABG Base Excess ABG Hemoglobin Oxyhemoglobin Sodium Potassium Chloride Carbon Dioxide BUN Creatinine Glucose POC Glucose 154 H 135 H Lactic Acid Calcium Phosphorus Magnesium Ferritin ALT Lactate Dehydrogenase Total Creatine Kinase C-Reactive Protein Total Protein Albumin Urine Blood Urine WBC (Auto) U Epithel Cells (Auto) Crossmatch 10/14/21 10/14/21 10/14/21 04:05 04:05 05:08 WBC RBC Hgb Hct MCH MCHC RDW Plt Count Lymph % (Auto) [place] % (Auto) Lymph # (Auto) [place] # (Auto) Seg Neutrophils % Seg Neuts % (Manual) Lymphocytes % (Manual) Monocytes % (Manual) Nucleated RBC % Seg Neutrophils # Seg Neutrophils # Man Lymphocytes # (Manual) Monocytes # (Manual) PT 19.0 H INR 1.41 H D-Dimer ABG pH ABG pO2 ABG HCO3 ABG O2 Saturation ABG Base Excess ABG Hemoglobin Oxyhemoglobin Sodium Potassium Chloride Carbon Dioxide BUN 33 H Creatinine Glucose 310 H POC Glucose 178 H Lactic Acid Calcium 7.4 L Phosphorus Magnesium Ferritin ALT Lactate Dehydrogenase Total Creatine Kinase C-Reactive Protein Total Protein Albumin Urine Blood Urine WBC (Auto) U Epithel Cells (Auto) Crossmatch 10/14/21 10/14/21 10/14/21 09:29 10:45 11:40 WBC RBC Hgb Hct MCH MCHC RDW Plt Count Lymph % (Auto) [place] % (Auto) Lymph # (Auto) [place] # (Auto) Seg Neutrophils % Seg Neuts % (Manual) Lymphocytes % (Manual) Monocytes % (Manual) Nucleated RBC % Seg Neutrophils # Seg Neutrophils # Man Lymphocytes # (Manual) Monocytes # (Manual) PT INR D-Dimer ABG pH 7.342 L ABG pO2 96.0 H ABG HCO3 26.2 H ABG O2 Saturation ABG Base Excess ABG Hemoglobin 6.1 L Oxyhemoglobin 94.9 L Sodium Potassium Chloride Carbon Dioxide BUN Creatinine Glucose POC Glucose 155 H 137 H Lactic Acid Calcium Phosphorus Magnesium Ferritin ALT Lactate Dehydrogenase Total Creatine Kinase C-Reactive Protein Total Protein Albumin Urine Blood Urine WBC (Auto) U Epithel Cells (Auto) Crossmatch 10/14/21 10/14/21 10/14/21 15:40 21:21 23:46 WBC RBC Hgb Hct MCH MCHC RDW Plt Count Lymph % (Auto) [place] % (Auto) Lymph # (Auto) [place] # (Auto) Seg Neutrophils % Seg Neuts % (Manual) Lymphocytes % (Manual) Monocytes % (Manual) Nucleated RBC % Seg Neutrophils # Seg Neutrophils # Man Lymphocytes # (Manual) Monocytes # (Manual) PT INR D-Dimer ABG pH ABG pO2 ABG HCO3 ABG O2 Saturation ABG Base Excess ABG Hemoglobin Oxyhemoglobin Sodium Potassium Chloride Carbon Dioxide BUN Creatinine Glucose POC Glucose 140 H 111 H 164 H Lactic Acid Calcium Phosphorus Magnesium Ferritin ALT Lactate Dehydrogenase Total Creatine Kinase C-Reactive Protein Total Protein Albumin Urine Blood Urine WBC (Auto) U Epithel Cells (Auto) Crossmatch 10/15/21 10/15/21 10/15/21 05:06 05:40 05:40 WBC 22.7 H RBC 2.94 L Hgb 8.7 L Hct 25.8 L MCH MCHC RDW 17.2 H Plt Count 620 H Lymph % (Auto) [place] % (Auto) Lymph # (Auto) [place] # (Auto) Seg Neutrophils % Seg Neuts % (Manual) Lymphocytes % (Manual) Monocytes % (Manual) Nucleated RBC % Seg Neutrophils # Seg Neutrophils # Man Lymphocytes # (Manual) Monocytes # (Manual) PT INR D-Dimer ABG pH ABG pO2 ABG HCO3 ABG O2 Saturation ABG Base Excess ABG Hemoglobin Oxyhemoglobin Sodium Potassium Chloride Carbon Dioxide BUN 30 H Creatinine Glucose 175 H POC Glucose 155 H Lactic Acid Calcium 7.4 L Phosphorus Magnesium Ferritin ALT Lactate Dehydrogenase Total Creatine Kinase C-Reactive Protein Total Protein Albumin Urine Blood Urine WBC (Auto) U Epithel Cells (Auto) Crossmatch 10/15/21 10/15/21 10/15/21 11:32 17:23 23:35 WBC RBC Hgb Hct MCH MCHC RDW Plt Count Lymph % (Auto) [place] % (Auto) Lymph # (Auto) [place] # (Auto) Seg Neutrophils % Seg Neuts % (Manual) Lymphocytes % (Manual) Monocytes % (Manual) Nucleated RBC % Seg Neutrophils # Seg Neutrophils # Man Lymphocytes # (Manual) Monocytes # (Manual) PT INR D-Dimer ABG pH ABG pO2 ABG HCO3 ABG O2 Saturation ABG Base Excess ABG Hemoglobin Oxyhemoglobin Sodium Potassium Chloride Carbon Dioxide BUN Creatinine Glucose POC Glucose 157 H 136 H 143 H Lactic Acid Calcium Phosphorus Magnesium Ferritin ALT Lactate Dehydrogenase Total Creatine Kinase C-Reactive Protein Total Protein Albumin Urine Blood Urine WBC (Auto) U Epithel Cells (Auto) Crossmatch 10/16/21 10/16/21 10/16/21 04:00 04:00 05:08 WBC 18.0 H RBC 2.80 L Hgb 8.0 L Hct 24.7 L MCH MCHC RDW 17.4 H Plt Count 543 H Lymph % (Auto) [place] % (Auto) Lymph # (Auto) [place] # (Auto) Seg Neutrophils % Seg Neuts % (Manual) Lymphocytes % (Manual) Monocytes % (Manual) Nucleated RBC % Seg Neutrophils # Seg Neutrophils # Man Lymphocytes # (Manual) Monocytes # (Manual) PT INR D-Dimer ABG pH ABG pO2 ABG HCO3 ABG O2 Saturation ABG Base Excess ABG Hemoglobin Oxyhemoglobin Sodium Potassium Chloride Carbon Dioxide BUN 31 H Creatinine Glucose 153 H POC Glucose 149 H Lactic Acid Calcium 8.0 L Phosphorus Magnesium Ferritin ALT Lactate Dehydrogenase Total Creatine Kinase C-Reactive Protein Total Protein 5.5 L Albumin 1.9 L Urine Blood Urine WBC (Auto) U Epithel Cells (Auto) Crossmatch 10/16/21 10/16/21 10/16/21 11:45 17:37 23:48 WBC RBC Hgb Hct MCH MCHC RDW Plt Count Lymph % (Auto) [place] % (Auto) Lymph # (Auto) [place] # (Auto) Seg Neutrophils % Seg Neuts % (Manual) Lymphocytes % (Manual) Monocytes % (Manual) Nucleated RBC % Seg Neutrophils # Seg Neutrophils # Man Lymphocytes # (Manual) Monocytes # (Manual) PT INR D-Dimer ABG pH ABG pO2 ABG HCO3 ABG O2 Saturation ABG Base Excess ABG Hemoglobin Oxyhemoglobin Sodium Potassium Chloride Carbon Dioxide BUN Creatinine Glucose POC Glucose 144 H 130 H 134 H Lactic Acid Calcium Phosphorus Magnesium Ferritin ALT Lactate Dehydrogenase Total Creatine Kinase C-Reactive Protein Total Protein Albumin Urine Blood Urine WBC (Auto) U Epithel Cells (Auto) Crossmatch 10/17/21 10/17/21 10/17/21 04:00 04:00 05:37 WBC 14.0 H RBC 2.46 L Hgb 7.2 L Hct 21.7 L MCH MCHC RDW 17.4 H Plt Count 526 H Lymph % (Auto) [place] % (Auto) Lymph # (Auto) [place] # (Auto) Seg Neutrophils % Seg Neuts % (Manual) Lymphocytes % (Manual) Monocytes % (Manual) Nucleated RBC % Seg Neutrophils # Seg Neutrophils # Man Lymphocytes # (Manual) Monocytes # (Manual) PT INR D-Dimer ABG pH ABG pO2 ABG HCO3 ABG O2 Saturation ABG Base Excess ABG Hemoglobin Oxyhemoglobin Sodium Potassium Chloride Carbon Dioxide BUN 29 H Creatinine Glucose 138 H POC Glucose 137 H Lactic Acid Calcium 7.5 L Phosphorus Magnesium Ferritin ALT Lactate Dehydrogenase Total Creatine Kinase C-Reactive Protein Total Protein Albumin Urine Blood Urine WBC (Auto) U Epithel Cells (Auto) Crossmatch 10/17/21 10/17/21 10/17/21 11:45 12:50 16:13 WBC RBC Hgb Hct MCH MCHC RDW Plt Count Lymph % (Auto) [place] % (Auto) Lymph # (Auto) [place] # (Auto) Seg Neutrophils % Seg Neuts % (Manual) Lymphocytes % (Manual) Monocytes % (Manual) Nucleated RBC % Seg Neutrophils # Seg Neutrophils # Man Lymphocytes # (Manual) Monocytes # (Manual) PT INR D-Dimer ABG pH ABG pO2 ABG HCO3 ABG O2 Saturation ABG Base Excess ABG Hemoglobin Oxyhemoglobin Sodium Potassium Chloride Carbon Dioxide BUN Creatinine Glucose POC Glucose 145 H 128 H Lactic Acid Calcium Phosphorus Magnesium Ferritin ALT Lactate Dehydrogenase Total Creatine Kinase C-Reactive Protein Total Protein Albumin Urine Blood Urine WBC (Auto) U Epithel Cells (Auto) Crossmatch See Detail 10/17/21 10/18/21 10/18/21 23:46 04:28 04:28 WBC 16.6 H RBC 2.81 L Hgb 8.4 L Hct 24.4 L MCH MCHC RDW 16.8 H Plt Count 516 H Lymph % (Auto) [place] % (Auto) Lymph # (Auto) [place] # (Auto) Seg Neutrophils % Seg Neuts % (Manual) Lymphocytes % (Manual) Monocytes % (Manual) Nucleated RBC % Seg Neutrophils # Seg Neutrophils # Man Lymphocytes # (Manual) Monocytes # (Manual) PT INR D-Dimer ABG pH ABG pO2 ABG HCO3 ABG O2 Saturation ABG Base Excess ABG Hemoglobin Oxyhemoglobin Sodium Potassium Chloride Carbon Dioxide BUN 26 H Creatinine Glucose 144 H POC Glucose 124 H Lactic Acid Calcium 7.5 L Phosphorus Magnesium Ferritin ALT 6 L Lactate Dehydrogenase Total Creatine Kinase C-Reactive Protein Total Protein 6.1 L Albumin 2.0 L Urine Blood Urine WBC (Auto) U Epithel Cells (Auto) Crossmatch 10/18/21 10/18/21 10/18/21 05:19 11:34 11:40 WBC RBC Hgb Hct MCH MCHC RDW Plt Count Lymph % (Auto) [place] % (Auto) Lymph # (Auto) [place] # (Auto) Seg Neutrophils % Seg Neuts % (Manual) Lymphocytes % (Manual) Monocytes % (Manual) Nucleated RBC % Seg Neutrophils # Seg Neutrophils # Man Lymphocytes # (Manual) Monocytes # (Manual) PT INR D-Dimer ABG pH 7.466 H ABG pO2 90.6 H ABG HCO3 29.0 H ABG O2 Saturation ABG Base Excess 4.9 H ABG Hemoglobin 8.6 L Oxyhemoglobin Sodium Potassium Chloride Carbon Dioxide BUN Creatinine Glucose POC Glucose 128 H Lactic Acid Calcium Phosphorus Magnesium Ferritin ALT Lactate Dehydrogenase Total Creatine Kinase C-Reactive Protein Total Protein Albumin Urine Blood Moderate A Urine WBC (Auto) 50.0 H U Epithel Cells (Auto) Crossmatch 10/18/21 10/18/21 10/19/21 12:20 16:18 01:28 WBC RBC Hgb Hct MCH MCHC RDW Plt Count Lymph % (Auto) [place] % (Auto) Lymph # (Auto) [place] # (Auto) Seg Neutrophils % Seg Neuts % (Manual) Lymphocytes % (Manual) Monocytes % (Manual) Nucleated RBC % Seg Neutrophils # Seg Neutrophils # Man Lymphocytes # (Manual) Monocytes # (Manual) PT INR D-Dimer ABG pH ABG pO2 ABG HCO3 ABG O2 Saturation ABG Base Excess ABG Hemoglobin Oxyhemoglobin Sodium Potassium Chloride Carbon Dioxide BUN Creatinine Glucose POC Glucose 151 H 139 H 126 H Lactic Acid Calcium Phosphorus Magnesium Ferritin ALT Lactate Dehydrogenase Total Creatine Kinase C-Reactive Protein Total Protein Albumin Urine Blood Urine WBC (Auto) U Epithel Cells (Auto) Crossmatch 10/19/21 10/19/21 10/19/21 04:23 04:23 04:23 WBC 16.0 H RBC 3.04 L Hgb 8.7 L Hct 26.3 L MCH MCHC RDW 16.9 H Plt Count 500 H Lymph % (Auto) [place] % (Auto) Lymph # (Auto) [place] # (Auto) Seg Neutrophils % Seg Neuts % (Manual) Lymphocytes % (Manual) Monocytes % (Manual) Nucleated RBC % Seg Neutrophils # Seg Neutrophils # Man Lymphocytes # (Manual) Monocytes # (Manual) PT INR D-Dimer ABG pH ABG pO2 ABG HCO3 ABG O2 Saturation ABG Base Excess ABG Hemoglobin Oxyhemoglobin Sodium Potassium Chloride Carbon Dioxide BUN 20 H Creatinine Glucose 138 H POC Glucose Lactic Acid Calcium 7.8 L Phosphorus 1.80 L D Magnesium 1.60 L Ferritin ALT Lactate Dehydrogenase Total Creatine Kinase C-Reactive Protein Total Protein Albumin Urine Blood Urine WBC (Auto) U Epithel Cells (Auto) Crossmatch 10/19/21 10/19/21 10/19/21 14:11 18:05 21:42 WBC RBC Hgb Hct MCH MCHC RDW Plt Count Lymph % (Auto) [place] % (Auto) Lymph # (Auto) [place] # (Auto) Seg Neutrophils % Seg Neuts % (Manual) Lymphocytes % (Manual) Monocytes % (Manual) Nucleated RBC % Seg Neutrophils # Seg Neutrophils # Man Lymphocytes # (Manual) Monocytes # (Manual) PT INR D-Dimer ABG pH ABG pO2 ABG HCO3 ABG O2 Saturation ABG Base Excess ABG Hemoglobin Oxyhemoglobin Sodium Potassium Chloride Carbon Dioxide BUN Creatinine Glucose POC Glucose 161 H 162 H 112 H Lactic Acid Calcium Phosphorus Magnesium Ferritin ALT Lactate Dehydrogenase Total Creatine Kinase C-Reactive Protein Total Protein Albumin Urine Blood Urine WBC (Auto) U Epithel Cells (Auto) Crossmatch 10/20/21 10/20/21 10/20/21 00:01 05:39 11:41 WBC 20.2 H RBC 2.81 L Hgb 8.5 L Hct 24.3 L MCH MCHC 35 H RDW 16.8 H Plt Count 481 H Lymph % (Auto) [place] % (Auto) Lymph # (Auto) [place] # (Auto) Seg Neutrophils % Seg Neuts % (Manual) Lymphocytes % (Manual) Monocytes % (Manual) Nucleated RBC % Seg Neutrophils # Seg Neutrophils # Man Lymphocytes # (Manual) Monocytes # (Manual) PT INR D-Dimer ABG pH ABG pO2 ABG HCO3 ABG O2 Saturation ABG Base Excess ABG Hemoglobin Oxyhemoglobin Sodium Potassium Chloride Carbon Dioxide BUN Creatinine Glucose POC Glucose 152 H 117 H Lactic Acid Calcium Phosphorus Magnesium Ferritin ALT Lactate Dehydrogenase Total Creatine Kinase C-Reactive Protein Total Protein Albumin Urine Blood Urine WBC (Auto) U Epithel Cells (Auto) Crossmatch 10/20/21 10/20/21 10/20/21 11:41 11:50 17:31 WBC RBC Hgb Hct MCH MCHC RDW Plt Count Lymph % (Auto) [place] % (Auto) Lymph # (Auto) [place] # (Auto) Seg Neutrophils % Seg Neuts % (Manual) Lymphocytes % (Manual) Monocytes % (Manual) Nucleated RBC % Seg Neutrophils # Seg Neutrophils # Man Lymphocytes # (Manual) Monocytes # (Manual) PT INR D-Dimer ABG pH ABG pO2 ABG HCO3 ABG O2 Saturation ABG Base Excess ABG Hemoglobin Oxyhemoglobin Sodium Potassium Chloride Carbon Dioxide BUN 20 H Creatinine Glucose 123 H POC Glucose 120 H 125 H Lactic Acid Calcium 7.7 L Phosphorus 2.00 L Magnesium Ferritin ALT Lactate Dehydrogenase Total Creatine Kinase C-Reactive Protein Total Protein Albumin Urine Blood Urine WBC (Auto) U Epithel Cells (Auto) Crossmatch 10/20/21 10/21/21 10/21/21 23:25 04:30 04:30 WBC 23.2 H RBC 2.70 L Hgb 7.9 L Hct 23.2 L MCH MCHC RDW 17.2 H Plt Count Lymph % (Auto) [place] % (Auto) Lymph # (Auto) [place] # (Auto) Seg Neutrophils % Seg Neuts % (Manual) Lymphocytes % (Manual) Monocytes % (Manual) Nucleated RBC % Seg Neutrophils # Seg Neutrophils # Man Lymphocytes # (Manual) Monocytes # (Manual) PT INR D-Dimer ABG pH ABG pO2 ABG HCO3 ABG O2 Saturation ABG Base Excess ABG Hemoglobin Oxyhemoglobin Sodium Potassium Chloride Carbon Dioxide BUN 22 H Creatinine Glucose 117 H POC Glucose 119 H Lactic Acid Calcium 7.7 L Phosphorus Magnesium Ferritin ALT Lactate Dehydrogenase Total Creatine Kinase C-Reactive Protein Total Protein Albumin Urine Blood Urine WBC (Auto) U Epithel Cells (Auto) Crossmatch 10/21/21 10/21/21 10/21/21 05:26 09:05 11:27 WBC RBC Hgb Hct MCH MCHC RDW Plt Count Lymph % (Auto) [place] % (Auto) Lymph # (Auto) [place] # (Auto) Seg Neutrophils % Seg Neuts % (Manual) Lymphocytes % (Manual) Monocytes % (Manual) Nucleated RBC % Seg Neutrophils # Seg Neutrophils # Man Lymphocytes # (Manual) Monocytes # (Manual) PT INR D-Dimer ABG pH 7.509 H ABG pO2 60.3 L ABG HCO3 26.2 H ABG O2 Saturation ABG Base Excess ABG Hemoglobin 6.7 L Oxyhemoglobin Sodium Potassium Chloride Carbon Dioxide BUN Creatinine Glucose POC Glucose 111 H 114 H Lactic Acid Calcium Phosphorus Magnesium Ferritin ALT Lactate Dehydrogenase Total Creatine Kinase C-Reactive Protein Total Protein Albumin Urine Blood Urine WBC (Auto) U Epithel Cells (Auto) Crossmatch 10/21/21 10/21/21 10/22/21 16:45 23:13 05:25 WBC 21.7 H RBC 2.55 L Hgb 7.5 L Hct 22.3 L MCH MCHC RDW 16.8 H Plt Count Lymph % (Auto) [place] % (Auto) Lymph # (Auto) [place] # (Auto) Seg Neutrophils % Seg Neuts % (Manual) 86.0 H Lymphocytes % (Manual) 7.0 L Monocytes % (Manual) Nucleated RBC % Seg Neutrophils # Seg Neutrophils # Man 18.7 H Lymphocytes # (Manual) Monocytes # (Manual) 1.5 H PT INR D-Dimer ABG pH ABG pO2 ABG HCO3 ABG O2 Saturation ABG Base Excess ABG Hemoglobin Oxyhemoglobin Sodium Potassium Chloride Carbon Dioxide BUN Creatinine Glucose POC Glucose 117 H 125 H Lactic Acid Calcium Phosphorus Magnesium Ferritin ALT Lactate Dehydrogenase Total Creatine Kinase C-Reactive Protein Total Protein Albumin Urine Blood Urine WBC (Auto) U Epithel Cells (Auto) Crossmatch 10/22/21 10/22/21 10/22/21 09:02 09:02 11:07 WBC 17.2 H RBC 2.51 L Hgb 7.1 L Hct 21.9 L MCH MCHC RDW 17.2 H Plt Count Lymph % (Auto) 4.7 L [place] % (Auto) 10.2 H Lymph # (Auto) 0.8 L [place] # (Auto) 1.8 H Seg Neutrophils % 84.5 H Seg Neuts % (Manual) Lymphocytes % (Manual) Monocytes % (Manual) Nucleated RBC % Seg Neutrophils # 14.5 H Seg Neutrophils # Man Lymphocytes # (Manual) Monocytes # (Manual) PT INR D-Dimer ABG pH ABG pO2 ABG HCO3 ABG O2 Saturation ABG Base Excess ABG Hemoglobin Oxyhemoglobin Sodium 134 L Potassium Chloride Carbon Dioxide BUN 23 H Creatinine Glucose 117 H POC Glucose 115 H Lactic Acid Calcium 8.1 L Phosphorus Magnesium Ferritin ALT Lactate Dehydrogenase Total Creatine Kinase C-Reactive Protein Total Protein Albumin Urine Blood Urine WBC (Auto) U Epithel Cells (Auto) Crossmatch 10/22/21 Unknown WBC RBC Hgb Hct MCH MCHC RDW Plt Count Lymph % (Auto) [place] % (Auto) Lymph # (Auto) [place] # (Auto) Seg Neutrophils % Seg Neuts % (Manual) Lymphocytes % (Manual) Monocytes % (Manual) Nucleated RBC % Seg Neutrophils # Seg Neutrophils # Man Lymphocytes # (Manual) Monocytes # (Manual) PT INR D-Dimer ABG pH ABG pO2 ABG HCO3 ABG O2 Saturation ABG Base Excess ABG Hemoglobin Oxyhemoglobin Sodium 135 L Potassium Chloride Carbon Dioxide BUN 23 H Creatinine Glucose 112 H POC Glucose Lactic Acid Calcium 8.2 L Phosphorus Magnesium Ferritin ALT Lactate Dehydrogenase Total Creatine Kinase C-Reactive Protein Total Protein Albumin Urine Blood Urine WBC (Auto) U Epithel Cells (Auto) Crossmatch Chest x-ray: image reviewed Allied health notes reviewed: RT
--- NOTE | 2021-10-22 15:24 | Cat Scan Report ---
CTA CHEST WITH IV CONTRAST INDICATION: Acute onset chest pain with dyspnea- Multiple Surgeries x 2 drains OMNI 350 100ml. TECHNIQUE: Axial CT images were obtained through the chest after injection of 100 mL Omnipaque 350 IV contrast. 3 plane MIP reconstructions were produced. All CT scans at this location are performed using CT dose reduction for ALARA by means of automated exposure control. COMPARISON: None available. FINDINGS: PULMONARY ARTERIES: No pulmonary emboli. AORTA AND ARTERIES: No acute abnormality. MEDIASTINUM: The heart is mildly enlarged and there is a small pericardial effusion. LUNGS: Small olayinka ateral pleural effusions, left greater than right. There is patchy bibasilar consolidation. Probably atelectasis related.. IMPRESSION: 1. No CT evidence for pulmonary embolism. 2. Anasarca with small pleural effusions and tiny pericardial effusion, as above. Signer Name: Dominic Frank MD Signed: 10/22/2021 3:20 PM Workstation Name: [id number]
--- NOTE | 2021-10-22 15:35 | Cat Scan Report ---
CT ABDOMEN AND PELVIS WITHOUT CONTRAST INDICATION / CLINICAL INFORMATION: Abdominal pain TECHNIQUE: Axial CT images were obtained through the abdomen and pelvis without IV contrast. All CT scans at [facility] location are performed using CT dose reduction for ALARA by means of automated exposure control. COMPARISON: 10/11/2021 FINDINGS: Abdomen and pelvis: When compared to 10/11/2021, multiple external drains have been placed along the left flank in the righ t lower pelvis. The previous fluid collection/cavity along the left mid abdomen has moderately decrea sed in the interim. No new collection is identified. There is a left lower quadrant diverting colosto my. The liver is enlarged. The pancreas adrenal glands and kidneys appear unchanged. No hydronephrosis. Moderate diffuse anasarca. Review of bone windows demonstrates mild thoracolumbar degenerative changes. IMPRESSION: Status post placement of left lower quadrant diverting colostomy with multiple intra-abdo li drains. Previously identified multiloculated collection along the left mid abdomen have all dec reased in size when compared to 10/11/2021 without new areas of contained fluid collection. Persistent diffuse anasarca persists. Signer Name: Dominic Frank MD Signed: 10/22/2021 3:28 PM Workstation Name: [id number]
[2021-10-22] MEDS: LORazepam 2 MG/ML VIAL IV PRN (20:06)
[2021-10-22] MEDS: TOTAL PARENTERAL NUTRITION 1,999.92 ML IV SCH (20:10)
[2021-10-22] MEDS: diphenhydrAMINE 50 MG/ML VIAL IV PRN (23:56)
[2021-10-23] MEDS: HEPARIN 5,000 UNIT/1 ML VIAL SUB-Q SCH ×3 (00:05→22:01)
[2021-10-23 05:22] LABS: Hematocrit 21.4 % (30.3-42.9); Hemoglobin 7.1 gm/dl (10.1-14.3); Mean Corpuscular HGB Conc 33 % (30-34); Mean Corpuscular Volume 87 fl (79-97); Platelet Count 428 K/mm3 (140-440); Red Blood Count 2.46 M/mm3 (3.65-5.03); Red Cell Distribution Width 16.9 % (13.2-15.2)
[2021-10-23 05:28] LABS: BUN/Creatinine Ratio 28; Blood Urea Nitrogen 25 mg/dL (7-17); Calcium 8.3 mg/dL (8.4-10.2); Hemolysis Index 0
[2021-10-23] MEDS: SMX IV SCH ×4 (06:27→23:26)
[2021-10-23] MEDS: TMP IV SCH ×4 (06:27→23:26)
[2021-10-23] MEDS: WATER IV SCH ×4 (06:27→23:26)
[2021-10-23] MEDS: DEXTROSE 5% IV SCH ×4 (06:27→23:26)
[2021-10-23] MEDS: NYSTATIN POWDER 15 GM TP SCH ×3 (06:29→22:01)
[2021-10-23] MEDS: INSULIN REGULAR, HUMAN 100 UNITS/1 ML SUB-Q SCH ×3 (06:30→18:08)
[2021-10-23] MEDS: PANTOPRAZOLE 40 MG INJ IV SCH (09:02)
[2021-10-23] MEDS: INSULIN GLARGINE 100 UNITS/ML SUB-Q SCH (09:02)
[2021-10-23] MEDS: FLUCONAZOLE 400 MG 200 ML IV SCH (09:03)
--- NOTE | 2021-10-23 11:01 | Progress Note ---
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 Open left hemicolectomy and partial omentectomy Peritonitis Leukocytosis Diverticulitis with absces -CT abd/pelvis showed diverticulitis with abscess -General surgery following, assistance appreciated -s/p diagnositic laparatomy and drain placement 09/26/2021 Returned to the OR on 09/30/2021 for left hemicolectomy, appendectomy, and partial omentectomy -Wound culture +VRE Acute renal failure / ATN/Vasomotor nephropathy Acute blood loss anemia Gross Hematuria-resolved -09/08 to surgical procedures-- c/f ureteral injury -s/p 3 units of pRBCs since admission Lower extremity dopplers are negative Remains strict NPO , remains on TPN Remains on Precedex WCC is slowly improving CTA and CT abdomen and pelvis - no new pathology, no PE Diuretic therapy- Furosemide 20mg q6 for 6 doses, while monitoring renal function and electrolytes Keep Mg at 2, Potassium at 4 and Phosp at 2.5 Discussed with General Surgery at bedside -continue to titrate supplemental oxygen to keep SPO2 88-90% -CXR , ABG as indicated -trend temperature curve, trend WCC -Antibiotics per ID. -NPO, TPN for nutritional support - continue bronchodilators with pulmonary hygiene per RT -Incentive spirometry; PT/OT, increase activity as tolerated - Accuchecks with glycemic control per SSI (While critically ill target blood glucose of 140-180 mg/dL; avoid hypoglycemia) - continue to avoid benzodiazepines, reduce the possibility of delirium - Maintenance of sleep-wake cycle, avoid delirium -Supportive transfusions, to keep HgB >7g/dL -Avoid nephrotoxins and dose all medications for GFR and CrCL - mobility, off loading and frequent turning to prevent pressure ulcer - Monitor hemodynamics closely - continue other care per attending / other consultants CONDITION: FAIR PROGNOSIS: GUARDED CODE STATUS: FULL CODE Subjective Date of service: 10/23/21 Principal diagnosis: BRYANNA Interval history: Patient is seen today for: Septic shock; AHRF; Anemia; Pneumonia (Aspiration); 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 Objective Vital Signs - 12hr 10/22/21 10/22/21 10/22/21 23:27 23:30 23:44 Temperature 98.9 F Pulse Rate 88 88 Pulse Rate [ From Monitor] Respiratory 31 H 37 H Rate Blood Pressure 114/74 111/72 O2 Sat by Pulse 97 97 Oximetry 10/23/21 10/23/21 10/23/21 00:00 00:30 00:50 Temperature Pulse Rate 87 86 88 Pulse Rate [ 87 From Monitor] Respiratory 43 H 45 H 34 H Rate Blood Pressure 121/81 129/89 112/73 O2 Sat by Pulse 98 89 96 Oximetry 10/23/21 10/23/21 10/23/21 01:00 01:30 02:00 Temperature Pulse Rate 90 87 85 Pulse Rate [ From Monitor] Respiratory 35 H 39 H 41 H Rate Blood Pressure 122/85 119/78 109/69 O2 Sat by Pulse 96 95 87 Oximetry 10/23/21 10/23/21 10/23/21 02:30 03:00 03:19 Temperature 98.3 F Pulse Rate 81 84 Pulse Rate [ From Monitor] Respiratory 39 H 44 H Rate Blood Pressure 118/74 126/83 O2 Sat by Pulse 88 90 Oximetry 10/23/21 10/23/21 10/23/21 03:30 04:00 04:30 Temperature Pulse Rate 82 82 81 Pulse Rate [ 80 From Monitor] Respiratory 41 H 42 H 41 H Rate Blood Pressure 115/72 100/58 112/73 O2 Sat by Pulse 90 89 96 Oximetry 10/23/21 10/23/21 10/23/21 05:00 05:30 06:00 Temperature Pulse Rate 78 76 78 Pulse Rate [ From Monitor] Respiratory 41 H 40 H 42 H Rate Blood Pressure 108/69 119/77 108/70 O2 Sat by Pulse 95 94 94 Oximetry 10/23/21 10/23/21 10/23/21 06:30 07:00 07:27 Temperature Pulse Rate 77 78 77 Pulse Rate [ From Monitor] Respiratory 38 H 37 H 41 H Rate Blood Pressure 121/78 128/87 132/89 O2 Sat by Pulse 90 97 95 Oximetry 10/23/21 10/23/21 10/23/21 07:30 08:00 08:30 Temperature 98.4 F Pulse Rate 77 80 77 Pulse Rate [ 80 From Monitor] Respiratory 44 H 32 H 41 H Rate Blood Pressure 126/87 120/79 123/83 O2 Sat by Pulse 90 98 96 Oximetry 10/23/21 10/23/21 10/23/21 09:00 09:30 10:00 Temperature Pulse Rate 77 80 79 Pulse Rate [ From Monitor] Respiratory 43 H 22 38 H Rate Blood Pressure 121/83 122/88 128/86 O2 Sat by Pulse 96 96 92 Oximetry Constitutional: alert, agitated, appears uncomfortable, other (in moderate resp distress) Eyes: non-icteric ENT: oropharynx moist, other (RIJ CVL) Neck: supple, other (RIJCVL) Effort: mildly labored Ascultation: Bilateral: diminished breath sounds, rhonchi Percussion: Bilateral: not dull Cardiovascular: regular rate and rhythm, other (S1,S2) Gastrointestinal: hypoactive bowel sounds, other (YURIDIA drains, anterior abdominal dressings, Doss catheter) Integumentary: other (tatooed) Extremities: cool, edema Neurologic: normal mental status, non-focal exam, pupils equal and round, motor strength normal and Psychiatric: mood appropriate, affect normal CBC and BMP: 10/24/21 04:00 10/24/21 04:00 ABG, PT/INR, D-dimer: ABG ABG pH 7.509 pH Units (7.350-7.450) H 10/21/21 09:05 ABG pCO2 33.7 mm Hg 10/21/21 09:05 ABG pO2 60.3 mm Hg (80.0-90.0) L 10/21/21 09:05 ABG O2 Saturation 97.5 % (95.0-99.0) 10/21/21 09:05 PT/INR, D-dimer PT 19.0 Sec. (12.2-14.9) H 10/14/21 04:05 INR 1.41 (0.87-1.13) H 10/14/21 04:05 D-Dimer > 16281 ng/mlDDU (0-234) H 10/09/21 08:45 Abnormal lab findings: Abnormal Labs 09/24/21 09/24/21 09/24/21 14:49 14:58 14:58 WBC 32.4 H RBC Hgb Hct MCH MCHC RDW Plt Count 535 H Lymph % (Auto) Faulk % (Auto) Lymph # (Auto) Faulk # (Auto) Seg Neutrophils % Seg Neuts % (Manual) 82.0 H Lymphocytes % (Manual) 2.0 L Monocytes % (Manual) Nucleated RBC % Seg Neutrophils # Seg Neutrophils # Man 26.6 H Lymphocytes # (Manual) 0.6 L Monocytes # (Manual) 1.6 H PT INR D-Dimer ABG pH ABG pO2 ABG HCO3 ABG O2 Saturation ABG Base Excess ABG Hemoglobin Oxyhemoglobin Sodium 134 L Potassium 3.5 L Chloride 97.6 L Carbon Dioxide BUN Creatinine Glucose 119 H POC Glucose Lactic Acid Calcium Phosphorus Magnesium Ferritin ALT Lactate Dehydrogenase Total Creatine Kinase C-Reactive Protein Total Protein 6.1 L Albumin 3.3 L Urine Blood Urine WBC (Auto) U Epithel Cells (Auto) 18.0 H Crossmatch 09/25/21 09/25/21 09/26/21 05:47 05:47 04:20 WBC 25.4 H 23.6 H RBC 3.54 L Hgb Hct MCH MCHC RDW Plt Count 466 H 486 H Lymph % (Auto) Faulk % (Auto) Lymph # (Auto) Faulk # (Auto) Seg Neutrophils % Seg Neuts % (Manual) 93.0 H 86.0 H Lymphocytes % (Manual) 4.0 L 3.0 L Monocytes % (Manual) Nucleated RBC % Seg Neutrophils # Seg Neutrophils # Man 23.6 H 20.3 H Lymphocytes # (Manual) 1.0 L 0.7 L Monocytes # (Manual) 0.9 H PT INR D-Dimer ABG pH ABG pO2 ABG HCO3 ABG O2 Saturation ABG Base Excess ABG Hemoglobin Oxyhemoglobin Sodium 136 L Potassium 3.0 L Chloride Carbon Dioxide 21 L BUN Creatinine Glucose POC Glucose Lactic Acid Calcium 7.8 L Phosphorus Magnesium Ferritin ALT Lactate Dehydrogenase Total Creatine Kinase C-Reactive Protein Total Protein Albumin Urine Blood Urine WBC (Auto) U Epithel Cells (Auto) Crossmatch 09/26/21 09/27/21 09/27/21 04:20 08:28 08:28 WBC 20.6 H RBC 3.42 L Hgb 9.9 L Hct 29.5 L D MCH MCHC RDW Plt Count Lymph % (Auto) Faulk % (Auto) Lymph # (Auto) Faulk # (Auto) Seg Neutrophils % Seg Neuts % (Manual) 94.1 H Lymphocytes % (Manual) 1.0 L Monocytes % (Manual) Nucleated RBC % Seg Neutrophils # Seg Neutrophils # Man 19.4 H Lymphocytes # (Manual) 0.2 L Monocytes # (Manual) PT INR D-Dimer ABG pH ABG pO2 ABG HCO3 ABG O2 Saturation ABG Base Excess ABG Hemoglobin Oxyhemoglobin Sodium Potassium 3.2 L Chloride Carbon Dioxide 20 L BUN Creatinine Glucose 137 H POC Glucose Lactic Acid Calcium 8.3 L 8.2 L Phosphorus Magnesium Ferritin ALT Lactate Dehydrogenase Total Creatine Kinase C-Reactive Protein Total Protein Albumin Urine Blood Urine WBC (Auto) U Epithel Cells (Auto) Crossmatch 09/28/21 09/28/21 09/29/21 04:55 15:35 07:02 WBC 15.1 H 16.5 H RBC 3.34 L 3.20 L Hgb 9.3 L 9.1 L Hct 28.7 L 27.3 L MCH MCHC RDW 15.3 H Plt Count 444 H 469 H Lymph % (Auto) Faulk % (Auto) Lymph # (Auto) Faulk # (Auto) 0.9 H Seg Neutrophils % 89.3 H Seg Neuts % (Manual) 88.0 H 80.0 H Lymphocytes % (Manual) 9.0 L 8.0 L Monocytes % (Manual) Nucleated RBC % Seg Neutrophils # 14.0 H Seg Neutrophils # Man 13.3 H 13.2 H Lymphocytes # (Manual) Monocytes # (Manual) PT INR D-Dimer ABG pH ABG pO2 ABG HCO3 ABG O2 Saturation ABG Base Excess ABG Hemoglobin Oxyhemoglobin Sodium Potassium 3.3 L Chloride 109.4 H Carbon Dioxide 20 L BUN Creatinine 0.5 L Glucose POC Glucose Lactic Acid Calcium 7.9 L Phosphorus Magnesium Ferritin ALT Lactate Dehydrogenase Total Creatine Kinase C-Reactive Protein Total Protein Albumin Urine Blood Urine WBC (Auto) U Epithel Cells (Auto) Crossmatch 09/30/21 09/30/21 10/01/21 05:40 05:40 07:49 WBC 17.4 H 17.9 H RBC 3.37 L 3.32 L Hgb 9.2 L 9.3 L Hct 28.4 L 28.3 L MCH 27 L MCHC RDW 15.4 H 15.5 H Plt Count 530 H 604 H Lymph % (Auto) Faulk % (Auto) Lymph # (Auto) Faulk # (Auto) Seg Neutrophils % Seg Neuts % (Manual) 91.0 H 72.0 H Lymphocytes % (Manual) 9.0 L 1.0 L Monocytes % (Manual) 8.0 H Nucleated RBC % 1.0 H Seg Neutrophils # Seg Neutrophils # Man 15.8 H 12.9 H Lymphocytes # (Manual) 0.2 L Monocytes # (Manual) 1.4 H PT INR D-Dimer ABG pH ABG pO2 ABG HCO3 ABG O2 Saturation ABG Base Excess ABG Hemoglobin Oxyhemoglobin Sodium Potassium 3.5 L Chloride Carbon Dioxide 21 L BUN Creatinine 0.5 L Glucose POC Glucose Lactic Acid Calcium 8.0 L Phosphorus Magnesium Ferritin ALT Lactate Dehydrogenase Total Creatine Kinase C-Reactive Protein Total Protein Albumin Urine Blood Urine WBC (Auto) U Epithel Cells (Auto) Crossmatch 10/01/21 10/01/21 10/02/21 07:49 10:45 05:41 WBC 23.2 H RBC 2.90 L Hgb 7.9 L Hct 24.8 L MCH 27 L MCHC RDW 15.3 H Plt Count 621 H Lymph % (Auto) Faulk % (Auto) Lymph # (Auto) [place] # (Auto) Seg Neutrophils % Seg Neuts % (Manual) 88.0 H Lymphocytes % (Manual) 2.0 L Monocytes % (Manual) Nucleated RBC % Seg Neutrophils # Seg Neutrophils # Man 20.4 H Lymphocytes # (Manual) 0.5 L Monocytes # (Manual) 1.4 H PT INR D-Dimer ABG pH ABG pO2 ABG HCO3 ABG O2 Saturation ABG Base Excess ABG Hemoglobin Oxyhemoglobin Sodium Potassium Chloride Carbon Dioxide 20 L BUN Creatinine 0.5 L Glucose POC Glucose Lactic Acid Calcium 7.6 L Phosphorus Magnesium Ferritin ALT Lactate Dehydrogenase Total Creatine Kinase C-Reactive Protein Total Protein Albumin Urine Blood Urine WBC (Auto) U Epithel Cells (Auto) Crossmatch See Detail 10/02/21 10/02/21 10/02/21 05:41 07:47 11:10 WBC RBC Hgb Hct MCH MCHC RDW Plt Count Lymph % (Auto) Faulk % (Auto) Lymph # (Auto) Faulk # (Auto) Seg Neutrophils % Seg Neuts % (Manual) Lymphocytes % (Manual) Monocytes % (Manual) Nucleated RBC % Seg Neutrophils # Seg Neutrophils # Man Lymphocytes # (Manual) Monocytes # (Manual) PT INR D-Dimer ABG pH ABG pO2 ABG HCO3 ABG O2 Saturation ABG Base Excess ABG Hemoglobin Oxyhemoglobin Sodium Potassium Chloride Carbon Dioxide BUN Creatinine Glucose 130 H POC Glucose 145 H 120 H Lactic Acid Calcium 6.9 L Phosphorus Magnesium Ferritin ALT Lactate Dehydrogenase Total Creatine Kinase C-Reactive Protein Total Protein Albumin Urine Blood Urine WBC (Auto) U Epithel Cells (Auto) Crossmatch 10/02/21 10/03/21 10/03/21 16:14 04:55 04:55 WBC 26.1 H RBC 2.31 L Hgb 6.3 L Hct 19.8 L* MCH MCHC RDW 15.9 H Plt Count 598 H Lymph % (Auto) Faulk % (Auto) Lymph # (Auto) [place] # (Auto) Seg Neutrophils % Seg Neuts % (Manual) 82.0 H Lymphocytes % (Manual) 1.0 L Monocytes % (Manual) 10.0 H Nucleated RBC % Seg Neutrophils # Seg Neutrophils # Man 21.4 H Lymphocytes # (Manual) 0.3 L Monocytes # (Manual) 2.6 H PT INR D-Dimer ABG pH ABG pO2 ABG HCO3 ABG O2 Saturation ABG Base Excess ABG Hemoglobin Oxyhemoglobin Sodium Potassium Chloride Carbon Dioxide BUN 22 H Creatinine 1.7 H D Glucose 145 H POC Glucose 109 H Lactic Acid Calcium 6.4 L Phosphorus Magnesium 2.40 H Ferritin ALT Lactate Dehydrogenase Total Creatine Kinase C-Reactive Protein Total Protein 4.2 L Albumin 1.6 L Urine Blood Urine WBC (Auto) U Epithel Cells (Auto) Crossmatch 10/03/21 10/03/21 10/03/21 07:15 11:49 17:06 WBC RBC Hgb Hct MCH MCHC RDW Plt Count Lymph % (Auto) Faulk % (Auto) Lymph # (Auto) Faulk # (Auto) Seg Neutrophils % Seg Neuts % (Manual) Lymphocytes % (Manual) Monocytes % (Manual) Nucleated RBC % Seg Neutrophils # Seg Neutrophils # Man Lymphocytes # (Manual) Monocytes # (Manual) PT INR D-Dimer ABG pH ABG pO2 ABG HCO3 ABG O2 Saturation ABG Base Excess ABG Hemoglobin Oxyhemoglobin Sodium Potassium Chloride Carbon Dioxide BUN Creatinine Glucose POC Glucose 162 H 171 H 174 H Lactic Acid Calcium Phosphorus Magnesium Ferritin ALT Lactate Dehydrogenase Total Creatine Kinase C-Reactive Protein Total Protein Albumin Urine Blood Urine WBC (Auto) U Epithel Cells (Auto) Crossmatch 10/03/21 10/04/21 10/04/21 23:31 04:44 04:44 WBC 26.4 H RBC 2.33 L Hgb 6.6 L Hct 19.4 L* MCH MCHC RDW 16.1 H Plt Count 602 H Lymph % (Auto) Faulk % (Auto) Lymph # (Auto) [place] # (Auto) Seg Neutrophils % Seg Neuts % (Manual) 80.0 H Lymphocytes % (Manual) 5.0 L Monocytes % (Manual) Nucleated RBC % Seg Neutrophils # Seg Neutrophils # Man 21.1 H Lymphocytes # (Manual) Monocytes # (Manual) 1.8 H PT INR D-Dimer ABG pH ABG pO2 ABG HCO3 ABG O2 Saturation ABG Base Excess ABG Hemoglobin Oxyhemoglobin Sodium 135 L Potassium 3.4 L Chloride Carbon Dioxide 21 L BUN 28 H Creatinine 2.0 H Glucose 171 H POC Glucose 179 H Lactic Acid Calcium 6.7 L Phosphorus 1.30 L D Magnesium 2.40 H Ferritin ALT Lactate Dehydrogenase Total Creatine Kinase C-Reactive Protein Total Protein Albumin Urine Blood Urine WBC (Auto) U Epithel Cells (Auto) Crossmatch 10/04/21 10/04/21 10/04/21 05:25 12:01 13:30 WBC RBC Hgb Hct MCH MCHC RDW Plt Count Lymph % (Auto) Faulk % (Auto) Lymph # (Auto) Faulk # (Auto) Seg Neutrophils % Seg Neuts % (Manual) Lymphocytes % (Manual) Monocytes % (Manual) Nucleated RBC % Seg Neutrophils # Seg Neutrophils # Man Lymphocytes # (Manual) Monocytes # (Manual) PT INR D-Dimer ABG pH ABG pO2 ABG HCO3 ABG O2 Saturation ABG Base Excess ABG Hemoglobin Oxyhemoglobin Sodium Potassium Chloride Carbon Dioxide BUN Creatinine Glucose POC Glucose 174 H 172 H Lactic Acid Calcium Phosphorus Magnesium Ferritin ALT Lactate Dehydrogenase Total Creatine Kinase C-Reactive Protein Total Protein Albumin Urine Blood Urine WBC (Auto) U Epithel Cells (Auto) Crossmatch See Detail 10/04/21 10/04/21 10/04/21 16:47 20:28 22:23 WBC RBC Hgb 8.5 L Hct 25.1 L MCH MCHC RDW Plt Count Lymph % (Auto) Faulk % (Auto) Lymph # (Auto) Faulk # (Auto) Seg Neutrophils % Seg Neuts % (Manual) Lymphocytes % (Manual) Monocytes % (Manual) Nucleated RBC % Seg Neutrophils # Seg Neutrophils # Man Lymphocytes # (Manual) Monocytes # (Manual) PT INR D-Dimer ABG pH ABG pO2 ABG HCO3 ABG O2 Saturation ABG Base Excess ABG Hemoglobin Oxyhemoglobin Sodium Potassium Chloride Carbon Dioxide BUN Creatinine Glucose POC Glucose 135 H 152 H Lactic Acid Calcium Phosphorus Magnesium Ferritin ALT Lactate Dehydrogenase Total Creatine Kinase C-Reactive Protein Total Protein Albumin Urine Blood Urine WBC (Auto) U Epithel Cells (Auto) Crossmatch 10/05/21 10/05/21 10/05/21 04:40 04:40 04:40 WBC 24.7 H RBC 3.02 L Hgb 8.4 L Hct 25.5 L MCH MCHC RDW 16.2 H Plt Count 644 H Lymph % (Auto) Faulk % (Auto) Lymph # (Auto) [place] # (Auto) Seg Neutrophils % Seg Neuts % (Manual) 91.0 H Lymphocytes % (Manual) 7.0 L Monocytes % (Manual) Nucleated RBC % Seg Neutrophils # Seg Neutrophils # Man 22.5 H Lymphocytes # (Manual) Monocytes # (Manual) PT 17.8 H INR 1.31 H D-Dimer ABG pH ABG pO2 ABG HCO3 ABG O2 Saturation ABG Base Excess ABG Hemoglobin Oxyhemoglobin Sodium 135 L Potassium Chloride Carbon Dioxide BUN 29 H Creatinine 2.1 H Glucose 156 H POC Glucose Lactic Acid Calcium 7.6 L Phosphorus 1.90 L D Magnesium Ferritin ALT Lactate Dehydrogenase Total Creatine Kinase C-Reactive Protein Total Protein 5.2 L D Albumin 1.8 L Urine Blood Urine WBC (Auto) U Epithel Cells (Auto) Crossmatch 10/05/21 10/05/21 10/05/21 05:08 18:17 23:37 WBC RBC Hgb Hct MCH MCHC RDW Plt Count Lymph % (Auto) Faulk % (Auto) Lymph # (Auto) Faulk # (Auto) Seg Neutrophils % Seg Neuts % (Manual) Lymphocytes % (Manual) Monocytes % (Manual) Nucleated RBC % Seg Neutrophils # Seg Neutrophils # Man Lymphocytes # (Manual) Monocytes # (Manual) PT INR D-Dimer ABG pH ABG pO2 ABG HCO3 ABG O2 Saturation ABG Base Excess ABG Hemoglobin Oxyhemoglobin Sodium Potassium Chloride Carbon Dioxide BUN Creatinine Glucose POC Glucose 156 H 119 H 130 H Lactic Acid Calcium Phosphorus Magnesium Ferritin ALT Lactate Dehydrogenase Total Creatine Kinase C-Reactive Protein Total Protein Albumin Urine Blood Urine WBC (Auto) U Epithel Cells (Auto) Crossmatch 10/06/21 10/06/21 10/06/21 04:27 05:27 05:27 WBC 23.4 H RBC 2.84 L Hgb 7.8 L Hct 23.9 L MCH MCHC RDW 16.2 H Plt Count 712 H Lymph % (Auto) Faulk % (Auto) Lymph # (Auto) Faulk # (Auto) Seg Neutrophils % Seg Neuts % (Manual) Lymphocytes % (Manual) Monocytes % (Manual) Nucleated RBC % Seg Neutrophils # Seg Neutrophils # Man Lymphocytes # (Manual) Monocytes # (Manual) PT INR D-Dimer ABG pH ABG pO2 ABG HCO3 ABG O2 Saturation ABG Base Excess ABG Hemoglobin Oxyhemoglobin Sodium 134 L Potassium Chloride Carbon Dioxide 20 L BUN 28 H Creatinine 1.9 H Glucose 132 H POC Glucose 132 H Lactic Acid Calcium 7.8 L Phosphorus Magnesium Ferritin ALT Lactate Dehydrogenase Total Creatine Kinase 242 H C-Reactive Protein Total Protein Albumin Urine Blood Urine WBC (Auto) U Epithel Cells (Auto) Crossmatch 10/06/21 10/06/21 10/06/21 16:40 20:50 23:39 WBC RBC Hgb Hct MCH MCHC RDW Plt Count Lymph % (Auto) Faulk % (Auto) Lymph # (Auto) Faulk # (Auto) Seg Neutrophils % Seg Neuts % (Manual) Lymphocytes % (Manual) Monocytes % (Manual) Nucleated RBC % Seg Neutrophils # Seg Neutrophils # Man Lymphocytes # (Manual) Monocytes # (Manual) PT INR D-Dimer ABG pH ABG pO2 ABG HCO3 ABG O2 Saturation ABG Base Excess ABG Hemoglobin Oxyhemoglobin Sodium Potassium Chloride Carbon Dioxide BUN Creatinine Glucose POC Glucose 133 H 116 H 132 H Lactic Acid Calcium Phosphorus Magnesium Ferritin ALT Lactate Dehydrogenase Total Creatine Kinase C-Reactive Protein Total Protein Albumin Urine Blood Urine WBC (Auto) U Epithel Cells (Auto) Crossmatch 10/07/21 10/07/21 10/07/21 05:09 05:13 09:43 WBC 22.3 H RBC 2.81 L Hgb 7.8 L Hct 24.0 L MCH MCHC RDW 16.5 H Plt Count 733 H Lymph % (Auto) Faulk % (Auto) Lymph # (Auto) [place]ulk # (Auto) Seg Neutrophils % Seg Neuts % (Manual) 85.0 H Lymphocytes % (Manual) 1.0 L Monocytes % (Manual) Nucleated RBC % Seg Neutrophils # Seg Neutrophils # Man 19.0 H Lymphocytes # (Manual) 0.2 L Monocytes # (Manual) 1.6 H PT INR D-Dimer ABG pH ABG pO2 ABG HCO3 ABG O2 Saturation ABG Base Excess ABG Hemoglobin Oxyhemoglobin Sodium 136 L Potassium Chloride Carbon Dioxide 20 L BUN 29 H Creatinine 1.9 H Glucose 140 H POC Glucose 139 H Lactic Acid Calcium 7.6 L Phosphorus Magnesium Ferritin ALT Lactate Dehydrogenase Total Creatine Kinase C-Reactive Protein Total Protein Albumin Urine Blood Urine WBC (Auto) U Epithel Cells (Auto) Crossmatch 10/07/21 10/07/21 10/08/21 11:38 17:44 00:20 WBC RBC Hgb Hct MCH MCHC RDW Plt Count Lymph % (Auto) Faulk % (Auto) Lymph # (Auto) Faulk # (Auto) Seg Neutrophils % Seg Neuts % (Manual) Lymphocytes % (Manual) Monocytes % (Manual) Nucleated RBC % Seg Neutrophils # Seg Neutrophils # Man Lymphocytes # (Manual) Monocytes # (Manual) PT INR D-Dimer ABG pH ABG pO2 ABG HCO3 ABG O2 Saturation ABG Base Excess ABG Hemoglobin Oxyhemoglobin Sodium Potassium Chloride Carbon Dioxide BUN Creatinine Glucose POC Glucose 126 H 113 H 129 H Lactic Acid Calcium Phosphorus Magnesium Ferritin ALT Lactate Dehydrogenase Total Creatine Kinase C-Reactive Protein Total Protein Albumin Urine Blood Urine WBC (Auto) U Epithel Cells (Auto) Crossmatch 10/08/21 10/08/21 10/08/21 05:26 05:26 05:29 WBC 21.8 H RBC 2.84 L Hgb 7.8 L Hct 24.1 L MCH 27 L MCHC RDW 16.5 H Plt Count 789 H Lymph % (Auto) Faulk % (Auto) Lymph # (Auto) Faulk # (Auto) Seg Neutrophils % Seg Neuts % (Manual) Lymphocytes % (Manual) Monocytes % (Manual) Nucleated RBC % Seg Neutrophils # Seg Neutrophils # Man Lymphocytes # (Manual) Monocytes # (Manual) PT INR D-Dimer ABG pH ABG pO2 ABG HCO3 ABG O2 Saturation ABG Base Excess ABG Hemoglobin Oxyhemoglobin Sodium 136 L Potassium Chloride Carbon Dioxide 20 L BUN 31 H Creatinine 1.7 H Glucose 134 H POC Glucose 123 H Lactic Acid Calcium 7.9 L Phosphorus 4.60 H D Magnesium Ferritin ALT Lactate Dehydrogenase Total Creatine Kinase C-Reactive Protein Total Protein Albumin Urine Blood Urine WBC (Auto) U Epithel Cells (Auto) Crossmatch 10/08/21 10/08/21 10/08/21 11:53 17:07 20:08 WBC RBC Hgb Hct MCH MCHC RDW Plt Count Lymph % (Auto) Faulk % (Auto) Lymph # (Auto) Faulk # (Auto) Seg Neutrophils % Seg Neuts % (Manual) Lymphocytes % (Manual) Monocytes % (Manual) Nucleated RBC % Seg Neutrophils # Seg Neutrophils # Man Lymphocytes # (Manual) Monocytes # (Manual) PT INR D-Dimer ABG pH 7.308 L ABG pO2 40.2 L ABG HCO3 15.7 L ABG O2 Saturation 68 L ABG Base Excess -9.6 L ABG Hemoglobin 9.7 L Oxyhemoglobin 67.8 L Sodium Potassium Chloride Carbon Dioxide BUN Creatinine Glucose POC Glucose 128 H 139 H Lactic Acid Calcium Phosphorus Magnesium Ferritin ALT Lactate Dehydrogenase Total Creatine Kinase C-Reactive Protein Total Protein Albumin Urine Blood Urine WBC (Auto) U Epithel Cells (Auto) Crossmatch 10/08/21 10/08/21 10/08/21 21:30 22:55 22:55 WBC RBC Hgb Hct MCH MCHC RDW Plt Count Lymph % (Auto) Faulk % (Auto) Lymph # (Auto) Faulk # (Auto) Seg Neutrophils % Seg Neuts % (Manual) Lymphocytes % (Manual) Monocytes % (Manual) Nucleated RBC % Seg Neutrophils # Seg Neutrophils # Man Lymphocytes # (Manual) Monocytes # (Manual) PT INR D-Dimer ABG pH ABG pO2 43.8 L ABG HCO3 19.5 L ABG O2 Saturation 70.7 L ABG Base Excess -5.3 L ABG Hemoglobin 8.6 L Oxyhemoglobin 69.4 L Sodium Potassium Chloride Carbon Dioxide BUN Creatinine Glucose POC Glucose Lactic Acid 2.50 H* Calcium Phosphorus Magnesium Ferritin ALT Lactate Dehydrogenase Total Creatine Kinase C-Reactive Protein Total Protein Albumin Urine Blood Urine WBC (Auto) U Epithel Cells (Auto) Crossmatch See Detail 10/09/21 10/09/21 10/09/21 03:12 05:31 05:31 WBC 20.3 H RBC 2.70 L Hgb 7.4 L Hct 23.1 L MCH 27 L MCHC RDW 16.6 H Plt Count 786 H Lymph % (Auto) [place]ulk % (Auto) Lymph # (Auto) [place]ulk # (Auto) Seg Neutrophils % Seg Neuts % (Manual) 88.0 H Lymphocytes % (Manual) 3.0 L Monocytes % (Manual) Nucleated RBC % Seg Neutrophils # Seg Neutrophils # Man 17.9 H Lymphocytes # (Manual) 0.6 L Monocytes # (Manual) 1.2 H PT INR D-Dimer ABG pH ABG pO2 ABG HCO3 ABG O2 Saturation ABG Base Excess ABG Hemoglobin Oxyhemoglobin Sodium 136 L Potassium Chloride Carbon Dioxide 20 L BUN 32 H Creatinine 1.5 H Glucose 214 H POC Glucose 190 H Lactic Acid Calcium 7.5 L Phosphorus Magnesium Ferritin ALT Lactate Dehydrogenase Total Creatine Kinase C-Reactive Protein Total Protein 5.8 L Albumin 2.3 L Urine Blood Urine WBC (Auto) U Epithel Cells (Auto) Crossmatch 10/09/21 10/09/21 10/09/21 05:31 05:31 05:31 WBC RBC Hgb Hct MCH MCHC RDW Plt Count Lymph % (Auto) Faulk % (Auto) Lymph # (Auto) [place]ulk # (Auto) Seg Neutrophils % Seg Neuts % (Manual) Lymphocytes % (Manual) Monocytes % (Manual) Nucleated RBC % Seg Neutrophils # Seg Neutrophils # Man Lymphocytes # (Manual) Monocytes # (Manual) PT INR D-Dimer ABG pH ABG pO2 ABG HCO3 ABG O2 Saturation ABG Base Excess ABG Hemoglobin Oxyhemoglobin Sodium Potassium Chloride Carbon Dioxide BUN Creatinine Glucose POC Glucose Lactic Acid 2.20 H* Calcium Phosphorus Magnesium Ferritin 751.9 H ALT Lactate Dehydrogenase Total Creatine Kinase C-Reactive Protein 15.90 H Total Protein Albumin Urine Blood Urine WBC (Auto) U Epithel Cells (Auto) Crossmatch 10/09/21 10/09/21 10/09/21 05:31 08:45 12:08 WBC RBC Hgb Hct MCH MCHC RDW Plt Count Lymph % (Auto) Faulk % (Auto) Lymph # (Auto) [place]ulk # (Auto) Seg Neutrophils % Seg Neuts % (Manual) Lymphocytes % (Manual) Monocytes % (Manual) Nucleated RBC % Seg Neutrophils # Seg Neutrophils # Man Lymphocytes # (Manual) Monocytes # (Manual) PT INR D-Dimer > 28816 H ABG pH ABG pO2 54.3 L ABG HCO3 ABG O2 Saturation 86.6 L ABG Base Excess -2.6 L ABG Hemoglobin 7.2 L Oxyhemoglobin 85.3 L Sodium Potassium Chloride Carbon Dioxide BUN Creatinine Glucose POC Glucose Lactic Acid Calcium Phosphorus Magnesium Ferritin ALT Lactate Dehydrogenase 472 H Total Creatine Kinase C-Reactive Protein Total Protein Albumin Urine Blood Urine WBC (Auto) U Epithel Cells (Auto) Crossmatch 10/09/21 10/09/21 10/10/21 12:19 17:43 00:30 WBC RBC Hgb Hct MCH MCHC RDW Plt Count Lymph % (Auto) [place] % (Auto) Lymph # (Auto) [place] # (Auto) Seg Neutrophils % Seg Neuts % (Manual) Lymphocytes % (Manual) Monocytes % (Manual) Nucleated RBC % Seg Neutrophils # Seg Neutrophils # Man Lymphocytes # (Manual) Monocytes # (Manual) PT INR D-Dimer ABG pH ABG pO2 ABG HCO3 ABG O2 Saturation ABG Base Excess ABG Hemoglobin Oxyhemoglobin Sodium Potassium Chloride Carbon Dioxide BUN Creatinine Glucose POC Glucose 151 H 136 H 132 H Lactic Acid Calcium Phosphorus Magnesium Ferritin ALT Lactate Dehydrogenase Total Creatine Kinase C-Reactive Protein Total Protein Albumin Urine Blood Urine WBC (Auto) U Epithel Cells (Auto) Crossmatch 10/10/21 10/10/21 10/10/21 04:10 04:10 05:41 WBC 20.8 H RBC 2.54 L Hgb 7.1 L Hct 21.8 L MCH MCHC RDW 16.6 H Plt Count 740 H Lymph % (Auto) [place] % (Auto) Lymph # (Auto) [place] # (Auto) Seg Neutrophils % Seg Neuts % (Manual) Lymphocytes % (Manual) Monocytes % (Manual) Nucleated RBC % Seg Neutrophils # Seg Neutrophils # Man Lymphocytes # (Manual) Monocytes # (Manual) PT INR D-Dimer ABG pH ABG pO2 ABG HCO3 ABG O2 Saturation ABG Base Excess ABG Hemoglobin Oxyhemoglobin Sodium 130 L Potassium Chloride 97.9 L Carbon Dioxide 19 L BUN 37 H Creatinine 1.4 H Glucose 181 H POC Glucose 150 H Lactic Acid Calcium 7.8 L Phosphorus Magnesium Ferritin ALT Lactate Dehydrogenase Total Creatine Kinase C-Reactive Protein Total Protein Albumin Urine Blood Urine WBC (Auto) U Epithel Cells (Auto) Crossmatch 10/10/21 10/10/21 10/10/21 11:10 16:00 23:50 WBC RBC Hgb Hct MCH MCHC RDW Plt Count Lymph % (Auto) [place] % (Auto) Lymph # (Auto) [place] # (Auto) Seg Neutrophils % Seg Neuts % (Manual) Lymphocytes % (Manual) Monocytes % (Manual) Nucleated RBC % Seg Neutrophils # Seg Neutrophils # Man Lymphocytes # (Manual) Monocytes # (Manual) PT INR D-Dimer ABG pH ABG pO2 ABG HCO3 ABG O2 Saturation ABG Base Excess ABG Hemoglobin Oxyhemoglobin Sodium Potassium Chloride Carbon Dioxide BUN Creatinine Glucose POC Glucose 136 H 151 H 129 H Lactic Acid Calcium Phosphorus Magnesium Ferritin ALT Lactate Dehydrogenase Total Creatine Kinase C-Reactive Protein Total Protein Albumin Urine Blood Urine WBC (Auto) U Epithel Cells (Auto) Crossmatch 10/10/21 10/11/21 10/11/21 Unknown 03:30 03:30 WBC 23.2 H RBC 2.39 L Hgb 6.7 L Hct 20.3 L MCH MCHC RDW 16.7 H Plt Count 701 H Lymph % (Auto) [place] % (Auto) Lymph # (Auto) [place] # (Auto) Seg Neutrophils % Seg Neuts % (Manual) Lymphocytes % (Manual) Monocytes % (Manual) Nucleated RBC % Seg Neutrophils # Seg Neutrophils # Man Lymphocytes # (Manual) Monocytes # (Manual) PT INR D-Dimer ABG pH 7.505 H ABG pO2 246.1 H ABG HCO3 ABG O2 Saturation 99.4 H ABG Base Excess ABG Hemoglobin 6.0 L Oxyhemoglobin Sodium 135 L Potassium Chloride Carbon Dioxide 20 L BUN 38 H Creatinine 1.6 H Glucose 118 H POC Glucose Lactic Acid Calcium 7.9 L Phosphorus Magnesium Ferritin ALT Lactate Dehydrogenase Total Creatine Kinase C-Reactive Protein Total Protein Albumin Urine Blood Urine WBC (Auto) U Epithel Cells (Auto) Crossmatch 10/11/21 10/11/21 10/12/21 11:41 17:51 00:18 WBC RBC Hgb Hct MCH MCHC RDW Plt Count Lymph % (Auto) [place] % (Auto) Lymph # (Auto) [place] # (Auto) Seg Neutrophils % Seg Neuts % (Manual) Lymphocytes % (Manual) Monocytes % (Manual) Nucleated RBC % Seg Neutrophils # Seg Neutrophils # Man Lymphocytes # (Manual) Monocytes # (Manual) PT INR D-Dimer ABG pH ABG pO2 ABG HCO3 ABG O2 Saturation ABG Base Excess ABG Hemoglobin Oxyhemoglobin Sodium Potassium Chloride Carbon Dioxide BUN Creatinine Glucose POC Glucose 128 H 138 H 174 H Lactic Acid Calcium Phosphorus Magnesium Ferritin ALT Lactate Dehydrogenase Total Creatine Kinase C-Reactive Protein Total Protein Albumin Urine Blood Urine WBC (Auto) U Epithel Cells (Auto) Crossmatch 10/12/21 10/12/21 10/12/21 05:39 06:02 06:02 WBC 19.1 H RBC 3.56 L Hgb 10.0 L D Hct MCH MCHC RDW 17.0 H Plt Count 712 H Lymph % (Auto) [place] % (Auto) Lymph # (Auto) [place] # (Auto) Seg Neutrophils % Seg Neuts % (Manual) Lymphocytes % (Manual) Monocytes % (Manual) Nucleated RBC % Seg Neutrophils # Seg Neutrophils # Man Lymphocytes # (Manual) Monocytes # (Manual) PT INR D-Dimer ABG pH ABG pO2 ABG HCO3 ABG O2 Saturation ABG Base Excess ABG Hemoglobin Oxyhemoglobin Sodium Potassium Chloride Carbon Dioxide BUN 37 H Creatinine 1.5 H Glucose 172 H POC Glucose 158 H Lactic Acid Calcium 8.1 L Phosphorus Magnesium Ferritin ALT Lactate Dehydrogenase Total Creatine Kinase C-Reactive Protein Total Protein Albumin Urine Blood Urine WBC (Auto) U Epithel Cells (Auto) Crossmatch 10/12/21 10/12/21 10/12/21 06:02 06:05 17:43 WBC RBC Hgb Hct MCH MCHC RDW Plt Count Lymph % (Auto) [place] % (Auto) Lymph # (Auto) [place] # (Auto) Seg Neutrophils % Seg Neuts % (Manual) Lymphocytes % (Manual) Monocytes % (Manual) Nucleated RBC % Seg Neutrophils # Seg Neutrophils # Man Lymphocytes # (Manual) Monocytes # (Manual) PT 17.1 H INR 1.24 H D-Dimer ABG pH ABG pO2 ABG HCO3 ABG O2 Saturation ABG Base Excess ABG Hemoglobin Oxyhemoglobin Sodium Potassium Chloride Carbon Dioxide BUN Creatinine Glucose POC Glucose 173 H Lactic Acid Calcium Phosphorus Magnesium Ferritin ALT Lactate Dehydrogenase Total Creatine Kinase C-Reactive Protein Total Protein Albumin Urine Blood Urine WBC (Auto) U Epithel Cells (Auto) Crossmatch See Detail 10/12/21 10/12/21 10/13/21 23:28 Unknown 04:05 WBC RBC Hgb 10.0 L Hct MCH MCHC RDW Plt Count Lymph % (Auto) [place] % (Auto) Lymph # (Auto) [place] # (Auto) Seg Neutrophils % Seg Neuts % (Manual) Lymphocytes % (Manual) Monocytes % (Manual) Nucleated RBC % Seg Neutrophils # Seg Neutrophils # Man Lymphocytes # (Manual) Monocytes # (Manual) PT INR D-Dimer ABG pH ABG pO2 ABG HCO3 ABG O2 Saturation ABG Base Excess ABG Hemoglobin Oxyhemoglobin Sodium Potassium Chloride Carbon Dioxide BUN 34 H Creatinine Glucose 200 H POC Glucose 178 H Lactic Acid Calcium 7.5 L Phosphorus Magnesium 1.60 L Ferritin ALT Lactate Dehydrogenase Total Creatine Kinase C-Reactive Protein Total Protein Albumin Urine Blood Urine WBC (Auto) U Epithel Cells (Auto) Crossmatch 10/13/21 10/13/21 10/13/21 05:09 10:55 13:34 WBC 23.8 H RBC 3.14 L Hgb 9.2 L Hct 27.7 L MCH MCHC RDW 17.5 H Plt Count 572 H Lymph % (Auto) [place] % (Auto) Lymph # (Auto) [place] # (Auto) Seg Neutrophils % Seg Neuts % (Manual) Lymphocytes % (Manual) Monocytes % (Manual) Nucleated RBC % Seg Neutrophils # Seg Neutrophils # Man Lymphocytes # (Manual) Monocytes # (Manual) PT INR D-Dimer ABG pH ABG pO2 ABG HCO3 ABG O2 Saturation ABG Base Excess ABG Hemoglobin Oxyhemoglobin Sodium Potassium Chloride Carbon Dioxide BUN Creatinine Glucose POC Glucose 210 H 168 H Lactic Acid Calcium Phosphorus Magnesium Ferritin ALT Lactate Dehydrogenase Total Creatine Kinase C-Reactive Protein Total Protein Albumin Urine Blood Urine WBC (Auto) U Epithel Cells (Auto) Crossmatch 10/13/21 10/13/21 10/14/21 15:35 23:10 04:05 WBC 19.4 H RBC 2.98 L Hgb 8.4 L Hct 26.3 L MCH MCHC RDW 17.1 H Plt Count 561 H Lymph % (Auto) [place] % (Auto) Lymph # (Auto) [place] # (Auto) Seg Neutrophils % Seg Neuts % (Manual) Lymphocytes % (Manual) Monocytes % (Manual) Nucleated RBC % Seg Neutrophils # Seg Neutrophils # Man Lymphocytes # (Manual) Monocytes # (Manual) PT INR D-Dimer ABG pH ABG pO2 ABG HCO3 ABG O2 Saturation ABG Base Excess ABG Hemoglobin Oxyhemoglobin Sodium Potassium Chloride Carbon Dioxide BUN Creatinine Glucose POC Glucose 154 H 135 H Lactic Acid Calcium Phosphorus Magnesium Ferritin ALT Lactate Dehydrogenase Total Creatine Kinase C-Reactive Protein Total Protein Albumin Urine Blood Urine WBC (Auto) U Epithel Cells (Auto) Crossmatch 10/14/21 10/14/21 10/14/21 04:05 04:05 05:08 WBC RBC Hgb Hct MCH MCHC RDW Plt Count Lymph % (Auto) [place] % (Auto) Lymph # (Auto) [place] # (Auto) Seg Neutrophils % Seg Neuts % (Manual) Lymphocytes % (Manual) Monocytes % (Manual) Nucleated RBC % Seg Neutrophils # Seg Neutrophils # Man Lymphocytes # (Manual) Monocytes # (Manual) PT 19.0 H INR 1.41 H D-Dimer ABG pH ABG pO2 ABG HCO3 ABG O2 Saturation ABG Base Excess ABG Hemoglobin Oxyhemoglobin Sodium Potassium Chloride Carbon Dioxide BUN 33 H Creatinine Glucose 310 H POC Glucose 178 H Lactic Acid Calcium 7.4 L Phosphorus Magnesium Ferritin ALT Lactate Dehydrogenase Total Creatine Kinase C-Reactive Protein Total Protein Albumin Urine Blood Urine WBC (Auto) U Epithel Cells (Auto) Crossmatch 10/14/21 10/14/21 10/14/21 09:29 10:45 11:40 WBC RBC Hgb Hct MCH MCHC RDW Plt Count Lymph % (Auto) [place] % (Auto) Lymph # (Auto) [place] # (Auto) Seg Neutrophils % Seg Neuts % (Manual) Lymphocytes % (Manual) Monocytes % (Manual) Nucleated RBC % Seg Neutrophils # Seg Neutrophils # Man Lymphocytes # (Manual) Monocytes # (Manual) PT INR D-Dimer ABG pH 7.342 L ABG pO2 96.0 H ABG HCO3 26.2 H ABG O2 Saturation ABG Base Excess ABG Hemoglobin 6.1 L Oxyhemoglobin 94.9 L Sodium Potassium Chloride Carbon Dioxide BUN Creatinine Glucose POC Glucose 155 H 137 H Lactic Acid Calcium Phosphorus Magnesium Ferritin ALT Lactate Dehydrogenase Total Creatine Kinase C-Reactive Protein Total Protein Albumin Urine Blood Urine WBC (Auto) U Epithel Cells (Auto) Crossmatch 10/14/21 10/14/21 10/14/21 15:40 21:21 23:46 WBC RBC Hgb Hct MCH MCHC RDW Plt Count Lymph % (Auto) [place] % (Auto) Lymph # (Auto) [place] # (Auto) Seg Neutrophils % Seg Neuts % (Manual) Lymphocytes % (Manual) Monocytes % (Manual) Nucleated RBC % Seg Neutrophils # Seg Neutrophils # Man Lymphocytes # (Manual) Monocytes # (Manual) PT INR D-Dimer ABG pH ABG pO2 ABG HCO3 ABG O2 Saturation ABG Base Excess ABG Hemoglobin Oxyhemoglobin Sodium Potassium Chloride Carbon Dioxide BUN Creatinine Glucose POC Glucose 140 H 111 H 164 H Lactic Acid Calcium Phosphorus Magnesium Ferritin ALT Lactate Dehydrogenase Total Creatine Kinase C-Reactive Protein Total Protein Albumin Urine Blood Urine WBC (Auto) U Epithel Cells (Auto) Crossmatch 10/15/21 10/15/21 10/15/21 05:06 05:40 05:40 WBC 22.7 H RBC 2.94 L Hgb 8.7 L Hct 25.8 L MCH MCHC RDW 17.2 H Plt Count 620 H Lymph % (Auto) [place] % (Auto) Lymph # (Auto) [place] # (Auto) Seg Neutrophils % Seg Neuts % (Manual) Lymphocytes % (Manual) Monocytes % (Manual) Nucleated RBC % Seg Neutrophils # Seg Neutrophils # Man Lymphocytes # (Manual) Monocytes # (Manual) PT INR D-Dimer ABG pH ABG pO2 ABG HCO3 ABG O2 Saturation ABG Base Excess ABG Hemoglobin Oxyhemoglobin Sodium Potassium Chloride Carbon Dioxide BUN 30 H Creatinine Glucose 175 H POC Glucose 155 H Lactic Acid Calcium 7.4 L Phosphorus Magnesium Ferritin ALT Lactate Dehydrogenase Total Creatine Kinase C-Reactive Protein Total Protein Albumin Urine Blood Urine WBC (Auto) U Epithel Cells (Auto) Crossmatch 10/15/21 10/15/21 10/15/21 11:32 17:23 23:35 WBC RBC Hgb Hct MCH MCHC RDW Plt Count Lymph % (Auto) [place] % (Auto) Lymph # (Auto) [place] # (Auto) Seg Neutrophils % Seg Neuts % (Manual) Lymphocytes % (Manual) Monocytes % (Manual) Nucleated RBC % Seg Neutrophils # Seg Neutrophils # Man Lymphocytes # (Manual) Monocytes # (Manual) PT INR D-Dimer ABG pH ABG pO2 ABG HCO3 ABG O2 Saturation ABG Base Excess ABG Hemoglobin Oxyhemoglobin Sodium Potassium Chloride Carbon Dioxide BUN Creatinine Glucose POC Glucose 157 H 136 H 143 H Lactic Acid Calcium Phosphorus Magnesium Ferritin ALT Lactate Dehydrogenase Total Creatine Kinase C-Reactive Protein Total Protein Albumin Urine Blood Urine WBC (Auto) U Epithel Cells (Auto) Crossmatch 10/16/21 10/16/21 10/16/21 04:00 04:00 05:08 WBC 18.0 H RBC 2.80 L Hgb 8.0 L Hct 24.7 L MCH MCHC RDW 17.4 H Plt Count 543 H Lymph % (Auto) [place] % (Auto) Lymph # (Auto) [place] # (Auto) Seg Neutrophils % Seg Neuts % (Manual) Lymphocytes % (Manual) Monocytes % (Manual) Nucleated RBC % Seg Neutrophils # Seg Neutrophils # Man Lymphocytes # (Manual) Monocytes # (Manual) PT INR D-Dimer ABG pH ABG pO2 ABG HCO3 ABG O2 Saturation ABG Base Excess ABG Hemoglobin Oxyhemoglobin Sodium Potassium Chloride Carbon Dioxide BUN 31 H Creatinine Glucose 153 H POC Glucose 149 H Lactic Acid Calcium 8.0 L Phosphorus Magnesium Ferritin ALT Lactate Dehydrogenase Total Creatine Kinase C-Reactive Protein Total Protein 5.5 L Albumin 1.9 L Urine Blood Urine WBC (Auto) U Epithel Cells (Auto) Crossmatch 10/16/21 10/16/21 10/16/21 11:45 17:37 23:48 WBC RBC Hgb Hct MCH MCHC RDW Plt Count Lymph % (Auto) [place] % (Auto) Lymph # (Auto) [place] # (Auto) Seg Neutrophils % Seg Neuts % (Manual) Lymphocytes % (Manual) Monocytes % (Manual) Nucleated RBC % Seg Neutrophils # Seg Neutrophils # Man Lymphocytes # (Manual) Monocytes # (Manual) PT INR D-Dimer ABG pH ABG pO2 ABG HCO3 ABG O2 Saturation ABG Base Excess ABG Hemoglobin Oxyhemoglobin Sodium Potassium Chloride Carbon Dioxide BUN Creatinine Glucose POC Glucose 144 H 130 H 134 H Lactic Acid Calcium Phosphorus Magnesium Ferritin ALT Lactate Dehydrogenase Total Creatine Kinase C-Reactive Protein Total Protein Albumin Urine Blood Urine WBC (Auto) U Epithel Cells (Auto) Crossmatch 10/17/21 10/17/21 10/17/21 04:00 04:00 05:37 WBC 14.0 H RBC 2.46 L Hgb 7.2 L Hct 21.7 L MCH MCHC RDW 17.4 H Plt Count 526 H Lymph % (Auto) [place] % (Auto) Lymph # (Auto) [place] # (Auto) Seg Neutrophils % Seg Neuts % (Manual) Lymphocytes % (Manual) Monocytes % (Manual) Nucleated RBC % Seg Neutrophils # Seg Neutrophils # Man Lymphocytes # (Manual) Monocytes # (Manual) PT INR D-Dimer ABG pH ABG pO2 ABG HCO3 ABG O2 Saturation ABG Base Excess ABG Hemoglobin Oxyhemoglobin Sodium Potassium Chloride Carbon Dioxide BUN 29 H Creatinine Glucose 138 H POC Glucose 137 H Lactic Acid Calcium 7.5 L Phosphorus Magnesium Ferritin ALT Lactate Dehydrogenase Total Creatine Kinase C-Reactive Protein Total Protein Albumin Urine Blood Urine WBC (Auto) U Epithel Cells (Auto) Crossmatch 10/17/21 10/17/21 10/17/21 11:45 12:50 16:13 WBC RBC Hgb Hct MCH MCHC RDW Plt Count Lymph % (Auto) [place] % (Auto) Lymph # (Auto) [place] # (Auto) Seg Neutrophils % Seg Neuts % (Manual) Lymphocytes % (Manual) Monocytes % (Manual) Nucleated RBC % Seg Neutrophils # Seg Neutrophils # Man Lymphocytes # (Manual) Monocytes # (Manual) PT INR D-Dimer ABG pH ABG pO2 ABG HCO3 ABG O2 Saturation ABG Base Excess ABG Hemoglobin Oxyhemoglobin Sodium Potassium Chloride Carbon Dioxide BUN Creatinine Glucose POC Glucose 145 H 128 H Lactic Acid Calcium Phosphorus Magnesium Ferritin ALT Lactate Dehydrogenase Total Creatine Kinase C-Reactive Protein Total Protein Albumin Urine Blood Urine WBC (Auto) U Epithel Cells (Auto) Crossmatch See Detail 10/17/21 10/18/21 10/18/21 23:46 04:28 04:28 WBC 16.6 H RBC 2.81 L Hgb 8.4 L Hct 24.4 L MCH MCHC RDW 16.8 H Plt Count 516 H Lymph % (Auto) [place] % (Auto) Lymph # (Auto) [place] # (Auto) Seg Neutrophils % Seg Neuts % (Manual) Lymphocytes % (Manual) Monocytes % (Manual) Nucleated RBC % Seg Neutrophils # Seg Neutrophils # Man Lymphocytes # (Manual) Monocytes # (Manual) PT INR D-Dimer ABG pH ABG pO2 ABG HCO3 ABG O2 Saturation ABG Base Excess ABG Hemoglobin Oxyhemoglobin Sodium Potassium Chloride Carbon Dioxide BUN 26 H Creatinine Glucose 144 H POC Glucose 124 H Lactic Acid Calcium 7.5 L Phosphorus Magnesium Ferritin ALT 6 L Lactate Dehydrogenase Total Creatine Kinase C-Reactive Protein Total Protein 6.1 L Albumin 2.0 L Urine Blood Urine WBC (Auto) U Epithel Cells (Auto) Crossmatch 10/18/21 10/18/21 10/18/21 05:19 11:34 11:40 WBC RBC Hgb Hct MCH MCHC RDW Plt Count Lymph % (Auto) [place] % (Auto) Lymph # (Auto) [place] # (Auto) Seg Neutrophils % Seg Neuts % (Manual) Lymphocytes % (Manual) Monocytes % (Manual) Nucleated RBC % Seg Neutrophils # Seg Neutrophils # Man Lymphocytes # (Manual) Monocytes # (Manual) PT INR D-Dimer ABG pH 7.466 H ABG pO2 90.6 H ABG HCO3 29.0 H ABG O2 Saturation ABG Base Excess 4.9 H ABG Hemoglobin 8.6 L Oxyhemoglobin Sodium Potassium Chloride Carbon Dioxide BUN Creatinine Glucose POC Glucose 128 H Lactic Acid Calcium Phosphorus Magnesium Ferritin ALT Lactate Dehydrogenase Total Creatine Kinase C-Reactive Protein Total Protein Albumin Urine Blood Moderate A Urine WBC (Auto) 50.0 H U Epithel Cells (Auto) Crossmatch 10/18/21 10/18/21 10/19/21 12:20 16:18 01:28 WBC RBC Hgb Hct MCH MCHC RDW Plt Count Lymph % (Auto) [place] % (Auto) Lymph # (Auto) [place] # (Auto) Seg Neutrophils % Seg Neuts % (Manual) Lymphocytes % (Manual) Monocytes % (Manual) Nucleated RBC % Seg Neutrophils # Seg Neutrophils # Man Lymphocytes # (Manual) Monocytes # (Manual) PT INR D-Dimer ABG pH ABG pO2 ABG HCO3 ABG O2 Saturation ABG Base Excess ABG Hemoglobin Oxyhemoglobin Sodium Potassium Chloride Carbon Dioxide BUN Creatinine Glucose POC Glucose 151 H 139 H 126 H Lactic Acid Calcium Phosphorus Magnesium Ferritin ALT Lactate Dehydrogenase Total Creatine Kinase C-Reactive Protein Total Protein Albumin Urine Blood Urine WBC (Auto) U Epithel Cells (Auto) Crossmatch 10/19/21 10/19/21 10/19/21 04:23 04:23 04:23 WBC 16.0 H RBC 3.04 L Hgb 8.7 L Hct 26.3 L MCH MCHC RDW 16.9 H Plt Count 500 H Lymph % (Auto) [place] % (Auto) Lymph # (Auto) [place] # (Auto) Seg Neutrophils % Seg Neuts % (Manual) Lymphocytes % (Manual) Monocytes % (Manual) Nucleated RBC % Seg Neutrophils # Seg Neutrophils # Man Lymphocytes # (Manual) Monocytes # (Manual) PT INR D-Dimer ABG pH ABG pO2 ABG HCO3 ABG O2 Saturation ABG Base Excess ABG Hemoglobin Oxyhemoglobin Sodium Potassium Chloride Carbon Dioxide BUN 20 H Creatinine Glucose 138 H POC Glucose Lactic Acid Calcium 7.8 L Phosphorus 1.80 L D Magnesium 1.60 L Ferritin ALT Lactate Dehydrogenase Total Creatine Kinase C-Reactive Protein Total Protein Albumin Urine Blood Urine WBC (Auto) U Epithel Cells (Auto) Crossmatch 10/19/21 10/19/21 10/19/21 14:11 18:05 21:42 WBC RBC Hgb Hct MCH MCHC RDW Plt Count Lymph % (Auto) [place] % (Auto) Lymph # (Auto) [place] # (Auto) Seg Neutrophils % Seg Neuts % (Manual) Lymphocytes % (Manual) Monocytes % (Manual) Nucleated RBC % Seg Neutrophils # Seg Neutrophils # Man Lymphocytes # (Manual) Monocytes # (Manual) PT INR D-Dimer ABG pH ABG pO2 ABG HCO3 ABG O2 Saturation ABG Base Excess ABG Hemoglobin Oxyhemoglobin Sodium Potassium Chloride Carbon Dioxide BUN Creatinine Glucose POC Glucose 161 H 162 H 112 H Lactic Acid Calcium Phosphorus Magnesium Ferritin ALT Lactate Dehydrogenase Total Creatine Kinase C-Reactive Protein Total Protein Albumin Urine Blood Urine WBC (Auto) U Epithel Cells (Auto) Crossmatch 10/20/21 10/20/21 10/20/21 00:01 05:39 11:41 WBC 20.2 H RBC 2.81 L Hgb 8.5 L Hct 24.3 L MCH MCHC 35 H RDW 16.8 H Plt Count 481 H Lymph % (Auto) [place] % (Auto) Lymph # (Auto) [place] # (Auto) Seg Neutrophils % Seg Neuts % (Manual) Lymphocytes % (Manual) Monocytes % (Manual) Nucleated RBC % Seg Neutrophils # Seg Neutrophils # Man Lymphocytes # (Manual) Monocytes # (Manual) PT INR D-Dimer ABG pH ABG pO2 ABG HCO3 ABG O2 Saturation ABG Base Excess ABG Hemoglobin Oxyhemoglobin Sodium Potassium Chloride Carbon Dioxide BUN Creatinine Glucose POC Glucose 152 H 117 H Lactic Acid Calcium Phosphorus Magnesium Ferritin ALT Lactate Dehydrogenase Total Creatine Kinase C-Reactive Protein Total Protein Albumin Urine Blood Urine WBC (Auto) U Epithel Cells (Auto) Crossmatch 10/20/21 10/20/21 10/20/21 11:41 11:50 17:31 WBC RBC Hgb Hct MCH MCHC RDW Plt Count Lymph % (Auto) [place] % (Auto) Lymph # (Auto) [place] # (Auto) Seg Neutrophils % Seg Neuts % (Manual) Lymphocytes % (Manual) Monocytes % (Manual) Nucleated RBC % Seg Neutrophils # Seg Neutrophils # Man Lymphocytes # (Manual) Monocytes # (Manual) PT INR D-Dimer ABG pH ABG pO2 ABG HCO3 ABG O2 Saturation ABG Base Excess ABG Hemoglobin Oxyhemoglobin Sodium Potassium Chloride Carbon Dioxide BUN 20 H Creatinine Glucose 123 H POC Glucose 120 H 125 H Lactic Acid Calcium 7.7 L Phosphorus 2.00 L Magnesium Ferritin ALT Lactate Dehydrogenase Total Creatine Kinase C-Reactive Protein Total Protein Albumin Urine Blood Urine WBC (Auto) U Epithel Cells (Auto) Crossmatch 10/20/21 10/21/21 10/21/21 23:25 04:30 04:30 WBC 23.2 H RBC 2.70 L Hgb 7.9 L Hct 23.2 L MCH MCHC RDW 17.2 H Plt Count Lymph % (Auto) [place] % (Auto) Lymph # (Auto) [place] # (Auto) Seg Neutrophils % Seg Neuts % (Manual) Lymphocytes % (Manual) Monocytes % (Manual) Nucleated RBC % Seg Neutrophils # Seg Neutrophils # Man Lymphocytes # (Manual) Monocytes # (Manual) PT INR D-Dimer ABG pH ABG pO2 ABG HCO3 ABG O2 Saturation ABG Base Excess ABG Hemoglobin Oxyhemoglobin Sodium Potassium Chloride Carbon Dioxide BUN 22 H Creatinine Glucose 117 H POC Glucose 119 H Lactic Acid Calcium 7.7 L Phosphorus Magnesium Ferritin ALT Lactate Dehydrogenase Total Creatine Kinase C-Reactive Protein Total Protein Albumin Urine Blood Urine WBC (Auto) U Epithel Cells (Auto) Crossmatch 10/21/21 10/21/21 10/21/21 05:26 09:05 11:27 WBC RBC Hgb Hct MCH MCHC RDW Plt Count Lymph % (Auto) [place] % (Auto) Lymph # (Auto) [place] # (Auto) Seg Neutrophils % Seg Neuts % (Manual) Lymphocytes % (Manual) Monocytes % (Manual) Nucleated RBC % Seg Neutrophils # Seg Neutrophils # Man Lymphocytes # (Manual) Monocytes # (Manual) PT INR D-Dimer ABG pH 7.509 H ABG pO2 60.3 L ABG HCO3 26.2 H ABG O2 Saturation ABG Base Excess ABG Hemoglobin 6.7 L Oxyhemoglobin Sodium Potassium Chloride Carbon Dioxide BUN Creatinine Glucose POC Glucose 111 H 114 H Lactic Acid Calcium Phosphorus Magnesium Ferritin ALT Lactate Dehydrogenase Total Creatine Kinase C-Reactive Protein Total Protein Albumin Urine Blood Urine WBC (Auto) U Epithel Cells (Auto) Crossmatch 10/21/21 10/21/21 10/22/21 16:45 23:13 05:25 WBC 21.7 H RBC 2.55 L Hgb 7.5 L Hct 22.3 L MCH MCHC RDW 16.8 H Plt Count Lymph % (Auto) [place] % (Auto) Lymph # (Auto) [place] # (Auto) Seg Neutrophils % Seg Neuts % (Manual) 86.0 H Lymphocytes % (Manual) 7.0 L Monocytes % (Manual) Nucleated RBC % Seg Neutrophils # Seg Neutrophils # Man 18.7 H Lymphocytes # (Manual) Monocytes # (Manual) 1.5 H PT INR D-Dimer ABG pH ABG pO2 ABG HCO3 ABG O2 Saturation ABG Base Excess ABG Hemoglobin Oxyhemoglobin Sodium Potassium Chloride Carbon Dioxide BUN Creatinine Glucose POC Glucose 117 H 125 H Lactic Acid Calcium Phosphorus Magnesium Ferritin ALT Lactate Dehydrogenase Total Creatine Kinase C-Reactive Protein Total Protein Albumin Urine Blood Urine WBC (Auto) U Epithel Cells (Auto) Crossmatch 10/22/21 10/22/21 10/22/21 09:02 09:02 11:07 WBC 17.2 H RBC 2.51 L Hgb 7.1 L Hct 21.9 L MCH MCHC RDW 17.2 H Plt Count Lymph % (Auto) 4.7 L [place] % (Auto) 10.2 H Lymph # (Auto) 0.8 L [place] # (Auto) 1.8 H Seg Neutrophils % 84.5 H Seg Neuts % (Manual) Lymphocytes % (Manual) Monocytes % (Manual) Nucleated RBC % Seg Neutrophils # 14.5 H Seg Neutrophils # Man Lymphocytes # (Manual) Monocytes # (Manual) PT INR D-Dimer ABG pH ABG pO2 ABG HCO3 ABG O2 Saturation ABG Base Excess ABG Hemoglobin Oxyhemoglobin Sodium 134 L Potassium Chloride Carbon Dioxide BUN 23 H Creatinine Glucose 117 H POC Glucose 115 H Lactic Acid Calcium 8.1 L Phosphorus Magnesium Ferritin ALT Lactate Dehydrogenase Total Creatine Kinase C-Reactive Protein Total Protein Albumin Urine Blood Urine WBC (Auto) U Epithel Cells (Auto) Crossmatch 10/22/21 10/22/21 10/22/21 16:05 23:15 Unknown WBC RBC Hgb Hct MCH MCHC RDW Plt Count Lymph % (Auto) [place] % (Auto) Lymph # (Auto) [place] # (Auto) Seg Neutrophils % Seg Neuts % (Manual) Lymphocytes % (Manual) Monocytes % (Manual) Nucleated RBC % Seg Neutrophils # Seg Neutrophils # Man Lymphocytes # (Manual) Monocytes # (Manual) PT INR D-Dimer ABG pH ABG pO2 ABG HCO3 ABG O2 Saturation ABG Base Excess ABG Hemoglobin Oxyhemoglobin Sodium 135 L Potassium Chloride Carbon Dioxide BUN 23 H Creatinine Glucose 112 H POC Glucose 123 H 114 H Lactic Acid Calcium 8.2 L Phosphorus Magnesium Ferritin ALT Lactate Dehydrogenase Total Creatine Kinase C-Reactive Protein Total Protein Albumin Urine Blood Urine WBC (Auto) U Epithel Cells (Auto) Crossmatch 10/23/21 10/23/21 10/23/21 04:56 04:56 05:28 WBC 16.5 H RBC 2.46 L Hgb 7.1 L Hct 21.4 L MCH MCHC RDW 16.9 H Plt Count Lymph % (Auto) Faulk % (Auto) Lymph # (Auto) Faulk # (Auto) Seg Neutrophils % Seg Neuts % (Manual) Lymphocytes % (Manual) Monocytes % (Manual) Nucleated RBC % Seg Neutrophils # Seg Neutrophils # Man Lymphocytes # (Manual) Monocytes # (Manual) PT INR D-Dimer ABG pH ABG pO2 ABG HCO3 ABG O2 Saturation ABG Base Excess ABG Hemoglobin Oxyhemoglobin Sodium Potassium Chloride Carbon Dioxide 21 L BUN 25 H Creatinine Glucose 123 H POC Glucose 130 H Lactic Acid Calcium 8.3 L Phosphorus Magnesium Ferritin ALT Lactate Dehydrogenase Total Creatine Kinase C-Reactive Protein Total Protein Albumin Urine Blood Urine WBC (Auto) U Epithel Cells (Auto) Crossmatch Allied health notes reviewed: RT
[2021-10-23] MEDS: HYDROmorphone 1 MG/1 ML INJ IV PRN ×2 (11:18→19:53)
--- NOTE | 2021-10-23 11:28 | Progress Note ---
Assessment and Plan Cultures: 09/24/2021 blood culture: No growth 09/30/2021 YURIDIA drain wound culture: VRE - Enterococcus faecium 10/08/2021 blood culture: No growth 10/11/2021 intra-abdominal surgical culture: Jo Ann albicans, MSSA, Stenotrophomonas 10/12/2021 tracheal culture: No growth 10/18/2021 blood culture: no growth 10/18/2021 urine culture: no growth 10/18/2021 sputum culture: Stenotrophomonas A/P: 31-year-old female past medical history obesity, nephrolithiasis admitted with: #Sepsis: Secondary to intra-abdominal infection. 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 pna, fluid overload more likely. Extubated 08/20/2021. Cultures growing Stenotrophomonas. #Leukocytosis, reactive thrombocytosis: downtrending. #BRYANNA: resolved. #Obesity Recs: -continue with fluconazole, Bactrim, plan to stop on Monday -consider diuretics Mónica Swan MD, FACP, [facility] ([facility] O: [phone] F: [phone] C: [phone] Subjective Date of service: 10/23/21 Principal diagnosis: BRYANNA Interval history: Low grade fever yesterday, none today. Back on BiPAP. Remains with NG tube to suction. Objective - Exam Narrative Exam: Physical Exam: Constitutional: Awake, alert, mild distress Head, Ears, Nose: Normocephalic, atraumatic. External ears, nose normal Eyes: Conjunctivae/corneas clear. No icterus. No ptosis. Neck: supple Cardiovascular: S1, S2 + Respiratory: AE fair bilaterally, with b/l rhonchi GI: Soft, dressing, drain present, colostomy present Musculoskeletal: Obese, edema present Skin: No rash or abscess Hem/Lymphatic: No palpable cervical or supraclavicular nodes. No lymphangitis Psych: calm Neurological: Awake, alert, answering questions - Constitutional Vitals: Vital Signs Temp Pulse Resp BP Pulse Ox 98.4 F 79 38 H 128/86 92 10/23/21 08:00 10/23/21 10:00 10/23/21 10:00 10/23/21 10:00 10/23/21 10:00 Temperature -Last 24 Hours Temperature 98.4 F Temperature 98.3 F Temperature 98.9 F Temperature 99.9 F Temperature 100.6 F - Labs CBC & Chem 7: 10/23/21 04:56 10/23/21 04:56 Labs: Abnormal lab results 10/22/21 10/22/21 10/22/21 Range/Units 11:07 16:05 23:15 WBC (4.5-11.0) K/mm3 RBC (3.65-5.03) M/mm3 Hgb (10.1-14.3) gm/dl Hct (30.3-42.9) % RDW (13.2-15.2) % Carbon Dioxide (22-30) mmol/L BUN (7-17) mg/dL Glucose (65-100) mg/dL POC Glucose 115 H 123 H 114 H (70-105) mg/dL Calcium (8.4-10.2) mg/dL 10/23/21 10/23/21 10/23/21 Range/Units 04:56 04:56 05:28 WBC 16.5 H (4.5-11.0) K/mm3 RBC 2.46 L (3.65-5.03) M/mm3 Hgb 7.1 L (10.1-14.3) gm/dl Hct 21.4 L (30.3-42.9) % RDW 16.9 H (13.2-15.2) % Carbon Dioxide 21 L (22-30) mmol/L BUN 25 H (7-17) mg/dL Glucose 123 H (65-100) mg/dL POC Glucose 130 H (70-105) mg/dL Calcium 8.3 L (8.4-10.2) mg/dL
--- NOTE | 2021-10-23 14:01 | Progress Note ---
Assessment and Plan Postop day #9 status post colostomy creation with closure of abdomen. Patient is afebrile and resolved tachycardia. Leukocytosis improving. Awaiting full return of bowel function. Sputum culture positive for gram-negative rods. Patient is on appropriate antibiotics for sensitivity. Continue per ID. Respiratory insufficiency - continue BIPAP per pulmonary prn. Once patient is better from a respiratory standpoint would like to resume physical therapy out of bed to chair. Once making better output from colostomy we will do NG tube clamping trials. Creatinine has normalized she is making good urine output. Continue supportive care. Postop day #12 status post colorectal anastomosis takedown, with abdominal washout and ABThera wound VAC. Postop day #20 status post laparoscopic converted to open left hemicolectomy with appendectomy for perforated appendicitis with fistulization to sigmoid colon. Subjective Date of service: 10/23/21 Narrative: No acute events overnight. Pt had CT chest, abdomen and pelvis that were essentially unremarkable with the exception of small amount of fluid at her lung bases. She has been able to be weaned off BIPAP intermittently. She says she is feeling better compared to yesterday. Objective Vital Signs - 12hr 10/23/21 10/23/21 10/23/21 02:00 02:30 03:00 Temperature Pulse Rate 85 81 84 Pulse Rate [ From Monitor] Respiratory 41 H 39 H 44 H Rate Blood Pressure 109/69 118/74 126/83 O2 Sat by Pulse 87 88 90 Oximetry 10/23/21 10/23/21 10/23/21 03:19 03:30 04:00 Temperature 98.3 F Pulse Rate 82 82 Pulse Rate [ 80 From Monitor] Respiratory 41 H 42 H Rate Blood Pressure 115/72 100/58 O2 Sat by Pulse 90 89 Oximetry 10/23/21 10/23/21 10/23/21 04:30 05:00 05:30 Temperature Pulse Rate 81 78 76 Pulse Rate [ From Monitor] Respiratory 41 H 41 H 40 H Rate Blood Pressure 112/73 108/69 119/77 O2 Sat by Pulse 96 95 94 Oximetry 10/23/21 10/23/21 10/23/21 06:00 06:30 07:00 Temperature Pulse Rate 78 77 78 Pulse Rate [ From Monitor] Respiratory 42 H 38 H 37 H Rate Blood Pressure 108/70 121/78 128/87 O2 Sat by Pulse 94 90 97 Oximetry 10/23/21 10/23/21 10/23/21 07:27 07:30 08:00 Temperature 98.4 F Pulse Rate 77 77 80 Pulse Rate [ 80 From Monitor] Respiratory 41 H 44 H 32 H Rate Blood Pressure 132/89 126/87 120/79 O2 Sat by Pulse 95 90 98 Oximetry 10/23/21 10/23/21 10/23/21 08:30 09:00 09:30 Temperature Pulse Rate 77 77 80 Pulse Rate [ From Monitor] Respiratory 41 H 43 H 22 Rate Blood Pressure 123/83 121/83 122/88 O2 Sat by Pulse 96 96 96 Oximetry 10/23/21 10/23/21 10/23/21 10:00 10:30 11:00 Temperature Pulse Rate 79 80 84 Pulse Rate [ From Monitor] Respiratory 38 H 39 H 27 H Rate Blood Pressure 128/86 122/82 127/84 O2 Sat by Pulse 92 95 95 Oximetry 10/23/21 10/23/21 10/23/21 11:30 12:00 12:30 Temperature 97.6 F Pulse Rate 91 H 86 85 Pulse Rate [ 82 From Monitor] Respiratory 29 H 32 H 24 Rate Blood Pressure 131/95 131/91 130/87 O2 Sat by Pulse 94 93 96 Oximetry 10/23/21 13:00 Temperature Pulse Rate 79 Pulse Rate [ From Monitor] Respiratory 36 H Rate Blood Pressure 131/91 O2 Sat by Pulse 97 Oximetry - General physical appearance well developed, no distress, no pain - Respiratory normal expansion, normal respiratory effort - Abdomen soft, not tender, other (midline incision intact with small amount of serous drainage, YURIDIA drain clear serous, left side drain unchanged, ostomy pink with green drainage. no air in bag) - Labs 10/23/21 04:56 10/23/21 04:56 Diabetes panel 10/23/21 Range/Units 04:56 Sodium 139 (137-145) mmol/L Potassium 4.2 (3.6-5.0) mmol/L Chloride 106.2 (98-107) mmol/L Carbon Dioxide 21 L (22-30) mmol/L BUN 25 H (7-17) mg/dL Creatinine 0.9 (0.6-1.2) mg/dL Glucose 123 H (65-100) mg/dL Calcium 8.3 L (8.4-10.2) mg/dL Calcium panel 10/23/21 Range/Units 04:56 Calcium 8.3 L (8.4-10.2) mg/dL Phosphorus 3.60 (2.5-4.5) mg/dL Pituitary panel 10/23/21 Range/Units 04:56 Sodium 139 (137-145) mmol/L Potassium 4.2 (3.6-5.0) mmol/L Chloride 106.2 (98-107) mmol/L Carbon Dioxide 21 L (22-30) mmol/L BUN 25 H (7-17) mg/dL Creatinine 0.9 (0.6-1.2) mg/dL Glucose 123 H (65-100) mg/dL Calcium 8.3 L (8.4-10.2) mg/dL Adrenal panel 10/23/21 Range/Units 04:56 Sodium 139 (137-145) mmol/L Potassium 4.2 (3.6-5.0) mmol/L Chloride 106.2 (98-107) mmol/L Carbon Dioxide 21 L (22-30) mmol/L BUN 25 H (7-17) mg/dL Creatinine 0.9 (0.6-1.2) mg/dL Glucose 123 H (65-100) mg/dL Calcium 8.3 L (8.4-10.2) mg/dL
--- NOTE | 2021-10-23 14:30 | Progress Note ---
<CHAD EDEN - Last Filed: 10/23/21 15:20> Assessment and Plan Assessment and plan: This is a 31-year-old female with past medical history of obesity and nephrolithiasis initially admitted to the floor for acute diverticulititis which was complicated by sepsis and acute kidney injury. 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 On 10/08/21 patient developed acute hypoxic respiratory failure requiring ventilatory support, s/p extubation. ICU Course to Date: 10/09: Intubated and sedated, RASS -1 to -2. Recent CXR noted with worsen bilateral opacities with persistent leukocytosis, elevated lactic, and now on 2 pressors. Patient remains afebrile, and already on IV Abx per ID. Will swab patient for COVID. Given recent surgery orders placed for CTA chest, CT Abd/p shannan. And also BLE dopplers due to elevated D-Dimer. Renal function is improving, additional IVF to flush out kidney post contrast, Nephrology is also following. Continue TPN and NGT to LIS. 10/10: COVID PCR negative. CTA chest and Abd/plevis noted. No evidence of PE. Patient received X1 dose of 20mg IV lasix per Nephro for pulmonary edema, this am CXR with some improvement, renal function is also improving. Wean vent setting as tolerated per CCM. Plan for possible CT guided drainage placement in IR tomorrow. Continue TPN and NGT to LIS. 10/11: Patient with anemia, 1 unit PRBC, scheduled for CT-guided drain image of air pocket. Will place on CPAP on return. Slightly worsening renal function but nephrology is on the case. 10/12: Taken to OR today for diverting ileostomy, given 3 units PRBC yesterday and appropriate response. Surgical culture grew yeast and ID added added flu conazole. 10/13: Hypomagnesemia repleted, renal function improving. Patient remains sedated with fentanyl and propofol. Updated sister and father at bedside. Ureteral stents removed at bedside. Plan to to take patient to the OR tomorrow for second look, abdominal washout, colostomy creation on hold for abdominal closure by surgery. We will hold p.m. dose of heparin. 10/14: Plan to take patient back to OR today, prophylactic anticougulation on hold. 2 units prbc on hold for surgery. Plan to close abd and colostomy creation. Vent weaning on hold till abd closure 10/15: Renal function remains stable, leukocytosis increased, remains sedated on propofol and fentanyl and on mechanical ventilation. Plan is to hold SBT until the weekend. Repeat renal ultrasound pending per urology. 10/16: no acute events overnight. remains on fent and propofol. plan to sbt on monday. 10/17: noted drop in hgb from 8 to 7.2 and will given one unit prbc. remains on fent/propofol. CARMEN overnight. Will retract OETT per rad reading. 10/18: Febrile this am with worsen leukocytosis. Continue IV Abx per ID, orders placed for cultures. Patient tolerating PST, d/w CCM plan for possible extubation today. Abdominal insicion and colostomy noted, no signs of any complications noted. Continue TPN and NGT to LIS per General surgery. 10/19: S/p extubation, now stable on 2L NC. Fevers improved, cultures pending continue IV Abx per ID. Patient is still with absent bowel sounds, continue TPN and NGT to LIS per General surg. Okay to remove brantley per Urology. Electrolytes repleted, repeat labs in the am. Patient is stable for transfer to [facility]. 10/20: Continue current management. Patient remained stable on 2 L of oxygen but appears anxious with increased tachypnea. We will add incentive spirometer. W ill check and monitor intermittent x-rays. Continue antibiotics per infectious disease. Renal function has normalized. We will good urine output. We will check blood work in a.m. Awaiting return of bowel function 10/21: Patient on BiPAP this am, xray from yesterday concerning for Aspiration pneumonia vs atalalectsis, patient still with increased WOB although improved compared to yesterday. Leukocytosis a bit worse, will continue to monitor and discuss with ID if more broad spectrum therapy should be considered. She is currently on Bactrim for positive tracheal aspirate with Stenotrophomonas. Continue aspiration precautions. may need repeat xray but will discuss with pulmonary. Continue Strict NPO and Aspiration precautions. Continues on TPN. Prognosis guarded. ?Third spacing 10/22: Back in the ICU due to hypoxia, increased WOB, and tachycardia requiring continuous Bipap. Patient is now on precedex gtt for increased anxiety. Repeat BLE doppler with no evidence of DVT . D/W [facility] paln for CTA chest and CT abd/Pelvis today. Mild improvement in leukocytosis today, patient is afebrile, continue IV Abx per ID. Remains on TPN and NGT to LIS. 10/23: CTA chest and CT Abd/Pelvis noted- no evidence of PE, multiloculated collection along the left mid abdomen have all decreased in size, with persistent anasarca. Will started IV Lasix [id number]. Plan to wean to NC today, continue Bipap Qhs or as needed. Close monitoring of renal function and electrolytes, replete as needed. Plan to Clamp NGT today per General Surgery. Continue TPN. Assessment and Plan #Acute Hypoxic Respiratory Failure #Aspiration Pneumonia #Bilateral Pneumonia Vs Pulmonary Edema -Code met and intubated on 10/08 -10/18 Extubated -Remains on Bipap this am, wean to NC -Keep Bipap Qhs -[facility] consulted, appreciate recommendations -10/22 Repeat [address] chest and CT ABd/Pelvis noted-no evidence of PE, multiloculated collection along the left mid abdomen have all decreased in size, with persistent anasarca -Aspiration precaution HOB above 30 -Continue O2 supplementation and wean as tolerated -Continue SPO2 monitoring for SPO2 goal above 92% #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 post appendectomy #VRE infection #Open left hemicolectomy and partial omentectomy #Peritonitis #Diverticulitis with abscess #Possible Bilateral Pneumonia #Septic Shock-resolved -CT abd/pelvis showed diverticulitis with abscess -General surgery following, assistance appreciated -s/p diagnositic laparatomy and drain placement 09/26/2021 -Returned to the OR on 09/30/2021 for left hemicolectomy, appendectomy, and partial omentectomy -10/09 CT abdomen/pelvis showed a new collection of air within the left midabdomen -10/11 CT guided drain placement in IR- Colonic Anastamosis noted -10/12 status post colorectal anastomosis takedown, with abdominal washout and ABThera wound VAC placement -10/13 status post colostomy creation with closure of abdomen -Wound culture +VRE -10/08 Repeat Blood culture negative, 10/18 Blood culture negative with NGTD; -Continue IV Abx per ID recommendations -Continue TPN/PPN per general surgery -Plan to clamp NGT today -Trend CBC #Acute Kidney Injury 2/2 Vasomotor Nephropathy vs contrast induced-improved -Nephrology consulted, assistance appreciated -Renal function normalized -Strict intake and output -Avoid nephrotoxic medications; Renally dose medications -Monitor and replace electrolytes as needed #Acute blood loss anemia-Resolved #Gross Hematuria-resolved -2/2 to surgical procedures-- c/f ureteral injury -s/p 7 units of pRBCs since admission -Hematuria resolved, H&H stable -Urology consulted, appreciated recommendation -10/12 Intra-Op cystoscopy completed and bilateral ureteral stents placed- removed on 10/13 By Urology -Repeat renal US noted -Okay to remove Brantley per Urology -Continue to monitor for s/s of any active bleeding, trend CBC -transfuse if hemoglobin less than 7 or patient becomes symptomatic #Moderate protein caloric malnutrition -Albumin 1.6 -Continue TPN/PPN per general surgery -Consulting nutrition; appreciate recs #Elevated D-Dimer -BLE doppler with no evidence of any DVT -Continue AC- Heparin subQ #Hyperglycemia -most likely due to TPN/PPN -Continue SSI Q6hrs -Avoid hypoglycemia #Anxiety -On Precedex gtt -Titrate for RASS goal 0 to -1 -Maintenance of sleep-wake cycle -Psych/Mentatl health is following #GI/DVT Prophylaxis -Continue PPI- Pepcid -Continue AC- Heparin subQ -SCDs to bilateral lower extremities while in bed The high probability of a clinically significant, sudden or life threatening deterioration of the [multiple] system(s) required my full and direct attention, intervention and personal management. The aggregate critical care time was [60] minutes. This time is in addition to time spent performing reported procedures but includes the following: [x] Data Review and interpretation [x] Patient assessment and monitoring of vital signs [x] Documentation [x] Medication orders and management Disposition Plan: ICU Total Time Spent with Patient (Minutes): 60 History Interval history: Patient was seen and examined at the bedside. Patient remains stable, on the bipap this am. Patient voiced feeling much better this, c/o of bodyache and soreness which is control with current pain management regimen. Patient remains on precedex gtt for anxiety. Per RN patientn was placed back on Bipap this am due to tachypnea. Otherwise CARMEN overnight Hospitalist Physical - Constitutional Vitals: Temp Pulse Resp BP Pulse Ox 97.6 F 79 36 H 131/91 97 10/23/21 12:00 10/23/21 13:00 10/23/21 13:00 10/23/21 13:00 10/23/21 13:00 General appearance: Present: no acute distress, obese - EENT Eyes: Present: PERRL ENT: hearing intact, other (Dry oral mucosa) - Neck Neck: Present: normal ROM - Respiratory Respiratory effort: normal Respiratory: bilateral: rhonchi - Cardiovascular Rhythm: regular Heart Sounds: Present: S1 & S2 - Extremities Extremities: no ischemia, pulses intact, pulses symmetrical Extremity abnormal: edema - Peripheral Assessment Generalized Edema Type: Pitting Edema Degree: 3+ Capillary Refill: < 3 seconds Skin Temperature: Warm Peripheral Pulses: within normal limits - Abdominal General gastrointestinal: soft, tender, normal bowel sounds, other (NGT to LIS) - Integumentary Integumentary: Present: warm, dry - Psychiatric Psychiatric: appropriate mood/affect, cooperative - Neurologic Neurologic: CNII-XII intact, moves all extremities - Allied Health Allied health notes reviewed: nursing Results - Labs CBC & Chem 7: 10/23/21 04:56 10/23/21 04:56 Labs: Laboratory Last Values WBC 16.5 K/mm3 (4.5-11.0) H 10/23/21 04:56 RBC 2.46 M/mm3 (3.65-5.03) L 10/23/21 04:56 Hgb 7.1 gm/dl (10.1-14.3) L 10/23/21 04:56 Hct 21.4 % (30.3-42.9) L 10/23/21 04:56 MCV 87 fl (79-97) 10/23/21 04:56 MCH 29 pg (28-32) 10/23/21 04:56 MCHC 33 % (30-34) 10/23/21 04:56 RDW 16.9 % (13.2-15.2) H 10/23/21 04:56 Plt Count 428 K/mm3 (140-440) 10/23/21 04:56 Lymph % (Auto) 4.7 % (13.4-35.0) L 10/22/21 09:02 [place] % (Auto) 10.2 % (0.0-7.3) H 10/22/21 09:02 Eos % (Auto) 0.4 % (0.0-4.3) 10/22/21 09:02 Baso % (Auto) 0.2 % (0.0-1.8) 10/22/21 09:02 Lymph # (Auto) 0.8 K/mm3 (1.2-5.4) L 10/22/21 09:02 [place] # (Auto) 1.8 K/mm3 (0.0-0.8) H 10/22/21 09:02 Eos # (Auto) 0.1 K/mm3 (0.0-0.4) 10/22/21 09:02 Baso # (Auto) 0.0 K/mm3 (0.0-0.1) 10/22/21 09:02 Add Manual Diff Complete 10/21/21 16:45 Total Counted 100 10/21/21 16:45 Seg Neutrophils % 84.5 % (40.0-70.0) H 10/22/21 09:02 Seg Neuts % (Manual) 86.0 % (40.0-70.0) H 10/21/21 16:45 Band Neutrophils % 0 % 10/21/21 16:45 Lymphocytes % (Manual) 7.0 % (13.4-35.0) L 10/21/21 16:45 Reactive Lymphs % (Man) 0 % 10/21/21 16:45 Monocytes % (Manual) 7.0 % (0.0-7.3) 10/21/21 16:45 Eosinophils % (Manual) 0 % (0.0-4.3) 10/21/21 16:45 Basophils % (Manual) 0 % (0.0-1.8) 10/21/21 16:45 Metamyelocytes % 0 % 10/21/21 16:45 Myelocytes % 0 % 10/21/21 16:45 Promyelocytes % 0 % 10/21/21 16:45 Blast Cells % 0 % 10/21/21 16:45 Nucleated RBC % Not Reportable 10/21/21 16:45 Seg Neutrophils # 14.5 K/mm3 (1.8-7.7) H 10/22/21 09:02 Seg Neutrophils # Man 18.7 K/mm3 (1.8-7.7) H 10/21/21 16:45 Band Neutrophils # 0.0 K/mm3 10/21/21 16:45 Lymphocytes # (Manual) 1.5 K/mm3 (1.2-5.4) 10/21/21 16:45 Abs React Lymphs (Man) 0.0 K/mm3 10/21/21 16:45 Monocytes # (Manual) 1.5 K/mm3 (0.0-0.8) H 10/21/21 16:45 Eosinophils # (Manual) 0.0 K/mm3 (0.0-0.4) 10/21/21 16:45 Basophils # (Manual) 0.0 K/mm3 (0.0-0.1) 10/21/21 16:45 Metamyelocytes # 0.0 K/mm3 10/21/21 16:45 Myelocytes # 0.0 K/mm3 10/21/21 16:45 Promyelocytes # 0.0 K/mm3 10/21/21 16:45 Blast Cells # 0.0 K/mm3 10/21/21 16:45 Pathologist Review 09/24/21 14:58 WBC Morphology Not Reportable 10/21/21 16:45 Hypersegmented Neuts Rare 10/21/21 16:45 Hyposegmented Neuts Not Reportable 10/21/21 16:45 Hypogranular Neuts Not Reportable 10/21/21 16:45 Smudge Cells Not Reportable 10/21/21 16:45 Toxic Granulation 2+ 10/21/21 16:45 Toxic Vacuolation Not Reportable 10/21/21 16:45 Dohle Bodies Not Reportable 10/21/21 16:45 Pelger-Huet Anomaly Not Reportable 10/21/21 16:45 Marlene Rods Not Reportable 10/21/21 16:45 Platelet Estimate Consistent w auto 10/21/21 16:45 Clumped Platelets Not Reportable 10/21/21 16:45 Plt Clumps, EDTA Not Reportable 10/21/21 16:45 Large Platelets Not Reportable 10/21/21 16:45 Giant Platelets Not Reportable 10/21/21 16:45 Platelet Satelliting Not Reportable 10/21/21 16:45 Plt Morphology Comment Not Reportable 10/21/21 16:45 RBC Morphology Normal 10/21/21 16:45 Dimorphic RBCs Not Reportable 10/21/21 16:45 Polychromasia Not Reportable 10/21/21 16:45 Hypochromasia Not Reportable 10/21/21 16:45 Poikilocytosis Not Reportable 10/21/21 16:45 Anisocytosis Not Reportable 10/21/21 16:45 Microcytosis Not Reportable 10/21/21 16:45 Macrocytosis Not Reportable 10/21/21 16:45 Spherocytes Not Reportable 10/21/21 16:45 Pappenheimer Bodies Not Reportable 10/21/21 16:45 Sickle Cells Not Reportable 10/21/21 16:45 Target Cells Not Reportable 10/21/21 16:45 Tear Drop Cells Not Reportable 10/21/21 16:45 Ovalocytes Not Reportable 10/21/21 16:45 Helmet Cells Not Reportable 10/21/21 16:45 Navas-Cowpens Bodies Not Reportable 10/21/21 16:45 Ruth Rings Not Reportable 10/21/21 16:45 Anusha Cells Not Reportable 10/21/21 16:45 Bite Cells Not Reportable 10/21/21 16:45 Crenated Cell Not Reportable 10/21/21 16:45 Elliptocytes Not Reportable 10/21/21 16:45 Acanthocytes (Spur) Not Reportable 10/21/21 16:45 Rouleaux Not Reportable 10/21/21 16:45 Hemoglobin C Crystals Not Reportable 10/21/21 16:45 Schistocytes Not Reportable 10/21/21 16:45 Malaria parasites Not Reportable 10/21/21 16:45 Flaco Bodies Not Reportable 10/21/21 16:45 Hem Pathologist Commnt No 10/21/21 16:45 PT 19.0 Sec. (12.2-14.9) H 10/14/21 04:05 INR 1.41 (0.87-1.13) H 10/14/21 04:05 APTT 33.9 Sec. (24.2-36.6) 10/14/21 04:05 D-Dimer > 70105 ng/mlDDU (0-234) H 03/22 08:45 ABG pH 7.509 pH Units (7.350-7.450) H 10/21/21 09:05 ABG pCO2 33.7 mm Hg 10/21/21 09:05 ABG pO2 60.3 mm Hg (80.0-90.0) L 10/21/21 09:05 ABG HCO3 26.2 mmol/L (20.0-26.0) H 10/21/21 09:05 ABG O2 Saturation 97.5 % (95.0-99.0) 10/21/21 09:05 ABG O2 Content 9.0 (0.0-44) 10/21/21 09:05 ABG Base Excess 3.0 mmol/L (-2.0-3.0) 10/21/21 09:05 ABG Hemoglobin 6.7 gm/dl (12.0-16.0) L 10/21/21 09:05 ABG Carboxyhemoglobin 1.8 % (0.0-5.0) 10/21/21 09:05 ABG Methemoglobin 0.4 % (0.0-1.5) 10/21/21 09:05 Oxyhemoglobin 95.3 % (95.0-99.0) 10/21/21 09:05 FiO2 28 % 10/21/21 09:05 Sodium 139 mmol/L (137-145) 10/23/21 04:56 Potassium 4.2 mmol/L (3.6-5.0) 10/23/21 04:56 Chloride 106.2 mmol/L (98-107) 10/23/21 04:56 Carbon Dioxide 21 mmol/L (22-30) L 10/23/21 04:56 Anion Gap 16 mmol/L 10/23/21 04:56 BUN 25 mg/dL (7-17) H 10/23/21 04:56 Creatinine 0.9 mg/dL (0.6-1.2) 10/23/21 04:56 Estimated GFR > 60 ml/min 10/23/21 04:56 BUN/Creatinine Ratio 28 % 10/23/21 04:56 Glucose 123 mg/dL (65-100) H 10/23/21 04:56 POC Glucose 130 mg/dL (70-105) H 10/23/21 05:28 Lactic Acid 1.80 mmol/L (0.7-2.0) 10/10/21 04:10 Calcium 8.3 mg/dL (8.4-10.2) L 10/23/21 04:56 Phosphorus 3.60 mg/dL (2.5-4.5) 10/23/21 04:56 Magnesium 2.00 mg/dL (1.7-2.3) 10/23/21 04:56 Ferritin 751.9 ng/mL (10.0-200.0) H 10/09/21 05:31 Total Bilirubin 0.20 mg/dL (0.1-1.2) 10/18/21 04:28 AST 19 units/L (5-40) 10/18/21 04:28 ALT 6 units/L (7-56) L 10/18/21 04:28 Alkaline Phosphatase 53 units/L (35-129) 10/18/21 04:28 Lactate Dehydrogenase 472 units/L (91-180) H 10/09/21 05:31 Total Creatine Kinase 45 units/L (30-135) 10/13/21 04:05 C-Reactive Protein 15.90 mg/dL (0.00-1.30) H 10/09/21 05:31 Total Protein 6.1 g/dL (6.3-8.2) L 10/18/21 04:28 Albumin 2.0 g/dL (3.9-5) L 10/18/21 04:28 Albumin/Globulin Ratio 0.5 % 10/18/21 04:28 Triglycerides 80 mg/dL (2-149) 10/14/21 04:05 Procalcitonin 12.98 ng/mL (<0.15) 10/09/21 05:31 Urine Color Yellow (Yellow) 10/18/21 11:40 Urine Turbidity Clear (Clear) 10/18/21 11:40 Urine pH 6.0 (5.0-7.0) 10/18/21 11:40 Ur Specific [place] 1.015 (1.003-1.030) 10/18/21 11:40 Urine Protein 30 mg/dl mg/dL (Negative) 10/18/21 11:40 Urine Glucose (UA) Trace mg/dL (Negative) 10/18/21 11:40 Urine Ketones Negative mg/dL (Negative) 10/18/21 11:40 Urine Blood Moderate (Negative) A 10/18/21 11:40 Urine Nitrite Negative (Negative) 10/18/21 11:40 Ur Reducing Substances Not Reportable 09/24/21 14:49 Urine Bilirubin Negative (Negative) 10/18/21 11:40 Urine Ictotest Not Reportable 09/24/21 14:49 Urine Urobilinogen 0.0 mg/dL (<2.0) 10/18/21 11:40 Ur Leukocyte Esterase Negative (Negative) 10/18/21 11:40 Urine WBC (Auto) 50.0 /HPF (0.0-6.0) H 10/18/21 11:40 Urine RBC (Auto) > 182.0 /HPF (0.0-6.0) 10/18/21 11:40 U Epithel Cells (Auto) 2.0 /HPF (0-13.0) 10/18/21 11:40 Urine Bacteria (Auto) 2+ /HPF (Negative) 10/18/21 11:40 Urine WBC Clumps 1+ /HPF 10/18/21 11:40 Hyaline Casts Few /LPF 10/18/21 11:40 Granular Casts Few /LPF 10/18/21 11:40 Urine Mucus 3+ /HPF 10/18/21 11:40 Urine HCG, Qual Negative (Negative) 09/24/21 14:49 Coronavirus (PCR) Negative (Negative) 10/09/21 10:15 Blood Type A POSITIVE 10/17/21 12:50 Antibody Screen Negative 10/17/21 12:50 Crossmatch See Detail 10/17/21 12:50 Microbiology: Microbiology 10/18/21 08:17 Peripheral/Venous Blood Culture - Final NO GROWTH AFTER 5 DAYS 10/18/21 08:17 Peripheral/Venous Blood Culture - Final NO GROWTH AFTER 5 DAYS Brantley/IV: Voiding Method External Female Catheter Active Medications - Current Medications Current Medications: Generic Name Dose Route Start Last Admin Trade Name Freq PRN Reason Stop Dose Admin Acetaminophen 650 mg 10/08/21 21:38 Acetaminophen 325 Mg Tab PO Q6H PRN Pain, Mild (1-3) Albuterol 2.5 mg 09/24/21 18:07 Albuterol 2.5 Mg/3 Ml Nebu IH Q4HRT PRN Shortness Of Breath Dextrose 0 ml 10/03/21 12:37 Dextrose 10% *Hypoglycemia IV PRN PRN Hypoglycemia Diphenhydramine HCl 25 mg 10/04/21 15:14 10/22/21 23:56 Diphenhydramine 50 Mg/Ml Vial IV 25 mg Q6H PRN Administration Itching Heparin Sodium (Porcine) 5,000 unit 10/16/21 10:00 10/23/21 09:02 Heparin 5,000 Unit/1 Ml Vial SUB-Q 5,000 unit Q12HR JAZ Administration Hydromorphone HCl 0.5 mg 10/18/21 15:39 10/23/21 11:18 Hydromorphone 1 Mg/1 Ml Inj IV 0.5 mg Q3H PRN Administration Pain, Moderate (4-6) Hydrophilic Ointment 1 applic 10/08/21 21:00 10/19/21 21:59 Lip Therapy Vaseline TP 1 applic Q2HR PRN Administration Dry Lips Fluconazole 200 mls @ 100 mls/hr 10/13/21 10:00 10/23/21 09:03 Diflucan IV 100 mls/hr Q24HR [facility] Administration Protocol Trimethoprim/Sulfamethoxazole 525 mls @ 167 mls/hr 10/18/21 12:00 10/23/21 12:20 400 mg/ Dextrose IV 167 mls/hr Q6HR [facility] Administration Protocol Amino Acids/Electrolytes/Dextrose 1,999.92 mls @ 83.33 mls/hr 10/21/21 20:00 10/22/21 20:10 Tpn Adult IV 10/23/21 19:59 83.33 mls/hr DAILY@1999 [facility] Administration Protocol Dexmedetomidine HCl 400 mcg/ 104 mls @ 5.689 mls/hr 10/21/21 17:00 10/23/21 11:23 Sodium Chloride IV 0.4 mcg/kg/hr TITRATE JAZ 11.378 mls/hr Administration Protocol 0.2 MCG/KG/HR Amino Acids/Electrolytes/Dextrose 1,999.92 mls @ 83.33 mls/hr 10/23/21 20:00 Tpn Adult IV 10/24/21 19:59 DAILY@1999 [facility] Protocol Insulin Glargine 5 units 10/13/21 10:00 10/23/21 09:02 Insulin Glargine 100 Units/Ml SUB-Q 5 units QDAY JAZ Administration Insulin Human Regular 0 units 10/10/21 00:00 10/23/21 13:24 Insulin Regular, Human 100 Units/1 Ml SUB-Q Not Given Q6HR [facility] Protocol Labetalol HCl 10 mg 10/01/21 08:31 10/20/21 09:56 Labetalol 20 Mg/4 Ml Inj IV 10 mg Q6H PRN Administration Hypertension Lorazepam 1 mg 10/21/21 12:48 10/22/21 20:06 Lorazepam 2 Mg/Ml Vial IV 1 mg Q4H PRN Administration Anxiety Multi-Ingred Cream/Lotion/Oil/Oint 1 applic 10/08/21 21:00 Mineral Oil/Petrolatum, White Ophth Oint 3.5 Gm OU Q4HR PRN Dry Eye(s) Naloxone HCl 0.1 mg 10/03/21 14:00 Naloxone 0.4 Mg/1 Ml Inj IV Q2MIN PRN Res Rate </= 8 or 02 SAT < 92% Nystatin 1 applic 10/18/21 14:00 10/23/21 09:02 Nystatin Powder 15 Gm TP 10/24/21 22:01 1 applic BID JAZ Administration Ondansetron HCl 4 mg 09/24/21 18:07 10/20/21 06:04 Ondansetron 4 Mg/2 Ml Inj IV 4 mg Q8H PRN Administration Nausea And Vomiting Pantoprazole Sodium 40 mg 10/20/21 17:00 10/23/21 09:02 Pantoprazole 40 Mg Inj IV 40 mg QDAY JAZ Administration Phenol 1 spray 10/02/21 13:00 10/03/21 10:23 Phenol 1.4% 177 Ml Bottle MM 1 spray PRN PRN Administration Sore Throat Scopolamine 1 each 10/04/21 10:00 10/22/21 09:10 Scopolamine Transdermal Patch 72 Hr TD 1 each Q3D JAZ Administration Sodium Chloride 10 ml 09/24/21 22:00 10/23/21 09:03 Sodium Chloride 0.9% 10 Ml Flush Syringe IV 10 ml BID JAZ Administration Sodium Chloride 10 ml 09/24/21 18:07 09/25/21 08:34 Sodium Chloride 0.9% 10 Ml Flush Syringe IV 10 ml PRN PRN Administration LINE FLUSH Nutrition/Malnutrition Assess - Dietary Evaluation Nutrition/Malnutrition Findings: Nutrition Notes Start: 09/25/21 15:31 Freq: Status: Active Protocol: Document 10/23/21 13:46 RS (Rec: 10/23/21 14:24 RS [id number]) Nutrition Notes Initial or Follow up Reassessment Current Diagnosis Sepsis,Respiratory Failure Other Pertinent Diagnosis s/p appendectomy, s/p exp lap with colostomy, anemia Current Diet CPN at 83.33 ml/hr Labs/Tests BUN: 25 Glu: 123 CO2: 21 Pertinent Medications reviewed Height 5 ft 7 in Weight 109.4 kg [place] Body Weight (kg) 61.36 BMI 37.8 Weight change and time frame Unable to weigh pt; bed scale not zeroed properly Weight Status Obese Subjective/Other Information Day 21 CPN. Pt remains on continuous BiPap therapy and Precedex in NaCl for sedation. Percent of energy/protein needs met: 86% energy 98% pro Burn Absent Trauma Absent GI Symptoms Other Food Allergy No Skin Integrity/Comment Surgical wound Current % PO Other Minimum of two criteria No #1 Nutrition Diagnosis Altered GI function Diagnosis Progress(for reassessment Continues documentation) Is patient on ventilator? No Is Patient Ambulatory and/or Out of Bed No REE-([facility]-confined to bed) 2205.708 Kcal/Kg value to use for calculation 16 Approximate Energy Requirements Using 1750 kcal/Kg Calculation Used for Recommendations Kcal/kg Additional Notes Pro needs 2g/kg IBW: 123g/day Fluid needs 1ml/kcal Nutrition Intervention Nutrition Support: Continue CPN at 83.33ml/hr: MVI. Osmolality: 1570. 25/75 % Cl to Acetate ratio Kcal 1,500 Protein (gm) 120 Carbohydrates (gm) 300 Fat (gm) 0 Fluid (mL) 2,000 Fiber (gm) 0 Goal #1 CPN to meet at least 75% energy and pro needs Follow-Up By: 10/24/21 Additional Comments F/U for BMP, Mg, Phos in AM <PAULIE HAY - Last Filed: 10/24/21 07:09> Assessment and Plan Assessment and plan: I saw and evaluated the patient. I agree with the findings and the plan of care as documented in the Nurse Practitioner's~note, with the following corrections and additions. Hospitalist Physical - Constitutional Vitals: Temp Pulse Resp BP Pulse Ox 98.2 F 71 29 H 129/89 94 10/24/21 04:00 10/24/21 06:00 10/24/21 06:00 10/24/21 06:00 10/24/21 06:00 Results - Labs CBC & Chem 7: 10/24/21 04:00 10/24/21 04:00 Labs: Laboratory Last Values WBC 14.2 K/mm3 (4.5-11.0) H 10/24/21 04:00 RBC 2.55 M/mm3 (3.65-5.03) L 10/24/21 04:00 Hgb 7.4 gm/dl (10.1-14.3) L 10/24/21 04:00 Hct 22.2 % (30.3-42.9) L 10/24/21 04:00 MCV 87 fl (79-97) 10/24/21 04:00 MCH 29 pg (28-32) 10/24/21 04:00 MCHC 33 % (30-34) 10/24/21 04:00 RDW 17.0 % (13.2-15.2) H 10/24/21 04:00 Plt Count 470 K/mm3 (140-440) H 10/24/21 04:00 Lymph % (Auto) 4.7 % (13.4-35.0) L 10/22/21 09:02 [place] % (Auto) 10.2 % (0.0-7.3) H 10/22/21 09:02 Eos % (Auto) 0.4 % (0.0-4.3) 10/22/21 09:02 Baso % (Auto) 0.2 % (0.0-1.8) 10/22/21 09:02 Lymph # (Auto) 0.8 K/mm3 (1.2-5.4) L 10/22/21 09:02 [place] # (Auto) 1.8 K/mm3 (0.0-0.8) H 10/22/21 09:02 Eos # (Auto) 0.1 K/mm3 (0.0-0.4) 10/22/21 09:02 Baso # (Auto) 0.0 K/mm3 (0.0-0.1) 10/22/21 09:02 Add Manual Diff Complete 10/21/21 16:45 Total Counted 100 10/21/21 16:45 Seg Neutrophils % 84.5 % (40.0-70.0) H 10/22/21 09:02 Seg Neuts % (Manual) 86.0 % (40.0-70.0) H 10/21/21 16:45 Band Neutrophils % 0 % 10/21/21 16:45 Lymphocytes % (Manual) 7.0 % (13.4-35.0) L 10/21/21 16:45 Reactive Lymphs % (Man) 0 % 10/21/21 16:45 Monocytes % (Manual) 7.0 % (0.0-7.3) 10/21/21 16:45 Eosinophils % (Manual) 0 % (0.0-4.3) 10/21/21 16:45 Basophils % (Manual) 0 % (0.0-1.8) 10/21/21 16:45 Metamyelocytes % 0 % 10/21/21 16:45 Myelocytes % 0 % 10/21/21 16:45 Promyelocytes % 0 % 10/21/21 16:45 Blast Cells % 0 % 10/21/21 16:45 Nucleated RBC % Not Reportable 10/21/21 16:45 Seg Neutrophils # 14.5 K/mm3 (1.8-7.7) H 10/22/21 09:02 Seg Neutrophils # Man 18.7 K/mm3 (1.8-7.7) H 10/21/21 16:45 Band Neutrophils # 0.0 K/mm3 10/21/21 16:45 Lymphocytes # (Manual) 1.5 K/mm3 (1.2-5.4) 10/21/21 16:45 Abs React Lymphs (Man) 0.0 K/mm3 10/21/21 16:45 Monocytes # (Manual) 1.5 K/mm3 (0.0-0.8) H 10/21/21 16:45 Eosinophils # (Manual) 0.0 K/mm3 (0.0-0.4) 10/21/21 16:45 Basophils # (Manual) 0.0 K/mm3 (0.0-0.1) 10/21/21 16:45 Metamyelocytes # 0.0 K/mm3 10/21/21 16:45 Myelocytes # 0.0 K/mm3 10/21/21 16:45 Promyelocytes # 0.0 K/mm3 10/21/21 16:45 Blast Cells # 0.0 K/mm3 10/21/21 16:45 Pathologist Review 09/24/21 14:58 WBC Morphology Not Reportable 10/21/21 16:45 Hypersegmented Neuts Rare 10/21/21 16:45 Hyposegmented Neuts Not Reportable 10/21/21 16:45 Hypogranular Neuts Not Reportable 10/21/21 16:45 Smudge Cells Not Reportable 10/21/21 16:45 Toxic Granulation 2+ 10/21/21 16:45 Toxic Vacuolation Not Reportable 10/21/21 16:45 Dohle Bodies Not Reportable 10/21/21 16:45 Pelger-Huet Anomaly Not Reportable 10/21/21 16:45 Marlene Rods Not Reportable 10/21/21 16:45 Platelet Estimate Consistent w auto 10/21/21 16:45 Clumped Platelets Not Reportable 10/21/21 16:45 Plt Clumps, EDTA Not Reportable 10/21/21 16:45 Large Platelets Not Reportable 10/21/21 16:45 Giant Platelets Not Reportable 10/21/21 16:45 Platelet Satelliting Not Reportable 10/21/21 16:45 Plt Morphology Comment Not Reportable 10/21/21 16:45 RBC Morphology Normal 10/21/21 16:45 Dimorphic RBCs Not Reportable 10/21/21 16:45 Polychromasia Not Reportable 10/21/21 16:45 Hypochromasia Not Reportable 10/21/21 16:45 Poikilocytosis Not Reportable 10/21/21 16:45 Anisocytosis Not Reportable 10/21/21 16:45 Microcytosis Not Reportable 10/21/21 16:45 Macrocytosis Not Reportable 10/21/21 16:45 Spherocytes Not Reportable 10/21/21 16:45 Pappenheimer Bodies Not Reportable 10/21/21 16:45 Sickle Cells Not Reportable 10/21/21 16:45 Target Cells Not Reportable 10/21/21 16:45 Tear Drop Cells Not Reportable 10/21/21 16:45 Ovalocytes Not Reportable 10/21/21 16:45 Helmet Cells Not Reportable 10/21/21 16:45 Navas-Cowpens Bodies Not Reportable 10/21/21 16:45 Ruth Rings Not Reportable 10/21/21 16:45 Anusha Cells Not Reportable 10/21/21 16:45 Bite Cells Not Reportable 10/21/21 16:45 Crenated Cell Not Reportable 10/21/21 16:45 Elliptocytes Not Reportable 10/21/21 16:45 Acanthocytes (Spur) Not Reportable 10/21/21 16:45 Rouleaux Not Reportable 10/21/21 16:45 Hemoglobin C Crystals Not Reportable 10/21/21 16:45 Schistocytes Not Reportable 10/21/21 16:45 Malaria parasites Not Reportable 10/21/21 16:45 Flaco Bodies Not Reportable 10/21/21 16:45 Hem Pathologist Commnt No 10/21/21 16:45 PT 19.0 Sec. (12.2-14.9) H 10/14/21 04:05 INR 1.41 (0.87-1.13) H 10/14/21 04:05 APTT 33.9 Sec. (24.2-36.6) 10/14/21 04:05 D-Dimer > 66201 ng/mlDDU (0-234) H 10/09/21 08:45 ABG pH 7.509 pH Units (7.350-7.450) H 10/21/21 09:05 ABG pCO2 33.7 mm Hg 10/21/21 09:05 ABG pO2 60.3 mm Hg (80.0-90.0) L 10/21/21 09:05 ABG HCO3 26.2 mmol/L (20.0-26.0) H 10/21/21 09:05 ABG O2 Saturation 97.5 % (95.0-99.0) 10/21/21 09:05 ABG O2 Content 9.0 (0.0-44) 10/21/21 09:05 ABG Base Excess 3.0 mmol/L (-2.0-3.0) 10/21/21 09:05 ABG Hemoglobin 6.7 gm/dl (12.0-16.0) L 10/21/21 09:05 ABG Carboxyhemoglobin 1.8 % (0.0-5.0) 10/21/21 09:05 ABG Methemoglobin 0.4 % (0.0-1.5) 10/21/21 09:05 Oxyhemoglobin 95.3 % (95.0-99.0) 10/21/21 09:05 FiO2 28 % 10/21/21 09:05 Sodium 135 mmol/L (137-145) L 10/24/21 04:00 Potassium 4.2 mmol/L (3.6-5.0) 10/24/21 04:00 Chloride 100.2 mmol/L (98-107) 10/24/21 04:00 Carbon Dioxide 21 mmol/L (22-30) L 10/24/21 04:00 Anion Gap 18 mmol/L 10/24/21 04:00 BUN 26 mg/dL (7-17) H 10/24/21 04:00 Creatinine 0.9 mg/dL (0.6-1.2) 10/24/21 04:00 Estimated GFR > 60 ml/min 10/24/21 04:00 BUN/Creatinine Ratio 29 % 10/24/21 04:00 Glucose 122 mg/dL (65-100) H 10/24/21 04:00 POC Glucose 133 mg/dL (70-105) H 10/24/21 05:15 Lactic Acid 1.80 mmol/L (0.7-2.0) 10/10/21 04:10 Calcium 8.2 mg/dL (8.4-10.2) L 10/24/21 04:00 Phosphorus 3.60 mg/dL (2.5-4.5) 10/24/21 04:00 Magnesium 1.80 mg/dL (1.7-2.3) 10/24/21 04:00 Ferritin 751.9 ng/mL (10.0-200.0) H 10/09/21 05:31 Total Bilirubin 0.20 mg/dL (0.1-1.2) 10/18/21 04:28 AST 19 units/L (5-40) 10/18/21 04:28 ALT 6 units/L (7-56) L 10/18/21 04:28 Alkaline Phosphatase 53 units/L (35-129) 10/18/21 04:28 Lactate Dehydrogenase 472 units/L (91-180) H 10/09/21 05:31 Total Creatine Kinase 45 units/L (30-135) 10/13/21 04:05 C-Reactive Protein 15.90 mg/dL (0.00-1.30) H 10/09/21 05:31 Total Protein 6.1 g/dL (6.3-8.2) L 10/18/21 04:28 Albumin 2.0 g/dL (3.9-5) L 10/18/21 04:28 Albumin/Globulin Ratio 0.5 % 10/18/21 04:28 Triglycerides 80 mg/dL (2-149) 10/14/21 04:05 Procalcitonin 12.98 ng/mL (<0.15) 10/09/21 05:31 Urine Color Yellow (Yellow) 10/18/21 11:40 Urine Turbidity Clear (Clear) 10/18/21 11:40 Urine pH 6.0 (5.0-7.0) 10/18/21 11:40 Ur Specific [place] 1.015 (1.003-1.030) 10/18/21 11:40 Urine Protein 30 mg/dl mg/dL (Negative) 10/18/21 11:40 Urine Glucose (UA) Trace mg/dL (Negative) 10/18/21 11:40 Urine Ketones Negative mg/dL (Negative) 10/18/21 11:40 Urine Blood Moderate (Negative) A 10/18/21 11:40 Urine Nitrite Negative (Negative) 10/18/21 11:40 Ur Reducing Substances Not Reportable 09/24/21 14:49 Urine Bilirubin Negative (Negative) 10/18/21 11:40 Urine Ictotest Not Reportable 09/24/21 14:49 Urine Urobilinogen 0.0 mg/dL (<2.0) 10/18/21 11:40 Ur Leukocyte Esterase Negative (Negative) 10/18/21 11:40 Urine WBC (Auto) 50.0 /HPF (0.0-6.0) H 10/18/21 11:40 Urine RBC (Auto) > 182.0 /HPF (0.0-6.0) 10/18/21 11:40 U Epithel Cells (Auto) 2.0 /HPF (0-13.0) 10/18/21 11:40 Urine Bacteria (Auto) 2+ /HPF (Negative) 10/18/21 11:40 Urine WBC Clumps 1+ /HPF 10/18/21 11:40 Hyaline Casts Few /LPF 10/18/21 11:40 Granular Casts Few /LPF 10/18/21 11:40 Urine Mucus 3+ /HPF 10/18/21 11:40 Urine HCG, Qual Negative (Negative) 09/24/21 14:49 Coronavirus (PCR) Negative (Negative) 10/09/21 10:15 Blood Type A POSITIVE 10/17/21 12:50 Antibody Screen Negative 10/17/21 12:50 Crossmatch See Detail 10/17/21 12:50 Microbiology: Microbiology 10/18/21 08:17 Peripheral/Venous Blood Culture - Final NO GROWTH AFTER 5 DAYS 10/18/21 08:17 Peripheral/Venous Blood Culture - Final NO GROWTH AFTER 5 DAYS [place]/IV: Voiding Method External Female Catheter Active Medications - Current Medications Current Medications: Generic Name Dose Route Start Last Admin Trade Name Freq PRN Reason Stop Dose Admin Acetaminophen 650 mg 10/08/21 21:38 Acetaminophen 325 Mg Tab PO Q6H PRN Pain, Mild (1-3) Albuterol 2.5 mg 09/24/21 18:07 Albuterol 2.5 Mg/3 Ml Nebu IH Q4HRT PRN Shortness Of Breath Dextrose 0 ml 10/03/21 12:37 Dextrose 10% *Hypoglycemia IV PRN PRN Hypoglycemia Diphenhydramine HCl 25 mg 10/04/21 15:14 10/22/21 23:56 Diphenhydramine 50 Mg/Ml Vial IV 25 mg Q6H PRN Administration Itching Furosemide 20 mg 10/23/21 15:00 10/24/21 06:00 Furosemide 20 Mg/2 Ml Inj IV 10/24/21 15:01 20 mg Q8H JAZ Administration Heparin Sodium (Porcine) 5,000 unit 10/16/21 10:00 10/23/21 22:01 Heparin 5,000 Unit/1 Ml Vial SUB-Q 5,000 unit Q12HR JAZ Administration Hydromorphone HCl 0.5 mg 10/18/21 15:39 10/24/21 02:18 Hydromorphone 1 Mg/1 Ml Inj IV 0.5 mg Q3H PRN Administration Pain, Moderate (4-6) Hydrophilic Ointment 1 applic 10/08/21 21:00 10/19/21 21:59 Lip Therapy Vaseline TP 1 applic Q2HR PRN Administration Dry Lips Fluconazole 200 mls @ 100 mls/hr 10/13/21 10:00 10/23/21 09:03 Diflucan IV 100 mls/hr Q24HR [facility] Administration Protocol Trimethoprim/Sulfamethoxazole 525 mls @ 167 mls/hr 10/18/21 12:00 10/24/21 05:39 400 mg/ Dextrose IV 167 mls/hr Q6HR [facility] Administration Protocol Dexmedetomidine HCl 400 mcg/ 104 mls @ 5.689 mls/hr 10/21/21 17:00 10/24/21 06:13 Sodium Chloride IV 0.4 mcg/kg/hr TITRATE JAZ 11.378 mls/hr Administration Protocol 0.2 MCG/KG/HR Amino Acids/Electrolytes/Dextrose 1,999.92 mls @ 83.33 mls/hr 10/23/21 20:00 10/23/21 22:00 Tpn Adult IV 10/24/21 19:59 83.33 mls/hr DAILY@2000 [facility] Administration Protocol Insulin Glargine 5 units 10/13/21 10:00 10/23/21 09:02 Insulin Glargine 100 Units/Ml SUB-Q 5 units QDAY [facility] Administration Insulin Human Regular 0 units 10/10/21 00:00 10/24/21 05:41 Insulin Regular, Human 100 Units/1 Ml SUB-Q 1 units Q6HR [facility] Administration Protocol Labetalol HCl 10 mg 10/01/21 08:31 10/20/21 09:56 Labetalol 20 Mg/4 Ml Inj IV 10 mg Q6H PRN Administration Hypertension Lorazepam 1 mg 10/21/21 12:48 10/22/21 20:06 Lorazepam 2 Mg/Ml Vial IV 1 mg Q4H PRN Administration Anxiety Multi-Ingred Cream/Lotion/Oil/Oint 1 applic 10/08/21 21:00 Mineral Oil/Petrolatum, White Ophth Oint 3.5 Gm OU Q4HR PRN Dry Eye(s) Naloxone HCl 0.1 mg 10/03/21 14:00 Naloxone 0.4 Mg/1 Ml Inj IV Q2MIN PRN Res Rate </= 8 or 02 SAT < 92% Nystatin 1 applic 10/18/21 14:00 10/23/21 22:01 Nystatin Powder 15 Gm TP 10/24/21 22:01 Not Given BID JAZ Ondansetron HCl 4 mg 09/24/21 18:07 10/20/21 06:04 Ondansetron 4 Mg/2 Ml Inj IV 4 mg Q8H PRN Administration Nausea And Vomiting Pantoprazole Sodium 40 mg 10/20/21 17:00 10/23/21 09:02 Pantoprazole 40 Mg Inj IV 40 mg QDAY JAZ Administration Phenol 1 spray 10/02/21 13:00 10/03/21 10:23 Phenol 1.4% 177 Ml Bottle MM 1 spray PRN PRN Administration Sore Throat Scopolamine 1 each 10/04/21 10:00 10/22/21 09:10 Scopolamine Transdermal Patch 72 Hr TD 1 each Q3D JAZ Administration Sodium Chloride 10 ml 09/24/21 22:00 10/23/21 22:01 Sodium Chloride 0.9% 10 Ml Flush Syringe IV 10 ml BID JAZ Administration Sodium Chloride 10 ml 09/24/21 18:07 09/25/21 08:34 Sodium Chloride 0.9% 10 Ml Flush Syringe IV 10 ml PRN PRN Administration LINE FLUSH Nutrition/Malnutrition Assess - Dietary Evaluation Nutrition/Malnutrition Findings: Nutrition Notes Start: 09/25/21 15:31 Freq: Status: Active Protocol: Document 10/23/21 13:46 RS (Rec: 10/23/21 14:24 RS [id number]) Nutrition Notes Initial or Follow up Reassessment Current Diagnosis Sepsis,Respiratory Failure Other Pertinent Diagnosis s/p appendectomy, s/p exp lap with colostomy, anemia Current Diet CPN at 83.33 ml/hr Labs/Tests BUN: 25 Glu: 123 CO2: 21 Pertinent Medications reviewed Height 5 ft 7 in Weight 109.4 kg [place] Body Weight (kg) 61.36 BMI 37.8 Weight change and time frame Unable to weigh pt; bed scale not zeroed properly Weight Status Obese Subjective/Other Information Day 21 CPN. Pt remains on continuous BiPap therapy and Precedex in NaCl for sedation. Percent of energy/protein needs met: 86% energy 98% pro Burn Absent Trauma Absent GI Symptoms Other Food Allergy No Skin Integrity/Comment Surgical wound Current % PO Other Minimum of two criteria No #1 Nutrition Diagnosis Altered GI function Diagnosis Progress(for reassessment Continues documentation) Is patient on ventilator? No Is Patient Ambulatory and/or Out of Bed No REE-(Stark-St. Jeor-confined to bed) 2205.708 Kcal/Kg value to use for calculation 16 Approximate Energy Requirements Using 1750 kcal/Kg Calculation Used for Recommendations Kcal/kg Additional Notes Pro needs 2g/kg IBW: 123g/day Fluid needs 1ml/kcal Nutrition Intervention Nutrition Support: Continue CPN at 83.33ml/hr: MVI. Osmolality: 1570. 25/75 % Cl to Acetate ratio Kcal 1,500 Protein (gm) 120 Carbohydrates (gm) 300 Fat (gm) 0 Fluid (mL) 2,000 Fiber (gm) 0 Goal #1 CPN to meet at least 75% energy and pro needs Follow-Up By: 10/24/21 Additional Comments F/U for BMP, Mg, Phos in AM
[2021-10-23] MEDS: FUROSEMIDE 20 MG/2 ML INJ IV SCH ×2 (15:19→23:25)
[2021-10-23] MEDS ORDERED: TOTAL PARENTERAL NUTRITION 1,999.92 ML IV SCH (20:00)
[2021-10-24] MEDS: INSULIN REGULAR, HUMAN 100 UNITS/1 ML SUB-Q SCH ×4 (01:03→18:55)
[2021-10-24] MEDS: HYDROmorphone 1 MG/1 ML INJ IV PRN ×3 (02:18→17:00)
[2021-10-24 04:55] LABS: Hematocrit 22.2 % (30.3-42.9); Hemoglobin 7.4 gm/dl (10.1-14.3); Mean Corpuscular HGB Conc 33 % (30-34); Mean Corpuscular Volume 87 fl (79-97); Platelet Count 470 K/mm3 (140-440); Red Blood Count 2.55 M/mm3 (3.65-5.03)
[2021-10-24 05:16] LABS: BUN/Creatinine Ratio 29; Blood Urea Nitrogen 26 mg/dL (7-17); Calcium 8.2 mg/dL (8.4-10.2); Hemolysis Index 0
[2021-10-24] MEDS: TMP IV SCH ×3 (05:39→18:22)
[2021-10-24] MEDS: SMX IV SCH ×3 (05:39→18:22)
[2021-10-24] MEDS: WATER IV SCH ×3 (05:39→18:22)
[2021-10-24] MEDS: DEXTROSE 5% IV SCH ×3 (05:39→18:22)
[2021-10-24] MEDS: FUROSEMIDE 20 MG/2 ML INJ IV SCH ×3 (06:00→18:22)
[2021-10-24] MEDS: FLUCONAZOLE 400 MG 200 ML IV SCH (10:35)
[2021-10-24] MEDS: LORazepam 2 MG/ML VIAL IV PRN (10:35)
[2021-10-24] MEDS: PANTOPRAZOLE 40 MG INJ IV SCH (10:35)
[2021-10-24] MEDS: HEPARIN 5,000 UNIT/1 ML VIAL SUB-Q SCH ×2 (10:40→21:36)
--- NOTE | 2021-10-24 10:41 | Progress Note ---
Assessment and Plan Postop day #10 status post colostomy creation with closure of abdomen. Patient is afebrile and resolved tachycardia. Leukocytosis improving. Awaiting full return of bowel function. Sputum culture positive for gram-negative rods. Patient is on appropriate antibiotics for sensitivity. Continue per ID. Respiratory insufficiency - continue BIPAP per pulmonary prn. Once patient is better from a respiratory standpoint would like to resume physical therapy out of bed to chair. will trial sips of water today. Resume NGT suction if pt vo mits or does not tolerate. Creatinine has normalized she is making good urine output. Continue supportive care. Postop day #13 status post colorectal anastomosis takedown, with abdominal washout and ABThera wound VAC. Postop day #21 status post laparoscopic converted to open left hemicolectomy with appendectomy for perforated appendicitis with fistulization to sigmoid colon. Subjective Date of service: 10/24/21 Narrative: No acute events overnight. Patient says that she had a relatively restful night and feels better compared to yesterday. She said that she is ready to go home. Patient says she tolerated her ice chips while her NG tube was clamped. She said she had one episode of spitting up mucus earlier today. Objective Vital Signs - 12hr 10/23/21 10/23/21 10/23/21 23:00 23:22 23:30 Temperature Pulse Rate 79 79 75 Pulse Rate [ From Monitor] Respiratory 36 H 36 H 35 H Rate Blood Pressure 133/90 181/122 181/122 O2 Sat by Pulse 99 98 98 Oximetry 10/24/21 10/24/21 10/24/21 00:00 00:30 01:00 Temperature 98.3 F Pulse Rate 77 85 83 Pulse Rate [ 77 From Monitor] Respiratory 26 H 26 H 25 H Rate Blood Pressure 132/91 132/91 133/94 O2 Sat by Pulse 96 97 Oximetry 10/24/21 10/24/21 10/24/21 01:30 02:00 02:30 Temperature Pulse Rate 79 83 78 Pulse Rate [ From Monitor] Respiratory 29 H 36 H 31 H Rate Blood Pressure 123/85 123/85 132/94 O2 Sat by Pulse 96 Oximetry 10/24/21 10/24/21 10/24/21 03:00 03:30 04:00 Temperature 98.2 F Pulse Rate 77 83 74 Pulse Rate [ 74 From Monitor] Respiratory 28 H 28 H 30 H Rate Blood Pressure 129/92 129/96 130/94 O2 Sat by Pulse 98 99 98 Oximetry 10/24/21 10/24/21 10/24/21 04:30 05:00 05:30 Temperature Pulse Rate 69 73 70 Pulse Rate [ From Monitor] Respiratory 30 H 31 H 28 H Rate Blood Pressure 133/94 131/92 133/95 O2 Sat by Pulse 98 98 95 Oximetry 10/24/21 10/24/21 06:00 08:00 Temperature 98.1 F Pulse Rate 71 Pulse Rate [ From Monitor] Respiratory 29 H Rate Blood Pressure 129/89 O2 Sat by Pulse 94 Oximetry - General physical appearance no distress, no pain - Respiratory normal expansion, clear to auscultation, other (On 3 L nasal cannula) - Abdomen soft, not tender, not rebound, not rigid, other (Staple line intact with serous drainage. YURIDIA drain clear serous less output over the last 24 hours and prior. Left drain unchanged. Ostomy is pink with no air and minimal output in bag.) - Musculoskeletal other (Improving bilateral lower extremity anasarca) - Labs 10/24/21 04:00 10/24/21 04:00 Diabetes panel 10/24/21 Range/Units 04:00 Sodium 135 L (137-145) mmol/L Potassium 4.2 (3.6-5.0) mmol/L Chloride 100.2 (98-107) mmol/L Carbon Dioxide 21 L (22-30) mmol/L BUN 26 H (7-17) mg/dL Creatinine 0.9 (0.6-1.2) mg/dL Glucose 122 H (65-100) mg/dL Calcium 8.2 L (8.4-10.2) mg/dL Calcium panel 10/24/21 Range/Units 04:00 Calcium 8.2 L (8.4-10.2) mg/dL Phosphorus 3.60 (2.5-4.5) mg/dL Pituitary panel 10/24/21 Range/Units 04:00 Sodium 135 L (137-145) mmol/L Potassium 4.2 (3.6-5.0) mmol/L Chloride 100.2 (98-107) mmol/L Carbon Dioxide 21 L (22-30) mmol/L BUN 26 H (7-17) mg/dL Creatinine 0.9 (0.6-1.2) mg/dL Glucose 122 H (65-100) mg/dL Calcium 8.2 L (8.4-10.2) mg/dL Adrenal panel 10/24/21 Range/Units 04:00 Sodium 135 L (137-145) mmol/L Potassium 4.2 (3.6-5.0) mmol/L Chloride 100.2 (98-107) mmol/L Carbon Dioxide 21 L (22-30) mmol/L BUN 26 H (7-17) mg/dL Creatinine 0.9 (0.6-1.2) mg/dL Glucose 122 H (65-100) mg/dL Calcium 8.2 L (8.4-10.2) mg/dL
[2021-10-24] MEDS: NYSTATIN POWDER 15 GM TP SCH ×2 (10:46→21:37)
[2021-10-24] MEDS: INSULIN GLARGINE 100 UNITS/ML SUB-Q SCH (10:47)
--- NOTE | 2021-10-24 12:02 | Progress Note ---
Assessment and Plan Assessment and plan: This is a 31-year-old female with past medical history of obesity and nephrolithiasis initially admitted to the floor for acute diverticulititis which was complicated by sepsis and acute kidney injury. 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 On 10/08/21 patient developed acute hypoxic respiratory failure requiring ventilatory support, s/p extubation. ICU Course to Date: 10/09: Intubated and sedated, RASS -1 to -2. Recent CXR noted with worsen olayinka ateral opacities with persistent leukocytosis, elevated lactic, and now on 2 pressors. Patient remains afebrile, and already on IV Abx per ID. Will swab patient for COVID. Given recent surgery orders placed for CTA chest, CT Abd/plevis. And also BLE dopplers due to elevated D-Dimer. Renal function is improving, additional IVF to flush out kidney post contrast, Nephrology is also following. Continue TPN and NGT to LIS. 10/10: COVID PCR negative. CTA chest and Abd/plevis noted. No evidence of PE. Patient received X1 dose of 20mg IV lasix per Nephro for pulmonary edema, this am CXR with some improvement, renal function is also improving. Wean vent setting as tolerated per CCM. Plan for possible CT guided drainage placement in IR tomorrow. Continue TPN and NGT to LIS. 10/11: Patient with anemia, 1 unit PRBC, scheduled for CT-guided drain image of air pocket. Will place on CPAP on return. Slightly worsening renal function but nephrology is on the case. 10/12: Taken to OR today for diverting ileostomy, given 3 units PRBC yesterday and appropriate response. Surgical culture grew yeast and ID added added fluconazole. 10/13: Hypomagnesemia repleted, renal function improving. Patient remains sedated with fentanyl and propofol. Updated sister and father at bedside. Ureteral madeline nts removed at bedside. Plan to to take patient to the OR tomorrow for second look, abdominal washout, colostomy creation on hold for abdominal closure by surgery. We will hold p.m. dose of heparin. 10/14: Plan to take patient back to OR today, prophylactic anticougulation on hold. 2 units prbc on hold for surgery. Plan to close abd and colostomy creation. Vent weaning on hold till abd closure 10/15: Renal function remains stable, leukocytosis increased, remains sedated on propofol and fentanyl and on mechanical ventilation. Plan is to hold SBT until the weekend. Repeat renal ultrasound pending per urology. 10/16: no acute events overnight. remains on fent and propofol. plan to sbt on . 10/17: noted drop in hgb from 8 to 7.2 and will given one unit prbc. remains on fent/propofol. CARMEN overnight. Will retract OETT per rad reading. 10/18: Febrile this am with worsen leukocytosis. Continue IV Abx per ID, orders placed for cultures. Patient tolerating PST, d/w CCM plan for possible extubation today. Abdominal insicion and colostomy noted, no signs of any complications noted. Continue TPN and NGT to LIS per General surgery. 10/19: S/p extubation, now stable on 2L NC. Fevers improved, cultures pending continue IV Abx per ID. Patient is still with absent bowel sounds, continue TPN and NGT to LIS per General surg. Okay to remove brantley per Urology. Electrolytes repleted, repeat labs in the am. Patient is stable for transfer to [facility]. 10/20: Continue current management. Patient remained stable on 2 L of oxygen but appears anxious with increased tachypnea. We will add incentive spirometer. Will check and monitor intermittent x-rays. Continue antibiotics per infectious disease. Renal function has normalized. We will good urine output. We will check blood work in a.m. Awaiting return of bowel function 10/21: Patient on BiPAP this am, xray from yesterday concerning for Aspiration pneumonia vs atalalectsis, patient still with increased WOB although improved compared to yesterday. Leukocytosis a bit worse, will continue to monitor and discuss with ID if more broad spectrum therapy should be considered. She is currently on Bactrim for positive tracheal aspirate with Stenotrophomonas. Continue aspiration precautions. may need repeat xray but will discuss with pulmonary. Continue Strict NPO and Aspiration precautions. Continues on TPN. Prognosis guarded. ?Third spacing 10/22: Back in the ICU due to hypoxia, increased WOB, and tachycardia requiring continuous Bipap. Patient is now on precedex gtt for increased anxiety. Repeat BLE doppler with no evidence of DVT . D/W [facility] paln for CTA chest and CT abd/Pelvis today. Mild improvement in leukocytosis today, patient is afebrile, continue IV Abx per ID. Remains on TPN and NGT to LIS. 10/23: CTA chest and CT Abd/Pelvis noted- no evidence of PE, multiloculated doug ection along the left mid abdomen have all decreased in size, with persistent anasarca. Will started IV Lasix [id number]. Plan to wean to NC today, continue Bipap Qhs or as needed. Close monitoring of renal function and electrolytes, replete as needed. Plan to Clamp NGT today per General Surgery. Continue TPN. 10/24: Patient tolerated IV lasix, stable on 3L NC this am, no respiratory distress noted. Continue gentle diurese, IV Lasix X3 doses. Remains on NGT clamped per Gen Surgery. Patient is tolerating ice chips. Patient is okayed for sips of water per General Surgery. Continue TPN and wound care management per General Surgery. 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 #Open left hemicolectomy and partial omentectomy #Peritonitis #Diverticulitis with abscess #Possible Bilateral Pneumonia #Septic Shock-resolved -CT abd/pelvis showed diverticulitis with abscess -General surgery following, assistance appreciated -s/p diagnositic laparatomy and drain placement 09/26/2021 -Returned to the OR on 09/30/2021 for left hemicolectomy, appendectomy, and partial omentectomy -10/09 CT abdomen/pelvis showed a new collection of air within the left midabdomen -3/7 CT guided drain placement in IR- Colonic Anastamosis noted -10/12 status post colorectal anastomosis takedown, with abdominal washout and ABThera wound VAC placement -10/13 status post colostomy creation with closure of abdomen -Wound culture +VRE -10/08 Repeat Blood culture negative, 10/18 Blood culture negative with NGTD; -Continue IV Abx per ID recommendations -Continue TPN/PPN per general surgery -NGT is clamped, Okayed for sips of water by General Surgery -Trend CBC #Acute Kidney Injury 2/2 Vasomotor Nephropathy vs contrast induced-improved -Nephrology consulted, assistance appreciated -Renal function normalized -Strict intake and output -Avoid nephrotoxic medications; Renally dose medications -Monitor and replace electrolytes as needed #Acute blood loss anemia-Resolved #Gross Hematuria-resolved -09/08 to surgical procedures-- c/f ureteral injury -s/p 7 units of pRBCs since admission -Hematuria resolved, H&H stable -Urology consulted, appreciated recommendation -10/12 Intra-Op cystoscopy completed and bilateral ureteral stents placed- removed on 10/13 By Urology -Repeat renal US noted -Okay to remove Brantley per Urology -Continue to monitor for s/s of any active bleeding, trend CBC -transfuse if hemoglobin less than 7 or patient becomes symptomatic #Moderate protein caloric malnutrition -Albumin 1.6 -Continue TPN/PPN per general surgery -Consulting nutrition; appreciate recs #Elevated D-Dimer -BLE doppler with no evidence of any DVT -Continue AC- Heparin subQ #Hyperglycemia -most likely due to TPN/PPN -Continue SSI Q6hrs -Avoid hypoglycemia #Anxiety -On Precedex gtt -Titrate for RASS goal 0 to -1 -Maintenance of sleep-wake cycle -Psych/Mentatl health is following #GI/DVT Prophylaxis -Continue PPI- Pepcid -Continue AC- Heparin subQ -SCDs to bilateral lower extremities while in bed The high probability of a clinically significant, sudden or life threatening deterioration of the [multiple] system(s) required my full and direct attention, intervention and personal management. The aggregate critical care time was [60] minutes. This time is in addition to time spent performing reported procedures but includes the following: [x] Data Review and interpretation [x] Patient assessment and monitoring of vital signs [x] Documentation [x] Medication orders and management Disposition Plan: ICU Total Time Spent with Patient (Minutes): 60 History Interval history: Patient was seen and examined at the bedside. Stable on 3L NC. Patient voiced feeling a lot better this am. Tolerating ice ships, no residual from NGT reported. Patient is hoping to start drinking some water today. Patient remains on precedex gtt. CARMEN overnight Hospitalist Physical - Constitutional Vitals: Temp Pulse Resp BP Pulse Ox 98.1 F 71 29 H 129/89 94 10/24/21 08:00 10/24/21 06:00 10/24/21 06:00 10/24/21 06:00 10/24/21 06:00 General appearance: Present: no acute distress, obese - EENT Eyes: Present: PERRL, EOM intact ENT: hearing intact - Neck Neck: Present: normal ROM - Respiratory Respiratory effort: normal Respiratory: bilateral: diminished - Cardiovascular Rhythm: regular Heart Sounds: Present: S1 & S2 - Extremities Extremities: no ischemia, pulses intact, pulses symmetrical Extremity abnormal: edema - Peripheral Assessment Generalized Edema Type: Non-pitting Edema Degree: 2+ Capillary Refill: < 3 seconds Skin Temperature: Warm Peripheral Pulses: within normal limits - Abdominal General gastrointestinal: soft, non-distended, normal bowel sounds - Integumentary Integumentary: Present: warm, dry - Psychiatric Psychiatric: appropriate mood/affect, cooperative - Neurologic Neurologic: CNII-XII intact, moves all extremities - Allied Health Allied health notes reviewed: nursing, case management Results - Labs CBC & Chem 7: 10/24/21 04:00 10/24/21 04:00 Labs: Laboratory Last Values WBC 14.2 K/mm3 (4.5-11.0) H 10/24/21 04:00 RBC 2.55 M/mm3 (3.65-5.03) L 10/24/21 04:00 Hgb 7.4 gm/dl (10.1-14.3) L 10/24/21 04:00 Hct 22.2 % (30.3-42.9) L 10/24/21 04:00 MCV 87 fl (79-97) 10/24/21 04:00 MCH 29 pg (28-32) 10/24/21 04:00 MCHC 33 % (30-34) 10/24/21 04:00 RDW 17.0 % (13.2-15.2) H 10/24/21 04:00 Plt Count 470 K/mm3 (140-440) H 10/24/21 04:00 Lymph % (Auto) 4.7 % (13.4-35.0) L 10/22/21 09:02 Brooke % (Auto) 10.2 % (0.0-7.3) H 10/22/21 09:02 Eos % (Auto) 0.4 % (0.0-4.3) 10/22/21 09:02 Baso % (Auto) 0.2 % (0.0-1.8) 10/22/21 09:02 Lymph # (Auto) 0.8 K/mm3 (1.2-5.4) L 10/22/21 09:02 Brooke # (Auto) 1.8 K/mm3 (0.0-0.8) H 10/22/21 09:02 Eos # (Auto) 0.1 K/mm3 (0.0-0.4) 10/22/21 09:02 Baso # (Auto) 0.0 K/mm3 (0.0-0.1) 10/22/21 09:02 Add Manual Diff Complete 10/21/21 16:45 Total Counted 100 10/21/21 16:45 Seg Neutrophils % 84.5 % (40.0-70.0) H 10/22/21 09:02 Seg Neuts % (Manual) 86.0 % (40.0-70.0) H 10/21/21 16:45 Band Neutrophils % 0 % 10/21/21 16:45 Lymphocytes % (Manual) 7.0 % (13.4-35.0) L 10/21/21 16:45 Reactive Lymphs % (Man) 0 % 10/21/21 16:45 Monocytes % (Manual) 7.0 % (0.0-7.3) 10/21/21 16:45 Eosinophils % (Manual) 0 % (0.0-4.3) 10/21/21 16:45 Basophils % (Manual) 0 % (0.0-1.8) 10/21/21 16:45 Metamyelocytes % 0 % 10/21/21 16:45 Myelocytes % 0 % 10/21/21 16:45 Promyelocytes % 0 % 10/21/21 16:45 Blast Cells % 0 % 10/21/21 16:45 Nucleated RBC % Not Reportable 10/21/21 16:45 Seg Neutrophils # 14.5 K/mm3 (1.8-7.7) H 10/22/21 09:02 Seg Neutrophils # Man 18.7 K/mm3 (1.8-7.7) H 10/21/21 16:45 Band Neutrophils # 0.0 K/mm3 10/21/21 16:45 Lymphocytes # (Manual) 1.5 K/mm3 (1.2-5.4) 10/21/21 16:45 Abs React Lymphs (Man) 0.0 K/mm3 10/21/21 16:45 Monocytes # (Manual) 1.5 K/mm3 (0.0-0.8) H 10/21/21 16:45 Eosinophils # (Manual) 0.0 K/mm3 (0.0-0.4) 10/21/21 16:45 Basophils # (Manual) 0.0 K/mm3 (0.0-0.1) 10/21/21 16:45 Metamyelocytes # 0.0 K/mm3 10/21/21 16:45 Myelocytes # 0.0 K/mm3 10/21/21 16:45 Promyelocytes # 0.0 K/mm3 10/21/21 16:45 Blast Cells # 0.0 K/mm3 10/21/21 16:45 Pathologist Review 09/24/21 14:58 WBC Morphology Not Reportable 10/21/21 16:45 Hypersegmented Neuts Rare 10/21/21 16:45 Hyposegmented Neuts Not Reportable 10/21/21 16:45 Hypogranular Neuts Not Reportable 10/21/21 16:45 Smudge Cells Not Reportable 10/21/21 16:45 Toxic Granulation 2+ 10/21/21 16:45 Toxic Vacuolation Not Reportable 10/21/21 16:45 Dohle Bodies Not Reportable 10/21/21 16:45 Pelger-Huet Anomaly Not Reportable 10/21/21 16:45 Marlene Rods Not Reportable 10/21/21 16:45 Platelet Estimate Consistent w auto 10/21/21 16:45 Clumped Platelets Not Reportable 10/21/21 16:45 Plt Clumps, EDTA Not Reportable 10/21/21 16:45 Large Platelets Not Reportable 10/21/21 16:45 Giant Platelets Not Reportable 10/21/21 16:45 Platelet Satelliting Not Reportable 10/21/21 16:45 Plt Morphology Comment Not Reportable 10/21/21 16:45 RBC Morphology Normal 10/21/21 16:45 Dimorphic RBCs Not Reportable 10/21/21 16:45 Polychromasia Not Reportable 10/21/21 16:45 Hypochromasia Not Reportable 10/21/21 16:45 Poikilocytosis Not Reportable 10/21/21 16:45 Anisocytosis Not Reportable 10/21/21 16:45 Microcytosis Not Reportable 10/21/21 16:45 Macrocytosis Not Reportable 10/21/21 16:45 Spherocytes Not Reportable 10/21/21 16:45 Pappenheimer Bodies Not Reportable 10/21/21 16:45 Sickle Cells Not Reportable 10/21/21 16:45 Target Cells Not Reportable 10/21/21 16:45 Tear Drop Cells Not Reportable 10/21/21 16:45 Ovalocytes Not Reportable 10/21/21 16:45 Helmet Cells Not Reportable 10/21/21 16:45 Navas-[place] Bodies Not Reportable 10/21/21 16:45 Bieber Rings Not Reportable 10/21/21 16:45 Anusha Cells Not Reportable 10/21/21 16:45 Bite Cells Not Reportable 10/21/21 16:45 Crenated Cell Not Reportable 10/21/21 16:45 Elliptocytes Not Reportable 10/21/21 16:45 Acanthocytes (Spur) Not Reportable 10/21/21 16:45 Rouleaux Not Reportable 10/21/21 16:45 Hemoglobin C Crystals Not Reportable 10/21/21 16:45 Schistocytes Not Reportable 10/21/21 16:45 Malaria parasites Not Reportable 10/21/21 16:45 Flaco Bodies Not Reportable 10/21/21 16:45 Hem Pathologist Commnt No 10/21/21 16:45 PT 19.0 Sec. (12.2-14.9) H 10/14/21 04:05 INR 1.41 (0.87-1.13) H 10/14/21 04:05 APTT 33.9 Sec. (24.2-36.6) 10/14/21 04:05 D-Dimer > 53777 ng/mlDDU (0-234) H 10/09/21 08:45 ABG pH 7.509 pH Units (7.350-7.450) H 10/21/21 09:05 ABG pCO2 33.7 mm Hg 10/21/21 09:05 ABG pO2 60.3 mm Hg (80.0-90.0) L 10/21/21 09:05 ABG HCO3 26.2 mmol/L (20.0-26.0) H 10/21/21 09:05 ABG O2 Saturation 97.5 % (95.0-99.0) 10/21/21 09:05 ABG O2 Content 9.0 (0.0-44) 10/21/21 09:05 ABG Base Excess 3.0 mmol/L (-2.0-3.0) 10/21/21 09:05 ABG Hemoglobin 6.7 gm/dl (12.0-16.0) L 10/21/21 09:05 ABG Carboxyhemoglobin 1.8 % (0.0-5.0) 10/21/21 09:05 ABG Methemoglobin 0.4 % (0.0-1.5) 10/21/21 09:05 Oxyhemoglobin 95.3 % (95.0-99.0) 10/21/21 09:05 FiO2 28 % 10/21/21 09:05 Sodium 135 mmol/L (137-145) L 10/24/21 04:00 Potassium 4.2 mmol/L (3.6-5.0) 10/24/21 04:00 Chloride 100.2 mmol/L (98-107) 10/24/21 04:00 Carbon Dioxide 21 mmol/L (22-30) L 10/24/21 04:00 Anion Gap 18 mmol/L 10/24/21 04:00 BUN 26 mg/dL (7-17) H 10/24/21 04:00 Creatinine 0.9 mg/dL (0.6-1.2) 10/24/21 04:00 Estimated GFR > 60 ml/min 10/24/21 04:00 BUN/Creatinine Ratio 29 % 10/24/21 04:00 Glucose 122 mg/dL (65-100) H 10/24/21 04:00 POC Glucose 133 mg/dL (70-105) H 10/24/21 05:15 Lactic Acid 1.80 mmol/L (0.7-2.0) 10/10/21 04:10 Calcium 8.2 mg/dL (8.4-10.2) L 10/24/21 04:00 Phosphorus 3.60 mg/dL (2.5-4.5) 10/24/21 04:00 Magnesium 1.80 mg/dL (1.7-2.3) 10/24/21 04:00 Ferritin 751.9 ng/mL (10.0-200.0) H 10/09/21 05:31 Total Bilirubin 0.20 mg/dL (0.1-1.2) 10/18/21 04:28 AST 19 units/L (5-40) 10/18/21 04:28 ALT 6 units/L (7-56) L 10/18/21 04:28 Alkaline Phosphatase 53 units/L (35-129) 10/18/21 04:28 Lactate Dehydrogenase 472 units/L (91-180) H 10/09/21 05:31 Total Creatine Kinase 45 units/L (30-135) 10/13/21 04:05 C-Reactive Protein 15.90 mg/dL (0.00-1.30) H 10/09/21 05:31 Total Protein 6.1 g/dL (6.3-8.2) L 10/18/21 04:28 Albumin 2.0 g/dL (3.9-5) L 10/18/21 04:28 Albumin/Globulin Ratio 0.5 % 10/18/21 04:28 Triglycerides 80 mg/dL (2-149) 10/14/21 04:05 Procalcitonin 12.98 ng/mL (<0.15) 10/09/21 05:31 Urine Color Yellow (Yellow) 10/18/21 11:40 Urine Turbidity Clear (Clear) 10/18/21 11:40 Urine pH 6.0 (5.0-7.0) 10/18/21 11:40 Ur Specific [place] 1.015 (1.003-1.030) 10/18/21 11:40 Urine Protein 30 mg/dl mg/dL (Negative) 10/18/21 11:40 Urine Glucose (UA) Trace mg/dL (Negative) 10/18/21 11:40 Urine Ketones Negative mg/dL (Negative) 10/18/21 11:40 Urine Blood Moderate (Negative) A 10/18/21 11:40 Urine Nitrite Negative (Negative) 10/18/21 11:40 Ur Reducing Substances Not Reportable 09/24/21 14:49 Urine Bilirubin Negative (Negative) 10/18/21 11:40 Urine Ictotest Not Reportable 09/24/21 14:49 Urine Urobilinogen 0.0 mg/dL (<2.0) 10/18/21 11:40 Ur Leukocyte Esterase Negative (Negative) 10/18/21 11:40 Urine WBC (Auto) 50.0 /HPF (0.0-6.0) H 10/18/21 11:40 Urine RBC (Auto) > 182.0 /HPF (0.0-6.0) 10/18/21 11:40 U Epithel Cells (Auto) 2.0 /HPF (0-13.0) 10/18/21 11:40 Urine Bacteria (Auto) 2+ /HPF (Negative) 10/18/21 11:40 Urine WBC Clumps 1+ /HPF 10/18/21 11:40 Hyaline Casts Few /LPF 10/18/21 11:40 Granular Casts Few /LPF 10/18/21 11:40 Urine Mucus 3+ /HPF 10/18/21 11:40 Urine HCG, Qual Negative (Negative) 09/24/21 14:49 Coronavirus (PCR) Negative (Negative) 10/09/21 10:15 Blood Type A POSITIVE 10/17/21 12:50 Antibody Screen Negative 10/17/21 12:50 Crossmatch See Detail 10/17/21 12:50 Microbiology: Microbiology 10/18/21 08:17 Peripheral/Venous Blood Culture - Final NO GROWTH AFTER 5 DAYS 10/18/21 08:17 Peripheral/Venous Blood Culture - Final NO GROWTH AFTER 5 DAYS Brantley/IV: Voiding Method External Female Catheter Active Medications - Current Medications Current Medications: Generic Name Dose Route Start Last Admin Trade Name Freq PRN Reason Stop Dose Admin Acetaminophen 650 mg 10/08/21 21:38 Acetaminophen 325 Mg Tab PO Q6H PRN Pain, Mild (1-3) Albuterol 2.5 mg 09/24/21 18:07 Albuterol 2.5 Mg/3 Ml Nebu IH Q4HRT PRN Shortness Of Breath Dextrose 0 ml 10/03/21 12:37 Dextrose 10% *Hypoglycemia IV PRN PRN Hypoglycemia Diphenhydramine HCl 25 mg 10/04/21 15:14 10/22/21 23:56 Diphenhydramine 50 Mg/Ml Vial IV 25 mg Q6H PRN Administration Itching Furosemide 20 mg 10/23/21 15:00 10/24/21 06:00 Furosemide 20 Mg/2 Ml Inj IV 10/24/21 15:01 20 mg Q8H JAZ Administration Heparin Sodium (Porcine) 5,000 unit 10/16/21 10:00 10/23/21 22:01 Heparin 5,000 Unit/1 Ml Vial SUB-Q 5,000 unit Q12HR JAZ Administration Hydromorphone HCl 0.5 mg 10/18/21 15:39 10/24/21 02:18 Hydromorphone 1 Mg/1 Ml Inj IV 0.5 mg Q3H PRN Administration Pain, Moderate (4-6) Hydrophilic Ointment 1 applic 10/08/21 21:00 10/19/21 21:59 Lip Therapy Vaseline TP 1 applic Q2HR PRN Administration Dry Lips Fluconazole 200 mls @ 100 mls/hr 10/13/21 10:00 10/23/21 09:03 Diflucan IV 100 mls/hr Q24HR JAZ Administration Protocol Trimethoprim/Sulfamethoxazole 525 mls @ 167 mls/hr 10/18/21 12:00 10/24/21 05:39 400 mg/ Dextrose IV 167 mls/hr Q6HR JAZ Administration Protocol Dexmedetomidine HCl 400 mcg/ 104 mls @ 5.689 mls/hr 10/21/21 17:00 10/24/21 06:13 Sodium Chloride IV 0.4 mcg/kg/hr TITRATE JAZ 11.378 mls/hr Administration Protocol 0.2 MCG/KG/HR Amino Acids/Electrolytes/Dextrose 1,999.92 mls @ 83.33 mls/hr 10/23/21 20:00 10/23/21 22:00 Tpn Adult IV 10/24/21 19:59 83.33 mls/hr DAILY@1999 JAZ Administration Protocol Insulin Glargine 5 units 10/13/21 10:00 10/23/21 09:02 Insulin Glargine 100 Units/Ml SUB-Q 5 units QDAY JAZ Administration Insulin Human Regular 0 units 10/10/21 00:00 10/24/21 05:41 Insulin Regular, Human 100 Units/1 Ml SUB-Q 1 units Q6HR JAZ Administration Protocol Labetalol HCl 10 mg 10/01/21 08:31 10/20/21 09:56 Labetalol 20 Mg/4 Ml Inj IV 10 mg Q6H PRN Administration Hypertension Lorazepam 1 mg 10/21/21 12:48 10/22/21 20:06 Lorazepam 2 Mg/Ml Vial IV 1 mg Q4H PRN Administration Anxiety Multi-Ingred Cream/Lotion/Oil/Oint 1 applic 10/08/21 21:00 Mineral Oil/Petrolatum, White Ophth Oint 3.5 Gm OU Q4HR PRN Dry Eye(s) Naloxone HCl 0.1 mg 10/03/21 14:00 Naloxone 0.4 Mg/1 Ml Inj IV Q2MIN PRN Res Rate </= 8 or 02 SAT < 92% Nystatin 1 applic 10/18/21 14:00 10/23/21 22:01 Nystatin Powder 15 Gm TP 10/24/21 22:01 Not Given BID [facility] Ondansetron HCl 4 mg 09/24/21 18:07 10/20/21 06:04 Ondansetron 4 Mg/2 Ml Inj IV 4 mg Q8H PRN Administration Nausea And Vomiting Pantoprazole Sodium 40 mg 10/20/21 17:00 10/23/21 09:02 Pantoprazole 40 Mg Inj IV 40 mg QDAY [facility] Administration Phenol 1 spray 10/02/21 13:00 10/03/21 10:23 Phenol 1.4% 177 Ml Bottle MM 1 spray PRN PRN Administration Sore Throat Scopolamine 1 each 10/04/21 10:00 10/22/21 09:10 Scopolamine Transdermal Patch 72 Hr TD 1 each Q3D JAZ Administration Sodium Chloride 10 ml 09/24/21 22:00 10/23/21 22:01 Sodium Chloride 0.9% 10 Ml Flush Syringe IV 10 ml BID JAZ Administration Sodium Chloride 10 ml 09/24/21 18:07 09/25/21 08:34 Sodium Chloride 0.9% 10 Ml Flush Syringe IV 10 ml PRN PRN Administration LINE FLUSH Nutrition/Malnutrition Assess - Dietary Evaluation Nutrition/Malnutrition Findings: Nutrition Notes Start: 09/25/21 15:31 Freq: Status: Active Protocol: Document 10/23/21 13:46 RS (Rec: 10/23/21 14:24 RS [id number]) Nutrition Notes Initial or Follow up Reassessment Current Diagnosis Sepsis,Respiratory Failure Other Pertinent Diagnosis s/p appendectomy, s/p exp lap with colostomy, anemia Current Diet CPN at 83.33 ml/hr Labs/Tests BUN: 25 Glu: 123 CO2: 21 Pertinent Medications reviewed Height 5 ft 7 in Weight 109.4 kg [place] Body Weight (kg) 61.36 BMI 37.8 Weight change and time frame Unable to weigh pt; bed scale not zeroed properly Weight Status Obese Subjective/Other Information Day 21 CPN. Pt remains on continuous BiPap therapy and Precedex in NaCl for sedation. Percent of energy/protein needs met: 86% energy 98% pro Burn Absent Trauma Absent GI Symptoms Other Food Allergy No Skin Integrity/Comment Surgical wound Current % PO Other Minimum of two criteria No #1 Nutrition Diagnosis Altered GI function Diagnosis Progress(for reassessment Continues documentation) Is patient on ventilator? No Is Patient Ambulatory and/or Out of Bed No REE-([facility]-confined to bed) 2205.708 Kcal/Kg value to use for calculation 16 Approximate Energy Requirements Using 1750 kcal/Kg Calculation Used for Recommendations Kcal/kg Additional Notes Pro needs 2g/kg IBW: 123g/day Fluid needs 1ml/kcal Nutrition Intervention Nutrition Support: Continue CPN at 83.33ml/hr: MVI. Osmolality: 1570. 25/75 % Cl to Acetate ratio Kcal 1,500 Protein (gm) 120 Carbohydrates (gm) 300 Fat (gm) 0 Fluid (mL) 2,000 Fiber (gm) 0 Goal #1 CPN to meet at least 75% energy and pro needs Follow-Up By: 10/24/21 Additional Comments F/U for BMP, Mg, Phos in AM
[2021-10-24] MEDS: LIP THERAPY VASELINE TP PRN (12:50)
--- NOTE | 2021-10-24 15:28 | Progress Note ---
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 Open left hemicolectomy and partial omentectomy Peritonitis Leukocytosis Diverticulitis with absces -CT abd/pelvis showed diverticulitis with abscess -General surgery following, assistance appreciated -s/p diagnositic laparatomy and drain placement 09/26/2021 Returned to the OR on 09/30/2021 for left hemicolectomy, appendectomy, and partial omentectomy -Wound culture +VRE Acute renal failure / ATN/Vasomotor nephropathy Acute blood loss anemia Gross Hematuria-resolved -09/08 to surgical procedures-- c/f ureteral injury -s/p 3 units of pRBCs since admission Tolerating ice chips and sips of water Incentive spirometry. Continue with intermittent diuretic therapy fro another 24 hours OOB to chair, increase activity Keep Mg at 2, Potassium at 4 and Phosp at 2.5 -continue to titrate supplemental oxygen to keep SPO2 88-90% -CXR , ABG as indicated -trend temperature curve, trend WCC -Antibiotics per ID. -NPO, TPN for nutritional support - continue bronchodilators with pulmonary hygiene per RT -Incentive spirometry; PT/OT, increase activity as tolerated - Accuchecks with glycemic control per SSI (While critically ill target blood glucose of 140-180 mg/dL; avoid hypoglycemia) - continue to avoid benzodiazepines, reduce the possibility of delirium - Maintenance of sleep-wake cycle, avoid delirium -Supportive transfusions, to keep HgB >7g/dL -Avoid nephrotoxins and dose all medications for GFR and CrCL - mobility, off loading and frequent turning to prevent pressure ulcer - Monitor hemodynamics closely - continue other care per attending / other consultants CONDITION: FAIR PROGNOSIS: FAIR CODE STATUS: FULL CODE Subjective Date of service: 10/24/21 Principal diagnosis: BRYANNA Interval history: Patient is seen today for: Septic shock; AHRF; Anemia; Pneumonia (Aspiration); 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 s/p appendectomy; VRE infection; Open left hemicolectomy and partial omentectomy; Peritonitis; Diverticulitis with abscess;BRYANNA; ABLA; Gross Hematuria Seen and examined at bedside; 24hour events reviewed; nursing and respiratory care staff consulted; no adverse overnight events reported to me; resting in bed;denies acute chest pain; denies N/V/F/C;on supplemtnal oxygen at 3L NC "I feel much better." Objective Vital Signs - 12hr 10/24/21 10/24/21 10/24/21 03:30 04:00 04:30 Temperature 98.2 F Pulse Rate 83 74 69 Pulse Rate [ 74 From Monitor] Respiratory 28 H 30 H 30 H Rate Blood Pressure 129/96 130/94 133/94 O2 Sat by Pulse 99 98 98 Oximetry 10/24/21 10/24/21 10/24/21 05:00 05:30 06:00 Temperature Pulse Rate 73 70 71 Pulse Rate [ From Monitor] Respiratory 31 H 28 H 29 H Rate Blood Pressure 131/92 133/95 129/89 O2 Sat by Pulse 98 95 94 Oximetry 10/24/21 10/24/21 10/24/21 06:30 07:00 07:30 Temperature Pulse Rate 72 81 77 Pulse Rate [ From Monitor] Respiratory 20 34 H 29 H Rate Blood Pressure 119/82 112/73 114/79 O2 Sat by Pulse 96 Oximetry 10/24/21 10/24/21 10/24/21 08:00 08:30 09:00 Temperature 98.1 F Pulse Rate 78 84 87 Pulse Rate [ 78 From Monitor] Respiratory 24 24 30 H Rate Blood Pressure 109/73 116/80 110/76 O2 Sat by Pulse 99 97 98 Oximetry 10/24/21 10/24/21 10/24/21 09:30 10:00 10:30 Temperature Pulse Rate 81 83 77 Pulse Rate [ From Monitor] Respiratory 24 23 26 H Rate Blood Pressure 118/76 120/82 125/83 O2 Sat by Pulse 100 100 Oximetry 10/24/21 10/24/21 10/24/21 11:00 11:30 12:00 Temperature Pulse Rate 78 83 80 Pulse Rate [ 80 From Monitor] Respiratory 22 21 22 Rate Blood Pressure 120/82 127/84 118/88 O2 Sat by Pulse 98 96 98 Oximetry 10/24/21 10/24/21 10/24/21 12:30 13:01 13:31 Temperature Pulse Rate 82 80 77 Pulse Rate [ From Monitor] Respiratory 27 H 17 28 H Rate Blood Pressure 117/85 130/84 126/85 O2 Sat by Pulse 97 98 97 Oximetry 10/24/21 13:36 Temperature 98.5 F Pulse Rate Pulse Rate [ From Monitor] Respiratory Rate Blood Pressure O2 Sat by Pulse Oximetry Constitutional: no acute distress, alert Eyes: non-icteric ENT: oropharynx moist, other (RIJ CVL) Neck: supple, other (RIJCVL) Effort: normal Ascultation: Bilateral: diminished breath sounds, rhonchi Percussion: Bilateral: not dull Cardiovascular: regular rate and rhythm, other (S1,S2) Gastrointestinal: hypoactive bowel sounds, other (YURIDIA drains, anterior abdominal dressings, Doss catheter) Integumentary: other (tatooed) Extremities: cool, edema Neurologic: normal mental status, non-focal exam, pupils equal and round, motor strength normal and Psychiatric: mood appropriate, affect normal CBC and BMP: 10/24/21 04:00 10/24/21 04:00 ABG, PT/INR, D-dimer: ABG ABG pH 7.509 pH Units (7.350-7.450) H 10/21/21 09:05 ABG pCO2 33.7 mm Hg 10/21/21 09:05 ABG pO2 60.3 mm Hg (80.0-90.0) L 10/21/21 09:05 ABG O2 Saturation 97.5 % (95.0-99.0) 10/21/21 09:05 PT/INR, D-dimer PT 19.0 Sec. (12.2-14.9) H 10/14/21 04:05 INR 1.41 (0.87-1.13) H 10/14/21 04:05 D-Dimer > 47599 ng/mlDDU (0-234) H 10/09/21 08:45 Abnormal lab findings: Abnormal Labs 09/24/21 09/24/21 09/24/21 14:49 14:58 14:58 WBC 32.4 H RBC Hgb Hct MCH MCHC RDW Plt Count 535 H Lymph % (Auto) [place] % (Auto) Lymph # (Auto) [place] # (Auto) Seg Neutrophils % Seg Neuts % (Manual) 82.0 H Lymphocytes % (Manual) 2.0 L Monocytes % (Manual) Nucleated RBC % Seg Neutrophils # Seg Neutrophils # Man 26.6 H Lymphocytes # (Manual) 0.6 L Monocytes # (Manual) 1.6 H PT INR D-Dimer ABG pH ABG pO2 ABG HCO3 ABG O2 Saturation ABG Base Excess ABG Hemoglobin Oxyhemoglobin Sodium 134 L Potassium 3.5 L Chloride 97.6 L Carbon Dioxide BUN Creatinine Glucose 119 H POC Glucose Lactic Acid Calcium Phosphorus Magnesium Ferritin ALT Lactate Dehydrogenase Total Creatine Kinase C-Reactive Protein Total Protein 6.1 L Albumin 3.3 L Urine Blood Urine WBC (Auto) U Epithel Cells (Auto) 18.0 H Crossmatch 09/25/21 09/25/21 09/26/21 05:47 05:47 04:20 WBC 25.4 H 23.6 H RBC 3.54 L Hgb Hct MCH MCHC RDW Plt Count 466 H 486 H Lymph % (Auto) [place] % (Auto) Lymph # (Auto) [place] # (Auto) Seg Neutrophils % Seg Neuts % (Manual) 93.0 H 86.0 H Lymphocytes % (Manual) 4.0 L 3.0 L Monocytes % (Manual) Nucleated RBC % Seg Neutrophils # Seg Neutrophils # Man 23.6 H 20.3 H Lymphocytes # (Manual) 1.0 L 0.7 L Monocytes # (Manual) 0.9 H PT INR D-Dimer ABG pH ABG pO2 ABG HCO3 ABG O2 Saturation ABG Base Excess ABG Hemoglobin Oxyhemoglobin Sodium 136 L Potassium 3.0 L Chloride Carbon Dioxide 21 L BUN Creatinine Glucose POC Glucose Lactic Acid Calcium 7.8 L Phosphorus Magnesium Ferritin ALT Lactate Dehydrogenase Total Creatine Kinase C-Reactive Protein Total Protein Albumin Urine Blood Urine WBC (Auto) U Epithel Cells (Auto) Crossmatch 09/26/21 09/27/21 09/27/21 04:20 08:28 08:28 WBC 20.6 H RBC 3.42 L Hgb 9.9 L Hct 29.5 L D MCH MCHC RDW Plt Count Lymph % (Auto) [place] % (Auto) Lymph # (Auto) [place] # (Auto) Seg Neutrophils % Seg Neuts % (Manual) 94.1 H Lymphocytes % (Manual) 1.0 L Monocytes % (Manual) Nucleated RBC % Seg Neutrophils # Seg Neutrophils # Man 19.4 H Lymphocytes # (Manual) 0.2 L Monocytes # (Manual) PT INR D-Dimer ABG pH ABG pO2 ABG HCO3 ABG O2 Saturation ABG Base Excess ABG Hemoglobin Oxyhemoglobin Sodium Potassium 3.2 L Chloride Carbon Dioxide 20 L BUN Creatinine Glucose 137 H POC Glucose Lactic Acid Calcium 8.3 L 8.2 L Phosphorus Magnesium Ferritin ALT Lactate Dehydrogenase Total Creatine Kinase C-Reactive Protein Total Protein Albumin Urine Blood Urine WBC (Auto) U Epithel Cells (Auto) Crossmatch 09/28/21 09/28/21 09/29/21 04:55 15:35 07:02 WBC 15.1 H 16.5 H RBC 3.34 L 3.20 L Hgb 9.3 L 9.1 L Hct 28.7 L 27.3 L MCH MCHC RDW 15.3 H Plt Count 444 H 469 H Lymph % (Auto) [place] % (Auto) Lymph # (Auto) [place] # (Auto) 0.9 H Seg Neutrophils % 89.3 H Seg Neuts % (Manual) 88.0 H 80.0 H Lymphocytes % (Manual) 9.0 L 8.0 L Monocytes % (Manual) Nucleated RBC % Seg Neutrophils # 14.0 H Seg Neutrophils # Man 13.3 H 13.2 H Lymphocytes # (Manual) Monocytes # (Manual) PT INR D-Dimer ABG pH ABG pO2 ABG HCO3 ABG O2 Saturation ABG Base Excess ABG Hemoglobin Oxyhemoglobin Sodium Potassium 3.3 L Chloride 109.4 H Carbon Dioxide 20 L BUN Creatinine 0.5 L Glucose POC Glucose Lactic Acid Calcium 7.9 L Phosphorus Magnesium Ferritin ALT Lactate Dehydrogenase Total Creatine Kinase C-Reactive Protein Total Protein Albumin Urine Blood Urine WBC (Auto) U Epithel Cells (Auto) Crossmatch 09/30/21 09/30/21 10/01/21 05:40 05:40 07:49 WBC 17.4 H 17.9 H RBC 3.37 L 3.32 L Hgb 9.2 L 9.3 L Hct 28.4 L 28.3 L MCH 27 L MCHC RDW 15.4 H 15.5 H Plt Count 530 H 604 H Lymph % (Auto) [place] % (Auto) Lymph # (Auto) [place] # (Auto) Seg Neutrophils % Seg Neuts % (Manual) 91.0 H 72.0 H Lymphocytes % (Manual) 9.0 L 1.0 L Monocytes % (Manual) 8.0 H Nucleated RBC % 1.0 H Seg Neutrophils # Seg Neutrophils # Man 15.8 H 12.9 H Lymphocytes # (Manual) 0.2 L Monocytes # (Manual) 1.4 H PT INR D-Dimer ABG pH ABG pO2 ABG HCO3 ABG O2 Saturation ABG Base Excess ABG Hemoglobin Oxyhemoglobin Sodium Potassium 3.5 L Chloride Carbon Dioxide 21 L BUN Creatinine 0.5 L Glucose POC Glucose Lactic Acid Calcium 8.0 L Phosphorus Magnesium Ferritin ALT Lactate Dehydrogenase Total Creatine Kinase C-Reactive Protein Total Protein Albumin Urine Blood Urine WBC (Auto) U Epithel Cells (Auto) Crossmatch 10/01/21 10/01/21 10/02/21 07:49 10:45 05:41 WBC 23.2 H RBC 2.90 L Hgb 7.9 L Hct 24.8 L MCH 27 L MCHC RDW 15.3 H Plt Count 621 H Lymph % (Auto) [place] % (Auto) Lymph # (Auto) [place] # (Auto) Seg Neutrophils % Seg Neuts % (Manual) 88.0 H Lymphocytes % (Manual) 2.0 L Monocytes % (Manual) Nucleated RBC % Seg Neutrophils # Seg Neutrophils # Man 20.4 H Lymphocytes # (Manual) 0.5 L Monocytes # (Manual) 1.4 H PT INR D-Dimer ABG pH ABG pO2 ABG HCO3 ABG O2 Saturation ABG Base Excess ABG Hemoglobin Oxyhemoglobin Sodium Potassium Chloride Carbon Dioxide 20 L BUN Creatinine 0.5 L Glucose POC Glucose Lactic Acid Calcium 7.6 L Phosphorus Magnesium Ferritin ALT Lactate Dehydrogenase Total Creatine Kinase C-Reactive Protein Total Protein Albumin Urine Blood Urine WBC (Auto) U Epithel Cells (Auto) Crossmatch See Detail 10/02/21 10/02/21 10/02/21 05:41 07:47 11:10 WBC RBC Hgb Hct MCH MCHC RDW Plt Count Lymph % (Auto) [place] % (Auto) Lymph # (Auto) [place] # (Auto) Seg Neutrophils % Seg Neuts % (Manual) Lymphocytes % (Manual) Monocytes % (Manual) Nucleated RBC % Seg Neutrophils # Seg Neutrophils # Man Lymphocytes # (Manual) Monocytes # (Manual) PT INR D-Dimer ABG pH ABG pO2 ABG HCO3 ABG O2 Saturation ABG Base Excess ABG Hemoglobin Oxyhemoglobin Sodium Potassium Chloride Carbon Dioxide BUN Creatinine Glucose 130 H POC Glucose 145 H 120 H Lactic Acid Calcium 6.9 L Phosphorus Magnesium Ferritin ALT Lactate Dehydrogenase Total Creatine Kinase C-Reactive Protein Total Protein Albumin Urine Blood Urine WBC (Auto) U Epithel Cells (Auto) Crossmatch 10/02/21 10/03/21 10/03/21 16:14 04:55 04:55 WBC 26.1 H RBC 2.31 L Hgb 6.3 L Hct 19.8 L* MCH MCHC RDW 15.9 H Plt Count 598 H Lymph % (Auto) [place] % (Auto) Lymph # (Auto) [place] # (Auto) Seg Neutrophils % Seg Neuts % (Manual) 82.0 H Lymphocytes % (Manual) 1.0 L Monocytes % (Manual) 10.0 H Nucleated RBC % Seg Neutrophils # Seg Neutrophils # Man 21.4 H Lymphocytes # (Manual) 0.3 L Monocytes # (Manual) 2.6 H PT INR D-Dimer ABG pH ABG pO2 ABG HCO3 ABG O2 Saturation ABG Base Excess ABG Hemoglobin Oxyhemoglobin Sodium Potassium Chloride Carbon Dioxide BUN 22 H Creatinine 1.7 H D Glucose 145 H POC Glucose 109 H Lactic Acid Calcium 6.4 L Phosphorus Magnesium 2.40 H Ferritin ALT Lactate Dehydrogenase Total Creatine Kinase C-Reactive Protein Total Protein 4.2 L Albumin 1.6 L Urine Blood Urine WBC (Auto) U Epithel Cells (Auto) Crossmatch 10/03/21 10/03/21 10/03/21 07:15 11:49 17:06 WBC RBC Hgb Hct MCH MCHC RDW Plt Count Lymph % (Auto) [place] % (Auto) Lymph # (Auto) [place] # (Auto) Seg Neutrophils % Seg Neuts % (Manual) Lymphocytes % (Manual) Monocytes % (Manual) Nucleated RBC % Seg Neutrophils # Seg Neutrophils # Man Lymphocytes # (Manual) Monocytes # (Manual) PT INR D-Dimer ABG pH ABG pO2 ABG HCO3 ABG O2 Saturation ABG Base Excess ABG Hemoglobin Oxyhemoglobin Sodium Potassium Chloride Carbon Dioxide BUN Creatinine Glucose POC Glucose 162 H 171 H 174 H Lactic Acid Calcium Phosphorus Magnesium Ferritin ALT Lactate Dehydrogenase Total Creatine Kinase C-Reactive Protein Total Protein Albumin Urine Blood Urine WBC (Auto) U Epithel Cells (Auto) Crossmatch 10/03/21 10/04/21 10/04/21 23:31 04:44 04:44 WBC 26.4 H RBC 2.33 L Hgb 6.6 L Hct 19.4 L* MCH MCHC RDW 16.1 H Plt Count 602 H Lymph % (Auto) [place] % (Auto) Lymph # (Auto) [place] # (Auto) Seg Neutrophils % Seg Neuts % (Manual) 80.0 H Lymphocytes % (Manual) 5.0 L Monocytes % (Manual) Nucleated RBC % Seg Neutrophils # Seg Neutrophils # Man 21.1 H Lymphocytes # (Manual) Monocytes # (Manual) 1.8 H PT INR D-Dimer ABG pH ABG pO2 ABG HCO3 ABG O2 Saturation ABG Base Excess ABG Hemoglobin Oxyhemoglobin Sodium 135 L Potassium 3.4 L Chloride Carbon Dioxide 21 L BUN 28 H Creatinine 2.0 H Glucose 171 H POC Glucose 179 H Lactic Acid Calcium 6.7 L Phosphorus 1.30 L D Magnesium 2.40 H Ferritin ALT Lactate Dehydrogenase Total Creatine Kinase C-Reactive Protein Total Protein Albumin Urine Blood Urine WBC (Auto) U Epithel Cells (Auto) Crossmatch 10/04/21 10/04/21 10/04/21 05:25 12:01 13:30 WBC RBC Hgb Hct MCH MCHC RDW Plt Count Lymph % (Auto) [place] % (Auto) Lymph # (Auto) [place] # (Auto) Seg Neutrophils % Seg Neuts % (Manual) Lymphocytes % (Manual) Monocytes % (Manual) Nucleated RBC % Seg Neutrophils # Seg Neutrophils # Man Lymphocytes # (Manual) Monocytes # (Manual) PT INR D-Dimer ABG pH ABG pO2 ABG HCO3 ABG O2 Saturation ABG Base Excess ABG Hemoglobin Oxyhemoglobin Sodium Potassium Chloride Carbon Dioxide BUN Creatinine Glucose POC Glucose 174 H 172 H Lactic Acid Calcium Phosphorus Magnesium Ferritin ALT Lactate Dehydrogenase Total Creatine Kinase C-Reactive Protein Total Protein Albumin Urine Blood Urine WBC (Auto) U Epithel Cells (Auto) Crossmatch See Detail 10/04/21 10/04/21 10/04/21 16:47 20:28 22:23 WBC RBC Hgb 8.5 L Hct 25.1 L MCH MCHC RDW Plt Count Lymph % (Auto) [place] % (Auto) Lymph # (Auto) [place] # (Auto) Seg Neutrophils % Seg Neuts % (Manual) Lymphocytes % (Manual) Monocytes % (Manual) Nucleated RBC % Seg Neutrophils # Seg Neutrophils # Man Lymphocytes # (Manual) Monocytes # (Manual) PT INR D-Dimer ABG pH ABG pO2 ABG HCO3 ABG O2 Saturation ABG Base Excess ABG Hemoglobin Oxyhemoglobin Sodium Potassium Chloride Carbon Dioxide BUN Creatinine Glucose POC Glucose 135 H 152 H Lactic Acid Calcium Phosphorus Magnesium Ferritin ALT Lactate Dehydrogenase Total Creatine Kinase C-Reactive Protein Total Protein Albumin Urine Blood Urine WBC (Auto) U Epithel Cells (Auto) Crossmatch 10/05/21 10/05/21 10/05/21 04:40 04:40 04:40 WBC 24.7 H RBC 3.02 L Hgb 8.4 L Hct 25.5 L MCH MCHC RDW 16.2 H Plt Count 644 H Lymph % (Auto) [place] % (Auto) Lymph # (Auto) [place] # (Auto) Seg Neutrophils % Seg Neuts % (Manual) 91.0 H Lymphocytes % (Manual) 7.0 L Monocytes % (Manual) Nucleated RBC % Seg Neutrophils # Seg Neutrophils # Man 22.5 H Lymphocytes # (Manual) Monocytes # (Manual) PT 17.8 H INR 1.31 H D-Dimer ABG pH ABG pO2 ABG HCO3 ABG O2 Saturation ABG Base Excess ABG Hemoglobin Oxyhemoglobin Sodium 135 L Potassium Chloride Carbon Dioxide BUN 29 H Creatinine 2.1 H Glucose 156 H POC Glucose Lactic Acid Calcium 7.6 L Phosphorus 1.90 L D Magnesium Ferritin ALT Lactate Dehydrogenase Total Creatine Kinase C-Reactive Protein Total Protein 5.2 L D Albumin 1.8 L Urine Blood Urine WBC (Auto) U Epithel Cells (Auto) Crossmatch 10/05/21 10/05/21 10/05/21 05:08 18:17 23:37 WBC RBC Hgb Hct MCH MCHC RDW Plt Count Lymph % (Auto) [place] % (Auto) Lymph # (Auto) [place] # (Auto) Seg Neutrophils % Seg Neuts % (Manual) Lymphocytes % (Manual) Monocytes % (Manual) Nucleated RBC % Seg Neutrophils # Seg Neutrophils # Man Lymphocytes # (Manual) Monocytes # (Manual) PT INR D-Dimer ABG pH ABG pO2 ABG HCO3 ABG O2 Saturation ABG Base Excess ABG Hemoglobin Oxyhemoglobin Sodium Potassium Chloride Carbon Dioxide BUN Creatinine Glucose POC Glucose 156 H 119 H 130 H Lactic Acid Calcium Phosphorus Magnesium Ferritin ALT Lactate Dehydrogenase Total Creatine Kinase C-Reactive Protein Total Protein Albumin Urine Blood Urine WBC (Auto) U Epithel Cells (Auto) Crossmatch 10/06/21 10/06/21 10/06/21 04:27 05:27 05:27 WBC 23.4 H RBC 2.84 L Hgb 7.8 L Hct 23.9 L MCH MCHC RDW 16.2 H Plt Count 712 H Lymph % (Auto) [place] % (Auto) Lymph # (Auto) [place] # (Auto) Seg Neutrophils % Seg Neuts % (Manual) Lymphocytes % (Manual) Monocytes % (Manual) Nucleated RBC % Seg Neutrophils # Seg Neutrophils # Man Lymphocytes # (Manual) Monocytes # (Manual) PT INR D-Dimer ABG pH ABG pO2 ABG HCO3 ABG O2 Saturation ABG Base Excess ABG Hemoglobin Oxyhemoglobin Sodium 134 L Potassium Chloride Carbon Dioxide 20 L BUN 28 H Creatinine 1.9 H Glucose 132 H POC Glucose 132 H Lactic Acid Calcium 7.8 L Phosphorus Magnesium Ferritin ALT Lactate Dehydrogenase Total Creatine Kinase 242 H C-Reactive Protein Total Protein Albumin Urine Blood Urine WBC (Auto) U Epithel Cells (Auto) Crossmatch 10/06/21 10/06/21 10/06/21 16:40 20:50 23:39 WBC RBC Hgb Hct MCH MCHC RDW Plt Count Lymph % (Auto) [place] % (Auto) Lymph # (Auto) [place] # (Auto) Seg Neutrophils % Seg Neuts % (Manual) Lymphocytes % (Manual) Monocytes % (Manual) Nucleated RBC % Seg Neutrophils # Seg Neutrophils # Man Lymphocytes # (Manual) Monocytes # (Manual) PT INR D-Dimer ABG pH ABG pO2 ABG HCO3 ABG O2 Saturation ABG Base Excess ABG Hemoglobin Oxyhemoglobin Sodium Potassium Chloride Carbon Dioxide BUN Creatinine Glucose POC Glucose 133 H 116 H 132 H Lactic Acid Calcium Phosphorus Magnesium Ferritin ALT Lactate Dehydrogenase Total Creatine Kinase C-Reactive Protein Total Protein Albumin Urine Blood Urine WBC (Auto) U Epithel Cells (Auto) Crossmatch 10/07/21 10/07/21 10/07/21 05:09 05:13 09:43 WBC 22.3 H RBC 2.81 L Hgb 7.8 L Hct 24.0 L MCH MCHC RDW 16.5 H Plt Count 733 H Lymph % (Auto) [place] % (Auto) Lymph # (Auto) [place] # (Auto) Seg Neutrophils % Seg Neuts % (Manual) 85.0 H Lymphocytes % (Manual) 1.0 L Monocytes % (Manual) Nucleated RBC % Seg Neutrophils # Seg Neutrophils # Man 19.0 H Lymphocytes # (Manual) 0.2 L Monocytes # (Manual) 1.6 H PT INR D-Dimer ABG pH ABG pO2 ABG HCO3 ABG O2 Saturation ABG Base Excess ABG Hemoglobin Oxyhemoglobin Sodium 136 L Potassium Chloride Carbon Dioxide 20 L BUN 29 H Creatinine 1.9 H Glucose 140 H POC Glucose 139 H Lactic Acid Calcium 7.6 L Phosphorus Magnesium Ferritin ALT Lactate Dehydrogenase Total Creatine Kinase C-Reactive Protein Total Protein Albumin Urine Blood Urine WBC (Auto) U Epithel Cells (Auto) Crossmatch 10/07/21 10/07/21 10/08/21 11:38 17:44 00:20 WBC RBC Hgb Hct MCH MCHC RDW Plt Count Lymph % (Auto) [place] % (Auto) Lymph # (Auto) [place] # (Auto) Seg Neutrophils % Seg Neuts % (Manual) Lymphocytes % (Manual) Monocytes % (Manual) Nucleated RBC % Seg Neutrophils # Seg Neutrophils # Man Lymphocytes # (Manual) Monocytes # (Manual) PT INR D-Dimer ABG pH ABG pO2 ABG HCO3 ABG O2 Saturation ABG Base Excess ABG Hemoglobin Oxyhemoglobin Sodium Potassium Chloride Carbon Dioxide BUN Creatinine Glucose POC Glucose 126 H 113 H 129 H Lactic Acid Calcium Phosphorus Magnesium Ferritin ALT Lactate Dehydrogenase Total Creatine Kinase C-Reactive Protein Total Protein Albumin Urine Blood Urine WBC (Auto) U Epithel Cells (Auto) Crossmatch 10/08/21 10/08/21 10/08/21 05:26 05:26 05:29 WBC 21.8 H RBC 2.84 L Hgb 7.8 L Hct 24.1 L MCH 27 L MCHC RDW 16.5 H Plt Count 789 H Lymph % (Auto) [place] % (Auto) Lymph # (Auto) [place] # (Auto) Seg Neutrophils % Seg Neuts % (Manual) Lymphocytes % (Manual) Monocytes % (Manual) Nucleated RBC % Seg Neutrophils # Seg Neutrophils # Man Lymphocytes # (Manual) Monocytes # (Manual) PT INR D-Dimer ABG pH ABG pO2 ABG HCO3 ABG O2 Saturation ABG Base Excess ABG Hemoglobin Oxyhemoglobin Sodium 136 L Potassium Chloride Carbon Dioxide 20 L BUN 31 H Creatinine 1.7 H Glucose 134 H POC Glucose 123 H Lactic Acid Calcium 7.9 L Phosphorus 4.60 H D Magnesium Ferritin ALT Lactate Dehydrogenase Total Creatine Kinase C-Reactive Protein Total Protein Albumin Urine Blood Urine WBC (Auto) U Epithel Cells (Auto) Crossmatch 10/08/21 10/08/21 10/08/21 11:53 17:07 20:08 WBC RBC Hgb Hct MCH MCHC RDW Plt Count Lymph % (Auto) [place] % (Auto) Lymph # (Auto) [place] # (Auto) Seg Neutrophils % Seg Neuts % (Manual) Lymphocytes % (Manual) Monocytes % (Manual) Nucleated RBC % Seg Neutrophils # Seg Neutrophils # Man Lymphocytes # (Manual) Monocytes # (Manual) PT INR D-Dimer ABG pH 7.308 L ABG pO2 40.2 L ABG HCO3 15.7 L ABG O2 Saturation 68 L ABG Base Excess -9.6 L ABG Hemoglobin 9.7 L Oxyhemoglobin 67.8 L Sodium Potassium Chloride Carbon Dioxide BUN Creatinine Glucose POC Glucose 128 H 139 H Lactic Acid Calcium Phosphorus Magnesium Ferritin ALT Lactate Dehydrogenase Total Creatine Kinase C-Reactive Protein Total Protein Albumin Urine Blood Urine WBC (Auto) U Epithel Cells (Auto) Crossmatch 10/08/21 10/08/21 10/08/21 21:30 22:55 22:55 WBC RBC Hgb Hct MCH MCHC RDW Plt Count Lymph % (Auto) [place] % (Auto) Lymph # (Auto) [place] # (Auto) Seg Neutrophils % Seg Neuts % (Manual) Lymphocytes % (Manual) Monocytes % (Manual) Nucleated RBC % Seg Neutrophils # Seg Neutrophils # Man Lymphocytes # (Manual) Monocytes # (Manual) PT INR D-Dimer ABG pH ABG pO2 43.8 L ABG HCO3 19.5 L ABG O2 Saturation 70.7 L ABG Base Excess -5.3 L ABG Hemoglobin 8.6 L Oxyhemoglobin 69.4 L Sodium Potassium Chloride Carbon Dioxide BUN Creatinine Glucose POC Glucose Lactic Acid 2.50 H* Calcium Phosphorus Magnesium Ferritin ALT Lactate Dehydrogenase Total Creatine Kinase C-Reactive Protein Total Protein Albumin Urine Blood Urine WBC (Auto) U Epithel Cells (Auto) Crossmatch See Detail 10/09/21 10/09/21 10/09/21 03:12 05:31 05:31 WBC 20.3 H RBC 2.70 L Hgb 7.4 L Hct 23.1 L MCH 27 L MCHC RDW 16.6 H Plt Count 786 H Lymph % (Auto) [place] % (Auto) Lymph # (Auto) [place] # (Auto) Seg Neutrophils % Seg Neuts % (Manual) 88.0 H Lymphocytes % (Manual) 3.0 L Monocytes % (Manual) Nucleated RBC % Seg Neutrophils # Seg Neutrophils # Man 17.9 H Lymphocytes # (Manual) 0.6 L Monocytes # (Manual) 1.2 H PT INR D-Dimer ABG pH ABG pO2 ABG HCO3 ABG O2 Saturation ABG Base Excess ABG Hemoglobin Oxyhemoglobin Sodium 136 L Potassium Chloride Carbon Dioxide 20 L BUN 32 H Creatinine 1.5 H Glucose 214 H POC Glucose 190 H Lactic Acid Calcium 7.5 L Phosphorus Magnesium Ferritin ALT Lactate Dehydrogenase Total Creatine Kinase C-Reactive Protein Total Protein 5.8 L Albumin 2.3 L Urine Blood Urine WBC (Auto) U Epithel Cells (Auto) Crossmatch 10/09/21 10/09/21 10/09/21 05:31 05:31 05:31 WBC RBC Hgb Hct MCH MCHC RDW Plt Count Lymph % (Auto) [place] % (Auto) Lymph # (Auto) [place] # (Auto) Seg Neutrophils % Seg Neuts % (Manual) Lymphocytes % (Manual) Monocytes % (Manual) Nucleated RBC % Seg Neutrophils # Seg Neutrophils # Man Lymphocytes # (Manual) Monocytes # (Manual) PT INR D-Dimer ABG pH ABG pO2 ABG HCO3 ABG O2 Saturation ABG Base Excess ABG Hemoglobin Oxyhemoglobin Sodium Potassium Chloride Carbon Dioxide BUN Creatinine Glucose POC Glucose Lactic Acid 2.20 H* Calcium Phosphorus Magnesium Ferritin 751.9 H ALT Lactate Dehydrogenase Total Creatine Kinase C-Reactive Protein 15.90 H Total Protein Albumin Urine Blood Urine WBC (Auto) U Epithel Cells (Auto) Crossmatch 10/09/21 10/09/21 10/09/21 05:31 08:45 12:08 WBC RBC Hgb Hct MCH MCHC RDW Plt Count Lymph % (Auto) [place] % (Auto) Lymph # (Auto) [place] # (Auto) Seg Neutrophils % Seg Neuts % (Manual) Lymphocytes % (Manual) Monocytes % (Manual) Nucleated RBC % Seg Neutrophils # Seg Neutrophils # Man Lymphocytes # (Manual) Monocytes # (Manual) PT INR D-Dimer > 66083 H ABG pH ABG pO2 54.3 L ABG HCO3 ABG O2 Saturation 86.6 L ABG Base Excess -2.6 L ABG Hemoglobin 7.2 L Oxyhemoglobin 85.3 L Sodium Potassium Chloride Carbon Dioxide BUN Creatinine Glucose POC Glucose Lactic Acid Calcium Phosphorus Magnesium Ferritin ALT Lactate Dehydrogenase 472 H Total Creatine Kinase C-Reactive Protein Total Protein Albumin Urine Blood Urine WBC (Auto) U Epithel Cells (Auto) Crossmatch 10/09/21 10/09/21 10/10/21 12:19 17:43 00:30 WBC RBC Hgb Hct MCH MCHC RDW Plt Count Lymph % (Auto) [place] % (Auto) Lymph # (Auto) [place] # (Auto) Seg Neutrophils % Seg Neuts % (Manual) Lymphocytes % (Manual) Monocytes % (Manual) Nucleated RBC % Seg Neutrophils # Seg Neutrophils # Man Lymphocytes # (Manual) Monocytes # (Manual) PT INR D-Dimer ABG pH ABG pO2 ABG HCO3 ABG O2 Saturation ABG Base Excess ABG Hemoglobin Oxyhemoglobin Sodium Potassium Chloride Carbon Dioxide BUN Creatinine Glucose POC Glucose 151 H 136 H 132 H Lactic Acid Calcium Phosphorus Magnesium Ferritin ALT Lactate Dehydrogenase Total Creatine Kinase C-Reactive Protein Total Protein Albumin Urine Blood Urine WBC (Auto) U Epithel Cells (Auto) Crossmatch 10/10/21 10/10/21 10/10/21 04:10 04:10 05:41 WBC 20.8 H RBC 2.54 L Hgb 7.1 L Hct 21.8 L MCH MCHC RDW 16.6 H Plt Count 740 H Lymph % (Auto) [place] % (Auto) Lymph # (Auto) [place] # (Auto) Seg Neutrophils % Seg Neuts % (Manual) Lymphocytes % (Manual) Monocytes % (Manual) Nucleated RBC % Seg Neutrophils # Seg Neutrophils # Man Lymphocytes # (Manual) Monocytes # (Manual) PT INR D-Dimer ABG pH ABG pO2 ABG HCO3 ABG O2 Saturation ABG Base Excess ABG Hemoglobin Oxyhemoglobin Sodium 130 L Potassium Chloride 97.9 L Carbon Dioxide 19 L BUN 37 H Creatinine 1.4 H Glucose 181 H POC Glucose 150 H Lactic Acid Calcium 7.8 L Phosphorus Magnesium Ferritin ALT Lactate Dehydrogenase Total Creatine Kinase C-Reactive Protein Total Protein Albumin Urine Blood Urine WBC (Auto) U Epithel Cells (Auto) Crossmatch 10/10/21 10/10/21 10/10/21 11:10 16:00 23:50 WBC RBC Hgb Hct MCH MCHC RDW Plt Count Lymph % (Auto) [place] % (Auto) Lymph # (Auto) [place] # (Auto) Seg Neutrophils % Seg Neuts % (Manual) Lymphocytes % (Manual) Monocytes % (Manual) Nucleated RBC % Seg Neutrophils # Seg Neutrophils # Man Lymphocytes # (Manual) Monocytes # (Manual) PT INR D-Dimer ABG pH ABG pO2 ABG HCO3 ABG O2 Saturation ABG Base Excess ABG Hemoglobin Oxyhemoglobin Sodium Potassium Chloride Carbon Dioxide BUN Creatinine Glucose POC Glucose 136 H 151 H 129 H Lactic Acid Calcium Phosphorus Magnesium Ferritin ALT Lactate Dehydrogenase Total Creatine Kinase C-Reactive Protein Total Protein Albumin Urine Blood Urine WBC (Auto) U Epithel Cells (Auto) Crossmatch 10/10/21 10/11/21 10/11/21 Unknown 03:30 03:30 WBC 23.2 H RBC 2.39 L Hgb 6.7 L Hct 20.3 L MCH MCHC RDW 16.7 H Plt Count 701 H Lymph % (Auto) [place] % (Auto) Lymph # (Auto) [place] # (Auto) Seg Neutrophils % Seg Neuts % (Manual) Lymphocytes % (Manual) Monocytes % (Manual) Nucleated RBC % Seg Neutrophils # Seg Neutrophils # Man Lymphocytes # (Manual) Monocytes # (Manual) PT INR D-Dimer ABG pH 7.505 H ABG pO2 246.1 H ABG HCO3 ABG O2 Saturation 99.4 H ABG Base Excess ABG Hemoglobin 6.0 L Oxyhemoglobin Sodium 135 L Potassium Chloride Carbon Dioxide 20 L BUN 38 H Creatinine 1.6 H Glucose 118 H POC Glucose Lactic Acid Calcium 7.9 L Phosphorus Magnesium Ferritin ALT Lactate Dehydrogenase Total Creatine Kinase C-Reactive Protein Total Protein Albumin Urine Blood Urine WBC (Auto) U Epithel Cells (Auto) Crossmatch 10/11/21 10/11/21 10/12/21 11:41 17:51 00:18 WBC RBC Hgb Hct MCH MCHC RDW Plt Count Lymph % (Auto) [place] % (Auto) Lymph # (Auto) [place] # (Auto) Seg Neutrophils % Seg Neuts % (Manual) Lymphocytes % (Manual) Monocytes % (Manual) Nucleated RBC % Seg Neutrophils # Seg Neutrophils # Man Lymphocytes # (Manual) Monocytes # (Manual) PT INR D-Dimer ABG pH ABG pO2 ABG HCO3 ABG O2 Saturation ABG Base Excess ABG Hemoglobin Oxyhemoglobin Sodium Potassium Chloride Carbon Dioxide BUN Creatinine Glucose POC Glucose 128 H 138 H 174 H Lactic Acid Calcium Phosphorus Magnesium Ferritin ALT Lactate Dehydrogenase Total Creatine Kinase C-Reactive Protein Total Protein Albumin Urine Blood Urine WBC (Auto) U Epithel Cells (Auto) Crossmatch 10/12/21 10/12/21 10/12/21 05:39 06:02 06:02 WBC 19.1 H RBC 3.56 L Hgb 10.0 L D Hct MCH MCHC RDW 17.0 H Plt Count 712 H Lymph % (Auto) [place] % (Auto) Lymph # (Auto) [place] # (Auto) Seg Neutrophils % Seg Neuts % (Manual) Lymphocytes % (Manual) Monocytes % (Manual) Nucleated RBC % Seg Neutrophils # Seg Neutrophils # Man Lymphocytes # (Manual) Monocytes # (Manual) PT INR D-Dimer ABG pH ABG pO2 ABG HCO3 ABG O2 Saturation ABG Base Excess ABG Hemoglobin Oxyhemoglobin Sodium Potassium Chloride Carbon Dioxide BUN 37 H Creatinine 1.5 H Glucose 172 H POC Glucose 158 H Lactic Acid Calcium 8.1 L Phosphorus Magnesium Ferritin ALT Lactate Dehydrogenase Total Creatine Kinase C-Reactive Protein Total Protein Albumin Urine Blood Urine WBC (Auto) U Epithel Cells (Auto) Crossmatch 10/12/21 10/12/21 10/12/21 06:02 06:05 17:43 WBC RBC Hgb Hct MCH MCHC RDW Plt Count Lymph % (Auto) [place] % (Auto) Lymph # (Auto) [place] # (Auto) Seg Neutrophils % Seg Neuts % (Manual) Lymphocytes % (Manual) Monocytes % (Manual) Nucleated RBC % Seg Neutrophils # Seg Neutrophils # Man Lymphocytes # (Manual) Monocytes # (Manual) PT 17.1 H INR 1.24 H D-Dimer ABG pH ABG pO2 ABG HCO3 ABG O2 Saturation ABG Base Excess ABG Hemoglobin Oxyhemoglobin Sodium Potassium Chloride Carbon Dioxide BUN Creatinine Glucose POC Glucose 173 H Lactic Acid Calcium Phosphorus Magnesium Ferritin ALT Lactate Dehydrogenase Total Creatine Kinase C-Reactive Protein Total Protein Albumin Urine Blood Urine WBC (Auto) U Epithel Cells (Auto) Crossmatch See Detail 10/12/21 10/12/21 10/13/21 23:28 Unknown 04:05 WBC RBC Hgb 10.0 L Hct MCH MCHC RDW Plt Count Lymph % (Auto) [place] % (Auto) Lymph # (Auto) [place] # (Auto) Seg Neutrophils % Seg Neuts % (Manual) Lymphocytes % (Manual) Monocytes % (Manual) Nucleated RBC % Seg Neutrophils # Seg Neutrophils # Man Lymphocytes # (Manual) Monocytes # (Manual) PT INR D-Dimer ABG pH ABG pO2 ABG HCO3 ABG O2 Saturation ABG Base Excess ABG Hemoglobin Oxyhemoglobin Sodium Potassium Chloride Carbon Dioxide BUN 34 H Creatinine Glucose 200 H POC Glucose 178 H Lactic Acid Calcium 7.5 L Phosphorus Magnesium 1.60 L Ferritin ALT Lactate Dehydrogenase Total Creatine Kinase C-Reactive Protein Total Protein Albumin Urine Blood Urine WBC (Auto) U Epithel Cells (Auto) Crossmatch 10/13/21 10/13/21 10/13/21 05:09 10:55 13:34 WBC 23.8 H RBC 3.14 L Hgb 9.2 L Hct 27.7 L MCH MCHC RDW 17.5 H Plt Count 572 H Lymph % (Auto) [place] % (Auto) Lymph # (Auto) [place] # (Auto) Seg Neutrophils % Seg Neuts % (Manual) Lymphocytes % (Manual) Monocytes % (Manual) Nucleated RBC % Seg Neutrophils # Seg Neutrophils # Man Lymphocytes # (Manual) Monocytes # (Manual) PT INR D-Dimer ABG pH ABG pO2 ABG HCO3 ABG O2 Saturation ABG Base Excess ABG Hemoglobin Oxyhemoglobin Sodium Potassium Chloride Carbon Dioxide BUN Creatinine Glucose POC Glucose 210 H 168 H Lactic Acid Calcium Phosphorus Magnesium Ferritin ALT Lactate Dehydrogenase Total Creatine Kinase C-Reactive Protein Total Protein Albumin Urine Blood Urine WBC (Auto) U Epithel Cells (Auto) Crossmatch 10/13/21 10/13/21 10/14/21 15:35 23:10 04:05 WBC 19.4 H RBC 2.98 L Hgb 8.4 L Hct 26.3 L MCH MCHC RDW 17.1 H Plt Count 561 H Lymph % (Auto) [place] % (Auto) Lymph # (Auto) [place] # (Auto) Seg Neutrophils % Seg Neuts % (Manual) Lymphocytes % (Manual) Monocytes % (Manual) Nucleated RBC % Seg Neutrophils # Seg Neutrophils # Man Lymphocytes # (Manual) Monocytes # (Manual) PT INR D-Dimer ABG pH ABG pO2 ABG HCO3 ABG O2 Saturation ABG Base Excess ABG Hemoglobin Oxyhemoglobin Sodium Potassium Chloride Carbon Dioxide BUN Creatinine Glucose POC Glucose 154 H 135 H Lactic Acid Calcium Phosphorus Magnesium Ferritin ALT Lactate Dehydrogenase Total Creatine Kinase C-Reactive Protein Total Protein Albumin Urine Blood Urine WBC (Auto) U Epithel Cells (Auto) Crossmatch 10/14/21 10/14/21 10/14/21 04:05 04:05 05:08 WBC RBC Hgb Hct MCH MCHC RDW Plt Count Lymph % (Auto) [place] % (Auto) Lymph # (Auto) [place] # (Auto) Seg Neutrophils % Seg Neuts % (Manual) Lymphocytes % (Manual) Monocytes % (Manual) Nucleated RBC % Seg Neutrophils # Seg Neutrophils # Man Lymphocytes # (Manual) Monocytes # (Manual) PT 19.0 H INR 1.41 H D-Dimer ABG pH ABG pO2 ABG HCO3 ABG O2 Saturation ABG Base Excess ABG Hemoglobin Oxyhemoglobin Sodium Potassium Chloride Carbon Dioxide BUN 33 H Creatinine Glucose 310 H POC Glucose 178 H Lactic Acid Calcium 7.4 L Phosphorus Magnesium Ferritin ALT Lactate Dehydrogenase Total Creatine Kinase C-Reactive Protein Total Protein Albumin Urine Blood Urine WBC (Auto) U Epithel Cells (Auto) Crossmatch 10/14/21 10/14/21 10/14/21 09:29 10:45 11:40 WBC RBC Hgb Hct MCH MCHC RDW Plt Count Lymph % (Auto) [place] % (Auto) Lymph # (Auto) [place] # (Auto) Seg Neutrophils % Seg Neuts % (Manual) Lymphocytes % (Manual) Monocytes % (Manual) Nucleated RBC % Seg Neutrophils # Seg Neutrophils # Man Lymphocytes # (Manual) Monocytes # (Manual) PT INR D-Dimer ABG pH 7.342 L ABG pO2 96.0 H ABG HCO3 26.2 H ABG O2 Saturation ABG Base Excess ABG Hemoglobin 6.1 L Oxyhemoglobin 94.9 L Sodium Potassium Chloride Carbon Dioxide BUN Creatinine Glucose POC Glucose 155 H 137 H Lactic Acid Calcium Phosphorus Magnesium Ferritin ALT Lactate Dehydrogenase Total Creatine Kinase C-Reactive Protein Total Protein Albumin Urine Blood Urine WBC (Auto) U Epithel Cells (Auto) Crossmatch 10/14/21 10/14/21 10/14/21 15:40 21:21 23:46 WBC RBC Hgb Hct MCH MCHC RDW Plt Count Lymph % (Auto) [place] % (Auto) Lymph # (Auto) [place] # (Auto) Seg Neutrophils % Seg Neuts % (Manual) Lymphocytes % (Manual) Monocytes % (Manual) Nucleated RBC % Seg Neutrophils # Seg Neutrophils # Man Lymphocytes # (Manual) Monocytes # (Manual) PT INR D-Dimer ABG pH ABG pO2 ABG HCO3 ABG O2 Saturation ABG Base Excess ABG Hemoglobin Oxyhemoglobin Sodium Potassium Chloride Carbon Dioxide BUN Creatinine Glucose POC Glucose 140 H 111 H 164 H Lactic Acid Calcium Phosphorus Magnesium Ferritin ALT Lactate Dehydrogenase Total Creatine Kinase C-Reactive Protein Total Protein Albumin Urine Blood Urine WBC (Auto) U Epithel Cells (Auto) Crossmatch 10/15/21 10/15/21 10/15/21 05:06 05:40 05:40 WBC 22.7 H RBC 2.94 L Hgb 8.7 L Hct 25.8 L MCH MCHC RDW 17.2 H Plt Count 620 H Lymph % (Auto) [place] % (Auto) Lymph # (Auto) [place] # (Auto) Seg Neutrophils % Seg Neuts % (Manual) Lymphocytes % (Manual) Monocytes % (Manual) Nucleated RBC % Seg Neutrophils # Seg Neutrophils # Man Lymphocytes # (Manual) Monocytes # (Manual) PT INR D-Dimer ABG pH ABG pO2 ABG HCO3 ABG O2 Saturation ABG Base Excess ABG Hemoglobin Oxyhemoglobin Sodium Potassium Chloride Carbon Dioxide BUN 30 H Creatinine Glucose 175 H POC Glucose 155 H Lactic Acid Calcium 7.4 L Phosphorus Magnesium Ferritin ALT Lactate Dehydrogenase Total Creatine Kinase C-Reactive Protein Total Protein Albumin Urine Blood Urine WBC (Auto) U Epithel Cells (Auto) Crossmatch 10/15/21 10/15/21 10/15/21 11:32 17:23 23:35 WBC RBC Hgb Hct MCH MCHC RDW Plt Count Lymph % (Auto) [place] % (Auto) Lymph # (Auto) [place] # (Auto) Seg Neutrophils % Seg Neuts % (Manual) Lymphocytes % (Manual) Monocytes % (Manual) Nucleated RBC % Seg Neutrophils # Seg Neutrophils # Man Lymphocytes # (Manual) Monocytes # (Manual) PT INR D-Dimer ABG pH ABG pO2 ABG HCO3 ABG O2 Saturation ABG Base Excess ABG Hemoglobin Oxyhemoglobin Sodium Potassium Chloride Carbon Dioxide BUN Creatinine Glucose POC Glucose 157 H 136 H 143 H Lactic Acid Calcium Phosphorus Magnesium Ferritin ALT Lactate Dehydrogenase Total Creatine Kinase C-Reactive Protein Total Protein Albumin Urine Blood Urine WBC (Auto) U Epithel Cells (Auto) Crossmatch 10/16/21 10/16/21 10/16/21 04:00 04:00 05:08 WBC 18.0 H RBC 2.80 L Hgb 8.0 L Hct 24.7 L MCH MCHC RDW 17.4 H Plt Count 543 H Lymph % (Auto) [place] % (Auto) Lymph # (Auto) [place] # (Auto) Seg Neutrophils % Seg Neuts % (Manual) Lymphocytes % (Manual) Monocytes % (Manual) Nucleated RBC % Seg Neutrophils # Seg Neutrophils # Man Lymphocytes # (Manual) Monocytes # (Manual) PT INR D-Dimer ABG pH ABG pO2 ABG HCO3 ABG O2 Saturation ABG Base Excess ABG Hemoglobin Oxyhemoglobin Sodium Potassium Chloride Carbon Dioxide BUN 31 H Creatinine Glucose 153 H POC Glucose 149 H Lactic Acid Calcium 8.0 L Phosphorus Magnesium Ferritin ALT Lactate Dehydrogenase Total Creatine Kinase C-Reactive Protein Total Protein 5.5 L Albumin 1.9 L Urine Blood Urine WBC (Auto) U Epithel Cells (Auto) Crossmatch 10/16/21 10/16/21 10/16/21 11:45 17:37 23:48 WBC RBC Hgb Hct MCH MCHC RDW Plt Count Lymph % (Auto) [place] % (Auto) Lymph # (Auto) [place] # (Auto) Seg Neutrophils % Seg Neuts % (Manual) Lymphocytes % (Manual) Monocytes % (Manual) Nucleated RBC % Seg Neutrophils # Seg Neutrophils # Man Lymphocytes # (Manual) Monocytes # (Manual) PT INR D-Dimer ABG pH ABG pO2 ABG HCO3 ABG O2 Saturation ABG Base Excess ABG Hemoglobin Oxyhemoglobin Sodium Potassium Chloride Carbon Dioxide BUN Creatinine Glucose POC Glucose 144 H 130 H 134 H Lactic Acid Calcium Phosphorus Magnesium Ferritin ALT Lactate Dehydrogenase Total Creatine Kinase C-Reactive Protein Total Protein Albumin Urine Blood Urine WBC (Auto) U Epithel Cells (Auto) Crossmatch 10/17/21 10/17/21 10/17/21 04:00 04:00 05:37 WBC 14.0 H RBC 2.46 L Hgb 7.2 L Hct 21.7 L MCH MCHC RDW 17.4 H Plt Count 526 H Lymph % (Auto) [place] % (Auto) Lymph # (Auto) [place] # (Auto) Seg Neutrophils % Seg Neuts % (Manual) Lymphocytes % (Manual) Monocytes % (Manual) Nucleated RBC % Seg Neutrophils # Seg Neutrophils # Man Lymphocytes # (Manual) Monocytes # (Manual) PT INR D-Dimer ABG pH ABG pO2 ABG HCO3 ABG O2 Saturation ABG Base Excess ABG Hemoglobin Oxyhemoglobin Sodium Potassium Chloride Carbon Dioxide BUN 29 H Creatinine Glucose 138 H POC Glucose 137 H Lactic Acid Calcium 7.5 L Phosphorus Magnesium Ferritin ALT Lactate Dehydrogenase Total Creatine Kinase C-Reactive Protein Total Protein Albumin Urine Blood Urine WBC (Auto) U Epithel Cells (Auto) Crossmatch 10/17/21 10/17/21 10/17/21 11:45 12:50 16:13 WBC RBC Hgb Hct MCH MCHC RDW Plt Count Lymph % (Auto) [place] % (Auto) Lymph # (Auto) [place] # (Auto) Seg Neutrophils % Seg Neuts % (Manual) Lymphocytes % (Manual) Monocytes % (Manual) Nucleated RBC % Seg Neutrophils # Seg Neutrophils # Man Lymphocytes # (Manual) Monocytes # (Manual) PT INR D-Dimer ABG pH ABG pO2 ABG HCO3 ABG O2 Saturation ABG Base Excess ABG Hemoglobin Oxyhemoglobin Sodium Potassium Chloride Carbon Dioxide BUN Creatinine Glucose POC Glucose 145 H 128 H Lactic Acid Calcium Phosphorus Magnesium Ferritin ALT Lactate Dehydrogenase Total Creatine Kinase C-Reactive Protein Total Protein Albumin Urine Blood Urine WBC (Auto) U Epithel Cells (Auto) Crossmatch See Detail 10/17/21 10/18/21 10/18/21 23:46 04:28 04:28 WBC 16.6 H RBC 2.81 L Hgb 8.4 L Hct 24.4 L MCH MCHC RDW 16.8 H Plt Count 516 H Lymph % (Auto) [place] % (Auto) Lymph # (Auto) [place] # (Auto) Seg Neutrophils % Seg Neuts % (Manual) Lymphocytes % (Manual) Monocytes % (Manual) Nucleated RBC % Seg Neutrophils # Seg Neutrophils # Man Lymphocytes # (Manual) Monocytes # (Manual) PT INR D-Dimer ABG pH ABG pO2 ABG HCO3 ABG O2 Saturation ABG Base Excess ABG Hemoglobin Oxyhemoglobin Sodium Potassium Chloride Carbon Dioxide BUN 26 H Creatinine Glucose 144 H POC Glucose 124 H Lactic Acid Calcium 7.5 L Phosphorus Magnesium Ferritin ALT 6 L Lactate Dehydrogenase Total Creatine Kinase C-Reactive Protein Total Protein 6.1 L Albumin 2.0 L Urine Blood Urine WBC (Auto) U Epithel Cells (Auto) Crossmatch 10/18/21 10/18/21 10/18/21 05:19 11:34 11:40 WBC RBC Hgb Hct MCH MCHC RDW Plt Count Lymph % (Auto) [place] % (Auto) Lymph # (Auto) [place] # (Auto) Seg Neutrophils % Seg Neuts % (Manual) Lymphocytes % (Manual) Monocytes % (Manual) Nucleated RBC % Seg Neutrophils # Seg Neutrophils # Man Lymphocytes # (Manual) Monocytes # (Manual) PT INR D-Dimer ABG pH 7.466 H ABG pO2 90.6 H ABG HCO3 29.0 H ABG O2 Saturation ABG Base Excess 4.9 H ABG Hemoglobin 8.6 L Oxyhemoglobin Sodium Potassium Chloride Carbon Dioxide BUN Creatinine Glucose POC Glucose 128 H Lactic Acid Calcium Phosphorus Magnesium Ferritin ALT Lactate Dehydrogenase Total Creatine Kinase C-Reactive Protein Total Protein Albumin Urine Blood Moderate A Urine WBC (Auto) 50.0 H U Epithel Cells (Auto) Crossmatch 03/10/18/21 10/19/21 12:20 16:18 01:28 WBC RBC Hgb Hct MCH MCHC RDW Plt Count Lymph % (Auto) [place] % (Auto) Lymph # (Auto) [place] # (Auto) Seg Neutrophils % Seg Neuts % (Manual) Lymphocytes % (Manual) Monocytes % (Manual) Nucleated RBC % Seg Neutrophils # Seg Neutrophils # Man Lymphocytes # (Manual) Monocytes # (Manual) PT INR D-Dimer ABG pH ABG pO2 ABG HCO3 ABG O2 Saturation ABG Base Excess ABG Hemoglobin Oxyhemoglobin Sodium Potassium Chloride Carbon Dioxide BUN Creatinine Glucose POC Glucose 151 H 139 H 126 H Lactic Acid Calcium Phosphorus Magnesium Ferritin ALT Lactate Dehydrogenase Total Creatine Kinase C-Reactive Protein Total Protein Albumin Urine Blood Urine WBC (Auto) U Epithel Cells (Auto) Crossmatch 10/19/21 10/19/21 10/19/21 04:23 04:23 04:23 WBC 16.0 H RBC 3.04 L Hgb 8.7 L Hct 26.3 L MCH MCHC RDW 16.9 H Plt Count 500 H Lymph % (Auto) [place] % (Auto) Lymph # (Auto) [place] # (Auto) Seg Neutrophils % Seg Neuts % (Manual) Lymphocytes % (Manual) Monocytes % (Manual) Nucleated RBC % Seg Neutrophils # Seg Neutrophils # Man Lymphocytes # (Manual) Monocytes # (Manual) PT INR D-Dimer ABG pH ABG pO2 ABG HCO3 ABG O2 Saturation ABG Base Excess ABG Hemoglobin Oxyhemoglobin Sodium Potassium Chloride Carbon Dioxide BUN 20 H Creatinine Glucose 138 H POC Glucose Lactic Acid Calcium 7.8 L Phosphorus 1.80 L D Magnesium 1.60 L Ferritin ALT Lactate Dehydrogenase Total Creatine Kinase C-Reactive Protein Total Protein Albumin Urine Blood Urine WBC (Auto) U Epithel Cells (Auto) Crossmatch 10/19/21 10/19/21 10/19/21 14:11 18:05 21:42 WBC RBC Hgb Hct MCH MCHC RDW Plt Count Lymph % (Auto) [place] % (Auto) Lymph # (Auto) [place] # (Auto) Seg Neutrophils % Seg Neuts % (Manual) Lymphocytes % (Manual) Monocytes % (Manual) Nucleated RBC % Seg Neutrophils # Seg Neutrophils # Man Lymphocytes # (Manual) Monocytes # (Manual) PT INR D-Dimer ABG pH ABG pO2 ABG HCO3 ABG O2 Saturation ABG Base Excess ABG Hemoglobin Oxyhemoglobin Sodium Potassium Chloride Carbon Dioxide BUN Creatinine Glucose POC Glucose 161 H 162 H 112 H Lactic Acid Calcium Phosphorus Magnesium Ferritin ALT Lactate Dehydrogenase Total Creatine Kinase C-Reactive Protein Total Protein Albumin Urine Blood Urine WBC (Auto) U Epithel Cells (Auto) Crossmatch 10/20/21 10/20/21 10/20/21 00:01 05:39 11:41 WBC 20.2 H RBC 2.81 L Hgb 8.5 L Hct 24.3 L MCH MCHC 35 H RDW 16.8 H Plt Count 481 H Lymph % (Auto) [place] % (Auto) Lymph # (Auto) [place] # (Auto) Seg Neutrophils % Seg Neuts % (Manual) Lymphocytes % (Manual) Monocytes % (Manual) Nucleated RBC % Seg Neutrophils # Seg Neutrophils # Man Lymphocytes # (Manual) Monocytes # (Manual) PT INR D-Dimer ABG pH ABG pO2 ABG HCO3 ABG O2 Saturation ABG Base Excess ABG Hemoglobin Oxyhemoglobin Sodium Potassium Chloride Carbon Dioxide BUN Creatinine Glucose POC Glucose 152 H 117 H Lactic Acid Calcium Phosphorus Magnesium Ferritin ALT Lactate Dehydrogenase Total Creatine Kinase C-Reactive Protein Total Protein Albumin Urine Blood Urine WBC (Auto) U Epithel Cells (Auto) Crossmatch 10/20/21 10/20/21 10/20/21 11:41 11:50 17:31 WBC RBC Hgb Hct MCH MCHC RDW Plt Count Lymph % (Auto) [place] % (Auto) Lymph # (Auto) [place] # (Auto) Seg Neutrophils % Seg Neuts % (Manual) Lymphocytes % (Manual) Monocytes % (Manual) Nucleated RBC % Seg Neutrophils # Seg Neutrophils # Man Lymphocytes # (Manual) Monocytes # (Manual) PT INR D-Dimer ABG pH ABG pO2 ABG HCO3 ABG O2 Saturation ABG Base Excess ABG Hemoglobin Oxyhemoglobin Sodium Potassium Chloride Carbon Dioxide BUN 20 H Creatinine Glucose 123 H POC Glucose 120 H 125 H Lactic Acid Calcium 7.7 L Phosphorus 2.00 L Magnesium Ferritin ALT Lactate Dehydrogenase Total Creatine Kinase C-Reactive Protein Total Protein Albumin Urine Blood Urine WBC (Auto) U Epithel Cells (Auto) Crossmatch 10/20/21 10/21/21 10/21/21 23:25 04:30 04:30 WBC 23.2 H RBC 2.70 L Hgb 7.9 L Hct 23.2 L MCH MCHC RDW 17.2 H Plt Count Lymph % (Auto) [place] % (Auto) Lymph # (Auto) [place] # (Auto) Seg Neutrophils % Seg Neuts % (Manual) Lymphocytes % (Manual) Monocytes % (Manual) Nucleated RBC % Seg Neutrophils # Seg Neutrophils # Man Lymphocytes # (Manual) Monocytes # (Manual) PT INR D-Dimer ABG pH ABG pO2 ABG HCO3 ABG O2 Saturation ABG Base Excess ABG Hemoglobin Oxyhemoglobin Sodium Potassium Chloride Carbon Dioxide BUN 22 H Creatinine Glucose 117 H POC Glucose 119 H Lactic Acid Calcium 7.7 L Phosphorus Magnesium Ferritin ALT Lactate Dehydrogenase Total Creatine Kinase C-Reactive Protein Total Protein Albumin Urine Blood Urine WBC (Auto) U Epithel Cells (Auto) Crossmatch 10/21/21 10/21/21 10/21/21 05:26 09:05 11:27 WBC RBC Hgb Hct MCH MCHC RDW Plt Count Lymph % (Auto) [place] % (Auto) Lymph # (Auto) [place] # (Auto) Seg Neutrophils % Seg Neuts % (Manual) Lymphocytes % (Manual) Monocytes % (Manual) Nucleated RBC % Seg Neutrophils # Seg Neutrophils # Man Lymphocytes # (Manual) Monocytes # (Manual) PT INR D-Dimer ABG pH 7.509 H ABG pO2 60.3 L ABG HCO3 26.2 H ABG O2 Saturation ABG Base Excess ABG Hemoglobin 6.7 L Oxyhemoglobin Sodium Potassium Chloride Carbon Dioxide BUN Creatinine Glucose POC Glucose 111 H 114 H Lactic Acid Calcium Phosphorus Magnesium Ferritin ALT Lactate Dehydrogenase Total Creatine Kinase C-Reactive Protein Total Protein Albumin Urine Blood Urine WBC (Auto) U Epithel Cells (Auto) Crossmatch 10/21/21 10/21/21 10/22/21 16:45 23:13 05:25 WBC 21.7 H RBC 2.55 L Hgb 7.5 L Hct 22.3 L MCH MCHC RDW 16.8 H Plt Count Lymph % (Auto) [place] % (Auto) Lymph # (Auto) [place] # (Auto) Seg Neutrophils % Seg Neuts % (Manual) 86.0 H Lymphocytes % (Manual) 7.0 L Monocytes % (Manual) Nucleated RBC % Seg Neutrophils # Seg Neutrophils # Man 18.7 H Lymphocytes # (Manual) Monocytes # (Manual) 1.5 H PT INR D-Dimer ABG pH ABG pO2 ABG HCO3 ABG O2 Saturation ABG Base Excess ABG Hemoglobin Oxyhemoglobin Sodium Potassium Chloride Carbon Dioxide BUN Creatinine Glucose POC Glucose 117 H 125 H Lactic Acid Calcium Phosphorus Magnesium Ferritin ALT Lactate Dehydrogenase Total Creatine Kinase C-Reactive Protein Total Protein Albumin Urine Blood Urine WBC (Auto) U Epithel Cells (Auto) Crossmatch 10/22/21 10/22/21 10/22/21 09:02 09:02 11:07 WBC 17.2 H RBC 2.51 L Hgb 7.1 L Hct 21.9 L MCH MCHC RDW 17.2 H Plt Count Lymph % (Auto) 4.7 L [place] % (Auto) 10.2 H Lymph # (Auto) 0.8 L [place] # (Auto) 1.8 H Seg Neutrophils % 84.5 H Seg Neuts % (Manual) Lymphocytes % (Manual) Monocytes % (Manual) Nucleated RBC % Seg Neutrophils # 14.5 H Seg Neutrophils # Man Lymphocytes # (Manual) Monocytes # (Manual) PT INR D-Dimer ABG pH ABG pO2 ABG HCO3 ABG O2 Saturation ABG Base Excess ABG Hemoglobin Oxyhemoglobin Sodium 134 L Potassium Chloride Carbon Dioxide BUN 23 H Creatinine Glucose 117 H POC Glucose 115 H Lactic Acid Calcium 8.1 L Phosphorus Magnesium Ferritin ALT Lactate Dehydrogenase Total Creatine Kinase C-Reactive Protein Total Protein Albumin Urine Blood Urine WBC (Auto) U Epithel Cells (Auto) Crossmatch 10/22/21 10/22/21 10/22/21 16:05 23:15 Unknown WBC RBC Hgb Hct MCH MCHC RDW Plt Count Lymph % (Auto) [place] % (Auto) Lymph # (Auto) [place] # (Auto) Seg Neutrophils % Seg Neuts % (Manual) Lymphocytes % (Manual) Monocytes % (Manual) Nucleated RBC % Seg Neutrophils # Seg Neutrophils # Man Lymphocytes # (Manual) Monocytes # (Manual) PT INR D-Dimer ABG pH ABG pO2 ABG HCO3 ABG O2 Saturation ABG Base Excess ABG Hemoglobin Oxyhemoglobin Sodium 135 L Potassium Chloride Carbon Dioxide BUN 23 H Creatinine Glucose 112 H POC Glucose 123 H 114 H Lactic Acid Calcium 8.2 L Phosphorus Magnesium Ferritin ALT Lactate Dehydrogenase Total Creatine Kinase C-Reactive Protein Total Protein Albumin Urine Blood Urine WBC (Auto) U Epithel Cells (Auto) Crossmatch 10/23/21 10/23/21 10/23/21 04:56 04:56 05:28 WBC 16.5 H RBC 2.46 L Hgb 7.1 L Hct 21.4 L MCH MCHC RDW 16.9 H Plt Count Lymph % (Auto) [place] % (Auto) Lymph # (Auto) [place] # (Auto) Seg Neutrophils % Seg Neuts % (Manual) Lymphocytes % (Manual) Monocytes % (Manual) Nucleated RBC % Seg Neutrophils # Seg Neutrophils # Man Lymphocytes # (Manual) Monocytes # (Manual) PT INR D-Dimer ABG pH ABG pO2 ABG HCO3 ABG O2 Saturation ABG Base Excess ABG Hemoglobin Oxyhemoglobin Sodium Potassium Chloride Carbon Dioxide 21 L BUN 25 H Creatinine Glucose 123 H POC Glucose 130 H Lactic Acid Calcium 8.3 L Phosphorus Magnesium Ferritin ALT Lactate Dehydrogenase Total Creatine Kinase C-Reactive Protein Total Protein Albumin Urine Blood Urine WBC (Auto) U Epithel Cells (Auto) Crossmatch 10/23/21 10/23/21 10/24/21 11:24 17:52 00:11 WBC RBC Hgb Hct MCH MCHC RDW Plt Count Lymph % (Auto) Nash % (Auto) Lymph # (Auto) Nash # (Auto) Seg Neutrophils % Seg Neuts % (Manual) Lymphocytes % (Manual) Monocytes % (Manual) Nucleated RBC % Seg Neutrophils # Seg Neutrophils # Man Lymphocytes # (Manual) Monocytes # (Manual) PT INR D-Dimer ABG pH ABG pO2 ABG HCO3 ABG O2 Saturation ABG Base Excess ABG Hemoglobin Oxyhemoglobin Sodium Potassium Chloride Carbon Dioxide BUN Creatinine Glucose POC Glucose 123 H 121 H 139 H Lactic Acid Calcium Phosphorus Magnesium Ferritin ALT Lactate Dehydrogenase Total Creatine Kinase C-Reactive Protein Total Protein Albumin Urine Blood Urine WBC (Auto) U Epithel Cells (Auto) Crossmatch 10/24/21 10/24/21 10/24/21 04:00 04:00 05:15 WBC 14.2 H RBC 2.55 L Hgb 7.4 L Hct 22.2 L MCH MCHC RDW 17.0 H Plt Count 470 H Lymph % (Auto) Nash % (Auto) Lymph # (Auto) Nash # (Auto) Seg Neutrophils % Seg Neuts % (Manual) Lymphocytes % (Manual) Monocytes % (Manual) Nucleated RBC % Seg Neutrophils # Seg Neutrophils # Man Lymphocytes # (Manual) Monocytes # (Manual) PT INR D-Dimer ABG pH ABG pO2 ABG HCO3 ABG O2 Saturation ABG Base Excess ABG Hemoglobin Oxyhemoglobin Sodium 135 L Potassium Chloride Carbon Dioxide 21 L BUN 26 H Creatinine Glucose 122 H POC Glucose 133 H Lactic Acid Calcium 8.2 L Phosphorus Magnesium Ferritin ALT Lactate Dehydrogenase Total Creatine Kinase C-Reactive Protein Total Protein Albumin Urine Blood Urine WBC (Auto) U Epithel Cells (Auto) Crossmatch Chest x-ray: image reviewed Allied health notes reviewed: RT
[2021-10-24] MEDS: ONDANSETRON 4 MG/2 ML INJ IV PRN (16:40)
[2021-10-24] MEDS ORDERED: TOTAL PARENTERAL NUTRITION 1,999.92 ML IV SCH (20:00)
[2021-10-25] MEDS: FUROSEMIDE 20 MG/2 ML INJ IV SCH ×2 (00:17→05:11)
[2021-10-25] MEDS: INSULIN REGULAR, HUMAN 100 UNITS/1 ML SUB-Q SCH ×4 (00:20→18:55)
[2021-10-25] MEDS: SMX IV SCH ×2 (00:37→05:35)
[2021-10-25] MEDS: TMP IV SCH ×2 (00:37→05:35)
[2021-10-25] MEDS: WATER IV SCH ×2 (00:37→05:35)
[2021-10-25] MEDS: DEXTROSE 5% IV SCH ×2 (00:37→05:35)
[2021-10-25 05:21] LABS: Hematocrit 23.7 % (30.3-42.9); Hemoglobin 7.9 gm/dl (10.1-14.3); Mean Corpuscular HGB Conc 33 % (30-34); Mean Corpuscular Volume 87 fl (79-97); Platelet Count 486 K/mm3 (140-440); Red Blood Count 2.72 M/mm3 (3.65-5.03); Red Cell Distribution Width 17.3 % (13.2-15.2)
[2021-10-25 05:50] LABS: BUN/Creatinine Ratio 29; Blood Urea Nitrogen 26 mg/dL (7-17); Calcium 8.2 mg/dL (8.4-10.2); Hemolysis Index 3
[2021-10-25] MEDS ORDERED: MAGNESIUM SULFATE 2 GM/50 ML BAG IV SCH (08:00)
[2021-10-25] MEDS: HEPARIN 5,000 UNIT/1 ML VIAL SUB-Q SCH ×2 (09:25→21:15)
[2021-10-25] MEDS: FLUCONAZOLE 400 MG 200 ML IV SCH (09:25)
[2021-10-25] MEDS: PANTOPRAZOLE 40 MG INJ IV SCH (09:26)
[2021-10-25] MEDS: SCOPOLAMINE TRANSDERMAL PATCH 72 HR TD SCH (09:28)
[2021-10-25] MEDS: INSULIN GLARGINE 100 UNITS/ML SUB-Q SCH (09:31)
[2021-10-25] MEDS: HYDROmorphone 1 MG/1 ML INJ IV PRN ×3 (10:00→23:08)
[2021-10-25] MEDS: diphenhydrAMINE 50 MG/ML VIAL IV PRN (10:05)
--- NOTE | 2021-10-25 11:04 | Progress Note ---
Assessment and Plan Cultures: 09/24/2021 blood culture: No growth 09/30/2021 YURIDIA drain wound culture: VRE - Enterococcus faecium 10/08/2021 blood culture: No growth 10/11/2021 intra-abdominal surgical culture: Jo Ann albicans, MSSA, Stenotrophomonas 10/12/2021 tracheal culture: No growth 10/18/2021 blood culture: no growth 10/18/2021 urine culture: no growth 10/18/2021 sputum culture: Stenotrophomonas A/P: 31-year-old female past medical history obesity, nephrolithiasis admitted with: #Sepsis: Secondary to intra-abdominal infection. 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 pna, fluid overload more likely. Extubated 08/20/2021. Cultures growing Stenotrophomonas. #Leukocytosis, reactive thrombocytosis: downtrending. #BRYANNA: resolved. #Obesity Recs: -completed antibiotics, orders discontinued Mónica Swan MD, FACP[facility] O: [phone] F: [phone] C: [phone] Subjective Date of service: 10/25/21 Principal diagnosis: BRYANNA Interval history: No fever. Weaned off oxygen. Remains with NG tube to suction. On parenteral nutrition. Objective - Exam Narrative Exam: Physical Exam: Constitutional: Awake, alert, no distress Head, Ears, Nose: Normocephalic, atraumatic. External ears, nose normal Eyes: Conjunctivae/corneas clear. No icterus. No ptosis. Neck: supple Cardiovascular: S1, S2 + Respiratory: AE fair bilaterally GI: Soft, dressing, drain present, colostomy present Musculoskeletal: Obese, edema present Skin: No rash or abscess Hem/Lymphatic: No palpable cervical or supraclavicular nodes. No lymphangitis Psych: calm Neurological: Awake, alert, answering questions - Constitutional Vitals: Vital Signs Temp Pulse Resp BP Pulse Ox 99.3 F 73 32 H 102/64 93 10/25/21 08:00 10/25/21 07:00 10/25/21 07:00 10/25/21 07:00 10/25/21 07:00 Temperature -Last 24 Hours Temperature 99.3 F Temperature 98.8 F Temperature 98.8 F Temperature 100.3 F Temperature 97.9 F Temperature 98.5 F - Labs CBC & Chem 7: 10/25/21 05:03 10/25/21 05:03 Labs: Abnormal lab results 10/24/21 10/25/21 10/25/21 Range/Units 16:53 05:03 05:03 WBC 12.2 H (4.5-11.0) K/mm3 RBC 2.72 L (3.65-5.03) M/mm3 Hgb 7.9 L (10.1-14.3) gm/dl Hct 23.7 L (30.3-42.9) % RDW 17.3 H (13.2-15.2) % Plt Count 486 H (140-440) K/mm3 Sodium 134 L (137-145) mmol/L Carbon Dioxide 19 L (22-30) mmol/L BUN 26 H (7-17) mg/dL Glucose 107 H (65-100) mg/dL POC Glucose 129 H (70-105) mg/dL Calcium 8.2 L (8.4-10.2) mg/dL 10/25/21 Range/Units 05:44 WBC (4.5-11.0) K/mm3 RBC (3.65-5.03) M/mm3 Hgb (10.1-14.3) gm/dl Hct (30.3-42.9) % RDW (13.2-15.2) % Plt Count (140-440) K/mm3 Sodium (137-145) mmol/L Carbon Dioxide (22-30) mmol/L BUN (7-17) mg/dL Glucose (65-100) mg/dL POC Glucose 113 H (70-105) mg/dL Calcium (8.4-10.2) mg/dL
--- NOTE | 2021-10-25 12:49 | Progress Note ---
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 Open left hemicolectomy and partial omentectomy Peritonitis Leukocytosis Diverticulitis with absces Acute renal failure Acute blood loss anemia Gross Hematuria - discontinue Precedex - Haldol 5mg IV q6h prn agitation / delirioum X 48 hours - place PICC line and discontinue RIJ CVL - continue TPN - BIPAP prn re: risk of gastric insufflation - wound care per RN / WCN under surgeons direction - continue care as below otherwise; - continue to wean supplemental oxygen for target O2 sat's > 90% acutely - aspiration precautions - prn bronchodilators with pulmonary hygiene per RT - avoid nephrotoxins, renally dose all medications - continue accuchecks with glycemic control per SSI (While critically ill target blood glucose of 140-180 mg/dL; avoid hypoglycemia) - avoid benzodiazepine's, reduce the possibility of delirium - AB's per ID rec's (s/p Diflucan & Flagyl) - Maintenance of sleep-wake cycle, avoid delirium - continue enteral nutritional support at goal rate as tolerated - G.I. & VTE prophylaxis - PT/OT/ROM exercises - continue mobility protocols for pressure ulcer prophylaxis - Monitor hemodynamics closely - continue other care per attending / other consultants - discharge planning ongoing concurrently COVID SPECIFIC INTERVENTIONS - COVID-19 PCR negative .... Re-evaluate in am & prn CONDITION: CRITICAL PROGNOSIS: GUARDED CODE STATUS: FULL CODE The high probability of a clinically significant, sudden or life-threatening deterioration of the [respiratory, cardiovascular & neurologic] system(s) required my full and direct attention, intervention and personal management. The aggregate critical care time was [34] minutes without overlap. 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 s/p appendectomy; VRE infection; Open left hemicolectomy and partial omentectomy; Peritonitis; Diverticulitis with abscess;' BRYANNA; ABLA; Gross Hematuria Seen and examined at bedside; 24hour events reviewed; nursing and respiratory care staff consulted; no adverse overnight events reported to me; resting in bed; remains on supplemental oxygen but down to 36%; good diuresis opver weekend (negative approx 4 liters); denies chest pain or palpitations; still with nausea and poor appetite Objective Vital Signs - 12hr 10/25/21 10/25/21 10/25/21 01:00 01:30 02:00 Temperature Pulse Rate 73 78 78 Respiratory 30 H 26 H 26 H Rate Blood Pressure 97/61 96/62 86/57 O2 Sat by Pulse 97 98 97 Oximetry 10/25/21 10/25/21 10/25/21 02:30 03:00 03:30 Temperature Pulse Rate 79 81 80 Respiratory 28 H 17 29 H Rate Blood Pressure 93/61 91/58 95/62 O2 Sat by Pulse 98 98 99 Oximetry 10/25/21 10/25/21 10/25/21 04:00 04:30 05:00 Temperature 98.8 F Pulse Rate 76 80 76 Respiratory 30 H 28 H 25 H Rate Blood Pressure 99/64 91/60 99/65 O2 Sat by Pulse 84 100 98 Oximetry 10/25/21 10/25/21 10/25/21 05:30 06:00 06:31 Temperature Pulse Rate 75 74 72 Respiratory 31 H 22 13 Rate Blood Pressure 94/63 96/56 97/57 O2 Sat by Pulse 96 99 94 Oximetry 10/25/21 10/25/21 10/25/21 07:00 08:00 12:00 Temperature 99.3 F 99.1 F Pulse Rate 73 Respiratory 32 H Rate Blood Pressure 102/64 O2 Sat by Pulse 93 Oximetry Constitutional: other (young obese female with mildly increased respiratory effort at rest) Eyes: non-icteric ENT: oropharynx moist, other (extubated) Neck: supple, other (large circumference; RIJ CVL) Effort: mildly labored Ascultation: Bilateral: diminished breath sounds, rhonchi Percussion: Bilateral: not dull Cardiovascular: regular rate and rhythm, other (S1,S2) Gastrointestinal: hypoactive bowel sounds, soft, tender (mild), other (YURIDIA drains, colostomy) Integumentary: normal, other (post-op changes) Extremities: no cyanosis, pulses normal, no ischemia or petechiae, edema Neurologic: non-focal exam, pupils equal and round, CN II-XII normal, motor strength normal and Psychiatric: mood appropriate, affect normal CBC and BMP: 10/25/21 05:03 10/25/21 05:03 ABG, PT/INR, D-dimer: ABG ABG pH 7.509 pH Units (7.350-7.450) H 10/21/21 09:05 ABG pCO2 33.7 mm Hg 10/21/21 09:05 ABG pO2 60.3 mm Hg (80.0-90.0) L 10/21/21 09:05 ABG O2 Saturation 97.5 % (95.0-99.0) 10/21/21 09:05 PT/INR, D-dimer PT 19.0 Sec. (12.2-14.9) H 10/14/21 04:05 INR 1.41 (0.87-1.13) H 10/14/21 04:05 D-Dimer > 39099 ng/mlDDU (0-234) H 10/09/21 08:45 Abnormal lab findings: Abnormal Labs 09/24/21 09/24/21 09/24/21 14:49 14:58 14:58 WBC 32.4 H RBC Hgb Hct MCH MCHC RDW Plt Count 535 H Lymph % (Auto) [place] % (Auto) Lymph # (Auto) [place] # (Auto) Seg Neutrophils % Seg Neuts % (Manual) 82.0 H Lymphocytes % (Manual) 2.0 L Monocytes % (Manual) Nucleated RBC % Seg Neutrophils # Seg Neutrophils # Man 26.6 H Lymphocytes # (Manual) 0.6 L Monocytes # (Manual) 1.6 H PT INR D-Dimer ABG pH ABG pO2 ABG HCO3 ABG O2 Saturation ABG Base Excess ABG Hemoglobin Oxyhemoglobin Sodium 134 L Potassium 3.5 L Chloride 97.6 L Carbon Dioxide BUN Creatinine Glucose 119 H POC Glucose Lactic Acid Calcium Phosphorus Magnesium Ferritin ALT Lactate Dehydrogenase Total Creatine Kinase C-Reactive Protein Total Protein 6.1 L Albumin 3.3 L Urine Blood Urine WBC (Auto) U Epithel Cells (Auto) 18.0 H Crossmatch 09/25/21 09/25/21 09/26/21 05:47 05:47 04:20 WBC 25.4 H 23.6 H RBC 3.54 L Hgb Hct MCH MCHC RDW Plt Count 466 H 486 H Lymph % (Auto) [place] % (Auto) Lymph # (Auto) [place] # (Auto) Seg Neutrophils % Seg Neuts % (Manual) 93.0 H 86.0 H Lymphocytes % (Manual) 4.0 L 3.0 L Monocytes % (Manual) Nucleated RBC % Seg Neutrophils # Seg Neutrophils # Man 23.6 H 20.3 H Lymphocytes # (Manual) 1.0 L 0.7 L Monocytes # (Manual) 0.9 H PT INR D-Dimer ABG pH ABG pO2 ABG HCO3 ABG O2 Saturation ABG Base Excess ABG Hemoglobin Oxyhemoglobin Sodium 136 L Potassium 3.0 L Chloride Carbon Dioxide 21 L BUN Creatinine Glucose POC Glucose Lactic Acid Calcium 7.8 L Phosphorus Magnesium Ferritin ALT Lactate Dehydrogenase Total Creatine Kinase C-Reactive Protein Total Protein Albumin Urine Blood Urine WBC (Auto) U Epithel Cells (Auto) Crossmatch 09/26/21 09/27/21 09/27/21 04:20 08:28 08:28 WBC 20.6 H RBC 3.42 L Hgb 9.9 L Hct 29.5 L D MCH MCHC RDW Plt Count Lymph % (Auto) [place] % (Auto) Lymph # (Auto) [place] # (Auto) Seg Neutrophils % Seg Neuts % (Manual) 94.1 H Lymphocytes % (Manual) 1.0 L Monocytes % (Manual) Nucleated RBC % Seg Neutrophils # Seg Neutrophils # Man 19.4 H Lymphocytes # (Manual) 0.2 L Monocytes # (Manual) PT INR D-Dimer ABG pH ABG pO2 ABG HCO3 ABG O2 Saturation ABG Base Excess ABG Hemoglobin Oxyhemoglobin Sodium Potassium 3.2 L Chloride Carbon Dioxide 20 L BUN Creatinine Glucose 137 H POC Glucose Lactic Acid Calcium 8.3 L 8.2 L Phosphorus Magnesium Ferritin ALT Lactate Dehydrogenase Total Creatine Kinase C-Reactive Protein Total Protein Albumin Urine Blood Urine WBC (Auto) U Epithel Cells (Auto) Crossmatch 09/28/21 09/28/21 09/29/21 04:55 15:35 07:02 WBC 15.1 H 16.5 H RBC 3.34 L 3.20 L Hgb 9.3 L 9.1 L Hct 28.7 L 27.3 L MCH MCHC RDW 15.3 H Plt Count 444 H 469 H Lymph % (Auto) [place] % (Auto) Lymph # (Auto) [place] # (Auto) 0.9 H Seg Neutrophils % 89.3 H Seg Neuts % (Manual) 88.0 H 80.0 H Lymphocytes % (Manual) 9.0 L 8.0 L Monocytes % (Manual) Nucleated RBC % Seg Neutrophils # 14.0 H Seg Neutrophils # Man 13.3 H 13.2 H Lymphocytes # (Manual) Monocytes # (Manual) PT INR D-Dimer ABG pH ABG pO2 ABG HCO3 ABG O2 Saturation ABG Base Excess ABG Hemoglobin Oxyhemoglobin Sodium Potassium 3.3 L Chloride 109.4 H Carbon Dioxide 20 L BUN Creatinine 0.5 L Glucose POC Glucose Lactic Acid Calcium 7.9 L Phosphorus Magnesium Ferritin ALT Lactate Dehydrogenase Total Creatine Kinase C-Reactive Protein Total Protein Albumin Urine Blood Urine WBC (Auto) U Epithel Cells (Auto) Crossmatch 09/30/21 09/30/21 10/01/21 05:40 05:40 07:49 WBC 17.4 H 17.9 H RBC 3.37 L 3.32 L Hgb 9.2 L 9.3 L Hct 28.4 L 28.3 L MCH 27 L MCHC RDW 15.4 H 15.5 H Plt Count 530 H 604 H Lymph % (Auto) [place] % (Auto) Lymph # (Auto) [place] # (Auto) Seg Neutrophils % Seg Neuts % (Manual) 91.0 H 72.0 H Lymphocytes % (Manual) 9.0 L 1.0 L Monocytes % (Manual) 8.0 H Nucleated RBC % 1.0 H Seg Neutrophils # Seg Neutrophils # Man 15.8 H 12.9 H Lymphocytes # (Manual) 0.2 L Monocytes # (Manual) 1.4 H PT INR D-Dimer ABG pH ABG pO2 ABG HCO3 ABG O2 Saturation ABG Base Excess ABG Hemoglobin Oxyhemoglobin Sodium Potassium 3.5 L Chloride Carbon Dioxide 21 L BUN Creatinine 0.5 L Glucose POC Glucose Lactic Acid Calcium 8.0 L Phosphorus Magnesium Ferritin ALT Lactate Dehydrogenase Total Creatine Kinase C-Reactive Protein Total Protein Albumin Urine Blood Urine WBC (Auto) U Epithel Cells (Auto) Crossmatch 10/01/21 10/01/21 10/02/21 07:49 10:45 05:41 WBC 23.2 H RBC 2.90 L Hgb 7.9 L Hct 24.8 L MCH 27 L MCHC RDW 15.3 H Plt Count 621 H Lymph % (Auto) [place] % (Auto) Lymph # (Auto) [place] # (Auto) Seg Neutrophils % Seg Neuts % (Manual) 88.0 H Lymphocytes % (Manual) 2.0 L Monocytes % (Manual) Nucleated RBC % Seg Neutrophils # Seg Neutrophils # Man 20.4 H Lymphocytes # (Manual) 0.5 L Monocytes # (Manual) 1.4 H PT INR D-Dimer ABG pH ABG pO2 ABG HCO3 ABG O2 Saturation ABG Base Excess ABG Hemoglobin Oxyhemoglobin Sodium Potassium Chloride Carbon Dioxide 20 L BUN Creatinine 0.5 L Glucose POC Glucose Lactic Acid Calcium 7.6 L Phosphorus Magnesium Ferritin ALT Lactate Dehydrogenase Total Creatine Kinase C-Reactive Protein Total Protein Albumin Urine Blood Urine WBC (Auto) U Epithel Cells (Auto) Crossmatch See Detail 10/02/21 10/02/21 10/02/21 05:41 07:47 11:10 WBC RBC Hgb Hct MCH MCHC RDW Plt Count Lymph % (Auto) [place] % (Auto) Lymph # (Auto) [place] # (Auto) Seg Neutrophils % Seg Neuts % (Manual) Lymphocytes % (Manual) Monocytes % (Manual) Nucleated RBC % Seg Neutrophils # Seg Neutrophils # Man Lymphocytes # (Manual) Monocytes # (Manual) PT INR D-Dimer ABG pH ABG pO2 ABG HCO3 ABG O2 Saturation ABG Base Excess ABG Hemoglobin Oxyhemoglobin Sodium Potassium Chloride Carbon Dioxide BUN Creatinine Glucose 130 H POC Glucose 145 H 120 H Lactic Acid Calcium 6.9 L Phosphorus Magnesium Ferritin ALT Lactate Dehydrogenase Total Creatine Kinase C-Reactive Protein Total Protein Albumin Urine Blood Urine WBC (Auto) U Epithel Cells (Auto) Crossmatch 10/02/21 10/03/21 10/03/21 16:14 04:55 04:55 WBC 26.1 H RBC 2.31 L Hgb 6.3 L Hct 19.8 L* MCH MCHC RDW 15.9 H Plt Count 598 H Lymph % (Auto) [place] % (Auto) Lymph # (Auto) [place] # (Auto) Seg Neutrophils % Seg Neuts % (Manual) 82.0 H Lymphocytes % (Manual) 1.0 L Monocytes % (Manual) 10.0 H Nucleated RBC % Seg Neutrophils # Seg Neutrophils # Man 21.4 H Lymphocytes # (Manual) 0.3 L Monocytes # (Manual) 2.6 H PT INR D-Dimer ABG pH ABG pO2 ABG HCO3 ABG O2 Saturation ABG Base Excess ABG Hemoglobin Oxyhemoglobin Sodium Potassium Chloride Carbon Dioxide BUN 22 H Creatinine 1.7 H D Glucose 145 H POC Glucose 109 H Lactic Acid Calcium 6.4 L Phosphorus Magnesium 2.40 H Ferritin ALT Lactate Dehydrogenase Total Creatine Kinase C-Reactive Protein Total Protein 4.2 L Albumin 1.6 L Urine Blood Urine WBC (Auto) U Epithel Cells (Auto) Crossmatch 10/03/21 10/03/21 10/03/21 07:15 11:49 17:06 WBC RBC Hgb Hct MCH MCHC RDW Plt Count Lymph % (Auto) [place] % (Auto) Lymph # (Auto) [place] # (Auto) Seg Neutrophils % Seg Neuts % (Manual) Lymphocytes % (Manual) Monocytes % (Manual) Nucleated RBC % Seg Neutrophils # Seg Neutrophils # Man Lymphocytes # (Manual) Monocytes # (Manual) PT INR D-Dimer ABG pH ABG pO2 ABG HCO3 ABG O2 Saturation ABG Base Excess ABG Hemoglobin Oxyhemoglobin Sodium Potassium Chloride Carbon Dioxide BUN Creatinine Glucose POC Glucose 162 H 171 H 174 H Lactic Acid Calcium Phosphorus Magnesium Ferritin ALT Lactate Dehydrogenase Total Creatine Kinase C-Reactive Protein Total Protein Albumin Urine Blood Urine WBC (Auto) U Epithel Cells (Auto) Crossmatch 10/03/21 10/04/21 10/04/21 23:31 04:44 04:44 WBC 26.4 H RBC 2.33 L Hgb 6.6 L Hct 19.4 L* MCH MCHC RDW 16.1 H Plt Count 602 H Lymph % (Auto) [place] % (Auto) Lymph # (Auto) [place] # (Auto) Seg Neutrophils % Seg Neuts % (Manual) 80.0 H Lymphocytes % (Manual) 5.0 L Monocytes % (Manual) Nucleated RBC % Seg Neutrophils # Seg Neutrophils # Man 21.1 H Lymphocytes # (Manual) Monocytes # (Manual) 1.8 H PT INR D-Dimer ABG pH ABG pO2 ABG HCO3 ABG O2 Saturation ABG Base Excess ABG Hemoglobin Oxyhemoglobin Sodium 135 L Potassium 3.4 L Chloride Carbon Dioxide 21 L BUN 28 H Creatinine 2.0 H Glucose 171 H POC Glucose 179 H Lactic Acid Calcium 6.7 L Phosphorus 1.30 L D Magnesium 2.40 H Ferritin ALT Lactate Dehydrogenase Total Creatine Kinase C-Reactive Protein Total Protein Albumin Urine Blood Urine WBC (Auto) U Epithel Cells (Auto) Crossmatch 10/04/21 10/04/21 10/04/21 05:25 12:01 13:30 WBC RBC Hgb Hct MCH MCHC RDW Plt Count Lymph % (Auto) [place] % (Auto) Lymph # (Auto) [place] # (Auto) Seg Neutrophils % Seg Neuts % (Manual) Lymphocytes % (Manual) Monocytes % (Manual) Nucleated RBC % Seg Neutrophils # Seg Neutrophils # Man Lymphocytes # (Manual) Monocytes # (Manual) PT INR D-Dimer ABG pH ABG pO2 ABG HCO3 ABG O2 Saturation ABG Base Excess ABG Hemoglobin Oxyhemoglobin Sodium Potassium Chloride Carbon Dioxide BUN Creatinine Glucose POC Glucose 174 H 172 H Lactic Acid Calcium Phosphorus Magnesium Ferritin ALT Lactate Dehydrogenase Total Creatine Kinase C-Reactive Protein Total Protein Albumin Urine Blood Urine WBC (Auto) U Epithel Cells (Auto) Crossmatch See Detail 10/04/21 10/04/21 10/04/21 16:47 20:28 22:23 WBC RBC Hgb 8.5 L Hct 25.1 L MCH MCHC RDW Plt Count Lymph % (Auto) [place] % (Auto) Lymph # (Auto) [place] # (Auto) Seg Neutrophils % Seg Neuts % (Manual) Lymphocytes % (Manual) Monocytes % (Manual) Nucleated RBC % Seg Neutrophils # Seg Neutrophils # Man Lymphocytes # (Manual) Monocytes # (Manual) PT INR D-Dimer ABG pH ABG pO2 ABG HCO3 ABG O2 Saturation ABG Base Excess ABG Hemoglobin Oxyhemoglobin Sodium Potassium Chloride Carbon Dioxide BUN Creatinine Glucose POC Glucose 135 H 152 H Lactic Acid Calcium Phosphorus Magnesium Ferritin ALT Lactate Dehydrogenase Total Creatine Kinase C-Reactive Protein Total Protein Albumin Urine Blood Urine WBC (Auto) U Epithel Cells (Auto) Crossmatch 10/05/21 10/05/21 10/05/21 04:40 04:40 04:40 WBC 24.7 H RBC 3.02 L Hgb 8.4 L Hct 25.5 L MCH MCHC RDW 16.2 H Plt Count 644 H Lymph % (Auto) [place] % (Auto) Lymph # (Auto) [place] # (Auto) Seg Neutrophils % Seg Neuts % (Manual) 91.0 H Lymphocytes % (Manual) 7.0 L Monocytes % (Manual) Nucleated RBC % Seg Neutrophils # Seg Neutrophils # Man 22.5 H Lymphocytes # (Manual) Monocytes # (Manual) PT 17.8 H INR 1.31 H D-Dimer ABG pH ABG pO2 ABG HCO3 ABG O2 Saturation ABG Base Excess ABG Hemoglobin Oxyhemoglobin Sodium 135 L Potassium Chloride Carbon Dioxide BUN 29 H Creatinine 2.1 H Glucose 156 H POC Glucose Lactic Acid Calcium 7.6 L Phosphorus 1.90 L D Magnesium Ferritin ALT Lactate Dehydrogenase Total Creatine Kinase C-Reactive Protein Total Protein 5.2 L D Albumin 1.8 L Urine Blood Urine WBC (Auto) U Epithel Cells (Auto) Crossmatch 10/05/21 10/05/21 10/05/21 05:08 18:17 23:37 WBC RBC Hgb Hct MCH MCHC RDW Plt Count Lymph % (Auto) [place] % (Auto) Lymph # (Auto) [place] # (Auto) Seg Neutrophils % Seg Neuts % (Manual) Lymphocytes % (Manual) Monocytes % (Manual) Nucleated RBC % Seg Neutrophils # Seg Neutrophils # Man Lymphocytes # (Manual) Monocytes # (Manual) PT INR D-Dimer ABG pH ABG pO2 ABG HCO3 ABG O2 Saturation ABG Base Excess ABG Hemoglobin Oxyhemoglobin Sodium Potassium Chloride Carbon Dioxide BUN Creatinine Glucose POC Glucose 156 H 119 H 130 H Lactic Acid Calcium Phosphorus Magnesium Ferritin ALT Lactate Dehydrogenase Total Creatine Kinase C-Reactive Protein Total Protein Albumin Urine Blood Urine WBC (Auto) U Epithel Cells (Auto) Crossmatch 10/06/21 10/06/21 10/06/21 04:27 05:27 05:27 WBC 23.4 H RBC 2.84 L Hgb 7.8 L Hct 23.9 L MCH MCHC RDW 16.2 H Plt Count 712 H Lymph % (Auto) [place] % (Auto) Lymph # (Auto) [place] # (Auto) Seg Neutrophils % Seg Neuts % (Manual) Lymphocytes % (Manual) Monocytes % (Manual) Nucleated RBC % Seg Neutrophils # Seg Neutrophils # Man Lymphocytes # (Manual) Monocytes # (Manual) PT INR D-Dimer ABG pH ABG pO2 ABG HCO3 ABG O2 Saturation ABG Base Excess ABG Hemoglobin Oxyhemoglobin Sodium 134 L Potassium Chloride Carbon Dioxide 20 L BUN 28 H Creatinine 1.9 H Glucose 132 H POC Glucose 132 H Lactic Acid Calcium 7.8 L Phosphorus Magnesium Ferritin ALT Lactate Dehydrogenase Total Creatine Kinase 242 H C-Reactive Protein Total Protein Albumin Urine Blood Urine WBC (Auto) U Epithel Cells (Auto) Crossmatch 10/06/21 10/06/21 10/06/21 16:40 20:50 23:39 WBC RBC Hgb Hct MCH MCHC RDW Plt Count Lymph % (Auto) [place] % (Auto) Lymph # (Auto) [place] # (Auto) Seg Neutrophils % Seg Neuts % (Manual) Lymphocytes % (Manual) Monocytes % (Manual) Nucleated RBC % Seg Neutrophils # Seg Neutrophils # Man Lymphocytes # (Manual) Monocytes # (Manual) PT INR D-Dimer ABG pH ABG pO2 ABG HCO3 ABG O2 Saturation ABG Base Excess ABG Hemoglobin Oxyhemoglobin Sodium Potassium Chloride Carbon Dioxide BUN Creatinine Glucose POC Glucose 133 H 116 H 132 H Lactic Acid Calcium Phosphorus Magnesium Ferritin ALT Lactate Dehydrogenase Total Creatine Kinase C-Reactive Protein Total Protein Albumin Urine Blood Urine WBC (Auto) U Epithel Cells (Auto) Crossmatch 10/07/21 10/07/21 10/07/21 05:09 05:13 09:43 WBC 22.3 H RBC 2.81 L Hgb 7.8 L Hct 24.0 L MCH MCHC RDW 16.5 H Plt Count 733 H Lymph % (Auto) [place] % (Auto) Lymph # (Auto) [place] # (Auto) Seg Neutrophils % Seg Neuts % (Manual) 85.0 H Lymphocytes % (Manual) 1.0 L Monocytes % (Manual) Nucleated RBC % Seg Neutrophils # Seg Neutrophils # Man 19.0 H Lymphocytes # (Manual) 0.2 L Monocytes # (Manual) 1.6 H PT INR D-Dimer ABG pH ABG pO2 ABG HCO3 ABG O2 Saturation ABG Base Excess ABG Hemoglobin Oxyhemoglobin Sodium 136 L Potassium Chloride Carbon Dioxide 20 L BUN 29 H Creatinine 1.9 H Glucose 140 H POC Glucose 139 H Lactic Acid Calcium 7.6 L Phosphorus Magnesium Ferritin ALT Lactate Dehydrogenase Total Creatine Kinase C-Reactive Protein Total Protein Albumin Urine Blood Urine WBC (Auto) U Epithel Cells (Auto) Crossmatch 10/07/21 10/07/21 10/08/21 11:38 17:44 00:20 WBC RBC Hgb Hct MCH MCHC RDW Plt Count Lymph % (Auto) [place] % (Auto) Lymph # (Auto) [place] # (Auto) Seg Neutrophils % Seg Neuts % (Manual) Lymphocytes % (Manual) Monocytes % (Manual) Nucleated RBC % Seg Neutrophils # Seg Neutrophils # Man Lymphocytes # (Manual) Monocytes # (Manual) PT INR D-Dimer ABG pH ABG pO2 ABG HCO3 ABG O2 Saturation ABG Base Excess ABG Hemoglobin Oxyhemoglobin Sodium Potassium Chloride Carbon Dioxide BUN Creatinine Glucose POC Glucose 126 H 113 H 129 H Lactic Acid Calcium Phosphorus Magnesium Ferritin ALT Lactate Dehydrogenase Total Creatine Kinase C-Reactive Protein Total Protein Albumin Urine Blood Urine WBC (Auto) U Epithel Cells (Auto) Crossmatch 10/08/21 10/08/21 10/08/21 05:26 05:26 05:29 WBC 21.8 H RBC 2.84 L Hgb 7.8 L Hct 24.1 L MCH 27 L MCHC RDW 16.5 H Plt Count 789 H Lymph % (Auto) [place] % (Auto) Lymph # (Auto) [place] # (Auto) Seg Neutrophils % Seg Neuts % (Manual) Lymphocytes % (Manual) Monocytes % (Manual) Nucleated RBC % Seg Neutrophils # Seg Neutrophils # Man Lymphocytes # (Manual) Monocytes # (Manual) PT INR D-Dimer ABG pH ABG pO2 ABG HCO3 ABG O2 Saturation ABG Base Excess ABG Hemoglobin Oxyhemoglobin Sodium 136 L Potassium Chloride Carbon Dioxide 20 L BUN 31 H Creatinine 1.7 H Glucose 134 H POC Glucose 123 H Lactic Acid Calcium 7.9 L Phosphorus 4.60 H D Magnesium Ferritin ALT Lactate Dehydrogenase Total Creatine Kinase C-Reactive Protein Total Protein Albumin Urine Blood Urine WBC (Auto) U Epithel Cells (Auto) Crossmatch 10/08/21 10/08/21 10/08/21 11:53 17:07 20:08 WBC RBC Hgb Hct MCH MCHC RDW Plt Count Lymph % (Auto) [place] % (Auto) Lymph # (Auto) [place] # (Auto) Seg Neutrophils % Seg Neuts % (Manual) Lymphocytes % (Manual) Monocytes % (Manual) Nucleated RBC % Seg Neutrophils # Seg Neutrophils # Man Lymphocytes # (Manual) Monocytes # (Manual) PT INR D-Dimer ABG pH 7.308 L ABG pO2 40.2 L ABG HCO3 15.7 L ABG O2 Saturation 68 L ABG Base Excess -9.6 L ABG Hemoglobin 9.7 L Oxyhemoglobin 67.8 L Sodium Potassium Chloride Carbon Dioxide BUN Creatinine Glucose POC Glucose 128 H 139 H Lactic Acid Calcium Phosphorus Magnesium Ferritin ALT Lactate Dehydrogenase Total Creatine Kinase C-Reactive Protein Total Protein Albumin Urine Blood Urine WBC (Auto) U Epithel Cells (Auto) Crossmatch 10/08/21 10/08/21 10/08/21 21:30 22:55 22:55 WBC RBC Hgb Hct MCH MCHC RDW Plt Count Lymph % (Auto) [place] % (Auto) Lymph # (Auto) [place] # (Auto) Seg Neutrophils % Seg Neuts % (Manual) Lymphocytes % (Manual) Monocytes % (Manual) Nucleated RBC % Seg Neutrophils # Seg Neutrophils # Man Lymphocytes # (Manual) Monocytes # (Manual) PT INR D-Dimer ABG pH ABG pO2 43.8 L ABG HCO3 19.5 L ABG O2 Saturation 70.7 L ABG Base Excess -5.3 L ABG Hemoglobin 8.6 L Oxyhemoglobin 69.4 L Sodium Potassium Chloride Carbon Dioxide BUN Creatinine Glucose POC Glucose Lactic Acid 2.50 H* Calcium Phosphorus Magnesium Ferritin ALT Lactate Dehydrogenase Total Creatine Kinase C-Reactive Protein Total Protein Albumin Urine Blood Urine WBC (Auto) U Epithel Cells (Auto) Crossmatch See Detail 10/09/21 10/09/21 10/09/21 03:12 05:31 05:31 WBC 20.3 H RBC 2.70 L Hgb 7.4 L Hct 23.1 L MCH 27 L MCHC RDW 16.6 H Plt Count 786 H Lymph % (Auto) [place] % (Auto) Lymph # (Auto) [place] # (Auto) Seg Neutrophils % Seg Neuts % (Manual) 88.0 H Lymphocytes % (Manual) 3.0 L Monocytes % (Manual) Nucleated RBC % Seg Neutrophils # Seg Neutrophils # Man 17.9 H Lymphocytes # (Manual) 0.6 L Monocytes # (Manual) 1.2 H PT INR D-Dimer ABG pH ABG pO2 ABG HCO3 ABG O2 Saturation ABG Base Excess ABG Hemoglobin Oxyhemoglobin Sodium 136 L Potassium Chloride Carbon Dioxide 20 L BUN 32 H Creatinine 1.5 H Glucose 214 H POC Glucose 190 H Lactic Acid Calcium 7.5 L Phosphorus Magnesium Ferritin ALT Lactate Dehydrogenase Total Creatine Kinase C-Reactive Protein Total Protein 5.8 L Albumin 2.3 L Urine Blood Urine WBC (Auto) U Epithel Cells (Auto) Crossmatch 10/09/21 10/09/21 10/09/21 05:31 05:31 05:31 WBC RBC Hgb Hct MCH MCHC RDW Plt Count Lymph % (Auto) [place] % (Auto) Lymph # (Auto) [place] # (Auto) Seg Neutrophils % Seg Neuts % (Manual) Lymphocytes % (Manual) Monocytes % (Manual) Nucleated RBC % Seg Neutrophils # Seg Neutrophils # Man Lymphocytes # (Manual) Monocytes # (Manual) PT INR D-Dimer ABG pH ABG pO2 ABG HCO3 ABG O2 Saturation ABG Base Excess ABG Hemoglobin Oxyhemoglobin Sodium Potassium Chloride Carbon Dioxide BUN Creatinine Glucose POC Glucose Lactic Acid 2.20 H* Calcium Phosphorus Magnesium Ferritin 751.9 H ALT Lactate Dehydrogenase Total Creatine Kinase C-Reactive Protein 15.90 H Total Protein Albumin Urine Blood Urine WBC (Auto) U Epithel Cells (Auto) Crossmatch 10/09/21 10/09/21 10/09/21 05:31 08:45 12:08 WBC RBC Hgb Hct MCH MCHC RDW Plt Count Lymph % (Auto) [place] % (Auto) Lymph # (Auto) [place] # (Auto) Seg Neutrophils % Seg Neuts % (Manual) Lymphocytes % (Manual) Monocytes % (Manual) Nucleated RBC % Seg Neutrophils # Seg Neutrophils # Man Lymphocytes # (Manual) Monocytes # (Manual) PT INR D-Dimer > 12049 H ABG pH ABG pO2 54.3 L ABG HCO3 ABG O2 Saturation 86.6 L ABG Base Excess -2.6 L ABG Hemoglobin 7.2 L Oxyhemoglobin 85.3 L Sodium Potassium Chloride Carbon Dioxide BUN Creatinine Glucose POC Glucose Lactic Acid Calcium Phosphorus Magnesium Ferritin ALT Lactate Dehydrogenase 472 H Total Creatine Kinase C-Reactive Protein Total Protein Albumin Urine Blood Urine WBC (Auto) U Epithel Cells (Auto) Crossmatch 10/09/21 10/09/21 10/10/21 12:19 17:43 00:30 WBC RBC Hgb Hct MCH MCHC RDW Plt Count Lymph % (Auto) [place] % (Auto) Lymph # (Auto) [place] # (Auto) Seg Neutrophils % Seg Neuts % (Manual) Lymphocytes % (Manual) Monocytes % (Manual) Nucleated RBC % Seg Neutrophils # Seg Neutrophils # Man Lymphocytes # (Manual) Monocytes # (Manual) PT INR D-Dimer ABG pH ABG pO2 ABG HCO3 ABG O2 Saturation ABG Base Excess ABG Hemoglobin Oxyhemoglobin Sodium Potassium Chloride Carbon Dioxide BUN Creatinine Glucose POC Glucose 151 H 136 H 132 H Lactic Acid Calcium Phosphorus Magnesium Ferritin ALT Lactate Dehydrogenase Total Creatine Kinase C-Reactive Protein Total Protein Albumin Urine Blood Urine WBC (Auto) U Epithel Cells (Auto) Crossmatch 10/10/21 10/10/21 10/10/21 04:10 04:10 05:41 WBC 20.8 H RBC 2.54 L Hgb 7.1 L Hct 21.8 L MCH MCHC RDW 16.6 H Plt Count 740 H Lymph % (Auto) [place] % (Auto) Lymph # (Auto) [place] # (Auto) Seg Neutrophils % Seg Neuts % (Manual) Lymphocytes % (Manual) Monocytes % (Manual) Nucleated RBC % Seg Neutrophils # Seg Neutrophils # Man Lymphocytes # (Manual) Monocytes # (Manual) PT INR D-Dimer ABG pH ABG pO2 ABG HCO3 ABG O2 Saturation ABG Base Excess ABG Hemoglobin Oxyhemoglobin Sodium 130 L Potassium Chloride 97.9 L Carbon Dioxide 19 L BUN 37 H Creatinine 1.4 H Glucose 181 H POC Glucose 150 H Lactic Acid Calcium 7.8 L Phosphorus Magnesium Ferritin ALT Lactate Dehydrogenase Total Creatine Kinase C-Reactive Protein Total Protein Albumin Urine Blood Urine WBC (Auto) U Epithel Cells (Auto) Crossmatch 10/10/21 10/10/21 10/10/21 11:10 16:00 23:50 WBC RBC Hgb Hct MCH MCHC RDW Plt Count Lymph % (Auto) [place] % (Auto) Lymph # (Auto) [place] # (Auto) Seg Neutrophils % Seg Neuts % (Manual) Lymphocytes % (Manual) Monocytes % (Manual) Nucleated RBC % Seg Neutrophils # Seg Neutrophils # Man Lymphocytes # (Manual) Monocytes # (Manual) PT INR D-Dimer ABG pH ABG pO2 ABG HCO3 ABG O2 Saturation ABG Base Excess ABG Hemoglobin Oxyhemoglobin Sodium Potassium Chloride Carbon Dioxide BUN Creatinine Glucose POC Glucose 136 H 151 H 129 H Lactic Acid Calcium Phosphorus Magnesium Ferritin ALT Lactate Dehydrogenase Total Creatine Kinase C-Reactive Protein Total Protein Albumin Urine Blood Urine WBC (Auto) U Epithel Cells (Auto) Crossmatch 10/10/21 10/11/21 10/11/21 Unknown 03:30 03:30 WBC 23.2 H RBC 2.39 L Hgb 6.7 L Hct 20.3 L MCH MCHC RDW 16.7 H Plt Count 701 H Lymph % (Auto) [place] % (Auto) Lymph # (Auto) [place] # (Auto) Seg Neutrophils % Seg Neuts % (Manual) Lymphocytes % (Manual) Monocytes % (Manual) Nucleated RBC % Seg Neutrophils # Seg Neutrophils # Man Lymphocytes # (Manual) Monocytes # (Manual) PT INR D-Dimer ABG pH 7.505 H ABG pO2 246.1 H ABG HCO3 ABG O2 Saturation 99.4 H ABG Base Excess ABG Hemoglobin 6.0 L Oxyhemoglobin Sodium 135 L Potassium Chloride Carbon Dioxide 20 L BUN 38 H Creatinine 1.6 H Glucose 118 H POC Glucose Lactic Acid Calcium 7.9 L Phosphorus Magnesium Ferritin ALT Lactate Dehydrogenase Total Creatine Kinase C-Reactive Protein Total Protein Albumin Urine Blood Urine WBC (Auto) U Epithel Cells (Auto) Crossmatch 10/11/21 10/11/21 10/12/21 11:41 17:51 00:18 WBC RBC Hgb Hct MCH MCHC RDW Plt Count Lymph % (Auto) [place] % (Auto) Lymph # (Auto) [place] # (Auto) Seg Neutrophils % Seg Neuts % (Manual) Lymphocytes % (Manual) Monocytes % (Manual) Nucleated RBC % Seg Neutrophils # Seg Neutrophils # Man Lymphocytes # (Manual) Monocytes # (Manual) PT INR D-Dimer ABG pH ABG pO2 ABG HCO3 ABG O2 Saturation ABG Base Excess ABG Hemoglobin Oxyhemoglobin Sodium Potassium Chloride Carbon Dioxide BUN Creatinine Glucose POC Glucose 128 H 138 H 174 H Lactic Acid Calcium Phosphorus Magnesium Ferritin ALT Lactate Dehydrogenase Total Creatine Kinase C-Reactive Protein Total Protein Albumin Urine Blood Urine WBC (Auto) U Epithel Cells (Auto) Crossmatch 10/12/21 10/12/21 10/12/21 05:39 06:02 06:02 WBC 19.1 H RBC 3.56 L Hgb 10.0 L D Hct MCH MCHC RDW 17.0 H Plt Count 712 H Lymph % (Auto) [place] % (Auto) Lymph # (Auto) [place] # (Auto) Seg Neutrophils % Seg Neuts % (Manual) Lymphocytes % (Manual) Monocytes % (Manual) Nucleated RBC % Seg Neutrophils # Seg Neutrophils # Man Lymphocytes # (Manual) Monocytes # (Manual) PT INR D-Dimer ABG pH ABG pO2 ABG HCO3 ABG O2 Saturation ABG Base Excess ABG Hemoglobin Oxyhemoglobin Sodium Potassium Chloride Carbon Dioxide BUN 37 H Creatinine 1.5 H Glucose 172 H POC Glucose 158 H Lactic Acid Calcium 8.1 L Phosphorus Magnesium Ferritin ALT Lactate Dehydrogenase Total Creatine Kinase C-Reactive Protein Total Protein Albumin Urine Blood Urine WBC (Auto) U Epithel Cells (Auto) Crossmatch 10/12/21 10/12/21 10/12/21 06:02 06:05 17:43 WBC RBC Hgb Hct MCH MCHC RDW Plt Count Lymph % (Auto) [place] % (Auto) Lymph # (Auto) [place] # (Auto) Seg Neutrophils % Seg Neuts % (Manual) Lymphocytes % (Manual) Monocytes % (Manual) Nucleated RBC % Seg Neutrophils # Seg Neutrophils # Man Lymphocytes # (Manual) Monocytes # (Manual) PT 17.1 H INR 1.24 H D-Dimer ABG pH ABG pO2 ABG HCO3 ABG O2 Saturation ABG Base Excess ABG Hemoglobin Oxyhemoglobin Sodium Potassium Chloride Carbon Dioxide BUN Creatinine Glucose POC Glucose 173 H Lactic Acid Calcium Phosphorus Magnesium Ferritin ALT Lactate Dehydrogenase Total Creatine Kinase C-Reactive Protein Total Protein Albumin Urine Blood Urine WBC (Auto) U Epithel Cells (Auto) Crossmatch See Detail 10/12/21 10/12/21 10/13/21 23:28 Unknown 04:05 WBC RBC Hgb 10.0 L Hct MCH MCHC RDW Plt Count Lymph % (Auto) [place] % (Auto) Lymph # (Auto) [place] # (Auto) Seg Neutrophils % Seg Neuts % (Manual) Lymphocytes % (Manual) Monocytes % (Manual) Nucleated RBC % Seg Neutrophils # Seg Neutrophils # Man Lymphocytes # (Manual) Monocytes # (Manual) PT INR D-Dimer ABG pH ABG pO2 ABG HCO3 ABG O2 Saturation ABG Base Excess ABG Hemoglobin Oxyhemoglobin Sodium Potassium Chloride Carbon Dioxide BUN 34 H Creatinine Glucose 200 H POC Glucose 178 H Lactic Acid Calcium 7.5 L Phosphorus Magnesium 1.60 L Ferritin ALT Lactate Dehydrogenase Total Creatine Kinase C-Reactive Protein Total Protein Albumin Urine Blood Urine WBC (Auto) U Epithel Cells (Auto) Crossmatch 10/13/21 10/13/21 10/13/21 05:09 10:55 13:34 WBC 23.8 H RBC 3.14 L Hgb 9.2 L Hct 27.7 L MCH MCHC RDW 17.5 H Plt Count 572 H Lymph % (Auto) [place] % (Auto) Lymph # (Auto) [place] # (Auto) Seg Neutrophils % Seg Neuts % (Manual) Lymphocytes % (Manual) Monocytes % (Manual) Nucleated RBC % Seg Neutrophils # Seg Neutrophils # Man Lymphocytes # (Manual) Monocytes # (Manual) PT INR D-Dimer ABG pH ABG pO2 ABG HCO3 ABG O2 Saturation ABG Base Excess ABG Hemoglobin Oxyhemoglobin Sodium Potassium Chloride Carbon Dioxide BUN Creatinine Glucose POC Glucose 210 H 168 H Lactic Acid Calcium Phosphorus Magnesium Ferritin ALT Lactate Dehydrogenase Total Creatine Kinase C-Reactive Protein Total Protein Albumin Urine Blood Urine WBC (Auto) U Epithel Cells (Auto) Crossmatch 10/13/21 10/13/21 10/14/21 15:35 23:10 04:05 WBC 19.4 H RBC 2.98 L Hgb 8.4 L Hct 26.3 L MCH MCHC RDW 17.1 H Plt Count 561 H Lymph % (Auto) [place] % (Auto) Lymph # (Auto) [place] # (Auto) Seg Neutrophils % Seg Neuts % (Manual) Lymphocytes % (Manual) Monocytes % (Manual) Nucleated RBC % Seg Neutrophils # Seg Neutrophils # Man Lymphocytes # (Manual) Monocytes # (Manual) PT INR D-Dimer ABG pH ABG pO2 ABG HCO3 ABG O2 Saturation ABG Base Excess ABG Hemoglobin Oxyhemoglobin Sodium Potassium Chloride Carbon Dioxide BUN Creatinine Glucose POC Glucose 154 H 135 H Lactic Acid Calcium Phosphorus Magnesium Ferritin ALT Lactate Dehydrogenase Total Creatine Kinase C-Reactive Protein Total Protein Albumin Urine Blood Urine WBC (Auto) U Epithel Cells (Auto) Crossmatch 10/14/21 10/14/21 10/14/21 04:05 04:05 05:08 WBC RBC Hgb Hct MCH MCHC RDW Plt Count Lymph % (Auto) [place] % (Auto) Lymph # (Auto) [place] # (Auto) Seg Neutrophils % Seg Neuts % (Manual) Lymphocytes % (Manual) Monocytes % (Manual) Nucleated RBC % Seg Neutrophils # Seg Neutrophils # Man Lymphocytes # (Manual) Monocytes # (Manual) PT 19.0 H INR 1.41 H D-Dimer ABG pH ABG pO2 ABG HCO3 ABG O2 Saturation ABG Base Excess ABG Hemoglobin Oxyhemoglobin Sodium Potassium Chloride Carbon Dioxide BUN 33 H Creatinine Glucose 310 H POC Glucose 178 H Lactic Acid Calcium 7.4 L Phosphorus Magnesium Ferritin ALT Lactate Dehydrogenase Total Creatine Kinase C-Reactive Protein Total Protein Albumin Urine Blood Urine WBC (Auto) U Epithel Cells (Auto) Crossmatch 10/14/21 10/14/21 10/14/21 09:29 10:45 11:40 WBC RBC Hgb Hct MCH MCHC RDW Plt Count Lymph % (Auto) [place] % (Auto) Lymph # (Auto) [place] # (Auto) Seg Neutrophils % Seg Neuts % (Manual) Lymphocytes % (Manual) Monocytes % (Manual) Nucleated RBC % Seg Neutrophils # Seg Neutrophils # Man Lymphocytes # (Manual) Monocytes # (Manual) PT INR D-Dimer ABG pH 7.342 L ABG pO2 96.0 H ABG HCO3 26.2 H ABG O2 Saturation ABG Base Excess ABG Hemoglobin 6.1 L Oxyhemoglobin 94.9 L Sodium Potassium Chloride Carbon Dioxide BUN Creatinine Glucose POC Glucose 155 H 137 H Lactic Acid Calcium Phosphorus Magnesium Ferritin ALT Lactate Dehydrogenase Total Creatine Kinase C-Reactive Protein Total Protein Albumin Urine Blood Urine WBC (Auto) U Epithel Cells (Auto) Crossmatch 10/14/21 10/14/21 10/14/21 15:40 21:21 23:46 WBC RBC Hgb Hct MCH MCHC RDW Plt Count Lymph % (Auto) [place] % (Auto) Lymph # (Auto) [place] # (Auto) Seg Neutrophils % Seg Neuts % (Manual) Lymphocytes % (Manual) Monocytes % (Manual) Nucleated RBC % Seg Neutrophils # Seg Neutrophils # Man Lymphocytes # (Manual) Monocytes # (Manual) PT INR D-Dimer ABG pH ABG pO2 ABG HCO3 ABG O2 Saturation ABG Base Excess ABG Hemoglobin Oxyhemoglobin Sodium Potassium Chloride Carbon Dioxide BUN Creatinine Glucose POC Glucose 140 H 111 H 164 H Lactic Acid Calcium Phosphorus Magnesium Ferritin ALT Lactate Dehydrogenase Total Creatine Kinase C-Reactive Protein Total Protein Albumin Urine Blood Urine WBC (Auto) U Epithel Cells (Auto) Crossmatch 10/15/21 10/15/21 10/15/21 05:06 05:40 05:40 WBC 22.7 H RBC 2.94 L Hgb 8.7 L Hct 25.8 L MCH MCHC RDW 17.2 H Plt Count 620 H Lymph % (Auto) [place] % (Auto) Lymph # (Auto) [place] # (Auto) Seg Neutrophils % Seg Neuts % (Manual) Lymphocytes % (Manual) Monocytes % (Manual) Nucleated RBC % Seg Neutrophils # Seg Neutrophils # Man Lymphocytes # (Manual) Monocytes # (Manual) PT INR D-Dimer ABG pH ABG pO2 ABG HCO3 ABG O2 Saturation ABG Base Excess ABG Hemoglobin Oxyhemoglobin Sodium Potassium Chloride Carbon Dioxide BUN 30 H Creatinine Glucose 175 H POC Glucose 155 H Lactic Acid Calcium 7.4 L Phosphorus Magnesium Ferritin ALT Lactate Dehydrogenase Total Creatine Kinase C-Reactive Protein Total Protein Albumin Urine Blood Urine WBC (Auto) U Epithel Cells (Auto) Crossmatch 10/15/21 10/15/21 10/15/21 11:32 17:23 23:35 WBC RBC Hgb Hct MCH MCHC RDW Plt Count Lymph % (Auto) [place] % (Auto) Lymph # (Auto) [place] # (Auto) Seg Neutrophils % Seg Neuts % (Manual) Lymphocytes % (Manual) Monocytes % (Manual) Nucleated RBC % Seg Neutrophils # Seg Neutrophils # Man Lymphocytes # (Manual) Monocytes # (Manual) PT INR D-Dimer ABG pH ABG pO2 ABG HCO3 ABG O2 Saturation ABG Base Excess ABG Hemoglobin Oxyhemoglobin Sodium Potassium Chloride Carbon Dioxide BUN Creatinine Glucose POC Glucose 157 H 136 H 143 H Lactic Acid Calcium Phosphorus Magnesium Ferritin ALT Lactate Dehydrogenase Total Creatine Kinase C-Reactive Protein Total Protein Albumin Urine Blood Urine WBC (Auto) U Epithel Cells (Auto) Crossmatch 10/16/21 10/16/21 10/16/21 04:00 04:00 05:08 WBC 18.0 H RBC 2.80 L Hgb 8.0 L Hct 24.7 L MCH MCHC RDW 17.4 H Plt Count 543 H Lymph % (Auto) [place] % (Auto) Lymph # (Auto) [place] # (Auto) Seg Neutrophils % Seg Neuts % (Manual) Lymphocytes % (Manual) Monocytes % (Manual) Nucleated RBC % Seg Neutrophils # Seg Neutrophils # Man Lymphocytes # (Manual) Monocytes # (Manual) PT INR D-Dimer ABG pH ABG pO2 ABG HCO3 ABG O2 Saturation ABG Base Excess ABG Hemoglobin Oxyhemoglobin Sodium Potassium Chloride Carbon Dioxide BUN 31 H Creatinine Glucose 153 H POC Glucose 149 H Lactic Acid Calcium 8.0 L Phosphorus Magnesium Ferritin ALT Lactate Dehydrogenase Total Creatine Kinase C-Reactive Protein Total Protein 5.5 L Albumin 1.9 L Urine Blood Urine WBC (Auto) U Epithel Cells (Auto) Crossmatch 10/16/21 10/16/21 10/16/21 11:45 17:37 23:48 WBC RBC Hgb Hct MCH MCHC RDW Plt Count Lymph % (Auto) [place] % (Auto) Lymph # (Auto) [place] # (Auto) Seg Neutrophils % Seg Neuts % (Manual) Lymphocytes % (Manual) Monocytes % (Manual) Nucleated RBC % Seg Neutrophils # Seg Neutrophils # Man Lymphocytes # (Manual) Monocytes # (Manual) PT INR D-Dimer ABG pH ABG pO2 ABG HCO3 ABG O2 Saturation ABG Base Excess ABG Hemoglobin Oxyhemoglobin Sodium Potassium Chloride Carbon Dioxide BUN Creatinine Glucose POC Glucose 144 H 130 H 134 H Lactic Acid Calcium Phosphorus Magnesium Ferritin ALT Lactate Dehydrogenase Total Creatine Kinase C-Reactive Protein Total Protein Albumin Urine Blood Urine WBC (Auto) U Epithel Cells (Auto) Crossmatch 10/17/21 10/17/21 10/17/21 04:00 04:00 05:37 WBC 14.0 H RBC 2.46 L Hgb 7.2 L Hct 21.7 L MCH MCHC RDW 17.4 H Plt Count 526 H Lymph % (Auto) [place] % (Auto) Lymph # (Auto) [place] # (Auto) Seg Neutrophils % Seg Neuts % (Manual) Lymphocytes % (Manual) Monocytes % (Manual) Nucleated RBC % Seg Neutrophils # Seg Neutrophils # Man Lymphocytes # (Manual) Monocytes # (Manual) PT INR D-Dimer ABG pH ABG pO2 ABG HCO3 ABG O2 Saturation ABG Base Excess ABG Hemoglobin Oxyhemoglobin Sodium Potassium Chloride Carbon Dioxide BUN 29 H Creatinine Glucose 138 H POC Glucose 137 H Lactic Acid Calcium 7.5 L Phosphorus Magnesium Ferritin ALT Lactate Dehydrogenase Total Creatine Kinase C-Reactive Protein Total Protein Albumin Urine Blood Urine WBC (Auto) U Epithel Cells (Auto) Crossmatch 10/17/21 10/17/21 10/17/21 11:45 12:50 16:13 WBC RBC Hgb Hct MCH MCHC RDW Plt Count Lymph % (Auto) [place] % (Auto) Lymph # (Auto) [place] # (Auto) Seg Neutrophils % Seg Neuts % (Manual) Lymphocytes % (Manual) Monocytes % (Manual) Nucleated RBC % Seg Neutrophils # Seg Neutrophils # Man Lymphocytes # (Manual) Monocytes # (Manual) PT INR D-Dimer ABG pH ABG pO2 ABG HCO3 ABG O2 Saturation ABG Base Excess ABG Hemoglobin Oxyhemoglobin Sodium Potassium Chloride Carbon Dioxide BUN Creatinine Glucose POC Glucose 145 H 128 H Lactic Acid Calcium Phosphorus Magnesium Ferritin ALT Lactate Dehydrogenase Total Creatine Kinase C-Reactive Protein Total Protein Albumin Urine Blood Urine WBC (Auto) U Epithel Cells (Auto) Crossmatch See Detail 10/17/21 10/18/21 10/18/21 23:46 04:28 04:28 WBC 16.6 H RBC 2.81 L Hgb 8.4 L Hct 24.4 L MCH MCHC RDW 16.8 H Plt Count 516 H Lymph % (Auto) [place] % (Auto) Lymph # (Auto) [place] # (Auto) Seg Neutrophils % Seg Neuts % (Manual) Lymphocytes % (Manual) Monocytes % (Manual) Nucleated RBC % Seg Neutrophils # Seg Neutrophils # Man Lymphocytes # (Manual) Monocytes # (Manual) PT INR D-Dimer ABG pH ABG pO2 ABG HCO3 ABG O2 Saturation ABG Base Excess ABG Hemoglobin Oxyhemoglobin Sodium Potassium Chloride Carbon Dioxide BUN 26 H Creatinine Glucose 144 H POC Glucose 124 H Lactic Acid Calcium 7.5 L Phosphorus Magnesium Ferritin ALT 6 L Lactate Dehydrogenase Total Creatine Kinase C-Reactive Protein Total Protein 6.1 L Albumin 2.0 L Urine Blood Urine WBC (Auto) U Epithel Cells (Auto) Crossmatch 10/18/21 10/18/21 10/18/21 05:19 11:34 11:40 WBC RBC Hgb Hct MCH MCHC RDW Plt Count Lymph % (Auto) [place] % (Auto) Lymph # (Auto) [place] # (Auto) Seg Neutrophils % Seg Neuts % (Manual) Lymphocytes % (Manual) Monocytes % (Manual) Nucleated RBC % Seg Neutrophils # Seg Neutrophils # Man Lymphocytes # (Manual) Monocytes # (Manual) PT INR D-Dimer ABG pH 7.466 H ABG pO2 90.6 H ABG HCO3 29.0 H ABG O2 Saturation ABG Base Excess 4.9 H ABG Hemoglobin 8.6 L Oxyhemoglobin Sodium Potassium Chloride Carbon Dioxide BUN Creatinine Glucose POC Glucose 128 H Lactic Acid Calcium Phosphorus Magnesium Ferritin ALT Lactate Dehydrogenase Total Creatine Kinase C-Reactive Protein Total Protein Albumin Urine Blood Moderate A Urine WBC (Auto) 50.0 H U Epithel Cells (Auto) Crossmatch 10/18/21 10/18/21 10/19/21 12:20 16:18 01:28 WBC RBC Hgb Hct MCH MCHC RDW Plt Count Lymph % (Auto) [place] % (Auto) Lymph # (Auto) [place] # (Auto) Seg Neutrophils % Seg Neuts % (Manual) Lymphocytes % (Manual) Monocytes % (Manual) Nucleated RBC % Seg Neutrophils # Seg Neutrophils # Man Lymphocytes # (Manual) Monocytes # (Manual) PT INR D-Dimer ABG pH ABG pO2 ABG HCO3 ABG O2 Saturation ABG Base Excess ABG Hemoglobin Oxyhemoglobin Sodium Potassium Chloride Carbon Dioxide BUN Creatinine Glucose POC Glucose 151 H 139 H 126 H Lactic Acid Calcium Phosphorus Magnesium Ferritin ALT Lactate Dehydrogenase Total Creatine Kinase C-Reactive Protein Total Protein Albumin Urine Blood Urine WBC (Auto) U Epithel Cells (Auto) Crossmatch 10/19/21 10/19/21 10/19/21 04:23 04:23 04:23 WBC 16.0 H RBC 3.04 L Hgb 8.7 L Hct 26.3 L MCH MCHC RDW 16.9 H Plt Count 500 H Lymph % (Auto) [place] % (Auto) Lymph # (Auto) [place] # (Auto) Seg Neutrophils % Seg Neuts % (Manual) Lymphocytes % (Manual) Monocytes % (Manual) Nucleated RBC % Seg Neutrophils # Seg Neutrophils # Man Lymphocytes # (Manual) Monocytes # (Manual) PT INR D-Dimer ABG pH ABG pO2 ABG HCO3 ABG O2 Saturation ABG Base Excess ABG Hemoglobin Oxyhemoglobin Sodium Potassium Chloride Carbon Dioxide BUN 20 H Creatinine Glucose 138 H POC Glucose Lactic Acid Calcium 7.8 L Phosphorus 1.80 L D Magnesium 1.60 L Ferritin ALT Lactate Dehydrogenase Total Creatine Kinase C-Reactive Protein Total Protein Albumin Urine Blood Urine WBC (Auto) U Epithel Cells (Auto) Crossmatch 10/19/21 10/19/21 10/19/21 14:11 18:05 21:42 WBC RBC Hgb Hct MCH MCHC RDW Plt Count Lymph % (Auto) [place] % (Auto) Lymph # (Auto) [place] # (Auto) Seg Neutrophils % Seg Neuts % (Manual) Lymphocytes % (Manual) Monocytes % (Manual) Nucleated RBC % Seg Neutrophils # Seg Neutrophils # Man Lymphocytes # (Manual) Monocytes # (Manual) PT INR D-Dimer ABG pH ABG pO2 ABG HCO3 ABG O2 Saturation ABG Base Excess ABG Hemoglobin Oxyhemoglobin Sodium Potassium Chloride Carbon Dioxide BUN Creatinine Glucose POC Glucose 161 H 162 H 112 H Lactic Acid Calcium Phosphorus Magnesium Ferritin ALT Lactate Dehydrogenase Total Creatine Kinase C-Reactive Protein Total Protein Albumin Urine Blood Urine WBC (Auto) U Epithel Cells (Auto) Crossmatch 10/20/21 10/20/21 10/20/21 00:01 05:39 11:41 WBC 20.2 H RBC 2.81 L Hgb 8.5 L Hct 24.3 L MCH MCHC 35 H RDW 16.8 H Plt Count 481 H Lymph % (Auto) [place] % (Auto) Lymph # (Auto) [place] # (Auto) Seg Neutrophils % Seg Neuts % (Manual) Lymphocytes % (Manual) Monocytes % (Manual) Nucleated RBC % Seg Neutrophils # Seg Neutrophils # Man Lymphocytes # (Manual) Monocytes # (Manual) PT INR D-Dimer ABG pH ABG pO2 ABG HCO3 ABG O2 Saturation ABG Base Excess ABG Hemoglobin Oxyhemoglobin Sodium Potassium Chloride Carbon Dioxide BUN Creatinine Glucose POC Glucose 152 H 117 H Lactic Acid Calcium Phosphorus Magnesium Ferritin ALT Lactate Dehydrogenase Total Creatine Kinase C-Reactive Protein Total Protein Albumin Urine Blood Urine WBC (Auto) U Epithel Cells (Auto) Crossmatch 10/20/21 10/20/21 10/20/21 11:41 11:50 17:31 WBC RBC Hgb Hct MCH MCHC RDW Plt Count Lymph % (Auto) [place] % (Auto) Lymph # (Auto) [place] # (Auto) Seg Neutrophils % Seg Neuts % (Manual) Lymphocytes % (Manual) Monocytes % (Manual) Nucleated RBC % Seg Neutrophils # Seg Neutrophils # Man Lymphocytes # (Manual) Monocytes # (Manual) PT INR D-Dimer ABG pH ABG pO2 ABG HCO3 ABG O2 Saturation ABG Base Excess ABG Hemoglobin Oxyhemoglobin Sodium Potassium Chloride Carbon Dioxide BUN 20 H Creatinine Glucose 123 H POC Glucose 120 H 125 H Lactic Acid Calcium 7.7 L Phosphorus 2.00 L Magnesium Ferritin ALT Lactate Dehydrogenase Total Creatine Kinase C-Reactive Protein Total Protein Albumin Urine Blood Urine WBC (Auto) U Epithel Cells (Auto) Crossmatch 10/20/21 10/21/21 10/21/21 23:25 04:30 04:30 WBC 23.2 H RBC 2.70 L Hgb 7.9 L Hct 23.2 L MCH MCHC RDW 17.2 H Plt Count Lymph % (Auto) [place] % (Auto) Lymph # (Auto) [place] # (Auto) Seg Neutrophils % Seg Neuts % (Manual) Lymphocytes % (Manual) Monocytes % (Manual) Nucleated RBC % Seg Neutrophils # Seg Neutrophils # Man Lymphocytes # (Manual) Monocytes # (Manual) PT INR D-Dimer ABG pH ABG pO2 ABG HCO3 ABG O2 Saturation ABG Base Excess ABG Hemoglobin Oxyhemoglobin Sodium Potassium Chloride Carbon Dioxide BUN 22 H Creatinine Glucose 117 H POC Glucose 119 H Lactic Acid Calcium 7.7 L Phosphorus Magnesium Ferritin ALT Lactate Dehydrogenase Total Creatine Kinase C-Reactive Protein Total Protein Albumin Urine Blood Urine WBC (Auto) U Epithel Cells (Auto) Crossmatch 10/21/21 10/21/21 10/21/21 05:26 09:05 11:27 WBC RBC Hgb Hct MCH MCHC RDW Plt Count Lymph % (Auto) [place] % (Auto) Lymph # (Auto) [place] # (Auto) Seg Neutrophils % Seg Neuts % (Manual) Lymphocytes % (Manual) Monocytes % (Manual) Nucleated RBC % Seg Neutrophils # Seg Neutrophils # Man Lymphocytes # (Manual) Monocytes # (Manual) PT INR D-Dimer ABG pH 7.509 H ABG pO2 60.3 L ABG HCO3 26.2 H ABG O2 Saturation ABG Base Excess ABG Hemoglobin 6.7 L Oxyhemoglobin Sodium Potassium Chloride Carbon Dioxide BUN Creatinine Glucose POC Glucose 111 H 114 H Lactic Acid Calcium Phosphorus Magnesium Ferritin ALT Lactate Dehydrogenase Total Creatine Kinase C-Reactive Protein Total Protein Albumin Urine Blood Urine WBC (Auto) U Epithel Cells (Auto) Crossmatch 10/21/21 10/21/21 10/22/21 16:45 23:13 05:25 WBC 21.7 H RBC 2.55 L Hgb 7.5 L Hct 22.3 L MCH MCHC RDW 16.8 H Plt Count Lymph % (Auto) [place] % (Auto) Lymph # (Auto) [place] # (Auto) Seg Neutrophils % Seg Neuts % (Manual) 86.0 H Lymphocytes % (Manual) 7.0 L Monocytes % (Manual) Nucleated RBC % Seg Neutrophils # Seg Neutrophils # Man 18.7 H Lymphocytes # (Manual) Monocytes # (Manual) 1.5 H PT INR D-Dimer ABG pH ABG pO2 ABG HCO3 ABG O2 Saturation ABG Base Excess ABG Hemoglobin Oxyhemoglobin Sodium Potassium Chloride Carbon Dioxide BUN Creatinine Glucose POC Glucose 117 H 125 H Lactic Acid Calcium Phosphorus Magnesium Ferritin ALT Lactate Dehydrogenase Total Creatine Kinase C-Reactive Protein Total Protein Albumin Urine Blood Urine WBC (Auto) U Epithel Cells (Auto) Crossmatch 10/22/21 10/22/21 10/22/21 09:02 09:02 11:07 WBC 17.2 H RBC 2.51 L Hgb 7.1 L Hct 21.9 L MCH MCHC RDW 17.2 H Plt Count Lymph % (Auto) 4.7 L [place] % (Auto) 10.2 H Lymph # (Auto) 0.8 L [place] # (Auto) 1.8 H Seg Neutrophils % 84.5 H Seg Neuts % (Manual) Lymphocytes % (Manual) Monocytes % (Manual) Nucleated RBC % Seg Neutrophils # 14.5 H Seg Neutrophils # Man Lymphocytes # (Manual) Monocytes # (Manual) PT INR D-Dimer ABG pH ABG pO2 ABG HCO3 ABG O2 Saturation ABG Base Excess ABG Hemoglobin Oxyhemoglobin Sodium 134 L Potassium Chloride Carbon Dioxide BUN 23 H Creatinine Glucose 117 H POC Glucose 115 H Lactic Acid Calcium 8.1 L Phosphorus Magnesium Ferritin ALT Lactate Dehydrogenase Total Creatine Kinase C-Reactive Protein Total Protein Albumin Urine Blood Urine WBC (Auto) U Epithel Cells (Auto) Crossmatch 10/22/21 10/22/21 10/22/21 16:05 23:15 Unknown WBC RBC Hgb Hct MCH MCHC RDW Plt Count Lymph % (Auto) [place] % (Auto) Lymph # (Auto) [place] # (Auto) Seg Neutrophils % Seg Neuts % (Manual) Lymphocytes % (Manual) Monocytes % (Manual) Nucleated RBC % Seg Neutrophils # Seg Neutrophils # Man Lymphocytes # (Manual) Monocytes # (Manual) PT INR D-Dimer ABG pH ABG pO2 ABG HCO3 ABG O2 Saturation ABG Base Excess ABG Hemoglobin Oxyhemoglobin Sodium 135 L Potassium Chloride Carbon Dioxide BUN 23 H Creatinine Glucose 112 H POC Glucose 123 H 114 H Lactic Acid Calcium 8.2 L Phosphorus Magnesium Ferritin ALT Lactate Dehydrogenase Total Creatine Kinase C-Reactive Protein Total Protein Albumin Urine Blood Urine WBC (Auto) U Epithel Cells (Auto) Crossmatch 10/23/21 10/23/21 10/23/21 04:56 04:56 05:28 WBC 16.5 H RBC 2.46 L Hgb 7.1 L Hct 21.4 L MCH MCHC RDW 16.9 H Plt Count Lymph % (Auto) [place] % (Auto) Lymph # (Auto) [place] # (Auto) Seg Neutrophils % Seg Neuts % (Manual) Lymphocytes % (Manual) Monocytes % (Manual) Nucleated RBC % Seg Neutrophils # Seg Neutrophils # Man Lymphocytes # (Manual) Monocytes # (Manual) PT INR D-Dimer ABG pH ABG pO2 ABG HCO3 ABG O2 Saturation ABG Base Excess ABG Hemoglobin Oxyhemoglobin Sodium Potassium Chloride Carbon Dioxide 21 L BUN 25 H Creatinine Glucose 123 H POC Glucose 130 H Lactic Acid Calcium 8.3 L Phosphorus Magnesium Ferritin ALT Lactate Dehydrogenase Total Creatine Kinase C-Reactive Protein Total Protein Albumin Urine Blood Urine WBC (Auto) U Epithel Cells (Auto) Crossmatch 10/23/21 10/23/21 10/24/21 11:24 17:52 00:11 WBC RBC Hgb Hct MCH MCHC RDW Plt Count Lymph % (Auto) [place] % (Auto) Lymph # (Auto) [place] # (Auto) Seg Neutrophils % Seg Neuts % (Manual) Lymphocytes % (Manual) Monocytes % (Manual) Nucleated RBC % Seg Neutrophils # Seg Neutrophils # Man Lymphocytes # (Manual) Monocytes # (Manual) PT INR D-Dimer ABG pH ABG pO2 ABG HCO3 ABG O2 Saturation ABG Base Excess ABG Hemoglobin Oxyhemoglobin Sodium Potassium Chloride Carbon Dioxide BUN Creatinine Glucose POC Glucose 123 H 121 H 139 H Lactic Acid Calcium Phosphorus Magnesium Ferritin ALT Lactate Dehydrogenase Total Creatine Kinase C-Reactive Protein Total Protein Albumin Urine Blood Urine WBC (Auto) U Epithel Cells (Auto) Crossmatch 10/24/21 10/24/21 10/24/21 04:00 04:00 05:15 WBC 14.2 H RBC 2.55 L Hgb 7.4 L Hct 22.2 L MCH MCHC RDW 17.0 H Plt Count 470 H Lymph % (Auto) [place] % (Auto) Lymph # (Auto) [place] # (Auto) Seg Neutrophils % Seg Neuts % (Manual) Lymphocytes % (Manual) Monocytes % (Manual) Nucleated RBC % Seg Neutrophils # Seg Neutrophils # Man Lymphocytes # (Manual) Monocytes # (Manual) PT INR D-Dimer ABG pH ABG pO2 ABG HCO3 ABG O2 Saturation ABG Base Excess ABG Hemoglobin Oxyhemoglobin Sodium 135 L Potassium Chloride Carbon Dioxide 21 L BUN 26 H Creatinine Glucose 122 H POC Glucose 133 H Lactic Acid Calcium 8.2 L Phosphorus Magnesium Ferritin ALT Lactate Dehydrogenase Total Creatine Kinase C-Reactive Protein Total Protein Albumin Urine Blood Urine WBC (Auto) U Epithel Cells (Auto) Crossmatch 10/24/21 10/25/21 10/25/21 16:53 05:03 05:03 WBC 12.2 H RBC 2.72 L Hgb 7.9 L Hct 23.7 L MCH MCHC RDW 17.3 H Plt Count 486 H Lymph % (Auto) [place] % (Auto) Lymph # (Auto) [place] # (Auto) Seg Neutrophils % Seg Neuts % (Manual) Lymphocytes % (Manual) Monocytes % (Manual) Nucleated RBC % Seg Neutrophils # Seg Neutrophils # Man Lymphocytes # (Manual) Monocytes # (Manual) PT INR D-Dimer ABG pH ABG pO2 ABG HCO3 ABG O2 Saturation ABG Base Excess ABG Hemoglobin Oxyhemoglobin Sodium 134 L Potassium Chloride Carbon Dioxide 19 L BUN 26 H Creatinine Glucose 107 H POC Glucose 129 H Lactic Acid Calcium 8.2 L Phosphorus Magnesium Ferritin ALT Lactate Dehydrogenase Total Creatine Kinase C-Reactive Protein Total Protein Albumin Urine Blood Urine WBC (Auto) U Epithel Cells (Auto) Crossmatch 10/25/21 05:44 WBC RBC Hgb Hct MCH MCHC RDW Plt Count Lymph % (Auto) [place] % (Auto) Lymph # (Auto) [place] # (Auto) Seg Neutrophils % Seg Neuts % (Manual) Lymphocytes % (Manual) Monocytes % (Manual) Nucleated RBC % Seg Neutrophils # Seg Neutrophils # Man Lymphocytes # (Manual) Monocytes # (Manual) PT INR D-Dimer ABG pH ABG pO2 ABG HCO3 ABG O2 Saturation ABG Base Excess ABG Hemoglobin Oxyhemoglobin Sodium Potassium Chloride Carbon Dioxide BUN Creatinine Glucose POC Glucose 113 H Lactic Acid Calcium Phosphorus Magnesium Ferritin ALT Lactate Dehydrogenase Total Creatine Kinase C-Reactive Protein Total Protein Albumin Urine Blood Urine WBC (Auto) U Epithel Cells (Auto) Crossmatch Chest x-ray: pending Allied health notes reviewed: nursing
--- NOTE | 2021-10-25 15:00 | Progress Note ---
Assessment and Plan Postop day #11 status post colostomy creation with closure of abdomen. Patient is afebrile and resolved tachycardia. Leukocytosis improving. Awaiting full return of bowel function. Overal progressing well however slowly. Sputum culture positive for gram-negative rods. Pt finished course abx per ID. Respiratory insufficiency - continue BIPAP per pulmonary prn. Would like to increase PT exercises as tolerated. will trial sips of clear liquids today. Resume NGT suction if pt vomits or does not tolerate. Creatinine has normalized she is making good urine output. Continue supportive care. Postop day #14 status post colorectal anastomosis takedown, with abdominal washout and ABThera wound VAC. Postop day #22 status post laparoscopic converted to open left hemicolectomy with appendectomy for perforated appendicitis with fistulization to sigmoid colon. Subjective Date of service: 10/25/21 Narrative: No acute events overnight Pt says she is starting to feel better compared. She tolerated water and ice yesterday with no nausea or vomiting. Denies pain. Objective Vital Signs - 12hr 10/25/21 10/25/21 10/25/21 03:00 03:30 04:00 Temperature 98.8 F Pulse Rate 81 80 76 Pulse Rate [ From Monitor] Respiratory 17 29 H 30 H Rate Blood Pressure 91/58 95/62 99/64 O2 Sat by Pulse 98 99 84 Oximetry 10/25/21 10/25/21 10/25/21 04:30 05:00 05:30 Temperature Pulse Rate 80 76 75 Pulse Rate [ From Monitor] Respiratory 28 H 25 H 31 H Rate Blood Pressure 91/60 99/65 94/63 O2 Sat by Pulse 100 98 96 Oximetry 10/25/21 10/25/21 10/25/21 06:00 06:31 07:00 Temperature Pulse Rate 74 72 73 Pulse Rate [ From Monitor] Respiratory 22 13 32 H Rate Blood Pressure 96/56 97/57 102/64 O2 Sat by Pulse 99 94 93 Oximetry 10/25/21 10/25/21 10/25/21 07:30 08:00 08:30 Temperature 99.3 F Pulse Rate 73 72 81 Pulse Rate [ 72 From Monitor] Respiratory 30 H 29 H 19 Rate Blood Pressure 85/59 88/55 94/56 O2 Sat by Pulse 97 Oximetry 10/25/21 10/25/21 10/25/21 09:01 09:30 10:00 Temperature Pulse Rate 79 77 82 Pulse Rate [ From Monitor] Respiratory 18 16 31 H Rate Blood Pressure 94/44 96/59 110/71 O2 Sat by Pulse 97 100 96 Oximetry 10/25/21 10/25/21 10/25/21 10:30 11:00 11:30 Temperature Pulse Rate 75 74 84 Pulse Rate [ From Monitor] Respiratory 26 H 26 H 15 Rate Blood Pressure 106/70 108/71 96/75 O2 Sat by Pulse 98 96 Oximetry 10/25/21 10/25/21 10/25/21 12:00 12:30 13:01 Temperature 99.1 F Pulse Rate 76 77 81 Pulse Rate [ From Monitor] Respiratory 21 24 17 Rate Blood Pressure 107/69 105/74 106/70 O2 Sat by Pulse 99 98 96 Oximetry - General physical appearance well developed, no distress, no pain - ENT no hearing loss - Respiratory normal expansion, normal respiratory effort - Abdomen soft, not tender, not distended, not guarding, other (midline incision intact, serous drainage from midline, Aelx drain clear serous, ostomy pink, minimal output) - Musculoskeletal other (bilateral LE edema) - Psychiatric oriented to time, oriented to person - Labs 10/25/21 05:03 10/25/21 05:03 Diabetes panel 10/25/21 Range/Units 05:03 Sodium 134 L (137-145) mmol/L Potassium 4.2 (3.6-5.0) mmol/L Chloride 99.9 (98-107) mmol/L Carbon Dioxide 19 L (22-30) mmol/L BUN 26 H (7-17) mg/dL Creatinine 0.9 (0.6-1.2) mg/dL Glucose 107 H (65-100) mg/dL Calcium 8.2 L (8.4-10.2) mg/dL Calcium panel 10/25/21 Range/Units 05:03 Calcium 8.2 L (8.4-10.2) mg/dL Phosphorus 3.80 (2.5-4.5) mg/dL Pituitary panel 10/25/21 Range/Units 05:03 Sodium 134 L (137-145) mmol/L Potassium 4.2 (3.6-5.0) mmol/L Chloride 99.9 (98-107) mmol/L Carbon Dioxide 19 L (22-30) mmol/L BUN 26 H (7-17) mg/dL Creatinine 0.9 (0.6-1.2) mg/dL Glucose 107 H (65-100) mg/dL Calcium 8.2 L (8.4-10.2) mg/dL Adrenal panel 10/25/21 Range/Units 05:03 Sodium 134 L (137-145) mmol/L Potassium 4.2 (3.6-5.0) mmol/L Chloride 99.9 (98-107) mmol/L Carbon Dioxide 19 L (22-30) mmol/L BUN 26 H (7-17) mg/dL Creatinine 0.9 (0.6-1.2) mg/dL Glucose 107 H (65-100) mg/dL Calcium 8.2 L (8.4-10.2) mg/dL
--- NOTE | 2021-10-25 17:46 | Progress Note ---
<BKFRANCISCO H. - Last Filed: 10/25/21 17:48> Assessment and Plan Assessment and plan: This is a 31-year-old female with obesity and nephrolithiasis admitted with pericolonic abscess secondary to contained perforated diverticulitis, peritonitis complicated by acute blood loss anemia, acute kidney injury and acute hypoxic respiratory failure. Neuro: Anxiety -s/p precedex gtt -prn haldol -Avoid delirium -Reorientation as needed -Maintain sleep-wake cycle -Psych/mental health consulted, appreciate recommendations Cardiac: NAD -Blood pressure monitoring per protocol -s/p vasopressor support with Levophed and vasopressin -MAP goal greater than 65 -Echocardiogram shows normal right ventricular function, LVEF 55 to 60% Respiratory: Acute hypoxic respiratory failure -[facility] consulted, appreciate recommendations -Intubated s/p code met on 10/08 and extubated 10/18 -Currently on NC -Bipap q hs -Supplemental Oxygen as needed -Pulm hygiene GI: 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, diverticulitis with abscess, moderate protein calorie malnutrition, h/o obesity -Surgery consulted, appreciate recommendations -s/p ex lap with washout of pericolonic abscess and drain placement on 09/26/2021 -s/p open left hemicolectomy, appendectomy and partial omentectomy on 10/01 -s/p colostomy creation with closure of abdomen on 10/14/2021 -10/09 CT abdomen/pelvis showed a new collection of air within the left midabdomen -CT guided drain placement with IR -IR findings: Fluid collections abutting the colonic anastamosis and drain passed into the colon originally requiring retraction into the fluid collection, left mild to moderate hydronephrosis, 700 ml brown serous fluid from the mid abdominal drain (drain #1), 200 mL brown thick fluid from the left lateral drain (drain #2) -24 hours: -579 mL -PPI -TPN : Acute kidney injury secondary to vasomotor nephropathy versus contrast induced, Possible Bladder injury -Nephrology and urology consulted, appreciate recommendations -Strict intake and output -Renally dose medications -Avoid nephrotoxic medications -Daily weights -s/p IV Lasix nephrology -Trend BMP -Repeat magnesium -S/p bilateral ureteral stents -10/12 Intra-Op cystoscopy completed and bilateral ureteral stents placed (removed 10/13) -Repeat renal US noted ID: Acute sepsis secondary to pericolonic abscess with appendiceal rupture fis tulization, peritonitis, VRE and jean marie albicans in wound culture -Infectious disease consulted, appreciate recommendations -COVID 19 PCR negative -S/p drain placement and diagnostic laparotomy on 09/26 -Antibiotic therapy per ID -completed course -f/u blood culture -Monitor WBC and temperature curve Endo: NAD -Avoid hypoglycemia -SSI -Accu-Cheks q6 -Long-acting insulin, titrate as needed Heme: Acute blood loss anemia, elevated D-dimer, hematuria, leukocytosis, thrombocytosis -Patient had hematuria after ureteral injury sustained from surgical procedures -Urology consulted, appreciate recommendation -10/09 CTA chest with no evidence of PE. Findings suggesting multifocal pneumonia vs pulmonary edema -Bilateral lower extremity Doppler ultrasound shows no sonographic evidence of DVT however shows subcutaneous edema in lower extremities -Trend CBC -Transfuse hemoglobin less than 7 -S/p 7 units PRBC -Monitor for signs of bleeding -SCDs to BLE while in bed -Heparin subq The high probability of a clinically significant, sudden or life threatening deterioration of the [multi] system(s) required my full and direct attention, intervention and personal management. The aggregate critical care time was [60] minutes. This time is in addition to time spent performing reported procedures but includes the following: [x] Data Review and interpretation [x] Patient assessment and monitoring of vital signs [x] Documentation [x] Medication orders and management Disposition Plan: icu Total Time Spent with Patient (Minutes): 60 History Interval history: This is a 31-year-old female with obesity and nephrolithiasis admitted with complaints of abdominal pain, lower back pain, nausea no with episodes of vomiting over the past dayon 09/24. Patient underwent a CT scan of the abdomen and pelvis and was found to have acute diverticulitis complicated by sepsis and was admitted to the medical floor initiated sepsis protocol. Surgery team was consulted in the emergency department. ICU Course to Date: 10/09: Intubated and sedated, RASS -1 to -2. Recent CXR noted with worsen bilateral opacities with persistent leukocytosis, elevated lactic, and now on 2 pressors. Patient remains afebrile, and already on IV Abx per ID. Will swab patient for COVID. Given recent surgery orders placed for CTA chest, CT Abd/plevis. And also BLE dopplers due to elevated D-Dimer. Renal function is improving, additional IVF to flush out kidney post contrast, Nephrology is also following. Continue TPN and NGT to LIS. 10/10: COVID PCR negative. CTA chest and Abd/plevis noted. No evidence of PE. Patient received X1 dose of 20mg IV lasix per Nephro for pulmonary edema, this am CXR with some improvement, renal function is also improving. Wean vent setting as tolerated per [facility]. Plan for possible CT guided drainage placement in IR tomorrow. Continue TPN and NGT to LIS. 10/11: Patient with anemia, 1 unit PRBC, scheduled for CT-guided drain image of air pocket. Will place on CPAP on return. Slightly worsening renal function but nephrology is on the case. 10/12: Taken to OR today for diverting ileostomy, given 3 units PRBC yesterday and appropriate response. Surgical culture grew yeast and ID added added fluconazole. 10/13: Hypomagnesemia repleted, renal function improving. Patient remains sedated with fentanyl and propofol. Updated sister and father at bedside. Ureteral stents removed at bedside. Plan to to take patient to the OR tomorrow for second look, abdominal washout, colostomy creation on hold for abdominal closure by surgery. We will hold p.m. dose of heparin. 10/14: Plan to take patient back to OR today, prophylactic anticougulation on hold. 2 units prbc on hold for surgery. Plan to close abd and colostomy creation. Vent weaning on hold till abd closure 10/15: Renal function remains stable, leukocytosis increased, remains sedated on propofol and fentanyl and on mechanical ventilation. Plan is to hold SBT until the weekend. Repeat renal ultrasound pending per urology. 10/16: no acute events overnight. remains on fent and propofol. plan to sbt on monday. 10/17: noted drop in hgb from 8 to 7.2 and will given one unit prbc. remains on fent/propofol. CARMEN overnight. Will retract OETT per rad reading. 10/18: Febrile this am with worsen leukocytosis. Continue IV Abx per ID, orders placed for cultures. Patient tolerating PST, d/w CCM plan for possible extubation today. Abdominal insicion and colostomy noted, no signs of any complications noted. Continue TPN and NGT to LIS per General surgery. 10/19: S/p extubation, now stable on 2L NC. Fevers improved, cultures pending continue IV Abx per ID. Patient is still with absent bowel sounds, continue TPN and NGT to LIS per General surg. Okay to remove brantley per Urology. Electrolytes repleted, repeat labs in the am. Patient is stable for transfer to [facility]. 10/20: Continue current management. Patient remained stable on 2 L of oxygen but appears anxious with increased tachypnea. We will add incentive spirometer. Will check and monitor intermittent x-rays. Continue antibiotics per infectious disease. Renal function has normalized. We will good urine output. We will check blood work in a.m. Awaiting return of bowel function 10/21: Patient on BiPAP this am, xray from yesterday concerning for Aspiration pneumonia vs atalalectsis, patient still with increased WOB although improved compared to yesterday. Leukocytosis a bit worse, will continue to monitor and discuss with ID if more broad spectrum therapy should be considered. She is currently on Bactrim for positive tracheal aspirate with Stenotrophomonas. Continue aspiration precautions. may need repeat xray but will discuss with pulmonary. Continue Strict NPO and Aspiration precautions. Continues on TPN. Prognosis guarded. ?Third spacing 10/22: Back in the ICU due to hypoxia, increased WOB, and tachycardia requiring continuous Bipap. Patient is now on precedex gtt for increased anxiety. Repeat BLE doppler with no evidence of DVT . D/W [facility] paln for CTA chest and CT abd/Pelvis today. Mild improvement in leukocytosis today, patient is afebrile, continue IV Abx per ID. Remains on TPN and NGT to LIS. 10/23: CTA chest and CT Abd/Pelvis noted- no evidence of PE, multiloculated collection along the left mid abdomen have all decreased in size, with persistent anasarca. Will started IV Lasix [id number]. Plan to wean to NC today, continue Bipap Qhs or as needed. Close monitoring of renal function and electrolytes, replete as needed. Plan to Clamp NGT today per General Surgery. Continue TPN. 10/24: Patient tolerated IV lasix, stable on 3L NC this am, no respiratory distress noted. Continue gentle diurese, IV Lasix X3 doses. Remains on NGT clamped per Gen Surgery. Patient is tolerating ice chips. Patient is okayed for sips of water per General Surgery. Continue TPN and wound care management per General Surgery. 10/25: We will discontinue Precedex, start as needed Haldol and order PICC line. Magnesium repleted. Continues on TPN. Hospitalist Physical - Constitutional Vitals: Temp Pulse Resp BP Pulse Ox 99.4 F 91 H 23 136/94 100 10/25/21 16:12 10/25/21 16:30 10/25/21 16:30 10/25/21 16:30 10/25/21 16:00 General appearance: Present: no acute distress, obese - EENT Eyes: Present: PERRL, EOM intact ENT: hearing intact, clear oral mucosa, dentition normal - Neck Neck: Present: normal ROM - Respiratory Respiratory effort: normal Respiratory: bilateral: CTA - Cardiovascular Rhythm: regular Heart Sounds: Present: S1 & S2. Absent: systolic murmur, diastolic murmur - Extremities Extremities: no ischemia, pulses intact, pulses symmetrical, No edema, normal temperature, normal color Peripheral Pulses: within normal limits - Abdominal General gastrointestinal: soft, non-tender, absent bowel sounds - Integumentary Integumentary: Present: warm, dry - Psychiatric Psychiatric: cooperative - Neurologic Neurologic: CNII-XII intact, no focal deficits, moves all extremities - Allied Health Allied health notes reviewed: nursing, RT, social work Results - Labs CBC & Chem 7: 10/25/21 05:03 10/25/21 05:03 Labs: Laboratory Last Values WBC 12.2 K/mm3 (4.5-11.0) H 10/25/21 05:03 RBC 2.72 M/mm3 (3.65-5.03) L 10/25/21 05:03 Hgb 7.9 gm/dl (10.1-14.3) L 10/25/21 05:03 Hct 23.7 % (30.3-42.9) L 10/25/21 05:03 MCV 87 fl (79-97) 10/25/21 05:03 MCH 29 pg (28-32) 10/25/21 05:03 MCHC 33 % (30-34) 10/25/21 05:03 RDW 17.3 % (13.2-15.2) H 10/25/21 05:03 Plt Count 486 K/mm3 (140-440) H 10/25/21 05:03 Lymph % (Auto) 4.7 % (13.4-35.0) L 10/22/21 09:02 [place] % (Auto) 10.2 % (0.0-7.3) H 10/22/21 09:02 Eos % (Auto) 0.4 % (0.0-4.3) 10/22/21 09:02 Baso % (Auto) 0.2 % (0.0-1.8) 10/22/21 09:02 Lymph # (Auto) 0.8 K/mm3 (1.2-5.4) L 10/22/21 09:02 [place] # (Auto) 1.8 K/mm3 (0.0-0.8) H 10/22/21 09:02 Eos # (Auto) 0.1 K/mm3 (0.0-0.4) 10/22/21 09:02 Baso # (Auto) 0.0 K/mm3 (0.0-0.1) 10/22/21 09:02 Add Manual Diff Complete 10/21/21 16:45 Total Counted 100 10/21/21 16:45 Seg Neutrophils % 84.5 % (40.0-70.0) H 10/22/21 09:02 Seg Neuts % (Manual) 86.0 % (40.0-70.0) H 10/21/21 16:45 Band Neutrophils % 0 % 10/21/21 16:45 Lymphocytes % (Manual) 7.0 % (13.4-35.0) L 10/21/21 16:45 Reactive Lymphs % (Man) 0 % 10/21/21 16:45 Monocytes % (Manual) 7.0 % (0.0-7.3) 10/21/21 16:45 Eosinophils % (Manual) 0 % (0.0-4.3) 10/21/21 16:45 Basophils % (Manual) 0 % (0.0-1.8) 10/21/21 16:45 Metamyelocytes % 0 % 10/21/21 16:45 Myelocytes % 0 % 10/21/21 16:45 Promyelocytes % 0 % 10/21/21 16:45 Blast Cells % 0 % 10/21/21 16:45 Nucleated RBC % Not Reportable 10/21/21 16:45 Seg Neutrophils # 14.5 K/mm3 (1.8-7.7) H 10/22/21 09:02 Seg Neutrophils # Man 18.7 K/mm3 (1.8-7.7) H 10/21/21 16:45 Band Neutrophils # 0.0 K/mm3 10/21/21 16:45 Lymphocytes # (Manual) 1.5 K/mm3 (1.2-5.4) 10/21/21 16:45 Abs React Lymphs (Man) 0.0 K/mm3 10/21/21 16:45 Monocytes # (Manual) 1.5 K/mm3 (0.0-0.8) H 10/21/21 16:45 Eosinophils # (Manual) 0.0 K/mm3 (0.0-0.4) 10/21/21 16:45 Basophils # (Manual) 0.0 K/mm3 (0.0-0.1) 10/21/21 16:45 Metamyelocytes # 0.0 K/mm3 10/21/21 16:45 Myelocytes # 0.0 K/mm3 10/21/21 16:45 Promyelocytes # 0.0 K/mm3 10/21/21 16:45 Blast Cells # 0.0 K/mm3 10/21/21 16:45 Pathologist Review 09/24/21 14:58 WBC Morphology Not Reportable 10/21/21 16:45 Hypersegmented Neuts Rare 10/21/21 16:45 Hyposegmented Neuts Not Reportable 10/21/21 16:45 Hypogranular Neuts Not Reportable 10/21/21 16:45 Smudge Cells Not Reportable 10/21/21 16:45 Toxic Granulation 2+ 10/21/21 16:45 Toxic Vacuolation Not Reportable 10/21/21 16:45 Dohle Bodies Not Reportable 10/21/21 16:45 Pelger-Huet Anomaly Not Reportable 10/21/21 16:45 Marlene Rods Not Reportable 10/21/21 16:45 Platelet Estimate Consistent w auto 10/21/21 16:45 Clumped Platelets Not Reportable 10/21/21 16:45 Plt Clumps, EDTA Not Reportable 10/21/21 16:45 Large Platelets Not Reportable 10/21/21 16:45 Giant Platelets Not Reportable 10/21/21 16:45 Platelet Satelliting Not Reportable 10/21/21 16:45 Plt Morphology Comment Not Reportable 10/21/21 16:45 RBC Morphology Normal 10/21/21 16:45 Dimorphic RBCs Not Reportable 10/21/21 16:45 Polychromasia Not Reportable 10/21/21 16:45 Hypochromasia Not Reportable 10/21/21 16:45 Poikilocytosis Not Reportable 10/21/21 16:45 Anisocytosis Not Reportable 10/21/21 16:45 Microcytosis Not Reportable 10/21/21 16:45 Macrocytosis Not Reportable 10/21/21 16:45 Spherocytes Not Reportable 10/21/21 16:45 Pappenheimer Bodies Not Reportable 10/21/21 16:45 Sickle Cells Not Reportable 10/21/21 16:45 Target Cells Not Reportable 10/21/21 16:45 Tear Drop Cells Not Reportable 10/21/21 16:45 Ovalocytes Not Reportable 10/21/21 16:45 Helmet Cells Not Reportable 10/21/21 16:45 [place] Bodies Not Reportable 10/21/21 16:45 [place] Rings Not Reportable 10/21/21 16:45 [place] Cells Not Reportable 10/21/21 16:45 Bite Cells Not Reportable 10/21/21 16:45 Crenated Cell Not Reportable 10/21/21 16:45 Elliptocytes Not Reportable 10/21/21 16:45 Acanthocytes (Spur) Not Reportable 10/21/21 16:45 Rouleaux Not Reportable 10/21/21 16:45 Hemoglobin C Crystals Not Reportable 10/21/21 16:45 Schistocytes Not Reportable 10/21/21 16:45 Malaria parasites Not Reportable 10/21/21 16:45 Flaco Bodies Not Reportable 10/21/21 16:45 Hem Pathologist Commnt No 10/21/21 16:45 PT 19.0 Sec. (12.2-14.9) H 10/14/21 04:05 INR 1.41 (0.87-1.13) H 10/14/21 04:05 APTT 33.9 Sec. (24.2-36.6) 10/14/21 04:05 D-Dimer > 47657 ng/mlDDU (0-234) H 10/09/21 08:45 ABG pH 7.509 pH Units (7.350-7.450) H 10/21/21 09:05 ABG pCO2 33.7 mm Hg 10/21/21 09:05 ABG pO2 60.3 mm Hg (80.0-90.0) L 10/21/21 09:05 ABG HCO3 26.2 mmol/L (20.0-26.0) H 10/21/21 09:05 ABG O2 Saturation 97.5 % (95.0-99.0) 10/21/21 09:05 ABG O2 Content 9.0 (0.0-44) 10/21/21 09:05 ABG Base Excess 3.0 mmol/L (-2.0-3.0) 10/21/21 09:05 ABG Hemoglobin 6.7 gm/dl (12.0-16.0) L 10/21/21 09:05 ABG Carboxyhemoglobin 1.8 % (0.0-5.0) 10/21/21 09:05 ABG Methemoglobin 0.4 % (0.0-1.5) 10/21/21 09:05 Oxyhemoglobin 95.3 % (95.0-99.0) 10/21/21 09:05 FiO2 28 % 10/21/21 09:05 Sodium 134 mmol/L (137-145) L 10/25/21 05:03 Potassium 4.2 mmol/L (3.6-5.0) 10/25/21 05:03 Chloride 99.9 mmol/L (98-107) 10/25/21 05:03 Carbon Dioxide 19 mmol/L (22-30) L 10/25/21 05:03 Anion Gap 19 mmol/L 10/25/21 05:03 BUN 26 mg/dL (7-17) H 10/25/21 05:03 Creatinine 0.9 mg/dL (0.6-1.2) 10/25/21 05:03 Estimated GFR > 60 ml/min 10/25/21 05:03 BUN/Creatinine Ratio 29 % 10/25/21 05:03 Glucose 107 mg/dL (65-100) H 10/25/21 05:03 POC Glucose 120 mg/dL (70-105) H 10/25/21 11:29 Lactic Acid 1.80 mmol/L (0.7-2.0) 10/10/21 04:10 Calcium 8.2 mg/dL (8.4-10.2) L 10/25/21 05:03 Phosphorus 3.80 mg/dL (2.5-4.5) 10/25/21 05:03 Magnesium 1.80 mg/dL (1.7-2.3) 10/25/21 05:03 Ferritin 751.9 ng/mL (10.0-200.0) H 10/09/21 05:31 Total Bilirubin 0.20 mg/dL (0.1-1.2) 10/18/21 04:28 AST 19 units/L (5-40) 10/18/21 04:28 ALT 6 units/L (7-56) L 10/18/21 04:28 Alkaline Phosphatase 53 units/L (35-129) 10/18/21 04:28 Lactate Dehydrogenase 472 units/L (91-180) H 10/09/21 05:31 Total Creatine Kinase 45 units/L (30-135) 10/13/21 04:05 C-Reactive Protein 15.90 mg/dL (0.00-1.30) H 10/09/21 05:31 Total Protein 6.1 g/dL (6.3-8.2) L 10/18/21 04:28 Albumin 2.0 g/dL (3.9-5) L 10/18/21 04:28 Albumin/Globulin Ratio 0.5 % 10/18/21 04:28 Triglycerides 80 mg/dL (2-149) 10/14/21 04:05 Procalcitonin 12.98 ng/mL (<0.15) 10/09/21 05:31 Urine Color Yellow (Yellow) 10/18/21 11:40 Urine Turbidity Clear (Clear) 10/18/21 11:40 Urine pH 6.0 (5.0-7.0) 10/18/21 11:40 Ur Specific [place] 1.015 (1.003-1.030) 10/18/21 11:40 Urine Protein 30 mg/dl mg/dL (Negative) 10/18/21 11:40 Urine Glucose (UA) Trace mg/dL (Negative) 10/18/21 11:40 Urine Ketones Negative mg/dL (Negative) 10/18/21 11:40 Urine Blood Moderate (Negative) A 10/18/21 11:40 Urine Nitrite Negative (Negative) 10/18/21 11:40 Ur Reducing Substances Not Reportable 09/24/21 14:49 Urine Bilirubin Negative (Negative) 10/18/21 11:40 Urine Ictotest Not Reportable 09/24/21 14:49 Urine Urobilinogen 0.0 mg/dL (<2.0) 10/18/21 11:40 Ur Leukocyte Esterase Negative (Negative) 10/18/21 11:40 Urine WBC (Auto) 50.0 /HPF (0.0-6.0) H 10/18/21 11:40 Urine RBC (Auto) > 182.0 /HPF (0.0-6.0) 10/18/21 11:40 U Epithel Cells (Auto) 2.0 /HPF (0-13.0) 10/18/21 11:40 Urine Bacteria (Auto) 2+ /HPF (Negative) 10/18/21 11:40 Urine WBC Clumps 1+ /HPF 10/18/21 11:40 Hyaline Casts Few /LPF 10/18/21 11:40 Granular Casts Few /LPF 10/18/21 11:40 Urine Mucus 3+ /HPF 10/18/21 11:40 Urine HCG, Qual Negative (Negative) 09/24/21 14:49 Coronavirus (PCR) Negative (Negative) 10/09/21 10:15 Blood Type A POSITIVE 10/17/21 12:50 Antibody Screen Negative 10/17/21 12:50 Crossmatch See Detail 10/17/21 12:50 Brantley/IV: Voiding Method External Female Catheter Active Medications - Current Medications Current Medications: Generic Name Dose Route Start Last Admin Trade Name Freq PRN Reason Stop Dose Admin Acetaminophen 650 mg 10/08/21 21:38 Acetaminophen 325 Mg Tab PO Q6H PRN Pain, Mild (1-3) Albuterol 2.5 mg 09/24/21 18:07 Albuterol 2.5 Mg/3 Ml Nebu IH Q4HRT PRN Shortness Of Breath Dextrose 0 ml 10/03/21 12:37 Dextrose 10% *Hypoglycemia IV PRN PRN Hypoglycemia Diphenhydramine HCl 25 mg 10/04/21 15:14 10/25/21 10:05 Diphenhydramine 50 Mg/Ml Vial IV 25 mg Q6H PRN Administration Itching Haloperidol Lactate 5 mg 10/25/21 13:30 Haloperidol Lactate 5 Mg/1 Ml Inj IV 10/27/21 13:29 Q6H PRN Agitation Heparin Sodium (Porcine) 5,000 unit 10/16/21 10:00 10/25/21 09:25 Heparin 5,000 Unit/1 Ml Vial SUB-Q 5,000 unit Q12HR JAZ Administration Hydromorphone HCl 0.5 mg 10/18/21 15:39 10/25/21 10:00 Hydromorphone 1 Mg/1 Ml Inj IV 0.5 mg Q3H PRN Administration Pain, Moderate (4-6) Hydrophilic Ointment 1 applic 10/08/21 21:00 10/24/21 12:50 Lip Therapy Vaseline TP 1 applic Q2HR PRN Administration Dry Lips Amino Acids/Electrolytes/Dextrose 1,999.92 mls @ 83.33 mls/hr 10/24/21 20:00 10/24/21 19:53 Tpn Adult IV 10/25/21 19:59 83.33 mls/hr DAILY@1999 [facility] Administration Protocol Amino Acids/Electrolytes/Dextrose 1,999.92 mls @ 83.33 mls/hr 10/25/21 20:00 Tpn Adult IV 10/26/21 19:59 DAILY@1999 [facility] Protocol Insulin Glargine 5 units 10/13/21 10:00 10/25/21 09:31 Insulin Glargine 100 Units/Ml SUB-Q 5 units QDAY JAZ Administration Insulin Human Regular 0 units 10/10/21 00:00 10/25/21 12:36 Insulin Regular, Human 100 Units/1 Ml SUB-Q Not Given Q6HR [facility] Protocol Labetalol HCl 10 mg 10/01/21 08:31 10/20/21 09:56 Labetalol 20 Mg/4 Ml Inj IV 10 mg Q6H PRN Administration Hypertension Lorazepam 1 mg 10/21/21 12:48 10/24/21 10:35 Lorazepam 2 Mg/Ml Vial IV 1 mg Q4H PRN Administration Anxiety Multi-Ingred Cream/Lotion/Oil/Oint 1 applic 10/08/21 21:00 Mineral Oil/Petrolatum, White Ophth Oint 3.5 Gm OU Q4HR PRN Dry Eye(s) Naloxone HCl 0.1 mg 10/03/21 14:00 Naloxone 0.4 Mg/1 Ml Inj IV Q2MIN PRN Res Rate </= 8 or 02 SAT < 92% Ondansetron HCl 4 mg 09/24/21 18:07 10/24/21 16:40 Ondansetron 4 Mg/2 Ml Inj IV 4 mg Q8H PRN Administration Nausea And Vomiting Pantoprazole Sodium 40 mg 10/20/21 17:00 10/25/21 09:26 Pantoprazole 40 Mg Inj IV 40 mg QDAY JAZ Administration Phenol 1 spray 10/02/21 13:00 10/03/21 10:23 Phenol 1.4% 177 Ml Bottle MM 1 spray PRN PRN Administration Sore Throat Scopolamine 1 each 10/04/21 10:00 10/25/21 09:28 Scopolamine Transdermal Patch 72 Hr TD 1 each Q3D JAZ Administration Sodium Chloride 10 ml 09/24/21 22:00 10/25/21 09:30 Sodium Chloride 0.9% 10 Ml Flush Syringe IV 10 ml BID JAZ Administration Sodium Chloride 10 ml 09/24/21 18:07 09/25/21 08:34 Sodium Chloride 0.9% 10 Ml Flush Syringe IV 10 ml PRN PRN Administration LINE FLUSH Nutrition/Malnutrition Assess - Dietary Evaluation Nutrition/Malnutrition Findings: Nutrition Notes Start: 09/25/21 15:31 Freq: Status: Active Protocol: Document 10/25/21 10:01 BIN (Rec: 10/25/21 10:48 BIN [email or web address]) Nutrition Notes Initial or Follow up Reassessment Current Diagnosis Acute Kidney Injury,Sepsis, Respiratory Failure, Malnutrition Other Pertinent Diagnosis s/p appendectomy, s/p exp lap with colostomy, anemia Current Diet CPN at 83.33 ml/hr Labs/Tests 10/25: Na 134, CO2 19, BUN 26, Glu 107, Ca 8.2. Pertinent Medications 10/25: Insulin, others nutritionally unremarkable. Height 5 ft 7 in Weight 109 kg [place] Body Weight (kg) 61.36 BMI 37.6 Weight change and time frame No body weight change reported in 1 day. Weight Status Obese Subjective/Other Information Day TPN. Pt is now on room air and exercising with spirometer, according to Physical Assessment History notes and Progress notes. Pt is tolerating ice chips and sips of water, according to Progress notes. Percent of energy/protein needs met: 86% Kcal; 98% AA. Burn Absent Trauma Absent GI Symptoms Other Food Allergy No Skin Integrity/Comment Surgical wound Current % PO Other Minimum of two criteria No #1 Nutrition Diagnosis Altered GI function Diagnosis Progress(for reassessment Continues documentation) Is patient on ventilator? No Is Patient Ambulatory and/or Out of Bed No [facility] 2200.920 Kcal/Kg value to use for calculation 16 Approximate Energy Requirements Using 1744 kcal/Kg Calculation Used for Recommendations Kcal/kg Additional Notes Protein: 2 g/Kg; 123 g/day IBW . Fluids: 1 mL/Kcal, or as per MD. Nutrition Intervention Nutrition Support: Continue CPN at 83.33ml/hr: MVI. Osmolality: 1595. Na 175 mEq. 10/90 % Cl to CO2 ratio. Kcal 1,500 Protein (gm) 120 Carbohydrates (gm) 300 Fat (gm) 0 Fluid (mL) 2,000 Fiber (gm) 0 % RDI: 86% Kcal; 98% AA. Goal #1 Provide at least 75% of energy /protein needs through Parenteral Feeding during LOS. Goal #2 Maintain body weight within +/ -3% of admission body weight during LOS. Follow-Up By: 10/26/21 Additional Comments Continue monitoring CPN tolerance and BM. CMP, Phos, Mg and TG labs ordered. <PAULIE HAY - Last Filed: 10/26/21 08:10> Assessment and Plan Assessment and plan: I saw and evaluated the patient. I agree with the findings and the plan of care as documented in the Nurse Practitioner's~note, with the following corrections and additions. Hospitalist Physical - Constitutional Vitals: Temp Pulse Resp BP Pulse Ox 100.2 F H 110 H 29 H 132/88 96 10/26/21 08:09 10/26/21 07:30 10/26/21 07:30 10/26/21 07:30 10/26/21 07:30 Results - Labs CBC & Chem 7: 10/26/21 04:18 10/26/21 04:18 Labs: Laboratory Last Values WBC 14.5 K/mm3 (4.5-11.0) H 10/26/21 04:18 RBC 2.50 M/mm3 (3.65-5.03) L 10/26/21 04:18 Hgb 7.4 gm/dl (10.1-14.3) L 10/26/21 04:18 Hct 21.8 % (30.3-42.9) L 10/26/21 04:18 MCV 87 fl (79-97) 10/26/21 04:18 MCH 30 pg (28-32) 10/26/21 04:18 MCHC 34 % (30-34) 10/26/21 04:18 RDW 17.0 % (13.2-15.2) H 10/26/21 04:18 Plt Count 495 K/mm3 (140-440) H 10/26/21 04:18 Lymph % (Auto) 4.7 % (13.4-35.0) L 10/22/21 09:02 [place] % (Auto) 10.2 % (0.0-7.3) H 10/22/21 09:02 Eos % (Auto) 0.4 % (0.0-4.3) 10/22/21 09:02 Baso % (Auto) 0.2 % (0.0-1.8) 10/22/21 09:02 Lymph # (Auto) 0.8 K/mm3 (1.2-5.4) L 10/22/21 09:02 [place] # (Auto) 1.8 K/mm3 (0.0-0.8) H 10/22/21 09:02 Eos # (Auto) 0.1 K/mm3 (0.0-0.4) 10/22/21 09:02 Baso # (Auto) 0.0 K/mm3 (0.0-0.1) 10/22/21 09:02 Add Manual Diff Complete 10/21/21 16:45 Total Counted 100 10/21/21 16:45 Seg Neutrophils % 84.5 % (40.0-70.0) H 10/22/21 09:02 Seg Neuts % (Manual) 86.0 % (40.0-70.0) H 10/21/21 16:45 Band Neutrophils % 0 % 10/21/21 16:45 Lymphocytes % (Manual) 7.0 % (13.4-35.0) L 10/21/21 16:45 Reactive Lymphs % (Man) 0 % 10/21/21 16:45 Monocytes % (Manual) 7.0 % (0.0-7.3) 10/21/21 16:45 Eosinophils % (Manual) 0 % (0.0-4.3) 10/21/21 16:45 Basophils % (Manual) 0 % (0.0-1.8) 10/21/21 16:45 Metamyelocytes % 0 % 10/21/21 16:45 Myelocytes % 0 % 10/21/21 16:45 Promyelocytes % 0 % 10/21/21 16:45 Blast Cells % 0 % 10/21/21 16:45 Nucleated RBC % Not Reportable 10/21/21 16:45 Seg Neutrophils # 14.5 K/mm3 (1.8-7.7) H 10/22/21 09:02 Seg Neutrophils # Man 18.7 K/mm3 (1.8-7.7) H 10/21/21 16:45 Band Neutrophils # 0.0 K/mm3 10/21/21 16:45 Lymphocytes # (Manual) 1.5 K/mm3 (1.2-5.4) 10/21/21 16:45 Abs React Lymphs (Man) 0.0 K/mm3 10/21/21 16:45 Monocytes # (Manual) 1.5 K/mm3 (0.0-0.8) H 10/21/21 16:45 Eosinophils # (Manual) 0.0 K/mm3 (0.0-0.4) 10/21/21 16:45 Basophils # (Manual) 0.0 K/mm3 (0.0-0.1) 10/21/21 16:45 Metamyelocytes # 0.0 K/mm3 10/21/21 16:45 Myelocytes # 0.0 K/mm3 10/21/21 16:45 Promyelocytes # 0.0 K/mm3 10/21/21 16:45 Blast Cells # 0.0 K/mm3 10/21/21 16:45 Pathologist Review 09/24/21 14:58 WBC Morphology Not Reportable 10/21/21 16:45 Hypersegmented Neuts Rare 10/21/21 16:45 Hyposegmented Neuts Not Reportable 10/21/21 16:45 Hypogranular Neuts Not Reportable 10/21/21 16:45 Smudge Cells Not Reportable 10/21/21 16:45 Toxic Granulation 2+ 10/21/21 16:45 Toxic Vacuolation Not Reportable 10/21/21 16:45 Dohle Bodies Not Reportable 10/21/21 16:45 Pelger-Huet Anomaly Not Reportable 10/21/21 16:45 Marlene Rods Not Reportable 10/21/21 16:45 Platelet Estimate Consistent w auto 10/21/21 16:45 Clumped Platelets Not Reportable 10/21/21 16:45 Plt Clumps, EDTA Not Reportable 10/21/21 16:45 Large Platelets Not Reportable 10/21/21 16:45 Giant Platelets Not Reportable 10/21/21 16:45 Platelet Satelliting Not Reportable 10/21/21 16:45 Plt Morphology Comment Not Reportable 10/21/21 16:45 RBC Morphology Normal 10/21/21 16:45 Dimorphic RBCs Not Reportable 10/21/21 16:45 Polychromasia Not Reportable 10/21/21 16:45 Hypochromasia Not Reportable 10/21/21 16:45 Poikilocytosis Not Reportable 10/21/21 16:45 Anisocytosis Not Reportable 10/21/21 16:45 Microcytosis Not Reportable 10/21/21 16:45 Macrocytosis Not Reportable 10/21/21 16:45 Spherocytes Not Reportable 10/21/21 16:45 Pappenheimer Bodies Not Reportable 10/21/21 16:45 Sickle Cells Not Reportable 10/21/21 16:45 Target Cells Not Reportable 10/21/21 16:45 Tear Drop Cells Not Reportable 10/21/21 16:45 Ovalocytes Not Reportable 10/21/21 16:45 Helmet Cells Not Reportable 10/21/21 16:45 [place] Bodies Not Reportable 10/21/21 16:45 [place] Rings Not Reportable 10/21/21 16:45 [place] Cells Not Reportable 10/21/21 16:45 Bite Cells Not Reportable 10/21/21 16:45 Crenated Cell Not Reportable 10/21/21 16:45 Elliptocytes Not Reportable 10/21/21 16:45 Acanthocytes (Spur) Not Reportable 10/21/21 16:45 Rouleaux Not Reportable 10/21/21 16:45 Hemoglobin C Crystals Not Reportable 10/21/21 16:45 Schistocytes Not Reportable 10/21/21 16:45 Malaria parasites Not Reportable 10/21/21 16:45 Flaco Bodies Not Reportable 10/21/21 16:45 Hem Pathologist Commnt No 10/21/21 16:45 PT 19.0 Sec. (12.2-14.9) H 10/14/21 04:05 INR 1.41 (0.87-1.13) H 10/14/21 04:05 APTT 33.9 Sec. (24.2-36.6) 10/14/21 04:05 D-Dimer > 40630 ng/mlDDU (0-234) H 10/09/21 08:45 ABG pH 7.509 pH Units (7.350-7.450) H 10/21/21 09:05 ABG pCO2 33.7 mm Hg 10/21/21 09:05 ABG pO2 60.3 mm Hg (80.0-90.0) L 10/21/21 09:05 ABG HCO3 26.2 mmol/L (20.0-26.0) H 10/21/21 09:05 ABG O2 Saturation 97.5 % (95.0-99.0) 10/21/21 09:05 ABG O2 Content 9.0 (0.0-44) 10/21/21 09:05 ABG Base Excess 3.0 mmol/L (-2.0-3.0) 10/21/21 09:05 ABG Hemoglobin 6.7 gm/dl (12.0-16.0) L 10/21/21 09:05 ABG Carboxyhemoglobin 1.8 % (0.0-5.0) 10/21/21 09:05 ABG Methemoglobin 0.4 % (0.0-1.5) 10/21/21 09:05 Oxyhemoglobin 95.3 % (95.0-99.0) 10/21/21 09:05 FiO2 28 % 10/21/21 09:05 Sodium 135 mmol/L (137-145) L 10/26/21 04:18 Potassium 4.3 mmol/L (3.6-5.0) 10/26/21 04:18 Chloride 101.3 mmol/L (98-107) 10/26/21 04:18 Carbon Dioxide 20 mmol/L (22-30) L 10/26/21 04:18 Anion Gap 18 mmol/L 10/26/21 04:18 BUN 26 mg/dL (7-17) H 10/26/21 04:18 Creatinine 0.9 mg/dL (0.6-1.2) 10/26/21 04:18 Estimated GFR > 60 ml/min 10/26/21 04:18 BUN/Creatinine Ratio 29 % 10/26/21 04:18 Glucose 101 mg/dL (65-100) H 10/26/21 04:18 POC Glucose 97 mg/dL (70-105) 10/25/21 23:25 Lactic Acid 1.80 mmol/L (0.7-2.0) 10/10/21 04:10 Calcium 8.2 mg/dL (8.4-10.2) L 10/26/21 04:18 Phosphorus 4.20 mg/dL (2.5-4.5) 10/26/21 04:18 Magnesium 2.00 mg/dL (1.7-2.3) 10/26/21 04:18 Ferritin 751.9 ng/mL (10.0-200.0) H 10/09/21 05:31 Total Bilirubin 0.20 mg/dL (0.1-1.2) 10/26/21 04:18 AST 71 units/L (5-40) H 10/26/21 04:18 ALT 91 units/L (7-56) H 10/26/21 04:18 Alkaline Phosphatase 97 units/L (35-129) 10/26/21 04:18 Lactate Dehydrogenase 472 units/L (91-180) H 10/09/21 05:31 Total Creatine Kinase 45 units/L (30-135) 10/13/21 04:05 C-Reactive Protein 15.90 mg/dL (0.00-1.30) H 10/09/21 05:31 Total Protein 6.8 g/dL (6.3-8.2) 10/26/21 04:18 Albumin 2.3 g/dL (3.9-5) L 10/26/21 04:18 Albumin/Globulin Ratio 0.5 % 10/26/21 04:18 Triglycerides 196 mg/dL (2-149) H 10/26/21 04:18 Procalcitonin 12.98 ng/mL (<0.15) 10/09/21 05:31 Urine Color Yellow (Yellow) 10/18/21 11:40 Urine Turbidity Clear (Clear) 10/18/21 11:40 Urine pH 6.0 (5.0-7.0) 10/18/21 11:40 Ur Specific [place] 1.015 (1.003-1.030) 10/18/21 11:40 Urine Protein 30 mg/dl mg/dL (Negative) 10/18/21 11:40 Urine Glucose (UA) Trace mg/dL (Negative) 10/18/21 11:40 Urine Ketones Negative mg/dL (Negative) 10/18/21 11:40 Urine Blood Moderate (Negative) A 10/18/21 11:40 Urine Nitrite Negative (Negative) 10/18/21 11:40 Ur Reducing Substances Not Reportable 09/24/21 14:49 Urine Bilirubin Negative (Negative) 10/18/21 11:40 Urine Ictotest Not Reportable 09/24/21 14:49 Urine Urobilinogen 0.0 mg/dL (<2.0) 10/18/21 11:40 Ur Leukocyte Esterase Negative (Negative) 10/18/21 11:40 Urine WBC (Auto) 50.0 /HPF (0.0-6.0) H 10/18/21 11:40 Urine RBC (Auto) > 182.0 /HPF (0.0-6.0) 10/18/21 11:40 U Epithel Cells (Auto) 2.0 /HPF (0-13.0) 10/18/21 11:40 Urine Bacteria (Auto) 2+ /HPF (Negative) 10/18/21 11:40 Urine WBC Clumps 1+ /HPF 10/18/21 11:40 Hyaline Casts Few /LPF 10/18/21 11:40 Granular Casts Few /LPF 10/18/21 11:40 Urine Mucus 3+ /HPF 10/18/21 11:40 Urine HCG, Qual Negative (Negative) 09/24/21 14:49 Coronavirus (PCR) Negative (Negative) 10/09/21 10:15 Blood Type A POSITIVE 10/17/21 12:50 Antibody Screen Negative 10/17/21 12:50 Crossmatch See Detail 10/17/21 12:50 [place]/IV: Voiding Method External Female Catheter Active Medications - Current Medications Current Medications: Generic Name Dose Route Start Last Admin Trade Name Freq PRN Reason Stop Dose Admin Acetaminophen 650 mg 10/08/21 21:38 Acetaminophen 325 Mg Tab PO Q6H PRN Pain, Mild (1-3) Albuterol 2.5 mg 09/24/21 18:07 Albuterol 2.5 Mg/3 Ml Nebu IH Q4HRT PRN Shortness Of Breath Dextrose 0 ml 10/03/21 12:37 Dextrose 10% *Hypoglycemia IV PRN PRN Hypoglycemia Diphenhydramine HCl 25 mg 10/04/21 15:14 10/25/21 10:05 Diphenhydramine 50 Mg/Ml Vial IV 25 mg Q6H PRN Administration Itching Haloperidol Lactate 5 mg 10/25/21 13:30 10/26/21 02:37 Haloperidol Lactate 5 Mg/1 Ml Inj IV 10/27/21 13:29 5 mg Q6H PRN Administration Agitation Heparin Sodium (Porcine) 5,000 unit 10/16/21 10:00 10/25/21 21:15 Heparin 5,000 Unit/1 Ml Vial SUB-Q 5,000 unit Q12HR JAZ Administration Hydromorphone HCl 0.5 mg 10/18/21 15:39 10/26/21 02:37 Hydromorphone 1 Mg/1 Ml Inj IV 0.5 mg Q3H PRN Administration Pain, Moderate (4-6) Hydrophilic Ointment 1 applic 10/08/21 21:00 10/24/21 12:50 Lip Therapy Vaseline TP 1 applic Q2HR PRN Administration Dry Lips Amino Acids/Electrolytes/Dextrose 1,999.92 mls @ 83.33 mls/hr 10/25/21 20:00 10/25/21 20:10 Tpn Adult IV 10/26/21 19:59 83.33 mls/hr DAILY@2000 [facility] Administration Protocol Insulin Glargine 5 units 10/13/21 10:00 10/25/21 09:31 Insulin Glargine 100 Units/Ml SUB-Q 5 units QDAY JAZ Administration Insulin Human Regular 0 units 10/10/21 00:00 10/26/21 06:09 Insulin Regular, Human 100 Units/1 Ml SUB-Q Not Given Q6HR [facility] Protocol Labetalol HCl 10 mg 10/01/21 08:31 10/20/21 09:56 Labetalol 20 Mg/4 Ml Inj IV 10 mg Q6H PRN Administration Hypertension Lorazepam 1 mg 10/21/21 12:48 10/26/21 06:22 Lorazepam 2 Mg/Ml Vial IV 1 mg Q4H PRN Administration Anxiety Multi-Ingred Cream/Lotion/Oil/Oint 1 applic 10/08/21 21:00 Mineral Oil/Petrolatum, White Ophth Oint 3.5 Gm OU Q4HR PRN Dry Eye(s) Naloxone HCl 0.1 mg 10/03/21 14:00 Naloxone 0.4 Mg/1 Ml Inj IV Q2MIN PRN Res Rate </= 8 or 02 SAT < 92% Ondansetron HCl 4 mg 09/24/21 18:07 10/25/21 18:42 Ondansetron 4 Mg/2 Ml Inj IV 4 mg Q8H PRN Administration Nausea And Vomiting Pantoprazole Sodium 40 mg 10/20/21 17:00 10/25/21 09:26 Pantoprazole 40 Mg Inj IV 40 mg QDAY JAZ Administration Phenol 1 spray 10/02/21 13:00 10/03/21 10:23 Phenol 1.4% 177 Ml Bottle MM 1 spray PRN PRN Administration Sore Throat Scopolamine 1 each 10/04/21 10:00 10/25/21 09:28 Scopolamine Transdermal Patch 72 Hr TD 1 each Q3D JAZ Administration Sodium Chloride 10 ml 09/24/21 22:00 10/25/21 21:16 Sodium Chloride 0.9% 10 Ml Flush Syringe IV 10 ml BID JAZ Administration Sodium Chloride 10 ml 09/24/21 18:07 09/25/21 08:34 Sodium Chloride 0.9% 10 Ml Flush Syringe IV 10 ml PRN PRN Administration LINE FLUSH Nutrition/Malnutrition Assess - Dietary Evaluation Nutrition/Malnutrition Findings: Nutrition Notes Start: 09/25/21 15:31 Freq: Status: Active Protocol: Document 10/25/21 10:01 BIN (Rec: 10/25/21 10:48 BIN [email or web address]) Nutrition Notes Initial or Follow up Reassessment Current Diagnosis Acute Kidney Injury,Sepsis, Respiratory Failure, Malnutrition Other Pertinent Diagnosis s/p appendectomy, s/p exp lap with colostomy, anemia Current Diet CPN at 83.33 ml/hr Labs/Tests 10/25: Na 134, CO2 19, BUN 26, Glu 107, Ca 8.2. Pertinent Medications 10/25: Insulin, others nutritionally unremarkable. Height 5 ft 7 in Weight 109 kg [place] Body Weight (kg) 61.36 BMI 37.6 Weight change and time frame No body weight change reported in 1 day. Weight Status Obese Subjective/Other Information Day 23 TPN. Pt is now on room air and exercising with spirometer, according to Physical Assessment History notes and Progress notes. Pt is tolerating ice chips and sips of water, according to Progress notes. Percent of energy/protein needs met: 86% Kcal; 98% AA. Burn Absent Trauma Absent GI Symptoms Other Food Allergy No Skin Integrity/Comment Surgical wound Current % PO Other Minimum of two criteria No #1 Nutrition Diagnosis Altered GI function Diagnosis Progress(for reassessment Continues documentation) Is patient on ventilator? No Is Patient Ambulatory and/or Out of Bed No REE-([facility]-confined to bed) 2200.920 Kcal/Kg value to use for calculation 16 Approximate Energy Requirements Using 1744 kcal/Kg Calculation Used for Recommendations Kcal/kg Additional Notes Protein: 2 g/Kg; 123 g/day IBW . Fluids: 1 mL/Kcal, or as per MD. Nutrition Intervention Nutrition Support: Continue CPN at 83.33ml/hr: MVI. Osmolality: 1595. Na 175 mEq. 10/90 % Cl to CO2 ratio. Kcal 1,500 Protein (gm) 120 Carbohydrates (gm) 300 Fat (gm) 0 Fluid (mL) 2,000 Fiber (gm) 0 % RDI: 86% Kcal; 98% AA. Goal #1 Provide at least 75% of energy /protein needs through Parenteral Feeding during LOS. Goal #2 Maintain body weight within +/ -3% of admission body weight during LOS. Follow-Up By: 10/26/21 Additional Comments Continue monitoring CPN tolerance and BM. CMP, Phos, Mg and TG labs ordered.
[2021-10-25] MEDS: HALOPERIDOL LACTATE 5 MG/1 ML INJ IV PRN (18:42)
[2021-10-25] MEDS: ONDANSETRON 4 MG/2 ML INJ IV PRN (18:42)
[2021-10-25] MEDS ORDERED: TOTAL PARENTERAL NUTRITION 1,999.92 ML IV SCH (20:00)
[2021-10-25] MEDS: LORazepam 2 MG/ML VIAL IV PRN (20:09)
[2021-10-26] MEDS: LORazepam 2 MG/ML VIAL IV PRN ×4 (00:04→19:47)
[2021-10-26] MEDS: INSULIN REGULAR, HUMAN 100 UNITS/1 ML SUB-Q SCH ×4 (00:34→18:45)
[2021-10-26] MEDS: HYDROmorphone 1 MG/1 ML INJ IV PRN ×4 (02:37→19:46)
[2021-10-26] MEDS: HALOPERIDOL LACTATE 5 MG/1 ML INJ IV PRN ×2 (02:37→22:43)
[2021-10-26 04:42] LABS: Hematocrit 21.8 % (30.3-42.9); Hemoglobin 7.4 gm/dl (10.1-14.3); Mean Corpuscular HGB Conc 34 % (30-34); Mean Corpuscular Volume 87 fl (79-97); Platelet Count 495 K/mm3 (140-440)
[2021-10-26 05:08] LABS: Alanine Aminotransferase 91 units/L (7-56); Albumin 2.3 g/dL (3.9-5); BUN/Creatinine Ratio 29; Blood Urea Nitrogen 26 mg/dL (7-17); Calcium 8.2 mg/dL (8.4-10.2); Hemolysis Index 4
[2021-10-26] MEDS: PANTOPRAZOLE 40 MG INJ IV SCH (09:25)
[2021-10-26] MEDS: HEPARIN 5,000 UNIT/1 ML VIAL SUB-Q SCH ×2 (09:25→21:04)
[2021-10-26] MEDS: INSULIN GLARGINE 100 UNITS/ML SUB-Q SCH (09:25)
--- NOTE | 2021-10-26 10:52 | Progress Note ---
Assessment and Plan Cultures: 09/24/2021 blood culture: No growth 09/30/2021 YURIDIA drain wound culture: VRE - Enterococcus faecium 10/08/2021 blood culture: No growth 10/11/2021 intra-abdominal surgical culture: Jo [place] albicans, MSSA, Stenotrophomonas 10/12/2021 tracheal culture: No growth 10/18/2021 blood culture: no growth 10/18/2021 urine culture: no growth 10/18/2021 sputum culture: Stenotrophomonas A/P: 31-year-old female past medical history obesity, nephrolithiasis admitted with: #Sepsis: Secondary to intra-abdominal infection. 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 pna, fluid overload more likely. Extubated 08/20/2021. Cultures growing Stenotrophomonas. #Leukocytosis, reactive thrombocytosis #BRYANNA: resolved. #Obesity Recs: -monitor off abx d/w Dr. Huddleston. Mónica Swan MD, FACP, [facility] O: [phone] F: [phone] C: [phone] Subjective Date of service: 10/26/21 Principal diagnosis: Septic shock; AHRF; PNA; BRYANNA; s/p appendectomy; VRE infection; Peritonitis Interval history: No fever, low grade temps +. Remains off oxygen. Remains with NG tube to suction. On parenteral nutrition. Denies any specific new complaints. Objective - Exam Narrative Exam: Physical Exam: Constitutional: Awake, alert, no distress Head, Ears, Nose: Normocephalic, atraumatic. External ears, nose normal Eyes: Conjunctivae/corneas clear. No icterus. No ptosis. Neck: supple Cardiovascular: S1, S2 + Respiratory: AE fair bilaterally GI: Soft, dressing, drain present, colostomy present Musculoskeletal: Obese, edema present Skin: No rash or abscess Hem/Lymphatic: No palpable cervical or supraclavicular nodes. No lymphangitis Psych: calm Neurological: Awake, alert, answering questions - Constitutional Vitals: Vital Signs Temp Pulse Resp BP Pulse Ox 100.2 F H 110 H 29 H 132/88 98 10/26/21 08:09 10/26/21 07:30 10/26/21 07:30 10/26/21 07:30 10/26/21 08:50 Temperature -Last 24 Hours Temperature 100.2 F Temperature 99.1 F Temperature 99.8 F Temperature 98.4 F Temperature 99.4 F Temperature 98.9 F Temperature 99.1 F - Labs CBC & Chem 7: 10/26/21 04:18 10/26/21 04:18 Labs: Abnormal lab results 10/25/21 10/25/21 10/26/21 Range/Units 11:29 17:10 04:18 WBC 14.5 H (4.5-11.0) K/mm3 RBC 2.50 L (3.65-5.03) M/mm3 Hgb 7.4 L (10.1-14.3) gm/dl Hct 21.8 L (30.3-42.9) % RDW 17.0 H (13.2-15.2) % Plt Count 495 H (140-440) K/mm3 Sodium (137-145) mmol/L Carbon Dioxide (22-30) mmol/L BUN (7-17) mg/dL Glucose (65-100) mg/dL POC Glucose 120 H 121 H (70-105) mg/dL Calcium (8.4-10.2) mg/dL AST (5-40) units/L ALT (7-56) units/L Albumin (3.9-5) g/dL Triglycerides (2-149) mg/dL 10/26/21 Range/Units 04:18 WBC (4.5-11.0) K/mm3 RBC (3.65-5.03) M/mm3 Hgb (10.1-14.3) gm/dl Hct (30.3-42.9) % RDW (13.2-15.2) % Plt Count (140-440) K/mm3 Sodium 135 L (137-145) mmol/L Carbon Dioxide 20 L (22-30) mmol/L BUN 26 H (7-17) mg/dL Glucose 101 H (65-100) mg/dL POC Glucose (70-105) mg/dL Calcium 8.2 L (8.4-10.2) mg/dL AST 71 H (5-40) units/L ALT 91 H (7-56) units/L Albumin 2.3 L (3.9-5) g/dL Triglycerides 196 H (2-149) mg/dL
--- NOTE | 2021-10-26 11:49 | Progress Note ---
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 Open left hemicolectomy and partial omentectomy Peritonitis Leukocytosis Diverticulitis with absces Acute renal failure Acute blood loss anemia Gross Hematuria - await PICC line (TPN) - discontinue RIJ CVL post PICC - continue TPN - BIPAP prn re: risk of gastric insufflation - wound care per RN / WCN under surgeons direction - continue care as below otherwise; - continue to wean supplemental oxygen for target O2 sat's > 90% acutely - aspiration precautions - prn bronchodilators with pulmonary hygiene per RT - avoid nephrotoxins, renally dose all medications - continue accuchecks with glycemic control per SSI (While critically ill target blood glucose of 140-180 mg/dL; avoid hypoglycemia) - avoid benzodiazepine's, reduce the possibility of delirium - AB's per ID rec's (s/p Diflucan & Flagyl) - Maintenance of sleep-wake cycle, avoid delirium - continue enteral nutritional support at goal rate as tolerated - G.I. & VTE prophylaxis - PT/OT/ROM exercises - continue mobility protocols for pressure ulcer prophylaxis - Monitor hemodynamics closely - continue other care per attending / other consultants - discharge planning ongoing concurrently COVID SPECIFIC INTERVENTIONS - COVID-19 PCR negative .... Re-evaluate in am & prn ... 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 s/p appendectomy; VRE infection; Open left hemicolectomy and partial omentectomy; Peritonitis; Diverticulitis with abscess;' BRYANNA; ABLA; Gross Hematuria Seen and examined at bedside; 24hour events reviewed; nursing and respiratory care staff consulted; no adverse overnight events reported to me; resting in bed; no new issues respiratory-garcia; remains off Precedex; off vasopressors; now on room air; no N/V/F/C Objective Vital Signs - 12hr 10/26/21 10/26/21 10/26/21 00:00 00:06 00:30 Temperature Pulse Rate 105 H 103 H 106 H Respiratory 29 H 27 H 29 H Rate Blood Pressure 130/77 130/77 130/77 O2 Sat by Pulse 97 98 Oximetry 10/26/21 10/26/21 10/26/21 01:00 01:30 01:37 Temperature Pulse Rate 108 H 113 H Respiratory 20 28 H Rate Blood Pressure 132/73 132/73 O2 Sat by Pulse 95 98 97 Oximetry 10/26/21 10/26/21 10/26/21 02:00 02:30 03:00 Temperature Pulse Rate 114 H 108 H 106 H Respiratory 22 22 26 H Rate Blood Pressure 142/90 142/90 121/68 O2 Sat by Pulse 98 90 Oximetry 10/26/21 10/26/21 10/26/21 03:30 04:00 04:22 Temperature 99.1 F Pulse Rate 103 H 104 H Respiratory 29 H 26 H Rate Blood Pressure 121/68 117/67 O2 Sat by Pulse 85 Oximetry 10/26/21 10/26/21 10/26/21 04:30 05:00 05:30 Temperature Pulse Rate 101 H 101 H 119 H Respiratory 22 25 H 29 H Rate Blood Pressure 117/67 135/80 135/80 O2 Sat by Pulse Oximetry 10/26/21 10/26/21 10/26/21 06:00 06:30 07:00 Temperature Pulse Rate 113 H 107 H 109 H Respiratory 21 29 H 29 H Rate Blood Pressure 142/95 142/95 132/88 O2 Sat by Pulse 98 97 Oximetry 10/26/21 10/26/21 10/26/21 07:30 08:00 08:09 Temperature 100.2 F H Pulse Rate 110 H 115 H Respiratory 29 H 23 Rate Blood Pressure 132/88 132/88 O2 Sat by Pulse 96 Oximetry 10/26/21 10/26/21 10/26/21 08:30 08:50 09:00 Temperature Pulse Rate 106 H 115 H Respiratory 27 H Rate Blood Pressure 141/90 139/89 O2 Sat by Pulse 98 Oximetry 10/26/21 10/26/21 10/26/21 09:30 10:00 10:30 Temperature Pulse Rate 110 H 111 H 98 H Respiratory 20 20 27 H Rate Blood Pressure 145/89 146/87 156/87 O2 Sat by Pulse 99 Oximetry 10/26/21 11:00 Temperature Pulse Rate 101 H Respiratory 25 H Rate Blood Pressure 134/77 O2 Sat by Pulse 95 Oximetry Constitutional: no acute distress, other (young obese female with mildly increased respiratory effort at rest) Eyes: non-icteric ENT: oropharynx moist Neck: supple, other (large circumference; RIJ CVL) Effort: mildly labored Ascultation: Bilateral: diminished breath sounds, rhonchi Percussion: Bilateral: not dull Cardiovascular: regular rate and rhythm, other (S1,S2) Gastrointestinal: hypoactive bowel sounds, soft, tender (mild), other (YURIDIA drains, colostomy) Integumentary: normal, other (post-op changes) Extremities: no cyanosis, pulses normal, no ischemia or petechiae, edema Neurologic: non-focal exam, pupils equal and round, CN II-XII normal, motor strength normal and Psychiatric: mood appropriate, affect normal CBC and BMP: 10/27/21 10:14 10/27/21 04:00 ABG, PT/INR, D-dimer: ABG ABG pH 7.509 pH Units (7.350-7.450) H 10/21/21 09:05 ABG pCO2 33.7 mm Hg 10/21/21 09:05 ABG pO2 60.3 mm Hg (80.0-90.0) L 10/21/21 09:05 ABG O2 Saturation 97.5 % (95.0-99.0) 10/21/21 09:05 PT/INR, D-dimer PT 19.0 Sec. (12.2-14.9) H 10/14/21 04:05 INR 1.41 (0.87-1.13) H 10/14/21 04:05 D-Dimer > 10159 ng/mlDDU (0-234) H 10/09/21 08:45 Abnormal lab findings: Abnormal Labs 09/24/21 09/24/21 09/24/21 14:49 14:58 14:58 WBC 32.4 H RBC Hgb Hct MCH MCHC RDW Plt Count 535 H Lymph % (Auto) Ross % (Auto) Lymph # (Auto) Ross # (Auto) Seg Neutrophils % Seg Neuts % (Manual) 82.0 H Lymphocytes % (Manual) 2.0 L Monocytes % (Manual) Nucleated RBC % Seg Neutrophils # Seg Neutrophils # Man 26.6 H Lymphocytes # (Manual) 0.6 L Monocytes # (Manual) 1.6 H PT INR D-Dimer ABG pH ABG pO2 ABG HCO3 ABG O2 Saturation ABG Base Excess ABG Hemoglobin Oxyhemoglobin Sodium 134 L Potassium 3.5 L Chloride 97.6 L Carbon Dioxide BUN Creatinine Glucose 119 H POC Glucose Lactic Acid Calcium Phosphorus Magnesium Ferritin AST ALT Lactate Dehydrogenase Total Creatine Kinase C-Reactive Protein Total Protein 6.1 L Albumin 3.3 L Triglycerides Urine Blood Urine WBC (Auto) U Epithel Cells (Auto) 18.0 H Crossmatch 09/25/21 09/25/21 09/26/21 05:47 05:47 04:20 WBC 25.4 H 23.6 H RBC 3.54 L Hgb Hct MCH MCHC RDW Plt Count 466 H 486 H Lymph % (Auto) Ross % (Auto) Lymph # (Auto) Ross # (Auto) Seg Neutrophils % Seg Neuts % (Manual) 93.0 H 86.0 H Lymphocytes % (Manual) 4.0 L 3.0 L Monocytes % (Manual) Nucleated RBC % Seg Neutrophils # Seg Neutrophils # Man 23.6 H 20.3 H Lymphocytes # (Manual) 1.0 L 0.7 L Monocytes # (Manual) 0.9 H PT INR D-Dimer ABG pH ABG pO2 ABG HCO3 ABG O2 Saturation ABG Base Excess ABG Hemoglobin Oxyhemoglobin Sodium 136 L Potassium 3.0 L Chloride Carbon Dioxide 21 L BUN Creatinine Glucose POC Glucose Lactic Acid Calcium 7.8 L Phosphorus Magnesium Ferritin AST ALT Lactate Dehydrogenase Total Creatine Kinase C-Reactive Protein Total Protein Albumin Triglycerides Urine Blood Urine WBC (Auto) U Epithel Cells (Auto) Crossmatch 09/26/21 09/27/21 09/27/21 04:20 08:28 08:28 WBC 20.6 H RBC 3.42 L Hgb 9.9 L Hct 29.5 L D MCH MCHC RDW Plt Count Lymph % (Auto) Ross % (Auto) Lymph # (Auto) Ross # (Auto) Seg Neutrophils % Seg Neuts % (Manual) 94.1 H Lymphocytes % (Manual) 1.0 L Monocytes % (Manual) Nucleated RBC % Seg Neutrophils # Seg Neutrophils # Man 19.4 H Lymphocytes # (Manual) 0.2 L Monocytes # (Manual) PT INR D-Dimer ABG pH ABG pO2 ABG HCO3 ABG O2 Saturation ABG Base Excess ABG Hemoglobin Oxyhemoglobin Sodium Potassium 3.2 L Chloride Carbon Dioxide 20 L BUN Creatinine Glucose 137 H POC Glucose Lactic Acid Calcium 8.3 L 8.2 L Phosphorus Magnesium Ferritin AST ALT Lactate Dehydrogenase Total Creatine Kinase C-Reactive Protein Total Protein Albumin Triglycerides Urine Blood Urine WBC (Auto) U Epithel Cells (Auto) Crossmatch 09/28/21 09/28/21 09/29/21 04:55 15:35 07:02 WBC 15.1 H 16.5 H RBC 3.34 L 3.20 L Hgb 9.3 L 9.1 L Hct 28.7 L 27.3 L MCH MCHC RDW 15.3 H Plt Count 444 H 469 H Lymph % (Auto) Ross % (Auto) Lymph # (Auto) Ross # (Auto) 0.9 H Seg Neutrophils % 89.3 H Seg Neuts % (Manual) 88.0 H 80.0 H Lymphocytes % (Manual) 9.0 L 8.0 L Monocytes % (Manual) Nucleated RBC % Seg Neutrophils # 14.0 H Seg Neutrophils # Man 13.3 H 13.2 H Lymphocytes # (Manual) Monocytes # (Manual) PT INR D-Dimer ABG pH ABG pO2 ABG HCO3 ABG O2 Saturation ABG Base Excess ABG Hemoglobin Oxyhemoglobin Sodium Potassium 3.3 L Chloride 109.4 H Carbon Dioxide 20 L BUN Creatinine 0.5 L Glucose POC Glucose Lactic Acid Calcium 7.9 L Phosphorus Magnesium Ferritin AST ALT Lactate Dehydrogenase Total Creatine Kinase C-Reactive Protein Total Protein Albumin Triglycerides Urine Blood Urine WBC (Auto) U Epithel Cells (Auto) Crossmatch 09/30/21 09/30/21 10/01/21 05:40 05:40 07:49 WBC 17.4 H 17.9 H RBC 3.37 L 3.32 L Hgb 9.2 L 9.3 L Hct 28.4 L 28.3 L MCH 27 L MCHC RDW 15.4 H 15.5 H Plt Count 530 H 604 H Lymph % (Auto) Ross % (Auto) Lymph # (Auto) Ross # (Auto) Seg Neutrophils % Seg Neuts % (Manual) 91.0 H 72.0 H Lymphocytes % (Manual) 9.0 L 1.0 L Monocytes % (Manual) 8.0 H Nucleated RBC % 1.0 H Seg Neutrophils # Seg Neutrophils # Man 15.8 H 12.9 H Lymphocytes # (Manual) 0.2 L Monocytes # (Manual) 1.4 H PT INR D-Dimer ABG pH ABG pO2 ABG HCO3 ABG O2 Saturation ABG Base Excess ABG Hemoglobin Oxyhemoglobin Sodium Potassium 3.5 L Chloride Carbon Dioxide 21 L BUN Creatinine 0.5 L Glucose POC Glucose Lactic Acid Calcium 8.0 L Phosphorus Magnesium Ferritin AST ALT Lactate Dehydrogenase Total Creatine Kinase C-Reactive Protein Total Protein Albumin Triglycerides Urine Blood Urine WBC (Auto) U Epithel Cells (Auto) Crossmatch 10/01/21 10/01/21 10/02/21 07:49 10:45 05:41 WBC 23.2 H RBC 2.90 L Hgb 7.9 L Hct 24.8 L MCH 27 L MCHC RDW 15.3 H Plt Count 621 H Lymph % (Auto) Ross % (Auto) Lymph # (Auto) Ross # (Auto) Seg Neutrophils % Seg Neuts % (Manual) 88.0 H Lymphocytes % (Manual) 2.0 L Monocytes % (Manual) Nucleated RBC % Seg Neutrophils # Seg Neutrophils # Man 20.4 H Lymphocytes # (Manual) 0.5 L Monocytes # (Manual) 1.4 H PT INR D-Dimer ABG pH ABG pO2 ABG HCO3 ABG O2 Saturation ABG Base Excess ABG Hemoglobin Oxyhemoglobin Sodium Potassium Chloride Carbon Dioxide 20 L BUN Creatinine 0.5 L Glucose POC Glucose Lactic Acid Calcium 7.6 L Phosphorus Magnesium Ferritin AST ALT Lactate Dehydrogenase Total Creatine Kinase C-Reactive Protein Total Protein Albumin Triglycerides Urine Blood Urine WBC (Auto) U Epithel Cells (Auto) Crossmatch See Detail 10/02/21 10/02/21 10/02/21 05:41 07:47 11:10 WBC RBC Hgb Hct MCH MCHC RDW Plt Count Lymph % (Auto) Ross % (Auto) Lymph # (Auto) Ross # (Auto) Seg Neutrophils % Seg Neuts % (Manual) Lymphocytes % (Manual) Monocytes % (Manual) Nucleated RBC % Seg Neutrophils # Seg Neutrophils # Man Lymphocytes # (Manual) Monocytes # (Manual) PT INR D-Dimer ABG pH ABG pO2 ABG HCO3 ABG O2 Saturation ABG Base Excess ABG Hemoglobin Oxyhemoglobin Sodium Potassium Chloride Carbon Dioxide BUN Creatinine Glucose 130 H POC Glucose 145 H 120 H Lactic Acid Calcium 6.9 L Phosphorus Magnesium Ferritin AST ALT Lactate Dehydrogenase Total Creatine Kinase C-Reactive Protein Total Protein Albumin Triglycerides Urine Blood Urine WBC (Auto) U Epithel Cells (Auto) Crossmatch 10/02/21 10/03/21 10/03/21 16:14 04:55 04:55 WBC 26.1 H RBC 2.31 L Hgb 6.3 L Hct 19.8 L* MCH MCHC RDW 15.9 H Plt Count 598 H Lymph % (Auto) Ross % (Auto) Lymph # (Auto) Ross # (Auto) Seg Neutrophils % Seg Neuts % (Manual) 82.0 H Lymphocytes % (Manual) 1.0 L Monocytes % (Manual) 10.0 H Nucleated RBC % Seg Neutrophils # Seg Neutrophils # Man 21.4 H Lymphocytes # (Manual) 0.3 L Monocytes # (Manual) 2.6 H PT INR D-Dimer ABG pH ABG pO2 ABG HCO3 ABG O2 Saturation ABG Base Excess ABG Hemoglobin Oxyhemoglobin Sodium Potassium Chloride Carbon Dioxide BUN 22 H Creatinine 1.7 H D Glucose 145 H POC Glucose 109 H Lactic Acid Calcium 6.4 L Phosphorus Magnesium 2.40 H Ferritin AST ALT Lactate Dehydrogenase Total Creatine Kinase C-Reactive Protein Total Protein 4.2 L Albumin 1.6 L Triglycerides Urine Blood Urine WBC (Auto) U Epithel Cells (Auto) Crossmatch 10/03/21 10/03/21 10/03/21 07:15 11:49 17:06 WBC RBC Hgb Hct MCH MCHC RDW Plt Count Lymph % (Auto) Ross % (Auto) Lymph # (Auto) Ross # (Auto) Seg Neutrophils % Seg Neuts % (Manual) Lymphocytes % (Manual) Monocytes % (Manual) Nucleated RBC % Seg Neutrophils # Seg Neutrophils # Man Lymphocytes # (Manual) Monocytes # (Manual) PT INR D-Dimer ABG pH ABG pO2 ABG HCO3 ABG O2 Saturation ABG Base Excess ABG Hemoglobin Oxyhemoglobin Sodium Potassium Chloride Carbon Dioxide BUN Creatinine Glucose POC Glucose 162 H 171 H 174 H Lactic Acid Calcium Phosphorus Magnesium Ferritin AST ALT Lactate Dehydrogenase Total Creatine Kinase C-Reactive Protein Total Protein Albumin Triglycerides Urine Blood Urine WBC (Auto) U Epithel Cells (Auto) Crossmatch 10/03/21 10/04/21 10/04/21 23:31 04:44 04:44 WBC 26.4 H RBC 2.33 L Hgb 6.6 L Hct 19.4 L* MCH MCHC RDW 16.1 H Plt Count 602 H Lymph % (Auto) Ross % (Auto) Lymph # (Auto) Ross # (Auto) Seg Neutrophils % Seg Neuts % (Manual) 80.0 H Lymphocytes % (Manual) 5.0 L Monocytes % (Manual) Nucleated RBC % Seg Neutrophils # Seg Neutrophils # Man 21.1 H Lymphocytes # (Manual) Monocytes # (Manual) 1.8 H PT INR D-Dimer ABG pH ABG pO2 ABG HCO3 ABG O2 Saturation ABG Base Excess ABG Hemoglobin Oxyhemoglobin Sodium 135 L Potassium 3.4 L Chloride Carbon Dioxide 21 L BUN 28 H Creatinine 2.0 H Glucose 171 H POC Glucose 179 H Lactic Acid Calcium 6.7 L Phosphorus 1.30 L D Magnesium 2.40 H Ferritin AST ALT Lactate Dehydrogenase Total Creatine Kinase C-Reactive Protein Total Protein Albumin Triglycerides Urine Blood Urine WBC (Auto) U Epithel Cells (Auto) Crossmatch 10/04/21 10/04/21 10/04/21 05:25 12:01 13:30 WBC RBC Hgb Hct MCH MCHC RDW Plt Count Lymph % (Auto) Ross % (Auto) Lymph # (Auto) Ross # (Auto) Seg Neutrophils % Seg Neuts % (Manual) Lymphocytes % (Manual) Monocytes % (Manual) Nucleated RBC % Seg Neutrophils # Seg Neutrophils # Man Lymphocytes # (Manual) Monocytes # (Manual) PT INR D-Dimer ABG pH ABG pO2 ABG HCO3 ABG O2 Saturation ABG Base Excess ABG Hemoglobin Oxyhemoglobin Sodium Potassium Chloride Carbon Dioxide BUN Creatinine Glucose POC Glucose 174 H 172 H Lactic Acid Calcium Phosphorus Magnesium Ferritin AST ALT Lactate Dehydrogenase Total Creatine Kinase C-Reactive Protein Total Protein Albumin Triglycerides Urine Blood Urine WBC (Auto) U Epithel Cells (Auto) Crossmatch See Detail 10/04/21 10/04/21 10/04/21 16:47 20:28 22:23 WBC RBC Hgb 8.5 L Hct 25.1 L MCH MCHC RDW Plt Count Lymph % (Auto) Ross % (Auto) Lymph # (Auto) Ross # (Auto) Seg Neutrophils % Seg Neuts % (Manual) Lymphocytes % (Manual) Monocytes % (Manual) Nucleated RBC % Seg Neutrophils # Seg Neutrophils # Man Lymphocytes # (Manual) Monocytes # (Manual) PT INR D-Dimer ABG pH ABG pO2 ABG HCO3 ABG O2 Saturation ABG Base Excess ABG Hemoglobin Oxyhemoglobin Sodium Potassium Chloride Carbon Dioxide BUN Creatinine Glucose POC Glucose 135 H 152 H Lactic Acid Calcium Phosphorus Magnesium Ferritin AST ALT Lactate Dehydrogenase Total Creatine Kinase C-Reactive Protein Total Protein Albumin Triglycerides Urine Blood Urine WBC (Auto) U Epithel Cells (Auto) Crossmatch 10/05/21 10/05/21 10/05/21 04:40 04:40 04:40 WBC 24.7 H RBC 3.02 L Hgb 8.4 L Hct 25.5 L MCH MCHC RDW 16.2 H Plt Count 644 H Lymph % (Auto) Ross % (Auto) Lymph # (Auto) Ross # (Auto) Seg Neutrophils % Seg Neuts % (Manual) 91.0 H Lymphocytes % (Manual) 7.0 L Monocytes % (Manual) Nucleated RBC % Seg Neutrophils # Seg Neutrophils # Man 22.5 H Lymphocytes # (Manual) Monocytes # (Manual) PT 17.8 H INR 1.31 H D-Dimer ABG pH ABG pO2 ABG HCO3 ABG O2 Saturation ABG Base Excess ABG Hemoglobin Oxyhemoglobin Sodium 135 L Potassium Chloride Carbon Dioxide BUN 29 H Creatinine 2.1 H Glucose 156 H POC Glucose Lactic Acid Calcium 7.6 L Phosphorus 1.90 L D Magnesium Ferritin AST ALT Lactate Dehydrogenase Total Creatine Kinase C-Reactive Protein Total Protein 5.2 L D Albumin 1.8 L Triglycerides Urine Blood Urine WBC (Auto) U Epithel Cells (Auto) Crossmatch 10/05/21 10/05/21 10/05/21 05:08 18:17 23:37 WBC RBC Hgb Hct MCH MCHC RDW Plt Count Lymph % (Auto) Ross % (Auto) Lymph # (Auto) Ross # (Auto) Seg Neutrophils % Seg Neuts % (Manual) Lymphocytes % (Manual) Monocytes % (Manual) Nucleated RBC % Seg Neutrophils # Seg Neutrophils # Man Lymphocytes # (Manual) Monocytes # (Manual) PT INR D-Dimer ABG pH ABG pO2 ABG HCO3 ABG O2 Saturation ABG Base Excess ABG Hemoglobin Oxyhemoglobin Sodium Potassium Chloride Carbon Dioxide BUN Creatinine Glucose POC Glucose 156 H 119 H 130 H Lactic Acid Calcium Phosphorus Magnesium Ferritin AST ALT Lactate Dehydrogenase Total Creatine Kinase C-Reactive Protein Total Protein Albumin Triglycerides Urine Blood Urine WBC (Auto) U Epithel Cells (Auto) Crossmatch 10/06/21 10/06/21 10/06/21 04:27 05:27 05:27 WBC 23.4 H RBC 2.84 L Hgb 7.8 L Hct 23.9 L MCH MCHC RDW 16.2 H Plt Count 712 H Lymph % (Auto) Ross % (Auto) Lymph # (Auto) Ross # (Auto) Seg Neutrophils % Seg Neuts % (Manual) Lymphocytes % (Manual) Monocytes % (Manual) Nucleated RBC % Seg Neutrophils # Seg Neutrophils # Man Lymphocytes # (Manual) Monocytes # (Manual) PT INR D-Dimer ABG pH ABG pO2 ABG HCO3 ABG O2 Saturation ABG Base Excess ABG Hemoglobin Oxyhemoglobin Sodium 134 L Potassium Chloride Carbon Dioxide 20 L BUN 28 H Creatinine 1.9 H Glucose 132 H POC Glucose 132 H Lactic Acid Calcium 7.8 L Phosphorus Magnesium Ferritin AST ALT Lactate Dehydrogenase Total Creatine Kinase 242 H C-Reactive Protein Total Protein Albumin Triglycerides Urine Blood Urine WBC (Auto) U Epithel Cells (Auto) Crossmatch 10/06/21 10/06/21 10/06/21 16:40 20:50 23:39 WBC RBC Hgb Hct MCH MCHC RDW Plt Count Lymph % (Auto) Ross % (Auto) Lymph # (Auto) Ross # (Auto) Seg Neutrophils % Seg Neuts % (Manual) Lymphocytes % (Manual) Monocytes % (Manual) Nucleated RBC % Seg Neutrophils # Seg Neutrophils # Man Lymphocytes # (Manual) Monocytes # (Manual) PT INR D-Dimer ABG pH ABG pO2 ABG HCO3 ABG O2 Saturation ABG Base Excess ABG Hemoglobin Oxyhemoglobin Sodium Potassium Chloride Carbon Dioxide BUN Creatinine Glucose POC Glucose 133 H 116 H 132 H Lactic Acid Calcium Phosphorus Magnesium Ferritin AST ALT Lactate Dehydrogenase Total Creatine Kinase C-Reactive Protein Total Protein Albumin Triglycerides Urine Blood Urine WBC (Auto) U Epithel Cells (Auto) Crossmatch 10/07/21 10/07/21 10/07/21 05:09 05:13 09:43 WBC 22.3 H RBC 2.81 L Hgb 7.8 L Hct 24.0 L MCH MCHC RDW 16.5 H Plt Count 733 H Lymph % (Auto) Ross % (Auto) Lymph # (Auto) Ross # (Auto) Seg Neutrophils % Seg Neuts % (Manual) 85.0 H Lymphocytes % (Manual) 1.0 L Monocytes % (Manual) Nucleated RBC % Seg Neutrophils # Seg Neutrophils # Man 19.0 H Lymphocytes # (Manual) 0.2 L Monocytes # (Manual) 1.6 H PT INR D-Dimer ABG pH ABG pO2 ABG HCO3 ABG O2 Saturation ABG Base Excess ABG Hemoglobin Oxyhemoglobin Sodium 136 L Potassium Chloride Carbon Dioxide 20 L BUN 29 H Creatinine 1.9 H Glucose 140 H POC Glucose 139 H Lactic Acid Calcium 7.6 L Phosphorus Magnesium Ferritin AST ALT Lactate Dehydrogenase Total Creatine Kinase C-Reactive Protein Total Protein Albumin Triglycerides Urine Blood Urine WBC (Auto) U Epithel Cells (Auto) Crossmatch 10/07/21 10/07/21 10/08/21 11:38 17:44 00:20 WBC RBC Hgb Hct MCH MCHC RDW Plt Count Lymph % (Auto) Ross % (Auto) Lymph # (Auto) Ross # (Auto) Seg Neutrophils % Seg Neuts % (Manual) Lymphocytes % (Manual) Monocytes % (Manual) Nucleated RBC % Seg Neutrophils # Seg Neutrophils # Man Lymphocytes # (Manual) Monocytes # (Manual) PT INR D-Dimer ABG pH ABG pO2 ABG HCO3 ABG O2 Saturation ABG Base Excess ABG Hemoglobin Oxyhemoglobin Sodium Potassium Chloride Carbon Dioxide BUN Creatinine Glucose POC Glucose 126 H 113 H 129 H Lactic Acid Calcium Phosphorus Magnesium Ferritin AST ALT Lactate Dehydrogenase Total Creatine Kinase C-Reactive Protein Total Protein Albumin Triglycerides Urine Blood Urine WBC (Auto) U Epithel Cells (Auto) Crossmatch 10/08/21 10/08/21 10/08/21 05:26 05:26 05:29 WBC 21.8 H RBC 2.84 L Hgb 7.8 L Hct 24.1 L MCH 27 L MCHC RDW 16.5 H Plt Count 789 H Lymph % (Auto) Ross % (Auto) Lymph # (Auto) Ross # (Auto) Seg Neutrophils % Seg Neuts % (Manual) Lymphocytes % (Manual) Monocytes % (Manual) Nucleated RBC % Seg Neutrophils # Seg Neutrophils # Man Lymphocytes # (Manual) Monocytes # (Manual) PT INR D-Dimer ABG pH ABG pO2 ABG HCO3 ABG O2 Saturation ABG Base Excess ABG Hemoglobin Oxyhemoglobin Sodium 136 L Potassium Chloride Carbon Dioxide 20 L BUN 31 H Creatinine 1.7 H Glucose 134 H POC Glucose 123 H Lactic Acid Calcium 7.9 L Phosphorus 4.60 H D Magnesium Ferritin AST ALT Lactate Dehydrogenase Total Creatine Kinase C-Reactive Protein Total Protein Albumin Triglycerides Urine Blood Urine WBC (Auto) U Epithel Cells (Auto) Crossmatch 03/11/2610/08/21 10/08/21 11:53 17:07 20:08 WBC RBC Hgb Hct MCH MCHC RDW Plt Count Lymph % (Auto) Ross % (Auto) Lymph # (Auto) Ross # (Auto) Seg Neutrophils % Seg Neuts % (Manual) Lymphocytes % (Manual) Monocytes % (Manual) Nucleated RBC % Seg Neutrophils # Seg Neutrophils # Man Lymphocytes # (Manual) Monocytes # (Manual) PT INR D-Dimer ABG pH 7.308 L ABG pO2 40.2 L ABG HCO3 15.7 L ABG O2 Saturation 68 L ABG Base Excess -9.6 L ABG Hemoglobin 9.7 L Oxyhemoglobin 67.8 L Sodium Potassium Chloride Carbon Dioxide BUN Creatinine Glucose POC Glucose 128 H 139 H Lactic Acid Calcium Phosphorus Magnesium Ferritin AST ALT Lactate Dehydrogenase Total Creatine Kinase C-Reactive Protein Total Protein Albumin Triglycerides Urine Blood Urine WBC (Auto) U Epithel Cells (Auto) Crossmatch 10/08/21 10/08/21 10/08/21 21:30 22:55 22:55 WBC RBC Hgb Hct MCH MCHC RDW Plt Count Lymph % (Auto) Ross % (Auto) Lymph # (Auto) Ross # (Auto) Seg Neutrophils % Seg Neuts % (Manual) Lymphocytes % (Manual) Monocytes % (Manual) Nucleated RBC % Seg Neutrophils # Seg Neutrophils # Man Lymphocytes # (Manual) Monocytes # (Manual) PT INR D-Dimer ABG pH ABG pO2 43.8 L ABG HCO3 19.5 L ABG O2 Saturation 70.7 L ABG Base Excess -5.3 L ABG Hemoglobin 8.6 L Oxyhemoglobin 69.4 L Sodium Potassium Chloride Carbon Dioxide BUN Creatinine Glucose POC Glucose Lactic Acid 2.50 H* Calcium Phosphorus Magnesium Ferritin AST ALT Lactate Dehydrogenase Total Creatine Kinase C-Reactive Protein Total Protein Albumin Triglycerides Urine Blood Urine WBC (Auto) U Epithel Cells (Auto) Crossmatch See Detail 10/09/21 10/09/21 10/09/21 03:12 05:31 05:31 WBC 20.3 H RBC 2.70 L Hgb 7.4 L Hct 23.1 L MCH 27 L MCHC RDW 16.6 H Plt Count 786 H Lymph % (Auto) Ross % (Auto) Lymph # (Auto) Ross # (Auto) Seg Neutrophils % Seg Neuts % (Manual) 88.0 H Lymphocytes % (Manual) 3.0 L Monocytes % (Manual) Nucleated RBC % Seg Neutrophils # Seg Neutrophils # Man 17.9 H Lymphocytes # (Manual) 0.6 L Monocytes # (Manual) 1.2 H PT INR D-Dimer ABG pH ABG pO2 ABG HCO3 ABG O2 Saturation ABG Base Excess ABG Hemoglobin Oxyhemoglobin Sodium 136 L Potassium Chloride Carbon Dioxide 20 L BUN 32 H Creatinine 1.5 H Glucose 214 H POC Glucose 190 H Lactic Acid Calcium 7.5 L Phosphorus Magnesium Ferritin AST ALT Lactate Dehydrogenase Total Creatine Kinase C-Reactive Protein Total Protein 5.8 L Albumin 2.3 L Triglycerides Urine Blood Urine WBC (Auto) U Epithel Cells (Auto) Crossmatch 10/09/21 10/09/21 10/09/21 05:31 05:31 05:31 WBC RBC Hgb Hct MCH MCHC RDW Plt Count Lymph % (Auto) Ross % (Auto) Lymph # (Auto) Ross # (Auto) Seg Neutrophils % Seg Neuts % (Manual) Lymphocytes % (Manual) Monocytes % (Manual) Nucleated RBC % Seg Neutrophils # Seg Neutrophils # Man Lymphocytes # (Manual) Monocytes # (Manual) PT INR D-Dimer ABG pH ABG pO2 ABG HCO3 ABG O2 Saturation ABG Base Excess ABG Hemoglobin Oxyhemoglobin Sodium Potassium Chloride Carbon Dioxide BUN Creatinine Glucose POC Glucose Lactic Acid 2.20 H* Calcium Phosphorus Magnesium Ferritin 751.9 H AST ALT Lactate Dehydrogenase Total Creatine Kinase C-Reactive Protein 15.90 H Total Protein Albumin Triglycerides Urine Blood Urine WBC (Auto) U Epithel Cells (Auto) Crossmatch 10/09/21 10/09/21 10/09/21 05:31 08:45 12:08 WBC RBC Hgb Hct MCH MCHC RDW Plt Count Lymph % (Auto) Ross % (Auto) Lymph # (Auto) Ross # (Auto) Seg Neutrophils % Seg Neuts % (Manual) Lymphocytes % (Manual) Monocytes % (Manual) Nucleated RBC % Seg Neutrophils # Seg Neutrophils # Man Lymphocytes # (Manual) Monocytes # (Manual) PT INR D-Dimer > 17884 H ABG pH ABG pO2 54.3 L ABG HCO3 ABG O2 Saturation 86.6 L ABG Base Excess -2.6 L ABG Hemoglobin 7.2 L Oxyhemoglobin 85.3 L Sodium Potassium Chloride Carbon Dioxide BUN Creatinine Glucose POC Glucose Lactic Acid Calcium Phosphorus Magnesium Ferritin AST ALT Lactate Dehydrogenase 472 H Total Creatine Kinase C-Reactive Protein Total Protein Albumin Triglycerides Urine Blood Urine WBC (Auto) U Epithel Cells (Auto) Crossmatch 10/09/21 10/09/21 10/10/21 12:19 17:43 00:30 WBC RBC Hgb Hct MCH MCHC RDW Plt Count Lymph % (Auto) Ross % (Auto) Lymph # (Auto) Ross # (Auto) Seg Neutrophils % Seg Neuts % (Manual) Lymphocytes % (Manual) Monocytes % (Manual) Nucleated RBC % Seg Neutrophils # Seg Neutrophils # Man Lymphocytes # (Manual) Monocytes # (Manual) PT INR D-Dimer ABG pH ABG pO2 ABG HCO3 ABG O2 Saturation ABG Base Excess ABG Hemoglobin Oxyhemoglobin Sodium Potassium Chloride Carbon Dioxide BUN Creatinine Glucose POC Glucose 151 H 136 H 132 H Lactic Acid Calcium Phosphorus Magnesium Ferritin AST ALT Lactate Dehydrogenase Total Creatine Kinase C-Reactive Protein Total Protein Albumin Triglycerides Urine Blood Urine WBC (Auto) U Epithel Cells (Auto) Crossmatch 10/10/21 10/10/21 10/10/21 04:10 04:10 05:41 WBC 20.8 H RBC 2.54 L Hgb 7.1 L Hct 21.8 L MCH MCHC RDW 16.6 H Plt Count 740 H Lymph % (Auto) Ross % (Auto) Lymph # (Auto) Ross # (Auto) Seg Neutrophils % Seg Neuts % (Manual) Lymphocytes % (Manual) Monocytes % (Manual) Nucleated RBC % Seg Neutrophils # Seg Neutrophils # Man Lymphocytes # (Manual) Monocytes # (Manual) PT INR D-Dimer ABG pH ABG pO2 ABG HCO3 ABG O2 Saturation ABG Base Excess ABG Hemoglobin Oxyhemoglobin Sodium 130 L Potassium Chloride 97.9 L Carbon Dioxide 19 L BUN 37 H Creatinine 1.4 H Glucose 181 H POC Glucose 150 H Lactic Acid Calcium 7.8 L Phosphorus Magnesium Ferritin AST ALT Lactate Dehydrogenase Total Creatine Kinase C-Reactive Protein Total Protein Albumin Triglycerides Urine Blood Urine WBC (Auto) U Epithel Cells (Auto) Crossmatch 10/10/21 10/10/21 10/10/21 11:10 16:00 23:50 WBC RBC Hgb Hct MCH MCHC RDW Plt Count Lymph % (Auto) Ross % (Auto) Lymph # (Auto) Ross # (Auto) Seg Neutrophils % Seg Neuts % (Manual) Lymphocytes % (Manual) Monocytes % (Manual) Nucleated RBC % Seg Neutrophils # Seg Neutrophils # Man Lymphocytes # (Manual) Monocytes # (Manual) PT INR D-Dimer ABG pH ABG pO2 ABG HCO3 ABG O2 Saturation ABG Base Excess ABG Hemoglobin Oxyhemoglobin Sodium Potassium Chloride Carbon Dioxide BUN Creatinine Glucose POC Glucose 136 H 151 H 129 H Lactic Acid Calcium Phosphorus Magnesium Ferritin AST ALT Lactate Dehydrogenase Total Creatine Kinase C-Reactive Protein Total Protein Albumin Triglycerides Urine Blood Urine WBC (Auto) U Epithel Cells (Auto) Crossmatch 10/10/21 10/11/21 10/11/21 Unknown 03:30 03:30 WBC 23.2 H RBC 2.39 L Hgb 6.7 L Hct 20.3 L MCH MCHC RDW 16.7 H Plt Count 701 H Lymph % (Auto) Ross % (Auto) Lymph # (Auto) Ross # (Auto) Seg Neutrophils % Seg Neuts % (Manual) Lymphocytes % (Manual) Monocytes % (Manual) Nucleated RBC % Seg Neutrophils # Seg Neutrophils # Man Lymphocytes # (Manual) Monocytes # (Manual) PT INR D-Dimer ABG pH 7.505 H ABG pO2 246.1 H ABG HCO3 ABG O2 Saturation 99.4 H ABG Base Excess ABG Hemoglobin 6.0 L Oxyhemoglobin Sodium 135 L Potassium Chloride Carbon Dioxide 20 L BUN 38 H Creatinine 1.6 H Glucose 118 H POC Glucose Lactic Acid Calcium 7.9 L Phosphorus Magnesium Ferritin AST ALT Lactate Dehydrogenase Total Creatine Kinase C-Reactive Protein Total Protein Albumin Triglycerides Urine Blood Urine WBC (Auto) U Epithel Cells (Auto) Crossmatch 10/11/21 10/11/21 10/12/21 11:41 17:51 00:18 WBC RBC Hgb Hct MCH MCHC RDW Plt Count Lymph % (Auto) Ross % (Auto) Lymph # (Auto) Ross # (Auto) Seg Neutrophils % Seg Neuts % (Manual) Lymphocytes % (Manual) Monocytes % (Manual) Nucleated RBC % Seg Neutrophils # Seg Neutrophils # Man Lymphocytes # (Manual) Monocytes # (Manual) PT INR D-Dimer ABG pH ABG pO2 ABG HCO3 ABG O2 Saturation ABG Base Excess ABG Hemoglobin Oxyhemoglobin Sodium Potassium Chloride Carbon Dioxide BUN Creatinine Glucose POC Glucose 128 H 138 H 174 H Lactic Acid Calcium Phosphorus Magnesium Ferritin AST ALT Lactate Dehydrogenase Total Creatine Kinase C-Reactive Protein Total Protein Albumin Triglycerides Urine Blood Urine WBC (Auto) U Epithel Cells (Auto) Crossmatch 10/12/21 10/12/21 10/12/21 05:39 06:02 06:02 WBC 19.1 H RBC 3.56 L Hgb 10.0 L D Hct MCH MCHC RDW 17.0 H Plt Count 712 H Lymph % (Auto) Ross % (Auto) Lymph # (Auto) Ross # (Auto) Seg Neutrophils % Seg Neuts % (Manual) Lymphocytes % (Manual) Monocytes % (Manual) Nucleated RBC % Seg Neutrophils # Seg Neutrophils # Man Lymphocytes # (Manual) Monocytes # (Manual) PT INR D-Dimer ABG pH ABG pO2 ABG HCO3 ABG O2 Saturation ABG Base Excess ABG Hemoglobin Oxyhemoglobin Sodium Potassium Chloride Carbon Dioxide BUN 37 H Creatinine 1.5 H Glucose 172 H POC Glucose 158 H Lactic Acid Calcium 8.1 L Phosphorus Magnesium Ferritin AST ALT Lactate Dehydrogenase Total Creatine Kinase C-Reactive Protein Total Protein Albumin Triglycerides Urine Blood Urine WBC (Auto) U Epithel Cells (Auto) Crossmatch 10/12/21 10/12/21 10/12/21 06:02 06:05 17:43 WBC RBC Hgb Hct MCH MCHC RDW Plt Count Lymph % (Auto) Ross % (Auto) Lymph # (Auto) Ross # (Auto) Seg Neutrophils % Seg Neuts % (Manual) Lymphocytes % (Manual) Monocytes % (Manual) Nucleated RBC % Seg Neutrophils # Seg Neutrophils # Man Lymphocytes # (Manual) Monocytes # (Manual) PT 17.1 H INR 1.24 H D-Dimer ABG pH ABG pO2 ABG HCO3 ABG O2 Saturation ABG Base Excess ABG Hemoglobin Oxyhemoglobin Sodium Potassium Chloride Carbon Dioxide BUN Creatinine Glucose POC Glucose 173 H Lactic Acid Calcium Phosphorus Magnesium Ferritin AST ALT Lactate Dehydrogenase Total Creatine Kinase C-Reactive Protein Total Protein Albumin Triglycerides Urine Blood Urine WBC (Auto) U Epithel Cells (Auto) Crossmatch See Detail 10/12/21 10/12/21 10/13/21 23:28 Unknown 04:05 WBC RBC Hgb 10.0 L Hct MCH MCHC RDW Plt Count Lymph % (Auto) Ross % (Auto) Lymph # (Auto) Ross # (Auto) Seg Neutrophils % Seg Neuts % (Manual) Lymphocytes % (Manual) Monocytes % (Manual) Nucleated RBC % Seg Neutrophils # Seg Neutrophils # Man Lymphocytes # (Manual) Monocytes # (Manual) PT INR D-Dimer ABG pH ABG pO2 ABG HCO3 ABG O2 Saturation ABG Base Excess ABG Hemoglobin Oxyhemoglobin Sodium Potassium Chloride Carbon Dioxide BUN 34 H Creatinine Glucose 200 H POC Glucose 178 H Lactic Acid Calcium 7.5 L Phosphorus Magnesium 1.60 L Ferritin AST ALT Lactate Dehydrogenase Total Creatine Kinase C-Reactive Protein Total Protein Albumin Triglycerides Urine Blood Urine WBC (Auto) U Epithel Cells (Auto) Crossmatch 10/13/21 10/13/21 10/13/21 05:09 10:55 13:34 WBC 23.8 H RBC 3.14 L Hgb 9.2 L Hct 27.7 L MCH MCHC RDW 17.5 H Plt Count 572 H Lymph % (Auto) Ross % (Auto) Lymph # (Auto) Ross # (Auto) Seg Neutrophils % Seg Neuts % (Manual) Lymphocytes % (Manual) Monocytes % (Manual) Nucleated RBC % Seg Neutrophils # Seg Neutrophils # Man Lymphocytes # (Manual) Monocytes # (Manual) PT INR D-Dimer ABG pH ABG pO2 ABG HCO3 ABG O2 Saturation ABG Base Excess ABG Hemoglobin Oxyhemoglobin Sodium Potassium Chloride Carbon Dioxide BUN Creatinine Glucose POC Glucose 210 H 168 H Lactic Acid Calcium Phosphorus Magnesium Ferritin AST ALT Lactate Dehydrogenase Total Creatine Kinase C-Reactive Protein Total Protein Albumin Triglycerides Urine Blood Urine WBC (Auto) U Epithel Cells (Auto) Crossmatch 10/13/21 10/13/21 10/14/21 15:35 23:10 04:05 WBC 19.4 H RBC 2.98 L Hgb 8.4 L Hct 26.3 L MCH MCHC RDW 17.1 H Plt Count 561 H Lymph % (Auto) Ross % (Auto) Lymph # (Auto) Ross # (Auto) Seg Neutrophils % Seg Neuts % (Manual) Lymphocytes % (Manual) Monocytes % (Manual) Nucleated RBC % Seg Neutrophils # Seg Neutrophils # Man Lymphocytes # (Manual) Monocytes # (Manual) PT INR D-Dimer ABG pH ABG pO2 ABG HCO3 ABG O2 Saturation ABG Base Excess ABG Hemoglobin Oxyhemoglobin Sodium Potassium Chloride Carbon Dioxide BUN Creatinine Glucose POC Glucose 154 H 135 H Lactic Acid Calcium Phosphorus Magnesium Ferritin AST ALT Lactate Dehydrogenase Total Creatine Kinase C-Reactive Protein Total Protein Albumin Triglycerides Urine Blood Urine WBC (Auto) U Epithel Cells (Auto) Crossmatch 10/14/21 10/14/21 10/14/21 04:05 04:05 05:08 WBC RBC Hgb Hct MCH MCHC RDW Plt Count Lymph % (Auto) Ross % (Auto) Lymph # (Auto) Ross # (Auto) Seg Neutrophils % Seg Neuts % (Manual) Lymphocytes % (Manual) Monocytes % (Manual) Nucleated RBC % Seg Neutrophils # Seg Neutrophils # Man Lymphocytes # (Manual) Monocytes # (Manual) PT 19.0 H INR 1.41 H D-Dimer ABG pH ABG pO2 ABG HCO3 ABG O2 Saturation ABG Base Excess ABG Hemoglobin Oxyhemoglobin Sodium Potassium Chloride Carbon Dioxide BUN 33 H Creatinine Glucose 310 H POC Glucose 178 H Lactic Acid Calcium 7.4 L Phosphorus Magnesium Ferritin AST ALT Lactate Dehydrogenase Total Creatine Kinase C-Reactive Protein Total Protein Albumin Triglycerides Urine Blood Urine WBC (Auto) U Epithel Cells (Auto) Crossmatch 10/14/21 10/14/21 10/14/21 09:29 10:45 11:40 WBC RBC Hgb Hct MCH MCHC RDW Plt Count Lymph % (Auto) Ross % (Auto) Lymph # (Auto) Ross # (Auto) Seg Neutrophils % Seg Neuts % (Manual) Lymphocytes % (Manual) Monocytes % (Manual) Nucleated RBC % Seg Neutrophils # Seg Neutrophils # Man Lymphocytes # (Manual) Monocytes # (Manual) PT INR D-Dimer ABG pH 7.342 L ABG pO2 96.0 H ABG HCO3 26.2 H ABG O2 Saturation ABG Base Excess ABG Hemoglobin 6.1 L Oxyhemoglobin 94.9 L Sodium Potassium Chloride Carbon Dioxide BUN Creatinine Glucose POC Glucose 155 H 137 H Lactic Acid Calcium Phosphorus Magnesium Ferritin AST ALT Lactate Dehydrogenase Total Creatine Kinase C-Reactive Protein Total Protein Albumin Triglycerides Urine Blood Urine WBC (Auto) U Epithel Cells (Auto) Crossmatch 10/14/21 10/14/21 10/14/21 15:40 21:21 23:46 WBC RBC Hgb Hct MCH MCHC RDW Plt Count Lymph % (Auto) Ross % (Auto) Lymph # (Auto) Ross # (Auto) Seg Neutrophils % Seg Neuts % (Manual) Lymphocytes % (Manual) Monocytes % (Manual) Nucleated RBC % Seg Neutrophils # Seg Neutrophils # Man Lymphocytes # (Manual) Monocytes # (Manual) PT INR D-Dimer ABG pH ABG pO2 ABG HCO3 ABG O2 Saturation ABG Base Excess ABG Hemoglobin Oxyhemoglobin Sodium Potassium Chloride Carbon Dioxide BUN Creatinine Glucose POC Glucose 140 H 111 H 164 H Lactic Acid Calcium Phosphorus Magnesium Ferritin AST ALT Lactate Dehydrogenase Total Creatine Kinase C-Reactive Protein Total Protein Albumin Triglycerides Urine Blood Urine WBC (Auto) U Epithel Cells (Auto) Crossmatch 10/15/21 10/15/21 10/15/21 05:06 05:40 05:40 WBC 22.7 H RBC 2.94 L Hgb 8.7 L Hct 25.8 L MCH MCHC RDW 17.2 H Plt Count 620 H Lymph % (Auto) Ross % (Auto) Lymph # (Auto) Ross # (Auto) Seg Neutrophils % Seg Neuts % (Manual) Lymphocytes % (Manual) Monocytes % (Manual) Nucleated RBC % Seg Neutrophils # Seg Neutrophils # Man Lymphocytes # (Manual) Monocytes # (Manual) PT INR D-Dimer ABG pH ABG pO2 ABG HCO3 ABG O2 Saturation ABG Base Excess ABG Hemoglobin Oxyhemoglobin Sodium Potassium Chloride Carbon Dioxide BUN 30 H Creatinine Glucose 175 H POC Glucose 155 H Lactic Acid Calcium 7.4 L Phosphorus Magnesium Ferritin AST ALT Lactate Dehydrogenase Total Creatine Kinase C-Reactive Protein Total Protein Albumin Triglycerides Urine Blood Urine WBC (Auto) U Epithel Cells (Auto) Crossmatch 10/15/21 10/15/21 10/15/21 11:32 17:23 23:35 WBC RBC Hgb Hct MCH MCHC RDW Plt Count Lymph % (Auto) Ross % (Auto) Lymph # (Auto) Ross # (Auto) Seg Neutrophils % Seg Neuts % (Manual) Lymphocytes % (Manual) Monocytes % (Manual) Nucleated RBC % Seg Neutrophils # Seg Neutrophils # Man Lymphocytes # (Manual) Monocytes # (Manual) PT INR D-Dimer ABG pH ABG pO2 ABG HCO3 ABG O2 Saturation ABG Base Excess ABG Hemoglobin Oxyhemoglobin Sodium Potassium Chloride Carbon Dioxide BUN Creatinine Glucose POC Glucose 157 H 136 H 143 H Lactic Acid Calcium Phosphorus Magnesium Ferritin AST ALT Lactate Dehydrogenase Total Creatine Kinase C-Reactive Protein Total Protein Albumin Triglycerides Urine Blood Urine WBC (Auto) U Epithel Cells (Auto) Crossmatch 10/16/21 10/16/21 10/16/21 04:00 04:00 05:08 WBC 18.0 H RBC 2.80 L Hgb 8.0 L Hct 24.7 L MCH MCHC RDW 17.4 H Plt Count 543 H Lymph % (Auto) Ross % (Auto) Lymph # (Auto) Ross # (Auto) Seg Neutrophils % Seg Neuts % (Manual) Lymphocytes % (Manual) Monocytes % (Manual) Nucleated RBC % Seg Neutrophils # Seg Neutrophils # Man Lymphocytes # (Manual) Monocytes # (Manual) PT INR D-Dimer ABG pH ABG pO2 ABG HCO3 ABG O2 Saturation ABG Base Excess ABG Hemoglobin Oxyhemoglobin Sodium Potassium Chloride Carbon Dioxide BUN 31 H Creatinine Glucose 153 H POC Glucose 149 H Lactic Acid Calcium 8.0 L Phosphorus Magnesium Ferritin AST ALT Lactate Dehydrogenase Total Creatine Kinase C-Reactive Protein Total Protein 5.5 L Albumin 1.9 L Triglycerides Urine Blood Urine WBC (Auto) U Epithel Cells (Auto) Crossmatch 10/16/21 10/16/21 10/16/21 11:45 17:37 23:48 WBC RBC Hgb Hct MCH MCHC RDW Plt Count Lymph % (Auto) Ross % (Auto) Lymph # (Auto) Ross # (Auto) Seg Neutrophils % Seg Neuts % (Manual) Lymphocytes % (Manual) Monocytes % (Manual) Nucleated RBC % Seg Neutrophils # Seg Neutrophils # Man Lymphocytes # (Manual) Monocytes # (Manual) PT INR D-Dimer ABG pH ABG pO2 ABG HCO3 ABG O2 Saturation ABG Base Excess ABG Hemoglobin Oxyhemoglobin Sodium Potassium Chloride Carbon Dioxide BUN Creatinine Glucose POC Glucose 144 H 130 H 134 H Lactic Acid Calcium Phosphorus Magnesium Ferritin AST ALT Lactate Dehydrogenase Total Creatine Kinase C-Reactive Protein Total Protein Albumin Triglycerides Urine Blood Urine WBC (Auto) U Epithel Cells (Auto) Crossmatch 10/17/21 10/17/21 10/17/21 04:00 04:00 05:37 WBC 14.0 H RBC 2.46 L Hgb 7.2 L Hct 21.7 L MCH MCHC RDW 17.4 H Plt Count 526 H Lymph % (Auto) Ross % (Auto) Lymph # (Auto) Ross # (Auto) Seg Neutrophils % Seg Neuts % (Manual) Lymphocytes % (Manual) Monocytes % (Manual) Nucleated RBC % Seg Neutrophils # Seg Neutrophils # Man Lymphocytes # (Manual) Monocytes # (Manual) PT INR D-Dimer ABG pH ABG pO2 ABG HCO3 ABG O2 Saturation ABG Base Excess ABG Hemoglobin Oxyhemoglobin Sodium Potassium Chloride Carbon Dioxide BUN 29 H Creatinine Glucose 138 H POC Glucose 137 H Lactic Acid Calcium 7.5 L Phosphorus Magnesium Ferritin AST ALT Lactate Dehydrogenase Total Creatine Kinase C-Reactive Protein Total Protein Albumin Triglycerides Urine Blood Urine WBC (Auto) U Epithel Cells (Auto) Crossmatch 10/17/21 10/17/21 10/17/21 11:45 12:50 16:13 WBC RBC Hgb Hct MCH MCHC RDW Plt Count Lymph % (Auto) Ross % (Auto) Lymph # (Auto) Ross # (Auto) Seg Neutrophils % Seg Neuts % (Manual) Lymphocytes % (Manual) Monocytes % (Manual) Nucleated RBC % Seg Neutrophils # Seg Neutrophils # Man Lymphocytes # (Manual) Monocytes # (Manual) PT INR D-Dimer ABG pH ABG pO2 ABG HCO3 ABG O2 Saturation ABG Base Excess ABG Hemoglobin Oxyhemoglobin Sodium Potassium Chloride Carbon Dioxide BUN Creatinine Glucose POC Glucose 145 H 128 H Lactic Acid Calcium Phosphorus Magnesium Ferritin AST ALT Lactate Dehydrogenase Total Creatine Kinase C-Reactive Protein Total Protein Albumin Triglycerides Urine Blood Urine WBC (Auto) U Epithel Cells (Auto) Crossmatch See Detail 10/17/21 10/18/21 10/18/21 23:46 04:28 04:28 WBC 16.6 H RBC 2.81 L Hgb 8.4 L Hct 24.4 L MCH MCHC RDW 16.8 H Plt Count 516 H Lymph % (Auto) Ross % (Auto) Lymph # (Auto) Ross # (Auto) Seg Neutrophils % Seg Neuts % (Manual) Lymphocytes % (Manual) Monocytes % (Manual) Nucleated RBC % Seg Neutrophils # Seg Neutrophils # Man Lymphocytes # (Manual) Monocytes # (Manual) PT INR D-Dimer ABG pH ABG pO2 ABG HCO3 ABG O2 Saturation ABG Base Excess ABG Hemoglobin Oxyhemoglobin Sodium Potassium Chloride Carbon Dioxide BUN 26 H Creatinine Glucose 144 H POC Glucose 124 H Lactic Acid Calcium 7.5 L Phosphorus Magnesium Ferritin AST ALT 6 L Lactate Dehydrogenase Total Creatine Kinase C-Reactive Protein Total Protein 6.1 L Albumin 2.0 L Triglycerides Urine Blood Urine WBC (Auto) U Epithel Cells (Auto) Crossmatch 10/18/21 10/18/21 10/18/21 05:19 11:34 11:40 WBC RBC Hgb Hct MCH MCHC RDW Plt Count Lymph % (Auto) Ross % (Auto) Lymph # (Auto) Ross # (Auto) Seg Neutrophils % Seg Neuts % (Manual) Lymphocytes % (Manual) Monocytes % (Manual) Nucleated RBC % Seg Neutrophils # Seg Neutrophils # Man Lymphocytes # (Manual) Monocytes # (Manual) PT INR D-Dimer ABG pH 7.466 H ABG pO2 90.6 H ABG HCO3 29.0 H ABG O2 Saturation ABG Base Excess 4.9 H ABG Hemoglobin 8.6 L Oxyhemoglobin Sodium Potassium Chloride Carbon Dioxide BUN Creatinine Glucose POC Glucose 128 H Lactic Acid Calcium Phosphorus Magnesium Ferritin AST ALT Lactate Dehydrogenase Total Creatine Kinase C-Reactive Protein Total Protein Albumin Triglycerides Urine Blood Moderate A Urine WBC (Auto) 50.0 H U Epithel Cells (Auto) Crossmatch 10/18/21 10/18/21 10/19/21 12:20 16:18 01:28 WBC RBC Hgb Hct MCH MCHC RDW Plt Count Lymph % (Auto) Ross % (Auto) Lymph # (Auto) Ross # (Auto) Seg Neutrophils % Seg Neuts % (Manual) Lymphocytes % (Manual) Monocytes % (Manual) Nucleated RBC % Seg Neutrophils # Seg Neutrophils # Man Lymphocytes # (Manual) Monocytes # (Manual) PT INR D-Dimer ABG pH ABG pO2 ABG HCO3 ABG O2 Saturation ABG Base Excess ABG Hemoglobin Oxyhemoglobin Sodium Potassium Chloride Carbon Dioxide BUN Creatinine Glucose POC Glucose 151 H 139 H 126 H Lactic Acid Calcium Phosphorus Magnesium Ferritin AST ALT Lactate Dehydrogenase Total Creatine Kinase C-Reactive Protein Total Protein Albumin Triglycerides Urine Blood Urine WBC (Auto) U Epithel Cells (Auto) Crossmatch 10/19/21 10/19/21 10/19/21 04:23 04:23 04:23 WBC 16.0 H RBC 3.04 L Hgb 8.7 L Hct 26.3 L MCH MCHC RDW 16.9 H Plt Count 500 H Lymph % (Auto) Ross % (Auto) Lymph # (Auto) Ross # (Auto) Seg Neutrophils % Seg Neuts % (Manual) Lymphocytes % (Manual) Monocytes % (Manual) Nucleated RBC % Seg Neutrophils # Seg Neutrophils # Man Lymphocytes # (Manual) Monocytes # (Manual) PT INR D-Dimer ABG pH ABG pO2 ABG HCO3 ABG O2 Saturation ABG Base Excess ABG Hemoglobin Oxyhemoglobin Sodium Potassium Chloride Carbon Dioxide BUN 20 H Creatinine Glucose 138 H POC Glucose Lactic Acid Calcium 7.8 L Phosphorus 1.80 L D Magnesium 1.60 L Ferritin AST ALT Lactate Dehydrogenase Total Creatine Kinase C-Reactive Protein Total Protein Albumin Triglycerides Urine Blood Urine WBC (Auto) U Epithel Cells (Auto) Crossmatch 10/19/21 10/19/21 10/19/21 14:11 18:05 21:42 WBC RBC Hgb Hct MCH MCHC RDW Plt Count Lymph % (Auto) Ross % (Auto) Lymph # (Auto) Ross # (Auto) Seg Neutrophils % Seg Neuts % (Manual) Lymphocytes % (Manual) Monocytes % (Manual) Nucleated RBC % Seg Neutrophils # Seg Neutrophils # Man Lymphocytes # (Manual) Monocytes # (Manual) PT INR D-Dimer ABG pH ABG pO2 ABG HCO3 ABG O2 Saturation ABG Base Excess ABG Hemoglobin Oxyhemoglobin Sodium Potassium Chloride Carbon Dioxide BUN Creatinine Glucose POC Glucose 161 H 162 H 112 H Lactic Acid Calcium Phosphorus Magnesium Ferritin AST ALT Lactate Dehydrogenase Total Creatine Kinase C-Reactive Protein Total Protein Albumin Triglycerides Urine Blood Urine WBC (Auto) U Epithel Cells (Auto) Crossmatch 10/20/21 10/20/21 10/20/21 00:01 05:39 11:41 WBC 20.2 H RBC 2.81 L Hgb 8.5 L Hct 24.3 L MCH MCHC 35 H RDW 16.8 H Plt Count 481 H Lymph % (Auto) Ross % (Auto) Lymph # (Auto) Ross # (Auto) Seg Neutrophils % Seg Neuts % (Manual) Lymphocytes % (Manual) Monocytes % (Manual) Nucleated RBC % Seg Neutrophils # Seg Neutrophils # Man Lymphocytes # (Manual) Monocytes # (Manual) PT INR D-Dimer ABG pH ABG pO2 ABG HCO3 ABG O2 Saturation ABG Base Excess ABG Hemoglobin Oxyhemoglobin Sodium Potassium Chloride Carbon Dioxide BUN Creatinine Glucose POC Glucose 152 H 117 H Lactic Acid Calcium Phosphorus Magnesium Ferritin AST ALT Lactate Dehydrogenase Total Creatine Kinase C-Reactive Protein Total Protein Albumin Triglycerides Urine Blood Urine WBC (Auto) U Epithel Cells (Auto) Crossmatch 10/20/21 10/20/21 10/20/21 11:41 11:50 17:31 WBC RBC Hgb Hct MCH MCHC RDW Plt Count Lymph % (Auto) Ross % (Auto) Lymph # (Auto) Ross # (Auto) Seg Neutrophils % Seg Neuts % (Manual) Lymphocytes % (Manual) Monocytes % (Manual) Nucleated RBC % Seg Neutrophils # Seg Neutrophils # Man Lymphocytes # (Manual) Monocytes # (Manual) PT INR D-Dimer ABG pH ABG pO2 ABG HCO3 ABG O2 Saturation ABG Base Excess ABG Hemoglobin Oxyhemoglobin Sodium Potassium Chloride Carbon Dioxide BUN 20 H Creatinine Glucose 123 H POC Glucose 120 H 125 H Lactic Acid Calcium 7.7 L Phosphorus 2.00 L Magnesium Ferritin AST ALT Lactate Dehydrogenase Total Creatine Kinase C-Reactive Protein Total Protein Albumin Triglycerides Urine Blood Urine WBC (Auto) U Epithel Cells (Auto) Crossmatch 10/20/21 10/21/21 10/21/21 23:25 04:30 04:30 WBC 23.2 H RBC 2.70 L Hgb 7.9 L Hct 23.2 L MCH MCHC RDW 17.2 H Plt Count Lymph % (Auto) Ross % (Auto) Lymph # (Auto) Ross # (Auto) Seg Neutrophils % Seg Neuts % (Manual) Lymphocytes % (Manual) Monocytes % (Manual) Nucleated RBC % Seg Neutrophils # Seg Neutrophils # Man Lymphocytes # (Manual) Monocytes # (Manual) PT INR D-Dimer ABG pH ABG pO2 ABG HCO3 ABG O2 Saturation ABG Base Excess ABG Hemoglobin Oxyhemoglobin Sodium Potassium Chloride Carbon Dioxide BUN 22 H Creatinine Glucose 117 H POC Glucose 119 H Lactic Acid Calcium 7.7 L Phosphorus Magnesium Ferritin AST ALT Lactate Dehydrogenase Total Creatine Kinase C-Reactive Protein Total Protein Albumin Triglycerides Urine Blood Urine WBC (Auto) U Epithel Cells (Auto) Crossmatch 10/21/21 10/21/21 10/21/21 05:26 09:05 11:27 WBC RBC Hgb Hct MCH MCHC RDW Plt Count Lymph % (Auto) Ross % (Auto) Lymph # (Auto) Ross # (Auto) Seg Neutrophils % Seg Neuts % (Manual) Lymphocytes % (Manual) Monocytes % (Manual) Nucleated RBC % Seg Neutrophils # Seg Neutrophils # Man Lymphocytes # (Manual) Monocytes # (Manual) PT INR D-Dimer ABG pH 7.509 H ABG pO2 60.3 L ABG HCO3 26.2 H ABG O2 Saturation ABG Base Excess ABG Hemoglobin 6.7 L Oxyhemoglobin Sodium Potassium Chloride Carbon Dioxide BUN Creatinine Glucose POC Glucose 111 H 114 H Lactic Acid Calcium Phosphorus Magnesium Ferritin AST ALT Lactate Dehydrogenase Total Creatine Kinase C-Reactive Protein Total Protein Albumin Triglycerides Urine Blood Urine WBC (Auto) U Epithel Cells (Auto) Crossmatch 10/21/21 10/21/21 10/22/21 16:45 23:13 05:25 WBC 21.7 H RBC 2.55 L Hgb 7.5 L Hct 22.3 L MCH MCHC RDW 16.8 H Plt Count Lymph % (Auto) Ross % (Auto) Lymph # (Auto) Ross # (Auto) Seg Neutrophils % Seg Neuts % (Manual) 86.0 H Lymphocytes % (Manual) 7.0 L Monocytes % (Manual) Nucleated RBC % Seg Neutrophils # Seg Neutrophils # Man 18.7 H Lymphocytes # (Manual) Monocytes # (Manual) 1.5 H PT INR D-Dimer ABG pH ABG pO2 ABG HCO3 ABG O2 Saturation ABG Base Excess ABG Hemoglobin Oxyhemoglobin Sodium Potassium Chloride Carbon Dioxide BUN Creatinine Glucose POC Glucose 117 H 125 H Lactic Acid Calcium Phosphorus Magnesium Ferritin AST ALT Lactate Dehydrogenase Total Creatine Kinase C-Reactive Protein Total Protein Albumin Triglycerides Urine Blood Urine WBC (Auto) U Epithel Cells (Auto) Crossmatch 10/22/21 10/22/21 10/22/21 09:02 09:02 11:07 WBC 17.2 H RBC 2.51 L Hgb 7.1 L Hct 21.9 L MCH MCHC RDW 17.2 H Plt Count Lymph % (Auto) 4.7 L Ross % (Auto) 10.2 H Lymph # (Auto) 0.8 L Ross # (Auto) 1.8 H Seg Neutrophils % 84.5 H Seg Neuts % (Manual) Lymphocytes % (Manual) Monocytes % (Manual) Nucleated RBC % Seg Neutrophils # 14.5 H Seg Neutrophils # Man Lymphocytes # (Manual) Monocytes # (Manual) PT INR D-Dimer ABG pH ABG pO2 ABG HCO3 ABG O2 Saturation ABG Base Excess ABG Hemoglobin Oxyhemoglobin Sodium 134 L Potassium Chloride Carbon Dioxide BUN 23 H Creatinine Glucose 117 H POC Glucose 115 H Lactic Acid Calcium 8.1 L Phosphorus Magnesium Ferritin AST ALT Lactate Dehydrogenase Total Creatine Kinase C-Reactive Protein Total Protein Albumin Triglycerides Urine Blood Urine WBC (Auto) U Epithel Cells (Auto) Crossmatch 10/22/21 10/22/21 10/22/21 16:05 23:15 Unknown WBC RBC Hgb Hct MCH MCHC RDW Plt Count Lymph % (Auto) Ross % (Auto) Lymph # (Auto) Ross # (Auto) Seg Neutrophils % Seg Neuts % (Manual) Lymphocytes % (Manual) Monocytes % (Manual) Nucleated RBC % Seg Neutrophils # Seg Neutrophils # Man Lymphocytes # (Manual) Monocytes # (Manual) PT INR D-Dimer ABG pH ABG pO2 ABG HCO3 ABG O2 Saturation ABG Base Excess ABG Hemoglobin Oxyhemoglobin Sodium 135 L Potassium Chloride Carbon Dioxide BUN 23 H Creatinine Glucose 112 H POC Glucose 123 H 114 H Lactic Acid Calcium 8.2 L Phosphorus Magnesium Ferritin AST ALT Lactate Dehydrogenase Total Creatine Kinase C-Reactive Protein Total Protein Albumin Triglycerides Urine Blood Urine WBC (Auto) U Epithel Cells (Auto) Crossmatch 10/23/21 10/23/21 10/23/21 04:56 04:56 05:28 WBC 16.5 H RBC 2.46 L Hgb 7.1 L Hct 21.4 L MCH MCHC RDW 16.9 H Plt Count Lymph % (Auto) Ross % (Auto) Lymph # (Auto) Ross # (Auto) Seg Neutrophils % Seg Neuts % (Manual) Lymphocytes % (Manual) Monocytes % (Manual) Nucleated RBC % Seg Neutrophils # Seg Neutrophils # Man Lymphocytes # (Manual) Monocytes # (Manual) PT INR D-Dimer ABG pH ABG pO2 ABG HCO3 ABG O2 Saturation ABG Base Excess ABG Hemoglobin Oxyhemoglobin Sodium Potassium Chloride Carbon Dioxide 21 L BUN 25 H Creatinine Glucose 123 H POC Glucose 130 H Lactic Acid Calcium 8.3 L Phosphorus Magnesium Ferritin AST ALT Lactate Dehydrogenase Total Creatine Kinase C-Reactive Protein Total Protein Albumin Triglycerides Urine Blood Urine WBC (Auto) U Epithel Cells (Auto) Crossmatch 10/23/21 10/23/21 10/24/21 11:24 17:52 00:11 WBC RBC Hgb Hct MCH MCHC RDW Plt Count Lymph % (Auto) Ross % (Auto) Lymph # (Auto) Ross # (Auto) Seg Neutrophils % Seg Neuts % (Manual) Lymphocytes % (Manual) Monocytes % (Manual) Nucleated RBC % Seg Neutrophils # Seg Neutrophils # Man Lymphocytes # (Manual) Monocytes # (Manual) PT INR D-Dimer ABG pH ABG pO2 ABG HCO3 ABG O2 Saturation ABG Base Excess ABG Hemoglobin Oxyhemoglobin Sodium Potassium Chloride Carbon Dioxide BUN Creatinine Glucose POC Glucose 123 H 121 H 139 H Lactic Acid Calcium Phosphorus Magnesium Ferritin AST ALT Lactate Dehydrogenase Total Creatine Kinase C-Reactive Protein Total Protein Albumin Triglycerides Urine Blood Urine WBC (Auto) U Epithel Cells (Auto) Crossmatch 10/24/21 10/24/21 10/24/21 04:00 04:00 05:15 WBC 14.2 H RBC 2.55 L Hgb 7.4 L Hct 22.2 L MCH MCHC RDW 17.0 H Plt Count 470 H Lymph % (Auto) Ross % (Auto) Lymph # (Auto) Ross # (Auto) Seg Neutrophils % Seg Neuts % (Manual) Lymphocytes % (Manual) Monocytes % (Manual) Nucleated RBC % Seg Neutrophils # Seg Neutrophils # Man Lymphocytes # (Manual) Monocytes # (Manual) PT INR D-Dimer ABG pH ABG pO2 ABG HCO3 ABG O2 Saturation ABG Base Excess ABG Hemoglobin Oxyhemoglobin Sodium 135 L Potassium Chloride Carbon Dioxide 21 L BUN 26 H Creatinine Glucose 122 H POC Glucose 133 H Lactic Acid Calcium 8.2 L Phosphorus Magnesium Ferritin AST ALT Lactate Dehydrogenase Total Creatine Kinase C-Reactive Protein Total Protein Albumin Triglycerides Urine Blood Urine WBC (Auto) U Epithel Cells (Auto) Crossmatch 10/24/21 10/25/21 10/25/21 16:53 05:03 05:03 WBC 12.2 H RBC 2.72 L Hgb 7.9 L Hct 23.7 L MCH MCHC RDW 17.3 H Plt Count 486 H Lymph % (Auto) Ross % (Auto) Lymph # (Auto) Ross # (Auto) Seg Neutrophils % Seg Neuts % (Manual) Lymphocytes % (Manual) Monocytes % (Manual) Nucleated RBC % Seg Neutrophils # Seg Neutrophils # Man Lymphocytes # (Manual) Monocytes # (Manual) PT INR D-Dimer ABG pH ABG pO2 ABG HCO3 ABG O2 Saturation ABG Base Excess ABG Hemoglobin Oxyhemoglobin Sodium 134 L Potassium Chloride Carbon Dioxide 19 L BUN 26 H Creatinine Glucose 107 H POC Glucose 129 H Lactic Acid Calcium 8.2 L Phosphorus Magnesium Ferritin AST ALT Lactate Dehydrogenase Total Creatine Kinase C-Reactive Protein Total Protein Albumin Triglycerides Urine Blood Urine WBC (Auto) U Epithel Cells (Auto) Crossmatch 10/25/21 10/25/21 10/25/21 05:44 11:29 17:10 WBC RBC Hgb Hct MCH MCHC RDW Plt Count Lymph % (Auto) Ross % (Auto) Lymph # (Auto) Ross # (Auto) Seg Neutrophils % Seg Neuts % (Manual) Lymphocytes % (Manual) Monocytes % (Manual) Nucleated RBC % Seg Neutrophils # Seg Neutrophils # Man Lymphocytes # (Manual) Monocytes # (Manual) PT INR D-Dimer ABG pH ABG pO2 ABG HCO3 ABG O2 Saturation ABG Base Excess ABG Hemoglobin Oxyhemoglobin Sodium Potassium Chloride Carbon Dioxide BUN Creatinine Glucose POC Glucose 113 H 120 H 121 H Lactic Acid Calcium Phosphorus Magnesium Ferritin AST ALT Lactate Dehydrogenase Total Creatine Kinase C-Reactive Protein Total Protein Albumin Triglycerides Urine Blood Urine WBC (Auto) U Epithel Cells (Auto) Crossmatch 10/26/21 10/26/21 04:18 04:18 WBC 14.5 H RBC 2.50 L Hgb 7.4 L Hct 21.8 L MCH MCHC RDW 17.0 H Plt Count 495 H Lymph % (Auto) Ross % (Auto) Lymph # (Auto) Ross # (Auto) Seg Neutrophils % Seg Neuts % (Manual) Lymphocytes % (Manual) Monocytes % (Manual) Nucleated RBC % Seg Neutrophils # Seg Neutrophils # Man Lymphocytes # (Manual) Monocytes # (Manual) PT INR D-Dimer ABG pH ABG pO2 ABG HCO3 ABG O2 Saturation ABG Base Excess ABG Hemoglobin Oxyhemoglobin Sodium 135 L Potassium Chloride Carbon Dioxide 20 L BUN 26 H Creatinine Glucose 101 H POC Glucose Lactic Acid Calcium 8.2 L Phosphorus Magnesium Ferritin AST 71 H ALT 91 H Lactate Dehydrogenase Total Creatine Kinase C-Reactive Protein Total Protein Albumin 2.3 L Triglycerides 196 H Urine Blood Urine WBC (Auto) U Epithel Cells (Auto) Crossmatch Allied health notes reviewed: nursing
--- NOTE | 2021-10-26 14:08 | Progress Note ---
Assessment and Plan Postop day #12 status post colostomy creation with closure of abdomen. Episodic low fever and low grade tachycardia. Leukocytosis continues. Awaiting full return of bowel function. Sputum culture positive for gram-negative rods. Pt finished course abx per ID. Respiratory insufficiency - continue BIPAP per pulmonary prn. Would like to increase PT exercises as tolerated. will hold clear liquids. pt can have ice chips. Resume NGT to LIWS. Creatinine has normalized she is making good urine output. Continue supportive care. Postop day #15 status post colorectal anastomosis takedown, with abdominal washout and ABThera wound VAC. Postop day #23 status post laparoscopic converted to open left hemicolectomy with appendectomy for perforated appendicitis with fistulization to sigmoid colon. Subjective Date of service: 10/26/21 Narrative: Over the past 24 hours pt had some vomiting when started on clear liquids. Pt says she had does not feel as good as yesterday with 6/10 abdominal pain. No vomiting since yesterday however she stopped taking clear liquids after initial attempt. Had low grade fever and low tachycardia. Pt also has a headache. Objective Vital Signs - 12hr 10/26/21 10/26/21 10/26/21 02:30 03:00 03:30 Temperature Pulse Rate 108 H 106 H 103 H Respiratory 22 26 H 29 H Rate Blood Pressure 142/90 121/68 121/68 O2 Sat by Pulse 98 90 Oximetry 10/26/21 10/26/21 10/26/21 04:00 04:22 04:30 Temperature 99.1 F Pulse Rate 104 H 101 H Respiratory 26 H 22 Rate Blood Pressure 117/67 117/67 O2 Sat by Pulse 85 Oximetry 10/26/21 10/26/21 10/26/21 05:00 05:30 06:00 Temperature Pulse Rate 101 H 119 H 113 H Respiratory 25 H 29 H 21 Rate Blood Pressure 135/80 135/80 142/95 O2 Sat by Pulse 98 Oximetry 10/26/21 10/26/21 10/26/21 06:30 07:00 07:30 Temperature Pulse Rate 107 H 109 H 110 H Respiratory 29 H 29 H 29 H Rate Blood Pressure 142/95 132/88 132/88 O2 Sat by Pulse 97 96 Oximetry 10/26/21 10/26/21 10/26/21 08:00 08:09 08:30 Temperature 100.2 F H Pulse Rate 115 H 106 H Respiratory 23 Rate Blood Pressure 132/88 141/90 O2 Sat by Pulse Oximetry 10/26/21 10/26/21 10/26/21 08:50 09:00 09:30 Temperature Pulse Rate 115 H 110 H Respiratory 27 H 20 Rate Blood Pressure 139/89 145/89 O2 Sat by Pulse 98 Oximetry 10/26/21 10/26/21 10/26/21 10:00 10:30 11:00 Temperature Pulse Rate 111 H 98 H 101 H Respiratory 20 27 H 25 H Rate Blood Pressure 146/87 156/87 134/77 O2 Sat by Pulse 99 95 Oximetry 10/26/21 12:30 Temperature 100.4 F H Pulse Rate Respiratory Rate Blood Pressure O2 Sat by Pulse Oximetry - General physical appearance no distress, moderate pain - Eyes PERRL - ENT no hearing loss - Respiratory normal expansion, normal respiratory effort - Abdomen soft, not distended, other (midline incision intact with serous drainage, YURIDIA drain with clear serous output. left drain unchanged. ostomy pink with minimal output and no gas in bag) - Psychiatric oriented to time, oriented to person, oriented to place, other (agitated) - Labs 10/26/21 04:18 10/26/21 04:18 Diabetes panel 10/26/21 Range/Units 04:18 Sodium 135 L (137-145) mmol/L Potassium 4.3 (3.6-5.0) mmol/L Chloride 101.3 (98-107) mmol/L Carbon Dioxide 20 L (22-30) mmol/L BUN 26 H (7-17) mg/dL Creatinine 0.9 (0.6-1.2) mg/dL Glucose 101 H (65-100) mg/dL Calcium 8.2 L (8.4-10.2) mg/dL AST 71 H (5-40) units/L ALT 91 H (7-56) units/L Alkaline Phosphatase 97 (35-129) units/L Total Protein 6.8 (6.3-8.2) g/dL Albumin 2.3 L (3.9-5) g/dL Triglycerides 196 H (2-149) mg/dL Calcium panel 10/26/21 Range/Units 04:18 Calcium 8.2 L (8.4-10.2) mg/dL Phosphorus 4.20 (2.5-4.5) mg/dL Albumin 2.3 L (3.9-5) g/dL Pituitary panel 10/26/21 Range/Units 04:18 Sodium 135 L (137-145) mmol/L Potassium 4.3 (3.6-5.0) mmol/L Chloride 101.3 (98-107) mmol/L Carbon Dioxide 20 L (22-30) mmol/L BUN 26 H (7-17) mg/dL Creatinine 0.9 (0.6-1.2) mg/dL Glucose 101 H (65-100) mg/dL Calcium 8.2 L (8.4-10.2) mg/dL Adrenal panel 10/26/21 Range/Units 04:18 Sodium 135 L (137-145) mmol/L Potassium 4.3 (3.6-5.0) mmol/L Chloride 101.3 (98-107) mmol/L Carbon Dioxide 20 L (22-30) mmol/L BUN 26 H (7-17) mg/dL Creatinine 0.9 (0.6-1.2) mg/dL Glucose 101 H (65-100) mg/dL Calcium 8.2 L (8.4-10.2) mg/dL Total Bilirubin 0.20 (0.1-1.2) mg/dL AST 71 H (5-40) units/L ALT 91 H (7-56) units/L Alkaline Phosphatase 97 (35-129) units/L Total Protein 6.8 (6.3-8.2) g/dL Albumin 2.3 L (3.9-5) g/dL
[2021-10-26] MEDS: ONDANSETRON 4 MG/2 ML INJ IV PRN (14:20)
--- NOTE | 2021-10-26 18:56 | Progress Note ---
Assessment and Plan Assessment and plan: This is a 31-year-old female with obesity and nephrolithiasis admitted with pericolonic abscess secondary to contained perforated diverticulitis, peritonitis complicated by acute blood loss anemia, acute kidney injury and acute hypoxic respiratory failure. Neuro: Anxiety -s/p precedex gtt -prn haldol -Avoid delirium -Reorientation as needed -Maintain sleep-wake cycle -Psych/mental health consulted, appreciate recommendations Cardiac: ST -Blood pressure monitoring per protocol -s/p vasopressor support with Levophed and vasopressin -Echocardiogram shows normal right ventricular function, LVEF 55 to 60% Respiratory: Acute hypoxic respiratory failure -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, diverticulitis with abscess, moderate protein calorie malnutrition, h/o obesity -Surgery consulted, appreciate recommendations -s/p ex lap with washout of pericolonic abscess and drain placement on 09/26/2021 -s/p open left hemicolectomy, appendectomy and partial omentectomy on 10/01 -s/p colostomy creation with closure of abdomen on 10/14/2021 -10/09 CT abdomen/pelvis showed a new collection of air within the left midabdomen -CT guided drain placement with IR -24 hours: -4828 mL -PPI -TPN : Acute kidney injury secondary to vasomotor nephropathy versus contrast induced, Possible Bladder injury -Nephrology and urology consulted, appreciate recommendations -Strict intake and output -Renally dose medications -Avoid nephrotoxic medications -Daily weights -s/p IV Lasix nephrology -Trend BMP -Repeat magnesium -S/p bilateral ureteral stents -10/12 Intra-Op cystoscopy completed and bilateral ureteral stents placed (removed 10/13) -Repeat renal US noted ID: Acute sepsis secondary to pericolonic abscess with appendiceal rupture fistulization, peritonitis, VRE and jean marie albicans in wound culture -Infectious disease consulted, appreciate recommendations -COVID 19 PCR negative -S/p drain placement and diagnostic laparotomy on 09/26 -Antibiotic therapy per ID -completed course -f/u blood culture -Monitor WBC and temperature curve Endo: NAD -Avoid hypoglycemia -SSI -Accu-Cheks q6 -Long-acting insulin, titrate as needed Heme: Acute blood loss anemia, elevated D-dimer, hematuria, leukocytosis, thrombocytosis -Patient had hematuria after ureteral injury sustained from surgical procedures -Urology consulted, appreciate recommendation -10/09 CTA chest with no evidence of PE. Findings suggesting multifocal pneumonia vs pulmonary edema -Bilateral lower extremity Doppler ultrasound shows no sonographic evidence of DVT however shows subcutaneous edema in lower extremities -Trend CBC -Transfuse hemoglobin less than 7 -S/p 7 units PRBC -Monitor for signs of bleeding -SCDs to BLE while in bed -Heparin subq The high probability of a clinically significant, sudden or life threatening deterioration of the [multi] system(s) required my full and direct attention, intervention and personal management. The aggregate critical care time was [60] minutes. This time is in addition to time spent performing reported procedures but includes the following: [x] Data Review and interpretation [x] Patient assessment and monitoring of vital signs [x] Documentation [x] Medication orders and management Disposition Plan: imcu Total Time Spent with Patient (Minutes): 60 History Interval history: This is a 31-year-old female with obesity and nephrolithiasis admitted with complaints of abdominal pain, lower back pain, nausea no with episodes of vomiting over the past dayon 09/24. Patient underwent a CT scan of the abdomen and pelvis and was found to have acute diverticulitis complicated by sepsis and was admitted to the medical floor initiated sepsis protocol. Surgery team was consulted in the emergency department. ICU Course to Date: 10/09: Intubated and sedated, RASS -1 to -2. Recent CXR noted with worsen bilate ral opacities with persistent leukocytosis, elevated lactic, and now on 2 pressors. Patient remains afebrile, and already on IV Abx per ID. Will swab patient for COVID. Given recent surgery orders placed for CTA chest, CT Abd/plevis. And also BLE dopplers due to elevated D-Dimer. Renal function is i mproving, additional IVF to flush out kidney post contrast, Nephrology is also following. Continue TPN and NGT to LIS. 10/10: COVID PCR negative. CTA chest and Abd/plevis noted. No evidence of PE. Pat ient received X1 dose of 20mg IV lasix per Nephro for pulmonary edema, this am CXR with some improvement, renal function is also improving. Wean vent setting as tolerated per CCM. Plan for possible CT guided drainage placement in IR tomorrow. Continue TPN and NGT to LIS. 10/11: Patient with anemia, 1 unit PRBC, scheduled for CT-guided drain image of air pocket. Will place on CPAP on return. Slightly worsening renal function but nephrology is on the case. 10/12: Taken to OR today for diverting ileostomy, given 3 units PRBC yesterday and appropriate response. Surgical culture grew yeast and ID added added fluconazole. 10/13: Hypomagnesemia repleted, renal function improving. Patient remains sedated with fentanyl and propofol. Updated sister and father at bedside. Ureteral stents removed at bedside. Plan to to take patient to the OR tomorrow for second look, abdominal washout, colostomy creation on hold for abdominal closure by surgery. We will hold p.m. dose of heparin. 10/14: Plan to take patient back to OR today, prophylactic anticougulation on hold. 2 units prbc on hold for surgery. Plan to close abd and colostomy creation. Vent weaning on hold till abd closure 10/15: Renal function remains stable, leukocytosis increased, remains sedated on propofol and fentanyl and on mechanical ventilation. Plan is to hold SBT until the weekend. Repeat renal ultrasound pending per urology. 10/16: no acute events overnight. remains on fent and propofol. plan to sbt on monday. 10/17: noted drop in hgb from 8 to 7.2 and will given one unit prbc. remains on fent/propofol. CARMEN overnight. Will retract OETT per rad reading. 10/18: Febrile this am with worsen leukocytosis. Continue IV Abx per ID, orders placed for cultures. Patient tolerating PST, d/w CCM plan for possible extubation today. Abdominal insicion and colostomy noted, no signs of any complications noted. Continue TPN and NGT to LIS per General surgery. 10/19: S/p extubation, now stable on 2L NC. Fevers improved, cultures pending continue IV Abx per ID. Patient is still with absent bowel sounds, continue TPN and NGT to LIS per General surg. Okay to remove brantley per Urology. Electrolytes repleted, repeat labs in the am. Patient is stable for transfer to [facility]. 10/20: Continue current management. Patient remained stable on 2 L of oxygen but appears anxious with increased tachypnea. We will add incentive spirometer. Will check and monitor intermittent x-rays. Continue antibiotics per infectious disease. Renal function has normalized. We will good urine output. We will check blood work in a.m. Awaiting return of bowel function 10/21: Patient on BiPAP this am, xray from yesterday concerning for Aspiration pneumonia vs atalalectsis, patient still with increased WOB although improved compared to yesterday. Leukocytosis a bit worse, will continue to monitor and discuss with ID if more broad spectrum therapy should be considered. She is currently on Bactrim for positive tracheal aspirate with Stenotrophomonas. Continue aspiration precautions. may need repeat xray but will discuss with pulmonary. Continue Strict NPO and Aspiration precautions. Continues on TPN. Prognosis guarded. ?Third spacing 10/22: Back in the ICU due to hypoxia, increased WOB, and tachycardia requiring continuous Bipap. Patient is now on precedex gtt for increased anxiety. Repeat BLE doppler with no evidence of DVT . D/W [facility] paln for CTA chest and CT abd/Pelvis today. Mild improvement in leukocytosis today, patient is afebrile, continue IV Abx per ID. Remains on TPN and NGT to LIS. 10/23: CTA chest and CT Abd/Pelvis noted- no evidence of PE, multiloculated collection along the left mid abdomen have all decreased in size, with persistent anasarca. Will started IV Lasix [id number]. Plan to wean to NC today, continue Bipap Qhs or as needed. Close monitoring of renal function and electrolytes, replete as needed. Plan to Clamp NGT today per General Surgery. Continue TPN. 10/24: Patient tolerated IV lasix, stable on 3L NC this am, no respiratory distress noted. Continue gentle diurese, IV Lasix X3 doses. Remains on NGT c lamped per Gen Surgery. Patient is tolerating ice chips. Patient is okayed for sips of water per General Surgery. Continue TPN and wound care management per General Surgery. 10/25: We will discontinue Precedex, start as needed Haldol and order PICC line. Magnesium repleted. Continues on TPN. 10/26: Patient is tachycardic and has a slight increase in leukocytosis. She continues to have intermittent low-grade fevers. Remains off antibiotics per ID. Continue n.p.o. and resume NG tube to low normal suction. Patient will be transferred to IMCU. Might warrant further testing if leukocytosis and fevers continue. Long discussion at bedside with Dr. Huddleston and Dr. Vega. Hospitalist Physical - Constitutional Vitals: Temp Pulse Resp BP Pulse Ox 98.2 F 131 H 41 H 53/38 99 10/26/21 17:28 10/26/21 18:00 10/26/21 18:00 10/26/21 18:00 10/26/21 16:00 General appearance: Present: no acute distress, obese - EENT Eyes: Present: PERRL, EOM intact ENT: hearing intact, clear oral mucosa, dentition normal - Neck Neck: Present: normal ROM - Respiratory Respiratory effort: normal Respiratory: bilateral: diminished - Cardiovascular Rhythm: regular Heart Sounds: Present: S1 & S2. Absent: systolic murmur, diastolic murmur - Extremities Extremities: no ischemia, pulses intact, pulses symmetrical, No edema, normal temperature, normal color, Full ROM Peripheral Pulses: within normal limits - Abdominal General gastrointestinal: soft, non-tender, non-distended, absent bowel sounds - Integumentary Integumentary: Present: warm, dry - Psychiatric Psychiatric: cooperative - Neurologic Neurologic: CNII-XII intact, no focal deficits, moves all extremities - Allied Health Allied health notes reviewed: nursing, RT Results - Labs CBC & Chem 7: 10/26/21 04:18 10/26/21 04:18 Labs: Laboratory Last Values WBC 14.5 K/mm3 (4.5-11.0) H 10/26/21 04:18 RBC 2.50 M/mm3 (3.65-5.03) L 10/26/21 04:18 Hgb 7.4 gm/dl (10.1-14.3) L 10/26/21 04:18 Hct 21.8 % (30.3-42.9) L 10/26/21 04:18 MCV 87 fl (79-97) 10/26/21 04:18 MCH 30 pg (28-32) 10/26/21 04:18 MCHC 34 % (30-34) 10/26/21 04:18 RDW 17.0 % (13.2-15.2) H 10/26/21 04:18 Plt Count 495 K/mm3 (140-440) H 10/26/21 04:18 Lymph % (Auto) 4.7 % (13.4-35.0) L 10/22/21 09:02 [place] % (Auto) 10.2 % (0.0-7.3) H 10/22/21 09:02 Eos % (Auto) 0.4 % (0.0-4.3) 10/22/21 09:02 Baso % (Auto) 0.2 % (0.0-1.8) 10/22/21 09:02 Lymph # (Auto) 0.8 K/mm3 (1.2-5.4) L 10/22/21 09:02 [place] # (Auto) 1.8 K/mm3 (0.0-0.8) H 10/22/21 09:02 Eos # (Auto) 0.1 K/mm3 (0.0-0.4) 10/22/21 09:02 Baso # (Auto) 0.0 K/mm3 (0.0-0.1) 10/22/21 09:02 Add Manual Diff Complete 10/21/21 16:45 Total Counted 100 10/21/21 16:45 Seg Neutrophils % 84.5 % (40.0-70.0) H 10/22/21 09:02 Seg Neuts % (Manual) 86.0 % (40.0-70.0) H 10/21/21 16:45 Band Neutrophils % 0 % 10/21/21 16:45 Lymphocytes % (Manual) 7.0 % (13.4-35.0) L 10/21/21 16:45 Reactive Lymphs % (Man) 0 % 10/21/21 16:45 Monocytes % (Manual) 7.0 % (0.0-7.3) 10/21/21 16:45 Eosinophils % (Manual) 0 % (0.0-4.3) 10/21/21 16:45 Basophils % (Manual) 0 % (0.0-1.8) 10/21/21 16:45 Metamyelocytes % 0 % 10/21/21 16:45 Myelocytes % 0 % 10/21/21 16:45 Promyelocytes % 0 % 10/21/21 16:45 Blast Cells % 0 % 10/21/21 16:45 Nucleated RBC % Not Reportable 10/21/21 16:45 Seg Neutrophils # 14.5 K/mm3 (1.8-7.7) H 10/22/21 09:02 Seg Neutrophils # Man 18.7 K/mm3 (1.8-7.7) H 10/21/21 16:45 Band Neutrophils # 0.0 K/mm3 10/21/21 16:45 Lymphocytes # (Manual) 1.5 K/mm3 (1.2-5.4) 10/21/21 16:45 Abs React Lymphs (Man) 0.0 K/mm3 10/21/21 16:45 Monocytes # (Manual) 1.5 K/mm3 (0.0-0.8) H 10/21/21 16:45 Eosinophils # (Manual) 0.0 K/mm3 (0.0-0.4) 10/21/21 16:45 Basophils # (Manual) 0.0 K/mm3 (0.0-0.1) 10/21/21 16:45 Metamyelocytes # 0.0 K/mm3 10/21/21 16:45 Myelocytes # 0.0 K/mm3 10/21/21 16:45 Promyelocytes # 0.0 K/mm3 10/21/21 16:45 Blast Cells # 0.0 K/mm3 10/21/21 16:45 Pathologist Review 09/24/21 14:58 WBC Morphology Not Reportable 10/21/21 16:45 Hypersegmented Neuts Rare 10/21/21 16:45 Hyposegmented Neuts Not Reportable 10/21/21 16:45 Hypogranular Neuts Not Reportable 10/21/21 16:45 Smudge Cells Not Reportable 10/21/21 16:45 Toxic Granulation 2+ 10/21/21 16:45 Toxic Vacuolation Not Reportable 10/21/21 16:45 Dohle Bodies Not Reportable 10/21/21 16:45 Pelger-Huet Anomaly Not Reportable 10/21/21 16:45 Marlene Rods Not Reportable 10/21/21 16:45 Platelet Estimate Consistent w auto 10/21/21 16:45 Clumped Platelets Not Reportable 10/21/21 16:45 Plt Clumps, EDTA Not Reportable 10/21/21 16:45 Large Platelets Not Reportable 10/21/21 16:45 Giant Platelets Not Reportable 10/21/21 16:45 Platelet Satelliting Not Reportable 10/21/21 16:45 Plt Morphology Comment Not Reportable 10/21/21 16:45 RBC Morphology Normal 10/21/21 16:45 Dimorphic RBCs Not Reportable 10/21/21 16:45 Polychromasia Not Reportable 10/21/21 16:45 Hypochromasia Not Reportable 10/21/21 16:45 Poikilocytosis Not Reportable 10/21/21 16:45 Anisocytosis Not Reportable 10/21/21 16:45 Microcytosis Not Reportable 10/21/21 16:45 Macrocytosis Not Reportable 10/21/21 16:45 Spherocytes Not Reportable 10/21/21 16:45 Pappenheimer Bodies Not Reportable 10/21/21 16:45 Sickle Cells Not Reportable 10/21/21 16:45 Target Cells Not Reportable 10/21/21 16:45 Tear Drop Cells Not Reportable 10/21/21 16:45 Ovalocytes Not Reportable 10/21/21 16:45 Helmet Cells Not Reportable 10/21/21 16:45 Navas-Haysi Bodies Not Reportable 10/21/21 16:45 Radom Rings Not Reportable 10/21/21 16:45 Douglas Cells Not Reportable 10/21/21 16:45 Bite Cells Not Reportable 10/21/21 16:45 Crenated Cell Not Reportable 10/21/21 16:45 Elliptocytes Not Reportable 10/21/21 16:45 Acanthocytes (Spur) Not Reportable 10/21/21 16:45 Rouleaux Not Reportable 10/21/21 16:45 Hemoglobin C Crystals Not Reportable 10/21/21 16:45 Schistocytes Not Reportable 10/21/21 16:45 Malaria parasites Not Reportable 10/21/21 16:45 Flaco Bodies Not Reportable 10/21/21 16:45 Hem Pathologist Commnt No 10/21/21 16:45 PT 19.0 Sec. (12.2-14.9) H 10/14/21 04:05 INR 1.41 (0.87-1.13) H 10/14/21 04:05 APTT 33.9 Sec. (24.2-36.6) 10/14/21 04:05 D-Dimer > 64455 ng/mlDDU (0-234) H 10/09/21 08:45 ABG pH 7.509 pH Units (7.350-7.450) H 10/21/21 09:05 ABG pCO2 33.7 mm Hg 10/21/21 09:05 ABG pO2 60.3 mm Hg (80.0-90.0) L 10/21/21 09:05 ABG HCO3 26.2 mmol/L (20.0-26.0) H 10/21/21 09:05 ABG O2 Saturation 97.5 % (95.0-99.0) 10/21/21 09:05 ABG O2 Content 9.0 (0.0-44) 10/21/21 09:05 ABG Base Excess 3.0 mmol/L (-2.0-3.0) 10/21/21 09:05 ABG Hemoglobin 6.7 gm/dl (12.0-16.0) L 10/21/21 09:05 ABG Carboxyhemoglobin 1.8 % (0.0-5.0) 10/21/21 09:05 ABG Methemoglobin 0.4 % (0.0-1.5) 10/21/21 09:05 Oxyhemoglobin 95.3 % (95.0-99.0) 10/21/21 09:05 FiO2 28 % 10/21/21 09:05 Sodium 135 mmol/L (137-145) L 10/26/21 04:18 Potassium 4.3 mmol/L (3.6-5.0) 10/26/21 04:18 Chloride 101.3 mmol/L (98-107) 10/26/21 04:18 Carbon Dioxide 20 mmol/L (22-30) L 10/26/21 04:18 Anion Gap 18 mmol/L 10/26/21 04:18 BUN 26 mg/dL (7-17) H 10/26/21 04:18 Creatinine 0.9 mg/dL (0.6-1.2) 10/26/21 04:18 Estimated GFR > 60 ml/min 10/26/21 04:18 BUN/Creatinine Ratio 29 % 10/26/21 04:18 Glucose 101 mg/dL (65-100) H 10/26/21 04:18 POC Glucose 103 mg/dL (70-105) 10/26/21 09:42 Lactic Acid 1.80 mmol/L (0.7-2.0) 10/10/21 04:10 Calcium 8.2 mg/dL (8.4-10.2) L 10/26/21 04:18 Phosphorus 4.20 mg/dL (2.5-4.5) 10/26/21 04:18 Magnesium 2.00 mg/dL (1.7-2.3) 10/26/21 04:18 Ferritin 751.9 ng/mL (10.0-200.0) H 10/09/21 05:31 Total Bilirubin 0.20 mg/dL (0.1-1.2) 10/26/21 04:18 AST 71 units/L (5-40) H 10/26/21 04:18 ALT 91 units/L (7-56) H 10/26/21 04:18 Alkaline Phosphatase 97 units/L (35-129) 10/26/21 04:18 Lactate Dehydrogenase 472 units/L (91-180) H 10/09/21 05:31 Total Creatine Kinase 45 units/L (30-135) 10/13/21 04:05 C-Reactive Protein 15.90 mg/dL (0.00-1.30) H 10/09/21 05:31 Total Protein 6.8 g/dL (6.3-8.2) 10/26/21 04:18 Albumin 2.3 g/dL (3.9-5) L 10/26/21 04:18 Albumin/Globulin Ratio 0.5 % 10/26/21 04:18 Triglycerides 196 mg/dL (2-149) H 10/26/21 04:18 Procalcitonin 12.98 ng/mL (<0.15) 10/09/21 05:31 Urine Color Yellow (Yellow) 10/18/21 11:40 Urine Turbidity Clear (Clear) 10/18/21 11:40 Urine pH 6.0 (5.0-7.0) 10/18/21 11:40 Ur Specific [place] 1.015 (1.003-1.030) 10/18/21 11:40 Urine Protein 30 mg/dl mg/dL (Negative) 10/18/21 11:40 Urine Glucose (UA) Trace mg/dL (Negative) 10/18/21 11:40 Urine Ketones Negative mg/dL (Negative) 10/18/21 11:40 Urine Blood Moderate (Negative) A 10/18/21 11:40 Urine Nitrite Negative (Negative) 10/18/21 11:40 Ur Reducing Substances Not Reportable 09/24/21 14:49 Urine Bilirubin Negative (Negative) 10/18/21 11:40 Urine Ictotest Not Reportable 09/24/21 14:49 Urine Urobilinogen 0.0 mg/dL (<2.0) 10/18/21 11:40 Ur Leukocyte Esterase Negative (Negative) 10/18/21 11:40 Urine WBC (Auto) 50.0 /HPF (0.0-6.0) H 10/18/21 11:40 Urine RBC (Auto) > 182.0 /HPF (0.0-6.0) 10/18/21 11:40 U Epithel Cells (Auto) 2.0 /HPF (0-13.0) 10/18/21 11:40 Urine Bacteria (Auto) 2+ /HPF (Negative) 10/18/21 11:40 Urine WBC Clumps 1+ /HPF 10/18/21 11:40 Hyaline Casts Few /LPF 10/18/21 11:40 Granular Casts Few /LPF 10/18/21 11:40 Urine Mucus 3+ /HPF 10/18/21 11:40 Urine HCG, Qual Negative (Negative) 09/24/21 14:49 Coronavirus (PCR) Negative (Negative) 10/09/21 10:15 Blood Type A POSITIVE 10/17/21 12:50 Antibody Screen Negative 10/17/21 12:50 Crossmatch See Detail 10/17/21 12:50 Brantley/IV: Voiding Method External Female Catheter Active Medications - Current Medications Current Medications: Generic Name Dose Route Start Last Admin Trade Name Freq PRN Reason Stop Dose Admin Acetaminophen 650 mg 10/08/21 21:38 Acetaminophen 325 Mg Tab PO Q6H PRN Pain, Mild (1-3) Albuterol 2.5 mg 09/24/21 18:07 Albuterol 2.5 Mg/3 Ml Nebu IH Q4HRT PRN Shortness Of Breath Dextrose 0 ml 10/03/21 12:37 Dextrose 10% *Hypoglycemia IV PRN PRN Hypoglycemia Diphenhydramine HCl 25 mg 10/04/21 15:14 10/25/21 10:05 Diphenhydramine 50 Mg/Ml Vial IV 25 mg Q6H PRN Administration Itching Haloperidol Lactate 5 mg 10/25/21 13:30 10/26/21 02:37 Haloperidol Lactate 5 Mg/1 Ml Inj IV 10/27/21 13:29 5 mg Q6H PRN Administration Agitation Heparin Sodium (Porcine) 5,000 unit 10/16/21 10:00 10/26/21 09:25 Heparin 5,000 Unit/1 Ml Vial SUB-Q 5,000 unit Q12HR JAZ Administration Hydromorphone HCl 0.5 mg 10/18/21 15:39 10/26/21 15:40 Hydromorphone 1 Mg/1 Ml Inj IV 0.5 mg Q3H PRN Administration Pain, Moderate (4-6) Hydrophilic Ointment 1 applic 10/08/21 21:00 10/24/21 12:50 Lip Therapy Vaseline TP 1 applic Q2HR PRN Administration Dry Lips Amino Acids/Electrolytes/Dextrose 1,999.92 mls @ 83.33 mls/hr 10/25/21 20:00 10/25/21 20:10 Tpn Adult IV 10/26/21 19:59 83.33 mls/hr DAILY@1999 [facility] Administration Protocol Amino Acids/Electrolytes/Dextrose 1,999.92 mls @ 83.33 mls/hr 10/26/21 20:00 Tpn Adult IV 10/27/21 19:59 DAILY@1999 [facility] Protocol Insulin Glargine 5 units 10/13/21 10:00 10/26/21 09:25 Insulin Glargine 100 Units/Ml SUB-Q 5 units QDAY JAZ Administration Insulin Human Regular 0 units 10/10/21 00:00 10/26/21 12:45 Insulin Regular, Human 100 Units/1 Ml SUB-Q Not Given Q6HR [facility] Protocol Labetalol HCl 10 mg 10/01/21 08:31 10/20/21 09:56 Labetalol 20 Mg/4 Ml Inj IV 10 mg Q6H PRN Administration Hypertension Lorazepam 1 mg 10/21/21 12:48 10/26/21 15:44 Lorazepam 2 Mg/Ml Vial IV 1 mg Q4H PRN Administration Anxiety Multi-Ingred Cream/Lotion/Oil/Oint 1 applic 10/08/21 21:00 Mineral Oil/Petrolatum, White Ophth Oint 3.5 Gm OU Q4HR PRN Dry Eye(s) Naloxone HCl 0.1 mg 10/03/21 14:00 Naloxone 0.4 Mg/1 Ml Inj IV Q2MIN PRN Res Rate </= 8 or 02 SAT < 92% Ondansetron HCl 4 mg 09/24/21 18:07 10/26/21 14:20 Ondansetron 4 Mg/2 Ml Inj IV 4 mg Q8H PRN Administration Nausea And Vomiting Pantoprazole Sodium 40 mg 10/20/21 17:00 10/26/21 09:25 Pantoprazole 40 Mg Inj IV 40 mg QDAY JAZ Administration Phenol 1 spray 10/02/21 13:00 10/03/21 10:23 Phenol 1.4% 177 Ml Bottle MM 1 spray PRN PRN Administration Sore Throat Scopolamine 1 each 10/04/21 10:00 10/25/21 09:28 Scopolamine Transdermal Patch 72 Hr TD 1 each Q3D JAZ Administration Sodium Chloride 10 ml 09/24/21 22:00 10/26/21 09:25 Sodium Chloride 0.9% 10 Ml Flush Syringe IV 10 ml BID JAZ Administration Sodium Chloride 10 ml 09/24/21 18:07 09/25/21 08:34 Sodium Chloride 0.9% 10 Ml Flush Syringe IV 10 ml PRN PRN Administration LINE FLUSH Nutrition/Malnutrition Assess - Dietary Evaluation Nutrition/Malnutrition Findings: Nutrition Notes Start: 09/25/21 15:31 Freq: Status: Active Protocol: Document 10/26/21 09:49 BIN (Rec: 10/26/21 11:34 BIN [id number]) Nutrition Notes Initial or Follow up Reassessment Current Diagnosis Acute Kidney Injury,Sepsis, Malnutrition Other Pertinent Diagnosis s/p appendectomy, s/p exp lap with colostomy, anemia, Anxiety. Current Diet CPN at 83.33 ml/hr Labs/Tests 10/26: Na 135, CO2 20, BUN 26, Glu 101, Ca 8.2. Pertinent Medications 10/26: Insulin, others nutritionally unremarkable. Height 5 ft 7 in Weight 109 kg [place] Body Weight (kg) 61.36 BMI 37.6 Weight change and time frame No body weight change reported in 2 days. Weight Status Obese Subjective/Other Information Day 24 TPN. Pt is on nasal cannula, according to Progress notes. PICC line requested, RIJCVL will discontinue, according to Progress notes. Pt tolerating well ice chips and sips of water, with no N/V nor Abdominal Pain, according to Progress notes. Percent of energy/protein needs met: 86% Kcal; 98% AA. Burn Absent Trauma Absent GI Symptoms Other Food Allergy No Skin Integrity/Comment Surgical wound Current % PO Other Minimum of two criteria No #1 Nutrition Diagnosis Altered GI function Diagnosis Progress(for reassessment Continues documentation) Is patient on ventilator? No Is Patient Ambulatory and/or Out of Bed No REE-([facility]-confined to bed) 2200.920 Kcal/Kg value to use for calculation 16 Approximate Energy Requirements Using 1744 kcal/Kg Calculation Used for Recommendations Kcal/kg Additional Notes Protein: 2 g/Kg; 123 g/day IBW . Fluids: 1 mL/Kcal, or as per MD. Nutrition Intervention Nutrition Support: Continue CPN at 83.33ml/hr: Osmolality: 1595. Phos 50 mmol. 10/90 % Cl to CO2 ratio. MVI 10 ml. Trace Elements 1 ml. Kcal 1,500 Protein (gm) 120 Carbohydrates (gm) 300 Fat (gm) 0 Fluid (mL) 2,000 Fiber (gm) 0 % RDI: 86% Kcal; 98% AA. Goal #1 Provide at least 75% of energy /protein needs through Parenteral Feeding during LOS. Goal #2 Maintain body weight within +/ -3% of admission body weight during LOS. Follow-Up By: 10/27/21 Additional Comments Continue monitoring CPN tolerance and BM. BMP, Phos, and Mg labs ordered .
[2021-10-26] MEDS ORDERED: TOTAL PARENTERAL NUTRITION 1,999.92 ML IV SCH (20:00)
[2021-10-27] MEDS: LORazepam 2 MG/ML VIAL IV PRN ×4 (00:15→21:54)
[2021-10-27] MEDS: HYDROmorphone 1 MG/1 ML INJ IV PRN ×7 (00:15→23:31)
[2021-10-27] MEDS: INSULIN REGULAR, HUMAN 100 UNITS/1 ML SUB-Q SCH ×3 (01:27→13:56)
[2021-10-27 05:22] LABS: Blood Urea Nitrogen 21 mg/dL (7-17); Calcium 8.2 mg/dL (8.4-10.2); Hemolysis Index 0
[2021-10-27 05:37] LABS: BUN/Creatinine Ratio 30
[2021-10-27] MEDS ORDERED: MAGNESIUM CITRATE 300 ML ORAL LIQD PO SCH (10:00)
--- NOTE | 2021-10-27 10:12 | Progress Note ---
Assessment and Plan Postop day #13 status post colostomy creation with closure of abdomen. Episodic low fever and low grade tachycardia. Leukocytosis continues. Awaiting full return of bowel function. will trial mag citrate to stimulate BM. Sputum culture positive for gram-negative rods. Pt finished course abx per ID. Respiratory insufficiency - continue BIPAP per pulmonary prn. Would like to increase PT exercises as tolerated. will hold clear liquids. pt can have ice chips. Resume NGT to LIWS. Creatinine has normalized she is making good urine output. Continue supportive care. Since pt expresses a lot of anxiety, depression and frustration about current condition would like behavioral health to see her again. Postop day #16 status post colorectal anastomosis takedown, with abdominal washout and ABThera wound VAC. Postop day #24 status post laparoscopic converted to open left hemicolectomy with appendectomy for perforated appendicitis with fistulization to sigmoid colon. Subjective Date of service: 10/27/21 Narrative: No acute events overnight. Pt was very drowsy after getting some pain medication. Currently pt denies pain and she has been afebrile over the past 24 hours. she denies any n/v since day before yesterday. Objective Vital Signs - 12hr 10/26/21 10/26/21 10/26/21 22:30 23:00 23:20 Temperature Pulse Rate 129 H 129 H 130 H Respiratory 34 H 36 H 28 H Rate Blood Pressure 145/98 136/81 136/81 O2 Sat by Pulse 99 99 Oximetry 10/26/21 10/27/21 10/27/21 23:30 00:00 00:30 Temperature 98.8 F Pulse Rate 119 H 131 H 116 H Respiratory 19 34 H 31 H Rate Blood Pressure 146/94 159/78 117/75 O2 Sat by Pulse 99 94 Oximetry 10/27/21 10/27/21 10/27/21 01:00 01:30 02:00 Temperature Pulse Rate 117 H 119 H 118 H Respiratory 27 H 30 H 33 H Rate Blood Pressure 118/68 121/66 117/68 O2 Sat by Pulse 95 95 96 Oximetry 10/27/21 10/27/21 10/27/21 02:30 03:00 03:30 Temperature Pulse Rate 118 H 133 H 120 H Respiratory 38 H 30 H 37 H Rate Blood Pressure 119/62 122/86 125/97 O2 Sat by Pulse 95 97 Oximetry 10/27/21 10/27/21 10/27/21 04:00 04:30 05:00 Temperature 98.1 F Pulse Rate 116 H 114 H 118 H Respiratory 29 H 26 H 28 H Rate Blood Pressure 135/81 151/85 135/77 O2 Sat by Pulse 99 94 94 Oximetry 10/27/21 10/27/21 10/27/21 05:30 06:00 06:30 Temperature Pulse Rate 115 H 117 H 116 H Respiratory 28 H 28 H 31 H Rate Blood Pressure 126/79 126/81 115/73 O2 Sat by Pulse 96 100 99 Oximetry 10/27/21 10/27/21 10/27/21 07:00 07:17 07:30 Temperature 98.7 F Pulse Rate 139 H 130 H Respiratory 36 H 45 H Rate Blood Pressure 135/84 135/84 O2 Sat by Pulse 93 Oximetry 10/27/21 10/27/21 10/27/21 08:00 08:30 09:00 Temperature 98.1 F Pulse Rate 134 H 131 H 113 H Respiratory 17 23 21 Rate Blood Pressure 135/85 138/82 138/82 O2 Sat by Pulse 99 Oximetry 10/27/21 09:30 Temperature Pulse Rate 134 H Respiratory 16 Rate Blood Pressure 154/101 O2 Sat by Pulse 97 Oximetry - General physical appearance well developed, no distress, no pain - ENT no hearing loss - Respiratory normal expansion, normal respiratory effort - Abdomen soft, other (midline incision intact, dry dressing but serous drainage on marcus. YURIDIA drain serous, left drain unchanged. ostomy pink with dark flid draining. No air in bag. ) - Labs 10/26/21 04:18 10/27/21 04:00 Diabetes panel 10/27/21 Range/Units 04:00 Sodium 135 L (137-145) mmol/L Potassium 4.2 (3.6-5.0) mmol/L Chloride 99.3 (98-107) mmol/L Carbon Dioxide 23 (22-30) mmol/L BUN 21 H (7-17) mg/dL Creatinine 0.7 (0.6-1.2) mg/dL Glucose 116 H (65-100) mg/dL Calcium 8.2 L (8.4-10.2) mg/dL Calcium panel 10/27/21 Range/Units 04:00 Calcium 8.2 L (8.4-10.2) mg/dL Phosphorus 4.00 (2.5-4.5) mg/dL Pituitary panel 10/27/21 Range/Units 04:00 Sodium 135 L (137-145) mmol/L Potassium 4.2 (3.6-5.0) mmol/L Chloride 99.3 (98-107) mmol/L Carbon Dioxide 23 (22-30) mmol/L BUN 21 H (7-17) mg/dL Creatinine 0.7 (0.6-1.2) mg/dL Glucose 116 H (65-100) mg/dL Calcium 8.2 L (8.4-10.2) mg/dL Adrenal panel 10/27/21 Range/Units 04:00 Sodium 135 L (137-145) mmol/L Potassium 4.2 (3.6-5.0) mmol/L Chloride 99.3 (98-107) mmol/L Carbon Dioxide 23 (22-30) mmol/L BUN 21 H (7-17) mg/dL Creatinine 0.7 (0.6-1.2) mg/dL Glucose 116 H (65-100) mg/dL Calcium 8.2 L (8.4-10.2) mg/dL
[2021-10-27] MEDS: HEPARIN 5,000 UNIT/1 ML VIAL SUB-Q SCH ×2 (10:45→21:54)
[2021-10-27] MEDS: INSULIN GLARGINE 100 UNITS/ML SUB-Q SCH (10:46)
[2021-10-27] MEDS: PANTOPRAZOLE 40 MG INJ IV SCH (10:46)
[2021-10-27 10:52] LABS: Hematocrit 22.6 % (30.3-42.9); Hemoglobin 7.3 gm/dl (10.1-14.3); Mean Corpuscular HGB Conc 32 % (30-34); Mean Corpuscular Volume 88 fl (79-97); Platelet Count 515 K/mm3 (140-440); Red Blood Count 2.56 M/mm3 (3.65-5.03); Red Cell Distribution Width 17.1 % (13.2-15.2)
--- NOTE | 2021-10-27 12:17 | Progress Note ---
Assessment and Plan Cultures: 09/24/2021 blood culture: No growth 09/30/2021 YURIDIA drain wound culture: VRE - Enterococcus faecium 10/08/2021 blood culture: No growth 10/11/2021 intra-abdominal surgical culture: Jo Ann albicans, MSSA, Stenotrophomonas 10/12/2021 tracheal culture: No growth 10/18/2021 blood culture: no growth 10/18/2021 urine culture: no growth 10/18/2021 sputum culture: Stenotrophomonas A/P: 31-year-old female past medical history obesity, nephrolithiasis admitted with: #Sepsis: Secondary to intra-abdominal infection. 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 pna, fluid overload more likely. Extubated 08/20/2021. Cultures growing Stenotrophomonas. #Leukocytosis, reactive thrombocytosis #BRYANNA: resolved. #Obesity Recs: -remains afebrile, WBC slowly trending down, continue to monitor off abx Mónica Swan MD, FACP[facility] O: [phone] F: [phone] C: [phone] Subjective Date of service: 10/27/21 Principal diagnosis: Septic shock; AHRF; PNA; BRYANNA; s/p appendectomy; VRE infection; Peritonitis Interval history: No fever. Remains off oxygen. Tachycardic. Denies any complaints other than dizziness. Objective - Exam Narrative Exam: Physical Exam: Constitutional: Awake, alert, no distress Head, Ears, Nose: Normocephalic, atraumatic. External ears, nose normal Eyes: Conjunctivae/corneas clear. No icterus. No ptosis. Neck: supple Cardiovascular: S1, S2 + Respiratory: AE fair bilaterally GI: Soft, dressing, drain present, colostomy + Musculoskeletal: Obese, edema + Skin: No rash or abscess Hem/Lymphatic: No palpable cervical or supraclavicular nodes. No lymphangitis Psych: anxious, no agitation Neurological: Awake, alert, answering questions - Constitutional Vitals: Vital Signs Temp Pulse Resp BP Pulse Ox 99.1 F 131 H 33 H 154/97 99 10/27/21 11:45 10/27/21 12:00 10/27/21 12:00 10/27/21 12:00 10/27/21 12:00 Temperature -Last 24 Hours Temperature 99.1 F Temperature 98.1 F Temperature 98.7 F Temperature 98.1 F Temperature 98.8 F Temperature 98.9 F Temperature 98.2 F Temperature 100.4 F - Labs CBC & Chem 7: 10/27/21 10:14 10/27/21 04:00 Labs: Abnormal lab results 10/27/21 10/27/21 10/27/21 Range/Units 04:00 05:17 10:14 WBC 11.9 H (4.5-11.0) K/mm3 RBC 2.56 L (3.65-5.03) M/mm3 Hgb 7.3 L (10.1-14.3) gm/dl Hct 22.6 L (30.3-42.9) % RDW 17.1 H (13.2-15.2) % Plt Count 515 H (140-440) K/mm3 Sodium 135 L (137-145) mmol/L BUN 21 H (7-17) mg/dL Glucose 116 H (65-100) mg/dL POC Glucose 117 H (70-105) mg/dL Calcium 8.2 L (8.4-10.2) mg/dL
--- NOTE | 2021-10-27 13:21 | Progress Note ---
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 Open left hemicolectomy and partial omentectomy Peritonitis Leukocytosis Diverticulitis with absces Acute renal failure Acute blood loss anemia Gross Hematuria - s/p PICC line - will order CXR - continue TPN - advance oral diet per surgery - started on B-blockers (BP's good) - prn anxiolytics - wound care per RN / WCN under surgeons direction - continue care as below otherwise; - continue to wean supplemental oxygen for target O2 sat's > 90% acutely - aspiration precautions - prn bronchodilators with pulmonary hygiene per RT - avoid nephrotoxins, renally dose all medications - continue accuchecks with glycemic control per SSI (While critically ill target blood glucose of 140-180 mg/dL; avoid hypoglycemia) - avoid benzodiazepine's, reduce the possibility of delirium - AB's per ID rec's (s/p Diflucan & Flagyl) - Maintenance of sleep-wake cycle, avoid delirium - continue enteral nutritional support at goal rate as tolerated - G.I. & VTE prophylaxis - PT/OT/ROM exercises - continue mobility protocols for pressure ulcer prophylaxis - Monitor hemodynamics closely - continue other care per attending / other consultants - discharge planning ongoing concurrently COVID SPECIFIC INTERVENTIONS - COVID-19 PCR negative .... 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 s/p appendectomy; VRE infection; Open left hemicolectomy and partial omentectomy; Peritonitis; Div erticulitis with abscess;' BRYANNA; ABLA; Gross Hematuria Seen and examined at bedside; 24hour events reviewed; nursing and respiratory care staff consulted; no adverse overnight events reported to me; resting in bed; no new issues respiratory-garcia; tachycardic and anxious; no emesis or overt aspiration; no high grade fevers Objective Vital Signs - 12hr 10/27/21 10/27/21 10/27/21 01:30 02:00 02:30 Temperature Pulse Rate 119 H 118 H 118 H Respiratory 30 H 33 H 38 H Rate Blood Pressure 121/66 117/68 119/62 O2 Sat by Pulse 95 96 95 Oximetry 10/27/21 10/27/21 10/27/21 03:00 03:30 04:00 Temperature 98.1 F Pulse Rate 133 H 120 H 116 H Respiratory 30 H 37 H 29 H Rate Blood Pressure 122/86 125/97 135/81 O2 Sat by Pulse 97 99 Oximetry 10/27/21 10/27/21 10/27/21 04:30 05:00 05:30 Temperature Pulse Rate 114 H 118 H 115 H Respiratory 26 H 28 H 28 H Rate Blood Pressure 151/85 135/77 126/79 O2 Sat by Pulse 94 94 96 Oximetry 10/27/21 10/27/21 10/27/21 06:00 06:30 07:00 Temperature Pulse Rate 117 H 116 H 139 H Respiratory 28 H 31 H 36 H Rate Blood Pressure 126/81 115/73 135/84 O2 Sat by Pulse 100 99 93 Oximetry 10/27/21 10/27/21 10/27/21 07:17 07:30 08:00 Temperature 98.7 F 98.1 F Pulse Rate 130 H 134 H Respiratory 45 H 17 Rate Blood Pressure 135/84 135/85 O2 Sat by Pulse 99 Oximetry 10/27/21 10/27/21 10/27/21 08:30 09:00 09:30 Temperature Pulse Rate 131 H 113 H 134 H Respiratory 23 21 16 Rate Blood Pressure 138/82 138/82 154/101 O2 Sat by Pulse 97 Oximetry 10/27/21 10/27/21 10/27/21 10:00 10:30 11:00 Temperature Pulse Rate 113 H 119 H 138 H Respiratory 26 H 30 H 21 Rate Blood Pressure 133/85 133/85 133/85 O2 Sat by Pulse 95 Oximetry 10/27/21 10/27/21 10/27/21 11:30 11:45 12:00 Temperature 99.1 F Pulse Rate 141 H 131 H Respiratory 17 33 H Rate Blood Pressure 169/79 154/97 O2 Sat by Pulse 99 Oximetry Constitutional: appears uncomfortable, other (young obese female with mildly increased respiratory effort at rest) Eyes: non-icteric ENT: oropharynx moist Neck: supple, other (large circumference; RIJ CVL) Effort: mildly labored Ascultation: Bilateral: diminished breath sounds, rhonchi Percussion: Bilateral: not dull Cardiovascular: regular rate and rhythm, other (S1,S2) Gastrointestinal: hypoactive bowel sounds, soft, tender (mild), other (YURIDIA drains, colostomy) Integumentary: normal, other (post-op changes) Extremities: no cyanosis, pulses normal, no ischemia or petechiae, edema Neurologic: non-focal exam, pupils equal and round, CN II-XII normal, motor strength normal and Psychiatric: anxious CBC and BMP: 10/28/21 06:15 10/28/21 Unknown ABG, PT/INR, D-dimer: ABG ABG pH 7.509 pH Units (7.350-7.450) H 10/21/21 09:05 ABG pCO2 33.7 mm Hg 10/21/21 09:05 ABG pO2 60.3 mm Hg (80.0-90.0) L 10/21/21 09:05 ABG O2 Saturation 97.5 % (95.0-99.0) 10/21/21 09:05 PT/INR, D-dimer PT 19.0 Sec. (12.2-14.9) H 10/14/21 04:05 INR 1.41 (0.87-1.13) H 10/14/21 04:05 D-Dimer > 64052 ng/mlDDU (0-234) H 10/09/21 08:45 Abnormal lab findings: Abnormal Labs 09/24/21 09/24/21 09/24/21 14:49 14:58 14:58 WBC 32.4 H RBC Hgb Hct MCH MCHC RDW Plt Count 535 H Lymph % (Auto) [place] % (Auto) Lymph # (Auto) [place] # (Auto) Seg Neutrophils % Seg Neuts % (Manual) 82.0 H Lymphocytes % (Manual) 2.0 L Monocytes % (Manual) Nucleated RBC % Seg Neutrophils # Seg Neutrophils # Man 26.6 H Lymphocytes # (Manual) 0.6 L Monocytes # (Manual) 1.6 H PT INR D-Dimer ABG pH ABG pO2 ABG HCO3 ABG O2 Saturation ABG Base Excess ABG Hemoglobin Oxyhemoglobin Sodium 134 L Potassium 3.5 L Chloride 97.6 L Carbon Dioxide BUN Creatinine Glucose 119 H POC Glucose Lactic Acid Calcium Phosphorus Magnesium Ferritin AST ALT Lactate Dehydrogenase Total Creatine Kinase C-Reactive Protein Total Protein 6.1 L Albumin 3.3 L Triglycerides Urine Blood Urine WBC (Auto) U Epithel Cells (Auto) 18.0 H Crossmatch 09/25/21 09/25/21 09/26/21 05:47 05:47 04:20 WBC 25.4 H 23.6 H RBC 3.54 L Hgb Hct MCH MCHC RDW Plt Count 466 H 486 H Lymph % (Auto) [place] % (Auto) Lymph # (Auto) [place] # (Auto) Seg Neutrophils % Seg Neuts % (Manual) 93.0 H 86.0 H Lymphocytes % (Manual) 4.0 L 3.0 L Monocytes % (Manual) Nucleated RBC % Seg Neutrophils # Seg Neutrophils # Man 23.6 H 20.3 H Lymphocytes # (Manual) 1.0 L 0.7 L Monocytes # (Manual) 0.9 H PT INR D-Dimer ABG pH ABG pO2 ABG HCO3 ABG O2 Saturation ABG Base Excess ABG Hemoglobin Oxyhemoglobin Sodium 136 L Potassium 3.0 L Chloride Carbon Dioxide 21 L BUN Creatinine Glucose POC Glucose Lactic Acid Calcium 7.8 L Phosphorus Magnesium Ferritin AST ALT Lactate Dehydrogenase Total Creatine Kinase C-Reactive Protein Total Protein Albumin Triglycerides Urine Blood Urine WBC (Auto) U Epithel Cells (Auto) Crossmatch 09/26/21 09/27/21 09/27/21 04:20 08:28 08:28 WBC 20.6 H RBC 3.42 L Hgb 9.9 L Hct 29.5 L D MCH MCHC RDW Plt Count Lymph % (Auto) [place] % (Auto) Lymph # (Auto) [place] # (Auto) Seg Neutrophils % Seg Neuts % (Manual) 94.1 H Lymphocytes % (Manual) 1.0 L Monocytes % (Manual) Nucleated RBC % Seg Neutrophils # Seg Neutrophils # Man 19.4 H Lymphocytes # (Manual) 0.2 L Monocytes # (Manual) PT INR D-Dimer ABG pH ABG pO2 ABG HCO3 ABG O2 Saturation ABG Base Excess ABG Hemoglobin Oxyhemoglobin Sodium Potassium 3.2 L Chloride Carbon Dioxide 20 L BUN Creatinine Glucose 137 H POC Glucose Lactic Acid Calcium 8.3 L 8.2 L Phosphorus Magnesium Ferritin AST ALT Lactate Dehydrogenase Total Creatine Kinase C-Reactive Protein Total Protein Albumin Triglycerides Urine Blood Urine WBC (Auto) U Epithel Cells (Auto) Crossmatch 09/28/21 09/28/21 09/29/21 04:55 15:35 07:02 WBC 15.1 H 16.5 H RBC 3.34 L 3.20 L Hgb 9.3 L 9.1 L Hct 28.7 L 27.3 L MCH MCHC RDW 15.3 H Plt Count 444 H 469 H Lymph % (Auto) [place] % (Auto) Lymph # (Auto) [place] # (Auto) 0.9 H Seg Neutrophils % 89.3 H Seg Neuts % (Manual) 88.0 H 80.0 H Lymphocytes % (Manual) 9.0 L 8.0 L Monocytes % (Manual) Nucleated RBC % Seg Neutrophils # 14.0 H Seg Neutrophils # Man 13.3 H 13.2 H Lymphocytes # (Manual) Monocytes # (Manual) PT INR D-Dimer ABG pH ABG pO2 ABG HCO3 ABG O2 Saturation ABG Base Excess ABG Hemoglobin Oxyhemoglobin Sodium Potassium 3.3 L Chloride 109.4 H Carbon Dioxide 20 L BUN Creatinine 0.5 L Glucose POC Glucose Lactic Acid Calcium 7.9 L Phosphorus Magnesium Ferritin AST ALT Lactate Dehydrogenase Total Creatine Kinase C-Reactive Protein Total Protein Albumin Triglycerides Urine Blood Urine WBC (Auto) U Epithel Cells (Auto) Crossmatch 09/30/21 09/30/21 10/01/21 05:40 05:40 07:49 WBC 17.4 H 17.9 H RBC 3.37 L 3.32 L Hgb 9.2 L 9.3 L Hct 28.4 L 28.3 L MCH 27 L MCHC RDW 15.4 H 15.5 H Plt Count 530 H 604 H Lymph % (Auto) [place] % (Auto) Lymph # (Auto) [place] # (Auto) Seg Neutrophils % Seg Neuts % (Manual) 91.0 H 72.0 H Lymphocytes % (Manual) 9.0 L 1.0 L Monocytes % (Manual) 8.0 H Nucleated RBC % 1.0 H Seg Neutrophils # Seg Neutrophils # Man 15.8 H 12.9 H Lymphocytes # (Manual) 0.2 L Monocytes # (Manual) 1.4 H PT INR D-Dimer ABG pH ABG pO2 ABG HCO3 ABG O2 Saturation ABG Base Excess ABG Hemoglobin Oxyhemoglobin Sodium Potassium 3.5 L Chloride Carbon Dioxide 21 L BUN Creatinine 0.5 L Glucose POC Glucose Lactic Acid Calcium 8.0 L Phosphorus Magnesium Ferritin AST ALT Lactate Dehydrogenase Total Creatine Kinase C-Reactive Protein Total Protein Albumin Triglycerides Urine Blood Urine WBC (Auto) U Epithel Cells (Auto) Crossmatch 10/01/21 10/01/21 10/02/21 07:49 10:45 05:41 WBC 23.2 H RBC 2.90 L Hgb 7.9 L Hct 24.8 L MCH 27 L MCHC RDW 15.3 H Plt Count 621 H Lymph % (Auto) [place] % (Auto) Lymph # (Auto) [place] # (Auto) Seg Neutrophils % Seg Neuts % (Manual) 88.0 H Lymphocytes % (Manual) 2.0 L Monocytes % (Manual) Nucleated RBC % Seg Neutrophils # Seg Neutrophils # Man 20.4 H Lymphocytes # (Manual) 0.5 L Monocytes # (Manual) 1.4 H PT INR D-Dimer ABG pH ABG pO2 ABG HCO3 ABG O2 Saturation ABG Base Excess ABG Hemoglobin Oxyhemoglobin Sodium Potassium Chloride Carbon Dioxide 20 L BUN Creatinine 0.5 L Glucose POC Glucose Lactic Acid Calcium 7.6 L Phosphorus Magnesium Ferritin AST ALT Lactate Dehydrogenase Total Creatine Kinase C-Reactive Protein Total Protein Albumin Triglycerides Urine Blood Urine WBC (Auto) U Epithel Cells (Auto) Crossmatch See Detail 10/02/21 10/02/21 10/02/21 05:41 07:47 11:10 WBC RBC Hgb Hct MCH MCHC RDW Plt Count Lymph % (Auto) [place] % (Auto) Lymph # (Auto) [place] # (Auto) Seg Neutrophils % Seg Neuts % (Manual) Lymphocytes % (Manual) Monocytes % (Manual) Nucleated RBC % Seg Neutrophils # Seg Neutrophils # Man Lymphocytes # (Manual) Monocytes # (Manual) PT INR D-Dimer ABG pH ABG pO2 ABG HCO3 ABG O2 Saturation ABG Base Excess ABG Hemoglobin Oxyhemoglobin Sodium Potassium Chloride Carbon Dioxide BUN Creatinine Glucose 130 H POC Glucose 145 H 120 H Lactic Acid Calcium 6.9 L Phosphorus Magnesium Ferritin AST ALT Lactate Dehydrogenase Total Creatine Kinase C-Reactive Protein Total Protein Albumin Triglycerides Urine Blood Urine WBC (Auto) U Epithel Cells (Auto) Crossmatch 10/02/21 10/03/21 10/03/21 16:14 04:55 04:55 WBC 26.1 H RBC 2.31 L Hgb 6.3 L Hct 19.8 L* MCH MCHC RDW 15.9 H Plt Count 598 H Lymph % (Auto) [place] % (Auto) Lymph # (Auto) [place] # (Auto) Seg Neutrophils % Seg Neuts % (Manual) 82.0 H Lymphocytes % (Manual) 1.0 L Monocytes % (Manual) 10.0 H Nucleated RBC % Seg Neutrophils # Seg Neutrophils # Man 21.4 H Lymphocytes # (Manual) 0.3 L Monocytes # (Manual) 2.6 H PT INR D-Dimer ABG pH ABG pO2 ABG HCO3 ABG O2 Saturation ABG Base Excess ABG Hemoglobin Oxyhemoglobin Sodium Potassium Chloride Carbon Dioxide BUN 22 H Creatinine 1.7 H D Glucose 145 H POC Glucose 109 H Lactic Acid Calcium 6.4 L Phosphorus Magnesium 2.40 H Ferritin AST ALT Lactate Dehydrogenase Total Creatine Kinase C-Reactive Protein Total Protein 4.2 L Albumin 1.6 L Triglycerides Urine Blood Urine WBC (Auto) U Epithel Cells (Auto) Crossmatch 10/03/21 10/03/21 10/03/21 07:15 11:49 17:06 WBC RBC Hgb Hct MCH MCHC RDW Plt Count Lymph % (Auto) [place] % (Auto) Lymph # (Auto) [place] # (Auto) Seg Neutrophils % Seg Neuts % (Manual) Lymphocytes % (Manual) Monocytes % (Manual) Nucleated RBC % Seg Neutrophils # Seg Neutrophils # Man Lymphocytes # (Manual) Monocytes # (Manual) PT INR D-Dimer ABG pH ABG pO2 ABG HCO3 ABG O2 Saturation ABG Base Excess ABG Hemoglobin Oxyhemoglobin Sodium Potassium Chloride Carbon Dioxide BUN Creatinine Glucose POC Glucose 162 H 171 H 174 H Lactic Acid Calcium Phosphorus Magnesium Ferritin AST ALT Lactate Dehydrogenase Total Creatine Kinase C-Reactive Protein Total Protein Albumin Triglycerides Urine Blood Urine WBC (Auto) U Epithel Cells (Auto) Crossmatch 10/03/21 10/04/21 10/04/21 23:31 04:44 04:44 WBC 26.4 H RBC 2.33 L Hgb 6.6 L Hct 19.4 L* MCH MCHC RDW 16.1 H Plt Count 602 H Lymph % (Auto) [place] % (Auto) Lymph # (Auto) [place] # (Auto) Seg Neutrophils % Seg Neuts % (Manual) 80.0 H Lymphocytes % (Manual) 5.0 L Monocytes % (Manual) Nucleated RBC % Seg Neutrophils # Seg Neutrophils # Man 21.1 H Lymphocytes # (Manual) Monocytes # (Manual) 1.8 H PT INR D-Dimer ABG pH ABG pO2 ABG HCO3 ABG O2 Saturation ABG Base Excess ABG Hemoglobin Oxyhemoglobin Sodium 135 L Potassium 3.4 L Chloride Carbon Dioxide 21 L BUN 28 H Creatinine 2.0 H Glucose 171 H POC Glucose 179 H Lactic Acid Calcium 6.7 L Phosphorus 1.30 L D Magnesium 2.40 H Ferritin AST ALT Lactate Dehydrogenase Total Creatine Kinase C-Reactive Protein Total Protein Albumin Triglycerides Urine Blood Urine WBC (Auto) U Epithel Cells (Auto) Crossmatch 10/04/21 10/04/21 10/04/21 05:25 12:01 13:30 WBC RBC Hgb Hct MCH MCHC RDW Plt Count Lymph % (Auto) [place] % (Auto) Lymph # (Auto) [place] # (Auto) Seg Neutrophils % Seg Neuts % (Manual) Lymphocytes % (Manual) Monocytes % (Manual) Nucleated RBC % Seg Neutrophils # Seg Neutrophils # Man Lymphocytes # (Manual) Monocytes # (Manual) PT INR D-Dimer ABG pH ABG pO2 ABG HCO3 ABG O2 Saturation ABG Base Excess ABG Hemoglobin Oxyhemoglobin Sodium Potassium Chloride Carbon Dioxide BUN Creatinine Glucose POC Glucose 174 H 172 H Lactic Acid Calcium Phosphorus Magnesium Ferritin AST ALT Lactate Dehydrogenase Total Creatine Kinase C-Reactive Protein Total Protein Albumin Triglycerides Urine Blood Urine WBC (Auto) U Epithel Cells (Auto) Crossmatch See Detail 10/04/21 10/04/21 10/04/21 16:47 20:28 22:23 WBC RBC Hgb 8.5 L Hct 25.1 L MCH MCHC RDW Plt Count Lymph % (Auto) [place] % (Auto) Lymph # (Auto) [place] # (Auto) Seg Neutrophils % Seg Neuts % (Manual) Lymphocytes % (Manual) Monocytes % (Manual) Nucleated RBC % Seg Neutrophils # Seg Neutrophils # Man Lymphocytes # (Manual) Monocytes # (Manual) PT INR D-Dimer ABG pH ABG pO2 ABG HCO3 ABG O2 Saturation ABG Base Excess ABG Hemoglobin Oxyhemoglobin Sodium Potassium Chloride Carbon Dioxide BUN Creatinine Glucose POC Glucose 135 H 152 H Lactic Acid Calcium Phosphorus Magnesium Ferritin AST ALT Lactate Dehydrogenase Total Creatine Kinase C-Reactive Protein Total Protein Albumin Triglycerides Urine Blood Urine WBC (Auto) U Epithel Cells (Auto) Crossmatch 10/05/21 10/05/21 10/05/21 04:40 04:40 04:40 WBC 24.7 H RBC 3.02 L Hgb 8.4 L Hct 25.5 L MCH MCHC RDW 16.2 H Plt Count 644 H Lymph % (Auto) [place] % (Auto) Lymph # (Auto) [place] # (Auto) Seg Neutrophils % Seg Neuts % (Manual) 91.0 H Lymphocytes % (Manual) 7.0 L Monocytes % (Manual) Nucleated RBC % Seg Neutrophils # Seg Neutrophils # Man 22.5 H Lymphocytes # (Manual) Monocytes # (Manual) PT 17.8 H INR 1.31 H D-Dimer ABG pH ABG pO2 ABG HCO3 ABG O2 Saturation ABG Base Excess ABG Hemoglobin Oxyhemoglobin Sodium 135 L Potassium Chloride Carbon Dioxide BUN 29 H Creatinine 2.1 H Glucose 156 H POC Glucose Lactic Acid Calcium 7.6 L Phosphorus 1.90 L D Magnesium Ferritin AST ALT Lactate Dehydrogenase Total Creatine Kinase C-Reactive Protein Total Protein 5.2 L D Albumin 1.8 L Triglycerides Urine Blood Urine WBC (Auto) U Epithel Cells (Auto) Crossmatch 10/05/21 10/05/21 10/05/21 05:08 18:17 23:37 WBC RBC Hgb Hct MCH MCHC RDW Plt Count Lymph % (Auto) [place] % (Auto) Lymph # (Auto) [place] # (Auto) Seg Neutrophils % Seg Neuts % (Manual) Lymphocytes % (Manual) Monocytes % (Manual) Nucleated RBC % Seg Neutrophils # Seg Neutrophils # Man Lymphocytes # (Manual) Monocytes # (Manual) PT INR D-Dimer ABG pH ABG pO2 ABG HCO3 ABG O2 Saturation ABG Base Excess ABG Hemoglobin Oxyhemoglobin Sodium Potassium Chloride Carbon Dioxide BUN Creatinine Glucose POC Glucose 156 H 119 H 130 H Lactic Acid Calcium Phosphorus Magnesium Ferritin AST ALT Lactate Dehydrogenase Total Creatine Kinase C-Reactive Protein Total Protein Albumin Triglycerides Urine Blood Urine WBC (Auto) U Epithel Cells (Auto) Crossmatch 10/06/21 10/06/21 10/06/21 04:27 05:27 05:27 WBC 23.4 H RBC 2.84 L Hgb 7.8 L Hct 23.9 L MCH MCHC RDW 16.2 H Plt Count 712 H Lymph % (Auto) [place] % (Auto) Lymph # (Auto) [place] # (Auto) Seg Neutrophils % Seg Neuts % (Manual) Lymphocytes % (Manual) Monocytes % (Manual) Nucleated RBC % Seg Neutrophils # Seg Neutrophils # Man Lymphocytes # (Manual) Monocytes # (Manual) PT INR D-Dimer ABG pH ABG pO2 ABG HCO3 ABG O2 Saturation ABG Base Excess ABG Hemoglobin Oxyhemoglobin Sodium 134 L Potassium Chloride Carbon Dioxide 20 L BUN 28 H Creatinine 1.9 H Glucose 132 H POC Glucose 132 H Lactic Acid Calcium 7.8 L Phosphorus Magnesium Ferritin AST ALT Lactate Dehydrogenase Total Creatine Kinase 242 H C-Reactive Protein Total Protein Albumin Triglycerides Urine Blood Urine WBC (Auto) U Epithel Cells (Auto) Crossmatch 10/06/21 10/06/21 10/06/21 16:40 20:50 23:39 WBC RBC Hgb Hct MCH MCHC RDW Plt Count Lymph % (Auto) [place] % (Auto) Lymph # (Auto) [place] # (Auto) Seg Neutrophils % Seg Neuts % (Manual) Lymphocytes % (Manual) Monocytes % (Manual) Nucleated RBC % Seg Neutrophils # Seg Neutrophils # Man Lymphocytes # (Manual) Monocytes # (Manual) PT INR D-Dimer ABG pH ABG pO2 ABG HCO3 ABG O2 Saturation ABG Base Excess ABG Hemoglobin Oxyhemoglobin Sodium Potassium Chloride Carbon Dioxide BUN Creatinine Glucose POC Glucose 133 H 116 H 132 H Lactic Acid Calcium Phosphorus Magnesium Ferritin AST ALT Lactate Dehydrogenase Total Creatine Kinase C-Reactive Protein Total Protein Albumin Triglycerides Urine Blood Urine WBC (Auto) U Epithel Cells (Auto) Crossmatch 10/07/21 10/07/21 10/07/21 05:09 05:13 09:43 WBC 22.3 H RBC 2.81 L Hgb 7.8 L Hct 24.0 L MCH MCHC RDW 16.5 H Plt Count 733 H Lymph % (Auto) [place] % (Auto) Lymph # (Auto) [place] # (Auto) Seg Neutrophils % Seg Neuts % (Manual) 85.0 H Lymphocytes % (Manual) 1.0 L Monocytes % (Manual) Nucleated RBC % Seg Neutrophils # Seg Neutrophils # Man 19.0 H Lymphocytes # (Manual) 0.2 L Monocytes # (Manual) 1.6 H PT INR D-Dimer ABG pH ABG pO2 ABG HCO3 ABG O2 Saturation ABG Base Excess ABG Hemoglobin Oxyhemoglobin Sodium 136 L Potassium Chloride Carbon Dioxide 20 L BUN 29 H Creatinine 1.9 H Glucose 140 H POC Glucose 139 H Lactic Acid Calcium 7.6 L Phosphorus Magnesium Ferritin AST ALT Lactate Dehydrogenase Total Creatine Kinase C-Reactive Protein Total Protein Albumin Triglycerides Urine Blood Urine WBC (Auto) U Epithel Cells (Auto) Crossmatch 10/07/21 10/07/21 10/08/21 11:38 17:44 00:20 WBC RBC Hgb Hct MCH MCHC RDW Plt Count Lymph % (Auto) [place] % (Auto) Lymph # (Auto) [place] # (Auto) Seg Neutrophils % Seg Neuts % (Manual) Lymphocytes % (Manual) Monocytes % (Manual) Nucleated RBC % Seg Neutrophils # Seg Neutrophils # Man Lymphocytes # (Manual) Monocytes # (Manual) PT INR D-Dimer ABG pH ABG pO2 ABG HCO3 ABG O2 Saturation ABG Base Excess ABG Hemoglobin Oxyhemoglobin Sodium Potassium Chloride Carbon Dioxide BUN Creatinine Glucose POC Glucose 126 H 113 H 129 H Lactic Acid Calcium Phosphorus Magnesium Ferritin AST ALT Lactate Dehydrogenase Total Creatine Kinase C-Reactive Protein Total Protein Albumin Triglycerides Urine Blood Urine WBC (Auto) U Epithel Cells (Auto) Crossmatch 10/08/21 10/08/21 10/08/21 05:26 05:26 05:29 WBC 21.8 H RBC 2.84 L Hgb 7.8 L Hct 24.1 L MCH 27 L MCHC RDW 16.5 H Plt Count 789 H Lymph % (Auto) [place] % (Auto) Lymph # (Auto) [place] # (Auto) Seg Neutrophils % Seg Neuts % (Manual) Lymphocytes % (Manual) Monocytes % (Manual) Nucleated RBC % Seg Neutrophils # Seg Neutrophils # Man Lymphocytes # (Manual) Monocytes # (Manual) PT INR D-Dimer ABG pH ABG pO2 ABG HCO3 ABG O2 Saturation ABG Base Excess ABG Hemoglobin Oxyhemoglobin Sodium 136 L Potassium Chloride Carbon Dioxide 20 L BUN 31 H Creatinine 1.7 H Glucose 134 H POC Glucose 123 H Lactic Acid Calcium 7.9 L Phosphorus 4.60 H D Magnesium Ferritin AST ALT Lactate Dehydrogenase Total Creatine Kinase C-Reactive Protein Total Protein Albumin Triglycerides Urine Blood Urine WBC (Auto) U Epithel Cells (Auto) Crossmatch 10/08/21 10/08/21 10/08/21 11:53 17:07 20:08 WBC RBC Hgb Hct MCH MCHC RDW Plt Count Lymph % (Auto) [place] % (Auto) Lymph # (Auto) [place] # (Auto) Seg Neutrophils % Seg Neuts % (Manual) Lymphocytes % (Manual) Monocytes % (Manual) Nucleated RBC % Seg Neutrophils # Seg Neutrophils # Man Lymphocytes # (Manual) Monocytes # (Manual) PT INR D-Dimer ABG pH 7.308 L ABG pO2 40.2 L ABG HCO3 15.7 L ABG O2 Saturation 68 L ABG Base Excess -9.6 L ABG Hemoglobin 9.7 L Oxyhemoglobin 67.8 L Sodium Potassium Chloride Carbon Dioxide BUN Creatinine Glucose POC Glucose 128 H 139 H Lactic Acid Calcium Phosphorus Magnesium Ferritin AST ALT Lactate Dehydrogenase Total Creatine Kinase C-Reactive Protein Total Protein Albumin Triglycerides Urine Blood Urine WBC (Auto) U Epithel Cells (Auto) Crossmatch 10/08/21 10/08/21 10/08/21 21:30 22:55 22:55 WBC RBC Hgb Hct MCH MCHC RDW Plt Count Lymph % (Auto) [place] % (Auto) Lymph # (Auto) [place] # (Auto) Seg Neutrophils % Seg Neuts % (Manual) Lymphocytes % (Manual) Monocytes % (Manual) Nucleated RBC % Seg Neutrophils # Seg Neutrophils # Man Lymphocytes # (Manual) Monocytes # (Manual) PT INR D-Dimer ABG pH ABG pO2 43.8 L ABG HCO3 19.5 L ABG O2 Saturation 70.7 L ABG Base Excess -5.3 L ABG Hemoglobin 8.6 L Oxyhemoglobin 69.4 L Sodium Potassium Chloride Carbon Dioxide BUN Creatinine Glucose POC Glucose Lactic Acid 2.50 H* Calcium Phosphorus Magnesium Ferritin AST ALT Lactate Dehydrogenase Total Creatine Kinase C-Reactive Protein Total Protein Albumin Triglycerides Urine Blood Urine WBC (Auto) U Epithel Cells (Auto) Crossmatch See Detail 10/09/21 10/09/21 10/09/21 03:12 05:31 05:31 WBC 20.3 H RBC 2.70 L Hgb 7.4 L Hct 23.1 L MCH 27 L MCHC RDW 16.6 H Plt Count 786 H Lymph % (Auto) [place] % (Auto) Lymph # (Auto) [place] # (Auto) Seg Neutrophils % Seg Neuts % (Manual) 88.0 H Lymphocytes % (Manual) 3.0 L Monocytes % (Manual) Nucleated RBC % Seg Neutrophils # Seg Neutrophils # Man 17.9 H Lymphocytes # (Manual) 0.6 L Monocytes # (Manual) 1.2 H PT INR D-Dimer ABG pH ABG pO2 ABG HCO3 ABG O2 Saturation ABG Base Excess ABG Hemoglobin Oxyhemoglobin Sodium 136 L Potassium Chloride Carbon Dioxide 20 L BUN 32 H Creatinine 1.5 H Glucose 214 H POC Glucose 190 H Lactic Acid Calcium 7.5 L Phosphorus Magnesium Ferritin AST ALT Lactate Dehydrogenase Total Creatine Kinase C-Reactive Protein Total Protein 5.8 L Albumin 2.3 L Triglycerides Urine Blood Urine WBC (Auto) U Epithel Cells (Auto) Crossmatch 10/09/21 10/09/21 10/09/21 05:31 05:31 05:31 WBC RBC Hgb Hct MCH MCHC RDW Plt Count Lymph % (Auto) [place] % (Auto) Lymph # (Auto) [place] # (Auto) Seg Neutrophils % Seg Neuts % (Manual) Lymphocytes % (Manual) Monocytes % (Manual) Nucleated RBC % Seg Neutrophils # Seg Neutrophils # Man Lymphocytes # (Manual) Monocytes # (Manual) PT INR D-Dimer ABG pH ABG pO2 ABG HCO3 ABG O2 Saturation ABG Base Excess ABG Hemoglobin Oxyhemoglobin Sodium Potassium Chloride Carbon Dioxide BUN Creatinine Glucose POC Glucose Lactic Acid 2.20 H* Calcium Phosphorus Magnesium Ferritin 751.9 H AST ALT Lactate Dehydrogenase Total Creatine Kinase C-Reactive Protein 15.90 H Total Protein Albumin Triglycerides Urine Blood Urine WBC (Auto) U Epithel Cells (Auto) Crossmatch 10/09/21 10/09/21 10/09/21 05:31 08:45 12:08 WBC RBC Hgb Hct MCH MCHC RDW Plt Count Lymph % (Auto) [place] % (Auto) Lymph # (Auto) [place] # (Auto) Seg Neutrophils % Seg Neuts % (Manual) Lymphocytes % (Manual) Monocytes % (Manual) Nucleated RBC % Seg Neutrophils # Seg Neutrophils # Man Lymphocytes # (Manual) Monocytes # (Manual) PT INR D-Dimer > 59018 H ABG pH ABG pO2 54.3 L ABG HCO3 ABG O2 Saturation 86.6 L ABG Base Excess -2.6 L ABG Hemoglobin 7.2 L Oxyhemoglobin 85.3 L Sodium Potassium Chloride Carbon Dioxide BUN Creatinine Glucose POC Glucose Lactic Acid Calcium Phosphorus Magnesium Ferritin AST ALT Lactate Dehydrogenase 472 H Total Creatine Kinase C-Reactive Protein Total Protein Albumin Triglycerides Urine Blood Urine WBC (Auto) U Epithel Cells (Auto) Crossmatch 10/09/21 10/09/21 10/10/21 12:19 17:43 00:30 WBC RBC Hgb Hct MCH MCHC RDW Plt Count Lymph % (Auto) [place] % (Auto) Lymph # (Auto) [place] # (Auto) Seg Neutrophils % Seg Neuts % (Manual) Lymphocytes % (Manual) Monocytes % (Manual) Nucleated RBC % Seg Neutrophils # Seg Neutrophils # Man Lymphocytes # (Manual) Monocytes # (Manual) PT INR D-Dimer ABG pH ABG pO2 ABG HCO3 ABG O2 Saturation ABG Base Excess ABG Hemoglobin Oxyhemoglobin Sodium Potassium Chloride Carbon Dioxide BUN Creatinine Glucose POC Glucose 151 H 136 H 132 H Lactic Acid Calcium Phosphorus Magnesium Ferritin AST ALT Lactate Dehydrogenase Total Creatine Kinase C-Reactive Protein Total Protein Albumin Triglycerides Urine Blood Urine WBC (Auto) U Epithel Cells (Auto) Crossmatch 10/10/21 10/10/21 10/10/21 04:10 04:10 05:41 WBC 20.8 H RBC 2.54 L Hgb 7.1 L Hct 21.8 L MCH MCHC RDW 16.6 H Plt Count 740 H Lymph % (Auto) [place] % (Auto) Lymph # (Auto) [place] # (Auto) Seg Neutrophils % Seg Neuts % (Manual) Lymphocytes % (Manual) Monocytes % (Manual) Nucleated RBC % Seg Neutrophils # Seg Neutrophils # Man Lymphocytes # (Manual) Monocytes # (Manual) PT INR D-Dimer ABG pH ABG pO2 ABG HCO3 ABG O2 Saturation ABG Base Excess ABG Hemoglobin Oxyhemoglobin Sodium 130 L Potassium Chloride 97.9 L Carbon Dioxide 19 L BUN 37 H Creatinine 1.4 H Glucose 181 H POC Glucose 150 H Lactic Acid Calcium 7.8 L Phosphorus Magnesium Ferritin AST ALT Lactate Dehydrogenase Total Creatine Kinase C-Reactive Protein Total Protein Albumin Triglycerides Urine Blood Urine WBC (Auto) U Epithel Cells (Auto) Crossmatch 10/10/21 10/10/21 10/10/21 11:10 16:00 23:50 WBC RBC Hgb Hct MCH MCHC RDW Plt Count Lymph % (Auto) [place] % (Auto) Lymph # (Auto) [place] # (Auto) Seg Neutrophils % Seg Neuts % (Manual) Lymphocytes % (Manual) Monocytes % (Manual) Nucleated RBC % Seg Neutrophils # Seg Neutrophils # Man Lymphocytes # (Manual) Monocytes # (Manual) PT INR D-Dimer ABG pH ABG pO2 ABG HCO3 ABG O2 Saturation ABG Base Excess ABG Hemoglobin Oxyhemoglobin Sodium Potassium Chloride Carbon Dioxide BUN Creatinine Glucose POC Glucose 136 H 151 H 129 H Lactic Acid Calcium Phosphorus Magnesium Ferritin AST ALT Lactate Dehydrogenase Total Creatine Kinase C-Reactive Protein Total Protein Albumin Triglycerides Urine Blood Urine WBC (Auto) U Epithel Cells (Auto) Crossmatch 10/10/21 10/11/21 10/11/21 Unknown 03:30 03:30 WBC 23.2 H RBC 2.39 L Hgb 6.7 L Hct 20.3 L MCH MCHC RDW 16.7 H Plt Count 701 H Lymph % (Auto) [place] % (Auto) Lymph # (Auto) [place] # (Auto) Seg Neutrophils % Seg Neuts % (Manual) Lymphocytes % (Manual) Monocytes % (Manual) Nucleated RBC % Seg Neutrophils # Seg Neutrophils # Man Lymphocytes # (Manual) Monocytes # (Manual) PT INR D-Dimer ABG pH 7.505 H ABG pO2 246.1 H ABG HCO3 ABG O2 Saturation 99.4 H ABG Base Excess ABG Hemoglobin 6.0 L Oxyhemoglobin Sodium 135 L Potassium Chloride Carbon Dioxide 20 L BUN 38 H Creatinine 1.6 H Glucose 118 H POC Glucose Lactic Acid Calcium 7.9 L Phosphorus Magnesium Ferritin AST ALT Lactate Dehydrogenase Total Creatine Kinase C-Reactive Protein Total Protein Albumin Triglycerides Urine Blood Urine WBC (Auto) U Epithel Cells (Auto) Crossmatch 10/11/21 10/11/21 10/12/21 11:41 17:51 00:18 WBC RBC Hgb Hct MCH MCHC RDW Plt Count Lymph % (Auto) [place] % (Auto) Lymph # (Auto) [place] # (Auto) Seg Neutrophils % Seg Neuts % (Manual) Lymphocytes % (Manual) Monocytes % (Manual) Nucleated RBC % Seg Neutrophils # Seg Neutrophils # Man Lymphocytes # (Manual) Monocytes # (Manual) PT INR D-Dimer ABG pH ABG pO2 ABG HCO3 ABG O2 Saturation ABG Base Excess ABG Hemoglobin Oxyhemoglobin Sodium Potassium Chloride Carbon Dioxide BUN Creatinine Glucose POC Glucose 128 H 138 H 174 H Lactic Acid Calcium Phosphorus Magnesium Ferritin AST ALT Lactate Dehydrogenase Total Creatine Kinase C-Reactive Protein Total Protein Albumin Triglycerides Urine Blood Urine WBC (Auto) U Epithel Cells (Auto) Crossmatch 10/12/21 10/12/21 10/12/21 05:39 06:02 06:02 WBC 19.1 H RBC 3.56 L Hgb 10.0 L D Hct MCH MCHC RDW 17.0 H Plt Count 712 H Lymph % (Auto) [place] % (Auto) Lymph # (Auto) [place] # (Auto) Seg Neutrophils % Seg Neuts % (Manual) Lymphocytes % (Manual) Monocytes % (Manual) Nucleated RBC % Seg Neutrophils # Seg Neutrophils # Man Lymphocytes # (Manual) Monocytes # (Manual) PT INR D-Dimer ABG pH ABG pO2 ABG HCO3 ABG O2 Saturation ABG Base Excess ABG Hemoglobin Oxyhemoglobin Sodium Potassium Chloride Carbon Dioxide BUN 37 H Creatinine 1.5 H Glucose 172 H POC Glucose 158 H Lactic Acid Calcium 8.1 L Phosphorus Magnesium Ferritin AST ALT Lactate Dehydrogenase Total Creatine Kinase C-Reactive Protein Total Protein Albumin Triglycerides Urine Blood Urine WBC (Auto) U Epithel Cells (Auto) Crossmatch 10/12/21 10/12/21 10/12/21 06:02 06:05 17:43 WBC RBC Hgb Hct MCH MCHC RDW Plt Count Lymph % (Auto) [place] % (Auto) Lymph # (Auto) [place] # (Auto) Seg Neutrophils % Seg Neuts % (Manual) Lymphocytes % (Manual) Monocytes % (Manual) Nucleated RBC % Seg Neutrophils # Seg Neutrophils # Man Lymphocytes # (Manual) Monocytes # (Manual) PT 17.1 H INR 1.24 H D-Dimer ABG pH ABG pO2 ABG HCO3 ABG O2 Saturation ABG Base Excess ABG Hemoglobin Oxyhemoglobin Sodium Potassium Chloride Carbon Dioxide BUN Creatinine Glucose POC Glucose 173 H Lactic Acid Calcium Phosphorus Magnesium Ferritin AST ALT Lactate Dehydrogenase Total Creatine Kinase C-Reactive Protein Total Protein Albumin Triglycerides Urine Blood Urine WBC (Auto) U Epithel Cells (Auto) Crossmatch See Detail 10/12/21 10/12/21 10/13/21 23:28 Unknown 04:05 WBC RBC Hgb 10.0 L Hct MCH MCHC RDW Plt Count Lymph % (Auto) [place] % (Auto) Lymph # (Auto) [place] # (Auto) Seg Neutrophils % Seg Neuts % (Manual) Lymphocytes % (Manual) Monocytes % (Manual) Nucleated RBC % Seg Neutrophils # Seg Neutrophils # Man Lymphocytes # (Manual) Monocytes # (Manual) PT INR D-Dimer ABG pH ABG pO2 ABG HCO3 ABG O2 Saturation ABG Base Excess ABG Hemoglobin Oxyhemoglobin Sodium Potassium Chloride Carbon Dioxide BUN 34 H Creatinine Glucose 200 H POC Glucose 178 H Lactic Acid Calcium 7.5 L Phosphorus Magnesium 1.60 L Ferritin AST ALT Lactate Dehydrogenase Total Creatine Kinase C-Reactive Protein Total Protein Albumin Triglycerides Urine Blood Urine WBC (Auto) U Epithel Cells (Auto) Crossmatch 10/13/21 10/13/21 10/13/21 05:09 10:55 13:34 WBC 23.8 H RBC 3.14 L Hgb 9.2 L Hct 27.7 L MCH MCHC RDW 17.5 H Plt Count 572 H Lymph % (Auto) [place] % (Auto) Lymph # (Auto) [place] # (Auto) Seg Neutrophils % Seg Neuts % (Manual) Lymphocytes % (Manual) Monocytes % (Manual) Nucleated RBC % Seg Neutrophils # Seg Neutrophils # Man Lymphocytes # (Manual) Monocytes # (Manual) PT INR D-Dimer ABG pH ABG pO2 ABG HCO3 ABG O2 Saturation ABG Base Excess ABG Hemoglobin Oxyhemoglobin Sodium Potassium Chloride Carbon Dioxide BUN Creatinine Glucose POC Glucose 210 H 168 H Lactic Acid Calcium Phosphorus Magnesium Ferritin AST ALT Lactate Dehydrogenase Total Creatine Kinase C-Reactive Protein Total Protein Albumin Triglycerides Urine Blood Urine WBC (Auto) U Epithel Cells (Auto) Crossmatch 10/13/21 10/13/21 10/14/21 15:35 23:10 04:05 WBC 19.4 H RBC 2.98 L Hgb 8.4 L Hct 26.3 L MCH MCHC RDW 17.1 H Plt Count 561 H Lymph % (Auto) [place] % (Auto) Lymph # (Auto) [place] # (Auto) Seg Neutrophils % Seg Neuts % (Manual) Lymphocytes % (Manual) Monocytes % (Manual) Nucleated RBC % Seg Neutrophils # Seg Neutrophils # Man Lymphocytes # (Manual) Monocytes # (Manual) PT INR D-Dimer ABG pH ABG pO2 ABG HCO3 ABG O2 Saturation ABG Base Excess ABG Hemoglobin Oxyhemoglobin Sodium Potassium Chloride Carbon Dioxide BUN Creatinine Glucose POC Glucose 154 H 135 H Lactic Acid Calcium Phosphorus Magnesium Ferritin AST ALT Lactate Dehydrogenase Total Creatine Kinase C-Reactive Protein Total Protein Albumin Triglycerides Urine Blood Urine WBC (Auto) U Epithel Cells (Auto) Crossmatch 10/14/21 10/14/21 10/14/21 04:05 04:05 05:08 WBC RBC Hgb Hct MCH MCHC RDW Plt Count Lymph % (Auto) [place] % (Auto) Lymph # (Auto) [place] # (Auto) Seg Neutrophils % Seg Neuts % (Manual) Lymphocytes % (Manual) Monocytes % (Manual) Nucleated RBC % Seg Neutrophils # Seg Neutrophils # Man Lymphocytes # (Manual) Monocytes # (Manual) PT 19.0 H INR 1.41 H D-Dimer ABG pH ABG pO2 ABG HCO3 ABG O2 Saturation ABG Base Excess ABG Hemoglobin Oxyhemoglobin Sodium Potassium Chloride Carbon Dioxide BUN 33 H Creatinine Glucose 310 H POC Glucose 178 H Lactic Acid Calcium 7.4 L Phosphorus Magnesium Ferritin AST ALT Lactate Dehydrogenase Total Creatine Kinase C-Reactive Protein Total Protein Albumin Triglycerides Urine Blood Urine WBC (Auto) U Epithel Cells (Auto) Crossmatch 10/14/21 10/14/21 10/14/21 09:29 10:45 11:40 WBC RBC Hgb Hct MCH MCHC RDW Plt Count Lymph % (Auto) [place] % (Auto) Lymph # (Auto) [place] # (Auto) Seg Neutrophils % Seg Neuts % (Manual) Lymphocytes % (Manual) Monocytes % (Manual) Nucleated RBC % Seg Neutrophils # Seg Neutrophils # Man Lymphocytes # (Manual) Monocytes # (Manual) PT INR D-Dimer ABG pH 7.342 L ABG pO2 96.0 H ABG HCO3 26.2 H ABG O2 Saturation ABG Base Excess ABG Hemoglobin 6.1 L Oxyhemoglobin 94.9 L Sodium Potassium Chloride Carbon Dioxide BUN Creatinine Glucose POC Glucose 155 H 137 H Lactic Acid Calcium Phosphorus Magnesium Ferritin AST ALT Lactate Dehydrogenase Total Creatine Kinase C-Reactive Protein Total Protein Albumin Triglycerides Urine Blood Urine WBC (Auto) U Epithel Cells (Auto) Crossmatch 10/14/21 10/14/21 10/14/21 15:40 21:21 23:46 WBC RBC Hgb Hct MCH MCHC RDW Plt Count Lymph % (Auto) [place] % (Auto) Lymph # (Auto) [place] # (Auto) Seg Neutrophils % Seg Neuts % (Manual) Lymphocytes % (Manual) Monocytes % (Manual) Nucleated RBC % Seg Neutrophils # Seg Neutrophils # Man Lymphocytes # (Manual) Monocytes # (Manual) PT INR D-Dimer ABG pH ABG pO2 ABG HCO3 ABG O2 Saturation ABG Base Excess ABG Hemoglobin Oxyhemoglobin Sodium Potassium Chloride Carbon Dioxide BUN Creatinine Glucose POC Glucose 140 H 111 H 164 H Lactic Acid Calcium Phosphorus Magnesium Ferritin AST ALT Lactate Dehydrogenase Total Creatine Kinase C-Reactive Protein Total Protein Albumin Triglycerides Urine Blood Urine WBC (Auto) U Epithel Cells (Auto) Crossmatch 10/15/21 10/15/21 10/15/21 05:06 05:40 05:40 WBC 22.7 H RBC 2.94 L Hgb 8.7 L Hct 25.8 L MCH MCHC RDW 17.2 H Plt Count 620 H Lymph % (Auto) [place] % (Auto) Lymph # (Auto) [place] # (Auto) Seg Neutrophils % Seg Neuts % (Manual) Lymphocytes % (Manual) Monocytes % (Manual) Nucleated RBC % Seg Neutrophils # Seg Neutrophils # Man Lymphocytes # (Manual) Monocytes # (Manual) PT INR D-Dimer ABG pH ABG pO2 ABG HCO3 ABG O2 Saturation ABG Base Excess ABG Hemoglobin Oxyhemoglobin Sodium Potassium Chloride Carbon Dioxide BUN 30 H Creatinine Glucose 175 H POC Glucose 155 H Lactic Acid Calcium 7.4 L Phosphorus Magnesium Ferritin AST ALT Lactate Dehydrogenase Total Creatine Kinase C-Reactive Protein Total Protein Albumin Triglycerides Urine Blood Urine WBC (Auto) U Epithel Cells (Auto) Crossmatch 10/15/21 10/15/21 10/15/21 11:32 17:23 23:35 WBC RBC Hgb Hct MCH MCHC RDW Plt Count Lymph % (Auto) [place] % (Auto) Lymph # (Auto) [place] # (Auto) Seg Neutrophils % Seg Neuts % (Manual) Lymphocytes % (Manual) Monocytes % (Manual) Nucleated RBC % Seg Neutrophils # Seg Neutrophils # Man Lymphocytes # (Manual) Monocytes # (Manual) PT INR D-Dimer ABG pH ABG pO2 ABG HCO3 ABG O2 Saturation ABG Base Excess ABG Hemoglobin Oxyhemoglobin Sodium Potassium Chloride Carbon Dioxide BUN Creatinine Glucose POC Glucose 157 H 136 H 143 H Lactic Acid Calcium Phosphorus Magnesium Ferritin AST ALT Lactate Dehydrogenase Total Creatine Kinase C-Reactive Protein Total Protein Albumin Triglycerides Urine Blood Urine WBC (Auto) U Epithel Cells (Auto) Crossmatch 10/16/21 10/16/21 10/16/21 04:00 04:00 05:08 WBC 18.0 H RBC 2.80 L Hgb 8.0 L Hct 24.7 L MCH MCHC RDW 17.4 H Plt Count 543 H Lymph % (Auto) [place] % (Auto) Lymph # (Auto) [place] # (Auto) Seg Neutrophils % Seg Neuts % (Manual) Lymphocytes % (Manual) Monocytes % (Manual) Nucleated RBC % Seg Neutrophils # Seg Neutrophils # Man Lymphocytes # (Manual) Monocytes # (Manual) PT INR D-Dimer ABG pH ABG pO2 ABG HCO3 ABG O2 Saturation ABG Base Excess ABG Hemoglobin Oxyhemoglobin Sodium Potassium Chloride Carbon Dioxide BUN 31 H Creatinine Glucose 153 H POC Glucose 149 H Lactic Acid Calcium 8.0 L Phosphorus Magnesium Ferritin AST ALT Lactate Dehydrogenase Total Creatine Kinase C-Reactive Protein Total Protein 5.5 L Albumin 1.9 L Triglycerides Urine Blood Urine WBC (Auto) U Epithel Cells (Auto) Crossmatch 10/16/21 10/16/21 10/16/21 11:45 17:37 23:48 WBC RBC Hgb Hct MCH MCHC RDW Plt Count Lymph % (Auto) [place] % (Auto) Lymph # (Auto) [place] # (Auto) Seg Neutrophils % Seg Neuts % (Manual) Lymphocytes % (Manual) Monocytes % (Manual) Nucleated RBC % Seg Neutrophils # Seg Neutrophils # Man Lymphocytes # (Manual) Monocytes # (Manual) PT INR D-Dimer ABG pH ABG pO2 ABG HCO3 ABG O2 Saturation ABG Base Excess ABG Hemoglobin Oxyhemoglobin Sodium Potassium Chloride Carbon Dioxide BUN Creatinine Glucose POC Glucose 144 H 130 H 134 H Lactic Acid Calcium Phosphorus Magnesium Ferritin AST ALT Lactate Dehydrogenase Total Creatine Kinase C-Reactive Protein Total Protein Albumin Triglycerides Urine Blood Urine WBC (Auto) U Epithel Cells (Auto) Crossmatch 10/17/21 10/17/21 10/17/21 04:00 04:00 05:37 WBC 14.0 H RBC 2.46 L Hgb 7.2 L Hct 21.7 L MCH MCHC RDW 17.4 H Plt Count 526 H Lymph % (Auto) [place] % (Auto) Lymph # (Auto) [place] # (Auto) Seg Neutrophils % Seg Neuts % (Manual) Lymphocytes % (Manual) Monocytes % (Manual) Nucleated RBC % Seg Neutrophils # Seg Neutrophils # Man Lymphocytes # (Manual) Monocytes # (Manual) PT INR D-Dimer ABG pH ABG pO2 ABG HCO3 ABG O2 Saturation ABG Base Excess ABG Hemoglobin Oxyhemoglobin Sodium Potassium Chloride Carbon Dioxide BUN 29 H Creatinine Glucose 138 H POC Glucose 137 H Lactic Acid Calcium 7.5 L Phosphorus Magnesium Ferritin AST ALT Lactate Dehydrogenase Total Creatine Kinase C-Reactive Protein Total Protein Albumin Triglycerides Urine Blood Urine WBC (Auto) U Epithel Cells (Auto) Crossmatch 10/17/21 10/17/21 10/17/21 11:45 12:50 16:13 WBC RBC Hgb Hct MCH MCHC RDW Plt Count Lymph % (Auto) [place] % (Auto) Lymph # (Auto) [place] # (Auto) Seg Neutrophils % Seg Neuts % (Manual) Lymphocytes % (Manual) Monocytes % (Manual) Nucleated RBC % Seg Neutrophils # Seg Neutrophils # Man Lymphocytes # (Manual) Monocytes # (Manual) PT INR D-Dimer ABG pH ABG pO2 ABG HCO3 ABG O2 Saturation ABG Base Excess ABG Hemoglobin Oxyhemoglobin Sodium Potassium Chloride Carbon Dioxide BUN Creatinine Glucose POC Glucose 145 H 128 H Lactic Acid Calcium Phosphorus Magnesium Ferritin AST ALT Lactate Dehydrogenase Total Creatine Kinase C-Reactive Protein Total Protein Albumin Triglycerides Urine Blood Urine WBC (Auto) U Epithel Cells (Auto) Crossmatch See Detail 10/17/21 10/18/21 10/18/21 23:46 04:28 04:28 WBC 16.6 H RBC 2.81 L Hgb 8.4 L Hct 24.4 L MCH MCHC RDW 16.8 H Plt Count 516 H Lymph % (Auto) [place] % (Auto) Lymph # (Auto) [place] # (Auto) Seg Neutrophils % Seg Neuts % (Manual) Lymphocytes % (Manual) Monocytes % (Manual) Nucleated RBC % Seg Neutrophils # Seg Neutrophils # Man Lymphocytes # (Manual) Monocytes # (Manual) PT INR D-Dimer ABG pH ABG pO2 ABG HCO3 ABG O2 Saturation ABG Base Excess ABG Hemoglobin Oxyhemoglobin Sodium Potassium Chloride Carbon Dioxide BUN 26 H Creatinine Glucose 144 H POC Glucose 124 H Lactic Acid Calcium 7.5 L Phosphorus Magnesium Ferritin AST ALT 6 L Lactate Dehydrogenase Total Creatine Kinase C-Reactive Protein Total Protein 6.1 L Albumin 2.0 L Triglycerides Urine Blood Urine WBC (Auto) U Epithel Cells (Auto) Crossmatch 10/18/21 10/18/21 10/18/21 05:19 11:34 11:40 WBC RBC Hgb Hct MCH MCHC RDW Plt Count Lymph % (Auto) [place] % (Auto) Lymph # (Auto) [place] # (Auto) Seg Neutrophils % Seg Neuts % (Manual) Lymphocytes % (Manual) Monocytes % (Manual) Nucleated RBC % Seg Neutrophils # Seg Neutrophils # Man Lymphocytes # (Manual) Monocytes # (Manual) PT INR D-Dimer ABG pH 7.466 H ABG pO2 90.6 H ABG HCO3 29.0 H ABG O2 Saturation ABG Base Excess 4.9 H ABG Hemoglobin 8.6 L Oxyhemoglobin Sodium Potassium Chloride Carbon Dioxide BUN Creatinine Glucose POC Glucose 128 H Lactic Acid Calcium Phosphorus Magnesium Ferritin AST ALT Lactate Dehydrogenase Total Creatine Kinase C-Reactive Protein Total Protein Albumin Triglycerides Urine Blood Moderate A Urine WBC (Auto) 50.0 H U Epithel Cells (Auto) Crossmatch 10/18/21 10/18/21 10/19/21 12:20 16:18 01:28 WBC RBC Hgb Hct MCH MCHC RDW Plt Count Lymph % (Auto) [place] % (Auto) Lymph # (Auto) [place] # (Auto) Seg Neutrophils % Seg Neuts % (Manual) Lymphocytes % (Manual) Monocytes % (Manual) Nucleated RBC % Seg Neutrophils # Seg Neutrophils # Man Lymphocytes # (Manual) Monocytes # (Manual) PT INR D-Dimer ABG pH ABG pO2 ABG HCO3 ABG O2 Saturation ABG Base Excess ABG Hemoglobin Oxyhemoglobin Sodium Potassium Chloride Carbon Dioxide BUN Creatinine Glucose POC Glucose 151 H 139 H 126 H Lactic Acid Calcium Phosphorus Magnesium Ferritin AST ALT Lactate Dehydrogenase Total Creatine Kinase C-Reactive Protein Total Protein Albumin Triglycerides Urine Blood Urine WBC (Auto) U Epithel Cells (Auto) Crossmatch 10/19/21 10/19/21 10/19/21 04:23 04:23 04:23 WBC 16.0 H RBC 3.04 L Hgb 8.7 L Hct 26.3 L MCH MCHC RDW 16.9 H Plt Count 500 H Lymph % (Auto) [place] % (Auto) Lymph # (Auto) [place] # (Auto) Seg Neutrophils % Seg Neuts % (Manual) Lymphocytes % (Manual) Monocytes % (Manual) Nucleated RBC % Seg Neutrophils # Seg Neutrophils # Man Lymphocytes # (Manual) Monocytes # (Manual) PT INR D-Dimer ABG pH ABG pO2 ABG HCO3 ABG O2 Saturation ABG Base Excess ABG Hemoglobin Oxyhemoglobin Sodium Potassium Chloride Carbon Dioxide BUN 20 H Creatinine Glucose 138 H POC Glucose Lactic Acid Calcium 7.8 L Phosphorus 1.80 L D Magnesium 1.60 L Ferritin AST ALT Lactate Dehydrogenase Total Creatine Kinase C-Reactive Protein Total Protein Albumin Triglycerides Urine Blood Urine WBC (Auto) U Epithel Cells (Auto) Crossmatch 10/19/21 10/19/21 10/19/21 14:11 18:05 21:42 WBC RBC Hgb Hct MCH MCHC RDW Plt Count Lymph % (Auto) [place] % (Auto) Lymph # (Auto) [place] # (Auto) Seg Neutrophils % Seg Neuts % (Manual) Lymphocytes % (Manual) Monocytes % (Manual) Nucleated RBC % Seg Neutrophils # Seg Neutrophils # Man Lymphocytes # (Manual) Monocytes # (Manual) PT INR D-Dimer ABG pH ABG pO2 ABG HCO3 ABG O2 Saturation ABG Base Excess ABG Hemoglobin Oxyhemoglobin Sodium Potassium Chloride Carbon Dioxide BUN Creatinine Glucose POC Glucose 161 H 162 H 112 H Lactic Acid Calcium Phosphorus Magnesium Ferritin AST ALT Lactate Dehydrogenase Total Creatine Kinase C-Reactive Protein Total Protein Albumin Triglycerides Urine Blood Urine WBC (Auto) U Epithel Cells (Auto) Crossmatch 10/20/21 10/20/21 10/20/21 00:01 05:39 11:41 WBC 20.2 H RBC 2.81 L Hgb 8.5 L Hct 24.3 L MCH MCHC 35 H RDW 16.8 H Plt Count 481 H Lymph % (Auto) [place] % (Auto) Lymph # (Auto) [place] # (Auto) Seg Neutrophils % Seg Neuts % (Manual) Lymphocytes % (Manual) Monocytes % (Manual) Nucleated RBC % Seg Neutrophils # Seg Neutrophils # Man Lymphocytes # (Manual) Monocytes # (Manual) PT INR D-Dimer ABG pH ABG pO2 ABG HCO3 ABG O2 Saturation ABG Base Excess ABG Hemoglobin Oxyhemoglobin Sodium Potassium Chloride Carbon Dioxide BUN Creatinine Glucose POC Glucose 152 H 117 H Lactic Acid Calcium Phosphorus Magnesium Ferritin AST ALT Lactate Dehydrogenase Total Creatine Kinase C-Reactive Protein Total Protein Albumin Triglycerides Urine Blood Urine WBC (Auto) U Epithel Cells (Auto) Crossmatch 10/20/21 10/20/21 10/20/21 11:41 11:50 17:31 WBC RBC Hgb Hct MCH MCHC RDW Plt Count Lymph % (Auto) [place] % (Auto) Lymph # (Auto) [place] # (Auto) Seg Neutrophils % Seg Neuts % (Manual) Lymphocytes % (Manual) Monocytes % (Manual) Nucleated RBC % Seg Neutrophils # Seg Neutrophils # Man Lymphocytes # (Manual) Monocytes # (Manual) PT INR D-Dimer ABG pH ABG pO2 ABG HCO3 ABG O2 Saturation ABG Base Excess ABG Hemoglobin Oxyhemoglobin Sodium Potassium Chloride Carbon Dioxide BUN 20 H Creatinine Glucose 123 H POC Glucose 120 H 125 H Lactic Acid Calcium 7.7 L Phosphorus 2.00 L Magnesium Ferritin AST ALT Lactate Dehydrogenase Total Creatine Kinase C-Reactive Protein Total Protein Albumin Triglycerides Urine Blood Urine WBC (Auto) U Epithel Cells (Auto) Crossmatch 10/20/21 10/21/2122 23:25 04:30 04:30 WBC 23.2 H RBC 2.70 L Hgb 7.9 L Hct 23.2 L MCH MCHC RDW 17.2 H Plt Count Lymph % (Auto) [place] % (Auto) Lymph # (Auto) [place] # (Auto) Seg Neutrophils % Seg Neuts % (Manual) Lymphocytes % (Manual) Monocytes % (Manual) Nucleated RBC % Seg Neutrophils # Seg Neutrophils # Man Lymphocytes # (Manual) Monocytes # (Manual) PT INR D-Dimer ABG pH ABG pO2 ABG HCO3 ABG O2 Saturation ABG Base Excess ABG Hemoglobin Oxyhemoglobin Sodium Potassium Chloride Carbon Dioxide BUN 22 H Creatinine Glucose 117 H POC Glucose 119 H Lactic Acid Calcium 7.7 L Phosphorus Magnesium Ferritin AST ALT Lactate Dehydrogenase Total Creatine Kinase C-Reactive Protein Total Protein Albumin Triglycerides Urine Blood Urine WBC (Auto) U Epithel Cells (Auto) Crossmatch 10/21/21 10/21/21 10/21/21 05:26 09:05 11:27 WBC RBC Hgb Hct MCH MCHC RDW Plt Count Lymph % (Auto) [place] % (Auto) Lymph # (Auto) [place] # (Auto) Seg Neutrophils % Seg Neuts % (Manual) Lymphocytes % (Manual) Monocytes % (Manual) Nucleated RBC % Seg Neutrophils # Seg Neutrophils # Man Lymphocytes # (Manual) Monocytes # (Manual) PT INR D-Dimer ABG pH 7.509 H ABG pO2 60.3 L ABG HCO3 26.2 H ABG O2 Saturation ABG Base Excess ABG Hemoglobin 6.7 L Oxyhemoglobin Sodium Potassium Chloride Carbon Dioxide BUN Creatinine Glucose POC Glucose 111 H 114 H Lactic Acid Calcium Phosphorus Magnesium Ferritin AST ALT Lactate Dehydrogenase Total Creatine Kinase C-Reactive Protein Total Protein Albumin Triglycerides Urine Blood Urine WBC (Auto) U Epithel Cells (Auto) Crossmatch 10/21/21 10/21/21 10/22/21 16:45 23:13 05:25 WBC 21.7 H RBC 2.55 L Hgb 7.5 L Hct 22.3 L MCH MCHC RDW 16.8 H Plt Count Lymph % (Auto) [place] % (Auto) Lymph # (Auto) [place] # (Auto) Seg Neutrophils % Seg Neuts % (Manual) 86.0 H Lymphocytes % (Manual) 7.0 L Monocytes % (Manual) Nucleated RBC % Seg Neutrophils # Seg Neutrophils # Man 18.7 H Lymphocytes # (Manual) Monocytes # (Manual) 1.5 H PT INR D-Dimer ABG pH ABG pO2 ABG HCO3 ABG O2 Saturation ABG Base Excess ABG Hemoglobin Oxyhemoglobin Sodium Potassium Chloride Carbon Dioxide BUN Creatinine Glucose POC Glucose 117 H 125 H Lactic Acid Calcium Phosphorus Magnesium Ferritin AST ALT Lactate Dehydrogenase Total Creatine Kinase C-Reactive Protein Total Protein Albumin Triglycerides Urine Blood Urine WBC (Auto) U Epithel Cells (Auto) Crossmatch 10/22/21 10/22/21 10/22/21 09:02 09:02 11:07 WBC 17.2 H RBC 2.51 L Hgb 7.1 L Hct 21.9 L MCH MCHC RDW 17.2 H Plt Count Lymph % (Auto) 4.7 L [place] % (Auto) 10.2 H Lymph # (Auto) 0.8 L [place] # (Auto) 1.8 H Seg Neutrophils % 84.5 H Seg Neuts % (Manual) Lymphocytes % (Manual) Monocytes % (Manual) Nucleated RBC % Seg Neutrophils # 14.5 H Seg Neutrophils # Man Lymphocytes # (Manual) Monocytes # (Manual) PT INR D-Dimer ABG pH ABG pO2 ABG HCO3 ABG O2 Saturation ABG Base Excess ABG Hemoglobin Oxyhemoglobin Sodium 134 L Potassium Chloride Carbon Dioxide BUN 23 H Creatinine Glucose 117 H POC Glucose 115 H Lactic Acid Calcium 8.1 L Phosphorus Magnesium Ferritin AST ALT Lactate Dehydrogenase Total Creatine Kinase C-Reactive Protein Total Protein Albumin Triglycerides Urine Blood Urine WBC (Auto) U Epithel Cells (Auto) Crossmatch 10/22/21 10/22/21 10/22/21 16:05 23:15 Unknown WBC RBC Hgb Hct MCH MCHC RDW Plt Count Lymph % (Auto) [place] % (Auto) Lymph # (Auto) [place] # (Auto) Seg Neutrophils % Seg Neuts % (Manual) Lymphocytes % (Manual) Monocytes % (Manual) Nucleated RBC % Seg Neutrophils # Seg Neutrophils # Man Lymphocytes # (Manual) Monocytes # (Manual) PT INR D-Dimer ABG pH ABG pO2 ABG HCO3 ABG O2 Saturation ABG Base Excess ABG Hemoglobin Oxyhemoglobin Sodium 135 L Potassium Chloride Carbon Dioxide BUN 23 H Creatinine Glucose 112 H POC Glucose 123 H 114 H Lactic Acid Calcium 8.2 L Phosphorus Magnesium Ferritin AST ALT Lactate Dehydrogenase Total Creatine Kinase C-Reactive Protein Total Protein Albumin Triglycerides Urine Blood Urine WBC (Auto) U Epithel Cells (Auto) Crossmatch 10/23/21 10/23/21 10/23/21 04:56 04:56 05:28 WBC 16.5 H RBC 2.46 L Hgb 7.1 L Hct 21.4 L MCH MCHC RDW 16.9 H Plt Count Lymph % (Auto) [place] % (Auto) Lymph # (Auto) [place] # (Auto) Seg Neutrophils % Seg Neuts % (Manual) Lymphocytes % (Manual) Monocytes % (Manual) Nucleated RBC % Seg Neutrophils # Seg Neutrophils # Man Lymphocytes # (Manual) Monocytes # (Manual) PT INR D-Dimer ABG pH ABG pO2 ABG HCO3 ABG O2 Saturation ABG Base Excess ABG Hemoglobin Oxyhemoglobin Sodium Potassium Chloride Carbon Dioxide 21 L BUN 25 H Creatinine Glucose 123 H POC Glucose 130 H Lactic Acid Calcium 8.3 L Phosphorus Magnesium Ferritin AST ALT Lactate Dehydrogenase Total Creatine Kinase C-Reactive Protein Total Protein Albumin Triglycerides Urine Blood Urine WBC (Auto) U Epithel Cells (Auto) Crossmatch 10/23/21 10/23/21 10/24/21 11:24 17:52 00:11 WBC RBC Hgb Hct MCH MCHC RDW Plt Count Lymph % (Auto) [place] % (Auto) Lymph # (Auto) [place] # (Auto) Seg Neutrophils % Seg Neuts % (Manual) Lymphocytes % (Manual) Monocytes % (Manual) Nucleated RBC % Seg Neutrophils # Seg Neutrophils # Man Lymphocytes # (Manual) Monocytes # (Manual) PT INR D-Dimer ABG pH ABG pO2 ABG HCO3 ABG O2 Saturation ABG Base Excess ABG Hemoglobin Oxyhemoglobin Sodium Potassium Chloride Carbon Dioxide BUN Creatinine Glucose POC Glucose 123 H 121 H 139 H Lactic Acid Calcium Phosphorus Magnesium Ferritin AST ALT Lactate Dehydrogenase Total Creatine Kinase C-Reactive Protein Total Protein Albumin Triglycerides Urine Blood Urine WBC (Auto) U Epithel Cells (Auto) Crossmatch 10/24/21 10/24/21 10/24/21 04:00 04:00 05:15 WBC 14.2 H RBC 2.55 L Hgb 7.4 L Hct 22.2 L MCH MCHC RDW 17.0 H Plt Count 470 H Lymph % (Auto) [place] % (Auto) Lymph # (Auto) [place] # (Auto) Seg Neutrophils % Seg Neuts % (Manual) Lymphocytes % (Manual) Monocytes % (Manual) Nucleated RBC % Seg Neutrophils # Seg Neutrophils # Man Lymphocytes # (Manual) Monocytes # (Manual) PT INR D-Dimer ABG pH ABG pO2 ABG HCO3 ABG O2 Saturation ABG Base Excess ABG Hemoglobin Oxyhemoglobin Sodium 135 L Potassium Chloride Carbon Dioxide 21 L BUN 26 H Creatinine Glucose 122 H POC Glucose 133 H Lactic Acid Calcium 8.2 L Phosphorus Magnesium Ferritin AST ALT Lactate Dehydrogenase Total Creatine Kinase C-Reactive Protein Total Protein Albumin Triglycerides Urine Blood Urine WBC (Auto) U Epithel Cells (Auto) Crossmatch 10/24/21 10/25/21 10/25/21 16:53 05:03 05:03 WBC 12.2 H RBC 2.72 L Hgb 7.9 L Hct 23.7 L MCH MCHC RDW 17.3 H Plt Count 486 H Lymph % (Auto) [place] % (Auto) Lymph # (Auto) [place] # (Auto) Seg Neutrophils % Seg Neuts % (Manual) Lymphocytes % (Manual) Monocytes % (Manual) Nucleated RBC % Seg Neutrophils # Seg Neutrophils # Man Lymphocytes # (Manual) Monocytes # (Manual) PT INR D-Dimer ABG pH ABG pO2 ABG HCO3 ABG O2 Saturation ABG Base Excess ABG Hemoglobin Oxyhemoglobin Sodium 134 L Potassium Chloride Carbon Dioxide 19 L BUN 26 H Creatinine Glucose 107 H POC Glucose 129 H Lactic Acid Calcium 8.2 L Phosphorus Magnesium Ferritin AST ALT Lactate Dehydrogenase Total Creatine Kinase C-Reactive Protein Total Protein Albumin Triglycerides Urine Blood Urine WBC (Auto) U Epithel Cells (Auto) Crossmatch 10/25/21 10/25/21 10/25/21 05:44 11:29 17:10 WBC RBC Hgb Hct MCH MCHC RDW Plt Count Lymph % (Auto) [place] % (Auto) Lymph # (Auto) [place] # (Auto) Seg Neutrophils % Seg Neuts % (Manual) Lymphocytes % (Manual) Monocytes % (Manual) Nucleated RBC % Seg Neutrophils # Seg Neutrophils # Man Lymphocytes # (Manual) Monocytes # (Manual) PT INR D-Dimer ABG pH ABG pO2 ABG HCO3 ABG O2 Saturation ABG Base Excess ABG Hemoglobin Oxyhemoglobin Sodium Potassium Chloride Carbon Dioxide BUN Creatinine Glucose POC Glucose 113 H 120 H 121 H Lactic Acid Calcium Phosphorus Magnesium Ferritin AST ALT Lactate Dehydrogenase Total Creatine Kinase C-Reactive Protein Total Protein Albumin Triglycerides Urine Blood Urine WBC (Auto) U Epithel Cells (Auto) Crossmatch 10/26/21 10/26/21 10/27/21 04:18 04:18 04:00 WBC 14.5 H RBC 2.50 L Hgb 7.4 L Hct 21.8 L MCH MCHC RDW 17.0 H Plt Count 495 H Lymph % (Auto) [place] % (Auto) Lymph # (Auto) [place] # (Auto) Seg Neutrophils % Seg Neuts % (Manual) Lymphocytes % (Manual) Monocytes % (Manual) Nucleated RBC % Seg Neutrophils # Seg Neutrophils # Man Lymphocytes # (Manual) Monocytes # (Manual) PT INR D-Dimer ABG pH ABG pO2 ABG HCO3 ABG O2 Saturation ABG Base Excess ABG Hemoglobin Oxyhemoglobin Sodium 135 L 135 L Potassium Chloride Carbon Dioxide 20 L BUN 26 H 21 H Creatinine Glucose 101 H 116 H POC Glucose Lactic Acid Calcium 8.2 L 8.2 L Phosphorus Magnesium Ferritin AST 71 H ALT 91 H Lactate Dehydrogenase Total Creatine Kinase C-Reactive Protein Total Protein Albumin 2.3 L Triglycerides 196 H Urine Blood Urine WBC (Auto) U Epithel Cells (Auto) Crossmatch 10/27/21 10/27/21 05:17 10:14 WBC 11.9 H RBC 2.56 L Hgb 7.3 L Hct 22.6 L MCH MCHC RDW 17.1 H Plt Count 515 H Lymph % (Auto) [place] % (Auto) Lymph # (Auto) [place] # (Auto) Seg Neutrophils % Seg Neuts % (Manual) Lymphocytes % (Manual) Monocytes % (Manual) Nucleated RBC % Seg Neutrophils # Seg Neutrophils # Man Lymphocytes # (Manual) Monocytes # (Manual) PT INR D-Dimer ABG pH ABG pO2 ABG HCO3 ABG O2 Saturation ABG Base Excess ABG Hemoglobin Oxyhemoglobin Sodium Potassium Chloride Carbon Dioxide BUN Creatinine Glucose POC Glucose 117 H Lactic Acid Calcium Phosphorus Magnesium Ferritin AST ALT Lactate Dehydrogenase Total Creatine Kinase C-Reactive Protein Total Protein Albumin Triglycerides Urine Blood Urine WBC (Auto) U Epithel Cells (Auto) Crossmatch Chest x-ray: other (none today) Allied health notes reviewed: nursing
[2021-10-27] MEDS: METOPROLOL TARTRATE 25 MG TAB PO SCH ×2 (15:43→21:50)
--- NOTE | 2021-10-27 15:50 | Progress Note ---
Subjective - Reason for Consult Consult date: 10/27/21 Reason for consult: Anxiety - Chief Complaint Chief complaint: The patient was seen today. She is reports doing well. The patient endorses anxiety and rates as 6/10. she denies any current suicidal/homicidal ideation and denies hallucinations. REVIEW OF SYSTEMS MENTAL STATUS EXAMINATION Assessment and Plan Generalized anxiety Disorder Treatment Plan The patient is NPO Continue Lorazepam 1mg IV q4h prn anxiety Medical: per primary Sitter: per primary Disposition: Do not recommend acute psychiatric inpatient treatment. [facility] will provide patient with psychiatric out patient resources. Will sign off. Thanks Case staffed with Dr. Lopez Mental Status Exam - Vital signs Last Vital Signs Temp 99.1 F 10/27/21 12:00 Pulse 120 H 10/27/21 15:43 Resp 28 H 10/27/21 14:00 BP 164/99 10/27/21 15:43 Pulse Ox 99 10/27/21 12:00
--- NOTE | 2021-10-27 16:28 | Progress Note ---
Assessment and Plan Assessment and plan: This is a 31-year-old female with obesity and nephrolithiasis admitted with pericolonic abscess secondary to contained perforated diverticulitis, peritonitis complicated by acute blood loss anemia, acute kidney injury and acute hypoxic respiratory failure. Neuro: Anxiety -s/p precedex gtt -prn haldol and ativan -Avoid delirium -Reorientation as needed -Maintain sleep-wake cycle -Psych/mental health consulted, appreciate recommendations -continue ativan prn and signed off 10/27 Cardiac: ST -Blood pressure monitoring per protocol -s/p vasopressor support with Levophed and vasopressin -Echocardiogram shows normal right ventricular function, LVEF 55 to 60% Respiratory: Acute hypoxic respiratory failure -[facility] consulted, appreciate recommendations -Intubated s/p code met on 10/08 and extubated 10/18 -Currently on NC -Bipap q hs -Supplemental Oxygen as needed -Pulm hygiene GI: 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, diverticulitis with abscess, moderate protein calorie malnutrition, h/o obesity -Surgery consulted, appreciate recommendations -s/p ex lap with washout of pericolonic abscess and drain placement on 09/26/2021 -s/p open left hemicolectomy, appendectomy and partial omentectomy on 10/01 -s/p colostomy creation with closure of abdomen on 10/14/2021 -10/09 CT abdomen/pelvis showed a new collection of air within the left midabdomen -CT guided drain placement with IR -24 hours: -3470 mL -medial abd 2230 ml -PPI -TPN : Acute kidney injury secondary to vasomotor nephropathy versus contrast induced, Possible Bladder injury -Nephrology and urology consulted, appreciate recommendations -Strict intake and output -Renally dose medications -Avoid nephrotoxic medications -Daily weights -s/p IV Lasix nephrology -Trend BMP -S/p bilateral ureteral stents -10/12 Intra-Op cystoscopy completed and bilateral ureteral stents placed (removed 10/13) -Repeat renal US noted ID: Acute sepsis secondary to pericolonic abscess with appendiceal rupture fistulization, peritonitis, VRE and jean marie albicans in wound culture -Infectious disease consulted, appreciate recommendations -COVID 19 PCR negative -S/p drain placement and diagnostic laparotomy on 09/26 -Antibiotic therapy per ID -completed course -f/u blood culture -Monitor WBC and temperature curve Endo: NAD -Avoid hypoglycemia -SSI -Accu-Cheks q6 -Long-acting insulin, titrate as needed Heme: Acute blood loss anemia, elevated D-dimer, hematuria, leukocytosis, thrombocytosis -Patient had hematuria after ureteral injury sustained from surgical procedures -Urology consulted, appreciate recommendation -10/09 CTA chest with no evidence of PE. Findings suggesting multifocal pneumonia vs pulmonary edema -Bilateral lower extremity Doppler ultrasound shows no sonographic evidence of DVT however shows subcutaneous edema in lower extremities -Trend CBC -Transfuse hemoglobin less than 7 -S/p 7 units PRBC -Monitor for signs of bleeding -SCDs to BLE while in bed -Heparin subq The high probability of a clinically significant, sudden or life threatening deterioration of the [multi] system(s) required my full and direct attention, intervention and personal management. The aggregate critical care time was [60] minutes. This time is in addition to time spent performing reported procedures but includes the following: [x] Data Review and interpretation [x] Patient assessment and monitoring of vital signs [x] Documentation [x] Medication orders and management Disposition Plan: imcu Total Time Spent with Patient (Minutes): 60 History Interval history: This is a 31-year-old female with obesity and nephrolithiasis admitted with complaints of abdominal pain, lower back pain, nausea no with episodes of vomiting over the past dayon 09/24. Patient underwent a CT scan of the abdomen and pelvis and was found to have acute diverticulitis complicated by sepsis and was admitted to the medical floor initiated sepsis protocol. Surgery team was consulted in the emergency department. ICU Course to Date: 10/09: Intubated and sedated, RASS -1 to -2. Recent CXR noted with worsen bilateral opacities with persistent leukocytosis, elevated lactic, and now on 2 pressors. Patient remains afebrile, and already on IV Abx per ID. Will swab patient for COVID. Given recent surgery orders placed for CTA chest, CT Abd/plevis. And also BLE dopplers due to elevated D-Dimer. Renal function is improving, additional IVF to flush out kidney post contrast, Nephrology is also following. Continue TPN and NGT to LIS. 10/10: COVID PCR negative. CTA chest and Abd/plevis noted. No evidence of PE. Patient received X1 dose of 20mg IV lasix per Nephro for pulmonary edema, this am CXR with some improvement, renal function is also improving. Wean vent setting as tolerated per [facility]. Plan for possible CT guided drainage placement in IR tomorrow. Continue TPN and NGT to LIS. 10/11: Patient with anemia, 1 unit PRBC, scheduled for CT-guided drain image of air pocket. Will place on CPAP on return. Slightly worsening renal function but nephrology is on the case. 10/12: Taken to OR today for diverting ileostomy, given 3 units PRBC yesterday and appropriate response. Surgical culture grew yeast and ID added added fluconazole. 10/13: Hypomagnesemia repleted, renal function improving. Patient remains sedated with fentanyl and propofol. Updated sister and father at bedside. Ureteral stents removed at bedside. Plan to to take patient to the OR tomorrow for second look, abdominal washout, colostomy creation on hold for abdominal closure by surgery. We will hold p.m. dose of heparin. 10/14: Plan to take patient back to OR today, prophylactic anticougulation on hold. 2 units prbc on hold for surgery. Plan to close abd and colostomy creatio n. Vent weaning on hold till abd closure 10/15: Renal function remains stable, leukocytosis increased, remains sedated on propofol and fentanyl and on mechanical ventilation. Plan is to hold SBT until the weekend. Repeat renal ultrasound pending per urology. 10/16: no acute events overnight. remains on fent and propofol. plan to sbt on monday. 10/17: noted drop in hgb from 8 to 7.2 and will given one unit prbc. remains on fent/propofol. CARMEN overnight. Will retract OETT per rad reading. 10/18: Febrile this am with worsen leukocytosis. Continue IV Abx per ID, orders placed for cultures. Patient tolerating PST, d/w CCM plan for possible extubation today. Abdominal insicion and colostomy noted, no signs of any complications noted. Continue TPN and NGT to LIS per General surgery. 10/19: S/p extubation, now stable on 2L NC. Fevers improved, cultures pending continue IV Abx per ID. Patient is still with absent bowel sounds, continue TPN and NGT to LIS per General surg. Okay to remove brantley per Urology. Electrolytes repleted, repeat labs in the am. Patient is stable for transfer to [facility]. 10/20: Continue current management. Patient remained stable on 2 L of oxygen but appears anxious with increased tachypnea. We will add incentive spirometer. Will check and monitor intermittent x-rays. Continue antibiotics per infectious disease. Renal function has normalized. We will good urine output. We will check blood work in a.m. Awaiting return of bowel function 10/21: Patient on BiPAP this am, xray from yesterday concerning for Aspiration pneumonia vs atalalectsis, patient still with increased WOB although improved compared to yesterday. Leukocytosis a bit worse, will continue to monitor and discuss with ID if more broad spectrum therapy should be considered. She is currently on Bactrim for positive tracheal aspirate with Stenotrophomonas. Continue aspiration precautions. may need repeat xray but will discuss with pulmonary. Continue Strict NPO and Aspiration precautions. Continues on TPN. Prognosis guarded. ?Third spacing 10/22: Back in the ICU due to hypoxia, increased WOB, and tachycardia requiring continuous Bipap. Patient is now on precedex gtt for increased anxiety. Repeat BLE doppler with no evidence of DVT . D/W [facility] paln for CTA chest and CT abd/Pelvis today. Mild improvement in leukocytosis today, patient is afebrile, continue IV Abx per ID. Remains on TPN and NGT to LIS. 10/23: CTA chest and CT Abd/Pelvis noted- no evidence of PE, multiloculated collection along the left mid abdomen have all decreased in size, with persistent anasarca. Will started IV Lasix [id number]. Plan to wean to NC today, continue Bipap Qhs or as needed. Close monitoring of renal function and electrolytes, replete as needed. Plan to Clamp NGT today per General Surgery. Continue TPN. 10/24: Patient tolerated IV lasix, stable on 3L NC this am, no respiratory distress noted. Continue gentle diurese, IV Lasix X3 doses. Remains on NGT clamped per Gen Surgery. Patient is tolerating ice chips. Patient is okayed for sips of water per General Surgery. Continue TPN and wound care management per General Surgery. 10/25: We will discontinue Precedex, start as needed Haldol and order PICC line. Magnesium repleted. Continues on TPN. 10/26: Patient is tachycardic and has a slight increase in leukocytosis. She continues to have intermittent low-grade fevers. Remains off antibiotics per ID. Continue n.p.o. and resume NG tube to low normal suction. Patient will be transferred to IMCU. Might warrant further testing if leukocytosis and fevers continue. Long discussion at bedside with Dr. Huddleston and Dr. Vega. 10/27: Due to persistent tachycardia surgery would like cardiology consulted. Patient was started on a beta-hosea. Psych has signed off on the patient. Leukocytosis improving. Afebrile for 24 hours. Given mag citrate by surgery Hospitalist Physical - Constitutional Vitals: Temp Pulse Resp BP Pulse Ox 99.1 F 120 H 26 H 164/99 99 10/27/21 12:00 10/27/21 15:43 10/27/21 15:31 10/27/21 15:43 10/27/21 15:31 General appearance: Present: no acute distress, obese Results - Labs CBC & Chem 7: 10/27/21 10:14 10/27/21 04:00 Labs: Laboratory Last Values WBC 11.9 K/mm3 (4.5-11.0) H 10/27/21 10:14 RBC 2.56 M/mm3 (3.65-5.03) L 10/27/21 10:14 Hgb 7.3 gm/dl (10.1-14.3) L 10/27/21 10:14 Hct 22.6 % (30.3-42.9) L 10/27/21 10:14 MCV 88 fl (79-97) 10/27/21 10:14 MCH 29 pg (28-32) 10/27/21 10:14 MCHC 32 % (30-34) 10/27/21 10:14 RDW 17.1 % (13.2-15.2) H 10/27/21 10:14 Plt Count 515 K/mm3 (140-440) H 10/27/21 10:14 Lymph % (Auto) 4.7 % (13.4-35.0) L 10/22/21 09:02 Andrews % (Auto) 10.2 % (0.0-7.3) H 10/22/21 09:02 Eos % (Auto) 0.4 % (0.0-4.3) 10/22/21 09:02 Baso % (Auto) 0.2 % (0.0-1.8) 10/22/21 09:02 Lymph # (Auto) 0.8 K/mm3 (1.2-5.4) L 10/22/21 09:02 Andrews # (Auto) 1.8 K/mm3 (0.0-0.8) H 10/22/21 09:02 Eos # (Auto) 0.1 K/mm3 (0.0-0.4) 10/22/21 09:02 Baso # (Auto) 0.0 K/mm3 (0.0-0.1) 10/22/21 09:02 Add Manual Diff Complete 10/21/21 16:45 Total Counted 100 10/21/21 16:45 Seg Neutrophils % 84.5 % (40.0-70.0) H 10/22/21 09:02 Seg Neuts % (Manual) 86.0 % (40.0-70.0) H 10/21/21 16:45 Band Neutrophils % 0 % 10/21/21 16:45 Lymphocytes % (Manual) 7.0 % (13.4-35.0) L 10/21/21 16:45 Reactive Lymphs % (Man) 0 % 10/21/21 16:45 Monocytes % (Manual) 7.0 % (0.0-7.3) 10/21/21 16:45 Eosinophils % (Manual) 0 % (0.0-4.3) 10/21/21 16:45 Basophils % (Manual) 0 % (0.0-1.8) 10/21/21 16:45 Metamyelocytes % 0 % 10/21/21 16:45 Myelocytes % 0 % 10/21/21 16:45 Promyelocytes % 0 % 10/21/21 16:45 Blast Cells % 0 % 10/21/21 16:45 Nucleated RBC % Not Reportable 10/21/21 16:45 Seg Neutrophils # 14.5 K/mm3 (1.8-7.7) H 10/22/21 09:02 Seg Neutrophils # Man 18.7 K/mm3 (1.8-7.7) H 10/21/21 16:45 Band Neutrophils # 0.0 K/mm3 10/21/21 16:45 Lymphocytes # (Manual) 1.5 K/mm3 (1.2-5.4) 10/21/21 16:45 Abs React Lymphs (Man) 0.0 K/mm3 10/21/21 16:45 Monocytes # (Manual) 1.5 K/mm3 (0.0-0.8) H 10/21/21 16:45 Eosinophils # (Manual) 0.0 K/mm3 (0.0-0.4) 10/21/21 16:45 Basophils # (Manual) 0.0 K/mm3 (0.0-0.1) 10/21/21 16:45 Metamyelocytes # 0.0 K/mm3 10/21/21 16:45 Myelocytes # 0.0 K/mm3 10/21/21 16:45 Promyelocytes # 0.0 K/mm3 10/21/21 16:45 Blast Cells # 0.0 K/mm3 10/21/21 16:45 Pathologist Review 09/24/21 14:58 WBC Morphology Not Reportable 10/21/21 16:45 Hypersegmented Neuts Rare 10/21/21 16:45 Hyposegmented Neuts Not Reportable 10/21/21 16:45 Hypogranular Neuts Not Reportable 10/21/21 16:45 Smudge Cells Not Reportable 10/21/21 16:45 Toxic Granulation 2+ 10/21/21 16:45 Toxic Vacuolation Not Reportable 10/21/21 16:45 Dohle Bodies Not Reportable 10/21/21 16:45 Pelger-Huet Anomaly Not Reportable 10/21/21 16:45 Marlene Rods Not Reportable 10/21/21 16:45 Platelet Estimate Consistent w auto 10/21/21 16:45 Clumped Platelets Not Reportable 10/21/21 16:45 Plt Clumps, EDTA Not Reportable 10/21/21 16:45 Large Platelets Not Reportable 10/21/21 16:45 Giant Platelets Not Reportable 10/21/21 16:45 Platelet Satelliting Not Reportable 10/21/21 16:45 Plt Morphology Comment Not Reportable 10/21/21 16:45 RBC Morphology Normal 10/21/21 16:45 Dimorphic RBCs Not Reportable 10/21/21 16:45 Polychromasia Not Reportable 10/21/21 16:45 Hypochromasia Not Reportable 10/21/21 16:45 Poikilocytosis Not Reportable 10/21/21 16:45 Anisocytosis Not Reportable 10/21/21 16:45 Microcytosis Not Reportable 10/21/21 16:45 Macrocytosis Not Reportable 10/21/21 16:45 Spherocytes Not Reportable 10/21/21 16:45 Pappenheimer Bodies Not Reportable 10/21/21 16:45 Sickle Cells Not Reportable 10/21/21 16:45 Target Cells Not Reportable 10/21/21 16:45 Tear Drop Cells Not Reportable 10/21/21 16:45 Ovalocytes Not Reportable 10/21/21 16:45 Helmet Cells Not Reportable 10/21/21 16:45 [place] Bodies Not Reportable 10/21/21 16:45 Hollis Rings Not Reportable 10/21/21 16:45 Anusha Cells Not Reportable 10/21/21 16:45 Bite Cells Not Reportable 10/21/21 16:45 Crenated Cell Not Reportable 10/21/21 16:45 Elliptocytes Not Reportable 10/21/21 16:45 Acanthocytes (Spur) Not Reportable 10/21/21 16:45 Rouleaux Not Reportable 10/21/21 16:45 Hemoglobin C Crystals Not Reportable 10/21/21 16:45 Schistocytes Not Reportable 10/21/21 16:45 Malaria parasites Not Reportable 10/21/21 16:45 Flaco Bodies Not Reportable 10/21/21 16:45 Hem Pathologist Commnt No 10/21/21 16:45 PT 19.0 Sec. (12.2-14.9) H 10/14/21 04:05 INR 1.41 (0.87-1.13) H 10/14/21 04:05 APTT 33.9 Sec. (24.2-36.6) 10/14/21 04:05 D-Dimer > 45385 ng/mlDDU (0-234) H 10/09/21 08:45 ABG pH 7.509 pH Units (7.350-7.450) H 10/21/21 09:05 ABG pCO2 33.7 mm Hg 10/21/21 09:05 ABG pO2 60.3 mm Hg (80.0-90.0) L 10/21/21 09:05 ABG HCO3 26.2 mmol/L (20.0-26.0) H 10/21/21 09:05 ABG O2 Saturation 97.5 % (95.0-99.0) 10/21/21 09:05 ABG O2 Content 9.0 (0.0-44) 10/21/21 09:05 ABG Base Excess 3.0 mmol/L (-2.0-3.0) 10/21/21 09:05 ABG Hemoglobin 6.7 gm/dl (12.0-16.0) L 10/21/21 09:05 ABG Carboxyhemoglobin 1.8 % (0.0-5.0) 10/21/21 09:05 ABG Methemoglobin 0.4 % (0.0-1.5) 10/21/21 09:05 Oxyhemoglobin 95.3 % (95.0-99.0) 10/21/21 09:05 FiO2 28 % 10/21/21 09:05 Sodium 135 mmol/L (137-145) L 10/27/21 04:00 Potassium 4.2 mmol/L (3.6-5.0) 10/27/21 04:00 Chloride 99.3 mmol/L (98-107) 10/27/21 04:00 Carbon Dioxide 23 mmol/L (22-30) 10/27/21 04:00 Anion Gap 17 mmol/L 10/27/21 04:00 BUN 21 mg/dL (7-17) H 10/27/21 04:00 Creatinine 0.7 mg/dL (0.6-1.2) 10/27/21 04:00 Estimated GFR > 60 ml/min 10/27/21 04:00 BUN/Creatinine Ratio 30 % 10/27/21 04:00 Glucose 116 mg/dL (65-100) H 10/27/21 04:00 POC Glucose 117 mg/dL (70-105) H 10/27/21 05:17 Lactic Acid 1.80 mmol/L (0.7-2.0) 10/10/21 04:10 Calcium 8.2 mg/dL (8.4-10.2) L 10/27/21 04:00 Phosphorus 4.00 mg/dL (2.5-4.5) 10/27/21 04:00 Magnesium 1.80 mg/dL (1.7-2.3) 10/27/21 04:00 Ferritin 751.9 ng/mL (10.0-200.0) H 10/09/21 05:31 Total Bilirubin 0.20 mg/dL (0.1-1.2) 10/26/21 04:18 AST 71 units/L (5-40) H 10/26/21 04:18 ALT 91 units/L (7-56) H 10/26/21 04:18 Alkaline Phosphatase 97 units/L (35-129) 10/26/21 04:18 Lactate Dehydrogenase 472 units/L (91-180) H 10/09/21 05:31 Total Creatine Kinase 45 units/L (30-135) 10/13/21 04:05 C-Reactive Protein 15.90 mg/dL (0.00-1.30) H 10/09/21 05:31 Total Protein 6.8 g/dL (6.3-8.2) 10/26/21 04:18 Albumin 2.3 g/dL (3.9-5) L 10/26/21 04:18 Albumin/Globulin Ratio 0.5 % 10/26/21 04:18 Triglycerides 196 mg/dL (2-149) H 10/26/21 04:18 Procalcitonin 12.98 ng/mL (<0.15) 10/09/21 05:31 Urine Color Yellow (Yellow) 10/18/21 11:40 Urine Turbidity Clear (Clear) 10/18/21 11:40 Urine pH 6.0 (5.0-7.0) 10/18/21 11:40 Ur Specific [place] 1.015 (1.003-1.030) 10/18/21 11:40 Urine Protein 30 mg/dl mg/dL (Negative) 10/18/21 11:40 Urine Glucose (UA) Trace mg/dL (Negative) 10/18/21 11:40 Urine Ketones Negative mg/dL (Negative) 10/18/21 11:40 Urine Blood Moderate (Negative) A 10/18/21 11:40 Urine Nitrite Negative (Negative) 10/18/21 11:40 Ur Reducing Substances Not Reportable 09/24/21 14:49 Urine Bilirubin Negative (Negative) 10/18/21 11:40 Urine Ictotest Not Reportable 09/24/21 14:49 Urine Urobilinogen 0.0 mg/dL (<2.0) 10/18/21 11:40 Ur Leukocyte Esterase Negative (Negative) 10/18/21 11:40 Urine WBC (Auto) 50.0 /HPF (0.0-6.0) H 10/18/21 11:40 Urine RBC (Auto) > 182.0 /HPF (0.0-6.0) 10/18/21 11:40 U Epithel Cells (Auto) 2.0 /HPF (0-13.0) 10/18/21 11:40 Urine Bacteria (Auto) 2+ /HPF (Negative) 10/18/21 11:40 Urine WBC Clumps 1+ /HPF 10/18/21 11:40 Hyaline Casts Few /LPF 10/18/21 11:40 Granular Casts Few /LPF 10/18/21 11:40 Urine Mucus 3+ /HPF 10/18/21 11:40 Urine HCG, Qual Negative (Negative) 09/24/21 14:49 Coronavirus (PCR) Negative (Negative) 10/09/21 10:15 Blood Type A POSITIVE 10/17/21 12:50 Antibody Screen Negative 10/17/21 12:50 Crossmatch See Detail 10/17/21 12:50 Brantley/IV: Voiding Method External Female Catheter Active Medications - Current Medications Current Medications: Generic Name Dose Route Start Last Admin Trade Name Freq PRN Reason Stop Dose Admin Acetaminophen 650 mg 10/08/21 21:38 Acetaminophen 325 Mg Tab PO Q6H PRN Pain, Mild (1-3) Albuterol 2.5 mg 09/24/21 18:07 Albuterol 2.5 Mg/3 Ml Nebu IH Q4HRT PRN Shortness Of Breath Dextrose 0 ml 10/03/21 12:37 Dextrose 10% *Hypoglycemia IV PRN PRN Hypoglycemia Diphenhydramine HCl 25 mg 10/04/21 15:14 10/25/21 10:05 Diphenhydramine 50 Mg/Ml Vial IV 25 mg Q6H PRN Administration Itching Heparin Sodium (Porcine) 5,000 unit 10/16/21 10:00 10/27/21 10:45 Heparin 5,000 Unit/1 Ml Vial SUB-Q 5,000 unit Q12HR JAZ Administration Hydromorphone HCl 0.5 mg 10/18/21 15:39 10/27/21 15:42 Hydromorphone 1 Mg/1 Ml Inj IV 0.5 mg Q3H PRN Administration Pain, Moderate (4-6) Hydrophilic Ointment 1 applic 10/08/21 21:00 10/24/21 12:50 Lip Therapy Vaseline TP 1 applic Q2HR PRN Administration Dry Lips Amino Acids/Electrolytes/Dextrose 1,999.92 mls @ 83.33 mls/hr 10/26/21 20:00 10/26/21 19:47 Tpn Adult IV 10/27/21 19:59 83.33 mls/hr DAILY@1999 [facility] Administration Protocol Amino Acids/Electrolytes/Dextrose 1,999.92 mls @ 83.33 mls/hr 10/27/21 20:00 Tpn Adult IV 10/28/21 19:59 DAILY@1999 [facility] Protocol Insulin Glargine 5 units 10/13/21 10:00 10/27/21 10:46 Insulin Glargine 100 Units/Ml SUB-Q 5 units QDAY [facility] Administration Insulin Human Regular 0 units 10/10/21 00:00 10/27/21 13:56 Insulin Regular, Human 100 Units/1 Ml SUB-Q Not Given Q6HR [facility] Protocol Labetalol HCl 10 mg 10/01/21 08:31 10/20/21 09:56 Labetalol 20 Mg/4 Ml Inj IV 10 mg Q6H PRN Administration Hypertension Lorazepam 1 mg 10/21/21 12:48 10/27/21 05:02 Lorazepam 2 Mg/Ml Vial IV 1 mg Q4H PRN Administration Anxiety Metoprolol Tartrate 12.5 mg 10/27/21 15:00 10/27/21 15:43 Metoprolol Tartrate 25 Mg Tab PO 12.5 mg BID JAZ Administration Multi-Ingred Cream/Lotion/Oil/Oint 1 applic 10/08/21 21:00 Mineral Oil/Petrolatum, White Ophth Oint 3.5 Gm OU Q4HR PRN Dry Eye(s) Naloxone HCl 0.1 mg 10/03/21 14:00 Naloxone 0.4 Mg/1 Ml Inj IV Q2MIN PRN Res Rate </= 8 or 02 SAT < 92% Ondansetron HCl 4 mg 09/24/21 18:07 10/26/21 14:20 Ondansetron 4 Mg/2 Ml Inj IV 4 mg Q8H PRN Administration Nausea And Vomiting Pantoprazole Sodium 40 mg 10/20/21 17:00 10/27/21 10:46 Pantoprazole 40 Mg Inj IV 40 mg QDAY JAZ Administration Phenol 1 spray 10/02/21 13:00 10/03/21 10:23 Phenol 1.4% 177 Ml Bottle MM 1 spray PRN PRN Administration Sore Throat Scopolamine 1 each 10/04/21 10:00 10/25/21 09:28 Scopolamine Transdermal Patch 72 Hr TD 1 each Q3D JAZ Administration Sodium Chloride 10 ml 09/24/21 22:00 10/27/21 10:46 Sodium Chloride 0.9% 10 Ml Flush Syringe IV 10 ml BID JAZ Administration Sodium Chloride 10 ml 09/24/21 18:07 09/25/21 08:34 Sodium Chloride 0.9% 10 Ml Flush Syringe IV 10 ml PRN PRN Administration LINE FLUSH Nutrition/Malnutrition Assess - Dietary Evaluation Nutrition/Malnutrition Findings: Nutrition Notes Start: 09/25/21 15:31 Freq: Status: Active Protocol: Document 10/27/21 10:04 BIN (Rec: 10/27/21 11:18 BIN [email or web address]) Nutrition Notes Initial or Follow up Reassessment Current Diagnosis Acute Kidney Injury,Sepsis Other Pertinent Diagnosis s/p appendectomy, s/p exp lap with colostomy, anemia, Anxiety. Current Diet CPN at 83.33 ml/hr Labs/Tests 10/27: Na 135, BUN 21, Glu 116 , Ca 8.2. Pertinent Medications 10/27: Insulin, others nutritionally unremarkable. Height 5 ft 7 in Weight 109 kg [place] Body Weight (kg) 61.36 BMI 37.6 Weight change and time frame No body weight change reported in 3 days. Weight Status Obese Subjective/Other Information Day 25 TPN. Pt continues on nasal cannula, according to Progress notes. Pt tolerating well ice chips and sips of water, with no N/V nor Abdominal Pain, according to Progress notes. Pt will be transferred to IMCU . Percent of energy/protein needs met: 86% Kcal; 98% AA. Burn Absent Trauma Absent GI Symptoms Other Food Allergy No Skin Integrity/Comment Surgical wound Current % PO Other Minimum of two criteria No #1 Nutrition Diagnosis Altered GI function Diagnosis Progress(for reassessment Continues documentation) Is patient on ventilator? No Is Patient Ambulatory and/or Out of Bed No REE-([facility]-confined to bed) 2200.920 Kcal/Kg value to use for calculation 16 Approximate Energy Requirements Using 1744 kcal/Kg Calculation Used for Recommendations Kcal/kg Additional Notes Protein: 2 g/Kg; 123 g/day IBW . Fluids: 1 mL/Kcal, or as per MD. Nutrition Intervention Nutrition Support: Continue CPN at 83.33ml/hr: Osmolality: 1595. 25/75 % Cl to CO2 ratio. MVI 10 ml. Kcal 1,500 Protein (gm) 120 Carbohydrates (gm) 300 Fat (gm) 0 Fluid (mL) 2,000 Fiber (gm) 0 % RDI: 86% Kcal; 98% AA. Goal #1 Provide at least 75% of energy /protein needs through Parenteral Feeding during LOS. Goal #2 Maintain body weight within +/ -3% of admission body weight during LOS. Follow-Up By: 10/28/21 Additional Comments Continue monitoring CPN tolerance and BM. BMP, Phos, and Mg labs ordered .
--- NOTE | 2021-10-27 17:09 | Consultation ---
History of Present Illness Consult date: 10/27/21 Requesting physician: FRANCISCO BOURGEOIS Consult reason: other (Persistent sinus tach) History of present illness: Patient is 32-year-old female with a past medical history of hypertension, kidney stones, obesity, who was admitted to [facility] on 09/24/2021 for pericolonic abscess secondary to perforated diverticulitis, peritonitis which was further complicated by acute blood loss anemia BRYANNA and acute hypoxic respiratory failure. During hospital stay patient has had multiple GI surgeries. Since 10/25/2021 patient has had persistent tachycardia. At time of interview patient reports some palpitations. However patient denies any chest pain, nausea, vomiting, diaphoresis, lightheadedness. Patient does report some slight anxiety and pain from surgical sites. Patient previously unknown to our practice. Car diology is consulted for persistent tachycardia Past History Past Medical History: other (See HPI) Past Surgical History: No surgical history, Other (Reviewed) Social history: single. denies: smoking, alcohol abuse, prescription drug abuse Family history: hypertension Medications and Allergies Allergies Allergy/AdvReac Type Severity Reaction Status Date / Time No Known Allergies Allergy Verified 09/24/21 12:21 Home Medications Medication Instructions Recorded Confirmed Last Taken Type No Known Home Medications [No 09/27/21 09/27/21 Unknown History Reported Home Medications] Active Meds: Active Medications Acetaminophen (Acetaminophen 325 Mg Tab) 650 mg PO Q6H PRN PRN Reason: Pain, Mild (1-3) Albuterol (Albuterol 2.5 Mg/3 Ml Nebu) 2.5 mg IH Q4HRT PRN PRN Reason: Shortness Of Breath Dextrose (Dextrose 10% *Hypoglycemia) 0 ml IV PRN PRN PRN Reason: Hypoglycemia Diphenhydramine HCl (Diphenhydramine 50 Mg/Ml Vial) 25 mg IV Q6H PRN PRN Reason: Itching Last Admin: 10/25/21 10:05 Dose: 25 mg Heparin Sodium (Porcine) (Heparin 5,000 Unit/1 Ml Vial) 5,000 unit SUB-Q Q12HR JAZ Last Admin: 10/27/21 10:45 Dose: 5,000 unit Hydromorphone HCl (Hydromorphone 1 Mg/1 Ml Inj) 0.5 mg IV Q3H PRN PRN Reason: Pain, Moderate (4-6) Last Admin: 10/27/21 15:42 Dose: 0.5 mg Hydrophilic Ointment (Lip Therapy Vaseline) 1 applic TP Q2HR PRN PRN Reason: Dry Lips Last Admin: 10/24/21 12:50 Dose: 1 applic Amino Acids/Electrolytes/Dextrose (Tpn Adult) 1,999.92 mls @ 83.33 mls/hr IV DAILY@1999 [facility]; Protocol Stop: 10/27/21 19:59 Last Admin: 10/26/21 19:47 Dose: 83.33 mls/hr Amino Acids/Electrolytes/Dextrose (Tpn Adult) 1,999.92 mls @ 83.33 mls/hr IV DAILY@1999 [facility]; Protocol Stop: 10/28/21 19:59 Insulin Glargine (Insulin Glargine 100 Units/Ml) 5 units SUB-Q QDAY [facility] Last Admin: 10/27/21 10:46 Dose: 5 units Insulin Human Regular (Insulin Regular, Human 100 Units/1 Ml) 0 units SUB-Q Q6HR [facility]; Protocol Last Admin: 10/27/21 13:56 Dose: Not Given Labetalol HCl (Labetalol 20 Mg/4 Ml Inj) 10 mg IV Q6H PRN PRN Reason: Hypertension Last Admin: 10/20/21 09:56 Dose: 10 mg Lorazepam (Lorazepam 2 Mg/Ml Vial) 1 mg IV Q4H PRN PRN Reason: Anxiety Last Admin: 10/27/21 05:02 Dose: 1 mg Metoprolol Tartrate (Metoprolol Tartrate 25 Mg Tab) 12.5 mg PO BID [facility] Last Admin: 10/27/21 15:43 Dose: 12.5 mg Multi-Ingred Cream/Lotion/Oil/Oint (Mineral Oil/Petrolatum, White Ophth Oint 3.5 Gm) 1 applic OU Q4HR PRN PRN Reason: Dry Eye(s) Naloxone HCl (Naloxone 0.4 Mg/1 Ml Inj) 0.1 mg IV Q2MIN PRN PRN Reason: Res Rate </= 8 or 02 SAT < 92% Ondansetron HCl (Ondansetron 4 Mg/2 Ml Inj) 4 mg IV Q8H PRN PRN Reason: Nausea And Vomiting Last Admin: 10/26/21 14:20 Dose: 4 mg Pantoprazole Sodium (Pantoprazole 40 Mg Inj) 40 mg IV QDAY [facility] Last Admin: 10/27/21 10:46 Dose: 40 mg Phenol (Phenol 1.4% 177 Ml Bottle) 1 spray MM PRN PRN PRN Reason: Sore Throat Last Admin: 10/03/21 10:23 Dose: 1 spray Scopolamine (Scopolamine Transdermal Patch 72 Hr) 1 each TD Q3D [facility] Last Admin: 10/25/21 09:28 Dose: 1 each Sodium Chloride (Sodium Chloride 0.9% 10 Ml Flush Syringe) 10 ml IV BID [facility] Last Admin: 10/27/21 10:46 Dose: 10 ml Sodium Chloride (Sodium Chloride 0.9% 10 Ml Flush Syringe) 10 ml IV PRN PRN PRN Reason: LINE FLUSH Last Admin: 09/25/21 08:34 Dose: 10 ml Review of Systems Constitutional: no weight loss, no weight gain, no fever Ears, nose, mouth and throat: no nasal discharge, no sinus pressure, no sinus pain Cardiovascular: palpitations, no chest pain, no orthopnea, no lightheadedness, no shortness of breath, no dyspnea on exertion Respiratory: no shortness of breath, no dyspnea on exertion Gastrointestinal: abdominal pain, no nausea, no vomiting Musculoskeletal: low back pain, no neck stiffness, no neck pain Integumentary: no rash, no pruritis, no redness, no sores Neurological: no head injury, no transient paralysis Psychiatric: anxiety, no memory loss Endocrine: no cold intolerance, no heat intolerance Hematologic/Lymphatic: no easy bruising, no easy bleeding Physical Examination Vital Signs Temp Pulse Resp BP Pulse Ox 98.0 F 118 H 18 109/71 99 09/24/21 12:20 09/24/21 12:20 09/24/21 12:20 09/24/21 12:20 09/24/21 12:20 General appearance: no acute distress HEENT: Positive: PERRL Neck: Positive: trachea midline Cardiac: Positive: Regular Rhythm, Tachycardia Lungs: Positive: Normal Breath Sounds Neuro: Positive: Grossly Intact Abdomen: Positive: Soft, Tender Skin: Negative: Rash, Suspicious Lesions Extremities: Present: upper extr. pulses. Absent: edema Results 10/27/21 10:14 10/27/21 04:00 CBC 10/27/21 Range/Units 10:14 WBC 11.9 H (4.5-11.0) K/mm3 RBC 2.56 L (3.65-5.03) M/mm3 Hgb 7.3 L (10.1-14.3) gm/dl Hct 22.6 L (30.3-42.9) % Plt Count 515 H (140-440) K/mm3 Comprehensive Metabolic Panel 10/27/21 Range/Units 04:00 Sodium 135 L (137-145) mmol/L Potassium 4.2 (3.6-5.0) mmol/L Chloride 99.3 (98-107) mmol/L Carbon Dioxide 23 (22-30) mmol/L BUN 21 H (7-17) mg/dL Creatinine 0.7 (0.6-1.2) mg/dL Glucose 116 H (65-100) mg/dL Calcium 8.2 L (8.4-10.2) mg/dL - Imaging and Cardiology Echo: report reviewed EKG interpretations - Telemetry EKG Rhythm: Sinus Tachycardia Assessment and Plan Patient is 32-year-old female with a past medical history of hypertension, kidney stones, obesity, who was admitted to [facility] on 09/24/2021 for pericolonic abscess secondary to perforated diverticulitis, peritonitis which was further complicated by acute blood loss anemia BRYANNA and acute hypoxic respiratory failure. Perforated diverticulitis Pericolonic abscess Sepsis Anemia BRYANNA Sinus tach Febrile Echo 10/09/2021-EF 55 to 60%. Normal left ventricular systolic function. Right ventricular systolic function is normal. Left and right atrium are normal in size. Plan: No EKG in chart. EKG pending Telemetry reviewed patient is sinus tach rate can be as high into 130s on monitor. No signs of acute ischemic changes Patient denies any current complaint of chest pain, nausea, vomiting, or shortness of breath CT chest from 10/22 showed no PE Suspect tachycardia likely a result of multiple recent GI surgeries, sepsis, and anemia Due to hypertension will initiate metoprolol 12.5 mg p.o. twice daily. Metoprolol may assist sinus tach while Will continue to closely monitor Patient seen in conjunction with Dr. Kidd who agrees with this plan of care 30 minutes of critical care time spent in care and coordination of patient - Patient Problems (1) Diverticulitis Current Visit: Yes Status: Acute (2) Colonic diverticular abscess Current Visit: Yes Status: Acute (3) Sepsis Current Visit: Yes Status: Acute (4) Obesity hypoventilation syndrome Current Visit: Yes Status: Acute (5) Appendicitis with perforation Current Visit: Yes Status: Acute (6) Anemia Current Visit: Yes Status: Acute (7) Acute respiratory failure with hypoxia Current Visit: Yes Status: Acute
[2021-10-27] MEDS ORDERED: TOTAL PARENTERAL NUTRITION 1,999.92 ML IV SCH (20:00)
[2021-10-27] MEDS: ONDANSETRON 4 MG/2 ML INJ IV PRN (22:02)
[2021-10-27] MEDS ORDERED: hydrALAZINE 20 MG/1 ML INJ IV PRN (22:33)
[2021-10-28] MEDS: HYDROmorphone 1 MG/1 ML INJ IV PRN ×7 (01:50→21:09)
[2021-10-28] MEDS: LORazepam 2 MG/ML VIAL IV PRN (04:13)
[2021-10-28] MEDS ORDERED: SODIUM CHLORIDE 0.9% 500 ML 500 ML ONE (04:49)
[2021-10-28] MEDS: INSULIN REGULAR, HUMAN 100 UNITS/1 ML SUB-Q SCH ×3 (05:51→18:29)
[2021-10-28] MEDS ORDERED: LORazepam 2 MG/ML VIAL IV ONE (05:58)
[2021-10-28 06:28] LABS: Mean Corpuscular HGB Conc 29 % (30-34); Mean Corpuscular Volume 99 fl (79-97); Platelet Count 484 K/mm3 (140-440); Red Blood Count 2.42 M/mm3 (3.65-5.03); Red Cell Distribution Width 19.2 % (13.2-15.2)
[2021-10-28 06:35] LABS: Hematocrit 24.1 % (30.3-42.9)
[2021-10-28 06:49] LABS: Blood Urea Nitrogen 19 mg/dL (7-17); Calcium 7.8 mg/dL (8.4-10.2); Hemolysis Index 0
[2021-10-28 06:54] LABS: BUN/Creatinine Ratio 27
[2021-10-28 07:48] LABS: Blood Urea Nitrogen 19 mg/dL (7-17); Calcium 8.4 mg/dL (8.4-10.2); Hemolysis Index 1
[2021-10-28 07:49] LABS: BUN/Creatinine Ratio 27
[2021-10-28] MEDS ORDERED: SODIUM CHLORIDE 0.9% 500 ML 500 ML IV NR (07:54)
[2021-10-28] MEDS ORDERED: LORazepam 2 MG/ML VIAL IV PRN (08:00)
--- NOTE | 2021-10-28 11:25 | Electrocardiograph Report ---
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
--- NOTE | 2021-10-28 11:27 | Electrocardiograph Report ---
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
[2021-10-28] MEDS: METOPROLOL TARTRATE 25 MG TAB PO SCH ×4 (11:37→23:44)
[2021-10-28] MEDS: SCOPOLAMINE TRANSDERMAL PATCH 72 HR TD SCH (11:37)
[2021-10-28] MEDS: PANTOPRAZOLE 40 MG INJ IV SCH (11:38)
[2021-10-28] MEDS: INSULIN GLARGINE 100 UNITS/ML SUB-Q SCH (11:42)
[2021-10-28] MEDS: HEPARIN 5,000 UNIT/1 ML VIAL SUB-Q SCH ×2 (11:42→22:26)
--- NOTE | 2021-10-28 12:06 | Progress Note ---
Assessment and Plan Cultures: 09/24/2021 blood culture: No growth 09/30/2021 YURIDIA drain wound culture: VRE - Enterococcus faecium 10/08/2021 blood culture: No growth 10/11/2021 intra-abdominal surgical culture: Jo Ann albicans, MSSA, Stenotrophomonas 10/12/2021 tracheal culture: No growth 10/18/2021 blood culture: no growth 10/18/2021 urine culture: no growth 10/18/2021 sputum culture: Stenotrophomonas A/P: 31-year-old female past medical history obesity, nephrolithiasis admitted with: #Sepsis: Secondary to intra-abdominal infection. 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 pna, fluid overload more likely. Extubated 08/20/2021. Cultures grew Stenotrophomonas. #Leukocytosis, reactive thrombocytosis #BRYANNA: resolved. #Obesity Recs: -remains afebrile, WBC stable, continue to monitor off abx Mónica Swan MD, FACP, [facility] O: [phone] F: [phone] C: [phone] Subjective Date of service: 10/28/21 Principal diagnosis: Septic shock; AHRF; PNA; BRYANNA; s/p appendectomy; VRE infection; Peritonitis Interval history: Afebrile. Denies any complaints. NG tube was removed. Remains in sinus tach. Objective - Exam Narrative Exam: Physical Exam: Constitutional: Awake, alert, no distress Head, Ears, Nose: Normocephalic, atraumatic. External ears, nose normal Eyes: Conjunctivae/corneas clear. No icterus. No ptosis. Neck: supple Cardiovascular: S1, S2 + Respiratory: AE fair bilaterally GI: Soft, dressing, drain present, colostomy + Musculoskeletal: Obese, edema + Skin: No rash or abscess Hem/Lymphatic: No palpable cervical or supraclavicular nodes. No lymphangitis Psych: anxious, no agitation Neurological: Awake, alert, answering questions - Constitutional Vitals: Vital Signs Temp Pulse Resp BP Pulse Ox 99.0 F 137 H 39 H 144/105 100 10/28/21 12:00 10/28/21 11:37 10/28/21 09:45 10/28/21 11:37 10/28/21 09:45 Temperature -Last 24 Hours Temperature 99.0 F Temperature 98.2 F Temperature 98.2 F Temperature 98.6 F Temperature 98.4 F Temperature 99.5 F - Labs CBC & Chem 7: 10/28/21 06:15 10/28/21 07:15 Labs: Abnormal lab results 10/27/21 10/27/21 10/27/21 Range/Units 11:26 22:34 23:36 WBC (4.5-11.0) K/mm3 RBC (3.65-5.03) M/mm3 Hgb (10.1-14.3) gm/dl Hct (30.3-42.9) % MCV (79-97) fl MCHC (30-34) % RDW (13.2-15.2) % Plt Count (140-440) K/mm3 Sodium (137-145) mmol/L Potassium (3.6-5.0) mmol/L Chloride (98-107) mmol/L Carbon Dioxide (22-30) mmol/L BUN (7-17) mg/dL Glucose (65-100) mg/dL POC Glucose 125 H 112 H 121 H (70-105) mg/dL Calcium (8.4-10.2) mg/dL Phosphorus (2.5-4.5) mg/dL Magnesium (1.7-2.3) mg/dL 10/28/21 10/28/21 10/28/21 Range/Units 05:10 06:15 06:15 WBC 12.1 H (4.5-11.0) K/mm3 RBC 2.42 L (3.65-5.03) M/mm3 Hgb 7.0 L (10.1-14.3) gm/dl Hct 24.1 L (30.3-42.9) % MCV 99 H (79-97) fl MCHC 29 L (30-34) % RDW 19.2 H (13.2-15.2) % Plt Count 484 H (140-440) K/mm3 Sodium 126 L D (137-145) mmol/L Potassium 6.6 H* D (3.6-5.0) mmol/L Chloride 86.6 L (98-107) mmol/L Carbon Dioxide 17 L (22-30) mmol/L BUN 19 H (7-17) mg/dL Glucose (65-100) mg/dL POC Glucose 130 H (70-105) mg/dL Calcium 7.8 L (8.4-10.2) mg/dL Phosphorus 11.90 H D (2.5-4.5) mg/dL Magnesium 2.40 H (1.7-2.3) mg/dL 10/28/21 Range/Units 07:15 WBC (4.5-11.0) K/mm3 RBC (3.65-5.03) M/mm3 Hgb (10.1-14.3) gm/dl Hct (30.3-42.9) % MCV (79-97) fl MCHC (30-34) % RDW (13.2-15.2) % Plt Count (140-440) K/mm3 Sodium 134 L D (137-145) mmol/L Potassium (3.6-5.0) mmol/L Chloride 97.6 L (98-107) mmol/L Carbon Dioxide (22-30) mmol/L BUN 19 H (7-17) mg/dL Glucose 137 H (65-100) mg/dL POC Glucose (70-105) mg/dL Calcium (8.4-10.2) mg/dL Phosphorus (2.5-4.5) mg/dL Magnesium (1.7-2.3) mg/dL
[2021-10-28] MEDS: ALPRAZolam 1 MG TAB PO SCH ×2 (13:24→22:26)
[2021-10-28] MEDS: ACETAMINOPHEN IV 1,000 MG/100 ML BOTTLE IV SCH (13:31)
--- NOTE | 2021-10-28 14:11 | Progress Note ---
Assessment and Plan Postop day #14 status post colostomy creation with closure of abdomen. Afebrile and stable withi persistent tachycardia. Leukocytosis stable at 12. Awaiting full return of bowel function. will trial mag citrate to stimulate BM. Sputum culture positive for gram-negative rods. Pt finished course abx per ID. Respiratory insufficiency - continue BIPAP per pulmonary prn. Would like to increase PT exercises as tolerated. NGT removed. sill start trial of ice chips and water Creatinine has normalized she is making good urine output. Continue supportive care. Since pt expresses a lot of anxiety, depression and frustration. medical therapy per behavioral health recommendations. Postop day #17 status post colorectal anastomosis takedown, with abdominal washout and ABThera wound VAC. Postop day #25 status post laparoscopic converted to open left hemicolectomy with appendectomy for perforated appendicitis with fistulization to sigmoid colon. Subjective Date of service: 10/28/21 Narrative: No acute events overnight. Patient very frustrated during this evaluation. Patient says that she just wants to go home and she is tired. Denies any nausea vomiting. Saying she is having 5-6 out of 10 abdominal pain that is controlled with medication. Patient is being evaluated by cardiology for persistent tachycardia. Objective Vital Signs - 12hr 10/28/21 10/28/21 10/28/21 02:31 03:01 03:31 Temperature Pulse Rate 109 H 112 H 132 H Pulse Rate [ From Monitor] Respiratory 28 H 27 H 29 H Rate Blood Pressure 134/95 134/95 134/95 O2 Sat by Pulse 95 97 Oximetry 10/28/21 10/28/21 10/28/21 04:00 04:01 04:31 Temperature 98.2 F Pulse Rate 125 H 145 H 136 H Pulse Rate [ From Monitor] Respiratory 39 H 38 H Rate Blood Pressure 134/95 134/95 O2 Sat by Pulse 99 Oximetry 10/28/21 10/28/21 10/28/21 05:01 05:31 06:01 Temperature Pulse Rate 131 H 134 H Pulse Rate [ From Monitor] Respiratory 27 H 44 H 16 Rate Blood Pressure 134/95 162/110 162/110 O2 Sat by Pulse 100 Oximetry 10/28/21 10/28/21 10/28/21 06:31 07:01 07:31 Temperature Pulse Rate 120 H 138 H 142 H Pulse Rate [ From Monitor] Respiratory 18 28 H 25 H Rate Blood Pressure 166/92 146/89 167/92 O2 Sat by Pulse 100 Oximetry 10/28/21 10/28/21 10/28/21 08:00 08:31 09:01 Temperature 98.2 F Pulse Rate 145 H 142 H 148 H Pulse Rate [ 145 H From Monitor] Respiratory 42 H 34 H 41 H Rate Blood Pressure 163/123 163/123 163/123 O2 Sat by Pulse 99 63 L Oximetry 10/28/21 10/28/21 10/28/21 09:10 09:30 09:45 Temperature Pulse Rate 144 H 125 H 125 H Pulse Rate [ From Monitor] Respiratory 41 H 39 H Rate Blood Pressure 208/117 172/127 172/127 O2 Sat by Pulse 98 100 Oximetry 10/28/21 10/28/21 10/28/21 10:00 10:15 10:31 Temperature Pulse Rate 134 H 133 H 132 H Pulse Rate [ From Monitor] Respiratory 40 H 30 H 36 H Rate Blood Pressure 138/96 138/96 138/96 O2 Sat by Pulse 100 100 100 Oximetry 10/28/21 10/28/21 10/28/21 10:45 11:00 11:15 Temperature Pulse Rate 133 H 135 H 136 H Pulse Rate [ From Monitor] Respiratory 29 H 40 H 43 H Rate Blood Pressure 138/96 145/118 145/118 O2 Sat by Pulse 100 98 100 Oximetry 10/28/21 10/28/21 10/28/21 11:31 11:37 11:45 Temperature Pulse Rate 136 H 137 H 138 H Pulse Rate [ From Monitor] Respiratory 39 H 40 H Rate Blood Pressure 145/118 144/105 144/105 O2 Sat by Pulse 82 L 85 Oximetry 10/28/21 10/28/21 10/28/21 12:00 12:15 12:30 Temperature 99.0 F Pulse Rate 136 H 136 H 140 H Pulse Rate [ From Monitor] Respiratory 40 H 37 H 31 H Rate Blood Pressure 144/104 144/104 146/108 O2 Sat by Pulse 98 98 97 Oximetry - General physical appearance well developed, moderate distress, no pain - Respiratory normal expansion, normal respiratory effort - Abdomen soft, not distended, other (midline incision intact, serous drainage from inferior portion. YURIDIA drain serous, left drain unchaged. colostomy pink with a small amount of stool in bag) - Labs 10/28/21 06:15 10/28/21 Unknown Diabetes panel 10/28/21 10/28/21 10/28/21 Range/Units 06:15 07:15 Unknown Sodium 126 L D 134 L D (137-145) mmol/L Potassium 6.6 H* D 4.3 D (3.6-5.0) mmol/L Chloride 86.6 L 97.6 L (98-107) mmol/L Carbon Dioxide 17 L 24 D (22-30) mmol/L BUN 19 H 19 H (7-17) mg/dL Creatinine 0.7 0.7 0.7 (0.6-1.2) mg/dL Glucose TNR 137 H Calcium 7.8 L 8.4 (8.4-10.2) mg/dL Calcium panel 10/28/21 10/28/21 Range/Units 06:15 07:15 Calcium 7.8 L 8.4 (8.4-10.2) mg/dL Phosphorus 11.90 H D 4.00 D (2.5-4.5) mg/dL Pituitary panel 10/28/21 10/28/21 10/28/21 Range/Units 06:15 07:15 Unknown Sodium 126 L D 134 L D (137-145) mmol/L Potassium 6.6 H* D 4.3 D (3.6-5.0) mmol/L Chloride 86.6 L 97.6 L (98-107) mmol/L Carbon Dioxide 17 L 24 D (22-30) mmol/L BUN 19 H 19 H (7-17) mg/dL Creatinine 0.7 0.7 0.7 (0.6-1.2) mg/dL Glucose TNR 137 H Calcium 7.8 L 8.4 (8.4-10.2) mg/dL Adrenal panel 10/28/21 10/28/21 10/28/21 Range/Units 06:15 07:15 Unknown Sodium 126 L D 134 L D (137-145) mmol/L Potassium 6.6 H* D 4.3 D (3.6-5.0) mmol/L Chloride 86.6 L 97.6 L (98-107) mmol/L Carbon Dioxide 17 L 24 D (22-30) mmol/L BUN 19 H 19 H (7-17) mg/dL Creatinine 0.7 0.7 0.7 (0.6-1.2) mg/dL Glucose TNR 137 H Calcium 7.8 L 8.4 (8.4-10.2) mg/dL
--- NOTE | 2021-10-28 14:27 | Progress Note ---
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 heartburn - continue care as below otherwise; - continue TPN - advance oral diet per surgery - prn anxiolytics - wound care per RN / WCN under surgeons direction - continue to wean supplemental oxygen for target O2 sat's > 90% acutely - aspiration precautions - prn bronchodilators with pulmonary hygiene per RT - avoid nephrotoxins, renally dose all medications - continue accuchecks with glycemic control per SSI (While critically ill target blood glucose of 140-180 mg/dL; avoid hypoglycemia) - avoid benzodiazepine's, reduce the possibility of delirium - AB's per ID rec's (s/p Diflucan & Flagyl) - Maintenance of sleep-wake cycle, avoid delirium - continue enteral nutritional support at goal rate as tolerated - G.I. & VTE prophylaxis - PT/OT/ROM exercises - continue mobility protocols for pressure ulcer prophylaxis - Monitor hemodynamics closely - continue other care per attending / other consultants - discharge planning ongoing concurrently COVID SPECIFIC INTERVENTIONS - COVID-19 PCR negative .... 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 s/p appendectomy; VRE infection; Open left hemicolectomy and partial omentectomy; Peritonitis; Diverticulitis with abscess;' BRYANNA; ABLA; Gross Hematuria Seen and examined at bedside; 24hour events reviewed; nursing and respiratory care staff consulted; no adverse overnight events reported to me; resting in bed; no new issues respiratory-garcia but still with tachycardia and anxious; complains of 7/10 pleuritic chest pain; no hemoptysis Objective Vital Signs - 12hr 10/28/21 10/28/21 10/28/21 02:31 03:01 03:31 Temperature Pulse Rate 109 H 112 H 132 H Pulse Rate [ From Monitor] Respiratory 28 H 27 H 29 H Rate Blood Pressure 134/95 134/95 134/95 O2 Sat by Pulse 95 97 Oximetry 10/28/21 10/28/21 10/28/21 04:00 04:01 04:31 Temperature 98.2 F Pulse Rate 125 H 145 H 136 H Pulse Rate [ From Monitor] Respiratory 39 H 38 H Rate Blood Pressure 134/95 134/95 O2 Sat by Pulse 99 Oximetry 10/28/21 10/28/21 10/28/21 05:01 05:31 06:01 Temperature Pulse Rate 131 H 134 H Pulse Rate [ From Monitor] Respiratory 27 H 44 H 16 Rate Blood Pressure 134/95 162/110 162/110 O2 Sat by Pulse 100 Oximetry 10/28/21 10/28/21 10/28/21 06:31 07:01 07:31 Temperature Pulse Rate 120 H 138 H 142 H Pulse Rate [ From Monitor] Respiratory 18 28 H 25 H Rate Blood Pressure 166/92 146/89 167/92 O2 Sat by Pulse 100 Oximetry 10/28/21 10/28/21 10/28/21 08:00 08:31 09:01 Temperature 98.2 F Pulse Rate 145 H 142 H 148 H Pulse Rate [ 145 H From Monitor] Respiratory 42 H 34 H 41 H Rate Blood Pressure 163/123 163/123 163/123 O2 Sat by Pulse 99 63 L Oximetry 10/28/21 10/28/21 10/28/21 09:10 09:30 09:45 Temperature Pulse Rate 144 H 125 H 125 H Pulse Rate [ From Monitor] Respiratory 41 H 39 H Rate Blood Pressure 208/117 172/127 172/127 O2 Sat by Pulse 98 100 Oximetry 10/28/21 10/28/21 10/28/21 10:00 10:15 10:31 Temperature Pulse Rate 134 H 133 H 132 H Pulse Rate [ From Monitor] Respiratory 40 H 30 H 36 H Rate Blood Pressure 138/96 138/96 138/96 O2 Sat by Pulse 100 100 100 Oximetry 10/28/21 10/28/21 10/28/21 10:45 11:00 11:15 Temperature Pulse Rate 133 H 135 H 136 H Pulse Rate [ From Monitor] Respiratory 29 H 40 H 43 H Rate Blood Pressure 138/96 145/118 145/118 O2 Sat by Pulse 100 98 100 Oximetry 10/28/21 10/28/21 10/28/21 11:31 11:37 11:45 Temperature Pulse Rate 136 H 137 H 138 H Pulse Rate [ From Monitor] Respiratory 39 H 40 H Rate Blood Pressure 145/118 144/105 144/105 O2 Sat by Pulse 82 L 85 Oximetry 10/28/21 10/28/21 10/28/21 12:00 12:15 12:30 Temperature 99.0 F Pulse Rate 136 H 136 H 140 H Pulse Rate [ From Monitor] Respiratory 40 H 37 H 31 H Rate Blood Pressure 144/104 144/104 146/108 O2 Sat by Pulse 98 98 97 Oximetry 10/28/21 14:15 Temperature 98.9 F Pulse Rate 136 H Pulse Rate [ From Monitor] Respiratory 32 H Rate Blood Pressure 149/99 O2 Sat by Pulse 98 Oximetry Constitutional: appears uncomfortable, other (young obese female with mildly increased respiratory effort at rest) Eyes: non-icteric ENT: oropharynx moist Neck: supple, other (large circumference) Effort: mildly labored Ascultation: Bilateral: diminished breath sounds, rhonchi Percussion: Bilateral: not dull Cardiovascular: regular rate and rhythm, other (S1,S2) Gastrointestinal: hypoactive bowel sounds, soft, tender (mild), other (YURIDIA drains, colostomy) Integumentary: normal, other (post-op changes) Extremities: no cyanosis, pulses normal, no ischemia or petechiae, edema Neurologic: non-focal exam, pupils equal and round, CN II-XII normal, motor strength normal and Psychiatric: anxious CBC and BMP: 10/29/21 Unknown 10/28/21 Unknown ABG, PT/INR, D-dimer: ABG ABG pH 7.509 pH Units (7.350-7.450) H 10/21/21 09:05 ABG pCO2 33.7 mm Hg 10/21/21 09:05 ABG pO2 60.3 mm Hg (80.0-90.0) L 10/21/21 09:05 ABG O2 Saturation 97.5 % (95.0-99.0) 10/21/21 09:05 PT/INR, D-dimer PT 19.0 Sec. (12.2-14.9) H 10/14/21 04:05 INR 1.41 (0.87-1.13) H 10/14/21 04:05 D-Dimer > 23314 ng/mlDDU (0-234) H 10/09/21 08:45 Abnormal lab findings: Abnormal Labs 09/24/21 09/24/21 09/24/21 14:49 14:58 14:58 WBC 32.4 H RBC Hgb Hct MCV MCH MCHC RDW Plt Count 535 H Lymph % (Auto) [place] % (Auto) Lymph # (Auto) [place] # (Auto) Seg Neutrophils % Seg Neuts % (Manual) 82.0 H Lymphocytes % (Manual) 2.0 L Monocytes % (Manual) Nucleated RBC % Seg Neutrophils # Seg Neutrophils # Man 26.6 H Lymphocytes # (Manual) 0.6 L Monocytes # (Manual) 1.6 H PT INR D-Dimer ABG pH ABG pO2 ABG HCO3 ABG O2 Saturation ABG Base Excess ABG Hemoglobin Oxyhemoglobin Sodium 134 L Potassium 3.5 L Chloride 97.6 L Carbon Dioxide BUN Creatinine Glucose 119 H POC Glucose Lactic Acid Calcium Phosphorus Magnesium Ferritin AST ALT Lactate Dehydrogenase Total Creatine Kinase C-Reactive Protein Total Protein 6.1 L Albumin 3.3 L Triglycerides Urine Blood Urine WBC (Auto) U Epithel Cells (Auto) 18.0 H Crossmatch 09/25/21 09/25/21 09/26/21 05:47 05:47 04:20 WBC 25.4 H 23.6 H RBC 3.54 L Hgb Hct MCV MCH MCHC RDW Plt Count 466 H 486 H Lymph % (Auto) [place] % (Auto) Lymph # (Auto) [place] # (Auto) Seg Neutrophils % Seg Neuts % (Manual) 93.0 H 86.0 H Lymphocytes % (Manual) 4.0 L 3.0 L Monocytes % (Manual) Nucleated RBC % Seg Neutrophils # Seg Neutrophils # Man 23.6 H 20.3 H Lymphocytes # (Manual) 1.0 L 0.7 L Monocytes # (Manual) 0.9 H PT INR D-Dimer ABG pH ABG pO2 ABG HCO3 ABG O2 Saturation ABG Base Excess ABG Hemoglobin Oxyhemoglobin Sodium 136 L Potassium 3.0 L Chloride Carbon Dioxide 21 L BUN Creatinine Glucose POC Glucose Lactic Acid Calcium 7.8 L Phosphorus Magnesium Ferritin AST ALT Lactate Dehydrogenase Total Creatine Kinase C-Reactive Protein Total Protein Albumin Triglycerides Urine Blood Urine WBC (Auto) U Epithel Cells (Auto) Crossmatch 09/26/21 09/27/21 09/27/21 04:20 08:28 08:28 WBC 20.6 H RBC 3.42 L Hgb 9.9 L Hct 29.5 L D MCV MCH MCHC RDW Plt Count Lymph % (Auto) [place] % (Auto) Lymph # (Auto) [place] # (Auto) Seg Neutrophils % Seg Neuts % (Manual) 94.1 H Lymphocytes % (Manual) 1.0 L Monocytes % (Manual) Nucleated RBC % Seg Neutrophils # Seg Neutrophils # Man 19.4 H Lymphocytes # (Manual) 0.2 L Monocytes # (Manual) PT INR D-Dimer ABG pH ABG pO2 ABG HCO3 ABG O2 Saturation ABG Base Excess ABG Hemoglobin Oxyhemoglobin Sodium Potassium 3.2 L Chloride Carbon Dioxide 20 L BUN Creatinine Glucose 137 H POC Glucose Lactic Acid Calcium 8.3 L 8.2 L Phosphorus Magnesium Ferritin AST ALT Lactate Dehydrogenase Total Creatine Kinase C-Reactive Protein Total Protein Albumin Triglycerides Urine Blood Urine WBC (Auto) U Epithel Cells (Auto) Crossmatch 09/28/21 09/28/21 09/29/21 04:55 15:35 07:02 WBC 15.1 H 16.5 H RBC 3.34 L 3.20 L Hgb 9.3 L 9.1 L Hct 28.7 L 27.3 L MCV MCH MCHC RDW 15.3 H Plt Count 444 H 469 H Lymph % (Auto) [place] % (Auto) Lymph # (Auto) [place] # (Auto) 0.9 H Seg Neutrophils % 89.3 H Seg Neuts % (Manual) 88.0 H 80.0 H Lymphocytes % (Manual) 9.0 L 8.0 L Monocytes % (Manual) Nucleated RBC % Seg Neutrophils # 14.0 H Seg Neutrophils # Man 13.3 H 13.2 H Lymphocytes # (Manual) Monocytes # (Manual) PT INR D-Dimer ABG pH ABG pO2 ABG HCO3 ABG O2 Saturation ABG Base Excess ABG Hemoglobin Oxyhemoglobin Sodium Potassium 3.3 L Chloride 109.4 H Carbon Dioxide 20 L BUN Creatinine 0.5 L Glucose POC Glucose Lactic Acid Calcium 7.9 L Phosphorus Magnesium Ferritin AST ALT Lactate Dehydrogenase Total Creatine Kinase C-Reactive Protein Total Protein Albumin Triglycerides Urine Blood Urine WBC (Auto) U Epithel Cells (Auto) Crossmatch 09/30/21 09/30/21 10/01/21 05:40 05:40 07:49 WBC 17.4 H 17.9 H RBC 3.37 L 3.32 L Hgb 9.2 L 9.3 L Hct 28.4 L 28.3 L MCV MCH 27 L MCHC RDW 15.4 H 15.5 H Plt Count 530 H 604 H Lymph % (Auto) [place] % (Auto) Lymph # (Auto) [place] # (Auto) Seg Neutrophils % Seg Neuts % (Manual) 91.0 H 72.0 H Lymphocytes % (Manual) 9.0 L 1.0 L Monocytes % (Manual) 8.0 H Nucleated RBC % 1.0 H Seg Neutrophils # Seg Neutrophils # Man 15.8 H 12.9 H Lymphocytes # (Manual) 0.2 L Monocytes # (Manual) 1.4 H PT INR D-Dimer ABG pH ABG pO2 ABG HCO3 ABG O2 Saturation ABG Base Excess ABG Hemoglobin Oxyhemoglobin Sodium Potassium 3.5 L Chloride Carbon Dioxide 21 L BUN Creatinine 0.5 L Glucose POC Glucose Lactic Acid Calcium 8.0 L Phosphorus Magnesium Ferritin AST ALT Lactate Dehydrogenase Total Creatine Kinase C-Reactive Protein Total Protein Albumin Triglycerides Urine Blood Urine WBC (Auto) U Epithel Cells (Auto) Crossmatch 10/01/21 10/01/21 10/02/21 07:49 10:45 05:41 WBC 23.2 H RBC 2.90 L Hgb 7.9 L Hct 24.8 L MCV MCH 27 L MCHC RDW 15.3 H Plt Count 621 H Lymph % (Auto) [place] % (Auto) Lymph # (Auto) [place] # (Auto) Seg Neutrophils % Seg Neuts % (Manual) 88.0 H Lymphocytes % (Manual) 2.0 L Monocytes % (Manual) Nucleated RBC % Seg Neutrophils # Seg Neutrophils # Man 20.4 H Lymphocytes # (Manual) 0.5 L Monocytes # (Manual) 1.4 H PT INR D-Dimer ABG pH ABG pO2 ABG HCO3 ABG O2 Saturation ABG Base Excess ABG Hemoglobin Oxyhemoglobin Sodium Potassium Chloride Carbon Dioxide 20 L BUN Creatinine 0.5 L Glucose POC Glucose Lactic Acid Calcium 7.6 L Phosphorus Magnesium Ferritin AST ALT Lactate Dehydrogenase Total Creatine Kinase C-Reactive Protein Total Protein Albumin Triglycerides Urine Blood Urine WBC (Auto) U Epithel Cells (Auto) Crossmatch See Detail 10/02/21 10/02/21 10/02/21 05:41 07:47 11:10 WBC RBC Hgb Hct MCV MCH MCHC RDW Plt Count Lymph % (Auto) [place] % (Auto) Lymph # (Auto) [place] # (Auto) Seg Neutrophils % Seg Neuts % (Manual) Lymphocytes % (Manual) Monocytes % (Manual) Nucleated RBC % Seg Neutrophils # Seg Neutrophils # Man Lymphocytes # (Manual) Monocytes # (Manual) PT INR D-Dimer ABG pH ABG pO2 ABG HCO3 ABG O2 Saturation ABG Base Excess ABG Hemoglobin Oxyhemoglobin Sodium Potassium Chloride Carbon Dioxide BUN Creatinine Glucose 130 H POC Glucose 145 H 120 H Lactic Acid Calcium 6.9 L Phosphorus Magnesium Ferritin AST ALT Lactate Dehydrogenase Total Creatine Kinase C-Reactive Protein Total Protein Albumin Triglycerides Urine Blood Urine WBC (Auto) U Epithel Cells (Auto) Crossmatch 10/02/21 10/03/21 10/03/21 16:14 04:55 04:55 WBC 26.1 H RBC 2.31 L Hgb 6.3 L Hct 19.8 L* MCV MCH MCHC RDW 15.9 H Plt Count 598 H Lymph % (Auto) [place] % (Auto) Lymph # (Auto) [place] # (Auto) Seg Neutrophils % Seg Neuts % (Manual) 82.0 H Lymphocytes % (Manual) 1.0 L Monocytes % (Manual) 10.0 H Nucleated RBC % Seg Neutrophils # Seg Neutrophils # Man 21.4 H Lymphocytes # (Manual) 0.3 L Monocytes # (Manual) 2.6 H PT INR D-Dimer ABG pH ABG pO2 ABG HCO3 ABG O2 Saturation ABG Base Excess ABG Hemoglobin Oxyhemoglobin Sodium Potassium Chloride Carbon Dioxide BUN 22 H Creatinine 1.7 H D Glucose 145 H POC Glucose 109 H Lactic Acid Calcium 6.4 L Phosphorus Magnesium 2.40 H Ferritin AST ALT Lactate Dehydrogenase Total Creatine Kinase C-Reactive Protein Total Protein 4.2 L Albumin 1.6 L Triglycerides Urine Blood Urine WBC (Auto) U Epithel Cells (Auto) Crossmatch 10/03/21 10/03/21 10/03/21 07:15 11:49 17:06 WBC RBC Hgb Hct MCV MCH MCHC RDW Plt Count Lymph % (Auto) [place] % (Auto) Lymph # (Auto) [place] # (Auto) Seg Neutrophils % Seg Neuts % (Manual) Lymphocytes % (Manual) Monocytes % (Manual) Nucleated RBC % Seg Neutrophils # Seg Neutrophils # Man Lymphocytes # (Manual) Monocytes # (Manual) PT INR D-Dimer ABG pH ABG pO2 ABG HCO3 ABG O2 Saturation ABG Base Excess ABG Hemoglobin Oxyhemoglobin Sodium Potassium Chloride Carbon Dioxide BUN Creatinine Glucose POC Glucose 162 H 171 H 174 H Lactic Acid Calcium Phosphorus Magnesium Ferritin AST ALT Lactate Dehydrogenase Total Creatine Kinase C-Reactive Protein Total Protein Albumin Triglycerides Urine Blood Urine WBC (Auto) U Epithel Cells (Auto) Crossmatch 10/03/21 10/04/21 10/04/21 23:31 04:44 04:44 WBC 26.4 H RBC 2.33 L Hgb 6.6 L Hct 19.4 L* MCV MCH MCHC RDW 16.1 H Plt Count 602 H Lymph % (Auto) [place] % (Auto) Lymph # (Auto) [place] # (Auto) Seg Neutrophils % Seg Neuts % (Manual) 80.0 H Lymphocytes % (Manual) 5.0 L Monocytes % (Manual) Nucleated RBC % Seg Neutrophils # Seg Neutrophils # Man 21.1 H Lymphocytes # (Manual) Monocytes # (Manual) 1.8 H PT INR D-Dimer ABG pH ABG pO2 ABG HCO3 ABG O2 Saturation ABG Base Excess ABG Hemoglobin Oxyhemoglobin Sodium 135 L Potassium 3.4 L Chloride Carbon Dioxide 21 L BUN 28 H Creatinine 2.0 H Glucose 171 H POC Glucose 179 H Lactic Acid Calcium 6.7 L Phosphorus 1.30 L D Magnesium 2.40 H Ferritin AST ALT Lactate Dehydrogenase Total Creatine Kinase C-Reactive Protein Total Protein Albumin Triglycerides Urine Blood Urine WBC (Auto) U Epithel Cells (Auto) Crossmatch 10/04/21 10/04/21 10/04/21 05:25 12:01 13:30 WBC RBC Hgb Hct MCV MCH MCHC RDW Plt Count Lymph % (Auto) [place] % (Auto) Lymph # (Auto) [place] # (Auto) Seg Neutrophils % Seg Neuts % (Manual) Lymphocytes % (Manual) Monocytes % (Manual) Nucleated RBC % Seg Neutrophils # Seg Neutrophils # Man Lymphocytes # (Manual) Monocytes # (Manual) PT INR D-Dimer ABG pH ABG pO2 ABG HCO3 ABG O2 Saturation ABG Base Excess ABG Hemoglobin Oxyhemoglobin Sodium Potassium Chloride Carbon Dioxide BUN Creatinine Glucose POC Glucose 174 H 172 H Lactic Acid Calcium Phosphorus Magnesium Ferritin AST ALT Lactate Dehydrogenase Total Creatine Kinase C-Reactive Protein Total Protein Albumin Triglycerides Urine Blood Urine WBC (Auto) U Epithel Cells (Auto) Crossmatch See Detail 10/04/21 10/04/21 10/04/21 16:47 20:28 22:23 WBC RBC Hgb 8.5 L Hct 25.1 L MCV MCH MCHC RDW Plt Count Lymph % (Auto) [place] % (Auto) Lymph # (Auto) [place] # (Auto) Seg Neutrophils % Seg Neuts % (Manual) Lymphocytes % (Manual) Monocytes % (Manual) Nucleated RBC % Seg Neutrophils # Seg Neutrophils # Man Lymphocytes # (Manual) Monocytes # (Manual) PT INR D-Dimer ABG pH ABG pO2 ABG HCO3 ABG O2 Saturation ABG Base Excess ABG Hemoglobin Oxyhemoglobin Sodium Potassium Chloride Carbon Dioxide BUN Creatinine Glucose POC Glucose 135 H 152 H Lactic Acid Calcium Phosphorus Magnesium Ferritin AST ALT Lactate Dehydrogenase Total Creatine Kinase C-Reactive Protein Total Protein Albumin Triglycerides Urine Blood Urine WBC (Auto) U Epithel Cells (Auto) Crossmatch 10/05/21 10/05/21 10/05/21 04:40 04:40 04:40 WBC 24.7 H RBC 3.02 L Hgb 8.4 L Hct 25.5 L MCV MCH MCHC RDW 16.2 H Plt Count 644 H Lymph % (Auto) [place] % (Auto) Lymph # (Auto) [place] # (Auto) Seg Neutrophils % Seg Neuts % (Manual) 91.0 H Lymphocytes % (Manual) 7.0 L Monocytes % (Manual) Nucleated RBC % Seg Neutrophils # Seg Neutrophils # Man 22.5 H Lymphocytes # (Manual) Monocytes # (Manual) PT 17.8 H INR 1.31 H D-Dimer ABG pH ABG pO2 ABG HCO3 ABG O2 Saturation ABG Base Excess ABG Hemoglobin Oxyhemoglobin Sodium 135 L Potassium Chloride Carbon Dioxide BUN 29 H Creatinine 2.1 H Glucose 156 H POC Glucose Lactic Acid Calcium 7.6 L Phosphorus 1.90 L D Magnesium Ferritin AST ALT Lactate Dehydrogenase Total Creatine Kinase C-Reactive Protein Total Protein 5.2 L D Albumin 1.8 L Triglycerides Urine Blood Urine WBC (Auto) U Epithel Cells (Auto) Crossmatch 10/05/21 10/05/21 10/05/21 05:08 18:17 23:37 WBC RBC Hgb Hct MCV MCH MCHC RDW Plt Count Lymph % (Auto) [place] % (Auto) Lymph # (Auto) [place] # (Auto) Seg Neutrophils % Seg Neuts % (Manual) Lymphocytes % (Manual) Monocytes % (Manual) Nucleated RBC % Seg Neutrophils # Seg Neutrophils # Man Lymphocytes # (Manual) Monocytes # (Manual) PT INR D-Dimer ABG pH ABG pO2 ABG HCO3 ABG O2 Saturation ABG Base Excess ABG Hemoglobin Oxyhemoglobin Sodium Potassium Chloride Carbon Dioxide BUN Creatinine Glucose POC Glucose 156 H 119 H 130 H Lactic Acid Calcium Phosphorus Magnesium Ferritin AST ALT Lactate Dehydrogenase Total Creatine Kinase C-Reactive Protein Total Protein Albumin Triglycerides Urine Blood Urine WBC (Auto) U Epithel Cells (Auto) Crossmatch 10/06/21 10/06/21 10/06/21 04:27 05:27 05:27 WBC 23.4 H RBC 2.84 L Hgb 7.8 L Hct 23.9 L MCV MCH MCHC RDW 16.2 H Plt Count 712 H Lymph % (Auto) [place] % (Auto) Lymph # (Auto) [place] # (Auto) Seg Neutrophils % Seg Neuts % (Manual) Lymphocytes % (Manual) Monocytes % (Manual) Nucleated RBC % Seg Neutrophils # Seg Neutrophils # Man Lymphocytes # (Manual) Monocytes # (Manual) PT INR D-Dimer ABG pH ABG pO2 ABG HCO3 ABG O2 Saturation ABG Base Excess ABG Hemoglobin Oxyhemoglobin Sodium 134 L Potassium Chloride Carbon Dioxide 20 L BUN 28 H Creatinine 1.9 H Glucose 132 H POC Glucose 132 H Lactic Acid Calcium 7.8 L Phosphorus Magnesium Ferritin AST ALT Lactate Dehydrogenase Total Creatine Kinase 242 H C-Reactive Protein Total Protein Albumin Triglycerides Urine Blood Urine WBC (Auto) U Epithel Cells (Auto) Crossmatch 10/06/21 10/06/21 10/06/21 16:40 20:50 23:39 WBC RBC Hgb Hct MCV MCH MCHC RDW Plt Count Lymph % (Auto) [place] % (Auto) Lymph # (Auto) [place] # (Auto) Seg Neutrophils % Seg Neuts % (Manual) Lymphocytes % (Manual) Monocytes % (Manual) Nucleated RBC % Seg Neutrophils # Seg Neutrophils # Man Lymphocytes # (Manual) Monocytes # (Manual) PT INR D-Dimer ABG pH ABG pO2 ABG HCO3 ABG O2 Saturation ABG Base Excess ABG Hemoglobin Oxyhemoglobin Sodium Potassium Chloride Carbon Dioxide BUN Creatinine Glucose POC Glucose 133 H 116 H 132 H Lactic Acid Calcium Phosphorus Magnesium Ferritin AST ALT Lactate Dehydrogenase Total Creatine Kinase C-Reactive Protein Total Protein Albumin Triglycerides Urine Blood Urine WBC (Auto) U Epithel Cells (Auto) Crossmatch 10/07/21 10/07/21 10/07/21 05:09 05:13 09:43 WBC 22.3 H RBC 2.81 L Hgb 7.8 L Hct 24.0 L MCV MCH MCHC RDW 16.5 H Plt Count 733 H Lymph % (Auto) [place] % (Auto) Lymph # (Auto) [place] # (Auto) Seg Neutrophils % Seg Neuts % (Manual) 85.0 H Lymphocytes % (Manual) 1.0 L Monocytes % (Manual) Nucleated RBC % Seg Neutrophils # Seg Neutrophils # Man 19.0 H Lymphocytes # (Manual) 0.2 L Monocytes # (Manual) 1.6 H PT INR D-Dimer ABG pH ABG pO2 ABG HCO3 ABG O2 Saturation ABG Base Excess ABG Hemoglobin Oxyhemoglobin Sodium 136 L Potassium Chloride Carbon Dioxide 20 L BUN 29 H Creatinine 1.9 H Glucose 140 H POC Glucose 139 H Lactic Acid Calcium 7.6 L Phosphorus Magnesium Ferritin AST ALT Lactate Dehydrogenase Total Creatine Kinase C-Reactive Protein Total Protein Albumin Triglycerides Urine Blood Urine WBC (Auto) U Epithel Cells (Auto) Crossmatch 10/07/21 10/07/21 10/08/21 11:38 17:44 00:20 WBC RBC Hgb Hct MCV MCH MCHC RDW Plt Count Lymph % (Auto) [place] % (Auto) Lymph # (Auto) [place] # (Auto) Seg Neutrophils % Seg Neuts % (Manual) Lymphocytes % (Manual) Monocytes % (Manual) Nucleated RBC % Seg Neutrophils # Seg Neutrophils # Man Lymphocytes # (Manual) Monocytes # (Manual) PT INR D-Dimer ABG pH ABG pO2 ABG HCO3 ABG O2 Saturation ABG Base Excess ABG Hemoglobin Oxyhemoglobin Sodium Potassium Chloride Carbon Dioxide BUN Creatinine Glucose POC Glucose 126 H 113 H 129 H Lactic Acid Calcium Phosphorus Magnesium Ferritin AST ALT Lactate Dehydrogenase Total Creatine Kinase C-Reactive Protein Total Protein Albumin Triglycerides Urine Blood Urine WBC (Auto) U Epithel Cells (Auto) Crossmatch 10/08/21 10/08/21 10/08/21 05:26 05:26 05:29 WBC 21.8 H RBC 2.84 L Hgb 7.8 L Hct 24.1 L MCV MCH 27 L MCHC RDW 16.5 H Plt Count 789 H Lymph % (Auto) [place] % (Auto) Lymph # (Auto) [place] # (Auto) Seg Neutrophils % Seg Neuts % (Manual) Lymphocytes % (Manual) Monocytes % (Manual) Nucleated RBC % Seg Neutrophils # Seg Neutrophils # Man Lymphocytes # (Manual) Monocytes # (Manual) PT INR D-Dimer ABG pH ABG pO2 ABG HCO3 ABG O2 Saturation ABG Base Excess ABG Hemoglobin Oxyhemoglobin Sodium 136 L Potassium Chloride Carbon Dioxide 20 L BUN 31 H Creatinine 1.7 H Glucose 134 H POC Glucose 123 H Lactic Acid Calcium 7.9 L Phosphorus 4.60 H D Magnesium Ferritin AST ALT Lactate Dehydrogenase Total Creatine Kinase C-Reactive Protein Total Protein Albumin Triglycerides Urine Blood Urine WBC (Auto) U Epithel Cells (Auto) Crossmatch 10/08/21 10/08/21 10/08/21 11:53 17:07 20:08 WBC RBC Hgb Hct MCV MCH MCHC RDW Plt Count Lymph % (Auto) [place] % (Auto) Lymph # (Auto) [place] # (Auto) Seg Neutrophils % Seg Neuts % (Manual) Lymphocytes % (Manual) Monocytes % (Manual) Nucleated RBC % Seg Neutrophils # Seg Neutrophils # Man Lymphocytes # (Manual) Monocytes # (Manual) PT INR D-Dimer ABG pH 7.308 L ABG pO2 40.2 L ABG HCO3 15.7 L ABG O2 Saturation 68 L ABG Base Excess -9.6 L ABG Hemoglobin 9.7 L Oxyhemoglobin 67.8 L Sodium Potassium Chloride Carbon Dioxide BUN Creatinine Glucose POC Glucose 128 H 139 H Lactic Acid Calcium Phosphorus Magnesium Ferritin AST ALT Lactate Dehydrogenase Total Creatine Kinase C-Reactive Protein Total Protein Albumin Triglycerides Urine Blood Urine WBC (Auto) U Epithel Cells (Auto) Crossmatch 10/08/21 10/08/21 10/08/21 21:30 22:55 22:55 WBC RBC Hgb Hct MCV MCH MCHC RDW Plt Count Lymph % (Auto) [place] % (Auto) Lymph # (Auto) [place] # (Auto) Seg Neutrophils % Seg Neuts % (Manual) Lymphocytes % (Manual) Monocytes % (Manual) Nucleated RBC % Seg Neutrophils # Seg Neutrophils # Man Lymphocytes # (Manual) Monocytes # (Manual) PT INR D-Dimer ABG pH ABG pO2 43.8 L ABG HCO3 19.5 L ABG O2 Saturation 70.7 L ABG Base Excess -5.3 L ABG Hemoglobin 8.6 L Oxyhemoglobin 69.4 L Sodium Potassium Chloride Carbon Dioxide BUN Creatinine Glucose POC Glucose Lactic Acid 2.50 H* Calcium Phosphorus Magnesium Ferritin AST ALT Lactate Dehydrogenase Total Creatine Kinase C-Reactive Protein Total Protein Albumin Triglycerides Urine Blood Urine WBC (Auto) U Epithel Cells (Auto) Crossmatch See Detail 10/09/21 10/09/21 10/09/21 03:12 05:31 05:31 WBC 20.3 H RBC 2.70 L Hgb 7.4 L Hct 23.1 L MCV MCH 27 L MCHC RDW 16.6 H Plt Count 786 H Lymph % (Auto) [place] % (Auto) Lymph # (Auto) [place] # (Auto) Seg Neutrophils % Seg Neuts % (Manual) 88.0 H Lymphocytes % (Manual) 3.0 L Monocytes % (Manual) Nucleated RBC % Seg Neutrophils # Seg Neutrophils # Man 17.9 H Lymphocytes # (Manual) 0.6 L Monocytes # (Manual) 1.2 H PT INR D-Dimer ABG pH ABG pO2 ABG HCO3 ABG O2 Saturation ABG Base Excess ABG Hemoglobin Oxyhemoglobin Sodium 136 L Potassium Chloride Carbon Dioxide 20 L BUN 32 H Creatinine 1.5 H Glucose 214 H POC Glucose 190 H Lactic Acid Calcium 7.5 L Phosphorus Magnesium Ferritin AST ALT Lactate Dehydrogenase Total Creatine Kinase C-Reactive Protein Total Protein 5.8 L Albumin 2.3 L Triglycerides Urine Blood Urine WBC (Auto) U Epithel Cells (Auto) Crossmatch 10/09/21 10/09/21 10/09/21 05:31 05:31 05:31 WBC RBC Hgb Hct MCV MCH MCHC RDW Plt Count Lymph % (Auto) [place] % (Auto) Lymph # (Auto) [place] # (Auto) Seg Neutrophils % Seg Neuts % (Manual) Lymphocytes % (Manual) Monocytes % (Manual) Nucleated RBC % Seg Neutrophils # Seg Neutrophils # Man Lymphocytes # (Manual) Monocytes # (Manual) PT INR D-Dimer ABG pH ABG pO2 ABG HCO3 ABG O2 Saturation ABG Base Excess ABG Hemoglobin Oxyhemoglobin Sodium Potassium Chloride Carbon Dioxide BUN Creatinine Glucose POC Glucose Lactic Acid 2.20 H* Calcium Phosphorus Magnesium Ferritin 751.9 H AST ALT Lactate Dehydrogenase Total Creatine Kinase C-Reactive Protein 15.90 H Total Protein Albumin Triglycerides Urine Blood Urine WBC (Auto) U Epithel Cells (Auto) Crossmatch 10/09/21 10/09/21 10/09/21 05:31 08:45 12:08 WBC RBC Hgb Hct MCV MCH MCHC RDW Plt Count Lymph % (Auto) [place] % (Auto) Lymph # (Auto) [place] # (Auto) Seg Neutrophils % Seg Neuts % (Manual) Lymphocytes % (Manual) Monocytes % (Manual) Nucleated RBC % Seg Neutrophils # Seg Neutrophils # Man Lymphocytes # (Manual) Monocytes # (Manual) PT INR D-Dimer > 34205 H ABG pH ABG pO2 54.3 L ABG HCO3 ABG O2 Saturation 86.6 L ABG Base Excess -2.6 L ABG Hemoglobin 7.2 L Oxyhemoglobin 85.3 L Sodium Potassium Chloride Carbon Dioxide BUN Creatinine Glucose POC Glucose Lactic Acid Calcium Phosphorus Magnesium Ferritin AST ALT Lactate Dehydrogenase 472 H Total Creatine Kinase C-Reactive Protein Total Protein Albumin Triglycerides Urine Blood Urine WBC (Auto) U Epithel Cells (Auto) Crossmatch 10/09/21 10/09/21 10/10/21 12:19 17:43 00:30 WBC RBC Hgb Hct MCV MCH MCHC RDW Plt Count Lymph % (Auto) [place] % (Auto) Lymph # (Auto) [place] # (Auto) Seg Neutrophils % Seg Neuts % (Manual) Lymphocytes % (Manual) Monocytes % (Manual) Nucleated RBC % Seg Neutrophils # Seg Neutrophils # Man Lymphocytes # (Manual) Monocytes # (Manual) PT INR D-Dimer ABG pH ABG pO2 ABG HCO3 ABG O2 Saturation ABG Base Excess ABG Hemoglobin Oxyhemoglobin Sodium Potassium Chloride Carbon Dioxide BUN Creatinine Glucose POC Glucose 151 H 136 H 132 H Lactic Acid Calcium Phosphorus Magnesium Ferritin AST ALT Lactate Dehydrogenase Total Creatine Kinase C-Reactive Protein Total Protein Albumin Triglycerides Urine Blood Urine WBC (Auto) U Epithel Cells (Auto) Crossmatch 10/10/21 10/10/21 10/10/21 04:10 04:10 05:41 WBC 20.8 H RBC 2.54 L Hgb 7.1 L Hct 21.8 L MCV MCH MCHC RDW 16.6 H Plt Count 740 H Lymph % (Auto) [place] % (Auto) Lymph # (Auto) [place] # (Auto) Seg Neutrophils % Seg Neuts % (Manual) Lymphocytes % (Manual) Monocytes % (Manual) Nucleated RBC % Seg Neutrophils # Seg Neutrophils # Man Lymphocytes # (Manual) Monocytes # (Manual) PT INR D-Dimer ABG pH ABG pO2 ABG HCO3 ABG O2 Saturation ABG Base Excess ABG Hemoglobin Oxyhemoglobin Sodium 130 L Potassium Chloride 97.9 L Carbon Dioxide 19 L BUN 37 H Creatinine 1.4 H Glucose 181 H POC Glucose 150 H Lactic Acid Calcium 7.8 L Phosphorus Magnesium Ferritin AST ALT Lactate Dehydrogenase Total Creatine Kinase C-Reactive Protein Total Protein Albumin Triglycerides Urine Blood Urine WBC (Auto) U Epithel Cells (Auto) Crossmatch 10/10/21 10/10/21 10/10/21 11:10 16:00 23:50 WBC RBC Hgb Hct MCV MCH MCHC RDW Plt Count Lymph % (Auto) [place] % (Auto) Lymph # (Auto) [place] # (Auto) Seg Neutrophils % Seg Neuts % (Manual) Lymphocytes % (Manual) Monocytes % (Manual) Nucleated RBC % Seg Neutrophils # Seg Neutrophils # Man Lymphocytes # (Manual) Monocytes # (Manual) PT INR D-Dimer ABG pH ABG pO2 ABG HCO3 ABG O2 Saturation ABG Base Excess ABG Hemoglobin Oxyhemoglobin Sodium Potassium Chloride Carbon Dioxide BUN Creatinine Glucose POC Glucose 136 H 151 H 129 H Lactic Acid Calcium Phosphorus Magnesium Ferritin AST ALT Lactate Dehydrogenase Total Creatine Kinase C-Reactive Protein Total Protein Albumin Triglycerides Urine Blood Urine WBC (Auto) U Epithel Cells (Auto) Crossmatch 10/10/21 10/11/21 10/11/21 Unknown 03:30 03:30 WBC 23.2 H RBC 2.39 L Hgb 6.7 L Hct 20.3 L MCV MCH MCHC RDW 16.7 H Plt Count 701 H Lymph % (Auto) [place] % (Auto) Lymph # (Auto) [place] # (Auto) Seg Neutrophils % Seg Neuts % (Manual) Lymphocytes % (Manual) Monocytes % (Manual) Nucleated RBC % Seg Neutrophils # Seg Neutrophils # Man Lymphocytes # (Manual) Monocytes # (Manual) PT INR D-Dimer ABG pH 7.505 H ABG pO2 246.1 H ABG HCO3 ABG O2 Saturation 99.4 H ABG Base Excess ABG Hemoglobin 6.0 L Oxyhemoglobin Sodium 135 L Potassium Chloride Carbon Dioxide 20 L BUN 38 H Creatinine 1.6 H Glucose 118 H POC Glucose Lactic Acid Calcium 7.9 L Phosphorus Magnesium Ferritin AST ALT Lactate Dehydrogenase Total Creatine Kinase C-Reactive Protein Total Protein Albumin Triglycerides Urine Blood Urine WBC (Auto) U Epithel Cells (Auto) Crossmatch 10/11/21 10/11/21 10/12/21 11:41 17:51 00:18 WBC RBC Hgb Hct MCV MCH MCHC RDW Plt Count Lymph % (Auto) [place] % (Auto) Lymph # (Auto) [place] # (Auto) Seg Neutrophils % Seg Neuts % (Manual) Lymphocytes % (Manual) Monocytes % (Manual) Nucleated RBC % Seg Neutrophils # Seg Neutrophils # Man Lymphocytes # (Manual) Monocytes # (Manual) PT INR D-Dimer ABG pH ABG pO2 ABG HCO3 ABG O2 Saturation ABG Base Excess ABG Hemoglobin Oxyhemoglobin Sodium Potassium Chloride Carbon Dioxide BUN Creatinine Glucose POC Glucose 128 H 138 H 174 H Lactic Acid Calcium Phosphorus Magnesium Ferritin AST ALT Lactate Dehydrogenase Total Creatine Kinase C-Reactive Protein Total Protein Albumin Triglycerides Urine Blood Urine WBC (Auto) U Epithel Cells (Auto) Crossmatch 10/12/21 10/12/21 10/12/21 05:39 06:02 06:02 WBC 19.1 H RBC 3.56 L Hgb 10.0 L D Hct MCV MCH MCHC RDW 17.0 H Plt Count 712 H Lymph % (Auto) [place] % (Auto) Lymph # (Auto) [place] # (Auto) Seg Neutrophils % Seg Neuts % (Manual) Lymphocytes % (Manual) Monocytes % (Manual) Nucleated RBC % Seg Neutrophils # Seg Neutrophils # Man Lymphocytes # (Manual) Monocytes # (Manual) PT INR D-Dimer ABG pH ABG pO2 ABG HCO3 ABG O2 Saturation ABG Base Excess ABG Hemoglobin Oxyhemoglobin Sodium Potassium Chloride Carbon Dioxide BUN 37 H Creatinine 1.5 H Glucose 172 H POC Glucose 158 H Lactic Acid Calcium 8.1 L Phosphorus Magnesium Ferritin AST ALT Lactate Dehydrogenase Total Creatine Kinase C-Reactive Protein Total Protein Albumin Triglycerides Urine Blood Urine WBC (Auto) U Epithel Cells (Auto) Crossmatch 10/12/21 10/12/21 10/12/21 06:02 06:05 17:43 WBC RBC Hgb Hct MCV MCH MCHC RDW Plt Count Lymph % (Auto) [place] % (Auto) Lymph # (Auto) [place] # (Auto) Seg Neutrophils % Seg Neuts % (Manual) Lymphocytes % (Manual) Monocytes % (Manual) Nucleated RBC % Seg Neutrophils # Seg Neutrophils # Man Lymphocytes # (Manual) Monocytes # (Manual) PT 17.1 H INR 1.24 H D-Dimer ABG pH ABG pO2 ABG HCO3 ABG O2 Saturation ABG Base Excess ABG Hemoglobin Oxyhemoglobin Sodium Potassium Chloride Carbon Dioxide BUN Creatinine Glucose POC Glucose 173 H Lactic Acid Calcium Phosphorus Magnesium Ferritin AST ALT Lactate Dehydrogenase Total Creatine Kinase C-Reactive Protein Total Protein Albumin Triglycerides Urine Blood Urine WBC (Auto) U Epithel Cells (Auto) Crossmatch See Detail 10/12/21 10/12/21 10/13/21 23:28 Unknown 04:05 WBC RBC Hgb 10.0 L Hct MCV MCH MCHC RDW Plt Count Lymph % (Auto) [place] % (Auto) Lymph # (Auto) [place] # (Auto) Seg Neutrophils % Seg Neuts % (Manual) Lymphocytes % (Manual) Monocytes % (Manual) Nucleated RBC % Seg Neutrophils # Seg Neutrophils # Man Lymphocytes # (Manual) Monocytes # (Manual) PT INR D-Dimer ABG pH ABG pO2 ABG HCO3 ABG O2 Saturation ABG Base Excess ABG Hemoglobin Oxyhemoglobin Sodium Potassium Chloride Carbon Dioxide BUN 34 H Creatinine Glucose 200 H POC Glucose 178 H Lactic Acid Calcium 7.5 L Phosphorus Magnesium 1.60 L Ferritin AST ALT Lactate Dehydrogenase Total Creatine Kinase C-Reactive Protein Total Protein Albumin Triglycerides Urine Blood Urine WBC (Auto) U Epithel Cells (Auto) Crossmatch 10/13/21 10/13/21 10/13/21 05:09 10:55 13:34 WBC 23.8 H RBC 3.14 L Hgb 9.2 L Hct 27.7 L MCV MCH MCHC RDW 17.5 H Plt Count 572 H Lymph % (Auto) [place] % (Auto) Lymph # (Auto) [place] # (Auto) Seg Neutrophils % Seg Neuts % (Manual) Lymphocytes % (Manual) Monocytes % (Manual) Nucleated RBC % Seg Neutrophils # Seg Neutrophils # Man Lymphocytes # (Manual) Monocytes # (Manual) PT INR D-Dimer ABG pH ABG pO2 ABG HCO3 ABG O2 Saturation ABG Base Excess ABG Hemoglobin Oxyhemoglobin Sodium Potassium Chloride Carbon Dioxide BUN Creatinine Glucose POC Glucose 210 H 168 H Lactic Acid Calcium Phosphorus Magnesium Ferritin AST ALT Lactate Dehydrogenase Total Creatine Kinase C-Reactive Protein Total Protein Albumin Triglycerides Urine Blood Urine WBC (Auto) U Epithel Cells (Auto) Crossmatch 10/13/21 10/13/21 10/14/21 15:35 23:10 04:05 WBC 19.4 H RBC 2.98 L Hgb 8.4 L Hct 26.3 L MCV MCH MCHC RDW 17.1 H Plt Count 561 H Lymph % (Auto) [place] % (Auto) Lymph # (Auto) [place] # (Auto) Seg Neutrophils % Seg Neuts % (Manual) Lymphocytes % (Manual) Monocytes % (Manual) Nucleated RBC % Seg Neutrophils # Seg Neutrophils # Man Lymphocytes # (Manual) Monocytes # (Manual) PT INR D-Dimer ABG pH ABG pO2 ABG HCO3 ABG O2 Saturation ABG Base Excess ABG Hemoglobin Oxyhemoglobin Sodium Potassium Chloride Carbon Dioxide BUN Creatinine Glucose POC Glucose 154 H 135 H Lactic Acid Calcium Phosphorus Magnesium Ferritin AST ALT Lactate Dehydrogenase Total Creatine Kinase C-Reactive Protein Total Protein Albumin Triglycerides Urine Blood Urine WBC (Auto) U Epithel Cells (Auto) Crossmatch 10/14/21 10/14/21 10/14/21 04:05 04:05 05:08 WBC RBC Hgb Hct MCV MCH MCHC RDW Plt Count Lymph % (Auto) [place] % (Auto) Lymph # (Auto) [place] # (Auto) Seg Neutrophils % Seg Neuts % (Manual) Lymphocytes % (Manual) Monocytes % (Manual) Nucleated RBC % Seg Neutrophils # Seg Neutrophils # Man Lymphocytes # (Manual) Monocytes # (Manual) PT 19.0 H INR 1.41 H D-Dimer ABG pH ABG pO2 ABG HCO3 ABG O2 Saturation ABG Base Excess ABG Hemoglobin Oxyhemoglobin Sodium Potassium Chloride Carbon Dioxide BUN 33 H Creatinine Glucose 310 H POC Glucose 178 H Lactic Acid Calcium 7.4 L Phosphorus Magnesium Ferritin AST ALT Lactate Dehydrogenase Total Creatine Kinase C-Reactive Protein Total Protein Albumin Triglycerides Urine Blood Urine WBC (Auto) U Epithel Cells (Auto) Crossmatch 10/14/21 10/14/21 10/14/21 09:29 10:45 11:40 WBC RBC Hgb Hct MCV MCH MCHC RDW Plt Count Lymph % (Auto) [place] % (Auto) Lymph # (Auto) [place] # (Auto) Seg Neutrophils % Seg Neuts % (Manual) Lymphocytes % (Manual) Monocytes % (Manual) Nucleated RBC % Seg Neutrophils # Seg Neutrophils # Man Lymphocytes # (Manual) Monocytes # (Manual) PT INR D-Dimer ABG pH 7.342 L ABG pO2 96.0 H ABG HCO3 26.2 H ABG O2 Saturation ABG Base Excess ABG Hemoglobin 6.1 L Oxyhemoglobin 94.9 L Sodium Potassium Chloride Carbon Dioxide BUN Creatinine Glucose POC Glucose 155 H 137 H Lactic Acid Calcium Phosphorus Magnesium Ferritin AST ALT Lactate Dehydrogenase Total Creatine Kinase C-Reactive Protein Total Protein Albumin Triglycerides Urine Blood Urine WBC (Auto) U Epithel Cells (Auto) Crossmatch 10/14/21 10/14/21 10/14/21 15:40 21:21 23:46 WBC RBC Hgb Hct MCV MCH MCHC RDW Plt Count Lymph % (Auto) [place] % (Auto) Lymph # (Auto) [place] # (Auto) Seg Neutrophils % Seg Neuts % (Manual) Lymphocytes % (Manual) Monocytes % (Manual) Nucleated RBC % Seg Neutrophils # Seg Neutrophils # Man Lymphocytes # (Manual) Monocytes # (Manual) PT INR D-Dimer ABG pH ABG pO2 ABG HCO3 ABG O2 Saturation ABG Base Excess ABG Hemoglobin Oxyhemoglobin Sodium Potassium Chloride Carbon Dioxide BUN Creatinine Glucose POC Glucose 140 H 111 H 164 H Lactic Acid Calcium Phosphorus Magnesium Ferritin AST ALT Lactate Dehydrogenase Total Creatine Kinase C-Reactive Protein Total Protein Albumin Triglycerides Urine Blood Urine WBC (Auto) U Epithel Cells (Auto) Crossmatch 10/15/21 10/15/21 10/15/21 05:06 05:40 05:40 WBC 22.7 H RBC 2.94 L Hgb 8.7 L Hct 25.8 L MCV MCH MCHC RDW 17.2 H Plt Count 620 H Lymph % (Auto) [place] % (Auto) Lymph # (Auto) [place] # (Auto) Seg Neutrophils % Seg Neuts % (Manual) Lymphocytes % (Manual) Monocytes % (Manual) Nucleated RBC % Seg Neutrophils # Seg Neutrophils # Man Lymphocytes # (Manual) Monocytes # (Manual) PT INR D-Dimer ABG pH ABG pO2 ABG HCO3 ABG O2 Saturation ABG Base Excess ABG Hemoglobin Oxyhemoglobin Sodium Potassium Chloride Carbon Dioxide BUN 30 H Creatinine Glucose 175 H POC Glucose 155 H Lactic Acid Calcium 7.4 L Phosphorus Magnesium Ferritin AST ALT Lactate Dehydrogenase Total Creatine Kinase C-Reactive Protein Total Protein Albumin Triglycerides Urine Blood Urine WBC (Auto) U Epithel Cells (Auto) Crossmatch 10/15/21 10/15/21 10/15/21 11:32 17:23 23:35 WBC RBC Hgb Hct MCV MCH MCHC RDW Plt Count Lymph % (Auto) [place] % (Auto) Lymph # (Auto) [place] # (Auto) Seg Neutrophils % Seg Neuts % (Manual) Lymphocytes % (Manual) Monocytes % (Manual) Nucleated RBC % Seg Neutrophils # Seg Neutrophils # Man Lymphocytes # (Manual) Monocytes # (Manual) PT INR D-Dimer ABG pH ABG pO2 ABG HCO3 ABG O2 Saturation ABG Base Excess ABG Hemoglobin Oxyhemoglobin Sodium Potassium Chloride Carbon Dioxide BUN Creatinine Glucose POC Glucose 157 H 136 H 143 H Lactic Acid Calcium Phosphorus Magnesium Ferritin AST ALT Lactate Dehydrogenase Total Creatine Kinase C-Reactive Protein Total Protein Albumin Triglycerides Urine Blood Urine WBC (Auto) U Epithel Cells (Auto) Crossmatch 10/16/21 10/16/21 10/16/21 04:00 04:00 05:08 WBC 18.0 H RBC 2.80 L Hgb 8.0 L Hct 24.7 L MCV MCH MCHC RDW 17.4 H Plt Count 543 H Lymph % (Auto) [place] % (Auto) Lymph # (Auto) [place] # (Auto) Seg Neutrophils % Seg Neuts % (Manual) Lymphocytes % (Manual) Monocytes % (Manual) Nucleated RBC % Seg Neutrophils # Seg Neutrophils # Man Lymphocytes # (Manual) Monocytes # (Manual) PT INR D-Dimer ABG pH ABG pO2 ABG HCO3 ABG O2 Saturation ABG Base Excess ABG Hemoglobin Oxyhemoglobin Sodium Potassium Chloride Carbon Dioxide BUN 31 H Creatinine Glucose 153 H POC Glucose 149 H Lactic Acid Calcium 8.0 L Phosphorus Magnesium Ferritin AST ALT Lactate Dehydrogenase Total Creatine Kinase C-Reactive Protein Total Protein 5.5 L Albumin 1.9 L Triglycerides Urine Blood Urine WBC (Auto) U Epithel Cells (Auto) Crossmatch 10/16/21 10/16/21 10/16/21 11:45 17:37 23:48 WBC RBC Hgb Hct MCV MCH MCHC RDW Plt Count Lymph % (Auto) [place] % (Auto) Lymph # (Auto) [place] # (Auto) Seg Neutrophils % Seg Neuts % (Manual) Lymphocytes % (Manual) Monocytes % (Manual) Nucleated RBC % Seg Neutrophils # Seg Neutrophils # Man Lymphocytes # (Manual) Monocytes # (Manual) PT INR D-Dimer ABG pH ABG pO2 ABG HCO3 ABG O2 Saturation ABG Base Excess ABG Hemoglobin Oxyhemoglobin Sodium Potassium Chloride Carbon Dioxide BUN Creatinine Glucose POC Glucose 144 H 130 H 134 H Lactic Acid Calcium Phosphorus Magnesium Ferritin AST ALT Lactate Dehydrogenase Total Creatine Kinase C-Reactive Protein Total Protein Albumin Triglycerides Urine Blood Urine WBC (Auto) U Epithel Cells (Auto) Crossmatch 10/17/21 10/17/21 10/17/21 04:00 04:00 05:37 WBC 14.0 H RBC 2.46 L Hgb 7.2 L Hct 21.7 L MCV MCH MCHC RDW 17.4 H Plt Count 526 H Lymph % (Auto) [place] % (Auto) Lymph # (Auto) [place] # (Auto) Seg Neutrophils % Seg Neuts % (Manual) Lymphocytes % (Manual) Monocytes % (Manual) Nucleated RBC % Seg Neutrophils # Seg Neutrophils # Man Lymphocytes # (Manual) Monocytes # (Manual) PT INR D-Dimer ABG pH ABG pO2 ABG HCO3 ABG O2 Saturation ABG Base Excess ABG Hemoglobin Oxyhemoglobin Sodium Potassium Chloride Carbon Dioxide BUN 29 H Creatinine Glucose 138 H POC Glucose 137 H Lactic Acid Calcium 7.5 L Phosphorus Magnesium Ferritin AST ALT Lactate Dehydrogenase Total Creatine Kinase C-Reactive Protein Total Protein Albumin Triglycerides Urine Blood Urine WBC (Auto) U Epithel Cells (Auto) Crossmatch 10/17/21 10/17/21 10/17/21 11:45 12:50 16:13 WBC RBC Hgb Hct MCV MCH MCHC RDW Plt Count Lymph % (Auto) [place] % (Auto) Lymph # (Auto) [place] # (Auto) Seg Neutrophils % Seg Neuts % (Manual) Lymphocytes % (Manual) Monocytes % (Manual) Nucleated RBC % Seg Neutrophils # Seg Neutrophils # Man Lymphocytes # (Manual) Monocytes # (Manual) PT INR D-Dimer ABG pH ABG pO2 ABG HCO3 ABG O2 Saturation ABG Base Excess ABG Hemoglobin Oxyhemoglobin Sodium Potassium Chloride Carbon Dioxide BUN Creatinine Glucose POC Glucose 145 H 128 H Lactic Acid Calcium Phosphorus Magnesium Ferritin AST ALT Lactate Dehydrogenase Total Creatine Kinase C-Reactive Protein Total Protein Albumin Triglycerides Urine Blood Urine WBC (Auto) U Epithel Cells (Auto) Crossmatch See Detail 10/17/21 10/18/21 10/18/21 23:46 04:28 04:28 WBC 16.6 H RBC 2.81 L Hgb 8.4 L Hct 24.4 L MCV MCH MCHC RDW 16.8 H Plt Count 516 H Lymph % (Auto) [place] % (Auto) Lymph # (Auto) [place] # (Auto) Seg Neutrophils % Seg Neuts % (Manual) Lymphocytes % (Manual) Monocytes % (Manual) Nucleated RBC % Seg Neutrophils # Seg Neutrophils # Man Lymphocytes # (Manual) Monocytes # (Manual) PT INR D-Dimer ABG pH ABG pO2 ABG HCO3 ABG O2 Saturation ABG Base Excess ABG Hemoglobin Oxyhemoglobin Sodium Potassium Chloride Carbon Dioxide BUN 26 H Creatinine Glucose 144 H POC Glucose 124 H Lactic Acid Calcium 7.5 L Phosphorus Magnesium Ferritin AST ALT 6 L Lactate Dehydrogenase Total Creatine Kinase C-Reactive Protein Total Protein 6.1 L Albumin 2.0 L Triglycerides Urine Blood Urine WBC (Auto) U Epithel Cells (Auto) Crossmatch 10/18/21 10/18/21 10/18/21 05:19 11:34 11:40 WBC RBC Hgb Hct MCV MCH MCHC RDW Plt Count Lymph % (Auto) [place] % (Auto) Lymph # (Auto) [place] # (Auto) Seg Neutrophils % Seg Neuts % (Manual) Lymphocytes % (Manual) Monocytes % (Manual) Nucleated RBC % Seg Neutrophils # Seg Neutrophils # Man Lymphocytes # (Manual) Monocytes # (Manual) PT INR D-Dimer ABG pH 7.466 H ABG pO2 90.6 H ABG HCO3 29.0 H ABG O2 Saturation ABG Base Excess 4.9 H ABG Hemoglobin 8.6 L Oxyhemoglobin Sodium Potassium Chloride Carbon Dioxide BUN Creatinine Glucose POC Glucose 128 H Lactic Acid Calcium Phosphorus Magnesium Ferritin AST ALT Lactate Dehydrogenase Total Creatine Kinase C-Reactive Protein Total Protein Albumin Triglycerides Urine Blood Moderate A Urine WBC (Auto) 50.0 H U Epithel Cells (Auto) Crossmatch 10/18/21 10/18/21 10/19/21 12:20 16:18 01:28 WBC RBC Hgb Hct MCV MCH MCHC RDW Plt Count Lymph % (Auto) [place] % (Auto) Lymph # (Auto) [place] # (Auto) Seg Neutrophils % Seg Neuts % (Manual) Lymphocytes % (Manual) Monocytes % (Manual) Nucleated RBC % Seg Neutrophils # Seg Neutrophils # Man Lymphocytes # (Manual) Monocytes # (Manual) PT INR D-Dimer ABG pH ABG pO2 ABG HCO3 ABG O2 Saturation ABG Base Excess ABG Hemoglobin Oxyhemoglobin Sodium Potassium Chloride Carbon Dioxide BUN Creatinine Glucose POC Glucose 151 H 139 H 126 H Lactic Acid Calcium Phosphorus Magnesium Ferritin AST ALT Lactate Dehydrogenase Total Creatine Kinase C-Reactive Protein Total Protein Albumin Triglycerides Urine Blood Urine WBC (Auto) U Epithel Cells (Auto) Crossmatch 10/19/21 10/19/21 10/19/21 04:23 04:23 04:23 WBC 16.0 H RBC 3.04 L Hgb 8.7 L Hct 26.3 L MCV MCH MCHC RDW 16.9 H Plt Count 500 H Lymph % (Auto) [place] % (Auto) Lymph # (Auto) [place] # (Auto) Seg Neutrophils % Seg Neuts % (Manual) Lymphocytes % (Manual) Monocytes % (Manual) Nucleated RBC % Seg Neutrophils # Seg Neutrophils # Man Lymphocytes # (Manual) Monocytes # (Manual) PT INR D-Dimer ABG pH ABG pO2 ABG HCO3 ABG O2 Saturation ABG Base Excess ABG Hemoglobin Oxyhemoglobin Sodium Potassium Chloride Carbon Dioxide BUN 20 H Creatinine Glucose 138 H POC Glucose Lactic Acid Calcium 7.8 L Phosphorus 1.80 L D Magnesium 1.60 L Ferritin AST ALT Lactate Dehydrogenase Total Creatine Kinase C-Reactive Protein Total Protein Albumin Triglycerides Urine Blood Urine WBC (Auto) U Epithel Cells (Auto) Crossmatch 10/19/21 10/19/21 10/19/21 14:11 18:05 21:42 WBC RBC Hgb Hct MCV MCH MCHC RDW Plt Count Lymph % (Auto) [place] % (Auto) Lymph # (Auto) [place] # (Auto) Seg Neutrophils % Seg Neuts % (Manual) Lymphocytes % (Manual) Monocytes % (Manual) Nucleated RBC % Seg Neutrophils # Seg Neutrophils # Man Lymphocytes # (Manual) Monocytes # (Manual) PT INR D-Dimer ABG pH ABG pO2 ABG HCO3 ABG O2 Saturation ABG Base Excess ABG Hemoglobin Oxyhemoglobin Sodium Potassium Chloride Carbon Dioxide BUN Creatinine Glucose POC Glucose 161 H 162 H 112 H Lactic Acid Calcium Phosphorus Magnesium Ferritin AST ALT Lactate Dehydrogenase Total Creatine Kinase C-Reactive Protein Total Protein Albumin Triglycerides Urine Blood Urine WBC (Auto) U Epithel Cells (Auto) Crossmatch 10/20/21 10/20/21 10/20/21 00:01 05:39 11:41 WBC 20.2 H RBC 2.81 L Hgb 8.5 L Hct 24.3 L MCV MCH MCHC 35 H RDW 16.8 H Plt Count 481 H Lymph % (Auto) [place] % (Auto) Lymph # (Auto) [place] # (Auto) Seg Neutrophils % Seg Neuts % (Manual) Lymphocytes % (Manual) Monocytes % (Manual) Nucleated RBC % Seg Neutrophils # Seg Neutrophils # Man Lymphocytes # (Manual) Monocytes # (Manual) PT INR D-Dimer ABG pH ABG pO2 ABG HCO3 ABG O2 Saturation ABG Base Excess ABG Hemoglobin Oxyhemoglobin Sodium Potassium Chloride Carbon Dioxide BUN Creatinine Glucose POC Glucose 152 H 117 H Lactic Acid Calcium Phosphorus Magnesium Ferritin AST ALT Lactate Dehydrogenase Total Creatine Kinase C-Reactive Protein Total Protein Albumin Triglycerides Urine Blood Urine WBC (Auto) U Epithel Cells (Auto) Crossmatch 10/20/21 10/20/21 10/20/21 11:41 11:50 17:31 WBC RBC Hgb Hct MCV MCH MCHC RDW Plt Count Lymph % (Auto) [place] % (Auto) Lymph # (Auto) [place] # (Auto) Seg Neutrophils % Seg Neuts % (Manual) Lymphocytes % (Manual) Monocytes % (Manual) Nucleated RBC % Seg Neutrophils # Seg Neutrophils # Man Lymphocytes # (Manual) Monocytes # (Manual) PT INR D-Dimer ABG pH ABG pO2 ABG HCO3 ABG O2 Saturation ABG Base Excess ABG Hemoglobin Oxyhemoglobin Sodium Potassium Chloride Carbon Dioxide BUN 20 H Creatinine Glucose 123 H POC Glucose 120 H 125 H Lactic Acid Calcium 7.7 L Phosphorus 2.00 L Magnesium Ferritin AST ALT Lactate Dehydrogenase Total Creatine Kinase C-Reactive Protein Total Protein Albumin Triglycerides Urine Blood Urine WBC (Auto) U Epithel Cells (Auto) Crossmatch 10/20/21 10/21/21 10/21/21 23:25 04:30 04:30 WBC 23.2 H RBC 2.70 L Hgb 7.9 L Hct 23.2 L MCV MCH MCHC RDW 17.2 H Plt Count Lymph % (Auto) [place] % (Auto) Lymph # (Auto) [place] # (Auto) Seg Neutrophils % Seg Neuts % (Manual) Lymphocytes % (Manual) Monocytes % (Manual) Nucleated RBC % Seg Neutrophils # Seg Neutrophils # Man Lymphocytes # (Manual) Monocytes # (Manual) PT INR D-Dimer ABG pH ABG pO2 ABG HCO3 ABG O2 Saturation ABG Base Excess ABG Hemoglobin Oxyhemoglobin Sodium Potassium Chloride Carbon Dioxide BUN 22 H Creatinine Glucose 117 H POC Glucose 119 H Lactic Acid Calcium 7.7 L Phosphorus Magnesium Ferritin AST ALT Lactate Dehydrogenase Total Creatine Kinase C-Reactive Protein Total Protein Albumin Triglycerides Urine Blood Urine WBC (Auto) U Epithel Cells (Auto) Crossmatch 10/21/21 10/21/21 10/21/21 05:26 09:05 11:27 WBC RBC Hgb Hct MCV MCH MCHC RDW Plt Count Lymph % (Auto) [place] % (Auto) Lymph # (Auto) [place] # (Auto) Seg Neutrophils % Seg Neuts % (Manual) Lymphocytes % (Manual) Monocytes % (Manual) Nucleated RBC % Seg Neutrophils # Seg Neutrophils # Man Lymphocytes # (Manual) Monocytes # (Manual) PT INR D-Dimer ABG pH 7.509 H ABG pO2 60.3 L ABG HCO3 26.2 H ABG O2 Saturation ABG Base Excess ABG Hemoglobin 6.7 L Oxyhemoglobin Sodium Potassium Chloride Carbon Dioxide BUN Creatinine Glucose POC Glucose 111 H 114 H Lactic Acid Calcium Phosphorus Magnesium Ferritin AST ALT Lactate Dehydrogenase Total Creatine Kinase C-Reactive Protein Total Protein Albumin Triglycerides Urine Blood Urine WBC (Auto) U Epithel Cells (Auto) Crossmatch 10/21/21 10/21/21 10/22/21 16:45 23:13 05:25 WBC 21.7 H RBC 2.55 L Hgb 7.5 L Hct 22.3 L MCV MCH MCHC RDW 16.8 H Plt Count Lymph % (Auto) [place] % (Auto) Lymph # (Auto) [place] # (Auto) Seg Neutrophils % Seg Neuts % (Manual) 86.0 H Lymphocytes % (Manual) 7.0 L Monocytes % (Manual) Nucleated RBC % Seg Neutrophils # Seg Neutrophils # Man 18.7 H Lymphocytes # (Manual) Monocytes # (Manual) 1.5 H PT INR D-Dimer ABG pH ABG pO2 ABG HCO3 ABG O2 Saturation ABG Base Excess ABG Hemoglobin Oxyhemoglobin Sodium Potassium Chloride Carbon Dioxide BUN Creatinine Glucose POC Glucose 117 H 125 H Lactic Acid Calcium Phosphorus Magnesium Ferritin AST ALT Lactate Dehydrogenase Total Creatine Kinase C-Reactive Protein Total Protein Albumin Triglycerides Urine Blood Urine WBC (Auto) U Epithel Cells (Auto) Crossmatch 10/22/21 10/22/21 10/22/21 09:02 09:02 11:07 WBC 17.2 H RBC 2.51 L Hgb 7.1 L Hct 21.9 L MCV MCH MCHC RDW 17.2 H Plt Count Lymph % (Auto) 4.7 L [place] % (Auto) 10.2 H Lymph # (Auto) 0.8 L [place] # (Auto) 1.8 H Seg Neutrophils % 84.5 H Seg Neuts % (Manual) Lymphocytes % (Manual) Monocytes % (Manual) Nucleated RBC % Seg Neutrophils # 14.5 H Seg Neutrophils # Man Lymphocytes # (Manual) Monocytes # (Manual) PT INR D-Dimer ABG pH ABG pO2 ABG HCO3 ABG O2 Saturation ABG Base Excess ABG Hemoglobin Oxyhemoglobin Sodium 134 L Potassium Chloride Carbon Dioxide BUN 23 H Creatinine Glucose 117 H POC Glucose 115 H Lactic Acid Calcium 8.1 L Phosphorus Magnesium Ferritin AST ALT Lactate Dehydrogenase Total Creatine Kinase C-Reactive Protein Total Protein Albumin Triglycerides Urine Blood Urine WBC (Auto) U Epithel Cells (Auto) Crossmatch 10/22/21 10/22/21 10/22/21 16:05 23:15 Unknown WBC RBC Hgb Hct MCV MCH MCHC RDW Plt Count Lymph % (Auto) [place] % (Auto) Lymph # (Auto) [place] # (Auto) Seg Neutrophils % Seg Neuts % (Manual) Lymphocytes % (Manual) Monocytes % (Manual) Nucleated RBC % Seg Neutrophils # Seg Neutrophils # Man Lymphocytes # (Manual) Monocytes # (Manual) PT INR D-Dimer ABG pH ABG pO2 ABG HCO3 ABG O2 Saturation ABG Base Excess ABG Hemoglobin Oxyhemoglobin Sodium 135 L Potassium Chloride Carbon Dioxide BUN 23 H Creatinine Glucose 112 H POC Glucose 123 H 114 H Lactic Acid Calcium 8.2 L Phosphorus Magnesium Ferritin AST ALT Lactate Dehydrogenase Total Creatine Kinase C-Reactive Protein Total Protein Albumin Triglycerides Urine Blood Urine WBC (Auto) U Epithel Cells (Auto) Crossmatch 10/23/21 10/23/21 10/23/21 04:56 04:56 05:28 WBC 16.5 H RBC 2.46 L Hgb 7.1 L Hct 21.4 L MCV MCH MCHC RDW 16.9 H Plt Count Lymph % (Auto) [place] % (Auto) Lymph # (Auto) [place] # (Auto) Seg Neutrophils % Seg Neuts % (Manual) Lymphocytes % (Manual) Monocytes % (Manual) Nucleated RBC % Seg Neutrophils # Seg Neutrophils # Man Lymphocytes # (Manual) Monocytes # (Manual) PT INR D-Dimer ABG pH ABG pO2 ABG HCO3 ABG O2 Saturation ABG Base Excess ABG Hemoglobin Oxyhemoglobin Sodium Potassium Chloride Carbon Dioxide 21 L BUN 25 H Creatinine Glucose 123 H POC Glucose 130 H Lactic Acid Calcium 8.3 L Phosphorus Magnesium Ferritin AST ALT Lactate Dehydrogenase Total Creatine Kinase C-Reactive Protein Total Protein Albumin Triglycerides Urine Blood Urine WBC (Auto) U Epithel Cells (Auto) Crossmatch 10/23/21 10/23/21 10/24/21 11:24 17:52 00:11 WBC RBC Hgb Hct MCV MCH MCHC RDW Plt Count Lymph % (Auto) [place] % (Auto) Lymph # (Auto) [place] # (Auto) Seg Neutrophils % Seg Neuts % (Manual) Lymphocytes % (Manual) Monocytes % (Manual) Nucleated RBC % Seg Neutrophils # Seg Neutrophils # Man Lymphocytes # (Manual) Monocytes # (Manual) PT INR D-Dimer ABG pH ABG pO2 ABG HCO3 ABG O2 Saturation ABG Base Excess ABG Hemoglobin Oxyhemoglobin Sodium Potassium Chloride Carbon Dioxide BUN Creatinine Glucose POC Glucose 123 H 121 H 139 H Lactic Acid Calcium Phosphorus Magnesium Ferritin AST ALT Lactate Dehydrogenase Total Creatine Kinase C-Reactive Protein Total Protein Albumin Triglycerides Urine Blood Urine WBC (Auto) U Epithel Cells (Auto) Crossmatch 10/24/21 10/24/21 10/24/21 04:00 04:00 05:15 WBC 14.2 H RBC 2.55 L Hgb 7.4 L Hct 22.2 L MCV MCH MCHC RDW 17.0 H Plt Count 470 H Lymph % (Auto) [place] % (Auto) Lymph # (Auto) [place] # (Auto) Seg Neutrophils % Seg Neuts % (Manual) Lymphocytes % (Manual) Monocytes % (Manual) Nucleated RBC % Seg Neutrophils # Seg Neutrophils # Man Lymphocytes # (Manual) Monocytes # (Manual) PT INR D-Dimer ABG pH ABG pO2 ABG HCO3 ABG O2 Saturation ABG Base Excess ABG Hemoglobin Oxyhemoglobin Sodium 135 L Potassium Chloride Carbon Dioxide 21 L BUN 26 H Creatinine Glucose 122 H POC Glucose 133 H Lactic Acid Calcium 8.2 L Phosphorus Magnesium Ferritin AST ALT Lactate Dehydrogenase Total Creatine Kinase C-Reactive Protein Total Protein Albumin Triglycerides Urine Blood Urine WBC (Auto) U Epithel Cells (Auto) Crossmatch 10/24/21 10/25/21 10/25/21 16:53 05:03 05:03 WBC 12.2 H RBC 2.72 L Hgb 7.9 L Hct 23.7 L MCV MCH MCHC RDW 17.3 H Plt Count 486 H Lymph % (Auto) [place] % (Auto) Lymph # (Auto) [place] # (Auto) Seg Neutrophils % Seg Neuts % (Manual) Lymphocytes % (Manual) Monocytes % (Manual) Nucleated RBC % Seg Neutrophils # Seg Neutrophils # Man Lymphocytes # (Manual) Monocytes # (Manual) PT INR D-Dimer ABG pH ABG pO2 ABG HCO3 ABG O2 Saturation ABG Base Excess ABG Hemoglobin Oxyhemoglobin Sodium 134 L Potassium Chloride Carbon Dioxide 19 L BUN 26 H Creatinine Glucose 107 H POC Glucose 129 H Lactic Acid Calcium 8.2 L Phosphorus Magnesium Ferritin AST ALT Lactate Dehydrogenase Total Creatine Kinase C-Reactive Protein Total Protein Albumin Triglycerides Urine Blood Urine WBC (Auto) U Epithel Cells (Auto) Crossmatch 10/25/21 10/25/21 10/25/21 05:44 11:29 17:10 WBC RBC Hgb Hct MCV MCH MCHC RDW Plt Count Lymph % (Auto) [place] % (Auto) Lymph # (Auto) [place] # (Auto) Seg Neutrophils % Seg Neuts % (Manual) Lymphocytes % (Manual) Monocytes % (Manual) Nucleated RBC % Seg Neutrophils # Seg Neutrophils # Man Lymphocytes # (Manual) Monocytes # (Manual) PT INR D-Dimer ABG pH ABG pO2 ABG HCO3 ABG O2 Saturation ABG Base Excess ABG Hemoglobin Oxyhemoglobin Sodium Potassium Chloride Carbon Dioxide BUN Creatinine Glucose POC Glucose 113 H 120 H 121 H Lactic Acid Calcium Phosphorus Magnesium Ferritin AST ALT Lactate Dehydrogenase Total Creatine Kinase C-Reactive Protein Total Protein Albumin Triglycerides Urine Blood Urine WBC (Auto) U Epithel Cells (Auto) Crossmatch 10/26/21 10/26/21 10/27/21 04:18 04:18 04:00 WBC 14.5 H RBC 2.50 L Hgb 7.4 L Hct 21.8 L MCV MCH MCHC RDW 17.0 H Plt Count 495 H Lymph % (Auto) [place] % (Auto) Lymph # (Auto) [place] # (Auto) Seg Neutrophils % Seg Neuts % (Manual) Lymphocytes % (Manual) Monocytes % (Manual) Nucleated RBC % Seg Neutrophils # Seg Neutrophils # Man Lymphocytes # (Manual) Monocytes # (Manual) PT INR D-Dimer ABG pH ABG pO2 ABG HCO3 ABG O2 Saturation ABG Base Excess ABG Hemoglobin Oxyhemoglobin Sodium 135 L 135 L Potassium Chloride Carbon Dioxide 20 L BUN 26 H 21 H Creatinine Glucose 101 H 116 H POC Glucose Lactic Acid Calcium 8.2 L 8.2 L Phosphorus Magnesium Ferritin AST 71 H ALT 91 H Lactate Dehydrogenase Total Creatine Kinase C-Reactive Protein Total Protein Albumin 2.3 L Triglycerides 196 H Urine Blood Urine WBC (Auto) U Epithel Cells (Auto) Crossmatch 10/27/21 10/27/21 10/27/21 05:17 10:14 11:26 WBC 11.9 H RBC 2.56 L Hgb 7.3 L Hct 22.6 L MCV MCH MCHC RDW 17.1 H Plt Count 515 H Lymph % (Auto) [place] % (Auto) Lymph # (Auto) [place] # (Auto) Seg Neutrophils % Seg Neuts % (Manual) Lymphocytes % (Manual) Monocytes % (Manual) Nucleated RBC % Seg Neutrophils # Seg Neutrophils # Man Lymphocytes # (Manual) Monocytes # (Manual) PT INR D-Dimer ABG pH ABG pO2 ABG HCO3 ABG O2 Saturation ABG Base Excess ABG Hemoglobin Oxyhemoglobin Sodium Potassium Chloride Carbon Dioxide BUN Creatinine Glucose POC Glucose 117 H 125 H Lactic Acid Calcium Phosphorus Magnesium Ferritin AST ALT Lactate Dehydrogenase Total Creatine Kinase C-Reactive Protein Total Protein Albumin Triglycerides Urine Blood Urine WBC (Auto) U Epithel Cells (Auto) Crossmatch 10/27/21 10/27/21 10/28/21 22:34 23:36 05:10 WBC RBC Hgb Hct MCV MCH MCHC RDW Plt Count Lymph % (Auto) [place] % (Auto) Lymph # (Auto) [place] # (Auto) Seg Neutrophils % Seg Neuts % (Manual) Lymphocytes % (Manual) Monocytes % (Manual) Nucleated RBC % Seg Neutrophils # Seg Neutrophils # Man Lymphocytes # (Manual) Monocytes # (Manual) PT INR D-Dimer ABG pH ABG pO2 ABG HCO3 ABG O2 Saturation ABG Base Excess ABG Hemoglobin Oxyhemoglobin Sodium Potassium Chloride Carbon Dioxide BUN Creatinine Glucose POC Glucose 112 H 121 H 130 H Lactic Acid Calcium Phosphorus Magnesium Ferritin AST ALT Lactate Dehydrogenase Total Creatine Kinase C-Reactive Protein Total Protein Albumin Triglycerides Urine Blood Urine WBC (Auto) U Epithel Cells (Auto) Crossmatch 10/28/21 10/28/21 10/28/21 06:15 06:15 07:15 WBC 12.1 H RBC 2.42 L Hgb 7.0 L Hct 24.1 L MCV 99 H MCH MCHC 29 L RDW 19.2 H Plt Count 484 H Lymph % (Auto) [place] % (Auto) Lymph # (Auto) [place] # (Auto) Seg Neutrophils % Seg Neuts % (Manual) Lymphocytes % (Manual) Monocytes % (Manual) Nucleated RBC % Seg Neutrophils # Seg Neutrophils # Man Lymphocytes # (Manual) Monocytes # (Manual) PT INR D-Dimer ABG pH ABG pO2 ABG HCO3 ABG O2 Saturation ABG Base Excess ABG Hemoglobin Oxyhemoglobin Sodium 126 L D 134 L D Potassium 6.6 H* D Chloride 86.6 L 97.6 L Carbon Dioxide 17 L BUN 19 H 19 H Creatinine Glucose 137 H POC Glucose Lactic Acid Calcium 7.8 L Phosphorus 11.90 H D Magnesium 2.40 H Ferritin AST ALT Lactate Dehydrogenase Total Creatine Kinase C-Reactive Protein Total Protein Albumin Triglycerides Urine Blood Urine WBC (Auto) U Epithel Cells (Auto) Crossmatch 10/28/21 12:20 WBC RBC Hgb Hct MCV MCH MCHC RDW Plt Count Lymph % (Auto) [place] % (Auto) Lymph # (Auto) [place] # (Auto) Seg Neutrophils % Seg Neuts % (Manual) Lymphocytes % (Manual) Monocytes % (Manual) Nucleated RBC % Seg Neutrophils # Seg Neutrophils # Man Lymphocytes # (Manual) Monocytes # (Manual) PT INR D-Dimer ABG pH ABG pO2 ABG HCO3 ABG O2 Saturation ABG Base Excess ABG Hemoglobin Oxyhemoglobin Sodium Potassium Chloride Carbon Dioxide BUN Creatinine Glucose POC Glucose Lactic Acid Calcium Phosphorus Magnesium Ferritin AST ALT Lactate Dehydrogenase Total Creatine Kinase C-Reactive Protein Total Protein Albumin Triglycerides Urine Blood Urine WBC (Auto) U Epithel Cells (Auto) Crossmatch See Detail Allied health notes reviewed: nursing
[2021-10-28] MEDS ORDERED: METOPROLOL TARTRATE 5 MG/5 ML INJ IV PRN (14:31)
[2021-10-28] MEDS ORDERED: ALUM-MAG HYDROXIDE-SIMETHICONE 200-200-20MG/5ML ORAL LIQD 30 ML PO STA (14:35)
[2021-10-28] MEDS ORDERED: SODIUM CHLORIDE 0.45% 1000 ML 1,000 ML IV SCH (15:00)
--- NOTE | 2021-10-28 16:10 | Progress Note ---
Assessment and Plan Patient is 32-year-old female with a past medical history of hypertension, kidney stones, obesity, who was admitted to [facility] on 09/24/2021 for pericolonic abscess secondary to perforated diverticulitis, peritonitis which was further complicated by acute blood loss anemia BRYANNA and acute hypoxic respiratory failure. Perforated diverticulitis Pericolonic abscess Sepsis Anemia BRYANNA Sinus tach Febrile Echo 10/09/2021-EF 55 to 60%. Normal left ventricular systolic function. Right ventricular systolic function is normal. Left and right atrium are normal in size. Plan: EKG shows sinus tach with a regular rate. Nonspecific intraventricular conduction delay. Nonspecific T abnormalities. No acute ischemic change troponins negativex1 Telemetry reviewed patient is sinus tach rate can be as high into 130s on monitor. No signs of acute ischemic changes Patient reports anxiety, frustration and stress associated with the current conditions. CT chest from 10/22 showed no PE Suspect tachycardia likely a result of multiple recent GI surgeries, sepsis, and anemia Due to hypertension will increase to metoprolol 12.5 mg p.o. 4 times daily. Metoprolol may assist sinus tach while Will continue to closely monitor While prior CT on 10/22 showed no PE due to persistent tachycardia may wish to consider PE rule out. Discussed with hospitalist Patient seen in conjunction with Dr. Kidd who agrees with this plan of care 30 minutes of critical care time spent in care and coordination of patient - Patient Problems (1) Diverticulitis Current Visit: Yes Status: Acute (2) Colonic diverticular abscess Current Visit: Yes Status: Acute (3) Sepsis Current Visit: Yes Status: Acute (4) Obesity hypoventilation syndrome Current Visit: Yes Status: Acute (5) Appendicitis with perforation Current Visit: Yes Status: Acute (6) Anemia Current Visit: Yes Status: Acute (7) Acute respiratory failure with hypoxia Current Visit: Yes Status: Acute Subjective Date of service: 10/28/21 Principal diagnosis: Septic shock; AHRF; PNA; BRYANNA; s/p appendectomy; VRE infection; Peritonitis Interval history: Patient in bed in no acute distress Patient remains sinus tach rate 130s Objective Vital Signs Temp Pulse Pulse Resp BP Pulse Ox 10/28/21 16:01 121 H 25 H 146/110 100 10/28/21 15:31 123 H 50 H 146/108 98 10/28/21 15:15 123 H 23 139/109 100 10/28/21 15:00 120 H 44 H 139/109 98 10/28/21 14:45 118 H 25 H 137/98 94 10/28/21 14:41 132 H 142/102 10/28/21 14:31 133 H 29 H 138/93 96 10/28/21 14:30 98.2 F 132 H 27 H 142/102 99 10/28/21 14:15 98.9 F 134 H 33 H 149/99 97 10/28/21 14:01 137 H 43 H 141/111 96 10/28/21 13:45 144 H 29 H 141/111 99 10/28/21 13:31 146 H 45 H 141/111 100 10/28/21 13:15 141 H 24 147/107 100 10/28/21 13:01 147/107 97 10/28/21 12:45 143 H 38 H 146/108 95 10/28/21 12:30 140 H 31 H 146/108 97 10/28/21 12:15 136 H 37 H 144/104 98 10/28/21 12:00 99.0 F 136 H 138 H 40 H 144/104 99 10/28/21 11:45 138 H 40 H 144/105 85 10/28/21 11:37 137 H 144/105 10/28/21 11:31 136 H 39 H 145/118 82 L 10/28/21 11:15 136 H 43 H 145/118 100 10/28/21 11:00 135 H 40 H 145/118 98 10/28/21 10:45 133 H 29 H 138/96 100 10/28/21 10:31 132 H 36 H 138/96 100 10/28/21 10:15 133 H 30 H 138/96 100 10/28/21 10:00 134 H 40 H 138/96 100 10/28/21 09:45 125 H 39 H 172/127 100 10/28/21 09:30 125 H 41 H 172/127 98 10/28/21 09:10 144 H 208/117 10/28/21 09:01 148 H 41 H 163/123 10/28/21 08:31 142 H 34 H 163/123 63 L 10/28/21 08:00 98.2 F 145 H 145 H 42 H 163/123 99 10/28/21 07:31 142 H 25 H 167/92 100 10/28/21 07:01 138 H 28 H 146/89 10/28/21 06:31 120 H 18 166/92 10/28/21 06:01 16 162/110 10/28/21 05:31 134 H 44 H 162/110 10/28/21 05:01 131 H 27 H 134/95 100 10/28/21 04:31 136 H 38 H 134/95 10/28/21 04:01 145 H 39 H 134/95 10/28/21 04:00 98.2 F 125 H 99 10/28/21 03:31 132 H 29 H 134/95 10/28/21 03:01 112 H 27 H 134/95 97 10/28/21 02:31 109 H 28 H 134/95 95 10/28/21 02:00 112 H 28 H 134/95 97 10/28/21 01:31 120 H 30 H 145/107 10/28/21 01:01 116 H 21 145/107 10/28/21 00:31 101 H 25 H 145/107 10/28/21 00:01 119 H 24 145/107 10/28/21 00:00 98.6 F 106 H 99 10/27/21 23:57 110 H 17 145/107 10/27/21 23:31 97 H 27 H 145/107 10/27/21 23:01 109 H 30 H 133/89 10/27/21 22:30 128 H 35 H 171/102 10/27/21 22:05 99 10/27/21 22:00 126 H 22 180/113 10/27/21 21:50 123 H 177/111 10/27/21 21:31 116 H 30 H 153/99 10/27/21 21:01 112 H 32 H 153/99 53 L 10/27/21 20:31 114 H 17 153/99 10/27/21 20:01 123 H 35 H 153/99 10/27/21 20:00 98.4 F 116 H 99 10/27/21 19:31 120 H 34 H 153/99 10/27/21 19:01 148/105 99 10/27/21 18:31 119 H 28 H 148/105 10/27/21 18:00 112 H 29 H 148/105 96 10/27/21 17:31 114 H 32 H 142/103 10/27/21 17:25 99.5 F 10/27/21 17:00 109 H 26 H 142/103 96 10/27/21 16:31 118 H 22 153/94 98 - Physical Examination HEENT: Positive: PERRL Neck: Positive: trachea midline Cardiac: Positive: Regular Rhythm, Tachycardia Lungs: Positive: Normal Breath Sounds Neuro: Positive: Grossly Intact Abdomen: Positive: Soft, Tender Skin: Negative: Rash, Suspicious Lesions Extremities: Present: upper extr. pulses. Absent: edema - Labs and Meds CBC 10/28/21 Range/Units 06:15 WBC 12.1 H (4.5-11.0) K/mm3 RBC 2.42 L (3.65-5.03) M/mm3 Hgb 7.0 L (10.1-14.3) gm/dl Hct 24.1 L (30.3-42.9) % Plt Count 484 H (140-440) K/mm3 Comprehensive Metabolic Panel 10/28/21 10/28/21 10/28/21 Range/Units 06:15 07:15 Unknown Sodium 126 L D 134 L D (137-145) mmol/L Potassium 6.6 H* D 4.3 D (3.6-5.0) mmol/L Chloride 86.6 L 97.6 L (98-107) mmol/L Carbon Dioxide 17 L 24 D (22-30) mmol/L BUN 19 H 19 H (7-17) mg/dL Creatinine 0.7 0.7 0.7 (0.6-1.2) mg/dL Glucose TNR 137 H Calcium 7.8 L 8.4 (8.4-10.2) mg/dL - Imaging and Cardiology Echo: report reviewed - Allied health notes Allied health notes reviewed: nursing
--- NOTE | 2021-10-28 17:40 | Cat Scan Report ---
CTA CHEST WITH CONTRAST INDICATION / CLINICAL INFORMATION: chest pain and tachycardia. TECHNIQUE: Axial CT images were obtained through the chest after injection of IV contrast. 3 plane SD P and/or 3D reconstructions were produced. All CT scans at this location are performed using CT dose reduction for ALARA by means of automated exposure control. COMPARISON: CT 6 days prior FINDINGS: PULMONARY EMBOLUS: None. THORACIC AORTA: No significant abnormality. HEART: Previously seen pericardial effusion has significantly increased in size in the six-day interv al and is now large. CORONARY ARTERY CALCIFICATION: Absent -- None. MEDIASTINUM / VY: No significant abnormality. PLEURA: Previously seen very small right pleural effusion has resolved. Left pleural effusion has dec reased in size but persists, this is very small. No pneumothorax. LUNGS: Given the pericardial effusion and small left effusion, consolidative change in the left lower lobe is likely due to near-complete left lower lobe compressive atelectasis. There is mild atelectas is in the right lower lobe. Lungs are otherwise clear. ADDITIONAL FINDINGS: None. UPPER ABDOMEN: There are postsurgical changes at the umbilicus incompletely included on this exam. He patomegaly is again noted. Right adrenal lesion is unchanged. Anasarca has improved. SKELETAL STRUCTURES: No significant osseous abnormality. IMPRESSION: 1. No CT evidence for pulmonary embolism. 2. Large pericardial effusion increased since the exam from just 6 days ago 3. Trace left pleural effusion. There is near complete compressive atelectasis in the left lower lobe . Signer Name: Sher Bernal MD Signed: 10/28/2021 5:36 PM Workstation Name: [id number]
--- NOTE | 2021-10-28 18:13 | Progress Note ---
Assessment and Plan Assessment and plan: This is a 31-year-old female with obesity and nephrolithiasis admitted with pericolonic abscess secondary to contained perforated diverticulitis, peritonitis complicated by acute blood loss anemia, acute kidney injury and acute hypoxic respiratory failure. Neuro: Anxiety -s/p precedex gtt -prn haldol and ativan -Scheduled Ativan and BuSpar -Avoid delirium -Reorientation as needed -Maintain sleep-wake cycle -Psych/mental health consulted, appreciate recommendations -continue ativan prn and signed off 10/27 Cardiac: ST -Cardiology consulted, patient recommendation -Blood pressure monitoring per protocol -s/p vasopressor support with Levophed and vasopressin -Echocardiogram shows normal right ventricular function, LVEF 55 to 60% -Patient complaining of midsternal chest pressure with radiation to right arm, tachycardic to 130s/140s -Troponin negative -ECG shows no acute findings -Increasing beta-hosea per cardiology -10/28 CTA chest shows no evidence of pulmonary embolism, large pericardial effusion increased since exam to 6 days ago, trace left pleural effusion, complete compressive atelectasis of left lower lobe. -Dr. Flores an dPAtel aware -Stat 2d echo ordered -Cardiology aware of findings -Per Dr. 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, diverticulitis with abscess, moderate protein calorie malnutrition, h/o obesity -Surgery consulted, appreciate recommendations -s/p ex lap with washout of pericolonic abscess and drain placement on 09/26/2021 -s/p open left hemicolectomy, appendectomy and partial omentectomy on 10/01 -s/p colostomy creation with closure of abdomen on 10/14/2021 -10/09 CT abdomen/pelvis showed a new collection of air within the left midabdomen -CT guided drain placement with IR -24 hours: -1250 mL -medial abd 950 mL -Right lower abdomen 550 mL -PPI -TPN -PICC line placed 10/27 -CLD : Acute kidney injury secondary to vasomotor nephropathy versus contrast induced (resolved) -Nephrology and urology consulted, appreciate recommendations -Strict intake and output -Renally dose medications -Avoid nephrotoxic medications -Daily weights -s/p IV Lasix nephrology -Trend BMP -S/p bilateral ureteral stents -10/12 Intra-Op cystoscopy completed and bilateral ureteral stents placed (removed 10/13) -Repeat renal US noted -Half-normal saline x1 L for renal protection strategies post CTA chest with contrast ID: Acute sepsis secondary to pericolonic abscess with appendiceal rupture fistulization, peritonitis, VRE and jean marie albicans in wound culture -Infectious disease consulted, appreciate recommendations -COVID 19 PCR negative -S/p drain placement and diagnostic laparotomy on 09/26 -Antibiotic therapy per ID -completed course -f/u blood culture -Monitor WBC and temperature curve Endo: NAD -Avoid hypoglycemia -SSI -Accu-Cheks q6 -Long-acting insulin, titrate as needed Heme: Acute blood loss anemia, elevated D-dimer, hematuria, leukocytosis, thrombocytosis -Patient had hematuria after ureteral injury sustained from surgical procedures -Urology consulted, appreciate recommendation -10/09 CTA chest with no evidence of PE. Findings suggesting multifocal pneumonia vs pulmonary edema -10/28 CTA chest with no evidence of PE, pericardial effusion, near complete compressive atelectasis of left lower lobe -Bilateral lower extremity Doppler ultrasound shows no sonographic evidence of DVT however shows subcutaneous edema in lower extremities -Trend CBC -Transfuse hemoglobin less than 7 -S/p 7 units PRBC -Monitor for signs of bleeding -SCDs to BLE while in bed -Heparin subq The high probability of a clinically significant, sudden or life threatening deterioration of the [multi] system(s) required my full and direct attention, intervention and personal management. The aggregate critical care time was [90] minutes. This time is in addition to time spent performing reported procedures but includes the following: [x] Data Review and interpretation [x] Patient assessment and monitoring of vital signs [x] Documentation [x] Medication orders and management Disposition Plan: icu Total Time Spent with Patient (Minutes): 90 History Interval history: This is a 31-year-old female with obesity and nephrolithiasis admitted with complaints of abdominal pain, lower back pain, nausea no with episodes of vomiting over the past dayon 09/24. Patient underwent a CT scan of the abdomen and pelvis and was found to have acute diverticulitis complicated by sepsis and was admitted to the medical floor initiated sepsis protocol. Surgery team was consulted in the emergency department. ICU Course to Date: 10/09: Intubated and sedated, RASS -1 to -2. Recent CXR noted with worsen bilateral opacities with persistent leukocytosis, elevated lactic, and now on 2 pressors. Patient remains afebrile, and already on IV Abx per ID. Will swab patient for COVID. Given recent surgery orders placed for CTA chest, CT A bd/plevis. And also BLE dopplers due to elevated D-Dimer. Renal function is improving, additional IVF to flush out kidney post contrast, Nephrology is also following. Continue TPN and NGT to LIS. 10/10: COVID PCR negative. CTA chest and Abd/plevis noted. No evidence of PE. Patient received X1 dose of 20mg IV lasix per Nephro for pulmonary edema, this am CXR with some improvement, renal function is also improving. Wean vent setting as tolerated per CCM. Plan for possible CT guided drainage placement in IR tomorrow. Continue TPN and NGT to LIS. 10/11: Patient with anemia, 1 unit PRBC, scheduled for CT-guided drain image of air pocket. Will place on CPAP on return. Slightly worsening renal function but nephrology is on the case. 10/12: Taken to OR today for diverting ileostomy, given 3 units PRBC yesterday and appropriate response. Surgical culture grew yeast and ID added added fluconazole. 10/13: Hypomagnesemia repleted, renal function improving. Patient remains sedated with fentanyl and propofol. Updated sister and father at bedside. Ureteral stents removed at bedside. Plan to to take patient to the OR tomorrow for second look, abdominal washout, colostomy creation on hold for abdominal closure by surgery. We will hold p.m. dose of heparin. 10/14: Plan to take patient back to OR today, prophylactic anticougulation on hold. 2 units prbc on hold for surgery. Plan to close abd and colostomy creation. Vent weaning on hold till abd closure 10/15: Renal function remains stable, leukocytosis increased, remains sedated on propofol and fentanyl and on mechanical ventilation. Plan is to hold SBT until the weekend. Repeat renal ultrasound pending per urology. 10/16: no acute events overnight. remains on fent and propofol. plan to sbt on monday. 10/17: noted drop in hgb from 8 to 7.2 and will given one unit prbc. remains on fent/propofol. CARMEN overnight. Will retract OETT per rad reading. 10/18: Febrile this am with worsen leukocytosis. Continue IV Abx per ID, orders placed for cultures. Patient tolerating PST, d/w [facility] plan for possible extubation today. Abdominal insicion and colostomy noted, no signs of any complications noted. Continue TPN and NGT to LIS per General surgery. 10/19: S/p extubation, now stable on 2L NC. Fevers improved, cultures pending continue IV Abx per ID. Patient is still with absent bowel sounds, continue TPN and NGT to LIS per General surg. Okay to remove brantley per Urology. Electrolytes repleted, repeat labs in the am. Patient is stable for transfer to [facility]. 10/20: Continue current management. Patient remained stable on 2 L of oxygen but appears anxious with increased tachypnea. We will add incentive spirometer. Will check and monitor intermittent x-rays. Continue antibiotics per infectious disease. Renal function has normalized. We will good urine output. We will check blood work in a.m. Awaiting return of bowel function 10/21: Patient on BiPAP this am, xray from yesterday concerning for Aspiration pneumonia vs atalalectsis, patient still with increased WOB although improved compared to yesterday. Leukocytosis a bit worse, will continue to monitor and discuss with ID if more broad spectrum therapy should be considered. She is currently on Bactrim for positive tracheal aspirate with Stenotrophomonas. Continue aspiration precautions. may need repeat xray but will discuss with pulmonary. Continue Strict NPO and Aspiration precautions. Continues on TPN. Prognosis guarded. ?Third spacing 10/22: Back in the ICU due to hypoxia, increased WOB, and tachycardia requiring continuous Bipap. Patient is now on precedex gtt for increased anxiety. Repeat BLE doppler with no evidence of DVT . D/W [facility] paln for CTA chest and CT abd/Pelvis today. Mild improvement in leukocytosis today, patient is afebrile, continue IV Abx per ID. Remains on TPN and NGT to LIS. 10/23: CTA chest and CT Abd/Pelvis noted- no evidence of PE, multiloculated collection along the left mid abdomen have all decreased in size, with persistent anasarca. Will started IV Lasix [id number]. Plan to wean to NC today, continue Bipap Qhs or as needed. Close monitoring of renal function and electrolytes, replete as needed. Plan to Clamp NGT today per General Surgery. Continue TPN. 10/24: Patient tolerated IV lasix, stable on 3L NC this am, no respiratory distress noted. Continue gentle diurese, IV Lasix X3 doses. Remains on NGT clamped per Gen Surgery. Patient is tolerating ice chips. Patient is okayed for sips of water per General Surgery. Continue TPN and wound care management per General Surgery. 10/25: We will discontinue Precedex, start as needed Haldol and order PICC line. Magnesium repleted. Continues on TPN. 10/26: Patient is tachycardic and has a slight increase in leukocytosis. She continues to have intermittent low-grade fevers. Remains off antibiotics per ID. Continue n.p.o. and resume NG tube to low normal suction. Patient will be transferred to [facility]. Might warrant further testing if leukocytosis and fevers continue. Long discussion at bedside with Dr. Huddleston and Dr. Vega. 10/27: Due to persistent tachycardia surgery would like cardiology consulted. Patient was started on a beta-hosea. Psych has signed off on the patient. Leukocytosis improving. Afebrile for 24 hours. Given mag citrate by surgery 10/28: Patient is complaining of chest pain which feels like pressure mid chest with radiation to right arm, CTA chest ordered. Cardio increased BB. Added scheduled buspar/ativan. CTA chest shows large pericardial effusion. Dr. Ruvalcaba and Gary aware. Ordered stat 2 d echo. Stanford Miranda NP aware of findings who relayed read to Dr. Kidd. Per Dr. Kidd CT tends to overread by cardiac fusion and as long as patient is hemodynamically stable (clarification: In the sense of blood pressure as patient is already tachycardic) echocardiogram will be done fasting in the morning. No technical document writer available for echocardiogram tonight. IMCU transfer cancelled Hospitalist Physical - Constitutional Vitals: Temp Pulse Resp BP Pulse Ox 98.0 F 131 H 29 H 140/110 94 10/28/21 17:28 10/28/21 18:01 10/28/21 18:01 10/28/21 18:01 10/28/21 18:01 General appearance: Present: no acute distress, other (laible mood) - EENT Eyes: Present: PERRL, EOM intact - Neck Neck: Present: normal ROM - Respiratory Respiratory effort: labored - Cardiovascular Rhythm: regular Heart Sounds: Present: S1 & S2. Absent: systolic murmur, diastolic murmur - Extremities Extremities: no ischemia, pulses intact, pulses symmetrical, No edema, normal temperature, normal color Peripheral Pulses: within normal limits - Abdominal General gastrointestinal: soft, non-tender, non-distended, hypoactive bowel sounds - Integumentary Integumentary: Present: warm, dry - Psychiatric Psychiatric: cooperative, agitated - Neurologic Neurologic: CNII-XII intact, no focal deficits, moves all extremities - Allied Health Allied health notes reviewed: nursing, RT HEART Score - HEART Score Troponin: Troponin T 0.013 ng/mL (0.00-0.029) 10/28/21 Unknown Results - Labs CBC & Chem 7: 10/28/21 06:15 10/28/21 Unknown Labs: Laboratory Last Values WBC 12.1 K/mm3 (4.5-11.0) H 10/28/21 06:15 RBC 2.42 M/mm3 (3.65-5.03) L 10/28/21 06:15 Hgb 7.0 gm/dl (10.1-14.3) L 10/28/21 06:15 Hct 24.1 % (30.3-42.9) L 10/28/21 06:15 MCV 99 fl (79-97) H 10/28/21 06:15 MCH 29 pg (28-32) 10/28/21 06:15 MCHC 29 % (30-34) L 10/28/21 06:15 RDW 19.2 % (13.2-15.2) H 10/28/21 06:15 Plt Count 484 K/mm3 (140-440) H 10/28/21 06:15 Lymph % (Auto) 4.7 % (13.4-35.0) L 10/22/21 09:02 Ray % (Auto) 10.2 % (0.0-7.3) H 10/22/21 09:02 Eos % (Auto) 0.4 % (0.0-4.3) 10/22/21 09:02 Baso % (Auto) 0.2 % (0.0-1.8) 10/22/21 09:02 Lymph # (Auto) 0.8 K/mm3 (1.2-5.4) L 10/22/21 09:02 Ray # (Auto) 1.8 K/mm3 (0.0-0.8) H 10/22/21 09:02 Eos # (Auto) 0.1 K/mm3 (0.0-0.4) 10/22/21 09:02 Baso # (Auto) 0.0 K/mm3 (0.0-0.1) 10/22/21 09:02 Add Manual Diff Complete 10/21/21 16:45 Total Counted 100 10/21/21 16:45 Seg Neutrophils % 84.5 % (40.0-70.0) H 10/22/21 09:02 Seg Neuts % (Manual) 86.0 % (40.0-70.0) H 10/21/21 16:45 Band Neutrophils % 0 % 10/21/21 16:45 Lymphocytes % (Manual) 7.0 % (13.4-35.0) L 10/21/21 16:45 Reactive Lymphs % (Man) 0 % 10/21/21 16:45 Monocytes % (Manual) 7.0 % (0.0-7.3) 10/21/21 16:45 Eosinophils % (Manual) 0 % (0.0-4.3) 10/21/21 16:45 Basophils % (Manual) 0 % (0.0-1.8) 10/21/21 16:45 Metamyelocytes % 0 % 10/21/21 16:45 Myelocytes % 0 % 10/21/21 16:45 Promyelocytes % 0 % 10/21/21 16:45 Blast Cells % 0 % 10/21/21 16:45 Nucleated RBC % Not Reportable 10/21/21 16:45 Seg Neutrophils # 14.5 K/mm3 (1.8-7.7) H 10/22/21 09:02 Seg Neutrophils # Man 18.7 K/mm3 (1.8-7.7) H 10/21/21 16:45 Band Neutrophils # 0.0 K/mm3 10/21/21 16:45 Lymphocytes # (Manual) 1.5 K/mm3 (1.2-5.4) 10/21/21 16:45 Abs React Lymphs (Man) 0.0 K/mm3 10/21/21 16:45 Monocytes # (Manual) 1.5 K/mm3 (0.0-0.8) H 10/21/21 16:45 Eosinophils # (Manual) 0.0 K/mm3 (0.0-0.4) 10/21/21 16:45 Basophils # (Manual) 0.0 K/mm3 (0.0-0.1) 10/21/21 16:45 Metamyelocytes # 0.0 K/mm3 10/21/21 16:45 Myelocytes # 0.0 K/mm3 10/21/21 16:45 Promyelocytes # 0.0 K/mm3 10/21/21 16:45 Blast Cells # 0.0 K/mm3 10/21/21 16:45 Pathologist Review 09/24/21 14:58 WBC Morphology Not Reportable 10/21/21 16:45 Hypersegmented Neuts Rare 10/21/21 16:45 Hyposegmented Neuts Not Reportable 10/21/21 16:45 Hypogranular Neuts Not Reportable 10/21/21 16:45 Smudge Cells Not Reportable 10/21/21 16:45 Toxic Granulation 2+ 10/21/21 16:45 Toxic Vacuolation Not Reportable 10/21/21 16:45 Dohle Bodies Not Reportable 10/21/21 16:45 Pelger-Huet Anomaly Not Reportable 10/21/21 16:45 Marlene Rods Not Reportable 10/21/21 16:45 Platelet Estimate Consistent w auto 10/21/21 16:45 Clumped Platelets Not Reportable 10/21/21 16:45 Plt Clumps, EDTA Not Reportable 10/21/21 16:45 Large Platelets Not Reportable 10/21/21 16:45 Giant Platelets Not Reportable 10/21/21 16:45 Platelet Satelliting Not Reportable 10/21/21 16:45 Plt Morphology Comment Not Reportable 10/21/21 16:45 RBC Morphology Normal 10/21/21 16:45 Dimorphic RBCs Not Reportable 10/21/21 16:45 Polychromasia Not Reportable 10/21/21 16:45 Hypochromasia Not Reportable 10/21/21 16:45 Poikilocytosis Not Reportable 10/21/21 16:45 Anisocytosis Not Reportable 10/21/21 16:45 Microcytosis Not Reportable 10/21/21 16:45 Macrocytosis Not Reportable 10/21/21 16:45 Spherocytes Not Reportable 10/21/21 16:45 Pappenheimer Bodies Not Reportable 10/21/21 16:45 Sickle Cells Not Reportable 10/21/21 16:45 Target Cells Not Reportable 10/21/21 16:45 Tear Drop Cells Not Reportable 10/21/21 16:45 Ovalocytes Not Reportable 10/21/21 16:45 Helmet Cells Not Reportable 10/21/21 16:45 [place] Bodies Not Reportable 10/21/21 16:45 [place] Rings Not Reportable 10/21/21 16:45 [place] Cells Not Reportable 10/21/21 16:45 Bite Cells Not Reportable 10/21/21 16:45 Crenated Cell Not Reportable 10/21/21 16:45 Elliptocytes Not Reportable 10/21/21 16:45 Acanthocytes (Spur) Not Reportable 10/21/21 16:45 Rouleaux Not Reportable 10/21/21 16:45 Hemoglobin C Crystals Not Reportable 10/21/21 16:45 Schistocytes Not Reportable 10/21/21 16:45 Malaria parasites Not Reportable 10/21/21 16:45 Flaco Bodies Not Reportable 10/21/21 16:45 Hem Pathologist Commnt No 10/21/21 16:45 PT 19.0 Sec. (12.2-14.9) H 10/14/21 04:05 INR 1.41 (0.87-1.13) H 10/14/21 04:05 APTT 33.9 Sec. (24.2-36.6) 10/14/21 04:05 D-Dimer > 49846 ng/mlDDU (0-234) H 10/28/21 15:15 ABG pH 7.509 pH Units (7.350-7.450) H 10/21/21 09:05 ABG pCO2 33.7 mm Hg 10/21/21 09:05 ABG pO2 60.3 mm Hg (80.0-90.0) L 10/21/21 09:05 ABG HCO3 26.2 mmol/L (20.0-26.0) H 10/21/21 09:05 ABG O2 Saturation 97.5 % (95.0-99.0) 10/21/21 09:05 ABG O2 Content 9.0 (0.0-44) 10/21/21 09:05 ABG Base Excess 3.0 mmol/L (-2.0-3.0) 10/21/21 09:05 ABG Hemoglobin 6.7 gm/dl (12.0-16.0) L 10/21/21 09:05 ABG Carboxyhemoglobin 1.8 % (0.0-5.0) 10/21/21 09:05 ABG Methemoglobin 0.4 % (0.0-1.5) 10/21/21 09:05 Oxyhemoglobin 95.3 % (95.0-99.0) 10/21/21 09:05 FiO2 28 % 10/21/21 09:05 Sodium 134 mmol/L (137-145) L D 10/28/21 07:15 Potassium 4.3 mmol/L (3.6-5.0) D 10/28/21 07:15 Chloride 97.6 mmol/L (98-107) L 10/28/21 07:15 Carbon Dioxide 24 mmol/L (22-30) D 10/28/21 07:15 Anion Gap 17 mmol/L 10/28/21 07:15 BUN 19 mg/dL (7-17) H 10/28/21 07:15 Creatinine 0.7 mg/dL (0.6-1.2) 10/28/21 Unknown Estimated GFR > 60 ml/min 10/28/21 Unknown BUN/Creatinine Ratio 27 % 10/28/21 07:15 Glucose 137 mg/dL (65-100) H 10/28/21 07:15 POC Glucose 130 mg/dL (70-105) H 10/28/21 05:10 Lactic Acid 1.80 mmol/L (0.7-2.0) 10/10/21 04:10 Calcium 8.4 mg/dL (8.4-10.2) 10/28/21 07:15 Phosphorus 4.00 mg/dL (2.5-4.5) D 10/28/21 07:15 Magnesium 1.80 mg/dL (1.7-2.3) 10/28/21 07:15 Ferritin 751.9 ng/mL (10.0-200.0) H 10/09/21 05:31 Total Bilirubin 0.20 mg/dL (0.1-1.2) 10/26/21 04:18 AST 71 units/L (5-40) H 10/26/21 04:18 ALT 91 units/L (7-56) H 10/26/21 04:18 Alkaline Phosphatase 97 units/L (35-129) 10/26/21 04:18 Lactate Dehydrogenase 472 units/L (91-180) H 10/09/21 05:31 Total Creatine Kinase 45 units/L (30-135) 10/13/21 04:05 Troponin T 0.013 ng/mL (0.00-0.029) 10/28/21 Unknown C-Reactive Protein 15.90 mg/dL (0.00-1.30) H 10/09/21 05:31 Total Protein 6.8 g/dL (6.3-8.2) 10/26/21 04:18 Albumin 2.3 g/dL (3.9-5) L 10/26/21 04:18 Albumin/Globulin Ratio 0.5 % 10/26/21 04:18 Triglycerides 196 mg/dL (2-149) H 10/26/21 04:18 Procalcitonin 12.98 ng/mL (<0.15) 10/09/21 05:31 Urine Color Yellow (Yellow) 10/18/21 11:40 Urine Turbidity Clear (Clear) 10/18/21 11:40 Urine pH 6.0 (5.0-7.0) 10/18/21 11:40 Ur Specific [place] 1.015 (1.003-1.030) 10/18/21 11:40 Urine Protein 30 mg/dl mg/dL (Negative) 10/18/21 11:40 Urine Glucose (UA) Trace mg/dL (Negative) 10/18/21 11:40 Urine Ketones Negative mg/dL (Negative) 10/18/21 11:40 Urine Blood Moderate (Negative) A 10/18/21 11:40 Urine Nitrite Negative (Negative) 10/18/21 11:40 Ur Reducing Substances Not Reportable 09/24/21 14:49 Urine Bilirubin Negative (Negative) 10/18/21 11:40 Urine Ictotest Not Reportable 09/24/21 14:49 Urine Urobilinogen 0.0 mg/dL (<2.0) 10/18/21 11:40 Ur Leukocyte Esterase Negative (Negative) 10/18/21 11:40 Urine WBC (Auto) 50.0 /HPF (0.0-6.0) H 10/18/21 11:40 Urine RBC (Auto) > 182.0 /HPF (0.0-6.0) 10/18/21 11:40 U Epithel Cells (Auto) 2.0 /HPF (0-13.0) 10/18/21 11:40 Urine Bacteria (Auto) 2+ /HPF (Negative) 10/18/21 11:40 Urine WBC Clumps 1+ /HPF 10/18/21 11:40 Hyaline Casts Few /LPF 10/18/21 11:40 Granular Casts Few /LPF 10/18/21 11:40 Urine Mucus 3+ /HPF 10/18/21 11:40 Urine HCG, Qual Negative (Negative) 09/24/21 14:49 Coronavirus (PCR) Negative (Negative) 10/09/21 10:15 Miscellaneous Test Flexitest 1 H 10/21/21 16:05 Blood Type A POSITIVE 10/28/21 12:20 Antibody Screen Negative 10/28/21 12:20 Crossmatch See Detail 10/28/21 12:20 Brantley/IV: Voiding Method External Female Catheter Active Medications - Current Medications Current Medications: Generic Name Dose Route Start Last Admin Trade Name Freq PRN Reason Stop Dose Admin Acetaminophen 975 mg 10/29/21 19:00 Acetaminophen 325 Mg Tab PO Q6H JAZ Albuterol 2.5 mg 09/24/21 18:07 Albuterol 2.5 Mg/3 Ml Nebu IH Q4HRT PRN Shortness Of Breath Alprazolam 1 mg 10/28/21 14:00 10/28/21 13:24 Alprazolam 1 Mg Tab PO 1 mg Q8HR JAZ Administration Buspirone HCl 10 mg 10/28/21 22:00 Buspirone 10 Mg Tab PO BID JAZ Dextrose 0 ml 10/03/21 12:37 Dextrose 10% *Hypoglycemia IV PRN PRN Hypoglycemia Diphenhydramine HCl 25 mg 10/04/21 15:14 10/25/21 10:05 Diphenhydramine 50 Mg/Ml Vial IV 25 mg Q6H PRN Administration Itching Heparin Sodium (Porcine) 5,000 unit 10/16/21 10:00 10/28/21 11:42 Heparin 5,000 Unit/1 Ml Vial SUB-Q 5,000 unit Q12HR JAZ Administration Hydralazine HCl 10 mg 10/27/21 22:33 Hydralazine 20 Mg/1 Ml Inj IV Q4H PRN Hypertension Hydromorphone HCl 0.5 mg 10/18/21 15:39 10/28/21 15:43 Hydromorphone 1 Mg/1 Ml Inj IV 0.5 mg Q3H PRN Administration Pain, Moderate (4-6) Hydrophilic Ointment 1 applic 10/08/21 21:00 10/24/21 12:50 Lip Therapy Vaseline TP 1 applic Q2HR PRN Administration Dry Lips Amino Acids/Electrolytes/Dextrose 1,999.92 mls @ 83.33 mls/hr 10/27/21 20:00 10/27/21 22:20 Tpn Adult IV 10/28/21 19:59 83.33 mls/hr DAILY@1999 JAZ Administration Protocol Sodium Chloride 500 mls @ 0 mls/hr 10/28/21 07:54 Nacl 0.9% 500 Ml IV 10/28/21 20:00 ONCE NR As Directed Amino Acids/Electrolytes/Dextrose 1,999.92 mls @ 83.33 mls/hr 10/28/21 20:00 Tpn Adult IV 10/29/21 19:59 DAILY@1999 [facility] Protocol Acetaminophen 1,000 mg in 100 mls @ 400 mls/hr 10/28/21 13:00 10/28/21 13:31 Acetaminophen Iv IV 10/29/21 14:00 400 mls/hr Q6H JAZ Administration Sodium Chloride 1,000 mls @ 50 mls/hr 10/28/21 15:00 Nacl 0.45% 1000 Ml IV 10/29/21 10:59 DIRECT JAZ Insulin Glargine 5 units 10/13/21 10:00 10/28/21 11:42 Insulin Glargine 100 Units/Ml SUB-Q 5 units QDAY [facility] Administration Insulin Human Regular 0 units 10/10/21 00:00 10/28/21 12:02 Insulin Regular, Human 100 Units/1 Ml SUB-Q 3 units Q6HR JAZ Administration Protocol Labetalol HCl 10 mg 10/01/21 08:31 10/28/21 09:10 Labetalol 20 Mg/4 Ml Inj IV 10 mg Q6H PRN Administration Hypertension Lorazepam 2 mg 10/28/21 08:00 10/28/21 08:04 Lorazepam 2 Mg/Ml Vial IV 2 mg Q4H PRN Administration Agitation Metoprolol Tartrate 12.5 mg 10/28/21 14:00 10/28/21 17:37 Metoprolol Tartrate 25 Mg Tab PO 12.5 mg QID JAZ Administration Metoprolol Tartrate 5 mg 10/28/21 14:31 10/28/21 14:41 Metoprolol Tartrate 5 Mg/5 Ml Inj IV 10/31/21 14:30 5 mg Q6HR PRN Administration Tachyarrhythmias Multi-Ingred Cream/Lotion/Oil/Oint 1 applic 10/08/21 21:00 Mineral Oil/Petrolatum, White Ophth Oint 3.5 Gm OU Q4HR PRN Dry Eye(s) Naloxone HCl 0.1 mg 10/03/21 14:00 Naloxone 0.4 Mg/1 Ml Inj IV Q2MIN PRN Res Rate </= 8 or 02 SAT < 92% Ondansetron HCl 4 mg 09/24/21 18:07 10/27/21 22:02 Ondansetron 4 Mg/2 Ml Inj IV 4 mg Q8H PRN Administration Nausea And Vomiting Pantoprazole Sodium 40 mg 10/20/21 17:00 10/28/21 11:38 Pantoprazole 40 Mg Inj IV 40 mg QDAY [facility] Administration Phenol 1 spray 10/02/21 13:00 10/03/21 10:23 Phenol 1.4% 177 Ml Bottle MM 1 spray PRN PRN Administration Sore Throat Scopolamine 1 each 10/04/21 10:00 10/28/21 11:37 Scopolamine Transdermal Patch 72 Hr TD 1 each Q3D JAZ Administration Sodium Chloride 10 ml 09/24/21 22:00 10/28/21 11:37 Sodium Chloride 0.9% 10 Ml Flush Syringe IV 10 ml BID JAZ Administration Sodium Chloride 10 ml 09/24/21 18:07 09/25/21 08:34 Sodium Chloride 0.9% 10 Ml Flush Syringe IV 10 ml PRN PRN Administration LINE FLUSH Nutrition/Malnutrition Assess - Dietary Evaluation Nutrition/Malnutrition Findings: Nutrition Notes Start: 09/25/21 15:31 Freq: Status: Active Protocol: Document 10/28/21 11:37 BIN (Rec: 10/28/21 11:48 BIN [id number]) Nutrition Notes Initial or Follow up Reassessment Current Diagnosis Acute Kidney Injury,Sepsis Other Pertinent Diagnosis s/p appendectomy, s/p exp lap with colostomy, anemia, Anxiety. Current Diet CPN at 83.33 ml/hr Labs/Tests 10/28: Na 134, Cl 97.6, BUN 19 , Glu 137. Pertinent Medications 10/28: Insulin, others nutritionally unremarkable. Height 5 ft 7 in Weight 109 kg [place] Body Weight (kg) 61.36 BMI 37.6 Weight change and time frame No body weight change reported in 4 days. Weight Status Obese Subjective/Other Information Day 25 TPN. Pt continues on nasal cannula, according to Progress notes. Pt still on CC1, tranfer to IMCU on hold. Pt presents persistent tachicardia, according to Progress notes. Pt tolerating well ice chips and sips of water, with no N/V nor Abdominal Pain, according to Progress notes. Pt produced 200 ml brown stool on colostomy bag, according to RN notes. TPN order duplicated due to no shift dietitian tomorrow, pharmacy notified. Percent of energy/protein needs met: 86% Kcal; 98% AA. Burn Absent Trauma Absent GI Symptoms Other Food Allergy No Skin Integrity/Comment Surgical wound Current % PO Other Minimum of two criteria No #1 Nutrition Diagnosis Altered GI function Diagnosis Progress(for reassessment Continues documentation) Is patient on ventilator? No Is Patient Ambulatory and/or Out of Bed No REE-([place]-confined to bed) 2200.920 Kcal/Kg value to use for calculation 16 Approximate Energy Requirements Using 1744 kcal/Kg Calculation Used for Recommendations Kcal/kg Additional Notes Protein: 2 g/Kg; 123 g/day IBW . Fluids: 1 mL/Kcal, or as per MD. Nutrition Intervention Nutrition Support: Continue CPN at 83.33ml/hr: Osmolality: 1620. Na 200 mEq. 50/50 % Cl to CO2 ratio. MVI 10 ml. Trace Elements 1 ml. Kcal 1,500 Protein (gm) 120 Carbohydrates (gm) 300 Fat (gm) 0 Fluid (mL) 2,000 Fiber (gm) 0 % RDI: 86% Kcal; 98% AA. Goal #1 Provide at least 75% of energy /protein needs through Parenteral Feeding during LOS. Goal #2 Maintain body weight within +/ -3% of admission body weight during LOS. Follow-Up By: 10/30/21 Additional Comments Continue monitoring CPN tolerance and BM. BMP, Phos, and Mg labs ordered .
[2021-10-28] MEDS ORDERED: TOTAL PARENTERAL NUTRITION 1,999.92 ML IV SCH (20:00)
[2021-10-28] MEDS: diphenhydrAMINE 50 MG/ML VIAL IV PRN (22:26)
[2021-10-28] MEDS: busPIRone 10 MG TAB PO SCH (22:27)
[2021-10-29] MEDS: ACETAMINOPHEN IV 1,000 MG/100 ML BOTTLE IV SCH ×2 (00:10→12:30)
[2021-10-29] MEDS: HYDROmorphone 1 MG/1 ML INJ IV PRN ×4 (02:38→17:10)
[2021-10-29 04:52] LABS: Hematocrit 24.5 % (30.3-42.9); Hemoglobin 8.1 gm/dl (10.1-14.3); Mean Corpuscular HGB Conc 33 % (30-34); Mean Corpuscular Volume 89 fl (79-97); Platelet Count 473 K/mm3 (140-440); Red Blood Count 2.76 M/mm3 (3.65-5.03); Red Cell Distribution Width 16.5 % (13.2-15.2)
[2021-10-29] MEDS: busPIRone 10 MG TAB PO SCH ×2 (10:42→10:52)
[2021-10-29] MEDS: METOPROLOL TARTRATE 25 MG TAB PO SCH (10:43)
--- NOTE | 2021-10-29 10:43 | Progress Note ---
Assessment and Plan Cultures: 09/24/2021 blood culture: No growth 09/30/2021 YURIDIA drain wound culture: VRE - Enterococcus faecium 10/08/2021 blood culture: No growth 10/11/2021 intra-abdominal surgical culture: Jo Ann albicans, MSSA, Stenotrophomonas 10/12/2021 tracheal culture: No growth 10/18/2021 blood culture: no growth 10/18/2021 urine culture: no growth 10/18/2021 sputum culture: Stenotrophomonas A/P: 31-year-old female past medical history obesity, nephrolithiasis admitted with: #Sepsis: Secondary to intra-abdominal infection. 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 Extubated 08/20/2021. Cultures grew Stenotrophomonas. Resolved with diuretics, now on room air. #Pericardial effusion: cardiology following. #Leukocytosis, reactive thrombocytosis #BRYANNA: resolved. #Obesity Recs: -remains afebrile, WBC stable and gradually improving, continue to monitor off abx Will sign off. Please call with questions. Mónica Swan MD, FACP, [facility] ([facility] O: [phone] F: [phone] C: [phone] Subjective Date of service: 10/29/21 Principal diagnosis: Septic shock; AHRF; PNA; BRYANNA; s/p appendectomy; VRE infection; Peritonitis Interval history: No fever. Complaining of chest pain. Remains on room air. Tachycardic. Found to have pericardial effusion, cardiology following. Objective - Exam Narrative Exam: Physical Exam: Constitutional: Awake, alert, no distress Head, Ears, Nose: Normocephalic, atraumatic. External ears, nose normal Eyes: Conjunctivae/corneas clear. No icterus. No ptosis. Neck: supple Cardiovascular: S1, S2 +, tachy Respiratory: AE fair bilaterally GI: Soft, dressing, drain present, colostomy + Musculoskeletal: Obese, no pedal edema Skin: No rash or abscess Hem/Lymphatic: No palpable cervical or supraclavicular nodes. No lymphangitis Psych: anxious, no agitation Neurological: Awake, alert, answering questions - Constitutional Vitals: Vital Signs Temp Pulse Resp BP Pulse Ox 98.7 F 121 H 24 119/80 98 10/29/21 08:00 10/29/21 08:30 10/29/21 09:00 10/29/21 09:00 10/29/21 08:46 Temperature -Last 24 Hours Temperature 98.7 F Temperature 97.7 F Temperature 97.6 F Temperature 98.5 F Temperature 98.0 F Temperature 98.2 F Temperature 98.2 F Temperature 98.9 F Temperature 99.0 F - Labs CBC & Chem 7: 10/29/21 Unknown 10/28/21 Unknown Labs: Abnormal lab results 10/21/21 10/28/21 10/28/21 Range/Units 16:05 11:45 12:20 WBC (4.5-11.0) K/mm3 RBC (3.65-5.03) M/mm3 Hgb (10.1-14.3) gm/dl Hct (30.3-42.9) % RDW (13.2-15.2) % Plt Count (140-440) K/mm3 D-Dimer (0-234) ng/mlDDU POC Glucose 172 H (70-105) mg/dL Miscellaneous Test Flexitest 1 H Crossmatch See Detail 10/28/21 10/28/21 10/29/21 Range/Units 15:15 16:26 Unknown WBC 11.7 H (4.5-11.0) K/mm3 RBC 2.76 L (3.65-5.03) M/mm3 Hgb 8.1 L (10.1-14.3) gm/dl Hct 24.5 L (30.3-42.9) % RDW 16.5 H (13.2-15.2) % Plt Count 473 H (140-440) K/mm3 D-Dimer > 76050 H (0-234) ng/mlDDU POC Glucose 163 H (70-105) mg/dL Miscellaneous Test Crossmatch
[2021-10-29] MEDS: PANTOPRAZOLE 40 MG INJ IV SCH (10:52)
[2021-10-29] MEDS ORDERED: SODIUM CHLORIDE 0.45% 1000 ML IV SOLN IV SCH (11:00)
[2021-10-29] MEDS: INSULIN GLARGINE 100 UNITS/ML SUB-Q SCH (11:03)
[2021-10-29] MEDS: HEPARIN 5,000 UNIT/1 ML VIAL SUB-Q SCH (11:05)
[2021-10-29] MEDS: SODIUM CHLORIDE 0.45% 1000 ML 1,000 ML IV SCH ×2 (11:30→14:01)
--- NOTE | 2021-10-29 11:47 | Event Note ---
Patient seen and examined today. Please see full note for details. Patient has a new large pericardial effusion. She has multifactorial physiologic sinus tachycardia. She remains mildly hypertensive. We will increase IV fluid and hold on all antihypertensives. The etiology of this pericardial effusion is unclear but may in fact be reactive. Discussed with cardiothoracic surgery at [place]. Will transfer patient to [facility] ICU for possible pericardial window. Given the absence of a true emergency here, I do not feel comfortable performing pericardiocentesis here without surgical backup. Patient appears clinically stable for transfer. I discussed my findings and plan of care including transfer to all parties including ICU nurse, Dr. Huddleston, and attending hospitalist. Of course, we have also spoken to the patient about our findings and overall plan. She is in agreement.
[2021-10-29] MEDS: INSULIN REGULAR, HUMAN 100 UNITS/1 ML SUB-Q SCH ×2 (12:22→17:22)
--- NOTE | 2021-10-29 12:26 | Progress Note ---
Assessment and Plan Assessment and plan: This is a 31-year-old female with obesity and nephrolithiasis admitted with pericolonic abscess secondary to contained perforated diverticulitis, peritonitis complicated by acute blood loss anemia, acute kidney injury and acute hypoxic respiratory failure. Neuro: Anxiety -s/p precedex gtt -prn haldol and ativan -Scheduled Ativan and BuSpar -Avoid delirium -Reorientation as needed -Maintain sleep-wake cycle -Psych/mental health consulted, appreciate recommendations -continue ativan prn and signed off 10/27 Cardiac: Pericardial Effusion -Cardiology consulted, patient recommendation -Blood pressure monitoring per protocol -s/p vasopressor support with Levophed and vasopressin -Echocardiogram shows normal right ventricular function, LVEF 55 to 60% -Patient complaining of midsternal chest pressure with radiation to right arm, tachycardic to 130s/140s -Troponin negative -ECG shows no acute findings -Increasing beta-hosea per cardiology -10/28 CTA chest shows no evidence of pulmonary embolism, large pericardial effusion increased since exam to 6 days ago, trace left pleural effusion, complete compressive atelectasis of left lower lobe. -Dr. Flores and Dr Vega aware -Stat 2d echo : large circumferential pericardial effusion. no tamponade physiology apparent. -Cardiology aware of findings, has initiated transfer with [facility] for CTS completion of pericardila window. Pending bed availability. 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, diverticulitis with absce ss, moderate protein calorie malnutrition, h/o obesity -Surgery consulted, appreciate recommendations -s/p ex lap with washout of pericolonic abscess and drain placement on 09/26/2021 -s/p open left hemicolectomy, appendectomy and partial omentectomy on 10/01 -s/p colostomy creation with closure of abdomen on 10/14/2021 -10/09 CT abdomen/pelvis showed a new collection of air within the left midabdomen -CT guided drain placement with IR -24 hours: -1250 mL -medial abd 950 mL -Right lower abdomen 550 mL -PPI -TPN -PICC line placed 10/27 -CLD : Acute kidney injury secondary to vasomotor nephropathy versus contrast induced (resolved) -Nephrology and urology consulted, appreciate recommendations -Strict intake and output -Renally dose medications -Avoid nephrotoxic medications -Daily weights -s/p IV Lasix nephrology -Trend BMP -S/p bilateral ureteral stents -10/12 Intra-Op cystoscopy completed and bilateral ureteral stents placed (removed 10/13) -Repeat renal US noted -Half-normal saline x1 L for renal protection strategies post CTA chest with contrast ID: Acute sepsis secondary to pericolonic abscess with appendiceal rupture fistulization, peritonitis, VRE and jean marie albicans in wound culture -Infectious disease consulted, appreciate recommendations -COVID 19 PCR negative -S/p drain placement and diagnostic laparotomy on 09/26 -Antibiotic therapy per ID -completed course -f/u blood culture -Monitor WBC and temperature curve Endo: NAD -Avoid hypoglycemia -SSI -Accu-Cheks q6 -Long-acting insulin, titrate as needed Heme: Acute blood loss anemia, elevated D-dimer, hematuria, leukocytosis, thrombocytosis -Patient had hematuria after ureteral injury sustained from surgical procedures -Urology consulted, appreciate recommendation -10/09 CTA chest with no evidence of PE. Findings suggesting multifocal pneumonia vs pulmonary edema -10/28 CTA chest with no evidence of PE, pericardial effusion, near complete compressive atelectasis of left lower lobe -Bilateral lower extremity Doppler ultrasound shows no sonographic evidence of DVT however shows subcutaneous edema in lower extremities -Trend CBC -Transfuse hemoglobin less than 7 -S/p 7 units PRBC -Monitor for signs of bleeding -SCDs to BLE while in bed -Heparin subq The high probability of a clinically significant, sudden or life threatening deterioration of the [multi] system(s) required my full and direct attention, intervention and personal management. The aggregate critical care time was [90] minutes. This time is in addition to time spent performing reported procedures but includes the following: [x] Data Review and interpretation [x] Patient assessment and monitoring of vital signs [x] Documentation [x] Medication orders and management Disposition Plan: icu Total Time Spent with Patient (Minutes): 60 History Interval history: This is a 31-year-old female with obesity and nephrolithiasis admitted with complaints of abdominal pain, lower back pain, nausea no with episodes of vomiting over the past dayon 09/24. Patient underwent a CT scan of the abdomen and pelvis and was found to have acute diverticulitis complicated by sepsis and was admitted to the medical floor initiated sepsis protocol. Surgery team was consulted in the emergency department. ICU Course to Date: 10/09: Intubated and sedated, RASS -1 to -2. Recent CXR noted with worsen bilateral opacities with persistent leukocytosis, elevated lactic, and now on 2 pressors. Patient remains afebrile, and already on IV Abx per ID. Will swab patient for COVID. Given recent surgery orders placed for CTA chest, CT Abd/plevis. And also BLE dopplers due to elevated D-Dimer. Renal function is improving, additional IVF to flush out kidney post contrast, Nephrology is also following. Continue TPN and NGT to LIS. 10/10: COVID PCR negative. CTA chest and Abd/plevis noted. No evidence of PE. Patient received X1 dose of 20mg IV lasix per Nephro for pulmonary edema, this am CXR with some improvement, renal function is also improving. Wean vent setting as tolerated per CCM. Plan for possible CT guided drainage placement in IR tomorrow. Continue TPN and NGT to LIS. 10/11: Patient with anemia, 1 unit PRBC, scheduled for CT-guided drain image of air pocket. Will place on CPAP on return. Slightly worsening renal function but nephrology is on the case. 10/12: Taken to OR today for diverting ileostomy, given 3 units PRBC yesterday and appropriate response. Surgical culture grew yeast and ID added added fluconazole. 10/13: Hypomagnesemia repleted, renal function improving. Patient remains sedated with fentanyl and propofol. Updated sister and father at bedside. Ureteral stents removed at bedside. Plan to to take patient to the OR tomorrow for second look, abdominal washout, colostomy creation on hold for abdominal closure by surgery. We will hold p.m. dose of heparin. 10/14: Plan to take patient back to OR today, prophylactic anticougulation on hold. 2 units prbc on hold for surgery. Plan to close abd and colostomy cr eation. Vent weaning on hold till abd closure 10/15: Renal function remains stable, leukocytosis increased, remains sedated on propofol and fentanyl and on mechanical ventilation. Plan is to hold SBT until the weekend. Repeat renal ultrasound pending per urology. 10/16: no acute events overnight. remains on fent and propofol. plan to sbt on monday. 10/17: noted drop in hgb from 8 to 7.2 and will given one unit prbc. remains on fent/propofol. CARMEN overnight. Will retract OETT per rad reading. 10/18: Febrile this am with worsen leukocytosis. Continue IV Abx per ID, orders placed for cultures. Patient tolerating PST, d/w [facility] plan for possible extubation today. Abdominal insicion and colostomy noted, no signs of any complications noted. Continue TPN and NGT to LIS per General surgery. 10/19: S/p extubation, now stable on 2L NC. Fevers improved, cultures pending continue IV Abx per ID. Patient is still with absent bowel sounds, continue TPN and NGT to LIS per General surg. Okay to remove brantley per Urology. Electrolytes repleted, repeat labs in the am. Patient is stable for transfer to [facility]. 10/20: Continue current management. Patient remained stable on 2 L of oxygen but appears anxious with increased tachypnea. We will add incentive spirometer. Will check and monitor intermittent x-rays. Continue antibiotics per infectious disease. Renal function has normalized. We will good urine output. We will check blood work in a.m. Awaiting return of bowel function 10/21: Patient on BiPAP this am, xray from yesterday concerning for Aspiration pneumonia vs atalalectsis, patient still with increased WOB although improved compared to yesterday. Leukocytosis a bit worse, will continue to monitor and discuss with ID if more broad spectrum therapy should be considered. She is currently on Bactrim for positive tracheal aspirate with Stenotrophomonas. Continue aspiration precautions. may need repeat xray but will discuss with pulmonary. Continue Strict NPO and Aspiration precautions. Continues on TPN. Prognosis guarded. ?Third spacing 10/22: Back in the ICU due to hypoxia, increased WOB, and tachycardia requiring continuous Bipap. Patient is now on precedex gtt for increased anxiety. Repeat BLE doppler with no evidence of DVT . D/W [facility] paln for CTA chest and CT abd/Pelvis today. Mild improvement in leukocytosis today, patient is afebrile, continue IV Abx per ID. Remains on TPN and NGT to LIS. 10/23: CTA chest and CT Abd/Pelvis noted- no evidence of PE, multiloculated co llection along the left mid abdomen have all decreased in size, with persistent anasarca. Will started IV Lasix [id number]. Plan to wean to NC today, continue Bipap Qhs or as needed. Close monitoring of renal function and electrolytes, replete as needed. Plan to Clamp NGT today per General Surgery. Continue TPN. 10/24: Patient tolerated IV lasix, stable on 3L NC this am, no respiratory distress noted. Continue gentle diurese, IV Lasix X3 doses. Remains on NGT clamped per Gen Surgery. Patient is tolerating ice chips. Patient is okayed for sips of water per General Surgery. Continue TPN and wound care management per General Surgery. 10/25: We will discontinue Precedex, start as needed Haldol and order PICC line. Magnesium repleted. Continues on TPN. 10/26: Patient is tachycardic and has a slight increase in leukocytosis. She continues to have intermittent low-grade fevers. Remains off antibiotics per ID. Continue n.p.o. and resume NG tube to low normal suction. Patient will be transferred to IMCU. Might warrant further testing if leukocytosis and fevers continue. Long discussion at bedside with Dr. Huddleston and Dr. Vega. 10/27: Due to persistent tachycardia surgery would like cardiology consulted. Patient was started on a beta-hosea. Psych has signed off on the patient. Le ukocytosis improving. Afebrile for 24 hours. Given mag citrate by surgery 10/28: Patient is complaining of chest pain which feels like pressure mid chest with radiation to right arm, CTA chest ordered. Cardio increased BB. Added scheduled buspar/ativan. CTA chest shows large pericardial effusion. Dr. Ruvalcaba and Gary aware. Ordered stat 2 d echo. Stanford Miranda NP aware of findings who relayed read to Dr. Kidd. Per Dr. Kidd CT tends to overread by cardiac fusion and as long as patient is hemodynamically stable (clarification: In the sense of blood pressure as patient is already tachycardic) echocardiogram will be done fasting in the morning. No behavioral technician available for echocardiogram tonight. IMCU transfer cancelled. 10/29: D/w Cardiology. Large circumferential pericardial effusion without tamponade physiology was visualized on echocardiogram. Likely contributory to multifactorial sinus tachycardia. Patient remains hypertensive. Cardiology recommends increased fluid admin and holding anti-HTN meds. Referral made to [facility] for CTS completion of pericardial window. Pending bed availability. Hospitalist Physical - Physical exam Narrative exam: General appearance: Present: no acute distress, other (laible mood) - EENT Eyes: Present: PERRL, EOM intact - Neck Neck: Present: normal ROM - Respiratory Respiratory effort: labored - Cardiovascular +Sinus tachycardia Rhythm: regular Heart Sounds: Present: S1 & S2. Absent: systolic murmur, diastolic murmur - Extremities Extremities: no ischemia, pulses intact, pulses symmetrical, No edema, normal temperature, normal color Peripheral Pulses: within normal limits - Abdominal General gastrointestinal: soft, non-tender, non-distended, hypoactive bowel sounds - Integumentary Integumentary: Present: warm, dry - Psychiatric Psychiatric: cooperative, agitated - Neurologic Neurologic: CNII-XII intact, no focal deficits, moves all extremities - Allied Health Allied health notes reviewed: nursing, RT - Constitutional Vitals: Temp Pulse Resp BP Pulse Ox 98.7 F 135 H 39 H 132/99 98 10/29/21 08:00 10/29/21 11:46 10/29/21 11:46 10/29/21 11:46 10/29/21 11:46 General appearance: Present: no acute distress, other (laible mood) HEART Score - HEART Score Troponin: Troponin T 0.013 ng/mL (0.00-0.029) 10/28/21 Unknown Results - Labs CBC & Chem 7: 10/29/21 Unknown 10/28/21 Unknown Labs: Laboratory Last Values WBC 11.7 K/mm3 (4.5-11.0) H 10/29/21 Unknown RBC 2.76 M/mm3 (3.65-5.03) L 10/29/21 Unknown Hgb 8.1 gm/dl (10.1-14.3) L 10/29/21 Unknown Hct 24.5 % (30.3-42.9) L 10/29/21 Unknown MCV 89 fl (79-97) 10/29/21 Unknown MCH 29 pg (28-32) 10/29/21 Unknown MCHC 33 % (30-34) 10/29/21 Unknown RDW 16.5 % (13.2-15.2) H 10/29/21 Unknown Plt Count 473 K/mm3 (140-440) H 10/29/21 Unknown Lymph % (Auto) 4.7 % (13.4-35.0) L 10/22/21 09:02 Grainger % (Auto) 10.2 % (0.0-7.3) H 10/22/21 09:02 Eos % (Auto) 0.4 % (0.0-4.3) 10/22/21 09:02 Baso % (Auto) 0.2 % (0.0-1.8) 10/22/21 09:02 Lymph # (Auto) 0.8 K/mm3 (1.2-5.4) L 10/22/21 09:02 Grainger # (Auto) 1.8 K/mm3 (0.0-0.8) H 10/22/21 09:02 Eos # (Auto) 0.1 K/mm3 (0.0-0.4) 10/22/21 09:02 Baso # (Auto) 0.0 K/mm3 (0.0-0.1) 10/22/21 09:02 Add Manual Diff Complete 10/21/21 16:45 Total Counted 100 10/21/21 16:45 Seg Neutrophils % 84.5 % (40.0-70.0) H 10/22/21 09:02 Seg Neuts % (Manual) 86.0 % (40.0-70.0) H 10/21/21 16:45 Band Neutrophils % 0 % 10/21/21 16:45 Lymphocytes % (Manual) 7.0 % (13.4-35.0) L 10/21/21 16:45 Reactive Lymphs % (Man) 0 % 10/21/21 16:45 Monocytes % (Manual) 7.0 % (0.0-7.3) 10/21/21 16:45 Eosinophils % (Manual) 0 % (0.0-4.3) 10/21/21 16:45 Basophils % (Manual) 0 % (0.0-1.8) 10/21/21 16:45 Metamyelocytes % 0 % 10/21/21 16:45 Myelocytes % 0 % 10/21/21 16:45 Promyelocytes % 0 % 10/21/21 16:45 Blast Cells % 0 % 10/21/21 16:45 Nucleated RBC % Not Reportable 10/21/21 16:45 Seg Neutrophils # 14.5 K/mm3 (1.8-7.7) H 10/22/21 09:02 Seg Neutrophils # Man 18.7 K/mm3 (1.8-7.7) H 10/21/21 16:45 Band Neutrophils # 0.0 K/mm3 10/21/21 16:45 Lymphocytes # (Manual) 1.5 K/mm3 (1.2-5.4) 10/21/21 16:45 Abs React Lymphs (Man) 0.0 K/mm3 10/21/21 16:45 Monocytes # (Manual) 1.5 K/mm3 (0.0-0.8) H 10/21/21 16:45 Eosinophils # (Manual) 0.0 K/mm3 (0.0-0.4) 10/21/21 16:45 Basophils # (Manual) 0.0 K/mm3 (0.0-0.1) 10/21/21 16:45 Metamyelocytes # 0.0 K/mm3 10/21/21 16:45 Myelocytes # 0.0 K/mm3 10/21/21 16:45 Promyelocytes # 0.0 K/mm3 10/21/21 16:45 Blast Cells # 0.0 K/mm3 10/21/21 16:45 Pathologist Review 09/24/21 14:58 WBC Morphology Not Reportable 10/21/21 16:45 Hypersegmented Neuts Rare 10/21/21 16:45 Hyposegmented Neuts Not Reportable 10/21/21 16:45 Hypogranular Neuts Not Reportable 10/21/21 16:45 Smudge Cells Not Reportable 10/21/21 16:45 Toxic Granulation 2+ 10/21/21 16:45 Toxic Vacuolation Not Reportable 10/21/21 16:45 Dohle Bodies Not Reportable 10/21/21 16:45 Pelger-Huet Anomaly Not Reportable 10/21/21 16:45 Marlene Rods Not Reportable 10/21/21 16:45 Platelet Estimate Consistent w auto 10/21/21 16:45 Clumped Platelets Not Reportable 10/21/21 16:45 Plt Clumps, EDTA Not Reportable 10/21/21 16:45 Large Platelets Not Reportable 10/21/21 16:45 Giant Platelets Not Reportable 10/21/21 16:45 Platelet Satelliting Not Reportable 10/21/21 16:45 Plt Morphology Comment Not Reportable 10/21/21 16:45 RBC Morphology Normal 10/21/21 16:45 Dimorphic RBCs Not Reportable 10/21/21 16:45 Polychromasia Not Reportable 10/21/21 16:45 Hypochromasia Not Reportable 10/21/21 16:45 Poikilocytosis Not Reportable 10/21/21 16:45 Anisocytosis Not Reportable 10/21/21 16:45 Microcytosis Not Reportable 10/21/21 16:45 Macrocytosis Not Reportable 10/21/21 16:45 Spherocytes Not Reportable 10/21/21 16:45 Pappenheimer Bodies Not Reportable 10/21/21 16:45 Sickle Cells Not Reportable 10/21/21 16:45 Target Cells Not Reportable 10/21/21 16:45 Tear Drop Cells Not Reportable 10/21/21 16:45 Ovalocytes Not Reportable 10/21/21 16:45 Helmet Cells Not Reportable 10/21/21 16:45 [place] Bodies Not Reportable 10/21/21 16:45 [place] Rings Not Reportable 10/21/21 16:45 Anusha Cells Not Reportable 10/21/21 16:45 Bite Cells Not Reportable 10/21/21 16:45 Crenated Cell Not Reportable 10/21/21 16:45 Elliptocytes Not Reportable 10/21/21 16:45 Acanthocytes (Spur) Not Reportable 10/21/21 16:45 Rouleaux Not Reportable 10/21/21 16:45 Hemoglobin C Crystals Not Reportable 10/21/21 16:45 Schistocytes Not Reportable 10/21/21 16:45 Malaria parasites Not Reportable 10/21/21 16:45 Flaco Bodies Not Reportable 10/21/21 16:45 Hem Pathologist Commnt No 10/21/21 16:45 PT 19.0 Sec. (12.2-14.9) H 10/14/21 04:05 INR 1.41 (0.87-1.13) H 10/14/21 04:05 APTT 33.9 Sec. (24.2-36.6) 10/14/21 04:05 D-Dimer > 85151 ng/mlDDU (0-234) H 10/28/21 15:15 ABG pH 7.509 pH Units (7.350-7.450) H 10/21/21 09:05 ABG pCO2 33.7 mm Hg 10/21/21 09:05 ABG pO2 60.3 mm Hg (80.0-90.0) L 10/21/21 09:05 ABG HCO3 26.2 mmol/L (20.0-26.0) H 10/21/21 09:05 ABG O2 Saturation 97.5 % (95.0-99.0) 10/21/21 09:05 ABG O2 Content 9.0 (0.0-44) 10/21/21 09:05 ABG Base Excess 3.0 mmol/L (-2.0-3.0) 10/21/21 09:05 ABG Hemoglobin 6.7 gm/dl (12.0-16.0) L 10/21/21 09:05 ABG Carboxyhemoglobin 1.8 % (0.0-5.0) 10/21/21 09:05 ABG Methemoglobin 0.4 % (0.0-1.5) 10/21/21 09:05 Oxyhemoglobin 95.3 % (95.0-99.0) 10/21/21 09:05 FiO2 28 % 10/21/21 09:05 Sodium 134 mmol/L (137-145) L D 10/28/21 07:15 Potassium 4.3 mmol/L (3.6-5.0) D 10/28/21 07:15 Chloride 97.6 mmol/L (98-107) L 10/28/21 07:15 Carbon Dioxide 24 mmol/L (22-30) D 10/28/21 07:15 Anion Gap 17 mmol/L 10/28/21 07:15 BUN 19 mg/dL (7-17) H 10/28/21 07:15 Creatinine 0.7 mg/dL (0.6-1.2) 10/28/21 Unknown Estimated GFR > 60 ml/min 10/28/21 Unknown BUN/Creatinine Ratio 27 % 10/28/21 07:15 Glucose 137 mg/dL (65-100) H 10/28/21 07:15 POC Glucose 163 mg/dL (70-105) H 10/28/21 16:26 Lactic Acid 1.80 mmol/L (0.7-2.0) 10/10/21 04:10 Calcium 8.4 mg/dL (8.4-10.2) 10/28/21 07:15 Phosphorus 4.00 mg/dL (2.5-4.5) D 10/28/21 07:15 Magnesium 1.80 mg/dL (1.7-2.3) 10/28/21 07:15 Ferritin 751.9 ng/mL (10.0-200.0) H 10/09/21 05:31 Total Bilirubin 0.20 mg/dL (0.1-1.2) 10/26/21 04:18 AST 71 units/L (5-40) H 10/26/21 04:18 ALT 91 units/L (7-56) H 10/26/21 04:18 Alkaline Phosphatase 97 units/L (35-129) 10/26/21 04:18 Lactate Dehydrogenase 472 units/L (91-180) H 10/09/21 05:31 Total Creatine Kinase 45 units/L (30-135) 10/13/21 04:05 Troponin T 0.013 ng/mL (0.00-0.029) 10/28/21 Unknown C-Reactive Protein 15.90 mg/dL (0.00-1.30) H 10/09/21 05:31 Total Protein 6.8 g/dL (6.3-8.2) 10/26/21 04:18 Albumin 2.3 g/dL (3.9-5) L 10/26/21 04:18 Albumin/Globulin Ratio 0.5 % 10/26/21 04:18 Triglycerides 196 mg/dL (2-149) H 10/26/21 04:18 Procalcitonin 12.98 ng/mL (<0.15) 10/09/21 05:31 Urine Color Yellow (Yellow) 10/18/21 11:40 Urine Turbidity Clear (Clear) 10/18/21 11:40 Urine pH 6.0 (5.0-7.0) 10/18/21 11:40 Ur Specific [place] 1.015 (1.003-1.030) 10/18/21 11:40 Urine Protein 30 mg/dl mg/dL (Negative) 10/18/21 11:40 Urine Glucose (UA) Trace mg/dL (Negative) 10/18/21 11:40 Urine Ketones Negative mg/dL (Negative) 10/18/21 11:40 Urine Blood Moderate (Negative) A 10/18/21 11:40 Urine Nitrite Negative (Negative) 10/18/21 11:40 Ur Reducing Substances Not Reportable 09/24/21 14:49 Urine Bilirubin Negative (Negative) 10/18/21 11:40 Urine Ictotest Not Reportable 09/24/21 14:49 Urine Urobilinogen 0.0 mg/dL (<2.0) 10/18/21 11:40 Ur Leukocyte Esterase Negative (Negative) 10/18/21 11:40 Urine WBC (Auto) 50.0 /HPF (0.0-6.0) H 10/18/21 11:40 Urine RBC (Auto) > 182.0 /HPF (0.0-6.0) 10/18/21 11:40 U Epithel Cells (Auto) 2.0 /HPF (0-13.0) 10/18/21 11:40 Urine Bacteria (Auto) 2+ /HPF (Negative) 10/18/21 11:40 Urine WBC Clumps 1+ /HPF 10/18/21 11:40 Hyaline Casts Few /LPF 10/18/21 11:40 Granular Casts Few /LPF 10/18/21 11:40 Urine Mucus 3+ /HPF 10/18/21 11:40 Urine HCG, Qual Negative (Negative) 09/24/21 14:49 Coronavirus (PCR) Negative (Negative) 10/09/21 10:15 Miscellaneous Test Flexitest 1 H 10/21/21 16:05 Blood Type A POSITIVE 10/28/21 12:20 Antibody Screen Negative 10/28/21 12:20 Crossmatch See Detail 10/28/21 12:20 Brantley/IV: Voiding Method External Female Catheter Active Medications - Current Medications Current Medications: Generic Name Dose Route Start Last Admin Trade Name Freq PRN Reason Stop Dose Admin Acetaminophen 975 mg 10/29/21 19:00 Acetaminophen 325 Mg Tab PO Q6H JAZ Albuterol 2.5 mg 09/24/21 18:07 Albuterol 2.5 Mg/3 Ml Nebu IH Q4HRT PRN Shortness Of Breath Alprazolam 1 mg 10/28/21 14:00 10/28/21 22:26 Alprazolam 1 Mg Tab PO 1 mg Q8HR JAZ Administration Buspirone HCl 10 mg 10/28/21 22:00 10/29/21 10:52 Buspirone 10 Mg Tab PO 10 mg BID JAZ Administration Dextrose 0 ml 10/03/21 12:37 Dextrose 10% *Hypoglycemia IV PRN PRN Hypoglycemia Diphenhydramine HCl 25 mg 10/04/21 15:14 10/28/21 22:26 Diphenhydramine 50 Mg/Ml Vial IV 25 mg Q6H PRN Administration Itching Heparin Sodium (Porcine) 5,000 unit 10/16/21 10:00 10/28/21 22:26 Heparin 5,000 Unit/1 Ml Vial SUB-Q 5,000 unit Q12HR JAZ Administration Hydromorphone HCl 0.5 mg 10/18/21 15:39 10/29/21 07:51 Hydromorphone 1 Mg/1 Ml Inj IV 0.5 mg Q3H PRN Administration Pain, Moderate (4-6) Hydrophilic Ointment 1 applic 10/08/21 21:00 10/24/21 12:50 Lip Therapy Vaseline TP 1 applic Q2HR PRN Administration Dry Lips Amino Acids/Electrolytes/Dextrose 1,999.92 mls @ 83.33 mls/hr 10/28/21 20:00 10/28/21 21:06 Tpn Adult IV 10/29/21 19:59 83.33 mls/hr DAILY@2000 JAZ Administration Protocol Acetaminophen 1,000 mg in 100 mls @ 400 mls/hr 10/28/21 13:00 10/29/21 00:10 Acetaminophen Iv IV 10/29/21 14:00 400 mls/hr Q6H JAZ Administration Sodium Chloride 1,000 mls @ 100 mls/hr 10/29/21 11:00 10/29/21 11:30 Nacl 0.45% 1000 Ml IV 100 mls/hr DIRECT JAZ Administration Insulin Glargine 5 units 10/13/21 10:00 10/29/21 11:03 Insulin Glargine 100 Units/Ml SUB-Q 5 units QDAY JAZ Administration Insulin Human Regular 0 units 10/10/21 00:00 10/28/21 18:29 Insulin Regular, Human 100 Units/1 Ml SUB-Q 3 units Q6HR JAZ Administration Protocol Lorazepam 2 mg 10/28/21 08:00 10/28/21 08:04 Lorazepam 2 Mg/Ml Vial IV 2 mg Q4H PRN Administration Agitation Multi-Ingred Cream/Lotion/Oil/Oint 1 applic 10/08/21 21:00 Mineral Oil/Petrolatum, White Ophth Oint 3.5 Gm OU Q4HR PRN Dry Eye(s) Naloxone HCl 0.1 mg 10/03/21 14:00 Naloxone 0.4 Mg/1 Ml Inj IV Q2MIN PRN Res Rate </= 8 or 02 SAT < 92% Ondansetron HCl 4 mg 09/24/21 18:07 10/27/21 22:02 Ondansetron 4 Mg/2 Ml Inj IV 4 mg Q8H PRN Administration Nausea And Vomiting Pantoprazole Sodium 40 mg 10/20/21 17:00 10/29/21 10:52 Pantoprazole 40 Mg Inj IV 40 mg QDAY JAZ Administration Phenol 1 spray 10/02/21 13:00 10/03/21 10:23 Phenol 1.4% 177 Ml Bottle MM 1 spray PRN PRN Administration Sore Throat Scopolamine 1 each 10/04/21 10:00 10/28/21 11:37 Scopolamine Transdermal Patch 72 Hr TD 1 each Q3D JAZ Administration Sodium Chloride 10 ml 09/24/21 22:00 10/29/21 10:52 Sodium Chloride 0.9% 10 Ml Flush Syringe IV 10 ml BID JAZ Administration Sodium Chloride 10 ml 09/24/21 18:07 09/25/21 08:34 Sodium Chloride 0.9% 10 Ml Flush Syringe IV 10 ml PRN PRN Administration LINE FLUSH Nutrition/Malnutrition Assess - Dietary Evaluation Nutrition/Malnutrition Findings: Nutrition Notes Start: 09/25/21 15:31 Freq: Status: Active Protocol: Document 10/28/21 11:37 BIN (Rec: 10/28/21 11:48 BIN [id number]) Nutrition Notes Initial or Follow up Reassessment Current Diagnosis Acute Kidney Injury,Sepsis Other Pertinent Diagnosis s/p appendectomy, s/p exp lap with colostomy, anemia, Anxiety. Current Diet CPN at 83.33 ml/hr Labs/Tests 10/28: Na 134, Cl 97.6, BUN 19 , Glu 137. Pertinent Medications 10/28: Insulin, others nutritionally unremarkable. Height 5 ft 7 in Weight 109 kg [place] Body Weight (kg) 61.36 BMI 37.6 Weight change and time frame No body weight change reported in 4 days. Weight Status Obese Subjective/Other Information Day 25 TPN. Pt continues on nasal cannula, according to [facility] notes. Pt still on CC1, tranfer to IMCU on hold. Pt presents persistent tachicardia, according to [facility] notes. Pt tolerating well ice chips and sips of water, with no N/V nor Abdominal Pain, according to [facility] notes. Pt produced 200 ml brown stool on colostomy bag, according to RN notes. TPN order duplicated due to no shift dietitian tomorrow, pharmacy notified. Percent of energy/protein needs met: 86% Kcal; 98% AA. Burn Absent Trauma Absent GI Symptoms Other Food Allergy No Skin Integrity/Comment Surgical wound Current % PO Other Minimum of two criteria No #1 Nutrition Diagnosis Altered GI function Diagnosis [facility](for reassessment Continues documentation) Is patient on ventilator? No Is Patient Ambulatory and/or Out of Bed No REE-([facility]-confined to bed) 2200.920 Kcal/Kg value to use for calculation 16 Approximate Energy Requirements Using 1744 kcal/Kg Calculation Used for Recommendations Kcal/kg Additional Notes Protein: 2 g/Kg; 123 g/day IBW . Fluids: 1 mL/Kcal, or as per MD. Nutrition Intervention Nutrition Support: Continue CPN at 83.33ml/hr: Osmolality: 1620. Na 200 mEq. 50/50 % Cl to CO2 ratio. MVI 10 ml. Trace Elements 1 ml. Kcal 1,500 Protein (gm) 120 Carbohydrates (gm) 300 Fat (gm) 0 Fluid (mL) 2,000 Fiber (gm) 0 % RDI: 86% Kcal; 98% AA. Goal #1 Provide at least 75% of energy /protein needs through Parenteral Feeding during LOS. Goal #2 Maintain body weight within +/ -3% of admission body weight during LOS. Follow-Up By: 10/30/21 Additional Comments Continue monitoring CPN tolerance and BM. BMP, Phos, and Mg labs ordered .
--- NOTE | 2021-10-29 12:31 | Progress Note ---
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 Open left hemicolectomy and partial omentectomy Peritonitis Leukocytosis Diverticulitis with absces Acute renal failure Acute blood loss anemia Gross Hematuria - to transfer to [facility] for CTSU evaluation - anti-hypertensives held - agree with gentle volume infusion re: tamponade physiology issues - watch for pulmonary edema (on room air now) - discussed with cardiology & surgery teams - continue care as below otherwise; - continue TPN - advance oral diet per surgery - prn anxiolytics - wound care per RN / WCN under surgeons direction - continue to wean supplemental oxygen for target O2 sat's > 90% acutely - aspiration precautions - prn bronchodilators with pulmonary hygiene per RT - avoid nephrotoxins, renally dose all medications - continue accuchecks with glycemic control per SSI (While critically ill target blood glucose of 140-180 mg/dL; avoid hypoglycemia) - avoid benzodiazepine's, reduce the possibility of delirium - AB's per ID rec's (s/p Diflucan & Flagyl) - Maintenance of sleep-wake cycle, avoid delirium - continue enteral nutritional support at goal rate as tolerated - G.I. & VTE prophylaxis - PT/OT/ROM exercises - continue mobility protocols for pressure ulcer prophylaxis - Monitor hemodynamics closely - continue other care per attending / other consultants - discharge planning ongoing concurrently COVID SPECIFIC INTERVENTIONS - COVID-19 PCR negative .... 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 s/p appendectomy; VRE infection; Open left hemicolectomy and partial omentectomy; Peritonitis; Diverticulitis with abscess;' BRYANNA; ABLA; Gross Hematuria Seen and examined at bedside; 24hour events reviewed; nursing and respiratory care staff consulted; no adverse overnight events reported to me; resting in bed; CT chest yesterday revealed large pericardial effusion but no clinical hypotension or Kussmaul's sign; tachycardia is a little better; 2D ECHO without tamponade hemodynamics; no N/V/F/C Objective Vital Signs - 12hr 10/29/21 10/29/21 10/29/21 00:31 00:45 01:01 Temperature Pulse Rate 122 H 127 H 127 H Pulse Rate [ Anterior Bilateral Throughout] Pulse Rate [ From Monitor] Respiratory 19 40 H 40 H Rate Respiratory Rate [Anterior Bilateral Throughout] Blood Pressure 148/92 134/104 134/104 O2 Sat by Pulse Oximetry 10/29/21 10/29/21 10/29/21 01:15 01:31 02:03 Temperature Pulse Rate 129 H 128 H 119 H Pulse Rate [ Anterior Bilateral Throughout] Pulse Rate [ From Monitor] Respiratory 46 H 36 H 18 Rate Respiratory Rate [Anterior Bilateral Throughout] Blood Pressure 134/104 134/104 134/104 O2 Sat by Pulse Oximetry 10/29/21 10/29/21 10/29/21 02:15 02:31 02:45 Temperature Pulse Rate 127 H 122 H 118 H Pulse Rate [ Anterior Bilateral Throughout] Pulse Rate [ From Monitor] Respiratory 25 H 21 39 H Rate Respiratory Rate [Anterior Bilateral Throughout] Blood Pressure 137/111 137/111 137/111 O2 Sat by Pulse 95 84 Oximetry 10/29/21 10/29/21 10/29/21 03:01 03:15 03:31 Temperature Pulse Rate 118 H 111 H 114 H Pulse Rate [ Anterior Bilateral Throughout] Pulse Rate [ From Monitor] Respiratory 18 29 H 29 H Rate Respiratory Rate [Anterior Bilateral Throughout] Blood Pressure 107/76 107/76 107/76 O2 Sat by Pulse Oximetry 10/29/21 10/29/21 10/29/21 03:45 04:00 04:01 Temperature 97.7 F Pulse Rate 118 H 113 H 120 H Pulse Rate [ Anterior Bilateral Throughout] Pulse Rate [ 131 H From Monitor] Respiratory 21 12 Rate Respiratory Rate [Anterior Bilateral Throughout] Blood Pressure 107/76 107/76 O2 Sat by Pulse 96 99 97 Oximetry 10/29/21 10/29/21 10/29/21 04:15 04:31 04:45 Temperature Pulse Rate 118 H 121 H 127 H Pulse Rate [ Anterior Bilateral Throughout] Pulse Rate [ From Monitor] Respiratory 38 H 33 H 23 Rate Respiratory Rate [Anterior Bilateral Throughout] Blood Pressure 107/76 107/76 107/76 O2 Sat by Pulse 98 97 Oximetry 10/29/21 10/29/21 10/29/21 05:00 05:01 05:15 Temperature Pulse Rate 129 H 128 H Pulse Rate [ 80 Anterior Bilateral Throughout] Pulse Rate [ From Monitor] Respiratory 15 45 H Rate Respiratory 18 Rate [Anterior Bilateral Throughout] Blood Pressure 107/76 107/76 O2 Sat by Pulse Oximetry 10/29/21 10/29/21 10/29/21 05:31 05:45 06:01 Temperature Pulse Rate 133 H 131 H 134 H Pulse Rate [ Anterior Bilateral Throughout] Pulse Rate [ From Monitor] Respiratory 37 H 38 H 40 H Rate Respiratory Rate [Anterior Bilateral Throughout] Blood Pressure 107/76 107/76 107/76 O2 Sat by Pulse Oximetry 10/29/21 10/29/21 10/29/21 06:15 06:31 06:45 Temperature Pulse Rate 137 H 136 H 139 H Pulse Rate [ Anterior Bilateral Throughout] Pulse Rate [ From Monitor] Respiratory 18 44 H 25 H Rate Respiratory Rate [Anterior Bilateral Throughout] Blood Pressure 107/76 107/76 107/76 O2 Sat by Pulse 95 Oximetry 10/29/21 10/29/21 10/29/21 07:00 07:15 07:31 Temperature Pulse Rate 137 H 133 H 138 H Pulse Rate [ Anterior Bilateral Throughout] Pulse Rate [ From Monitor] Respiratory 28 H 32 H 46 H Rate Respiratory Rate [Anterior Bilateral Throughout] Blood Pressure 142/107 142/107 142/107 O2 Sat by Pulse 97 99 98 Oximetry 10/29/21 10/29/21 10/29/21 07:45 08:00 08:16 Temperature 98.7 F Pulse Rate 135 H 130 H 120 H Pulse Rate [ Anterior Bilateral Throughout] Pulse Rate [ 120 H From Monitor] Respiratory 30 H 37 H 33 H Rate Respiratory Rate [Anterior Bilateral Throughout] Blood Pressure 142/107 137/115 132/99 O2 Sat by Pulse 98 97 97 Oximetry 10/29/21 10/29/21 10/29/21 08:30 08:46 09:00 Temperature Pulse Rate 121 H Pulse Rate [ Anterior Bilateral Throughout] Pulse Rate [ From Monitor] Respiratory 30 H 30 H 24 Rate Respiratory Rate [Anterior Bilateral Throughout] Blood Pressure 132/99 119/80 119/80 O2 Sat by Pulse 98 98 Oximetry 10/29/21 10/29/21 10/29/21 09:16 09:30 09:46 Temperature Pulse Rate 132 H 128 H Pulse Rate [ Anterior Bilateral Throughout] Pulse Rate [ From Monitor] Respiratory 34 H 38 H 23 Rate Respiratory Rate [Anterior Bilateral Throughout] Blood Pressure 127/98 129/97 129/97 O2 Sat by Pulse 99 99 99 Oximetry 10/29/21 10/29/21 10/29/21 10:00 10:16 10:30 Temperature Pulse Rate 130 H 134 H 135 H Pulse Rate [ Anterior Bilateral Throughout] Pulse Rate [ From Monitor] Respiratory 36 H 26 H 32 H Rate Respiratory Rate [Anterior Bilateral Throughout] Blood Pressure 129/97 133/97 133/97 O2 Sat by Pulse 99 99 98 Oximetry 10/29/21 10/29/21 10/29/21 10:46 11:00 11:16 Temperature Pulse Rate 138 H 141 H Pulse Rate [ Anterior Bilateral Throughout] Pulse Rate [ From Monitor] Respiratory 41 H 36 H 42 H Rate Respiratory Rate [Anterior Bilateral Throughout] Blood Pressure 133/97 140/105 132/99 O2 Sat by Pulse 99 99 98 Oximetry 10/29/21 10/29/21 11:30 11:46 Temperature Pulse Rate 140 H 135 H Pulse Rate [ Anterior Bilateral Throughout] Pulse Rate [ From Monitor] Respiratory 45 H 39 H Rate Respiratory Rate [Anterior Bilateral Throughout] Blood Pressure 132/99 132/99 O2 Sat by Pulse 97 98 Oximetry Constitutional: no acute distress, other (young obese female with normal respiratory effort at rest) Eyes: non-icteric ENT: oropharynx moist Neck: supple, no JVD, other (large circumference) Effort: normal Ascultation: Bilateral: diminished breath sounds, rhonchi Percussion: Bilateral: not dull Cardiovascular: regular rate and rhythm, other (S1,S2) Gastrointestinal: hypoactive bowel sounds, soft, non-tender, other (YURIDIA drains, colostomy) Integumentary: normal, other (post-op changes) Extremities: no cyanosis, pulses normal, no ischemia or petechiae, edema Neurologic: non-focal exam, pupils equal and round, CN II-XII normal, motor strength normal and Psychiatric: other (somnolent / sleepy) CBC and BMP: 10/29/21 Unknown 10/28/21 Unknown ABG, PT/INR, D-dimer: ABG ABG pH 7.509 pH Units (7.350-7.450) H 10/21/21 09:05 ABG pCO2 33.7 mm Hg 10/21/21 09:05 ABG pO2 60.3 mm Hg (80.0-90.0) L 10/21/21 09:05 ABG O2 Saturation 97.5 % (95.0-99.0) 10/21/21 09:05 PT/INR, D-dimer PT 19.0 Sec. (12.2-14.9) H 10/14/21 04:05 INR 1.41 (0.87-1.13) H 10/14/21 04:05 D-Dimer > 85662 ng/mlDDU (0-234) H 10/28/21 15:15 Abnormal lab findings: Abnormal Labs 09/24/21 09/24/21 09/24/21 14:49 14:58 14:58 WBC 32.4 H RBC Hgb Hct MCV MCH MCHC RDW Plt Count 535 H Lymph % (Auto) [place] % (Auto) Lymph # (Auto) [place] # (Auto) Seg Neutrophils % Seg Neuts % (Manual) 82.0 H Lymphocytes % (Manual) 2.0 L Monocytes % (Manual) Nucleated RBC % Seg Neutrophils # Seg Neutrophils # Man 26.6 H Lymphocytes # (Manual) 0.6 L Monocytes # (Manual) 1.6 H PT INR D-Dimer ABG pH ABG pO2 ABG HCO3 ABG O2 Saturation ABG Base Excess ABG Hemoglobin Oxyhemoglobin Sodium 134 L Potassium 3.5 L Chloride 97.6 L Carbon Dioxide BUN Creatinine Glucose 119 H POC Glucose Lactic Acid Calcium Phosphorus Magnesium Ferritin AST ALT Lactate Dehydrogenase Total Creatine Kinase C-Reactive Protein Total Protein 6.1 L Albumin 3.3 L Triglycerides Urine Blood Urine WBC (Auto) U Epithel Cells (Auto) 18.0 H Miscellaneous Test Crossmatch 09/25/21 09/25/21 09/26/21 05:47 05:47 04:20 WBC 25.4 H 23.6 H RBC 3.54 L Hgb Hct MCV MCH MCHC RDW Plt Count 466 H 486 H Lymph % (Auto) [place] % (Auto) Lymph # (Auto) [place] # (Auto) Seg Neutrophils % Seg Neuts % (Manual) 93.0 H 86.0 H Lymphocytes % (Manual) 4.0 L 3.0 L Monocytes % (Manual) Nucleated RBC % Seg Neutrophils # Seg Neutrophils # Man 23.6 H 20.3 H Lymphocytes # (Manual) 1.0 L 0.7 L Monocytes # (Manual) 0.9 H PT INR D-Dimer ABG pH ABG pO2 ABG HCO3 ABG O2 Saturation ABG Base Excess ABG Hemoglobin Oxyhemoglobin Sodium 136 L Potassium 3.0 L Chloride Carbon Dioxide 21 L BUN Creatinine Glucose POC Glucose Lactic Acid Calcium 7.8 L Phosphorus Magnesium Ferritin AST ALT Lactate Dehydrogenase Total Creatine Kinase C-Reactive Protein Total Protein Albumin Triglycerides Urine Blood Urine WBC (Auto) U Epithel Cells (Auto) Miscellaneous Test Crossmatch 09/26/21 09/27/21 09/27/21 04:20 08:28 08:28 WBC 20.6 H RBC 3.42 L Hgb 9.9 L Hct 29.5 L D MCV MCH MCHC RDW Plt Count Lymph % (Auto) [place] % (Auto) Lymph # (Auto) [place] # (Auto) Seg Neutrophils % Seg Neuts % (Manual) 94.1 H Lymphocytes % (Manual) 1.0 L Monocytes % (Manual) Nucleated RBC % Seg Neutrophils # Seg Neutrophils # Man 19.4 H Lymphocytes # (Manual) 0.2 L Monocytes # (Manual) PT INR D-Dimer ABG pH ABG pO2 ABG HCO3 ABG O2 Saturation ABG Base Excess ABG Hemoglobin Oxyhemoglobin Sodium Potassium 3.2 L Chloride Carbon Dioxide 20 L BUN Creatinine Glucose 137 H POC Glucose Lactic Acid Calcium 8.3 L 8.2 L Phosphorus Magnesium Ferritin AST ALT Lactate Dehydrogenase Total Creatine Kinase C-Reactive Protein Total Protein Albumin Triglycerides Urine Blood Urine WBC (Auto) U Epithel Cells (Auto) Miscellaneous Test Crossmatch 09/28/21 09/28/21 09/29/21 04:55 15:35 07:02 WBC 15.1 H 16.5 H RBC 3.34 L 3.20 L Hgb 9.3 L 9.1 L Hct 28.7 L 27.3 L MCV MCH MCHC RDW 15.3 H Plt Count 444 H 469 H Lymph % (Auto) [place] % (Auto) Lymph # (Auto) [place] # (Auto) 0.9 H Seg Neutrophils % 89.3 H Seg Neuts % (Manual) 88.0 H 80.0 H Lymphocytes % (Manual) 9.0 L 8.0 L Monocytes % (Manual) Nucleated RBC % Seg Neutrophils # 14.0 H Seg Neutrophils # Man 13.3 H 13.2 H Lymphocytes # (Manual) Monocytes # (Manual) PT INR D-Dimer ABG pH ABG pO2 ABG HCO3 ABG O2 Saturation ABG Base Excess ABG Hemoglobin Oxyhemoglobin Sodium Potassium 3.3 L Chloride 109.4 H Carbon Dioxide 20 L BUN Creatinine 0.5 L Glucose POC Glucose Lactic Acid Calcium 7.9 L Phosphorus Magnesium Ferritin AST ALT Lactate Dehydrogenase Total Creatine Kinase C-Reactive Protein Total Protein Albumin Triglycerides Urine Blood Urine WBC (Auto) U Epithel Cells (Auto) Miscellaneous Test Crossmatch 09/30/21 09/30/21 10/01/21 05:40 05:40 07:49 WBC 17.4 H 17.9 H RBC 3.37 L 3.32 L Hgb 9.2 L 9.3 L Hct 28.4 L 28.3 L MCV MCH 27 L MCHC RDW 15.4 H 15.5 H Plt Count 530 H 604 H Lymph % (Auto) [place] % (Auto) Lymph # (Auto) [place] # (Auto) Seg Neutrophils % Seg Neuts % (Manual) 91.0 H 72.0 H Lymphocytes % (Manual) 9.0 L 1.0 L Monocytes % (Manual) 8.0 H Nucleated RBC % 1.0 H Seg Neutrophils # Seg Neutrophils # Man 15.8 H 12.9 H Lymphocytes # (Manual) 0.2 L Monocytes # (Manual) 1.4 H PT INR D-Dimer ABG pH ABG pO2 ABG HCO3 ABG O2 Saturation ABG Base Excess ABG Hemoglobin Oxyhemoglobin Sodium Potassium 3.5 L Chloride Carbon Dioxide 21 L BUN Creatinine 0.5 L Glucose POC Glucose Lactic Acid Calcium 8.0 L Phosphorus Magnesium Ferritin AST ALT Lactate Dehydrogenase Total Creatine Kinase C-Reactive Protein Total Protein Albumin Triglycerides Urine Blood Urine WBC (Auto) U Epithel Cells (Auto) Miscellaneous Test Crossmatch 10/01/21 10/01/21 10/02/21 07:49 10:45 05:41 WBC 23.2 H RBC 2.90 L Hgb 7.9 L Hct 24.8 L MCV MCH 27 L MCHC RDW 15.3 H Plt Count 621 H Lymph % (Auto) [place] % (Auto) Lymph # (Auto) [place] # (Auto) Seg Neutrophils % Seg Neuts % (Manual) 88.0 H Lymphocytes % (Manual) 2.0 L Monocytes % (Manual) Nucleated RBC % Seg Neutrophils # Seg Neutrophils # Man 20.4 H Lymphocytes # (Manual) 0.5 L Monocytes # (Manual) 1.4 H PT INR D-Dimer ABG pH ABG pO2 ABG HCO3 ABG O2 Saturation ABG Base Excess ABG Hemoglobin Oxyhemoglobin Sodium Potassium Chloride Carbon Dioxide 20 L BUN Creatinine 0.5 L Glucose POC Glucose Lactic Acid Calcium 7.6 L Phosphorus Magnesium Ferritin AST ALT Lactate Dehydrogenase Total Creatine Kinase C-Reactive Protein Total Protein Albumin Triglycerides Urine Blood Urine WBC (Auto) U Epithel Cells (Auto) Miscellaneous Test Crossmatch See Detail 10/02/21 10/02/21 10/02/21 05:41 07:47 11:10 WBC RBC Hgb Hct MCV MCH MCHC RDW Plt Count Lymph % (Auto) [place] % (Auto) Lymph # (Auto) [place] # (Auto) Seg Neutrophils % Seg Neuts % (Manual) Lymphocytes % (Manual) Monocytes % (Manual) Nucleated RBC % Seg Neutrophils # Seg Neutrophils # Man Lymphocytes # (Manual) Monocytes # (Manual) PT INR D-Dimer ABG pH ABG pO2 ABG HCO3 ABG O2 Saturation ABG Base Excess ABG Hemoglobin Oxyhemoglobin Sodium Potassium Chloride Carbon Dioxide BUN Creatinine Glucose 130 H POC Glucose 145 H 120 H Lactic Acid Calcium 6.9 L Phosphorus Magnesium Ferritin AST ALT Lactate Dehydrogenase Total Creatine Kinase C-Reactive Protein Total Protein Albumin Triglycerides Urine Blood Urine WBC (Auto) U Epithel Cells (Auto) Miscellaneous Test Crossmatch 10/02/21 10/03/21 10/03/21 16:14 04:55 04:55 WBC 26.1 H RBC 2.31 L Hgb 6.3 L Hct 19.8 L* MCV MCH MCHC RDW 15.9 H Plt Count 598 H Lymph % (Auto) [place] % (Auto) Lymph # (Auto) [place] # (Auto) Seg Neutrophils % Seg Neuts % (Manual) 82.0 H Lymphocytes % (Manual) 1.0 L Monocytes % (Manual) 10.0 H Nucleated RBC % Seg Neutrophils # Seg Neutrophils # Man 21.4 H Lymphocytes # (Manual) 0.3 L Monocytes # (Manual) 2.6 H PT INR D-Dimer ABG pH ABG pO2 ABG HCO3 ABG O2 Saturation ABG Base Excess ABG Hemoglobin Oxyhemoglobin Sodium Potassium Chloride Carbon Dioxide BUN 22 H Creatinine 1.7 H D Glucose 145 H POC Glucose 109 H Lactic Acid Calcium 6.4 L Phosphorus Magnesium 2.40 H Ferritin AST ALT Lactate Dehydrogenase Total Creatine Kinase C-Reactive Protein Total Protein 4.2 L Albumin 1.6 L Triglycerides Urine Blood Urine WBC (Auto) U Epithel Cells (Auto) Miscellaneous Test Crossmatch 10/03/21 10/03/21 10/03/21 07:15 11:49 17:06 WBC RBC Hgb Hct MCV MCH MCHC RDW Plt Count Lymph % (Auto) [place] % (Auto) Lymph # (Auto) [place] # (Auto) Seg Neutrophils % Seg Neuts % (Manual) Lymphocytes % (Manual) Monocytes % (Manual) Nucleated RBC % Seg Neutrophils # Seg Neutrophils # Man Lymphocytes # (Manual) Monocytes # (Manual) PT INR D-Dimer ABG pH ABG pO2 ABG HCO3 ABG O2 Saturation ABG Base Excess ABG Hemoglobin Oxyhemoglobin Sodium Potassium Chloride Carbon Dioxide BUN Creatinine Glucose POC Glucose 162 H 171 H 174 H Lactic Acid Calcium Phosphorus Magnesium Ferritin AST ALT Lactate Dehydrogenase Total Creatine Kinase C-Reactive Protein Total Protein Albumin Triglycerides Urine Blood Urine WBC (Auto) U Epithel Cells (Auto) Miscellaneous Test Crossmatch 10/03/21 10/04/21 10/04/21 23:31 04:44 04:44 WBC 26.4 H RBC 2.33 L Hgb 6.6 L Hct 19.4 L* MCV MCH MCHC RDW 16.1 H Plt Count 602 H Lymph % (Auto) [place] % (Auto) Lymph # (Auto) [place] # (Auto) Seg Neutrophils % Seg Neuts % (Manual) 80.0 H Lymphocytes % (Manual) 5.0 L Monocytes % (Manual) Nucleated RBC % Seg Neutrophils # Seg Neutrophils # Man 21.1 H Lymphocytes # (Manual) Monocytes # (Manual) 1.8 H PT INR D-Dimer ABG pH ABG pO2 ABG HCO3 ABG O2 Saturation ABG Base Excess ABG Hemoglobin Oxyhemoglobin Sodium 135 L Potassium 3.4 L Chloride Carbon Dioxide 21 L BUN 28 H Creatinine 2.0 H Glucose 171 H POC Glucose 179 H Lactic Acid Calcium 6.7 L Phosphorus 1.30 L D Magnesium 2.40 H Ferritin AST ALT Lactate Dehydrogenase Total Creatine Kinase C-Reactive Protein Total Protein Albumin Triglycerides Urine Blood Urine WBC (Auto) U Epithel Cells (Auto) Miscellaneous Test Crossmatch 10/04/21 10/04/21 10/04/21 05:25 12:01 13:30 WBC RBC Hgb Hct MCV MCH MCHC RDW Plt Count Lymph % (Auto) [place] % (Auto) Lymph # (Auto) [place] # (Auto) Seg Neutrophils % Seg Neuts % (Manual) Lymphocytes % (Manual) Monocytes % (Manual) Nucleated RBC % Seg Neutrophils # Seg Neutrophils # Man Lymphocytes # (Manual) Monocytes # (Manual) PT INR D-Dimer ABG pH ABG pO2 ABG HCO3 ABG O2 Saturation ABG Base Excess ABG Hemoglobin Oxyhemoglobin Sodium Potassium Chloride Carbon Dioxide BUN Creatinine Glucose POC Glucose 174 H 172 H Lactic Acid Calcium Phosphorus Magnesium Ferritin AST ALT Lactate Dehydrogenase Total Creatine Kinase C-Reactive Protein Total Protein Albumin Triglycerides Urine Blood Urine WBC (Auto) U Epithel Cells (Auto) Miscellaneous Test Crossmatch See Detail 10/04/21 10/04/21 10/04/21 16:47 20:28 22:23 WBC RBC Hgb 8.5 L Hct 25.1 L MCV MCH MCHC RDW Plt Count Lymph % (Auto) [place] % (Auto) Lymph # (Auto) [place] # (Auto) Seg Neutrophils % Seg Neuts % (Manual) Lymphocytes % (Manual) Monocytes % (Manual) Nucleated RBC % Seg Neutrophils # Seg Neutrophils # Man Lymphocytes # (Manual) Monocytes # (Manual) PT INR D-Dimer ABG pH ABG pO2 ABG HCO3 ABG O2 Saturation ABG Base Excess ABG Hemoglobin Oxyhemoglobin Sodium Potassium Chloride Carbon Dioxide BUN Creatinine Glucose POC Glucose 135 H 152 H Lactic Acid Calcium Phosphorus Magnesium Ferritin AST ALT Lactate Dehydrogenase Total Creatine Kinase C-Reactive Protein Total Protein Albumin Triglycerides Urine Blood Urine WBC (Auto) U Epithel Cells (Auto) Miscellaneous Test Crossmatch 10/05/21 10/05/21 10/05/21 04:40 04:40 04:40 WBC 24.7 H RBC 3.02 L Hgb 8.4 L Hct 25.5 L MCV MCH MCHC RDW 16.2 H Plt Count 644 H Lymph % (Auto) [place] % (Auto) Lymph # (Auto) [place] # (Auto) Seg Neutrophils % Seg Neuts % (Manual) 91.0 H Lymphocytes % (Manual) 7.0 L Monocytes % (Manual) Nucleated RBC % Seg Neutrophils # Seg Neutrophils # Man 22.5 H Lymphocytes # (Manual) Monocytes # (Manual) PT 17.8 H INR 1.31 H D-Dimer ABG pH ABG pO2 ABG HCO3 ABG O2 Saturation ABG Base Excess ABG Hemoglobin Oxyhemoglobin Sodium 135 L Potassium Chloride Carbon Dioxide BUN 29 H Creatinine 2.1 H Glucose 156 H POC Glucose Lactic Acid Calcium 7.6 L Phosphorus 1.90 L D Magnesium Ferritin AST ALT Lactate Dehydrogenase Total Creatine Kinase C-Reactive Protein Total Protein 5.2 L D Albumin 1.8 L Triglycerides Urine Blood Urine WBC (Auto) U Epithel Cells (Auto) Miscellaneous Test Crossmatch 10/05/21 10/05/21 10/05/21 05:08 18:17 23:37 WBC RBC Hgb Hct MCV MCH MCHC RDW Plt Count Lymph % (Auto) [place] % (Auto) Lymph # (Auto) [place] # (Auto) Seg Neutrophils % Seg Neuts % (Manual) Lymphocytes % (Manual) Monocytes % (Manual) Nucleated RBC % Seg Neutrophils # Seg Neutrophils # Man Lymphocytes # (Manual) Monocytes # (Manual) PT INR D-Dimer ABG pH ABG pO2 ABG HCO3 ABG O2 Saturation ABG Base Excess ABG Hemoglobin Oxyhemoglobin Sodium Potassium Chloride Carbon Dioxide BUN Creatinine Glucose POC Glucose 156 H 119 H 130 H Lactic Acid Calcium Phosphorus Magnesium Ferritin AST ALT Lactate Dehydrogenase Total Creatine Kinase C-Reactive Protein Total Protein Albumin Triglycerides Urine Blood Urine WBC (Auto) U Epithel Cells (Auto) Miscellaneous Test Crossmatch 10/06/21 10/06/21 10/06/21 04:27 05:27 05:27 WBC 23.4 H RBC 2.84 L Hgb 7.8 L Hct 23.9 L MCV MCH MCHC RDW 16.2 H Plt Count 712 H Lymph % (Auto) [place] % (Auto) Lymph # (Auto) [place] # (Auto) Seg Neutrophils % Seg Neuts % (Manual) Lymphocytes % (Manual) Monocytes % (Manual) Nucleated RBC % Seg Neutrophils # Seg Neutrophils # Man Lymphocytes # (Manual) Monocytes # (Manual) PT INR D-Dimer ABG pH ABG pO2 ABG HCO3 ABG O2 Saturation ABG Base Excess ABG Hemoglobin Oxyhemoglobin Sodium 134 L Potassium Chloride Carbon Dioxide 20 L BUN 28 H Creatinine 1.9 H Glucose 132 H POC Glucose 132 H Lactic Acid Calcium 7.8 L Phosphorus Magnesium Ferritin AST ALT Lactate Dehydrogenase Total Creatine Kinase 242 H C-Reactive Protein Total Protein Albumin Triglycerides Urine Blood Urine WBC (Auto) U Epithel Cells (Auto) Miscellaneous Test Crossmatch 10/06/21 10/06/2122 16:40 20:50 23:39 WBC RBC Hgb Hct MCV MCH MCHC RDW Plt Count Lymph % (Auto) [place] % (Auto) Lymph # (Auto) [place] # (Auto) Seg Neutrophils % Seg Neuts % (Manual) Lymphocytes % (Manual) Monocytes % (Manual) Nucleated RBC % Seg Neutrophils # Seg Neutrophils # Man Lymphocytes # (Manual) Monocytes # (Manual) PT INR D-Dimer ABG pH ABG pO2 ABG HCO3 ABG O2 Saturation ABG Base Excess ABG Hemoglobin Oxyhemoglobin Sodium Potassium Chloride Carbon Dioxide BUN Creatinine Glucose POC Glucose 133 H 116 H 132 H Lactic Acid Calcium Phosphorus Magnesium Ferritin AST ALT Lactate Dehydrogenase Total Creatine Kinase C-Reactive Protein Total Protein Albumin Triglycerides Urine Blood Urine WBC (Auto) U Epithel Cells (Auto) Miscellaneous Test Crossmatch 10/07/21 10/07/21 10/07/21 05:09 05:13 09:43 WBC 22.3 H RBC 2.81 L Hgb 7.8 L Hct 24.0 L MCV MCH MCHC RDW 16.5 H Plt Count 733 H Lymph % (Auto) [place] % (Auto) Lymph # (Auto) [place] # (Auto) Seg Neutrophils % Seg Neuts % (Manual) 85.0 H Lymphocytes % (Manual) 1.0 L Monocytes % (Manual) Nucleated RBC % Seg Neutrophils # Seg Neutrophils # Man 19.0 H Lymphocytes # (Manual) 0.2 L Monocytes # (Manual) 1.6 H PT INR D-Dimer ABG pH ABG pO2 ABG HCO3 ABG O2 Saturation ABG Base Excess ABG Hemoglobin Oxyhemoglobin Sodium 136 L Potassium Chloride Carbon Dioxide 20 L BUN 29 H Creatinine 1.9 H Glucose 140 H POC Glucose 139 H Lactic Acid Calcium 7.6 L Phosphorus Magnesium Ferritin AST ALT Lactate Dehydrogenase Total Creatine Kinase C-Reactive Protein Total Protein Albumin Triglycerides Urine Blood Urine WBC (Auto) U Epithel Cells (Auto) Miscellaneous Test Crossmatch 10/07/21 10/07/21 10/08/21 11:38 17:44 00:20 WBC RBC Hgb Hct MCV MCH MCHC RDW Plt Count Lymph % (Auto) [place] % (Auto) Lymph # (Auto) [place] # (Auto) Seg Neutrophils % Seg Neuts % (Manual) Lymphocytes % (Manual) Monocytes % (Manual) Nucleated RBC % Seg Neutrophils # Seg Neutrophils # Man Lymphocytes # (Manual) Monocytes # (Manual) PT INR D-Dimer ABG pH ABG pO2 ABG HCO3 ABG O2 Saturation ABG Base Excess ABG Hemoglobin Oxyhemoglobin Sodium Potassium Chloride Carbon Dioxide BUN Creatinine Glucose POC Glucose 126 H 113 H 129 H Lactic Acid Calcium Phosphorus Magnesium Ferritin AST ALT Lactate Dehydrogenase Total Creatine Kinase C-Reactive Protein Total Protein Albumin Triglycerides Urine Blood Urine WBC (Auto) U Epithel Cells (Auto) Miscellaneous Test Crossmatch 10/08/21 10/08/21 10/08/21 05:26 05:26 05:29 WBC 21.8 H RBC 2.84 L Hgb 7.8 L Hct 24.1 L MCV MCH 27 L MCHC RDW 16.5 H Plt Count 789 H Lymph % (Auto) [place] % (Auto) Lymph # (Auto) [place] # (Auto) Seg Neutrophils % Seg Neuts % (Manual) Lymphocytes % (Manual) Monocytes % (Manual) Nucleated RBC % Seg Neutrophils # Seg Neutrophils # Man Lymphocytes # (Manual) Monocytes # (Manual) PT INR D-Dimer ABG pH ABG pO2 ABG HCO3 ABG O2 Saturation ABG Base Excess ABG Hemoglobin Oxyhemoglobin Sodium 136 L Potassium Chloride Carbon Dioxide 20 L BUN 31 H Creatinine 1.7 H Glucose 134 H POC Glucose 123 H Lactic Acid Calcium 7.9 L Phosphorus 4.60 H D Magnesium Ferritin AST ALT Lactate Dehydrogenase Total Creatine Kinase C-Reactive Protein Total Protein Albumin Triglycerides Urine Blood Urine WBC (Auto) U Epithel Cells (Auto) Miscellaneous Test Crossmatch 10/08/21 10/08/21 10/08/21 11:53 17:07 20:08 WBC RBC Hgb Hct MCV MCH MCHC RDW Plt Count Lymph % (Auto) [place] % (Auto) Lymph # (Auto) [place] # (Auto) Seg Neutrophils % Seg Neuts % (Manual) Lymphocytes % (Manual) Monocytes % (Manual) Nucleated RBC % Seg Neutrophils # Seg Neutrophils # Man Lymphocytes # (Manual) Monocytes # (Manual) PT INR D-Dimer ABG pH 7.308 L ABG pO2 40.2 L ABG HCO3 15.7 L ABG O2 Saturation 68 L ABG Base Excess -9.6 L ABG Hemoglobin 9.7 L Oxyhemoglobin 67.8 L Sodium Potassium Chloride Carbon Dioxide BUN Creatinine Glucose POC Glucose 128 H 139 H Lactic Acid Calcium Phosphorus Magnesium Ferritin AST ALT Lactate Dehydrogenase Total Creatine Kinase C-Reactive Protein Total Protein Albumin Triglycerides Urine Blood Urine WBC (Auto) U Epithel Cells (Auto) Miscellaneous Test Crossmatch 10/08/21 10/08/21 10/08/21 21:30 22:55 22:55 WBC RBC Hgb Hct MCV MCH MCHC RDW Plt Count Lymph % (Auto) [place] % (Auto) Lymph # (Auto) [place] # (Auto) Seg Neutrophils % Seg Neuts % (Manual) Lymphocytes % (Manual) Monocytes % (Manual) Nucleated RBC % Seg Neutrophils # Seg Neutrophils # Man Lymphocytes # (Manual) Monocytes # (Manual) PT INR D-Dimer ABG pH ABG pO2 43.8 L ABG HCO3 19.5 L ABG O2 Saturation 70.7 L ABG Base Excess -5.3 L ABG Hemoglobin 8.6 L Oxyhemoglobin 69.4 L Sodium Potassium Chloride Carbon Dioxide BUN Creatinine Glucose POC Glucose Lactic Acid 2.50 H* Calcium Phosphorus Magnesium Ferritin AST ALT Lactate Dehydrogenase Total Creatine Kinase C-Reactive Protein Total Protein Albumin Triglycerides Urine Blood Urine WBC (Auto) U Epithel Cells (Auto) Miscellaneous Test Crossmatch See Detail 10/09/21 10/09/21 10/09/21 03:12 05:31 05:31 WBC 20.3 H RBC 2.70 L Hgb 7.4 L Hct 23.1 L MCV MCH 27 L MCHC RDW 16.6 H Plt Count 786 H Lymph % (Auto) [place] % (Auto) Lymph # (Auto) [place] # (Auto) Seg Neutrophils % Seg Neuts % (Manual) 88.0 H Lymphocytes % (Manual) 3.0 L Monocytes % (Manual) Nucleated RBC % Seg Neutrophils # Seg Neutrophils # Man 17.9 H Lymphocytes # (Manual) 0.6 L Monocytes # (Manual) 1.2 H PT INR D-Dimer ABG pH ABG pO2 ABG HCO3 ABG O2 Saturation ABG Base Excess ABG Hemoglobin Oxyhemoglobin Sodium 136 L Potassium Chloride Carbon Dioxide 20 L BUN 32 H Creatinine 1.5 H Glucose 214 H POC Glucose 190 H Lactic Acid Calcium 7.5 L Phosphorus Magnesium Ferritin AST ALT Lactate Dehydrogenase Total Creatine Kinase C-Reactive Protein Total Protein 5.8 L Albumin 2.3 L Triglycerides Urine Blood Urine WBC (Auto) U Epithel Cells (Auto) Miscellaneous Test Crossmatch 10/09/21 10/09/21 10/09/21 05:31 05:31 05:31 WBC RBC Hgb Hct MCV MCH MCHC RDW Plt Count Lymph % (Auto) [place] % (Auto) Lymph # (Auto) [place] # (Auto) Seg Neutrophils % Seg Neuts % (Manual) Lymphocytes % (Manual) Monocytes % (Manual) Nucleated RBC % Seg Neutrophils # Seg Neutrophils # Man Lymphocytes # (Manual) Monocytes # (Manual) PT INR D-Dimer ABG pH ABG pO2 ABG HCO3 ABG O2 Saturation ABG Base Excess ABG Hemoglobin Oxyhemoglobin Sodium Potassium Chloride Carbon Dioxide BUN Creatinine Glucose POC Glucose Lactic Acid 2.20 H* Calcium Phosphorus Magnesium Ferritin 751.9 H AST ALT Lactate Dehydrogenase Total Creatine Kinase C-Reactive Protein 15.90 H Total Protein Albumin Triglycerides Urine Blood Urine WBC (Auto) U Epithel Cells (Auto) Miscellaneous Test Crossmatch 10/09/21 10/09/21 10/09/21 05:31 08:45 12:08 WBC RBC Hgb Hct MCV MCH MCHC RDW Plt Count Lymph % (Auto) [place] % (Auto) Lymph # (Auto) [place] # (Auto) Seg Neutrophils % Seg Neuts % (Manual) Lymphocytes % (Manual) Monocytes % (Manual) Nucleated RBC % Seg Neutrophils # Seg Neutrophils # Man Lymphocytes # (Manual) Monocytes # (Manual) PT INR D-Dimer > 66496 H ABG pH ABG pO2 54.3 L ABG HCO3 ABG O2 Saturation 86.6 L ABG Base Excess -2.6 L ABG Hemoglobin 7.2 L Oxyhemoglobin 85.3 L Sodium Potassium Chloride Carbon Dioxide BUN Creatinine Glucose POC Glucose Lactic Acid Calcium Phosphorus Magnesium Ferritin AST ALT Lactate Dehydrogenase 472 H Total Creatine Kinase C-Reactive Protein Total Protein Albumin Triglycerides Urine Blood Urine WBC (Auto) U Epithel Cells (Auto) Miscellaneous Test Crossmatch 10/09/21 10/09/21 10/10/21 12:19 17:43 00:30 WBC RBC Hgb Hct MCV MCH MCHC RDW Plt Count Lymph % (Auto) [place] % (Auto) Lymph # (Auto) [place] # (Auto) Seg Neutrophils % Seg Neuts % (Manual) Lymphocytes % (Manual) Monocytes % (Manual) Nucleated RBC % Seg Neutrophils # Seg Neutrophils # Man Lymphocytes # (Manual) Monocytes # (Manual) PT INR D-Dimer ABG pH ABG pO2 ABG HCO3 ABG O2 Saturation ABG Base Excess ABG Hemoglobin Oxyhemoglobin Sodium Potassium Chloride Carbon Dioxide BUN Creatinine Glucose POC Glucose 151 H 136 H 132 H Lactic Acid Calcium Phosphorus Magnesium Ferritin AST ALT Lactate Dehydrogenase Total Creatine Kinase C-Reactive Protein Total Protein Albumin Triglycerides Urine Blood Urine WBC (Auto) U Epithel Cells (Auto) Miscellaneous Test Crossmatch 10/10/21 10/10/21 10/10/21 04:10 04:10 05:41 WBC 20.8 H RBC 2.54 L Hgb 7.1 L Hct 21.8 L MCV MCH MCHC RDW 16.6 H Plt Count 740 H Lymph % (Auto) [place] % (Auto) Lymph # (Auto) [place] # (Auto) Seg Neutrophils % Seg Neuts % (Manual) Lymphocytes % (Manual) Monocytes % (Manual) Nucleated RBC % Seg Neutrophils # Seg Neutrophils # Man Lymphocytes # (Manual) Monocytes # (Manual) PT INR D-Dimer ABG pH ABG pO2 ABG HCO3 ABG O2 Saturation ABG Base Excess ABG Hemoglobin Oxyhemoglobin Sodium 130 L Potassium Chloride 97.9 L Carbon Dioxide 19 L BUN 37 H Creatinine 1.4 H Glucose 181 H POC Glucose 150 H Lactic Acid Calcium 7.8 L Phosphorus Magnesium Ferritin AST ALT Lactate Dehydrogenase Total Creatine Kinase C-Reactive Protein Total Protein Albumin Triglycerides Urine Blood Urine WBC (Auto) U Epithel Cells (Auto) Miscellaneous Test Crossmatch 10/10/21 10/10/21 10/10/21 11:10 16:00 23:50 WBC RBC Hgb Hct MCV MCH MCHC RDW Plt Count Lymph % (Auto) [place] % (Auto) Lymph # (Auto) [place] # (Auto) Seg Neutrophils % Seg Neuts % (Manual) Lymphocytes % (Manual) Monocytes % (Manual) Nucleated RBC % Seg Neutrophils # Seg Neutrophils # Man Lymphocytes # (Manual) Monocytes # (Manual) PT INR D-Dimer ABG pH ABG pO2 ABG HCO3 ABG O2 Saturation ABG Base Excess ABG Hemoglobin Oxyhemoglobin Sodium Potassium Chloride Carbon Dioxide BUN Creatinine Glucose POC Glucose 136 H 151 H 129 H Lactic Acid Calcium Phosphorus Magnesium Ferritin AST ALT Lactate Dehydrogenase Total Creatine Kinase C-Reactive Protein Total Protein Albumin Triglycerides Urine Blood Urine WBC (Auto) U Epithel Cells (Auto) Miscellaneous Test Crossmatch 10/10/21 10/11/21 10/11/21 Unknown 03:30 03:30 WBC 23.2 H RBC 2.39 L Hgb 6.7 L Hct 20.3 L MCV MCH MCHC RDW 16.7 H Plt Count 701 H Lymph % (Auto) [place] % (Auto) Lymph # (Auto) [place] # (Auto) Seg Neutrophils % Seg Neuts % (Manual) Lymphocytes % (Manual) Monocytes % (Manual) Nucleated RBC % Seg Neutrophils # Seg Neutrophils # Man Lymphocytes # (Manual) Monocytes # (Manual) PT INR D-Dimer ABG pH 7.505 H ABG pO2 246.1 H ABG HCO3 ABG O2 Saturation 99.4 H ABG Base Excess ABG Hemoglobin 6.0 L Oxyhemoglobin Sodium 135 L Potassium Chloride Carbon Dioxide 20 L BUN 38 H Creatinine 1.6 H Glucose 118 H POC Glucose Lactic Acid Calcium 7.9 L Phosphorus Magnesium Ferritin AST ALT Lactate Dehydrogenase Total Creatine Kinase C-Reactive Protein Total Protein Albumin Triglycerides Urine Blood Urine WBC (Auto) U Epithel Cells (Auto) Miscellaneous Test Crossmatch 10/11/21 10/11/21 10/12/21 11:41 17:51 00:18 WBC RBC Hgb Hct MCV MCH MCHC RDW Plt Count Lymph % (Auto) [place] % (Auto) Lymph # (Auto) [place] # (Auto) Seg Neutrophils % Seg Neuts % (Manual) Lymphocytes % (Manual) Monocytes % (Manual) Nucleated RBC % Seg Neutrophils # Seg Neutrophils # Man Lymphocytes # (Manual) Monocytes # (Manual) PT INR D-Dimer ABG pH ABG pO2 ABG HCO3 ABG O2 Saturation ABG Base Excess ABG Hemoglobin Oxyhemoglobin Sodium Potassium Chloride Carbon Dioxide BUN Creatinine Glucose POC Glucose 128 H 138 H 174 H Lactic Acid Calcium Phosphorus Magnesium Ferritin AST ALT Lactate Dehydrogenase Total Creatine Kinase C-Reactive Protein Total Protein Albumin Triglycerides Urine Blood Urine WBC (Auto) U Epithel Cells (Auto) Miscellaneous Test Crossmatch 10/12/21 10/12/21 10/12/21 05:39 06:02 06:02 WBC 19.1 H RBC 3.56 L Hgb 10.0 L D Hct MCV MCH MCHC RDW 17.0 H Plt Count 712 H Lymph % (Auto) [place] % (Auto) Lymph # (Auto) [place] # (Auto) Seg Neutrophils % Seg Neuts % (Manual) Lymphocytes % (Manual) Monocytes % (Manual) Nucleated RBC % Seg Neutrophils # Seg Neutrophils # Man Lymphocytes # (Manual) Monocytes # (Manual) PT INR D-Dimer ABG pH ABG pO2 ABG HCO3 ABG O2 Saturation ABG Base Excess ABG Hemoglobin Oxyhemoglobin Sodium Potassium Chloride Carbon Dioxide BUN 37 H Creatinine 1.5 H Glucose 172 H POC Glucose 158 H Lactic Acid Calcium 8.1 L Phosphorus Magnesium Ferritin AST ALT Lactate Dehydrogenase Total Creatine Kinase C-Reactive Protein Total Protein Albumin Triglycerides Urine Blood Urine WBC (Auto) U Epithel Cells (Auto) Miscellaneous Test Crossmatch 10/12/21 10/12/21 10/12/21 06:02 06:05 17:43 WBC RBC Hgb Hct MCV MCH MCHC RDW Plt Count Lymph % (Auto) [place] % (Auto) Lymph # (Auto) [place] # (Auto) Seg Neutrophils % Seg Neuts % (Manual) Lymphocytes % (Manual) Monocytes % (Manual) Nucleated RBC % Seg Neutrophils # Seg Neutrophils # Man Lymphocytes # (Manual) Monocytes # (Manual) PT 17.1 H INR 1.24 H D-Dimer ABG pH ABG pO2 ABG HCO3 ABG O2 Saturation ABG Base Excess ABG Hemoglobin Oxyhemoglobin Sodium Potassium Chloride Carbon Dioxide BUN Creatinine Glucose POC Glucose 173 H Lactic Acid Calcium Phosphorus Magnesium Ferritin AST ALT Lactate Dehydrogenase Total Creatine Kinase C-Reactive Protein Total Protein Albumin Triglycerides Urine Blood Urine WBC (Auto) U Epithel Cells (Auto) Miscellaneous Test Crossmatch See Detail 10/12/21 10/12/21 10/13/21 23:28 Unknown 04:05 WBC RBC Hgb 10.0 L Hct MCV MCH MCHC RDW Plt Count Lymph % (Auto) [place] % (Auto) Lymph # (Auto) [place] # (Auto) Seg Neutrophils % Seg Neuts % (Manual) Lymphocytes % (Manual) Monocytes % (Manual) Nucleated RBC % Seg Neutrophils # Seg Neutrophils # Man Lymphocytes # (Manual) Monocytes # (Manual) PT INR D-Dimer ABG pH ABG pO2 ABG HCO3 ABG O2 Saturation ABG Base Excess ABG Hemoglobin Oxyhemoglobin Sodium Potassium Chloride Carbon Dioxide BUN 34 H Creatinine Glucose 200 H POC Glucose 178 H Lactic Acid Calcium 7.5 L Phosphorus Magnesium 1.60 L Ferritin AST ALT Lactate Dehydrogenase Total Creatine Kinase C-Reactive Protein Total Protein Albumin Triglycerides Urine Blood Urine WBC (Auto) U Epithel Cells (Auto) Miscellaneous Test Crossmatch 10/13/21 10/13/21 10/13/21 05:09 10:55 13:34 WBC 23.8 H RBC 3.14 L Hgb 9.2 L Hct 27.7 L MCV MCH MCHC RDW 17.5 H Plt Count 572 H Lymph % (Auto) [place] % (Auto) Lymph # (Auto) [place] # (Auto) Seg Neutrophils % Seg Neuts % (Manual) Lymphocytes % (Manual) Monocytes % (Manual) Nucleated RBC % Seg Neutrophils # Seg Neutrophils # Man Lymphocytes # (Manual) Monocytes # (Manual) PT INR D-Dimer ABG pH ABG pO2 ABG HCO3 ABG O2 Saturation ABG Base Excess ABG Hemoglobin Oxyhemoglobin Sodium Potassium Chloride Carbon Dioxide BUN Creatinine Glucose POC Glucose 210 H 168 H Lactic Acid Calcium Phosphorus Magnesium Ferritin AST ALT Lactate Dehydrogenase Total Creatine Kinase C-Reactive Protein Total Protein Albumin Triglycerides Urine Blood Urine WBC (Auto) U Epithel Cells (Auto) Miscellaneous Test Crossmatch 10/13/21 10/13/21 10/14/21 15:35 23:10 04:05 WBC 19.4 H RBC 2.98 L Hgb 8.4 L Hct 26.3 L MCV MCH MCHC RDW 17.1 H Plt Count 561 H Lymph % (Auto) [place] % (Auto) Lymph # (Auto) [place] # (Auto) Seg Neutrophils % Seg Neuts % (Manual) Lymphocytes % (Manual) Monocytes % (Manual) Nucleated RBC % Seg Neutrophils # Seg Neutrophils # Man Lymphocytes # (Manual) Monocytes # (Manual) PT INR D-Dimer ABG pH ABG pO2 ABG HCO3 ABG O2 Saturation ABG Base Excess ABG Hemoglobin Oxyhemoglobin Sodium Potassium Chloride Carbon Dioxide BUN Creatinine Glucose POC Glucose 154 H 135 H Lactic Acid Calcium Phosphorus Magnesium Ferritin AST ALT Lactate Dehydrogenase Total Creatine Kinase C-Reactive Protein Total Protein Albumin Triglycerides Urine Blood Urine WBC (Auto) U Epithel Cells (Auto) Miscellaneous Test Crossmatch 10/14/21 10/14/21 10/14/21 04:05 04:05 05:08 WBC RBC Hgb Hct MCV MCH MCHC RDW Plt Count Lymph % (Auto) [place] % (Auto) Lymph # (Auto) [place] # (Auto) Seg Neutrophils % Seg Neuts % (Manual) Lymphocytes % (Manual) Monocytes % (Manual) Nucleated RBC % Seg Neutrophils # Seg Neutrophils # Man Lymphocytes # (Manual) Monocytes # (Manual) PT 19.0 H INR 1.41 H D-Dimer ABG pH ABG pO2 ABG HCO3 ABG O2 Saturation ABG Base Excess ABG Hemoglobin Oxyhemoglobin Sodium Potassium Chloride Carbon Dioxide BUN 33 H Creatinine Glucose 310 H POC Glucose 178 H Lactic Acid Calcium 7.4 L Phosphorus Magnesium Ferritin AST ALT Lactate Dehydrogenase Total Creatine Kinase C-Reactive Protein Total Protein Albumin Triglycerides Urine Blood Urine WBC (Auto) U Epithel Cells (Auto) Miscellaneous Test Crossmatch 10/14/21 10/14/21 10/14/21 09:29 10:45 11:40 WBC RBC Hgb Hct MCV MCH MCHC RDW Plt Count Lymph % (Auto) [place] % (Auto) Lymph # (Auto) [place] # (Auto) Seg Neutrophils % Seg Neuts % (Manual) Lymphocytes % (Manual) Monocytes % (Manual) Nucleated RBC % Seg Neutrophils # Seg Neutrophils # Man Lymphocytes # (Manual) Monocytes # (Manual) PT INR D-Dimer ABG pH 7.342 L ABG pO2 96.0 H ABG HCO3 26.2 H ABG O2 Saturation ABG Base Excess ABG Hemoglobin 6.1 L Oxyhemoglobin 94.9 L Sodium Potassium Chloride Carbon Dioxide BUN Creatinine Glucose POC Glucose 155 H 137 H Lactic Acid Calcium Phosphorus Magnesium Ferritin AST ALT Lactate Dehydrogenase Total Creatine Kinase C-Reactive Protein Total Protein Albumin Triglycerides Urine Blood Urine WBC (Auto) U Epithel Cells (Auto) Miscellaneous Test Crossmatch 10/14/21 10/14/21 10/14/21 15:40 21:21 23:46 WBC RBC Hgb Hct MCV MCH MCHC RDW Plt Count Lymph % (Auto) [place] % (Auto) Lymph # (Auto) [place] # (Auto) Seg Neutrophils % Seg Neuts % (Manual) Lymphocytes % (Manual) Monocytes % (Manual) Nucleated RBC % Seg Neutrophils # Seg Neutrophils # Man Lymphocytes # (Manual) Monocytes # (Manual) PT INR D-Dimer ABG pH ABG pO2 ABG HCO3 ABG O2 Saturation ABG Base Excess ABG Hemoglobin Oxyhemoglobin Sodium Potassium Chloride Carbon Dioxide BUN Creatinine Glucose POC Glucose 140 H 111 H 164 H Lactic Acid Calcium Phosphorus Magnesium Ferritin AST ALT Lactate Dehydrogenase Total Creatine Kinase C-Reactive Protein Total Protein Albumin Triglycerides Urine Blood Urine WBC (Auto) U Epithel Cells (Auto) Miscellaneous Test Crossmatch 10/15/21 10/15/21 10/15/21 05:06 05:40 05:40 WBC 22.7 H RBC 2.94 L Hgb 8.7 L Hct 25.8 L MCV MCH MCHC RDW 17.2 H Plt Count 620 H Lymph % (Auto) [place] % (Auto) Lymph # (Auto) [place] # (Auto) Seg Neutrophils % Seg Neuts % (Manual) Lymphocytes % (Manual) Monocytes % (Manual) Nucleated RBC % Seg Neutrophils # Seg Neutrophils # Man Lymphocytes # (Manual) Monocytes # (Manual) PT INR D-Dimer ABG pH ABG pO2 ABG HCO3 ABG O2 Saturation ABG Base Excess ABG Hemoglobin Oxyhemoglobin Sodium Potassium Chloride Carbon Dioxide BUN 30 H Creatinine Glucose 175 H POC Glucose 155 H Lactic Acid Calcium 7.4 L Phosphorus Magnesium Ferritin AST ALT Lactate Dehydrogenase Total Creatine Kinase C-Reactive Protein Total Protein Albumin Triglycerides Urine Blood Urine WBC (Auto) U Epithel Cells (Auto) Miscellaneous Test Crossmatch 10/15/21 10/15/21 10/15/21 11:32 17:23 23:35 WBC RBC Hgb Hct MCV MCH MCHC RDW Plt Count Lymph % (Auto) [place] % (Auto) Lymph # (Auto) [place] # (Auto) Seg Neutrophils % Seg Neuts % (Manual) Lymphocytes % (Manual) Monocytes % (Manual) Nucleated RBC % Seg Neutrophils # Seg Neutrophils # Man Lymphocytes # (Manual) Monocytes # (Manual) PT INR D-Dimer ABG pH ABG pO2 ABG HCO3 ABG O2 Saturation ABG Base Excess ABG Hemoglobin Oxyhemoglobin Sodium Potassium Chloride Carbon Dioxide BUN Creatinine Glucose POC Glucose 157 H 136 H 143 H Lactic Acid Calcium Phosphorus Magnesium Ferritin AST ALT Lactate Dehydrogenase Total Creatine Kinase C-Reactive Protein Total Protein Albumin Triglycerides Urine Blood Urine WBC (Auto) U Epithel Cells (Auto) Miscellaneous Test Crossmatch 10/16/21 10/16/21 10/16/21 04:00 04:00 05:08 WBC 18.0 H RBC 2.80 L Hgb 8.0 L Hct 24.7 L MCV MCH MCHC RDW 17.4 H Plt Count 543 H Lymph % (Auto) [place] % (Auto) Lymph # (Auto) [place] # (Auto) Seg Neutrophils % Seg Neuts % (Manual) Lymphocytes % (Manual) Monocytes % (Manual) Nucleated RBC % Seg Neutrophils # Seg Neutrophils # Man Lymphocytes # (Manual) Monocytes # (Manual) PT INR D-Dimer ABG pH ABG pO2 ABG HCO3 ABG O2 Saturation ABG Base Excess ABG Hemoglobin Oxyhemoglobin Sodium Potassium Chloride Carbon Dioxide BUN 31 H Creatinine Glucose 153 H POC Glucose 149 H Lactic Acid Calcium 8.0 L Phosphorus Magnesium Ferritin AST ALT Lactate Dehydrogenase Total Creatine Kinase C-Reactive Protein Total Protein 5.5 L Albumin 1.9 L Triglycerides Urine Blood Urine WBC (Auto) U Epithel Cells (Auto) Miscellaneous Test Crossmatch 10/16/21 10/16/21 10/16/21 11:45 17:37 23:48 WBC RBC Hgb Hct MCV MCH MCHC RDW Plt Count Lymph % (Auto) [place] % (Auto) Lymph # (Auto) [place] # (Auto) Seg Neutrophils % Seg Neuts % (Manual) Lymphocytes % (Manual) Monocytes % (Manual) Nucleated RBC % Seg Neutrophils # Seg Neutrophils # Man Lymphocytes # (Manual) Monocytes # (Manual) PT INR D-Dimer ABG pH ABG pO2 ABG HCO3 ABG O2 Saturation ABG Base Excess ABG Hemoglobin Oxyhemoglobin Sodium Potassium Chloride Carbon Dioxide BUN Creatinine Glucose POC Glucose 144 H 130 H 134 H Lactic Acid Calcium Phosphorus Magnesium Ferritin AST ALT Lactate Dehydrogenase Total Creatine Kinase C-Reactive Protein Total Protein Albumin Triglycerides Urine Blood Urine WBC (Auto) U Epithel Cells (Auto) Miscellaneous Test Crossmatch 10/17/21 10/17/21 10/17/21 04:00 04:00 05:37 WBC 14.0 H RBC 2.46 L Hgb 7.2 L Hct 21.7 L MCV MCH MCHC RDW 17.4 H Plt Count 526 H Lymph % (Auto) [place] % (Auto) Lymph # (Auto) [place] # (Auto) Seg Neutrophils % Seg Neuts % (Manual) Lymphocytes % (Manual) Monocytes % (Manual) Nucleated RBC % Seg Neutrophils # Seg Neutrophils # Man Lymphocytes # (Manual) Monocytes # (Manual) PT INR D-Dimer ABG pH ABG pO2 ABG HCO3 ABG O2 Saturation ABG Base Excess ABG Hemoglobin Oxyhemoglobin Sodium Potassium Chloride Carbon Dioxide BUN 29 H Creatinine Glucose 138 H POC Glucose 137 H Lactic Acid Calcium 7.5 L Phosphorus Magnesium Ferritin AST ALT Lactate Dehydrogenase Total Creatine Kinase C-Reactive Protein Total Protein Albumin Triglycerides Urine Blood Urine WBC (Auto) U Epithel Cells (Auto) Miscellaneous Test Crossmatch 10/17/21 10/17/21 10/17/21 11:45 12:50 16:13 WBC RBC Hgb Hct MCV MCH MCHC RDW Plt Count Lymph % (Auto) [place] % (Auto) Lymph # (Auto) [place] # (Auto) Seg Neutrophils % Seg Neuts % (Manual) Lymphocytes % (Manual) Monocytes % (Manual) Nucleated RBC % Seg Neutrophils # Seg Neutrophils # Man Lymphocytes # (Manual) Monocytes # (Manual) PT INR D-Dimer ABG pH ABG pO2 ABG HCO3 ABG O2 Saturation ABG Base Excess ABG Hemoglobin Oxyhemoglobin Sodium Potassium Chloride Carbon Dioxide BUN Creatinine Glucose POC Glucose 145 H 128 H Lactic Acid Calcium Phosphorus Magnesium Ferritin AST ALT Lactate Dehydrogenase Total Creatine Kinase C-Reactive Protein Total Protein Albumin Triglycerides Urine Blood Urine WBC (Auto) U Epithel Cells (Auto) Miscellaneous Test Crossmatch See Detail 10/17/21 10/18/21 10/18/21 23:46 04:28 04:28 WBC 16.6 H RBC 2.81 L Hgb 8.4 L Hct 24.4 L MCV MCH MCHC RDW 16.8 H Plt Count 516 H Lymph % (Auto) [place] % (Auto) Lymph # (Auto) [place] # (Auto) Seg Neutrophils % Seg Neuts % (Manual) Lymphocytes % (Manual) Monocytes % (Manual) Nucleated RBC % Seg Neutrophils # Seg Neutrophils # Man Lymphocytes # (Manual) Monocytes # (Manual) PT INR D-Dimer ABG pH ABG pO2 ABG HCO3 ABG O2 Saturation ABG Base Excess ABG Hemoglobin Oxyhemoglobin Sodium Potassium Chloride Carbon Dioxide BUN 26 H Creatinine Glucose 144 H POC Glucose 124 H Lactic Acid Calcium 7.5 L Phosphorus Magnesium Ferritin AST ALT 6 L Lactate Dehydrogenase Total Creatine Kinase C-Reactive Protein Total Protein 6.1 L Albumin 2.0 L Triglycerides Urine Blood Urine WBC (Auto) U Epithel Cells (Auto) Miscellaneous Test Crossmatch 10/18/21 10/18/21 10/18/21 05:19 11:34 11:40 WBC RBC Hgb Hct MCV MCH MCHC RDW Plt Count Lymph % (Auto) [place] % (Auto) Lymph # (Auto) [place] # (Auto) Seg Neutrophils % Seg Neuts % (Manual) Lymphocytes % (Manual) Monocytes % (Manual) Nucleated RBC % Seg Neutrophils # Seg Neutrophils # Man Lymphocytes # (Manual) Monocytes # (Manual) PT INR D-Dimer ABG pH 7.466 H ABG pO2 90.6 H ABG HCO3 29.0 H ABG O2 Saturation ABG Base Excess 4.9 H ABG Hemoglobin 8.6 L Oxyhemoglobin Sodium Potassium Chloride Carbon Dioxide BUN Creatinine Glucose POC Glucose 128 H Lactic Acid Calcium Phosphorus Magnesium Ferritin AST ALT Lactate Dehydrogenase Total Creatine Kinase C-Reactive Protein Total Protein Albumin Triglycerides Urine Blood Moderate A Urine WBC (Auto) 50.0 H U Epithel Cells (Auto) Miscellaneous Test Crossmatch 10/18/21 10/18/21 10/19/21 12:20 16:18 01:28 WBC RBC Hgb Hct MCV MCH MCHC RDW Plt Count Lymph % (Auto) [place] % (Auto) Lymph # (Auto) [place] # (Auto) Seg Neutrophils % Seg Neuts % (Manual) Lymphocytes % (Manual) Monocytes % (Manual) Nucleated RBC % Seg Neutrophils # Seg Neutrophils # Man Lymphocytes # (Manual) Monocytes # (Manual) PT INR D-Dimer ABG pH ABG pO2 ABG HCO3 ABG O2 Saturation ABG Base Excess ABG Hemoglobin Oxyhemoglobin Sodium Potassium Chloride Carbon Dioxide BUN Creatinine Glucose POC Glucose 151 H 139 H 126 H Lactic Acid Calcium Phosphorus Magnesium Ferritin AST ALT Lactate Dehydrogenase Total Creatine Kinase C-Reactive Protein Total Protein Albumin Triglycerides Urine Blood Urine WBC (Auto) U Epithel Cells (Auto) Miscellaneous Test Crossmatch 10/19/21 10/19/21 10/19/21 04:23 04:23 04:23 WBC 16.0 H RBC 3.04 L Hgb 8.7 L Hct 26.3 L MCV MCH MCHC RDW 16.9 H Plt Count 500 H Lymph % (Auto) [place] % (Auto) Lymph # (Auto) [place] # (Auto) Seg Neutrophils % Seg Neuts % (Manual) Lymphocytes % (Manual) Monocytes % (Manual) Nucleated RBC % Seg Neutrophils # Seg Neutrophils # Man Lymphocytes # (Manual) Monocytes # (Manual) PT INR D-Dimer ABG pH ABG pO2 ABG HCO3 ABG O2 Saturation ABG Base Excess ABG Hemoglobin Oxyhemoglobin Sodium Potassium Chloride Carbon Dioxide BUN 20 H Creatinine Glucose 138 H POC Glucose Lactic Acid Calcium 7.8 L Phosphorus 1.80 L D Magnesium 1.60 L Ferritin AST ALT Lactate Dehydrogenase Total Creatine Kinase C-Reactive Protein Total Protein Albumin Triglycerides Urine Blood Urine WBC (Auto) U Epithel Cells (Auto) Miscellaneous Test Crossmatch 10/19/21 10/19/21 10/19/21 14:11 18:05 21:42 WBC RBC Hgb Hct MCV MCH MCHC RDW Plt Count Lymph % (Auto) [place] % (Auto) Lymph # (Auto) [place] # (Auto) Seg Neutrophils % Seg Neuts % (Manual) Lymphocytes % (Manual) Monocytes % (Manual) Nucleated RBC % Seg Neutrophils # Seg Neutrophils # Man Lymphocytes # (Manual) Monocytes # (Manual) PT INR D-Dimer ABG pH ABG pO2 ABG HCO3 ABG O2 Saturation ABG Base Excess ABG Hemoglobin Oxyhemoglobin Sodium Potassium Chloride Carbon Dioxide BUN Creatinine Glucose POC Glucose 161 H 162 H 112 H Lactic Acid Calcium Phosphorus Magnesium Ferritin AST ALT Lactate Dehydrogenase Total Creatine Kinase C-Reactive Protein Total Protein Albumin Triglycerides Urine Blood Urine WBC (Auto) U Epithel Cells (Auto) Miscellaneous Test Crossmatch 10/20/21 10/20/21 10/20/21 00:01 05:39 11:41 WBC 20.2 H RBC 2.81 L Hgb 8.5 L Hct 24.3 L MCV MCH MCHC 35 H RDW 16.8 H Plt Count 481 H Lymph % (Auto) [place] % (Auto) Lymph # (Auto) [place] # (Auto) Seg Neutrophils % Seg Neuts % (Manual) Lymphocytes % (Manual) Monocytes % (Manual) Nucleated RBC % Seg Neutrophils # Seg Neutrophils # Man Lymphocytes # (Manual) Monocytes # (Manual) PT INR D-Dimer ABG pH ABG pO2 ABG HCO3 ABG O2 Saturation ABG Base Excess ABG Hemoglobin Oxyhemoglobin Sodium Potassium Chloride Carbon Dioxide BUN Creatinine Glucose POC Glucose 152 H 117 H Lactic Acid Calcium Phosphorus Magnesium Ferritin AST ALT Lactate Dehydrogenase Total Creatine Kinase C-Reactive Protein Total Protein Albumin Triglycerides Urine Blood Urine WBC (Auto) U Epithel Cells (Auto) Miscellaneous Test Crossmatch 10/20/21 10/20/21 10/20/21 11:41 11:50 17:31 WBC RBC Hgb Hct MCV MCH MCHC RDW Plt Count Lymph % (Auto) [place] % (Auto) Lymph # (Auto) [place] # (Auto) Seg Neutrophils % Seg Neuts % (Manual) Lymphocytes % (Manual) Monocytes % (Manual) Nucleated RBC % Seg Neutrophils # Seg Neutrophils # Man Lymphocytes # (Manual) Monocytes # (Manual) PT INR D-Dimer ABG pH ABG pO2 ABG HCO3 ABG O2 Saturation ABG Base Excess ABG Hemoglobin Oxyhemoglobin Sodium Potassium Chloride Carbon Dioxide BUN 20 H Creatinine Glucose 123 H POC Glucose 120 H 125 H Lactic Acid Calcium 7.7 L Phosphorus 2.00 L Magnesium Ferritin AST ALT Lactate Dehydrogenase Total Creatine Kinase C-Reactive Protein Total Protein Albumin Triglycerides Urine Blood Urine WBC (Auto) U Epithel Cells (Auto) Miscellaneous Test Crossmatch 10/20/21 10/21/21 10/21/21 23:25 04:30 04:30 WBC 23.2 H RBC 2.70 L Hgb 7.9 L Hct 23.2 L MCV MCH MCHC RDW 17.2 H Plt Count Lymph % (Auto) [place] % (Auto) Lymph # (Auto) [place] # (Auto) Seg Neutrophils % Seg Neuts % (Manual) Lymphocytes % (Manual) Monocytes % (Manual) Nucleated RBC % Seg Neutrophils # Seg Neutrophils # Man Lymphocytes # (Manual) Monocytes # (Manual) PT INR D-Dimer ABG pH ABG pO2 ABG HCO3 ABG O2 Saturation ABG Base Excess ABG Hemoglobin Oxyhemoglobin Sodium Potassium Chloride Carbon Dioxide BUN 22 H Creatinine Glucose 117 H POC Glucose 119 H Lactic Acid Calcium 7.7 L Phosphorus Magnesium Ferritin AST ALT Lactate Dehydrogenase Total Creatine Kinase C-Reactive Protein Total Protein Albumin Triglycerides Urine Blood Urine WBC (Auto) U Epithel Cells (Auto) Miscellaneous Test Crossmatch 10/21/21 10/21/21 10/21/21 05:26 09:05 11:27 WBC RBC Hgb Hct MCV MCH MCHC RDW Plt Count Lymph % (Auto) [place] % (Auto) Lymph # (Auto) [place] # (Auto) Seg Neutrophils % Seg Neuts % (Manual) Lymphocytes % (Manual) Monocytes % (Manual) Nucleated RBC % Seg Neutrophils # Seg Neutrophils # Man Lymphocytes # (Manual) Monocytes # (Manual) PT INR D-Dimer ABG pH 7.509 H ABG pO2 60.3 L ABG HCO3 26.2 H ABG O2 Saturation ABG Base Excess ABG Hemoglobin 6.7 L Oxyhemoglobin Sodium Potassium Chloride Carbon Dioxide BUN Creatinine Glucose POC Glucose 111 H 114 H Lactic Acid Calcium Phosphorus Magnesium Ferritin AST ALT Lactate Dehydrogenase Total Creatine Kinase C-Reactive Protein Total Protein Albumin Triglycerides Urine Blood Urine WBC (Auto) U Epithel Cells (Auto) Miscellaneous Test Crossmatch 10/21/21 10/21/21 10/21/21 16:05 16:45 23:13 WBC 21.7 H RBC 2.55 L Hgb 7.5 L Hct 22.3 L MCV MCH MCHC RDW 16.8 H Plt Count Lymph % (Auto) [place] % (Auto) Lymph # (Auto) [place] # (Auto) Seg Neutrophils % Seg Neuts % (Manual) 86.0 H Lymphocytes % (Manual) 7.0 L Monocytes % (Manual) Nucleated RBC % Seg Neutrophils # Seg Neutrophils # Man 18.7 H Lymphocytes # (Manual) Monocytes # (Manual) 1.5 H PT INR D-Dimer ABG pH ABG pO2 ABG HCO3 ABG O2 Saturation ABG Base Excess ABG Hemoglobin Oxyhemoglobin Sodium Potassium Chloride Carbon Dioxide BUN Creatinine Glucose POC Glucose 117 H Lactic Acid Calcium Phosphorus Magnesium Ferritin AST ALT Lactate Dehydrogenase Total Creatine Kinase C-Reactive Protein Total Protein Albumin Triglycerides Urine Blood Urine WBC (Auto) U Epithel Cells (Auto) Miscellaneous Test Flexitest 1 H Crossmatch 10/22/21 10/22/21 10/22/21 05:25 09:02 09:02 WBC 17.2 H RBC 2.51 L Hgb 7.1 L Hct 21.9 L MCV MCH MCHC RDW 17.2 H Plt Count Lymph % (Auto) 4.[address] [place] % (Auto) 10.2 H Lymph # (Auto) 0.[address] [place] # (Auto) 1.8 H Seg Neutrophils % 84.5 H Seg Neuts % (Manual) Lymphocytes % (Manual) Monocytes % (Manual) Nucleated RBC % Seg Neutrophils # 14.5 H Seg Neutrophils # Man Lymphocytes # (Manual) Monocytes # (Manual) PT INR D-Dimer ABG pH ABG pO2 ABG HCO3 ABG O2 Saturation ABG Base Excess ABG Hemoglobin Oxyhemoglobin Sodium 134 L Potassium Chloride Carbon Dioxide BUN 23 H Creatinine Glucose 117 H POC Glucose 125 H Lactic Acid Calcium 8.1 L Phosphorus Magnesium Ferritin AST ALT Lactate Dehydrogenase Total Creatine Kinase C-Reactive Protein Total Protein Albumin Triglycerides Urine Blood Urine WBC (Auto) U Epithel Cells (Auto) Miscellaneous Test Crossmatch 10/22/21 10/22/21 10/22/21 11:07 16:05 23:15 WBC RBC Hgb Hct MCV MCH MCHC RDW Plt Count Lymph % (Auto) [place] % (Auto) Lymph # (Auto) [place] # (Auto) Seg Neutrophils % Seg Neuts % (Manual) Lymphocytes % (Manual) Monocytes % (Manual) Nucleated RBC % Seg Neutrophils # Seg Neutrophils # Man Lymphocytes # (Manual) Monocytes # (Manual) PT INR D-Dimer ABG pH ABG pO2 ABG HCO3 ABG O2 Saturation ABG Base Excess ABG Hemoglobin Oxyhemoglobin Sodium Potassium Chloride Carbon Dioxide BUN Creatinine Glucose POC Glucose 115 H 123 H 114 H Lactic Acid Calcium Phosphorus Magnesium Ferritin AST ALT Lactate Dehydrogenase Total Creatine Kinase C-Reactive Protein Total Protein Albumin Triglycerides Urine Blood Urine WBC (Auto) U Epithel Cells (Auto) Miscellaneous Test Crossmatch 10/22/21 10/23/21 10/23/21 Unknown 04:56 04:56 WBC 16.5 H RBC 2.46 L Hgb 7.1 L Hct 21.4 L MCV MCH MCHC RDW 16.9 H Plt Count Lymph % (Auto) [place] % (Auto) Lymph # (Auto) [place] # (Auto) Seg Neutrophils % Seg Neuts % (Manual) Lymphocytes % (Manual) Monocytes % (Manual) Nucleated RBC % Seg Neutrophils # Seg Neutrophils # Man Lymphocytes # (Manual) Monocytes # (Manual) PT INR D-Dimer ABG pH ABG pO2 ABG HCO3 ABG O2 Saturation ABG Base Excess ABG Hemoglobin Oxyhemoglobin Sodium 135 L Potassium Chloride Carbon Dioxide 21 L BUN 23 H 25 H Creatinine Glucose 112 H 123 H POC Glucose Lactic Acid Calcium 8.2 L 8.3 L Phosphorus Magnesium Ferritin AST ALT Lactate Dehydrogenase Total Creatine Kinase C-Reactive Protein Total Protein Albumin Triglycerides Urine Blood Urine WBC (Auto) U Epithel Cells (Auto) Miscellaneous Test Crossmatch 10/23/21 10/23/21 10/23/21 05:28 11:24 17:52 WBC RBC Hgb Hct MCV MCH MCHC RDW Plt Count Lymph % (Auto) [place] % (Auto) Lymph # (Auto) [place] # (Auto) Seg Neutrophils % Seg Neuts % (Manual) Lymphocytes % (Manual) Monocytes % (Manual) Nucleated RBC % Seg Neutrophils # Seg Neutrophils # Man Lymphocytes # (Manual) Monocytes # (Manual) PT INR D-Dimer ABG pH ABG pO2 ABG HCO3 ABG O2 Saturation ABG Base Excess ABG Hemoglobin Oxyhemoglobin Sodium Potassium Chloride Carbon Dioxide BUN Creatinine Glucose POC Glucose 130 H 123 H 121 H Lactic Acid Calcium Phosphorus Magnesium Ferritin AST ALT Lactate Dehydrogenase Total Creatine Kinase C-Reactive Protein Total Protein Albumin Triglycerides Urine Blood Urine WBC (Auto) U Epithel Cells (Auto) Miscellaneous Test Crossmatch 10/24/21 10/24/21 10/24/21 00:11 04:00 04:00 WBC 14.2 H RBC 2.55 L Hgb 7.4 L Hct 22.2 L MCV MCH MCHC RDW 17.0 H Plt Count 470 H Lymph % (Auto) [place] % (Auto) Lymph # (Auto) [place] # (Auto) Seg Neutrophils % Seg Neuts % (Manual) Lymphocytes % (Manual) Monocytes % (Manual) Nucleated RBC % Seg Neutrophils # Seg Neutrophils # Man Lymphocytes # (Manual) Monocytes # (Manual) PT INR D-Dimer ABG pH ABG pO2 ABG HCO3 ABG O2 Saturation ABG Base Excess ABG Hemoglobin Oxyhemoglobin Sodium 135 L Potassium Chloride Carbon Dioxide 21 L BUN 26 H Creatinine Glucose 122 H POC Glucose 139 H Lactic Acid Calcium 8.2 L Phosphorus Magnesium Ferritin AST ALT Lactate Dehydrogenase Total Creatine Kinase C-Reactive Protein Total Protein Albumin Triglycerides Urine Blood Urine WBC (Auto) U Epithel Cells (Auto) Miscellaneous Test Crossmatch 10/24/21 10/24/21 10/25/21 05:15 16:53 05:03 WBC 12.2 H RBC 2.72 L Hgb 7.9 L Hct 23.7 L MCV MCH MCHC RDW 17.3 H Plt Count 486 H Lymph % (Auto) [place] % (Auto) Lymph # (Auto) [place] # (Auto) Seg Neutrophils % Seg Neuts % (Manual) Lymphocytes % (Manual) Monocytes % (Manual) Nucleated RBC % Seg Neutrophils # Seg Neutrophils # Man Lymphocytes # (Manual) Monocytes # (Manual) PT INR D-Dimer ABG pH ABG pO2 ABG HCO3 ABG O2 Saturation ABG Base Excess ABG Hemoglobin Oxyhemoglobin Sodium Potassium Chloride Carbon Dioxide BUN Creatinine Glucose POC Glucose 133 H 129 H Lactic Acid Calcium Phosphorus Magnesium Ferritin AST ALT Lactate Dehydrogenase Total Creatine Kinase C-Reactive Protein Total Protein Albumin Triglycerides Urine Blood Urine WBC (Auto) U Epithel Cells (Auto) Miscellaneous Test Crossmatch 10/25/21 10/25/21 10/25/21 05:03 05:44 11:29 WBC RBC Hgb Hct MCV MCH MCHC RDW Plt Count Lymph % (Auto) [place] % (Auto) Lymph # (Auto) [place] # (Auto) Seg Neutrophils % Seg Neuts % (Manual) Lymphocytes % (Manual) Monocytes % (Manual) Nucleated RBC % Seg Neutrophils # Seg Neutrophils # Man Lymphocytes # (Manual) Monocytes # (Manual) PT INR D-Dimer ABG pH ABG pO2 ABG HCO3 ABG O2 Saturation ABG Base Excess ABG Hemoglobin Oxyhemoglobin Sodium 134 L Potassium Chloride Carbon Dioxide 19 L BUN 26 H Creatinine Glucose 107 H POC Glucose 113 H 120 H Lactic Acid Calcium 8.2 L Phosphorus Magnesium Ferritin AST ALT Lactate Dehydrogenase Total Creatine Kinase C-Reactive Protein Total Protein Albumin Triglycerides Urine Blood Urine WBC (Auto) U Epithel Cells (Auto) Miscellaneous Test Crossmatch 10/25/21 10/26/21 10/26/21 17:10 04:18 04:18 WBC 14.5 H RBC 2.50 L Hgb 7.4 L Hct 21.8 L MCV MCH MCHC RDW 17.0 H Plt Count 495 H Lymph % (Auto) [place] % (Auto) Lymph # (Auto) [place] # (Auto) Seg Neutrophils % Seg Neuts % (Manual) Lymphocytes % (Manual) Monocytes % (Manual) Nucleated RBC % Seg Neutrophils # Seg Neutrophils # Man Lymphocytes # (Manual) Monocytes # (Manual) PT INR D-Dimer ABG pH ABG pO2 ABG HCO3 ABG O2 Saturation ABG Base Excess ABG Hemoglobin Oxyhemoglobin Sodium 135 L Potassium Chloride Carbon Dioxide 20 L BUN 26 H Creatinine Glucose 101 H POC Glucose 121 H Lactic Acid Calcium 8.2 L Phosphorus Magnesium Ferritin AST 71 H ALT 91 H Lactate Dehydrogenase Total Creatine Kinase C-Reactive Protein Total Protein Albumin 2.3 L Triglycerides 196 H Urine Blood Urine WBC (Auto) U Epithel Cells (Auto) Miscellaneous Test Crossmatch 10/27/21 10/27/21 10/27/21 04:00 05:17 10:14 WBC 11.9 H RBC 2.56 L Hgb 7.3 L Hct 22.6 L MCV MCH MCHC RDW 17.1 H Plt Count 515 H Lymph % (Auto) [place] % (Auto) Lymph # (Auto) [place] # (Auto) Seg Neutrophils % Seg Neuts % (Manual) Lymphocytes % (Manual) Monocytes % (Manual) Nucleated RBC % Seg Neutrophils # Seg Neutrophils # Man Lymphocytes # (Manual) Monocytes # (Manual) PT INR D-Dimer ABG pH ABG pO2 ABG HCO3 ABG O2 Saturation ABG Base Excess ABG Hemoglobin Oxyhemoglobin Sodium 135 L Potassium Chloride Carbon Dioxide BUN 21 H Creatinine Glucose 116 H POC Glucose 117 H Lactic Acid Calcium 8.2 L Phosphorus Magnesium Ferritin AST ALT Lactate Dehydrogenase Total Creatine Kinase C-Reactive Protein Total Protein Albumin Triglycerides Urine Blood Urine WBC (Auto) U Epithel Cells (Auto) Miscellaneous Test Crossmatch 10/27/21 10/27/21 10/27/21 11:26 22:34 23:36 WBC RBC Hgb Hct MCV MCH MCHC RDW Plt Count Lymph % (Auto) [place] % (Auto) Lymph # (Auto) [place] # (Auto) Seg Neutrophils % Seg Neuts % (Manual) Lymphocytes % (Manual) Monocytes % (Manual) Nucleated RBC % Seg Neutrophils # Seg Neutrophils # Man Lymphocytes # (Manual) Monocytes # (Manual) PT INR D-Dimer ABG pH ABG pO2 ABG HCO3 ABG O2 Saturation ABG Base Excess ABG Hemoglobin Oxyhemoglobin Sodium Potassium Chloride Carbon Dioxide BUN Creatinine Glucose POC Glucose 125 H 112 H 121 H Lactic Acid Calcium Phosphorus Magnesium Ferritin AST ALT Lactate Dehydrogenase Total Creatine Kinase C-Reactive Protein Total Protein Albumin Triglycerides Urine Blood Urine WBC (Auto) U Epithel Cells (Auto) Miscellaneous Test Crossmatch 10/28/21 10/28/21 10/28/21 05:10 06:15 06:15 WBC 12.1 H RBC 2.42 L Hgb 7.0 L Hct 24.1 L MCV 99 H MCH MCHC 29 L RDW 19.2 H Plt Count 484 H Lymph % (Auto) [place] % (Auto) Lymph # (Auto) [place] # (Auto) Seg Neutrophils % Seg Neuts % (Manual) Lymphocytes % (Manual) Monocytes % (Manual) Nucleated RBC % Seg Neutrophils # Seg Neutrophils # Man Lymphocytes # (Manual) Monocytes # (Manual) PT INR D-Dimer ABG pH ABG pO2 ABG HCO3 ABG O2 Saturation ABG Base Excess ABG Hemoglobin Oxyhemoglobin Sodium 126 L D Potassium 6.6 H* D Chloride 86.6 L Carbon Dioxide 17 L BUN 19 H Creatinine Glucose POC Glucose 130 H Lactic Acid Calcium 7.8 L Phosphorus 11.90 H D Magnesium 2.40 H Ferritin AST ALT Lactate Dehydrogenase Total Creatine Kinase C-Reactive Protein Total Protein Albumin Triglycerides Urine Blood Urine WBC (Auto) U Epithel Cells (Auto) Miscellaneous Test Crossmatch 10/28/21 10/28/21 10/28/21 07:15 11:45 12:20 WBC RBC Hgb Hct MCV MCH MCHC RDW Plt Count Lymph % (Auto) [place] % (Auto) Lymph # (Auto) [place] # (Auto) Seg Neutrophils % Seg Neuts % (Manual) Lymphocytes % (Manual) Monocytes % (Manual) Nucleated RBC % Seg Neutrophils # Seg Neutrophils # Man Lymphocytes # (Manual) Monocytes # (Manual) PT INR D-Dimer ABG pH ABG pO2 ABG HCO3 ABG O2 Saturation ABG Base Excess ABG Hemoglobin Oxyhemoglobin Sodium 134 L D Potassium Chloride 97.6 L Carbon Dioxide BUN 19 H Creatinine Glucose 137 H POC Glucose 172 H Lactic Acid Calcium Phosphorus Magnesium Ferritin AST ALT Lactate Dehydrogenase Total Creatine Kinase C-Reactive Protein Total Protein Albumin Triglycerides Urine Blood Urine WBC (Auto) U Epithel Cells (Auto) Miscellaneous Test Crossmatch See Detail 10/28/21 10/28/21 10/29/21 15:15 16:26 Unknown WBC 11.7 H RBC 2.76 L Hgb 8.1 L Hct 24.5 L MCV MCH MCHC RDW 16.5 H Plt Count 473 H Lymph % (Auto) [place] % (Auto) Lymph # (Auto) [place] # (Auto) Seg Neutrophils % Seg Neuts % (Manual) Lymphocytes % (Manual) Monocytes % (Manual) Nucleated RBC % Seg Neutrophils # Seg Neutrophils # Man Lymphocytes # (Manual) Monocytes # (Manual) PT INR D-Dimer > 44498 H ABG pH ABG pO2 ABG HCO3 ABG O2 Saturation ABG Base Excess ABG Hemoglobin Oxyhemoglobin Sodium Potassium Chloride Carbon Dioxide BUN Creatinine Glucose POC Glucose 163 H Lactic Acid Calcium Phosphorus Magnesium Ferritin AST ALT Lactate Dehydrogenase Total Creatine Kinase C-Reactive Protein Total Protein Albumin Triglycerides Urine Blood Urine WBC (Auto) U Epithel Cells (Auto) Miscellaneous Test Crossmatch CT scan - chest: image reviewed (no P.E. / + pericardial circumfrential effusion) Allied health notes reviewed: nursing
--- NOTE | 2021-10-29 13:21 | Progress Note ---
Assessment and Plan Postop day #15 status post colostomy creation with closure of abdomen. Afebrile and stable with persistent tachycardia. Tachycardia likely due to worsening pericardial effusion. Patient being transferred to [place] for definitive treatment. Leukocytosis stable at 12. Showing return of bowel function. Advance from clear liquids slowly as tolerated. would not remove drains until output is minimal. No active intra-abdominal issues at this time. Sputum culture positive for gram-negative rods. Pt finished course abx per ID. Respiratory insufficiency - resolved. supplemental O2 prn Would like to increase PT exercises as tolerated. Creatinine has normalized she is making good urine output. Continue supportive care. Postop day #18 status post colorectal anastomosis takedown, with abdominal washout and ABThera wound VAC. Postop day #26 status post laparoscopic converted to open left hemicolectomy with appendectomy for perforated appendicitis with fistulization to sigmoid colon. Subjective Date of service: 10/29/21 Narrative: Over past 24 hours pt had a CTA that was negative for PE, but positive for significant pericardial effusion followed by echo with consistent findings. Pt has been evaluated by cardiology and found be in need of drainage of effusion. They are facilitating transfer to [place] where there is access to CT surgery resources. This evaluation pt is sleeping but arousable. Denies any complaints at this time. She tolerated clear liquids yesterday. Objective Vital Signs - 12hr 10/29/21 10/29/21 10/29/21 01:31 02:03 02:15 Temperature Pulse Rate 128 H 119 H 127 H Pulse Rate [ Anterior Bilateral Throughout] Pulse Rate [ From Monitor] Respiratory 36 H 18 25 H Rate Respiratory Rate [Anterior Bilateral Throughout] Blood Pressure 134/104 134/104 137/111 O2 Sat by Pulse 95 Oximetry 10/29/21 10/29/21 10/29/21 02:31 02:45 03:01 Temperature Pulse Rate 122 H 118 H 118 H Pulse Rate [ Anterior Bilateral Throughout] Pulse Rate [ From Monitor] Respiratory 21 39 H 18 Rate Respiratory Rate [Anterior Bilateral Throughout] Blood Pressure 137/111 137/111 107/76 O2 Sat by Pulse 84 Oximetry 10/29/21 10/29/21 10/29/21 03:15 03:31 03:45 Temperature Pulse Rate 111 H 114 H 118 H Pulse Rate [ Anterior Bilateral Throughout] Pulse Rate [ From Monitor] Respiratory 29 H 29 H 21 Rate Respiratory Rate [Anterior Bilateral Throughout] Blood Pressure 107/76 107/76 107/76 O2 Sat by Pulse 96 Oximetry 10/29/21 10/29/21 10/29/21 04:00 04:01 04:15 Temperature 97.7 F Pulse Rate 113 H 120 H 118 H Pulse Rate [ Anterior Bilateral Throughout] Pulse Rate [ 131 H From Monitor] Respiratory 12 38 H Rate Respiratory Rate [Anterior Bilateral Throughout] Blood Pressure 107/76 107/76 O2 Sat by Pulse 99 97 98 Oximetry 10/29/21 10/29/21 10/29/21 04:31 04:45 05:00 Temperature Pulse Rate 121 H 127 H Pulse Rate [ 80 Anterior Bilateral Throughout] Pulse Rate [ From Monitor] Respiratory 33 H 23 Rate Respiratory 18 Rate [Anterior Bilateral Throughout] Blood Pressure 107/76 107/76 O2 Sat by Pulse 97 Oximetry 10/29/21 10/29/21 10/29/21 05:01 05:15 05:31 Temperature Pulse Rate 129 H 128 H 133 H Pulse Rate [ Anterior Bilateral Throughout] Pulse Rate [ From Monitor] Respiratory 15 45 H 37 H Rate Respiratory Rate [Anterior Bilateral Throughout] Blood Pressure 107/76 107/76 107/76 O2 Sat by Pulse Oximetry 10/29/21 10/29/21 10/29/21 05:45 06:01 06:15 Temperature Pulse Rate 131 H 134 H 137 H Pulse Rate [ Anterior Bilateral Throughout] Pulse Rate [ From Monitor] Respiratory 38 H 40 H 18 Rate Respiratory Rate [Anterior Bilateral Throughout] Blood Pressure 107/76 107/76 107/76 O2 Sat by Pulse Oximetry 10/29/21 10/29/21 10/29/21 06:31 06:45 07:00 Temperature Pulse Rate 136 H 139 H 137 H Pulse Rate [ Anterior Bilateral Throughout] Pulse Rate [ From Monitor] Respiratory 44 H 25 H 28 H Rate Respiratory Rate [Anterior Bilateral Throughout] Blood Pressure 107/76 107/76 142/107 O2 Sat by Pulse 95 97 Oximetry 10/29/21 10/29/21 10/29/21 07:15 07:31 07:45 Temperature Pulse Rate 133 H 138 H 135 H Pulse Rate [ Anterior Bilateral Throughout] Pulse Rate [ From Monitor] Respiratory 32 H 46 H 30 H Rate Respiratory Rate [Anterior Bilateral Throughout] Blood Pressure 142/107 142/107 142/107 O2 Sat by Pulse 99 98 98 Oximetry 10/29/21 10/29/21 10/29/21 08:00 08:16 08:30 Temperature 98.7 F Pulse Rate 130 H 120 H 121 H Pulse Rate [ Anterior Bilateral Throughout] Pulse Rate [ 120 H From Monitor] Respiratory 37 H 33 H 30 H Rate Respiratory Rate [Anterior Bilateral Throughout] Blood Pressure 137/115 132/99 132/99 O2 Sat by Pulse 97 97 98 Oximetry 10/29/21 10/29/21 10/29/21 08:46 09:00 09:16 Temperature Pulse Rate 132 H Pulse Rate [ Anterior Bilateral Throughout] Pulse Rate [ From Monitor] Respiratory 30 H 24 34 H Rate Respiratory Rate [Anterior Bilateral Throughout] Blood Pressure 119/80 119/80 127/98 O2 Sat by Pulse 98 99 Oximetry 10/29/21 10/29/21 10/29/21 09:30 09:46 10:00 Temperature Pulse Rate 128 H 130 H Pulse Rate [ Anterior Bilateral Throughout] Pulse Rate [ From Monitor] Respiratory 38 H 23 36 H Rate Respiratory Rate [Anterior Bilateral Throughout] Blood Pressure 129/97 129/97 129/97 O2 Sat by Pulse 99 99 99 Oximetry 10/29/21 10/29/21 10/29/21 10:16 10:30 10:46 Temperature Pulse Rate 134 H 135 H Pulse Rate [ Anterior Bilateral Throughout] Pulse Rate [ From Monitor] Respiratory 26 H 32 H 41 H Rate Respiratory Rate [Anterior Bilateral Throughout] Blood Pressure 133/97 133/97 133/97 O2 Sat by Pulse 99 98 99 Oximetry 10/29/21 10/29/21 10/29/21 11:00 11:16 11:30 Temperature Pulse Rate 138 H 141 H 140 H Pulse Rate [ Anterior Bilateral Throughout] Pulse Rate [ From Monitor] Respiratory 36 H 42 H 45 H Rate Respiratory Rate [Anterior Bilateral Throughout] Blood Pressure 140/105 132/99 132/99 O2 Sat by Pulse 99 98 97 Oximetry 10/29/21 11:46 Temperature Pulse Rate 135 H Pulse Rate [ Anterior Bilateral Throughout] Pulse Rate [ From Monitor] Respiratory 39 H Rate Respiratory Rate [Anterior Bilateral Throughout] Blood Pressure 132/99 O2 Sat by Pulse 98 Oximetry - General physical appearance well developed, no distress, no pain - ENT no hearing loss - Respiratory normal expansion, normal respiratory effort - Abdomen soft, not tender, not distended, other (incision c/d/i, YURIDIA drain serous, left drain unchanged. colostomy pink with small amount of stool and air in bag. midline incision intact and clean) - Labs 10/29/21 Unknown 10/28/21 Unknown
[2021-10-29] MEDS: ALPRAZolam 1 MG TAB PO SCH (13:26)
--- NOTE | 2021-10-29 13:43 | Progress Note ---
Assessment and Plan Patient is 32-year-old female with a past medical history of hypertension, kidney stones, obesity, who was admitted to [facility] on 09/24/2021 for pericolonic abscess secondary to perforated diverticulitis, peritonitis which was further complicated by acute blood loss anemia BRYANNA and acute hypoxic respiratory failure. Perforated diverticulitis Pericolonic abscess Sepsis Anemia BRYANNA Sinus tach Pericardial effusion Echo 10/09/2021-EF 55 to 60%. Normal left ventricular systolic function. Right ventricular systolic function is normal. Left and right atrium are normal in size. Limited echo 10/29/2021-large circumferential pericardial effusion. No clear evidence of tamponade. Significant change from prior echocardiogram Plan: CT yesterday showed large pericardial effusion. Patient had a repeat echo this a.m. Echo results noted above The etiology of this pericardial effusion is unclear but may in fact be reactive Patient remains tachycardic and hypertensive Patient has multifactorial physiologic sinus tachycardia. Increase IV fluids and hold on all antihypertensives. Hold antihypertensives due to pericardial effusion Case discussed with cardiothoracic surgery at [place]. Patient to be transferred to to [facility] for possible pericardial window. Patient appears clinically stable for transfer. Plan of care discussed with Dr. Huddleston, patient, and ICU nurse Patient verbalized understanding and agreement of plan of care Patient seen in conjunction with Dr. Kidd who agrees with this plan of care 60 minutes of critical care time spent in care and coordination of patient - Patient Problems (1) Diverticulitis Current Visit: Yes Status: Acute (2) Colonic diverticular abscess Current Visit: Yes Status: Acute (3) Sepsis Current Visit: Yes Status: Acute (4) Obesity hypoventilation syndrome Current Visit: Yes Status: Acute (5) Appendicitis with perforation Current Visit: Yes Status: Acute (6) Anemia Current Visit: Yes Status: Acute (7) Acute respiratory failure with hypoxia Current Visit: Yes Status: Acute Subjective Date of service: 10/29/21 Principal diagnosis: Septic shock; AHRF; PNA; BRYANNA; s/p appendectomy; VRE infection; Peritonitis Interval history: Patient in bed in no acute distress Patient remains sinus tach rate 130s Objective Vital Signs Temp Pulse Pulse Pulse Resp Resp BP 10/29/21 13:16 119 H 30 H 126/90 10/29/21 13:00 120 H 27 H 126/90 10/29/21 12:46 121 H 27 H 129/97 10/29/21 12:30 125 H 32 H 132/99 10/29/21 12:16 137 H 39 H 132/99 10/29/21 12:00 134 H 117 H 43 H 132/99 10/29/21 11:46 135 H 39 H 132/99 10/29/21 11:30 140 H 45 H 132/99 10/29/21 11:16 141 H 42 H 132/99 10/29/21 11:00 138 H 36 H 140/105 10/29/21 10:46 41 H 133/97 10/29/21 10:30 135 H 32 H 133/97 10/29/21 10:16 134 H 26 H 133/97 10/29/21 10:00 130 H 36 H 129/97 10/29/21 09:46 23 129/97 10/29/21 09:30 128 H 38 H 129/97 10/29/21 09:16 132 H 34 H 127/98 10/29/21 09:00 24 119/80 10/29/21 08:46 30 H 119/80 10/29/21 08:30 121 H 30 H 132/99 10/29/21 08:16 120 H 33 H 132/99 10/29/21 08:00 98.7 F 130 H 120 H 37 H 137/115 10/29/21 07:45 135 H 30 H 142/107 10/29/21 07:31 138 H 46 H 142/107 10/29/21 07:15 133 H 32 H 142/107 10/29/21 07:00 137 H 28 H 142/107 10/29/21 06:45 139 H 25 H 107/76 10/29/21 06:31 136 H 44 H 107/76 10/29/21 06:15 137 H 18 107/76 10/29/21 06:01 134 H 40 H 107/76 10/29/21 05:45 131 H 38 H 107/76 10/29/21 05:31 133 H 37 H 107/76 10/29/21 05:15 128 H 45 H 107/76 10/29/21 05:01 129 H 15 107/76 10/29/21 05:00 80 18 10/29/21 04:45 127 H 23 107/76 10/29/21 04:31 121 H 33 H 107/76 10/29/21 04:15 118 H 38 H 107/76 10/29/21 04:01 120 H 12 107/76 10/29/21 04:00 97.7 F 113 H 131 H 10/29/21 03:45 118 H 21 107/76 10/29/21 03:31 114 H 29 H 107/76 10/29/21 03:15 111 H 29 H 107/76 10/29/21 03:01 118 H 18 107/76 10/29/21 02:45 118 H 39 H 137/111 10/29/21 02:31 122 H 21 137/111 10/29/21 02:15 127 H 25 H 137/111 10/29/21 02:03 119 H 18 134/104 10/29/21 01:31 128 H 36 H 134/104 10/29/21 01:15 129 H 46 H 134/104 10/29/21 01:01 127 H 40 H 134/104 10/29/21 00:45 127 H 40 H 134/104 10/29/21 00:31 122 H 19 148/92 10/29/21 00:15 125 H 41 H 134/104 10/29/21 00:00 97.6 F 122 H 131 H 36 H 134/104 10/28/21 23:45 122 H 38 H 127/100 10/28/21 23:44 140 H 127/100 10/28/21 23:31 124 H 39 H 127/100 10/28/21 23:30 127 H 40 H 127/100 10/28/21 23:22 123 H 47 H 148/92 10/28/21 23:15 117 H 148/92 10/28/21 23:01 122 H 148/92 10/28/21 23:00 120 H 148/92 10/28/21 22:46 122 H 37 H 148/92 10/28/21 22:45 122 H 36 H 148/92 10/28/21 22:31 147 H 43 H 148/92 10/28/21 22:30 142 H 38 H 148/92 10/28/21 22:27 80 148/92 10/28/21 22:16 144 H 36 H 148/92 10/28/21 22:15 141 H 40 H 148/92 10/28/21 22:01 140 H 41 H 134/110 10/28/21 22:00 145 H 40 H 134/110 10/28/21 21:46 142 H 36 H 134/110 10/28/21 21:45 142 H 35 H 134/110 10/28/21 21:31 139 H 37 H 134/110 10/28/21 21:30 140 H 37 H 134/110 10/28/21 21:16 137 H 37 H 134/110 10/28/21 21:15 136 H 27 H 134/110 10/28/21 21:01 136 H 27 H 134/110 10/28/21 21:00 132 H 40 H 138/111 10/28/21 20:46 132 H 23 142/105 10/28/21 20:45 138 H 26 H 142/105 10/28/21 20:31 138 H 36 H 142/105 10/28/21 20:30 135 H 34 H 142/105 10/28/21 20:22 135 H 44 H 162/99 10/28/21 20:15 126 H 139/97 10/28/21 20:01 129 H 22 139/97 10/28/21 20:00 98.5 F 132 H 131 H 10/28/21 19:45 133 H 30 H 139/97 10/28/21 19:31 129 H 44 H 139/97 10/28/21 19:15 128 H 38 H 139/97 10/28/21 19:01 125 H 24 154/118 10/28/21 18:45 133 H 54 H 154/118 10/28/21 18:31 133 H 46 H 154/118 10/28/21 18:15 131 H 44 H 140/110 10/28/21 18:01 131 H 29 H 140/110 10/28/21 17:45 132 H 48 H 140/110 10/28/21 17:37 133 H 140/110 10/28/21 17:31 130 H 35 H 140/110 10/28/21 17:28 98.0 F 10/28/21 16:41 98.2 F 10/28/21 16:31 124 H 44 H 146/110 10/28/21 16:15 122 H 36 H 146/110 10/28/21 16:01 121 H 25 H 146/110 10/28/21 16:00 123 H 131 H 10/28/21 15:31 123 H 50 H 146/108 10/28/21 15:15 123 H 23 139/109 10/28/21 15:00 120 H 44 H 139/109 10/28/21 14:45 118 H 25 H 137/98 10/28/21 14:41 132 H 142/102 10/28/21 14:31 133 H 29 H 138/93 10/28/21 14:30 98.2 F 132 H 27 H 142/102 10/28/21 14:15 98.9 F 134 H 33 H 149/99 10/28/21 14:01 137 H 43 H 141/111 10/28/21 13:45 144 H 29 H 141/111 Pulse Ox 10/29/21 13:16 96 10/29/21 13:00 96 10/29/21 12:46 97 10/29/21 12:30 98 10/29/21 12:16 97 10/29/21 12:00 95 10/29/21 11:46 98 10/29/21 11:30 97 10/29/21 11:16 98 10/29/21 11:00 99 10/29/21 10:46 99 10/29/21 10:30 98 10/29/21 10:16 99 10/29/21 10:00 99 10/29/21 09:46 99 10/29/21 09:30 99 10/29/21 09:16 99 10/29/21 09:00 10/29/21 08:46 98 10/29/21 08:30 98 10/29/21 08:16 97 10/29/21 08:00 97 10/29/21 07:45 98 10/29/21 07:31 98 10/29/21 07:15 99 10/29/21 07:00 97 10/29/21 06:45 95 10/29/21 06:31 10/29/21 06:15 10/29/21 06:01 10/29/21 05:45 10/29/21 05:31 10/29/21 05:15 10/29/21 05:01 10/29/21 05:00 10/29/21 04:45 10/29/21 04:31 97 10/29/21 04:15 98 10/29/21 04:01 97 10/29/21 04:00 99 10/29/21 03:45 96 10/29/21 03:31 10/29/21 03:15 10/29/21 03:01 10/29/21 02:45 10/29/21 02:31 84 10/29/21 02:15 95 10/29/21 02:03 10/29/21 01:31 10/29/21 01:15 10/29/21 01:01 10/29/21 00:45 10/29/21 00:31 10/29/21 00:15 100 10/29/21 00:00 95 10/28/21 23:45 10/28/21 23:44 10/28/21 23:31 10/28/21 23:30 10/28/21 23:22 10/28/21 23:15 10/28/21 23:01 10/28/21 23:00 10/28/21 22:46 97 10/28/21 22:45 95 10/28/21 22:31 96 10/28/21 22:30 94 10/28/21 22:27 10/28/21 22:16 94 10/28/21 22:15 95 10/28/21 22:01 95 10/28/21 22:00 95 10/28/21 21:46 95 10/28/21 21:45 93 10/28/21 21:31 95 10/28/21 21:30 95 10/28/21 21:16 96 10/28/21 21:15 95 10/28/21 21:01 95 10/28/21 21:00 97 10/28/21 20:46 97 10/28/21 20:45 95 10/28/21 20:31 95 10/28/21 20:30 96 10/28/21 20:22 81 L 10/28/21 20:15 94 10/28/21 20:01 93 10/28/21 20:00 99 10/28/21 19:45 93 10/28/21 19:31 94 10/28/21 19:15 95 10/28/21 19:01 94 10/28/21 18:45 92 10/28/21 18:31 93 10/28/21 18:15 93 10/28/21 18:01 94 10/28/21 17:45 99 10/28/21 17:37 10/28/21 17:31 98 10/28/21 17:28 10/28/21 16:41 10/28/21 16:31 100 10/28/21 16:15 10/28/21 16:01 100 10/28/21 16:00 99 10/28/21 15:31 98 10/28/21 15:15 100 10/28/21 15:00 98 10/28/21 14:45 94 10/28/21 14:41 10/28/21 14:31 96 10/28/21 14:30 99 10/28/21 14:15 97 10/28/21 14:01 96 10/28/21 13:45 99 - Physical Examination HEENT: Positive: PERRL Neck: Positive: trachea midline Cardiac: Positive: Reg Rate and Rhythm Lungs: Positive: Decreased Breath Sounds Neuro: Positive: Grossly Intact Abdomen: Positive: Soft, Tender Skin: Negative: Rash, Suspicious Lesions Extremities: Present: upper extr. pulses. Absent: edema - Labs and Meds CBC 10/29/21 Range/Units Unknown WBC 11.7 H (4.5-11.0) K/mm3 RBC 2.76 L (3.65-5.03) M/mm3 Hgb 8.1 L (10.1-14.3) gm/dl Hct 24.5 L (30.3-42.9) % Plt Count 473 H (140-440) K/mm3 - Imaging and Cardiology Echo: report reviewed - Telemetry EKG Rhythm: Sinus Tachycardia - EKG Sinus rhythms and dysrhythmias: sinus tachycardia - Allied health notes Allied health notes reviewed: nursing
--- NOTE | 2021-10-29 14:48 | Discharge Summary ---
Providers - Providers Date of Admission: 09/24/21 18:07 Date of discharge: 10/29/21 Attending physician: ELLIE VEGA MD 09/24/21 18:04 Consult to Physician [CONS] Urgent Comment: Consulting Provider: CICI HUDDLESTON Physician Instructions: Reason For Exam: Diverticulitis with abscess 09/27/21 09:10 Physical Therapy Evaluation and Treat [CONS] Stat Comment: Reason For Exam: eval and treat 10/02/21 07:58 Consult to Physician [CONS] Routine Comment: Consulting Provider: KENNY DE LA PAZ Physician Instructions: Reason For Exam: Antibiotic management 10/02/21 12:19 Consult to Dietitian/Nutrition [CONS] Routine Physician Instructions: surgery Reason For Exam: consult for PPN. npo due to major recent abdominal Reason for Consult: Write/Manage TPN/PPN 10/03/21 08:59 Consult to Dietitian/Nutrition [CONS] Routine Physician Instructions: Reason For Exam: Albumin 1.6 Reason for Consult: Malnutrition 10/03/21 09:00 Consult to Physician [CONS] Routine Comment: Consulting Provider: MADALYN SMITH Physician Instructions: Reason For Exam: BRYANNA in the setting of recent surgeries 10/04/21 10:43 Consult to Physician [CONS] Routine Comment: Consulting Provider: JULIO CÉSAR RAMOS Physician Instructions: Reason For Exam: possible left ureter injury 10/05/21 10:48 Midline [Consult to PICC Line RN] [CONS] Routine Reason For Exam: needs IV access Type Line:: Midline 10/07/21 12:59 Physical Therapy Evaluation and Treat [CONS] Routine Comment: Reason For Exam: needs mobilization after major surgery 10/08/21 21:00 Consult to Dietitian/Nutrition [CONS] Routine Physician Instructions: Reason For Exam: Reason for Consult: Evaluate nutritional intake 10/08/21 21:37 Consult to Dietitian/Nutrition [CONS] Routine Physician Instructions: Reason For Exam: Reason for Consult: Evaluate nutritional intake 10/08/21 22:15 Consult to Physician [CONS] Stat Comment: Consulting Provider: JEANNE SINGH Physician Instructions: Reason For Exam: Respiratory Distress 10/18/21 12:36 Physical Therapy Evaluation and Treat [CONS] Routine Comment: Reason For Exam: extubation 10/18/21 12:37 Occupational Therapy Evaluate and Treat [CONS] Routine Comment: Reason For Exam: post extubation, debility 10/20/21 16:01 Consult to Mental Health [CONS] Routine Reason For Exam: anxiety Consult to Physician [CONS] Routine Comment: Consulting Provider: DAR ALCANTARA Physician Instructions: Reason For Exam: anxiety 10/25/21 16:05 Consult to PICC Line RN [CONS] Routine Reason For Exam: tpn Type Line:: PICC 10/27/21 10:15 Consult to Physician [CONS] Routine Comment: dimitry martin/ sol Consulting Provider: TAY HEWITT Physician Instructions: Reason For Exam: persistant ST Primary care physician: NEONATAL NURSE Hospitalization Reason for admission: abdominal pain Condition: Stable Hospital course: History Interval history: This is a 31-year-old female with obesity and nephrolithiasis admitted with complaints of abdominal pain, lower back pain, nausea no with episodes of vomiting over the past dayon 09/24. Patient underwent a CT scan of the abdomen and pelvis and was found to have acute diverticulitis complicated by sepsis and was admitted to the medical floor initiated sepsis protocol. Surgery team was consulted in the emergency department. ICU Course to Date: 10/09: Intubated and sedated, RASS -1 to -2. Recent CXR noted with worsen bilateral opacities with persistent leukocytosis, elevated lactic, and now on 2 pressors. Patient remains afebrile, and already on IV Abx per ID. Will swab patient for COVID. Given recent surgery orders placed for CTA chest, CT Abd/plevis. And also BLE dopplers due to elevated D-Dimer. Renal function is improving, additional IVF to flush out kidney post contrast, Nephrology is also following. Continue TPN and NGT to LIS. 10/10: COVID PCR negative. CTA chest and Abd/plevis noted. No evidence of PE. Patient received X1 dose of 20mg IV lasix per Nephro for pulmonary edema, this am CXR with some improvement, renal function is also improving. Wean vent setting as tolerated per CCM. Plan for possible CT guided drainage placement in IR tomorrow. Continue TPN and NGT to LIS. 10/11: Patient with anemia, 1 unit PRBC, scheduled for CT-guided drain image of air pocket. Will place on CPAP on return. Slightly worsening renal function but nephrology is on the case. 10/12: Taken to OR today for diverting ileostomy, given 3 units PRBC yesterday and appropriate response. Surgical culture grew yeast and ID added added fluconazole. 10/13: Hypomagnesemia repleted, renal function improving. Patient remains sedated with fentanyl and propofol. Updated sister and father at bedside. Ureteral stents removed at bedside. Plan to to take patient to the OR tomorrow for second look, abdominal washout, colostomy creation on hold for abdominal closure by manjit su. We will hold p.m. dose of heparin. 10/14: Plan to take patient back to OR today, prophylactic anticougulation on hold. 2 units prbc on hold for surgery. Plan to close abd and colostomy creat ion. Vent weaning on hold till abd closure 10/15: Renal function remains stable, leukocytosis increased, remains sedated on propofol and fentanyl and on mechanical ventilation. Plan is to hold SBT until the weekend. Repeat renal ultrasound pending per urology. 10/16: no acute events overnight. remains on fent and propofol. plan to sbt on monday. 10/17: noted drop in hgb from 8 to 7.2 and will given one unit prbc. remains on fent/propofol. CARMEN overnight. Will retract OETT per rad reading. 10/18: Febrile this am with worsen leukocytosis. Continue IV Abx per ID, orders placed for cultures. Patient tolerating PST, d/w CCM plan for possible extubation today. Abdominal insicion and colostomy noted, no signs of any complications noted. Continue TPN and NGT to LIS per General surgery. 10/19: S/p extubation, now stable on 2L NC. Fevers improved, cultures pending continue IV Abx per ID. Patient is still with absent bowel sounds, continue TPN and NGT to LIS per General surg. Okay to remove brantley per Urology. Electrolytes repleted, repeat labs in the am. Patient is stable for transfer to [facility]. 10/20: Continue current management. Patient remained stable on 2 L of oxygen but appears anxious with increased tachypnea. We will add incentive spirometer. Will check and monitor intermittent x-rays. Continue antibiotics per infectious disease. Renal function has normalized. We will good urine output. We will check blood work in a.m. Awaiting return of bowel function 10/21: Patient on BiPAP this am, xray from yesterday concerning for Aspiration pneumonia vs atalalectsis, patient still with increased WOB although improved compared to yesterday. Leukocytosis a bit worse, will continue to monitor and discuss with ID if more broad spectrum therapy should be considered. She is currently on Bactrim for positive tracheal aspirate with Stenotrophomonas. Continue aspiration precautions. may need repeat xray but will discuss with pulmonary. Continue Strict NPO and Aspiration precautions. Continues on TPN. Prognosis guarded. ?Third spacing 10/22: Back in the ICU due to hypoxia, increased WOB, and tachycardia requiring continuous Bipap. Patient is now on precedex gtt for increased anxiety. Repeat BLE doppler with no evidence of DVT . D/W [facility] paln for CTA chest and CT abd/Pelvis today. Mild improvement in leukocytosis today, patient is afebrile, continue IV Abx per ID. Remains on TPN and NGT to LIS. 10/23: CTA chest and CT Abd/Pelvis noted- no evidence of PE, multiloculated collection along the left mid abdomen have all decreased in size, with persistent anasarca. Will started IV Lasix [id number]. Plan to wean to NC today, continue Bipap Qhs or as needed. Close monitoring of renal function and electrolytes, replete as needed. Plan to Clamp NGT today per General Surgery. Continue TPN. 10/24: Patient tolerated IV lasix, stable on 3L NC this am, no respiratory distress noted. Continue gentle diurese, IV Lasix X3 doses. Remains on NGT clamped per Gen Surgery. Patient is tolerating ice chips. Patient is okayed for sips of water per General Surgery. Continue TPN and wound care management per General Surgery. 10/25: We will discontinue Precedex, start as needed Haldol and order PICC line. Magnesium repleted. Continues on TPN. 10/26: Patient is tachycardic and has a slight increase in leukocytosis. She continues to have intermittent low-grade fevers. Remains off antibiotics per ID. Continue n.p.o. and resume NG tube to low normal suction. Patient will be transferred to IMCU. Might warrant further testing if leukocytosis and fevers continue. Long discussion at bedside with Dr. Huddleston and Dr. Vega. 10/27: Due to persistent tachycardia surgery would like cardiology consulted. Patient was started on a beta-hosea. Psych has signed off on the patient. Leukocytosis improving. Afebrile for 24 hours. Given mag citrate by surgery 10/28: Patient is complaining of chest pain which feels like pressure mid chest with radiation to right arm, CTA chest ordered. Cardio increased BB. Added scheduled buspar/ativan. CTA chest shows large pericardial effusion. Dr. Ruvalcaba and Gary aware. Ordered stat 2 d echo. Stanford Miranda EXTENSION EDGER aware of findings who relayed read to Dr. Hewitt. Per Dr. Hewitt CT tends to overread by cardiac fusion and as long as patient is hemodynamically stable (clarification: In the sense of blood pressure as patient is already tachycardic) echocardiogram will be done fasting in the morning. No pharmacy technician trainee available for echocardiogram tonight. IMCU transfer cancelled. 10/29: D/w Cardiology. Large circumferential pericardial effusion without tamponade physiology was visualized on echocardiogram. Likely contributory to multifactorial sinus tachycardia. Patient remains hypertensive. Cardiology recommends increased fluid admin and holding anti-HTN meds. Referral made to [place] for CTS completion of pericardial window. Pending bed availability. Assessment and plan: This is a 31-year-old female with obesity and nephrolithiasis admitted with pericolonic abscess secondary to contained perforated diverticulitis, peritonitis complicated by acute blood loss anemia, acute kidney injury and acute hypoxic respiratory failure. Neuro: Anxiety -s/p precedex gtt -prn haldol and ativan -Scheduled Ativan and BuSpar -Avoid delirium -Reorientation as needed -Maintain sleep-wake cycle -Psych/mental health consulted, appreciate recommendations -continue ativan prn and signed off 10/27 Cardiac: Pericardial Effusion -Cardiology consulted, patient recommendation -Blood pressure monitoring per protocol -s/p vasopressor support with Levophed and vasopressin -Echocardiogram shows normal right ventricular function, LVEF 55 to 60% -Patient complaining of midsternal chest pressure with radiation to right arm, tachycardic to 130s/140s -Troponin negative -ECG shows no acute findings -Increasing beta-hosea per cardiology -10/28 CTA chest shows no evidence of pulmonary embolism, large pericardial effusion increased since exam to 6 days ago, trace left pleural effusion, complete compressive atelectasis of left lower lobe. -Dr. Flores and Dr Vega aware -Stat 2d echo : large circumferential pericardial effusion. no tamponade physiology apparent. -Cardiology aware of findings, has initiated transfer with [place] for CTS completion of pericardila window. Pending bed availability. 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, diverticulitis with abscess, moderate protein calorie malnutrition, h/o obesity -Surgery consulted, appreciate recommendations -s/p ex lap with washout of pericolonic abscess and drain placement on 09/26/2021 -s/p open left hemicolectomy, appendectomy and partial omentectomy on 10/01 -s/p colostomy creation with closure of abdomen on 10/14/2021 -10/09 CT abdomen/pelvis showed a new collection of air within the left midabdomen -CT guided drain placement with IR -24 hours: -1250 mL -medial abd 950 mL -Right lower abdomen 550 mL -PPI -TPN -PICC line placed 10/27 -CLD : Acute kidney injury secondary to vasomotor nephropathy versus contrast induced (resolved) -Nephrology and urology consulted, appreciate recommendations -Strict intake and output -Renally dose medications -Avoid nephrotoxic medications -Daily weights -s/p IV Lasix nephrology -Trend BMP -S/p bilateral ureteral stents -10/12 Intra-Op cystoscopy completed and bilateral ureteral stents placed (removed 10/13) -Repeat renal US noted -Half-normal saline x1 L for renal protection strategies post CTA chest with contrast ID: Acute sepsis secondary to pericolonic abscess with appendiceal rupture fistulization, peritonitis, VRE and jean marie albicans in wound culture -Infectious disease consulted, appreciate recommendations -COVID 19 PCR negative -S/p drain placement and diagnostic laparotomy on 09/26 -Antibiotic therapy per ID -completed course -f/u blood culture -Monitor WBC and temperature curve Endo: NAD -Avoid hypoglycemia -SSI -Accu-Cheks q6 -Long-acting insulin, titrate as needed Heme: Acute blood loss anemia, elevated D-dimer, hematuria, leukocytosis, thrombocytosis -Patient had hematuria after ureteral injury sustained from surgical procedures -Urology consulted, appreciate recommendation -10/09 CTA chest with no evidence of PE. Findings suggesting multifocal pneumonia vs pulmonary edema -10/28 CTA chest with no evidence of PE, pericardial effusion, near complete compressive atelectasis of left lower lobe -Bilateral lower extremity Doppler ultrasound shows no sonographic evidence of DVT however shows subcutaneous edema in lower extremities -Trend CBC -Transfuse hemoglobin less than 7 -S/p 7 units PRBC -Monitor for signs of bleeding -SCDs to BLE while in bed -Heparin subq The high probability of a clinically significant, sudden or life threatening deterioration of the [multi] system(s) required my full and direct attention, intervention and personal management. The aggregate critical care time was [90] minutes. This time is in addition to time spent performing reported procedures but includes the following: [x] Data Review and interpretation [x] Patient assessment and monitoring of vital signs [x] Documentation [x] Medication orders and management Disposition Plan: icu Total Time Spent with Patient (Minutes): 60 Disposition: ADMITTED INPATIENT Final Discharge Diagnosis (Prints w/discharge instructions): pericolonic abscess secondary to contained perforated diverticulitis, peritonitis complicated by acute blood loss anemia, acute kidney injury and acute hypoxic respiratory failure. Pericarditis Time spent for discharge: 35 Core Measure Documentation - Palliative Care Palliative Care/ Comfort Measures: Not Applicable - Core Measures Any of the following diagnoses?: none Exam - Physical Exam Narrative exam: General appearance: Present: no acute distress, other (laible mood) - EENT Eyes: Present: PERRL, EOM intact - Neck Neck: Present: normal ROM - Respiratory Respiratory effort: labored - Cardiovascular +Sinus tachycardia Rhythm: regular Heart Sounds: Present: S1 & S2. Absent: systolic murmur, diastolic murmur - Extremities Extremities: no ischemia, pulses intact, pulses symmetrical, No edema, normal temperature, normal color Peripheral Pulses: within normal limits - Abdominal General gastrointestinal: soft, non-tender, non-distended, hypoactive bowel sounds - Integumentary Integumentary: Present: warm, dry - Psychiatric Psychiatric: cooperative, agitated - Neurologic Neurologic: CNII-XII intact, no focal deficits, moves all extremities - Allied Health Allied health notes reviewed: nursing, RT - Constitutional Vitals: Temp Pulse Resp BP Pulse Ox 98.3 F 126 H 34 H 110/77 99 10/29/21 12:00 10/29/21 14:00 10/29/21 14:00 10/29/21 14:00 10/29/21 14:00 Plan Follow up with: PRIMARY CARE, [Primary Care Provider] - 3-5 Days
[2021-10-29] MEDS ORDERED: METOPROLOL TARTRATE 5 MG/5 ML INJ IV ONE (18:15)
[2021-10-29 18:36] VITALS: BP 135/118
[2021-10-29] MEDS ORDERED: ACETAMINOPHEN 325 MG TAB PO SCH (19:00)
[2021-10-29] MEDS ORDERED: TOTAL PARENTERAL NUTRITION 1,999.92 ML IV SCH (20:00)
== END 2021-10-29 19:20 | disposition short-term general hospital (02) | DRG 853 ==
LOC: ED 12:05 → 3A 18:07 → CC1 10-08 21:12 → IMCU 10-19 17:47 → CC1 10-21 17:03
PROVIDERS: ADMIT Internal Medicine; ATTEND Internal Medicine
PROC: 0DTJ4ZZ Resection of Appendix, Percutaneous Endoscopic Approach (ICD-10-PCS; 2021-10-01)
PROC: 0DTG0ZZ Resection of Left Large Intestine, Open Approach (ICD-10-PCS; 2021-10-01)
PROC: 0DBU0ZZ Excision of Omentum, Open Approach (ICD-10-PCS; 2021-10-01)
PROC: 30233N1 Transfusion of Nonautologous Red Blood Cells into Peripheral Vein, Percutaneous Approach (ICD-10-PCS; 2021-10-03)
PROC: 05HC33Z Insertion of Infusion Device into Left Basilic Vein, Percutaneous Approach (ICD-10-PCS; 2021-10-05)
PROC: 5A1955Z Respiratory Ventilation, Greater than 96 Consecutive Hours (ICD-10-PCS; 2021-10-08)
PROC: 0BH17EZ Insertion of Endotracheal Airway into Trachea, Via Natural or Artificial Opening (ICD-10-PCS; 2021-10-08)
PROC: 4A033R1 Measurement of Arterial Saturation, Peripheral, Percutaneous Approach (ICD-10-PCS; 2021-10-08)
PROC: 5A09357 Assistance with Respiratory Ventilation, Less than 24 Consecutive Hours, Continuous Positive Airway Pressure (ICD-10-PCS; 2021-10-08)
PROC: 02HV33Z Insertion of Infusion Device into Superior Vena Cava, Percutaneous Approach (ICD-10-PCS; 2021-10-08)
PROC: B548ZZA Ultrasonography of Superior Vena Cava, Guidance (ICD-10-PCS; 2021-10-08)
PROC: 0W9G30Z Drainage of Peritoneal Cavity with Drainage Device, Percutaneous Approach (ICD-10-PCS; 2021-10-11)
PROC: 0DNW0ZZ Release Peritoneum, Open Approach (ICD-10-PCS; 2021-10-12)
PROC: BT141ZZ Fluoroscopy of Kidneys, Ureters and Bladder using Low Osmolar Contrast (ICD-10-PCS; 2021-10-12)
PROC: 0D1E0Z4 Bypass Large Intestine to Cutaneous, Open Approach (ICD-10-PCS; 2021-10-14)
PROC: 5A09457 Assistance with Respiratory Ventilation, 24-96 Consecutive Hours, Continuous Positive Airway Pressure (ICD-10-PCS; 2021-10-21)
PROC: 0DJD4ZZ Inspection of Lower Intestinal Tract, Percutaneous Endoscopic Approach (ICD-10-PCS; principal; 2021-10-24)
PROC: 0W9F40Z Drainage of Abdominal Wall with Drainage Device, Percutaneous Endoscopic Approach (ICD-10-PCS; 2021-10-24)
PROC: 02HV33Z Insertion of Infusion Device into Superior Vena Cava, Percutaneous Approach (ICD-10-PCS; 2021-10-26)
DX: A41.89 Other specified sepsis (principal); J96.01 Acute respiratory failure with hypoxia; N17.0 Acute kidney failure with tubular necrosis; R65.21 Severe sepsis with septic shock; K35.32 Acute appendicitis with perforation, localized peritonitis, and gangrene, without abscess; K57.20 Diverticulitis of large intestine with perforation and abscess without bleeding; E66.2 Morbid (severe) obesity with alveolar hypoventilation; D62 Acute posthemorrhagic anemia; E44.0 Moderate protein-calorie malnutrition; I31.3 Pericardial effusion (noninflammatory); J98.11 Atelectasis; Z68.36 Body mass index [BMI] 36.0-36.9, adult; R31.0 Gross hematuria; E87.6 Hypokalemia; E88.09 Other disorders of plasma-protein metabolism, not elsewhere classified; R73.9 Hyperglycemia, unspecified; E27.9 Disorder of adrenal gland, unspecified; N20.0 Calculus of kidney; Z82.49 Family history of ischemic heart disease and other diseases of the circulatory system; K59.00 Constipation, unspecified; Z71.3 Dietary counseling and surveillance; F41.1 Generalized anxiety disorder; E83.39 Other disorders of phosphorus metabolism
CPT/HCPCS: 10160; 36415; 36600; 71045; 71046; 71275; 74018; 74176; 74177; 74178; 74420; 76770; 77012; 80048; 80053; 81001; 81025; 82140; 82550; 82565; 82728; 82803; 82962; 83615; 83735; 84100; 84145; 84478; 84484; 85007; 85014; 85018; 85025; 85027; 85379; 85610; 85730; 86140; 86850; 86900; 86901; 86920; 87040; 87070; 87076; 87086; 87116; 87186; 87205; 88304; 88305; 88307; 93005; 93306; 93970; 94002; 94003; 94640; 94660; 94760; G0378; J1815; J2354; J3260; J3490; J7060; J7120; J7121; J7510; J7517; J9280; Q0162; Q9967; C1726; C1758; C1769; C8929; C9113; J0131; J0330; J0610; J0692; J0878; J1100; J1170; J1200; J1450; J1630; J1644; J1650; J1885; J1940; J2020; J2060; J2150; J2175; J2185; J2250; J2270; J2405; J2543; J2704; J2710; J2765; J3010; J3475; J3480; J7030; J7040; J7050; P9016; P9045; P9047; Q9963; Q9968; U0003